=== PATIENT | female | born 1985 | race Caucasian/White ===

== ENCOUNTER 2019-11-11 14:47 | Outpatient (CLI) | payer OTHER, SELFPAY ==
--- NOTE | ~2019-11-11 | XR_ITS ---
XR chest 2V DATE: 11/11/2019 15:07 INDICATION: Abnormal breath sounds TECHNIQUE: PA and lateral views COMPARISON: None FINDINGS: Normal heart size. No hilar or mediastinal enlargement. No pulmonary infiltrate or consolid ation, pleural effusion or pulmonary vascular congestion or pneumothorax. IMPRESSION: No active cardiopulmonary disease Reviewed, dictated and finalized at location A.
== END 2019-11-11 14:48 | disposition home or self-care (01) ==
PROVIDERS: PCP Nurse Practitioner; Visit Provider Nurse Practitioner
DX: R06.89 Other abnormalities of breathing (principal)
CPT/HCPCS: 71046

== ENCOUNTER 2020-03-24 19:05 | Emergency (ER) | payer OTHER, SELFPAY ==
[2020-03-24 19:10] VITALS: BP 160/107; PULSE 107; RESP 16; TEMP 37.5; O2SAT 100
--- NOTE | 2020-03-24 19:11 | ED.SKABFB ---
HPI - Skin/Abscess/Foreign Bdy General Chief complaint: Skin/Abscess/Foreign Body Stated complaint: biters on arms Time Seen by Provider: 03/24/20 19:11 Source: patient Mode of arrival: ambulatory History of Present Illness HPI narrative: insect bites to arms and legs. Patient states she spent the night at a [employer] last night patient states she woke up the next morning with bug bites nonlinear to her arms and legs. Very itchy. Patient denies any shortness of breath no chest pain. Patient is taking Benadryl for the itchiness. MD complaint: insect bite/sting Location: generalized Related Data Home Medications Medication Instructions Recorded Confirmed albuterol sulfate 2 puff INHALATION QID PRN 03/24/20 03/24/20 atorvastatin 03/24/20 metformin 03/24/20 Allergies Allergy/AdvReac Type Severity Reaction Status Date / Time meperidine Allergy Unknown Rash Verified 03/24/20 19:23 sulfamethoxazole Allergy Unknown Unknown Verified 03/24/20 19:23 tramadol Allergy Unknown HIVES Verified 03/24/20 19:23 trimethoprim Allergy Unknown Unknown Verified 03/24/20 19:23 varenicline Allergy Unknown SWELLING Verified 03/24/20 19:23 IN THROAT metronidazole [From Flagyl] AdvReac Intermediate Nausea and Verified 03/24/20 19:24 Vomiting Review of Systems Review of Systems: Narrative: CONSTITUTIONAL: Denies fever, chills, or sweats. EYES: Denies visual changes, redness, or discharge. ENT: Denies rhinorrhea, congestion, sore throat, or otalgia. CARDIOVASCULAR: Denies chest pain, palpitations, or edema. RESPIRATORY: Denies cough or dyspnea. GASTROINTESTINAL: Denies abdominal pain, nausea, vomiting, or diarrhea. GENITOURINARY: Denies dysuria or hematuria. SKIN: Denies rash or itching. MUSCULOSKELETAL: Denies back pain, joint pain, or myalgia. NEUROLOGIC: Denies headache, numbness, or weakness. PSYCHIATRIC: Denies anxiety or depression. PMFSH Comments At time of signature, agree with nursing past medical, surgical, social and family history. There is no relevant family history pertinent to the presenting complaint Exam Narrative: Exam Narrative: GENERAL: Well-appearing, well-nourished, and in no acute distress. HEAD: Normocephalic, atraumatic. EYES: PERRLA and EOMI. ENT: Nares clear, no rhinorrhea or epistaxis. Mucous membranes moist. NECK: Supple. CHEST: Clear to auscultation. No respiratory distress. HEART: Regular rate and rhythm. No murmur heard. Normal peripheral pulses. ABDOMEN: Soft, nontender, nondistended, normal active bowel sounds. EXTREMITIES: Normal range of motion. No edema. SKIN: Warm, dry, no rash. Insect bites in a linear formation consistent with bedbug bites NEURO: No focal deficits. Alert and oriented x3. [place] Coma Scale Eye Opening: Spontaneous 4 [place] Coma Scale Motor: Obeys Commands 6 [place] Coma Scale Verbal: Oriented 5 [place] Coma Scale Total 15 Course Vital Signs Vital signs: Vital Signs Temperature 37.5 C 03/24/20 19:10 Pulse Rate 107 H 03/24/20 19:10 Respiratory Rate 16 03/24/20 19:10 Blood Pressure 160/107 H 03/24/20 19:10 Pulse Oximetry 100 03/24/20 19:10 Temperature 37.5 C 03/24/20 19:10 Pulse Rate 107 H 03/24/20 19:10 Respiratory Rate 16 03/24/20 19:10 Blood Pressure 160/107 H 03/24/20 19:10 Pulse Oximetry 100 03/24/20 19:10 Please MARGARITA schedule a followup visit with your personal physician for further evaluation and treatment. Including recheck and discussion of your blood pressure. If your symptoms persist, change or worsen significantly before you can contact your personal physician then please, without delay, go to the emergency department for further evaluation MDM - Skin/Abscess/Foreign Bdy Differential Diagnosis Differential diagnosis: Likely abscess of skin or subcutaneous tissue, viral exanthem, dermatophytosis, urticaria, herpes zoster, allergic reaction to drug, cellulitis, eczema, insect bites, impetigo and contact dermatitis Crit
== END 2020-03-24 19:32 | disposition home or self-care (01) ==
PROVIDERS: Emergency Provider Nurse Practitioner Family; PCP Nurse Practitioner
DX: S40.862A Insect bite (nonvenomous) of left upper arm, initial encounter (principal); S40.861A Insect bite (nonvenomous) of right upper arm, initial encounter; S80.862A Insect bite (nonvenomous), left lower leg, initial encounter; S80.861A Insect bite (nonvenomous), right lower leg, initial encounter; W57.XXXA Bitten or stung by nonvenomous insect and other nonvenomous arthropods, initial encounter; E78.00 Pure hypercholesterolemia, unspecified; I10 Essential (primary) hypertension; J45.909 Unspecified asthma, uncomplicated
CPT/HCPCS: 99213; G0463

== ENCOUNTER 2020-06-24 12:07 | Emergency (ER) | payer OTHER, SELFPAY ==
--- NOTE | ~2020-06-24 | XR_ITS ---
EXAMINATION: XR chest 1V portable DATE: 06/24/2020 12:35 INDICATION: COVID positive. Shortness of breath. TECHNIQUE: frontal view of the chest was obtained. COMPARISON: Chest radiograph dated 11/11/2019 FINDINGS: Small opacity at the lateral left lower lung zone. Right lung remains clear. No pulmonary edema, pleu ral effusion or pneumothorax. The cardiomediastinal silhouette is normal. Suggestion of coronary ariana ry stenting. IMPRESSION: 1. Small opacity at the left lower lung zone which could represent atelectasis or pneumonia. Reviewed, dictated and finalized at location A. [employer]
[2020-06-24 12:17] VITALS: BP 188/90; PULSE 125; RESP 22; O2SAT 96
--- NOTE | 2020-06-24 12:17 | ECG_ITS ---
Measurements Intervals [place] Rate: 116 P: 18 MT: 137 QRS: 9 QRSD: 93 T: -10 QT: 320 QTc: 445 Interpretive Statements SINUS TACHYCARDIA VOLTAGE CRITERIA FOR LVH BORDERLINE ST-T WAVE ABNORMALITY- ANTEROLAT/INF LEADS BASELINE WANDER- V2-V4 ABNORMAL ECG Electronically Signed On 06-24-2020 16:29:00 HEEL SLUGGER by Arnav Scott D.O.
--- NOTE | 2020-06-24 12:33 | ED.SOB ---
HPI - SOB/Dyspnea General Chief Complaint: Shortness of Breath/Dyspnea Stated Complaint: covid positive, shortness of breath Time Seen by Provider: 06/24/20 12:28 History of Present Illness HPI Narrative: 35 yo female presents to the Ed for COVID-19. She was recently diagnosed with COVID-19 and she is concerned that her symptoms are not improving. She reports cough, SOB, pleuritic chest pain, nausea, diarrhea and body aches. Related Data Home Medications Medication Instructions Recorded Confirmed albuterol sulfate 2 puff INHALATION QID PRN 03/24/20 03/24/20 atorvastatin 03/24/20 metformin 03/24/20 Allergies Allergy/AdvReac Type Severity Reaction Status Date / Time meperidine Allergy Unknown Rash Verified 03/24/20 19:23 sulfamethoxazole Allergy Unknown Unknown Verified 03/24/20 19:23 tramadol Allergy Unknown HIVES Verified 03/24/20 19:23 trimethoprim Allergy Unknown Unknown Verified 03/24/20 19:23 varenicline Allergy Unknown SWELLING Verified 03/24/20 19:23 IN THROAT metronidazole [From Flagyl] AdvReac Intermediate Nausea and Verified 03/24/20 19:24 Vomiting Review of Systems Review of Systems: All systems reviewed & are unremarkable except as noted in HPI and below (HPI and below) Constitutional: Constitutional: Denies fever(s) ENT: Denies dizziness Cardiovascular: Cardiovascular: Reports chest pain Respiratory: Respiratory: Reports chest congestion, Reports cough and Reports dyspnea Gastrointestinal: Gastrointestinal: Denies abdominal pain, Reports diarrhea and Reports nausea Genitourinary: Genitourinary: Denies dysuria Musculoskeletal: Musculoskeletal: Reports myalgias PMFSH Past Medical History Medical History (Updated 06/26/20 @ 15:32 by Dany Gaitan MD) Asthma Diabetes mellitus Social History Social History Gender identity (if verbalized by the patient): Female Exam Const: General: no acute distress, alert and ill appearing Nutritional Appearance: well nourished Orientation/consciousness: patient oriented x3 HENMT: Head: normal to inspection Neck: Neck: normal visual inspection Chest: Chest palpation & inspection: tenderness Resp: Effort & Inspection: normal respiratory effort Auscultation: clear to auscultation bilaterally Cardio: Rate: tachycardic Rhythm: regular rhythm Heart sounds: no murmurs GI: GI Palp: Yes Soft to palpation and No Tenderness to palpation present (GI) Skin: General skin exam: normal color Neuro: General: patient oriented x3, moves all extremities, no meningeal signs, no focal motor deficits and CN's II-XI intact bilaterally Speech: normal speech Gait exam (Neuro): Normal gait present Extrem: General: normal to inspection Psych: Affect: Anxious affect present Course Vital Signs Vital signs: Vital Signs Pulse Rate 125 H 06/24/20 12:17 Respiratory Rate 22 H 06/24/20 12:17 Blood Pressure 188/90 H 06/24/20 12:17 Pulse Oximetry 96 06/24/20 12:17 Pulse Rate 88 06/24/20 14:56 Respiratory Rate 18 06/24/20 14:56 Blood Pressure 123/90 06/24/20 14:56 Pulse Oximetry 99 06/24/20 14:56 MDM - SOB/Dyspnea MDM Narrative Medical decision making narrative: Vitals improved with treatment. She appears ill, but not toxic. She does not need hospitalization at this time. Differential Diagnosis Differential diagnosis: Likely community acquired pneumonia and other (COVID-19, dehydration, PE) Medical Records Attestation: I reviewed the patient's medical records. Lab Data Attestation: I reviewed the patient's lab results. Result diagrams: 06/24/20 12:37 06/24/20 12:37 Labs: Lab Results 06/24/20 06/24/20 Range/Units 12:37 12:37 WBC 4.8 (4.5-10.0) K/mm3 RBC 4.92 (4.2-5.4) M/mm3 Hgb 15.1 H (12.0-15.0) g/dL Hct 44.1 (37.0-47.0) % MCV 89.6 (80-100) fl MCH 30.7 (26-34) pg MCHC 34.2 (32-36) g/dl RDW 13.9 (11.5-14.5) % Plt Count 182 (150-375)
[2020-06-24 12:49] LABS: Basophils Percent Auto 0.2 % (0.2-1.2); Eosinophils Absolute Auto 0.1 K/mm3 (0-0.3); Eosinophils Percent Auto 1.2 % (0-4.4); Hematocrit 44.1 % (37.0-47.0); Hemoglobin 15.1 g/dL (12.0-15.0); Immature Granulocyte Absolute 0.02 K/mm3 (0.00-0.031); Immature Granulocyte Percent A 0.4 % (0-0.5); Immature Platelet Fraction Pct 2.3 % (0.9-11.2); Lymphocytes Percent Auto 35.2 % (18.3-44.2); Mean Corpuscular HGB Conc 34.2 g/dl (32-36); Mean Corpuscular Hemoglobin 30.7 pg (26-34); Mean Corpuscular Volume 89.6 fl (80-100); Mean Platelet Volume 9.9 fl (7.4-10.4); Monocytes Absolute Auto 0.5 K/mm3 (0.1-0.6); Monocytes Percent Auto 10.1 % (2.6-8.5); Neutrophils Absolute Auto 2.6 K/mm3 (1.3-6.7); Neutrophils Percent Auto 52.9 % (45.5-73.1); Platelet Count Result 182 k/mm3 (150-375); Red Blood Count 4.92 M/mm3 (4.2-5.4); Red Cell Distribution Width 13.9 % (11.5-14.5); White Blood Count 4.8 K/mm3 (4.5-10.0)
[2020-06-24 13:05] LABS: Anion Gap 11 mmol/L (8-16); Blood Urea Nitrogen 13 mg/dL (7-17); Carbon Dioxide 22 mmol/L (22-30); Chloride 105 mmol/L (98-107); Estimated CRCL calculation 143 ml/min; Estimated Glomerular Filt Rate > 60; Glucose 127 mg/dL (65-105); Sodium 138 mmol/L (137-145)
[2020-06-24 13:38] VITALS: BP 133/98; PULSE 107; PULSE 97; RESP 18; O2SAT 96
[2020-06-24] MEDS: KETOROLAC 30 MG/ML VIAL (*BKC) IV PUSH (13:38)
[2020-06-24] MEDS: SODIUM CHLORIDE 0.9% IV 1,000 ML 999 ML IV CONT (13:38)
[2020-06-24] MEDS: DEXTROMETHORPHAN POLISTIREX 60 MG/10 ML SYRINGE PO (14:20)
[2020-06-24 14:56] VITALS: BP 123/90; PULSE 88; RESP 18; O2SAT 99
== END 2020-06-24 14:57 | disposition home or self-care (01) ==
PROVIDERS: Emergency Medicine; Emergency Provider Emergency Medicine; PCP Nurse Practitioner
DX: U07.1 COVID-19 (principal); J45.909 Unspecified asthma, uncomplicated; E11.9 Type 2 diabetes mellitus without complications; R91.8 Other nonspecific abnormal finding of lung field; Z79.84 Long term (current) use of oral hypoglycemic drugs
CPT/HCPCS: 36415; 71045; 80048; 85025; 85055; 93005; 96361; 96365; 96375; 99284; A9270; J0131; J1885; J7030

== ENCOUNTER 2020-10-25 16:17 | Emergency (ER) | payer OTHER, SELFPAY ==
[2020-10-25 16:22] VITALS: BP 131/74; PULSE 92; RESP 20; TEMP 36.6; O2SAT 100
--- NOTE | 2020-10-25 16:22 | ED.GENADULT ---
HPI - General Adult General Chief complaint: Upper Respiratory Infection Stated complaint: knot on side of neck Time Seen by Provider: 10/25/20 16:34 Source: patient and RN notes reviewed Mode of arrival: ambulatory Limitations: no limitations History of Present Illness HPI narrative: 35-year-old female presents with concern for swollen lymph node on the right side of her neck. Reports symptoms for 2 to 3 days. Reports painful swallowing, scratchy neck. She denies cough, shortness of breath, fever, body aches, chills, sweats. Denies any known sick contacts. Reports she had Covid in June. Reports she has been taking Tylenol ibuprofen occasionally with mild relief. MD complaint: Swollen lymph node Related Data Home Medications Medication Instructions Recorded Confirmed albuterol sulfate 2 puff INHALATION QID PRN 03/24/20 03/24/20 metformin 03/24/20 pantoprazole PO 10/25/20 Allergies Allergy/AdvReac Type Severity Reaction Status Date / Time meperidine Allergy Unknown Rash Verified 10/25/20 16:23 sulfamethoxazole Allergy Unknown Unknown Verified 10/25/20 16:23 tramadol Allergy Unknown HIVES Verified 10/25/20 16:23 trimethoprim Allergy Unknown Unknown Verified 10/25/20 16:23 varenicline Allergy Unknown SWELLING Verified 10/25/20 16:23 IN THROAT metronidazole [From Flagyl] AdvReac Intermediate Nausea and Verified 10/25/20 16:23 Vomiting Review of Systems Review of Systems: Narrative: CONSTITUTIONAL: Denies malaise, chills, sweats, or fever. EYES: Denies visual changes, redness, or discharge. ENT: Denies rhinorrhea, congestion, sinus pain, otalgia. Reports scratchy throat, swollen lymph node on the right side. CARDIOVASCULAR: Denies chest pain, palpitations, or edema. RESPIRATORY: Denies cough or dyspnea. GASTROINTESTINAL: Denies abdominal pain, nausea, vomiting, diarrhea SKIN: Denies rash or itching. MUSCULOSKELETAL: Denies myalgia. NEUROLOGIC: Denies headache. All systems reviewed & are unremarkable except as noted in HPI and below PMFSH Past Medical History Medical History (Updated 10/25/20 @ 16:43 by Shira Kim NP) Asthma Diabetes mellitus Social History Social History Gender identity (if verbalized by the patient): Female Comments At time of signature, agree with nursing past medical, surgical, social and family history. There is no relevant family history pertinent to the presenting complaint Exam Narrative: Exam Narrative: GENERAL: Well-appearing, well-nourished, and in no acute distress. HEAD: Normocephalic EYES: PERRLA, conjunctivae clear ENT: Nares clear, turbinates erythematous, clear discharge. Mucous membranes moist. TM pearly bhatia with dull light reflex bilaterally; no tragal tenderness. Oropharynx not erythematous without lesions. Tonsils not enlarged and without exudate, no drooling, no hoarseness, no trismus, uvula midline. NECK: Supple. No lymphadenopathy CHEST: Clear to auscultation, breath sounds equal. No wheezing, rhonchi, rales, or stridor. No respiratory distress, speaks in full sentences. HEART: Regular rate and rhythm. No murmur heard. SKIN: Warm, dry, no rash. NEURO: Alert and oriented x3. PSYCH: Normal mood and affect Course Course Emergency Course: Patient is aware of diagnosis, understands and agrees to treatment plan. Anticipatory guidance given. Patient agrees to follow-up as directed and is aware of reasons to seek care at the emergency department. Portions of this record may have been created with voice recognition software Vital Signs Vital signs: Vital Signs Temperature 97.8 F 10/25/20 16:22 Pulse Rate 92 10/25/20 16:22 Respiratory Rate 20 10/25/20 16:22 Blood Pressure 131/74 10/25/20 16:22 Pulse Oximetry 100 10/25/20 16:22 Temperature 97.8 F 10/25/20 16:22 Pulse Rate 92 10/25/20 16:22 Respiratory Rate 20 10/25/20 16:22 Blood Pressure 131/74 10/25/20 16:22 Pulse Oximetry 100 10/25/20 16:22 Reviewed. M
== END 2020-10-25 16:46 | disposition home or self-care (01) ==
PROVIDERS: Emergency Provider Nurse Practitioner; PCP Nurse Practitioner
DX: R59.9 Enlarged lymph nodes, unspecified (principal); J45.909 Unspecified asthma, uncomplicated; E11.9 Type 2 diabetes mellitus without complications; Z86.16 Personal history of COVID-19
CPT/HCPCS: 87081; 87880; 99213; G0463

== ENCOUNTER 2021-01-15 14:47 | Outpatient (CLI) | payer OTHER, SELFPAY ==
--- NOTE | ~2021-01-15 | XR_ITS ---
EXAMINATION: XR wrist RT min 3V INDICATION: Right wrist pain TECHNIQUE: Four views of the right wrist are obtained. COMPARISON: 10/02/2015 FINDINGS: There is no fracture, dislocation, or subluxation. The bones, soft tissues, and joint space s are normal. IMPRESSION: 1. No acute osseous abnormality. Reviewed, dictated and finalized at location A.
== END 2021-01-15 14:48 | disposition home or self-care (01) ==
LOC: ANHIMG 14:55
DX: M25.531 Pain in right wrist (principal)
CPT/HCPCS: 73110

== ENCOUNTER 2021-03-18 12:58 | Emergency (ER) | payer OTHER, SELFPAY ==
--- NOTE | 2021-03-18 13:00 | ED.BACK ---
HPI - Back Pain/Injury General Chief Complaint: Back Pain/Injury Stated Complaint: back pain Time Seen by Provider: 03/18/21 13:00 Source: patient and RN notes reviewed History of Present Illness HPI Narrative: Patient is a 36-year-old female who presents the urgent care with complaints of back pain that started on Thursday. Patient denies of any fall or injury. States it does radiate down the left side. Patient has been taking her prescription NSAID. Denies of any history of sciatica. States that she fell asleep with her car seat reclined and woke up with the extreme pain. No other acute complaints. No acute distress noted. Patient aware of the plan of care. Some parts of this dictation were generated by voice recognition software and may contain typographical and/or grammatical inaccuracies. Related Data Home Medications Medication Instructions Recorded Confirmed albuterol sulfate 2 puff INHALATION QID PRN 03/24/20 10/25/20 metformin 500 mg PO BID 03/24/20 pantoprazole 40 mg PO DAILY 10/25/20 10/25/20 L norgest/e.estradiol-e.estrad 03/18/21 [Ashlyna] alprazolam 03/18/21 bupropion HCl 03/18/21 lisinopril 03/18/21 rosuvastatin 03/18/21 Allergies Allergy/AdvReac Type Severity Reaction Status Date / Time meperidine Allergy Unknown Rash Verified 10/25/20 16:23 sulfamethoxazole Allergy Unknown Unknown Verified 10/25/20 16:23 tramadol Allergy Unknown HIVES Verified 10/25/20 16:23 trimethoprim Allergy Unknown Unknown Verified 10/25/20 16:23 varenicline Allergy Unknown SWELLING Verified 10/25/20 16:23 IN THROAT metronidazole [From Flagyl] AdvReac Intermediate Nausea and Verified 10/25/20 16:23 Vomiting Review of Systems Review of Systems: CONSTITUTIONAL: Denies fever, chills, or sweats. EYES: Denies visual changes, redness, or discharge. ENT: Denies rhinorrhea, congestion, sore throat, or otalgia. CARDIOVASCULAR: Denies chest pain, palpitations, or edema. RESPIRATORY: Denies cough or dyspnea. GASTROINTESTINAL: Denies abdominal pain, nausea, vomiting, or diarrhea. GENITOURINARY: Denies dysuria or hematuria. SKIN: Denies rash or itching. MUSCULOSKELETAL: Reports of left-sided back pain rating down the left leg NEUROLOGIC: Denies headache, numbness, or weakness. All other systems reviewed are negative, except as documented in HPI. [facility] Past Medical History Medical History (Updated 03/18/21 @ 13:15 by ANA Wilson) Asthma Diabetes mellitus Social History Social History Gender identity (if verbalized by the patient): Female Comments At the time of my signature, I reviewed and agree with the nursing past medical, surgical, social, and family history. There is no relevant family history pertinent to the patient complaint. Exam Narrative: GENERAL: This is a well-nourished, well-developed patient, in no apparent distress. HEAD: normocephalic, atraumatic. EYES: PERRL. Sclera clear/white. Vision is grossly intact. EARS: External ears normal NOSE: External nose normal with no obvious nasal discharge, nares without redness, no rhinorrhea. THROAT: Mucous membranes moist NECK: Neck supple CARDIOVASCULAR: Regular rate and rhythm without murmurs, gallops, or rubs. RESPIRATORY: Clear to auscultation. Breath sounds equal bilaterally. No wheezes, rales, or rhonchi. SKIN: warm, intact with no suspicious lesions or rash, good texture and turgor. NEURO: awake, alert, and oriented to person, place and time. There were no obvious focal neurologic abnormalities. EXTREMITIES: No clubbing, cyanosis, or edema. BACK: Mild to moderate left-sided lumbar tenderness, tenderness over the left piriformis region, positive left SLE Course Vital Signs Vital signs: Vital Signs Temperature 97 F L 03/18/21 13:07 Pulse Rate 112 H 03/18/21 13:07 Respiratory Rate 16 03/18/21 13:07 Blood Pressure 157/93 H 03/18/21 13:07 Pulse Oximetry 99 03/18/21 13:07 Temperature 97 F L 03/18/21 13
[2021-03-18 13:07] VITALS: BP 157/93; PULSE 112; RESP 16; TEMP 36.1; O2SAT 99
== END 2021-03-18 13:30 | disposition home or self-care (01) ==
PROVIDERS: Emergency Provider Nurse Practitioner Family; PCP Family Medicine
DX: M54.32 Sciatica, left side (principal); J45.909 Unspecified asthma, uncomplicated; E11.9 Type 2 diabetes mellitus without complications
CPT/HCPCS: 99213; G0463

== ENCOUNTER 2021-05-04 09:32 | Outpatient (CLI) | payer OTHER, SELFPAY ==
--- NOTE | ~2021-05-04 | MR_ITS ---
. EXAMINATION: MR wrist RT wo con DATE: 05/04/2021 10:56 INDICATION: Right wrist pain. TECHNIQUE: Magnetic resonance imaging (MRI) of the wrist was performed without intravenous contrast. Sequences performed include coronal T1-weighted FSE, coronal PD-weighted FS FSE, axial PD-weighted FS FSE, axial PD-weighted FSE, sagittal PD-weighted FSE, and sagittal PD-weighted FS FSE. COMPARISON: Right wrist radiographs 01/15/2021 FINDINGS: Intrinsic ligaments: Scapholunate ligament and lunotriquetral ligament are intact. Triangular fibrocartilage complex (TFCC): There is a partial tear of triangular fibrocartilage involving the proximal surface. Extensor wrist: The extensor tendons are normal. Flexor wrist: The flexor tendons are normal. There is suboptimal fat saturation. There is increased PD-weighted sig nal intensity between the flexor tendons in the carpal tunnel. Median nerve is normal. Guyon's canal: Ulnar nerve is normal. Bones/other: Bone alignment is normal. No fracture. IMPRESSION: 1. Increased signal intensity between the flexor tendons in the carpal tunnel, likely inflammation. 2. Partial tear of triangular fibrocartilage. Reviewed, dictated and finalized at location A. ER DRIVER
== END 2021-05-04 09:33 | disposition home or self-care (01) ==
LOC: ANHIMG 09:37
PROVIDERS: PCP Family Medicine; Visit Provider Family Medicine
DX: M25.531 Pain in right wrist (principal)
CPT/HCPCS: 73221

== ENCOUNTER 2022-01-24 19:51 | Emergency (ER) | payer SELFPAY ==
--- NOTE | ~2022-01-24 | XR_ITS ---
EXAMINATION: XR hand RT min 3V DATE: 01/24/2022 20:12 INDICATION: Right hand pain post fall TECHNIQUE: Posteroanterior, oblique and lateral views of the right hand were obtained. COMPARISON: 10/02/2015 FINDINGS: Bone alignment is normal. No acute fracture. Interval healing of the right fourth proximal phalangeal fracture which is fixed with 2 screws and with no residual deformity. 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 IMPRESSION: 1. No acute osseous abnormality. Reviewed, dictated and finalized at location A.
--- NOTE | ~2022-01-24 | XR_ITS ---
EXAMINATION: XR knee RT min 4V DATE: 01/24/2022 20:12 INDICATION: Right knee pain post injury TECHNIQUE: Anteroposterior, 2 oblique and crosstable lateral views of the right knee were obtained COMPARISON: None. FINDINGS: Alignment is normal. No fracture. Joint spaces appear normal on nonweightbearing imaging. Bone islan d at the lateral femoral condyle. No joint effusion/layering lipohemarthrosis. Soft tissues are unrem arkable. IMPRESSION: 1. No right knee joint effusion or acute osseous abnormality. Reviewed, dictated and finalized at location A.
[2022-01-24 19:57] VITALS: BP 177/83; PULSE 101; RESP 16; TEMP 36.4; O2SAT 100
--- NOTE | 2022-01-24 21:00 | PC.NURSE ---
pt called to go back to a room, no answer. RN checked outside and in restroom.
--- NOTE | 2022-01-24 21:21 | PC.NURSE ---
RN again checked waiting room for pt, unable to locate.
== END 2022-01-24 21:21 | disposition left against medical advice (07) ==
PROVIDERS: Emergency Provider Nurse Practitioner Family; PCP Family Medicine
DX: S69.91XA Unspecified injury of right wrist, hand and finger(s), initial encounter (principal); W18.39XA Other fall on same level, initial encounter; S80.211A Abrasion, right knee, initial encounter; Y93.02 Activity, running
CPT/HCPCS: 73130; 73564; 99199

== ENCOUNTER 2022-03-16 15:56 | Emergency (ER) | payer OTHER, SELFPAY ==
--- NOTE | ~2022-03-16 | XR_ITS ---
XR toe 1st RT min 2V DATE: 03/16/2022 17:30 INDICATION: Dropped 20 pound filter on foot. Foot pain. TECHNIQUE: 3 views of right great toe COMPARISON: None FINDINGS: No recent fracture or dislocation is detected. IMPRESSION: Negative Reviewed, dictated and finalized at location A. IMPRESSION: Negative
--- NOTE | ~2022-03-16 | XR_ITS ---
XR toe 1st LT min 2V DATE: 03/16/2022 17:30 INDICATION: Dropped 20 pound filter on foot. Foot pain. TECHNIQUE: 3 views of great toe COMPARISON: None FINDINGS: No recent fracture or dislocation is detected. IMPRESSION: Negative Reviewed, dictated and finalized at location A. IMPRESSION: Negative
--- NOTE | ~2022-03-16 | XR_ITS ---
XR foot LT min 3V DATE: 03/16/2022 16:39 INDICATION: Dropped 20 pound filter on top of both feet on 03/11/2022. Bilateral foot pain. TECHNIQUE: 4 views COMPARISON: None FINDINGS: Cannot exclude subtle nondisplaced fracture of the distal phalanx of the great toe. If ther e is tenderness at this site, dedicated 4 view left great toe radiographic examination is recommended . Otherwise no fracture, dislocation, periosteal reaction or bone destruction is noted. Plantar and posterior calcaneal enthesopathy. IMPRESSION: Cannot exclude subtle nondisplaced distal phalangeal fracture of great toe; consider 4 vi ew left great toe radiographic evaluation if there is tenderness in this area. Reviewed, dictated and finalized at location A. IMPRESSION: Cannot exclude subtle nondisplaced distal phalangeal fracture of gr eat toe; consider 4 view left great toe radiographic evaluation if there is ten derness in this area.
--- NOTE | ~2022-03-16 | XR_ITS ---
XR foot RT min 3V DATE: 03/16/2022 16:40 INDICATION: Dropped 20 pound filter on top of the feet on 03/11/2022. Bilateral foot pain. TECHNIQUE: 4 views COMPARISON: None FINDINGS: Prominent plantar calcaneal enthesopathy. Mild posterior calcaneal enthesopathy. Questionable subtle nondisplaced fracture of the distal phalanx of the great toe at the metaphyseal a nd shaft area. If there is tenderness on the right great toe, dedicated 4 view right great toe radiog raphs are recommended for more definitive evaluation. Otherwise no recent fracture or dislocation, periosteal reaction or bone destruction is detected. Thelma nt spaces appear relatively well preserved. IMPRESSION: Cannot exclude metaphyseal and shaft fracture of distal phalanx of great toe; recommend c linical correlation for tenderness in this area. If further evaluation is indicated clinically, 4 vie w right great toe radiographic examination is recommended Reviewed, dictated and finalized at location A. IMPRESSION: Cannot exclude metaphyseal and shaft fracture of distal phalanx of great toe; recommend clinical correlation for tenderness in this area. If furth er evaluation is indicated clinically, 4 view right great toe radiographic exam ination is recommended
[2022-03-16 16:08] VITALS: BP 155/86; PULSE 96; RESP 14; TEMP 36.6; O2SAT 98
[2022-03-16 16:24] VITALS: BP 155/86; PULSE 96; RESP 14; TEMP 36.6; O2SAT 98
--- NOTE | 2022-03-16 17:12 | ED.GENADULT ---
HPI - General Adult General Chief complaint: Extremity Injury, Lower Stated complaint: Foot Injury/Right/Left Source: patient Mode of arrival: ambulatory Limitations: no limitations History of Present Illness HPI narrative: Patient presents for evaluation of pain in bilateral feet. She indicates she was working yesterday when a piece of equipment fell down onto her feet. She was wearing steel toed boots at that time. She now has pain in the proximal aspect of the some of both feet. She rates her pain 6 out of 10 in severity. No descriptive quality of the pain. No paresthesias. She has underlying diabetes but does not have peripheral neuropathy. She tried taking ibuprofen with some mild improvement in her symptoms thereafter. No additional complaints or concerns. Related Data Home Medications Medication Instructions Recorded Confirmed albuterol sulfate 90 mcg/actuation 2 puff inhalation QID PRN 03/24/20 03/16/22 aerosol inhaler Shortness Of Breath Or Wheezing metformin 500 mg PO BID 03/24/20 03/16/22 pantoprazole 40 mg tablet,delayed 40 mg PO DAILY 10/25/20 03/16/22 release L norgest/E estradiol-E estrad 1 tablet PO DAILY 03/16/22 03/16/22 0.15 mg-30 mcg (84)/10 mcg(7) tabs,3mos (Ashlyna) lisinopril 10 mg tablet 10 mg PO DAILY 03/16/22 03/16/22 rosuvastatin 20 mg tablet 20 mg PO DAILY 03/16/22 03/16/22 semaglutide 0.25 mg or 0.5 mg (2 0.25 mg subcut WEEKLY 03/16/22 03/16/22 mg/1.5 mL) subcutaneous pen injector (Ozempic) Allergies Allergy/AdvReac Type Severity Reaction Status Date / Time meperidine Allergy Unknown Rash Verified 03/16/22 16:21 sulfamethoxazole Allergy Unknown Unknown Verified 03/16/22 16:21 tramadol Allergy Unknown HIVES Verified 03/16/22 16:21 trimethoprim Allergy Unknown Unknown Verified 03/16/22 16:21 [email or web address] Allergy Unknown SWELLING Verified 03/16/22 16:21 IN THROAT metronidazole [From Flagyl] AdvReac Intermediate Nausea and Verified 03/16/22 16:21 Vomiting Review of Systems Review of Systems: CONSTITUTIONAL: Denies fever, chills, or sweats. EYES: Denies visual changes, redness, or discharge. ENT: Denies rhinorrhea, congestion, sore throat, or otalgia. CARDIOVASCULAR: Denies chest pain, palpitations, or edema. RESPIRATORY: Denies cough or dyspnea. GASTROINTESTINAL: Denies abdominal pain, nausea, vomiting, or diarrhea. GENITOURINARY: Denies dysuria or hematuria. SKIN: Reports bruising to bilateral feet MUSCULOSKELETAL: Reports bilateral foot pain. NEUROLOGIC: Denies headache, numbness, dizziness, or weakness. PSYCHIATRIC: Denies anxiety or depression. PMFSH Past Medical History Medical History (Updated 03/16/22 @ 17:55 by Jason Sanchez, [facility], ) Asthma Diabetes mellitus Surgical History Surgical History Hx of cholecystectomy Family History Family History Mother Hypertension Father Hypertension Hepatitis C Social History Social History (Updated 03/16/22 @ 17:18 by Jason Sanchez, [facility], ) Alcohol intake: never Substance use: never Living arrangements: with family Gender identity (if verbalized by the patient): Female Spiritual care concerns: No Exam Narrative: GENERAL: Well-appearing, well-nourished, and in no acute distress. HEAD: Normocephalic, atraumatic. EYES: PERRLA and EOMI. ENT: Nares clear, no rhinorrhea or epistaxis. Mucous membranes moist. Oropharynx without tonsillar hypertrophy exudate or other lesions. Bilateral TMs pearly bhatia nonbulging NECK: Supple. No adenopathy or masses. No carotid bruits or JVD CHEST: Clear to auscultation. No respiratory distress. No wheezes rales or rhonchi HEART: Regular rate and rhythm. No murmur heard. Normal peripheral pulses. ABDOMEN: Soft, nontender, nondistended, normal active bowel sounds. EXTREMITIES: Tenderness over dorsal aspect of proximal right foot
== END 2022-03-16 18:00 | disposition home or self-care (01) ==
PROVIDERS: Emergency Provider Nurse Practitioner
DX: S90.32XA Contusion of left foot, initial encounter (principal); S90.31XA Contusion of right foot, initial encounter; W20.8XXA Other cause of strike by thrown, projected or falling object, initial encounter; Y99.0 Civilian activity done for income or pay; J45.909 Unspecified asthma, uncomplicated; E11.9 Type 2 diabetes mellitus without complications
CPT/HCPCS: 73630; 73660; 99214; G0463

== ENCOUNTER 2022-09-17 19:55 | Emergency (ER) | payer OTHER, SELFPAY ==
[2022-09-17 20:08] VITALS: BP 151/95; PULSE 99; RESP 16; TEMP 36.4; O2SAT 98
--- NOTE | 2022-09-17 21:48 | ED.URI ---
HPI - URI/Sore Throat General Chief Complaint: Upper Respiratory Infection Stated Complaint: Sore Throat Time Seen by Provider: 09/17/22 21:48 Source: patient, RN notes reviewed and old records reviewed Mode of arrival: ambulatory Limitations: no limitations History of Present Illness HPI Narrative: 37 year old female accompanied by 2 children with complaints of sore throat,headache and head congestion for the past 4 days.Patient reports positive exposure to strep throat from family member. Patient reports that she has been taking Ibuprofen for her discomfort. MD elicited complaint: sore throat, rhinorrhea, nasal congestion and other (headache) Onset (ago): day(s) (4) Pain scale (0-10): 4 Able to tolerate fluids by mouth: Yes Treatments prior to arrival: ibuprofen Related Data Home Medications Medication Instructions Recorded Confirmed metformin 500 mg PO BID 03/24/20 09/17/22 pantoprazole 40 mg tablet,delayed 40 mg PO DAILY 10/25/20 09/17/22 release L norgest/E estradiol-E estrad 1 tablet PO DAILY 03/16/22 09/17/22 0.15 mg-30 mcg (84)/10 mcg(7) tabs,3mos (Ashlyna) lisinopril 10 mg tablet 10 mg PO DAILY 03/16/22 09/17/22 rosuvastatin 20 mg tablet 20 mg PO DAILY 03/16/22 09/17/22 semaglutide 0.25 mg or 0.5 mg (2 0.25 mg subcut WEEKLY 03/16/22 09/17/22 mg/1.5 mL) subcutaneous pen injector (Ozempic) sertraline 100 mg tablet 100 mg PO DAILY 09/17/22 09/17/22 tirzepatide 2.5 mg/0.5 mL See Rx Instructions .Route .COMPLEX 09/17/22 09/17/22 subcutaneous pen injector (Mounjaro) Allergies Allergy/AdvReac Type Severity Reaction Status Date / Time meperidine Allergy Unknown Rash Verified 09/17/22 20:58 sulfamethoxazole Allergy Unknown Unknown Verified 09/17/22 20:58 tramadol Allergy Unknown HIVES Verified 09/17/22 20:58 trimethoprim Allergy Unknown Unknown Verified 09/17/22 20:58 varenicline Allergy Unknown SWELLING Verified 09/17/22 20:58 IN THROAT metronidazole [From Flagyl] AdvReac Intermediate Nausea and Verified 09/17/22 20:58 Vomiting Review of Systems Review of Systems: CONSTITUTIONAL: Denies malaise, chills, sweats, or fever. EYES: Denies visual changes, redness, or discharge. ENT: Reports rhinorrhea, congestion, sinus pain, no otalgia positive for sore throat. CARDIOVASCULAR: Denies chest pain, palpitations, or edema. RESPIRATORY: Reports no cough.? Denies dyspnea. GASTROINTESTINAL: Denies abdominal pain, nausea, vomiting, diarrhea SKIN: Denies rash or itching. MUSCULOSKELETAL: Denies myalgia. NEUROLOGIC:reports headache. All systems reviewed & are unremarkable except as noted in HPI and below PMFSH Past Medical History Medical History (Updated 09/21/22 @ 12:57 by Glendy Sahu NP) Anxiety and depression Asthma Diabetes mellitus Elevated LDL cholesterol level Hypertension Surgical History Surgical History Hx of cholecystectomy Family History Family History Mother Hypertension Father Hypertension Hepatitis C Social History Social History (Updated 09/21/22 @ 12:52 by Glendy Sahu NP) Smoking status: Former smoker Alcohol intake: never Substance use: never Living arrangements: with family Gender identity (if verbalized by the patient): Female Spiritual care concerns: No Comments At time of signature, agree with nursing past medical, surgical, social and family history. There is no relevant family history pertinent to the presenting complaint Exam Narrative: GENERAL: Well-appearing, well-nourished, and in no acute distress. HEAD: Normocephalic EYES: PERRLA, conjunctivae clear ENT: Nares clear, turbinates edematous and erythematous, clear discharge. Mucous membranes moist. TM pearly bhatia with dull light reflex bilaterally; no tragal tenderness. Oropharynx erythematous without lesions. Tonsils red enlarged
== END 2022-09-17 22:08 | disposition home or self-care (01) ==
PROVIDERS: Emergency Provider Registered Nurse
DX: J03.90 Acute tonsillitis, unspecified (principal); Z20.818 Contact with and (suspected) exposure to other bacterial communicable diseases; Z87.891 Personal history of nicotine dependence; J45.909 Unspecified asthma, uncomplicated; E11.9 Type 2 diabetes mellitus without complications; E78.00 Pure hypercholesterolemia, unspecified; I10 Essential (primary) hypertension; F41.9 Anxiety disorder, unspecified; F32.A Depression, unspecified
CPT/HCPCS: 87081; 87880; 99213; G0463

== ENCOUNTER 2023-12-30 14:54 | Outpatient (CLI) | payer OTHER, SELFPAY ==
--- NOTE | ~2023-12-30 | XR_ITS ---
EXAMINATION: XR sacrum coccyx min 2V DATE: 12/30/2023 15:27 INDICATION: Right buttock pain. TECHNIQUE: 3 views of the sacrum and coccyx were obtained. COMPARISON: Pelvis radiograph 07/05/2018 FINDINGS: Bone alignment is normal. No fracture. There is mild osteoarthritis of the sacroiliac joint s. No evidence of inflammatory arthropathy. IMPRESSION: 1. Mild osteoarthritis of the sacroiliac joints. Reviewed, dictated and finalized at location E.
== END 2023-12-30 14:55 | disposition home or self-care (01) ==
DX: M79.18 Myalgia, other site (principal); M53.3 Sacrococcygeal disorders, not elsewhere classified
CPT/HCPCS: 72220

== ENCOUNTER 2024-03-26 18:16 | Emergency (ER) | payer OTHER, SELFPAY ==
[2024-03-26 18:22] VITALS: BP 136/89; PULSE 114; RESP 20; TEMP 36.3; O2SAT 100
--- NOTE | 2024-03-26 18:39 | ED.FEMALEGU ---
HPI - Female Genitourinary General Chief complaint: Urogenital-Female Stated complaint: Urinary Problem Time Seen by Provider: 03/26/24 18:30 Source: patient, RN notes reviewed and old records reviewed Mode of arrival: ambulatory Limitations: no limitations History of Present Illness HPI Narrative: 39-year-old female who presents to [facility] urinary symptoms for the past 2 days with bladder pressure, urgency, burning with urination, patient reports that today she noted blood when she wiped with urination. Patient reports that he has been drinking more water and also cranberry juice with no improvement in her symptoms. Patient reports that she has not had any fevers, chills or sweats but admits to some nausea. Patient reports that she has some right lower back pain,denies pain to CVA area, states some pain radiating to mid right abdomen at times. Patient reports that she does have stone in right kidney that has been there for some while. . MD elicited complaint: UTI Pertinent past history: other (UTI, kidney stone right kidney) Onset (ago): day(s) (2) Location of symptoms: low back and other (mid right abdomen) Severity scale (1-10): 4 Vaginal discharge: none Treatment prior to arrival: none Related Data Home Medications Medication Instructions Recorded Confirmed metformin 500 mg PO BID 03/24/20 09/17/22 pantoprazole 40 mg tablet,delayed 40 mg PO DAILY 10/25/20 09/17/22 release L norgest/E estradiol-E estrad 1 tablet PO DAILY 03/16/22 09/17/22 0.15 mg-30 mcg (84)/10 mcg(7) tabs,3mos (Ashlyna) rosuvastatin 20 mg tablet 20 mg PO DAILY 03/16/22 09/17/22 sertraline 100 mg tablet 100 mg PO DAILY 09/17/22 09/17/22 tirzepatide 2.5 mg/0.5 mL See Rx Instructions .Route .COMPLEX 09/17/22 09/17/22 subcutaneous pen injector (Romelia) Allergies Allergy/AdvReac Type Severity Reaction Status Date / Time meperidine Allergy Unknown Rash Verified 09/17/22 20:58 sulfamethoxazole Allergy Unknown Unknown Verified 09/17/22 20:58 tramadol Allergy Unknown HIVES Verified 09/17/22 20:58 trimethoprim Allergy Unknown Unknown Verified 09/17/22 20:58 varenicline Allergy Unknown SWELLING Verified 09/17/22 20:58 IN THROAT metronidazole [From Flagyl] AdvReac Intermediate Nausea and Verified 09/17/22 20:58 Vomiting Review of Systems Review of Systems: CONSTITUTIONAL: Denies fever, chills, or sweats. CARDIOVASCULAR: Denies chest pain, palpitations, or edema. RESPIRATORY: Denies cough or dyspnea. GASTROINTESTINAL: States some discomfort to right mid abdomen which radiates from back,positive for nausea,no vomiting, or diarrhea. GENITOURINARY: Reports dysuria, frequency, urgency. Denies flank pain positive for hematuria. SKIN: Denies rash or itching. MUSCULOSKELETAL: Right lower back pain or myalgia. Denies CVA tenderness NEUROLOGIC: Denies headache All systems reviewed & are unremarkable except as noted in HPI and below PMFSH Past Medical History Medical History Anxiety and depression Asthma Diabetes mellitus Elevated LDL cholesterol level Hypertension Surgical History Surgical History Hx of cholecystectomy Family History Family History Mother Hypertension Father Hypertension Hepatitis C Social History Social History Smoking status: Former smoker Alcohol intake: never Substance use: never Living arrangements: with family Gender identity (if verbalized by the patient): Female Spiritual care concerns: No Comments At time of signature, agree with nursing past medical, surgical, social and family history. There is no relevant family history pertinent to the presenting complaint Exam Narrative: GENERAL: Well-appearing, well-nourished, and in no acute distress. HEAD: Normoceph
[2024-03-26 18:47] LABS: EDUAAPPEAR Cloudy; EDUABILI 1+ (Negative); EDUABLOOD 3+ (Negative); EDUACOLOR1 Dark; EDUAGLUCOSE Negative (Negative); EDUAKETONE Trace (Negative); EDUALEUKO 1+ (Negative); EDUANITRATE Negative (Negative); EDUAPH 5.5; EDUAPROTEIN 2+ (Negative)
== END 2024-03-26 19:02 | disposition home or self-care (01) ==
PROVIDERS: Emergency Provider Registered Nurse
DX: N39.0 Urinary tract infection, site not specified (principal); R39.15 Urgency of urination; F41.8 Other specified anxiety disorders; E11.9 Type 2 diabetes mellitus without complications; I10 Essential (primary) hypertension; J45.909 Unspecified asthma, uncomplicated
CPT/HCPCS: 81003; 87086; 99213; G0463

== ENCOUNTER 2024-06-04 14:47 | Emergency (ER) | payer OTHER, SELFPAY ==
--- NOTE | ~2024-06-04 | XR_ITS ---
EXAM: XR hand RT min 3V DATE: 06/04/2024 15:16 HISTORY: selling/pain . COMPARISON: 01/24/2022. FINDINGS: Normal mineralization. No fracture or dislocation. No lytic or blastic lesion. Mild scatte red degenerative change. No erosion or periosteal change. Soft tissues within normal limits. Uncompli cated appearing fixation screws in the fourth proximal phalanx. IMPRESSION: No acute osseous finding in the right hand. Reviewed, dictated and finalized at location K. [employer]
[2024-06-04 14:51] VITALS: BP 124/75; PULSE 89; RESP 16; TEMP 36.5; O2SAT 100
--- NOTE | 2024-06-04 15:03 | ED.EXTPRO ---
HPI - Extremity Problem General Chief complaint: Extremity Problem,Nontraumatic Stated complaint: Right hand swollen and painful History of Present Illness HPI Narrative: Patient presents with right hand swelling and tenderness. Patient states she woke up this morning with a hand swollen does not recall any injury. No bruising noted no open areas noted normal range of motion no deformities noted Related Data Home Medications ?Medication ?Instructions ?Recorded ?Confirmed ?Last Taken ?Type metformin 500 mg PO BID 03/24/20 06/04/24 Unknown History tirzepatide 2.5 mg/0.5 mL See Rx Instructions .Route .COMPLEX 09/17/22 06/04/24 Unknown History subcutaneous pen injector (Mounjaro) acetaminophen 500 mg tablet mg 06/04/24 Unknown History atorvastatin .ROUTE 06/04/24 Unknown History lisinopril .ROUTE 06/04/24 Unknown History meloxicam .ROUTE 06/04/24 Unknown History metformin .ROUTE 06/04/24 Unknown History oxycodone 5 mg tablet mg 06/04/24 Unknown History Allergies Allergy/AdvReac Type Severity Reaction Status Date / Time meperidine Allergy Unknown Rash Verified 09/17/22 20:58 sulfamethoxazole Allergy Unknown Unknown Verified 09/17/22 20:58 tramadol Allergy Unknown HIVES Verified 09/17/22 20:58 trimethoprim Allergy Unknown Unknown Verified 09/17/22 20:58 varenicline Allergy Unknown SWELLING Verified 09/17/22 20:58 IN THROAT metronidazole (From Flagyl) AdvReac Intermediate Nausea and Verified 09/17/22 20:58 Vomiting Review of Systems Review of Systems: CONSTITUTIONAL: Denies fever, chills, or sweats. EYES: Denies visual changes, redness, or discharge. ENT: Denies rhinorrhea, congestion, sore throat, or otalgia. CARDIOVASCULAR: Denies chest pain, palpitations, or edema. RESPIRATORY: Denies cough or dyspnea. GASTROINTESTINAL: Denies abdominal pain, nausea, vomiting, or diarrhea. GENITOURINARY: Denies dysuria or hematuria. SKIN: Denies rash or itching. MUSCULOSKELETAL: Denies back pain, joint pain, or myalgia. NEUROLOGIC: Denies headache, numbness, or weakness. PSYCHIATRIC: Denies anxiety or depression. [facility] Past Medical History Medical History Anxiety and depression Asthma Diabetes mellitus Elevated LDL cholesterol level Hypertension Surgical History Surgical History Hx of cholecystectomy Family History Family History Mother Hypertension Father Hypertension Hepatitis C Social History Social History Smoking status: Former smoker Alcohol intake: never Substance use: never Living arrangements: with family Gender identity (if verbalized by the patient): Female Spiritual care concerns: No Comments At time of signature, agree with nursing past medical, surgical, social and family history. There is no relevant family history pertinent to the presenting complaint Exam Narrative: t exam CONSTITUTIONAL: Denies chills, or sweats. Reports fever and generalized body aches EYES: Denies visual changes, redness, or discharge. ENT: Denies otalgia. Reports nasal congestion runny nose and sore throat CARDIOVASCULAR: Denies chest pain, palpitations, or edema. RESPIRATORY: Denies dyspnea. Reports occasional cough GASTROINTESTINAL: Denies abdominal pain, nausea, vomiting, or diarrhea. GENITOURINARY: Denies dysuria or hematuria. SKIN: Denies rash or itching. MUSCULOSKELETAL: Denies back pain, joint pain, or myalgia. Reports generalized body aches HAND EXAM - Skin intact, no laceration, no swelling, no erythema, normal digit cascade with flexion of fingers, median nerve, ulnar nerve, radial nerve is intact. Normal sensation of each side of each finger, can perform `ok? sign, `cross over finger test of index and middle fingers? and `thumbs up? sign, normal thumb opposition, no scissoring. good capillary refill and radial pulse. normal flexion and extension of fingers and wrist. normal supination at wrist. Normal forearm and elbow exam. NEUROLOGIC: Denies headache, numbness, or weakness. PSYCHIATRIC: Denies anxiety or depression. Course Course Level of Care: Express Care Visit Vital Signs Vital signs: Vital Signs Temperature 36.5 C 06/04/24 14:51 Pulse Rate 89 06/04/24 14:51 Respiratory Rate 16 06/04/24 14:51 Pulse Oximetry 100 06/04/24 14:51 Oxygen Delivery Room Air 06/04/24 14:51 Temperature 36.5 C 06/04/24 14:51 Pulse Rate 89 06/04/24 14:51 Respiratory Rate 16 06/04/24 14:51 Pulse Oximetry 100 06/04/24 14:51 Oxygen Delivery Room Air 06/04/24 14:51 MDM - Extremity (Nontraumatic) Imaging Data Radiologist's impression: [facility] [address] [place] [id number] XRay Report Signed Patient: Lis Phelan : 1985 MR#: [id number] Age: 39 Acct:[id number] Loc: [facility] ADM Date: 06/04/24Attending Dr: Ordering Physician: Karine Torres APRN Date of Service: 06/04/24 Procedure(s): XR hand RT min 3V Accession Number(s): [id number] cc: Karine Torres APRN~ EXAM: XR hand RT min 3V DATE: 06/04/2024 15:16 HISTORY: selling/pain . COMPARISON: 01/24/2022. FINDINGS: Normal mineralization. No fracture or dislocation. No lytic or blastic lesion. Mild scattered degenerative change. No erosion or periosteal change. Soft tissues within normal limits. Uncomplicated appearing fixation screws in the fourth proximal phalanx. IMPRESSION: No acute osseous finding in the right hand. Discharge Plan Discharge Clinical Impression: Hand contusion, Hand pain, right Patient Disposition: Home, Self-Care Condition: Stable Additional Instructions: Ice to the area 20-30 minutes 4-6 times a day Elevate above heart Elastic wrap or orthopedic splint as directed for comfort for the next 5-7 days Tylenol for lesser pain Ibuprofen regularly for the next 2-3 days for the inflammation Follow-up with PCP if further problems or concerns -If you have any worsening of symptoms or any other concerns please go to the ED immediately. Patient Language: Swedish Prescriptions: No Action Mounjaro 2.5 mg/0.5 mL pen injector See Rx Instructions .ROUTE .COMPLEX Rx Instructions: as prescribed metformin 500 mg PO BID acetaminophen 500 mg tablet oxycodone 5 mg tablet metformin .ROUTE lisinopril .ROUTE atorvastatin .ROUTE meloxicam .ROUTE Follow-up/Referrals: PHYSICIAN NOT ON STAFF,NONSTAFF [Primary Care Provider] -
--- OUTSIDE RECORDS SUMMARY | 2024-06-08 20:15 | XMS_ITS | Clinical Summary ---
Author Organization [facility] Address [address] [place] [address] Care Team Providers Care Perinatal Coordinator Name Role Phone Sharath Tomas Primary Care Provider Unavail able Source Comments [facility],non-owned Affiliates and Associated Physician Practices is amultiple site organization consisting of ambulatory clinics and hospital sitesin [place] and [place]. This disclosure is being madepursuant to the Care Everywhere program and may not contain all information available regarding this patient. Last updated 18.[facility] Allergies Active Allergy Reactions Criticality Noted Date Comments Meperidine Swelling Low 07/08/2018 Metronidazole Nausea and/or Vomiting,Vomiting Medium 05/20/2017 Other reaction(s): Vomiting Tramadol Urticaria High 04/01/2017 Varenicline Anaphylaxis High 04/01/2017 Medications * Be aware that medications may not be up to date on this document. Alwaysverify current medications with the patient. Medication Sig Dispensed Refills Start Date End Date Status albuterol HFA (PROVENTIL;VENTOLIN;VA OAIR) 108 (90 Base) MCG/ACT inhaler Inhale 2 puffs by mouth every 6 hours 06/19/2020 Active ALPRAZolam (XANAX) 0.25 MG tablet Take 0.25 mg by mouth every 12 hours as needed 08/29/2019 Active buPROPion XL 24hr (WELLBUTRIN-XL) 150 MG tablet Take 150 mg by mouth every morning 07/20/2020 Active cetirizine (ZYRTEC) 10 MG tablet Take 10 mg by mouth once daily Active diclofenac potassium (CATAFLAM) 50 MG tablet Take 50 mg by mouth 2 times daily Active fluticasone propionate (FLONASE) 50 MCG/ACT nasal spray [place] 2 sprays into each nostril 2 times daily 07/20/2020 Active lisinopril (PRINIVIL; ZESTRIL) 10 MG tablet Take 10 mg by mouth once daily 07/20/2020 Active metFORMIN (GLUCOPHAGE) 500 MG tablet Take 500 mg by mouth 2 times daily with morning and evening meal 07/20/2020 Active pantoprazole EC (PROTONIX) 40 MG tablet Take 40 mg by mouth once daily 01/06/2020 Active rosuvastatin (CRESTOR) 40 MG tablet Take 40 mg by mouth once daily 07/20/2020 Active sertraline (ZOLOFT) 100 MG tablet Take 100 mg by mouth once daily 07/20/2020 Active oxyCODONE, immediate release, (ROXICODONE) 5 MG tablet Take 5 mg by mouth every 4 hours as needed For pain. 12/20/2020 Active levonorgestrel-ethinyl estradiol (SEASONIQUE) 0.15-0.03 &0.01 MG tablet Take 1 tablet by mouth once daily 12/11/2020 Active Active Problems Problem Noted Date Diagnosed Date Hyperlipidemia 07/08/2018 Mild intermittent asthma without complication Type 2 diabetes mellitus wit hout complication, without long-term current use of insulin 04/18/2016 Herpes simplex type 2 infection 04/16/2016 Asthma 05/31/2014 Overview (11/21/2020): Asthma Asthma Immunizations Name Administration Dates Next Due FLU VACCINE QUAD IIV4 SPLIT 0.25 ML IM 9,03/25/2018 INFLUENZA VACCINE, QUADR. (F LUZONE; FLULAVAL; FLUARIX; AFLURIA QUADRIVALENT; 6MO+), 0.5 ML (IIV4) 04/01/2017 PNEUMOCOCCAL PPSV23 11/05/2018 Social History Tobacco Use Types Packs/Day Years Used Date Smoking Tobacco: Never Smokeless Tobacco: Never Alcohol Use Standard Drinks/Week Comments Never 0 (1 standard drink = 0.6 oz pur e alcohol) Sex and Gender Information Value Date Recorded Sex Assigned at Not on file Gender Identity Not on file Sexual Orientation Not on file Last Filed Vital Signs Vital Sign Reading Time Taken Comments Blood Pressure 124/75 12/25/2020 8:51 AM CDT Pulse 90 12/25/2020 8:51 AM CDT Temperature 36.8 ??C (98.2 ??F) 12/25/2020 8:51 AM CD T Respiratory Rate - - Oxygen Saturation - - Inhaled Oxygen Concentration - - Weight 105.2 kg (232 lb) 12/25/2020 8:51 AM CDT Height 167.6 cm (5' 6 ) 12/25/2020 8:51 AM CDT Body Mass Index 37.45 12/25/2020 8:51 AM CDT Plan of Treatment Health Maintenance Due Date Last Done Comments PAP SMEAR 1985 HIV SCREENING 2001 HEPATITIS C SCREENING 01/26/2004 DIABETES-SERUM CREATININE 01/31/2004 DTAP/TDAP/TD VACCINES (1 - Tdap) 2005 HEPATITIS B VACCINE (1 of 3 - 19+ 3-dose series) 2005 PNEUMOCOCCAL VACCINE (2 of 2 - PCV) 11/06/2019 11/05/2018 DIABETES RETINOPATHY SCREENING 11/21/2020 DIABETES-FOOT EXAM WITH MONOFILAMENT 11/21/2020 DIABETES-HGB A1C 11/21/2020 DIABETES-NEPHROPATHY 11/21/2020 DEPRESSION SCREENING 06/22/2023 COVID-19 VACCINE (1 - 2023-2 5 season) 2024 INFLUENZA VACCINE (#1) 2024 9, 03/25/2018, 04/01/2017 ZOSTER VACCINE (1 of 2) 01/31/2036 HIB VACCINE Aged Out No longer eligi ble based on patient's age to complete this topic HPV VACCINE Aged Out No longer eligi ble based on patient's age to complete this topic MENINGOCOCCAL VACCINE Aged Out No kristel yimi eligible based on patient's age to complete this topic Care Teams Perinatal Coordinator Relationship Specialty Start Date End Date Sharath Tomas Update Information PCP - General 11/20/20
--- OUTSIDE RECORDS SUMMARY | 2024-06-08 20:15 | XMS_ITS | Encounter Summary ---
Author Organization [facility] Address [address] [place] [address] Care Team Providers Care Service Delivery Management Consultant Name Role Phone Sharath Tomas Primary Care Provider Unavail able Encounter Details Date Type Department Care Team (Late st Contact Info) Description 12/07/2020 Orders Only [facility] OTOLARYNGOLOGY [address], [address] [place] [address] Lili Gupta MD [facility] [place] [address] Essential hypertension, benign ; Pre-op testing Social History Tobacco Use Types Packs/Day Years Used Date Smoking Tobacco: Never Smokeless Tobacco: Never Alcohol Use Standard Drinks/Week Comments Never 0 (1 standard drink = 0.6 oz pur e alcohol) Sex and Gender Information Value Date Recorded Sex Assigned at Not on file Gender Identity Not on file Sexual Orientation Not on file documented as of this encounter Progress Notes * Freya Paulino LPN - 12/07/2020 10:56 AM CDT Verbal order per dr. gupta documented in this encounter Plan of Treatment Scheduled Orders Name Type Priority Associated Diagnoses Orde r Schedule BASIC METABOLIC PANEL (CALCIUM TOTAL) Lab Routine Essential hypertension, benign Pre-op testing Ordered: 12/07/2020 documented as of this encounter Visit Diagnoses Diagnosis Essential hypertension, benign- Primary Pre-op testing Preoperative examination, unspecified documented in this encounter Care Teams Service Delivery Management Consultant Relationship Specialty Start Date End Date Sharath Tomas Update Information PCP - General 11/20/20 documented as of this encounter
--- OUTSIDE RECORDS SUMMARY | 2024-06-08 20:15 | XMS_ITS | Clinical Summary ---
Author Organization [facility] Address [address] [place] [address] Phone Care Team Providers Care Electrical Fitter Name Role Phone Provider, Unknown Primary Care Provider Unavaila ble Allergies Active Allergy Reactions Criticality Noted Date Comments Varenicline Anaphylaxis High 05/20/2017 Metronidazole Nausea,Vomiting Medium 05/20/2017 Tramadol Hives Low 04/01/2017 Medications metFORMIN (GLUCOPHAGE) 500 MG Tablet Take by mouth. A ctive sertraline (ZOLOFT) 100 MG Tablet Take by mouth nightly. 7 Active venlafaxine (EFFEXOR-XR) 37.5 MG CAPSULE SR 24 HR Take by mouth nightly. 7 Active albuterol (PROVENTIL HFA, VENTOLIN HFA) 108 (90 Base) MCG/ACT Aerosol Solution take by inhalation. Active fenofibrate 160 MG Tablet Take by mouth. Activ e Etonogestrel (NEXPLANON SC) by Subcutaneous route. Active Cyanocobalamin (B-12 PO) Take by mouth. Activ e HYDROcodone-isacc taminophen (NORCO) 5-325 MG Tablet Take 1-2 Tabs by mouth every 4 hours as needed for Pain. 40 Tab 8 Active Additional Information Patient not taking.Reported on 06/19/2020 prochlorperazin e (COMPAZINE) 10 MG Tablet Take 1 Tab by mouth every 6 hours as needed for Nausea. 10 Tab 8 Active Additional Information Patient not taking.Reported on 06/19/2020 methylPREDNISol one (MEDROL DOSPACK) 4 MG Tablet Therapy Pack Use as directed. 1 Dose Pack 8 Active Additional Information Patient not taking.Reported on 06/19/2020 pantoprazole (PROTONIX) 40 MG Tablet Delayed Response Take 40 mg by mouth. 0 Active albuterol (ProAir HFA) 108 (90 Base) MCG/ACT Aerosol SolutionIndicat ions:Shortness of breath take 2 Puffs by inhalation every 4 hours as needed for Wheezing or Cough. 1 Inhaler 0 Active methylPREDNISol one (Medrol) 4 MG Tablet Therapy PackIndications :Shortness of breath Use as per instructions on package. 21 Tab 0 Active Active Problems No known active problems Family History Medical History Relation Name Comments Stroke Father Diabetes Mother Prediabetic High Cholesterol Mother Relation Name Status Comments Father Alive Mother Alive Social History Tobacco Use Types Packs/Day Years Used Date Smoking Tobacco: Former Cigarettes 1 14 0 02/07/2002 - 02/08/2016 Smokeless Tobacco: Never Tobacco Cessation:Counseling Given: Yes Alcohol Use Standard Drinks/Week Comments No 0 (1 standard drink = 0.6 oz pur e alcohol) Comments No Sex and Gender Information Value Date Recorded Sex Assigned at Not on file Legal Sex Female 10:03 AM ORTHOPEDIC PHYSICAL THERAPIST Gender Identity Not on file Sexual Orientation Not on file Last Filed Vital Signs Vital Sign Reading Time Taken Comments Blood Pressure 140/100 06/19/2020 2:08 PM ORTHOPEDIC PHYSICAL THERAPIST Pulse 113 06/19/2020 2:08 PM ORTHOPEDIC PHYSICAL THERAPIST Temperature 36.5 ??C (97.7 ??F) 06/19/2020 2:08 PM CS T Respiratory Rate 18 10/05/2017 3:42 PM CDT Oxygen Saturation 98% 06/19/2020 2:08 PM ORTHOPEDIC PHYSICAL THERAPIST Inhaled Oxygen Concentration - - Weight 111.6 kg (246 lb) 10/05/2017 3:42 PM CDT Height 167.6 cm (5' 6 ) 10/05/2017 3:42 PM CDT Body Mass Index 39.71 10/05/2017 3:42 PM CDT Plan of Treatment Health Maintenance Due Date Last Done Comments Hepatitis C Virus (HCV) Screening 1986 TdaP Immunization 1986 Hepatitis B Immunization (1 of 3 - 19+ 3-dose series) 2005 Pap Smear 2007 Cervical Cancer Screening (CCS) 01/31/2016 HPV/Cotest 01/31/2016 Influenza Immunization (#1) 02/21/202407/2018, 03/25/2018 SARS-COV-2 Immunization ( season) 2024 Respiratory Syncytial Virus (RSV) Immunization (Adult) (1 - 1-dose 75+ series) 2061 Meningococcal Immunization (ACWY) Aged Out No longer eligible b ased on patient's age to complete this topic Pneumococcal Immunization Combined Aged Out No longer eligible b ased on patient's age to complete this topic Rotavirus Immunization Aged Out No lo nger eligible based on patient's age to complete this topic Insurance [facility] Care Teams Electrical Fitter Relationship Specialty Start Date End Date Provider, Unknown UNKNOWN PCP - General 05/20/17
--- OUTSIDE RECORDS SUMMARY | 2024-06-08 20:15 | XMS_ITS | Referral Summary ---
Author Organization [facility] Address [address] [place] [address] Care Team Providers Care In Flight Technician Name Role Phone Sharath Tomas Primary Care Provider Unavail able Source Comments [facility],non-owned Affiliates and Associated Physician Practices is amultiple site organization consisting of ambulatory clinics and hospital sitesin [place], [place], [place] and [place]. This disclosure is being madepursuant to the Care Everywhere program and may not contain all information available regarding this patient. Last updated 18.[facility] Allergies Active Allergy Reactions Criticality Noted Date Comments Meperidine Swelling Low 07/08/2018 Metronidazole Nausea and/or Vomiting,Vomiting Medium 05/20/2017 Other reaction(s): Vomiting Tramadol Urticaria High 04/01/2017 Varenicline Anaphylaxis High 04/01/2017 Medications * Be aware that medications may not be up to date on this document. Alwaysverify current medications with the patient. Medication Sig Dispensed Refills Start Date End Date Status albuterol HFA (PROVENTIL;VENTOLIN;LA OAIR) 108 (90 Base) MCG/ACT inhaler Inhale [...] fluticasone propionate (FLONASE) 50 MCG/ACT nasal spray [place] 2 sprays into each nostril 2 times [...] 12/25/2020 8:51 AM CDT Plan of Treatment Not on file Care Teams In Flight Technician Relationship Specialty Start Date End Date Sharath Tomas Update Information PCP - General 11/20/20
--- OUTSIDE RECORDS SUMMARY | 2024-06-08 20:15 | XMS_ITS | Encounter Summary ---
Author Organization [facility] Address [address] [place] [address] Care Team Providers Care Paint Tinter Name Role Phone Tomas, Sharath Guillaume Primary Care Provider Unavail able Reason for Visit * Reason Comments Sinus Problem 1st pos sinus Encounter Details Date Type Department Care Team (Late st Contact Info) Description 12/25/2020 8:30 AM CDT Office Visit [facility] OTOLARYNGOLOGY [address], [address] [place] [address] Lili Martínez MD [address] [place] [address] Deviated nasal septum (Primary Dx); Hypertrophy of both inferior nasal turbinates Social History Tobacco Use Types Packs/Day Years Used Date Smoking Tobacco: Never Smokeless Tobacco: Never Alcohol Use Standard Drinks/Week Comments Never 0 (1 standard drink = 0.6 oz pur e alcohol) Sex and Gender Information Value Date Recorded Sex Assigned at Not on file Gender Identity Not on file Sexual Orientation Not on file documented as of this encounter Last Filed Vital Signs Vital Sign Reading [...] Mass Index 37.45 12/25/2020 8:51 AM CDT documented in this encounter Patient Instructions * Patient Instructions* Viji Rodriguez - 12/25/2020 8:51 AM CDT Thank you for visiting [facility] Otolaryngology - Head & Neck Surgery. We appreciate your confidence in allowing us to participate in your health care. You may receive a survey about your visit with us today. Making our patients happy isn???t just happy talk; it???s ourmission. Please tell us if we made the right impression on you- and how we can serve you better. Please SAVE the information below, it will assist you when it???s time for you to contact us. ??? To MAKE - CHANGE - CANCEL an office appointment If you become ill, need to be seen before your next scheduled appointment, or need to cancel or reschedule an appointment, please call our office at [phone] Thursday through Thursday from 8:30 am to4:30 pm. You can also request a routine appointment through your [employer] account. ??? Prescription Refills Contact your pharmacy to request all refills. The pharmacy will need to fax the request to us at . Please allow a minimum of 48-72 hours for your prescription to be completed. Your pharmacy will notify you when your prescription is ready to be picked up. ??? Medical Emergency / After Hours Contact Information If you have a medical emergency, please call 911 or go to the nearest emergency room. For urgent medical calls, which cannot wait until the office opens, please call the medical exchange at and ask the wire wrapper machine operator to page the ENT physician onion tier. *Caller ID blocking service will need to be turned off for your call to be returned. We also specialize in Hearing Aids, Allergy testing, swallowing disorders, voice problems, cancer diagnosis, and so much more. Visit our website at [email or web address] for information about our practice and an interactive health encyclopedia. documented in this encounter Progress Notes * Lili Martínez MD - 12/25/2020 8:30 AM CDT History of Present Illness 35 year old with a h/o HTN and septal deviation s/p septoplasty 07/15/2017 at [facility] in [place], [place]. She states shortly after surgery, she had recurrence of worsening septal obstruction. Patient reports lifelong history of nasal obstructive symptoms and hyposmia. Has trialed Flonase without alleviation of her symptoms. No exacerbating or alleviating factors for her obstruction. She has also developed intermittent epistaxis and nasal pain. We made the decision to go to the operating room and perform septoplasty with bilateral inferior turbinate reduction. We visualized extensively and were no longer able to see the previously noted floor of nose mass. Review of Systems A 12-system review of systems was obtained and negative except for: Nasal obstruction secondary to splints No past medical history on file. No past surgical history on file. Current Outpatient Medications Medication Sig Dispense Refill ??? albuterol HFA (PROVENTIL;VENTOLIN;PROAIR) 108 (90 Base) MCG/ACT inhaler Inhale 2 puffs by mouthevery 6 hours ??? ALPRAZolam (XANAX) 0.25 MG tablet Take 0.25 mg by mouth every 12 hours as needed ??? buPROPion XL 24hr (WELLBUTRIN-XL) 150 MG tablet Take 150 mg by mouth every morning ??? cetirizine (ZYRTEC) 10 MG tablet Take 10 mg by mouth once daily ??? diclofenac potassium (CATAFLAM) 50 MG tablet Take 50 mg by mouth 2 times daily ??? fluticasone propionate (FLONASE) 50 MCG/ACT nasal spray [place] 2 sprays into each nostril 2 times daily ? ? levonorgestrel-ethinyl estradiol (SEASONIQUE) 0.15-0.03 &0.01 MG tablet Take 1 tablet by mouth once daily ??? lisinopril (PRINIVIL; ZESTRIL) 10 MG tablet Take 10 mg by mouth once daily ??? metFORMIN (GLUCOPHAGE) 500 MG tablet Take 500 mg by mouth 2 times daily with morning and evening meal ??? oxyCODONE, immediate release, (ROXICODONE) 5 MG tablet Take 5 mg by mouth every 4 hours as needed For pain. ??? pantoprazole EC (PROTONIX) 40 MG tablet Take 40 mg by mouth once daily ??? rosuvastatin (CRESTOR) 40 MG tablet Take 40 mg by mouth once daily ??? sertraline (ZOLOFT) 100 MG tablet Take 100 mg by mouth once daily No current facility-administered medications for this visit. Allergies Allergen Reactions ??? Tramadol Urticaria ??? Varenicline Anaphylaxis ??? Metronidazole Nausea and/or Vomiting and Vomiting Other reaction(s): Vomiting ??? Meperidine Swelling Social History Tobacco Use ??? Smoking status: Never Smoker ??? Smokeless tobacco: Never Used Vaping Use ??? Vaping Use: Never used Substance Use Topics ??? Alcohol use: Never ??? Drug use: Never No family history on file. Vitals BP 124/75 Pulse 90 Temp 98.2 ??F (36.8 ??C) Ht 5' 6 (1.676 m) Wt 232 lb (105.2 kg) BMI 37.45 kg/m2 Physical Exam Constitutional: Alert, No acute Distress; Obese White/ female appears stated age. Neuro: cranial nerves III-XII grossly intact CV/Pulm: Normal respirations and peripheral pulses. Eyes: PERRL, EOMI Face/Skin: normal appearance, no lesions/masses Nose: patent bilaterally, much improved septal deviation, no perforation. Well reduced inferior turbinates bilaterally Mouth and oropharynx: symmetric tongue mobility Voice: strong MusculoSkeletal: moves all extremities well Assessment and Plan Nasal obstruction: Nasal airway much improved status post septoplasty and inferior turbinate reduction. Use nasal saline spray and irrigation as needed. Use antibiotic ointment to septum for the nextapproximately 2 weeks. Can return to full activity at 3 weeks postop. Followup in 4 months if needed. Floor of nose masses/sore: This was not visible in the operating room and patient has not had symptoms recently. If begins to have symptoms again she will return and we will address. All questions answered. documented in this encounter Plan of Treatment Not on file documented as of this encounter Visit Diagnoses Diagnosis Deviated nasal septum- Primary Hypertrophy of both inferior nasal turbinates Hypertrophy of nasal turbinates documented in this encounter Care Teams Paint Tinter Relationship Specialty Start Date End Date Sharath Tomas Update Information PCP - General 11/20/20 documented as of this encounter
--- OUTSIDE RECORDS SUMMARY | 2024-06-08 20:15 | XMS_ITS | Encounter Summary ---
Author Organization [facility] Address [address] [place] [address] Care Team Providers Care Pumper Hand Name Role Phone Tomas, Sharath M Primary Care Provider Unavail able Reason for Visit * Reason Comments Nose Problem Encounter Details Date Type Department Care Team (Late st Contact Info) Description 11/21/2020 2:45 PM CDT Office Visit [facility] Otolaryngology [address] [place] [address] [phone] Lili Martínez MD [address] [place] [address] DEPT [place] [address] Nasal obstruction (Primary Dx); Deviated nasal septum; Hypertrophy of both inferior nasal turbinates; Internal nasal lesion Social History Tobacco Use Types Packs/Day Years [...] Sign Reading Time Taken Comments Blood Pressure 155/95 11/21/2020 2:46 PM CDT Pulse 103 11/21/2020 2:46 PM CDT Temperature - - Respiratory Rate - - Oxygen Saturation - - Inhaled Oxygen Concentration - - Weight 105.2 kg (232 lb) 11/21/2020 2:46 PM CDT Height 167.6 cm (5' 6 ) 11/21/2020 2:46 PM CDT Body Mass Index 37.45 11/21/2020 2:46 PM CDT documented in this encounter Patient Instructions * Patient Instructions* Noemí Pace - 11/21/2020 2:55 PM CDT Thank you for visiting [facility] Otolaryngology - Head & Neck Surgery. We [...] an appointment, please call our office at [phone] Thursday through Thursday from 8:30 am to4:30 pm. You can also request a routine appointment through your [employer] account. ??? Prescription Refills Contact your pharmacy [...] the nearest emergency room. For urgent medical calls which cannot wait until the office opens, please call the medical exchangeat and ask the packer operator automatic to page the ENT physician mirror fabrication supervisor. *Caller ID blocking service will need to be turned off for your call to be returned. We also specialize in Hearing Aids, Allergy testing, swallowing disorders, voice problems, cancer diagnosis, and so much more. Visit our website at [email or web address] for information about our practice and an interactive health encyclopedia. documented in this encounter Progress Notes * Noemí Pace - 11/21/2020 2:45 PM CDT Review of Systems Lis reports the following:Nose: irritation * Sly Malcolm MD - 11/21/2020 2:37 PM CDT History of Present Illness: 35 year old with a h/o HTN and septal deviation s/p septoplasty 07/15/2017 at [facility] in [place], [place]. She states shortly after surgery, she had recurrence of worsening septal obstruction. Patient reports lifelong history of nasal obstructive symptoms and hyposmia. Has trialed Flonase without alleviation of her symptoms. No exacerbating or alleviating factors for her obstruction. She has also developed intermittent epistaxis and nasal pain over the last month. The pain is primarily along the anterior right septum. No recent CT scan. She has been on oral antibiotics as well as topical antibiotics without relief of symptoms. Review of Systems: A 12-system review of systems was performed and was negative except for: Lis reports the following:Nose: irritation No past medical history on file. PSH: has no past surgical history on file. Current Outpatient Medications Medication Sig Dispense Refill ??? albuterol HFA (PROVENTIL;VENTOLIN;PROAIR) 108 (90 Base) MCG/ACT inhaler Inhale 2 puffs by mouth ??? ALPRAZolam (XANAX) 0.25 MG tablet Take 0.25 mg by mouth every 12 hours as needed ??? buPROPion XL 24hr (WELLBUTRIN-XL) 150 MG tablet Take 150 mg by mouth ??? cetirizine (ZYRTEC) 10 MG tablet Take 10 mg by mouth once daily ??? diclofenac potassium (CATAFLAM) 50 MG tablet Take 50 mg by mouth 2 times daily ??? etonogestrel (NEXPLANON) 68 MG implant ??? fluticasone propionate (FLONASE) 50 MCG/ACT nasal spray [place] 2 sprays into each nostril 2 times daily ??? lisinopril (PRINIVIL; ZESTRIL) 10 MG tablet Take 10 mg by mouth once daily ??? metFORMIN (GLUCOPHAGE) 500 MG tablet Take 500 mg by mouth 2 times daily with morning and evening meal ??? pantoprazole EC (PROTONIX) 40 MG tablet Take 40 mg by mouth once daily ??? rosuvastatin (CRESTOR) 40 MG tablet Take 40 mg by mouth ??? sertraline (ZOLOFT) 100 MG tablet Take 100 mg by mouth once daily No current facility-administered medications for this visit. Allergies Tramadol, Varenicline, Metronidazole, and Meperidine Social History Tobacco Use ??? Smoking status: Never Smoker ??? Smokeless tobacco: Never Used Vaping Use ??? Vaping Use: Never used Substance Use Topics ??? Alcohol use: Never ??? Drug use: Never No family history on file. Physical Exam: Constitutional: Alert, No acute Distress; obese female who appears stated age Neuro:cranial nerves III-XII grossly intact CV/Pulm: Normal respirations and peripheral pulses. Eyes: PERRL, EOMI Face/Skin: normal appearance, no lesions/masses Ears: Right: Normal external Auditory canal, normal TM Left: Normal external Auditory canal, normal TM Nose: patent bilaterally, right septal deviation, Turbinates intact, Mucosal membranes intact; minimal improvement in nasal airflow with modified [place]; unable to visualize adequately posteriorly may proceed with endoscopy, see procedure note below Mouth and oropharynx: symmetric tongue mobility, no lesions/masses/ulcers Neck: supple, no lymphadenopathy, no masses Voice: strong MusculoSkeletal: moves all extremities well Procedure: Rigid Nasal Endoscopy Anesthesia: Bilateral Nasal Cavities sprayed with lidocaine and Neosynephrine Detail: Rigid nasal endoscopy performed bilaterally. Septum was deviated to the right anteriorly. Bilateral nasal cavity showed no polpys, purulence, or masses. Assessment and Plan: 1. Nasal obstruction: caused by combo of bilateral inferior turbinate hypertrophy and deviated nasal septum. Will proceed with revision septoplasty and inferior turbinate reduction. Risks and benefits were discussed including risk of septal perforation. Patient wishes to proceed. 2. Nasal pain: It appears she has a lesion along her right anterior septum. She will use antibiotics twice a day topically for the next 2 weeks. If there continues to be a lesion at the time of surgery we will excise and sent for pathology. All questions were answered. Sly Malcolm MD Otolaryngology-Head and Neck Surgery 11/21/20 I have seen and examined the patient with the resident and I agree with the findings and plan of care as documented by the resident. Note above attested by me. Additionally, the above note reflects a procedure that I performed. The resident surgeon assisted with the procedure and/or the procedural note. I, Lili Martínez MD, was present for, and participated in, the entirety of the procedure. Lili Martínez MD 11/21/2020 3:28 PM documented in this encounter Procedure Notes * Sly Malcolm MD - 11/21/2020 2:44 PM CDTAssociated Order(s): PROC SINUS ENDOSCOPY Procedure(s): RI NASAL ENDOSCOPY,DX Pre-Procedure Diagnose(s): Nasal obstruction Procedure: Rigid Nasal Endoscopy Anesthesia: Bilateral Nasal Cavities sprayed with lidocaine and Neosynephrine Detail: Rigid nasal endoscopy performed bilaterally. Septum was deviated to the right anteriorly. Bilateral nasal cavity showed no polpys, purulence, or masses. She has significant continued bilateral inferior turbinate hypertrophy with narrowing of the entire nasal cavity. Anteriorly on the right septum there is an exquisitely tender area with slight excoriation in the middle. Does not feel to be fluctuant. No external mass but possibly a small cystic submucosal mass. documented in this encounter Plan of Treatment Not on file documented as of this encounter Procedures Procedure Name Priority Date/Time Associated Diagnosis Comments RI NASAL ENDOSCOPY,DX Routine 11/21/2020 2:44 PM CDT Nasal obstruction documented in this encounter Results * RI NASAL ENDOSCOPY,DX (11/21/2020 2:44 PM CDT) Narrative Lili Martínez MD - 11/21/2020 2:44 PM CDT Lili Martínez MD ? 11/21/2020 ??3:27 PM Procedure: Rigid Nasal Endoscopy Anesthesia: Bilateral Nasal Cavities sprayed with lidocaine and Neosynephrine Detail: ??Rigid nasal endoscopy performed bilaterally. ??Septum was deviated to the right anteriorly. ??Bilateral nasal cavity showed no polpys, purulence, or masses. ??She has significant continued bilateral inferior turbinate hypertrophy with narrowing of the entire nasal cavity. ??Anteriorly on the right septum there is an exquisitely tender area with slight excoriation in the middle. ?? Does not feel to be fluctuant. ??No external mass but possibly a small cystic submucosal mass. Lili Martínez MD PROCEDURE/MINOR LILY GICAL ORDERABLES documented in this encounter Visit Diagnoses Diagnosis Nasal obstruction- Primary Other diseases of nasal cavity and sinuses Deviated nasal septum Hypertrophy of both inferior nasal turbinates Hypertrophy of nasal turbinates Internal nasal lesion Other diseases of nasal cavity and sinuses documented in this encounter Care Teams Pumper Hand Relationship Specialty Start Date End Date Sharath Tomas Update Information PCP - General 11/20/20 documented as of this encounter
--- OUTSIDE RECORDS SUMMARY | 2024-06-08 20:15 | XMS_ITS | Encounter Summary ---
Author Organization [facility] Care Team Providers Care Purchasing Engineer Name Role Phone Provider, Unknown Primary Care Provider Unavaila ble Encounter Details Date Type Department Care Team (Latest Contact Info) Description 06/19/2020 Travel Social History Tobacco Use Types Packs/Day Years Used Date Smoking Tobacco: Former Cigarettes 1 14 0 02/07/2002 - 02/08/2016 Smokeless Tobacco: Never Alcohol Use Standard Drinks/Week Comments No 0 (1 standard drink = 0.6 oz pur e alcohol) Comments No Sex and Gender Information Value Date Recorded Sex Assigned at Not on file Legal Sex Female 10:03 AM MORTGAGE LOAN PROCESSOR Gender Identity Not on file Sexual Orientation Not on file COVID-19 Exposure Response Date Recorded In the last month, have you been in contact with someone who was confirmed or suspected to have Coronavirus / COVID-19? Yes 06/19/2020 1:31 PM MORTGAGE LOAN PROCESSOR documented as of this encounter Plan of Treatment Not on file documented as of this encounter Visit Diagnoses Not on filedocumented in this encounter Additional Health Concerns Infection Onset Date Last Indicated Resolved Time COVID - 19 06/19/2020 06/19/2020 06/22/2020 1:49 PM MORTGAGE LOAN PROC[employer]OR COVID - 19 Confirmed 06/19/2020 06/19/2020 021 12:18 AM MORTGAGE LOAN PROCESSOR documented as of this encounter Care Teams Purchasing Engineer Relationship Specialty Start Date End Date Provider, Unknown UNKNOWN PCP - General 05/20/17 documented as of this encounter
--- OUTSIDE RECORDS SUMMARY | 2024-06-08 20:15 | XMS_ITS | Patient Health Summary ---
Author Organization [facility] Address [address] [place] [address] Care Team Providers Care Credit Balance Specialist Name Role Phone Sharath Tomas Primary Care Provider Unavail able Note from [facility],non-owned Affiliates and Associated Physician Practices is amultiple site organization consisting of ambulatory clinics and hospital sitesin [place], [place], [place] and [place]. This disclosure is being madepursuant to the Care Everywhere program and may not contain all information available regarding this patient. Last updated 18.[facility] Allergies * Meperidine(Swelling) -Low Criticality * Metronidazole(Nausea and/or Vomiting,Vomiting) -Medium Criticality * Tramadol(Urticaria) -High Criticality * Varenicline(Anaphylaxis) -High Criticality Medications * Be aware that medications may not be up to date on this document. Alwaysverify current medications with the patient. * albuterol HFA (PROVENTIL;VENTOLIN;PROAIR) 108 (90 Base) MCG/ACT inhaler (Started 06/19/2020) Inhale 2 puffs by mouth every 6 hours * ALPRAZolam (XANAX) 0.25 MG tablet(Started 08/29/2019) Take 0.25 mg by mouth every 12 hours as needed * buPROPion XL 24hr (WELLBUTRIN-XL) 150 MG tablet(Started 07/20/2020) Take 150 mg by mouth every morning * cetirizine (ZYRTEC) 10 MG tablet Take 10 mg by mouth once daily * diclofenac potassium (CATAFLAM) 50 MG tablet Take 50 mg by mouth 2 times daily * fluticasone propionate (FLONASE) 50 MCG/ACT nasal spray(Started 07/20/2020) [place] 2 sprays into each nostril 2 times daily * lisinopril (PRINIVIL; ZESTRIL) 10 MG tablet(Started 07/20/2020) Take 10 mg by mouth once daily * metFORMIN (GLUCOPHAGE) 500 MG tablet(Started 07/20/2020) Take 500 mg by mouth 2 times daily with morning and evening meal * pantoprazole EC (PROTONIX) 40 MG tablet(Started 01/06/2020) Take 40 mg by mouth once daily * rosuvastatin (CRESTOR) 40 MG tablet(Started 07/20/2020) Take 40 mg by mouth once daily * sertraline (ZOLOFT) 100 MG tablet(Started 07/20/2020) Take 100 mg by mouth once daily * oxyCODONE, immediate release, (ROXICODONE) 5 MG tablet(Started 12/20/2020) Take 5 mg by mouth every 4 hours as needed For pain. * levonorgestrel-ethinyl estradiol (SEASONIQUE) 0.15-0.03 &0.01 MG tablet (Started 12/11/2020) Take 1 tablet by mouth once daily Active Problems Problem Noted Date Diagnosed Date Hyperlipidemia 07/08/2018 Mild intermittent asthma without complication Type 2 diabetes mellitus wit hout complication, without long-term current use of insulin 04/18/2016 Herpes simplex type 2 infection 04/16/2016 Asthma 05/31/2014 Immunizations * FLU VACCINE QUAD IIV4 SPLIT 0.25 ML IM(Given 03/23/2019, 03/25/2018) * INFLUENZA VACCINE, QUADR. (FLUZONE; FLULAVAL; FLUARIX; AFLURIA QUADRIVALENT; 6MO+), 0.5 ML (IIV4)(Given 04/01/2017) * PNEUMOCOCCAL PPSV23(Given 11/05/2018) Social History Tobacco Use Types Packs/Day Years [...] Mass Index 37.45 12/25/2020 8:51 AM CDT Procedures * LAB RESULTS ORDER(Performed 12/18/2020) * [facility]AL ENDOSCOPY,DX(Performed 11/21/2020) Performed for Nasal obstruction Results * LAB RESULTS ORDER (12/18/2020) 12/18/2020 Narrative 12/18/2020 Ordered by an unspecified provider. Scanned Document LAB - THERAPEUTIC DR RECIO MONITORING ORDERABLES * [facility]AL ENDOSCOPY,DX (11/21/2020 2:44 PM CDT) Narrative [...] Lili Martínez MD PROCEDURE/MINOR LILY GICAL ORDERABLES Care Teams Credit Balance Specialist Relationship Specialty Start Date End Date Sharath Tomas Update Information PCP - General 11/20/20
--- OUTSIDE RECORDS SUMMARY | 2024-06-08 20:15 | XMS_ITS | Encounter Summary ---
Author Organization [facility] Address [address] [place] [address] Phone Care Team Providers Care Rn Case Manager Hospice Name Role Phone Provider, Unknown Primary Care Provider Unavaila ble Reason for Visit * Reason Comments Sore Throat Shortness of Breath Fatigue Nasal Congestion Encounter Details Date Type Department Care Team (Latest Contact Info) Description 06/19/2020 1:35 PM INDUSTRIAL MAINTENANCE MILLWRIGHT [facility]gent [facility] [address] [place] [address] Kelly Warren, BUSINESS CONTROLLER, SHAREPOINT ADMINISTRATOR [address] [place] [address] Sore throat (Primary Dx); Shortness of breath; COVID-19 Discharge Disposition: Discharged to home or Selfcare Social History Tobacco Use Types Packs/Day Years Used Date Smoking Tobacco: Former Cigarettes 1 14 0 02/07/2002 - 02/08/2016 Smokeless Tobacco: Never Alcohol Use Standard Drinks/Week Comments No 0 (1 standard drink = 0.6 oz pur e alcohol) Comments No Sex and Gender Information Value Date Recorded Sex Assigned at Not on file Legal Sex Female 10:03 AM INDUSTRIAL MAINTENANCE MILLWRIGHT Gender Identity Not on file Sexual Orientation Not on file COVID-19 Exposure Response Date Recorded In the last month, have you been in contact with someone who was confirmed or suspected to have Coronavirus / COVID-19? Yes 06/19/2020 1:31 PM INDUSTRIAL MAINTENANCE MILLWRIGHT documented as of this encounter Last Filed Vital Signs Vital Sign Reading Time Taken Comments Blood Pressure 140/100 06/19/2020 2:08 PM INDUSTRIAL MAINTENANCE MILLWRIGHT Pulse 113 06/19/2020 2:08 PM INDUSTRIAL MAINTENANCE MILLWRIGHT Temperature 36.5 ??C (97.7 ??F) 06/19/2020 2:08 PM CS T Respiratory Rate - - Oxygen Saturation 98% 06/19/2020 2:08 PM INDUSTRIAL MAINTENANCE MILLWRIGHT Inhaled Oxygen Concentration - - Weight - - Height - - Body Mass Index - - documented in this encounter Patient Instructions * Patient Instructions* Kelly Warren, MELONY, LENNIE - 06/19/2020 1:35 PM INDUSTRIAL MAINTENANCE MILLWRIGHT Images from the original note were not included. Coronavirus Disease 2019 (COVID-19): Caring for Yourself or Others If you or a household member have symptoms of COVID-19, follow these guidelines for preventing spread of the virus, and managing symptoms. If you think you have COVID-19 symptoms ?? Stay home. Call your healthcare provider and tell them you have symptoms of COVID-19. Do this before going to any hospital or clinic. Follow your provider's instructions. You may be advised to isolate yourself at home. This is called self-isolation. You may also be told to stay at least 6 feet from others to prevent the spread of COVID-19. This is called social distancing. ?? Stay away from work, school, and public places. Limit physical contact with family members. Limit visitors. Don't kiss anyone or share eating or drinking utensils. Clean surfaces you touch with disinfectant. This is to help prevent the virus from spreading. ?? If you need to cough or sneeze, do it into a tissue. Then throw the tissue into the trash. If you don't have tissues, cough or sneeze into the bend of your elbow. ?? Wear a cloth face mask around other people. During a public health emergency, medical face masksmay be reserved for healthcare workers. You may need to make a cloth face mask of your own. You michele this using a bandana, T-shirt, or other cloth. The CDC has instructions on how to make a face mask. Wear the mask so that it covers both your nose and mouth. ?? Don???t share food or personal items with people in your household. This includes items like eating and drinking utensils, towels, and bedding. ?? If you need to go to a hospital or clinic, expect that the healthcare staff will wear protectiveequipment such as masks, gowns, gloves, and eye protection. You may be advised to wait in or enter through a separate area. This is to prevent the possible virus from spreading. ?? Tell the healthcare staff about recent travel. This includes local travel on public transport. Staff may need to find other people you have been in contact with. ?? Follow all instructions the healthcare staff give you. If you have been diagnosed with COVID-19 ?? Stay home and start self-isolation. Don???t leave your home unless you need to get medical care.Don't go to work, school, or public areas. Don't use public transportation or taxis. ?? Follow all instructions from your healthcare provider. Call your healthcare provider???s office before going. They can prepare and give you instructions. This will help prevent the virus from spreading. ?? If you need to go to a hospital or clinic, expect that the healthcare staff will wear protectiveequipment such as masks, gowns, gloves, and eye protection. You may be advised to wait in or enter through a separate area. This is to prevent the possible virus from spreading. ?? Wear a face mask. This is to protect other people from your germs. If you are not able to wear amask, your caregivers should. During a public health emergency, medical face masks may be reserved for healthcare workers. You may need to make a cloth face mask of your own. You can do this using a bandana, T- shirt, or other cloth. The CDC has instructions on how to make a face mask. Wear the maskso that it covers both your nose and mouth. ?? Stay away from other people in your home. ?? Have no contact with pets and animals. ?? Don???t share food or personal items with people in your household. This includes items like eating and drinking utensils, towels, and bedding. ?? If you need to cough or sneeze, do it into a tissue. Then throw the tissue into the trash. If you don't have tissues, cough or sneeze into the bend of your elbow. ?? Wash your hands often. Self-care at home?? There is currently no vaccine or medicine approved to prevent the virus. The FDA has approved an antiviral medicine called remdesivir for people in the hospital. It is for people 12 years and older who weigh more than about 88 pounds (40 kgs). Remdesivir is approved only for people who need to be treated in the hospital. In certain cases, it may also be used for people younger than 12 years or who weigh less than about 88 pounds (40 kgs). Current treatment is mainly aimed at helping your body while it fights the virus. This is known as supportive care. For serious COVID-19, you may need to stay in the hospital. Supportive care includes: ?? Getting rest. This helps your body fight the illness. ?? Staying hydrated. Drinking liquids is the best way to prevent dehydration. Try to drink 6 to 8 glasses of liquids every day, or as advised by your provider. Also check with your provider about which fluids are best for you. Don't drink fluids that contain caffeine or alcohol. ?? Taking vtnv-vdj-poysogw (OTC) pain medicine. These are used to help ease pain and reduce fever. Follow your healthcare provider's instructions for which OTC medicine to use. If you've been in the hospital for suspected or confirmed COVID-19 and now are home, follow all of your healthcare team's instructions. This will include when it's OK to stop self-isolation. You may also get instructions on position changes to help your breathing, such as lying on your belly (pronepositioning). If you've had confirmed COVID-19, your healthcare team may ask you to consider donating your plasma. This is called COVID-19 convalescent plasma donation. Plasma from people fully recovered from COVID-19 may contain antibodies to help fight COVID-19 in people who are currently seriously ill with the disease. Experts don't know the safety of COVID-19 convalescent plasma or how well it works. Research continues. The FDA has approved it for emergency use in certain people with serious or life-threatening COVID-19. Home care for a sick person? Follow all instructions from healthcare staff. ?? Wash your hands often. ?? Wear protective clothing as advised. ?? Make sure the sick person wears a mask. If they can't wear a mask, don't stay in the same room with the person. If you must be in the same room, wear a face mask. When wearing a mask, make sure that it covers both the nose and mouth. ?? Keep track of the sick person???s symptoms. ?? Clean home surfaces often with disinfectant. This includes phones, kitchen counters, fridge doorhandle, bathroom surfaces, and others. ?? Don???t let anyone share household items with the sick person. This includes eating and drinkingtools, towels, sheets, or blankets. ?? Clean fabrics and laundry thoroughly. ?? Keep other people and pets away from the sick person. When you can stop self-isolation When you are sick with COVID-19, you should stay away from other people. This is called self-isolation. Your limits are different if you've had COVID-19 in the last 3 months but are fully recovered without symptoms and you have been exposed to someone with COVID-19. If you are symptom-free, you don't need to stay home away from others or be retested. The CDC doesn't recommend retesting unless you have symptoms of COVID-19 and your new symptoms can't be linked to another illness. Contact your healthcare provider if you have any questions. If you develop symptoms, stay home. If you had COVID-19 over 3 months ago and have been exposed again, treat it like you've never had COVID-19 and stay home, limit your contact with others, call your provider, and monitor for symptoms. If you are normally healthy, the CDC does not advise retesting for COVID-19 with nose-throat swabs.You can stop self-isolation when all 3 of these are true: 1. You have had no fever for at least 24 hours. This means no fever without medicine that reduces fever, such as acetaminophen, for at least 24 hours. 2. Your symptoms such as cough or trouble breathing have improved. 3. It has been at least 10 days since your first symptoms started. Talk with your healthcare provider before you leave home. Tell them if the 3 things above are true for you. They may tell you it???s OK to leave home. In some cases, your state or local area may havespecific advice. Your healthcare provider will tell you more.?? If you have a weak immune system and COVID-19, or if you've had severe COVID-19, your instructions on when to stop isolation will be somewhat different. Some conditions and treatments can cause a weak immune system. These include cancer treatment, bone marrow or organ transplants, and conditions such as HIV or other immune system disorders. You may be advised to stay home from 10 days to 20 days after your symptoms first started. Your healthcare provider may want to retest you for COVID-19. Follow your provider's instructions. When you return to public settings When you are well enough to go outside your home, consider the CDC's guidance on cloth face masks: ?? The CDC advises all people over age 2 to wear cloth face masks in public settings when around people outside of their household, especially when it's hard to socially distance. For example, wear aface mask in populated places such as public transit, public protests and marches, and crowded stores, bars, and restaurants. ?? Cloth masks may help prevent people who have COVID-19 form spreading the virus to others. ?? Cloth masks are most likely to reduce COVID-19 spread when masks are widely used by people who are out in the public. Certain people should not wear a face covering. This includes: ?? Children younger than 2 years old ?? Anyone with a health, developmental, or mental health condition that can be made worse by wearing a mask ?? Anyone who is unconscious or unable to remove the face covering without help. See the CDC's guidance on who should not wear a face mask. When to call your healthcare provider Call your healthcare provider right away if a sick person has any of these: ?? Trouble breathing ?? Pain or pressure in chest If a sick person has any of these, call 911: ?? Trouble breathing that gets worse ?? Pain or pressure in chest that gets worse ?? Blue tint to lips or face ?? Fast or irregular heartbeat ?? Confusion or trouble waking ?? Fainting or loss of consciousness ?? Coughing up blood Going home from the hospital If you were diagnosed with COVID-19 and were recently discharged from the hospital: ?? Follow the instructions above for self-care and isolation. ?? Follow the hospital healthcare team???s specific instructions. ?? Ask questions if anything is unclear to you. Write down answers so you remember them. Date last modified: 04/13/2020 Glo last reviewed this educational content on 09/21/2019 ?? 9617-7780 [employer]. All rights reserved. This information is not intended as a substitute for professional medical care. Always follow your healthcare professional's instructions. Care at Home ??Patients with suspected or confirmed Novel Coronavirus (COVID - 19) ?? Stay at home except to get urgent medical care or medical care as advised by your?? healthcare provider ? Do not go to work, school, or public places ? Avoid public transportation, ride sharing services (like Uber or Lyft) or taxis ?? Separate yourself from other people and animals in your home as much as possible ? Stay in a specific room with a separate bathroom, if possible, and away from others in your home ? Restrict contact with pets and other animals just like you would people ?? Call ahead before visiting your doctor ? Tell your healthcare provider you may have or do have Coronavirus (COVID-19) ?? Wear a face mask ? If you do need to visit your healthcare provider, put on facemask before entering healthcare providers office ?? Cover your cough and sneeze ? Throw tissues in the garbage can immediately ? Wash hands with soap and water for 20 seconds or hand section 8 property manager with 60-90% alcohol ?? Clean your hands often ? Use soap and water or hand section 8 property manager with 60% - 90% alcohol, covering all surfaces of your hands and rubbing them together until they feel dry ?? Avoid sharing personal household items ? Do not share dishes, drinking glasses, utensils, towels, or bedding with other people or pets in your home. After using these items, wash thoroughly with soap and water. Whenever possible wash laundry with hot water ?? Clean all high touch surfaces every day ? This includes counters, tabletops, doorknobs, fixtures, toilets, phones, keyboards, tablets, and bedside tables. Use a household cleaning spray or wipe according to label instructions ?? Monitor your symptoms ? Seek medical attention if you feel worse. Call office or hospital before leaving home Discontinuing Home Isolation? At least 3 days have passed since you recovered?Recovered?? is when you no longer have a fever without the use of fever- reducing medications and you have improvement in respiratory symptoms (e.g., cough, shortness of breath)? AND at least 10 days have passed since your symptoms first appeared?? For more information: https://www.cdc.gov/coronavirus/2019-ncov/hcp/hijuksxa-kpiivlb-jyuxnw.html?? Increase the amount of fluids that you are drinking. Water and gatorade or powerade are the best choices. Rest or nap frequently to help your body recover. Care as instructed on AVS If medication was prescribed it was sent to the pharmacy. Take all medication as prescribed. Do not skip a dose and take until completed. Follow up with PCP if the symptoms do not improve Go to the ER if symptoms become severe STRIAL MAINTENANCE MILLWRIGHT documented in this encounter Progress Notes * Any Guadalupe RN - 06/19/2020 1:35 PM CST Lis Phelan complains of Sore Throat This is a new problem. The current episode started in the past 7 days. Shortness of Breath Fatigue Nasal Congestion Today's ROS STRIAL MAINTENANCE MILLWRIGHT * Kelly Warren APN, CNP - 06/19/2020 1:35 PM CST Subjective: Lis Phelan is a 35 y.o. female in the prompt care today for sore throat. Symptoms started 4 days Severity of symptoms is mild Associated symptoms include congestion, fatigue and SOB Patient is currently taking over the counter nothing for the symptoms. Smoker: former Hx asthma No other pertinent Past, family, or social history was noted Review of Systems Constitutional: Positive for fatigue. Negative for chills and fever. HENT: Positive for congestion and sore throat. Respiratory: Positive for cough (infrequent nonproductive) and shortness of breath (on and off withand without exertion). Gastrointestinal: Positive for diarrhea and nausea. Negative for vomiting. Neurological: Positive for headaches. Objective: Physical Exam Vitals signs and nursing note reviewed. Constitutional: General: She is not in acute distress. Appearance: Normal appearance. She is normal weight. She is not ill-appearing. HENT: Head: Normocephalic and atraumatic. Mouth/Throat: Mouth: Mucous membranes are moist. Pharynx: Oropharynx is clear. Neck: Musculoskeletal: Normal range of motion and neck supple. Cardiovascular: Rate and Rhythm: Normal rate and regular rhythm. Heart sounds: Normal heart sounds. Pulmonary: Effort: Pulmonary effort is normal. No respiratory distress. Breath sounds: Normal breath sounds. Lymphadenopathy: Cervical: No cervical adenopathy. Skin: General: Skin is warm and dry. Neurological: Mental Status: She is alert and oriented to person, place, and time. Mental status is at baseline. Psychiatric: Mood and Affect: Mood normal. Behavior: Behavior normal. Thought Content: Thought content normal. Judgment: Judgment normal. Assessment and Plan See Diagnoses, Orders, Follow-up, and Instructions 1. Sore throat - POCT SARS ANTIGEN DONYA Positive 2. Shortness of breath - albuterol (ProAir HFA) 108 (90 Base) MCG/ACT Aerosol Solution; take 2 Puffs by inhalation every 4hours as needed for Wheezing or Cough. Dispense: 1 Inhaler; Refill: 0 - methylPREDNISolone (Medrol) 4 MG Tablet Therapy Pack; Use as per instructions on package. Dispense: 21 Tab; Refill: 0 3. COVID-19 Isolation guidelines discussed and [facility] COVID paper given. Increase PO fluids Increase rest AVS from today was printed, discussed with patient/family and given to patient/family STRIAL MAINTENANCE MILLWRIGHT documented in this encounter Plan of Treatment Not on file documented as of this encounter Procedures Procedure Name Priority Date/Time Associated Diagnosis Comments POCT SARS ANTIGEN DONYA Routine 06/19/2020 2:18 PM INDUSTRIAL MAINTENANCE MILLWRIGHT Sore throat documented in this encounter Results * (ABNORMAL) POCT SARS ANTIGEN DONYA (06/19/2020 2:18 PM INDUSTRIAL MAINTENANCE MILLWRIGHT) POC SARS ANTIGEN DONYA Positive(A) Negative POC SARS ANTIGEN DONYA CONTROL Hand Collator Pass Swab NASAL STRUCTURE / Unknown 06/19/2020 2:18 PM INDUSTRIAL MAINTENANCE MILLWRIGHT us Carla Kaba BUSINESS CONTROLLER, SHAREPOINT ADMINISTRATOR POINT OF CARE NICOLAS BENDER (MANUAL) Final Result documented in this encounter Visit Diagnoses Diagnosis Sore throat- Primary Acute pharyngitis Shortness of breath COVID-19 documented in this encounter Care Teams Rn Case Manager Hospice Relationship Specialty Start Date End Date Provider, Unknown UNKNOWN PCP - General 05/20/17 documented as of this encounter
--- OUTSIDE RECORDS SUMMARY | 2024-06-08 20:15 | XMS_ITS | Encounter Summary ---
Author Organization [facility] Address [address] [place] [address] Care Team Providers Care Supervisor Long Goods Name Role Phone Provider, Unknown Primary Care Provider Unavaila ble Encounter Details Date Type Department Care Team (Late st Contact Info) Description 06/28/2021 10:00 AM SHELL CORE AND MOLDING SUPERVISOR Rapid Evaluation [facility] Community Testing [facility] [address] [place] [address] Social History Tobacco Use Types Packs/Day Years Used Date Smoking Tobacco: Former Cigarettes 1 14 0 02/07/2002 - 02/08/2016 Smokeless Tobacco: Never Alcohol Use Standard Drinks/Week Comments No 0 (1 standard drink = 0.6 oz pur e alcohol) Comments No Sex and Gender Information Value Date Recorded Sex Assigned at Not on file Legal Sex Female 10:03 AM SHELL CORE AND MOLDING SUPERVISOR Gender Identity Not on file Sexual Orientation Not on file documented as of this encounter Plan of Treatment Not on file documented as of this encounter Visit Diagnoses Not on filedocumented in this encounter Care Teams Supervisor Long Goods Relationship Specialty Start Date End Date Provider, Unknown UNKNOWN PCP - General 05/20/17 documented as of this encounter
--- OUTSIDE RECORDS SUMMARY | 2024-06-08 20:15 | XMS_ITS | Data Portability ---
Author Organization [facility] Haresh HENSON Address [address] [place] [address] Assessment Encounter Date Assessment Date Assessment LastModified by Organization Details LastModified Time 08/31/2014 08/31/2014 irregular bleeding [email or web address] Not available 09/01/2014 12:12:48 Plan of Treatment Reminders Order Date Submit Date Provider Last Modified By Organization Details Last Modified Time Details Appointments None recorded. Lab bacterial vaginosis panel, vaginal 2014 015 [facility], [address] [place] [address], [address], [place], [address], 5 09:12:16 prolactin, serum 2014 015 [facility], [address] [place] [address], [address], [place], [address], 5 09:12:18 thyroid panel, serum 2014 015 [facility], [address] [place] [address], [facility] [address], [place], [address], 5 09:12:16 HCG, intact + beta subunit, quant, serum or plasma 2014 015 [facility], [address] [place] [address], [address], [place], [address], 5 09:12:17 test, urine 2015 016 [facility] In-Office Order, Internal Use Only DO Not Attach Compendium DO Not Attach Compendium, Do Not Delete/merge, [id number] 6 15:49:05 urinalysis, dipstick 2015 016 [facility] In-Office Order, Internal Use Only DO Not Attach Compendium DO Not Attach Compendium, Do Not Delete/merge, [id number] 6 15:49:05 HCG, intact + beta subunit, quant, serum or plasma 2015 016 [facility], [address], [address], [place], [address], 6 15:49:05 HbA1c (hemoglobin A1c), blood 2015 016 [facility], [address] [facility], [address], [place], [address], 6 15:49:05 lipid panel, serum 2015 016 [facility], [address] [facility] [address] [facility] [address], [place], [address], 6 15:49:05 pap, IG + reflex HR HPV (16+18) 2015 016 [facility], [address], [place], [address], 6 04:29:20 bacterial vaginosis + vaginitis panel, vaginal 2015 016 [facility], [address], [address], [place], [address], 6 04:29:28 HCG, intact + beta subunit, quant, serum or plasma 2015 016 [facility], [address], [address], [place], [address], 6 04:29:26 obstetric screen, serum or blood 2015 016 [facility], [address], [address], [place], [address], 6 04:29:16 urinalysis complete, reflex culture 2015 016 [facility], [address], [address], [place], [address], 6 04:29:28 HIV 1+2 AB + HIV 1 p24 Ag, qualitative immunoassay , serum 2015 016 [facility], [address], [address], [place], [address], 6 04:29:10 drug screen, urine 2015 016 [facility], [address], [address], [place], [address], 6 04:29:14 hemoglobin S (hbs), presence, blood 2015 016 [facility], [address], [address], [place], [address], 6 04:29:22 varicella-z cari igg Ab screen, serum 2015 016 [facility], [address], [address], [place], [address], 6 04:29:22 cf (cystic fibrosis) profile 2015 016 [facility], [address], [address], [place], [address], 6 04:29:27 hsv (1+2) igg, serum 2015 016 [facility], [address], [address], [place], [address], 6 04:29:28 urinalysis, dipstick 2015 016 In-Office Order, Internal Use Only DO Not Attach Compendium DO Not Attach Compendium, Do Not Delete/merge, [id number] 6 04:29:20 Referral None recorded. Procedures None recorded. Surgeries None recorded. Imaging US, obstetric, 1st trimester 2015 016 [facility], [address], [place], [address], 6 13:05:56 Medication Orders Vitamin tablet 2015 016 [facility], [address] [place] [address], [address], 6 15:49:05 folic acid 1 mg tablet 2015 016 [facility], [address] [place] [address], [address], 6 15:49:05 Patient TargetsNo targets recorded. Patient Instructions Encounter Date Encounter Id Patient Instructions Last Modified By Organization Details Last Modified Time 03/19/2016 [id number] edinburgh postna clara depression scale* [facility] Not available 03/24/2016 15:49:05 Patient was instructed to follow up for initial OB visit in 2 weeks. [facility] Not available 03/24/2016 15:49:06 Patient is here to establish care. 4mg Folic acid was recommended for prevention of NTDs. [facility] Consult was ordered. Will do a baseline 24hr urine, hemoglobin A1c, TSH, EKG next visit. Referral to the Food Adviser was initiated. okolade Not available 03/24/2016 15:49:05 04/02/2016 [id number] labs, vaginitis panel and pap smear was ordered. Will initiate Referral to [facility]. precautions were given. [email or web address] Not available 06/29/2016 14:17:44 Reason for Referral None Reported. Results Created Date Observation Date Name Description Value Unit Range Abnormal Flag Note LastModifiedBy Organization Detail LastModifiedTime 04/02/2016 urina lysis , dipst ick Leukocytes Small Not Available In-Offi ce Order Internal Use Only DO Not Attach Compendium DO Not Attach Compendium, Do Not Delete/merge, [id number] 04/02/2016 09:40:28 04/02/2016 urina lysis , dipst ick Nitrite negati ve Not Available In-Office Order Internal Use Only DO Not Attach Compendium DO Not Attach Compendium, Do Not Delete/merge, [id number] 04/02/2016 09:40:28 04/02/2016 urina lysis , dipst ick Urobilinogen .2 Not Available In-Of fice Order Internal Use Only DO Not Attach Compendium DO Not Attach Compendium, Do Not Delete/merge, [id number] 04/02/2016 09:40:28 04/02/2016 urina lysis , dipst ick Protein Negati ve Not Available In-Office Order Internal Use Only DO Not Attach Compendium DO Not Attach Compendium, Do Not Delete/merge, [id number] 04/02/2016 09:40:28 04/02/2016 urina lysis , dipst ick pH 7.0 Not Available In-Office Order Internal Use Only DO Not Attach Compendium DO Not Attach Compendium, Do Not Delete/merge, [id number] 04/02/2016 09:40:28 04/02/2016 urina lysis , dipst ick Blood Negati ve Not Available In-Office Order Internal Use Only DO Not Attach Compendium DO Not Attach Compendium, Do Not Delete/merge, [id number] 04/02/2016 09:40:28 04/02/2016 urina lysis , dipst ick Specific [place] 1.020 Not Available In-Off ice Order Internal Use Only DO Not Attach Compendium DO Not Attach Compendium, Do Not Delete/merge, 04/02/2016 09:40:28 04/02/2016 urina lysis , dipst ick Ketone Negati ve Not Available In-Office Order Internal Use Only DO Not Attach Compendium DO Not Attach Compendium, Do Not Delete/merge, 04/02/2016 09:40:28 04/02/2016 urina lysis , dipst ick Bilirubin Negati ve Not Available In-Office Order Internal Use Only DO Not Attach Compendium DO Not Attach Compendium, Do Not Delete/merge, 04/02/2016 09:40:28 04/02/2016 urina lysis , dipst ick Glucose Negati ve Not Available In-Office Order Internal Use Only DO Not Attach Compendium DO Not Attach Compendium, Do Not Delete/merge, 04/02/2016 09:40:28 04/02/2016 urina lysis , dipst ick Appearance Cloudy Not Available In-Offi ce Order Internal Use Only DO Not Attach Compendium DO Not Attach Compendium, Do Not Delete/merge, 04/02/2016 09:40:28 04/02/2016 urina lysis , dipst ick Color Dark Yellow Not Available In-Office Order Internal Use Only DO Not Attach Compendium DO Not Attach Compendium, Do Not Delete/merge, 04/02/2016 09:40:28 03/19/2016 urina lysis , dipst ick Leukocytes Trace Not Available In-Offi ce Order Internal Use Only DO Not Attach Compendium DO Not Attach Compendium, Do Not Delete/merge, 03/19/2016 09:07:18 03/19/2016 urina lysis , dipst ick Nitrite negati ve Not Available In-Office Order Internal Use Only DO Not Attach Compendium DO Not Attach Compendium, Do Not Delete/merge, 03/19/2016 09:07:18 03/19/2016 urina lysis , dipst ick Urobilinogen .2 Not Available In-Of fice Order Internal Use Only DO Not Attach Compendium DO Not Attach Compendium, Do Not Delete/merge, 03/19/2016 09:07:18 03/19/2016 urina lysis , dipst ick Protein Negati ve Not Available In-Office Order Internal Use Only DO Not Attach Compendium DO Not Attach Compendium, Do Not Delete/merge, 03/19/2016 09:07:18 03/19/2016 urina lysis , dipst ick pH 6.0 Not Available In-Office Order Internal Use Only DO Not Attach Compendium DO Not Attach Compendium, Do Not Delete/merge, 03/19/2016 09:07:18 03/19/2016 urina lysis , dipst ick Blood Negati ve Not Available In-Office Order Internal Use Only DO Not Attach Compendium DO Not Attach Compendium, Do Not Delete/merge, 03/19/2016 09:07:18 03/19/2016 urina lysis , dipst ick Specific [place] 1.025 Not Available In-Off ice Order Internal Use Only DO Not Attach Compendium DO Not Attach Compendium, Do Not Delete/merge, 03/19/2016 09:07:18 03/19/2016 urina lysis , dipst ick Ketone Negati ve Not Available In-Office Order Internal Use Only DO Not Attach Compendium DO Not Attach Compendium, Do Not Delete/merge, 03/19/2016 09:07:18 03/19/2016 urina lysis , dipst ick Bilirubin Negati ve Not Available In-Office Order Internal Use Only DO Not Attach Compendium DO Not Attach Compendium, Do Not Delete/merge, 03/19/2016 09:07:18 03/19/2016 urina lysis , dipst ick Glucose Negati ve Not Available In-Office Order Internal Use Only DO Not Attach Compendium DO Not Attach Compendium, Do Not Delete/merge, 03/19/2016 09:07:18 03/19/2016 urina lysis , dipst ick Appearance Cloudy Not Available In-Offi ce Order Internal Use Only DO Not Attach Compendium DO Not Attach Compendium, Do Not Delete/merge, 03/19/2016 09:07:18 03/19/2016 urina lysis , dipst ick Color Yellow Not Available In-Office Order Internal Use Only DO Not Attach Compendium DO Not Attach Compendium, Do Not Delete/merge, [id number] 03/19/2016 09:07:18 03/19/2016 pregn skip test, urine HCG positi ve Not Available In-Office Order Internal Use Only DO Not Attach Compendium DO Not Attach Compendium, Do Not Delete/merge, [id number] 03/19/2016 09:07:18 03/19/2016 edinb urgh postn atal depre ssion scale * Score 5 Not Available In-Office Order Internal Use Only DO Not Attach Compendium DO Not Attach Compendium, Do Not Delete/merge, [id number] 03/19/2016 09:07:18 09/01/19 15 09/01/2014 thyro id panel , serum TSH 1.550 uIU/m L 0.450- 4.500 Not Available [facility] ([facility]) [address] [place], [address], 09/04/2014 09:12:15 09/01/1909/01/2014 thyro id panel , serum thyroxine (T4) 9.4 ug/dL 4.5-12 .0 Not Available [facility] ([facility]) [address] [place], [address], 09/04/2014 09:12:15 09/01/1909/01/2014 thyro id panel , serum T3 uptake 26 % 24-39 Not Available [facility] ([facility]) [address] [place], [address], 09/04/2014 09:12:15 09/01/1909/01/2014 thyro id panel , serum free thyroxine index 2.4 1.2-4. 9 Not Available [facility] ([facility]) [address] [place], [address], 09/04/2014 09:12:15 09/01/1909/04/2014 bacte rial vagin osis panel , vagin al atopobium vaginae HIGH - 2 score abnormal Not Available [facility] ([facility]) [address] [place], [address], 09/04/2014 09:12:16 09/01/19 15 09/04/2014 bacte rial vagin osis panel , vagin al bvab 2 LOW - 0 score Not Available [facility] ([facility]) [address] [facility], [place], [address], 09/04/2014 09:12:16 09/01/1909/04/2014 bacte rial vagin osis panel , vagin al megasphaera 1 HIGH - 2 score abnormal CALCU LATE TOTAL SCORE BY DEANA Keen THE 3 INDIV IDUAL BACTE RIAL VAGIN OSIS (BV) MARKE R SCORE S TOGET HER. TOTAL SCORE IS INTER PRETE D FOLLO WS: . TOTAL SCORE 0-1: INDIC ATES THE ABSEN CE OF BV. TOTAL SCORE 2: INDET ERMIN ATE FOR BV. ADDIT IONAL CLINI OZIEL DATA SHOUL D BE EVALU ATED TO ESTAB FALLON A DIAGN OSIS. TOTAL SCORE 3-6: INDIC ATES THE PRESE NCE OF BV. . THIS TEST WAS DEVEL OPED AND ITS PERFO RMANC E LATHA CTERI STICS DETER MINED BY [facility]. IT HAS NOT BEEN CLEAR ED OR APPRO HERB BY THE FOOD AND DRUG ADMIN ISTRA TION. THE FDA HAS DETER MINED THAT SUCH CLEAR ANCE OR APPRO LAZARO IS NOT NECES TI. Not Available [facility] ([facility]) [address] [facility], [place], [address], 09/04/2014 09:12:16 09/01/1909/01/2014 HCG, intac t + beta subun it, quant , serum or plasm a HCG,beta subunit,qnt, serum <1 mIU/m L FEMAL E (NON- PREGN ANT) 0 - 5 (POST MENOP AUSAL ) 0 - 8 . FEMAL E (PREG NANT) WEEKS OF GESTA TION 3 6 - 71 4 10 - 395 5 553 - 3079 6 204 - 17236 7 0460 -0189 63 8 04207 -5320 71 9 70976 -5453 10 10 69617 -3218 77 12 24529 -2410 12 14 95603 - 82430 15 55781 - 60913 16 6097 - 85058 17 3495 - 06214 18 7829 - 67711 GALO ECLIA METHO DOLOG Y Not Available [facility] ([facility]) [address] [facility], [place], [address], 09/04/2014 09:12:17 09/01/19 15 09/01/2014 prola ctin, serum prolactin 6.8 NG/mL 4.8-23 .3 Not Available [facility] ([facility]) [address] [place], [address], 09/04/2014 09:12:18 03/19/20 16 03/20/2016 lipid panel , serum cholesterol, total 221 mg/dL 100-19 9 above high normal Not Available [facility] ([facility]) [address] [place], [address], 03/20/2016 07:19:01 03/19/20 16 03/20/2016 lipid panel , serum triglyceride s 89 mg/dL 0-149 Not Available [facility] ([facility]) [address] [place], [address], 03/20/2016 07:19:01 03/19/2003/20/2016 lipid panel , serum HDL cholesterol 65 mg/dL >39 ACCOR DING TO ATP-I II GUIDE LINES , HDL-C >59 MG/DL IS CONSI DERED A NEGAT STEPHANIE RISK FACTO R FOR CHD. Not Available [facility] ([facility]) [address] [place], [address], 03/20/2016 07:19:01 03/19/2003/20/2016 lipid panel , serum VLDL cholesterol oziel 18 mg/dL 5-40 Not Available [facility] ([facility]) [address] [place], [address], 03/20/2016 07:19:01 03/19/2003/20/2016 lipid panel , serum LDL cholesterol calc 138 mg/dL 0-99 above high normal Not Available [facility] ([facility]) [address] [facility], [place], [address], 03/20/2016 07:19:01 03/19/20 16 03/20/2016 lipid panel , serum comment: PRODUCT SAFETY MANAGER Not Available [facility] ([facility]) [address] [facility], [place], [address], 03/20/2016 07:19:01 03/19/20 16 03/20/2016 HbA1c (hemo globi n A1c), blood hemoglobin A1C 5.9 % 4.8-5. 6 above high normal PRE-D IABET ES: 5.7 - 6.4 DIABE NICOLAS: >6.4 GLYCE ANABEL CONTR OL FOR ADULT S WITH DIABE NICOLAS: <7.0 Not Available [facility] ([facility]) [address] [facility], [place], [address], 03/20/2016 07:19:02 03/19/20 16 03/20/2016 HCG, intac t + beta subun it, quant , serum or plasm a HCG,beta subunit,qnt, serum 30810 mIU/m L FEMAL E (NON- PREGN ANT) 0 - 5 (POST MENOP AUSAL ) 0 - 8 FEMAL E (PREG NANT) WEEKS OF GESTA TION 3 6 - 71 4 10 - 750 5 217 - 7138 6 158 - 39109 7 6677 -1635 63 8 23896 -6048 71 9 93194 -1974 10 10 56652 -1851 77 12 42275 -7906 12 14 93033 - 46269 15 56683 - 57318 16 4512 - 74600 17 8376 - 45057 18 4535 - 03291 GALO ECLIA METHO DOLOG Y Not Available [facility] ([facility]) [address] [facility], [place], [address], 03/20/2016 07:19:02 04/02/20 16 04/04/2016 bacte rial vagin osis + vagin itis panel , vagin al atopobium vaginae HIGH - 2 score abnormal Not Available [facility] ([facility]) [address] [facility], [place], [address], 04/04/2016 16:22:04 04/02/20 16 04/04/2016 bacte rial vagin osis + vagin itis panel , vagin al bvab 2 LOW - 0 score Not Available [facility] ([facility]) [address] [facility], [place], [address], 04/04/2016 16:22:04 04/02/20 16 04/04/2016 bacte rial vagin osis + vagin itis panel , vagin al megasphaera 1 HIGH - 2 score abnormal CALCU LATE TOTAL SCORE BY DEANA Keen THE 3 INDIV IDUAL BACTE RIAL VAGIN OSIS (BV) MARKE R SCORE S TOGET HER. TOTAL SCORE IS INTER PRETE D FOLLO WS: TOTAL SCORE 0-1: INDIC ATES THE ABSEN CE OF BV. TOTAL SCORE 2: INDET ERMIN ATE FOR BV. ADDIT IONAL CLINI OZIEL DATA SHOUL D BE EVALU ATED TO ESTAB FALLON A DIAGN OSIS. TOTAL SCORE 3-6: INDIC ATES THE PRESE NCE OF BV. THIS TEST WAS DEVEL OPED AND ITS PERFO RMANC E LATHA CTERI STICS DETER MINED BY [facility]. IT HAS NOT BEEN CLEAR ED OR APPRO HERB BY THE FOOD AND DRUG ADMIN ISTRA TION. THE FDA HAS DETER MINED THAT SUCH CLEAR ANCE OR APPRO LAZARO IS NOT NECES TI. Not Available [facility] ([facility]) [address] [facility], [place], [address], 04/04/2016 16:22:04 04/02/20 16 04/04/2016 bacte rial vagin osis + vagin itis panel , vagin al brionna albicans, JOSE DANIEL NEGATI VE negati ve Not Available [facility] ([facility]) [address] [facility], [place], [address], 04/04/2016 16:22:04 04/02/20 16 04/04/2016 bacte rial vagin osis + vagin itis panel , vagin al brionna glabrata, JOSE DANIEL NEGATI VE negati ve THIS TEST WAS DEVEL OPED AND ITS PERFO RMANC E LATHA CTERI STICS DETER MINED BY [facility]. IT HAS NOT BEEN CLEAR ED OR APPRO HERB BY THE FOOD AND DRUG ADMIN ISTRA TION. THE FDA HAS DETER MINED THAT SUCH CLEAR ANCE OR APPRO LAZARO IS NOT NECES TI. Not Available [facility] ([facility]) [address] [facility], [place], [address], 04/04/2016 16:22:04 04/02/20 16 04/04/2016 bacte rial vagin osis + vagin itis panel , vagin al trich vag by JOSE DANIEL NEGATI VE negati ve Not Available [facility] ([facility]) [address] [place], [address], 04/04/2016 16:22:04 04/02/20 16 04/04/2016 bacte rial vagin osis + vagin itis panel , vagin al chlamydia trachomatis, JOSE DANIEL NEGATI VE negati ve Not Available [facility] ([facility]) [address] [place], [address], 04/04/2016 16:22:04 04/02/20 16 04/04/2016 bacte rial vagin osis + vagin itis panel , vagin al neisseria gonorrhoeae, JOSE DANIEL NEGATI VE negati ve Not Available [facility] ([facility]) [address] [place], [address], 04/04/2016 16:22:04 04/02/20 16 04/04/2016 pap, IG + refle x HR HPV (16+1 8) diagnosis: COMMEN T NEGAT STEPHANIE FOR INTRA EPITH ELIAL LESIO N AND AIDE DINH . Not Available [facility] ([facility]) [address] [place], [address], 04/05/2016 17:23:08 04/02/20 16 04/04/2016 pap, IG + refle x HR HPV (16+1 8) specimen adequacy: PRASAD Nesbitt SATIS FACTO RY FOR EVALU ATION . ENDOC ERVIC AL AND/O R SQUAM OUS METAP LASTI C CELLS (ENDO CERVI OZIEL COMPO NENT) ARE PRESE NT. Not Available [facility] ([facility]) [address] [place], [address], 04/05/2016 17:23:08 04/02/20 16 04/04/2016 pap, IG + refle x HR HPV (16+1 8) clinician provided ICD10: PRASAD Nesbitt Z01.4 19 Not Available [facility] ([facility]) [address] [place], [address], 04/05/2016 17:23:08 04/02/20 16 04/04/2016 pap, IG + refle x HR HPV (16+1 8) performed by: ALONDRA ALSTON (ASCP ) Not Available [facility] ([facility]) [address] [place], [address], 04/05/2016 17:23:08 04/02/20 16 04/04/2016 pap, IG + refle x HR HPV (16+1 8) . . Not Available [facility] ([facility]) [address] [place], [address], 04/05/2016 17:23:08 04/02/20 16 04/04/2016 pap, IG + refle x HR HPV (16+1 8) note: PRASAD Nesbitt THE PAP SMEAR IS A SCREE SHELLEY TEST DESIG JOAN TO AID IN THE DETEC TION OF TIMO LIGNA NT AND MALIG NANT CONDI TIONS OF THE UTERI NE CERVI X. IT IS NOT A DIAGN OSTIC PROCE DURE AND SHOUL D NOT BE USED THE SOLE MEANS OF DETEC TING CERVI OZIEL CANCE R. BOTH FALSE -POSI TIVE AND FALSE -NEGA TIVE REPOR TS DO OCCUR . Not Available [facility] ([facility]) [address] [place], [address], 04/05/2016 17:23:08 04/02/20 16 04/04/2016 pap, IG + refle x HR HPV (16+1 8) test methodology: CAROLYNEN T THIS LIQUI D BASED THINP REP(R ) PAP TEST WAS RUBI FRANCO WITH THE USE OF AN IMAGE GUIDE Tay El Not Available [facility] ([facility]) [address] [place], [address], 04/05/2016 17:23:08 04/02/20 16 04/04/2016 pap, IG + refle x HR HPV (16+1 8) HPV, high-risk NEGATI VE negati ve THIS HIGH- RISK HPV TEST DETEC TS THIRT EEN HIGH- RISK TYPES (16/1 8/31/ 33/35 /39/4 5/51/ 52/56 /58/5 /) WITHO KATLIN MARAVILLAE MARY JOTI ATION . Not Available [facility] ([facility]) [address] [facility], [place], [address], 04/05/2016 17:23:08 04/02/20 16 04/03/2016 obste tric scree n, serum or blood HBsAg screen NEGATI VE negati ve Not Available [facility] ([facility]) [address] [place], [address], 04/09/2016 16:20:50 04/02/20 16 04/03/2016 obste tric scree n, serum or blood rubella antibodies, IgG 1.15 index immune >0.99 NON-I MMUNE <0.90 EQUIV OCAL 0.90 - 0.99 IMMUN E >0.99 Not Available [facility] ([facility]) [address] [place], [address], 04/09/2016 16:20:50 04/02/20 16 04/03/2016 obste tric scree n, serum or blood ABO grouping A Not Available [facility] ([facility]) [address] [place], [address], 04/09/2016 16:20:50 04/02/20 16 04/03/2016 obste tric scree n, serum or blood Rh factor POSITI VE PLEAS E NOTE: PRIOR RECOR DS FOR THIS PATIE NT'S ABO / RH TYPE ARE NOT AVAIL ABLE FOR ADDIT IONAL VERIF ICATI ON. Not Available [facility] ([facility]) [address] [place], [address], 04/09/2016 16:20:50 04/02/20 16 04/03/2016 obste tric scree n, serum or blood antibody screen NEGATI VE negati ve Not Available [facility] ([facility]) [address] [place], [address], 04/09/2016 16:20:50 04/02/20 16 04/03/2016 obste tric scree n, serum or blood RPR NON REACTI VE non reacti ve Not Available [facility] ([facility]) [address] [place], [address], 04/09/2016 16:20:50 04/02/20 16 04/03/2016 obste tric scree n, serum or blood WBC 8.9 x10e3 /uL 3.4-10 .8 Not Available [facility] ([facility]) [address] [place], [address], 04/09/2016 16:20:50 04/02/20 16 04/03/2016 obste tric scree n, serum or blood RBC 4.05 x10e6 /uL 3.77-5 .28 Not Available [facility] ([facility]) [address] [place], [address], 04/09/2016 16:20:50 04/02/20 16 04/03/2016 obste tric scree n, serum or blood hemoglobin 12.6 g/dL 11.1-1 5.9 Not Available [facility] ([facility]) [address] [place], [address], 04/09/2016 16:20:50 04/02/20 16 04/03/2016 obste tric scree n, serum or blood hematocrit 37.7 % 34.0-4 6.6 Not Available [facility] ([facility]) [address] [facility], [place], [address], 04/09/2016 16:20:50 04/02/20 16 04/03/2016 obste tric scree n, serum or blood MCV 93 fL 79-97 Not Available [facility] ([facility]) [address] [facility], [place], [address], 04/09/2016 16:20:50 04/02/20 16 04/03/2016 obste tric scree n, serum or blood MCH 31.1 pg 26.6-3 3.0 Not Available [facility] ([facility]) [address] [place], [address], 04/09/2016 16:20:50 04/02/20 16 04/03/2016 obste tric scree n, serum or blood MCHC 33.4 g/dL 31.5-3 5.7 Not Available [facility] ([facility]) [address] [facility], [place], [address], 04/09/2016 16:20:50 04/02/20 16 04/03/2016 obste tric scree n, serum or blood RDW 14.9 % 12.3-1 5.4 Not Available [facility] ([facility]) [address] [place], [address], 04/09/2016 16:20:50 04/02/20 16 04/03/2016 obste tric scree n, serum or blood platelets 308 x10e3 /uL 150-37 9 Not Available [facility] [facility]) [address] [place], [address], 04/09/2016 16:20:50 04/02/20 16 04/03/2016 obste tric scree n, serum or blood neutrophils 54 % Not Available [facility] ([facility]) [address] [place], [address], 04/09/2016 16:20:50 04/02/20 16 04/03/2016 obste tric scree n, serum or blood lymphs 27 % Not Available [facility] ([facility]) [address] [place], [address], 04/09/2016 16:20:50 04/02/20 16 04/03/2016 obste tric scree n, serum or blood monocytes 10 % Not Available [facility] ([facility]) [address] [place], [address], 04/09/2016 16:20:50 04/02/20 16 04/03/2016 obste tric scree n, serum or blood eos 9 % Not Available [facility] ([facility]) [address] [place], [address], 04/09/2016 16:20:50 04/02/20 16 04/03/2016 obste tric scree n, serum or blood basos 0 % Not Available [facility] ([facility]) [address] [place], [address], 04/09/2016 16:20:50 04/02/20 16 04/03/2016 obste tric scree n, serum or blood immature cells PRODUCT SAFETY MANAGER Not Available [facility] ([facility]) [address] [place], [address], 04/09/2016 16:20:50 04/02/20 16 04/03/2016 obste tric scree n, serum or blood neutrophils (absolute) 4.8 x10e3 /uL 1.4-7. 0 Not Available [facility] ([facility]) [address] [place], [address], 04/09/2016 16:20:50 04/02/20 16 04/03/2016 obste tric scree n, serum or blood lymphs (absolute) 2.4 x10e3 /uL 0.7-3. 1 Not Available [facility] ([facility]) [address] [place], [address], 04/09/2016 16:20:50 04/02/20 16 04/03/2016 obste tric scree n, serum or blood monocytes(ab solute) 0.9 x10e3 /uL 0.1-0. 9 Not Available [facility] ([facility]) [address] [place], [address], 04/09/2016 16:20:50 04/02/20 16 04/03/2016 obste tric scree n, serum or blood eos (absolute) 0.8 x10e3 /uL 0.0-0. 4 above high normal Not Available [facility] ([facility]) [address] [place], [address], 04/09/2016 16:20:50 04/02/20 16 04/03/2016 obste tric scree n, serum or blood baso (absolute) 0.0 x10e3 /uL 0.0-0. 2 Not Available [facility] ([facility]) [address] [place], [address], 04/09/2016 16:20:50 04/02/20 16 04/03/2016 obste tric scree n, serum or blood immature granulocytes 0 % Not Available [facility] ([facility]) [address] [place], [address], 04/09/2016 16:20:50 04/02/20 16 04/03/2016 obste tric scree n, serum or blood immature grans (abs) 0.0 x10e3 /uL 0.0-0. 1 Not Available [facility] ([facility]) [address] [place], [address], 04/09/2016 16:20:50 04/02/20 16 04/03/2016 obste tric scree n, serum or blood NRBC PRODUCT SAFETY MANAGER Not Available [facility] ([facility]) [address] [place], [address], 04/09/2016 16:20:50 04/02/20 16 04/03/2016 obste tric scree n, serum or blood hematology comments: PRODUCT SAFETY MANAGER Not Available [facility] ([facility]) [address] [place], [address], 04/09/2016 16:20:50 04/02/20 16 04/03/2016 drug scree n, urine amphetamines , urine NEGATI VE NG/mL cutoff =1000 AMPHE TAMIN E TEST INCLU ALLY AMPHE TAMIN E AND METHA MPHET AMINE . Not Available [facility] ([facility]) [address] [place], [address], 04/09/2016 16:20:51 04/02/20 16 04/03/2016 drug scree n, urine barbiturates NEGATI VE NG/mL cutoff =200 Not Available [facility] ([facility]) [address] [place], [address], 04/09/2016 16:20:51 04/02/20 16 04/03/2016 drug scree n, urine benzodiazepi peggy NEGATI VE NG/mL cutoff =200 Not Available [facility] ([facility]) [address] [place], [address], 04/09/2016 16:20:51 04/02/20 16 04/03/2016 drug scree n, urine cannabinoid NEGATI VE NG/mL cutoff =50 Not Available [facility] ([facility]) [address] [place], [address], 04/09/2016 16:20:51 04/02/20 16 04/03/2016 drug scree n, urine cocaine (metab.) NEGATI VE NG/mL cutoff =300 Not Available [facility] ([facility]) [address] [place], [address], 04/09/2016 16:20:51 04/02/20 16 04/03/2016 drug scree n, urine methaqualone NEGATI VE NG/mL cutoff =300 Not Available [facility] ([facility]) [address] [place], [address], 04/09/2016 16:20:51 04/02/20 16 04/03/2016 drug scree n, urine opiates NEGATI VE NG/mL cutoff =2000 OPIAT E TEST INCLU ALLY CODEI NE AND MORPH INE ONLY. Not Available [facility] ([facility]) [address] [place], [address], 04/09/2016 16:20:51 04/02/20 16 04/03/2016 drug scree n, urine phencyclidin e NEGATI VE NG/mL cutoff =25 Not Available [facility] ([facility]) [address] [place], [address], 04/09/2016 16:20:51 04/02/20 16 04/03/2016 drug scree n, urine methadone screen, urine NEGATI VE NG/mL cutoff =300 Not Available [facility] ([facility]) [address] [place], [address], 04/09/2016 16:20:51 04/02/20 16 04/03/2016 drug scree n, urine propoxyphene , urine NEGATI VE NG/mL cutoff =300 Not Available [facility] ([facility]) [address] [place], [address], 04/09/2016 16:20:51 04/02/20 16 04/03/2016 urina lysis compl ete, refle x cultu re specific gravity 1.017 1.005- 1.030 Not Available [facility] ([facility]) [address] [place], [address], 04/09/2016 16:20:52 04/02/20 16 04/03/2016 urina lysis compl ete, refle x cultu re pH 7.0 5.0-7. 5 Not Available [facility] ([facility]) [address] [place], [address], 04/09/2016 16:20:52 04/02/20 16 04/03/2016 urina lysis compl ete, refle x cultu re urine-color YELLOW yellow Not Available [facility] ([facility]) [address] [place], [address], 04/09/2016 16:20:52 04/02/20 16 04/03/2016 urina lysis compl ete, refle x cultu re appearance CLEAR clear Not Available [facility] ([facility]) [address] [place], [address], 04/09/2016 16:20:52 04/02/20 16 04/03/2016 urina lysis compl ete, refle x cultu re WBC esterase NEGATI VE negati ve Not Available [facility] ([facility]) [address] [place], [address], 04/09/2016 16:20:52 04/02/20 16 04/03/2016 urina lysis compl ete, refle x cultu re protein NEGATI VE negati ve/tra ce Not Available [facility] ([facility]) [address] [place], [address], 04/09/2016 16:20:52 04/02/20 16 04/03/2016 urina lysis compl ete, refle x cultu re glucose NEGATI VE negati ve Not Available [facility] ([facility]) [address] [place], [address], 04/09/2016 16:20:52 04/02/20 16 04/03/2016 urina lysis compl ete, refle x cultu re ketones NEGATI VE negati ve Not Available [facility] ([facility]) [address] [facility], [place], [address], 04/09/2016 16:20:52 04/02/20 16 04/03/2016 urina lysis compl ete, refle x cultu re occult blood NEGATI VE negati ve Not Available [facility] ([facility]) [address] [facility], [place], [address], 04/09/2016 16:20:52 04/02/20 16 04/03/2016 urina lysis compl ete, refle x cultu re bilirubin NEGATI VE negati ve Not Available [facility] ([facility]) [address] [facility], [place], [address], 04/09/2016 16:20:52 04/02/20 16 04/03/2016 urina lysis compl ete, refle x cultu re urobilinogen ,semi-qn 0.2 mg/dL 0.2-1. 0 Not Available [facility] ([facility]) [address] [facility], [place], [address], 04/09/2016 16:20:52 04/02/20 16 04/03/2016 urina lysis compl ete, refle x cultu re nitrite, urine NEGATI VE negati ve Not Available [facility] ([facility]) [address] [place], [address], 04/09/2016 16:20:52 04/02/20 16 04/03/2016 urina lysis compl ete, refle x cultu re microscopic examination COMMEN T MICRO SCOPI C FOLLO WS IF INDIC ATED. Not Available [facility] ([facility]) [address] [place], [address], 04/09/2016 16:20:52 04/02/20 16 04/03/2016 urina lysis compl ete, refle x cultu re microscopic examination SEE BELOW: MICRO SCOPI C WAS INDIC ATED AND WAS PERFO RMED. Not Available [facility] ([facility]) [address] [place], [address], 04/09/2016 16:20:52 04/02/20 16 04/03/2016 urina lysis compl ete, refle x cultu re WBC 0-5 /hpf 0 - 5 Not Available [facility] ([facility]) [address] [facility], [place], [address], 04/09/2016 16:20:52 04/02/20 16 04/03/2016 urina lysis compl ete, refle x cultu re RBC 0-2 /hpf 0 - 2 Not Available [facility] ([facility]) [address] [facility], [place], [address], 04/09/2016 16:20:52 04/02/20 16 04/03/2016 urina lysis compl ete, refle x cultu re epithelial cells (non renal) 0-10 /hpf 0 - 10 Not Available [facility] ([facility]) [address] [facility], [place], [address], 04/09/2016 16:20:52 04/02/20 16 04/03/2016 urina lysis compl ete, refle x cultu re epithelial cells (renal) PRODUCT SAFETY MANAGER Not Available [facility] ([facility]) [address] [facility], [place], [address], 04/09/2016 16:20:52 04/02/20 16 04/03/2016 urina lysis compl ete, refle x cultu re casts PRODUCT SAFETY MANAGER Not Available [facility] ([facility]) [address] [facility], [place], [address], 04/09/2016 16:20:52 04/02/20 16 04/03/2016 urina lysis compl ete, refle x cultu re cast type PRODUCT SAFETY MANAGER Not Available [facility] ([facility]) [address] [facility], [place], [address], 04/09/2016 16:20:52 04/02/20 16 04/03/2016 urina lysis compl ete, refle x cultu re crystals PRESEN T n/a abnormal Not Available [facility] ([facility]) [address] [place], [address], 04/09/2016 16:20:52 04/02/20 16 04/03/2016 urina lysis compl ete, refle x cultu re crystal type CALCIU M OXALAT E n/a Not Available [facility] ([facility]) [address] [facility], [place], [address], 04/09/2016 16:20:52 04/02/20 16 04/03/2016 urina lysis compl ete, refle x cultu re mucus threads PRESEN T not estab. Not Available [facility] ([facility]) [address] [facility], [place], [address], 04/09/2016 16:20:52 04/02/20 16 04/03/2016 urina lysis compl ete, refle x cultu re bacteria FEW none seen/f ew Not Available [facility] ([facility]) [address] [place], [address], 04/09/2016 16:20:52 04/02/20 16 04/03/2016 urina lysis compl ete, refle x cultu re yeast PRODUCT SAFETY MANAGER Not Available [facility] ([facility]) [address] [place], [address], 04/09/2016 16:20:52 04/02/20 16 04/03/2016 urina lysis compl ete, refle x cultu re trichomonas PRODUCT SAFETY MANAGER Not Available [facility] ([facility]) [address] [place], [address], 04/09/2016 16:20:52 04/02/20 16 04/03/2016 urina lysis compl ete, refle x cultu re comment PRODUCT SAFETY MANAGER Not Available [facility] ([facility]) [address] [place], [address], 04/09/2016 16:20:52 04/02/20 16 04/03/2016 urina lysis compl ete, refle x cultu re urinalysis reflex COMMEN T THIS SPECI MEN WILL NOT REFLE X TO A URINE CULTU RE. Not Available [facility] ([facility]) [address] [facility], [place], [address], 04/09/2016 16:20:52 04/02/20 16 04/03/2016 hsv (1+2) igg, serum hsv 1 IgG, type spec <0.91 index 0.00-0 .90 NEGAT STEPHANIE <0.91 EQUIV OCAL 0.91 - 1.09 POSIT STEPHANIE >1.09 NOTE: NEGAT STEPHANIE INDIC ATES NO ANTIB ODIES DETEC BRITTNEY TO HSV-1 . EQUIV OCAL MAY SUGGE ST EARLY INFEC TION. IF CLINI AMITA APPRO PRIAT E, RETES T AT LATER DATE. POSIT STEPHANIE INDIC ATES ANTIB ODIES DETEC BRITTNEY TO HSV-1 . Not Available [facility] ([facility]) [address] [facility], [place], [address], 04/09/2016 16:20:53 04/02/20 16 04/03/2016 hsv (1+2) igg, serum hsv 2 IgG, type spec 1.39 index 0.00-0 .90 above high normal NEGAT STEPHANIE <0.91 EQUIV OCAL 0.91 - 1.09 POSIT STEPHANIE >1.09 NOTE: NEGAT STEPHANIE INDIC ATES NO ANTIB ODIES DETEC BRITTNEY TO HSV-2 . EQUIV OCAL MAY SUGGE ST EARLY INFEC TION. IF CLINI AMITA APPRO PRIAT E, RETES T AT LATER DATE. POSIT STEPHANIE INDIC ATES ANTIB ODIES DETEC BRITTNEY TO HSV-2 . Not Available [facility] ([facility]) [address] [facility], [place], [address], 04/09/2016 16:20:53 04/02/20 16 04/02/2016 cf (cyst ic fibro sis) profi le comment: COMMEN T THE ASSAY PROVI ALLY INFOR MATIO N INTEN DED TO BE USED FOR BEAR ER SCREE SHELLEY IN ADULT S OF REPRO DUCTI VE AGE, AN AID IN [facility] RN SCREE SHELLEY, AND A CONFI RMATO RY TEST FOR ANOTH ER MEDIC ALLY ESTAB LISHE D [facility]. THE TEST IS NOT INDIC ATED FOR USE IN DIAGN OSTIC TESTI NG, PRE-I MPLAN TATIO N SCREE SHELLEY, OR FOR ANY STAND -BETH E DIAGN OSTIC PURPO SES WITHO UT CONFI RMATI ON BY ANOTH ER MEDIC ALLY ESTAB LISHE D DIAGN OSTIC PRODU CT OR PROCE DURE. Not Available [facility] ([facility]) [address] [facility], [place], [address], 04/09/2016 16:20:53 04/02/20 16 04/09/2016 cf (cyst ic fibro sis) profi le CF, screen COMMEN T: RESUL TS: NEGAT STEPHANIE FOR 32 MUTAT IONS TAMMY ZED INTER PRETA TION: THIS INDIV IDUAL IS NEGAT STEPHANIE FOR THE MUTAT IONS TAMMY ZED. THIS NEGAT STEPHANIE RESUL T MAY NEED FURTH ER INTER PRETA TION DEPEN DING ON THE CLINI OZIEL INDIC ATION . THIS RESUL T REDUC ES BUT DOES NOT ELIMI ELLEN THE RISK TO BE A CF BEAR ER. COMME NTS: THE DETEC TION RATE VARIE S WITH [place] AND IS LISTE D BELOW . THE PRESE NCE OF AN UNDET ECTED MUTAT ION IN THE CF GENE CANNO T BE RULED OUT. IN THE ABSEN CE OF FAMIL Y HISTO RY, THE REMAI SHELLEY RISK THAT A PERSO N WITH A NEGAT STEPHANIE RESUL T COULD HAVE AT LEAST ONE CF MUTAT ION IS LISTE D IN THE TABLE . IF THERE IS A FAMIL Y HISTO RY OF CF, THESE RISK FIGUR ES DO NOT APPLY . DETAI LED INFOR KAREN Young REGAR DING THIS INDIV IDUAL 'S FAMIL Y HISTO RY WOULD PERMI T A MORE ACCUR ATE ASSES SMENT OF THIS INDIV IDUAL 'S RISK TO BE A BEAR ER OF CYSTI C FIBRO SIS, PLEAS E CONTA CT [facility] RP CHRIS IC SERVI JAYCE AT FOR A SUPA ED ANTONIETTA T. MUTAT ION DETEC TION DETEC TION RATES ARE BASED ON MUTAT ION RATES AMONG ETHNI C FREQU ENCIE S IN PATIE NTS AFFEC BRITTNEY WITH GROUP S CYSTI C FIBRO SIS. AMONG INDIV IDUAL S WITH AN ATYPI OZIEL OR MILD PRESE NTATI ON (E.G. CONGE NITAL ABSEN CE OF THE VAS DEFER ENS, PANCR EATIT IS) DETEC TION RATES MAY VARY FROM THOSE PROVI DED HERE: BEAR ER RISK REDUC TION WHEN NO FAMIL Y HISTO RY DETEC TION [place] RATE ASHKE NAZI 07/17 TO 97% JEWIS H CAUCA AXEL 07/16 TO 90% (NON- HISPA OBEY) AFRIC AN-AM HO N TO 69% HISPA OBEY TO 73% TO 55% THIS INTER PRETA TION IS BASED ON THE CLINI OZIEL AND FAMIL Y RELAT IONSH IP INFOR MATIO N PROVI DED AND THE CURRE NT UNDER STAND ING OF THE MOLEC ULAR CHRIS ICS OF THIS CONDI TION. MUTAT IONS TAMMY ZED: G85E V520F W1282 X 2183A A TO G R117H G542X N1303 K 2184D ROBERT R334W S549N 394DE LTT 2789+ 5G TO A R347H S549R 621+1 G TO T 3120+ 1G TO A R347P G551D 711+1 G TO T 3659D ELC A455E R553X 1078D ELT 3849+ 10KBC TO T DELTA I507 R560T 1717- 1G TO A 3876D ROBERT DELTA F508 R1162 X 1898+ 1G TO A 3905I NST METHO DS/LI MITAT IONS: DNA IS ISOLA BRITTNEY FROM THE SAMPL E AND TESTE D FOR THE 32 CF MUTAT IONS ON THE UNIVE RSAL ARRAY PLATF ORM (LISA NEX). REGIO NS OF THE CFTR GENE ARE AMPLI FIED ENZYM ATICA LLY AND SUBJE CTED TO A SOLUT ION-P HASE MULTI PLEX ALLEL E-SPE CIFIC PRIME R EXTEN CARL WITH SUBSE QUENT HYBRI DIZAT ION TO A BEAD ARRAY AND FLUOR ESCEN CE DETEC TION. POLYM ORPHI SMS F508C , I506V AND I507V ARE INCLU DED IN THIS PANEL TO RULE OUT FALSE POSIT STEPHANIE DELTA F508 HOMOZ YGOTE S. REFLE X TESTI NG OF 5T IS INCLU DED IN THE PANEL FOR R117H INTER PRETA TION. FALSE POSIT STEPHANIE OR NEGAT STEPHANIE RESUL TS MAY OCCUR FOR REASO NS THAT INCLU DE CHRIS IC VARIA NTS, BLOOD TRANS FUSIO NS, BONE MARRO W TRANS PLANT ATION , PRABHU EOUS REPRE SENTA TION OF FAMIL Y RELAT IONSH IPS OR CONTA MINAT ION OF A SAMPL E WITH MATER NAL CELLS . REFER ENCES : 1. UPDAT ES ON BEAR ER SCREE SHELLEY FOR CYSTI C FIBRO SIS. (2011 ) AM J OB GYNEC OL 117(4 ):[phone] 1 2. JONATHAN Young, ET [place]. (2004 ) [facility] [phone] 3. THIERNO CARRANZA, ET [place]. (2002 ) [facility] [phone] 4. PRECO NCEPT ION AND PRENA CLARA BEAR ER SCREE SHELLEY FOR CYSTI C FIBRO SIS: (2000 )ACOG .[facility] PUBLI CATIO N RESUL TS RELEA SED BY: LOBITO LORA, PH.D. , [facility] REPOR T RELEA SED BY: LOBITO LORA, PH.D. , [facility] Not Available [facility] ([facility]) [address] [facility], [place], [address], 04/09/2016 16:20:53 04/02/20 16 04/03/2016 HCG, intac t + beta subun it, quant , serum or plasm a HCG,beta subunit,qnt, serum 65834 mIU/m L FEMAL E (NON- PREGN ANT) 0 - 5 (POST MENOP AUSAL ) 0 - 8 FEMAL E (PREG NANT) WEEKS OF GESTA TION 3 6 - 71 4 10 - 750 5 530 - 0919 6 333 - 65511 7 2352 -9020 63 8 18974 -6957 71 9 25628 -0688 10 10 20397 -3235 77 12 11272 -9063 12 14 09548 - 00016 15 47408 - 18833 16 3498 - 00721 17 6515 - 85933 18 4592 - 89068 GALO ECLIA METHO DOLOG Y Not Available [facility] ([facility]) [address] [facility], [place], [address], 04/09/2016 16:20:54 04/02/20 16 04/03/2016 hemog lobin S (hbs) , prese nce, blood hemoglobin (HGB) solubility NEGATI VE negati ve Not Available [facility] ([facility]) [address] [facility], [place], [address], 04/09/2016 16:20:55 04/02/20 16 04/03/2016 HIV 1+2 AB + HIV 1 p24 Ag, quali tativ e immun oassa y, serum HIV screen 4TH generation wrfx NON REACTI VE non reacti ve Not Available [facility] ([facility]) [address] [facility], [place], [address], 04/09/2016 16:20:55 04/02/20 16 04/03/2016 varic celio- zoste r igg Ab scree n, serum varicella zoster IgG 588 index immune >165 NEGAT STEPHANIE <135 EQUIV OCAL 135 - 165 POSIT STEPHANIE >165 A POSIT STEPHANIE RESUL T GENER ALLY INDIC ATES EXPOS URE TO THE PATHO GEN OR ADMIN ISTRA TION OF SPECI FIC IMMUN OGLOB ULINS , BUT IT IS NOT INDIC ATION OF ACTIV E INFEC TION OR STAGE OF DISEA SE. Not Available [facility] ([facility]) [address] [facility], [place], [address], 04/09/2016 16:20:56 03/25/20 16 03/25/2016 US, obste tric, 1st trime ster No observ ation record ed. [facility] ([facility]) [address] [place], [address], 03/25/2016 19:30:10 04/18/20 16 04/18/2016 US, obste tric, 1st trime ster No observ ation record ed. [email or web address] Not Available 2015 10:35:28 05/02/20 16 05/02/2016 US, obste tric, 1st trime ster No observ ation record ed. [email or web address] Not Available 2015 10:35:29 Result Notes None recorded. Problems Name Problem SNOMED Code Status Onset Date Resolution Date Notes Provider Name and Address Organization Details Recorded Time Irregular periods 24128898 Active Devon [place], [place] - [facility] 5 12:12:48 Vaginal discharge 111601687 Active Devon [place] [facility] 5 12:12:48 Bacterial vaginosis 086143999 Active Marika Game[place] [facility] 5 16:56:26 Diabetes mellitus 88882107 Active Telma De La [place] [facility] 7 14:18:23 Diabetes mellitus 40785943 Active Telma Bendariella [place] [facility] 7 14:18:23 Problem Notes None recorded. Procedures Surgical History Date Name Laterality Status Provider Name and Address Organization Details Recorded Time 01/17/2014 Date of Last Pap Smear completed Farzaneh [place] - [facility] 08/31/2014 14:38:41 Imaging Results Imaging Date Name Status LastModified by Organiz ation Details LastModified Time 03/25/2016 US, obstetric, 1st trimester completed [email or web address] (Imaging) [address] [place], [address], 03/25/2016 19:30:10 04/18/2016 US, obstetric, 1st trimester completed Information not available 05/12/2016 10:35:28 05/02/2016 US, obstetric, 1st trimester completed Information not available 05/12/2016 10:35:29 Procedure Notes None recorded. Medical Equipment None Reported. Allergies Allergen ID Allergen Name Allergen Category Reaction Reaction Severity Criticality Documentation Date Start Date Code Code System Note Provider Name and Address Organization Details Recorded Time 13559 Chantix medicatio n anaphylax is severe Not available 08/31/2014 42547 0 RxNorm Cierra Gongora [place] null, [place] - [facility] 5 12:22:59 85591 tramadol medicatio n hives moderate Not available 08/31/2014 12353 RxNorm Cierra Gongora [place], [place] - [facility] 5 12:22:59 Medications Name Sig Start Date Stop Date Status Note LastModified by Organization Details LastModified Time cyclobenzapr ine 10 mg tablet active Not Available Not Available Not Available metformin 500 mg tablet Take 1 tablet twice a day by oral route. active Not Available Not Available No t Available hydrocodone 5 mg-acetamino phen 325 mg tablet active Not Available Not Available Not Available meloxicam 15 mg tablet active Not Available Not Available No t Available pyridoxine (vitamin B6) 25 mg tablet Take 1 tablet every 6 hours by oral route for 30 days. 2015 active Not Available Not Available Not Avai lable metronidazol e 0.75 % (37.5 mg/5 gram) vaginal gel Insert 1 applicatorf ul every day by vaginal route at bedtime for 5 days. active Not Available Not Available No t Available metronidazol e 500 mg tablet Take 1 tablet twice a day by oral route for 7 days. active Not Available Not Available No t Available sulfamethoxa zole 800 mg-trimethop rim 160 mg tablet active Not Available Not Available Not Available Reglan 10 mg tablet Take 1 tablet every 8 hours by oral route. 2015 active Not Available Not Available Not Avai lable Vitamin tablet Take 1 tablet every day by oral route for 30 days. 2015 active Not Available Not Available Not Avai lable propranolol 10 mg tablet active Not Available Not Available Not Available hydrocodone 7.5 mg-acetamino phen 325 mg tablet active Not Available Not Available Not Available naproxen sodium 550 mg tablet active Not Available Not Available No t Available diclofenac potassium 50 mg tablet active Not Available Not Available No t Available folic acid 1 mg tablet Take 4 tablets every day by oral route for 30 days. 2015 active Not Available Not Available Not Avai lable Monurol 3 gram oral packet active Not Available Not Available Not Available propranolol 20 mg tablet active Not Available Not Available Not Available metformin ER 500 mg tablet,exten ded release 24 hr active Not Available Not Available Not Available Unisom (doxylamine) 25 mg tablet Take 1 tablet every 6 hours by oral route for 30 days. 2015 active Not Available Not Available Not Avai lable ProAir HFA 90 mcg/actuatio n aerosol inhaler Inhale 2 puffs every 4 hours by inhalation route. active Not Available Not Available No t Available OneTouch Delica Lancets 33 gauge active Not Available Not Available Not Available OneTouch Verio test strips active Not Available Not Available Not Available OneTouch Verio Meter active Not Available Not Available Not Available Vitals Date Recorded Body height Body weight Body mass index (BMI) Systolic blood pressure Diastolic blood pressure Provider Name and Address Organization Details Last Updated DateTime 03/19/2016 167.64 cm 944343.8 7562 g 36.5 kg/m2 118 mm[Hg] 62 mm[Hg] Maral Palacio MA [facility] 6 09:13:16 Date Recorded Body height Body mass index (BMI) Systolic blood pressure Diastolic blood pressure Provider Name and Address Organization Details Last Updated DateTime 04/02/2016 167.64 cm 37.1 kg/m2 124 mm[Hg] 88 mm[Hg] Maral Palacio MA [facility] 04/02/2016 10:08:30 Date Recorded Body weight Provider Name an d Address Organization Details Last Updated DateTime 04/02/2016 091124.2584 g Adelita Álvarez MD Attn: Accounting,[address] [place], [address], [facility] 05/12/2016 10:34:18 Date Recorded Body height Body mass index (BMI) Body weight Systolic blood pressure Diastolic blood pressure Provider Name and Address Organization Details Last Updated DateTime 08/31/2014 167.64 cm 32.3 kg/m2 78892.91 0948 g 130 mm[Hg] 100 mm[Hg] Cierra Gongora MA [facility] 5 12:22:59 Social History Question Answer Notes LastModified by Organizat ion Details LastModified Time Tobacco Smoking Status Current Every Day Smoker Cierra Gongora MA null, [facility] 08/31/2014 12:23:00 What Is Your Level Of Alcohol Consumption? None Information not available 08/31/2014 Is Blood Transfusion Acceptable In An Emergency? Yes Information not available 08/31/2014 What Is Your Level Of Caffeine Consumption? None Information not available 08/31/2014 Live Alone Or With Others? With Others [facility] Information not available 08/31/2014 How Many Children Do You Have? 1 ins Information not available 08/31/2014 What Is Your Relationship Status? [facility] Information not available 08/31/2014 How Many Years Have You Smoked Tobacco? 10 ggins Information not available 08/31/2014 Sex: Unknown Functional Status None recorded. Mental Status None recorded. Family History Nothing Reported. Medical History Condition Response Other N High Blood Pressure N Breast Cancer N Thyroid Problems N Kidney or Bladder Problems N Lung Disease N Depression N Blood Clots N GI Problems N Acne N Breast Problem N Eating Disorder N Anemia N Anesthesia Complications N Headaches/Migraines N Ovarian Cancer N Diabetes Y Anxiety Disorder N Muscle, Joint, or Bone Problems N Blood Transfusions N Seizures/Epilepsy N Polyps N Infertility N Acid Reflux (GERD) N Cancer N Abuse/Domestic Violence N Asthma N Endometriosis N High Cholesterol Y Hepatitis N Liver Disease N Heart Disease N Pre-Eclampsia N Osteoporosis N Gynecological History Statement/Question Response Abnormal Pap N Sexually Active? Y STIs/STDs Y HPV Vaccine N Date of Last Pap Smear 01/17/2014 Sexual Problems? N Age at First Child 25 LMP Approximate Obstetrics History GPAL:G 2 P 0 1 0 1 Type Value Premature 1 Living 1 Total 2 Past Encounters Encounter ID Performer Location Encounter Start Date Encounter Closed Date Diagnosis/Indication Diagnosis SNOMED-CT Code Diagnosis ICD10 Code [id number] Waldemar Lubin ([facility]) [address] [place] [address] 08/31/2014 12:02:09 09/01/2014 13:03:04 Irregular periods 85483957 Vaginal discharge 602477 473 [id number] MD Waldemar Lloyd ([facility]) [address] [place] [address] 03/19/2016 09:00:06 03/21/2016 12:23:05 Urine test positive 092090611 Z32.01 Diabetes mellitus 509266 09 E13.9 [id number] MD Waldemar Lloyd ([facility]) [address] [place] [address] 04/02/2016 09:25:38 05/01/2016 09:13:08 Normal 04085728 Z34.81 Gynecologi c examination 05743126 Z01.419 Venereal d isease screening 147393568 Z11.3 Diabetes mellitus 696471 09 E13.9 Health Concerns Section Related Observation LastModified by Organization Detai ls LastModified Time None Recorded Concern Status LastModified by Organization Details LastModified Time None Recorded Advance Directives Directive None Recorded Payers Encounter Date Sequence Insurance Name Policy Number Policy Oliver Covered Member ID Oliver Member ID Guarantor Name 08/31/2014 1 [facility] [id number] Lis Phelan [id number] Lis Phelan 08/31/2014 2 MEDICAID-[place]: [facility] Lis Phelan [id number] Lis Phelan 03/19/2016 1 [facility] [id number] Lis Phelan [id number] Liskirby Phelan 04/02/2016 1 [facility] [id number] Lis Phelan [id number] Lis Phelan Notes Date Note Type Note Provider Name and Address Organization Details Recorded Time 08/31/2014 text/html patient complain s of 3 episodes of irregular bleeding. She notes spotting occurred on 2 occaisions after menses. She also notes about 1 week of light bleeding last month following menses. She also complains of discharge for the past 2-3 weeks. Devon joseph, [facility] 09/01/2014 12:12:57 03/19/2016 text/html Patient is here to establish care for her . Patient reports a history of diabetes mellitus for which she is on Metformin. Patient also has hypercholesterolemi a. Patient refers a history of delivery in the last . 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 Patient was informed that she will benefit from an MFM Consult. Patient verbalizes understanding and agrees to plan. Adelita Álvarez MD Attn: Accounting[address] [facility], [place], [address], [facility] 03/24/2016 15:49:08 OBGyn Episode Ob Episode Information Episode Created Date Number of Fetuses Patient Bloodtype Patient rh Status Prepregnancy Weight lbs Domestic Partner Domestic Partner Phone Father Name Loss Prevention/Safety District Manager Status 03/19/20 16 1 A Positive OPEN Fetus Data First Name Last Name Admitted to NICU Weight (g) Sex Living Outcome Pediatric Complications Fetus ID Race Codes Race Delivery Type Mary Kate Little 3401.94 M true Prematur e [id number] 2106-3 White Vaginal Problems Problem Notes Problem Name Start Date End Date Resolution Snomed Code Not e Diabetes mellitus [id number] Chad Calculation CHAD Calculation Method Initial Chad Date Initial Exam Date Initial Exam Provider Initial Ultrasound Date Last Menstrual Period Date Ultra Sound Weeks Gestation Conception by IVF Embryo Age at Transfer Date of Transfer 11/15/19 18 03/19/20 17 [email or web address] 03/25/2016 02/08/2016 6 Eighteen To Twenty Week Chad Update Ultra Sound Date Fundal Height At Umbil Quickening Date Ultra Sound Latest Weeks Gestation Final Chad Confirmed By Final Chad Confirmed Date Final Chad Date Ultra Sound Latest Days Gestation 0 okolade 05/12/2016 11/15/19 17 0 Pre-timur Flowsheet Flowsheet Date 03/19/2016 Wang Score Blood Edema Fundus Height Fundus Units Glucose Ketones Leukocytes Nitrite Labor Signs Protein Cervic Dilation Cervic Effacement Cervic Station Type Weight in lbs Pre/Post Dialysis Refused 226.695956710500 BP Diastolic BP Location Tested BP Systolic BP Type 62 118 Fetus Heart Rate Present Fetus Movement Comments Flowsheet Date 04/02/2016 Wang Score Blood Edema Fundus Height Fundus Units Glucose Ketones Leukocytes Nitrite Labor Signs Protein Cervic Dilation Cervic Effacement Cervic Station neg none negative neg Type Weight in lbs Pre/Post Dialysis Refused 230.180065019677 BP Diastolic BP Location Tested BP Systolic BP Type 88 124 Fetus Heart Rate Present Fetus Movement Comments Patient is here to establish care. 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 Patient is requesting referral to see the MFM. Will initiate referral to MFM. Menstrual History Last Menstrual Date Menses Monthly On Bcp Conception Prior Menses Frequency Hcg Plus Date Menarche Onset Age 0802/08/2016 Genetic Screening And Infection History Question Response Note Patient's Age Will Be 35 Years Or Older At Estim ated Date of Delivery false Thalassemia (Sri Lankan, Sammarinese, Mediterranean, Or Background): MCV < 80 false Neural Tube Defect (Meningomyelocele, Spina Bifi da, Or Anencephaly) false Congenital Heart Defect false Down Syndrome false Karthikeyan-Sachs (eg, Baptism, Cajun, Kyrgyz-Kyrgyz) f alse Sarita Disease false Sickle Cell Disease Or Trait () false Hemophilia Or Other Blood Disorders false Muscular Dystrophy false Cystic Fibrosis false [place]'s Chorea false Mental Retardation/Autism false If Yes, Was Person Tested For Fragile X? false Other Inherited Genetic Or Chromosomal Disorder false Maternal Metabolic Disorder (eg, Type 1 Diabetes , PKU) true mob Patient Or Baby's Father Had A Child With Defects Not Listed Above false Recurrent Loss, Or A Stillbirth false Medications (including Suppl ements, Vitamins, Herbs, OTC Drugs), Illicit/Recreational Drugs, Alcohol false If Yes, Agent(s) And Strength/Dosage false Any Other Genetic History false Live With Someone With TB Or Exposed To TB false Patient Or Partner Has History Of Genital Herpes false Rash Or Viral Illness Since Last Menstrual Perio d false History Of STD, Gonorrhea, Chlamydia, HPV, Syphi lis false Other Infection History false Delivery Information Delivery Date Delivery Type Labor Anesthesia Weeks Gestation Incision Type Labor Labor Length Hrs Delivered By Post Complications Tubal Sterilization Discharge Date Comments [facility] [address] Merchant false 10/19/2016 Sev ere Pre-E Discharge Information Feeding Method Contraceptive Method Maternal HG B and HCT Levels Bottle Ob Episode Information Episode Created Date Number of Fetuses Patient Bloodtype Patient rh Status Prepregnancy Weight lbs Domestic Partner Domestic Partner Phone Father Name Loss Prevention/Safety District Manager Status 03/19/20 16 1 CLOSED Fetus Data First Name Last Name Admitted to NICU Weight (g) Sex Living Outcome Pediatric Complications Fetus ID Race Codes Race Delivery Type 3430.28 95 [id number] Vaginal Chad Calculation CHAD Calculation Method Initial Chad Date Initial Exam Date Initial Exam Provider Initial Ultrasound Date Last Menstrual Period Date Ultra Sound Weeks Gestation Conception by IVF Embryo Age at Transfer Date of Transfer 0 Eighteen To Twenty Week Chad Update Ultra Sound Date Fundal Height At Umbil Quickening Date Ultra Sound Latest Weeks Gestation Final Chad Confirmed By Final Chad Confirmed Date Final Chad Date Ultra Sound Latest Days Gestation 0 0 Menstrual History Last Menstrual Date Menses Monthly On Bcp Conception Prior Menses Frequency Hcg Plus Date Menarche Onset Age Delivery Information Delivery Date Delivery Type Labor Anesthesia Weeks Gestation Incision Type Labor Labor Length Hrs Delivered By Post Complications Tubal Sterilization Discharge Date [facility] Discharge Information Feeding Method Contraceptive Method Maternal HG B and HCT Levels
--- OUTSIDE RECORDS SUMMARY | 2024-06-08 20:15 | XMS_ITS | Encounter Summary ---
Author Organization [facility] Address [address] [place] [address] Care Team Providers Care Expeller Operator Name Role Phone Provider, Unknown Primary Care Provider Unavaila ble Encounter Details Date Type Department Care Team (Late st Contact Info) Description 06/28/2021 Lab Requisition [facility] Testing [facility] [address] [place] [address] Jose Juan Camarena MD [address] [place] [address] [place] [address] Social History Tobacco Use Types Packs/Day Years Used Date Smoking Tobacco: Former Cigarettes 1 14 0 02/07/2002 - 02/08/2016 Smokeless Tobacco: Never Alcohol Use Standard Drinks/Week Comments No 0 (1 standard drink = 0.6 oz pur e alcohol) Comments No Sex and Gender Information Value Date Recorded Sex Assigned at Not on file Legal Sex Female 10:03 AM CONCESSION SUPERVISOR Gender Identity Not on file Sexual Orientation Not on file documented as of this encounter Plan of Treatment Not on file documented as of this encounter Procedures Procedure Name Priority Date/Time Associated Diagnosis Comments SARS-COV-2 PCR [facility] ONLY Routine 06/28/2021 11:13 AM CONCESSION SUPERVISOR documented in this encounter Visit Diagnoses Not on filedocumented in this encounter Care Teams Expeller Operator Relationship Specialty Start Date End Date Provider, Unknown UNKNOWN PCP - General 05/20/17 documented as of this encounter
--- OUTSIDE RECORDS SUMMARY | 2024-06-08 20:16 | XMS_ITS | Clinical Summary ---
Author Organization [facility] Address [address] [place] [address] Care Team Providers Care Labeling Strategist Name Role Phone Francis Pereyra MD Primary Care Provider Allergies Active Allergy Reactions Criticality Noted Date Comments Metronidazole Tramadol Varenicline Medications metFORMIN (GLUCOPHAGE) 500 mg tablet every 12 hours. Active etonogestrel (NEXPLANON) 68 mg implantIndications : Contraception Active ketorolac (TORADOL) 10 mg tablet Take 1 tablet (10 mg total) by mouth 4 (four) times a day as needed for pain. Take with food. 15 tablet 9 Active Active Problems Problem Noted Date Diagnosed Date Numbness and tingling of left hand 04/07/2024 Abnormal finding on screening of blayne r 10/13/2016 -induced hypertension 09/19/2016 Arthralgia of hip 07/04/2016 History of gastrointestinal disease 05/30/2016 Urinary tract infection in mother during pregnan cy 04/24/2016 Type 2 diabetes mellitus 04/18/2016 Hypercholesterolemia 04/16/2016 Herpes simplex type 2 infection 04/16/2016 History of pre-term labor 04/16/2016 History of delivery 04/16/2016 Impaired glucose tolerance 06/21/2014 Overview (09/26/2016): Prediabetes Asthma 05/31/2014 Overview (09/25/2016): Asthma Pain in right wrist Encounters Date Type Department Care Team Description 04/06/2024 1:00 PM CDT - 04/06/2024 11:59 PM CDT Hospital Encounter [facility] Testing [id number] [id number] Numbness and tingling of left hand [R20.0, R20.2] (Primary Dx); Anesthesia of skin; Paresthesia of skin Discharge Disposition: Discharge to home or self care from Last 3 Months Surgical History Surgery Date Site/Laterality Comments OTHER SURGICAL HISTORY Gastroschises: surgery GASTROSCHISIS CLOSURE Repair Of Gastroschisis - (Added by TW Conv) ND HYSTEROSCOPY LYSIS INTRAUTERINE ADHESIONS Hysteroscopy With Adhesiolysis - (Added by TW Conv) Medical History Medical History Date Comments Congenital gastroschisis 1986 Gastros chises Asthma Asthma; Comments : [facility] 09/26/2014 - Type 2 diabetes mellitus (HCC) D iabetes type 2; Comments: [facility] 09/26/2014 - Gastroschisis Gastroschisis - (Added by TW Conv) Personal history of other in fectious and parasitic diseases History of staphylococcal in fection - (Added by TW Conv) Family History Medical History Relation Name Comments Stroke Maternal Grandfather Family history of cerebrovascular accident (CVA) - Relation: Grandfather (Added by TW Conv) Hyperlipidemia Mother Hyperlipidemi a; Hypertension Mother Hypertension; Alcohol abuse Other 1 Family history of Alcoholism; Arthritis Other 1 Family history of Arthritis; Diabetes Other 1 Family history of diabetes mellitus - Relation: Grandmother (Added by TW Conv) Diabetes type II Other 1 Family hist ory of Diabetes mellitus type 2; Heart disease Other 1 Family history of Heart disease; Hypertension Other 1 Family history of Hypertension; Kidney disease Other 1 Family histor y of Renal disease; Stroke Other 1 Family history of Stroke; Stroke Other 2 Family history of cerebrovascular accident (CVA) - Relation: Grandmother (Added by TW Conv) Relation Name Status Comments Maternal Grandfather Mother Other 1 Other 2 Social History Tobacco Use Types Packs/Day Years Used Date Smoking Tobacco: Former Comments No Sex and Gender Information Value Date Recorded Sex Assigned at Not on file Legal Sex Female 3:29 AM CHILD NUTRITION DIRECTOR Gender Identity Not on file Sexual Orientation Not on file Obstetrics History Last Filed Vital Signs Vital Sign Reading Time Taken Comments Blood Pressure 158/88 08/19/2018 3:18 PM CHILD NUTRITION DIRECTOR Pulse 76 08/19/2018 3:18 PM CHILD NUTRITION DIRECTOR Temperature 36.7 ??C (98 ??F) 08/19/2018 11:43 AM CHILD NUTRITION DIRECTOR Respiratory Rate 14 08/19/2018 3:18 PM CHILD NUTRITION DIRECTOR Oxygen Saturation 98% 08/19/2018 3:18 PM CHILD NUTRITION DIRECTOR Inhaled Oxygen Concentration - - Weight 111.6 kg (246 lb) 08/19/2018 11:43 AM CHILD NUTRITION DIRECTOR Height 167.6 cm (5' 6 ) 11/19/2016 9:14 AM CDT Body Mass Index 39.71 11/19/2016 9:14 AM CDT Plan of Treatment Health Maintenance Due Date Last Done Comments Albumin Creatinine Ratio, Urine 1986 Cervical Cancer Screening 1986 Depression Screening 1986 Hepatitis C Screening 1986 Dilated Eye Exam 1986 Foot Exam 1986 DTaP/Tdap/Td Vaccine (1 - Tdap) 1997 Varicella Vaccines (1 of 2 - 13+ 2-dose series) 1999 Hepatitis B Screening 01/31/2004 Regular Well Visit/Exam 18-64 01/31/2004 Lipid Panel 06/01/2015 06/01/2014 Hemoglobin A1C 04/17/2017 10/16/2016 Pneumococcal vaccine <65 (2 of 2 - PCV) 11/06/2019 11/05/2018 eGFR 12/14/2021 12/14/2020, 08/19/2018 Influenza Vaccine (#1) 2024 9, 03/25/2018, 04/01/2017 HPV Vaccines Aged Out No longer eligi ble based on patient's age to complete this topic Procedures Procedure Name Priority Date/Time Associated Diagnosis Comments EMG/NCV Routine 04/06/2024 2:42 PM CDT Anesthesia of skin Paresthesia of skin EGFR Routine 12/14/2020 3:31 PM CDT HEMOGLOBIN A1C Routine Gen Lab 10/16/2016 5:49 PM CDT SERUM LIPID PANEL Routine 06/01/2014 4:5 0 PM CHILD NUTRITION DIRECTOR from Last 3 Months or Most Recently Relevant to Health Maintenance Results * EMG/NCV - (04/06/2024 2:42 PM CDT) Anatomical Region Laterality Modality EMG Impressions 04/06/2024 2:42 PM CDT History: This is a 39 years old female patient with history of tingling and numbness of left hand. ??Nerve conduction studies: Left radial antidromic sensory nerve conduction study showed normal SNAP peak latency, normal amplitude and normal sensory nerve conduction velocity. ??Left median and left ulnar orthodromic sensory nerve conduction studies showed normal SNAP peak latencies, normal amplitudes and normal sensory nerve conduction velocities. ??Left median and left ulnar motor nerve conduction studies showed normal DMLs, normal CMAP amplitudes, normal motor nerve conduction velocities and normal F wave latencies. EMG studies: The concentric needle electrode examination was performed on left FDI, APB, flexor carpi radialis, biceps and deltoid. ??There was no electrophysiological evidence of acute or chronic denervation or reinnervation. ??The interference pattern is full in all muscle tested. Impression: This is a normal study. ??There was no electrophysiologic evidence suggestive of significant large fiber neuropathy or entrapment neuropathy of left upper extremity. The needle EMG study of left upper extremity did not show any ongoing denervation. ?? The clinical correlation is recommended. us Luba Vuong NP NEUROLOGY ORDERABLES Final Re sult * eGFR (12/14/2020 3:31 PM CDT) eGFR 126 mL/min/1.7 3 m2 [facility] ([facility]) Comment: Interpretive Data Reference Interval Normal ?>/= 90 mL/min/1.73m2 Mildly decreased* ? 60 - 89 mL/min/1.73m2 Mildly to moderately decreased ?45 - 59 mL/min/1.73m2 Moderately to severely decreased ??30 - 44 mL/min/1.73m2 Severely decreased ?15 - 29 mL/min/1.73m2 Kidney Failure ?< 15 ??mL/min/1.73m2 *Relative to young adult level Estimated glomerular filtration rate is determined by the CKD-EPI equation recommended by the National Kidney Foundation (KDIGO 2012 Clinical Practice Guideline for the Evaluation and Management of Chronic Kidney Disease. Kidney Intnl Suppl Jun 2012;3:1). The CKD-EPI equation should not be used for patients with unstable renal function and has not been validated in children and those over 70. Current interpretive data was last reviewed 2020 Blood specimen (specimen) 12/14/2020 3:31 PM CDT 12/14/2020 4:55 PM CDT us Lili Martínez MD LAB BLOOD ORDERABLES Fin al Result [facility] ([place]) [facility] [place] [address] * Serum lipid panel (06/01/2014 4:50 PM CHILD NUTRITION DIRECTOR) Cholesterol 204 mg/dl HISTORIC AL RESULTS Comment: DESIRABLE = LESS THAN 200 MG/DL BORDERLINE HIGH = 200-239 MG/DL HIGH= GREATER THAN 239 MG/DL Triglycerides 119 mg/dl HISTOR ICAL RESULTS Comment: Current guidelines recommend that lipid screen be performed on fasting blood samples for heart risk stratification. NORMAL = LESS THAN 150 MG/DL BORDERLINE HIGH = 150-199 MG/DL HIGH = 200-499 MG/DL VERY HIGH = GREATER THAN OR EQUAL TO 500 MG/DL HDL 49 mg/dl HISTORICAL RESULTS Comment: LOW HDL CHOLESTEROL = Less than 40 mg/dL NORMAL HDL CHOLESTEROL = 40-59 mg/dL HIGH HDL CHOLESTEROL = Greater than 59 mg/dL Non-HDL cholesterol, calculated 155 mg/dl HISTORICAL RESULTS Comment: OPTIMAL LESS THAN 130 LOW RISK 130 -159 MODERATE RISK 160 - 189 HIGH RISK GREATER THAN OR EQUAL TO 190 LDL, calculated 131 HIST ORICAL RESULTS Comment: LESS THAN 100 MG/DL OPTIMAL 100 - 129 MG/DL NEAR OPTIMAL / ABOVE OPTIMAL 130 - 159 MG/DL BORDERLINE HIGH 160 - 189 MG/DL HIGH GREATER THAN OR = 190 MG/DL VERY HIGH LDL VALUES ARE NOT VALID WHEN THE TOTAL TRIGLYCERIDE IS GREATER THAN 300 MG/DL. Serum 06/01/2014 4:50 PM CHILD NUTRITION DIRECTOR Chad Mccollum MD LAB BLOOD ORDERABLES Final Result HISTORICAL RESULTS from Last 3 Months or Most Recently Relevant to Health Maintenance Insurance [facility] Care Teams Labeling Strategist Relationship Specialty Start Date End Date Francis Pereyra MD [address] [place] [address] [place] [address] PCP - General 12/14/20
--- OUTSIDE RECORDS SUMMARY | 2024-06-08 20:16 | XMS_ITS | Encounter Summary ---
Author Organization [facility] Address [address] [place] [address] Care Team Providers Care Director Religious Education Name Role Phone Francis Pereyra MD Primary Care Provider Reason for Referral * Neurology (Routine) - Closed Specialty Diagnoses / Procedures Referred By Rodney call Referred To Contact Diagnoses Pain in right wrist Procedures EMG/NCV - Lis Nails NP Phone: tel: fax: [address] [phone] Referral ID Status Reason Start Date Expiration Date Visits Re quested Visits Authorized [id number] Closed 03/08/2021 04/07/2022 1 1 Reason for Visit * Neurology (Routine) - Closed Specialty Diagnoses / Procedures Referred By Rodney call Referred To Contact Diagnoses Pain in right wrist Procedures EMG/NCV - Lis Nails NP Phone: tel: fax: [address] [phone] Referral ID Status Reason Start Date Expiration Date Visits Re quested Visits Authorized [id number] Closed 03/08/2021 04/07/2022 1 1 Encounter Details Date Type Department Care Team (Latest Contact Info) Description 04/04/2021 7:47 AM CDT - 04/04/2021 11:59 PM CDT Hospital Encounter [facility] Neurology Testing [address] [place] [address] Lis Nails NP [address] [place] [address] Pain in right wrist Discharge Disposition: Discharge to home or self care Social History Tobacco Use Types Packs/Day Years Used Date Smoking Tobacco: Former Comments No Sex and Gender Information Value Date Recorded Sex Assigned at Not on file Legal Sex Female 3:29 AM ATMOSPHERIC TECHNICIAN Gender Identity Not on file Sexual Orientation Not on file documented as of this encounter Medications at Time of Discharge etonogestrel (NEXPLANON) 68 mg implantIndications: Contraception ketorolac (TORADOL) 10 mg tablet Take 1 tablet (10 mg total) by mouth 4 (four) times a day as needed for pain. Take with food. 15 tablet 08/19/2018 metFORMIN (GLUCOPHAGE) 500 mg tablet every 12 hours. documented as of this encounter Discharge Disposition Disposition Code Departure Means Destination Discharge to home or self care documented in this encounter Plan of Treatment Not on file documented as of this encounter Procedures Procedure Name Priority Date/Time Associated Diagnosis Comments EMG/NCV Routine 04/04/2021 9:05 AM CDT Pain in right wrist documented in this encounter Results * EMG/NCV - (04/04/2021 9:05 AM CDT) Anatomical Region Laterality Modality EMG Narrative 04/04/2021 1:13 PM CDT This study was performed for evaluation of pain in the right wrist A nerve conduction velocity study of the right upper extremity was performed in this right upper extremity the right median and ulnar motor and sensory nerves and radial sensory nerves were examined. This was followed by EMG examination of the right upper extremity using a concentric needle in the following muscles were sampled right 1st dorsal interosseous abductor pollicis brevis pronator teres biceps triceps deltoid middle lower cervical paraspinal muscles. The only abnormality on nerve conduction velocity testing was the presence of a mild delay in the right median snap latency at 2.5 milliseconds. ??All the other nerve conduction studies were within normal limits. EMG showed no evidence of any active or chronic denervation. 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 carpal tunnel syndrome primarily affecting sensory fibers. ??Clinical correlation is recommended. Lis Nails SOCIAL PSYCHOLOGIST NEUROLOGY ORDERABLES Fi nal Result documented in this encounter Visit Diagnoses Diagnosis Pain in right wrist Pain in joint, forearm documented in this encounter Care Teams Director Religious Education Relationship Specialty Start Date End Date Francis Pereyra MD [address] [place] [address] PCP - General 12/14/20 documented as of this encounter
--- OUTSIDE RECORDS SUMMARY | 2024-06-08 20:16 | XMS_ITS | Referral Summary ---
Author Organization [facility] Address [address] [place] [address] Care Team Providers Care Drop Wire Stringer Name Role Phone Francis Pereyra MD Primary Care Provider Encounters Date Type Department Care Team Description 04/06/2024 1:00 PM CDT - 04/06/2024 11:59 PM CDT Hospital Encounter [facility] Neurology Testing [address] [place] [address] Numbness and tingling of left hand [R20.0, R20.2] (Primary Dx); Anesthesia of skin; Paresthesia of skin Discharge Disposition: Discharge to home or self care from Last 3 Months Allergies Active Allergy Reactions Criticality Noted Date [...] Overview (09/25/2016): Asthma Pain in right wrist Social History Tobacco Use Types Packs/Day Years Used Date Smoking Tobacco: Former Comments No Sex and Gender Information Value Date Recorded Sex Assigned at Not on file Legal Sex Female 3:29 AM HEEL STIFFENER Gender Identity Not on file Sexual Orientation Not on file Last Filed Vital Signs Vital Sign Reading Time Taken Comments Blood Pressure 158/88 08/19/2018 3:18 PM HEEL STIFFENER Pulse 76 08/19/2018 3:18 PM HEEL STIFFENER Temperature 36.7 ??C (98 ??F) 08/19/2018 11:43 AM HEEL STIFFENER Respiratory Rate 14 08/19/2018 3:18 PM HEEL STIFFENER Oxygen Saturation 98% 08/19/2018 3:18 PM HEEL STIFFENER Inhaled Oxygen Concentration - - Weight 111.6 kg (246 lb) 08/19/2018 11:43 AM HEEL STIFFENER Height 167.6 cm (5' 6 ) 11/19/2016 9:14 AM CDT Body Mass Index 39.71 11/19/2016 9:14 AM CDT Plan of Treatment Not on file Procedures Procedure Name Priority Date/Time Associated Diagnosis Comments EMG/NCV Routine 04/06/2024 2:42 PM CDT Anesthesia of skin Paresthesia of skin EGFR Routine 12/14/2020 3:31 PM CDT HEMOGLOBIN A1C Routine Gen Lab 10/16/2016 5:49 PM CDT SERUM LIPID PANEL Routine 06/01/2014 4:5 0 PM HEEL STIFFENER from Last 3 Months or Most Recently [...] sult * eGFR (12/14/2020 3:31 PM CDT) [facility] Signature eGFR 126 mL/min/1.7 3 m2 TYREL MULLER [...] LAB BLOOD ORDERABLES Fin al Result TYREL MULLER DICKENS) [facility] Department [place] [address] * Serum lipid panel (06/01/2014 4:50 PM HEEL STIFFENER) Cholesterol 204 mg/dl HISTORIC AL RESULTS Comment: [...] THAN 300 MG/DL. Serum 06/01/2014 4:50 PM HEEL STIFFENER us Chad Mccollum MD LAB BLOOD ORDERABLES Final Result HISTORICAL RESULTS from Last 3 Months or Most Recently Relevant to Health Maintenance Insurance [facility] [place] [address] Care Teams Drop Wire Stringer Relationship Specialty Start Date End Date Francis Pereyra MD [address] [place] [address] [place] [address] PCP - General 12/14/20
--- OUTSIDE RECORDS SUMMARY | 2024-06-08 20:16 | XMS_ITS | Encounter Summary ---
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 Francis Pereyra MD Primary Care Provider Reason for Referral * Neurology (Routine) - Pending Review Specialty Diagnoses / Procedures Referred By Rodney call Referred To Contact Diagnoses Anesthesia of skin Paresthesia of skin Procedures EMG/[place] [address] [place] [address] Phone: tel: fax: [address] [phone] Referral ID Status Reason Start Date Expiration Date V isits Requested Visits Authorized [id number] Pending Review 03/07/2024 04/06/2025 1 1 Reason for Visit * Neurology (Routine) - Pending Review Specialty Diagnoses / Procedures Referred By Contmaritza call Referred To Contact Diagnoses Anesthesia of skin Paresthesia of skin Procedures EMG/[place] [address] [place] [address] Phone: tel: fax: [address] [phone] Referral ID Status Reason Start Date Expiration Date V isits Requested Visits Authorized [id number] Pending Review 03/07/2024 04/06/2025 1 1 Encounter Details Date Type Department Care Team (Latest Contact Info) Description 04/06/2024 1:00 PM CDT - 04/06/2024 11:59 PM CDT Hospital Encounter 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 Nerve conduction studies: Left radial antidromic sensory nerve conduction study showed normal SNAP peak latency, normal amplitude and normal sensory nerve conduction velocity. Left median and left ulnar orthodromic sensory nerve conduction studies showed normal SNAP peak latencies, normal amplitudes and normal sensory nerveconduction velocities. Left median and left ulnar motor nerve conduction studies showed normal DMLs, normal CMAP amplitudes, normal motor nerve conduction velocities and normal F wave latencies. EMG studies: The concentric needle electrode examination was performed on left FDI, APB, flexor carpi radialis, biceps and deltoid. There was no electrophysiological evidence of acute or chronic denervation or reinnervation. The interference pattern is full in all muscle tested. Impression: This is a normal study. There was no electrophysiologic evidence suggestive of significant large fiber neuropathy or entrapment neuropathy of left upper extremity. The needle EMG study of left upper extremity did not show any ongoing denervation. The clinical correlation is recommended. 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
--- OUTSIDE RECORDS SUMMARY | 2024-06-08 20:16 | XMS_ITS | Encounter Summary ---
Author Organization [facility] Healthcare Address [address] [place] [address] Care Team Providers Care Planishing Press Operator Name Role Phone Tessa Su MICHAEL Primary Care Provider [phone] Reason for Visit * Reason Comments Abdominal Pain Encounter Details Date Type Department Care Team (Late st Contact Info) Description 08/19/2018 12:16 PM STRATEGIC COMMUNICATIONS MANAGER - 08/19/2018 3:18 PM STRATEGIC COMMUNICATIONS MANAGER Emergency [facility] Emergency Department [address] [place] [address] Gabriele Ruano MD [address] [place] [address] Left lower quadrant pain (Primary Dx) Discharge Disposition: Discharge to home or self care Social History Tobacco Use Types Packs/Day Years Used Date Smoking Tobacco: Former Comments No Sex and Gender Information Value Date Recorded Sex Assigned at Not on file Legal Sex Female 3:29 AM STRATEGIC COMMUNICATIONS MANAGER Gender Identity Not on file Sexual Orientation Not on file documented as of this encounter Last Filed Vital Signs Vital Sign Reading Time Taken Comments Blood Pressure 158/88 08/19/2018 3:18 PM STRATEGIC COMMUNICATIONS MANAGER Pulse 76 08/19/2018 3:18 PM STRATEGIC COMMUNICATIONS MANAGER Temperature 36.7 ??C (98 ??F) 08/19/2018 11:43 AM STRATEGIC COMMUNICATIONS MANAGER Respiratory Rate 14 08/19/2018 3:18 PM STRATEGIC COMMUNICATIONS MANAGER Oxygen Saturation 98% 08/19/2018 3:18 PM STRATEGIC COMMUNICATIONS MANAGER Inhaled Oxygen Concentration - - Weight 111.6 kg (246 lb) 08/19/2018 11:43 AM STRATEGIC COMMUNICATIONS MANAGER Height - - Body Mass Index 39.71 11/19/2016 9:14 AM CDT documented in this encounter Discharge Instructions * Discharge Instructions* Gabriele Ruano MD - 08/19/2018 3:11 PM STRATEGIC COMMUNICATIONS MANAGER Follow up with her primary physician regarding her CT findings TEGIC COMMUNICATIONS MANAGER * Attachments The following attachments cannot be sent through Care Everywhere. * Abdominal Pain, Unknown Cause, (Female) (Hungarian) documented in this encounter Medications at Time of Discharge etonogestrel (NEXPLANON) 68 mg implantIndications: Contraception ketorolac (TORADOL) 10 mg tablet Take 1 tablet (10 mg total) by mouth 4 (four) times a day as needed for pain. Take with food. 15 tablet 08/19/2018 metFORMIN (GLUCOPHAGE) 500 mg tablet every 12 hours. documented as of this encounter Ordered Prescriptions Prescription Sig Dispense Quantity Refills Last Filled Start Date End Date ketorolac (TORADOL) 10 mg tablet Take 1 tablet (10 mg total) by mouth 4 (four) times a day as needed for pain. Take with food. 15 tablet 08/19/2018 documented in this encounter Discharge Disposition Disposition Code Departure Means Destination Discharge to home or self care documented in this encounter ED Notes * Gabriele Ruano MD - 08/19/2018 12:30 PM CST HPI Chief Complaint Patient presents with ??? Abdominal Pain Patient is a 33-year-old female who presents emergency room complaining of left- sided abdominal pain for 4 days. Patient denies any fevers or chills. There is no urinary symptoms or flank pain. Thereis no nausea vomiting or diarrhea. No chest pain or respiratory complaints. Patient has a history of diabete, hypercholesterolemia, repair of gastroschisis as a child. There is no aggravating or alleviating factors. There is no other complaints of further review of symptoms negative Patient History Patient Active Problem List Diagnosis Date Noted ??? Abnormal finding on screening of mother 10/13/2016 Class: Chronic ??? 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 Arthralgia of hip 07/04/2016 Class: Chronic ??? History of gastrointestinal disease 05/30/2016 Class: Chronic ??? Urinary tract infection in mother during 04/24/2016 Class: Chronic ??? Type 2 diabetes mellitus (CMS/HCC) 04/18/2016 Class: Chronic ??? Hypercholesterolemia 04/16/2016 Class: Chronic ??? Herpes simplex type 2 infection 04/16/2016 Class: Chronic ??? History of pre-term labor 04/16/2016 Class: Chronic ??? History of delivery 04/16/2016 Class: Chronic ??? Impaired glucose tolerance 06/21/2014 Class: Temporary ??? Asthma 05/31/2014 Class: Temporary Past Medical History: Diagnosis Date ??? Asthma Asthma; Comments: [facility] 09/26/2014 - ??? 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 Gastroschisis Gastroschisis - (Added by TW Conv) ??? Personal history of other infectious and parasitic diseases History of staphylococcal infection - (Added by TW Conv) ??? Type 2 diabetes mellitus (CMS/HCC) Diabetes type 2; Comments: [facility] 09/26/2014 - Past Surgical History: Procedure Laterality Date ??? GASTROSCHISIS CLOSURE Repair Of Gastroschisis - (Added by TW Conv) ??? OTHER SURGICAL HISTORY Gastroschises: surgery ??? MA HYSTEROSCOPY,LYSIS ADHESIONS Hysteroscopy With Adhesiolysis - (Added by TW Conv) Family History Problem Relation Age of Onset ??? Hypertension Mother Hypertension; ??? Hyperlipidemia Mother Hyperlipidemia; ??? Heart disease Other Family history of Heart disease; ??? Diabetes type II Other Family history of Diabetes mellitus type 2; ??? Arthritis Other Family history of Arthritis; ??? Alcohol abuse Other Family history of Alcoholism; ??? Hypertension Other Family history of Hypertension; ??? Kidney disease Other Family history of Renal disease; ??? Stroke Other Family history of Stroke; ??? Stroke Other Family history of cerebrovascular accident (CVA) - Relation: Grandmother (Added by TW Conv) ??? Stroke Maternal Grandfather Family history of cerebrovascular accident (CVA) - Relation: Grandfather (Added by TW Conv) ??? Diabetes Other Family history of diabetes mellitus - Relation: Grandmother (Added by TW Conv) Social History Substance Use Topics ??? Smoking status: Former Smoker ??? Smokeless tobacco: Not on file ??? Alcohol use Not on file Social History Social History Narrative No alcohol use : (Added by [employer]) No drug use : (Added by [employer]) Always uses seat belt : (Added by [employer]) Exercising regularly (more than 90 min/week) : (Added by [employer]) Feels safe at home : (Added by [employer]) : (Added by [employer]) Review of Systems Review of Systems All other systems reviewed and are negative. Physical Exam ED Triage Vitals [08/19/18 1143] Temp Pulse Resp BP SpO2 36.7 ??C (98 ??F) 102 20 (!) 173/114 98 % Temp src Heart Rate Source Patient Position BP Location FiO2 (%) -- -- -- -- -- Physical Exam Constitutional: She appears well-developed and well-nourished. No distress. HENT: Head: Normocephalic and atraumatic. Right Ear: External ear normal. Left Ear: External ear normal. Mouth/Throat: Oropharynx is clear and moist. Eyes: Pupils are equal, round, and reactive to light. Conjunctivae and EOM are normal. Neck: Normal range of motion. Neck supple. Cardiovascular: Normal rate, regular rhythm, normal heart sounds and intact distal pulses. Pulmonary/Chest: Effort normal and breath sounds normal. No respiratory distress. Abdominal: Soft. Bowel sounds are normal. There is no tenderness. Musculoskeletal: Normal range of motion. Neurological: She is alert. Skin: Skin is warm and dry. Capillary refill takes less than 2 seconds. She is not diaphoretic. Psychiatric: She has a normal mood and affect. Nursing note and vitals reviewed. [facility] ED Course as of Aug 19 1511 Time: 08/19 1402 Comment: Patient aware of CT results and the need for [id number] regarding her liver findings. Patient lying in bed in no acute distress. By: Gabriele Ruano MD Left lower quadrant pain Gabriele Ruano MD 08/19/18 1512 TEGIC COMMUNICATIONS MANAGER * Rebecca Menendez RN - 08/19/2018 11:40 AM CST Pt presents to ED with C/O abdominal pain for four days. Pt said the pain is by the navel and radiates to her left side. Pt rates pain 6/10 and describes it as stabbing. Pt sent by PCP after urine and test were negative. TEGIC COMMUNICATIONS MANAGER documented in this encounter Plan of Treatment Not on file documented as of this encounter Procedures Procedure Name Priority Date/Time Associated Diagnosis Comments CT ABDOMEN PELVIS W CONTRAST ED 08/19/2018 1:20 PM STRATEGIC COMMUNICATIONS MANAGER EGFR STAT 08/19/2018 12:01 PM STRATEGIC COMMUNICATIONS MANAGER DIFFERENTIAL AUTO STAT 08/19/2018 12: 01 PM STRATEGIC COMMUNICATIONS MANAGER URINALYSIS AND REFLEX TO MICROSCOPIC AND CULTURE STAT 08/19/2018 12:01 PM STRATEGIC COMMUNICATIONS MANAGER CBC WITH AUTO DIFFERENTIAL STAT 08/19/2018 12:01 PM STRATEGIC COMMUNICATIONS MANAGER HCG, URINE, QUALITATIVE STAT 08/19/2018 12:01 PM STRATEGIC COMMUNICATIONS MANAGER COMPREHENSIVE METABOLIC PANEL STAT 08/19/2018 12:01 PM STRATEGIC COMMUNICATIONS MANAGER documented in this encounter Results * CT Abdomen Pelvis W Contrast (08/19/2018 1:20 PM STRATEGIC COMMUNICATIONS MANAGER) Anatomical Region Laterality Modality Body N/A Computed Tomogra phy 08/19/2018 1:21 PM STRATEGIC COMMUNICATIONS MANAGER Impressions 08/19/2018 1:24 PM STRATEGIC COMMUNICATIONS MANAGER 1. ??Ill-defined low-attenuation area in the caudate lobe adjacent to dilated common bile duct. ??It is unclear as it this represents dilated ducts or a lesion. ??Further evaluation with MRCP is recommended. 2. ??Fatty change of the liver. 3. ??Punctate right nephrolith. Electronically signed by: Roney Zamora M.D. Narrative 08/19/2018 1:24 PM STRATEGIC COMMUNICATIONS MANAGER EXAM: CT ABDOMEN PELVIS W CONTRAST HISTORY: Left-sided abdominal pain COMPARISON: 01/03/2014 TECHNIQUE: Following administration of 100 mL of Optiray 320 axial images of the abdomen and pelvis were obtained. Sagittal and coronal reconstructions were performed. FINDINGS: Abdomen: Views through the lung bases reveal no acute pulmonary findings. ??The attenuation of the liver significantly lower than the spleen consistent with fatty change of the liver. ??The gallbladder has been removed or is decompressed. ??A subtle ill-defined low-attenuation area is noted in the caudate lobe which may represent mildly dilated biliary duct but further evaluation with MRCP is recommended. ??A punctate right nephrolith is noted. ??The spleen, pancreas, left kidney, and adrenal glands are normal. ??The large and small bowel appear overall normal in caliber and configuration. ??No free intraperitoneal air or obstruction is seen. ??The abdominal aorta appears overall normal in course and caliber. ??No significant mesenteric or retroperitoneal lymphadenopathy is noted. Pelvis: The urinary bladder is decompressed. ??The pelvic viscera are normal. ??No free pelvic fluid is seen. ??No pelvic or lymphadenopathy is noted. Procedure Note Roney Zamora MD - 08/19/2018 EXAM: CT ABDOMEN PELVIS W CONTRAST HISTORY: Left-sided abdominal pain COMPARISON: 01/03/2014 TECHNIQUE: Following administration of 100 mL of Optiray 320 axial images of the abdomen and pelvis were obtained. Sagittal and coronal reconstructions were performed. FINDINGS: Abdomen: Views through the lung bases reveal no acute pulmonary findings. The attenuation of the liver significantly lower than the spleen consistent with fatty change of the liver. The gallbladder has been removed or is decompressed. A subtle ill-defined low-attenuation area is noted in the caudate lobe which may represent mildly dilated biliary duct but further evaluation with MRCP is recommended. A punctate right nephrolith is noted. The spleen, pancreas, left kidney, and adrenal glands are normal. The large and small bowel appear overall normal in caliber and configuration. No free intraperitoneal air or obstruction is seen. The abdominal aorta appears overall normal in course and caliber. No significant mesenteric or retroperitoneal lymphadenopathy is noted. Pelvis: The urinary bladder is decompressed. The pelvic viscera are normal. No free pelvic fluid is seen. No pelvic or lymphadenopathy is noted. IMPRESSION: 1. Ill-defined low-attenuation area in the caudate lobe adjacent to dilated common bile duct. It is unclear as it this represents dilated ducts or a lesion. Further evaluation with MRCP is recommended. 2. Fatty change of the liver. 3. Punctate right nephrolith. Electronically signed by: Roney Zamora M.D. Gabriele Ruano MD IMG CT PROCEDURES Final Resul t * eGFR (08/19/2018 12:01 PM STRATEGIC COMMUNICATIONS MANAGER) eGFR 125 mL/min/1.7 3 m2 [facility] ([place]) Comment: Interpretive Data Reference Interval Normal ?>/= 90 mL/min/1.73m2 Mildly decreased* ? 60 - 89 mL/min/1.73m2 Mildly to moderately decreased ?45 - 59 mL/min/1.73m2 Moderately to severely decreased ??30 - 44 mL/min/1.73m2 Severely decreased ?15 - 29 mL/min/1.73m2 Kidney Failure ?< 15 ??mL/min/1.73m2 *Relative to young adult level If -Romanian multiply value by 1.16. Estimated glomerular filtration rate is determined by [...] 70. Current interpretive data was last reviewed 2016. Blood specimen (specimen) 08/19/2018 12:01 PM STRATEGIC COMMUNICATIONS MANAGER 08/19/2018 12:04 PM STRATEGIC COMMUNICATIONS MANAGER Narrative [facility] ([place]) - 08/19/2018 12:25 PM STRATEGIC COMMUNICATIONS MANAGER us Gabriele Ruano MD LAB BLOOD ORDERABLES Final Re sult [facility] ([place]) [address] [facility] [place] [address] * (ABNORMAL) Differential, auto (08/19/2018 12:01 PM STRATEGIC COMMUNICATIONS MANAGER) Neutrophil abs 4.9 1.7 - 6.5 K/cumm [facility] ([place]) Imm gran abs 0.0 0.0 - 0.1 K/cumm [facility] ([place]) Lymphocyte abs 2.4 0.8 - 3.3 K/cumm [facility] ([place]) Monocyte abs 0.4 0.2 - 0.8 K/cumm [facility] ([place]) Eosinophil abs 0.7(H) 0.0 - 0.5 K/cumm [facility] ([place]) Basophil abs 0.0 0.0 - 0.1 K/cumm [facility] ([place]) Neutrophil pct 58.4 % [facility] ([place]) Comment: Interpretive Data Percent cell count reference ranges are not reported, since discordance with absolute values may lead to misinterpretation of CBC data. Current Interpretive Data was last revised on 2017. Imm gran pct 0.4 % [facility] ([place]) Comment: Interpretive Data Percent cell count reference ranges are not reported, since discordance with absolute values may lead to misinterpretation of CBC data. Current Interpretive Data was last revised on 2017. Lymphocyte pct 28.4 % [facility] ([place]) Comment: Interpretive Data Percent cell count reference ranges are not reported, since discordance with absolute values may lead to misinterpretation of CBC data. Current Interpretive Data was last revised on 2017. Monocyte pct 4.7 % [facility] ([place]) Comment: Interpretive Data Percent cell count reference ranges are not reported, since discordance with absolute values may lead to misinterpretation of CBC data. Current Interpretive Data was last revised on 2017. Eosinophil pct 7.9 % [facility] ([place]) Comment: Interpretive Data Percent cell count reference ranges are not reported, since discordance with absolute values may lead to misinterpretation of CBC data. Current Interpretive Data was last revised on 2017. Basophil pct 0.2 % [facility] ([place]) Comment: Interpretive Data Percent cell count reference ranges are not reported, since discordance with absolute values may lead to misinterpretation of CBC data. Current Interpretive Data was last revised on 2017. Blood specimen (specimen) 08/19/2018 12:01 PM STRATEGIC COMMUNICATIONS MANAGER 08/19/2018 12:04 PM STRATEGIC COMMUNICATIONS MANAGER Narrative [facility] ([place]) - 08/19/2018 12:06 PM STRATEGIC COMMUNICATIONS MANAGER Gabriele Ruano MD LAB BLOOD ORDERABLES Final Re sult Performing Organization Address [facility]/ZIP Co de Phone Number [facility] ([place]) [address] [facility] [place] [address] * hCG, urine, qualitative (08/19/2018 12:01 PM STRATEGIC COMMUNICATIONS MANAGER) HCG, ur Negative Negative [facility] ([place]) Urine 08/19/2018 12:0 1 PM STRATEGIC COMMUNICATIONS MANAGER 08/19/2018 12:03 PM STRATEGIC COMMUNICATIONS MANAGER Narrative [facility] ([place]) - 08/19/2018 12:11 PM STRATEGIC COMMUNICATIONS MANAGER Gabriele Ruano MD LAB URINE ORDERABLES Final Re sult Performing Organization Address [facility]/ZIP Co de Phone Number [facility] ([place]) [address] [facility] [place] [address] * (ABNORMAL) Urinalysis reflex to microscopic and culture Urine (08/19/2018 12:01 PM STRATEGIC COMMUNICATIONS MANAGER) Color, ur Yellow Yellow [facility] ([place]) Clarity, ur Cloudy(A) Clear [facility] ([place]) Specific gravity, ur 1.018 1.010 - 1.025 [facility] ([place]) pH, urine 6.5 [facility] ([place]) Protein, ur ql Negative Negative [facility] ([place]) Glucose, ur ql Negative Negative [facility] ([place]) Ketones, ur Negative Negative [facility] ([place]) Bilirubin, ur Negative Negative [facility] ([place]) Blood, ur Negative Negative [facility] ([place]) Urobilinogen, ur 0.2 mg/dL [facility] ([place]) Nitrite, ur Negative Negative [facility] ([place]) Leukocyte esterase, ur Negative Negative [facility] ([place]) Urine 08/19/2018 12:0 1 PM STRATEGIC COMMUNICATIONS MANAGER 08/19/2018 12:03 PM STRATEGIC COMMUNICATIONS MANAGER Narrative [facility] ([place]) - 08/19/2018 12:08 PM STRATEGIC COMMUNICATIONS MANAGER ?? Urine pH is affected by diet, medications, systemic acid-base disturbances, and renal tubular function. ??pH may affect urinary stone formation. ??For example, urine pH below 6.0 may help reduce the tendency for calcium phosphate stones and pH greater than 6.0 may reduce the tendency for uric acid stone formation. Source: [facility]. Last revised 07-02-2017 Gabriele Ruano MD LAB MICROBIOLOGY - GENERAL OR DERABLES Final Result [facility] ([place]) [address] [facility] Department [place] [address] * (ABNORMAL) Comprehensive metabolic panel (08/19/2018 12:01 PM STRATEGIC COMMUNICATIONS MANAGER) Sodium 138 135 - 145 mmol/L [facility] Potassium, pl 3.8 3.3 - 4.9 mmol/L [facility]) Chloride 103 97 - 110 mmol/L [facility] ([place]) CO2 22 22 - 32 mmol/L [facility] ([place]) Anion gap 13 2 - 15 mmol/L [facility] ([place]) BUN 9 8 - 25 mg/dL [facility] ([place]) Creatinine 0.54(L) 0.60 - 1.10 mg/dL [facility] ([place]) Glucose 157 70 - 199 mg/dL [facility] ([place]) Comment: Interpretive Data Fasting glucose >/= 126 mg/dl is diagnostic for diabetes. ?? Fasting is defined as no caloric intake for at least 8 hours. Fasting glucose between 100 mg/dl to 125 mg/dl is diagnostic of prediabetes. In a patient with classic symptoms of hyperglycemia or hyperglycemic crisis, a random glucose >/= 200 mg/dl is diagnostic for diabetes. In the absence of unequivocal hyperglycemia, results should be confirmed by repeat testing. The classification and Diagnosis of Diabetes Diabetes Care 2017;40 (Suppl. 1):S11. Current interpretive data was last revised 2017. Calcium 9.4 8.5 - 10.3 mg/dL [facility] ([place]) Bilirubin, total 0.5 0.1 - 1.2 mg/dL [facility] ([place]) Protein, pl 7.5 6.5 - 8.5 g/dL [facility] ([place]) Albumin 4.4 3.5 - 5.0 g/dL [facility] ([place]) Alk phos 69 40 - 130 Units/L [facility] ([place]) ALT 31 7 - 45 Units/L [facility] ([place]) AST 19 10 - 45 Units/L [facility] ([place]) Blood specimen (specimen) 08/19/2018 12:01 PM STRATEGIC COMMUNICATIONS MANAGER 08/19/2018 12:04 PM STRATEGIC COMMUNICATIONS MANAGER Narrative [facility] ([place]) - 08/19/2018 12:25 PM STRATEGIC COMMUNICATIONS MANAGER Gabriele Ruano MD LAB BLOOD ORDERABLES Final Re sult [facility] [address] [facility] Department [place] [address] * (ABNORMAL) CBC with auto differential (08/19/2018 12:01 PM STRATEGIC COMMUNICATIONS MANAGER) WBC 8.4 3.8 - 9.9 K/cumm [facility] ([place]) Hgb 13.6 11.9 - 15.5 g/dL [facility] ([place]) Hct 40.7 35.6 - 45.5 % [facility] ([place]) Plt 285 150 - 400 K/cumm [facility] ([place]) MPV 8.8(L) 9.1 - 12.3 fL [facility] ([place]) RBC 4.58 3.90 - 5.20 M/cumm [facility] ([place]) MCV 88.9 81.3 - 96.4 fL [facility] ([place]) MCH 29.7 27.1 - 33.3 pg [facility] ([place]) MCHC 33.4 32.3 - 35.7 g/dL [facility] ([place]) RDW CV 13.5 11.1 - 14.9 % [facility] ([place]) RDW SD 44.0 35.7 - 48.1 fL [facility] ([place]) NRBC abs 0.00 0.00 - 0.01 K/cumm [facility] ([place]) Blood specimen (specimen) 08/19/2018 12:01 PM STRATEGIC COMMUNICATIONS MANAGER 08/19/2018 12:04 PM STRATEGIC COMMUNICATIONS MANAGER Narrative [facility] ([place]) - 08/19/2018 12:06 PM STRATEGIC COMMUNICATIONS MANAGER us Gabriele Ruano MD LAB BLOOD ORDERABLES Final Re sult [facility] ([place]) [address] [facility] Department [place] [address] documented in this encounter Visit Diagnoses Diagnosis Left lower quadrant pain- Primary Abdominal pain, left lower quadrant documented in this encounter Administered Medications Inactive Administered Medications - up to 3 most recent administrations Medication Order MAR Action Action Date Dose Rate Site ioversol intravenous syringe 100 mL 100 mL, intravenous, Once in imaging, contrast, Starting on Crystal 08/19/18 at 1309, For 1 dose Given 08/19/2018 1:14 PM STRATEGIC COMMUNICATIONS MANAGER 100 mL documented in this encounter Historical Medications * This list may reflect changes made after this encounter. etonogestrel (NEXPLANON) 68 mg implantIndications:P regnancy Contraception metFORMIN (GLUCOPHAGE) 500 mg tablet every 12 hours. added in this encounter Active and Recently Administered Medications Times are shown in STRATEGIC COMMUNICATIONS MANAGER. PRN Medication Order 08/17/2018 08/18/2018 08/19/2018 ioversol intravenous syringe 100 mL (COMPLETED) 100 mL, intravenous, Once in imaging, contrast, Starting on Crystal 08/19/18 at 1309, For 1 dose 1314 (Given - Provid er: Henrietta Mitchell, R-RT) documented in this encounter Care Teams Planishing Press Operator Relationship Specialty Start Date End Date Tessa Su NP [address] [place] [id number] PCP - General 08/19/18 12/13/20 documented as of this encounter
--- OUTSIDE RECORDS SUMMARY | 2024-06-08 20:16 | XMS_ITS | Encounter Summary ---
Author Organization [facility] Healthcare Address [address] [place] [address] Care Team Providers Care Door Frame Builder Name Role Phone Francis Pereyra MD Primary Care Provider Encounter Details Date Type Department Care Team (Late st Contact Info) Description 12/14/2020 3:30 PM CDT [address] [id number] Lili Martínez MD [address] [place] [address] Discharge Disposition: Discharge to home or self care Social History Tobacco Use Types Packs/Day Years Used Date Smoking Tobacco: Former Comments No Sex and Gender Information Value Date Recorded Sex Assigned at Not on file Legal Sex Female 3:29 AM WEB APPLICATION DEV SPECIALIST Gender Identity Not on file Sexual Orientation Not on file documented as of this encounter Discharge Disposition Disposition Code Departure Means Destination Discharge to home or self care documented in this encounter Plan of Treatment Not on file documented as of this encounter Procedures Procedure Name Priority Date/Time Associated Diagnosis Comments EGFR Routine 12/14/2020 3:31 PM CDT BASIC METABOLIC PANEL Routine 12/14/2020 3:31 PM CDT documented in this encounter Results * eGFR (12/14/2020 3:31 PM CDT) eGFR 126 mL/min/1.7 3 m2 [facility] Comment: Interpretive Data Reference Interval Normal [...] 3:31 PM CDT 12/14/2020 4:55 PM CDT Lili Martínez MD LAB BLOOD ORDERABLES Fin al Result [facility] ([place]) 1 [facility] [place] [address] * (ABNORMAL) Basic metabolic panel (12/14/2020 3:31 PM CDT) [facility] Sodium 139 135 - 145 mmol/L [facility] Potassium, pl 4.1 3.3 - 4.9 mmol/L [facility]) Chloride 104 97 - 110 mmol/L [facility] CO2 24 22 - 32 mmol/L [facility] Anion gap 11 2 - 15 mmol/L [facility] BUN 7(L) 8 - 25 mg/dL [facility]) Creatinine 0.50(L) 0.60 - 1.10 mg/dL [facility]) Glucose 127 70 - 199 mg/dL [facility] [...] 2017. Calcium 9.4 8.5 - 10.3 mg/dL [facility] ([place]) Blood specimen (specimen) 12/14/2020 3:31 PM CDT 12/14/2020 4:55 PM CDT us Lili Martínez MD LAB BLOOD ORDERABLES Fin al Result [facility] ([place] 1 [facility] [place] [address] documented in this encounter Visit Diagnoses Not on filedocumented in this encounter Care Teams Door Frame Builder Relationship Specialty Start Date End Date Francis Pereyra MD [address] [place] [address] [place] [address] PCP - General 12/14/20 documented as of this encounter
--- OUTSIDE RECORDS SUMMARY | 2024-06-08 20:17 | XMS_ITS | Encounter Summary ---
Author Organization 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; 21 weeks gestation of Social History Tobacco Use Types Packs/Day Years Used Date Smoking Tobacco: Former Comments Unknown Sex and Gender Information Value Date Recorded Sex Assigned at Not on file Legal Sex Female 3:29 AM CONDENSER SETTER Gender Identity Not on file Sexual Orientation Not on file documented as of this encounter Plan of Treatment Not on file documented as of this encounter Visit Diagnoses Diagnosis Supervision of high risk in second trimester Diabetes mellitus in in second trimester 21 weeks gestation of documented in this encounter Care Teams Gericare Aide Teacher Relationship Specialty Start Date End Date Lis Goodson MD PCP - General 09/13/14 08/17/16 documented as of this encounter
--- OUTSIDE RECORDS SUMMARY | 2024-06-08 20:17 | XMS_ITS | Encounter Summary ---
Author Organization [facility] Healthcare Address [address] [place] [address] Care Team Providers Care House Admin Name Role Phone Chad Goodson MD Primary Care Provide r Encounter Details Date Type Department Care Team (Late st Contact Info) Description 05/31/2014 5:00 PM ROUND CUTTER OPERATOR - 05/31/2014 11:59 PM ROUND CUTTER OPERATOR Hospital Encounter [facility] Chad Goodson MD [address] [place] [address] Urinary tract infection Social History Tobacco Use Types Packs/Day Years Used Date Smoking Tobacco: Never Assessed Comments Unknown Sex and Gender Information Value Date Recorded Sex Assigned at Not on file Legal Sex Female 3:29 AM ROUND CUTTER OPERATOR Gender Identity Not on file Sexual Orientation Not on file documented as of this encounter Plan of Treatment Not on file documented as of this encounter Procedures Procedure Name Priority Date/Time Associated Diagnosis Comments URINE MICROBIOLOGY Routine 05/31/2014 12 :00 AM ROUND CUTTER OPERATOR documented in this encounter Results * Urine Microbiology (05/31/2014 12:00 AM ROUND CUTTER OPERATOR) 05/31/2014 Narrative HISTORICAL RESULTS - 06/03/2014 4:58 PM ROUND CUTTER OPERATOR [facility] ?Patient Name: ?CHAD PHELAN ?Med. Rec#: ?? [id number] ?Pt. Acct.#: ??[id number] ?Birthdate: ?? 1985 ?Age / Sex: ?? 29Y / F ?Location: ?[facility] ([facility] ?Admit Date: ??05/31/2014 ?Discharge Date: ? 05/31/2014 ?Doctor: ?Chad Goodson MD ?Patient Type: ?[facility] Ref Lab - Insuran Culture, Urine ? Collected: 05/31/2014 17:00 Specimen: Urine ?? Specimen Source: Clean Voided Specimen Status: Final ??Last Update: 06/03/2014 10:46 Organism ?? Greater than 100,000 cfu/ml of ?? multiple Gram positive organisms Comment ? This culture result is consistent with contamination ?? by normal genital-perineal len. us Historical Provider LAB MICROBIOLOGY - GENERA L ORDERABLES Final Result HISTORICAL RESULTS documented in this encounter Visit Diagnoses Diagnosis Urinary tract infection Urinary tract infection, site not specified documented in this encounter Care Teams House Admin Relationship Specialty Start Date End Date Chad Goodson MD PCP - General 05/31/14 09/12/14 documented as of this encounter
--- OUTSIDE RECORDS SUMMARY | 2024-06-08 20:17 | XMS_ITS | Encounter Summary ---
Author Organization [facility] Facility Care Team Providers Care Jewelry Finisher Name Role Phone Lis Goodson MD Primary Care Provide r Encounter Details Date Type Department Care Team (Late st Contact Info) Description 06/13/2016 8:28 AM RADIATION PROTECTION TECHNICIAN - 06/13/2016 11:59 PM [facility] Hospital [facility]counter [facility] MD [address] [id number] Encounter for screening of mother; Diabetes mellitus in in second trimester; 18 weeks gestation of Social History Tobacco Use Types Packs/Day Years Used Date Smoking Tobacco: Former Comments Unknown Sex and Gender Information Value Date Recorded Sex Assigned at Not on file Legal Sex Female 3:29 AM RADIATION PROTECTION TECHNICIAN Gender Identity Not on file Sexual Orientation Not on file documented as of this encounter Plan of Treatment Not on file documented as of this encounter Visit Diagnoses Diagnosis Encounter for screening of mother Diabetes mellitus in in second trimester 18 weeks gestation of documented in this encounter Care Teams Jewelry Finisher Relationship Specialty Start Date End Date Lis Goodson MD PCP - General 09/13/14 08/17/16 documented as of this encounter
--- OUTSIDE RECORDS SUMMARY | 2024-06-08 20:17 | XMS_ITS | Encounter Summary ---
Author Organization [facility] Healthcare Address [address] [place] [address] Care Team Providers Care Weathercaster Name Role Phone Chad Goodson MD Primary Care Provide r Encounter Details Date Type Department Care Team (Latest Contact Info) Description 05/31/2014 4:04 PM LICENSED PROFESSIONAL COUNSELOR - 05/31/2014 11:59 PM LICENSED PROFESSIONAL COUNSELOR Hospital Encounter [facility] Chad Goodson MD [address] [place] [address] Injury, other and unspecified, knee, leg, ankle, and foot; Struck accidentally by falling object; Unspecified place of occurrence Social History Tobacco Use Types Packs/Day Years Used Date Smoking Tobacco: Never Assessed Comments Unknown Sex and Gender Information Value Date Recorded Sex Assigned at Not on file Legal Sex Female 3:29 AM LICENSED PROFESSIONAL COUNSELOR Gender Identity Not on file Sexual Orientation Not on file documented as of this encounter Plan of Treatment Not on file documented as of this encounter Procedures Procedure Name Priority Date/Time Associated Diagnosis Comments XR FOOT 3+ VW Routine 05/31/2014 4:40 PM LICENSED PROFESSIONAL COUNSELOR documented in this encounter Results * XR Foot 3+ Vw (05/31/2014 4:40 PM LICENSED PROFESSIONAL COUNSELOR) Anatomical Region Laterality Modality N/A Radiographic Aisha ging 05/31/2014 4:40 PM LICENSED PROFESSIONAL COUNSELOR Narrative 06/01/2014 8:12 AM LICENSED PROFESSIONAL COUNSELOR XR Foot Min 3 Views R ??[id number] ??Acc#: ??[id number] DATE OF EXAM: ??May 31 2014 CLINICAL HISTORY: Dropped couch on right foot. ??Persistent pain. RESULT: Three views of the right foot demonstrate no evidence of fracture or dislocation. ??The joint spaces are normally aligned. ??The soft tissues are normal. IMPRESSION: NORMAL RIGHT FOOT. Interpreting Physician: ??DR JONNATHAN SELLERS M.D. ??Read on: ??May 31 2014 5:05P Transcribed by: ??[email or web address] ??On: May 31 2014 ??7:09P Approved Electronically by: ??VERITO Morales, DR DE SANTIAGO ??on: ??Jun 01 2014 8:12A Ordering DR: CHAD JOHANSEN Attending : CHAD JOHANSEN Procedure Note Provider, MD Mar - 10/25/2016 XR Foot Min 3 Views R [id number] Acc#: [id number] DATE OF EXAM: May 31 2014 CLINICAL HISTORY: Dropped couch on right foot. Persistent pain. RESULT: Three views of the right foot demonstrate no evidence of fracture ordislocation. The joint spaces are normally aligned. The soft tissues arenormal. IMPRESSION: NORMAL RIGHT FOOT. Interpreting Physician: DR JONNATHAN SELLERS M.D. Read on: May 31 20145:05P Transcribed by: [email or web address] On: May 31 2014 7:09P Approved Electronically by: VERITO Morales, DR DE SANTIAGO on: Jun 01 20148:12A Ordering DR: CHAD JOHANSEN Attending DR: CHAD JOHANSEN Historical Provider IMLeonila XR PROCEDURES Final R esult documented in this encounter Visit Diagnoses Diagnosis Injury, other and unspecified, knee, leg, ankle, and foot Struck accidentally by falling object Unspecified place of occurrence documented in this encounter Care Teams Weathercaster Relationship Specialty Start Date End Date Chad Goodson MD PCP - General 05/31/14 09/12/14 documented as of this encounter
--- OUTSIDE RECORDS SUMMARY | 2024-06-08 20:17 | XMS_ITS | Encounter Summary ---
Author Organization [facility] Healthcare Address [address] [place] [address] Care Team Providers Care Senior Business Consultant Name Role Phone Mariia Gardner MD Primary Care Provider [phone] Encounter Details Date Type Department Care Team (Latest Contact Info) Description 09/19/2016 3:24 PM CDT - 09/19/2016 11:59 PM CDT Hospital Encounter [facility] [phone] Miscellaneous, Not In File Discharge Disposition: Discharge to home or self care Social History Tobacco Use Types Packs/Day Years Used Date Smoking Tobacco: Former Comments Unknown Sex and Gender Information Value Date Recorded Sex Assigned at Not on file Legal Sex Female 3:29 AM BARMAN Gender Identity Not on file Sexual Orientation Not on file documented as of this encounter Discharge Disposition Disposition Code Departure Means Destination Discharge to home or self care documented in this encounter Plan of Treatment Not on file documented as of this encounter Visit Diagnoses Not on filedocumented in this encounter Care Teams Senior Business Consultant Relationship Specialty Start Date End Date Mariia Gardner MD PCP - General 08/18/16 08/18/18 documented as of this encounter
--- OUTSIDE RECORDS SUMMARY | 2024-06-08 20:17 | XMS_ITS | Encounter Summary ---
Author Organization [facility] Healthcare Address [address] [place] [address] Care Team Providers Care Associate Professor Of History Name Role Phone Mariia Gardner MD Primary Care Provider [phone]- [phone] Encounter Details Date Type Department Care Team (Latest Contact Info) Description 10/16/2016 7:58 PM CDT - 10/19/2016 4:33 PM CDT Hospital Encounter [facility] [address] [place] [address] Bere Burton MD [address] [place] [address] Discharge Disposition: Discharge to home or self care Social History Tobacco Use Types Packs/Day Years Used Date Smoking Tobacco: Former Comments Unknown Sex and Gender Information Value Date Recorded Sex Assigned at Not on file Legal Sex Female 3:29 AM [employer]EL[employer] Gender Identity Not on file Sexual Orientation Not on file documented as of this encounter Last Filed Vital Signs Vital Sign Reading Time Taken Comments Blood Pressure 134/90 10/19/2016 9:42 AM CDT Pulse 77 10/19/2016 9:42 AM CDT Temperature - - Respiratory Rate - - Oxygen Saturation 100% 10/19/2016 9:42 AM CDT Inhaled Oxygen Concentration - - Weight 107.5 kg (236 lb 15.9 oz) 10/17/2016 9:54 PM CDT Height 167.6 cm (5' 6 ) 10/16/2016 9:43 PM CDT Body Mass Index 38.25 10/16/2016 9:43 PM CDT documented in this encounter Discharge Disposition Disposition Code Departure Means Destination Discharge to home or self care documented in this encounter Plan of Treatment Pending Results Name Type Priority Associated Diagnoses Date /Time Hemoglobin A1c Lab Routine Gen Lab 10/16 5:49 PM CDT documented as of this encounter Procedures Procedure Name Priority Date/Time Associated Diagnosis Comments SURGICAL PATHOLOGY Routine 10/17/2016 10 :41 PM CDT BLOOD GASES, UMBILICAL CORD After X-Ray 10/17/2016 9:57 PM CDT BLOOD GASES, UMBILICAL CORD After X-Ray 10/17/2016 9:57 PM CDT GLUCOSE POC Routine Gen Lab 10/17/2016 8:25 PM CDT GLUCOSE POC Routine Gen Lab 10/17/2016 7:33 PM CDT GLUCOSE POC Routine Gen Lab 10/17/2016 6:29 PM CDT GLUCOSE POC Routine Gen Lab 10/17/2016 5:35 PM CDT GLUCOSE POC Routine Gen Lab 10/17/2016 4:35 PM CDT GLUCOSE POC Routine Gen Lab 10/17/2016 3:35 PM CDT GLUCOSE POC Routine Gen Lab 10/17/2016 2:33 PM CDT GLUCOSE POC Routine Gen Lab 10/17/2016 1:25 PM CDT GLUCOSE POC Routine Gen Lab 10/17/2016 12:38 PM CDT GLUCOSE POC Routine Gen Lab 10/17/2016 11:33 AM CDT GLUCOSE POC Routine Gen Lab 10/17/2016 10:35 AM CDT GLUCOSE POC Routine Gen Lab 10/17/2016 9:35 AM CDT GLUCOSE POC Routine Gen Lab 10/17/2016 8:38 AM CDT GLUCOSE POC Routine Gen Lab 10/17/2016 7:32 AM CDT GLUCOSE POC Routine Gen Lab 10/17/2016 6:23 AM CDT GLUCOSE POC Routine Gen Lab 10/17/2016 5:17 AM CDT GLUCOSE POC Routine Gen Lab 10/17/2016 4:21 AM CDT GLUCOSE POC Routine Gen Lab 10/17/2016 3:13 AM CDT GLUCOSE POC Routine Gen Lab 10/17/2016 2:18 AM CDT GLUCOSE POC Routine Gen Lab 10/17/2016 1:22 AM CDT GLUCOSE POC Routine Gen Lab 10/17/2016 12:20 AM CDT GLUCOSE POC Routine Gen Lab 10/16/2016 11:15 PM CDT GLUCOSE POC Routine Gen Lab 10/16/2016 10:19 PM CDT TYPE AND SCREEN STAT 10/16/2016 9:26 PM CDT GLUCOSE POC Routine Gen Lab 10/16/2016 8:59 PM CDT GLUCOSE POC Routine Gen Lab 10/16/2016 6:36 PM CDT DIFFERENTIAL AUTO Routine Gen Lab 10/16/2016 5:4 9 PM CDT URINALYSIS AND REFLEX TO MICROSCOPIC Routine Gen Lab 10/16/2016 5:49 PM CDT CBC WITH AUTO DIFFERENTIAL Routine Gen Lab 10/16/2016 5:49 PM CDT URINALYSIS, MICROSCOPIC ONLY Routine Gen Lab 10/16/2016 5:49 PM CDT URIC ACID Routine Gen Lab 10/16/2016 5:49 PM CDT HEMOGLOBIN A1C Routine Gen Lab 10/16/2016 5:49 PM CDT COMPREHENSIVE METABOLIC PANEL Routine Gen Lab 10/16/2016 5:49 PM CDT documented in this encounter Results * Surgical pathology (10/17/2016 10:41 PM CDT) 10/17/2016 10:4 1 PM CDT 10/20/2016 3:59 AM CDT [facility] - 10/22/2016 3:23 PM CDT [facility] [place] [address] SURGICAL PATHOLOGY REPORT FINAL Patient Name: CHAD PHELAN ? Address: [facility] [address] ??Service: ??Obstetrics ??[place], [place] ??[address] ??Location: ??[facility] 0094 Taken: 10/17/2016 Gender: F ?? Received: 10/20/2016 : 1985 (Age: 31) ??Hospital #: [id number] Accessioned: 10/20/2016 ?Patient Type: ??[facility] Inpatient Reported: 10/22/2016 ? Physician(s): Bere Burton M.D. ? Diagnosis: Umbilical cord, vaginal delivery ? - Three vessel cord with no histopathologic abnormality ? membranes, vaginal delivery ? - No histopathologic abnormality Placenta, vaginal delivery ? - Mature villous morphology ? jdp/10/22/2016 15:23 By this signature, I attest that the above diagnosis is based upon my personal examination of the slides(and/or other material indicated in the diagnosis). ?? Hossein Castro M.D., Ph.D. ??Report Electronically Reviewed and Signed Out By ??Hossein Castro M.D., Ph.D. 10/22/2016 15:23:15 Microscopic Description and Comment: Microscopic examination substantiates the above cited diagnosis. ? History: The patient is a 31-year-old woman who presents as at 36 weeks with type 2 diabetes mellitus. ??Induction of labor for severe pre-eclampsia. ??Operative procedure: ??Normal spontaneous vaginal delivery. Specimen(s) Received: A: Placenta, ??third trimester 36 weeks Gross Description: The specimen is received fresh in a single container labeled Chad Phelan and with a medical record number matching the requisition. ??It consists of a 20.0 x 19.0 x 3.0 cm in average thickness daniels placental specimen with an attached 26.0 cm in length x 1.5 cm in average diameter segment of umbilical cord that inserts 3.0 cm from the nearest edge of the placental disc. ??There are no true knots in the cord, and the cord has three vessels. ??The surface of the placenta is purple- bhatia. ??The membranes are thin and transparent. ??The cotyledons are intact on the maternal surface of the placenta. ??The placenta is serially sectioned, revealing pink- purple cut surfaces containing no discrete lesions or gross abnormalities. ??The trimmed placental weight is 427 grams. ??Labeled A1 - umbilical cord and membrane roll; A2 - peripheral placenta; A3 - full-thickness placenta; A4 - full-thickness placenta. ??Jar 3. ls/10/20/2016 12:08 ?Charlie Hobbs MS, PA([facility]) ? By this signature, I attest that the above diagnosis is based upon my personal examination of the slides(and/or other material). ?? Surgical Pathology report is available electronically in Clinical Desktop. The performance characteristics of some immunohistochemical stains, fluorescence in-situ hybridization tests and immunophenotyping by flow cytometry cited in this report (if any) were determined by the Surgical Pathology Department at [facility] as part of an ongoing senior quality manager program and in compliance with federally mandated regulations drawn from the Clinical Laboratory Improvement Act of 1988 (CLIA '88). ??Some of these tests rely on the use of analyte specific reagents and are subject to specific labeling requirements by the US Food and Drug Administration. ??Such diagnostic tests may only be performed in a facility that is certified by the Department of Health and Human Services as a high complexity laboratory under CLIA '88. ??The FDA has determined that such clearance or approval is not necessary. ??This test is used for clinical purposes. ??It should not be regarded as investigational or for research. ??Nevertheless, federal rules concerning the medical use of analyte specific reagents require that the following disclaimer be attached to the report: This test was developed and its performance characteristics determined by the Surgical Pathology Department of [facility]. ??It has not been cleared or approved by the U. S. Food and Drug Administration. Bere Burton MD LAB PATHOLOGY ORDERABLES F inal Result Performing Organization Address [facility] Co de Phone Number [address] * Blood Gases, Umbilical Cord (10/17/2016 9:57 PM CDT) pH, Umbilical 7.28 [facility] Comment:arterial PCO2, Umbilical 50 mmHg [facility] Comment:arterial PO2, Umbilical 26 mmHg [facility] Comment:arterial CO2, total calculated, umbilical 24 mmol/L [facility] Comment:arterial BE, umbilical -4.4 mmol/L [facility] Comment:arterial Lactate, Whole Blood, Umbilical 3.6 mmol/L [facility] Comment:arterial Blood specimen (specimen) 10/17/2016 9:57 PM CDT 10/17/2016 10:05 PM CDT Sophia Chu MD LAB BLOOD ORDERABLES Fi nal Result Performing Organization Address City/[facility]/ZIP Co de Phone Number [facility] [place] [address] * Blood Gases, Umbilical Cord (10/17/2016 9:57 PM CDT) pH, Umbilical 7.31 [facility] Comment:venous PCO2, Umbilical 46 mmHg [facility] Comment:venous PO2, Umbilical 23 mmHg [facility] Comment:venous CO2, total calculated, umbilical 24 mmol/L [facility] Comment:venous BE, umbilical -3.8 mmol/L [facility] Comment:venous Lactate, Whole Blood, Umbilical 3.9 mmol/L [facility] Comment:venous Blood specimen (specimen) 10/17/2016 9:57 PM CDT 10/17/2016 10:05 PM CDT Sophia Chu MD LAB BLOOD ORDERABLES Fi nal Result Performing Organization Address [facility] de Phone Number [facility] [place] [address] * Glucose POC (10/17/2016 8:25 PM CDT) Glucose, POC 107 70 - 199 mg/dL [facility] Blood specimen (specimen) 10/17/2016 8:25 PM CDT 10/17/2016 8:25 PM CDT Bere Burton MD POINT OF CARE TEST ORDERAB LES Final Result Performing Organization Address [facility] Co de Phone Number [facility] [place] [address] * Glucose POC (10/17/2016 7:33 PM CDT) Glucose, POC 102 70 - 199 mg/dL [facility] Blood specimen (specimen) 10/17/2016 7:33 PM CDT 10/17/2016 7:33 PM CDT us Bere Burton MD POINT OF CARE TEST ORDERAB LES Final Result Performing Organization Address City/[facility]/ZIP Co de Phone Number [facility] [place] [address] * Glucose POC (10/17/2016 6:29 PM CDT) Glucose, POC 108 70 - 199 mg/dL [facility] Blood specimen (specimen) 10/17/2016 6:29 PM CDT 10/17/2016 6:29 PM CDT us Bere Burton MD POINT OF CARE TEST ORDERAB LES Final Result Performing Organization Address [facility] Co de Phone Number [facility] [place] [address] * Glucose POC (10/17/2016 5:35 PM CDT) Glucose, POC 97 70 - 199 mg/dL [facility] Blood specimen (specimen) 10/17/2016 5:35 PM CDT 10/17/2016 5:35 PM CDT us Bere Burton MD POINT OF CARE TEST ORDERAB LES Final Result Performing Organization Address City/[facility] Co de Phone Number [facility] [place] [address] * Glucose POC (10/17/2016 4:35 PM CDT) Glucose, POC 108 70 - 199 mg/dL [facility] Blood specimen (specimen) 10/17/2016 4:35 PM CDT 10/17/2016 4:35 PM CDT Bere Burton MD POINT OF CARE TEST ORDERAB LES Final Result Performing Organization Address City/[facility]/ZIP Co de Phone Number [facility] Department [place] [address] * Glucose POC (10/17/2016 3:35 PM CDT) Glucose, POC 104 70 - 199 mg/dL [facility] Blood specimen (specimen) 10/17/2016 3:35 PM CDT 10/17/2016 3:35 PM CDT Bere Burton MD POINT OF CARE TEST ORDERAB [place] [address] * Glucose POC (10/17/2016 2:33 PM CDT) [facility] Signature Glucose, POC 114 70 - 199 mg/dL [facility] Blood specimen (specimen) 10/17/2016 2:33 PM CDT 10/17/2016 2:33 PM CDT Bere Burton MD POINT OF CARE TEST ORDERAB LES Final Result Performing Organization Address City/[facility]/ZIP Co de Phone Number [facility] [place] [address] * Glucose POC (10/17/2016 1:25 PM CDT) Glucose, POC 104 70 - 199 mg/dL [facility] Blood specimen (specimen) 10/17/2016 1:25 PM CDT 10/17/2016 1:25 PM CDT Bere Burton MD POINT OF CARE TEST ORDERAB [place] [address] * Glucose POC (10/17/2016 12:38 PM CDT) Glucose, POC 109 70 - 199 mg/dL [facility] Blood specimen (specimen) 10/17/2016 12:38 PM CDT 10/17/2016 12:38 PM CDT Bere Burton MD POINT OF CARE TEST ORDERAB LES Final Result Performing Organization Address City/[facility] Co de Phone Number [facility] [place] [address] * Glucose POC (10/17/2016 11:33 AM CDT) Glucose, POC 95 70 - 199 mg/dL [facility] Blood specimen (specimen) 10/17/2016 11:33 AM CDT 10/17/2016 11:33 AM CDT Bere Burton MD POINT OF CARE TEST ORDERAB LES Final Result Performing Organization Address City/[facility] Co de Phone Number [facility] [place] [address] * Glucose POC (10/17/2016 10:35 AM CDT) Glucose, POC 136 70 - 199 mg/dL [facility] Blood specimen (specimen) 10/17/2016 10:35 AM CDT 10/17/2016 10:35 AM CDT Bere Burton MD POINT OF CARE TEST ORDERAB LES Final Result Performing Organization Address City/[facility] [place] [address] * Glucose POC (10/17/2016 9:35 AM CDT) Glucose, POC 130 70 - 199 mg/dL [facility] Blood specimen (specimen) 10/17/2016 9:35 AM CDT 10/17/2016 9:35 AM CDT us Bere Burton MD POINT OF CARE TEST ORDERAB LES Final Result Performing Organization Address [facility] Co de Phone Number [facility] [place] [address] * Glucose POC (10/17/2016 8:38 AM CDT) Glucose, POC 101 70 - 199 mg/dL [facility] Blood specimen (specimen) 10/17/2016 8:38 AM CDT 10/17/2016 8:38 AM CDT us Bere Burton MD POINT OF CARE TEST ORDERAB LES Final Result Performing Organization Address [facility] Co de Phone Number [facility] [place] [address] * Glucose POC (10/17/2016 7:32 AM CDT) Glucose, POC 116 70 - 199 mg/dL [facility] Blood specimen (specimen) 10/17/2016 7:32 AM CDT 10/17/2016 7:32 AM CDT us Bere Burton MD POINT OF CARE TEST ORDERAB LES Final Result Performing Organization Address [facility] Co de Phone Number [facility] [place] [address] * Glucose POC (10/17/2016 6:23 AM CDT) Glucose, POC 101 70 - 199 mg/dL [facility] Blood specimen (specimen) 10/17/2016 6:23 AM CDT 10/17/2016 6:23 AM CDT us Bere Burton MD POINT OF CARE TEST ORDERAB LES Final Result Performing Organization Address [facility] Co de Phone Number [facility] [place] [address] * Glucose POC (10/17/2016 5:17 AM CDT) Glucose, POC 120 70 - 199 mg/dL [facility] Blood specimen (specimen) 10/17/2016 5:17 AM CDT 10/17/2016 5:17 AM CDT us Bere Burton MD POINT OF CARE TEST ORDERAB [place] [address] * Glucose POC (10/17/2016 4:21 AM CDT) Glucose, POC 109 70 - 199 mg/dL [facility] Blood specimen (specimen) 10/17/2016 4:21 AM CDT 10/17/2016 4:21 AM CDT us Bere Burton MD POINT OF CARE TEST ORDERAB [place] [address] * Glucose POC (10/17/2016 3:13 AM CDT) Glucose, POC 105 70 - 199 mg/dL [facility] Blood specimen (specimen) 10/17/2016 3:13 AM CDT 10/17/2016 3:13 AM CDT us Bere Burton MD POINT OF CARE TEST ORDERAB [place] [address] * Glucose POC (10/17/2016 2:18 AM CDT) Glucose, POC 111 70 - 199 mg/dL [facility] Blood specimen (specimen) 10/17/2016 2:18 AM CDT 10/17/2016 2:18 AM CDT us Bere Burton MD POINT OF CARE TEST ORDERAB LES Final Result Performing Organization Address City/[facility]/ZIP Co de Phone Number [facility] [place] [address] * Glucose POC (10/17/2016 1:22 AM CDT) Glucose, POC 107 70 - 199 mg/dL [facility] Blood specimen (specimen) 10/17/2016 1:22 AM CDT 10/17/2016 1:22 AM CDT us Bere Burton MD POINT OF CARE TEST ORDERAB LES Final Result Performing Organization Address City/[facility] Co de Phone Number [facility] [place] [address] * Glucose POC (10/17/2016 12:20 AM CDT) Glucose, POC 118 70 - 199 mg/dL [facility] Blood specimen (specimen) 10/17/2016 12:20 AM CDT 10/17/2016 12:20 AM CDT us Bere Burton MD POINT OF CARE TEST ORDERAB LES Final Result Performing Organization Address City/[facility] [place] [address] * Glucose POC (10/16/2016 11:15 PM CDT) Glucose, POC 125 70 - 199 mg/dL [facility] Blood specimen (specimen) 10/16/2016 11:15 PM CDT 10/16/2016 11:15 PM CDT us Bere Burton MD POINT OF CARE TEST ORDERAB LES Final Result Performing Organization Address City/[facility]/ZIP Co de Phone Number [facility] [place] [address] * Glucose POC (10/16/2016 10:19 PM CDT) Glucose, POC 149 70 - 199 mg/dL [facility] Blood specimen (specimen) 10/16/2016 10:19 PM CDT 10/16/2016 10:19 PM CDT us Bere Burton MD POINT OF CARE TEST ORDERAB LES Final Result Performing Organization Address [facility] Co de Phone Number [facility] [place] [address] * Type and screen (10/16/2016 9:26 PM CDT) Reynaldo, indirect Negative [facility] ABO Rh A Positive [facility] Blood specimen (specimen) 10/16/2016 9:26 PM CDT 10/16/2016 10:22 PM CDT us Vanesa Devries MD LAB BLOOD BANK TEST ORDERABL ES Edited Result - Final Performing Organization Address [facility] [place] [address] * Glucose POC (10/16/2016 8:59 PM CDT) Glucose, POC 92 70 - 199 mg/dL [facility] Blood specimen (specimen) 10/16/2016 8:59 PM CDT 10/16/2016 8:59 PM CDT Bere Burton MD POINT OF CARE TEST ORDERAB LES Final Result Performing Organization Address City/[facility] Co de Phone Number [facility] [place] [address] * Glucose POC (10/16/2016 6:36 PM CDT) Glucose, POC 86 70 - 199 mg/dL [facility] Blood specimen (specimen) 10/16/2016 6:36 PM CDT 10/16/2016 6:36 PM CDT us Bere Burton MD POINT OF CARE TEST ORDERAB LES Final Result Performing Organization Address [facility] de Phone Number [facility] [place] [address] * (ABNORMAL) Differential, auto (10/16/2016 5:49 PM CDT) [facility] Neutrophil pct 68.4 % [facility] Comment:Confirmed by smear r eview Imm gran pct 0.9 % [facility] Lymphocyte pct 16.4 % [facility] Monocyte pct 9.3 % [facility] Eosinophil pct 4.7 % [facility] Basophil pct 0.3 % [facility] Neutrophil abs 8.42(H) 1.70 - 6.50 K/cumm [facility] Imm gran abs 0.11(H) 0.00 - 0.10 K/cumm [facility] Lymphocyte abs 2.02 0.80 - 3.30 K/cumm [facility] Monocyte abs 1.15(H) 0.20 - 0.80 K/cumm [facility] Eosinophil abs 0.58(H) 0.00 - 0.50 K/cumm [facility] Basophil abs 0.04 0.00 - 0.10 K/cumm [facility] Blood specimen (specimen) 10/16/2016 5:49 PM CDT 10/16/2016 7:39 PM CDT us Bere Burton MD LAB BLOOD ORDERABLES Final Result Performing Organization Address City/[facility]/ZIP Co de Phone Number [facility] [place] [address] * (ABNORMAL) CBC with auto differential (10/16/2016 5:49 PM CDT) Pathologist [facility] WBC 12.32(H) 3.80 - 9.90 K/cumm [facility] RBC 4.08 3.90 - 5.20 M/cumm [facility] Hgb 12.1 11.9 - 15.5 g/dL [facility] Hct 36.7 35.6 - 45.5 % [facility] MCV 90.0 81.3 - 96.4 fL [facility] MCH 29.7 27.1 - 33.3 pg [facility] MCHC 33.0 32.3 - 35.7 g/dL [facility] RDW CV 14.0 11.1 - 14.9 % [facility] RDW SD 46.2 35.7 - 48.1 fL [facility] Plt 236 150 - 400 K/cumm [facility] Comment:No clot detected in sample. MPV 10.0 9.1 - 12.3 fL [facility] NRBC 0.0 0.0 - 0.2 % [facility] NRBC abs 0.00 0.00 - 0.01 K/cumm [facility] Blood specimen (specimen) 10/16/2016 5:49 PM CDT 10/16/2016 7:39 PM CDT Bere Burton MD LAB BLOOD ORDERABLES Final Result [facility] [place] [address] * (ABNORMAL) Comprehensive metabolic panel (10/16/2016 5:49 PM CDT) [facility] Sodium 139 135 - 145 mmol/L [facility] Potassium, pl 4.0 3.3 - 4.9 mmol/L [facility] CO2 23 22 - 32 mmol/L [facility] BUN 4(L) 8 - 25 mg/dL [facility] Glucose 65(L) 70 - 199 mg/dL [facility] Creatinine 0.54(L) 0.60 - 1.10 mg/dL [facility] Calcium 9.7 8.5 - 10.3 mg/dL [facility] Chloride 103 97 - 110 mmol/L [facility] Comment:fixed result mapping Albumin 3.5 3.5 - 5.0 g/dL [facility] AST 19 10 - 45 Units/L [facility] ALT 11 7 - 45 Units/L [facility] Alk phos 142(H) 40 - 130 Units/L [facility] Bilirubin, total 0.2 0.1 - 1.2 mg/dL [facility] Protein, pl 7.2 6.5 - 8.5 g/dL [facility] Anion gap 13 2 - 15 mmol/L [facility] Blood specimen (specimen) 10/16/2016 5:49 PM CDT 10/16/2016 7:40 PM CDT Bere Burton MD LAB BLOOD ORDERABLES Final Result [facility] [place] [address] * Uric acid (10/16/2016 5:49 PM CDT) Uric acid 3.6 2.5 - 7.0 mg/dL [facility] Blood specimen (specimen) 10/16/2016 5:49 PM CDT 10/16/2016 7:40 PM CDT Bere Burton MD LAB BLOOD ORDERABLES Final Result [facility] [place] [address] * Urinalysis, microscopic (10/16/2016 5:49 PM CDT) RBC, ur 0 0 - 3 /HPF [facility] WBC, ur 5 0 - 5 /HPF [facility] Bacteria, ur Trace Trace [facility] Epithelial cells, renal, ur 0 0 - 0 /HPF [facility] Epithelial cells, squamous, ur 9 /LPF [facility] Mucus, ur Small /HPF [facility] Urine 10/16/2016 5:49 PM CDT 10/16/2016 7:41 PM CDT Bere Burton MD LAB URINE ORDERABLES Final Result [facility] [place] [address] * (ABNORMAL) Urinalysis reflex to microscopic (10/16/2016 5:49 PM CDT) Color, ur Yellow Yellow [facility] Clarity, ur Cloudy(A) Clear [facility] Specific gravity, ur 1.010 1.003 - 1.030 [facility] pH, ur 7.0 5.0 - 8.0 [facility] Albumin, ur Negative Trace [facility] Glucose, ur ql Negative Negative [facility] Ketones, ur Negative Negative [facility] Bilirubin, ur Negative Negative [facility] Blood, ur Negative Negative [facility] Urobilinogen, ur <2.0 <2.0 mg/dL [facility] Nitrites, ur Negative Negative [facility] Leukocyte esterase, ur 1+(A) Negative [facility] Urine 10/16/2016 5:49 PM CDT 10/16/2016 7:41 PM CDT us Bere Burton MD LAB URINE ORDERABLES Final Result Performing Organization Address City/[facility]/ZIP Co de Phone Number [facility] [place] [address] documented in this encounter Visit Diagnoses Not on filedocumented in this encounter Care Teams Associate Professor Of History Relationship Specialty Start Date End Date Mariia Gardner MD PCP - General 08/18/16 08/18/18 documented as of this encounter
--- OUTSIDE RECORDS SUMMARY | 2024-06-08 20:17 | XMS_ITS | Encounter Summary ---
Author Organization [facility] Healthcare Address [address] [place] [address] Care Team Providers Care Director Of Informatics Name Role Phone Mariia Gardner MD Primary Care Provider +1- [phone] Encounter Details Date Type Department Care Team (Latest Contact Info) Description 08/18/2016 3:59 PM FIELD OPERATIONS SUPERVISOR - 08/18/2016 11:59 PM [facility] Hospital Encounter [facility] OP INTERIM [phone] Mariia Gardner MD [address] [facility] [phone] [place] [address] Discharge Disposition: Discharge to home or self care Social History Tobacco Use Types Packs/Day Years Used Date Smoking Tobacco: Former Comments Unknown Sex and Gender Information Value Date Recorded Sex Assigned at Not on file Legal Sex Female 3:29 AM FIELD OPERATIONS SUPERVISOR Gender Identity Not on file Sexual Orientation Not on file documented as of this encounter Discharge Disposition Disposition Code Departure Means Destination Discharge to home or self care documented in this encounter Plan of Treatment Not on file documented as of this encounter Visit Diagnoses Not on filedocumented in this encounter Care Teams Director Of Informatics Relationship Specialty Start Date End Date Mariia Gardner MD PCP - General 08/18/16 08/18/18 documented as of this encounter
--- OUTSIDE RECORDS SUMMARY | 2024-06-08 20:17 | XMS_ITS | Encounter Summary ---
Author Organization [facility] Facility Care Team Providers Care President Name Role Phone Chad Goodson MD Primary Care Provide r Encounter Details Date Type Department Care Team (Late st Contact Info) Description 05/02/2016 7:54 AM MENTAL HEALTH ASSISTANT - 05/02/2016 11:59 PM [facility] Hospital Encounter [facility] Adelita Varela MD [address] [place] [address] [place] [address] [place] [address] Pre-existing type 2 diabetes mellitus during in first trimester; Type 2 diabetes mellitus without complications (CMS/HCC); 12 weeks gestation of Social History Tobacco Use Types Packs/Day Years Used Date Smoking Tobacco: Former Comments Unknown Sex and Gender Information Value Date Recorded Sex Assigned at Not on file Legal Sex Female 3:29 AM MENTAL HEALTH ASSISTANT Gender Identity Not on file Sexual Orientation Not on file documented as of this encounter Plan of Treatment Not on file documented as of this encounter Visit Diagnoses Diagnosis Pre-existing type 2 diabetes mellitus during in first trimester Type 2 diabetes mellitus without complications (CMS/HCC) (HCC) 12 weeks gestation of documented in this encounter Care Teams President Relationship Specialty Start Date End Date Chad Goodson MD PCP - General 09/13/14 08/17/16 documented as of this encounter
--- OUTSIDE RECORDS SUMMARY | 2024-06-08 20:17 | XMS_ITS | Encounter Summary ---
Author Organization [facility] Healthcare Address [address] [place] [address] Care Team Providers Care Grease Rack Worker Name Role Phone Chad Goodson MD Primary Care Provide r Encounter Details Date Type Department Care Team (Late st Contact Info) Description 06/01/2014 4:42 PM NURSE TRANSITIONAL - 06/01/2014 11:59 PM NURSE TRANSITIONAL Hospital Encounter [facility] Chad Goodson MD [address] [place] [address] Other malaise and fatigue; Obesity Social History Tobacco Use Types Packs/Day Years Used Date Smoking Tobacco: Never Assessed Comments Unknown Sex and Gender Information Value Date Recorded Sex Assigned at Not on file Legal Sex Female 3:29 AM NURSE TRANSITIONAL Gender Identity Not on file Sexual Orientation Not on file documented as of this encounter Plan of Treatment Not on file documented as of this encounter Procedures Procedure Name Priority Date/Time Associated Diagnosis Comments SERUM THYROID-STIMULATING HORMONE (TSH) Routine 06/01/2014 4:50 PM NURSE TRANSITIONAL SERUM LIPID PANEL Routine 06/01/2014 4:5 0 PM NURSE TRANSITIONAL SERUM COMPREHENSIVE METABOLIC PANEL Routine 06/01/2014 4:50 PM NURSE TRANSITIONAL BLOOD WBC CELL MORPHOLOGIC EXAM, AUTO Routine 06/01/2014 4:50 PM NURSE TRANSITIONAL BLOOD CELL COUNT (CBC) Routine 4 4:50 PM NURSE TRANSITIONAL BLOOD GLYCATED HEMOGLOBIN Routine 06/01/2014 10:50 AM NURSE TRANSITIONAL DISCHARGE LABORATORY CUMULATIVE REPORT Routine 06/01/2014 12:00 AM NURSE TRANSITIONAL documented in this encounter Results * Serum thyroid-stimulating hormone (TSH) (06/01/2014 4:50 PM NURSE TRANSITIONAL) TSH 0.93 0.35 - 4.80 mcIUnits/ml HISTORICAL RESULTS Serum 06/01/2014 4:50 PM NURSE TRANSITIONAL us Chad Mccollum MD LAB BLOOD ORDERABLES Final Result HISTORICAL RESULTS * Serum lipid panel (06/01/2014 4:50 PM NURSE TRANSITIONAL) Cholesterol 204 mg/dl HISTORIC AL RESULTS Comment: [...] THAN 300 MG/DL. Serum 06/01/2014 4:50 PM NURSE TRANSITIONAL Chad Mccollum MD LAB BLOOD ORDERABLES Final Result Performing Organization Address City/[facility] Co de Phone Number HISTORICAL RESULTS * Blood cell count (CBC) (06/01/2014 4:50 PM NURSE TRANSITIONAL) WBC 10.0 4.0 - 10.5 K/cumm HISTORICAL RESULTS RBC 4.37 4.20 - 5.40 M/cumm HISTORICAL RESULTS Hgb 13.6 12.0 - 16.0 g/dl HISTORICAL RESULTS Hct 40.9 37.0 - 47.0 % HISTORICAL RESULTS MCV 93.6 77.0 - 97.0 fl HISTORICAL RESULTS MCH 31.1 23.0 - 34.0 pg HISTORICAL RESULTS MCHC 33.3 32.0 - 36.0 g/dl HISTORICAL RESULTS Rdw 13.2 11.5 - 14.5 % HISTORICAL RESULTS Platelets 301 150 - 400 K/cumm HISTORICAL RESULTS MPV 9.7 7.4 - 10.4 fl HISTORICAL RESULTS Blood specimen (specimen) 06/01/2014 4:50 PM NURSE TRANSITIONAL Chad Mccollum MD LAB BLOOD ORDERABLES Final Result Performing Organization Address City/[facility] de Phone Number HISTORICAL RESULTS * (ABNORMAL) Blood WBC cell morphologic exam, auto (06/01/2014 4:50 PM NURSE TRANSITIONAL) Pathologist [facility] Lymphocytes 25.4 25.0 - 33.0 % HISTORICAL RESULTS Monos 9.4 0.0 - 13.0 % HISTORICAL RESULTS Neutrophils 58.7 54.0 - 69.0 % HISTORICAL RESULTS Eosinophils 5.9 0.0 - 10.0 % HISTORICAL RESULTS Basophils 0.4 0.0 - 1.0 % HISTORICAL RESULTS Immature granulocytes 0.2 0.0 - 1.0 % HISTORICAL RESULTS Lymphocytes, abs 2.6 1.2 - 3.4 K/cumm HISTORICAL RESULTS Monocytes, absolute 0.9(L) 1.1 - 1.9 K/cumm HISTORICAL RESULTS Neutrophils, abs 5.9 1.4 - 6.5 K/cumm HISTORICAL RESULTS Eosinophils, abs 0.6 0.0 - 0.7 cells/cumm HISTORICAL RESULTS Basophils, abs 0.0 0.0 - 0.2 K/cumm HISTORICAL RESULTS Immature granulocyte, abs 0.0 0.0 - 0.0 K/cumm HISTORICAL RESULTS Blood specimen (specimen) 06/01/2014 4:50 PM NURSE TRANSITIONAL Chad Mccollum MD LAB BLOOD ORDERABLES Final Result HISTORICAL RESULTS * Serum comprehensive metabolic panel (06/01/2014 4:50 PM NURSE TRANSITIONAL) BUN 12.0 6.0 - 23.0 mg/dl HISTORICAL RESULTS Sodium 137 134 - 143 mmol/L HISTORICAL RESULTS Potassium, sr 3.5 3.4 - 5.0 mmol/L HISTORICAL RESULTS Chloride 103 99 - 108 mmol/L HISTORICAL RESULTS CO2 28 23 - 32 mmol/L HISTORICAL RESULTS Glucose 88 70 - 199 mg/dl HISTORICAL RESULTS Comment: Note:The glucose is assumed non fasting Fastin-99 mg/dl Random: 70-199 mg/dl Either a fasting glucose > 126 mg/dL or a random glucose > 200 mg/dL plus symptoms is diagnostic of diabetes when confirmed on another day. Fasting values > 100 mg/dl but < 125 mg/dL are diagnostic of impaired fasting glucose. New reference ranges implemented 05/02/2013. Creatinine 0.76 0.60 - 1.30 mg/dl HISTORICAL RESULTS Comment: eGFR: >70 ml/min/1.73sq.m if non -[place]. eGFR: >70 ml/min/1.73sq.m if -[place]orese. AVE GFR for 20-29 yr. age group: ??116 ml/min/1.73sq.m Calculated using the MDRD Equation BUN/creat ratio 16 10 - 20 HIST ORICAL RESULTS A. gap 10 7 - 14 mmol/L HISTORICAL RESULTS Protein, sr 7.7 6.4 - 8.0 g/dl HISTORICAL RESULTS Alb 4.2 3.3 - 4.5 g/dl HISTORICAL RESULTS Alb/glob ratio 1.2 1.1 - 1.8 HISTO RICAL RESULTS Calcium 9.3 8.6 - 9.8 mg/dl HISTORICAL RESULTS Bilirubin 0.4 0.0 - 1.1 mg/dl HISTORICAL RESULTS Alk phos 100 44 - 125 Units/L HISTORICAL RESULTS AST 12 5 - 40 Units/L HISTORICAL RESULTS ALT 19 15 - 70 Units/L HISTORICAL RESULTS Serum 06/01/2014 4:50 PM NURSE TRANSITIONAL us Chad Mccollum MD LAB BLOOD ORDERABLES Final Result HISTORICAL RESULTS * (ABNORMAL) Blood glycated hemoglobin (06/01/2014 10:50 AM NURSE TRANSITIONAL) Glycated hemoglobin 6.3(H) 4.2 - 5.9 % HISTORICAL RESULTS Blood specimen (specimen) 06/01/2014 10:50 AM NURSE TRANSITIONAL Narrative HISTORICAL RESULTS - 06/01/2014 11:33 AM NURSE TRANSITIONAL Estimated average Glucore A1C(%) ?? mg/dl ? A1C(%) ?? mg/dl ?? 5.0 ?97 ?9.0 ?212 ?? 5.5 ? 111 ?9.5 ?226 ?? 6.0 ? 126 ? 10.0 ?240 ?? 6.5 ? 140 ? 10.5 ?255 ?? 7.0 ? 154 ? 11.0 ?269 ?? 7.5 ? 169 ? 11.5 ?283 ?? 8.0 ? 183 ? 12.0 ?298 ?? 8.5 ? 197 95% Confidence levels are +/- 20% The ADA recommends reporting an estimated Average Glucose (eAG) with all hemoglobin A1C results using the equation derived from a study of 507 normal adults and diabetic adults (in stable comtrol). Minority populations were underrepresented. Children and women were not included. (Diabetes Care 2008; 31:8663-4107) us Chad Mccollum MD LAB BLOOD ORDERABLES Final Result HISTORICAL RESULTS * Discharge Laboratory Cumulative Report (06/01/2014 12:00 AM NURSE TRANSITIONAL) 06/01/2014 Narrative HISTORICAL RESULTS - 06/03/2014 2:47 AM NURSE TRANSITIONAL Patient No: [id number] ? [facility] Patient Name: EVANGELIST CHAD Markell ?[facility] Healthcare Age: 29 YRS ?: 1985 ?Sex:F ?[address] )[phone] ?? Adm Dt: 06/01/2014 ?[place], [place] ??[address] Created: 06/03/2014 ??0247 ?? Pt. Type: R ? Discharge Dt: 06/01/2014 ? Pathologists: Freya English MD Admit DrAlessia Attend Dr: CHAD GOODSON ? BLOOD CELL COUNTS ?Collection Date: ?06/01/14 ?Collection Time: ?1650 ? Ref Range: ?? Units: [4.00-10.50] /CMM ? WBC X 10^3 ? 10.03 [4.20-5.40] ??/CMM ? RBC X 10^6 ?4.37 [12.0-16.0] ??G/DL ? HGB ? 13.6 [37.0-47.0] ??% ?HCT ? 40.9 [77.0-97.0] ??FL ? MCV ? 93.6 [23.0-34.0] ??PG ? MCH ? 31.1 [32.0-36.0] ??% ?MCHC ?33.3 [11.5-14.5] ??% ?RDW ? 13.2 [150-400] ?? /CMM ? PLT X 10^3 ? 301 ?BLOOD CELL DIFFERENTIAL ?Collection Date: ?06/01/14 ?Collection Time: ?1650 ? Ref Range: ?? Units: [54.0-69.0] ??% ?NEUTROPHILS ? 58.7 [25.0-33.0] ??% ?LYMPHOCYTES ? 25.4 [0.0-13.0] ??% ?MONOCYTES ?9.4 [0.0-10.0] ??% ?EOSINOPHILS ?5.9 [0.0-1.0] ?? % ?BASOPHILS ?0.4 ? /CMM ? A LYMPHOCYTE ? 2.6 [0.0-1.0] ?? % ?IMM GRAN % ? 0.2 [0.00-0.02] ??/CMM ? A IMM GRAN ?0.02 [1.1-1.9] ?? /CMM ? A MONOCYTE ? 0.9 L [1.4-6.5] ?? /CMM ? A NEUTROPHIL ? 5.9 [0.0-0.7] ?? /CMM ? A EOSINOPHIL ? 0.6 [0.0-0.2] ?? /CMM ? A BASOPHIL ? 0.0 Footnotes and Symbols: L = Low ?? CONTINUED ?Page: ?? 1 Patient No: [id number] ? [facility] Patient Name: CHAD PHELAN ?[facility] Healthcare Age: 29 YRS ?: 1985 ?Sex:F ?[address] )[phone] ?? Adm Dt: 06/01/2014 ?[place] ??[address] Created: 06/03/2014 ??0247 ?? Pt. Type: R ? Discharge Dt: 06/01/2014 ? Pathologists: Freya English MD Admit Attend Dr: CHAD GOODSON ?SPECIAL HEMATOLOGY ?Collection Date: ?06/01/14 ?Collection Time: ?1650 ? Ref Range: ?? Units: [4.2-5.9] ?? % ?HEMOGLOBIN A1C ? 6.3 Hf Footnotes and Symbols: H = High, f = Footnote HEMOGLOBIN A1C (02/05/11 -- Current) Estimated average Glucose A1C(%) ?? mg/dl ? A1C(%) ?? mg/dl ?? 5.0 ?97 ?9.0 ?212 ?? 5.5 ? 111 ?9.5 ?226 ?? 6.0 ? 126 ? 10.0 ?240 ?? 6.5 ? 140 ? 10.5 ?255 ?? 7.0 ? 154 ? 11.0 ?269 ?? 7.5 ? 169 ? 11.5 ?283 ?? 8.0 ? 183 ? 12.0 ?298 ?? 8.5 ? 197 95% Confidence levels are +/- 20% The ADA recommends reporting an estimated Average Glucose (eAG) with all hemoglobin A1C results using the equation derived from a study of 507 normal adults and diabetic adults (in stable control). Minority populations were underrepresented. Children and women were not included. (Diabetes Care 2008; 31:0011-4492) ?? CONTINUED ?Page: ?? 2 Patient No: [id number] ? [facility] Patient Name: CHAD PHELAN ?[facility] Age: 29 YRS ?: 1985 ?Sex:F ?[address] )[phone] ?? Adm Dt: 06/01/2014 ?[place] ??[id number] Created: 06/03/2014 ??0247 ?? Pt. Type: R ? Discharge Dt: 06/01/2014 ? Pathologists: Freya English MD Admit Attend Dr: CHAD GOODSON ? GENERAL CHEMISTRY ?Collection Date: ?06/01/14 ?Collection Time: ?1650 ? Ref Range: ?? Units: [134-143] ?? MMOL/L ? SODIUM ? 137 [3.4-5.0] ?? MMOL/L ? POTASSIUM ?3.5 [99.0-108.0] MMOL/L ? CHLORIDE ? 103.0 [23.0-32.0] ??MMOL/L ? TOTAL CO2 ? 27.8 ?? [7-14] ?MMOL/L ? ANION GAP ? 10 ??[70-199] ?? MG/DL ?GLUCOSE ? 88 f [6.4-8.0] ?? G/DL ? TOTAL PROTEIN ?7.7 [3.3-4.5] ?? G/DL ? ALBUMIN ?4.2 [1.1-1.8] ?A/G RATIO ?1.2 [8.6-9.8] ?? MG/DL ?CALCIUM ?9.3 [0.0-1.1] ?? MG/DL ?BILI TOTAL ? 0.4 ??[44-125] ?? U/L ?ALK PHOS ? 100 ?? [5-40] ?U/L ?AST(SGOT) ? 12 f ??[15-70] ?U/L ?ALT(SGPT) ? 19 f [6.0-23.0] ??MG/DL ?BUN ? 12.0 ??[10-20] ? B/C RATIO ? 16 Footnotes and Symbols: f = Footnote GLUCOSE (05/24/13 -- Current) Note:The glucose is assumed non fasting Fastin-99 mg/dl Random: 70-199 mg/dl Either a fasting glucose > 126 mg/dL or a random glucose > 200 mg/dL plus symptoms is diagnostic of diabetes when confirmed on another day. Fasting values > 100 mg/dl but < 125 mg/dL are diagnostic of impaired fasting glucose. New reference ranges implemented 05/02/2013. AST(SGOT) (11/03/13 -- Current) ALT(SGPT) (01/11/13 -- Current) ?? CONTINUED ?Page: ?? 3 Patient No: [id number] ? [facility] Patient Name: CHAD PHELAN ?[facility] Healthcare Age: 29 YRS ?: 1985 ?Sex:F ?[address] )[phone] ?? Adm Dt: 06/01/2014 ?[place], [place] ??[address] Created: 06/03/2014 ??0247 ?? Pt. Type: R ? Discharge Dt: 06/01/2014 ? Pathologists: Freya English MD Admit Attend Dr: CHAD GOODSON ? GENERAL CHEMISTRY ?Collection Date: ?06/01/14 ?Collection Time: ?1650 ? Ref Range: ?? Units: [0.60-1.30] ??MG/DL ?CREATININE ?0.76 f ?06/01/14 1650 eGFR: >70 ml/min/1.73sq.m if non -[place]. eGFR: >70 ml/min/1.73sq.m if -[place]orese. AVE GFR for 20-29 yr. age group: ??116 ml/min/1.73sq.m Calculated using the MDRD Equation FOOTNOTE ADDED ON ?? 06/01/14 ?? AT 1732 BY 999 ?LIPIDS ?Collection Date: ?06/01/14 ?Collection Time: ?1650 ? Ref Range: ?? Units: ? MG/DL ?CHOLESTEROL ?204 f ? MG/DL ?HDL CHOLESTEROL ? 49 f Footnotes and Symbols: f = Footnote CHOLESTEROL (07/04/10 -- Current) DESIRABLE = LESS THAN 200 MG/DL BORDERLINE HIGH = 200-239 MG/DL HIGH= GREATER THAN 239 MG/DL HDL CHOLESTEROL (07/04/10 -- Current) LOW HDL CHOLESTEROL = Less than 40 mg/dL NORMAL HDL CHOLESTEROL = 40-59 mg/dL HIGH HDL CHOLESTEROL = Greater than 59 mg/dL ?? CONTINUED ?Page: ?? 4 Patient No: [id number] ? [facility] Patient Name: CHAD PHELAN ?[facility] Age: 29 YRS ?: 1985 ?Sex:F ?[address] )[phone] ?? Adm Dt: 06/01/2014 ?[place] ??[id number] Created: 06/03/2014 ??0247 ?? Pt. Type: R ? Discharge Dt: 06/01/2014 ? Pathologists: Freya Greggit Dr. Bradley Dr: CHAD GOODSON ?LIPIDS ?Collection Date: ?06/01/14 ?Collection Time: ?1650 ? Ref Range: ?? Units: ? MG/DL ?TRIGLYCERIDES ?119 f ?06/01/14 1650 Current guidelines recommend that lipid screen be ??performed on fasting blood samples for heart risk stratification. FOOTNOTE ADDED ON ?? 06/01/14 ?? AT 1732 BY 999 ? MG/DL ?NON HDL CALC ? 155 f ?LDL CHOL CALC ?131 f Footnotes and Symbols: f = Footnote TRIGLYCERIDES (10/06/12 -- Current) NORMAL = LESS THAN 150 MG/DL BORDERLINE HIGH = 150-199 MG/DL HIGH = 200-499 MG/DL VERY HIGH = GREATER THAN OR EQUAL TO 500 MG/DL NON HDL CALC (09/27/12 -- Current) OPTIMAL LESS THAN 130 LOW RISK 130 -159 MODERATE RISK 160 - 189 HIGH RISK GREATER THAN OR EQUAL TO 190 LDL CHOL CALC (10/07/12 -- Current) LESS THAN 100 MG/DL OPTIMAL 100 - 129 MG/DL NEAR OPTIMAL / ABOVE OPTIMAL 130 - 159 MG/DL BORDERLINE HIGH 160 - 189 MG/DL HIGH GREATER THAN OR = 190 MG/DL VERY HIGH LDL VALUES ARE NOT VALID WHEN THE TOTAL TRIGLYCERIDE IS GREATER THAN 300 MG/DL. ?? CONTINUED ?Page: ?? 5 Patient No: [id number] ? [facility] Patient Name: CHAD PHELAN ?[facility] Age: 29 YRS ?: 1985 ?Sex:F ?[address] )[phone] ?? Adm Dt: 06/01/2014 ?[place] ??[address] Created: 06/03/2014 ??0247 ?? Pt. Type: R ? Discharge Dt: 06/01/2014 ? Pathologists: Freya English MD Admit Attend Dr: CHAD GOODSON ?THYROID FUNCTION TESTS ?Collection Date: ?06/01/14 ?Collection Time: ?1650 ? Ref Range: ?? Units: [0.35-4.80] ??uIU/ML ? TSH ? 0.93 ?? END OF CHART ? Page: ?? 6 us Historical Provider LAB BLOOD ORDERABLES Bouchra l Result HISTORICAL RESULTS documented in this encounter Visit Diagnoses Diagnosis Other malaise and fatigue Obesity Obesity, unspecified documented in this encounter Care Teams Grease Rack Worker Relationship Specialty Start Date End Date Chad Goodson MD PCP - General 05/31/14 09/12/14 documented as of this encounter
--- OUTSIDE RECORDS SUMMARY | 2024-06-08 20:17 | XMS_ITS | Encounter Summary ---
Author Organization [facility] Healthcare Address [address] [place] [address] Care Team Providers Care Certified Activities Director Name Role Phone Mariia Gardner MD Primary Care Provider +1- [phone] Encounter Details Date Type Department Care Team (Latest Contact Info) Description 10/03/2016 5:04 PM CDT - 10/03/2016 11:59 PM CDT Hospital Encounter [facility] OP INTERIM [phone] Shyla Eddy MD [address] [facility] [phone] [place] [address] Discharge Disposition: Discharge to home or self care Social History Tobacco Use Types Packs/Day Years Used Date Smoking Tobacco: Former Comments Unknown Sex and Gender Information Value Date Recorded Sex Assigned at Not on file Legal Sex Female 3:29 AM PRODUCE SORTER Gender Identity Not on file Sexual Orientation Not on file documented as of this encounter Discharge Disposition Disposition Code Departure Means Destination Discharge to home or self care documented in this encounter Plan of Treatment Not on file documented as of this encounter Procedures Procedure Name Priority Date/Time Associated Diagnosis Comments HIV 1/2 ANTIBODY PLUS P24 ANTIGEN Routine Gen Lab 10/03/2016 5:14 PM CDT RPR Routine Gen Lab 10/03/2016 5:14 PM CDT CBC WITHOUT DIFFERENTIAL Routine Gen Lab 10/03/2016 5:14 PM CDT documented in this encounter Results * RPR, serum (10/03/2016 5:14 PM CDT) Pathologist [facility] RPR Nonreactive [facility] Blood specimen (specimen) 10/03/2016 5:14 PM CDT 10/03/2016 5:31 PM CDT Shyla Eddy MD LAB MICROBIOLOGY - GEN ERAL ORDERABLES Final Result Performing Organization Address [facility] Co de Phone Number [facility] [place] [address] * HIV-1 and HIV-2 antibody with P24 antigen immunoassay (10/03/2016 5:14 PM CDT) [facility] HIV 1/2 ab + p24 ag Nonreactive Nonreactive [facility] Comment:Negative for HIV-1 a ntigen and HIV-1/ HIV-2 antibodies. No laboratory evidence of HIV infection. If acute HIV infection is suspected, consider testing for HIV-1 RNA. Blood specimen (specimen) 10/03/2016 5:14 PM CDT 10/03/2016 5:31 PM CDT Shyla Eddy MD LAB MICROBIOLOGY - GEN ERAL ORDERABLES Final Result Performing Organization Address [facility] de Phone Number [facility] Department [place] [address] * (ABNORMAL) CBC without differential (10/03/2016 5:14 PM CDT) [facility] WBC 10.84(H) 3.80 - 9.90 K/cumm [facility] RBC 3.79(L) 3.90 - 5.20 M/cumm [facility] Hgb 11.3(L) 11.9 - 15.5 g/dL [facility] Hct 34.5(L) 35.6 - 45.5 % [facility] MCV 91.0 81.3 - 96.4 fL [facility] MCH 29.8 27.1 - 33.3 pg [facility] MCHC 32.8 32.3 - 35.7 g/dL [facility] RDW CV 13.9 11.1 - 14.9 % [facility] RDW SD 46.0 35.7 - 48.1 fL [facility] NRBC 0.0 0.0 - 0.2 % [facility] NRBC abs 0.00 0.00 - 0.01 K/cumm [facility] Plt 226 150 - 400 K/cumm [facility] MPV 9.6 9.1 - 12.3 fL [facility] Blood specimen (specimen) 10/03/2016 5:14 PM CDT 10/03/2016 5:36 PM CDT us Shyla Eddy MD LAB BLOOD ORDERABLES F inal Result Performing Organization Address City/State/[facility] Co de Phone Number [facility] Department [place] [address] documented in this encounter Visit Diagnoses Not on filedocumented in this encounter Care Teams Certified Activities Director Relationship Specialty Start Date End Date Mariia Gardner MD PCP - General 08/18/16 08/18/18 documented as of this encounter
--- OUTSIDE RECORDS SUMMARY | 2024-06-08 20:17 | XMS_ITS | Encounter Summary ---
Author Organization [facility] Healthcare Address [address] [place] [address] Care Team Providers Care Piano And Organ Refinisher Name Role Phone Lis Goodson MD Primary Care Provide r Encounter Details Date Type Department Care Team (Late st Contact Info) Description 07/10/2014 8:59 AM CLINICAL EDITOR - 08/30/2014 11:59 PM CDT Hospital Encounter [facility] CLINCON[facility] Lis Goodson MD [address] [id number] Encounter for other physical therapy; Pain in joint, shoulder region Social History Tobacco Use Types Packs/Day Years Used Date Smoking Tobacco: Never Assessed Comments Unknown Sex and Gender Information Value Date Recorded Sex Assigned at Not on file Legal Sex Female 3:29 AM CLINICAL EDITOR Gender Identity Not on file Sexual Orientation Not on file documented as of this encounter Plan of Treatment Not on file documented as of this encounter Visit Diagnoses Diagnosis Encounter for other physical therapy Pain in joint, shoulder region documented in this encounter Care Teams Piano And Organ Refinisher Relationship Specialty Start Date End Date Lis Goodson MD PCP - General 05/31/14 09/12/14 documented as of this encounter
--- OUTSIDE RECORDS SUMMARY | 2024-06-08 20:17 | XMS_ITS | Encounter Summary ---
Author Organization [facility] Healthcare Address [address] [place] [address] Care Team Providers Care Front Office Spec Name Role Phone Mariia Gardner MD Primary Care Provider +1- [phone] Encounter Details Date Type Department Care Team (Latest Contact Info) Description 08/18/2016 2:24 PM LABORER BROODER FARM - 08/18/2016 11:59 PM [facility] Hospital Encounter [facility] OP INTERIM [phone] Abebe Kang MD [address] [facility] [address] [place] [address] Discharge Disposition: Discharge to home or self care Social History Tobacco Use Types Packs/Day Years Used Date Smoking Tobacco: Former Comments Unknown Sex and Gender Information Value Date Recorded Sex Assigned at Not on file Legal Sex Female 3:29 AM LABORER BROODER FARM Gender Identity Not on file Sexual Orientation Not on file documented as of this encounter Discharge Disposition Disposition Code Departure Means Destination Discharge to home or self care documented in this encounter Plan of Treatment Not on file documented as of this encounter Visit Diagnoses Not on filedocumented in this encounter Care Teams Front Office Spec Relationship Specialty Start Date End Date Mariia Gardner MD PCP - General 08/18/16 08/18/18 documented as of this encounter
--- OUTSIDE RECORDS SUMMARY | 2024-06-08 20:17 | XMS_ITS | Encounter Summary ---
Author Organization [facility] Facility Care Team Providers Care Purchasing Buyer Name Role Phone Chad Goodson MD Primary Care Provide r Encounter Details Date Type Department Care Team (Late st Contact Info) Description 05/19/2016 9:36 AM WEALTH MANAGEMENT CONSULTANT - 05/19/2016 11:59 PM [facility] Hospital Encounter [facility] CLINCONV Mariia Gardner MD [address] [place] [phone] [place] [address] Pre-existing diabetes mellitus during Social History Tobacco Use Types Packs/Day Years Used Date Smoking Tobacco: Former Comments Unknown Sex and Gender Information Value Date Recorded Sex Assigned at Not on file Legal Sex Female 3:29 AM WEALTH MANAGEMENT CONSULTANT Gender Identity Not on file Sexual Orientation Not on file documented as of this encounter Plan of Treatment Not on file documented as of this encounter Procedures Procedure Name Priority Date/Time Associated Diagnosis Comments ELECTROCARDIOGRAPHY (ECG) 05/19/2016 documented in this encounter Results * ELECTROCARDIOGRAPHY (ECG) (05/19/2016) Narrative 05/19/2016 Ordered by an unspecified provider. Historical Provider ECG ORDERABLES Final Res ult documented in this encounter Visit Diagnoses Diagnosis Pre-existing diabetes mellitus during documented in this encounter Care Teams Purchasing Buyer Relationship Specialty Start Date End Date Chad Goodson MD PCP - General 09/13/14 2 documented as of this encounter
--- OUTSIDE RECORDS SUMMARY | 2024-06-08 20:17 | XMS_ITS | Encounter Summary ---
Author Organization [facility] Facility Care Team Providers Care Sample Maker Hand Name Role Phone Rudolph Goodson MD Primary Care Provide r Encounter Details Date Type Department Care Team (Late st Contact Info) Description 07/25/2016 8:07 AM AGENCY OPERATOR - 07/25/2016 11:59 PM [facility] Hospital Encounter [facility] CLINCONMarleny Moreno MD [address] [phone] Supervision of other high risk pregnancies, second trimester; Maternal care for excessive growth in second trimester; Diabetes mellitus in in second trimester; 24 weeks gestation of Social History Tobacco Use Types Packs/Day Years Used Date Smoking Tobacco: Former Comments Unknown Sex and Gender Information Value Date Recorded Sex Assigned at Not on file Legal Sex Female 3:29 AM AGENCY OPERATOR Gender Identity Not on file Sexual Orientation Not on file documented as of this encounter Plan of Treatment Not on file documented as of this encounter Visit Diagnoses Diagnosis Supervision of other high risk pregnancies, second trimester Maternal care for excessive growth in second trimester Diabetes mellitus in in second trimester 24 weeks gestation of documented in this encounter Care Teams Sample Maker Hand Relationship Specialty Start Date End Date Rudolph Goodson MD PCP - General 09/13/14 08/17/16 documented as of this encounter
--- OUTSIDE RECORDS SUMMARY | 2024-06-08 20:17 | XMS_ITS | Encounter Summary ---
Author Organization [facility] Healthcare Address [address] [place] [address] Care Team Providers Care Public Health Sanitarian Name Role Phone Mariia Gardner MD Primary Care Provider +1- [phone] Encounter Details Date Type Department Care Team (Latest Contact Info) Description 10/13/2016 9:39 AM CDT - 10/13/2016 11:59 PM CDT Hospital Encounter [facility] OP INTERIM [phone] Miscellaneous, Not In File Brittny Chow MD [address] [facility] [address] [place] [id number] Discharge Disposition: Discharge to home or self care Social History Tobacco Use Types Packs/Day Years Used Date Smoking Tobacco: Former Comments Unknown Sex and Gender Information Value Date Recorded Sex Assigned at Not on file Legal Sex Female 3:29 AM SHEET METAL FABRICATOR Gender Identity Not on file Sexual Orientation Not on file documented as of this encounter Discharge Disposition Disposition Code Departure Means Destination Discharge to home or self care documented in this encounter Plan of Treatment Not on file documented as of this encounter Visit Diagnoses Not on filedocumented in this encounter Care Teams Public Health Sanitarian Relationship Specialty Start Date End Date Mariia Gardner MD PCP - General 08/18/16 08/18/18 documented as of this encounter
--- OUTSIDE RECORDS SUMMARY | 2024-06-08 20:17 | XMS_ITS | Encounter Summary ---
Author Organization [facility] Healthcare Address [address] [place] [address] Care Team Providers Care Apple Sorter Name Role Phone Unavailable Primary Care Provider Unavailabl e Encounter Details Date Type Department Care Team (Late st Contact Info) Description 05/09/2013 6:42 PM ASSISTANT SUPERINTENDENT - 05/09/2013 8:28 PM ASSISTANT SUPERINTENDENT Hospital Encounter [facility] Mallika Simental MD [address] [place] [address] Bronchitis Social History Tobacco Use Types Packs/Day Years Used Date Smoking Tobacco: Never Assessed Comments Unknown Sex and Gender Information Value Date Recorded Sex Assigned at Not on file Legal Sex Female 3:29 AM ASSISTANT SUPERINTENDENT Gender Identity Not on file Sexual Orientation Not on file documented as of this encounter Plan of Treatment Not on file documented as of this encounter Procedures Procedure Name Priority Date/Time Associated Diagnosis Comments XR CHEST PA LATERAL 2 VIEWS Routine 05/09/2013 7:45 PM ASSISTANT SUPERINTENDENT URINE CHORIONIC GONADOTROPIN (HCG) Routine 05/09/2013 7:35 PM ASSISTANT SUPERINTENDENT INFLUENZA A, B AG Routine 05/09/2013 7:3 5 PM ASSISTANT SUPERINTENDENT DISCHARGE LABORATORY CUMULATIVE REPORT Routine 05/09/2013 12:00 AM ASSISTANT SUPERINTENDENT documented in this encounter Results * XR Chest Pa Lateral 2 Vw (05/09/2013 7:45 PM ASSISTANT SUPERINTENDENT) Anatomical Region Laterality Modality Body, Chest N/A Radiographic Aisha ging 05/09/2013 7:45 PM ASSISTANT SUPERINTENDENT Narrative 05/10/2013 2:05 PM ASSISTANT SUPERINTENDENT XR Chest 2 Views ?[id number] ??Acc#: ??[id number] DATE OF EXAM: ??May 09 2013 CLINICAL HISTORY: Cough and congestion. ??Some chest pain. RESULT: PA and lateral views of the chest were obtained. The heart, pulmonary vessels and lung meadows appear normal. ??A process such as bronchitis may be present without radiographic findings. IMPRESSION: ESSENTIALLY NEGATIVE CHEST. Interpreting Physician: ??AGNIESZKA AGUILA M.D. ??Read on: ??May 09 2013 9:43P Transcribed by: ??whit ?? On: May 10 2013 10:11A Approved Electronically by: ??AGNIESZKA AGUILA M.D. ??on: ??May 10 2013 2:05P Ordering DR: DR MALLIKA MAYNARD Attending DR: DIANE MOYA Procedure Note Provider, Mar, - 10/25/2016 XR Chest 2 Views [id number] Acc#: [id number] DATE OF EXAM: May 09 2013 CLINICAL HISTORY: Cough and congestion. Some chest pain. RESULT: PA and lateral views of the chest were obtained. The heart, pulmonaryvessels and lung meadows appear normal. A process such as bronchitis maybe present without radiographic findings. IMPRESSION: ESSENTIALLY NEGATIVE CHEST. Interpreting Physician: AGNIESZKA AGUILA M.D. Read on: May 09 20139:[id number] Transcribed by: whit On: May 10 2013 10:11A Approved Electronically by: AGNIESZKA AGUILA M.D. on: May 10 77171:05P Ordering DR: DR MALLIKA MAYNARD Attending DR: DIANE MOYA Historical Provider MD DENISE XR PROCEDURES Final R esult * Influenza A, B ag (05/09/2013 7:35 PM ASSISTANT SUPERINTENDENT) Influ A ag, nasopharyngeal Negative HISTORICAL RESULTS Comment:NEGATIVE RESULTS FOR THIS ASSAY ARE CONSIDERED PRESUMPTIVE Influ B ag, nasopharyngeal Negative HISTORICAL RESULTS Miscellaneous 05/09/2013 7:3 5 PM ASSISTANT SUPERINTENDENT Lucinda Georgia [facility]OPEZ LAB BLOOD ORDERABLES Final Result HISTORICAL RESULTS * Urine chorionic gonadotropin (HCG) (05/09/2013 7:35 PM ASSISTANT SUPERINTENDENT) HCG, ur Negative NEGATIVE HISTORICAL RESULTS Urine 05/09/2013 7:35 PM ASSISTANT SUPERINTENDENT Lucinda Ho Pawan [facility] LAB BLOOD ORDERABLES Final Result HISTORICAL RESULTS * Discharge Laboratory Cumulative Report (05/09/2013 12:00 AM ASSISTANT SUPERINTENDENT) 05/09/2013 Narrative HISTORICAL RESULTS - 05/10/2013 12:28 AM ASSISTANT SUPERINTENDENT Patient No: [id number] ? [facility] Patient Name: CHAD PHELAN ?[facility] Healthcare Age: 28 YRS ?: 1985 ?Sex:F ?[address] )[phone] ?? Adm Dt: 05/09/2013 ?[place], [place] ??[address] Created: 05/10/2013 ??0028 ?? Pt. Type: E ? Discharge Dt: 05/09/2013 ? Pathologists: Freya English MD Admit Attend Dr: MALLIKA MAYNARD MD ? [facility] ?Collection Date: ?18/13 ?Collection Time: ?1935 ? Ref Range: ?? Units: [NEGATIVE] ?U ? NEGATIVE ? SEROLOGY ?Collection Date: ?05/09/13 ?Collection Time: ?1935 ? Ref Range: ?? Units: [PRESENT] ?CONTROL LINE ? PRESENT ?INFLUENZA A AG ?NEGATIVE f ?INFLUENZA B AG ?NEGATIVE Footnotes and Symbols: f = Footnote INFLUENZA A AG (09/03/11 -- Current) NEGATIVE RESULTS FOR THIS ASSAY ARE CONSIDERED PRESUMPTIVE ?? END OF CHART ? Page: ?? 1 us Historical Provider MD LAB BLOOD ORDERABLES Bouchra l Result HISTORICAL RESULTS documented in this encounter Visit Diagnoses Diagnosis Bronchitis Bronchitis, not specified as acute or chronic documented in this encounter
--- OUTSIDE RECORDS SUMMARY | 2024-06-08 20:17 | XMS_ITS | Encounter Summary ---
Author Organization [facility] Facility Care Team Providers Care Rug Designer Name Role Phone Lis Goodson MD Primary Care Provide r Encounter Details Date Type Department Care Team (Late st Contact Info) Description 05/02/2016 9:44 AM RESERVATIONS SALES AGENT - 05/02/2016 11:59 PM RESERVATIONS SALES AGENT [facility] [address] [place] [address] Infection of urinary tract in Social History Tobacco Use Types Packs/Day Years Used Date Smoking Tobacco: Former Comments Unknown Sex and Gender Information Value Date Recorded Sex Assigned at Not on file Legal Sex Female 3:29 AM RESERVATIONS SALES AGENT Gender Identity Not on file Sexual Orientation Not on file documented as of this encounter Plan of Treatment Not on file documented as of this encounter Procedures Procedure Name Priority Date/Time Associated Diagnosis Comments URINE (AEROBIC) CULTURE, CDR Routine 05/02/2016 9:44 AM RESERVATIONS SALES AGENT URINE MICROSCOPY Routine 05/02/2016 9:44 AM RESERVATIONS SALES AGENT URINALYSIS Routine 05/02/2016 9:44 AM RESERVATIONS SALES AGENT DISCHARGE LABORATORY CUMULATIVE REPORT 05/02/2016 documented in this encounter Results * (ABNORMAL) Urinalysis (05/02/2016 9:44 AM RESERVATIONS SALES AGENT) Color, ur Yellow Yellow CDR HISTOR ICAL RESULTS Clarity, ur Cloudy(A) Clear CDR HIST ORICAL RESULTS Specific gravity, ur 1.019 1.003 - 1.030 CDR HISTORICAL RESULTS pH, ur 7.0 5.0 - 8.0 CDR HISTOR ICAL RESULTS Protein, ur Negative Trace CDR HIST ORICAL RESULTS Glucose, ur Negative Negative CDR HIST ORICAL RESULTS Ketones, ur Negative Negative CDR HIST ORICAL RESULTS Bilirubin, ur Negative Negative CDR HI STORICAL RESULTS U Blood Negative Negative CDR HISTOR ICAL RESULTS Urobilinogen, quant, ur <2.0 <2.0 mg/dl CDR HISTORICAL RESULTS Nitrites, ur Negative Negative CDR HIS TORICAL RESULTS Leukocyte esterase, ur 1+(A) Negative CDR HISTORICAL RESULTS Urine 05/02/2016 9:44 AM RESERVATIONS SALES AGENT Marleny Appiah MD LAB BLOOD ORDERABLES Final Result Performing Organization Address City/[facility]/ZIP Co de Phone Number CDR HISTORICAL RESULTS * Urine microscopy (05/02/2016 9:44 AM RESERVATIONS SALES AGENT) RBC, ur 1 0 - 3 /hpf CDR HISTO RICAL RESULTS WBC, ur 2 0 - 5 /hpf CDR HISTO RICAL RESULTS Bacteria, ur Trace Trace CDR HIS TORICAL RESULTS Epithelial cells, renal, ur 0 0 - 0 /hpf CDR HISTORICAL RESULTS Epithelial cells, squamous, ur >20 /lpf CDR HISTORICAL RESULTS Mucus, ur Small /hpf CDR HISTOR ICAL RESULTS Urine 05/02/2016 9:44 AM RESERVATIONS SALES AGENT Marleny Appiah MD LAB BLOOD ORDERABLES Final Result CDR HISTORICAL RESULTS * Urine (aerobic) culture (05/02/2016 9:44 AM RESERVATIONS SALES AGENT) Urine (Unknown) 05/02/2016 9 :44 AM RESERVATIONS SALES AGENT 05/02/2016 3:59 PM RESERVATIONS SALES AGENT Narrative CDR HISTORICAL RESULTS - 05/04/2016 5:00 AM RESERVATIONS SALES AGENT Insignificant growth based on current clinical standards. Historical Provider LAB MICROBIOLOGY - GENERA L ORDERABLES Final Result CDR HISTORICAL RESULTS * DISCHARGE LABORATORY CUMULATIVE REPORT (05/02/2016) Narrative 05/02/2016 Ordered by an unspecified provider. us Historical Provider LAB BLOOD ORDERABLES Bouchra l Result documented in this encounter Visit Diagnoses Diagnosis Infection of urinary tract in documented in this encounter Care Teams Rug Designer Relationship Specialty Start Date End Date Lis Goodson MD PCP - General 09/13/14 08/17/16 documented as of this encounter
--- OUTSIDE RECORDS SUMMARY | 2024-06-08 20:17 | XMS_ITS | Encounter Summary ---
Author Organization [facility] Healthcare Address [address] [place] [address] Care Team Providers Care Heel Emery Buffer Name Role Phone Mariia Gardner MD Primary Care Provider [phone] Encounter Details Date Type Department Care Team (Latest Contact Info) Description 09/19/2016 6:25 PM CDT - 09/20/2016 12:13 AM CDT Hospital Encounter [facility] [address] [place] [address] Abebe Kang MD [facility] [address] [facility] [address] [place] [address] Discharge Disposition: Discharge to home or self care Social History Tobacco Use Types Packs/Day Years Used Date Smoking Tobacco: Former Comments Unknown Sex and Gender Information Value Date Recorded Sex Assigned at Not on file Legal Sex Female 3:29 AM ROPE MAKER Gender Identity Not on file Sexual Orientation Not on file documented as of this encounter Last Filed Vital Signs Vital Sign Reading Time Taken Comments Blood Pressure 141/93 09/19/2016 6:30 PM CDT Pulse 101 09/19/2016 6:30 PM CDT Temperature - - Respiratory Rate - - Oxygen Saturation 98% 09/19/2016 9:23 PM CDT Inhaled Oxygen Concentration - - Weight - - Height - - Body Mass Index - - documented in this encounter Discharge Disposition Disposition Code Departure Means Destination Discharge to home or self care documented in this encounter Plan of Treatment Not on file documented as of this encounter Procedures Procedure Name Priority Date/Time Associated Diagnosis Comments US ABDOMEN LIMITED Routine 09/20/2016 3: 14 AM CDT PROTEIN / CREATININE RATIO, URINE, RANDOM After X-Ray 09/19/2016 6:51 PM CDT DIFFERENTIAL AUTO STAT 09/19/2016 6:4 5 PM CDT CBC WITH AUTO DIFFERENTIAL STAT 09/19/2016 6:45 PM CDT URIC ACID STAT 09/19/2016 6:45 PM CDT COMPREHENSIVE METABOLIC PANEL STAT 09/19/2016 6:45 PM CDT GLUCOSE POC Routine Gen Lab 09/19/2016 5:42 PM CDT documented in this encounter Results * US Abdomen Limited (09/20/2016 3:14 AM CDT) Anatomical Region Laterality Modality Abdomen N/A Ultrasound 09/20/2016 3:14 AM CDT Narrative 09/20/2016 3:14 AM CDT MIKE VALENZUELA M.D. NATY BOYD M.D. FINAL REPORT The radiology attending physician has personally reviewed this study, and has reviewed and/or edited this written report and agrees with it. ACC# ??Date Time ??Exam [id number] Sep 19, 2016 22:14:00 [id number] [facility] ACC# ??Date Time ??Exam [id number] Sep 19, 2016 22:14:00 [id number] [facility] EXAMINATION: ?? LIMITED ABDOMINAL SONOGRAM HISTORY: ??31-year-old gravid female at 32 week gestation presenting with right upper quadrant pain exacerbated postprandially. COMPARISON: No prior ultrasound available for comparison. FINDINGS: There is no stone or sludge within the gallbladder. ??There is no gallbladder wall thickening. ??There is no pericholecystic fluid. The sonographic Leal's sign is negative. There is an echogenic, 6 mm focus which is nonmobile, nonshadowing and located along the wall of the gallbladder body. The liver is normal in size. ??The echotexture is normal. ??The echogenicity is normal. There is no surface nodularity. ??No focal solid lesions are visualized. ??There is no intrahepatic bile duct dilatation. The common duct measures 8 mm and 3 mm in the proximal and mid segments respectively. The distal bile duct is obscured by overlying bowel gas. There is no hydronephrosis in the visualized portion of the right kidney. The visualized portions of the head and body of the pancreas are normal.. The proximal IVC is normal. ?? IMPRESSION: 1. ??No evidence of cholelithiasis or acute cholecystitis. 2. ??6 mm gallbladder polyp. This is most likely a benign incidental finding, however is small fraction of polyps greater than 5 mm may grow with time. Recommend one year follow up to confirm stability. 3. Mildly dilated proximal common bile duct that tapers in the midportion with no associated intrahepatic duct dilatation. Given the normal liver function tests, this is of doubtful significance. ?? Requested By: SANDRA TEJEDA M.D. Dictated By: ?? NATY BOYD M.D. ??on Sep 19 2016 11:01P This document has been electronically signed by: MIKE VALENZUELA M.D. on Sep ?? 2017 ??8:21A [id number] Procedure Note Miscellaneous, Notinfile / Provider, MD Mar - 11/12/2016 MIKE VALENZUELA M.D. NATY BOYD M.D. FINAL REPORT The radiology attending physician has personally reviewed this study, and has reviewed and/or edited this written report and agrees with it. ACC# Date Time Exam [id number] Sep 19, 2016 22:14:00 [id number] [facility] ACC# Date Time Exam [id number] Sep 19, 2016 22:14:00 [id number] [facility] EXAMINATION: LIMITED ABDOMINAL SONOGRAM HISTORY: 31-year-old gravid female at 32 week gestation presenting with right upper quadrant pain exacerbated postprandially. COMPARISON: No prior ultrasound available for comparison. FINDINGS: There is no stone or sludge within the gallbladder. There is no gallbladder wall thickening. There is no pericholecystic fluid. The sonographic Leal's sign is negative. There is an echogenic, 6 mm focus which is nonmobile, nonshadowing and located along the wall of the gallbladder body. The liver is normal in size. The echotexture is normal. The echogenicity is normal. There is no surface nodularity. No focal solid lesions are visualized. There is no intrahepatic bile duct dilatation. The common duct measures 8 mm and 3 mm in the proximal and mid segments respectively. The distal bile duct is obscured by overlying bowel gas. There is no hydronephrosis in the visualized portion of the right kidney. The visualized portions of the head and body of the pancreas are normal.. The proximal IVC is normal. IMPRESSION: 1. No evidence of cholelithiasis or acute cholecystitis. 2. 6 mm gallbladder polyp. This is most likely a benign incidental finding, however is small fraction of polyps greater than 5 mm may grow with time. Recommend one year follow up to confirm stability. 3. Mildly dilated proximal common bile duct that tapers in the midportion with no associated intrahepatic duct dilatation. Given the normal liver function tests, this is of doubtful significance. Requested By: SANDRA TEJEDA M.D. Dictated By: NATY BOYD M.D. on Sep 19 2016 11:01P This document has been electronically signed by: MIKE VALENZUELA M.D. on Sep 20 2016 8:21A [id number] us Not In File Miscellaneous IMG US PROCEDURES Bouchra l Result * Protein / creatinine ratio, urine, random (09/19/2016 6:51 PM CDT) Protein, ur, quant 17.1 mg/dL [facility] Creatinine, ur 106.90 mg/dL [facility] Protein/creatin ine ratio 0.2 Ratio [facility] Urine 09/19/2016 6:51 PM CDT 09/19/2016 7:19 PM CDT us Sandra Tejeda MD LAB URINE ORDERABLES F inal Result [facility] [place] [address] * (ABNORMAL) Comprehensive metabolic panel (09/19/2016 6:45 PM CDT) Sodium 142 135 - 145 mmol/L [facility] Potassium, pl 3.7 3.3 - 4.9 mmol/L [facility] CO2 23 22 - 32 mmol/L [facility] BUN 5(L) 8 - 25 mg/dL [facility] Glucose 94 70 - 199 mg/dL [facility] Creatinine 0.49(L) 0.60 - 1.10 mg/dL [facility] Calcium 9.2 8.5 - 10.3 mg/dL [facility] Chloride 107 97 - 110 mmol/L [facility] Comment:fixed result mapping Albumin 3.5 3.5 - 5.0 g/dL [facility] AST 16 10 - 45 Units/L [facility] ALT 12 7 - 45 Units/L [facility] Alk phos 111 40 - 130 Units/L [facility] Bilirubin, total 0.2 0.1 - 1.2 mg/dL [facility] Protein, pl 6.9 6.5 - 8.5 g/dL [facility] Anion gap 12 2 - 15 mmol/L [facility] Blood specimen (specimen) 09/19/2016 6:45 PM CDT 09/19/2016 7:10 PM CDT Sandra Tejeda MD LAB BLOOD ORDERABLES F inal Result [facility] [place] [address] * Uric acid (09/19/2016 6:45 PM CDT) Uric acid 3.3 2.5 - 7.0 mg/dL [facility] Blood specimen (specimen) 09/19/2016 6:45 PM CDT 09/19/2016 7:10 PM CDT Sandra Tejeda MD LAB BLOOD ORDERABLES F inal Result Performing Organization Address City/[facility]/ZIP Co de Phone Number [facility] [place] [address] * (ABNORMAL) Differential, auto (09/19/2016 6:45 PM CDT) Pathologist [facility] Neutrophil pct 58.6 % [facility] Imm gran pct 0.9 % [facility] Lymphocyte pct 22.3 % [facility] Monocyte pct 10.3 % [facility] Eosinophil pct 7.5 % [facility] Basophil pct 0.4 % [facility] Neutrophil abs 6.26 1.70 - 6.50 K/cumm [facility] Imm gran abs 0.10 0.00 - 0.10 K/cumm [facility] Lymphocyte abs 2.38 0.80 - 3.30 K/cumm [facility] Monocyte abs 1.10(H) 0.20 - 0.80 K/cumm [facility] Eosinophil abs 0.80(H) 0.00 - 0.50 K/cumm [facility] Basophil abs 0.04 0.00 - 0.10 K/cumm [facility] Blood specimen (specimen) 09/19/2016 6:45 PM CDT 09/19/2016 7:10 PM CDT Sandra Tejeda MD LAB BLOOD ORDERABLES F inal Result Performing Organization Address [facility] Co de Phone Number [facility] Department [place] [address] * (ABNORMAL) CBC with auto differential (09/19/2016 6:45 PM CDT) Pathologist [facility] WBC 10.68(H) 3.80 - 9.90 K/cumm [facility] RBC 3.74(L) 3.90 - 5.20 M/cumm [facility] Hgb 11.4(L) 11.9 - 15.5 g/dL [facility] Hct 33.9(L) 35.6 - 45.5 % [facility] MCV 90.6 81.3 - 96.4 fL [facility] MCH 30.5 27.1 - 33.3 pg [facility] MCHC 33.6 32.3 - 35.7 g/dL [facility] RDW CV 13.9 11.1 - 14.9 % [facility] RDW SD 46.1 35.7 - 48.1 fL [facility] Plt 246 150 - 400 K/cumm [facility] MPV 9.2 9.1 - 12.3 fL [facility] NRBC 0.0 0.0 - 0.2 % [facility] NRBC abs 0.00 0.00 - 0.01 K/cumm [facility] Blood specimen (specimen) 09/19/2016 6:45 PM CDT 09/19/2016 7:10 PM CDT us Sandra Tejeda MD LAB BLOOD ORDERABLES F inal Result Performing Organization Address City/[facility] Co de Phone Number [facility] Department [place] [address] * Glucose POC (09/19/2016 5:42 PM CDT) [facility] Signature Glucose, POC 107 70 - 199 mg/dL [facility] Blood specimen (specimen) 09/19/2016 5:42 PM CDT 09/19/2016 5:42 PM CDT us Abebe Kang MD POINT OF CARE TEST ORDERABL ES Final Result Performing Organization Address [facility] de Phone Number [facility] [place] [address] documented in this encounter Visit Diagnoses Not on filedocumented in this encounter Care Teams Heel Emery Buffer Relationship Specialty Start Date End Date Mariia Gardner MD PCP - General 08/18/16 08/18/18 documented as of this encounter
--- OUTSIDE RECORDS SUMMARY | 2024-06-08 20:17 | XMS_ITS | Encounter Summary ---
Author Organization [facility] Facility Care Team Providers Care Managing Director Atlas Name Role Phone Lis Goodson MD Primary Care Provide r Encounter Details Date Type Department Care Team (Late st Contact Info) Description 04/18/2016 12:50 PM CDT - 04/18/2016 11:59 PM CDT Hospital Encounter [facility] Mariia Gardner MD [address] [phone] [place] [address] Type 1 diabetes mellitus without complications ([facility]); Supervision of high-risk ; Weeks of gestation of not specified Social History Tobacco Use Types Packs/Day Years Used Date Smoking Tobacco: Former Comments Unknown Sex and Gender Information Value Date Recorded Sex Assigned at Not on file Legal Sex Female 3:29 AM TRANSMISSION OPERATOR Gender Identity Not on file Sexual Orientation Not on file documented as of this encounter Plan of Treatment Not on file documented as of this encounter Procedures Procedure Name Priority Date/Time Associated Diagnosis Comments URINE (AEROBIC) CULTURE, CDR Routine 04/18/2016 12:50 PM CDT URINE MICROSCOPY Routine 04/18/2016 12:5 0 PM CDT URINALYSIS Routine 04/18/2016 12:50 PM CDT DISCHARGE LABORATORY CUMULATIVE REPORT 04/18/2016 documented in this encounter Results * (ABNORMAL) Urinalysis (04/18/2016 12:50 PM CDT) Glucose, ur Negative Negative CDR HIST ORICAL RESULTS Color, ur Yellow Yellow CDR HISTOR ICAL RESULTS Ketones, ur Negative Negative CDR HIST ORICAL RESULTS Clarity, ur Clear Clear CDR HIST ORICAL RESULTS Bilirubin, ur Negative Negative CDR HI STORICAL RESULTS Specific gravity, ur 1.013 1.003 - 1.030 CDR HISTORICAL RESULTS U Blood Negative Negative CDR HISTOR ICAL RESULTS pH, ur 6.0 5.0 - 8.0 CDR HISTOR ICAL RESULTS Urobilinogen, quant, ur <2.0 <2.0 mg/dl CDR HISTORICAL RESULTS Protein, ur Negative Trace CDR HIST ORICAL RESULTS Nitrites, ur Negative Negative CDR HIS TORICAL RESULTS Leukocyte esterase, ur 1+(A) Negative CDR HISTORICAL RESULTS Urine 04/18/2016 12:5 0 PM CDT Mariia Gardner MD LAB BLOOD ORDERABLES Final Result Performing Organization Address [facility] Co de Phone Number CDR HISTORICAL RESULTS * (ABNORMAL) Urine microscopy (04/18/2016 12:50 PM CDT) Pathologist [facility] RBC, ur 0 0 - 3 /hpf CDR HISTO RICAL RESULTS WBC, ur 2 0 - 5 /hpf CDR HISTO RICAL RESULTS Bacteria, ur 3+(A) Trace CDR HIS TORICAL RESULTS Epithelial cells, renal, ur 0 0 - 0 /hpf CDR HISTORICAL RESULTS Epithelial cells, squamous, ur 6 /lpf CDR HISTORICAL RESULTS Mucus, ur Small /hpf CDR HISTOR ICAL RESULTS Urine 04/18/2016 12:5 0 PM CDT Mariia Gardner MD LAB BLOOD ORDERABLES Final Result CDR HISTORICAL RESULTS * Urine (aerobic) culture (04/18/2016 12:50 PM CDT) Pathologist [facility] Organism [id number] CDR HISTORICAL RESULTS Urine (Unknown) 04/18/2016 1 2:50 PM CDT 04/18/2016 4:45 PM CDT Narrative CDR HISTORICAL RESULTS - 04/21/2016 2:17 PM CDT Greater than or equal to 100,000 colonies/ml of Enterobacter cloacae complex Organism Antibiotic Method Susceptibility Enterobacter cloacae Ampicillin Resistant Enterobacter cloacae Cefazolin Resistant Enterobacter cloacae Nitrofurantoin Intermediate Enterobacter cloacae Gentamicin Susceptible Enterobacter cloacae Trimethoprim with Sulfamethoxazol e Susceptible Enterobacter cloacae Meropenem Susceptible Enterobacter cloacae Cefepime Susceptible Enterobacter cloacae Ciprofloxacin Susceptible Enterobacter cloacae Ceftazidime Resistant Enterobacter cloacae Ceftriaxone Resistant Enterobacter cloacae Piperacillin/Tazobactam Resistant us Historical Provider LAB MICROBIOLOGY - GENERA L ORDERABLES Final Result CDR HISTORICAL RESULTS * DISCHARGE LABORATORY CUMULATIVE REPORT (04/18/2016) Narrative 04/18/2016 Ordered by an unspecified provider. us Historical Provider LAB BLOOD ORDERABLES Bouchra l Result documented in this encounter Visit Diagnoses Diagnosis Type 1 diabetes mellitus without complications (HCC) Supervision of high-risk Weeks of gestation of not specified documented in this encounter Care Teams Managing Director Atlas Relationship Specialty Start Date End Date Lis Goodson MD PCP - General 09/13/14 08/17/16 documented as of this encounter
--- OUTSIDE RECORDS SUMMARY | 2024-06-08 20:17 | XMS_ITS | Encounter Summary ---
Author Organization [facility] Facility Care Team Providers Care Women Designer Name Role Phone Lis Goodson MD Primary Care Provide r Encounter Details Date Type Department Care Team (Late st Contact Info) Description 04/18/2016 11:21 AM CDT - 04/18/2016 11:59 PM CDT Hospital Encounter [facility] Mariia Gardner MD [address] [phone] [place] [address] Type 1 diabetes mellitus without complications (CMS/HCC); Type 2 diabetes mellitus without complications (CMS/HCC); Supervision of with history of infertility; Pre-existing diabetes mellitus during (CMS/HCC); Weeks of gestation of not specified Social History Tobacco Use Types Packs/Day Years Used Date Smoking Tobacco: Former Comments Unknown Sex and Gender Information Value Date Recorded Sex Assigned at Not on file 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 Gender Identity Not on file Sexual Orientation Not on file documented as of this encounter Plan of Treatment Not on file documented as of this encounter Procedures Procedure Name Priority Date/Time Associated Diagnosis Comments PLASMA COMPREHENSIVE METABOLIC PANEL Routine 04/18/2016 11:32 AM CDT BLOOD HEMOGLOBIN A1C Routine 04/18/2016 11:32 AM CDT BLOOD CELL COUNT Routine 04/18/2016 11:3 2 AM CDT DISCHARGE LABORATORY CUMULATIVE REPORT 04/18/2016 documented in this encounter Results * (ABNORMAL) Plasma comprehensive metabolic panel (04/18/2016 11:32 AM CDT) Sodium 137 135 - 145 mmol/L CDR HISTORICAL RESULTS K, pl 4.1 3.3 - 4.9 mmol/L CDR HISTORICAL RESULTS Chloride 103 97 - 110 mmol/L CDR HISTORICAL RESULTS CO2 23 22 - 32 mmol/L CDR HISTORICAL RESULTS A. gap 11 2 - 15 mmol/L CDR HISTORICAL RESULTS Glucose 94 70 - 199 mg/dl CDR HISTORICAL RESULTS BUN 7(L) 8 - 25 mg/dl CDR HISTORICAL RESULTS Creatinine 0.52(L) 0.60 - 1.10 mg/dl CDR HISTORICAL RESULTS Calcium 9.5 8.5 - 10.3 mg/dl CDR HISTORICAL RESULTS Protein, pl 7.1 6.5 - 8.5 g/dl CDR HISTORICAL RESULTS Alb 4.1 3.5 - 5.0 g/dl CDR HISTORICAL RESULTS Bilirubin 0.3 0.1 - 1.2 mg/dl CDR HISTORICAL RESULTS Alk phos 57 40 - 130 Units/L CDR HISTORICAL RESULTS AST 17 10 - 45 Units/L CDR HISTORICAL RESULTS ALT 20 7 - 45 Units/L CDR HISTORICAL RESULTS Plasma 04/18/2016 11:3 2 AM CDT Mariia Gardner MD LAB BLOOD ORDERABLES Final Result CDR HISTORICAL RESULTS * Blood cell count [CBC] express (04/18/2016 11:32 AM CDT) WBC 8.9 3.8 - 9.9 K/cumm CDR HISTORICAL RESULTS RBC 4.02 3.90 - 5.20 M/cumm CDR HISTORICAL RESULTS Hgb 12.6 11.9 - 15.5 g/dl CDR HISTORICAL RESULTS Hct 37.4 35.6 - 45.5 % CDR HISTORICAL RESULTS MCV 93.0 81.3 - 96.4 fl CDR HISTORICAL RESULTS MCH 31.3 27.1 - 33.3 pg CDR HISTORICAL RESULTS MCHC 33.7 32.3 - 35.7 g/dl CDR HISTORICAL RESULTS Rdw 14.1 11.1 - 14.9 % CDR HISTORICAL RESULTS RDW 48.0 35.7 - 48.1 fl CDR HISTORICAL RESULTS NRBC 0.0 0.0 - 0.2 % CDR HIST ORICAL RESULTS NRBC, abs 0.00 0.00 - 0.01 K/cumm CDR HISTORICAL RESULTS Platelets 277 150 - 400 K/cumm CDR HISTORICAL RESULTS MPV 9.3 9.1 - 12.3 fl CDR HISTORICAL RESULTS Blood specimen (specimen) 04/18/2016 11:32 AM CDT Result [facility] Mariia Gardner MD LAB BLOOD ORDERABLES Final Result Performing Organization Address City/[facility] Co de Phone Number CDR HISTORICAL RESULTS * Blood hemoglobin A1C (04/18/2016 11:32 AM CDT) Hgb A1C 5.7 4.0 - 6.0 % CDR HISTORICAL RESULTS Estimated average glucose 117 mg/dl CDR HISTORIC AL RESULTS Comment: The ADA recommends reporting an estimated Average Glucose (eAG) with all Hemoglobin A1c results using the equation derived from a study of 507 normal and diabetic adults. ??Minority populations were underrepresented and children were not included. ??(Diabetes Care 31:0241-7725, 2008). ??The eAG is not equivalent to a fasting glucose. Blood specimen (specimen) 04/18/2016 11:32 AM CDT Result [facility] Mariia Gardner MD LAB BLOOD ORDERABLES Final Result Performing Organization Address City/[facility] Co de Phone Number CDR HISTORICAL RESULTS * DISCHARGE LABORATORY CUMULATIVE REPORT (04/18/2016) Narrative 04/18/2016 Ordered by an unspecified provider. Result [facility] Historical Provider LAB BLOOD ORDERABLES Bouchra l Result documented in this encounter Visit Diagnoses Diagnosis Type 1 diabetes mellitus without complications (HCC) Type 2 diabetes mellitus without complications (CMS/HCC) (HCC) Supervision of with history of infertility with history of infertility Pre-existing diabetes mellitus during Weeks of gestation of not specified documented in this encounter Care Teams Women Designer Relationship Specialty Start Date End Date Lis Goodson MD PCP - General 09/13/14 08/17/16 documented as of this encounter
--- OUTSIDE RECORDS SUMMARY | 2024-06-08 20:17 | XMS_ITS | Encounter Summary ---
Author Organization [facility] Healthcare Address [address] [place] [address] Care Team Providers Care Senior Java Web Application Developer Name Role Phone Mariia Gardner MD Primary Care Provider [phone]- [phone] Encounter Details Date Type Department Care Team (Latest Contact Info) Description 09/03/2016 1:19 PM CDT - 09/03/2016 5:46 PM CDT Hospital Encounter [facility] [address] [place] [address] Shyla Eddy MD [address] [facility] [phone] [place], [place] [id number] Discharge Disposition: Discharge to home or self care Social History Tobacco Use Types Packs/Day Years Used Date Smoking Tobacco: Former Comments Unknown Sex and Gender Information Value Date Recorded Sex Assigned at Not on file 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 Gender Identity Not on file Sexual Orientation Not on file documented as of this encounter Last Filed Vital Signs Vital Sign Reading Time Taken Comments Blood Pressure 123/79 09/03/2016 2:04 PM CDT Pulse 97 09/03/2016 2:45 PM CDT Temperature - - Respiratory Rate - - Oxygen Saturation 100% 09/03/2016 2:45 PM CDT Inhaled Oxygen Concentration - - Weight - - Height - - Body Mass Index - - documented in this encounter Discharge Disposition Disposition Code Departure Means Destination Discharge to home or self care documented in this encounter H&P Notes * Miscellaneous, Not In File - 09/03/2016 5:46 PM CDT Datetime Report Generated by CPN: 09/03/2016 22:10 Patient Name: CHAD PHELAN Number: [id number] : 1985 Admission Information ArrivalDate/Time: 09/03/2016 13:07 (09/03/2016 13:Kat Shields RN)Attending Physician: JOHANNA (09/03 13:Sandra/Zahra Beebe)Method of arrival: Ambulatory (09/03/2016 13:Kat Shields RN)Admitted From: Home (09/03/2016 13:Kat Shields RN)Cheif Complaint: dizziness off and on 2 days (09/03/2016 13:Kat Shields RN)Time Provider Notified: 09/03/2016 13:07 (09/03/2016 13:Kat Shields RN)Provider: Rush Beebe MD (09/03/2016 13:Kat Shields RN) Movement: Present (09/03/2016 13:Kat Shields RN)Contractions: Denies/Absent (09/03/2016 13Kat Perez RN)Rupture of membrane: Denies (09/03/2016 13Kat Perez RN)Recent Sexual [place]: Denies (09/03/2016 13:Sandra/Kat Carias RN)Vaginal discharge: Denies (09/03/2016 13:Sandra/Kat Carias RN)Abdominal Trauma: Not Applicable (09/03/2016 13:Kat Shields RN)Vaginal Bleeding : None (09/03/2016 13:Kat Shields RN)Patient Complaints: None (09/03/2016 13:Kat Shields RN)Triage Inital Plan: evaluate adn treat/vs/em (09/03/2016 13:Kat Shields RN)Patient Dispostion: Discharged Home (09/03/2016 13:Kat Shields RN)Triage Summary: FHR reactive. 1 liter LR for orthostatic changes/ HCT, accuchecl WNL EKG WNL/ Labs CMP,CBC,TSH WNL (09/03/2016 13:Kat Shields RN) Datetime Report Generated by CPN: 09/03/2016 22:10 In threatening relationship: No (09/03/2016 17:Kat Pereira RN)History of Domestic Violence: No (09/03/2016 17:17/Kat Carias RN)Do you feel UNSAFE at Home: No (09/03/2016 17:17/Kat Carias RN)Domestic Violence Observed: No (09/03/2016 17:Kat Pereira RN) documented in this encounter Plan of Treatment Not on file documented as of this encounter Procedures Procedure Name Priority Date/Time Associated Diagnosis Comments SERUM THYROID-STIMULATING HORMONE (TSH) Routine 09/03/2016 3:20 PM CDT PLASMA BASIC METABOLIC PANEL Routine 09/03/2016 3:20 PM CDT BLOOD CELL COUNT (CBC) Routine 09/03/2016 3:20 PM CDT BLOOD CELL MORPHOLOGIC EXAM Routine 09/03/2016 3:20 PM CDT BLOOD GLUCOSE, POC Routine 09/03/2016 1: 44 PM CDT documented in this encounter Results * Serum thyroid-stimulating hormone (TSH) (09/03/2016 3:20 PM CDT) TSH 1.58 0.30 - 4.20 mcIUnits/m l CDR HISTORICAL RESULTS Comment: Interpretive Data Hyperthyroid: ??<0.1 mcIUnit/mL Hypothyroid: ??>12.0 mcIUnit/mL Current interpretive data was last revised on 00. Serum 09/03/2016 3:20 PM CDT us Zahra Martinez MD LAB BLOOD ORDERABLES Fi nal Result CDR HISTORICAL RESULTS * (ABNORMAL) Plasma basic metabolic panel (09/03/2016 3:20 PM CDT) Sodium 138 135 - 145 mmol/L CDR HISTORICAL RESULTS K, pl 4.3 3.3 - 4.9 mmol/L CDR HISTORICAL RESULTS Comment: Hemolyzed; (+++); potassium value may be falsely elevated by as much as 0.6 - 1.0 mmol/L. Suggest redraw and reanalysis. Chloride 106 97 - 110 mmol/L CDR HISTORICAL RESULTS CO2 21(L) 22 - 32 mmol/L CDR HISTORICAL RESULTS BUN 5(L) 8 - 25 mg/dl CDR HISTORICAL RESULTS Glucose 85 70 - 199 mg/dl CDR HISTORICAL RESULTS Creatinine 0.44(L) 0.60 - 1.10 mg/dl CDR HISTORICAL RESULTS Calcium 8.6 8.5 - 10.3 mg/dl CDR HISTORICAL RESULTS A. gap 11 2 - 15 mmol/L CDR HISTORICAL RESULTS Plasma 09/03/2016 3:20 PM CDT Zahra Martinez MD LAB BLOOD ORDERABLES nal Result Performing Organization Address [facility] de Phone Number CDR HISTORICAL RESULTS * (ABNORMAL) Blood cell count (CBC) (09/03/2016 3:20 PM CDT) WBC 11.6(H) 3.8 - 9.9 K/cumm CDR HISTORICAL RESULTS RBC 3.74(L) 3.90 - 5.20 M/cumm CDR HISTORICAL RESULTS Hgb 11.5(L) 11.9 - 15.5 g/dl CDR HISTORICAL RESULTS Hct 34.8(L) 35.6 - 45.5 % CDR HISTORICAL RESULTS MCV 93.0 81.3 - 96.4 fl CDR HISTORICAL RESULTS MCH 30.7 27.1 - 33.3 pg CDR HISTORICAL RESULTS MCHC 33.0 32.3 - 35.7 g/dl CDR HISTORICAL RESULTS Rdw 14.2 11.1 - 14.9 % CDR HISTORICAL RESULTS RDW 48.1 35.7 - 48.1 fl CDR HISTORICAL RESULTS Platelets 234 150 - 400 K/cumm CDR HISTORICAL RESULTS MPV 9.7 9.1 - 12.3 fl CDR HISTORICAL RESULTS NRBC 0.0 0.0 - 0.2 % CDR HIST ORICAL RESULTS NRBC, abs 0.00 0.00 - 0.01 K/cumm CDR HISTORICAL RESULTS Blood specimen (specimen) 09/03/2016 3:20 PM CDT Zahra Martinez MD LAB BLOOD ORDERABLES nal Result Performing Organization Address [facility] de Phone Number CDR HISTORICAL RESULTS * (ABNORMAL) Blood cell morphologic exam (09/03/2016 3:20 PM CDT) Neutrophils 67.4 % CDR HIST ORICAL RESULTS Immature granulocytes 0.9 % CDR HISTORICAL RESULTS Lymphocytes 17.3 % CDR HIST ORICAL RESULTS Monos 8.2 % CDR HISTOR ICAL RESULTS Eosinophils 5.9 % CDR HIST ORICAL RESULTS Basophils 0.3 % CDR HISTOR ICAL RESULTS Neutrophils, abs 7.8(H) 1.7 - 6.5 K/cumm CDR HISTORICAL RESULTS Immature granulocyte, abs 0.1(H) 0.0 - 0.1 K/cumm CDR HISTORICAL RESULTS Lymphocytes, abs 2.0 0.8 - 3.3 K/cumm CDR HISTORICAL RESULTS Monocytes, absolute 1.0(H) 0.2 - 0.8 K/cumm CDR HISTORICAL RESULTS Eosinophils, abs 0.7(H) 0.0 - 0.5 K/cumm CDR HISTORICAL RESULTS Basophils, abs 0.0 0.0 - 0.1 K/cumm CDR HISTORICAL RESULTS Blood specimen (specimen) 09/03/2016 3:20 PM CDT Zahra Martinez MD LAB BLOOD ORDERABLES Fi nal Result Performing Organization Address [facility] de Phone Number CDR HISTORICAL RESULTS * Blood glucose, POC (09/03/2016 1:44 PM CDT) [facility] Glucose, POC, bld 94 70 - 199 mg/dl CDR HISTORICAL RESULTS Blood specimen (specimen) 09/03/2016 1:44 PM CDT Shyla Eddy MD LAB BLOOD ORDERABLES F inal Result Performing Organization Address [facility] de Phone Number CDR HISTORICAL RESULTS documented in this encounter Visit Diagnoses Not on filedocumented in this encounter Care Teams Senior Java Web Application Developer Relationship Specialty Start Date End Date Mariia Gardner MD PCP - General 08/18/16 08/18/18 documented as of this encounter
--- OUTSIDE RECORDS SUMMARY | 2024-06-08 20:17 | XMS_ITS | Encounter Summary ---
Author Organization [facility] Facility Care Team Providers Care Vice President Diversity Name Role Phone hCad Goodson MD Primary Care Provide r Encounter Details Date Type Department Care Team (Late st Contact Info) Description 04/18/2016 9:03 AM CDT - 04/18/2016 11:59 PM CDT Hospital Encounter [facility] Adelita Varela MD [address] [place] [address] [address] Pre-existing diabetes mellitus during in first trimester (CMS/HCC); Type 2 diabetes mellitus without complications (CMS/HCC); 10 weeks gestation of Social History Tobacco Use Types Packs/Day Years Used Date Smoking Tobacco: Former Comments Unknown Sex and Gender Information Value Date Recorded Sex Assigned at Not on file 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
--- OUTSIDE RECORDS SUMMARY | 2024-06-08 20:17 | XMS_ITS | Encounter Summary ---
Author Organization [facility] Healthcare Address [address] [place] [address] Care Team Providers Care Denture Finisher Name Role Phone Unavailable Primary Care Provider Unavailabl e Encounter Details Date Type Department Care Team (Latest Contact Info) Description 01/03/2014 9:54 AM CDT - 01/03/2014 2:02 PM CDT Hospital Encounter [facility] Larandrzej Bois D Arc Urinary tract infection; Other and unspecified ovarian cyst; Tobacco use disorder; Asthma; Gastroschisis; Other postprocedural states Social History Tobacco Use Types Packs/Day Years Used Date Smoking Tobacco: Never Assessed Comments Unknown Sex and Gender Information Value Date Recorded Sex Assigned at Not on file 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 Gender Identity Not on file Sexual Orientation Not on file documented as of this encounter Plan of Treatment Not on file documented as of this encounter Procedures Procedure Name Priority Date/Time Associated Diagnosis Comments DISCHARGE CUMULATIVE SUMMARY ADDENDUM Routine 01/06/2014 12:[address] ABDOMEN PELVIS W CONTRAST Routine 01/03/2014 12:57 PM CDT SERUM LIPASE Routine 01/03/2014 10:20 AM CDT SERUM COMPREHENSIVE METABOLIC PANEL Routine 01/03/2014 10:20 AM CDT SERUM AMYLASE Routine 01/03/2014 10:20 AM CDT BLOOD WBC CELL MORPHOLOGIC EXAM, AUTO Routine 01/03/2014 10:20 AM CDT BLOOD CELL COUNT (CBC) Routine 4 10:20 AM CDT URINE MICROSCOPY Routine 01/03/2014 10:1 0 AM CDT URINE CHORIONIC GONADOTROPIN (HCG) Routine 01/03/2014 10:10 AM CDT URINALYSIS Routine 01/03/2014 10:10 AM CDT MICROBIOLOGY SUMMARY Routine 01/03/2014 12:00 AM CDT DISCHARGE LABORATORY CUMULATIVE REPORT Routine 01/03/2014 12:00 AM CDT documented in this encounter Results * Discharge Cumulative Summary Addendum (01/06/2014 12:38 AM CDT) 01/06/2014 12:3 8 AM CDT Narrative HISTORICAL RESULTS - 01/06/2014 12:38 AM CDT Patient No: [id number] ? [facility] Patient Name: CHAD PHELAN ?[facility] Healthcare Age: 28 YRS ?: 1985 ?Sex:F ?[address] )[phone] ?? Adm Dt: 01/03/2014 ?[place] ??[id number] Created: 01/06/2014 ??0038 ?? Pt. Type: E ? Discharge Dt: 01/03/2014 ? Pathologists: Freya English MD Admit Attend Dr: ALISON MONTERROSO MD ? MICRO - URINE URINE CULTURE ? Collected: 01/03/14 1010 ? Received: 01/03/14 1056 Source: CLEAN CATCH URINE ? Started: 01/03/14 1120 ? PRELIMINARY REPORT ?01/04/14 0605 ? LESS THAN 10,000 CFU/ml MULTIPLE GRAM POSITIVE ORGANISMS ? (SENSITIVITIES NOT PERFORMED) ? FINAL REPORT ?01/05/14 0832 ? LESS THAN 10,000 CFU/ml MULTIPLE GRAM POSITIVE ORGANISMS ? (SENSITIVITIES NOT PERFORMED) ?? END OF CHART ? Page: ?? 1 us Historical Provider MD LAB MICROBIOLOGY - GENERA L ORDERABLES Final Result HISTORICAL RESULTS * CT Abdomen Pelvis W Contrast (01/03/2014 12:57 PM CDT) Anatomical Region Laterality Modality Body N/A Computed Tomogra phy 01/03/2014 12:5 7 PM CDT Narrative 01/04/2014 8:[address] Abd/Pel W ?[id number] ??Acc#: ??[id number] DATE OF EXAM: ??Jan 03 2014 CLINICAL HISTORY: Abdominal pain. RESULT: PROTOCOL: ??Helically acquired axial images were obtained from the dome of the diaphragm to the pubic symphysis following the administration of oral and intravenous contrast. FINDINGS: ??The liver, spleen, pancreas, adrenals and kidneys are normal. The small and large bowel demonstrate normal caliber. ??The small bowel is contained entirely on the right side of the abdomen with colon on the left side of the abdomen consistent with malrotation. ??A lobular right adnexal cyst is present with loculated component extending into the pelvis measuring approximately 6.3 x 4.0 cm. ??There is no evidence of free ascites or adenopathy. IMPRESSION: 1. FINDINGS CONSISTENT WITH INTESTINAL MALROTATION WHICH CORRELATES TO THE PATIENT'S HISTORY OF GASTROSCHISIS. 2. LOBULAR RIGHT ADNEXAL CYST EXTENDING INTO THE PELVIC CUL-DE-SAC. 3. OTHERWISE NORMAL CT OF THE ABDOMEN AND PELVIS. Interpreting Physician: ??DR JONNATHAN SELLERS M.D. ??Read on: ??Jan 03 2014 1:16P Transcribed by: ??светлана ??On: Jan 03 2014 ??6:10P Approved Electronically by: ??VERITO Morales, DR DE SANTIAGO ??on: ??Jan 04 2014 8:21A Ordering DR: ??Bois D Arc Attending DR: DIANE MOYA Procedure Note Provider, MD Mar - 10/25/2016 CT Abd/Pel W [id number] Acc#: [id number] DATE OF EXAM: Jan 03 2014 CLINICAL HISTORY: Abdominal pain. RESULT: PROTOCOL: Helically acquired axial images were obtained from the dome ofthe diaphragm to the pubic symphysis following the administration of oraland intravenous contrast. FINDINGS: The liver, spleen, pancreas, adrenals and kidneys are normal.The small and large bowel demonstrate normal caliber. The small bowel iscontained entirely on the right side of the abdomen with colon on the leftside of the abdomen consistent with malrotation. A lobular right adnexalcyst is present with loculated component extending into the pelvismeasuring approximately 6.3 x 4.0 cm. There is no evidence of freeascites or adenopathy. IMPRESSION: 1. FINDINGS CONSISTENT WITH INTESTINAL MALROTATION WHICH CORRELATES TO THEPATIENT'S HISTORY OF GASTROSCHISIS. 2. LOBULAR RIGHT ADNEXAL CYST EXTENDING INTO THE PELVIC CUL-DE-SAC. 3. OTHERWISE NORMAL CT OF THE ABDOMEN AND PELVIS. Interpreting Physician: DR JONNATHAN SELLERS M.D. Read on: Jan 03 20141:16P Transcribed by: светлана On: Jan 03 2014 6:10P Approved Electronically by: VERITO Morales, DR DE SANTIAGO on: Jan 04 20148:21A Ordering DR: Alison Attending DR: DIANE MOYA Historical Provider MD IMG CT PROCEDURES Final R esult * Serum lipase (01/03/2014 10:20 AM CDT) Lip 118 70 - 400 Units/L HISTORICAL RESULTS Serum 01/03/2014 10:2 0 AM CDT Michelle Mccracken MD LAB BLOOD ORDERABLES Final Result HISTORICAL RESULTS * (ABNORMAL) Blood cell count (CBC) (01/03/2014 10:20 AM CDT) WBC 14.7(H) 4.0 - 10.5 K/cumm HISTORICAL RESULTS RBC 4.43 4.20 - 5.40 M/cumm HISTORICAL RESULTS Hgb 14.2 12.0 - 16.0 g/dl HISTORICAL RESULTS Hct 40.7 37.0 - 47.0 % HISTORICAL RESULTS MCV 91.9 77.0 - 97.0 fl HISTORICAL RESULTS MCH 32.1 23.0 - 34.0 pg HISTORICAL RESULTS MCHC 34.9 32.0 - 36.0 g/dl HISTORICAL RESULTS Rdw 13.0 11.5 - 14.5 % HISTORICAL RESULTS Platelets 283 150 - 400 K/cumm HISTORICAL RESULTS MPV 9.7 7.4 - 10.4 fl HISTORICAL RESULTS Blood specimen (specimen) 01/03/2014 10:20 AM CDT Michelle Mccracken MD LAB BLOOD ORDERABLES Final Result HISTORICAL RESULTS * Serum amylase (01/03/2014 10:20 AM CDT) Debbi, sr 35 25 - 115 IUnits/L HISTORICAL RESULTS Serum 01/03/2014 10:2 0 AM CDT Michelle Mccracken MD LAB BLOOD ORDERABLES Final Result Performing Organization Address City/[facility] Co de Phone Number HISTORICAL RESULTS * (ABNORMAL) Blood WBC cell morphologic exam, auto (01/03/2014 10:20 AM CDT) [facility] Lymphocytes 16.8(L) 25.0 - 33.0 % HISTORICAL RESULTS Monos 10.0 0.0 - 13.0 % HISTORICAL RESULTS Neutrophils 68.7 54.0 - 69.0 % HISTORICAL RESULTS Eosinophils 4.0 0.0 - 10.0 % HISTORICAL RESULTS Basophils 0.2 0.0 - 1.0 % HISTORICAL RESULTS Immature granulocytes 0.3 0.0 - 1.0 % HISTORICAL RESULTS Lymphocytes, abs 2.5 1.2 - 3.4 K/cumm HISTORICAL RESULTS Monocytes, absolute 1.5 1.1 - 1.9 K/cumm HISTORICAL RESULTS Neutrophils, abs 10.1(H) 1.4 - 6.5 K/cumm HISTORICAL RESULTS Eosinophils, abs 0.6 0.0 - 0.7 cells/cum m HISTORICAL RESULTS Basophils, abs 0.0 0.0 - 0.2 K/cumm HISTORICAL RESULTS Immature granulocyte, abs 0.0(H) 0.0 - 0.0 K/cumm HISTORICAL RESULTS Blood specimen (specimen) 01/03/2014 10:20 AM CDT Michelle Mccracken MD LAB BLOOD ORDERABLES Final Result Performing Organization Address [facility] de Phone Number HISTORICAL RESULTS * (ABNORMAL) Serum comprehensive metabolic panel (01/03/2014 10:20 AM CDT) [facility] BUN 9.2 6.0 - 23.0 mg/dl HISTORICAL RESULTS Sodium 137 134 - 143 mmol/L HISTORICAL RESULTS Potassium, sr 3.8 3.4 - 5.0 mmol/L HISTORICAL RESULTS Chloride 105 99 - 108 mmol/L HISTORICAL RESULTS CO2 24 23 - 32 mmol/L HISTORICAL RESULTS Glucose 108 70 - 199 mg/dl HISTORICAL RESULTS Comment: [...] glucose. New reference ranges implemented 05/02/2013. Creatinine 0.89 0.60 - 1.30 mg/dl HISTORICAL RESULTS Comment: eGFR: >70 ml/min/1.73sq.m if non -Ecuadorean. eGFR: >70 ml/min/1.73sq.m if -Ecuadorean. AVE GFR for 20-29 yr. age group: ??116 ml/min/1.73sq.m Calculated using the MDRD Equation BUN/creat ratio 10 10 - 20 HIST ORICAL RESULTS A. gap 12 7 - 14 mmol/L HISTORICAL RESULTS Protein, sr 7.8 6.4 - 8.0 g/dl HISTORICAL RESULTS Alb 3.9 3.3 - 4.5 g/dl HISTORICAL RESULTS Alb/glob ratio 1.0(L) 1.1 - 1.8 HISTO RICAL RESULTS Calcium 9.2 8.6 - 9.8 mg/dl HISTORICAL RESULTS Bilirubin 0.4 0.0 - 1.1 mg/dl HISTORICAL RESULTS Alk phos 103 44 - 125 Units/L HISTORICAL RESULTS AST 15 5 - 40 Units/L HISTORICAL RESULTS ALT 25 15 - 70 Units/L HISTORICAL RESULTS Serum 01/03/2014 10:2 0 AM CDT Michelle Mccracken MD LAB BLOOD ORDERABLES Final Result HISTORICAL RESULTS * Urine chorionic gonadotropin (HCG) (01/03/2014 10:10 AM CDT) HCG, ur Negative NEGATIVE HISTORICAL RESULTS Urine 01/03/2014 10:1 0 AM CDT Historical Provider LAB BLOOD ORDERABLES Bouchra l Result HISTORICAL RESULTS * (ABNORMAL) Urinalysis (01/03/2014 10:10 AM CDT) Color, ur YELLOW YELLOW HISTORICAL RESULTS Clarity, ur CLEAR CLEAR HISTORIC AL RESULTS Specific gravity, ur 1.008 1.003 - 1.030 gu HISTORICAL RESULTS Leukocyte esterase, ur SMALL(A) NEGATIVE HISTORICAL RESULTS Nitrites, ur Negative NEGATIVE HISTORI OZIEL RESULTS pH, ur 6.0 6.0 HISTORICAL RESULTS Protein, ur Negative NEGATIVE HISTORIC AL RESULTS Glucose, ur Negative NEGATIVE HISTORIC AL RESULTS Ketones, ur Negative NEGATIVE HISTORIC AL RESULTS Urobilinogen, quant, ur 0.2 0.2 - 1.0 mg/dl HISTORICAL RESULTS Bilirubin, ur Negative NEGATIVE HISTOR ICAL RESULTS U Blood Negative NEGATIVE HISTORICAL RESULTS Urine 01/03/2014 10:1 0 AM CDT Michelle Mccracken MD LAB BLOOD ORDERABLES Final Result Performing Organization Address [facility] de Phone Number HISTORICAL RESULTS * (ABNORMAL) Urine microscopy (01/03/2014 10:10 AM CDT) WBC, ur 5 - 10(A) 0 - 2 /hpf HISTORICA L RESULTS RBC, ur 2 - 5(A) 0 - 5 /hpf HISTORICA L RESULTS Epithelial cells, ur 2 - 5(A) 0 - 2 /hpf HISTORICAL RESULTS Bacteria, ur Negative NEGATIVE /hpf HISTORICAL RESULTS Hyaline casts NOTSEEN 0 - 4 /lpf HISTO RICAL RESULTS Crystals, ur Negative NEGATIVE HISTORI OZIEL RESULTS Yeast, ur Negative NEGATIVE HISTORICAL RESULTS Pathological casts, ur Negative NEGATIVE HISTORICAL RESULTS Urine 01/03/2014 10:1 0 AM CDT Michelle Mccracken MD LAB BLOOD ORDERABLES Final Result Performing Organization Address [facility] de Phone Number HISTORICAL RESULTS * Microbiology Summary (01/03/2014 12:00 AM CDT) 01/03/2014 Narrative HISTORICAL RESULTS - 01/06/2014 12:38 AM CDT ? [facility] ?CLINICAL LABORATORIES ? MICROBIOLOGY REPORT PATIENT NAME: ??CHAD PHELAN ?MED RECORD#: ??[id number] BIRTHDATE: ??1985 ?? AGE: ??28 YRS SEX: F ?PATIENT#: ? [id number] ADMITTING DR: ??ALISON MONTERROSO MD ? ATTENDING DR: ??ALISON MONTERROSO MD ? ACCESSION#: ?? [id number] CREATED: ??01/06/14 ?? 0037 ? ADMIT DATE: ?? 01/03/14 ? MICRO - URINE URINE CULTURE ? Collected: 01/03/14 1010 ? Received: 01/03/14 1056 Source: CLEAN CATCH URINE ? Started: 01/03/14 1120 ?01/04/14 0605 ? LESS THAN 10,000 CFU/ml MULTIPLE GRAM POSITIVE ORGANISMS ? (SENSITIVITIES NOT PERFORMED) ?01/05/14 0832 ? LESS THAN 10,000 CFU/ml MULTIPLE GRAM POSITIVE ORGANISMS ? (SENSITIVITIES NOT PERFORMED) ?? END OF CHART us Historical Provider MD LAB MICROBIOLOGY - GENERA L ORDERABLES Final Result HISTORICAL RESULTS * Discharge Laboratory Cumulative Report (01/03/2014 12:00 AM CDT) 01/03/2014 Narrative HISTORICAL RESULTS - 01/04/2014 12:38 AM CDT Patient No: [id number] ? [facility] Patient Name: CHAD PHELAN ?[facility] Age: 28 YRS ?: 1985 ?Sex:F ?[address] )[phone] ?? Adm Dt: 01/03/2014 ?[place] ??[id number] Created: 01/04/2014 ??0038 ?? Pt. Type: E ? Discharge Dt: 01/03/2014 ? Pathologists: Freya Greggit Dr. Kirk Tee: UNKNOWN, NOTINFILE ? BLOOD CELL COUNTS ?Collection Date: ?01/03/14 ?Collection Time: ?1020 ? Ref Range: ?? Units: [4.00-10.50] /CMM ? WBC X 10^3 ? 14.67 H [4.20-5.40] ??/CMM ? RBC X 10^6 ?4.43 [12.0-16.0] ??G/DL ? HGB ? 14.2 [37.0-47.0] ??% ?HCT ? 40.7 [77.0-97.0] ??FL ? MCV ? 91.9 [23.0-34.0] ??PG ? MCH ? 32.1 [32.0-36.0] ??% ?MCHC ?34.9 [11.5-14.5] ??% ?RDW ? 13.0 [150-400] ?? /CMM ? PLT X 10^3 ? 283 ?BLOOD CELL DIFFERENTIAL ?Collection Date: ?01/03/14 ?Collection Time: ?1020 ? Ref Range: ?? Units: [54.0-69.0] ??% ?NEUTROPHILS ? 68.7 [25.0-33.0] ??% ?LYMPHOCYTES ? 16.8 L [0.0-13.0] ??% ?MONOCYTES ? 10.0 [0.0-10.0] ??% ?EOSINOPHILS ?4.0 [0.0-1.0] ?? % ?BASOPHILS ?0.2 ? /CMM ? A LYMPHOCYTE ? 2.5 [0.0-1.0] ?? % ?IMM GRAN % ? 0.3 [0.00-0.02] ??/CMM ? A IMM GRAN ?0.04 H [1.1-1.9] ?? /CMM ? A MONOCYTE ? 1.5 [1.4-6.5] ?? /CMM ? A NEUTROPHIL ?10.1 H [0.0-0.7] ?? /CMM ? A EOSINOPHIL ? 0.6 [0.0-0.2] ?? /CMM ? A BASOPHIL ? 0.0 Footnotes and Symbols: L = Low, H = High ?? CONTINUED ?Page: ?? 1 Patient No: [id number] ? [facility] Patient Name: CHAD PHELAN ?[facility] Age: 28 YRS ?: 1985 ?Sex:F ?[address] )[phone] ?? Adm Dt: 01/03/2014 ?[place] ??[id number] Created: 01/04/2014 ??0038 ?? Pt. Type: E ? Discharge Dt: 01/03/2014 ? Pathologists: Freya English MD Admit Dr. Kirk Tee: CAESAR, NOTINFILE ? GENERAL CHEMISTRY ?Collection Date: ?01/03/14 ?Collection Time: ?1020 ? Ref Range: ?? Units: [134-143] ?? MMOL/L ? SODIUM ? 137 [3.4-5.0] ?? MMOL/L ? POTASSIUM ?3.8 [99.0-108.0] MMOL/L ? CHLORIDE ? 105.0 [23.0-32.0] ??MMOL/L ? TOTAL CO2 ? 24.0 ?? [7-14] ?MMOL/L ? ANION GAP ? 12 ??[70-199] ?? MG/DL ?GLUCOSE ?108 f [6.4-8.0] ?? G/DL ? TOTAL PROTEIN ?7.8 [3.3-4.5] ?? G/DL ? ALBUMIN ?3.9 [1.1-1.8] ?A/G RATIO ?1.0 L [8.6-9.8] ?? MG/DL ?CALCIUM ?9.2 [0.0-1.1] ?? MG/DL ?BILI TOTAL ? 0.4 ??[44-125] ?? U/L ?ALK PHOS ? 103 ?? [5-40] ?U/L ?AST(SGOT) ? 15 f ??[15-70] ?U/L ?ALT(SGPT) ? 25 f [6.0-23.0] ??MG/DL ?BUN ?9.2 ??[10-20] ? B/C RATIO ? 10 Footnotes and Symbols: L = Low, f = Footnote GLUCOSE (05/24/13 -- Current) [...] (01/11/13 -- Current) ?? CONTINUED ?Page: ?? 2 Patient No: [id number] ? [facility] Patient Name: CHAD PHELAN ?[facility] Age: 28 YRS ?: 1985 ?Sex:F ?[address] )[phone] ?? Adm Dt: 01/03/2014 ?[place] ??[id number] Created: 01/04/2014 ??0038 ?? Pt. Type: E ? Discharge Dt: 01/03/2014 ? Pathologists: Freya English MD Admit Dr. Bradley Dr: UNKNOWN, NOTINFILE ? GENERAL CHEMISTRY ?Collection Date: ?01/03/14 ?Collection Time: ?1020 ? Ref Range: ?? Units: [0.60-1.30] ??MG/DL ?CREATININE ?0.89 f ?01/03/14 1020 eGFR: >70 ml/min/1.73sq.m if non -Ecuadorean. eGFR: >70 ml/min/1.73sq.m if -Ecuadorean. AVE GFR for 20-29 yr. age group: ??116 ml/min/1.73sq.m Calculated using the MDRD Equation FOOTNOTE ADDED ON ?? 01/03/14 ?? AT 1106 BY 999 ??[25-115] ?? U/L ?AMYLASE ? 35 f ??[70-400] ?? U/L ?LIPASE ? 118 ? HORMONES ?Collection Date: ?01/03/14 ?Collection Time: ?1010 ? Ref Range: ?? Units: [NEGATIVE] ?U ? NEGATIVE Footnotes and Symbols: f = Footnote AMYLASE (11/03/13 -- Current) ?? CONTINUED ?Page: ?? 3 Patient No: [id number] ? [facility] Patient Name: CHAD PHELAN ?[facility] Age: 28 YRS ?: 1985 ?Sex:F ?[address] )[phone] ?? Adm Dt: 01/03/2014 ?[place] ??[id number] Created: 01/04/2014 ??0038 ?? Pt. Type: E ? Discharge Dt: 01/03/2014 ? Pathologists: Freya English MD Admit Attend Dr: UNKNOWN, NOTINFILE ?URINALYSIS ?Collection Date: ?01/03/14 ?Collection Time: ?1010 ? Ref Range: ?? Units: [YELLOW] ? U COLOR ? YELLOW ??[CLEAR] ? U APPEARANCE ? CLEAR [1.003-1.030] ? U SPEC GRAVITY ? 1.008 [NEGATIVE] ?U LEUKO ESTRASE ?SMALL * [NEGATIVE] ?U NITRITE ? NEGATIVE ?? [6.0] ?U PH ? 6.0 [NEGATIVE] ?U PROTEIN ? NEGATIVE [NEGATIVE] ?U GLUCOSE ? NEGATIVE [NEGATIVE] ?U KETONES ? NEGATIVE [0.2- 1.0] ?UROBILINOGEN ? 0.2 [NEGATIVE] ?U BILIRUBIN ? NEGATIVE [NEGATIVE] ?U BLOOD ? NEGATIVE ?? [0-2] ?U WBC ? 5-10 * ?? [0-5] ?U RBC ?2-5 * ?? [0-2] ?U EPI CELLS ?2-5 * [NEGATIVE] ?U BACTERIA ?NEGATIVE ?U YEASTS ?NEGATIVE ?? [0-4] ?U HYALINE CASTS ? NOT SEEN [NEGATIVE] ?U CRYSTALS ?NEGATIVE [NEGATIVE] ?U PATH CASTS ?NEGATIVE Footnotes and Symbols: * = Abnormal ?? END OF CHART ? Page: ?? 4 us Historical Provider LAB BLOOD ORDERABLES Bouchra l Result Performing Organization Address City/State/[facility] Co de Phone Number HISTORICAL RESULTS documented in this encounter Visit Diagnoses Diagnosis Urinary tract infection Urinary tract infection, site not specified Other and unspecified ovarian cyst Tobacco use disorder Asthma Unspecified asthma Gastroschisis Other postprocedural states documented in this encounter
--- OUTSIDE RECORDS SUMMARY | 2024-06-08 20:17 | XMS_ITS | Encounter Summary ---
Author Organization [facility] Healthcare Address [address] [place] [address] Care Team Providers Care Promotions Associate Name Role Phone Mariia Gardner MD Primary Care Provider [phone] Encounter Details Date Type Department Care Team (Latest Contact Info) Description 10/16/2016 1:23 PM CDT - 10/16/2016 11:59 PM T Hospital Encounter [facility] [phone] Bere Burton MD [address] [place] [address] Discharge Disposition: Discharge to home or self care Social History Tobacco Use Types Packs/Day Years Used Date Smoking Tobacco: Former Comments Unknown Sex and Gender Information Value Date Recorded Sex Assigned at Not on file 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
--- OUTSIDE RECORDS SUMMARY | 2024-06-08 20:17 | XMS_ITS | Encounter Summary ---
Author Organization [facility] Healthcare Address [address] [place] [address] Care Team Providers Care Plant Equipment Engineer Name Role Phone Chad Goodson MD Primary Care Provide r Encounter Details Date Type Department Care Team (Late st Contact Info) Description 09/07/2014 3:14 PM CDT - 09/07/2014 11:59 PM CDT Hospital Encounter [facility] Chad Goodson MD [address] [place] [address] Other abnormal glucose Social History Tobacco Use Types Packs/Day Years Used Date Smoking Tobacco: Never Assessed Comments Unknown Sex and Gender Information Value Date Recorded Sex Assigned at Not on file 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 Gender Identity Not on file Sexual Orientation Not on file documented as of this encounter Plan of Treatment Not on file documented as of this encounter Procedures Procedure Name Priority Date/Time Associated Diagnosis Comments BLOOD GLYCATED HEMOGLOBIN Routine 09/07/2014 10:33 AM CDT DISCHARGE LABORATORY CUMULATIVE REPORT Routine 09/07/2014 12:00 AM CDT documented in this encounter Results * Blood glycated hemoglobin (09/07/2014 10:33 AM CDT) Glycated hemoglobin 5.5 4.0 - 6.0 % HISTORICAL RESULTS Blood specimen (specimen) 09/07/2014 10:33 AM CDT Narrative HISTORICAL RESULTS - 09/07/2014 11:26 AM CDT Estimated average Glucose A1C(%) ?? mg/dl ? [...] women were not included. (Diabetes Care 2008; 31:4308-4881) us Chad Mccollum MD LAB BLOOD ORDERABLES Final Result HISTORICAL RESULTS * Discharge Laboratory Cumulative Report (09/07/2014 12:00 AM CDT) 09/07/2014 Narrative HISTORICAL RESULTS - 09/09/2014 2:44 AM CDT Patient No: [id number] ? [facility] Patient Name: CHAD PHELAN ?[facility] Age: 29 YRS ?: 1985 ?Sex:F ?[address] )[phone] ?? Adm Dt: 09/07/2014 ?[place] ??[address] Created: 09/09/2014 ??0244 ?? Pt. Type: R ? Discharge Dt: 09/07/2014 ? Pathologists: Freya English MD Admit Attend Dr: CHAD GOODSON ?[facility] ?Collection Date: ?15 ?Collection Time: ?1533 ? Ref Range: ?? Units: [4.0-6.0] ?? % ?HEMOGLOBIN A1C ? 5.5 f Footnotes and Symbols: f = Footnote HEMOGLOBIN A1C (02/05/11 -- [...] women were not included. (Diabetes Care 2008; 31:8664-5078) ?? END OF CHART ? Page: ?? 1 us Historical Provider LAB BLOOD ORDERABLES Bouchra l Result HISTORICAL RESULTS documented in this encounter Visit Diagnoses Diagnosis Other abnormal glucose documented in this encounter Care Teams Plant Equipment Engineer Relationship Specialty Start Date End Date Chad Goodson MD PCP - General 05/31/14 09/12/14 documented as of this encounter
--- OUTSIDE RECORDS SUMMARY | 2024-06-08 20:17 | XMS_ITS | Encounter Summary ---
Author Organization [facility] Healthcare Address [address] [place] [address] Care Team Providers Care Axle Bearing Polisher Name Role Phone Lis Goodson MD Primary Care Provide r Encounter Details Date Type Department Care Team (Late st Contact Info) Description 10/03/2014 3:54 PM CDT - 10/03/2014 11:59 PM CDT Hospital Encounter [facility] Yordan Copeland MD [address] [address] [place] Valencia PA [address] [place] [address] [place] [address] Pain in joint, shoulder region; Disorder of synovium, tendon, and bursa; Osteoarthrosis, shoulder region Social History Tobacco Use Types Packs/Day Years Used Date Smoking Tobacco: Never Assessed Comments Unknown Sex and Gender Information Value Date Recorded Sex Assigned at Not on file 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 Gender Identity Not on file Sexual Orientation Not on file documented as of this encounter Plan of Treatment Not on file documented as of this encounter Procedures Procedure Name Priority Date/Time Associated Diagnosis Comments MRI UPPER EXTREMITY JOINT W CONTRAST Routine 10/03/2014 4:55 PM CDT documented in this encounter Results * MRI Upper Extremity Joint W Contrast (10/03/2014 4:55 PM CDT) Anatomical Region Laterality Modality Upper Extremities N/A Magnetic Reson ance 10/03/2014 4:55 PM CDT Narrative 10/04/2014 10:16 AM CDT MRI SHOULDER ??- RIGHT Acc#: ??[id number] DATE OF EXAM: ??Oct 03 2014 CLINICAL HISTORY: Chronic right shoulder pain x 12 years which has gotten progressively worse. RESULT: TECHNIQUE: ??Axial proton density and T1; coronal T2 fat sat and proton density; sagittal T2. Mild fraying of the supraspinatus tendon is seen near its insertion. ??No complete tear of the supraspinatus tendon is noted. ??The subscapularis tendon and teres minor tendon are intact. ??The long-head of biceps is maintained in an anatomic location with an intact appearing anchor. ??No muscular atrophy is seen. ??No abnormality of the labral capsular complex is identified. ??Spurring is seen at the acromioclavicular joint. ??No suspicious marrow signal is identified. ??No fluid is noted in the subacromial or subdeltoid bursas. IMPRESSION: 1. FRAYING OF THE DISTAL ASPECT OF THE SUPRASPINATUS TENDON WHICH MAY INDICATE TENDINOSIS OR A PARTIAL TEAR. 2. SPURRING OF THE ACROMIOCLAVICULAR JOINT. Interpreting Physician: ??CHAZ GARCIA M.D. ??Read on: ??Oct 03 2014 7:57P Transcribed by: ??walter ??On: Oct 03 2014 ??8:33P Approved Electronically by: ??CHAZ GARCIA M.D. ??on: ??Oct 04 2014 10:16A Attending: ??VALENCIA VALENCIA Requesting: ??VALENCIA VALENCIA PA-C Requesting Fax: ??-- Attending Fax: ??-- Attending ID: ??[id number] Requesting ID: ??[id number] Report To 1 ID: ??[id number] Report To 1 Name: ??VALENCIA VALENCIA Report To 1 FAX: ??-- NextGen Order #: Procedure Note Provider, MD Mar - 10/25/2016 MRI SHOULDER - RIGHT Acc#: [id number] DATE OF EXAM: Oct 03 2014 CLINICAL HISTORY: Chronic right shoulder pain x 12 years which has gotten progressivelyworse. RESULT: TECHNIQUE: Axial proton density and T1; coronal T2 fat sat and protondensity; sagittal T2. Mild fraying of the supraspinatus tendon is seennear its insertion. No complete tear of the supraspinatus tendon isnoted. The subscapularis tendon and teres minor tendon are intact. Thelong-head of biceps is maintained in an anatomic location with an intactappearing anchor. No muscular atrophy is seen. No abnormality of thelabral capsular complex is identified. Spurring is seen at theacromioclavicular joint. No suspicious marrow signal is identified. Nofluid is noted in the subacromial or subdeltoid bursas. IMPRESSION: 1. FRAYING OF THE DISTAL ASPECT OF THE SUPRASPINATUS TENDON WHICH MAYINDICATE TENDINOSIS OR A PARTIAL TEAR. 2. SPURRING OF THE ACROMIOCLAVICULAR JOINT. Interpreting Physician: CHAZ GARCIA M.D. Read on: Oct 03 20147:[id number] Transcribed by: светлана On: Oct 03 2014 8:33P Approved Electronically by: CHAZ GARCIA M.D. on: Oct 04 201410:16A Attending: VALENCIA VALENCIA Requesting: VALENCIA VALENCIA PA-C Requesting Fax: -- Attending Fax: -- Attending ID: [id number] Requesting ID: [id number] Report To 1 ID: [id number] Report To 1 Name: VALENCIA VALENCIA Report To 1 FAX: -- NextGen Order #: us Historical Provider MD DENISE MRI PROCEDURES Final Result documented in this encounter Visit Diagnoses Diagnosis Pain in joint, shoulder region Disorder of synovium, tendon, and bursa Unspecified disorder of synovium, tendon, and bursa Osteoarthrosis, shoulder region Osteoarthrosis, unspecified whether generalized or localized, shoulder region documented in this encounter Care Teams Axle Bearing Polisher Relationship Specialty Start Date End Date Lis Goodson MD PCP - General 09/13/14 08/17/16 documented as of this encounter
--- OUTSIDE RECORDS SUMMARY | 2024-06-08 20:17 | XMS_ITS | Encounter Summary ---
Author Organization [facility] Healthcare Address [address] [place] [address] Care Team Providers Care Rn Infusion Name Role Phone Mariia Gardner MD Primary Care Provider [phone] Encounter Details Date Type Department Care Team (Latest Contact Info) Description 09/19/2016 4:16 PM CDT - 09/19/2016 11:59 PM CDT Hospital Encounter [facility] OP INTERIM [phone] Shyla Eddy MD [address] [facility] [id number] [place] [address] Discharge Disposition: Discharge to home or self care Social History Tobacco Use Types Packs/Day Years Used Date Smoking Tobacco: Former Comments Unknown Sex and Gender Information Value Date Recorded Sex Assigned at Not on file 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 Gender Identity Not on file Sexual Orientation Not on file documented as of this encounter Discharge Disposition Disposition Code Departure Means Destination Discharge to home or self care documented in this encounter Plan of Treatment Not on file documented as of this encounter Procedures Procedure Name Priority Date/Time Associated Diagnosis Comments URINALYSIS Routine Gen Lab 09/19/2016 4:16 PM CDT URINALYSIS, MICROSCOPIC ONLY Routine Gen Lab 09/19/2016 4:16 PM CDT URINE CULTURE Routine Gen Lab 09/19/2016 4:16 PM CDT documented in this encounter Results * (ABNORMAL) Urinalysis, microscopic (09/19/2016 4:16 PM CDT) RBC, ur 14(H) 0 - 3 /HPF [facility] WBC, ur 6(H) 0 - 5 /HPF [facility] Bacteria, ur 2+(A) Trace [facility] Epithelial cells, renal, ur 0 0 - 0 /HPF [facility] Epithelial cells, squamous, ur >20 /LPF [facility] Mucus, ur Small /HPF [facility] Calcium oxalate crystals, ur >30(H) 0 - 0 /HPF [facility] Urine 09/19/2016 4:16 PM CDT 09/19/2016 8:01 PM CDT Shyla Eddy MD LAB URINE ORDERABLES F inal Result [facility] Department [place] [address] * (ABNORMAL) Urinalysis (09/19/2016 4:16 PM CDT) Color, ur Yellow Yellow [facility] Clarity, ur Cloudy(A) Clear [facility] Specific gravity, ur 1.014 1.003 - 1.030 [facility] pH, ur 7.0 5.0 - 8.0 [facility] Albumin, ur Negative Trace [facility] Glucose, ur ql Negative Negative [facility] Ketones, ur Negative Negative [facility] Bilirubin, ur Negative Negative [facility] Blood, ur 1+(A) Negative [facility] Urobilinogen, ur <2.0 <2.0 mg/dL [facility] Nitrites, ur Negative Negative [facility] Leukocyte esterase, ur 2+(A) Negative [facility] Urine 09/19/2016 4:16 PM CDT 09/19/2016 8:01 PM CDT Shyla Eddy MD LAB URINE ORDERABLES F inal Result Performing Organization Address City/[facility] Co de Phone Number [facility] Department [place] [address] * Urine culture (09/19/2016 4:16 PM CDT) Report Final Report: Insignificant growth based on current clinical standards. [facility] Urine 09/19/2016 4:16 PM CDT 09/19/2016 8:05 PM CDT Narrative [facility] - 09/20/2016 2:36 PM CDT us Shyla Eddy MD LAB MICROBIOLOGY - GEN ERAL ORDERABLES Final Result Performing Organization Address [facility] Co de Phone Number [facility] [place] [address] documented in this encounter Visit Diagnoses Not on filedocumented in this encounter Care Teams Rn Infusion Relationship Specialty Start Date End Date Mariia Gardner MD PCP - General 08/18/16 08/18/18 documented as of this encounter
--- OUTSIDE RECORDS SUMMARY | 2024-06-08 20:17 | XMS_ITS | Encounter Summary ---
Author Organization [facility] Facility Care Team Providers Care Client Success Specialist Name Role Phone Lis Goodson MD Primary Care Provide r Encounter Details Date Type Department Care Team (Late st Contact Info) Description 05/02/2016 10:03 AM CLEARANCE DIVER - 05/02/2016 11:59 PM CLEARANCE DIVER [facility] [address] [phone] [place] [address] Type 1 diabetes mellitus without complications (CMS/HCC); Supervision of high-risk ; Pre-existing type 1 diabetes mellitus during Social History Tobacco Use Types Packs/Day Years Used Date Smoking Tobacco: Former Comments Unknown Sex and Gender Information Value Date Recorded Sex Assigned at Not on file Legal 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 Female 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 Gender Identity Not on file Sexual Orientation Not on file documented as of this encounter Plan of Treatment Not on file documented as of this encounter Procedures Procedure Name Priority Date/Time Associated Diagnosis Comments URINE VOLUME, TIMED Routine 05/02/2016 7 :45 AM CLEARANCE DIVER URINE PROTEIN, 24 HOUR Routine 05/02/2016 7:45 AM CLEARANCE DIVER SERUM CREATININE Routine 05/02/2016 7:45 AM CLEARANCE DIVER SERUM / URINE CREATININE CLEARANCE, 24 HOUR Routine 05/02/2016 7:45 AM CLEARANCE DIVER DISCHARGE LABORATORY CUMULATIVE REPORT 05/02/2016 documented in this encounter Results * Urine protein, 24 hour (05/02/2016 7:45 AM CLEARANCE DIVER) Protein, 24 hr, ur 112.0 1.0 - 150.0 mg/24 hr CDR HISTORICAL RESULTS Urine 05/02/2016 7:45 AM CLEARANCE DIVER us Mariia Gardner MD LAB BLOOD ORDERABLES Final Result Performing Organization Address [facility] Co de Phone Number CDR HISTORICAL RESULTS * (ABNORMAL) Serum / urine creatinine clearance, 24 hour (05/02/2016 7:45 AM CLEARANCE DIVER) Creatinine clearance 198(H) 60 - 130 ml/min CDR HISTORICAL RESULTS Creatinine, 24 hr, ur 1.51(H) 0.60 - 1.50 g/24 hr CDR HISTORICAL RESULTS Multiple specimen 05/02/2016 7:45 AM CLEARANCE DIVER us Mariia Gardner MD LAB BLOOD ORDERABLES Final Result Performing Organization Address [facility] de Phone Number CDR HISTORICAL RESULTS * (ABNORMAL) Serum creatinine (05/02/2016 7:45 AM CLEARANCE DIVER) Creatinine 0.53(L) 0.60 - 1.10 mg/dl CDR HISTORICAL RESULTS Serum 05/02/2016 7:45 AM CLEARANCE DIVER us Mariia Gardner MD LAB BLOOD ORDERABLES Final Result Performing Organization Address City/[facility] Co de Phone Number CDR HISTORICAL RESULTS * Urine volume, time (05/02/2016 7:45 AM CLEARANCE DIVER) Volume, ur 1250 ml CDR HISTO RICAL RESULTS Collection period, ur 1415 minutes CDR HISTORICAL RESULTS Urine 05/02/2016 7:45 AM CLEARANCE DIVER us Mariia Gardner MD LAB BLOOD ORDERABLES Final Result CDR HISTORICAL RESULTS * DISCHARGE LABORATORY CUMULATIVE REPORT (05/02/2016) Narrative 05/02/2016 Ordered by an unspecified provider. us Historical Provider LAB BLOOD ORDERABLES Bouchra l Result documented in this encounter Visit Diagnoses Diagnosis Type 1 diabetes mellitus without complications (HCC) Supervision of high-risk Pre-existing type 1 diabetes mellitus during documented in this encounter Care Teams Client Success Specialist Relationship Specialty Start Date End Date Lis Goodson MD PCP - General 09/13/14 08/17/16 documented as of this encounter
--- OUTSIDE RECORDS SUMMARY | 2024-06-08 20:18 | XMS_ITS | Encounter Summary ---
Author Organization [facility] Address [address] [place] [address] Care Team Providers Care Excavation Laborer Name Role Phone Bijal Wolfe MD Primary Care Provider [phone] Reason for Visit * Reason Onset Date Comments Medication Refill 04/25/2024 Encounter Details Date Type Department Care Team (Late st Contact Info) Description 04/25/2024 Refill [facility] at Work [address] [place] [address] Bijal Wolfe MD [address] [place] [address] Social History Tobacco Use Types Packs/Day Years Used Date Smoking Tobacco: Former Cigarettes 1 10 0 03/02/2006 - 03/02/2016 Smokeless Tobacco: Never Alcohol Use Standard Drinks/Week Comments No 0 (1 standard drink = 0.6 oz pur e alcohol) Feeling Safe Answer Date Recorded Are you in a relationship wi th someone who hurts you emotionally and/or physically? 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 Office Visit [facility] Orthopedic Surgery at the [facility] Medicine [address] [facility] [address] [place] [address] [place] [address] [place] [address] 10/27/2024 2:45 PM CDT Office Visit [facility] Gastroenterology [facility] [address] [facility] [address] [place] [phone] Bebo Benites MD [address] [facility] [address] [place] [address] documented as of this encounter Visit Diagnoses Not on filedocumented in this encounter Additional Health Concerns Assessment Noted Time PHQ-9 Depression Total Score: 4 08/21/19 24 1:00 PM LAUNCH STEWARD documented as of this encounter Care Teams Excavation Laborer Relationship Specialty Start Date End Date Bijal Wolfe MD [address] [place] [id number] PCP - General Internal Medicine 12/14/23 documented as of this encounter
--- OUTSIDE RECORDS SUMMARY | 2024-06-08 20:18 | XMS_ITS | Clinical Summary ---
Author Organization [facility] [place] Address [address] [place] [address] Care Team Providers Care Branch Employment Coordinator Name Role Phone Bijal Wolfe MD Primary Care Provider [phone] Allergies Active Allergy Reactions Criticality Noted Date Comments Meperidine Swelling Low 07/08/2018 Metronidazole Nausea and Vomiting Medium 05/20/2017 Other reaction(s): Vomiting Tramadol Hives High 04/01/2017 Varenicline Anaphylaxis High 04/01/2017 Medications Medication Sig Dispensed Refills Start Date End Date Status cetirizine (ZyrTEC) 10 mg tablet Take 10 mg by mouth daily. Active cholecalciferol, vitamin D3, 1,000 unit Take by mouth. Active fluticasone propionate (FLONASE) 50 mcg/spray [place], Suspension nasal inhalerIndications :Acute intractable headache, unspecified headache type Administer 2 Sprays in each nostril daily. 16 Gram 09/16/2022 Active Nexplanon 68 mg Implant Inject 68 mg by subcutaneous injection one time only. 01/14/2023 Active metFORMIN (GLUCOPHAGE) 500 mg tabletIndications: Type 2 diabetes mellitus without complication, without long-term current use of insulin Take 1 Tablet (500 mg) by mouth 2 times daily with meals. 180 Tablet 12/15/2023 Active rosuvastatin (CRESTOR) 40 mg tablet Take 1 Tablet (40 mg) by mouth daily at bedtime. 90 Tablet 12/15/2023 Active tirzepatide (Mounjaro) 10 mg/0.5 mL Pen InjectorIndication s:Type 2 diabetes mellitus without complication, without long-term current use of insulin,Severe obesity (BMI 35.0-39.9) with comorbidity Inject 10 mg by subcutaneous injection every 7 days. 6 mL 1 02/15/2024 Active pantoprazole (PROTONIX) 40 mg Tablet, Delayed Release (E.C.) Take 1 Tablet (40 mg) by mouth daily. 90 Tablet 4 02/15/2024 Active meloxicam (MOBIC) 7.5 mg tabletIndications: Pain in right buttock Take 1 Tablet (7.5 mg) by mouth daily. 30 Tablet 04/21/2024 Active albuterol sulfate HFA 90 mcg/actuation aerosol inhalerIndications :Mild intermittent asthma without complication Take 1-2 Puffs by inhalation every 6 hours as needed for Shortness of Breath or Wheezing. 8.5 Gram 04/21/2024 Active escitalopram oxalate (LEXAPRO) 10 mg tablet Take 1 Tablet (10 mg) by mouth daily. 90 Tablet 04/26/2024 Active lisinopriL (PRINIVIL) 10 mg tablet Take 1 Tablet (10 mg) by mouth daily. 90 Tablet 04/26/2024 Active buPROPion HCL (Wellbutrin XL) 300 mg Extended Release 24 hour tablet Take 1 Tablet (300 mg) by mouth daily in the morning. 90 Tablet 04/26/2024 Active hyoscyamine ER 0.375 mg tablet,extended release,12 hr Take 1 Tablet (0.375 mg) by mouth daily. Take this once daily in the am 30 Tablet 5 04/27/2024 Active acetaminophen (TYLENOL) 500 mg tablet Take 2 Tablets (1,000 mg) by mouth every 8 hours for 14 days. 84 Tablet 06/03/2024 06/17/2024 Active oxyCODONE (ROXICODONE) 5 mg tabletIndications: Carpal tunnel syndrome of left wrist Take 1 Tablet (5 mg) by mouth every 4 hours as needed for Pain. 5 Tablet 06/03/2024 Active Active Problems Problem Noted Date Diagnosed Date Severe obesity (BMI 35.0-39.9) with comorbidity 08/28/2023 Overview (08/28/2023): DM, HLD, Nightmares associated with c hronic post-traumatic stress disorder 08/28/2023 Overview (03/07/2024): Did not tolerate prazosin 1 mg dose. Unsteady, felt confused. Vitamin D insufficiency 12/09/2021 HTN (hypertension), benign 12/29/2020 GERD (gastroesophageal reflux disease) Major depression 12/29/2020 Irregular periods 12/06/2019 History of gastroschisis 11/01/2019 Microalbuminuria 12/09/2018 Type 2 diabetes mellitus wit hout complication, without long-term current use of insulin 07/08/2018 Hyperlipidemia 07/08/2018 Mild intermittent asthma without complication Herpes simplex type 2 infection 04/16/2016 Resolved Problems Problem Noted Date Diagnosed Date Resolved Date Right flank pain 03/26/2023 08/28/2023 Pyelonephritis 03/26/2023 08/28/2023 Infectious gastroenteritis 12/29/2020 0 12/09/2021 Blood pressure elevated with out history of HTN 01/06/2020 07/23/2020 Vertigo 01/06/2020 12/09/2021 Right upper quadrant abdominal pain 11/01/2019 11/11/2019 Acute calculous cholecystitis 11/01/2019 12/09/2021 Dysphagia 12/09/2018 12/09/2021 Recurrent major depressive d isorder, in partial remission 04/01/2017 12/09/2021 Asthma 05/31/2014 12/09/2021 Overview (12/06/2019): Asthma Ileus 12/09/2021 Encounters Date Type Department Care Team Description 06/03/2024 2:45 PM BURGLARY INVESTIGATOR - 06/03/2024 3:22 PM BURGLARY INVESTIGATOR Surgery [facility] [address] [place] [address] Paddy Mackey MD [facility] CARPAL TUNNEL RELEASE 06/03/2024 1:09 PM BURGLARY INVESTIGATOR - 06/03/2024 2:56 PM BURGLARY INVESTIGATOR Hospital Encounter [facility] [address] [place] [address] Paddy Mackey MD Carpal tunnel syndrome on left Discharge Disposition: Home or Self Care 05/25/2024 Prep for Surgery [facility] Orthopedic Surgery at the [facility] [address] [place] [address] Heriberto Leal, PCT Pre-op testing (Primary Dx) 05/04/2024 Abstract [facility] at [facility] [address] [place] [phone] Aida, Wilda 05/03/2024 Telephone [facility] G[facility]enterology [facility] [address] [place] [address] Cheyenne Kendall PA-C FMLA 04/27/2024 1:00 PM BURGLARY INVESTIGATOR Office Visit [facility] Gastroenter[facility] [address] [place] [address] Cheyenne Kendall PA-C Chronic diarrhea (Primary Dx); Bilateral lower abdominal pain 04/26/2024 2:20 PM BURGLARY INVESTIGATOR Procedure visit [facility] at [facility] [employer] [place] [address] [place] [phone] Encounter for issue of repeat prescription (Primary Dx) 04/25/2024 Refill [facility] at [facility] [address] [place] [phone] Bijal Wolfe MD 04/21/2024 Orders Only [facility] Orthopedic Surgery at the [facility] [address] [place] [address] RD [address] [place] [phone] Paddy Mackey MD 04/21/2024 Refill [facility] at [facility] [address] [place] [phone] Luba Vuong, KD Pain in right buttock; Mild intermittent asthma without complication 04/20/2024 9:00 AM CDT Office Visit [facility] Orthopedic Surgery - [place] [id number] [place] [phone] Paddy Mackey MD Left carpal tunnel syndrome (Primary Dx) 04/20/2024 Chart Note [facility] Orthopedic Surgery at the [facility] Medicine [address] [place] [address] Paddy Mackey MD 03/15/2024 External Device Data ST[facility] ABSTRACTION Provider, Abstract from Last 3 Months Immunizations Name Administration Dates Next Due (PNEUMOVAX 23)(50 YRS UP) PN EUMOCOCCAL POLYSACCHARIDE (PPV23) 0.5 ML, IM 11/05/2018 INFLUENZA VACCINE QUADRIVALENT 3 YR UP PF IM 04/2017 INFLUENZA VACCINE QUADRIVALENT 6 MOS UP IM 03/23,03/25/2018 Family History Medical History Relation Name Comments Unknown Brother No Known Problems Daughter Lung Cancer Father Stroke Father Unknown Maternal Grandfather Unknown Maternal Grandmother High Cholesterol Mother Hypertension Mother Kidney Disease Paternal Grandfather Diabetes Paternal Grandmother No Known Problems Son Celiac Disease Neg Hx Colon Cancer Neg Hx Crohn's Disease Neg Hx Inflammatory Bowel Disease Neg Hx Relation Name Status Comments Brother Alive Daughter Alive Father Alive Maternal Grandfather Maternal Grandmother Mother Alive Paternal Grandfather Paternal Grandmother Alive Son Alive Social History Tobacco Use Types Packs/Day Years Used Date Smoking Tobacco: Former Cigarettes 1 10 0 03/02/2006 - 03/02/2016 Smokeless Tobacco: Never Tobacco Cessation:Counseling Given: Not Answered Alcohol Use Standard Drinks/Week Comments No 0 (1 standard drink = 0.6 oz pur e alcohol) Feeling Safe Answer Date Recorded Are you in a relationship wi th someone who hurts you emotionally and/or physically? No 06/03/2024 Sex and Gender Information Value Date Recorded Sex Assigned at Not on file Gender Identity Not on file Sexual Orientation Not on file Last Filed Vital Signs Vital Sign Reading Time Taken Comments Blood Pressure 173/103 06/03/2024 2:47 PM BURGLARY INVESTIGATOR Pulse 97 06/03/2024 2:47 PM BURGLARY INVESTIGATOR Temperature 36.4 ??C (97.5 ??F) 06/03/2024 2:47 PM CS T Respiratory Rate 16 06/03/2024 1:21 PM BURGLARY INVESTIGATOR Oxygen Saturation 98% 06/03/2024 2:47 PM BURGLARY INVESTIGATOR Inhaled Oxygen Concentration - - Weight 105.7 kg (233 lb) 06/03/2024 1:21 PM BURGLARY INVESTIGATOR Height 167.6 cm (5' 6 ) 06/03/2024 1:21 PM BURGLARY INVESTIGATOR Body Mass Index 37.61 06/03/2024 1:21 PM BURGLARY INVESTIGATOR Plan of Treatment Upcoming Encounters Date Type Department Care Team (Late st Contact Info) Description 06/20/2024 9:30 AM BURGLARY INVESTIGATOR Office Visit [facility] Orthopedic Surgery at the [facility] Medicine [address] [place] [address] [place] [address] [place] [address] 10/27/2024 2:45 PM CDT Office Visit [facility] G[facility] [place] [address] [place] [address] Bebo Benites MD [address] [place] [address] Health Maintenance Due Date Last Done Comments DIABETES ANNUAL RETINAL EXAM 01/31/2004 DTAP/TDAP/TD VACCINES (1 - Tdap) 2005 HEPATITIS B VACCINES (1 of 3 - 19+ 3-dose series) 2005 PNEUMOCOCCAL VACCINE 0-64 YEARS (2 of 2 - PCV) 11/06/2019 11/05/2018 CERVICAL CANCER SCREENING 11/20/20192016 (Previously completed) DIABETES ANNUAL FOOT EXAM 08/03/2021 08/03/2020 INFLUENZA VACCINE (#1) 2024 1, 03/23/2019, 03/25/2018, Additional history exists DIABETES HBA1C Q 6 MONTHS 02/27/20242023, 01/14/2023, 07/04/2022, Additional history exists DIABETES MICROALBUMIN ANNUAL SCREEN 08/26/2024 08/27/2023, 07/04/2022, 12/04/2021, Additional history exists LDL CHOLESTEROL ANNUAL 08/26/2024 4, 01/14/2023, 11/12/2022, Additional history exists COLORECTAL SCREENING 02/10/2027 02/10/2022, 02/11/20 22 HPV VACCINES Aged Out No longer eligi ble based on patient's age to complete this topic Medical Devices Implanted Type Area Directional Survey Drafter Device Identifier Shelf Expiration Date Model / Serial / Lot Airport Screener Endoclip Iii 5mm W/Cliplogic [id number] - [id number] Implanted:Qty : 1 on 11/03/2019 by Gabbie Wheeler MD at [facility] Clip N/A: Abdomen [employer] - COVIDIEN [id number] 05/21/2022 [id number] / / [id number] Sealant Fibrin Vistaseal 10ml Vst10 - [id number] Implanted:Qty : 1 on 11/03/2019 by Gabbie Wheeler MD at [facility] Sealant N/A: Abdomen J[employer]J- [employer] 03/20/2021 [id number] / / [id number] Procedures Procedure Name Priority Date/Time Associated Diagnosis Comments [place] NEUROPLASTY &/TRANSPOS MEDIAN NRV CARPAL TUNNE 06/03/2024 2:45 PM BURGLARY INVESTIGATOR Carpal tunnel syndrome on left MICROALBUMIN/CREATIN INE RATIO, RANDOM UR Routine 08/27/2023 2:38 PM BURGLARY INVESTIGATOR Type 2 diabetes mellitus without complication, without long-term current use of insulin HEMOGLOBIN A1C Routine 08/27/2023 2:38 PM BURGLARY INVESTIGATOR Type 2 diabetes mellitus without complication, without long-term current use of insulin LIPID PANEL Routine 08/27/2023 2:38 PM BURGLARY INVESTIGATOR Type 2 diabetes mellitus without complication, without long-term current use of insulin COLONOSCOPY REPORT 02/10/2022 3: 31 PM CDT from Last 3 Months or Most Recently Relevant to Health Maintenance Results * MICROALBUMIN/CREATININE RATIO, RANDOM UR (08/27/2023 2:38 PM BURGLARY INVESTIGATOR) Creatinine, Urine 162 20 - 275 mg/dL [facility] MICROALBUMIN, URINE 0.9 See Note: mg/dL [facility] Comment: Reference Range: Reference Range Not established MICROALBUMIN/CREAT RATIO, UR 6 <30 mcg/mg creat [facility] Comment: The ADA defines abnormalities in albumin excretion as follows: Albuminuria Category ?Result (mcg/mg creatinine) Normal to Mildly increased ?? <30 Moderately increased ? 30-299 Severely increased ? > OR = 300 The ADA recommends that at least two of three specimens collected within a 3-6 month period be abnormal before considering a patient to be within a diagnostic category. Test Performed at: [facility] [address] [place], [place] ??[address] Molina Pascual MD Urine URINE SPECIMEN OBTAINED BY CLEAN CATCH PROCEDURE / Unknown 08/27/2023 2:38 PM BURGLARY INVESTIGATOR 08/28/2023 3:11 AM BURGLARY INVESTIGATOR Luba YI URINE ORDERABLES [facility] [phone] [facility] [address] [place] [address] * HEMOGLOBIN A1C (08/27/2023 2:38 PM BURGLARY INVESTIGATOR) HEMOGLOBIN A1C 5.4 <5.7 % of total Hgb [facility] Comment: For the purpose of screening for the presence of diabetes: <5.7% ? Consistent with the absence of diabetes 5.7-6.4% ?Consistent with increased risk for diabetes ?(prediabetes) > or =6.5% ??Consistent with diabetes This assay result is consistent with a decreased risk of diabetes. Currently, no consensus exists regarding use of hemoglobin A1c for diagnosis of diabetes in children. According to [place] Diabetes Association (ADA) guidelines, hemoglobin A1c <7.0% represents optimal control in non- diabetic patients. Different metrics may apply to specific patient populations. Standards of Medical Care in Diabetes(ADA). ?? ESTIMATED AVERAGE GLUCOSE (MG/DL) 108 mg/dL [facility] ESTIMATED AVERAGE GLUCOSE (MMOL/L) 6.0 mmol/L [facility] Comment: ?? This test was performed on the [employer] c8000 platform. Please be advised that [facility] will move hemoglobin A1c testing to the [employer] platform soon. In general, direct comparison of the results from different platforms is not recommended. Test Performed at: [facility] [address] [place] ??[address] Rudyu Thi Vo Blood 08/27/2023 2:38 PM BURGLARY INVESTIGATOR 08/28/2023 12:19 AM BURGLARY INVESTIGATOR Luba Martins Yevgeniy ANP CHEMISTRY ORDERABLES Performing Organization Address City/[facility]/ZIP Code Phone Number [facility] [phone] [facility] [place] [address] [place] [address] * LIPID PANEL (08/27/2023 2:38 PM BURGLARY INVESTIGATOR) CHOLESTEROL TNP mg/dL [facility] Comment: TEST NOT PERFORMED No suitable specimen received. Please review the test requirements at [facility] HDL TNP mg/dL [facility] Comment: TEST NOT PERFORMED No suitable specimen received. Please review the test requirements at [facility] TRIGLYCERIDE TNP mg/dL [facility] Comment: TEST NOT PERFORMED No suitable specimen received. Please review the test requirements at [facility] LDL CALCULATED TNP mg/dL (calc) [facility] Comment: TEST NOT PERFORMED No suitable specimen received. Please review the test requirements at [facility] CHOL/HDL RATIO TNP (calc) [facility] Comment: TEST NOT PERFORMED No suitable specimen received. Please review the test requirements at [facility] TOTAL NON-HDL CHOL(LDL+VLDL) TNP mg/dL (calc) [facility] Comment: TEST NOT PERFORMED No suitable specimen received. Please review the test requirements at [facility] Test Performed at: [facility] [address] [place] ??[phone] Carol-Diogenesu Thi Vo Blood 08/27/2023 2:38 PM BURGLARY INVESTIGATOR 08/28/2023 12:19 AM BURGLARY INVESTIGATOR Luba Martins Yevgeniy ANP CHEMISTRY ORDERABLES Performing Organization Address City/[facility] Code Phone Number [facility] [phone] [facility] [address] [place] [address] * COLONOSCOPY REPORT (02/10/2022 3:31 PM CDT) Narrative Procedure Note Bebo Benites MD - 02/10/2022 3:29 PM CDT [facility] Endoscopy Patient Name: Lis Phelan Procedure Date: 02/10/2022 Date of : 1985 Attending MD: Bebo Benites MD Procedure: Colonoscopy Indications: Change in bowel habits Providers: Bebo Benites MD Referring MD: Francis Pereyra MD Complications: No immediate complications. Procedure: Informed consent was obtained for the procedure, including moderate sedation after risks were discussed. Based on the pre-procedure assessment, including review of the patient's medical history, medications, allergies, and review of systems, the patient was deemed to be an appropriate candidate for sedation. A timeout was performed. Continuous ECG monitoring, pulse oximetry, blood pressure monitoring, and direct observation were performed. The Colonoscope was introduced through the anus and advanced to the terminal ileum. The colonoscopy was performed without difficulty. The patient tolerated the procedure well. The quality of the bowel preparation was good. Estimated Blood Loss: Estimated blood loss was minimal. Findings: The digital rectal exam was normal. The terminal ileum appeared normal. A few diverticula were found in the entire colon. A 6 mm polyp was found in the transverse colon. The polyp was sessile. The polyp was removed with a cold snare. Resection and retrieval were complete. The retroflexed view of the distal rectum and anal verge was normal and showed no anal or rectal abnormalities. Biopsies for histology were taken with a cold forceps from the right colon and left colon for evaluation of microscopic colitis. Impression: - The examined portion of the ileum was normal. - Diverticulosis in the entire examined colon. - One 6 mm polyp in the transverse colon, removed with a cold snare. Resected and retrieved. - The distal rectum and anal verge are normal on retroflexion view. - Biopsies were taken with a cold forceps from the right colon and left colon for evaluation of microscopic colitis. Recommendation: - Discharge patient to home. - Continue present medications. - Await pathology results. - If you are active on My [facility], you will receive the biopsy results as a message via that account. If you do not have [employer] [facility] account, you will receive a call from my office regarding your results. If you do not hear from us about your results within a week, please contact our office at [phone] . Bebo Benites MD 02/10/2022 3:29:41 PM This report has been signed electronically. Number of Addenda: [address]; [place] [address] Bebo Benites MD GI PROCEDURE ORD ERABLES from Last 3 Months or Most Recently Relevant to Health Maintenance Advance Directives For more information, please contact: [phone] * Full Code (Latest Code Status on File) Date Activated Date Inactivated Comments 06/03/2024 1:28 PM 06/03/2024 4:56 PM * Default Full Code - Needs Discussion Date Activated Date Inactivated Comments 03/26/2023 6:46 AM 03/26/2023 2:04 PM * Full Code Date Activated Date Inactivated Comments 02/10/2022 1:48 PM 02/10/2022 6:04 PM * Full Code Date Activated Date Inactivated Comments 06/11/2021 6:56 AM 06/11/2021 12:27 PM * Full Code Date Activated Date Inactivated Comments 12/29/2020 2:46 AM 12/30/2020 4:50 PM Care Teams Branch Employment Coordinator Relationship Specialty Start Date End Date Bijal Wolfe MD [address] [place] [phone] PCP - General Internal Medicine 12/14/23
--- OUTSIDE RECORDS SUMMARY | 2024-06-08 20:18 | XMS_ITS | Encounter Summary ---
Author Organization [facility] Address [address] [place] [address] Care Team Providers Care Shale Planer Operator Name Role Phone Bijal Wolfe MD Primary Care Provider [phone] Encounter Details Date Type Department Care Team (Late Contact Info) Description 04/21/2024 Orders Only [facility] Orthopedic Surgery at the [address] [place] [address] [place] [address] [place] [address] Social History Tobacco Use Types Packs/Day Years [...] st Contact Info) Description 06/20/2024 9:30 AM CHIEF ACCOUNTING OFFICER Office Visit [facility] Orthopedic Surgery at the [place] [address] [place] [address] [place] [address] [place] [address] 10/27/2024 2:45 PM CDT Office Visit [facility] Gastroenterology [facility] [address] [place] [address] Bebo Benites MD [address] [place] [address] documented as of this encounter Visit Diagnoses Not on filedocumented in this encounter Additional Health Concerns Assessment Noted Time PHQ-9 Depression Total Score: 4 08/21/19 24 1:00 PM CHIEF ACCOUNTING OFFICER documented as of this encounter Care Teams Shale Planer Operator Relationship Specialty Start Date End Date Bijal Wolfe MD [address] [place] [phone] PCP - General Internal Medicine 12/14/23 documented as of this encounter
--- OUTSIDE RECORDS SUMMARY | 2024-06-08 20:18 | XMS_ITS | Encounter Summary ---
Author Organization [facility] Address [address] [place] [address] Care Team Providers Care Category Specialist Name Role Phone Bijal Wolfe MD Primary Care Provider [phone] Encounter Details Date Type Department Care Team (Late Contact Info) Description 05/04/2024 Abstract [facility] at Work [employer] [place] [address] [place] [address] Aida Wilda Social History Tobacco Use Types Packs/Day Years [...] st Contact Info) Description 06/20/2024 9:30 AM HATCH SUPERVISOR Office Visit [facility] Orthopedic Surgery at the [facility] [address] [facility] [facility] [address] [place] [address] [place] [address] [place] [address] 10/27/2024 2:45 PM CDT Office Visit [facility] Gastroenterology [facility] [address] [place] [address] Bebo Benites MD [address] [place] [address] documented as of this encounter Visit Diagnoses Not on filedocumented in this encounter Additional Health Concerns Assessment Noted Time PHQ-9 Depression Total Score: 4 08/21/19 24 1:00 PM HATCH SUPERVISOR documented as of this encounter Care Teams Category Specialist Relationship Specialty Start Date End Date Bijal Wolfe MD [address] [place] [phone] PCP - General Internal Medicine 12/14/23 documented as of this encounter
--- OUTSIDE RECORDS SUMMARY | 2024-06-08 20:18 | XMS_ITS | Encounter Summary ---
Author Organization [facility] Address [address] [place] [address] Care Team Providers Care Gearcase Assembler Name Role Phone Bijal Wolfe MD Primary Care Provider [phone] Reason for Visit * Reason Onset Date Comments Medication Refill 04/21/2024 Encounter Details Date Type Department Care Team (Late st Contact Info) Description 04/21/2024 Refill [facility] at Work [email or web address] [place] [address] [place] [address] Luba Vuong, ANP [address] [facility] [address] [place] [address] Pain in right buttock; Mild intermittent asthma without complication Social History Tobacco Use Types Packs/Day Years [...] st Contact Info) Description 06/20/2024 9:30 AM PYROTECHNIC ASSEMBLER Office Visit [facility] Orthopedic Surgery at the [facility] Medicine [address] [place] [address] [place] [address] [place] [address] 10/27/2024 2:45 PM CDT Office Visit [facility] Gastroenterology [facility] [address] [place] [address] Bebo Benites MD [address] [place] [address] documented as of this encounter Visit Diagnoses Diagnosis Pain in right buttock Mylagia and myositis, unspecified Mild intermittent asthma without complication Unspecified asthma documented in this encounter Additional Health Concerns Assessment Noted Time PHQ-9 Depression Total Score: 4 08/21/19 24 1:00 PM PYROTECHNIC ASSEMBLER documented as of this encounter Care Teams Gearcase Assembler Relationship Specialty Start Date End Date Bijal Wolfe MD [address] [place] [phone] PCP - General Internal Medicine 12/14/23 documented as of this encounter
--- OUTSIDE RECORDS SUMMARY | 2024-06-08 20:18 | XMS_ITS | Encounter Summary ---
Author Organization [facility] Address [address] [place] [address] Care Team Providers Care Marketing Strategy Lead Name Role Phone Bijal Wolfe MD Primary Care Provider [phone] Reason for Visit * Auth/Cert (Routine) Specialty Diagnoses / Procedures Referred By Rodney t Referred To Contact Perioperative Diagnoses Carpal tunnel syndrome on left LT CARPAL TUNNEL Procedures [place] NEUROPLASTY &/TRANSPOS MEDIAN NRV CARPAL TUNNE LEEFT [place] [id number] [place] [address] [facility] [address] [place] [address] Referral ID Status Reason Start Date Expiration Date Visits Re quested Visits Authorized [id number] 1 1 Encounter Details Date Type Department Care Team (Latest Contact Info) Description 06/03/2024 1:09 PM PRINT PRODUCTION ASSOCIATE - 06/03/2024 2:56 PM [facility] Hospital Encounter [facility] Medicine [facility] [address] [place] [id number] [place] [id number] [place] [address] Carpal tunnel syndrome on left Discharge Disposition: Home or Self Care Social History Tobacco Use Types Packs/Day Years [...] Comments Blood Pressure 173/103 06/03/2024 2:47 PM PRINT PRODUCTION ASSOCIATE Pulse 97 06/03/2024 2:47 PM PRINT PRODUCTION ASSOCIATE Temperature 36.4 ??C (97.5 ??F) 06/03/2024 2:47 PM CS T Respiratory Rate 16 06/03/2024 1:21 PM PRINT PRODUCTION ASSOCIATE Oxygen Saturation 98% 06/03/2024 2:47 PM PRINT PRODUCTION ASSOCIATE Inhaled Oxygen Concentration - - Weight 105.7 kg (233 lb) 06/03/2024 1:21 PM PRINT PRODUCTION ASSOCIATE Height 167.6 cm (5' 6 ) 06/03/2024 1:21 PM PRINT PRODUCTION ASSOCIATE Body Mass Index 37.61 06/03/2024 1:21 PM PRINT PRODUCTION ASSOCIATE documented in this encounter Discharge Instructions * Discharge Instructions* Paddy Mackey MD - 06/03/2024 1:[address]. Mackey Postoperative Guidelines - Follow-up Appointments Your first postoperative visit with Dr. Mackey is listed on the first page of your discharge instructions. It is typically within 10-15 days, but may be sooner if you need to start therapy earlier than that. Dressing and Wound Care A large dressing has been placed on your arm to reduce motion and control swelling. Keep your dressing clean and dry. You may remove the dressing 3 days after surgery. Once the dressing is off, your incision can get wet while showering/bathing only. Do not soak the wound (in bath water, pool, sheikh, etc.). You may leave your wound open to air, but if you like you may cover your incision covered with Band-Aids or light dressing.Keep it dry and do not apply any ointments. Wear a plastic bag over your postoperative dressing/splint whenever you take a shower or bath. Onceyou have a removable splint from hand therapy you may take it off to shower and get the surgical incisions wet. Do not submerge the wounds under water (e.g. in a pool, bath, hot tub, sheikh, etc.) until you have been seen by Dr. Mackey to evaluate the surgical incisions. Swelling is normal after surgery. Elevate your hand/arm so the surgical site is above your heart todecrease the swelling. Swelling is like water, it runs downhill, and you want to position your handso that a drop of water would run downhill from your finger tips to your heart. This is especially important for the first 72 hours after surgery. The best way to elevate your hand/arm is with your fingers pointing towards the ceiling and your hand/arm above the level of the heart You can use pillows to help prop your hand/arm up when sitting or lying down. If you are experiencing pain, be sure you are elevating your hand/arm as often as possible. Apply an ice pack over your dressing/splint for 20 minutes of every hour for the first 3 days when you are awake. This can help to reduce swelling and inflammation. Be sure the ice pack is waterproofso it does not leak on the dressing/splint. A simple ice pack can be made by adding ten cubes and asmall amount of water in a small zip-lock bag. Seal this small bag tightly. Place this small bag migueilto larger zip lock bag. Apply to the area in pain. If the dressing feels too tight in spite of elevation, loosen the outer brown LORENA wrap but do not remove the entire dressing. ACTIVITIES: Bend and straighten the parts of your hand/arm that are not included in your surgical dressing or splint. Do this at least 6 times a day, as this will help decrease swelling and speed up your recovery. This includes your fingers when exposed so that you make a full fist. If you can see a joint, you can move it. Your splint is immobilizing all joints that you cannot move, so if a joint is under your splint, you should not move it. If you watch TV, spend your commercial breaks working on moving your joints. WEIGHT-BEARING RESTRICTIONS: Your weight bearing restrictions with the operative extremity (I.e. the arm you had surgery on) are: no lifting anything heavier than 5 lbs until advised differently at your clinic follow-up. POSTOPERATIVE CARE/CONCERNS: You may experience some temporary numbness or tingling in your fingers from either the surgery, numbing medications used in surgery, or swelling. You should have very little to no bleeding on your dressing. Notify the office (see contact info at bottom of page) for any of the following: Excessive pain not relieved by rest, elevation, and pain medications Feeling that the dressing is too tight in spite of adequately elevating hand/arm Active bleeding through the dressing Drainage from the wound site or pin sites Foul odor from the dressing/wound Temperature greater that 101? F or chills Blue or excessively cold fingertips Numbness of the fingertips that does not improve in spite of adequately elevating hand/arm PAIN MEDICATION: A prescription for pain medication has been included here - please fill it at your local pharmacy if it has not been filled at the hospital Do not take pain medication or anti-inflammatories on an empty stomach. It is illegal to drive while taking narcotic pain medication. Pain is a normal part of the recovery after surgery. The pain medication provided to you will help to decrease the discomfort but will not completely eliminate the pain. Your pain should decrease over the first few days after surgery which will allow you to take less pain medicine, increase the time between doses of medication, or stop taking all pain medicine. Ibuprofen (Brand Name: Advil) 400mg three times daily with Acetaminophen (Brand Name: Tylenol) 1,000mg three times daily with food (breakfast, lunch, and dinner) is an effective pain medication regimen which has been shown to have the same pain-killing strength as other high strength opioid narcotics. If you are clear to take NSAIDS (I.e. no kidney, heart, or stomach ulcer concerns) and you are clear to take Tylenol (I.e. no liver conditions), you should consider taking this pain medication regimen around the clock for the first week post- operatively. You can take your narcotic pain medication in addition to this for break-through pain, over and above that controlled by the Ibuprofen and Tylenol. OFFICE CONTACT NUMBERS During business hours (Mon-Fri 8am-4:30pm) Dr. Mackey's Office: phone: [phone] After hours/weekend (Emergencies Only; no medication refills) [facility]: [phone] Orthopedic Hand Service Perioperative Narcotic Considerations The Orthopedic hand surgeons of [facility] manage perioperative pain as well as the pain after an acute injury. Our surgeons do not manage chronic pain (pain three months after the injury/surgery), and will refer patients seeking longer term care for their painful condition to a pain management service or their primary physician as those physicians typically establish nursing home treatment relationships with patients. There are many things that a patient can do to manage their pain after surgery or after an acute injury: Move the shoulder, elbow and all other joints that are not immobilized by the post-operative dressing as much as possible. Elevate the operated hand and wrist so that swelling can be reduced. Place ice and a few ounces of tap water in a small sealed plastic bag, and place it on the outside of the surgical dressing. Keep it there until the operated part under the ice bag starts to feel cold. This can reduce both pain and swelling. Anti-inflammatory pain medication such as Advil, Aleve, generic Ibuprofen, generic Naproxen or generic Naprosyn can all be used in addition to the narcotics prescribed by your doctor. Prescription anti-inflammatory pain medication such as Celebrex, Indocin or Toradol can be called in to your pharmacy if '[id number]' anti- inflammatory pain medication do not decrease the pain even when taken on a regular basis. These can be called in during the hours 9am to 4pm, during the wo rkweek. 'Alternative' treatments such as acupuncture, meditation and biofeedback can all be used to decrease post-operative pain. The Orthopedic hand surgeons of [facility] want you to be as comfortable as possible following your operation or your injury, and we want you to return to your level of active function as quickly as possible. Although narcotics (opioid medications) can have a role in obtaining pain relief after surgery or injury, the prolonged use of these highly addictive medications can- and do- have severe side effects. Even in patients who are not addicted, narcotics become less effective over time as the body becomes tolerant to the drug and there is evidence that prolonged use may increase the body's interpretation of pain. The 'opioid epidemic' in [place] is very real, and we as physicians are duty-bound to be as appropriate as can be in the administration of narcotics. When prescribed narcotics, you should start with a plan of how to wean off of them and where you will keep the drug to avoid any misuse by those around you. If you have any questions about our philosophy regarding the prescriptions of narcotic medications for the relief of pain following surgery orinjury, please talk to your surgeon or his/her nurse or MA. T PRODUCTION ASSOCIATE documented in this encounter Medications at Time of Discharge Medication Sig Dispensed Refills Start Date End Date acetaminophen (TYLENOL) 500 mg tablet Take 2 Tablets (1,000 mg) by mouth every 8 hours for 14 days. 84 Tablet 06/03/2024 06/17/2024 oxyCODONE (ROXICODONE) 5 mg tabletIndications:Car pal tunnel syndrome of left wrist Take 1 Tablet (5 mg) by mouth every 4 hours as needed for Pain. 5 Tablet 06/03/2024 hyoscyamine ER 0.375 mg tablet,extended release,12 hr Take 1 Tablet (0.375 mg) by mouth daily. Take this once daily in the am 30 Tablet 5 04/27/2024 escitalopram oxalate (LEXAPRO) 10 mg tablet Take 1 Tablet (10 mg) by mouth daily. 90 Tablet 04/26/2024 lisinopriL (PRINIVIL) 10 mg tablet Take 1 Tablet (10 mg) by mouth daily. 90 Tablet 04/26/2024 buPROPion HCL (Wellbutrin XL) 300 mg Extended Release 24 hour tablet Take 1 Tablet (300 mg) by mouth daily in the morning. 90 Tablet 04/26/2024 meloxicam (MOBIC) 7.5 mg tabletIndications:Derek n in right buttock Take 1 Tablet (7.5 mg) by mouth daily. 30 Tablet 04/21/2024 albuterol sulfate HFA 90 mcg/actuation aerosol inhalerIndications:Mi ld intermittent asthma without complication Take 1-2 Puffs by inhalation every 6 hours as needed for Shortness of Breath or Wheezing. 8.5 Gram 04/21/2024 tirzepatide (Mounjaro) 10 mg/0.5 mL Pen InjectorIndications:T ype 2 diabetes mellitus without complication, without long-term current use of insulin,Severe obesity (BMI 35.0-39.9) with comorbidity Inject 10 mg by subcutaneous injection every 7 days. 6 mL 1 02/15/2024 pantoprazole (PROTONIX) 40 mg Tablet, Delayed Release (E.C.) Take 1 Tablet (40 mg) by mouth daily. 90 Tablet 4 02/15/2024 metFORMIN (GLUCOPHAGE) 500 mg tabletIndications:Typ e 2 diabetes mellitus without complication, without long-term current use of insulin Take 1 Tablet (500 mg) by mouth 2 times daily with meals. 180 Tablet 12/15/2023 rosuvastatin (CRESTOR) 40 mg tablet Take 1 Tablet (40 mg) by mouth daily at bedtime. 90 Tablet 12/15/2023 Nexplanon 68 mg Implant Inject 68 mg by subcutaneous injection one time only. 01/14/2023 fluticasone propionate (FLONASE) 50 mcg/spray [place], Suspension nasal inhalerIndications:Ac sioux intractable headache, unspecified headache type Administer 2 Sprays in each nostril daily. 16 Gram 09/16/2022 cholecalciferol, vitamin D3, 1,000 unit Take by mouth. cetirizine (ZyrTEC) 10 mg tablet Take 10 mg by mouth daily. documented as of this encounter H&P Notes * Paddy Mackey MD - 06/03/2024 1:54 PM CST H&P Reviewed. The patient was examined and there are no changes to the H&P. Exam: Unchanged from last clinic note below. Respiratory: NLB CV: RRR PPP, fingers wwp w/ BCR CC: Hand/finger numbness, tingling and discomfort. HPI: Lis Phelan is a 39 y.o. female who presents for the first time with the primary complaint of numbness, tingling, and to a lesser degree, vague radiating pain involving the left thumb, index,and long fingers. She rates this pain 2/10. The numbness is not constant. There is not numbness or tingling in the small finger. She does note nocturnal awakening. She does note worsening symptoms with activity. She does not report any radiating electrical type pain or sensations coming from the proximal arm or neck. She first noted these symptoms several months ago, which had an insidious onset. She has had a reasonable course of nighttime splinting, and has not received a cortisone injection in the past for these symptoms. They feel as if non-operative treatment has failed to alleviate their symptoms. Notably she continues to do very well from the standpoint of right open carpal tunnel release. Symptoms remain completely resolved. Past Medical, Surgical, Social, and Family History, as well as Medications and Allergies can be found within the electronic medical record and were reviewed as part of this encounter. ROS: A complete ROS was reviewed and found to be negative with the exception of the findings noted in this encounter. Physical Exam: Gen: alert and oriented x3. No acute distress. Psych: affect appropriate, answers questions with age appropriate rationality, normal mood. HEENT: EOEMI, sclera anicteric. Neck: normal ROM, supple. CV: normal rate, distal pulses intact in the bilateral upper extremities. Respirations: normal rate, no distress Skin: warm, dry, no rashes or breaks Neuro: Sensation to light touch is Normal in the median nerve distribution compared to the small finger. There is a negative Spurling's. MSK/Upper extremity: Examination of the left hand(s) shows normal posture. There is full range of motion at the wrist in both flexion/extension as well as pronation/supination, and at the MCP, PIP, and DIP joints of all digits. Capillary refill is brisk in all digits. There is no thenar atrophy present, and there is Normal thumb abduction strength. Phalen's test is positive. There is a positive Tinel's over the median nerve at the wrist. Carpal compression test ispositive. Sensation to light touch is normal in the small finger. There is normal sensation in the dorsal sensory branch of the ulnar nerve on the hand. There is no intrisic atrophy present, and there is Normal instrinsic strength. Elbow flexion test is negative. There is a negative Tinel's over the ulnar nerve at the elbow. Tinel's over Guyon's canal is negative. There is not subluxation of the ulnar nerve at the elbow on exam today. Imaging: No new films were obtained in the office today. EMG: Electrodiagnostics have not been obtained.. A/P: Lis Phelan is a 39 y.o. female with and history and physical exam consistent with left carpal tunnel syndrome. 1. We discussed the nature of the suspected diagnosis, further workup, and treatment options, including bracing, cortisone injection, and surgery. At this time she has attempted and failed a reasonable course of nonsurgical management in the form of time, activity modifications, and nocturnal bracing. She wishes to consider open carpal tunnel release which I think is reasonable at this time. 2. Given the patient's presenting history, prior testing, and symptoms, I did not recommend formal evaluation of suspected peripheral nerve compression with an electodiagnostic study at this point. 3. Risks of surgery were discussed with the patient, and any questions that came up were answered to the best of my ability. Specifically, the risks of persistent or worsened symptoms, CRPS, palm pain, surgical site infection, wound healing complications, nerve and/or vessel injury, catastrophic outcomes, and potential further surgery were discussed. After hearing these risks and potential benefits, the patient elected to proceed with surgery as described: Left open carpal tunnel release The first postoperative follow-up will be 10-14 days post-op. T PRODUCTION ASSOCIATE documented in this encounter OR Notes * Abelardo-OP - Debra Blanco RN - 06/03/2024 2:48 PM CST Knowledge deficit related to post-discharge care Interventions: Assess learning needs and willingness to learn; give clear, concise explanations of the care required post-discharge; address patient/family questions and concerns; provide teaching asindicated Expected Outcome: Patient and/or family/significant other demonstrate(s) behaviors required for performance of activities enhancing recovery post-discharge Outcome Met: verbalized understanding of discharge instructions T PRODUCTION ASSOCIATE * Operative Report - Paddy Mackey MD - 06/03/2024 2:45 PM CST Pre-op Diagnosis: left carpal tunnel syndrome Post-op Diagnosis: left carpal tunnel syndrome Procedure: left open carpal tunnel release (CPT 89518) Surgeon: Paddy Mackey MD Laser Engineer: n/a Anesthesia: Local Tourniquet Time: None EBL: None Complications: none Specimens: none Indication for procedure: Lis Phelan is a 39 y.o. female with carpal tunnel syndrome who has continued to have symptoms that did not respond adequately to non-operative management. We discussed the risks of the above mentioned procedure, including but not limited to: pillar pain, infection, wound complications, persistent or recurrent numbness and tingling, weakness of the hand, need for revision surgery, neurovascular injury, persistent or worsened pain, and other complications. Despite these risks the patient elected to proceed with surgical treatment as outlined above. Signed consent is documented in the patient's chart. DESCRIPTION OF OPERATION: The patient was identified in the preoperative holding area by myself, and the operative extremity was marked. We again discussed the planned surgical procedure, and the risks, benefits, and alternatives of surgery were again discussed, and informed consent was confirmed. We then sterilely injected 7 ml of a 1:1 mix of plain 1% lidocaine and 0.25% Marcaine with epinephrine into the skin and subcutaneous tissue underlying the planned incision for the left hands The patient was brought back to the operating room and an arm board was attached to the OR table. Adetailed time-out was performed, and antibiotics were not given due to the nature of the case. A well padded forearm tourniquet was placed. We sterilely prepped and draped the left upper extremity in the usual sterile fashion. A 2 to 3 cm incision was made in the palm starting at the wrist crease, and extending distally in line with the radial border of the fourth ray. Sharp dissection was carried down through skin and subcutaneous tissue down to the level of the palmar fascia using a 15 blade scalpel. Self-retaining retractors were placed, and the palmar fascia was sharply divided using a 15 blade scalpel. At this point the ulnar neurovascular bundle was gently retracted ulnarly, and the transverse carpal ligament was directly visualized. After palpating the hook of the hamate a 15 blade scalpel was used to start our division of the transverse carpal ligament just radial to the hook of the hamate ensuring that the division was carried out on the ulnar aspect of the transverse carpal ligament. We then used tenotomy scissors to complete division of the transverse carpal ligament distally to the level of the sentinel fat pad, and proximally about 2 cm into the volar forearm fascia both under direct visualization. Following this the carpal tunnel was noted to be widely decompressed. At this point attention was turned to wound irrigation and closure. The wound was copiously irrigated using normal saline. The incision was then closed using 4-0 monocryl in a buried interrupted fashion. Following this the wound was dressed with dermabond, steri strips, a single 4 x 4, and 2 inch Coban. The fingers remainedwarm and well-perfused for the duration of the procedure. The patient tolerated the procedure well.At the conclusion of the case all sponge and needle counts were correct and accounted for. I was present and scrubbed for the duration of the procedure. T PRODUCTION ASSOCIATE * Abelardo-OP - Perri Burgos RN - 06/03/2024 2:22 PM CST 0.9% Nacl used for irrigation 500ml used PRN T PRODUCTION ASSOCIATE * Abelardo-OP - Mariely Brooks RN - 06/02/2024 3:10 PM CST Pre-Call Completed- left voicemail with following information: Arrival time of 1:00PM given. T PRODUCTION ASSOCIATE documented in this encounter Miscellaneous Notes * Care Plan - Mayank Pete RN - 06/03/2024 1:30 PM CST Knowledge deficit related to procedure/environment Interventions: Assess learning needs and willingness to learn; give clear, concise explanations of the environment and sequence of events surrounding the periop experience; address patient/family questions and concerns; provide teaching as indicated, provide teaching related to postoperative pain assessment utilizing pain scales Expected Outcome: Patient verbalizes or demonstrates awareness/understanding of surgery and perioperative experience Outcome Met: understands abelardo-op Potential for anxiety related to surgical intervention Interventions: convey caring/supportive attitude; offer emotional support as needed; provide comfort measures (warm blanket, pillow, quiet environment); allow patient opportunity to verbalize concerns/fears/questions; explore coping behaviors; allow age-specific/special needs family support Expected Outcome: Patient will demonstrate decreased anxiety or adaptive coping strategies Outcome Met: patient calm and informed T PRODUCTION ASSOCIATE documented in this encounter Plan of Treatment Upcoming Encounters Date Type Department Care Team (Late st Contact Info) Description 06/20/2024 9:30 AM PRINT PRODUCTION ASSOCIATE Office Visit [facility] Orthopedic Surgery at the [facility] Medicine [address] [facility] [address] [place] [id number] [place] [id number] [place] [address] 10/27/2024 2:45 PM CDT Office Visit [facility] G[facility]enter[facility] [address] [place] [address] Bebo Benites MD [address] [facility] [address] [place] [address] documented as of this encounter Procedures Procedure Name Priority Date/Time Associated Diagnosis Comments [place] NEUROPLASTY &/TRANSPOS MEDIAN NRV CARPAL TUNNE 06/03/2024 2:45 PM PRINT PRODUCTION ASSOCIATE Carpal tunnel syndrome on left documented in this encounter Visit Diagnoses Diagnosis Carpal tunnel syndrome of left wrist- Primary Carpal tunnel syndrome documented in this encounter Administered Medications Inactive Administered Medications - up to 3 most recent administrations Medication Order MAR Action Action Date Dose Rate Site BUPivacaine-EPINEPHrine (PF) (SENSORCAINE MPF WITH EPI) 0.25 %-1:200,000 injection 50 mg 50 mg (20 mL), Infiltration, PRE-PROCEDURE ONCE, 1 dose, Starting on Thu06/03/24 at 1328, Until Thu06/03/24 at 1656, Routine, Pre-op lidocaine PF 1% (XYLOCAINE MPF) injection 20 mL 20 mL, Infiltration, PRE-PROCEDURE ONCE, 1 dose, Starting on Thu06/03/24 at 1328, Until Thu06/03/24 at 1656, Routine, Pre-Procedure documented in this encounter Active and Recently Administered Medications Times are shown in PRINT PRODUCTION ASSOCIATE. Scheduled Medication Order 06/01/2024 06/02/2024 06/03/2024 BUPivacaine-EPINEPHrine (PF) (SENSORCAINE MPF WITH EPI) 0.25 %-1:200,000 injection 50 mg 50 mg (20 mL), Infiltration, PRE-PROCEDURE ONCE, 1 dose, Starting on Thu06/03/24 at 1328, Until Thu06/03/24 at 1656, Routine, Pre-op lidocaine PF 1% (XYLOCAINE MPF) injection 20 mL 20 mL, Infiltration, PRE-PROCEDURE ONCE, 1 dose, Starting on Thu06/03/24 at 1328, Until Thu06/03/24 at 1656, Routine, Pre-Procedure documented in this encounter Additional Health Concerns Assessment Noted Time PHQ-9 Depression Total Score: 4 08/21/19 24 1:00 PM PRINT PRODUCTION ASSOCIATE documented as of this encounter Care Teams Marketing Strategy Lead Relationship Specialty Start Date End Date Bijal Wolfe MD [address] [place] [id number] PCP - General Internal Medicine 12/14/23 documented as of this encounter
--- OUTSIDE RECORDS SUMMARY | 2024-06-08 20:18 | XMS_ITS | Encounter Summary ---
Author Organization [facility] Address [address] [place] [address] Care Team Providers Care Patient Attendant Name Role Phone Bijal Wolfe MD Primary Care Provider [phone] Reason for Visit * Reason Comments Establish Care LT Hand Encounter Details Date Type Department Care Team (Late st Contact Info) Description 04/20/2024 9:00 AM CDT Office Visit [facility] Orthopedic Surgery - [place] [id number] [place] [address] [place] [address] [place] [id number] [place] [address] Drive [address] [place] [address] Left carpal tunnel syndrome (Primary Dx) Social History Tobacco Use Types Packs/Day Years [...] Sign Reading Time Taken Comments Blood Pressure 130/80 04/20/2024 9:41 AM CDT Pulse - - Temperature - - Respiratory Rate - - Oxygen Saturation - - Inhaled Oxygen Concentration - - Weight 97.1 kg (214 lb) 04/20/2024 9:41 AM CDT Height 167.6 cm (5' 6 ) 04/20/2024 9:41 AM CDT Body Mass Index 34.54 04/20/2024 9:41 AM CDT documented in this encounter Progress Notes * Paddy Mackey MD - 04/20/2024 6:05 PM CDT CC: Hand/finger numbness, tingling and discomfort. HPI: [...] postoperative follow-up will be 10-14 days post-op. documented in this encounter Plan of Treatment Upcoming Encounters Date Type Department Care Team (Late st Contact Info) Description 06/20/2024 9:30 AM STAINED GLASS INSTALLER Office Visit [facility] Orthopedic Surgery at the [facility] [address] [facility] [address] [place] [address] [place] [address] [place] [address] 10/27/2024 2:45 PM CDT Office Visit [facility] Gastroenterology [facility] [address] [facility] [address] [place] [address] Bebo Benites MD [address] [facility] [address] [place] [address] documented as of this encounter Visit Diagnoses Diagnosis Left carpal tunnel syndrome- Primary Carpal tunnel syndrome documented in this encounter Additional Health Concerns Assessment Noted Time PHQ-9 Depression Total Score: 4 08/21/19 24 1:00 PM STAINED GLASS INSTALLER documented as of this encounter Care Teams Patient Attendant Relationship Specialty Start Date End Date Bijal Wolfe MD [address] [place] [phone] PCP - General Internal Medicine 12/14/23 documented as of this encounter
--- OUTSIDE RECORDS SUMMARY | 2024-06-08 20:18 | XMS_ITS | Encounter Summary ---
Author Organization [facility] Address [address] [place] [address] Care Team Providers Care Transmitter Engineer In Charge Name Role Phone Bijal Wolfe MD Primary Care Provider [phone] Reason for Visit * Auth/Cert (Routine) Specialty Diagnoses / Procedures Referred By Rodney t Referred To Contact Perioperative Diagnoses Carpal tunnel syndrome on left LT CARPAL TUNNEL Procedures [place] NEUROPLASTY &/TRANSPOS MEDIAN NRV CARPAL TUNNE LEEFT [place] [address] [place] [address] [facility] [address] [place] [address] Referral ID Status Reason Start Date Expiration Date Visits Re quested Visits Authorized [id number] 1 1 Encounter Details Date Type Department Care Team (Late st Contact Info) Description 06/03/2024 2:45 PM HARDWARE INSTALLATION COORDINATOR - 06/03/2024 3:22 PM HARDWARE INSTALLATION COORDINATOR Surgery [facility] [address] [place] [address] [place] [address] [place] [address] LEEFT CARPAL TUNNEL RELEASE Surgery Details Date/Time Status Location OR Service Patient Class Case Class Case Type Trauma Case? 06/03/2024 2:45 PM Posted [facility] 10 Orthopedics Surgical OP/Extended Care Elective No Panel 1 Procedure LRB Anes Op Region Wound Class Comments LEEFT CARPAL TUNNEL RELEASE Left Local Wrist Cl aaron-I Surgeon Surgeon Role Service Panel Paddy Mackey MD Primary Orthopedics 1 documented in this encounter Social History Tobacco Use Types Packs/Day Years [...] Comments Blood Pressure 173/103 06/03/2024 2:47 PM HARDWARE INSTALLATION COORDINATOR Pulse 97 06/03/2024 2:47 PM HARDWARE INSTALLATION COORDINATOR Temperature 36.4 ??C (97.5 ??F) 06/03/2024 2:47 PM CS T Respiratory Rate 16 06/03/2024 1:21 PM HARDWARE INSTALLATION COORDINATOR Oxygen Saturation 98% 06/03/2024 2:47 PM HARDWARE INSTALLATION COORDINATOR Inhaled Oxygen Concentration - - Weight 105.7 kg (233 lb) 06/03/2024 1:21 PM HARDWARE INSTALLATION COORDINATOR Height 167.6 cm (5' 6 ) 06/03/2024 1:21 PM HARDWARE INSTALLATION COORDINATOR Body Mass Index 37.61 06/03/2024 1:21 PM HARDWARE INSTALLATION COORDINATOR documented in this encounter Discharge Instructions * Discharge Instructions* Paddy Mackey MD - 06/03/2024 1:55 PM HARDWARE INSTALLATION COORDINATOR Dr. Mackey Postoperative Guidelines - Follow-up Appointments [...] small bag tightly. Place this small bag miguelito larger zip lock bag. Apply to the [...] hours (Mon-Fri 8am-4:30pm) Dr. Mackey's Office: phone: [phone] After hours/weekend (Emergencies Only; no medication refills) [facility] Medical Exchange: [phone] Orthopedic Hand Service Perioperative Narcotic Considerations The Orthopedic hand surgeons of [facility] manage perioperative pain as well as the pain after an acute injury. Our surgeons do not manage chronic pain (pain three months after the injury/surgery), and will refer patients seeking longer term care for their painful condition to a pain management service or their primary physician as those physicians typically establish intermodal dispatcher treatment relationships with patients. There are many [...] be called in to your pharmacy if 'ihdi-uso-hcrwrsm' anti- inflammatory pain medication do not decrease the pain even when taken on a regular basis. These can be called in during the hours 9am to 4pm, during the wo rkweek. 'Alternative' treatments such as acupuncture, meditation and biofeedback can all be used to decrease post-operative pain. The Orthopedic hand surgeons of [facility] want you to be as comfortable as [...] interpretation of pain. The 'opioid epidemic' in [place] is very real, and we as physicians [...] your surgeon or his/her nurse or MA. WARE INSTALLATION COORDINATOR documented in this encounter Medications at Time [...] only. 01/14/2023 fluticasone propionate (FLONASE) 50 mcg/spray [place], Suspension nasal inhalerIndications:Ac nikkie intractable headache, unspecified headache type Administer 2 [...] postoperative follow-up will be 10-14 days post-op. WARE INSTALLATION COORDINATOR documented in this encounter OR Notes * [...] Outcome Met: verbalized understanding of discharge instructions WARE INSTALLATION COORDINATOR * Operative Report - Paddy Mackey MD - 06/03/2024 2:45 PM CST Pre-op Diagnosis: left carpal tunnel syndrome Post-op Diagnosis: left carpal tunnel syndrome Procedure: left open carpal tunnel release (CPT 52386) Surgeon: Paddy Mackey MD Flare Man: n/a Anesthesia: Local Tourniquet Time: None EBL: [...] a 15 blade scalpel was used to startour division of the transverse carpal ligament just [...] 4, and 2 inch Coban. The fingers remained warm and well- perfused for the duration of the procedure. The patient tolerated the procedure well. At the conclusion of the case all sponge and needle counts were correct and accounted for. I was present and scrubbed for the duration of the procedure. WARE INSTALLATION COORDINATOR * Abelardo-OP - Perri Burgos RN - 06/03/2024 2:22 PM CST 0.9% Nacl used for irrigation 500ml used PRN WARE INSTALLATION COORDINATOR * Abelardo-OP - Mariely Brooks RN - 06/02/2024 3:10 PM CST Pre-Call Completed- left voicemail with following information: Arrival time of 1:00PM given. WARE INSTALLATION COORDINATOR documented in this encounter Miscellaneous Notes * [...] strategies Outcome Met: patient calm and informed WARE INSTALLATION COORDINATOR documented in this encounter Plan of Treatment Upcoming Encounters Date Type Department Care Team (Late st Contact Info) Description 06/20/2024 9:30 AM HARDWARE INSTALLATION COORDINATOR Office Visit [facility] Orthopedic Surgery at the [facility] [address] [facility] [address] [place] [address] [place] [address] [place] [address] 10/27/2024 2:45 PM CDT Office Visit [facility] Gastroenterology [facility] [address] [address] [place] [address] Bebo Benites MD [address] [facility] [address] [place] [address] documented as of this encounter Procedures Procedure Name Priority Date/Time Associated Diagnosis Comments [place] NEUROPLASTY &/TRANSPOS MEDIAN NRV CARPAL TUNNE 06/03/2024 2:45 PM HARDWARE INSTALLATION COORDINATOR Carpal tunnel syndrome on left documented in this encounter Visit Diagnoses Diagnosis Carpal tunnel syndrome of left wrist- Primary Carpal tunnel syndrome Carpal tunnel syndrome on left Carpal tunnel syndrome documented in this encounter [...] Recently Administered Medications Times are shown in HARDWARE INSTALLATION COORDINATOR. Scheduled Medication Order 06/01/2024 06/02/2024 06/03/2024 BUPivacaine-EPINEPHrine [...] Total Score: 4 08/21/19 24 1:00 PM HARDWARE INSTALLATION COORDINATOR documented as of this encounter Care Teams Transmitter Engineer In Charge Relationship Specialty Start Date End Date Bijal Wolfe MD [address] [place] [phone] PCP - General Internal Medicine 12/14/23 documented as of this encounter
--- OUTSIDE RECORDS SUMMARY | 2024-06-08 20:18 | XMS_ITS | Encounter Summary ---
Author Organization [facility] Address [address] [place] [address] Care Team Providers Care Traverse Rod Assembler Name Role Phone Bijal Wolfe MD Primary Care Provider [phone] Encounter Details Date Type Department Care Team (Latest Contact Info) Description 05/25/2024 Prep for Surgery [facility] Orthopedic Surgery at the [address] [place] [address] Heriberto Leal, PCT Pre-op testing (Primary Dx) Social History Tobacco Use Types [...] st Contact Info) Description 06/20/2024 9:30 AM OCEAN EXPORT AGENT Office Visit [facility] Orthopedic Surgery at the [address] [place] [address] [place] [address] [place] [address] 10/27/2024 2:45 PM CDT Office Visit [facility] Gastroenterology [facility] [address] [facility] [address] [place] [address] Bebo Benites MD [address] [facility] [address] [place] [address] documented as of this encounter Visit Diagnoses Diagnosis Pre-op testing- Primary Preoperative examination, unspecified documented in this encounter Additional Health Concerns Assessment Noted Time PHQ-9 Depression Total Score: 4 08/21/19 24 1:00 PM OCEAN EXPORT AGENT documented as of this encounter Care Teams Traverse Rod Assembler Relationship Specialty Start Date End Date Bijal Wolfe MD [address] [place] [phone] PCP - General Internal Medicine 12/14/23 documented as of this encounter
--- OUTSIDE RECORDS SUMMARY | 2024-06-08 20:18 | XMS_ITS | Encounter Summary ---
Author Organization [facility] Address [address] [place] [address] Care Team Providers Care Vamp Creaser Name Role Phone Bijal Wolfe MD Primary Care Provider [phone] Encounter Details Date Type Department Care Team (Late st Contact Info) Description 04/20/2024 Chart Note [facility] Orthopedic Surgery at the [facility] [address] [facility] [address] [place] [address] [place] [address] [place] [address] Social History Tobacco Use Types [...] as of this encounter Progress Notes * Heriberto Leal PCT - 06/02/2024 12:22 PM CST spoke with pt to confirm surgery on 06/03/24 at [facility] PETROLEUM OPERATOR * Carie Hudson - 05/17/2024 11:50 AM CST Called pt and r/s her surgery to 06/03/2024 and updated her post op appt. OR PETROLEUM OPERATOR * aPrul Vyas - 04/21/2024 2:16 PM CDT Surgery Location & Pending Date: [facility] 05.24.2024 Medical Clearance Sent: not requested per surgeon Cardiac Clearance Sent: not requested per surgeon Pre op labs, EKG, xray: n/a PACE appt made: N/A CPT: 15683 Surgery Packet Given: Carson Comments: * Jose Perez ATC - 04/21/2024 1:32 PM CDT Patient called in and was asking for Dr. Mackey's notched blade loader, she was seen yesterday for carpal tunnel and is needing to be scheduled for a carpal tunnel release. * Paddy Mackey MD - 04/20/2024 10:07 AM CDT Pre-Op Scheduling Form Lis Phelan Admitting Physician: Padyd Mackey MD [x] Outpatient [] 23 Hour Observation [] Inpatient Location: [] [facility] OR [x] [facility] or [address] [place] [address] [] [facility] OR Is a welder first class needed: [x] Yes [] No Anesthesia Request: [] General [] Block [] IV Regional [] MAC / Local [x] Local [] Admitting Diagnosis: left Carpal Tunnel Syndrome Surgical Procedure(s) for Consent (I.e. consent should read the following): left Open Carpal TunnelRelease CPT Codes for Surgical Procedures: Neuroplasty and/or transposition; median nerve at carpal tunnel (80700) SPECIAL EQUIPMENT NEEDS or IMPLANTS: No antibiotics, supine, 10 cc of one-to-one mixture 1% lidocaine and 0.25% Marcaine with epinephrine, regular or table, hand table, hand tray, 4-0 Monocryl, Dermabond, 1/2 steristrips, 4 x 4, 2 inch Coban (also needs be entered into the case request comment sections) Requested Pre Operative Tests [] EKG [] Chest X-Ray [] UA [] CBC [] CMP [] Type / Cross Procedure Duration (minute): 15 Minutes Follow Up Appointment: 2 weeks Medical Clearance: [] PCP [] Cardiac [] [facility] documented in this encounter Plan of Treatment Upcoming Encounters Date Type Department Care Team (Late st Contact Info) Description 06/20/2024 9:30 AM GAS OR PETROLEUM OPERATOR Office Visit [facility] Orthopedic Surgery at the [facility] [address] [facility] [address] [place] [address] [place] [address] [place] [address] 10/27/2024 2:45 PM CDT Office Visit [facility] Gastroenterology [facility] [address] [facility] [address] [place] [address] Bebo Benites MD [address] [facility] [address] [place] [address] documented as of this encounter Visit Diagnoses Not on filedocumented in this encounter Additional Health Concerns Assessment Noted Time PHQ-9 Depression Total Score: 4 08/21/19 24 1:00 PM GAS OR PETROLEUM OPERATOR documented as of this encounter Care Teams Vamp Creaser Relationship Specialty Start Date End Date Bijal Wolfe MD [address] [place] [phone] PCP - General Internal Medicine 12/14/23 documented as of this encounter
--- OUTSIDE RECORDS SUMMARY | 2024-06-08 20:18 | XMS_ITS | Encounter Summary ---
Author Organization [facility] Address [address] [place] [address] Care Team Providers Care Mobile Crane Operator Name Role Phone Bijal Wolfe MD Primary Care Provider [phone] Reason for Visit * Reason Comments Diarrhea Encounter Details Date Type Department Care Team (Latest Contact Info) Description 04/27/2024 1:00 PM RACEBOOK WRITER Office Visit [facility] [address] [place] [address] Cheyenne Kendall PA-C [address] [place] [address] Chronic diarrhea (Primary Dx); Bilateral lower abdominal pain Social History Tobacco Use Types Packs/Day Years [...] Sign Reading Time Taken Comments Blood Pressure 146/92 04/27/2024 1:05 PM RACEBOOK WRITER Pulse 96 04/27/2024 1:05 PM RACEBOOK WRITER Temperature - - Respiratory Rate - - Oxygen Saturation - - Inhaled Oxygen Concentration - - Weight 100.8 kg (222 lb 3.2 oz) 04/27/2024 1:05 PM RACEBOOK WRITER Height 167.6 cm (5' 6 ) 04/27/2024 1:05 PM RACEBOOK WRITER Body Mass Index 35.86 04/27/2024 1:05 PM RACEBOOK WRITER documented in this encounter Progress Notes * Cheyenne Kendall PA-C - 04/27/2024 1:00 PM CST [facility] Outpatient Office Visit CSN: [id number] Date of Visit: 04/26/2024 Date of : 1985 PCP: Bijal Wolfe MD GI Doc: [facility] Hospital Admit: N/A Last OV: 2021 CC: Abdominal pain gas and bloating HPI: Lis is a 39 year old female with past medical history of arthritis, depression, DM, hypertension, hyperlipidemia, h/o gastroschisis, s/p CCK and eosinophilic esophagitis. Pertinent history: -GI OV 10/2021: Establishing care for generalized abdominal pain x 2 years. Frequent bowel movements8-10 times per day with urgency liquid to semiliquid. Tried elimination of dairy, carbonation, caffeine artificial sweeteners without change. Tried fiber without change. S/p CCK 2019. Diagnosed with EOE via EGD 2018 taking pantoprazole 40 mg daily dysphagia mostly better. Recommended trial of Bentyl 10 mg 3 times daily. Suspicion for IBS avoid triggers. Schedule EGD and colonoscopy. Continue pantoprazole 40 mg. -EGD 01/2022: Longitudinal furrows middle third of the esophagus nonerosive gastritis. Esophageal biopsies without evidence of active EOE. Gastric biopsies without H. pylori. Duodenal biopsies withoutceliac disease. Recommended to continue current acid suppression -Colonoscopy 01/2022: Normal TI, few diverticuli in the entire colon 1 polyp (tubular adenoma) removed random biopsies taken. Colonic biopsies unremarkable. Recommended repeat for screening purposes in 5 years They have not contacted the office in the interim Recently prescribed meloxicam 04/21 for muscular pain Today, patient reports here for diarrhea and abdominal pain chronic since she was a child History of gastroschisis requiring 3 surgeries under the age of 19 She had a complicated cholecystectomy required open abdomen given her significant adhesions ultimately had small bowel injury requiring resection here at [facility] in 2019 Her diarrhea did worsen post CCK but has been ongoing prior to this She has been on FMLA for 2 years for her GI symptoms. 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 difficile Abdominal pain: - started as a child - upper abdominal pain - described as dull ache - radiates: no - there more days than night - can be associated with eating, without clear trigger - tried elimination of: high fiber - associated with stooling, post prandial diarrhea - reports intermittent associated nausea, vomiting. More nausea than vomiting, vomiting is rare - medications trialed: never tried dicyclomine Bowel pattern: - they stool every day 8-10 times per day - stools described as type 7, sometimes 6, can have mucus - tried metamucil in past without change as - deny any blood in stool, blood with wiping or melena - nocturnal stooling: no - they deny known sick contacts, recent travel, drinking untreated water, exposure to exotic animals - amoxicillin few months ago for UTI Reflux/dyspepsia: - they deny heartburn, regurgitation, increased belching, waterbrash/regurgitation, nausea, vomiting, dysphagia, early satiety, loss of appetite or weight loss - well controlled with with daily PPI - medications trialed: pantoprazole 40mg once daily - NSAIDs: Meloxicam 7.5 once daily for couple months for carpal tunnel- upcoming surgery plans to stop after, no other NSAIDs - Nicotine: NA - ETOH: NA - Beverages: water - Marijuana: NO - Diet/eating before bed: - H/o H. Pylori: Bloating: YES bloating - tried food elimination of: high residue diet in past without change - Probiotic: tried in past Align in past, took for 1 year without change - they deny use of carbonated beverages, artifical sweeteners, drinking through a straw or chewing gum - H/o SIBO: not checked Family history notable for: NA from GI standpoint ROS General: No F/C/NS, sleep disturbances Derm: pruritus, lumps/bumps Neuro: No headaches, paresthesias, syncope, dizziness, lightheadedness, mental status changes Eyes: No pain or visual disturbances ENT: No sore throat, hoarse voice, epistaxis Pulm: No cough, SOB/VIVAS, PND, hemoptysis Cardiac: No CP or palpitations GI: See HPI M/S: No myalgias/arthralgias Heme: No anemia, bleeding disorder, easy bruising, bleeding gums : No hematuria, irritative voiding symptoms Onc: No prior CA Allergies Allergen Reactions Tramadol Hives Varenicline Anaphylaxis Metronidazole Nausea and Vomiting Other reaction(s): Vomiting Meperidine Swelling Current Outpatient Medications Medication Sig Dispense Refill escitalopram oxalate (LEXAPRO) 10 mg tablet Take 1 Tablet (10 mg) by mouth daily. 90 Tablet 0 lisinopriL (PRINIVIL) 10 mg tablet Take 1 Tablet (10 mg) by mouth daily. 90 Tablet 0 buPROPion HCL (Wellbutrin XL) 300 mg Extended Release 24 hour tablet Take 1 Tablet (300 mg) by mouth daily in the morning. 90 Tablet 0 meloxicam (MOBIC) 7.5 mg tablet Take 1 Tablet (7.5 mg) by mouth daily. 30 Tablet 0 albuterol sulfate HFA 90 mcg/actuation aerosol inhaler Take 1-2 Puffs by inhalation every 6 hours as needed for Shortness of Breath or Wheezing. 8.5 Gram 0 tirzepatide (Mounjaro) 10 mg/0.5 mL Pen Injector Inject 10 mg by subcutaneous injection every 7 days. 6 mL 1 pantoprazole (PROTONIX) 40 mg Tablet, Delayed Release (E.C.) Take 1 Tablet (40 mg) by mouth daily. 90 Tablet 4 metFORMIN (GLUCOPHAGE) 500 mg tablet Take 1 Tablet (500 mg) by mouth 2 times daily with meals. 180 Tablet 0 rosuvastatin (CRESTOR) 40 mg tablet Take 1 Tablet (40 mg) by mouth daily at bedtime. 90 Tablet 0 Nexplanon 68 mg Implant Inject 68 mg by subcutaneous injection one time only. fluticasone propionate (FLONASE) 50 mcg/spray [place], Suspension nasal inhaler Administer 2 Sprays in each nostril daily. 16 Gram 0 cholecalciferol, vitamin D3, 1,000 unit Take by mouth. cetirizine (ZyrTEC) 10 mg tablet Take 10 mg by mouth daily. No current facility-administered medications for this visit. Past Medical History: Diagnosis Date Arthritis Asthma well controlled Biliary dyskinesia Change in bowel habit Depression Diabetes mellitus Difficult intravenous access VERY hard IV stick use requests ultrasound Eosinophilic esophagitis Eosinophilic esophagitis GERD (gastroesophageal reflux disease) Headache History of shingles HTN (hypertension), benign 12/29/2020 Hyperlipidemia Pyelonephritis Past Surgical History: Procedure Laterality Date HX CARPAL TUNNEL RELEASE Right 06/11/2021 RIGHT CARPAL TUNNEL RELEASE performed by Paddy Mackey MD at [facility] CC OR HX GASTROSCHISIS CLOSURE HX HAND SURGERY Right 4th digit HX RHINOPLASTY Bilateral 12/20/2020 HX SURGICAL OTHER 04/2004 adhesion removed HX TURBINATE RESECTION Right 12/20/2020 MO CHOLECYSTECTOMY N/A 11/03/2019 OPEN CHOLECYSTECTOMY performed by Gabbie Wheeler MD at [facility] OR [facility] MO COLONOSCOPY FLX DX W/COLLJ SPEC WHEN PFRMD N/A 02/10/2022 checkout COLONOSCOPY performed by Bebo Benites MD at [facility] GI LAB MO ESOPHAGOGASTRODUODENOSCOPY TRANSORAL DIAGNOSTIC N/A 05/17/2019 ESOPHAGOGASTRODUODENOSCOPY performed by Jena Cerda MD at [facility] GI LAB MO ESOPHAGOGASTRODUODENOSCOPY TRANSORAL DIAGNOSTIC N/A 02/10/2022 checkout ESOPHAGOGASTRODUODENOSCOPY performed by Bebo Benites MD at [facility] GI LAB Family History Problem Relation Name Age of Onset Lung Cancer Father Stroke Father Hypertension Mother High Cholesterol Mother Unknown Brother Unknown Maternal Grandmother Unknown Maternal Grandfather Diabetes Paternal Grandmother Kidney Disease Paternal Grandfather No Known Problems Daughter No Known Problems Son Colon Cancer Neg Hx Celiac Disease Neg Hx Inflammatory Bowel Disease Neg Hx Crohn's Disease Neg Hx Social History Tobacco Use Smoking status: Former Current packs/day: 0.00 Average packs/day: 1 pack/day for 10.0 years (10.0 ttl pk-yrs) Types: Cigarettes Start date: 03/02/2006 Quit date: 03/02/2016 Years since quittin.1 Smokeless tobacco: Never Substance Use Topics Alcohol use: No TOBACCO COUNSELING She is not a tobacco/nicotine user. PE: Vitals: 04/27/24 1305 BP: (!) 146/92 Pulse: 96 Weight: 100.8 kg (222 lb 3.2 oz) Height: 5' 6 (1.676 m) General: Well developed. Normal body habitus. No immediate distress. Non toxic appearing. Hearing grossly normal. Skin: No obvious rashes or visible lesions, WTT Affect: Pleasant. Appropriate. Alertness: Alert and oriented. Eyes: No jaundice. No injection. Mouth: Good dentition. No oral lesions. Mucous membranes moist Neck: Supple, no thyromegaly Lungs: Normal respiratory effort. Clear to auscultation. No adventitious sounds. Cardiovascular: S1S2. Regular. No m/r/c/g Abdomen: Protuberant but non distended. Several abdominal scars are noted. +BS, soft, NTTP, No HSM,palpable masses or hernias Extremities: No clubbing, cyanosis or edema RECORD REVIEW: I personally reviewed the following records interpretation per below. 1) OFFICE VISITS: Per HPI 2) LABS: Lab Results Component Value Date WBC 7.5 03/07/2024 HGB 14.4 03/07/2024 HGB 13.3 03/25/2023 HCT 45.3 (H) 03/07/2024 HCT 40.0 03/25/2023 PLT 295 03/07/2024 MCV 98.5 03/07/2024 MCV 92.8 03/25/2023 Lab Results Component Value Date NA 136 03/07/2024 K 4.0 03/07/2024 CL 102 03/07/2024 CO2 24 03/07/2024 CA 9.5 03/07/2024 BUN 12 03/07/2024 CREAT 0.64 03/07/2024 GLUCOSE 82 03/07/2024 TOTALPROTEIN 7.5 03/07/2024 TOTALPROTEIN 7.9 03/25/2023 ALBUMIN 4.7 03/07/2024 ALBUMIN 4.7 03/25/2023 BILITOTAL 0.4 03/07/2024 ALKPHOS 68 03/07/2024 ALKPHOS 81 03/25/2023 AST 13 03/07/2024 ALT 22 03/07/2024 ANIONGAP 13 03/25/2023 BCRATIO SEE NOTE: 03/07/2024 My interpretation of labs: Magnesium 02/2024: WNL CMP 02/2024: Without electrolyte derangement, kidney dysfunction or liver dysfunction CBC with differential 02/2024: Without evidence of anemia platelets WNL TSH reflexive 02/2024: WNL No record of celiac serologies however had negative duodenal biopsies on EGD 2021 per below 3) IMAGING: CT ABDOMEN AND PELVIS WITHOUT CONTRAST WITH RECONSTRUCTED IMAGES DATE: 03/25/2023 11:16 PM HISTORY: Flank pain, stone disease suspected. COMPARISON: 11/27/2021 TECHNIQUE: Multislice helical imaging of the abdomen and pelvis without contrast. Orthogonal reconstructions were created. FINDINGS: LOWER CHEST: No acute consolidation in the visible lung bases. LIVER: No contour deforming mass. GALLBLADDER AND BILIARY: Cholecystectomy. Prominence of the biliary tree is likely due to reservoir effect. PANCREAS: Unremarkable. SPLEEN: Homogenous spleen without enlargement. ADRENAL GLANDS: Symmetric adrenal glands. No discrete mass. KIDNEYS/URETERS: Nonobstructing right nephrolithiasis. URINARY BLADDER: Unremarkable for the degree of distention. REPRODUCTIVE ORGANS: 4.8 cm cystic structure in the right adnexa, either an ovarian cyst or hydrosalpinx. STOMACH AND BOWEL: Bowel loops are nondilated. Similar appearing clustered bowel loops in the right upper quadrant with anastomotic bowel suture. Congenital nonrotation of the bowel again noted. VESSELS: Normal caliber abdominal aorta. LYMPH NODES: No pathologic lymph node enlargement. PERITONEUM/RETROPERITONEUM: No pneumoperitoneum. No substantive free fluid or identifiable organized fluid collections. ABDOMINAL WALL: Scarring of the anterior abdominal wall from prior surgical incision. BONES: No acute fracture. ADDITIONAL: None. IMPRESSION: 1. No acute traumatic findings. 2. Incidental findings as above. CT ABDOMEN AND PELVIS WITHOUT CONTRAST DATE: 11/28/2021 12:07 AM IMPRESSION: 1. Postoperative changes. 2. Small amount of free fluid in the pelvis that appears physiologic. 3. Congenital nonrotation of the bowel. 4. Nonobstructing right intrarenal calculus. CT ABDOMEN AND PELVIS WITH IV CONTRAST DATE: 12/28/2020 4:54 PM IMPRESSION: Nonspecific enteritis involving primarily the proximal small bowel. Ileus may also be present but early or partial small bowel obstruction is not excluded. Free fluid in the abdomen and pelvis. No focal abscess is identified. No free air is identified. Malrotation of the bowel is again identified. The cecum is noted in the mid anterior pelvis and the appendix is seen in the superior anterior pelvis just to the left of midline. The appendix is normal. Status post cholecystectomy. There is no bile duct dilatation. No additional finding and no other acute process. CT A/P with contrast 2019 IMPRESSION: 1. Cholelithiasis with gallbladder wall thickening and pericholecystic fluid, compatible with cholecystitis. 2. Dilated common bile duct. Choledocholithiasis not excluded. 3. Diffuse hepatic steatosis with hepatosplenomegaly. 4. Nonobstructing right lower pole renal stone. 5. Intestinal malrotation. 4) ENDOSCOPIC EVALUATION: EGD: 01/2022: Impression: Esophageal mucosal changes suspicious for eosinophilic esophagitis. Biopsied. - Z-line irregular. Biopsied. - Non-erosive gastritis. Biopsied. - Normal mucosa was found in the entire examined duodenum. Biopsied. Recommendation: Discharge patient to home. - Continue present medications. - Await pathology results. FINAL DIAGNOSIS Small bowel, duodenum, endoscopic biopsy: - No significant histopathologic abnormality. Stomach, endoscopic biopsy: - No significant histopathologic abnormality. - No H. pylori identified on H&E stained slides. Esophagus, mid, endoscopic biopsy: - No significant histopathologic abnormality. Esophagus, GE junction, endoscopic biopsy: - Mild acute and chronic inflammation with reactive changes. - No intestinal metaplasia or dysplasia identified. 04/2019 Prashant Impression: Esophageal mucosal changes suspicious for eosinophilic esophagitis. Biopsied. - Hiatal hernia. - Normal stomach. - Normal examined duodenum. Recommendation: Discharge patient to home (with escort). - Patient has a contact number available for emergencies. The signs and symptoms of potential delayed complications were discussed with the patient. Return to normal activities tomorrow. Written discharge instructions were provided to the patient. - Resume previous diet. - Use Protonix (pantoprazole) 40 mg PO BID. If path consistent with EoE and no response to PPI then would escalate to topical steroid treatment. - Return to my office in 4 weeks. FINAL DIAGNOSIS Esophagus, mid, biopsy: - Esophagitis with marked increase of eosinophils, at least 60 per high-power field. Esophagus, distal, biopsy: - Esophagitis with marked increase of eosinophils, at least 60 per high-power field. Colonoscopy: 01/2022: Impression: The examined portion of the ileum was [...] colon for evaluation of microscopic colitis. Recommendation: Discharge patient to home. - Continue present medications. - Await pathology results. FINAL DIAGNOSIS Large bowel, transverse colon polyp, polypectomy: - Tubular adenoma. Large bowel, colon, random endoscopic biopsy: - No significant histopathologic abnormality. Impression/Plan: 1) chronic diarrhea, lower abdominal pain and history of gastroschisis: Chronic abdominal pain and diarrhea ongoing since childhood S/p CCK 2019 with worsening diarrhea EGD with negative duodenal biopsies 2021 Colonoscopy 2021 random biopsies without evidence of microscopic colitis or IBD Recent TSH WNL Recent CBC and CMP without evidence of anemia or electrolyte derangement per above She is here to discuss her abdominal pain and diarrhea. Previously receiving FMLA intermittent upwards of 2 days 2 times per month for pain and diarrhea completed by [facility] at work they requested patient to follow-up with GI to complete FMLA paperwork Her GI symptoms limit her ability to work given limited access to bathroom However she has never tried to take anything for this outside of fiber and probiotic? Including never tried dicyclomine following last visit Suspect diarrhea is related to IBS-D and bile acid diarrhea given unremarkable workup and duration of symptoms. She has had recent antibiotic never been checked for C. difficile lower concern for this given duration of symptoms without recent change. Low concern for pancreatic insufficiency or rare neuroendocrine tumor contributed diarrhea but cannot exclude -Complete infectious stool studies including: Culture, C. difficile, Giardia and Cryptosporidium -We extensively discussed treatment options moving forward including bile acid sequestrant versus antispasmodic. I feel she would benefit from both but ultimately opted to start with antispasmodic given complaints of pain and diarrhea. Will prescribe Levbid longer acting version did discuss potential anticholinergic side effects allow 2 weeks to see full effect. If no improvement consider escalation to twice daily versus addition of Colestid 1 g once daily. We did discuss starting with low dosing on these medications to start escalating as needed 1 to avoid constipation/risk of bowel obstruction -Continue to avoid artificial sweeteners, sugar, caffeine, high fat including dairy -We discussed the gut the brain connection and how managing underlying stress/worry/mood disorders will aid in managing GI symptoms. -Will defer option for FMLA to Dr. Benites. However did discuss with patient today she is not failed medications several different medications we can discuss including antispasmodic, bile acid sequestrant possibly low-dose TCA as only on low-dose SSRI -If diarrhea still persisting despite this treatment plan may need to consider further evaluation of her diarrhea with fecal elastase possibly neuroendocrine tumor workup? Follow up tentative 3 months with myself then [address] Benites Time spent today: 35 min this includes time spent reviewing outside records, office notes, labs, imaging and procedures. Cheyenne Kendall PA-C [facility] [address] [place] [address] Phone: [phone] CC: Bijal Wolfe MD This note was transcribed using [facility] naturally speaking computerized voice recognition without a human safety companion. This report may or may not have been adjusted for typographical, grammaticaland syntax errors. BOOK WRITER documented in this encounter Miscellaneous Notes * Patient Instructions - Cheyenne Kendall PA-C - 04/27/2024 1:30 PM CST 1) Stool studies ordered. Please obtain kit from any [facility] or [employer] lab. Collect at home and returnto any [facility] or [employer] lab. I will send my [employer] message or call if abnormal. 2) Recommend Levbid in the morning for pain and diarrhea. Give it 2 weeks to see full effect. If nobetter in two weeks can either increase this to twice daily or add Colestid (bile acid sequestrant) 3) Continue to limit, sugar, artifical sweeteners, caffeine and high fat can make diarrhea worse Tentative follow up with Dr. Benites in 3 months BOOK WRITER documented in this encounter Plan of Treatment Upcoming Encounters Date Type Department Care Team (Late st Contact Info) Description 06/20/2024 9:30 AM RACEBOOK WRITER Office Visit [facility] Orthopedic Surgery at the [facility] Medicine [address] [place] [id number] [place] [address] [place] [phone] 10/27/2024 2:45 PM CDT Office Visit [facility] [address] [place] [address] Bebo Benites MD [address] [place] [address] Scheduled Orders Name Type Priority Associated Diagnoses Orde r Schedule C. DIFFICILE DETECTION Microbiology Routine Chronic diarrhea Bilateral lower abdominal pain Expected: 04/27/2024 (Approximate), Expires: 08/25/2024 STOOL CULTURE W/SHIGA TOXIN Microbiology Routine Chronic diarrhea Bilateral lower abdominal pain Expected: 04/27/2024 (Approximate), Expires: 08/25/2024 GIARDIA & CRYPTOSPORIDIUM ANTIGEN Microbiology Routine Chronic diarrhea Bilateral lower abdominal pain Expected: 04/27/2024 (Approximate), Expires: 08/25/2024 documented as of this encounter Visit Diagnoses Diagnosis Chronic diarrhea- Primary Diarrhea Bilateral lower abdominal pain Abdominal pain, other specified site documented in this encounter Additional Health Concerns Assessment Noted Time PHQ-9 Depression Total Score: 4 08/21/19 24 1:00 PM RACEBOOK WRITER documented as of this encounter Care Teams Mobile Crane Operator Relationship Specialty Start Date End Date Bijal Wolfe MD [address] [place] [id number] PCP - General Internal Medicine 12/14/23 documented as of this encounter
--- OUTSIDE RECORDS SUMMARY | 2024-06-08 20:18 | XMS_ITS | Encounter Summary ---
Author Organization [facility] Address [address] [place] [address] Care Team Providers Care Health Screener Name Role Phone Bijal Wolfe MD Primary Care Provider [phone] Reason for Visit * Reason Comments Medication Refill Encounter Details Date Type Department Care Team (Latest Contact Info) Description 04/26/2024 2:20 PM SHORE HAND DREDGE OR BARGE Procedure visit [facility] at [facility] [employer] [place] [address] [place] [address] Encounter for issue of repeat prescription (Primary Dx) Social History Tobacco Use Types [...] as of this encounter Progress Notes * Henrietta Andrade, SATURNINO - 04/26/2024 2:33 PM CST Bupropion 300mg #90, Albuterol inhaler #1, Lisinopril 10mg #100, Escitalopram 10mg #90, Meloxicam 7.5mg #30. E HAND DREDGE OR BARGE documented in this encounter Plan of Treatment Upcoming Encounters Date Type Department Care Team ( Contact Info) Description 06/20/2024 9:30 AM SHORE HAND DREDGE OR BARGE Office Visit [facility] Orthopedic Surgery at the [facility] [address] [facility] [address] [place] [phone] [place] [address] [place] [address] 10/27/2024 2:45 PM CDT Office Visit [facility] Gastroenterology [address] [address] [facility] [address] [place] [phone] Bebo Benites MD [address] [facility] [address] [place] [address] documented as of this encounter Visit Diagnoses Diagnosis Encounter for issue of repeat prescription- Primary Issue of repeat prescriptions documented in this encounter Additional Health Concerns Assessment Noted Time PHQ-9 Depression Total Score: 4 08/21/19 24 1:00 PM SHORE HAND DREDGE OR BARGE documented as of this encounter Care Teams Health Screener Relationship Specialty Start Date End Date Bijal Wolfe MD [address] [place] [phone] PCP - General Internal Medicine 12/14/23 documented as of this encounter
--- OUTSIDE RECORDS SUMMARY | 2024-06-08 20:19 | XMS_ITS | Encounter Summary ---
Author Organization [facility] Address [address] [place] [address] Care Team Providers Care Sales And Leasing Agent Name Role Phone Elma Magaña MD Primary Care Provider [phone] Encounter Details Date Type Department Care Team (Late st Contact Info) Description 08/07/2023 External Device Data [facility] ABSTRACTION Provider, Abstract NO ADDRESS ON FILE Social History Tobacco Use Types Packs/Day Years [...] st Contact Info) Description 06/20/2024 9:30 AM CORN HUSKER MACHINE OPERATOR Office Visit [facility] Orthopedic Surgery at the [facility] Medicine [address] [facility] [address] [place] [phone] [place] [address] [place] [phone] 10/27/2024 2:45 PM CDT Office Visit [facility] Gastroenterology [facility] [address] [facility] [address] [place] [phone] Bebo Benites MD [address] [phone] documented as of this encounter Visit Diagnoses Not on filedocumented in this encounter Additional Health Concerns Assessment Noted Time PHQ-9 Depression Total Score: 5 07/10/19 24 1:00 PM CORN HUSKER MACHINE OPERATOR documented as of this encounter Care Teams Sales And Leasing Agent Relationship Specialty Start Date End Date Elma Magaña MD [address] [place] [phone] PCP - General Family Practice 12/09/21 12/13/23 documented as of this encounter
--- OUTSIDE RECORDS SUMMARY | 2024-06-08 20:19 | XMS_ITS | Encounter Summary ---
Author Organization [facility] Address [address] [place] [address] Care Team Providers Care Salon Professional Name Role Phone Bijal Wolfe MD Primary Care Provider [phone] Reason for Visit * Reason Onset Date Comments Medication Refill 12/15/2023 Encounter Details Date Type Department Care Team (Late st Contact Info) Description 12/15/2023 Refill [facility] [place] [address] [place] [phone] Elma Magaña MD [address] [place] [phone] Type 2 diabetes mellitus without complication, without long-term current use of insulin Social History Tobacco Use Types Packs/Day Years [...] on file documented as of this encounter Miscellaneous Notes * Telephone Encounter - Luba Vuong ANP - 12/15/2023 9:08 AM CDT Ok to refill but she is due for appointment for FU nightmares and BP check on new prazosin medication. DNS for November appointment. documented in this encounter Plan of Treatment Upcoming Encounters Date Type Department Care Team (Late st Contact Info) Description 06/20/2024 9:30 AM FIBERGLASS PIPE COVERING SUPERVISOR Office Visit [facility] Orthopedic Surgery at the [facility] [address] [facility] [address] [place] [phone] [place] [address] [place] [address] 10/27/2024 2:45 PM CDT Office Visit [facility] Gastroenterology [address] [address] [facility] [address] [place] [address] Bebo Benites MD [address] [facility] [address] [place] [address] documented as of this encounter Visit Diagnoses Diagnosis Type 2 diabetes mellitus without complication, without long-term current use of insulin documented in this encounter Additional Health Concerns Assessment Noted Time PHQ-9 Depression Total Score: 4 08/21/19 24 1:00 PM FIBERGLASS PIPE COVERING SUPERVISOR documented as of this encounter Care Teams Salon Professional Relationship Specialty Start Date End Date Bijal Wolfe MD [address] [place] [phone] PCP - General Internal Medicine 12/14/23 documented as of this encounter
--- OUTSIDE RECORDS SUMMARY | 2024-06-08 20:19 | XMS_ITS | Encounter Summary ---
Author Organization [facility] Address [address] [place] [address] Care Team Providers Care Denitrator Operator Name Role Phone Elma Magaña MD Primary Care Provider Reason for Visit * Reason Comments Follow Up Diabetes Encounter Details Date Type Department Care Team (Latest Contact Info) Description 07/04/2022 9:00 AM SHELLFISH MANAGER Office Visit [facility] [place] [address] [place] [address] Lis Nails, ANA NO ADDRESS ON FILE Type 2 diabetes mellitus without complication, without long-term current use of insulin (Primary Dx); Hyperlipidemia, unspecified hyperlipidemia type; HTN (hypertension), benign; Generalized anxiety disorder; Moderate episode of recurrent major depressive disorder; Morbid obesity with body mass index of 40.0-49.9; Vitamin D insufficiency; Screening for condition Social History Tobacco Use Types Packs/Day Years [...] Sign Reading Time Taken Comments Blood Pressure 122/84 07/04/2022 9:00 AM SHELLFISH MANAGER Pulse 83 07/04/2022 9:00 AM SHELLFISH MANAGER Temperature 36 ??C (96.8 ??F) 07/04/2022 9:00 AM SHELLFISH MANAGER Respiratory Rate 18 07/04/2022 9:00 AM SHELLFISH MANAGER Oxygen Saturation 98% 07/04/2022 9:00 AM SHELLFISH MANAGER Inhaled Oxygen Concentration - - Weight 105.7 kg (233 lb) 07/04/2022 9:00 AM SHELLFISH MANAGER Height 167.6 cm (5' 6 ) 07/04/2022 9:00 AM SHELLFISH MANAGER Body Mass Index 37.61 07/04/2022 9:00 AM SHELLFISH MANAGER documented in this encounter Progress Notes * Jesu Liskirby Vásquez, ANA - 07/04/2022 9:01 AM CST HISTORY OF PRESENT ILLNESS Lis Phelan, a 37 y.o. female presents with a chief complaint of Chief Complaint Patient presents with Follow Up Diabetes Subjective HPI Patient presents for routine diabetes follow up. Diet- She reports she does try to watch what she eats. She reports she has cut out red meat, and decreased pasta intake. Does eat lots of veggies. Exercise- Active here at work. But no additional exercise. Last eye exam ~04/2022 Does keep close eye on feet. Patient reports she has been better about taking her medications for the past 1 year or so. She reports she recently (~2 weeks ago) dropped her sertraline dose down from 200 mg daily to 100 mg daily. Does reports she feels better on only 100 mg. Does have some decreased libido. She is hopeful that the decrease in dosage will help and she is trying otc jeison love & libido supplement. Tobacco Intervention She is not a current tobacco user- former. Depression Screen PHQ-2 Total: 3 (07/04/22899) PHQ-9 Total: 8 (07/04/22899) Positive: PHQ-2 score >= 3 or PHQ-9 score >= 9 PHQ-2 Total: 3 (07/04/2022 9:00 AM) PHQ-9 Total: 8 (07/04/2022 9:00 AM) DEPRESSION PLAN OF CARE Her depression screen was positive. Her antidepressant medication was reviewed. Anxiety Screen Generalized Anxiety (GAD7) 1. Feeling nervous, anxious, or on edge:: 0 (07/04/2022 9:00 AM) 2. Not been able to stop or control worrying:: 0 (07/04/2022 9:00 AM) 3. Worrying too much about different things:: 0 (07/04/2022 9:00 AM) 4.Trouble relaxing:: 0 (07/04/2022 9:00 AM) 5. Being so restless that it is hard to sit still:: 0 (07/04/2022 9:00 AM) 6. Becoming easily annoyed or irritatble:: 2 (07/04/2022 9:00 AM) 7. Feeling afraid as if something awful might happen:: 0 (07/04/2022 9:00 AM) If you checked off any problems, how difficult have these made it for you to do your work, take care of things at home, or get along with other people?: Not difficult (07/04/2022 9:00 AM) Anxiety Score: 2 (07/04/2022 9:00 AM) Blood Pressure BP Readings from Last 3 Encounters: 07/04/22 122/84 03/03/22 116/74 02/10/22 116/70 Normal BMI Range: 18 & older: > or = 18.5 and < 25 Body mass index is 37.61 kg/m??. Abnormal high BMI: Patient counseled on lifestyle modifications including weight loss and daily exercise. This medical record reflects the history of present illness as obtained by myself in discussion with the patient. ROS Review of Systems - as above in HPI Objective PHYSICAL EXAM Physical Examination: General appearance - alert, well appearing, and in no distress, oriented to person, place, and time, and overweight Mental status - alert, oriented to person, place, and time, normal mood, behavior, speech, dress, motor activity, and thought processes Chest - clear to auscultation, no wheezes, rales or rhonchi, symmetric air entry Heart - normal rate, regular rhythm, normal S1, S2, no murmurs, rubs, clicks or gallops Abdomen - soft, nontender, nondistended, no masses or organomegaly Neurological - alert, oriented, normal speech, no focal findings or movement disorder noted, motor and sensory grossly normal bilaterally, normal muscle tone, no tremors Extremities - no pedal edema noted Assessment ASSESSMENT AND PLAN ICD-10-CM ICD-9-CM 1. Type 2 diabetes mellitus without complication, without long-term current use of insulin E11.9 250.00 COMPREHENSIVE METABOLIC PANEL HEMOGLOBIN A1C MICROALBUMIN/CREATININE RATIO, RANDOM UR URINALYSIS WITH REFLEX MICROSCOPIC 2. Hyperlipidemia, unspecified hyperlipidemia type E78.5 272.4 LIPID PANEL 3. HTN (hypertension), benign I10 401.1 MICROALBUMIN/CREATININE RATIO, RANDOM UR URINALYSIS WITH REFLEX MICROSCOPIC 4. Generalized anxiety disorder F41.1 300.02 5. Moderate episode of recurrent major depressive disorder F33.1 296.32 sertraline (ZOLOFT) 100 mg tablet 6. Morbid obesity with body mass index of 40.0-49.9 E66.01 278.01 7. Vitamin D insufficiency E55.9 268.9 VITAMIN D 25 HYDROXY 8. Screening for condition Z13.9 V82.9 CBC WITH DIFFERENTIAL T4 FREE TSH VITAMIN B12 LEVEL IRON, TIBC, AND PERCENT SATURATION FERRITIN Will follow up on results of fasting blood work and urine. Adhere to low carbohydrate diet. Increase exercise. It is recommended to get at least 150 minutes per week of moderate-intensity aerobic activity. Needs repeat A1c every 3 months. Patient will let us know when she needs refills of medications. LFISH MANAGER documented in this encounter Miscellaneous Notes * Result Encounter Note - Lis Nails FNP - 07/08/2022 1:19 PM SHELLFISH MANAGER Lis- Your labs have been reviewed. > Your lipid panel is elevated. This is best controlled with diet and exercise. Diet and exercise help to reduce lipids and prevent heart disease. Reduce intake of red meat, dairy, and fried foods. Increase intake of fruits, vegetables, and fish. If you have a family history, you are more prone to having high cholesterol. Get at least 150 minutes per week of moderate-intensity aerobic activity. Make sure you are taking both the rosuvastatin and fenofibrate daily as prescribed. I would recommend repeat labs in 3 months to see how things are going. If the numbers continue to be elevated, we will discuss different medication treatment options. > Your DM is well controlled. We will keep you on current medication regimen. > Your Vit. B12 is elevated. Are you taking a B12 supplement? If so, you need to stop. Will needto recheck level in 1 month. > Your UA is abnormal. Are you having any symptoms? I recommend coming back in for urine culture. Thanks, Lis RODRIGUEZ LFISH MANAGER documented in this encounter Plan of Treatment Upcoming Encounters Date Type Department Care Team (Late st Contact Info) Description 06/20/2024 9:30 AM SHELLFISH MANAGER Office Visit [facility] Orthopedic Surgery at the [facility] Medicine [address] [place] [phone] [place] [address] [place] [address] 10/27/2024 2:45 PM CDT Office Visit [facility] Gastroenterology [address] [place] [address] Bebo Bneites MD [address] [place] [address] documented as of this encounter Procedures Procedure Name Priority Date/Time Associated Diagnosis Comments MICROALBUMIN/CREATINI NE RATIO, RANDOM UR Routine 07/04/2022 9:33 AM SHELLFISH MANAGER Type 2 diabetes mellitus without complication, without long-term current use of insulin HTN (hypertension), benign IRON, TIBC, AND PERCENT SATURATION Routine 07/04/2022 9:33 AM SHELLFISH MANAGER Screening for condition CBC WITH DIFFERENTIAL Routine 07/04/2022 9:33 AM SHELLFISH MANAGER Screening for condition VITAMIN D 25 HYDROXY Routine 07/04/2022 9:33 AM SHELLFISH MANAGER Vitamin D insufficiency URINALYSIS W/REFLEX MICROSCOPIC Routine 07/04/2022 9:33 AM SHELLFISH MANAGER Type 2 diabetes mellitus without complication, without long-term current use of insulin HTN (hypertension), benign TSH Routine 07/04/2022 9:33 AM SHELLFISH MANAGER Screening for condition T4 FREE Routine 07/04/2022 9:33 AM SHELLFISH MANAGER Screening for condition HEMOGLOBIN A1C Routine 07/04/2022 9:33 AM SHELLFISH MANAGER Type 2 diabetes mellitus without complication, without long-term current use of insulin FERRITIN Routine 07/04/2022 9:33 AM SHELLFISH MANAGER Screening for condition VITAMIN B12 LEVEL Routine 07/04/2022 9: 33 AM SHELLFISH MANAGER Screening for condition LIPID PANEL Routine 07/04/2022 9:33 AM SHELLFISH MANAGER Hyperlipidemia, unspecified hyperlipidemia type COMPREHENSIVE METABOLIC PANEL Routine 07/04/2022 9:33 AM SHELLFISH MANAGER Type 2 diabetes mellitus without complication, without long-term current use of insulin documented in this encounter Results * FERRITIN (07/04/2022 9:33 AM SHELLFISH MANAGER) FERRITIN 69 16 - 154 ng/mL [facility] Comment: Test Performed at: [facility] [address] [place], [place] ??[address] Jose Bryant D.O., MPH Blood 07/04/2022 9:33 AM SHELLFISH MANAGER 07/05/2022 7:51 AM SHELLFISH MANAGER Lis Nails [facility] CHEMISTRY DEVIKA MARTINEZ [facility] Organization Address City/State/ZIP Co de Phone Number [facility] [phone] [facility] [address] [place] [address] * IRON, TIBC, AND PERCENT SATURATION (07/04/2022 9:33 AM SHELLFISH MANAGER) IRON 73 40 - 190 mcg/dL [facility] TIBC 414 250 - 450 mcg/dL (calc) [facility] IRON % SATURATION 18 16 - 45 % (calc) [facility] Comment: Test Performed at: [facility] [address] [place], [place] ??[address] Jose Bryant D.O., MPH Blood 07/04/2022 9:33 AM SHELLFISH MANAGER 07/05/2022 7:51 AM SHELLFISH MANAGER Lis Nails [facility] CHEMISTRY ORDE RABLES [facility] [phone] [facility] [address] [place] [address] * (ABNORMAL) URINALYSIS WITH REFLEX MICROSCOPIC (07/04/2022 9:33 AM SHELLFISH MANAGER) COLOR UA YELLOW YELLOW [facility] [place] CLARITY UA CLOUDY(A) CLEAR [facility] [place] SPECIFIC GRAVITY UA 1.021 1.001 - 1.035 [facility] [place] PH UA 5.5 5.0 - 8.0 [facility] [place] GLUCOSE UA NEGATIVE NEGATIVE [facility] [place] BILIRUBIN UA NEGATIVE NEGATIVE [facility] [place] KETONES UA NEGATIVE NEGATIVE [facility] [place] BLOOD UA NEGATIVE NEGATIVE [facility] [place] PROTEIN UA NEGATIVE NEGATIVE [facility] [place] NITRITE UA NEGATIVE NEGATIVE [facility] [place] LEUKOCYTE ESTERASE UA 3+(A) NEGATIVE [facility] [place] WBC UA 40-60(A) < OR = 5 /HPF [facility] [place] RBC UA NONE SEEN < OR = 2 /HPF [facility] [place] EPITHELIAL CELLS, URINE 6-10(A) < OR = 5 /HPF [facility] [place] BACTERIA UA MODERATE(A) NONE SEEN /HPF [facility] [place] HYALINE CAST 0-5(A) NONE SEEN /LPF [facility] [place] Comment: Test Performed at: [facility] [address] [place], [place] ??[address] Jose Bryant D.O., MPH Urine URINE SPECIMEN OBTAINED BY CLEAN CATCH PROCEDURE / Unknown 07/04/2022 9:33 AM SHELLFISH MANAGER 07/05/2022 7:31 AM SHELLFISH MANAGER Lis Nails [facility] URINE ORDERABL ES [facility] [phone] [facility] [address] [place] [address] * VITAMIN D 25 HYDROXY (07/04/2022 9:33 AM SHELLFISH MANAGER) VITAMIN D, 25 OH, TOTAL 55 30 - 100 ng/mL [facility] Comment: Vitamin D Status ? 25-OH Vitamin D: Deficiency: ?<20 ng/mL Insufficiency: ? 20 - 29 ng/mL Optimal: ? > or = 30 ng/mL For 25-OH Vitamin D testing on patients on D2-supplementation and patients for whom quantitation of D2 and D3 fractions is required, the Quest[facility]ure[facility](TM) 25-OH VIT D, (D2,D3), LC/MS/MS is recommended: order code 11173 (patients >2yrs). See Note 1 Note 1 For additional information, please refer to http://education.[employer]faq/ACD422 (This link is being provided for informational/ educational purposes only.) Test Performed at: [facility] ??[address] Jose Bryant D.O., MPH Blood 07/04/2022 9:33 AM SHELLFISH MANAGER 07/05/2022 7:51 AM SHELLFISH MANAGER Lis Nails [facility] CHEMISTRY DEVIKA MARTINEZ [facility] [phone] [facility] [address] [place] [phone] * (ABNORMAL) VITAMIN B12 LEVEL (07/04/2022 9:33 AM SHELLFISH MANAGER) Pathologist [facility] VITAMIN B12 1293(H) 200 - 1100 pg/mL [facility] Comment: Test Performed at: [facility] ??[address] Jose Bryant D.O., MPH Blood 07/04/2022 9:33 AM SHELLFISH MANAGER 07/05/2022 7:51 AM SHELLFISH MANAGER Lis Vásquez Jesu [facility] CHEMISTRY ORDChano MCKEONMAMI Performing Organization Address [facility] Co de Phone Number [facility] [phone] [facility] [address] [place] [phone] * TSH (07/04/2022 9:33 AM SHELLFISH MANAGER) TSH 1.58 mIU/L [facility] Comment: ?Reference Range ?> or = 20 Years ??0.40-4.50 ? Ranges ?First trimester ?0.26-2.66 ?Second trimester ?? 0.55-2.73 ?Third trimester ?0.43-2.91 Test Performed at: [facility] ??[address] Jose Bryant D.O., MPH Blood 07/04/2022 9:33 AM SHELLFISH MANAGER 07/05/2022 7:51 AM SHELLFISH MANAGER Lis Nails [facility] CHEMISTRY ORDChano MARTINEZ Performing Organization Address [facility]/ZIP Co de Phone Number [facility] [phone] [facility] [address] [place] [phone] * T4 FREE (07/04/2022 9:33 AM SHELLFISH MANAGER) T4 FREE 1.2 0.8 - 1.8 ng/dL [facility] Comment: Test Performed at: [facility] ??[address] Jose Bryant D.O., MPH Blood 07/04/2022 9:33 AM SHELLFISH MANAGER 07/05/2022 7:51 AM SHELLFISH MANAGER Lis Nails [facility] CHEMISTRY ORDE RABLES Performing Organization Address [facility] Co de Phone Number [facility] [phone] [facility] [address] [place] [address] * MICROALBUMIN/CREATININE RATIO, RANDOM UR (07/04/2022 9:33 AM SHELLFISH MANAGER) Creatinine, Urine 129 20 - 275 mg/dL [facility] MICROALBUMIN, URINE 1.5 See Note: mg/dL [facility] Comment: Reference Range: Reference Range Not established MICROALBUMIN/CREAT RATIO, UR 12 <30 mcg/mg creat [facility] Comment: [...] within a diagnostic category. Test Performed at: [facility] ??[address] Jose Bryant D.O., MPH Urine URINE SPECIMEN OBTAINED BY CLEAN CATCH PROCEDURE / Unknown 07/04/2022 9:33 AM SHELLFISH MANAGER 07/05/2022 7:31 AM SHELLFISH MANAGER Lis GONSALESP URINE ORDERABL ES Performing Organization Address [facility] Co de Phone Number [facility] [phone] [facility] [address] [place] [address] * (ABNORMAL) LIPID PANEL (07/04/2022 9:33 AM SHELLFISH MANAGER) Pathologist [facility] CHOLESTEROL 224(H) <200 mg/dL [facility] HDL 65 > OR = 50 mg/dL [facility] TRIGLYCERIDE 208(H) <150 mg/dL [facility] Comment: If a non-fasting specimen was collected, consider repeat triglyceride testing on a fasting specimen if clinically indicated. Dann et al. J. of Clin. Lipidol. 2015;9:129-169. LDL CALCULATED 127(H) mg/dL (calc) [facility] Comment: Reference range: <100 Desirable range <100 mg/dL for primary prevention; ?? <70 mg/dL for patients with CHD or diabetic patients with > or = 2 CHD risk factors. LDL-C is now calculated using the Medardo calculation, which is a validated novel method providing better accuracy than the Friedewald equation in the estimation of LDL-C. Tito CORTES et al. JOSUE. 2013;310(19): 6279-3343 (http://education.[employer]faq/QYM047) CHOL/HDL RATIO 3.4 <5.0 (calc) [facility] TOTAL NON-HDL CHOL(LDL+VLDL) 159(H) <130 mg/dL (calc) [facility] Comment: For patients with diabetes plus 1 major ASCVD risk factor, treating to a non-HDL-C goal of <100 mg/dL (LDL-C of <70 mg/dL) is considered a therapeutic option. Test Performed at: [facility] [address] [place], [place] ??[address] Jose Bryant D.O., MPH Blood 07/04/2022 9:33 AM SHELLFISH MANAGER 07/05/2022 7:51 AM SHELLFISH MANAGER Lis PEREZ CHEMISTRY DEVIKA MARTINEZ [facility] [phone] [facility] [address] [place] [address] * HEMOGLOBIN A1C (07/04/2022 9:33 AM SHELLFISH MANAGER) [facility] HEMOGLOBIN A1C 5.6 <5.7 % of total Hgb [facility] Comment: For the purpose of screening for the presence of diabetes: <5.7% ? Consistent with the absence of diabetes 5.7-6.4% ?Consistent with increased risk for diabetes ?(prediabetes) > or =6.5% ??Consistent with diabetes This assay result is consistent with a decreased risk of diabetes. Currently, no consensus exists regarding use of hemoglobin A1c for diagnosis of diabetes in children. According to [place] Diabetes Association (ADA) guidelines, hemoglobin A1c <7.0% represents optimal control in non- diabetic patients. Different metrics may apply to specific patient populations. Standards of Medical Care in Diabetes(ADA). ?? ESTIMATED AVERAGE GLUCOSE (MG/DL) 114 mg/dL [facility] ESTIMATED AVERAGE GLUCOSE (MMOL/L) 6.3 mmol/L [facility] Comment: Test Performed at: [facility] [id number] [place] [address] ??[phone] Jose Bryant D.O., MPH Blood 07/04/2022 9:33 AM SHELLFISH MANAGER 07/05/2022 7:51 AM SHELLFISH MANAGER Lis Nails [facility] CHEMISTRY DEVIKA MARTINEZ [facility] [phone] [facility] [address] [place] [address] * (ABNORMAL) COMPREHENSIVE METABOLIC PANEL (07/04/2022 9:33 AM SHELLFISH MANAGER) [facility] GLUCOSE 81 65 - 99 mg/dL [facility] Comment: ? Fasting reference interval BUN 12 7 - 25 mg/dL [facility] CREATININE 0.67 0.50 - 0.97 mg/dL [facility] GFR 116 > OR = 60 mL/min/1. 73m2 [facility] Comment: The eGFR is based on the CKD-EPI 2020 equation. To calculate the new eGFR from a previous Creatinine or Cystatin C result, go to https://www.kidney.org/professionals/ kdoqi/gfr%5Fcalculator BUN/CREAT RATIO NOT APPLICABLE 6 - 22 (calc) [facility] [place] SODIUM 139 135 - 146 mmol/L [facility] [place] POTASSIUM 4.6 3.5 - 5.3 mmol/L [facility] [place] CHLORIDE 107 98 - 110 mmol/L [facility] [place] CO2 16(L) 20 - 32 mmol/L [facility] [place] CALCIUM 9.8 8.6 - 10.2 mg/dL [facility] [place] TOTAL PROTEIN 7.2 6.1 - 8.1 g/dL [facility] [place] ALBUMIN 4.2 3.6 - 5.1 g/dL [facility] [place] GLOBULIN 3.0 1.9 - 3.7 g/dL (calc) [facility] [place] ALBUMIN/GLOBULI N RATIO 1.4 1.0 - 2.5 (calc) [facility] [place] BILIRUBIN TOTAL 0.4 0.2 - 1.2 mg/dL [facility] [place] ALKALINE PHOSPHATASE 61 31 - 125 U/L [facility] [place] AST 14 10 - 30 U/L [facility] [place] ALT 19 6 - 29 U/L [facility] [place] Comment: Test Performed at: [facility] [address] [place], [place] ??[address] Jose Bryant D.O., MPH Blood 07/04/2022 9:33 AM SHELLFISH MANAGER 07/05/2022 7:51 AM SHELLFISH MANAGER Lis Nails [facility] CHEMISTRY ORDE MICHELLE [facility] [phone] [facility] [address] [place] [address] * CBC WITH DIFFERENTIAL (07/04/2022 9:33 AM SHELLFISH MANAGER) WBC 8.8 3.8 - 10.8 Thousand/u L [facility] RBC 4.40 3.80 - 5.10 Million/uL [facility] HEMOGLOBIN 13.5 11.7 - 15.5 g/dL [facility] HEMATOCRIT 40.4 35.0 - 45.0 % [facility] MCV 91.8 80.0 - 100.0 fL [facility] MCH 30.7 27.0 - 33.0 pg [facility] MCHC 33.4 32.0 - 36.0 g/dL [facility] RDW 13.8 11.0 - 15.0 % [facility] PLATELETS 333 140 - 400 Thousand/u L [facility] MPV 10.3 7.5 - 12.5 fL [facility] NEUTROPHIL ABSOLUTE 5,447 1,500 - 7,800 cells/uL [facility] LYMPHOCYTE ABSOLUTE 2,297 850 - 3,900 cells/uL [facility] MONOCYTE ABSOLUTE 537 200 - 950 cells/uL [facility] EOSINOPHIL ABSOLUTE 493 15 - 500 cells/uL [facility] BASOPHILS ABSOLUTE 26 0 - 200 cells/uL [facility] NEUTROPHIL 61.9 % [facility] LYMPHOCYTES 26.1 % [facility] MONOCYTE 6.1 % [facility] EOSINOPHILS 5.6 % [facility] BASOPHILS 0.3 % [facility] Comment: Test Performed at: [facility] [address] [place], [place] ??[address] Jose Bryant D.O., MPH Blood 07/04/2022 9:33 AM SHELLFISH MANAGER 07/05/2022 7:51 AM SHELLFISH MANAGER Lis Nails [facility] HEMATOLOGY ORD ERABLES [facility] [phone] [facility] [address] [place] [address] documented in this encounter Visit Diagnoses Diagnosis Type 2 diabetes mellitus without complication, without long-term current use of insulin- Primary Hyperlipidemia, unspecified hyperlipidemia type HTN (hypertension), benign Essential hypertension, benign Generalized anxiety disorder Moderate episode of recurrent major depressive disorder Morbid obesity with body mass index of 40.0-49.9 Vitamin D insufficiency Unspecified vitamin D deficiency Screening for condition Screening for unspecified condition documented in this encounter Additional Health Concerns Assessment Noted Time PHQ-9 Depression Total Score: 3 07/04/19 23 9:00 AM SHELLFISH MANAGER documented as of this encounter Care Teams Denitrator Operator Relationship Specialty Start Date End Date Elma Magaña MD [address] [place] [address] PCP - General Family Practice 12/09/21 12/13/23 documented as of this encounter
--- OUTSIDE RECORDS SUMMARY | 2024-06-08 20:19 | XMS_ITS | Encounter Summary ---
Author Organization [facility] Address [address] [place] [address] Care Team Providers Care Import Export Agent Name Role Phone Bijal Wolfe MD Primary Care Provider [phone] Encounter Details Date Type Department Care Team (Late st Contact Info) Description 01/26/2024 External Device Data STL ABSTRACTION Provider, Abstract [...] st Contact Info) Description 06/20/2024 9:30 AM CREDIT CASHIER [facility] at the [facility] [address] [facility] [address] [place] [phone] [place] [address] [place] [address] 10/27/2024 2:45 PM CDT [facility] [address] [facility] [address] [place] [address] Bebo Benites MD [address] [phone] documented as of this encounter Visit Diagnoses Not on filedocumented in this encounter Additional Health Concerns Assessment Noted Time PHQ-9 Depression Total Score: 4 08/21/19 24 1:00 PM CREDIT CASHIER documented as of this encounter Care Teams Import Export Agent Relationship Specialty Start Date End Date Bijal Wolfe MD [address] [place] [phone] PCP - General Internal Medicine 12/14/23 documented as of this encounter
--- OUTSIDE RECORDS SUMMARY | 2024-06-08 20:19 | XMS_ITS | Encounter Summary ---
Author Organization [facility] Address [address] [place] [address] Care Team Providers Care Striping Machine Operator Name Role Phone Elma Magaña MD Primary Care Provider [phone] Reason for Visit * Reason Comments Medication follow up Follow up on meds. Patient states doing fine. Encounter Details Date Type Department Care Team (Late st Contact Info) Description 08/27/2023 2:00 PM HEALTH CARE LIAISON Office Visit [facility] at Work [employer] [place] [address] [place] [address] Luba Vuong, ANP [address] [facility] Isaak [address] [place] [address] Nightmares associated with chronic post-traumatic stress disorder (Primary Dx); Moderate episode of recurrent major depressive disorder; Type 2 diabetes mellitus without complication, without long-term current use of insulin; Mixed hyperlipidemia; Severe obesity (BMI 35.0-39.9) with comorbidity Social History Tobacco Use Types Packs/Day Years [...] Sign Reading Time Taken Comments Blood Pressure 130/76 08/27/2023 2:02 PM HEALTH CARE LIAISON Pulse 91 08/27/2023 2:02 PM HEALTH CARE LIAISON Temperature 36.8 ??C (98.3 ??F) 08/27/2023 2:02 PM CS T Respiratory Rate 16 08/27/2023 2:02 PM HEALTH CARE LIAISON Oxygen Saturation 99% 08/27/2023 2:02 PM HEALTH CARE LIAISON Inhaled Oxygen Concentration - - Weight 103.4 kg (228 lb) 08/27/2023 2:02 PM HEALTH CARE LIAISON Height 167.6 cm (5' 6 ) 08/27/2023 2:02 PM HEALTH CARE LIAISON Body Mass Index 36.8 08/27/2023 2:02 PM HEALTH CARE LIAISON documented in this encounter Progress Notes * Luba Vuong, ANP - 08/27/2023 2:00 PM CST HISTORY OF PRESENT ILLNESS Lis Phelan, a 38 y.o. female presents with a Chief Complaint of Medication follow up (Follow upon meds. Patient states doing fine.) FU depression/anxiety-- Working with MELANIE Boyer therapist on stressors and triggers. Has noted improvement with change to wellbutrin XL 300 mg in Jun. Continues lexaprol. Reports nightmares for many years In consultation withDr. Hinton, psychiatrist, prazosin 1 mg nighty for nightmares is recommended with titration. Sheis open to treatment. She is searching for EMDR therapy source as well. 2) START prazosin 1 mg qhs for nightmares. Can increase by 1 mg every 3-5 days as tolerated to 4 mg. PHQ-9 Total: 12 (08/21/2023 1:00 PM) Anxiety Score: 3 (08/21/2023 1:00 PM Hyperlipidemia-- not currently taking fenofibrate for over one year . Taking crestor daily. DM- Wt is unchanged since January 2023. Wt down 25 lbs with since starting Mounjaro in October 2021. No longer notes satiety. Eating breakfast. Better snack choices. Still drinking soda. REVIEW OF SYSTEMS Review of Systems Constitutional: Negative for appetite change and unexpected weight change. Eyes: Negative for visual disturbance. Respiratory: Negative. Cardiovascular: Negative. Neurological: Negative for headaches. Psychiatric/Behavioral: Positive for dysphoric mood and sleep disturbance (dreams, nightmares). Objective PHYSICAL EXAM BP 130/76 (BP Location: Right arm, Patient Position (BP): Sitting, BP Cuff Size: Adult) Pulse 91 Temp 98.3 ??F (36.8 ??C) (Tympanic) Resp 16 Ht 5' 6 (1.676 m) Wt 103.4 kg (228 lb) SpO2 99% BMI 36.80 kg/m?? Physical Exam Vitals reviewed. Constitutional: General: She is not in acute distress. Cardiovascular: Rate and Rhythm: Normal rate and regular rhythm. Heart sounds: Normal heart sounds. Pulmonary: Breath sounds: Normal breath sounds. Musculoskeletal: Cervical back: Neck supple. Neurological: General: No focal deficit present. Mental Status: She is alert. Psychiatric: Mood and Affect: Mood normal. Behavior: Behavior normal. Thought Content: Thought content normal. Procedures Assessment ASSESSMENT and PLAN: 1. Nightmares associated with chronic post-traumatic stress disorder Start low dose medication. Warned of hypotension. Start 1 mg for one week, then update me on nightmares. Increase dose to 2 mg if tolerating. Titrateup to max dose 4 mg as tolerated. - prazosin (MINIPRESS) 1 mg capsule; Take 1-2 Capsules (1-2 mg) by mouth daily at bedtime. For nightmares. Dispense: 60 Capsule; Refill: 1 2. Moderate episode of recurrent major depressive disorder Continue with therapist and meds. Get EMDR set up. 3. Type 2 diabetes mellitus without complication, without long-term current use of insulin AIC good but wt loss plateaued. - tirzepatide (Mounjaro) 10 mg/0.5 mL Pen Injector; Inject 10 mg by subcutaneous injection every 7 days. Dispense: 6 mL; Refill: 1 - MICROALBUMIN/CREATININE RATIO, RANDOM UR - HEMOGLOBIN A1C - LIPID PANEL - TSH REFLEXIVE 4. Mixed hyperlipidemia Remain off fenofibrate. Recheck lipids with upcoming wellness labs. 5. Severe obesity (BMI 35.0-39.9) with comorbidity - tirzepatide (Mounjaro) 10 mg/0.5 mL Pen Injector; Inject 10 mg by subcutaneous injection every 7 days. Dispense: 6 mL; Refill: 1 FOLLOW UP Return in about 3 months (around 11/27/2023) for Diabetes, HTN. Appropriate medications prescribed and pt instructed in risks , benefits and side effects. Appropriate patient instructions provided . See details in AVS Medications and options explained to include common side effects. Understanding of medications, course, diagnosis, and expectations were expressed by patient/guardian. Pt advised to call my office in one week if not contacted with any ordered test results. KD Hoffman 08/27/2023 [facility] [address] [address] Some of this encounter may have been transcribed using [employer] Speaking computerized voicerecognition without a human custom dressmaker. This report may or may not have been adjusted for typographical or medical and syntax errors. TH CARE LIAISON documented in this encounter Miscellaneous Notes * Result Encounter Note - Luba Vuong ANP - 09/03/2023 9:24 AM CDT Contact patient regarding result. Blood sugar control is excellent. Urine normal and not anemic. Continue current treatment plan Get Fasting labs done at scheduled wellness visit. * Result Encounter Note - Henrietta Andrade RN - 08/28/2023 8:01 AM HEALTH CARE LIAISON LM asking pt to call back to discuss. Let pt know she can also read the mymercy message from Luba El TH CARE LIAISON * Patient Instructions - Luba Vuong ANP - 08/27/2023 2:29 PM HEALTH CARE LIAISON [place], [place] AND [place]. [phone] -- for the EMDR treatment option-- I think they have it. For the nightmares-- Start prazosin at bedtime, 1 mg dose. Slow in getting up in AM -- watch for lightheadeness. Update me in one week on night mustafa and how you feel in AM on medication. Consider increase by 1 mg weekly, up to 4 mg max daily dose. TH CARE LIAISON documented in this encounter Plan of Treatment Upcoming Encounters Date Type Department Care Team (Late st Contact Info) Description 06/20/2024 9:30 AM HEALTH CARE LIAISON Office Visit [facility] at the [facility] [address] [place] [phone] [place] [address] [place] [address] 10/27/2024 2:45 PM CDT Office Visit [facility] G[facility]enter[facility] [place] [address] [facility] [address] [place] [address] Bebo Benites MD [address] [facility] [place] [address] [place] [address] documented as of this encounter Procedures Procedure Name Priority Date/Time Associated Diagnosis Comments MICROALBUMIN/CREATIN INE RATIO, RANDOM UR Routine 08/27/2023 2:38 PM HEALTH CARE LIAISON Type 2 diabetes mellitus without complication, without long-term current use of insulin HEMOGLOBIN A1C Routine 08/27/2023 2:38 PM HEALTH CARE LIAISON Type 2 diabetes mellitus without complication, without long-term current use of insulin TSH REFLEXIVE Routine 08/27/2023 2:38 PM HEALTH CARE LIAISON Type 2 diabetes mellitus without complication, without long-term current use of insulin LIPID PANEL Routine 08/27/2023 2:38 PM HEALTH CARE LIAISON Type 2 diabetes mellitus without complication, without long-term current use of insulin documented in this encounter Results * HEMOGLOBIN A1C (08/27/2023 2:38 PM HEALTH CARE LIAISON) HEMOGLOBIN A1C 5.4 <5.7 % of total Hgb [facility] Comment: For the purpose of screening for the presence of diabetes: <5.7% ? Consistent with the absence of diabetes 5.7-6.4% ?Consistent with increased risk for diabetes ?(prediabetes) > or =6.5% ??Consistent with diabetes This assay result is consistent with a decreased risk of diabetes. Currently, no consensus exists regarding use of hemoglobin A1c for diagnosis of diabetes in children. According to [place] Diabetes Association (ADA) guidelines, hemoglobin A1c <7.0% represents optimal control in non- diabetic patients. Different metrics may apply to specific patient populations. Standards of Medical Care in Diabetes(ADA). ?? ESTIMATED AVERAGE GLUCOSE (MG/DL) 108 mg/dL [facility] ESTIMATED AVERAGE GLUCOSE (MMOL/L) 6.0 mmol/L [facility] Comment: ?? This test was performed on the [employer] Assistant [email or web address] platform. Please be advised that [facility] will move hemoglobin A1c testing to the [employer] platform soon. In general, direct comparison of the results from different platforms is not recommended. Test Performed at: [facility] [place] [address] [place], [place] ??[address] Molina Pascual Blood 08/27/2023 2:38 PM HEALTH CARE LIAISON 08/28/2023 12:19 AM HEALTH CARE LIAISON Luba Vuong [facility] CHEMISTRY ORDERABLES [facility] [phone] [place] [address] [place] [address] * MICROALBUMIN/CREATININE RATIO, RANDOM UR (08/27/2023 2:38 PM HEALTH CARE LIAISON) Creatinine, Urine 162 20 - 275 mg/dL [...] within a diagnostic category. Test Performed at: [facility] ??[phone] Molina Pascual MD Urine URINE SPECIMEN OBTAINED BY CLEAN CATCH PROCEDURE / Unknown 08/27/2023 2:38 PM HEALTH CARE LIAISON 08/28/2023 3:11 AM HEALTH CARE LIAISON Luba Vuong ANP URINE ORDERABLES Performing Organization Address City[facility] Co de Phone Number [facility] [phone] [facility] [address] [address] * TSH REFLEXIVE (08/27/2023 2:38 PM HEALTH CARE LIAISON) TSH TNP mIU/L [facility] Comment: TEST NOT PERFORMED No serum received. Test Performed at: [facility] [address] [place] [address] ??[phone] Molina Pascual MD Blood 08/27/2023 2:38 PM HEALTH CARE LIAISON 08/28/2023 12:19 AM HEALTH CARE LIAISON Lbua Vuong ANP CHEMISTRY ORDERABLES Performing Organization Address City[facility] Co de Phone Number [facility] [phone] [facility] [address] [address] * LIPID PANEL (08/27/2023 2:38 PM HEALTH CARE LIAISON) CHOLESTEROL TNP mg/dL [facility] Comment: TEST NOT PERFORMED No suitable specimen received. Please review the test requirements at [facility] HDL TNP mg/dL [facility] Comment: TEST NOT PERFORMED No suitable specimen received. Please review the test requirements at [email or web address] TRIGLYCERIDE TNP mg/dL [facility] Comment: TEST NOT PERFORMED No suitable specimen received. Please review the test requirements at [email or web address] LDL CALCULATED TNP mg/dL (calc) [facility] Comment: TEST NOT PERFORMED No suitable specimen received. Please review the test requirements at [facility] CHOL/HDL RATIO TNP (calc) [facility] Comment: TEST NOT PERFORMED No suitable specimen received. Please review the test requirements at [facility] TOTAL NON-HDL CHOL(LDL+VLDL) TNP mg/dL (calc) [facility] Comment: TEST NOT PERFORMED No suitable specimen received. Please review the test requirements at [facility] Test Performed at: [facility] [address] [place] ??[phone] CarolGuy Pascual Blood 08/27/2023 2:38 PM HEALTH CARE LIAISON 08/28/2023 12:19 AM HEALTH CARE LIAISON Luba Vuong [facility] CHEMISTRY ORDERABLES [facility] [phone] [facility] [address] [place] [address] documented in this encounter Visit Diagnoses Diagnosis Nightmares associated with chronic post-traumatic stress disorder- Primary Moderate episode of recurrent major depressive disorder Type 2 diabetes mellitus without complication, without long-term current use of insulin Mixed hyperlipidemia Severe obesity (BMI 35.0-39.9) with comorbidity documented in this encounter Additional Health Concerns Assessment Noted Time PHQ-9 Depression Total Score: 4 08/21/19 24 1:00 PM HEALTH CARE LIAISON documented as of this encounter Care Teams Striping Machine Operator Relationship Specialty Start Date End Date Elma Magaña MD [address] [place] [phone] PCP - General Family Practice 12/09/21 12/13/23 documented as of this encounter
--- OUTSIDE RECORDS SUMMARY | 2024-06-08 20:19 | XMS_ITS | Encounter Summary ---
Author Organization [employer] [facility] Address [address] [place] [address] Care Team Providers Care Supervisor Marble Name Role Phone Elma Magaña MD Primary Care Provider [phone] Reason for Visit * Reason Onset Date Comments Letter for School/Work 03/18/2022 Encounter Details Date Type Department Care Team (Late st Contact Info) Description 03/18/2022 Telephone [facility] [employer] [place] [address] [place] [address] Lis Nails FNP NO ADDRESS ON FILE Letter for School/Work Social History Tobacco Use Types Packs/Day Years [...] Exposure Response Date Recorded In the last 10 days, have yo u been in contact with someone who was confirmed or suspected to have Coronavirus/COVID-19? No / Unsure 03/03/2022 2:05 PM CDT documented as of this encounter Miscellaneous Notes * Telephone Encounter - Kim Gibbons - 03/18/2022 9:50 AM CDT Note placed and emailed to pt * Telephone Encounter - Lis Nails FNP - 03/18/2022 9:37 AM CDT Okay to provide patient with note to return to work. Thanks! * Telephone Encounter - Kim Gibbons - 03/18/2022 9:15 AM CDT Pt was seen at on 03/16/2022 after she had a 15lbs part fall on both feet. Per pt they did imaging and stated nothing was broken and that she just had bruising. They told her to RICE both feet. Ptis stating that she is needing a note stating that she is able to return to work. Pt returned yesterday. Can we give her a note? documented in this encounter Plan of Treatment Upcoming Encounters Date Type Department Care Team (Late st Contact Info) Description 06/20/2024 9:30 AM CERTIFIED REGISTERED NURSE PRACTITIONER Office Visit [facility] Orthopedic Surgery at the [facility] Medicine [address] [facility] [address] [place] [phone] [place] [address] [place] [address] 10/27/2024 2:45 PM CDT Office Visit [facility]ology [facility] [address] [facility] [address] [place] [address] Bebo Benites MD [address] [facility] [address] [place] [address] documented as of this encounter Visit Diagnoses Not on filedocumented in this encounter Additional Health Concerns Assessment Noted Time PHQ-9 Depression Total Score: 4 11/30/19 22 2:00 PM CDT documented as of this encounter Care Teams Supervisor Marble Relationship Specialty Start Date End [place] [address] PCP - General Family Practice 12/09/21 12/13/23 documented as of this encounter
--- OUTSIDE RECORDS SUMMARY | 2024-06-08 20:19 | XMS_ITS | Encounter Summary ---
Author Organization [facility] Address [address] [place] [address] Care Team Providers Care Buckle And Button Maker Name Role Phone Elma Magaña MD Primary Care Provider [phone] Reason for Visit * Reason Comments Medication Refill Encounter Details Date Type Department Care Team (Latest Contact Info) Description 12/16/2022 2:45 PM CDT Procedure visit [facility] [employer] [place] [address] [place] [phone] Encounter for issue of repeat prescription (Primary [...] as of this encounter Progress Notes * Kim Gibbons - 12/16/2022 2:46 PM CDT Lisinopril 10mg #100 QD no refills documented in this encounter Plan of Treatment Upcoming Encounters Date Type Department Care Team (Late st Contact Info) Description 06/20/2024 9:30 AM SAXOPHONE TEACHER Office Visit [facility] Orthopedic Surgery at the [facility] [address] [facility] [address] [place] [address] [place] [address] [facility] [address] [place] [address] 10/27/2024 2:45 PM CDT Office Visit [facility] Gastroenterology [facility] [address] [facility] [address] [place] [phone] Bebo Benites MD [address] [facility] [address] [place] [address] documented as of this encounter Visit Diagnoses Diagnosis Encounter for issue of repeat prescription- Primary Issue of repeat prescriptions documented in this encounter Additional Health Concerns Assessment Noted Time PHQ-9 Depression Total Score: 3 07/04/19 23 9:00 AM SAXOPHONE TEACHER documented as of this encounter Care Teams Buckle And Button Maker Relationship Specialty Start Date End Date Elma Magaña MD [address] [place] [address] PCP - General Family Practice 12/09/21 12/13/23 documented as of this encounter
--- OUTSIDE RECORDS SUMMARY | 2024-06-08 20:19 | XMS_ITS | Encounter Summary ---
Author Organization [facility] Address [address] [place] [address] Care Team Providers Care Operational Risk Manager Name Role Phone Elma Magaña MD Primary Care Provider [phone] Reason for Visit * Reason Comments Gland Swelling Swollen lymph nodes around neck Head Pressure Encounter Details Date Type Department Care Team (Late st Contact Info) Description 09/16/2022 11:00 AM CDT Office Visit [facility] at Work [employer] [place] [address] [place] [address] Elma Magaña MD [address] [place] [address] Acute intractable headache, unspecified headache type (Primary Dx); Type 2 diabetes mellitus without complication, without long-term current use of insulin; Lymph node enlargement Social History Tobacco Use Types Packs/Day Years [...] Sign Reading Time Taken Comments Blood Pressure 128/78 09/16/2022 10:58 AM CDT Pulse 99 09/16/2022 10:58 AM CDT Temperature 36.7 ??C (98 ??F) 09/16/2022 10:58 AM CDT Respiratory Rate 18 09/16/2022 10:58 AM CDT Oxygen Saturation 98% 09/16/2022 10:58 AM CDT Inhaled Oxygen Concentration - - Weight 111.1 kg (245 lb) 09/16/2022 10:58 AM CDT Height 167.6 cm (5' 6 ) 09/16/2022 10:58 AM CDT Body Mass Index 39.54 09/16/2022 10:58 AM CDT documented in this encounter Progress Notes * Elma Magaña MD - 09/16/2022 11:10 AM CDT OFFICE VISIT PROGRESS NOTE DATE: 09/16/2022 PATIENT: Lis Phelan : 1985 PCP: Elma Magaña MD Chief Complaint Patient presents with Gland Swelling Swollen lymph nodes around neck Head Pressure HISTORY OF PRESENT ILLNESS 37 yo wf here for lymph node swelling that started 7 days ago. Initially she noticed them on her right side, then she has had them swell up on the right side. She also has had a terrible headache for 1 weeks. She describes this headache as severe pressure. No fever or chills. No body aches or increased fatigue. No facial pain. No rhinorrhea or nasal congestion. No eye symptoms, except that she feels the pressure headache behind her eyes as well. No ear pain, drainage, muffled hearing. She does feel pressure in her ears. No pnd or sore throat. No cough, wheeze, sob. No cp or irregular heart beat. No change in chronic abd pain. No change in appetite. No nausea or diarrhea. No rash or skin change. No loss of smell or taste. Her may have the flu. He developed symptoms 4 days ago. She did not get a flu shot this year. She has been taking ibuprofen for her headache - it only helps a bit. PAST MEDICAL HISTORY: Past Medical History: Diagnosis Date Arthritis Asthma well controlled Biliary dyskinesia Change in bowel habit Depression Diabetes mellitus Difficult intravenous access VERY hard IV stick use requests ultrasound Eosinophilic esophagitis Eosinophilic esophagitis GERD (gastroesophageal reflux disease) Headache History of shingles HTN (hypertension), benign 12/29/2020 Hyperlipidemia PAST SURGICAL HISTORY Past Surgical History: Procedure Laterality Date HX CARPAL TUNNEL RELEASE Right 06/11/2021 RIGHT CARPAL TUNNEL RELEASE performed by Paddy Mackey MD at [facility] OR HX GASTROSCHISIS CLOSURE HX HAND SURGERY Right 4th digit HX RHINOPLASTY Bilateral 12/20/2020 HX SURGICAL OTHER 04/2004 adhesion removed HX TURBINATE RESECTION Right 12/20/2020 WI CHOLECYSTECTOMY N/A 11/03/2019 OPEN CHOLECYSTECTOMY performed by Gabbie Wheeler MD at [facility] OR MAIN WI COLONOSCOPY FLX DX W/COLLJ SPEC WHEN PFRMD N/A 02/10/2022 checkout COLONOSCOPY performed by Bebo Benites MD at [facility] GI LAB WI ESOPHAGOGASTRODUODENOSCOPY TRANSORAL DIAGNOSTIC N/A 05/17/2019 ESOPHAGOGASTRODUODENOSCOPY performed by Jena Cerda MD at [facility] GI LAB WI ESOPHAGOGASTRODUODENOSCOPY TRANSORAL DIAGNOSTIC N/A 02/10/2022 checkout ESOPHAGOGASTRODUODENOSCOPY performed by Bebo Benites MD at [facility] GI LAB CURRENT MEDICATIONS Current Outpatient Medications Medication Sig Dispense Refill tirzepatide (Mounjaro) 2.5 mg/0.5 mL Pen Injector Inject 2.5 mg by subcutaneous injection every 7 days. 2 mL 0 fluticasone propionate (FLONASE) 50 mcg/spray [place], Suspension nasal inhaler Administer 2 Sprays in each nostril daily. 16 Gram 0 sertraline (ZOLOFT) 100 mg tablet Take 1 Tablet (100 mg) by mouth daily. 30 Tablet 0 lisinopriL (PRINIVIL) 10 mg tablet Take 1 Tablet (10 mg) by mouth daily. 90 Tablet 0 Ashlyna 0.15 mg-30 mcg (84)/10 mcg (7) Tablet, Dose Pack, 3 Months Take 1 tablet by mouth once daily 91 Tablet 0 metFORMIN (GLUCOPHAGE) 500 mg tablet Take 1 Tablet (500 mg) by mouth 2 times daily with meals. 180 Tablet 0 buPROPion HCL (WELLBUTRIN SR) 150 mg Sustained Release 12 hour tablet Take 1 Tablet (150 mg) by mouth 2 times daily. 180 Tablet 0 cholecalciferol, vitamin D3, 1,000 unit Take by mouth. dicyclomine (BENTYL) 10 mg capsule Take 1 Capsule (10 mg) by mouth 3 times daily. 90 Capsule 6 pantoprazole (PROTONIX) 40 mg Tablet, Delayed Release (E.C.) Take 1 Tablet (40 mg) by mouth daily. 90 Tablet 4 fenofibrate (LOFIBRA) 160 mg Tablet Take 1 Tablet (160 mg) by mouth daily. 90 Tablet 1 ALPRAZolam (XANAX) 0.25 mg tablet Take 1 Tablet (0.25 mg) by mouth 2 times daily as needed for Anxiety. 15 Tablet 0 albuterol sulfate 90 mcg/Actuation inhaler Take 1-2 Puffs by inhalation every 4 hours as needed forShortness of Breath or Wheezing. 6.7 Gram 6 rosuvastatin (CRESTOR) 40 mg tablet Take 1 Tablet (40 mg) by mouth daily at bedtime. 90 Tablet 2 cetirizine (ZyrTEC) 10 mg tablet Take 10 mg by mouth daily. [DISCONTINUED] Ozempic 0.25 mg or 0.5 mg(2 mg/1.5 mL) Pen Injector INJECT 0.5MG SUBCUTANEOUSLY ONCEA WEEK 6 mL 0 No current facility-administered medications for this visit. ALLERGIES Allergies Allergen Reactions Tramadol Hives Varenicline Anaphylaxis Metronidazole Nausea and Vomiting Other reaction(s): Vomiting Meperidine Swelling TOBACCO COUNSELING She is not a tobacco user. REVIEW OF SYSTEMS As in HPI PHYSICAL EXAMINATION BP 128/78 (BP Location: Left arm, Patient Position (BP): Sitting, BP Cuff Size: Large Adult) Pulse 99 Temp 98 ??F (36.7 ??C) (Tympanic) Resp 18 Ht 5' 6 (1.676 m) Wt 111.1 kg (245 lb) LMP(LMP Unknown) SpO2 98% BMI 39.54 kg/m?? Gen - AAO, NAD Head- normocephalic/atraumatic. Eyes - PERRL, EOMI, noninjected Ears - pinna appear normal, canals clear, TMs with bilateral clear effusion, no bulging, landmarks visible. No erythema. Nose - nasal mucosa pink and moist. Mouth - mucosa pink and moist. Posterior pharynx with cobblestoning. No exudate. Neck - Supple, no thyroid masses. Lymph nodes feel <1cm, but are tender bilateral anterior cervical, posterior auricular. Heart - RRR, no m/r/g Lungs - CTAB, no w/r/r Abd - soft, NT/ND, normal bowel sounds x 4 Ext - no c/c/e. Normal peripheral pulses Neuro - Facial features symmetric. Normal speech and voice. Normal gait. A/P Lis was seen today for gland swelling and head pressure. Diagnoses and all orders for this visit: Acute intractable headache, unspecified headache type - fluticasone propionate (FLONASE) 50 mcg/spray [place], Suspension nasal inhaler; Administer 2 Sprays in each nostril daily. Type 2 diabetes mellitus without complication, without long-term current use of insulin - tirzepatide (Mounjaro) 2.5 mg/0.5 mL Pen Injector; Inject 2.5 mg by subcutaneous injection every 7 days. Lymph node enlargement Start flonase, use aleve, afrin, and nasal saline. Call with update if not improving. Switching from ozempic to mounjaro b/c patient hasn't been able to obtain ozempic due to shortages. PATIENT INSTRUCTIONS Buy afrin nasal spray over the counter and use 2-3 sprays in each nostril 2X/day for 3 days, then STOP. Use nasal saline (ocean spray or simply saline) 4-5X/day. Put a cool mist humidifier in your room at night. Make sure to clean it daily. Start OTC aleve - 2 tabs every 12 hours with a meal for the next 3 days as well. Contact us with an update if symptoms aren't improving. Make sure to use back up contraception if you become sexually active - use a condom - b/c the mounjaro may make the control less effective. Call with severe side effects to med. FOLLOW UP Return for follow-up if condition is not improving. Elma Magaña MD 09/16/2022 [facility] AT [address] [address] documented in this encounter Miscellaneous Notes * Patient Instructions - Elma Magaña MD - 09/16/2022 11:30 AM CDT Buy afrin nasal spray over the counter and use 2-3 sprays in each nostril 2X/day for 3 days, then STOP. Use nasal saline (ocean spray or simply saline) 4-5X/day. Put a cool mist humidifier in your room at night. Make sure to clean it daily. Start OTC aleve - 2 tabs every 12 hours with a meal for the next 3 days as well. Contact us with an update if symptoms aren't improving. Make sure to use back up contraception if you become sexually active - use a condom - b/c the mounjaro may make the control less effective. Call with severe side effects to med. MONOGRAPH TITLE: Oral Contraceptives/Tirzepatide SEVERITY LEVEL: 2-Severe Interaction: Action is required to reduce the risk of severe adverse interaction. CLINICAL EFFECTS: Tirzepatide may result in decreased levels and effectiveness of oral contraceptives.(1) Interacting Medications/Orders: ORAL CONTRACEPTIVES TIRZEPATIDE Ashlyna Order ([id number]): Ashlyna 0.15 mg-30 mcg (84)/10 mcg (7) Tablet, Dose Pack, 3 Months Route: none Start: 06/30/2022 End: none Frequency: Mounjaro Order: Mounjaro 2.5 mg/0.5 mL subcutaneous pen injector (tirzepatide) Route: subCUT Start: 09/16/2022 End: none Frequency: EVERY 7 DAYS MECHANISM OF ACTION: Tirzepatide delays gastric emptying, which may result in decreased oral contraceptive absorption.(1) PREDISPOSING FACTORS: None determined. PATIENT MANAGEMENT: The glass beveler of tirzepatide states patients should be advised to switch from oral hormonal contraceptives to a non-oral contraceptive method or to add a barrier method of contraception. Patients should use a non- oral contraceptive or barrier method of contraception for 4 weeks after starting tirzepatide and for 4 weeks after each dose escalation of tirzepatide.(1) Hormonalcontraceptives that are not administered orally are not expected to be affected by tirzepatide.(1) DISCUSSION: In a pharmacokinetic study, a single dose of tirzepatide 5 mg with combined oral contraceptive (0.035 mg ethinyl estradiol and 0.25 mg norgestimate) decreased the mean concentration maximum (Cmax) of ethinyl estradiol, norgestimate, and norelgestromin by 59%, 66%, and 55%, respectively, while mean lxmo-bfano-iimuw (AUC) was reduced by 20%, 21%, and 23%, respectively.(1) A study in rats, tirzepatide caused growth restrictions and abnormalities at clinical exposure. A study in rabbits, tirzepatide caused growth restrictions at clinically relevant e xposures.(1) REFERENCE: 1.Rakanlorrijericamalika (tirzepatide) [place] prescribing information. [employer] Oct, 2021. documented in this encounter Plan of Treatment Upcoming Encounters Date Type Department Care Team (Late st Contact Info) Description 06/20/2024 9:30 AM SALESPERSON PARTS Office Visit [facility] Orth[facility] Surgery at the [facility] [address] [place] [address] [place] [address] [place] [address] 10/27/2024 2:45 PM CDT Office Visit [facility] G[facility]ology [facility] [address] [place] [phone] Bebo Benites MD [address] [place] [address] documented as of this encounter Visit Diagnoses Diagnosis Acute intractable headache, unspecified headache type- Primary Type 2 diabetes mellitus without complication, without long-term current use of insulin Lymph node enlargement Enlargement of lymph nodes documented in this encounter Additional Health Concerns Assessment Noted Time PHQ-9 Depression Total Score: 3 07/04/19 23 9:00 AM SALESPERSON PARTS documented as of this encounter Care Teams Operational Risk Manager Relationship Specialty Start Date End Date Elma Maagña MD [address] [place] [address] PCP - General Family Practice 12/09/21 12/13/23 documented as of this encounter
--- OUTSIDE RECORDS SUMMARY | 2024-06-08 20:19 | XMS_ITS | Encounter Summary ---
Author Organization [facility] Address [address] [place] [address] Care Team Providers Care Paper Reeler Name Role Phone Elma Magaña MD Primary Care Provider [phone] Reason for Visit * Reason Onset Date Comments Medication Refill 10/07/2022 Encounter Details Date Type Department Care Team (Late st Contact Info) Description 10/07/2022 Refill [facility] [employer] [place] [address] [place] [address] Elma Magaña MD [address] [place] [address] Moderate episode of recurrent major depressive disorder Social History Tobacco Use Types Packs/Day Years [...] * Telephone Encounter - Kim Gibbons - 10/07/2022 7:27 AM CDT Sertraline Last refilled: 09/05/2022 Quantity given: 30 Number of refills: 0 Bupropion Last refilled: 03/03/2022 Quantity given: 180 Number of refills: 0 Last appointment: 09/16/2022 Next appointment: 10/08/2022 documented in this encounter Plan of Treatment Upcoming Encounters Date Type Department Care Team (Late st Contact Info) Description 06/20/2024 9:30 AM TEACHER PRIVATE Office Visit [facility] Orthopedic Surgery at the [facility] [address] [place] [address] [place] [address] [place] [address] 10/27/2024 2:45 PM CDT Office Visit [facility] Gastroenterology [facility] [address] [place] [address] Bebo Benites MD [address] [place] [address] documented as of this encounter Visit Diagnoses Diagnosis Moderate episode of recurrent major depressive disorder documented in this encounter Additional Health Concerns Assessment Noted Time PHQ-9 Depression Total Score: 3 07/04/19 23 9:00 AM TEACHER PRIVATE documented as of this encounter Care Teams Paper Reeler Relationship Specialty Start Date End Date Elma Magaña MD [address] [place] [address] PCP - General Family Practice 12/09/21 12/13/23 documented as of this encounter
--- OUTSIDE RECORDS SUMMARY | 2024-06-08 20:19 | XMS_ITS | Encounter Summary ---
Author Organization [facility] Address [address] [place] [address] Care Team Providers Care Hearing Therapist Name Role Phone Elma Magaña MD Primary Care Provider [phone] Reason for Visit * Reason Comments Med Refill Encounter Details Date Type Department Care Team (Late st Contact Info) Description 08/10/2023 Refill [facility] [employer] [place] [address] [place] [address] Elma Magaña MD [address] [place] [address] Type 2 diabetes mellitus without complication, [...] encounter Miscellaneous Notes * Telephone Encounter - Ness Kidd - 08/10/2023 3:53 PM CST Called pt aware of message. Script will be ready for nut picker tomorrow afternoon. CTOR OF EMAIL MARKETING * Telephone Encounter - Ness Kidd - 08/10/2023 3:15 PM CST Last refilled: 07/02/23 Quantity given: 30 Number of refills: 0 Pt is scheduled for a f/u appt on 08/26 with casey CTOR OF EMAIL MARKETING * Telephone Encounter - Elma Magaña MD - 08/10/2023 3:08 PM CST Please schedule her a f/u dm visit. It was due in [place] CTOR OF EMAIL MARKETING * Telephone Encounter - Ness Kidd - 08/10/2023 2:21 PM CST Last refilled: 05/06/23 Quantity given: 6mL Number of refills: 0 Last appointment: 07/28/23 Next appointment: 08/27/23 Last Labs: 01/14/23 CTOR OF EMAIL MARKETING documented in this encounter Plan of Treatment Upcoming Encounters Date Type Department Care Team (Late st Contact Info) Description 06/20/2024 9:30 AM DIRECTOR OF EMAIL MARKETING Office Visit [facility] Orthopedic Surgery at the [facility] [address] [facility] [address] [place] [address] [place] [address] [place] [address] 10/27/2024 2:45 PM CDT Office Visit [facility] Gastroenterology [facility] [address] [place] [address] Bebo Benites MD [address] [facility] [address] [place] [address] documented as of this encounter Visit Diagnoses Diagnosis Type 2 diabetes mellitus without complication, without long-term current use of insulin documented in this encounter Additional Health Concerns Assessment Noted Time PHQ-9 Depression Total Score: 5 07/10/19 24 1:00 PM DIRECTOR OF EMAIL MARKETING documented as of this encounter Care Teams Hearing Therapist Relationship Specialty Start Date End Date Elma Magaña MD [address] [place] [phone] PCP - General Family Practice 12/09/21 12/13/23 documented as of this encounter
--- OUTSIDE RECORDS SUMMARY | 2024-06-08 20:19 | XMS_ITS | Encounter Summary ---
Author Organization [facility] Address [address] [place] [address] Care Team Providers Care Position Clerk Name Role Phone Bijal Wolfe MD Primary Care Provider [phone] Encounter Details Date Type Department Care Team (Late st Contact Info) Description 03/15/2024 External Device Data ST[facility] ABSTRACTION Provider, [...] 06/20/2024 9:30 AM TEACHER PRIVATE Office Visit [facility] Orthopedic Surgery at the [facility] Medicine [address] [facility] [address] [place] [address] [place] [address] [place] [address] 10/27/2024 2:45 PM CDT Office Visit [facility] G[facility]enterology [facility] [address] [place] [address] Bebo Benites MD [address] [phone] documented as of this encounter Visit Diagnoses Not on filedocumented in this encounter Additional Health Concerns Assessment Noted Time PHQ-9 Depression Total Score: 4 08/21/19 24 1:00 PM TEACHER PRIVATE documented as of this encounter Care Teams Position Clerk Relationship Specialty Start Date End Date Bijal Wolfe MD [address] [place] [phone] PCP - General Internal Medicine 12/14/23 documented as of this encounter
--- OUTSIDE RECORDS SUMMARY | 2024-06-08 20:19 | XMS_ITS | Encounter Summary ---
Author Organization [facility] Address [address] Attn: [place] [address] Care Team Providers Care School Counsellor Name Role Phone Elma Magaña MD Primary Care Provider Encounter Details Date Type Department Care Team (Latest Contact Info) Description 03/25/2023 Travel Social History Tobacco Use Types Packs/Day [...] st Contact Info) Description 06/20/2024 9:30 AM TRUCK CRANE OPERATOR Office Visit [facility] Orthopedic Surgery at the [facility] [place] Medicine [address] [place] [address] [place] [address] [place] [address] 10/27/2024 2:45 PM CDT Office Visit [facility] Gastroenterology [facility] [address] [place] [address] Bebo Benites MD [address] [address] documented as of this encounter Visit Diagnoses Not on filedocumented in this encounter Additional Health Concerns Assessment Noted Time PHQ-9 Depression Total Score: 3 07/04/19 23 9:00 AM TRUCK CRANE OPERATOR documented as of this encounter Care Teams School Counsellor Relationship Specialty Start Date End Date Elma Magaña MD [address] [facility] [place] [address] PCP - General Family Practice 12/09/21 12/13/23 documented as of this encounter
--- OUTSIDE RECORDS SUMMARY | 2024-06-08 20:19 | XMS_ITS | Encounter Summary ---
Author Organization [facility] Address [address] [place] [address] Care Team Providers Care Customer Operations Intern Name Role Phone Elma Magaña MD Primary Care Provider [phone] Reason for Visit * Reason Comments Labs Only Encounter Details Date Type Department Care Team (Latest Contact Info) Description 10/20/2022 2:55 PM CDT Procedure [facility] [employer] [place] [address] [place] [phone] Screening for condition Social History Tobacco Use [...] encounter Progress Notes * Kim Gibbons - 10/20/2022 3:02 PM CDT Pt came in to do a repeat urine culture. documented in this encounter Miscellaneous Notes * Result Encounter Note - Lis Nails FNP - 10/23/2022 7:08 AM CDT Lis- Your urine culture shows no growth. Lis Burnham NP documented in this encounter Plan of Treatment Upcoming Encounters Date Type Department Care Team (Late st Contact Info) Description 06/20/2024 9:30 AM REIMBURSEMENT SPEC Office Visit [facility] Orthopedic Surgery at the [facility] Medicine [address] [facility] [facility] [place] [address] [place] [address] [place] [address] 10/27/2024 2:45 PM CDT Office Visit [facility] Gastroenterology [facility] [address] [place] [address] Bebo Benites MD [address] [facility] [facility] [address] [place] [address] documented as of this encounter Procedures Procedure Name Priority Date/Time Associated Diagnosis Comments URINE CULTURE Routine 10/20/2022 3:01 PM CDT Screening for condition documented in this encounter Results * URINE CULTURE (10/20/2022 3:01 PM CDT) URINE CULTURE SEE NOTE [facility] Will Comment: ??CULTURE, URINE, ROUTINE ?Micro Number: ?[id number] ??Test Status: ? Final ??Specimen Source: ?? Urine, clean catch ??Specimen Quality: ??Adequate ??Result: ?No Growth Test Performed at: [place] [address] [place], [place] ??[address] Molina Briseno Urine URINE SPECIMEN OBTAINED BY CLEAN CATCH PROCEDURE / Unknown 10/20/2022 3:01 PM CDT 10/21/2022 2:59 AM CDT Lis GONSALESP MICROBIOLOGY - GENERAL ORDERABLES [facility] [phone] [place] [address] [place] [address] documented in this encounter Visit Diagnoses Diagnosis Screening for condition Screening for unspecified condition documented in this encounter Additional Health Concerns Assessment Noted Time PHQ-9 Depression Total Score: 3 07/04/19 23 9:00 AM REIMBURSEMENT SPEC documented as of this encounter Care Teams Customer Operations Intern Relationship Specialty Start Date End Date Elma Magaña MD [address] [place] [phone] PCP - General Family Practice 12/09/21 12/13/23 documented as of this encounter
--- OUTSIDE RECORDS SUMMARY | 2024-06-08 20:19 | XMS_ITS | Encounter Summary ---
Author Organization [facility] Address [address] [facility] [address] [place] [address] Care Team Providers Care Sql Etl Developer Name Role Phone Elma Magaña MD Primary Care Provider [phone] Reason for Visit * Reason Comments Facial Pain Pain on Rt side of f isacc around the Rt eye socket. Encounter Details Date Type Department Care Team (Latest Contact Info) Description 06/25/2023 1:15 PM NURSE CLINICIAN Office Visit [facility] [place] [address] [address] Tiffanie Wolf, STAMP MOUNTER [address] [address] Acute rhinosinusitis (Primary Dx) Social History Tobacco Use Types [...] Sign Reading Time Taken Comments Blood Pressure 131/92 06/25/2023 2:06 PM NURSE CLINICIAN Pulse 106 06/25/2023 2:06 PM NURSE CLINICIAN Temperature 37 ??C (98.6 ??F) 06/25/2023 2:06 PM NURSE CLINICIAN Respiratory Rate 20 06/25/2023 2:06 PM NURSE CLINICIAN Oxygen Saturation 97% 06/25/2023 2:06 PM NURSE CLINICIAN Inhaled Oxygen Concentration - - Weight 99.8 kg (220 lb) 06/25/2023 2:06 PM NURSE CLINICIAN Height 167.6 cm (5' 6 ) 06/25/2023 2:06 PM NURSE CLINICIAN Body Mass Index 35.51 06/25/2023 2:06 PM NURSE CLINICIAN documented in this encounter Patient Instructions * Attachments The following attachments cannot be sent through Care Everywhere. * Sinusitis: Acute (French) documented in this encounter Progress Notes * Tiffanie Wolf, STAMP MOUNTER - 06/25/2023 1:15 PM CST HISTORY OF PRESENT ILLNESS Lis Phelan, a 38 y.o. female presents with a Chief Complaint of Facial Pain (Pain on Rt side offace around the Rt eye socket.) Subjective Facial Pain Lis Phelan, a 38 y.o. female presents with a Chief Complaint of right facial and eye pain goingonto right ear. Pt states had covid about 2-3 weeks ago and all symptoms have resolved except rightfacial pain. Pt has tried OTC medications without relief. REVIEW OF SYSTEMS Review of Systems Constitutional: Negative. HENT: Positive for congestion, ear pain, sinus pressure and sinus pain. Eyes: Negative for photophobia, pain, discharge, redness, itching and visual disturbance. Respiratory: Negative. Cardiovascular: Negative. Skin: Negative. Neurological: Negative. Objective PHYSICAL EXAM BP (!) 131/92 Pulse (!) 106 Temp 98.6 ??F (37 ??C) (Oral) Resp 20 Ht 5' 6 (1.676 m) Wt 99.8 kg (220 lb) SpO2 97% BMI 35.51 kg/m?? Physical Exam Constitutional: General: She is not in acute distress. Appearance: Normal appearance. She is not ill-appearing or toxic-appearing. HENT: Right Ear: Hearing normal. Tympanic membrane is bulging. Left Ear: Hearing, tympanic membrane and ear canal normal. Nose: Congestion present. Right Turbinates: Swollen. Right Sinus: Maxillary sinus tenderness present. Eyes: Pupils: Pupils are equal, round, and reactive to light. Cardiovascular: Rate and Rhythm: Normal rate and regular rhythm. Heart sounds: Normal heart sounds. Pulmonary: Effort: Pulmonary effort is normal. Breath sounds: Normal breath sounds. Neurological: Mental Status: She is alert. Procedures Assessment ASSESSMENT and PLAN: ICD-10-CM ICD-9-CM 1. Acute rhinosinusitis J01.90 461.9 MDM: Patient is hemodynamically stable and non-septic appearing.Pt. Is appropriate for discharge home at this time in the setting of strict return/follow-up precautions to include s/s warranting immediate emergency department evaluation. Differential Diagnosis: Rhino sinusitis, periorbital cellulitis, otitis media. Antibiotics as directed till completed. Flonase daily Take tylenol or ibuprofen for pain or fever. Take OTC medications to treat your symptoms, such as mucinex for congestion and delsym for cough. Get plenty of rest Increase you fluids. Follow up with your PCP as needed. Go to the emergency room for SOB, difficulty breathing, chest pain or any other concerning symptoms. Reviewed plan of care and follow up with the patient. Answered patient's questions related to diagnosis, plan. Patient verbalizes understanding and agreement. E CLINICIAN documented in this encounter Miscellaneous Notes * Patient Instructions - Tiffanie Wolf NP - 06/25/2023 1:15 PM CST Antibiotics as directed till completed. Flonase daily Take tylenol or ibuprofen for pain or fever. Take OTC medications to treat your symptoms, such as mucinex for congestion and delsym for cough. Get plenty of rest Increase you fluids. Follow up with your PCP as needed. Go to the emergency room for SOB, difficulty breathing, chest pain or any other concerning symptoms. E CLINICIAN documented in this encounter Plan of Treatment Upcoming Encounters Date Type Department Care Team (Late st Contact Info) Description 06/20/2024 9:30 AM NURSE CLINICIAN Office Visit [facility] Orthopedic Surgery at the [facility] Medicine [address] [facility] [address] [place] [address] [place] [address] [place] [address] 10/27/2024 2:45 PM CDT Office Visit [facility] Gastroenterology [facility] [address] [place] [phone] Bebo Benites MD [address] [facility] [address] [place] [phone] documented as of this encounter Visit Diagnoses Diagnosis Acute rhinosinusitis- Primary Acute sinusitis, unspecified documented in this encounter Additional Health Concerns Assessment Noted Time PHQ-9 Depression Total Score: 3 07/04/19 23 9:00 AM NURSE CLINICIAN documented as of this encounter Care Teams Sql Etl Developer Relationship Specialty Start Date End Date Elma Magaña MD [address] [place] [phone] PCP - General Family Practice 12/09/21 12/13/23 documented as of this encounter
--- OUTSIDE RECORDS SUMMARY | 2024-06-08 20:19 | XMS_ITS | Encounter Summary ---
Author Organization [facility] Address [address] [place] [address] Care Team Providers Care Clinical Business Manager Name Role Phone Elma Magaña MD Primary Care Provider [phone] Reason for Visit * Reason Comments Med Refill Encounter Details Date Type Department Care Team (Late st Contact Info) Description 03/12/2022 Refill [facility] [place] [address] [place] [phone] Lis Nails, ANA NO ADDRESS ON FILE Encounter for BCP initial prescription; Type 2 diabetes mellitus without complication, without [...] PM CDT documented as of this encounter Plan of Treatment Upcoming Encounters Date Type Department Care Team (Late st Contact Info) Description 06/20/2024 9:30 AM BATCH BLENDER Office Visit [facility] Orthopedic Surgery at the [facility] [address] [facility] [address] [place] [address] [place] [address] [address] [place] [address] 10/27/2024 2:45 PM CDT Office Visit [facility] Gastroenterology [facility] [address] [facility] [address] [place] [phone] Bebo Benites MD [address] [facility] [address] [place] [address] documented as of this encounter Visit Diagnoses Diagnosis Encounter for BCP initial prescription General counseling for prescription of oral contraceptives Type 2 diabetes mellitus without complication, without long-term current use of insulin documented in this encounter Additional Health Concerns Assessment Noted Time PHQ-9 Depression Total Score: 4 11/30/19 22 2:00 PM CDT documented as of this encounter Care Teams Clinical Business Manager Relationship Specialty Start Date End Date Elma Magaña MD [address] [place] [phone] PCP - General Family Practice 12/09/21 12/13/23 documented as of this encounter
--- OUTSIDE RECORDS SUMMARY | 2024-06-08 20:19 | XMS_ITS | Encounter Summary ---
Author Organization [facility] Address [address] [place] [address] Care Team Providers Care Cattle Dipper Name Role Phone Elma Magaña MD Primary Care Provider [phone] Reason for Visit * Reason Comments Follow Up Encounter Details Date Type Department Care Team (Late st Contact Info) Description 11/12/2022 9:00 AM CDT Office Visit [facility] at [facility] [employer] [place] [address] [place] [address] Elma Magaña MD [address] [place] [phone] Type 2 diabetes mellitus without complication, without long-term current use of insulin (Primary Dx) Social History Tobacco Use Types [...] Sign Reading Time Taken Comments Blood Pressure 122/80 11/12/2022 9:04 AM CDT Pulse 77 11/12/2022 9:04 AM CDT Temperature 36.9 ??C (98.5 ??F) 11/12/2022 9:04 AM CD T Respiratory Rate 18 11/12/2022 9:04 AM CDT Oxygen Saturation 98% 11/12/2022 9:04 AM CDT Inhaled Oxygen Concentration - - Weight 109.8 kg (242 lb) 11/12/2022 9:04 AM CDT Height 167.6 cm (5' 6 ) 11/12/2022 9:04 AM CDT Body Mass Index 39.06 11/12/2022 9:04 AM CDT documented in this encounter Progress Notes * Elma Magaña MD - 11/12/2022 9:13 AM CDT OFFICE VISIT PROGRESS NOTE DATE: 11/12/2022 PATIENT: Lis Phelan : 1985 PCP: Elma Magaña MD Chief Complaint Patient presents with Follow Up HISTORY OF PRESENT ILLNESS 37 yo wf here for f/u. She has done well with increased dose of mounjaro. She is snacking less, hasdecreased soda, drinking more water. She is using smaller plates, eating less seconds. She is eating vegetables with her meals. She is eating a lot of fruit as well. She isn't sure how much protein she is getting. PAST MEDICAL HISTORY: Past Medical History: Diagnosis [...] RELEASE performed by Paddy Mackey MD at [facility] CC OR HX GASTROSCHISIS CLOSURE HX HAND SURGERY Right 4th digit HX RHINOPLASTY Bilateral 12/20/2020 HX SURGICAL OTHER 04/2004 adhesion removed HX TURBINATE RESECTION Right 12/20/2020 ME CHOLECYSTECTOMY N/A 11/03/2019 OPEN CHOLECYSTECTOMY performed by Gabbie Wheeler MD at [facility] OR MAIN ME COLONOSCOPY FLX DX W/COLLJ SPEC WHEN PFRMD N/A 02/10/2022 checkout COLONOSCOPY performed by Bebo Benites MD at [facility] GI LAB ME ESOPHAGOGASTRODUODENOSCOPY TRANSORAL DIAGNOSTIC N/A 05/17/2019 ESOPHAGOGASTRODUODENOSCOPY performed by Jena Cerda MD at [facility] GI LAB ME ESOPHAGOGASTRODUODENOSCOPY TRANSORAL DIAGNOSTIC N/A 02/10/2022 checkout ESOPHAGOGASTRODUODENOSCOPY performed by Bebo Benites MD at [facility] GI LAB CURRENT MEDICATIONS Current Outpatient Medications Medication Sig Dispense Refill tirzepatide (Mounjaro) 7.5 mg/0.5 mL Pen Injector Inject 0.5 mL (7.5 mg) by subcutaneous injection every 7 days. 2 mL 0 sertraline (ZOLOFT) 100 mg tablet Take 1 Tablet (100 mg) by mouth daily. 90 Tablet 0 buPROPion HCL (WELLBUTRIN SR) 150 mg Sustained Release 12 hour tablet Take 1 Tablet (150 mg) by mouth 2 times daily. 180 Tablet 0 Ashlyna 0.15 mg-30 mcg (84)/10 mcg (7) Tablet, Dose Pack, 3 Months Take 1 tablet by mouth once daily 91 Tablet 0 fluticasone propionate (FLONASE) 50 mcg/spray [place], Suspension nasal inhaler Administer 2 Sprays in each nostril daily. 16 Gram 0 lisinopriL (PRINIVIL) 10 mg tablet Take 1 Tablet (10 mg) by mouth daily. 90 Tablet 0 metFORMIN (GLUCOPHAGE) 500 mg tablet Take 1 Tablet (500 mg) by mouth 2 times daily with meals. 180 Tablet 0 cholecalciferol, vitamin D3, 1,000 [...] Take 10 mg by mouth daily. [DISCONTINUED] tirzepatide (Mounjaro) 5 mg/0.5 mL Pen Injector Inject 5 mg by subcutaneous injection every 7 days. 2 mL 0 No current facility-administered medications for this visit. ALLERGIES Allergies Allergen Reactions Tramadol Hives Varenicline Anaphylaxis Metronidazole Nausea and Vomiting Other reaction(s): Vomiting Meperidine Swelling TOBACCO COUNSELING She is not a tobacco/nicotine user. REVIEW OF SYSTEMS As in HPI PHYSICAL EXAMINATION BP 122/80 (BP Location: Right arm, Patient Position (BP): Sitting, BP Cuff Size: Large Adult) Pulse 77 Temp 98.5 ??F (36.9 ??C) (Tympanic) Resp 18 Ht 5' 6 (1.676 m) Wt 109.8 kg (242 lb) SpO2 98% BMI 39.06 kg/m?? Gen - AAO, NAD Head- normocephalic/atraumatic. Eyes - PERRL, EOMI, noninjected Ears - pinna appear normal, canals clear, TMs appear normal Nose - nasal mucosa pink and moist. Mouth - mucosa pink and moist. Posterior pharynx without erythema, swelling, or exudate. Neck - Supple, no thyroid masses. No LAD. Heart - RRR, no m/r/g Lungs - CTAB, no w/r/r Abd - soft, NT/ND, normal bowel sounds x 4 Ext - no c/c/e. Normal peripheral pulses Neuro - Facial features symmetric. Normal speech and voice. Normal gait. A/P Lis was seen today for follow up. Diagnoses and all orders for this visit: Type 2 diabetes mellitus without complication, without long-term current use of insulin - tirzepatide (Mounjaro) 7.5 mg/0.5 mL Pen Injector; Inject 0.5 mL (7.5 mg) by subcutaneous injection every 7 days. - BASIC METABOLIC PANEL; Future - VITAMIN B12 LEVEL; Future - LIPID PANEL; Future - LIPID PANEL - VITAMIN B12 LEVEL - BASIC METABOLIC PANEL Increasing mounjaro to 7.5mg every 7 days. Labs ordered. Patient encouraged to keep working on diet, exercise, sleep, and stress management. FOLLOW UP Return in about 4 weeks (around 12/10/2022). Elma Magaña MD 11/12/2022 [facility] [employer] [facility] [employer] [address] [address] documented in this encounter Miscellaneous Notes * Result Encounter Note - Henrietta Andrade RN - 11/14/2022 1:01 PM CDT Spoke to pt giving this information. Pt verbalized understanding. * Result Encounter Note - Elma Magaña MD - 11/14/2022 12:22 PM CDT Please schedule her an appt to recheck vitamin b12 again in 4 weeks. * Result Encounter Note - Henrietta Andrade RN - 11/14/2022 10:10 AM CDT Spoke to pt giving this information. Pt states she was taking Natrol fast dissolving B-12 5000mcg daily for about 3 months and a week ago she cut back to Natrol fast dissolving B-12 1000mcg. * Result Encounter Note - Elma Magaña MD - 11/14/2022 9:32 AM CDT Please inform patient of her lab results. WHat Vitamin B supplement is she taking? * Patient Instructions - Elma Magaña MD - 11/12/2022 9:32 AM CDT Paying attention to sleep hygiene is one of the most straightforward ways that you can set yourselfup for better sleep. Strong sleep hygiene means having both a bedroom environment and daily routines that promote consistent, uninterrupted sleep. Keeping a stable sleep schedule, making your bedroom comfortable and freeof disruptions, following a relaxing pre-bed routine, and building healthy habits during the day can all contribute to ideal sleep hygiene. Every sleeper can tailor their sleep hygiene practices to suit their needs. In the process, you canharness positive habits to make it easier to sleep soundly throughout the night and wake up well-rested. Why Is Sleep Hygiene Important? Obtaining healthy sleep is important for both physical and mental health, improving productivity and overall quality of life. Everyone, from children to older adults, can benefit from better sleep, and sleep hygiene can play a barreto part in achieving that goal. Research has demonstrated that forming good habits is a central part of health1. Crafting sustainable and beneficial routines makes healthy behaviors feel almost automatic, creating an ongoing process of positive reinforcement. On the flip side, bad habits can become engrained even as they cause negative consequences. Thankfully, humans have an impressive ability 2 to make our habits serve our long-term interests. Building an environment and set of routines that promote our goals can really pay off. Sleep hygiene encompasses both environment and habits, and it can pave the way for higher-quality sleep and better overall health. Improving sleep hygiene has little cost and virtually no risk, making it an important part of a public health strategy3 to counteract the serious problems of insufficient sleep and insomnia in [place]. What Are Signs of Poor Sleep Hygiene? Having a hard time falling asleep, experiencing frequent sleep disturbances, and suffering daytime sleepiness are the most telling signs of poor sleep hygiene. An overall lack of consistency in sleepquantity or quality can also be a symptom of poor sleep hygiene. How Do You Practice Good Sleep Hygiene? Good sleep hygiene is all about putting yourself in the best position to sleep well each and every night. Optimizing your sleep schedule, pre-bed routine, and daily routines is part of harnessing habits tomake quality sleep feel more automatic. At the same time, creating a pleasant bedroom environment can be an invitation to relax and doze off. A handful of tips can help in each of these areas, they aren???t rigid requirements. You can adapt them to fit your circumstances and create your own sleep hygiene checklist to help get the best sleep possible. Set Your Sleep Schedule Having a set schedule normalizes sleep as an essential part of your day and gets your brain and body accustomed to getting the full amount of sleep that you need. Have a Fixed Wake-Up Time: Regardless of whether it???s a weekday or weekend, try to wake up at thesame time since a fluctuating schedule keeps you from getting into a rhythm of consistent sleep. Prioritize Sleep: It might be tempting to skip sleep in order to work, study, socialize, or exercise, but it???s vital to treat sleep as a priority. Calculate a target bedtime based on your fixed wake-up time and do your best to be ready for bed around that time each night. Make Gradual Adjustments: If you want to shift your sleep times, don???t try to do it all in one fell swoop because that can throw your schedule out of whack. Instead, make small, [id number] adjustments of up to an hour or two4 so that you can get adjusted and settle into a new schedule. Don???t Overdo It With Naps: Naps can be a handy way to regain energy during the day, but they can throw off sleep at night. To avoid this, try to keep naps relatively short and limited to the early afternoon. Follow a Nightly Routine How you prepare for bed can determine how easily you???ll be able to fall asleep. A pre-sleep playbook including some of these tips can put you at ease and make it easier to get to fall asleep when you want to. Keep Your Routine Consistent: Following the same steps each night, including things like putting onyour pajamas and brushing your teeth, can reinforce in your mind that it???s bedtime. Budget 30 Minutes For Winding Down: Take advantage of whatever puts you in a state of calm such as soft music, light stretching, reading, and/or relaxation exercises. Dim Your Lights: Try to keep away from bright lights because they can hinder the production of melatonin, a hormone that the body creates to facilitate sleep. Unplug From Electronics: Build in a 30-60 minute pre-bed buffer time that is device-free. Cell phones, tablets, and laptops cause mental stimulation that is hard to shut off and also generate blue light that may decrease melatonin production. Test Methods of Relaxation: Instead of making falling asleep your goal, it???s often easier to focus on relaxation. Meditation, mindfulness, paced breathing, and other relaxation techniques can put you in the right mindset for bed. Don???t Toss and Turn: It helps to have a healthy mental connection between being in bed and actually being asleep. For that reason, if after 20 minutes you haven???t gotten to sleep, get up and stretch, read, or do something else calming in low light before trying to fall asleep again. Cultivate Healthy Daily Habits It???s not just bedtime habits that play a part in getting good sleep. Incorporating positive routines during the day can support your circadian rhythm and limit sleep disruptions. Get Daylight Exposure: Light, especially sunlight, is one of the barreto drivers of circadian rhythms that can encourage quality sleep. Be Physically Active: Regular exercise can make it easier to sleep at night and also delivers a host of other health benefits. Don???t Smoke: Nicotine stimulates the body in ways that disrupt sleep, which helps explain why smoking is correlated with numerous sleeping problems5. Reduce Alcohol Consumption: Alcohol may make it easier to fall asleep, but the effect wears off, disrupting sleep later in the night. As a result, it???s best to moderate alcohol consumption and avoid it later in the evening. Cut Down on Caffeine in the Afternoon and Evening: Because it???s a stimulant, caffeine can keep you wired even when you want to rest, so try to avoid it later in the day. Also be aware if you???re consuming lots of caffeine to try to make up for lack of sleep. Don???t Dine Late: Eating dinner late, especially if it???s a big, heavy, or spicy meal, can mean you???re still digesting when it???s time for bed. In general, any food or snacks before bed should be on the supervisor in circuit testing side. Restrict In-Bed Activity: To build a link in your mind between sleep and being in bed, it???s best to only use your bed for sleep with sex being the one exception. Optimize Your Bedroom A central component of sleep hygiene beyond just habits is your sleep environment. To fall asleep more easily, you want your bedroom to emanate tranquility. While what makes a bedroom inviting can vary from one person to the next, these tips may help make it calm and free of disruptions: Have a Comfortable Mattress and Pillow: Your sleeping surface is critical to comfort and pain-free sleep, so choose the best mattress and best pillow for your needs wisely. Use Excellent Bedding: The sheets and blankets are the first thing you touch when you get into bed,so it???s beneficial to make sure they match your needs and preferences. Set a Cool Yet Comfortable Temperature: Fine-tune your bedroom temperature to suit your preferences, but err on the cooler side (around 65 degrees fahrenheit). Block Out Light: Use heavy curtains or an eye mask to prevent light from interrupting your sleep. Drown Out Noise: Ear plugs can stop noise from keeping you awake, and if you don???t find them comfortable, you can try a white noise machine or even a fan to drown out bothersome sounds. Try Calming Scents: Light smells, such as lavender6, may induce a calmer state of mind and help cultivate a positive space for sleep. documented in this encounter Plan of Treatment Upcoming Encounters Date Type Department Care Team (Late st Contact Info) Description 06/20/2024 9:30 AM OFFICE CLERK ASSISTANT Office Visit [facility] Orthopedic Surgery at the [facility] [address] [place] [phone] [place] [address] [place] [address] 10/27/2024 2:45 PM CDT Office Visit [facility] Gastroenterology [facility] [address] [facility] [address] [place] [address] Bebo Benites MD [address] [facility] [address] [place] [address] documented as of this encounter Procedures Procedure Name Priority Date/Time Associated Diagnosis Comments VITAMIN B12 LEVEL Routine 11/12/2022 9:4 3 AM CDT Type 2 diabetes mellitus without complication, without long-term current use of insulin LIPID PANEL Routine 11/12/2022 9:43 AM CDT Type 2 diabetes mellitus without complication, without long-term current use of insulin BASIC METABOLIC PANEL Routine 11/12/2022 9:43 AM CDT Type 2 diabetes mellitus without complication, without long-term current use of insulin documented in this encounter Results * (ABNORMAL) LIPID PANEL (11/12/2022 9:43 AM CDT) [facility] CHOLESTEROL 182 <200 mg/dL [facility] HDL 58 > OR = 50 mg/dL [facility] TRIGLYCERIDE 140 <150 mg/dL [facility] LDL CALCULATED 100(H) mg/dL (calc) [facility] Comment: Reference range: <100 Desirable range <100 mg/dL for primary prevention; ?? <70 mg/dL for patients with CHD or diabetic patients with > or = 2 CHD risk factors. LDL-C is now calculated using the Tito-Falcon calculation, which is a validated novel method providing better accuracy than the Friedewald equation in the estimation of LDL-C. Tito SS et al. JOSUE. 2013;310(19): 0084-6859 (http://education.Brandwatch.Legal River/faq/CIJ338) CHOL/HDL RATIO 3.1 <5.0 (calc) [facility] TOTAL NON-HDL CHOL(LDL+VLDL) 124 <130 mg/dL (calc) [facility] Comment: For patients with diabetes plus 1 major ASCVD risk factor, treating to a non-HDL-C goal of <100 mg/dL (LDL-C of <70 mg/dL) is considered a therapeutic option. Test Performed at: [facility] [address] ??[phone] Molina Pascual MD Blood 11/12/2022 9:43 AM CDT 11/13/2022 5:43 AM CDT Elma Magaña MD CHEMISTRY ORDERABLES Performing Organization Address City/State/[facility] Co de Phone Number [facility] [phone] [facility] [address] [place] [phone] * (ABNORMAL) VITAMIN B12 LEVEL (11/12/2022 9:43 AM CDT) VITAMIN B12 1317(H) 200 - 1100 pg/mL [facility] Comment: Test Performed at: [facility] [address] [place] [address] ??[phone] Molina Pascual MD Blood 11/12/2022 9:43 AM CDT 11/13/2022 5:43 AM CDT Elma Magaña MD CHEMISTRY ORDERABLES Performing Organization Address [facility] Co de Phone Number [facility] [phone] [facility] [address] [place] [phone] * BASIC METABOLIC PANEL (11/12/2022 9:43 AM CDT) Pathologist [facility] GLUCOSE 97 65 - 99 mg/dL [facility] Comment: ? Fasting reference interval BUN 14 7 - 25 mg/dL [facility] CREATININE 0.56 0.50 - 0.97 mg/dL [facility] GFR 121 > OR = 60 mL/min/1. 73m2 [facility] [place] [facility] Comment: The eGFR is based on the CKD-EPI 2020 equation. To calculate the new eGFR from a previous Creatinine or Cystatin C result, go to https://www.kidney.org/professionals/ kdoqi/gfr%5Fcalculator BUN/CREAT RATIO NOT APPLICABLE 6 - 22 (calc) [facility] SODIUM 140 135 - 146 mmol/L [facility] POTASSIUM 4.1 3.5 - 5.3 mmol/L [facility] CHLORIDE 107 98 - 110 mmol/L [facility] CO2 20 20 - 32 mmol/L [facility] CALCIUM 9.3 8.6 - 10.2 mg/dL [facility] Comment: Test Performed at: [facility] [address] [place], [place] ??[phone] Molina Pascual MD Blood 11/12/2022 9:43 AM CDT 11/13/2022 5:43 AM CDT Elma Magaña MD CHEMISTRY ORDERABLES Performing Organization Address City/State/[facility] Co de Phone Number [facility] [phone] [facility] [address] [place] [address] documented in this encounter Visit Diagnoses Diagnosis Type 2 diabetes mellitus without complication, without long-term current use of insulin- Primary documented in this encounter Additional Health Concerns Assessment Noted Time PHQ-9 Depression Total Score: 3 07/04/19 23 9:00 AM OFFICE CLERK ASSISTANT documented as of this encounter Care Teams Cattle Dipper Relationship Specialty Start Date End Date Elma Magaña MD [address] [place] [phone] PCP - General Family Practice 12/09/21 12/13/23 documented as of this encounter
--- OUTSIDE RECORDS SUMMARY | 2024-06-08 20:19 | XMS_ITS | Encounter Summary ---
Author Organization [facility] Address [address] [place] [address] Care Team Providers Care Dredge Hand Name Role Phone Elma Magaña MD Primary Care Provider [phone] Reason for Visit * Reason Onset Date Comments CoCM Initial Contact 07/10/2023 Pt arrived after therapist callied. Completed appointment. Encounter Details Date Type Department Care Team ([facility] Contact Info) Description 07/10/2023 Telephone [facility] at [employer] [place] [address] [place] [address] Beni Kaur [address] [place] [phone] CoCM Initial Contact (Pt arrived after therapist callied. Completed appointment.) Social History Tobacco Use Types Packs/Day Years [...] Upcoming Encounters Date Type Department Care Team ([facility] Contact Info) Description 06/20/2024 9:30 AM VP PLATFORMS Office Visit [facility] Orthopedic Surgery at the [facility] Medicine [address] [facility] [address] [place] [address] [place] [address] [place] [address] 10/27/2024 2:45 PM CDT Office Visit [facility] G[facility]enterology [facility] [address] [place] [phone] Bebo Benites MD [address] [place] [address] documented as of this encounter Visit Diagnoses Not on filedocumented in this encounter Additional Health Concerns Assessment Noted Time PHQ-9 Depression Total Score: 5 07/10/19 24 1:00 PM [employer] documented as of this encounter Care Teams Dredge Hand Relationship Specialty Start Date End Date Elma Magaña MD [address] [place] [address] PCP - General Family Practice 12/09/21 12/13/23 documented as of this encounter
--- OUTSIDE RECORDS SUMMARY | 2024-06-08 20:19 | XMS_ITS | Encounter Summary ---
Author Organization [facility] Address [address] [place] [address] Care Team Providers Care Machine Inker Name Role Phone Elma Magaña MD Primary Care Provider [phone] Reason for Visit * Reason Comments Medication Refill Encounter Details Date Type Department Care Team (Latest Contact Info) Description 01/15/2023 2:40 PM CDT Procedure visit [facility] at Work First Aid Shot Therapy [place] [address] [place] [address] Encounter for issue of repeat prescription (Primary [...] of this encounter Progress Notes * Henrietta Andrade RN - 01/15/2023 2:48 PM CDT Rosuvastatin 40mg QD #90, Metformin 500mg BID #200, Lisinopril 10mg QD #100, Escitalopram 10mg QD #90 documented in this encounter Plan of Treatment Upcoming Encounters Date Type Department Care Team (Late st Contact Info) Description 06/20/2024 9:30 AM LOCAL COMPANY HAZMAT DRIVER Office Visit [facility] Orthopedic Surgery at the [facility] Medicine [address] [place] [address] [place] [address] [place] [address] 10/27/2024 2:45 PM CDT Office Visit [facility] Gastroenterology [facility] [address] [facility] [address] [place] [address] Bebo Benites MD [address] [facility] [address] [place] [address] documented as of this encounter Visit Diagnoses Diagnosis Encounter for issue of repeat prescription- Primary Issue of repeat prescriptions documented in this encounter Additional Health Concerns Assessment Noted Time PHQ-9 Depression Total Score: 3 07/04/19 23 9:00 AM LOCAL COMPANY HAZMAT DRIVER documented as of this encounter Care Teams Machine Inker Relationship Specialty Start Date End Date Elma Magaña MD [address] [place], [place] [address] [address] PCP - General Family Practice 12/09/21 12/13/23 documented as of this encounter
--- OUTSIDE RECORDS SUMMARY | 2024-06-08 20:19 | XMS_ITS | Encounter Summary ---
Author Organization [facility] Address [address] [place] [address] Care Team Providers Care Mortgage Counselor Name Role Phone Bijal Wolfe MD Primary Care Provider [phone] Reason for Visit * Reason Comments Medication Refill Encounter Details Date Type Department Care Team (Latest Contact Info) Description 12/17/2023 1:50 PM CDT Procedure visit [facility] at [facility] [employer] [place] [address] [place] [address] Issue of repeat prescription (Primary Dx) Social History [...] as of this encounter Progress Notes * Gustavo Dunham - 12/17/2023 2:42 PM CDT Escitalopram Oxalate 10mg tab #90, Metformin 500mg tab #100 (2 bottles given, #200 tabs), BupropionXL 300mg tab #30 (3 bottles given, total #90 tabs), Lisinopril 10mg tab #100, Rosuvastatin Calcium 40mg tab #30 (3 bottles given, total #90 tabs) documented in this encounter Plan of Treatment Upcoming Encounters Date Type Department Care Team (Late st Contact Info) Description 06/20/2024 9:30 AM LAW FIRM PARTNER Office Visit [facility] Orthopedic Surgery at the [facility] [address] [facility] [address] [place] [address] [place] [address] [place] [address] 10/27/2024 2:45 PM CDT Office Visit [facility] Gastroenterology [address] [facility] [address] [place] [address] Bebo Benites MD [address] [facility] [address] [place] [address] documented as of this encounter Visit Diagnoses Diagnosis Issue of repeat prescription- Primary Issue of repeat prescriptions documented in this encounter Additional Health Concerns Assessment Noted Time PHQ-9 Depression Total Score: 4 08/21/19 24 1:00 PM LAW FIRM PARTNER documented as of this encounter Care Teams Mortgage Counselor Relationship Specialty Start Date End Date Bijal Wolfe MD [address] [place] [phone] PCP - General Internal Medicine 12/14/23 documented as of this encounter
--- OUTSIDE RECORDS SUMMARY | 2024-06-08 20:19 | XMS_ITS | Encounter Summary ---
Author Organization [facility] Address [address] [place] [address] Care Team Providers Care Filling Hauler Weaving Name Role Phone Elma Magaña MD Primary Care Provider [phone] Reason for Visit * Reason Comments Med Refill Encounter Details Date Type Department Care Team (Late Contact Info) Description 09/30/2022 Refill [facility] at Work [employer] [place] [address] [place] [address] Elma Magaña MD [address] [place] [address] Encounter for BCP initial prescription Social History Tobacco Use Types Packs/Day Years [...] encounter Miscellaneous Notes * Telephone Encounter - Elma Magaña MD - 09/30/2022 11:53 AM CDT Please remind patient that she needs to use back up control while on mounjaro documented in this encounter Plan of Treatment Upcoming Encounters Date Type Department Care Team (Late Contact Info) Description 06/20/2024 9:30 AM NIB INSPECTOR Office Visit [facility] Orthopedic Surgery at the [facility] [address] [facility] [address] [place] [address] [place] [address] [place] [address] 10/27/2024 2:45 PM CDT Office Visit [facility] Gastroenterology [address] [facility] [address] [place] [address] Bebo Benites MD [address] [facility] [address] [place] [address] documented as of this encounter Visit Diagnoses Diagnosis Encounter for BCP initial prescription General counseling for prescription of oral contraceptives documented in this encounter Additional Health Concerns Assessment Noted Time PHQ-9 Depression Total Score: 3 07/04/19 23 9:00 AM NIB INSPECTOR documented as of this encounter Care Teams Filling Hauler Weaving Relationship Specialty Start Date End Date Elma Magaña MD [address] [place] [phone] PCP - General Family Practice 12/09/21 12/13/23 documented as of this encounter
--- OUTSIDE RECORDS SUMMARY | 2024-06-08 20:19 | XMS_ITS | Encounter Summary ---
Author Organization [facility] Address [address] [place] [address] Care Team Providers Care Hospice Clinical Manager Name Role Phone Elma Magaña MD Primary Care Provider [phone] Reason for Visit * Reason Comments Medication Refill Encounter Details Date Type Department Care Team (Latest Contact Info) Description 08/20/2022 10:00 AM MILL TENDER WASHING Clinical Support [facility] at Work Perfect Memory [place] [address] [place] [address] Encounter for issue of repeat prescription (Primary [...] Progress Notes * Henrietta Andrade RN - 08/20/2022 10:04 AM CST Lisinopril 10mg QD #100. No refills. TENDER WASHING documented in this encounter Plan of Treatment Upcoming Encounters Date Type Department Care Team (Late st Contact Info) Description 06/20/2024 9:30 AM MILL TENDER WASHING Office Visit [facility] Orthopedic Surgery at the [facility] [address] [facility] [address] [place] [address] [place] [address] [place] [address] 10/27/2024 2:45 PM CDT Office Visit [facility] Gastroenterology [facility] [address] [facility] [address] [place] [address] Bebo Benites MD [address] [facility] [address] [place] [address] documented as of this encounter Visit Diagnoses Diagnosis Encounter for issue of repeat prescription- Primary Issue of repeat prescriptions documented in this encounter Additional Health Concerns Assessment Noted Time PHQ-9 Depression Total Score: 3 07/04/19 23 9:00 AM MILL TENDER WASHING documented as of this encounter Care Teams Hospice Clinical Manager Relationship Specialty Start Date End Date Elma Magaña MD [address] [place] [phone] PCP - General Family Practice 12/09/21 12/13/23 documented as of this encounter
--- OUTSIDE RECORDS SUMMARY | 2024-06-08 20:19 | XMS_ITS | Encounter Summary ---
Author Organization [facility] Address [address] [place] [address] Care Team Providers Care Knife Machine Operator Name Role Phone Elma Magaña MD Primary Care Provider [phone] Reason for Visit * Reason Comments Medication Refill Encounter Details Date Type Department Care Team (Latest Contact Info) Description 09/18/2023 2:20 PM CDT Procedure visit [facility] at [facility] Active Scaler [place] [address] [place] [address] Issue of repeat prescription for medication (Primary Dx) Social History Tobacco Use Types [...] as of this encounter Progress Notes * Ness Kidd - 09/18/2023 2:56 PM CDT Bupropion HCL 300 mg TAB #30 (3 bottles) documented in this encounter Plan of Treatment Upcoming Encounters Date Type Department Care Team (Late st Contact Info) Description 06/20/2024 9:30 AM VERTICAL CONTOUR BAND SAW OPERATOR Office Visit [facility] Orthopedic Surgery at the [facility] Medicine [address] [facility] [address] [place] [address] [place] [address] [place] [address] 10/27/2024 2:45 PM CDT Office Visit [facility] Gastroenterology [address] [facility] [facility] [address] [place] [address] Bebo Benites MD [address] [facility] [address] [place] [address] documented as of this encounter Visit Diagnoses Diagnosis Issue of repeat prescription for medication- Primary Issue of repeat prescriptions documented in this encounter Additional Health Concerns Assessment Noted Time PHQ-9 Depression Total Score: 4 08/21/19 24 1:00 PM VERTICAL CONTOUR BAND SAW OPERATOR documented as of this encounter Care Teams Knife Machine Operator Relationship Specialty Start Date End Date Elma Magaña MD [address] [place] [address] PCP - General Family Practice 12/09/21 12/13/23 documented as of this encounter
--- OUTSIDE RECORDS SUMMARY | 2024-06-08 20:19 | XMS_ITS | Encounter Summary ---
Author Organization [facility] Address [address] [place] [address] Care Team Providers Care Granite Polisher Name Role Phone Elma Magaña MD Primary Care Provider [phone] Encounter Details Date Type Department Care Team (Late st Contact Info) Description 06/23/2023 External Device Data STL ABSTRACTION Provider, Abstract [...] st Contact Info) Description 06/20/2024 9:30 AM CONE CHOCOLATE DIPPER Office Visit [facility] Orthopedic Surgery at the [facility] Medicine [address] [facility] [address] [place] [address] [place] [address] [place] [address] 10/27/2024 2:45 PM CDT Office Visit [facility] Gastroenterology [facility] [address] [facility] [address] [place] [address] Bebo Benites MD [address] [phone] documented as of this encounter Visit Diagnoses Not on filedocumented in this encounter Additional Health Concerns Assessment Noted Time PHQ-9 Depression Total Score: 3 07/04/19 23 9:00 AM CONE CHOCOLATE DIPPER documented as of this encounter Care Teams Granite Polisher Relationship Specialty Start Date End Date Elma Magaña MD [address] [place] [address] PCP - General Family Practice 12/09/21 12/13/23 documented as of this encounter
--- OUTSIDE RECORDS SUMMARY | 2024-06-08 20:19 | XMS_ITS | Encounter Summary ---
Author Organization [facility] Address [address] [place] [address] Care Team Providers Care End Polisher Name Role Phone Bijal Wolfe MD Primary Care Provider [phone] Reason for Visit * Reason Onset Date Comments Medication Refill 12/15/2023 Encounter Details Date Type Department Care Team (Late st Contact Info) Description 12/15/2023 Refill [facility] at Work [employer] [place] [address] [place] [address] Luba Vuong, ANP [address] [facility] [address] [place] [address] Social History Tobacco Use Types Packs/Day Years [...] * Telephone Encounter - Ness Kidd - 12/15/2023 9:26 AM CDT Called pt, aware that medications were approved and will be ready for picker / packer. * Telephone Encounter - Ness Kidd - 12/15/2023 7:46 AM CDT Bupropion HCL Last refilled:09/15/23 Quantity given: 90 Number of refills: 0 Last appointment: 08/27/23 Next appointment: none Last Labs: 08/27/23 Escitalopram Last refilled: 07/28/23 Quantity given: 90 Number of refills: 0 Lisinopril Last refilled: 07/28/23 Quantity given: 90 Number of refills: 0 documented in this encounter Plan of Treatment Upcoming Encounters Date Type Department Care Team (Late st Contact Info) Description 06/20/2024 9:30 AM SPECIAL PROJECTS COORDINATOR Office Visit [facility] Orthopedic Surgery at the [facility] [address] [facility] [address] [place] [address] [place] [address] [place] [address] 10/27/2024 2:45 PM CDT Office Visit [facility] Gastroenterology [facility] [address] [facility] [address] [place] [address] Bebo Benites MD [address] [facility] [address] [place] [address] documented as of this encounter Visit Diagnoses Not on filedocumented in this encounter Additional Health Concerns Assessment Noted Time PHQ-9 Depression Total Score: 4 08/21/19 24 1:00 PM SPECIAL PROJECTS COORDINATOR documented as of this encounter Care Teams End Polisher Relationship Specialty Start Date End Date Bijla Wolfe MD [address] [place] [address] [place] [address] PCP - General Internal Medicine 12/14/23 documented as of this encounter
--- OUTSIDE RECORDS SUMMARY | 2024-06-08 20:19 | XMS_ITS | Encounter Summary ---
Author Organization [facility] Address [address] [place] [address] Care Team Providers Care Yarn Skeins Examiner Name Role Phone Elma Magaña MD Primary Care Provider [phone] Encounter Details Date Type Department Care Team (Late st Contact Info) Description 07/31/2023 Chart Note [facility] [employer] [place] [address] [place] [address] Beni Kaur [address] [place] [address] Social History Tobacco Use Types Packs/Day Years [...] as of this encounter Progress Notes * Beni Kaur - 07/31/2023 10:14 AM CST [facility] Psychiatric Staffing Consult and Review The consulting psychiatrist and behavioral health care managers met on 07/31/2023 for Lis. The [facility] team discussed Lis diagnosis, goals, progress being made, additional treatment options and any current issues. Per consult with Dr. Hinton NSIC PHOTOGRAPHER documented in this encounter Plan of Treatment Upcoming Encounters Date Type Department Care Team (Late st Contact Info) Description 06/20/2024 9:30 AM FORENSIC PHOTOGRAPHER Office Visit [facility] Orthopedic Surgery at the [facility] [address] [facility] [address] [place] [address] [place] [address] [place] [address] 10/27/2024 2:45 PM CDT Office Visit [facility] Gastroenterology [address] [facility] [address] [place] [address] Bebo Benites MD [address] [facility] [address] [place] [address] documented as of this encounter Visit Diagnoses Not on filedocumented in this encounter Additional Health Concerns Assessment Noted Time PHQ-9 Depression Total Score: 5 07/10/19 24 1:00 PM FORENSIC PHOTOGRAPHER documented as of this encounter Care Teams Yarn Skeins Examiner Relationship Specialty Start Date End Date Elma Magaña MD [address] [place] [address] PCP - General Family Practice 12/09/21 12/13/23 documented as of this encounter
--- OUTSIDE RECORDS SUMMARY | 2024-06-08 20:19 | XMS_ITS | Encounter Summary ---
Author Organization [facility] Address [address] [place] [address] Care Team Providers Care Sheet Rocker Name Role Phone Elma Magaña MD Primary Care Provider [phone] Encounter Details Date Type Department Care Team (Late st Contact Info) Description 10/27/2023 External Device Data STL ABSTRACTION Provider, Abstract [...] (Late Contact Info) Description 06/20/2024 9:30 AM CROP AND SOIL TECHNICIAN Office Visit [facility] Orthopedic Surgery at the [facility] Medicine [address] [facility] [address] [place] [address] [place] [address] [place] [address] 10/27/2024 2:45 PM CDT Office Visit [facility] Gastroenterology [facility] [address] [facility] [address] [place] [address] Bebo Benites MD [address] [address] documented as of this encounter Visit Diagnoses Not on filedocumented in this encounter Additional Health Concerns Assessment Noted Time PHQ-9 Depression Total Score: 4 08/21/19 24 1:00 PM CROP AND SOIL TECHNICIAN documented as of this encounter Care Teams Sheet Rocker Relationship Specialty Start Date End Date Elma Magaña MD [address] [place] [address] PCP - General Family Practice 12/09/21 12/13/23 documented as of this encounter
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
--- OUTSIDE RECORDS SUMMARY | 2024-06-08 20:19 | XMS_ITS | Encounter Summary ---
Author Organization [facility] Address [address] [place] [address] Care Team Providers Care Manager Field Investigations Name Role Phone Elma Magaña MD Primary Care Provider [phone] Reason for Visit * Reason Onset Date Comments Medication Refill 09/05/2022 Encounter Details Date Type Department Care Team (Late st Contact Info) Description 09/05/2022 Refill [facility] [employer] [place] [address] [place] [address] Marcia Davis FNP [address] [place] [address] Moderate episode of recurrent major depressive disorder [...] * Telephone Encounter - Kim Gibbons - 09/05/2022 12:12 PM CDT NEEL 07/04/2022. Pt requesting a one month supply be sent to her pharmacy. documented in this encounter Plan of Treatment Upcoming Encounters Date Type Department Care Team (Late st Contact Info) Description 06/20/2024 9:30 AM WARP TYING MACHINE KNOTTER Office Visit [facility] Orthopedic Surgery at the [facility] [address] [facility] [address] [place] [address] [place] [address] [place] [address] 10/27/2024 2:45 PM CDT Office Visit [facility] Gastroenterology [address] [facility] [address] [place] [address] Bebo Benites MD [address] [facility] [address] [place] [address] documented as of this encounter Visit Diagnoses Diagnosis Moderate episode of recurrent major depressive disorder documented in this encounter Additional Health Concerns Assessment Noted Time PHQ-9 Depression Total Score: 3 07/04/19 23 9:00 AM WARP TYING MACHINE KNOTTER documented as of this encounter Care Teams Manager Field Investigations Relationship Specialty Start Date End Date Elma Magaña MD [address] [place] [phone] PCP - General Family Practice 12/09/21 12/13/23 documented as of this encounter
--- OUTSIDE RECORDS SUMMARY | 2024-06-08 20:19 | XMS_ITS | Encounter Summary ---
Author Organization [facility] Address [address] [place] [address] Care Team Providers Care Box Spring Upholsterer Name Role Phone Elma Magaña MD Primary Care Provider [phone] Reason for Visit * Reason Onset Date Comments Medication Refill 07/02/2023 Encounter Details Date Type Department Care Team (Late st Contact Info) Description 07/02/2023 Refill [facility] at [facility] [place] [address] [place] [address] Fatemeh Vuong ANP [address] [facility] [place] [facility] [address] [place] [address] Social History Tobacco Use Types [...] as of this encounter Miscellaneous Notes * Addendum Note - Fatemeh Vuong ANP - 07/02/2023 11:22 AM CSTAddended by: FATEMEH VUONG on: 07/02/2023 11:22 AM Modules accepted: Orders AL PARTS ASSEMBLER * Telephone Encounter - Fatemeh Vuong ANP - 07/02/2023 11:22 AM SANDAL PARTS ASSEMBLER Agree with stop buproprion SR 150 mg twice daily and change to Wellbutrin XL 300 mg daily-- on pillin AM. FU appointment 4 weeks after this adjustment for BP and mood recheck. Please schedule AL PARTS ASSEMBLER * Telephone Encounter - Henrietta Andrade RN - 07/02/2023 10:36 AM CST Pt called back stating she has been taking the bupropion 150mg twice daily instead of both tablets at one time because she feels like it helps her better in the evenings. Explained to pt that [facility] and those are not meant to be taken twice daily. Pt states she was not aware of that and she is willing to change to bupropion 300mg XL once daily and still be able to pick it up from the [facility]. AL PARTS ASSEMBLER * Telephone Encounter - Henrietta Andrade RN - 07/02/2023 10:30 AM CST At office visit on 04/22/2012 pt was instructed to increase bupropion to 300mg daily. Pt has been picking up bupropion 150mg #180 sense that visit. I LM asking pt to call back to clarify how she is taking the medication and if she would like to picker packer bupropion 300mg QD instead. AL PARTS ASSEMBLER * Telephone Encounter - Fatemeh Vuong ANP - 07/02/2023 9:25 AM CST Due for OV here in Mid Jul. Refill sent to pharmacy. We do not have this medication that I am aware of. AL PARTS ASSEMBLER * Telephone Encounter - Ness Kidd - 07/02/2023 8:36 AM CST Bupropion Last refilled: 10/07/22 Quantity given: 180 Number of refills: 0 Last appointment: 02/02/23 Next appointment: 07/10/23 w/ Merlin Last Labs: 01/14/23 AL PARTS ASSEMBLER documented in this encounter Plan of Treatment Upcoming Encounters Date Type Department Care Team (Late st Contact Info) Description 06/20/2024 9:30 AM SANDAL PARTS ASSEMBLER Office Visit [facility] Orthopedic Surgery at the [facility] Medicine [address] [place] [address] [place] [address] [place] [address] 10/27/2024 2:45 PM CDT Office Visit [facility] Gastroenterology [facility] [address] [facility] [address] [place] [address] Bebo Benites MD [address] [facility] [address] [place] [address] documented as of this encounter Visit Diagnoses Not on filedocumented in this encounter Additional Health Concerns Assessment Noted Time PHQ-9 Depression Total Score: 3 07/04/19 9:00 AM SANDAL PARTS ASSEMBLER documented as of this encounter Care Teams Box Spring Upholsterer Relationship Specialty Start Date End Date Elma Magaña MD [address] [place] [address] PCP - General Family Practice 12/09/21 12/13/23 documented as of this encounter
--- OUTSIDE RECORDS SUMMARY | 2024-06-08 20:19 | XMS_ITS | Encounter Summary ---
Author Organization [facility] Address [address] [place] [address] Care Team Providers Care Aviation Boatswain'S Mate Name Role Phone Bijal Wolfe MD Primary Care Provider [phone] Reason for Visit * Reason Comments Medication Refill Encounter Details Date Type Department Care Team (Latest Contact Info) Description 01/13/2024 2:00 PM CDT Procedure visit [facility] at Work [employer] [address] [address] Issue of repeat prescription for medication (Primary [...] encounter Progress Notes * Ness Kidd - 01/13/2024 2:42 PM CDT Meloxicam 7.5 mg TAB #30 (1 bottle) documented in this encounter Plan of Treatment Upcoming Encounters Date Type Department Care Team (Late st Contact Info) Description 06/20/2024 9:30 AM CANVAS REPAIRER Office Visit [facility] Orthopedic Surgery at the [facility] [address] [place] [address] [place] [address] [place] [address] 10/27/2024 2:45 PM CDT Office Visit [facility] Gastroenterology [place] [place] [address] Bebo Benites MD [address] [place] [address] documented as of this encounter Visit Diagnoses Diagnosis Issue of repeat prescription for medication- Primary Issue of repeat prescriptions documented in this encounter Additional Health Concerns Assessment Noted Time PHQ-9 Depression Total Score: 4 08/21/19 24 1:00 PM CANVAS REPAIRER documented as of this encounter Care Teams Aviation Boatswain'S Mate Relationship Specialty Start Date End Date Bijal Wolfe MD [address] [place] [address] PCP - General Internal Medicine 12/14/23 documented as of this encounter
--- OUTSIDE RECORDS SUMMARY | 2024-06-08 20:19 | XMS_ITS | Encounter Summary ---
Author Organization [facility] Address [address] [place] [address] Care Team Providers Care Planimeter Operator Name Role Phone Ty Magaña MD Primary Care Provider Reason for Referral * Eval and Treat (Routine) - Closed Specialty Diagnoses / Procedures Referred By Contac t Referred To Contact Diagnoses Recurrent major depressive disorder, in remission Generalized anxiety disorder Procedures IA OFFICE/OUTPATIENT ESTABLISHED MOD MDM 30-39 MIN IA OFFICE/OUTPATIENT NEW MODERATE MDM 45-59 MINUTES Ty Magaña MD [address] [place] [address] Referral ID Status Reason Start Date Expiration Date Visits Re quested Visits Authorized [id number] Closed 05/25/2023 05/24/2024 1 1 HER OPERATOR Reason for Visit * Reason Onset Date Comments Referral 05/25/2023 Encounter Details Date Type Department Care Team (Late st Contact Info) Description 05/25/2023 Telephone [facility] at [facility] [employer] [place] [address] [place] [address] Ty Magaña MD [address] [place] [address] Referral Social History Tobacco Use Types Packs/Day Years [...] encounter Miscellaneous Notes * Telephone Encounter - Henrietta Andrade RN - 05/25/2023 11:51 AM CST Spoke to pt giving this information. Pt verbalized understanding. Advised pt that the therapist will call her to schedule an appointment. HER OPERATOR * Addendum Note - Ty Magaña MD - 05/25/2023 11:38 AM CSTAddended by: TY MAGAÑA on: 05/25/2023 11:38 AM Modules accepted: Orders HER OPERATOR * Telephone Encounter - Ty Magaña MD - 05/25/2023 11:38 AM CST Referral placed HER OPERATOR * Telephone Encounter - Henrietta Andrade RN - 05/25/2023 10:30 AM CST Pt called requesting an appointment to see Merlin Kaur, therapist. Pt states she was referred to him in the past but never made an appointment. Pt states she is now at a place where she is ready to talk to someone and would like to get started with Merlin. The referral entered on 01/31/2022 has been closed so pt is needing a new referral. Please advise if okay to put in new referral order. HER OPERATOR documented in this encounter Plan of Treatment Upcoming Encounters Date Type Department Care Team (Late st Contact Info) Description 06/20/2024 9:30 AM BUNCHER OPERATOR Office Visit [facility] Orthopedic Surgery at the [facility] [address] [place] [address] [place] [address] [place] [address] 10/27/2024 2:45 PM CDT Office Visit [facility] Gastroenterology [address] [place] [address] Bebo Benites MD [address] [facility] [address] [place] [address] Scheduled Referrals Name Type Priority Associated Diagnoses Order Schedule AMB REFERRAL TO CASE MANAGEMENT Outpatient Referral Routine Recurrent major depressive disorder, in remission Generalized anxiety disorder Ordered: 05/25/2023 documented as of this encounter Visit Diagnoses Diagnosis Recurrent major depressive disorder, in remission- Primary Generalized anxiety disorder documented in this encounter Additional Health Concerns Assessment Noted Time PHQ-9 Depression Total Score: 3 07/04/19 23 9:00 AM BUNCHER OPERATOR documented as of this encounter Care Teams Planimeter Operator Relationship Specialty Start Date End Date Ty Magaña MD [address] [place] [address] PCP - General Family Practice 12/09/21 12/13/23 documented as of this encounter
--- OUTSIDE RECORDS SUMMARY | 2024-06-08 20:19 | XMS_ITS | Encounter Summary ---
Author Organization [facility] Address [address] [place] [address] Care Team Providers Care Special Procedures Tech Name Role Phone Elma Magaña MD Primary Care Provider [phone] Reason for Visit * Reason Comments Med Refill Encounter Details Date Type Department Care Team (Late st Contact Info) Description 12/15/2022 Refill [facility] at Work [employer] [place] [address] [place] [address] Elma Magaña MD [address] [place] [address] Type 2 diabetes mellitus without [...] * Telephone Encounter - Kim Gibbons - 12/15/2022 3:53 PM CDT Pt scheduled follow up 01/05/2023 Lisinopril Last refilled: 08/18/2022 Quantity given: 90 Number of refills: 0 Last appointment: 11/12/2022 Next appointment: 01/05/2023 * Telephone Encounter - Elma Magaña MD - 12/15/2022 3:48 PM CDT F/u can be telephone * Telephone Encounter - Elma Magaña MD - 12/15/2022 3:47 PM CDT Due for f/u appt, please schedule documented in this encounter Plan of Treatment Upcoming Encounters Date Type Department Care Team (Late st Contact Info) Description 06/20/2024 9:30 AM TIME CLERK Office Visit [facility] Orthopedic Surgery at the [facility] [address] [facility] [place] [address] [place] [address] [place] [address] 10/27/2024 2:45 PM CDT Office Visit [facility] Gastroenterology [facility] [address] [facility] [place] [address] Bebo Benites MD [address] [place] [address] documented as of this encounter Visit Diagnoses Diagnosis Type 2 diabetes mellitus without complication, without long-term current use of insulin documented in this encounter Additional Health Concerns Assessment Noted Time PHQ-9 Depression Total Score: 3 07/04/19 23 9:00 AM TIME CLERK documented as of this encounter Care Teams Special Procedures Tech Relationship Specialty Start Date End Date Elma Magaña MD [address] [place] [address] PCP - General Family Practice 12/09/21 12/13/23 documented as of this encounter
--- OUTSIDE RECORDS SUMMARY | 2024-06-08 20:19 | XMS_ITS | Encounter Summary ---
Author Organization [facility] Address [address] [place] [address] Care Team Providers Care Digital Forensics Examiner Name Role Phone Elma Magaña MD Primary Care Provider [phone] Reason for Visit * Reason Comments Depression Anxiety Encounter Details Date Type Department Care Team (Late st Contact Info) Description 08/21/2023 1:00 PM GEAR STRAIGHTENER Office Visit [facility] at Work [employer] [place] [address] [place] [address] Beni Kaur [address] [place] [address] Recurrent major depressive disorder in remission (Primary Dx); Generalized anxiety disorder Social History Tobacco Use Types Packs/Day [...] encounter Progress Notes * Beni Kaur - 08/21/2023 1:04 PM CST Collaborative Care - Follow Up Assessment Patient Name: Lis Phelan Date: 08/21/23 Length of Visit: 40 minutes Visit Type: Office PCP: Gómez Physician Resident: Yevgeniy Reason for Referral: Depression Symptom Check Check-in: How have things been since our last session? Not much has changed Current Mood: Tired Sleep: Not sleeping well, waking often Appetite: Eating good, but less due to Mounjaro Medication compliance: Yes Current Stressors: 12 yo daughter keeps getting into trouble at school Substance usage: na Progress towards Goals Goals: Want happiness/iris back Coping skills What is going well? Interested in trying EMDR treatment for trauma Any barriers to achieving your goal? Still having nightmares Mental Status Examination Lis Phelan presents as alert, vigilant. Her appearance is noted to be well groomed and appropriately dressed to season. Lis's behavior presents as calm and cooperative. Lis's eye contact is noted to be good. Speech is noted to be clear , organized, and normal rate and rhythm. Nathalias thoughts are noted to be goal-directed, linear, and circumstantial. She reports mood to be depressed and irritable. Her affect is noted to be congruent with presentation. Insight and judgement are noted to be fair. Behavioral Health Measures Depression Screen Positive: PHQ-2 score >= 3 or PHQ-9 score >= 9 PHQ-2 Total: 4 (08/21/2023 1:00 PM) PHQ-9 Total: 12 (08/21/2023 1:00 PM) DEPRESSION PLAN OF CARE Her depression screen was positive. She is currently managed by Behavioral Health/Collaborative Care Anxiety Score: 3 (08/21/2023 1:00 PM) Provisional Diagnosis: Recurrent major depressive disorder, in remission F33.40 Generalized anxiety disorder F41.1 Patient Summary: Savanna updated the depression/anxiety scales: PHQ9 (12), GAD7 (3). Reported that sheis still not sleeping well due to nightmares, body pain, and noises easily and often waking her. Therapist discussed Dr. Hinton's recommendation for EMDR and/or Trauma Based Therapy. She was interested and will look for a therapist with those qualifications on [place]. Savanna is also interested in talking to the nurse practitioner or About trying Prazosin to address the nightmares. Plan: Lis will focus on improving their personal basics such as hydration, nutrition, medication compliance, sleep hygiene and movement/exercise. Will look for a trauma therapist. Schedule Follow Up: Next Appointment: 09/18/23 @ 1 PM in office Discuss with Psychiatric Cutter Operator Asbestos Shingle? No Beni Kaur STRAIGHTENER documented in this encounter Plan of Treatment Upcoming Encounters Date Type Department Care Team (Late st Contact Info) Description 06/20/2024 9:30 AM GEAR STRAIGHTENER Office Visit [facility] Orthopedic Surgery at the [facility] [address] [address] [place] [address] [place] [address] [place] [address] 10/27/2024 2:45 PM CDT Office Visit [facility] Gastroenterology [facility] [address] [facility] [address] [place] [address] Bebo Benites MD [address] [facility] [address] [place] [address] documented as of this encounter Visit Diagnoses Diagnosis Recurrent major depressive disorder in remission- Primary Major depressive disorder, recurrent episode, in partial or unspecified remission Generalized anxiety disorder documented in this encounter Additional Health Concerns Assessment Noted Time PHQ-9 Depression Total Score: 4 08/21/19 24 1:00 PM GEAR STRAIGHTENER documented as of this encounter Care Teams Digital Forensics Examiner Relationship Specialty Start Date End Date Elma Magaña MD [address] [place] [address] PCP - General Family Practice 12/09/21 12/13/23 documented as of this encounter
--- OUTSIDE RECORDS SUMMARY | 2024-06-08 20:19 | XMS_ITS | Encounter Summary ---
Author Organization [facility] Address [address] [place] [address] Care Team Providers Care Editorial Cartoonist Name Role Phone Elma Magaña MD Primary Care Provider [phone] Reason for Visit * Reason Comments Medication Refill Encounter Details Date Type Department Care Team (Latest Contact Info) Description 10/07/2022 3:40 PM CDT Clinical Support [facility] at [facility] [employer] [place] [address] [place] [address] Encounter for issue of repeat prescription (Primary [...] Progress Notes * Henrietta Andrade, SATURNINO - 10/07/2022 3:45 PM CDT Bupropion 150mg BID #180, Sertraline 100mg QD #30. No refills. Picked up by pt's mother, Luba. documented in this encounter Plan of Treatment Upcoming Encounters Date Type Department Care Team (Late st Contact Info) Description 06/20/2024 9:30 AM FORM TAMPING MACHINE OPERATOR Office Visit [facility] Orthopedic Surgery at the [facility] Medicine [address] [place] [address] [place] [address] [place] [address] 10/27/2024 2:45 PM CDT Office Visit [facility] Gastroenterology [facility] [address] [facility] [facility] [address] [place] [address] Bebo Benites MD [address] [facility] [address] [place] [address] documented as of this encounter Visit Diagnoses Diagnosis Encounter for issue of repeat prescription- Primary Issue of repeat prescriptions documented in this encounter Additional Health Concerns Assessment Noted Time PHQ-9 Depression Total Score: 3 07/04/19 23 9:00 AM FORM TAMPING MACHINE OPERATOR documented as of this encounter Care Teams Editorial Cartoonist Relationship Specialty Start Date End Date Elma Magaña MD [address] [place], [place] [address] [place] [address] PCP - General Family Practice 12/09/21 12/13/23 documented as of this encounter
--- OUTSIDE RECORDS SUMMARY | 2024-06-08 20:19 | XMS_ITS | Encounter Summary ---
Author Organization [facility] Address [address] [place] [address] Care Team Providers Care Hospice Chaplain Name Role Phone Elma Magaña MD Primary Care Provider [phone] Encounter Details Date Type Department Care Team (Late st Contact Info) Description 11/26/2023 External Device Data STL ABSTRACTION Provider, Abstract [...] (Late Contact Info) Description 06/20/2024 9:30 AM TOOLROOM HELPER Office Visit [facility] Orthopedic Surgery at the [facility] Medicine [address] [facility] [address] [place] [address] [place] [address] [place] [address] 10/27/2024 2:45 PM CDT Office Visit [facility] Gastroenterology [facility] [address] [address] [facility] [address] [place] [address] Bebo Benites MD [address] [address] documented as of this encounter Visit Diagnoses Not on filedocumented in this encounter Additional Health Concerns Assessment Noted Time PHQ-9 Depression Total Score: 4 08/21/19 24 1:00 PM TOOLROOM HELPER documented as of this encounter Care Teams Hospice Chaplain Relationship Specialty Start Date End Date Elma Magaña MD [address] [place] [address] PCP - General Family Practice 12/09/21 12/13/23 documented as of this encounter
--- OUTSIDE RECORDS SUMMARY | 2024-06-08 20:19 | XMS_ITS | Encounter Summary ---
Author Organization [facility] Address [address] [place] [address] Care Team Providers Care Industrial Workers Name Role Phone Elma Magaña MD Primary Care Provider [phone] Reason for Visit * Reason Comments Medication Refill Encounter Details Date Type Department Care Team (Latest Contact Info) Description 07/30/2023 7:20 AM RESERVATIONIST Procedure visit [facility] at Work [employer] [place] [address] [place] [address] Encounter for issue of repeat prescription (Primary [...] this encounter Progress Notes * Henrietta Andrade, RN - 07/30/2023 7:54 AM CST Lisinopril 10mg QD #100, Escitalopram 10mg QD #90 RVATIONIST documented in this encounter Plan of Treatment Upcoming Encounters Date Type Department Care Team (Late st Contact Info) Description 06/20/2024 9:30 AM RESERVATIONIST Office Visit [facility] Surgery at the [facility] [address] [place] [address] [place] [address] [place] [address] 10/27/2024 2:45 PM CDT Office Visit [facility] Gastroenterology [address] [facility] [address] [place] [address] Bebo Benites MD [address] [facility] [address] [place] [address] documented as of this encounter Visit Diagnoses Diagnosis Encounter for issue of repeat prescription- Primary Issue of repeat prescriptions documented in this encounter Additional Health Concerns Assessment Noted Time PHQ-9 Depression Total Score: 5 07/10/19 24 1:00 PM RESERVATIONIST documented as of this encounter Care Teams Industrial Workers Relationship Specialty Start Date End Date Elma Magaña MD [address] [place] [phone] PCP - General Family Practice 12/09/21 12/13/23 documented as of this encounter
--- OUTSIDE RECORDS SUMMARY | 2024-06-08 20:19 | XMS_ITS | Encounter Summary ---
Author Organization [facility] Address [address] [place] [address] Care Team Providers Care Engraving Plate Maker Name Role Phone Bijal Wolfe MD Primary Care Provider [phone] Reason for Visit * Reason Onset Date Comments Medication Refill 02/15/2024 Encounter Details Date Type Department Care Team (Late st Contact Info) Description 02/15/2024 Refill [facility] [employer] [place] [address] [place] [address] [place] [address] [facility] [address] [place] [address] Type 2 diabetes mellitus without complication, without long-term current use of insulin; Severe obesity (BMI 35.0-39.9) with comorbidity Social [...] Telephone Encounter - Luba Vuong ANP - 02/15/2024 10:50 AM CDT Due for DM visit in Feb. Labs ordered to be done day of or prior to appointment. * Telephone Encounter - Henrietta Andrade RN - 02/15/2024 10:10 AM CDT Last refilled: 08/27/23 Quantity given: 6ml Number of refills: 1 Last appointment: 12/28/2023 Last Labs: 08/27/2023 Pantoprazole last filled 05/07/23 #90 with 4 refills but pt requesting both prescriptions be sent to [facility] documented in this encounter Plan of Treatment Upcoming Encounters Date Type Department Care Team (Late st Contact Info) Description 06/20/2024 9:30 AM DIGITAL RESEARCH ANALYST Office Visit [facility] Orth[facility] Surgery at the [facility] [address] [facility] [address] [place] [address] [place] [address] [place] [address] 10/27/2024 2:45 PM CDT Office Visit [facility] G[facility] [address] [facility] [address] [place] [address] Bebo Benites MD [address] [address] Scheduled Orders Name Type Priority Associated Diagnoses Orde r Schedule HEMOGLOBIN A1C Lab Routine Type 2 diabetes mellitus without complication, without long-term current use of insulin Expected: 02/15/2024, Expires: 02/14/2025 LIPID PANEL Lab Routine Type 2 diabetes mellitus without complication, without long-term current use of insulin Expected: 02/15/2024, Expires: 02/14/2025 TSH REFLEXIVE Lab Routine Type 2 diabetes mellitus without complication, without long-term current use of insulin Expected: 02/15/2024, Expires: 02/14/2025 COMPREHENSIVE METABOLIC PANEL Lab Routine Type 2 diabetes mellitus without complication, without long-term current use of insulin Expected: 02/15/2024, Expires: 02/14/2025 documented as of this encounter Visit Diagnoses Diagnosis Type 2 diabetes mellitus without complication, without long-term current use of insulin Severe obesity (BMI 35.0-39.9) with comorbidity documented in this encounter Additional Health Concerns Assessment Noted Time PHQ-9 Depression Total Score: 4 08/21/19 24 1:00 PM DIGITAL RESEARCH ANALYST documented as of this encounter Care Teams Engraving Plate Maker Relationship Specialty Start Date End Date Bijal Wolfe MD [address] [place] [phone] PCP - General Internal Medicine 12/14/23 documented as of this encounter
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
--- OUTSIDE RECORDS SUMMARY | 2024-06-08 20:19 | XMS_ITS | Encounter Summary ---
Author Organization [facility] Address [address] [place] [address] Care Team Providers Care Criminalist Technician Name Role Phone Elma Magaña MD Primary Care Provider [phone] Reason for Visit * Reason Onset Date Comments Appointment Verification 07/03/2022 Encounter Details Date Type Department Care Team (Late st Contact Info) Description 07/03/[address] [facility] [employer] [place] [address] [place] [address] Elma Magaña MD [address] [place] [address] Appointment Verification Social History Tobacco Use Types Packs/Day Years [...] encounter Miscellaneous Notes * Telephone Encounter - Yazmin Sullivan - 07/03/2022 1:24 PM CST LVM with a reminder for patients upcoming appointment on 07/04/22 at 9:00 am at the [facility] center. ESS REPAIRER documented in this encounter Plan of Treatment Upcoming Encounters Date Type Department Care Team (Late st Contact Info) Description 06/20/2024 9:30 AM HARNESS REPAIRER Office Visit [facility] Orthopedic Surgery at the [facility] [address] [facility] [address] [place] [phone] [place] [address] [place] [address] 10/27/2024 2:45 PM CDT Office Visit [facility] Gastroenterology [facility] [address] [facility] [address] [place] [address] Bebo Benites MD [address] [facility] [address] [place] [address] documented as of this encounter Visit Diagnoses Not on filedocumented in this encounter Additional Health Concerns Assessment Noted Time PHQ-9 Depression Total Score: 4 11/30/19 22 2:00 PM CDT documented as of this encounter Care Teams Criminalist Technician Relationship Specialty Start Date End Date Elma Magaña MD [address] [place] [phone] PCP - General Family Practice 12/09/21 12/13/23 documented as of this encounter
--- OUTSIDE RECORDS SUMMARY | 2024-06-08 20:19 | XMS_ITS | Encounter Summary ---
Author Organization [facility] Address [address] [place] [address] Care Team Providers Care Cryptologic Support Specialist Name Role Phone Elma Magaña MD Primary Care Provider [phone] Reason for Visit * Reason Comments Labs Only Encounter Details Date Type Department Care Team (Latest Contact Info) Description 01/14/2023 7:20 AM CDT Procedure visit [facility] [employer] [place] [address] [place] [address] Type 2 diabetes mellitus without complication, without long-term current use of insulin; Mixed hyperlipidemia Social History Tobacco Use Types Packs/Day Years [...] of this encounter Progress Notes * Henrietta Anrdade RN - 01/14/2023 7:49 AM CDT Pt presents for repeat labs. Left AC unsuccessful, left hand successful, 2 sticks. Pt tolerated well. documented in this encounter Miscellaneous Notes * Result Encounter Note - Elma Magaña MD - 01/16/2023 1:37 PM CDT [facility] documented in this encounter Plan of Treatment Upcoming Encounters Date Type Department Care Team (Late st Contact Info) Description 06/20/2024 9:30 AM ENVIRONMENTAL COMPLIANCE OFFICER Office Visit [facility] Orth[facility] Surgery at the [facility] [address] [facility] [address] [place] [address] [place] [address] [place] [address] 10/27/2024 2:45 PM CDT Office Visit [facility] Gastro[facility] [place] [address] [facility] [address] [place] [address] Bebo Benites MD [address] [facility] [address] [place] [address] documented as of this encounter Procedures Procedure Name Priority Date/Time Associated Diagnosis Comments HEMOGLOBIN A1C Routine 01/14/2023 7:28 AM CDT Type 2 diabetes mellitus without complication, without long-term current use of insulin Mixed hyperlipidemia VITAMIN B12 LEVEL Routine 01/14/2023 7:2 8 AM CDT Type 2 diabetes mellitus without complication, without long-term current use of insulin Mixed hyperlipidemia LIPID PANEL Routine 01/14/2023 7:28 AM CDT Type 2 diabetes mellitus without complication, without long-term current use of insulin Mixed hyperlipidemia BASIC METABOLIC PANEL Routine 01/14/2023 7:28 AM CDT Type 2 diabetes mellitus without complication, without long-term current use of insulin Mixed hyperlipidemia documented in this encounter Results * VITAMIN B12 LEVEL (01/14/2023 7:28 AM CDT) VITAMIN B12 792 200 - 1100 pg/mL [facility]ado Comment: Test Performed at: [facility] [address] ??[phone] Molina Pascual MD Blood 01/14/2023 7:28 AM CDT 01/15/2023 2:33 AM CDT Elma Magaña MD CHEMISTRY ORDERABLES Performing Organization Address City/State/[facility] Phone Number [facility] [phone] [facility] [address] [place] [address] * HEMOGLOBIN A1C (01/14/2023 7:28 AM CDT) HEMOGLOBIN A1C 5.4 <5.7 % of total Hgb [facility] oneyda Will Comment: For the purpose of screening for the presence of diabetes: <5.7% ? Consistent with the absence of diabetes 5.7-6.4% ?Consistent with increased risk for diabetes ?(prediabetes) > or =6.5% ??Consistent with diabetes This assay result is consistent with a decreased risk of diabetes. Currently, no consensus exists regarding use of hemoglobin A1c for diagnosis of diabetes in children. According to [place] Diabetes Association (ADA) guidelines, hemoglobin A1c <7.0% represents optimal control in non- diabetic patients. Different metrics may apply to specific patient populations. Standards of Medical Care in Diabetes(ADA). ?? ESTIMATED AVERAGE GLUCOSE (MG/DL) 108 mg/dL [facility] Will ESTIMATED AVERAGE GLUCOSE (MMOL/L) 6.0 mmol/L [employer] [facility] oneyda Will Comment: Test Performed at: [facility] [address] [place], [place] ??[address] Molina Pascual Blood 01/14/2023 7:28 AM CDT 01/15/2023 2:33 AM CDT Elma Magaña MD CHEMISTRY ORDERABLES Performing Organization Address City/State/ZIP [facility] Phone Number [facility] [phone] [facility] [address] [place] [address] * (ABNORMAL) LIPID PANEL (01/14/2023 7:28 AM CDT) CHOLESTEROL 184 <200 mg/dL [facility] HDL 48(L) > OR = 50 mg/dL [facility] oneyda Suman TRIGLYCERIDE 167(H) <150 mg/dL [facility] oneyda Suman LDL CALCULATED 108(H) mg/dL (calc) [facility] Comment: Reference range: <100 Desirable range <100 mg/dL for primary prevention; ?? <70 mg/dL for patients with CHD or diabetic patients with > or = 2 CHD risk factors. LDL-C is now calculated using the Medardo calculation, which is a validated novel method providing better accuracy than the Friedewald equation in the estimation of LDL-C. Tito CORTES et al. JOSUE. 2013;310(19): 1600-3207 (http://education.Swing by Swing/faq/UVH810) CHOL/HDL RATIO 3.8 <5.0 (calc) [facility] oneyda Suman TOTAL NON-HDL CHOL(LDL+VLDL) 136(H) <130 mg/dL (calc) [facility] oneyda Suman Comment: For patients with diabetes plus 1 major ASCVD risk factor, treating to a non-HDL-C goal of <100 mg/dL (LDL-C of <70 mg/dL) is considered a therapeutic option. Test Performed at: [facility] [address] [place] ??[phone] Molina Pascual Blood 01/14/2023 7:28 AM CDT 01/15/2023 2:33 AM CDT Elma Magaña MD CHEMISTRY ORDERABLES [facility] [phone] [place] [address] [place] [address] * (ABNORMAL) BASIC METABOLIC PANEL (01/14/2023 7:28 AM CDT) GLUCOSE 124(H) 65 - 99 mg/dL [facility] Comment: ? Fasting reference interval For someone without known diabetes, a glucose value between 100 and 125 mg/dL is consistent with prediabetes and should be confirmed with a follow-up test. BUN 12 7 - 25 mg/dL [facility] CREATININE 0.78 0.50 - 0.97 mg/dL [facility] GFR 101 > OR = 60 mL/min/1 .73m2 [facility] Comment: The eGFR is based on the CKD-EPI 2020 equation. To calculate the new eGFR from a previous Creatinine or Cystatin C result, go to https://www.kidney.org/professionals/ kdoqi/gfr%5Fcalculator BUN/CREAT RATIO NOT APPLICABLE (calc) [facility] SODIUM 136 135 - 146 mmol/L [facility] POTASSIUM 4.3 3.5 - 5.3 mmol/L [facility] CHLORIDE 105 98 - 110 mmol/L [facility] CO2 18(L) 20 - 32 mmol/L [facility] CALCIUM 9.2 8.6 - 10.2 mg/dL [facility] Comment: Test Performed at: [place] [address] [place] ??[phone] [facility] Blood 01/14/2023 7:28 AM CDT 01/15/2023 2:33 AM CDT Elma Magaña MD CHEMISTRY ORDERABLES [facility] [phone] [place] [address] [place] [address] documented in this encounter Visit Diagnoses Diagnosis Type 2 diabetes mellitus without complication, without long-term current use of insulin Mixed hyperlipidemia documented in this encounter Additional Health Concerns Assessment Noted Time PHQ-9 Depression Total Score: 3 07/04/19 23 9:00 AM ENVIRONMENTAL COMPLIANCE OFFICER documented as of this encounter Care Teams Cryptologic Support Specialist Relationship Specialty Start Date End Date Elma Magaña MD [address] [place] [address] PCP - General Family Practice 12/09/21 12/13/23 documented as of this encounter
--- OUTSIDE RECORDS SUMMARY | 2024-06-08 20:19 | XMS_ITS | Encounter Summary ---
Author Organization [facility] Address [address] [place] [address] Care Team Providers Care Supervisor Communications And Signals Name Role Phone Elma Magaña MD Primary Care Provider [phone] Reason for Visit * Reason Comments Follow Up Encounter Details Date Type Department Care Team (Late st Contact Info) Description 10/08/2022 10:00 AM CDT Video Visit [facility] Work [employer] [place] [address] [place] [address] Elma Magaña MD [address] [place] [address] Morbid obesity with body mass index of 40.0-49.9 (Primary Dx) Social History Tobacco Use Types [...] as of this encounter Progress Notes * Elma Magaña MD - 10/08/2022 10:12 AM CDT TELEPHONE PROGRESS NOTE DATE: 10/08/2022 PATIENT: Lis Phelan : 1985 PCP: Elma Magaña MD Chief Complaint Patient presents with Follow Up HISTORY OF PRESENT ILLNESS 37 yo wf on telephone visit. She is tolerating this dose well. She is on 2.5mg now. She has not noticed much appetite suppression. She would like to increase to the 5mg dose. Her lymph nodes and headaches have improved. Patient is aware of the interaction bw mounjaro and her ocp. She wants to continue both for now until she sees her furnace repair mechanic. She states that she is not currently sexually active while on these two meds. PAST MEDICAL HISTORY: Past Medical History: Diagnosis [...] RELEASE performed by Paddy Mackey MD at [facility] CC OR HX GASTROSCHISIS CLOSURE HX HAND SURGERY Right 4th digit HX RHINOPLASTY Bilateral 12/20/2020 HX SURGICAL OTHER 04/2004 adhesion removed HX TURBINATE RESECTION Right 12/20/2020 LA CHOLECYSTECTOMY N/A 11/03/2019 OPEN CHOLECYSTECTOMY performed by Gabbie Wheeler MD at [facility] OR MAIN LA COLONOSCOPY FLX DX W/COLLJ SPEC WHEN PFRMD N/A 02/10/2022 checkout COLONOSCOPY performed by Bebo Benites MD at [facility] GI LAB LA ESOPHAGOGASTRODUODENOSCOPY TRANSORAL DIAGNOSTIC N/A 05/17/2019 ESOPHAGOGASTRODUODENOSCOPY performed by Jena Cerda MD at [facility] GI LAB LA ESOPHAGOGASTRODUODENOSCOPY TRANSORAL DIAGNOSTIC N/A 02/10/2022 checkout ESOPHAGOGASTRODUODENOSCOPY performed by Bebo Benites MD at [facility] GI LAB CURRENT MEDICATIONS Current Outpatient Medications Medication Sig Dispense Refill tirzepatide (Mounjaro) 5 mg/0.5 mL Pen Injector Inject 5 mg by subcutaneous injection every 7 days.2 mL 0 sertraline (ZOLOFT) 100 mg tablet [...] Tablet 0 fluticasone propionate (FLONASE) 50 mcg/spray [place], Suspension nasal inhaler Administer 2 Sprays in [...] mg by mouth daily. [DISCONTINUED] tirzepatide (Mounjaro) 2.5 mg/0.5 mL Pen Injector Inject 2.5 mg by subcutaneous injection every 7 days. 2 mL 0 No current facility-administered medications for this visit. ALLERGIES Allergies Allergen Reactions Tramadol Hives Varenicline Anaphylaxis Metronidazole Nausea and Vomiting Other reaction(s): Vomiting Meperidine Swelling TOBACCO COUNSELING She is not a tobacco user. REVIEW OF SYSTEMS As in HPI PHYSICAL EXAMINATION Telephone Visit - Patient does not sound to be in any distress. Normal speech and normal voice. No audible cough or wheeze. A/P Lis was seen today for follow up. Diagnoses and all orders for this visit: Morbid obesity with body mass index of 40.0-49.9 - tirzepatide (Mounjaro) 5 mg/0.5 mL Pen Injector; Inject 5 mg by subcutaneous injection every 7 days. FOLLOW UP Data Unavailable Elma Magaña MD 10/08/2022 [facility] AT WORK [address] [address] This encounter was completed via audio-only two way synchronous communication. Patient's identity confirmed yes Patient gave verbal consent to have these services billed to their insurance and expressed understanding that co-insurance and deductible may apply: yes Time spent by the provider delivering the care documented in this encounter 24 minutes. documented in this encounter Plan of Treatment Upcoming Encounters Date Type Department Care Team (Late st Contact Info) Description 06/20/2024 9:30 AM DIRECTOR TRANSPORTATION Office Visit [facility] Orth[facility] Surgery at the [facility] [address] [facility] [address] [place] [address] [place] [address] [place] [address] 10/27/2024 2:45 PM CDT Office Visit [facility] [address] [facility] [address] [place] [address] Bebo Benites MD [address] [facility] [address] [place] [address] documented as of this encounter Visit Diagnoses Diagnosis Morbid obesity with body mass index of 40.0-49.9- Primary documented in this encounter Additional Health Concerns Assessment Noted Time PHQ-9 Depression Total Score: 3 07/04/19 23 9:00 AM DIRECTOR TRANSPORTATION documented as of this encounter Care Teams Supervisor Communications And Signals Relationship Specialty Start Date End Date Elma Magaña MD [address] [place] [phone] PCP - General Family Practice 12/09/21 12/13/23 documented as of this encounter
--- OUTSIDE RECORDS SUMMARY | 2024-06-08 20:19 | XMS_ITS | Encounter Summary ---
Author Organization [facility] Address [address] [place] [address] Care Team Providers Care Slot Machine Floor Person Name Role Phone Elma Magaña MD Primary Care Provider [phone] Reason for Visit * Reason Onset Date Comments Medication Refill 01/14/2023 Encounter Details Date Type Department Care Team (Late st Contact Info) Description 01/14/2023 Refill [facility] [place] [address] [place] [phone] Elma Magaña MD [address] [place] [phone] Type 2 diabetes mellitus without complication, [...] encounter Miscellaneous Notes * Telephone Encounter - Saida Valdez - 01/15/2023 1:22 PM CDT Patient called to check status of medication. * Telephone Encounter - Johnna Lin RN - 01/14/2023 7:47 AM CDT Requesting Refills. Last Visit on 11/12/22. Fasting labs drawn this morning. Metformin; Last refill 06/11/22 Lisinopril;Last refill 12/15/22 Rosuvastatin; Last Refill 04/16/21 Lexapro; Last Refill 11/24/22 Discussed taking medication daily as prescribed, suggested ways to remember evening medication, take at dinner time, set medication next to toothbrush. Patient verbalized understanding and plans to set an alarm. documented in this encounter Plan of Treatment Upcoming Encounters Date Type Department Care Team (Late st Contact Info) Description 06/20/2024 9:30 AM PRACTICE CONSULTANT Office Visit [facility] Orthopedic Surgery at the [facility] [address] [place] [phone] [place] [address] [place] [address] 10/27/2024 2:45 PM CDT Office Visit [facility] G[facility]enterology [facility] [address] [place] [phone] Bebo Benites MD [address] [place] [phone] documented as of this encounter Visit Diagnoses Diagnosis Type 2 diabetes mellitus without complication, without long-term current use of insulin documented in this encounter Additional Health Concerns Assessment Noted Time PHQ-9 Depression Total Score: 3 07/04/19 23 9:00 AM PRACTICE CONSULTANT documented as of this encounter Care Teams Slot Machine Floor Person Relationship Specialty Start Date End Date Elma Magaña MD [address] [place] [address] PCP - General Family Practice 12/09/21 12/13/23 documented as of this encounter
--- OUTSIDE RECORDS SUMMARY | 2024-06-08 20:19 | XMS_ITS | Encounter Summary ---
Author Organization [facility] Address 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 Phone Bijal Wolfe MD Primary Care Provider Reason for Visit * Reason Comments Buttocks pain Encounter Details Date Type Department Care Team (Late st Contact Info) Description 12/28/2023 3:00 PM CDT Office Visit [facility] [place] [address] [place] [address] NP [address] [place] [address] Pain in right buttock (Primary Dx); Right sided sciatica Social History Tobacco Use Types Packs/Day Years [...] Sign Reading Time Taken Comments Blood Pressure 128/82 12/28/2023 2:56 PM CDT Pulse 81 12/28/2023 2:56 PM CDT Temperature 37.2 ??C (98.9 ??F) 12/28/2023 2:56 PM CD T Respiratory Rate 18 12/28/2023 2:56 PM CDT Oxygen Saturation 98% 12/28/2023 2:56 PM CDT Inhaled Oxygen Concentration - - Weight 101.2 kg (223 lb) 12/28/2023 2:56 PM CDT Height 167.6 cm (5' 6 ) 12/28/2023 2:56 PM CDT Body Mass Index 35.99 12/28/2023 2:56 PM CDT documented in this encounter Progress Notes * Luba Lane, MICHAEL - 12/28/2023 3:00 PM CDT Images from the original note were not included. [facility] Office Visit Progress Note DATE: 12/28/2023 PATIENT: Lis Phelan : 1985 PCP: Bijal Wolfe MD Chief Complaint Patient presents with Buttocks pain Subjective: HPI Patient is a 38 y.o. female with past medical history of arthritis, depression, DM, hypertension, hyperlipidemia, eosinophilic esophagitis, who presents today with complaint of: Pain of her right buttock X 3 weeks She does not recall any injuries Pain is a constant pressure , worse with sitting or lying No pain relief with Advil 400 mg every 6 hours Right sciatic pain Intermittent pain since 2018 after she fell on the ice. Sharp, achy pain that starts in her right buttock and radiates down her right leg to the posterior knee. She has never been evaluated for this. Pain occurs every 2-3 weeks, not severe enough to take OTC pain medications. Denies numbness, weakness, bowel/bladder changes. Review of Systems Constitutional: Negative for chills and fever. HENT: Negative. Respiratory: Negative for shortness of breath. Cardiovascular: Negative for chest pain and palpitations. Gastrointestinal: Negative for abdominal pain, diarrhea, nausea and vomiting. Genitourinary: Negative. Musculoskeletal: Negative for back pain, joint pain and neck pain. Skin: Negative for itching and rash. Neurological: Negative for dizziness and headaches. Endo/Heme/Allergies: Negative. Psychiatric/Behavioral: Negative. Patient Active Problem List Diagnosis Code Mild intermittent asthma without complication J45.20 Type 2 diabetes mellitus without complication, without long-term current use of insulin E11.9 Hyperlipidemia E78.5 Microalbuminuria R80.9 History of gastroschisis Z87.761 Herpes simplex type 2 infection B00.9 Irregular periods N92.6 HTN (hypertension), benign I10 GERD (gastroesophageal reflux disease) K21.9 Major depression F32.9 Vitamin D insufficiency E55.9 Severe obesity (BMI 35.0-39.9) with comorbidity E66.01 Nightmares associated with chronic post-traumatic stress disorder F51.5, F43.12 Past Medical History: Diagnosis Date Arthritis Asthma [...] RELEASE performed by Paddy Mackey MD at [facility] CC OR HX GASTROSCHISIS CLOSURE HX HAND SURGERY Right 4th digit HX RHINOPLASTY Bilateral 12/20/2020 HX SURGICAL OTHER 04/2004 adhesion removed HX TURBINATE RESECTION Right 12/20/2020 IA CHOLECYSTECTOMY N/A 11/03/2019 OPEN CHOLECYSTECTOMY performed by Gabbie Wheeler MD at [facility] OR MAIN IA COLONOSCOPY FLX DX W/COLLJ SPEC WHEN PFRMD N/A 02/10/2022 checkout COLONOSCOPY performed by Bebo Benites MD at [facility] GI [facility] IA ESOPHAGOGASTRODUODENOSCOPY TRANSORAL DIAGNOSTIC N/A 05/17/2019 ESOPHAGOGASTRODUODENOSCOPY performed by Jena Cerda MD at [facility] IA ESOPHAGOGASTRODUODENOSCOPY TRANSORAL DIAGNOSTIC N/A 02/10/2022 checkout ESOPHAGOGASTRODUODENOSCOPY performed by Bebo Benites MD at [facility] Immunization History Administered Date(s) Administered (PNEUMOVAX 23)(50 YRS UP) PNEUMOCOCCAL POLYSACCHARIDE (PPV23) 0.5 ML, IM 11/05/2018 INFLUENZA VACCINE QUADRIVALENT 3 YR UP PF IM 04/01/2017 INFLUENZA VACCINE QUADRIVALENT 6 MOS UP IM 03/25/2018, 03/23/2019 Social History Tobacco Use Smoking status: Former Current packs/day: 0.00 Average packs/day: 1 pack/day for 10.0 years (10.0 ttl pk-yrs) Types: Cigarettes Start date: 03/02/2006 Quit date: 03/02/2016 Years since quittin.8 Smokeless tobacco: Never Substance Use Topics Alcohol use: No Family History Problem Relation Name Age of Onset Lung Cancer Father Stroke Father Hypertension Mother High Cholesterol Mother Unknown Brother Unknown Maternal Grandmother Unknown Maternal Grandfather Diabetes Paternal Grandmother Kidney Disease Paternal Grandfather No Known Problems Daughter No Known Problems Son Colon Cancer Neg Hx Celiac Disease Neg Hx Inflammatory Bowel Disease Neg Hx Crohn's Disease Neg Hx Current Outpatient Medications on File Prior to Visit Medication Sig Dispense Refill escitalopram oxalate (LEXAPRO) 10 mg tablet Take 1 Tablet (10 mg) by mouth daily. 90 Tablet 0 lisinopriL (PRINIVIL) 10 mg tablet Take 1 Tablet (10 mg) by mouth daily. 90 Tablet 0 buPROPion HCL (Wellbutrin XL) 300 mg Extended Release 24 hour tablet Take 1 Tablet (300 mg) by mouth daily in the morning. 90 Tablet 0 metFORMIN (GLUCOPHAGE) 500 mg tablet Take 1 Tablet (500 mg) by mouth 2 times daily with meals. 180 Tablet 0 rosuvastatin (CRESTOR) 40 mg tablet Take 1 Tablet (40 mg) by mouth daily at bedtime. 90 Tablet 0 prazosin (MINIPRESS) 1 mg capsule Take 1-2 Capsules (1-2 mg) by mouth daily at bedtime. For nightmares. 60 Capsule 1 tirzepatide (Mounjaro) 10 mg/0.5 mL Pen Injector Inject 10 mg by subcutaneous injection every 7 days. 6 mL 1 pantoprazole (PROTONIX) 40 mg Tablet, Delayed Release (E.C.) Take 1 Tablet (40 mg) by mouth daily. 90 Tablet 4 cholecalciferol, vitamin D3, 1,000 unit Take by mouth. albuterol sulfate 90 mcg/Actuation inhaler Take 1-2 Puffs by inhalation every 4 hours as needed forShortness of Breath or Wheezing. 6.7 Gram 6 cetirizine (ZyrTEC) 10 mg tablet Take 10 mg by mouth daily. naproxen (NAPROSYN) 500 mg tablet Take 1 Tablet (500 mg) by mouth 2 times daily as needed for mild or moderate pain. 20 Tablet 0 Nexplanon 68 mg Implant Inject 68 mg by subcutaneous injection one time only. fluticasone propionate (FLONASE) 50 mcg/spray [place], Suspension nasal inhaler Administer 2 Sprays in each nostril daily. 16 Gram 0 ALPRAZolam (XANAX) 0.25 mg tablet Take 1 Tablet (0.25 mg) by mouth 2 times daily as needed for Anxiety. 15 Tablet 0 No current facility-administered medications on file prior to visit. Objective: Vital signs: BP 128/82 Pulse 81 Temp 98.9 ??F (37.2 ??C) (Tympanic) Resp 18 Ht 5' 6 (1.676 m) Wt 101.2 kg (223 lb) SpO2 98% BMI 35.99 kg/m?? Physical Exam Constitutional: Appearance: Normal appearance. She is well-developed. HENT: Head: Normocephalic. Right Ear: External ear normal. Left Ear: External ear normal. Nose: Nose normal. Mouth/Throat: Mouth: Mucous membranes are moist. Pharynx: Oropharynx is clear. Eyes: Extraocular Movements: Extraocular movements intact. Conjunctiva/sclera: Conjunctivae normal. Cardiovascular: Rate and Rhythm: Normal rate and regular rhythm. Pulses: Normal pulses. Heart sounds: Normal heart sounds, S1 normal and S2 normal. No murmur heard. Pulmonary: Effort: Pulmonary effort is normal. Breath sounds: Normal breath sounds. Abdominal: General: Bowel sounds are normal. Palpations: Abdomen is soft. Tenderness: There is no abdominal tenderness. Musculoskeletal: General: Normal range of motion. Cervical back: Normal and normal range of motion. Thoracic back: Normal. Lumbar back: Normal. Right lower leg: Tenderness present. No deformity. No edema. Left lower leg: No deformity or tenderness. No edema. Legs: Skin: General: Skin is warm and dry. Neurological: General: No focal deficit present. Mental Status: She is alert. Psychiatric: Attention and Perception: Attention normal. Mood and Affect: Mood normal. Behavior: Behavior normal. Thought Content: Thought content normal. Lab Results Component Value Date/Time WBC 8.6 08/27/2023 02:38 PM HGB 13.1 08/27/2023 02:38 PM HCT 39.4 08/27/2023 02:38 PM PLT 178 08/27/2023 02:38 PM MCV 93.6 08/27/2023 02:38 PM Lab Results Component Value Date/Time NA 138 03/25/2023 09:58 PM K 4.0 03/25/2023 09:58 PM CL 102 03/25/2023 09:58 PM CO2 23 03/25/2023 09:58 PM CA 9.7 03/25/2023 09:58 PM BUN 10 03/25/2023 09:58 PM CREAT 0.73 03/25/2023 09:58 PM GLUCOSE TNP 08/27/2023 02:38 PM TOTALPROTEIN 7.9 03/25/2023 09:58 PM ALBUMIN 4.7 03/25/2023 09:58 PM BILITOTAL 0.3 03/25/2023 09:58 PM ALKPHOS 81 03/25/2023 09:58 PM AST 30 03/25/2023 09:58 PM ALT 33 03/25/2023 09:58 PM ANIONGAP 13 03/25/2023 09:58 PM BCRATIO NOT APPLICABLE 01/14/2023 07:28 AM Lab Results Component Value Date/Time CHOLTOT TNP 08/27/2023 02:38 PM HDL TNP 08/27/2023 02:38 PM LDLCALC TNP 08/27/2023 02:38 PM TRIGLYCERIDE TNP 08/27/2023 02:38 PM Lab Results Component Value Date/Time TSH TNP 08/27/2023 02:38 PM Lab Results Component Value Date/Time HGBA1C 5.4 08/27/2023 02:38 PM Blood Pressure BP Readings from Last 3 Encounters: 12/28/23 128/82 08/27/23 130/76 06/25/23 (!) 131/92 ASSESSMENT AND PLAN: 1. Pain in right buttock X3 weeks 2. Right sided sciatica Chronic, intermittent Alternate heat and ice therapy Recommend avoiding aggravating activities and prolonged sitting or standing Return to normal activities as soon as possible, although experiencing some discomfort during activities may be expected Recommend regular light exercises such as walking, swimming, or aqua therapy Follow through with physical therapy and x-ray. Patient would like to go to [facility] in [place]. Recommend Advil for pain Consider [facility] ANA Garcia-BC [facility] [employer] [facility] [address] [place] [address] [place] [address] [facility] [address] [place] [address] documented in this encounter Miscellaneous Notes * Patient Instructions - Luba Lane NP - 12/28/2023 3:09 PM CDT Alternate heat and ice therapy Recommend avoiding aggravating activities and prolonged sitting or standing Return to normal activities as soon as possible, although experiencing some discomfort during activities may be expected Recommend regular light exercises such as walking, swimming, or aqua therapy Follow through with physical therapy Recommend Advil for pain Consider [facility] documented in this encounter Plan of Treatment Upcoming Encounters Date Type Department Care Team (Late st Contact Info) Description 06/20/2024 9:30 AM CUSTODIAN Office Visit [facility] Orthopedic Surgery at the [facility] [address] [facility] [address] [place] [phone] [place] [address] [place] [address] 10/27/2024 2:45 PM CDT Office Visit [facility] Gastroenterology [facility] [address] [facility] [address] [place] [address] Bebo Benites MD [address] [facility] [address] [place] [address] Scheduled Orders Name Type Priority Associated Diagnoses Orde r Schedule XR SACRUM AND COCCYX Imaging Routine Pain in right buttock 1 Occurrences starting 12/28/2023 until 12/27/2024 documented as of this encounter Visit Diagnoses Diagnosis Pain in right buttock- Primary Mylagia and myositis, unspecified Right sided sciatica Sciatica documented in this encounter Additional Health Concerns Assessment Noted Time PHQ-9 Depression Total Score: 4 08/21/19 24 1:00 PM CUSTODIAN documented as of this encounter Care Teams Rotary Shear Worker Helper Relationship Specialty Start Date End Date Bijal Wolfe MD [address] [place] [phone] PCP - General Internal Medicine 12/14/23 documented as of this encounter
--- OUTSIDE RECORDS SUMMARY | 2024-06-08 20:19 | XMS_ITS | Encounter Summary ---
Author Organization [facility] Address [address] [place] [address] Care Team Providers Care Mix Chemist Name Role Phone Elma Magaña MD Primary Care Provider [phone] Reason for Visit * Reason Comments Back Pain Pt arrives to ED for back pain since last night. Pain located in the middle of her back. Pt reports pain when she pushes on her right flank. +nausea. Pt taking tylenol and ibuprofen without relief. Denies injury, urinary symptoms, fever/chills, or vomiting. * Auth/Cert (Routine) Specialty Diagnoses / Procedures Referred By Contac t Referred To Contact Emergency Medicine [facility] Emergency Dept [address] [place] [address] Referral ID Status Reason Start Date Expiration Date Visits Re quested Visits Authorized [id number] 1 1 Encounter Details Date Type Department Care Team (Late st Contact Info) Description 03/25/2023 9:01 PM CDT - 03/26/2023 12:04 PM CDT Emergency [facility] Emergency Clinical Decision Unit [address] [place] [address] Demario Koo DO [address] [place] [address] Right flank pain (Primary Dx); Pyelonephritis; Type 2 diabetes mellitus without complication, without long-term current use of insulin; HTN (hypertension), benign Discharge Disposition: Home or Self Care Social [...] Sign Reading Time Taken Comments Blood Pressure 119/77 03/26/2023 11:35 AM CDT Pulse 93 03/26/2023 11:35 AM CDT Temperature 36.8 ??C (98.2 ??F) 03/26/2023 11:35 AM C DT Respiratory Rate 20 03/26/2023 11:35 AM CDT Oxygen Saturation 96% 03/26/2023 11:35 AM CDT Inhaled Oxygen Concentration - - Weight 104.3 kg (230 lb) 03/25/2023 6:16 PM CDT Height 165.1 cm (5' 5 ) 03/25/2023 6:16 PM CDT Body Mass Index 38.27 03/25/2023 6:16 PM CDT documented in this encounter Discharge Summaries * Ann-Marie Curry PA-C - 03/26/2023 11:18 AM CDT HISTORY OF PRESENT ILLNESS Lis Phelan, a 38 y.o. female with flank pain PMHx: eosinophilic esophagitis, GERD, asthma, hyperlipidemia, headaches The patient presented to the ED with a chief complaint of back pain. Pain started yesterday. Described as sharp. Wraps around to her side. Coughing or passing gas makes the pain worse. Attempted resting, heating pad, Tylenol, ibuprofen at home which took the edge off , however did not fully make the pain go away. Some right CVA tenderness. No known injury. Denies constipation, nausea, vomiting, diarrhea, dysuria, urgency, frequency, fevers. Has been tolerating p.o. without issue. Low-grade fever in the ED of 99.1. Other vital signs stable. UA with 1+ leuk esterase, 2+ protein, 4+ urobilinogen, 3-5 white cells, and 1+ bacteria. Urine culture in process. CBC without acute abnormalities. CMP without significant acute abnormalities. Lipase within defined limits at 23. CT of theabdomen and pelvis without contrast noted history of cholecystectomy with prominence of the biliarytree likely secondary to reservoir effect. Nonobstructing right nephrolithiasis. Ovarian cyst on the right. Nondilated loops of bowel. Normal caliber abdominal aorta. No pathologic lymph nodes. No pneumoperitoneum or substantial free fluid or identifiable organized fluid collection. Scarring of theanterior abdominal wall from prior surgical incision. Normal saline and Rocephin given in the ED. She continues to have some flank pain today. No abdominal pain. No nausea, vomiting, fever. Does still have an appendix, but it is in the Q d/t h/o gastroschisis as an . CASE DISCUSSED Dr. Pride, ED MD Medications Administered During the ED Stay from 03/26/2023 0022 to 03/26/2023 1118 Date/Time Order Dose Route Action 03/26/2023 0129 CDT sodium chloride 0.9% infusion -- IV New Bag 03/26/2023 1020 CDT ketorolac (TORADOL) injection 10 mg 10 mg IV Given 03/26/2023 0129 CDT ketorolac (TORADOL) injection 10 mg 10 mg IV Given 03/26/2023 0207 CDT cyclobenzaprine (FLEXERIL) tablet 10 mg 10 mg Oral Given 03/26/2023 1020 CDT Lidocaine 4 % topical patch 1 Patch 1 Patch Topical Applied 03/26/2023 0859 CDT Lidocaine 4 % topical patch 1 Patch 0 Patch Topical Removed 03/26/2023 0207 CDT Lidocaine 4 % topical patch 1 Patch 1 Patch Topical Applied . New Prescriptions for this Encounter CEFDINIR (OMNICEF) 300 MG CAPSULE Take 1 Capsule (300 mg) by mouth every 12 hours for 7 days. NAPROXEN (NAPROSYN) 500 MG TABLET Take 1 Tablet (500 mg) by mouth 2 times daily as needed for Pain,Moderate or Pain, Mild. LAST VS BP: 119/84 (03/26/23 0400), Heart Rate: 92 bpm (03/25/23 1816), Resp: 17 (03/26/23 0400), Temp: 99.1 ??F (37.3 ??C) (03/25/231815), Temp src: Oral (03/25/231815), SpO2: 96 % (03/26/23 0400) Physical Exam: General appearance: alert, in no distress Head: atraumatic, Normocephalic, without obvious abnormality Lungs: clear to auscultation bilaterally, normal respiratory effort Heart: normal rate, regular rhythm, normal S1, S2, no murmurs, rubs, clicks or gallops Abdomen: soft, bowel sounds present, R CVAT, no lower quadrant tenderness URINALYSIS WITH REFLEX MICROSCOPIC - Abnormal Result Value COLOR UA Yellow CLARITY UA Slightly Cloudy (*) SPECIFIC GRAVITY UA 1.028 PH UA 6.0 LEUKOCYTE ESTERASE UA 1+ (*) NITRITE UA Negative PROTEIN UA 2+ (*) GLUCOSE UA Negative KETONES UA Negative UROBILINOGEN UA 4.0 (*) BILIRUBIN UA Negative BLOOD UA Negative WBC UA 3-5 (*) RBC UA 0-2 BACTERIA UA 1+ (*) EPITHELIAL CELLS, URINE 0-5 CALCIUM OXALATE, URINE Present (*) HCG QUALITATIVE, URINE - Abnormal HCG QUAL URINE Negative COLOR UA Yellow CLARITY UA Slightly Cloudy (*) COMPREHENSIVE METABOLIC PANEL - Normal SODIUM 138 POTASSIUM 4.0 CHLORIDE 102 CO2 23 CALCIUM 9.7 BUN 10 CREATININE 0.73 GLUCOSE 98 TOTAL PROTEIN 7.9 ALBUMIN 4.7 BILIRUBIN TOTAL 0.3 ALKALINE PHOSPHATASE 81 AST 30 ALT 33 GFR >60 ANION GAP 13 LIPASE - Normal LIPASE 23 URINE CULTURE CBC WITH DIFFERENTIAL WBC 9.3 RBC 4.31 HEMOGLOBIN 13.3 HEMATOCRIT 40.0 MCV 92.8 MCH 30.9 MCHC 33.3 RDW 13.4 RDW-STDEV 45.8 PLATELETS 342 MPV 9.5 NEUTROPHILS 54 LYMPHOCYTES 33 MONOCYTES 7 EOSINOPHILS 6 BASOPHILS 1 IMMATURE GRANULOCYTES 0 NEUTROPHIL ABSOLUTE 4.98 LYMPHOCYTE ABSOLUTE 3.03 MONOCYTE ABSOLUTE 0.68 EOSINOPHIL ABSOLUTE 0.53 BASOPHILS ABSOLUTE 0.05 IMMATURE GRANULOCYTES ABSOLUTE 0.02 CT ABDOMEN PELVIS WO CONTRAST Radiologist Impression IMPRESSION: 1. No acute traumatic findings. 2. Incidental findings as above. The examination was performed with the adjustment of mA according to the patient size and/or the use of Iterative Reconstruction Technique. DICTATION LOCATION: Location 4 CLINICAL IMPRESSION Final diagnoses: [R10.9] Right flank pain (Primary) [N12] Pyelonephritis [E11.9] Type 2 diabetes mellitus without complication, without long-term current use of insulin [I10] HTN (hypertension), benign Pyelonephritis -38-year-old female with history of hypertension, GERD, asthma, EOE, congenital nonrotation of the bowel, who presented the emergency department with right flank pain that started 1 day ago which is sharp in nature and radiates around to her right lower quadrant. Attempted ibuprofen, Tylenol at home without significant improvement. No known injury. No nausea, vomiting, dysuria, urgency, frequency. Did present to the hospital with a low-grade fever of 99.1. CBC and CMP unremarkable. UA with leukesterase, white blood cells, 1+ bacteria. Urine culture is pending. She was given Rocephin. CT of the abdomen pelvis notes history of cholecystectomy, right ovarian cyst, previous abdominal surgeries. She is feeling well this morning and has tolerated p.o. intake. Does still have some mild CVA tenderness. Will discharge home with naproxen and Omnicef. She understands we will call her in a few days if antibiotics need to be changed. Return to the ER precautions given. She is stable for dischargehome. This note was generated with [employer] voice recognition software and may contain repair clerk errors. DISPOSITION, EDUCATION AND MEDICATION RECONCILIATION Medications reconciled. See after visit summary for patient education on discharged patients. Associated attestation - Josiah Pride MD - 03/26/2023 12:15 PM CDT Lis Phelan was seen and examined independent of advanced practice provider. Agree with history,physical, assessment, and plan of care. Patient presented with right-sided flank pain with right CVA tenderness. She denies other issues or complaints. Her temperature was mildly elevated with UA concerning for possible infective process. CT was unrevealing. She was placed in the CDU for pain control and response to treatment. She improved today after IV Rocephin given comfortable going home withpain control. Likely combination of pyelonephritis and musculoskeletal pain. Will discharge with antibiotics follow- up with PCP warning signs return discussed PE: Vitals: 03/26/23 1135 BP: 119/77 Pulse: 93 Resp: 20 Temp: 98.2 ??F (36.8 ??C) SpO2: 96% Alert in NAD Heart: RRR Lungs: CTA B/L Ext: MAEW, No peripheral edema Abd: minimal right sided flank tenderess, no RLQ tendernss. Josiah Pride MD documented in this encounter Discharge Instructions * Discharge Instructions* Ann-Marie Curry PA-C - 03/26/2023 11:17 AM CDT You were seen and evaluated in the Emergency Room by a Physician. You spent the remainder of your stay in the Clinical Decision Unit observed by a Nurse Practitionerand Physician Wire Technician. Your workup including lab work and imaging concerning for kidney infection Take antibiotics as prescribed Take Naproxen as needed. You can also use Tylenol at home We will call you if we need to change your antibiotics Emergent reasons to return to the ED- If you have pain that is new, severe, prolonged, or if pain causes concern, call 911 immediately. You are being discharged to home. Continue any previously prescribed home medications. Follow up with your Primary Care Physician (PCP) as discussed. Call your PCP for any non urgent concerns. * Attachments The following attachments cannot be sent through Care Everywhere. * Pyelonephritis (Lithuanian) documented in this encounter Medications at Time of Discharge Medication Sig Dispensed Refills Start Date End Date Nexplanon 68 mg Implant Inject 68 mg by subcutaneous injection one time only. 01/14/2023 fluticasone propionate (FLONASE) 50 mcg/spray [place], Suspension nasal inhalerIndications:Ac nikkie intractable headache, unspecified headache type Administer 2 Sprays in each nostril daily. 16 Gram 09/16/2022 cholecalciferol, vitamin D3, 1,000 unit Take by mouth. cetirizine (ZyrTEC) 10 mg tablet Take 10 mg by mouth daily. cefdinir (OMNICEF) 300 mg capsule Take 1 Capsule (300 mg) by mouth every 12 hours for 7 days. 14 Capsule 03/26/2023 04/02/2023 naproxen (NAPROSYN) 500 mg tablet Take 1 Tablet (500 mg) by mouth 2 times daily as needed for mild or moderate pain. 20 Tablet 03/26/2023 01/04/2024 tirzepatide (Mounjaro) 7.5 mg/0.5 mL Pen InjectorIndications:T ype 2 diabetes mellitus without complication, without long-term current use of insulin Inject 0.5 mL (7.5 mg) by subcutaneous injection every 7 days. 6 mL 02/02/2023 05/06/2023 escitalopram oxalate (LEXAPRO) 10 mg tablet Take 1 Tablet (10 mg) by mouth daily. 90 Tablet 01/15/2023 05/07/2023 lisinopriL (PRINIVIL) 10 mg tablet Take 1 Tablet (10 mg) by mouth daily. 90 Tablet 01/15/2023 07/28/2023 metFORMIN (GLUCOPHAGE) 500 mg tabletIndications:Typ e 2 diabetes mellitus without complication, without long-term current use of insulin Take 1 Tablet (500 mg) by mouth 2 times daily with meals. 180 Tablet 01/15/2023 12/15/2023 rosuvastatin (CRESTOR) 40 mg tablet Take 1 Tablet (40 mg) by mouth daily at bedtime. 90 Tablet 01/15/2023 12/15/2023 buPROPion HCL (WELLBUTRIN SR) 150 mg Sustained Release 12 hour tablet Take 1 Tablet (150 mg) by mouth 2 times daily. 180 Tablet 10/07/2022 07/02/2023 pantoprazole (PROTONIX) 40 mg Tablet, Delayed Release (E.C.) Take 1 Tablet (40 mg) by mouth daily. 90 Tablet 4 10/23/2021 05/07/2023 albuterol sulfate 90 mcg/Actuation inhalerIndications:Mi ld intermittent asthma without complication Take 1-2 Puffs by inhalation every 4 hours as needed for Shortness of Breath or Wheezing. 6.7 Gram 6 04/16/2021 03/07/2024 documented as of this encounter ED Notes * Nuha Abraham RN - 03/26/2023 11:42 AM CDT PIV removed, pressure and dressing applied. VS updated. Discharge paperwork discussed. All questions and concerns addressed. Patient ambulatory at discharge without difficulty. * Nuha Abraham RN - 03/26/2023 10:09 AM CDT Patient up to the restroom at this time. * Nuha Abraham RN - 03/26/2023 9:40 AM CDT Meal tray ordered by patient at this time. * Claudia Lorenz RN - 03/26/2023 12:36 AM CDT This RN assumed care of pt; upon arrival to unit, pt placed on monitors and vital signs update; pt settled in to bed and reported pain 3/10 when I'm not moving and 5/10 when I move around ; RN oriented pt to unit and updated on plan of care; lights dimmed for pt comfort; pt resting in bed showing no outward signs of distress at this time. * Luz Michael RN - 03/25/2023 11:29 PM CDT Pt c/o increased pain Patient/family has been informed about benefits and any potential clinically significant side effects or other concerns regarding the administration of the drug they have just been given. * Debbi Tucker RN - 03/25/2023 11:04 PM CDT Pt to CT at this time * Luz Michael RN - 03/25/2023 9:47 PM CDT Chief Complaint Patient presents with Back Pain Pt arrives to ED for back pain since last night. Pain located in the middle of her back. Pt reportspain when she pushes on her right flank. +nausea. Pt taking tylenol and ibuprofen without relief. Denies injury, urinary symptoms, fever/chills, or vomiting. Pt reports significant history of abdominal surgeries and complications. Pt c/o R flank pain that radiates across back. * Demario Koo, DO - 03/25/2023 6:10 PM CDT HISTORY OF PRESENT ILLNESS Lis Phelan, a 38 y.o. female presents to the ED with a Chief Complaint of Back Pain Subjective Documented Triage Chief Complaint: Back Pain 9:20 PM: Lis Phelan is a 38 y.o. female with a history of HLD, DM, GERD, HTN, HOLLINS, and asthma who presents to the Emergency Department with complaints of back pain that began last night. The patient states they have lower right sided back pain. The patient reports pain upon palpation of their flank. The patient states they have nausea and took Tylenol and Ibuprofen without relief. The patient states the pain feels deeper than the muscle around the kidney region. The patient reports having a kidney stone. The patient denies injury, urinary symptoms, fever, chills, falls, and vomiting. Physician(s): Elma Magaña MD History provided by: The patient Arrived by: Private vehicle Arrived from: Home REVIEW OF SYSTEMS Review of Systems Constitutional: Negative for chills and fever. HENT: Negative for congestion, ear pain, hearing loss, nosebleeds, sore throat and tinnitus. Eyes: Negative for photophobia, pain and visual disturbance. Respiratory: Negative for cough, chest tightness, shortness of breath and wheezing. Cardiovascular: Negative for chest pain, palpitations and leg swelling. Gastrointestinal: Positive for nausea. Negative for abdominal pain, blood in stool, diarrhea and vomiting. Genitourinary: Positive for flank pain. Negative for decreased urine volume, difficulty urinating, dysuria and hematuria. Renal calculus Musculoskeletal: Positive for back pain. Negative for arthralgias, gait problem and myalgias. Skin: Negative for rash and wound. Neurological: Negative for dizziness, seizures, syncope, facial asymmetry, weakness and headaches. Psychiatric/Behavioral: Negative for agitation, behavioral problems, confusion, self-injury, sleep disturbance and suicidal ideas. All other systems reviewed and are negative. PAST MEDICAL HISTORY REVIEWED MEDICAL: Patient has a past medical history of Arthritis, Asthma, Biliary dyskinesia, Change in bowel habit,Depression, Diabetes mellitus, Difficult intravenous access, Eosinophilic esophagitis, Eosinophilicesophagitis, GERD (gastroesophageal reflux disease), Headache, History of shingles, HTN (hypertension), benign (12/29/2020), and Hyperlipidemia. She has no past medical history of Dyspnea, Dyspnea on exertion, History of complications due to general anesthesia, Latex sensitivity, or Obstructive sleep apnea. SURGICAL: Patient has a past surgical history that includes gastroschisis closure (); surgical other (04/2004); pr esophagogastroduodenoscopy transoral diagnostic (N/A, 05/17/2019); pr cholecystectomy (N/A, 11/03/2019); rhinoplasty (Bilateral, 12/20/2020); turbinate resection (Right, 12/20/2020); carpal tunnel release (Right, 06/11/2021); hand surgery (Right); pr esophagogastroduodenoscopy transoral diagnostic (N/A, 02/10/2022); and pr colonoscopy flx dx w/collj spec when pfrmd (N/A, 02/10/2022). FAMILY: Patient's family history includes Diabetes in her paternal grandmother; High Cholesterol in her mother; Hypertension in her mother; Kidney Disease in her paternal grandfather; Lung Cancer in her father; No Known Problems in her daughter and son; Stroke in her father; Unknown in her brother, maternal grandfather, and maternal grandmother. SOCIAL: reports that she quit smoking about 7 years ago. Her smoking use included cigarettes. She has a 10.00 pack-year smoking history. She has never used smokeless tobacco. She reports being sexually active and has had partner(s) who are female. She reports using the following method of control/protection: Pill. She reports that she does not drink alcohol and does not use drugs. No history on file. Social History Other Topics Concern Other Children in Home Not Asked Attends School (Grade in Comment) Not Asked Pets in Home Not Asked Firearms in Home Not Asked Seat Belt/Child Restraint Not Asked Foster Child Not Asked Second Hand Smoke Exposure Not Asked Lives with Biologic Parent Not Asked Wears Bike Helmet Not Asked Multiple Not Asked ALLERGIES Tramadol, Varenicline, Metronidazole, and Meperidine HOME MEDICATIONS Patient's Home Medications Current Home Medications ALBUTEROL SULFATE 90 MCG/ACTUATION INHALER ALPRAZOLAM (XANAX) 0.25 MG TABLET BUPROPION HCL (WELLBUTRIN SR) 150 MG SUSTAINED RELEASE 12 HOUR TABLET CETIRIZINE (ZYRTEC) 10 MG TABLET CHOLECALCIFEROL, VITAMIN D3, 1,000 UNIT ESCITALOPRAM OXALATE (LEXAPRO) 10 MG TABLET FENOFIBRATE (LOFIBRA) 160 MG TABLET FLUTICASONE PROPIONATE (FLONASE) 50 MCG/SPRAY SPRAY, SUSPENSION NASAL INHALER LISINOPRIL (PRINIVIL) 10 MG TABLET METFORMIN (GLUCOPHAGE) 500 MG TABLET NEXPLANON 68 MG IMPLANT PANTOPRAZOLE (PROTONIX) 40 MG TABLET, DELAYED RELEASE (E.C.) ROSUVASTATIN (CRESTOR) 40 MG TABLET TIRZEPATIDE (MOUNJARO) 7.5 MG/0.5 ML PEN INJECTOR Medications Modified during this Encounter No medications on file Medications Discontinued during this Encounter No medications on file Objective PHYSICAL EXAM INITIAL VS BP: (!) 158/98 (03/25/231815), Heart Rate: 92 bpm (03/25/231815), Resp: 18 (03/25/231815), Pulse: 92 (03/25/231815), Temp: 99.1 ??F (37.3 ??C) (03/25/231815), Temp src: Oral (03/25/231815), SpO2: 100 % (03/25/231815), Height: 5' 5 (165.1 cm) (03/25/231815), Weight: 104.3 kg (230 lb) (03/25/231815), BMI (Calculated): (!) 38.27 (03/25/231815) No LMP recorded. (Menstrual status: Continuous Control). Physical Exam Vitals and nursing note reviewed. Constitutional: General: She is not in acute distress. Appearance: She is not diaphoretic. HENT: Head: Normocephalic and atraumatic. Nose: Nose normal. Eyes: General: Right eye: No discharge. Left eye: No discharge. Conjunctiva/sclera: Conjunctivae normal. Pupils: Pupils are equal, round, and reactive to light. Neck: Thyroid: No thyromegaly. Vascular: No JVD. Cardiovascular: Rate and Rhythm: Normal rate and regular rhythm. Heart sounds: Normal heart sounds. No murmur heard. No friction rub. No gallop. Pulmonary: Breath sounds: Normal breath sounds. No stridor. No wheezing or rales. Abdominal: General: Bowel sounds are normal. There is no distension. Palpations: Abdomen is soft. Tenderness: There is no abdominal tenderness. There is right CVA tenderness. There is no rebound. Musculoskeletal: General: No tenderness. Normal range of motion. Cervical back: Normal range of motion and neck supple. Skin: General: Skin is warm and dry. Coloration: Skin is not pale. Findings: No erythema or rash. Comments: No rash Neurological: Mental Status: She is alert and oriented to person, place, and time. Cranial Nerves: No cranial nerve deficit. Coordination: Coordination normal. Psychiatric: Judgment: Judgment normal. DIAGNOSTICS LAB: URINALYSIS WITH REFLEX MICROSCOPIC - Abnormal Result Value COLOR UA Yellow CLARITY UA Slightly Cloudy (*) SPECIFIC GRAVITY UA 1.028 PH UA 6.0 LEUKOCYTE ESTERASE UA 1+ (*) NITRITE UA Negative PROTEIN UA 2+ (*) GLUCOSE UA Negative KETONES UA Negative UROBILINOGEN UA 4.0 (*) BILIRUBIN UA Negative BLOOD UA Negative WBC UA 3-5 (*) RBC UA 0-2 BACTERIA UA 1+ (*) EPITHELIAL CELLS, URINE 0-5 CALCIUM OXALATE, URINE Present (*) HCG QUALITATIVE, URINE - Abnormal HCG QUAL URINE Negative COLOR UA Yellow CLARITY UA Slightly Cloudy (*) COMPREHENSIVE METABOLIC PANEL - Normal SODIUM 138 POTASSIUM 4.0 CHLORIDE 102 CO2 23 CALCIUM 9.7 BUN 10 CREATININE 0.73 GLUCOSE 98 TOTAL PROTEIN 7.9 ALBUMIN 4.7 BILIRUBIN TOTAL 0.3 ALKALINE PHOSPHATASE 81 AST 30 ALT 33 GFR >60 ANION GAP 13 LIPASE - Normal LIPASE 23 URINE CULTURE CBC WITH DIFFERENTIAL WBC 9.3 RBC 4.31 HEMOGLOBIN 13.3 HEMATOCRIT 40.0 MCV 92.8 MCH 30.9 MCHC 33.3 RDW 13.4 RDW-STDEV 45.8 PLATELETS 342 MPV 9.5 NEUTROPHILS 54 LYMPHOCYTES 33 MONOCYTES 7 EOSINOPHILS 6 BASOPHILS 1 IMMATURE GRANULOCYTES 0 NEUTROPHIL ABSOLUTE 4.98 LYMPHOCYTE ABSOLUTE 3.03 MONOCYTE ABSOLUTE 0.68 EOSINOPHIL ABSOLUTE 0.53 BASOPHILS ABSOLUTE 0.05 IMMATURE GRANULOCYTES ABSOLUTE 0.02 RADIOLOGY: CT ABDOMEN PELVIS WO CONTRAST Radiologist Impression IMPRESSION: 1. No acute traumatic findings. 2. Incidental findings as above. The examination was performed with the adjustment of mA according to the patient size and/or the use of Iterative Reconstruction Technique. DICTATION LOCATION: Location 4 EKG: PROCEDURES Procedures MEDICAL DECISION MAKING AND PLAN OF CARE --On initial evaluation, saw and examined the patient. Discussed plan for fluids, labs, and imaging. Patient understands and agrees with the plan. 11:57 PM: D/W Letty CDU KILN STACKER, who will oversee patient care. ED provider and ED nurse verbally discussed patient plan of care at this time. Medical Decision Making 38 years old lady with a history of diabetes comes in secondary to right flank pain. Pain is worse when she moves but it feels deep. Denies any back injury denies any falls. Patient urine appears to be infected on exam she does have right-sided CVA tenderness. Patient was started on IV antibiotics and pain medication will admit for close observation and treatment of UTI pyelonephritis. If the patient improved we will discharge home with pain medication and antibiotics. Amount and/or Complexity of Data Reviewed External Data Reviewed: notes. Details: Nursing Labs: ordered. Decision-making details documented in ED Course. Radiology: ordered and independent interpretation performed. Decision-making details documented in ED Course. Risk Prescription drug management. MDM Consults: other Medications Administered During the ED Stay from 03/25/2023 1810 to 03/26/2023 0012 Date/Time Order Dose Route Action 03/25/2023 2158 CDT sodium chloride 0.9% bolus solution 1,000 mL 1,000 mL IV New Bag 03/25/2023 215 CDT ondansetron (ZOFRAN) 4 mg/2 mL injection 4 mg 4 mg IV Given 03/25/2023 215 CDT morphine 4 mg/mL injection 4 mg 4 mg IV Given 03/25/2023 2322 CDT cefTRIAXone (ROCEPHIN) 1,000 mg in dextrose (iso-osmotic) 50 mL IVPB 1,000 mg IV New Bag 03/25/2023 2330 CDT morphine 4 mg/mL injection 4 mg 4 mg IV Given . New Prescriptions for this Encounter LAST VS BP: (!) 158/98 (03/25/231815), Heart Rate: 92 bpm (03/25/231815), Resp: 18 (03/25/231815), Pulse: 92 (03/25/231815), Temp: 99.1 ??F (37.3 ??C) (03/25/231815), Temp src: Oral (03/25/231815), SpO2: 100 % (03/25/231815) CLINICAL IMPRESSION Final diagnoses: [R10.9] Right flank pain (Primary) [N12] Pyelonephritis [E11.9] Type 2 diabetes mellitus without complication, without long-term current use of insulin [I10] HTN (hypertension), benign DISPOSITION, EDUCATION AND MEDICATION RECONCILIATION Medications reconciled. See after visit summary for patient education on discharged patients. ED Disposition ED Disposition ED CDU Condition Stable User Demario Koo DO Date/Time ThuMar 25, 2023 11:59 PM Comment -- ATTESTATION STATEMENTS This note has been prepared by Davie Soto acting as a scribe for Dr. Ezequiel Koo on 03/25/2023 at 12:00 AM. The scribe's documentation has been prepared under my direction and personally reviewed by me, Demario Koo DO, in its entirety on 03/26/23 at 12:12 AM. I confirm that the note above accurately reflects all work, treatment, procedures, and medical decision making performed by me. Diagnoses Diagnosis Comment Added By Time Added Right flank pain [R10.9] Demario Koo DO 03/26/2023 12:00 AM Pyelonephritis [N12] Demario Koo DO 03/26/2023 12:00 AM Type 2 diabetes mellitus without complication, without long-term current use of insulin [E11.9] Demario Koo DO 03/26/2023 12:00 AM HTN (hypertension), benign [I10] Demario Koo DO 03/26/2023 12:00 AM * Nuha Abraham RN - 03/25/2023 6:10 PM CDT Patient/family has been informed about benefits and any potential clinically significant side effects or other concerns regarding the administration of the drug they have just been given. Meal tray delivered. documented in this encounter Miscellaneous Notes * CDU Provider Note - Letty Delacruz NP - 03/26/2023 12:34 AM CDT HISTORY OF PRESENT ILLNESS iLs Phelan is a 38 y.o. female with past medical history of eosinophilic esophagitis, GERD, asthma, hyperlipidemia, headaches who presented to the ED with a chief complaint of back pain. Pain started yesterday. Described as sharp. Wraps around to her side. Coughing or passing gas makes the painworse. Attempted resting, heating pad, Tylenol, ibuprofen at home which took the edge off , however did not fully make the pain go away. Some right CVA tenderness. No known injury. Denies constipation, nausea, vomiting, diarrhea, dysuria, urgency, frequency, fevers. Has been tolerating p.o. without issue. Low-grade fever in the ED of 99.1. Other vital signs stable. UA with 1+ leuk esterase, 2+ protein, 4+ urobilinogen, 3-5 white cells, and 1+ bacteria. Urine culture in process. CBC without acute abnormalities. CMP without significant acute abnormalities. Lipase within defined limits at 23. CT of theabdomen and pelvis without contrast noted history of cholecystectomy with prominence of the biliarytree likely secondary to reservoir effect. Nonobstructing right nephrolithiasis. Ovarian cyst on the right. Nondilated loops of bowel. Normal caliber abdominal aorta. No pathologic lymph nodes. No pneumoperitoneum or substantial free fluid or identifiable organized fluid collection. Scarring of theanterior abdominal wall from prior surgical incision. Normal saline and Rocephin given in the ED. Transferred to Clinical Decision Unit with urinary tract infection, concern for pyelonephritis clinically on 03/25/2023. REVIEW OF SYSTEMS GENERAL: No fever, no significant weight changes CARDIAC: No chest pain, no palpitations, no edema. PULMONARY: No cough, no dyspnea GI: No abdominal pain, no nausea or vomiting, no diarrhea, no rectal bleeding, no melena : No dysuria, no frequency, no hematuria NEUROLOGIC: No vision changes, no motor weakness, no sensory loss, no dizziness, no headaches SKIN: No rashes HEME: No bruising MUSCULOSKELETAL: No joint or muscle pain or swelling PSYCHIATRIC: No depression, no anxiety,no hallucinations, no delusions PAST MEDICAL HISTORY REVIEWED MEDICAL: Patient has a past medical history of Arthritis, Asthma, Biliary dyskinesia, Change in bowel habit,Depression, Diabetes mellitus, Difficult intravenous access, Eosinophilic esophagitis, Eosinophilicesophagitis, GERD (gastroesophageal reflux disease), Headache, History of shingles, HTN (hypertension), benign (12/29/2020), and Hyperlipidemia. She has no past medical history of Dyspnea, Dyspnea on exertion, History of complications due to general anesthesia, Latex sensitivity, or Obstructive sleep apnea. SURGICAL: Patient has a past surgical history that includes gastroschisis closure (); surgical other (04/2004); pr esophagogastroduodenoscopy transoral diagnostic (N/A, 05/17/2019); pr cholecystectomy (N/A, 11/03/2019); rhinoplasty (Bilateral, 12/20/2020); turbinate resection (Right, 12/20/2020); carpal tunnel release (Right, 06/11/2021); hand surgery (Right); pr esophagogastroduodenoscopy transoral diagnostic (N/A, 02/10/2022); and pr colonoscopy flx dx w/collj spec when pfrmd (N/A, 02/10/2022). FAMILY: Patient's family history includes Diabetes in her paternal grandmother; High Cholesterol in her mother; Hypertension in her mother; Kidney Disease in her paternal grandfather; Lung Cancer in her father; No Known Problems in her daughter and son; Stroke in her father; Unknown in her brother, maternal grandfather, and maternal grandmother. SOCIAL: reports that she quit smoking about 7 years ago. Her smoking use included cigarettes. She has a 10.00 pack-year smoking history. She has never used smokeless tobacco. She reports being sexually active and has had partner(s) who are female. She reports using the following method of control/protection: Pill. She reports that she does not drink alcohol and does not use drugs. No history on file. Social History Other Topics Concern Other Children in Home Not Asked Attends School (Grade in Comment) Not Asked Pets in Home Not Asked Firearms in Home Not Asked Seat Belt/Child Restraint Not Asked Foster Child Not Asked Second Hand Smoke Exposure Not Asked Lives with Biologic Parent Not Asked Wears Bike Helmet Not Asked Multiple Not Asked PROBLEM LIST: Patient has Mild intermittent asthma without complication; Type 2 diabetes mellitus without complication, without long-term current use of insulin; Hyperlipidemia; Morbid obesity with body mass indexof 40.0-49.9; Microalbuminuria; History of gastroschisis; Herpes simplex type 2 infection; Irregular periods; HTN (hypertension), benign; GERD (gastroesophageal reflux disease); Major depression; andVitamin D insufficiency on their problem list. Objective PHYSICAL EXAM Last Vitals: BP (!) 158/98 (BP Location: Right arm, Patient Position (BP): Sitting) Pulse 92 Temp 99.1 ??F (37.3 ??C) (Oral) Resp 18 Ht 5' 5 (1.651 m) Wt 104.3 kg (230 lb) SpO2 100% BMI 38.27 kg/m?? Physical Exam General- Alert. In no distress Neurologic- Oriented. Follows commands. No hemiparesis or facial asymmetry. Cardiac- S1S2 RRR Pulmonary- CTAB Abdomen- Round, soft, non-tender. Bowel sounds present. Extremities- Pulses present. No edema. Skin- warm, dry, pink. Oral Mucosa- pink, moist. URINALYSIS WITH REFLEX MICROSCOPIC - Abnormal Result Value COLOR UA Yellow CLARITY UA Slightly Cloudy (*) SPECIFIC GRAVITY UA 1.028 PH UA 6.0 LEUKOCYTE ESTERASE UA 1+ (*) NITRITE UA Negative PROTEIN UA 2+ (*) GLUCOSE UA Negative KETONES UA Negative UROBILINOGEN UA 4.0 (*) BILIRUBIN UA Negative BLOOD UA Negative WBC UA 3-5 (*) RBC UA 0-2 BACTERIA UA 1+ (*) EPITHELIAL CELLS, URINE 0-5 CALCIUM OXALATE, URINE Present (*) HCG QUALITATIVE, URINE - Abnormal HCG QUAL URINE Negative COLOR UA Yellow CLARITY UA Slightly Cloudy (*) COMPREHENSIVE METABOLIC PANEL - Normal SODIUM 138 POTASSIUM 4.0 CHLORIDE 102 CO2 23 CALCIUM 9.7 BUN 10 CREATININE 0.73 GLUCOSE 98 TOTAL PROTEIN 7.9 ALBUMIN 4.7 BILIRUBIN TOTAL 0.3 ALKALINE PHOSPHATASE 81 AST 30 ALT 33 GFR >60 ANION GAP 13 LIPASE - Normal LIPASE 23 URINE CULTURE CBC WITH DIFFERENTIAL WBC 9.3 RBC 4.31 HEMOGLOBIN 13.3 HEMATOCRIT 40.0 MCV 92.8 MCH 30.9 MCHC 33.3 RDW 13.4 RDW-STDEV 45.8 PLATELETS 342 MPV 9.5 NEUTROPHILS 54 LYMPHOCYTES 33 MONOCYTES 7 EOSINOPHILS 6 BASOPHILS 1 IMMATURE GRANULOCYTES 0 NEUTROPHIL ABSOLUTE 4.98 LYMPHOCYTE ABSOLUTE 3.03 MONOCYTE ABSOLUTE 0.68 EOSINOPHIL ABSOLUTE 0.53 BASOPHILS ABSOLUTE 0.05 IMMATURE GRANULOCYTES ABSOLUTE 0.02 CT ABDOMEN PELVIS WO CONTRAST Radiologist Impression IMPRESSION: 1. No acute traumatic findings. 2. Incidental findings as above. The examination was performed with the adjustment of mA according to the patient size and/or the use of Iterative Reconstruction Technique. DICTATION LOCATION: Location 4 ASSESSMENT AND PLAN R sided back pain/CVA tenderness -UTI -Rocephin -Treat for pyelo given CVA tenderness. -IVF -General diet -monitor temps, HR for signs sepsis. 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 Office Visit [facility] Orthopedic Surgery at the [facility] Medicine [address] [facility] [facility] [place] [address] [place] [address] [place] [address] 10/27/2024 2:45 PM CDT Office Visit [facility] Gastroenterology [facility] [address] [place] [address] Bebo Benites MD [address] [place] [address] documented as of this encounter Procedures Procedure Name Priority Date/Time Associated Diagnosis Comments OXYGEN VIA DEVICE TO KEEP O2 SAT ABOVE Stat 03/26/2023 1:08 AM CDT PULSE OXIMETRY, CONTINUOUS Stat 03/26/2023 1:[address] ABDOMEN PELVIS WO CONTRAST Stat 03/25/2023 11:16 PM CDT CBC WITH DIFFERENTIAL Stat 03/25/2023 9:58 PM CDT LIPASE Stat 03/25/2023 9:58 PM CDT COMPREHENSIVE METABOLIC PANEL Stat 03/25/2023 9:58 PM CDT URINALYSIS W/REFLEX MICROSCOPIC Stat 03/25/2023 8:38 PM CDT URINE CULTURE Stat 03/25/2023 8:38 PM CDT HCG QUALITATIVE, URINE Stat 8:38 PM CDT documented in this encounter Results * CT ABDOMEN PELVIS WO CONTRAST (03/25/2023 11:16 PM CDT) Anatomical Region Laterality Modality Abdomen Computed Tomogra phy 03/25/2023 11:1 6 PM CDT Impressions 03/25/2023 11:36 PM CDT IMPRESSION: ?? 1. No acute traumatic findings. 2. Incidental findings as above. ?? The examination was performed with the adjustment of mA according to the patient size and/or the use of Iterative Reconstruction Technique. ?? DICTATION LOCATION: Location 4 Narrative 03/25/2023 11:[address] ABDOMEN AND PELVIS WITHOUT CONTRAST WITH RECONSTRUCTED IMAGES DATE: 03/25/2023 11:16 PM HISTORY: Flank pain, stone disease suspected. ? COMPARISON: 11/27/2021 ?? TECHNIQUE: Multislice helical imaging of the abdomen and pelvis without contrast. ??Orthogonal reconstructions were created. ?? FINDINGS: ?? LOWER CHEST: No acute consolidation in the visible lung bases. ?? LIVER: No contour deforming mass. ?? GALLBLADDER AND BILIARY: Cholecystectomy. Prominence of the biliary tree is likely due to reservoir effect. ?? PANCREAS: Unremarkable. ?? SPLEEN: Homogenous spleen without enlargement. ?? ADRENAL GLANDS: Symmetric adrenal glands. No discrete mass. ?? KIDNEYS/URETERS: Nonobstructing right nephrolithiasis. ?? URINARY BLADDER: Unremarkable for the degree of distention. ?? REPRODUCTIVE ORGANS: 4.8 cm cystic structure in the right adnexa, either an ovarian cyst or hydrosalpinx. ?? STOMACH AND BOWEL: Bowel loops are nondilated. Similar appearing clustered bowel loops in the right upper quadrant with anastomotic bowel suture. Congenital nonrotation of the bowel again noted. VESSELS: Normal caliber abdominal aorta. ?? LYMPH NODES: No pathologic lymph node enlargement. ?? PERITONEUM/RETROPERITONEUM: No pneumoperitoneum. No substantive free fluid or identifiable organized fluid collections. ABDOMINAL WALL: Scarring of the anterior abdominal wall from prior surgical incision. BONES: No acute fracture. ADDITIONAL: None. Procedure Note Alex Martinez III, MD - 03/25/2023 CT ABDOMEN AND PELVIS WITHOUT CONTRAST WITH [...] traumatic findings. 2. Incidental findings as above. The examination was performed with the adjustment of mA according to the patient size and/or the use of Iterative Reconstruction Technique. DICTATION LOCATION: Location [address] [facility] [address] ORDERABLES * LIPASE (03/25/2023 9:58 PM CDT) LIPASE 23 13 - 60 U/L 03/25/2023 10:33 PM CDT [facility] Blood Venipuncture / Unknown 03/25/2023 9:58 PM CDT 03/25/2023 10:04 PM CDT [facility] CHEMISTRY ORDERABLES [facility]# [id number] [address] [place] [address] * COMPREHENSIVE METABOLIC PANEL (03/25/2023 9:58 PM CDT) Pathologist [facility] SODIUM 138 136 - 145 mmol/L 03/25/2023 10:38 PM CDT [facility] POTASSIUM 4.0 3.5 - 5.0 mmol/L 03/25/2023 10:38 PM CDT [facility] - [facility] Comment:Slightly hemolyzed. Result may be falsely elevated. CHLORIDE 102 98 - 107 mmol/L 03/25/2023 10:38 PM CDT [facility] CO2 23 22 - 29 mmol/L 03/25/2023 10:38 PM CDT [facility] - [facility] CALCIUM 9.7 8.6 - 10.2 mg/dL 03/25/2023 10:38 PM CDT [facility] - [facility] BUN 10 6 - 20 mg/dL 03/25/2023 10:38 PM CDT [facility] - [facility] CREATININE 0.73 0.51 - 0.95 mg/dL 03/25/2023 10:38 PM CDT [facility] - [facility] GLUCOSE 98 74 - 99 mg/dL 03/25/2023 10:38 PM T [facility] - . [facility] TOTAL PROTEIN 7.9 6.7 - 8.6 g/dL 03/25/2023 10:38 PM T [facility] - . [facility] ALBUMIN 4.7 3.5 - 5.2 g/dL 03/25/2023 10:38 PM T [facility] - [facility] BILIRUBIN TOTAL 0.3 0.3 - 1.2 mg/dL 03/25/2023 10:38 PM T [facility] - . [facility] ALKALINE PHOSPHATASE 81 35 - 104 U/L 03/25/2023 10:38 PM T [facility] - [facility] AST 30 <33 U/L 03/25/2023 10:38 PM [facility] LABORATORY SERVICES - [facility] Comment:Hemolysis present. R esult may be falsely elevated. ALT 33 <34 U/L 03/25/2023 10:38 PM [facility] LABORATORY [facility] GFR >60 >=60 mL/min/1.7 3 sq meter 03/25/2023 10:38 PM T [facility] - [facility] Comment:eGFR calculated with 2020 CKD-EPI equation. Vegetarian diet, extremely high or low muscle mass, and may affect results. Cystatin C with Glomerular Filtration Rate is a suitable alternative for these patients. ANION GAP 13 8 - 16 mmol/L 03/25/2023 10:38 PM T [facility] Blood Venipuncture / Unknown 03/25/2023 9:58 PM CDT 03/25/2023 10:05 PM CDT [facility] LABORATORY SERVICES - [facility] - 03/25/2023 10:38 PM CDT Samples containing indocyanine green cause interferences on Total and/or Direct Bilirubin and must not be measured. Demario Koo DO CHEMISTRY ORDERABLES [facility] CLIA# [id number] [address] [facility] [place] [place] [address] * CBC WITH DIFFERENTIAL (03/25/2023 9:58 PM CDT) [facility] WBC 9.3 4.0 - 9.8 K/uL 03/25/2023 10:15 PM CDT [facility]ORATORY SERVICES - [facility] RBC 4.31 3.90 - 4.90 M/uL 03/25/2023 10:15 PM CDT [facility] - [facility] HEMOGLOBIN 13.3 11.8 - 14.8 g/dL 03/25/2023 10:15 PM CDT [facility] HEMATOCRIT 40.0 35.5 - 44.0 % 03/25/2023 10:15 PM CDT [facility] - [facility] MCV 92.8 82.0 - 99.0 fL 03/25/2023 10:15 PM CDT [facility] - . [facility] MCH 30.9 27.2 - 32.6 pg 03/25/2023 10:15 PM CDT [facility] - . [facility] MCHC 33.3 31.5 - 35.5 g/dL 03/25/2023 10:15 PM CDT [facility] - . [facility] RDW 13.4 11.5 - 14.5 % 03/25/2023 10:15 PM CDT [facility] - . [facility] RDW-STDEV 45.8 37.1 - 48.7 fL 03/25/2023 10:15 PM CDT [facility] - [facility] PLATELETS 342 140 - 350 K/uL 03/25/2023 10:15 PM CDT [facility] - . [place] MPV 9.5 9.3 - 12.4 fL 03/25/2023 10:15 PM CDT [facility] - [facility] NEUTROPHILS 54 % 03/25/2023 10:15 PM CDT [facility] LYMPHOCYTES 33 % 03/25/2023 10:15 PM CDT [facility] MONOCYTES 7 % 03/25/2023 10:15 PM CDT [facility] EOSINOPHILS 6 % 03/25/2023 10:15 PM CDT [facility] BASOPHILS 1 % 03/25/2023 10:15 PM CDT [facility] - . [facility] IMMATURE GRANULOCYTES 0 % 03/25/2023 10:15 PM CDT [facility] - [facility] NEUTROPHIL ABSOLUTE 4.98 1.90 - 7.00 K/uL 03/25/2023 10:15 PM CDT [facility] - [facility] LYMPHOCYTE ABSOLUTE 3.03 0.70 - 4.50 K/uL 03/25/2023 10:15 PM CDT [facility] MONOCYTE ABSOLUTE 0.68 0.10 - 1.30 K/uL 03/25/2023 10:15 PM CDT [facility] - [facility] EOSINOPHIL ABSOLUTE 0.53 0.00 - 0.70 K/uL 03/25/2023 10:15 PM CDT [facility] - [facility] BASOPHILS ABSOLUTE 0.05 0.00 - 0.20 K/uL 03/25/2023 10:15 PM CDT [facility] - [facility] IMMATURE GRANULOCYTES ABSOLUTE 0.02 0.00 - 0.03 K/uL 03/25/2023 10:15 PM CDT [facility] - [facility] Blood Venipuncture / Unknown 03/25/2023 9:58 PM CDT 03/25/2023 10:04 PM CDT Demario Koo DO HEMATOLOGY ORDERABLE [facility]# [id number] [address] [place] [address] * URINE CULTURE (03/25/2023 8:38 PM CDT) CULTURE Polymicrobial growth consistent with normal urethral len and/or colonizing bacteria 03/27/2023 7:35 AM CDT [facility] Urine URINE SPECIMEN OBTAINED BY CLEAN CATCH PROCEDURE / Unknown Collection / Unknown 03/25/2023 8:38 PM CDT 03/25/2023 8:42 PM CDT Demario Koo DO MICROBIOLOGY - GENER AL ORDERABLES [facility] CLIA# [id number] [address] [place] [address] * (ABNORMAL) HCG QUALITATIVE, URINE (03/25/2023 8:38 PM CDT) HCG QUAL URINE Negative Negative 03/25/2023 9:07 PM CDT [facility] - . [facility] COLOR UA Yellow Pale to Dark Yellow 03/25/2023 9:07 PM CDT [facility] - [facility] CLARITY UA Slightly Cloudy(A) Clear 03/25/2023 9:07 PM CDT [facility] - [facility] Urine URINE SPECIMEN OBTAINED BY CLEAN CATCH PROCEDURE / Unknown Collection / Unknown 03/25/2023 8:38 PM CDT 03/25/2023 8:42 PM CDT Demario Remye DO URINE ORDERABLES Performing Organization Address [facility]/ZIP Co de Phone Number [facility] CLIA# [id number] [address] [place] [address] * (ABNORMAL) URINALYSIS WITH REFLEX MICROSCOPIC (03/25/2023 8:38 PM CDT) COLOR UA Yellow Pale to Dark Yellow 03/25/2023 9:04 PM CDT [facility] - [facility] CLARITY UA Slightly Cloudy(A) Clear 03/25/2023 9:04 PM CDT [facility] - . [facility] SPECIFIC GRAVITY UA 1.028 1.003 - 1.035 03/25/2023 9:04 PM CDT [facility] - . [facility] PH UA 6.0 5.0 - 8.0 03/25/2023 9:04 PM CDT [facility] - . [facility] LEUKOCYTE ESTERASE UA 1+(A) Negative 03/25/2023 9:04 PM CDT [facility] - . [facility] NITRITE UA Negative Negative 03/25/2023 9:04 PM CDT [facility] - . [facility] PROTEIN UA 2+(A) Negative 03/25/2023 9:04 PM CDT [facility] - [facility] GLUCOSE UA Negative Negative 03/25/2023 9:04 PM CDT [facility] - [facility] KETONES UA Negative Negative 03/25/2023 9:04 PM CDT [facility] - [facility] UROBILINOGEN UA 4.0(A) <2.0 mg/dL 9:04 PM CDT [facility] BILIRUBIN UA Negative Negative 03/25/2023 9:04 PM CDT [facility] - [facility] BLOOD UA Negative Negative 03/25/2023 9:04 PM CDT [facility] WBC UA 3-5(A) 0 - 2 /hpf 03/25/2023 9:04 PM CDT [facility] RBC UA 0-2 0 - 2 /hpf 03/25/2023 9:04 PM CDT [facility] BACTERIA UA 1+(A) Negative /hpf 03/25/2023 9:04 PM CDT [facility] EPITHELIAL CELLS, URINE 0-5 0 - 5 /hpf 03/25/2023 9:04 PM CDT [facility] CALCIUM OXALATE, URINE Present(A) Absent 03/25/2023 9:04 PM CDT [facility] Urine URINE SPECIMEN OBTAINED BY CLEAN CATCH PROCEDURE / Unknown Collection / Unknown 03/25/2023 8:38 PM CDT 03/25/2023 8:42 PM CDT Demario Koo DO URINE ORDERABLES [id number] [address] [place] [place] [address] documented in this encounter Visit Diagnoses Diagnosis Right flank pain- Primary Abdominal pain, unspecified site Right flank pain Abdominal pain, unspecified site Pyelonephritis Pyelonephritis, unspecified Type 2 diabetes mellitus without complication, without long-term current use of insulin HTN (hypertension), benign Essential hypertension, benign Pyelonephritis Pyelonephritis, unspecified documented in this encounter Administered Medications Inactive Administered Medications - up to 3 most recent administrations Medication Order MAR Action Action Date Dose Rate Site cefTRIAXone (ROCEPHIN) 1,000 mg in dextrose (iso-osmotic) 50 mL IVPB 1,000 mg, IV, ONE TIME ONLY, 1 dose, On Thu03/25/23 at 2130, Routine, Antibiotic Indication: Urinary Tract Infection(UTI) / Infection New Bag 03/25/2023 11:22 PM CDT 1,000 mg 100 mL/hr cefTRIAXone (ROCEPHIN) 1,000 mg in dextrose (iso-osmotic) 50 mL IVPB 1,000 mg, IV, EVERY 24 HOURS (DAILY), First dose on Crystal 03/26/23 at 2100, Until Discontinued, Routine, Antibiotic Indication: Urinary Tract Infection(UTI) / Infection cyclobenzaprine (FLEXERIL) tablet 10 mg 10 mg, Oral, ONE TIME ONLY, 1 dose, On Thu03/26/23 at 0130, Routine Given 03/26/2023 2:07 AM CDT 10 mg ketorolac (TORADOL) injection 10 mg 10 mg, IV, EVERY 6 HOURS PRN, Starting on Thu03/26/23 at 0103, Until Crystal 03/26/23 at 1404, Pain, Routine Given 03/26/2023 10:20 AM CDT 10 mg Given 03/26/2023 1:29 AM CDT 10 mg Lidocaine 4 % topical patch 1 Patch 1 Patch, Topical, DAILY, 3 doses, First dose (after last modification) on Thu03/26/23 at 0200, Last dose on Thu03/27/23 at 0900, Routine Applied 03/26/2023 10:20 AM CDT 1 Patch Back, Right Applied 03/26/2023 2:07 AM CDT 1 Patch Ba ck, Left morphine 4 mg/mL injection 4 mg 4 mg, IV, ONE TIME ONLY, 1 dose, On Thu03/25/23 at 2130, Routine Given 03/25/2023 9:59 PM CDT 4 mg morphine 4 mg/mL injection 4 mg 4 mg, IV, ONE TIME ONLY, 1 dose, On Thu03/25/23 at 2330, Routine Given 03/25/2023 11:30 PM CDT 4 mg ondansetron (ZOFRAN) 4 mg/2 mL injection 4 mg 4 mg, IV, ONE TIME ONLY, 1 dose, On Thu03/25/23 at 2130, Routine Given 03/25/2023 9:59 PM CDT 4 mg sodium chloride 0.9% bolus solution 1,000 mL 1,000 mL, IV, ONE TIME ONLY, 1 dose, On Thu03/25/23 at 2130, at 2,000 mL/hr, Administer over 30 Minutes, Routine New Bag 03/25/2023 9:58 PM CDT 1,000 mL 2000 mL/hr sodium chloride 0.9% infusion IV, at 125 mL/hr, CONTINUOUS, Starting on Thu03/25/23 at 2130, Until Thu03/26/23 at 1404, Routine New Bag 03/26/2023 1:29 AM CDT 125 mL/hr documented in this encounter Active and Recently Administered Medications Times are shown in CDT. Scheduled Medication Order 03/24/2023 03/25/2023 03/26/2023 cefTRIAXone (ROCEPHIN) 1,000 mg in dextrose (iso-osmotic) 50 mL IVPB (COMPLETED) 1,000 mg, IV, ONE TIME ONLY, 1 dose, On Thu03/25/23 at 2130, Routine, Antibiotic Indication: Urinary Tract Infection(UTI) / Infection 2322 (New Bag - Provider: Luz Michael RN)2352 (Stopped - Provider: Claudia Lorenz RN) cefTRIAXone (ROCEPHIN) 1,000 mg in dextrose (iso-osmotic) 50 mL IVPB 1,000 mg, IV, EVERY 24 HOURS (DAILY), First dose on Thu03/26/23 at 2100, Until Discontinued, Routine, Antibiotic Indication: Urinary Tract Infection(UTI) / Infection cyclobenzaprine (FLEXERIL) tablet 10 mg (COMPLETED) 10 mg, Oral, ONE TIME ONLY, 1 dose, On Thu03/26/23 at 0130, Routine 0207 (Given - Provid er: Sly Lafleur RN) Lidocaine 4 % topical patch 1 Patch 1 Patch, Topical, DAILY, 3 doses, First dose (after last modification) on Thu03/26/23 at 0200, Last dose on Thu03/27/23 at 0900, Routine 0207 (Applied - Prov ider: Sly Lafleur RN - Comment: mid back)0859 (Removed - Provider: Nuha Abraham, RN)1020 (Applied - Provider: Nuha Abraham, RN)1204 (Due: Removed - Provider: PROVIDER, DISCHARGE PATIENT - Comment: Time automatically adjusted from order being discontinued) morphine 4 mg/mL injection 4 mg (COMPLETED) 4 mg, IV, ONE TIME ONLY, 1 dose, On Thu03/25/23 at 2130, Routine 2159 (Given - Provider: Luz Mcihael RN) morphine 4 mg/mL injection 4 mg (COMPLETED) 4 mg, IV, ONE TIME ONLY, 1 dose, On Thu03/25/23 at 2330, Routine 2330 (Given - Provider: Luz iMchael, SATURNINO) ondansetron (ZOFRAN) 4 mg/2 mL injection 4 mg (COMPLETED) 4 mg, IV, ONE TIME ONLY, 1 dose, On Thu03/25/23 at 2130, Routine 2159 (Given - Provider: Luz Michael RN) ondansetron (ZOFRAN) 4 mg/2 mL injection 4 mg 4 mg, IV, ONE TIME ONLY, 1 dose, On Thu03/25/23 at 2330, Routine 2330 (Due) sodium chloride 0.9% bolus solution 1,000 mL (COMPLETED) 1,000 mL, IV, ONE TIME ONLY, 1 dose, On Thu03/25/23 at 2130, at 2,000 mL/hr, Administer over 30 Minutes, Routine 2158 (New Bag - Provider: Luz Michael RN)2228 (Stopped - Provider: Clauida Lorenz RN) Continuous Medication Order 03/24/2023 03/25/2023 03/26/2023 sodium chloride 0.9% infusion IV, at 125 mL/hr, CONTINUOUS, Starting on Thu03/25/23 at 2130, Until Crystal 03/26/23 at 1404, Routine 0129 (New Bag - Prov ider: Claudia Lorenz RN)1141 (Stopped - Provider: Nuha Abraham, RN) PRN Medication Order 03/24/2023 03/25/2023 03/26/2023 ketorolac (TORADOL) injection 10 mg 10 mg, IV, EVERY 6 HOURS PRN, Starting on Crystal 03/26/23 at 0103, Until Crystal 03/26/23 at 1404, Pain, Routine 0129 (Given - Provid er: Claudia Lorenz RN)1020 (Given - Provider: Nuha Abraham RN) documented in this encounter Additional Health Concerns Assessment Noted Time PHQ-9 Depression Total Score: 3 07/04/19 23 9:00 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
--- OUTSIDE RECORDS SUMMARY | 2024-06-08 20:19 | XMS_ITS | Encounter Summary ---
Author Organization [facility] Address [address] [place] [address] Care Team Providers Care Regulatory Technician Name Role Phone Elma Magaña MD Primary Care Provider [phone] Reason for Visit * Reason Comments Med Refill Encounter Details Date Type Department Care Team (Late st Contact Info) Description 05/06/2023 Refill [facility] [employer] [place] [address] [place] [phone] Elma Magaña MD [address] [place] [address] Type 2 diabetes mellitus without [...] Telephone Encounter - Henrietta Andrade RN - 05/07/2023 10:53 AM CST Spoke to pt giving this information. Pt verbalized understanding. Pt did not schedule a follow up at this time but is aware she will be due in June. SERVICE KITCHEN SUPERVISOR * Telephone Encounter - Elma Magaña MD - 05/06/2023 12:34 PM CST Please schedule her a f/u appt for [employer] SERVICE KITCHEN SUPERVISOR documented in this encounter Plan of Treatment Upcoming Encounters Date Type Department Care Team (Late st Contact Info) Description 06/20/2024 9:30 AM FOOD SERVICE KITCHEN SUPERVISOR Office Visit [facility] Orthopedic Surgery at the [facility] [address] [address] [place] [phone] [place] [address] [place] [address] 10/27/2024 2:45 PM CDT Office Visit [facility] Gastroenterology [facility] [address] [place] [phone] Bebo Benites MD [address] [place] [address] documented as of this encounter Visit Diagnoses Diagnosis Type 2 diabetes mellitus without complication, without long-term current use of insulin documented in this encounter Additional Health Concerns Assessment Noted Time PHQ-9 Depression Total Score: 3 07/04/19 23 9:00 AM FOOD SERVICE KITCHEN SUPERVISOR documented as of this encounter Care Teams Regulatory Technician Relationship Specialty Start Date End Date Elma Magaña MD [address] [place] [phone] PCP - General Family Practice 12/09/21 12/13/23 documented as of this encounter
--- OUTSIDE RECORDS SUMMARY | 2024-06-08 20:19 | XMS_ITS | Encounter Summary ---
Author Organization [facility] Address [address] [place] [address] Care Team Providers Care Pensionholder Information Clerk Name Role Phone Elma Magaña MD Primary Care Provider [phone] Reason for Visit * Reason Onset Date Comments Medication Refill 05/07/2023 Encounter Details Date Type Department Care Team (Late st Contact Info) Description 05/07/2023 Refill [facility] [employer] [address] [address] Luba Vuong, ANP [address] [facility] [address] [place] [address] Social History Tobacco Use Types [...] Andrade RN - 05/07/2023 10:53 AM CST Last refilled: 01/15/2023 Quantity given: 90 Number of refills: 0 Last appointment: 02/02/2023 Last Labs: 01/14/2023 Pantoprazole last filled 10/23/2021 90 with 4 refills. Pt states she called her pharmacy for refill and was told the prescription has . NICAL PROGRAM MANAGER documented in this encounter Plan of Treatment Upcoming Encounters Date Type Department Care Team (Late st Contact Info) Description 06/20/2024 9:30 AM TECHNICAL PROGRAM MANAGER Office Visit [facility] Orthopedic Surgery at the [facility] [address] [place] [address] [place] [address] [place] [address] 10/27/2024 2:45 PM CDT Office Visit [facility] Gastroenterology [facility] [address] [place] [phone] Bebo Benites MD [address] [place] [phone] documented as of this encounter Visit Diagnoses Not on filedocumented in this encounter Additional Health Concerns Assessment Noted Time PHQ-9 Depression Total Score: 3 07/04/19 23 9:00 AM TECHNICAL PROGRAM MANAGER documented as of this encounter Care Teams Pensionholder Information Clerk Relationship Specialty Start Date End Date Elma Magaña MD [address] [place] [phone] PCP - General Family Practice 12/09/21 12/13/23 documented as of this encounter
--- OUTSIDE RECORDS SUMMARY | 2024-06-08 20:19 | XMS_ITS | Encounter Summary ---
Author Organization [facility] Address [address] [place] [address] Care Team Providers Care Bug Trimmer Name Role Phone Bijal Wolfe MD Primary Care Provider [phone] Encounter Details Date Type Department Care Team (Late st Contact Info) Description 01/19/2024 External Device Data STL ABSTRACTION Provider, Abstract [...] st Contact Info) Description 06/20/2024 9:30 AM MANAGER STRATEGIC SOURCING Office Visit [facility] Orthopedic Surgery at the [facility] [address] [facility] [address] [place] [address] [place] [address] [place] [address] 10/27/2024 2:45 PM CDT Office Visit [facility] Gastroenterology [facility] [address] [place] [address] Bebo Benites MD [address] [phone] documented as of this encounter Visit Diagnoses Not on filedocumented in this encounter Additional Health Concerns Assessment Noted Time PHQ-9 Depression Total Score: 4 08/21/19 24 1:00 PM MANAGER STRATEGIC SOURCING documented as of this encounter Care Teams Bug Trimmer Relationship Specialty Start Date End Date Bijal Wolfe MD [address] [place] [phone] PCP - General Internal Medicine 12/14/23 documented as of this encounter
--- OUTSIDE RECORDS SUMMARY | 2024-06-08 20:19 | XMS_ITS | Encounter Summary ---
Author Organization [facility] Address [address] [place] [address] Care Team Providers Care Ciaio Counter Molder Name Role Phone Elma Magaña MD Primary Care Provider [phone] Reason for Visit * Reason Comments Med Refill Encounter Details Date Type Department Care Team (Late st Contact Info) Description 06/28/2022 Refill [facility] [employer] [place] [address] [place] [address] Elma Magaña MD [address] [place] [address] Type 2 diabetes mellitus without complication, without long-term current use of insulin; Encounter for BCP initial prescription Social History [...] * Telephone Encounter - Kim Gibbons - 06/30/2022 9:22 AM CST Pt scheduled a follow up 07/04/2022 at 9:00AM E DIRECTOR * Telephone Encounter - Elma Magaña MD - 06/30/2022 9:03 AM CST Please call to schedule patient a f/u appt. It was due Mid May E DIRECTOR documented in this encounter Plan of Treatment Upcoming Encounters Date Type Department Care Team (Late st Contact Info) Description 06/20/2024 9:30 AM STAGE DIRECTOR Office Visit [facility] Orthopedic Surgery at the [facility] [address] [facility] [address] [place] [address] [place] [address] [place] [address] 10/27/2024 2:45 PM CDT Office Visit [facility] Gastroenterology [place] [address] [place] [phone] Bebo Benites MD [address] [facility] [address] [place] [phone] documented as of this encounter Visit Diagnoses Diagnosis Type 2 diabetes mellitus without complication, without long-term current use of insulin Encounter for BCP initial prescription General counseling for prescription of oral contraceptives documented in this encounter Additional Health Concerns Assessment Noted Time PHQ-9 Depression Total Score: 4 11/30/19 22 2:00 PM CDT documented as of this encounter Care Teams Ciaio Counter Molder Relationship Specialty Start Date End Date Elma Magaña MD [address] [place] [phone] PCP - General Family Practice 12/09/21 12/13/23 documented as of this encounter
--- OUTSIDE RECORDS SUMMARY | 2024-06-08 20:19 | XMS_ITS | Encounter Summary ---
Author Organization [facility] Address [address] [place] [address] Care Team Providers Care Cloth Examiner Hand Name Role Phone Elma Magaña MD Primary Care Provider [phone] Encounter Details Date Type Department Care Team (Late st Contact Info) Description 08/10/2023 External Device Data STL ABSTRACTION Provider, Abstract [...] st Contact Info) Description 06/20/2024 9:30 AM RADAR SYSTEMS ENGINEER Office Visit [facility] Orthopedic Surgery at the [facility] [address] [facility] [address] [place] [address] [place] [address] [place] [address] 10/27/2024 2:45 PM CDT Office Visit [facility] Gastroenterology [facility] [address] [address] [place] [phone] Bebo Benites MD [address] [phone] documented as of this encounter Visit Diagnoses Not on filedocumented in this encounter Additional Health Concerns Assessment Noted Time PHQ-9 Depression Total Score: 5 07/10/19 24 1:00 PM RADAR SYSTEMS ENGINEER documented as of this encounter Care Teams Cloth Examiner Hand Relationship Specialty Start Date End Date Elma Magaña MD [address] [place] [phone] PCP - General Family Practice 12/09/21 12/13/23 documented as of this encounter
--- OUTSIDE RECORDS SUMMARY | 2024-06-08 20:19 | XMS_ITS | Encounter Summary ---
Author Organization [facility] Address [address] [place] [address] Care Team Providers Care Insole Presser Name Role Phone Elma Magaña MD Primary Care Provider [phone] Reason for Visit * Reason Comments FMLA Paperwork Follow Up Encounter Details Date Type Department Care Team (Latest Contact Info) Description 01/05/2023 8:00 AM CDT Telephone Check Up [facility] at Work [employer] [place] [address] [place] [address] Elma Magaña MD [address] [place] [phone] Type 2 diabetes mellitus without complication, without long-term current use of insulin (Primary Dx); Mixed hyperlipidemia; Nausea; Current mild episode of major depressive disorder, unspecified whether recurrent Social History Tobacco Use Types Packs/Day Years [...] Progress Notes * Elma Magaña MD - 01/05/2023 8:16 AM CDT TELEPHONE PROGRESS NOTE DATE: 01/05/2023 PATIENT: Lis Phelan : 1985 PCP: Elma Magaña MD Chief Complaint Patient presents with FMLA Paperwork Follow Up HISTORY OF PRESENT ILLNESS 37 yo wf on telehealth visit to discuss depression. Her motor winder recently changed her from sertraline to lexapro approx 1 month ago. She states that it is going really well. She states that her mood is doing much better with some residual. She states that she gets periodic gi flare up of severe pain that then triggers her depression symptoms to be worse. During these flares she has severe withdrawal and she doesn't want to do anything. Initially shestates that she misses work for 2 days every few months, later she says it is every 1-1.5months. Her PHQ9 score is 7. Exercise - Active at work. She has been walking dogs in the evenings. Diet - She states that she is not eating much. She has very little appetite and she feels full. Shegets quite a bit of nausea. She hasn't seen the GI recently. She states these symptoms are due to mounjaro. She states that she discussed changing ocp with her motor winder for one that doesn't interact with mounjaro. She is aware that she needs to use back up contraception. PAST MEDICAL HISTORY: Past Medical History: Diagnosis [...] RELEASE performed by Paddy Mackey MD at [facility] CC OR HX GASTROSCHISIS CLOSURE HX HAND SURGERY Right 4th digit HX RHINOPLASTY Bilateral 12/20/2020 HX SURGICAL OTHER 04/2004 adhesion removed HX TURBINATE RESECTION Right 12/20/2020 LA CHOLECYSTECTOMY N/A 11/03/2019 OPEN CHOLECYSTECTOMY performed by Gabbie Wheeler MD at [facility] OR MAIN LA COLONOSCOPY FLX DX W/COLLJ SPEC WHEN PFRMD N/A 02/10/2022 checkout COLONOSCOPY performed by Bebo Benites MD at [facility] GI LAB LA ESOPHAGOGASTRODUODENOSCOPY TRANSORAL DIAGNOSTIC N/A 05/17/2019 ESOPHAGOGASTRODUODENOSCOPY performed by Jena Cerda MD at [facility] GI LAB LA ESOPHAGOGASTRODUODENOSCOPY TRANSORAL DIAGNOSTIC N/A 02/10/2022 checkout ESOPHAGOGASTRODUODENOSCOPY performed by Bebo Benites MD at [facility] GI LAB CURRENT MEDICATIONS Current Outpatient Medications Medication Sig Dispense Refill tirzepatide (Mounjaro) 5 mg/0.5 mL Pen Injector Inject 5 mg by subcutaneous injection every 7 days.2 mL 0 lisinopriL (PRINIVIL) 10 mg tablet Take 1 Tablet (10 mg) by mouth daily. 90 Tablet 0 escitalopram oxalate (LEXAPRO) 10 mg tablet Take 10 mg by mouth daily. buPROPion HCL (WELLBUTRIN SR) 150 mg Sustained [...] vitamin D3, 1,000 unit Take by mouth. pantoprazole (PROTONIX) 40 mg Tablet, Delayed Release (E.C.) Take 1 Tablet (40 mg) by mouth daily. 90 Tablet 4 fenofibrate (LOFIBRA) 160 mg Tablet Take 1 Tablet (160 mg) by mouth daily. 90 Tablet 1 rosuvastatin (CRESTOR) 40 mg tablet Take 1 Tablet (40 mg) by mouth daily at bedtime. 90 Tablet 2 cetirizine (ZyrTEC) 10 mg tablet Take 10 mg by mouth daily. [DISCONTINUED] tirzepatide (Mounjaro) 7.5 mg/0.5 mL Pen Injector Inject 0.5 mL (7.5 mg) by subcutaneous injection every 7 days. 2 mL 0 fluticasone propionate (FLONASE) 50 mcg/spray [place], Suspension nasal inhaler Administer 2 Sprays in each nostril daily. 16 Gram 0 ALPRAZolam (XANAX) 0.25 mg tablet Take 1 Tablet (0.25 mg) by mouth 2 times daily as needed for Anxiety. 15 Tablet 0 albuterol sulfate 90 mcg/Actuation inhaler Take 1-2 Puffs by inhalation every 4 hours as needed forShortness of Breath or Wheezing. 6.7 Gram 6 No current facility-administered medications for this visit. [...] wheeze. A/P Lis was seen today for fmla paperwork and follow up. Diagnoses and all orders for this visit: Type 2 diabetes mellitus without complication, without long-term current use of insulin - VITAMIN B12 LEVEL; Future - HEMOGLOBIN A1C; Future - LIPID PANEL; Future - BASIC METABOLIC PANEL; Future Mixed hyperlipidemia - VITAMIN B12 LEVEL; Future - HEMOGLOBIN A1C; Future - LIPID PANEL; Future - BASIC METABOLIC PANEL; Future Nausea Current mild episode of major depressive disorder, unspecified whether recurrent Other orders - tirzepatide (Mounjaro) 5 mg/0.5 mL Pen Injector; Inject 5 mg by subcutaneous injection every 7 days. Continue lexapro 10mg daily. Work on adding strength training and increasing vegetables and protein. We are decreasing mounjaro down to 5mg daily due to decreased appetite and nausea. Hopefully, thiswill help her to push the proper nutrients which will help her mood as well. I agreed to write FMLA for 1 episode a month up to 2 days per episode. We discussed that she needs to f/u with Dr. Platt to discuss how to decrease her flare ups and to have GI take over FMLA forms going forward if missing work is primarily due to GI symptoms. PATIENT INSTRUCTIONS FOLLOW UP Data Unavailable Elma Magaña MD 01/05/2023 [facility] AT WORK [address] [address] This encounter was completed via audio-only two way synchronous communication. Patient's identity confirmed yes Patient gave verbal consent to have these services billed to their insurance and expressed understanding that co-insurance and deductible may apply: no Time spent by the provider delivering the care documented in this encounter 34 minutes. documented in this encounter Plan of Treatment Upcoming Encounters Date Type Department Care Team (Late st Contact Info) Description 06/20/2024 9:30 AM GLOVE SEWER Office Visit [facility] Orthopedic Surgery at the [facility] [address] [place] [phone] [place] [address] [place] [address] 10/27/2024 2:45 PM CDT Office Visit [facility] Gastroenterology [place] [address] [place] [address] Bebo Benites MD [address] [place] [address] documented as of this encounter Results * (ABNORMAL) BASIC METABOLIC PANEL (01/14/2023 7:28 AM CDT) [facility] GLUCOSE 124(H) 65 - 99 mg/dL [facility] Comment: ? Fasting reference interval For someone without known diabetes, a glucose value between 100 and 125 mg/dL is consistent with prediabetes and should be confirmed with a follow-up test. BUN 12 7 - 25 mg/dL [facility] CREATININE 0.78 0.50 - 0.97 mg/dL [facility] GFR 101 > OR = 60 mL/min/1 .73m2 [facility] Comment: The eGFR is based on the CKD-EPI 2020 equation. To calculate the new eGFR from a previous Creatinine or Cystatin C result, go to https://www.kidney.org/professionals/ kdoqi/gfr%5Fcalculator BUN/CREAT RATIO NOT APPLICABLE 6 - 22 (calc) [facility] SODIUM 136 135 - 146 mmol/L [facility] POTASSIUM 4.3 3.5 - 5.3 mmol/L [facility] CHLORIDE 105 98 - 110 mmol/L [facility] CO2 18(L) 20 - 32 mmol/L [facility] CALCIUM 9.2 8.6 - 10.2 mg/dL [facility] Comment: Test Performed at: [facility] [address] [address] [place] ??[phone] [facility] Blood 01/14/2023 7:28 AM CDT 01/15/2023 2:33 AM CDT Elma Magaña MD CHEMISTRY ORDERABLES [facility] [phone] [place] [address] [address] [place] [phone] * (ABNORMAL) LIPID PANEL (01/14/2023 7:28 AM CDT) CHOLESTEROL 184 <200 mg/dL [facility] HDL 48(L) > OR = 50 mg/dL [facility] TRIGLYCERIDE 167(H) <150 mg/dL [facility] S[facility] LDL CALCULATED 108(H) mg/dL (calc) [facility] oneyda Will Comment: Reference range: <100 Desirable range <100 mg/dL for primary prevention; ?? <70 mg/dL for patients with CHD or diabetic patients with > or = 2 CHD risk factors. LDL-C is now calculated using the Tito-Terrie calculation, which is a validated novel method providing better accuracy than the Friedewald equation in the estimation of LDL-C. Tito CORTES et al. JOSUE. 2013;310(19): 1450-3864 (http://education.Luqit.Linux Voice/faq/VOJ346) CHOL/HDL RATIO 3.8 <5.0 (calc) [facility] oneyda Will TOTAL NON-HDL CHOL(LDL+VLDL) 136(H) <130 mg/dL (calc) [facility] oneyda Will Comment: For patients with diabetes plus 1 major ASCVD risk factor, treating to a non-HDL-C goal of <100 mg/dL (LDL-C of <70 mg/dL) is considered a therapeutic option. Test Performed at: [facility] [place] [address] [address] [place] ??[phone] [facility]el [facility] Ankur Blood 01/14/2023 7:28 AM CDT 01/15/2023 2:33 AM CDT Elma Magaña MD CHEMISTRY ORDERABLES Performing Organization Address [facility] Code Phone Number [facility] [phone] [place] [address] [place] [address] * HEMOGLOBIN A1C (01/14/2023 7:28 AM CDT) HEMOGLOBIN A1C 5.4 <5.7 % of total Hgb [facility] Comment: For the purpose of screening for the presence of diabetes: <5.7% ? Consistent with the absence of diabetes 5.7-6.4% ?Consistent with increased risk for diabetes ?(prediabetes) > or =6.5% ??Consistent with diabetes This assay result is consistent with a decreased risk of diabetes. Currently, no consensus exists regarding use of hemoglobin A1c for diagnosis of diabetes in children. According to [place] Diabetes Association (ADA) guidelines, hemoglobin A1c <7.0% represents optimal control in non- diabetic patients. Different metrics may apply to specific patient populations. Standards of Medical Care in Diabetes(ADA). ?? ESTIMATED AVERAGE GLUCOSE (MG/DL) 108 mg/dL [facility] Will ESTIMATED AVERAGE GLUCOSE (MMOL/L) 6.0 mmol/L [facility] Comment: Test Performed at: [facility] [place] [address] [place] ??[phone] [facility] Blood 01/14/2023 7:28 AM CDT 01/15/2023 2:33 AM CDT Elma Magaña MD CHEMISTRY ORDERABLES Performing Organization Address [facility] Code Phone Number [facility] [phone] [place] [address] [place] [address] * VITAMIN B12 LEVEL (01/14/2023 7:28 AM CDT) VITAMIN B12 792 200 - 1100 pg/mL [facility] Comment: Test Performed at: [facility] [address] [place], [place] ??[phone] Molina Pascual MD Blood 01/14/2023 7:28 AM CDT 01/15/2023 2:33 AM CDT Elma Magaña MD CHEMISTRY ORDERABLES [facility] [phone] [facility] [address] [place] [address] documented in this encounter Visit Diagnoses Diagnosis Type 2 diabetes mellitus without complication, without long-term current use of insulin- Primary Mixed hyperlipidemia Nausea Nausea alone Current mild episode of major depressive disorder, unspecified whether recurrent documented in this encounter Additional Health Concerns Assessment Noted Time PHQ-9 Depression Total Score: 3 07/04/19 23 9:00 AM GLOVE SEWER documented as of this encounter Care Teams Insole Presser Relationship Specialty Start Date End Date Elma Magaña MD [address] [place] [phone] PCP - General Family Practice 12/09/21 12/13/23 documented as of this encounter
--- OUTSIDE RECORDS SUMMARY | 2024-06-08 20:19 | XMS_ITS | Encounter Summary ---
Author Organization [facility] Address [address] [place] [address] Care Team Providers Care Nut Roaster Name Role Phone Elma Magaña MD Primary Care Provider [phone] Reason for Visit * Reason Onset Date Comments Medication Refill 09/15/2023 Encounter Details Date Type Department Care Team (Late st Contact Info) Description 09/15/2023 Refill [facility] at Work [employer] [place] [address] [phone] Luba Vuong, ANP [address] [facility] Scott [address] [place] [address] Social History Tobacco Use Types [...] Telephone Encounter - Henrietta Andrade RN - 09/16/2023 11:01 AM CDT Pt states she has not yet started taking the prazosin. Pt states she has been having sinus issues and taking OTC cold medications so she did not want to start a new medication at the same time. Advised pt to call back with follow up after starting the new medication. Pt verbalized understanding andagreed with this plan. * Telephone Encounter - Luba Vuong ANP - 09/15/2023 4:19 PM CDT Please check with pt on her response to the prazosin medication for nightmares. She did not provide follow up as I asked her to do. See email. Thank you. * Telephone Encounter - Henrietta Andrade RN - 09/15/2023 1:34 PM CDT Last refilled: 08/10/2023 Quantity given: 30 Number of refills: 0 Last appointment: 08/27/2023 Next appointment: 11/27/2023 Last Labs: 08/27/2023 documented in this encounter Plan of Treatment Upcoming Encounters Date Type Department Care Team (Late st Contact Info) Description 06/20/2024 9:30 AM SEALS ENGRAVER Office Visit [facility] Surgery at the [facility] [address] [facility] [facility] [place] [address] [place] [address] [place] [address] 10/27/2024 2:45 PM CDT Office Visit [facility] [address] [place] [address] Bebo Benites MD [address] [facility] [address] [place] [address] documented as of this encounter Visit Diagnoses Not on filedocumented in this encounter Additional Health Concerns Assessment Noted Time PHQ-9 Depression Total Score: 4 08/21/19 24 1:00 PM SEALS ENGRAVER documented as of this encounter Care Teams Nut Roaster Relationship Specialty Start Date End Date Elma Magaña MD [address] [place] [phone] PCP - General Family Practice 12/09/21 12/13/23 documented as of this encounter
--- OUTSIDE RECORDS SUMMARY | 2024-06-08 20:19 | XMS_ITS | Encounter Summary ---
Author Organization [facility] Address [address] [place] [address] Care Team Providers Care Continuous Process Tanner Rotary Drum Name Role Phone Elma Magaña MD Primary Care Provider [phone] Reason for Visit * Reason Comments Medication Refill Encounter Details Date Type Department Care Team (Latest Contact Info) Description 07/04/2022 10:00 AM STOCKHOLDER Clinical Support [facility] at [email or web address] [place] [address] [place] [phone] Encounter for issue of repeat prescription (Primary [...] Progress Notes * Henrietta Andrade, SATURNINO - 07/04/2022 9:55 AM CST Metformin 500mg BID #200. No refills KHOLDER documented in this encounter Plan of Treatment Upcoming Encounters Date Type Department Care Team (Late st Contact Info) Description 06/20/2024 9:30 AM STOCKHOLDER Office Visit [facility] Orthopedic Surgery at the [facility] [address] [facility] [address] [place] [address] [place] [address] [place] [address] 10/27/2024 2:45 PM CDT Office Visit [facility] Gastroenterology [facility] [address] [facility] [facility] [address] [place] [phone] Bebo Benites MD [address] [facility] [address] [place] [address] documented as of this encounter Visit Diagnoses Diagnosis Encounter for issue of repeat prescription- Primary Issue of repeat prescriptions documented in this encounter Additional Health Concerns Assessment Noted Time PHQ-9 Depression Total Score: 3 07/04/19 23 9:00 AM STOCKHOLDER documented as of this encounter Care Teams Continuous Process Tanner Rotary Drum Relationship Specialty Start Date End Date Elma Magaña MD [address] [facility] [address] PCP - General Family Practice 12/09/21 12/13/23 documented as of this encounter
--- OUTSIDE RECORDS SUMMARY | 2024-06-08 20:19 | XMS_ITS | Encounter Summary ---
Author Organization [facility] Address [address] [place] [address] Care Team Providers Care Police Shift Commander Name Role Phone Elma Magaña MD Primary Care Provider [phone] Reason for Visit * Reason Onset Date Comments er f/u 04/13/2023 Encounter Details Date Type Department Care Team (Late st Contact Info) Description 04/13/[address] [facility] at Work [employer] [place] [address] [place] [address] Elma Magaña MD [address] [place] [phone] er f/u Social History Tobacco Use Types Packs/Day Years [...] Telephone Encounter - Henrietta Andrade RN - 04/14/2023 10:52 AM CDT Pt states she was treated for UTI and stayed overnight for IV antibiotics and fluids. Pt states sheis feeling better and no complaints at this time. Pt declined follow up visit. Advised pt to call with any back pain/tenderness or urinary symptoms. Pt verbalized understanding and agreed with this plan. * Telephone Encounter - Elma Magaña MD - 04/13/2023 7:18 AM CDT Please call patient and see how they are doing after recent er visit. Please schedule f/u appt if needed. documented in this encounter Plan of Treatment Upcoming Encounters Date Type Department Care Team (Late st Contact Info) Description 06/20/2024 9:30 AM HOT TAMALE WORKER Office Visit [facility] Orthopedic Surgery at the [facility] [address] [facility] [address] [place] [address] [place] [address] [place] [address] 10/27/2024 2:45 PM CDT Office Visit [facility] [address] [place] [phone] Bebo Benites MD [address] [facility] [address] [place] [address] documented as of this encounter Visit Diagnoses Not on filedocumented in this encounter Additional Health Concerns Assessment Noted Time PHQ-9 Depression Total Score: 3 07/04/19 9:00 AM HOT TAMALE WORKER documented as of this encounter Care Teams Police Shift Commander Relationship Specialty Start Date End Date Elma Magaña MD [address] [place] [phone] PCP - General Family Practice 12/09/21 12/13/23 documented as of this encounter
--- OUTSIDE RECORDS SUMMARY | 2024-06-08 20:19 | XMS_ITS | Encounter Summary ---
Author Organization [facility] Address [address] [place] [address] Care Team Providers Care Hoop Bender Tank Name Role Phone Elma Magaña MD Primary Care Provider [phone] Reason for Visit * Reason Comments Follow Up Encounter Details Date Type Department Care Team (Late st Contact Info) Description 02/02/2023 1:30 PM CDT Office Visit [facility] at [facility] [place] [address] [place] [address] Elma Magaña MD [address] [place] [address] Type 2 diabetes mellitus without complication, without long-term current use of insulin (Primary Dx); Recurrent major depressive disorder, in remission Social History Tobacco Use Types Packs/Day Years [...] Sign Reading Time Taken Comments Blood Pressure 112/78 02/02/2023 1:36 PM CDT Pulse 83 02/02/2023 1:36 PM CDT Temperature 37.1 ??C (98.7 ??F) 02/02/2023 1:36 PM CD T Respiratory Rate 16 02/02/2023 1:36 PM CDT Oxygen Saturation 97% 02/02/2023 1:36 PM CDT Inhaled Oxygen Concentration - - Weight 102.5 kg (226 lb) 02/02/2023 1:36 PM CDT Height 167.6 cm (5' 6 ) 02/02/2023 1:36 PM CDT Body Mass Index 36.48 02/02/2023 1:36 PM CDT documented in this encounter Progress Notes * Elma Magaña MD - 02/02/2023 1:54 PM CDT OFFICE VISIT PROGRESS NOTE DATE: 02/02/2023 PATIENT: Lis Phelan : 1985 PCP: Elma Magaña MD Chief Complaint Patient presents with Follow Up HISTORY OF PRESENT ILLNESS 38 yo female here for f/u. She has cut out bad foods from her diet. She is eating vegetables, lean protein (usually chicken or tuna) and some fruit. Weight was 242 and is now 226. At our last visit, she said that GI symptoms were due to Mounjaro, after going down to the 5mg dose, she states that her symptoms are NOT due to Mounjaro and she would like to go back up to the 7.5mg dose. She reached out via [facility] to GI, but hasn't heard back. Exercise - walking a lot at work and some dog walking in the evening. She hasn't added strength training yet. She is willing to add strength training. Her mood continues to do very well on the Lexapro 10mg. She is tolerating it well. She states that she has much less times that she isn't motivated to do anything. She still has days when it feels hard to get out of bed in the AM. Once she is up, everything goes well and she finds her motivation and energy. Procedure visit on 01/14/2023 Component Date Value Ref Range Status GLUCOSE 01/14/2023 124 (H) 65 - 99 mg/dL Final Comment: Fasting reference interval For someone without known diabetes, a glucose value between 100 and 125 mg/dL is consistent with prediabetes and should be confirmed with a follow-up test. BUN 01/14/2023 12 7 - 25 mg/dL Final CREATININE 01/14/2023 0.78 0.50 - 0.97 mg/dL Final GFR 01/14/2023 101 > OR = 60 mL/min/1.73m2 Final Comment: The eGFR is based on the CKD-EPI 2020 equation. To calculate the new eGFR from a previous Creatinine or Cystatin C result, go to https://www.kidney.org/professionals/ kdoqi/gfr%5Fcalculator BUN/CREAT RATIO 01/14/2023 NOT APPLICABLE 6 (calc) Final SODIUM 01/14/2023 136 135 - 146 mmol/L Final POTASSIUM 01/14/2023 4.3 3.5 - 5.3 mmol/L Final CHLORIDE 01/14/2023 105 98 - 110 mmol/L Final CO2 01/14/2023 18 (L) 20 - 32 mmol/L Final CALCIUM 01/14/2023 9.2 8.6 - 10.2 mg/dL Final Comment: Test Performed at: [facility] [address] [place] [address] [facility] CHOLESTEROL 01/14/2023 184 <200 mg/dL Final HDL 01/14/2023 48 (L) > OR = 50 mg/dL Final TRIGLYCERIDE 01/14/2023 167 (H) <150 mg/dL Final LDL CALCULATED 01/14/2023 108 (H) mg/dL (calc) Final Comment: Reference range: <100 Desirable range <100 mg/dL for primary prevention; <70 mg/dL for patients with CHD or diabetic patients with > or = 2 CHD risk factors. LDL-C is now calculated using the Medardo calculation, which is a validated novel method providing better accuracy than the Friedewald equation in the estimation of LDL-C. Tito CORTES et al. JOSUE. 2013;310(19): 1609-8981 (http://education.Biosystem Development.Spowit/faq/VOJ376) CHOL/HDL RATIO 01/14/2023 3.8 <5.0 (calc) Final TOTAL NON-HDL CHOL(LDL+VLDL) 01/14/2023 136 (H) <130 mg/dL (calc) Final Comment: For patients with diabetes plus 1 major ASCVD risk factor, treating to a non-HDL-C goal of <100 mg/dL (LDL-C of <70 mg/dL) is considered a therapeutic option. Test Performed at: [facility] [address] [place] [address] [facility] HEMOGLOBIN A1C 01/14/2023 5.4 <5.7 % of total Hgb Final Comment: For the purpose of screening for the presence of diabetes: <5.7% Consistent with the absence of diabetes 5.7-6.4% Consistent with increased risk for diabetes (prediabetes) > or =6.5% Consistent with diabetes This assay result is consistent with a decreased risk of diabetes. Currently, no consensus exists regarding use of hemoglobin A1c for diagnosis of diabetes in children. According to [place] Diabetes Association (ADA) guidelines, hemoglobin A1c <7.0% represents optimal control in non- diabetic patients. Different metrics may apply to specific patient populations. Standards of Medical Care in Diabetes(ADA). ESTIMATED AVERAGE GLUCOSE (MG/DL) 01/14/2023 108 mg/dL Final ESTIMATED AVERAGE GLUCOSE (MMOL/L) 01/14/2023 6.0 mmol/L Final Comment: Test Performed at: [facility] [place] [address] [address] [place] [place] [address] [facility] VITAMIN B12 01/14/2023 792 200 - 1100 pg/mL Final Comment: Test Performed at: [facility] [address] [place] [address] Molina Pascual MD PAST MEDICAL HISTORY: Past Medical History: Diagnosis [...] RELEASE performed by Paddy Mackey MD at [facility] CC OR HX GASTROSCHISIS CLOSURE HX HAND SURGERY Right 4th digit HX RHINOPLASTY Bilateral 12/20/2020 HX SURGICAL OTHER 04/2004 adhesion removed HX TURBINATE RESECTION Right 12/20/2020 CA CHOLECYSTECTOMY N/A 11/03/2019 OPEN CHOLECYSTECTOMY performed by Gabbie Wheeler MD at [facility] OR MAIN CA COLONOSCOPY FLX DX W/COLLJ SPEC WHEN PFRMD N/A 02/10/2022 checkout COLONOSCOPY performed by Bebo Benites MD at [facility] GI LAB CA ESOPHAGOGASTRODUODENOSCOPY TRANSORAL DIAGNOSTIC N/A 05/17/2019 ESOPHAGOGASTRODUODENOSCOPY performed by Jena Cerda MD at [facility] GI LAB CA ESOPHAGOGASTRODUODENOSCOPY TRANSORAL DIAGNOSTIC N/A 02/10/2022 checkout ESOPHAGOGASTRODUODENOSCOPY performed by Bebo Benites MD at [facility] GI LAB CURRENT MEDICATIONS Current Outpatient Medications Medication Sig Dispense Refill Nexplanon 68 mg Implant Inject 68 mg by subcutaneous injection one time only. tirzepatide (Mounjaro) 7.5 mg/0.5 mL Pen Injector Inject 0.5 mL (7.5 mg) by subcutaneous injection every 7 days. 6 mL 0 escitalopram oxalate (LEXAPRO) 10 mg tablet [...] mouth daily at bedtime. 90 Tablet 0 buPROPion HCL (WELLBUTRIN SR) [...] mg) by mouth daily. 90 Tablet 1 cetirizine (ZyrTEC) 10 mg tablet Take 10 mg by mouth daily. [DISCONTINUED] tirzepatide (Mounjaro) 5 mg/0.5 mL Pen Injector Inject 5 mg by subcutaneous injection every 7 days. 2 mL 0 fluticasone propionate (FLONASE) 50 mcg/spray [place], Suspension nasal inhaler Administer 2 Sprays in [...] SYSTEMS As in HPI PHYSICAL EXAMINATION BP 112/78 (BP Location: Left arm, Patient Position (BP): Sitting, BP Cuff Size: Large Adult) Pulse 83 Temp 98.7 ??F (37.1 ??C) (Tympanic) Resp 16 Ht 5' 6 (1.676 m) Wt 102.5 kg (226 lb) SpO2 97% BMI 36.48 kg/m?? Gen - AAO, NAD Head- normocephalic/atraumatic. [...] mg) by subcutaneous injection every 7 days. Recurrent major depressive disorder, in remission Increase Mounjaro back to 7.5mg. Again, discussed that this medication interferes with OCP effectiveness. Again, encouraged patient to reach out to GI, Dr. Benites to discuss symptoms and Mounjaroand future FMLA. Other meds all the same. Patient to continue to work on improving lifestyle. If patient is tolerating increased dose of Mounjaro, then f/u visit with labs in 5 months. Elma Magaña MD 02/02/2023 [facility] [email or web address] [address] [address] documented in this encounter Plan of Treatment Upcoming Encounters Date Type Department Care Team (Late st Contact Info) Description 06/20/2024 9:30 AM PROFESSOR OF FINE ART Office Visit [facility] Orthopedic Surgery at the [facility] [address] [facility] [address] [place] [address] [place] [address] [place] [address] 10/27/2024 2:45 PM CDT Office Visit [facility] Gastroenterology [facility] [address] [facility] [address] [place] [phone] Bebo Benites MD [address] [facility] [address] [place] [address] documented as of this encounter Visit Diagnoses Diagnosis Type 2 diabetes mellitus without complication, without long-term current use of insulin- Primary Recurrent major depressive disorder, in remission documented in this encounter Additional Health Concerns Assessment Noted Time PHQ-9 Depression Total Score: 3 07/04/19 23 9:00 AM PROFESSOR OF FINE ART documented as of this encounter Care Teams Hoop Bender Tank Relationship Specialty Start Date End Date Elma Magaña MD [address] [place] [phone] PCP - General Family Practice 12/09/21 12/13/23 documented as of this encounter
--- OUTSIDE RECORDS SUMMARY | 2024-06-08 20:19 | XMS_ITS | Encounter Summary ---
Author Organization [facility] Address [address] [place] [address] Care Team Providers Care Ekg/Ecg Technician Name Role Phone Elma Magaña MD Primary Care Provider [phone] Reason for Visit * Reason Comments Medication Refill Encounter Details Date Type Department Care Team (Latest Contact Info) Description 08/12/2023 2:20 PM ROLLWAY MAN Procedure visit [facility] at Work [employer] [place] [address] [place] [phone] Issue of repeat prescription for medication (Primary [...] encounter Progress Notes * Ness Kidd - 08/12/2023 2:59 PM CST Bupropion hcl 300 mg tab # 30 (1 bottle) WAY MAN documented in this encounter Plan of Treatment Upcoming Encounters Date Type Department Care Team (Late st Contact Info) Description 06/20/2024 9:30 AM ROLLWAY MAN Office Visit [facility] Orthopedic Surgery at the [facility] [address] [facility] [address] [place] [address] [place] [address] [place] [address] 10/27/2024 2:45 PM CDT Office Visit [facility] Gastroenterology [address] [facility] [address] [place] [address] Bebo Benites MD [address] [facility] [address] [place] [address] documented as of this encounter Visit Diagnoses Diagnosis Issue of repeat prescription for medication- Primary Issue of repeat prescriptions documented in this encounter Additional Health Concerns Assessment Noted Time PHQ-9 Depression Total Score: 5 07/10/19 24 1:00 PM ROLLWAY MAN documented as of this encounter Care Teams Ekg/Ecg Technician Relationship Specialty Start Date End Date Elma Magaña MD [address] [place] [phone] PCP - General Family Practice 12/09/21 12/13/23 documented as of this encounter
--- OUTSIDE RECORDS SUMMARY | 2024-06-08 20:19 | XMS_ITS | Encounter Summary ---
Author Organization [facility] Address [address] [place] [address] Care Team Providers Care Mental Tester Name Role Phone Elma Magaña MD Primary Care Provider [phone] Reason for Visit * Reason Onset Date Comments CoCM Rekha Appt 11/02/2023 Pt said she is f ine for now and declined further sessions. Encounter Details Date Type Department Care Team (Late st Contact Info) Description 11/02/2023 Telephone [facility] at Work [employer] [place] [address] [place] [address] Beni Kaur [address] [place] [address] CoCM Rekha Appt (Pt said she is fine for now and declined further sessions.) Social History Tobacco Use Types Packs/Day Years [...] encounter Miscellaneous Notes * Telephone Encounter - Beni Kaur - 11/02/2023 3:49 PM CDT Collaborative Care - Declined Currently, Lis does not want to proceed with Collaborative Care services due to I'm doing fineright now. . Lis is aware that they can discuss Collaborative Care options with Elma Magaña MD in the future, if needed. The referring provider, Elma Magaña MD, was also made aware oftheir decision to decline Collaborative Care services at this time and will continue to monitor Lis in case he/she needs to be referred again in the future. Lis verbalized an accurate understanding that should he/she experience a psychiatric emergency in the future, they are to contact [facility] or the National Suicide Prevention Lifeline at 248 (call or text) or . documented in this encounter Plan of Treatment Upcoming Encounters Date Type Department Care Team (Late st Contact Info) Description 06/20/2024 9:30 AM WRAPPER SORTER Office Visit [facility] Orthopedic Surgery at the [facility] [address] [facility] [place] [address] [place] [address] [place] [address] 10/27/2024 2:45 PM CDT Office Visit [facility] Gastroenterology [facility] [address] [facility] [address] [place] [phone] Bebo Benites MD [address] [facility] [address] [place] [address] documented as of this encounter Visit Diagnoses Not on filedocumented in this encounter Additional Health Concerns Assessment Noted Time PHQ-9 Depression Total Score: 4 08/21/19 24 1:00 PM WRAPPER SORTER documented as of this encounter Care Teams Mental Tester Relationship Specialty Start Date End Date Elma Magaña MD [address] [place] [phone] PCP - General Family Practice 12/09/21 12/13/23 documented as of this encounter
--- OUTSIDE RECORDS SUMMARY | 2024-06-08 20:19 | XMS_ITS | Encounter Summary ---
Author Organization [facility] Address [address] [place] [address] Care Team Providers Care Salesperson Toy Trains And Accessories Name Role Phone Elma Magaña MD Primary Care Provider [phone] Reason for Visit * Reason Onset Date Comments Appointment Verification 2023 Encounter Details Date Type Department Care Team ([facility] Contact Info) Description 2023 Telephone [facility] [employer] [place] [address] [place] [phone] Elma Magaña MD [address] [place] [address] Appointment Verification Social History Tobacco Use [...] * Telephone Encounter - Yazmin Sullivan - 2023 1:57 PM CDT LVM with a reminder for patients upcoming appointment on 02/02/23 at 1:[address] [facility]. documented in this encounter Plan of Treatment Upcoming Encounters Date Type Department Care Team ([facility] Contact Info) Description 06/20/2024 9:30 AM COMMUNICATIONS DESIGNER Office Visit [facility] Orthopedic Surgery at the [facility] [address] [facility] [address] [place] [address] [place] [address] [place] [address] 10/27/2024 2:45 PM CDT Office Visit [facility] Gastroenterology [facility] [address] [facility] [address] [place] [address] Bebo Benites MD [address] [facility] [address] [place] [address] documented as of this encounter Visit Diagnoses Not on filedocumented in this encounter Additional Health Concerns Assessment Noted Time PHQ-9 Depression Total Score: 3 07/04/19 23 9:00 AM COMMUNICATIONS DESIGNER documented as of this encounter Care Teams Salesperson [employer] Relationship Specialty Start Date End Date Elma Magaña MD [address] [place] [phone] PCP - General Family Practice 12/09/21 12/13/23 documented as of this encounter
--- OUTSIDE RECORDS SUMMARY | 2024-06-08 20:19 | XMS_ITS | Encounter Summary ---
Author Organization [facility] Address [address] [place] [address] Care Team Providers Care Perfect Binder Feeder Offbearer Name Role Phone Elma Magaña MD Primary Care Provider [phone] Reason for Visit * Reason Onset Date Comments Medication Refill 06/11/2022 Encounter Details Date Type Department Care Team (Late st Contact Info) Description 06/11/2022 Refill [facility] at [facility] [employer] [place] [address] [place] [address] Elma Magaña MD [address] [place] [address] Type 2 diabetes mellitus without [...] Telephone Encounter - Henrietta Andrade RN - 06/11/2022 11:36 AM CST Spoke to pt giving this information. Pt verbalized understanding. Pt did not schedule a follow up at this time. I will schedule a follow up when she comes in to sampler pickup her medications. TENDER * Telephone Encounter - Elma Magaña MD - 06/11/2022 11:22 AM CST Sending refill, but please call patient to schedule her f/u appt - it was due mid May TENDER * Telephone Encounter - Henrietta Andrade RN - 06/11/2022 8:10 AM CST Last appointment: 03/03/2022 Last Labs: 03/03/2022 Last Filled: 08/26/2021 Quantity give: 180 After labs on 09/12/21, it was recommended that pt increase metformin to 1,000mg BID. Spoke to pt and she states she did not increase the dose and continued taking metformin 500mg BID. Repeat labs on 03/03/22 showed A1C of 5.7. TENDER documented in this encounter Plan of Treatment Upcoming Encounters Date Type Department Care Team (Late st Contact Info) Description 06/20/2024 9:30 AM DRAW TENDER Office Visit [facility] Orthopedic Surgery at the [facility] [address] [facility] [address] [place] [phone] [place] [address] [place] [address] 10/27/2024 2:45 PM CDT Office Visit [facility] Gastroenterology [facility] [address] [facility] [address] [place] [phone] Bebo Benites MD [address] [facility] [address] [place] [address] documented as of this encounter Visit Diagnoses Diagnosis Type 2 diabetes mellitus without complication, without long-term current use of insulin documented in this encounter Additional Health Concerns Assessment Noted Time PHQ-9 Depression Total Score: 4 11/30/19 22 2:00 PM CDT documented as of this encounter Care Teams Perfect Binder Feeder Offbearer Relationship Specialty Start Date End Date Elma Magaña MD [address] [place] [phone] PCP - General Family Practice 12/09/21 12/13/23 documented as of this encounter
--- OUTSIDE RECORDS SUMMARY | 2024-06-08 20:19 | XMS_ITS | Encounter Summary ---
Author Organization [facility] Address [address] [place] [address] Care Team Providers Care Pulp Grinder Feeder Name Role Phone Elma Magaña MD Primary Care Provider [phone] Reason for Visit * Reason Comments Medication Refill Encounter Details Date Type Department Care Team (Latest Contact Info) Description 05/28/2023 7:20 AM INSPECTOR TYPE Procedure visit [facility] at Work [employer] [place] [address] [place] [phone] Encounter for issue of repeat prescription (Primary [...] Progress Notes * Henrietta Andrade, RN - 05/28/2023 7:13 AM CST Escitalopram 10mg QD #90. No refills. ECTOR TYPE documented in this encounter Plan of Treatment Upcoming Encounters Date Type Department Care Team (Late st Contact Info) Description 06/20/2024 9:30 AM INSPECTOR TYPE Office Visit [facility] Orthopedic Surgery at the [facility] [address] [place] [address] [place] [address] [place] [address] 10/27/2024 2:45 PM CDT Office Visit [facility] Gastroenterology [facility] [address] [facility] [address] [place] [address] Bebo Benites MD [address] [facility] [address] [place] [address] documented as of this encounter Visit Diagnoses Diagnosis Encounter for issue of repeat prescription- Primary Issue of repeat prescriptions documented in this encounter Additional Health Concerns Assessment Noted Time PHQ-9 Depression Total Score: 3 07/04/19 23 9:00 AM INSPECTOR TYPE documented as of this encounter Care Teams Pulp Grinder Feeder Relationship Specialty Start Date End Date Elma Magaña MD [address] [place] [phone] PCP - General Family Practice 12/09/21 12/13/23 documented as of this encounter
--- OUTSIDE RECORDS SUMMARY | 2024-06-08 20:19 | XMS_ITS | Encounter Summary ---
Author Organization [facility] Address [address] [place] [address] Care Team Providers Care Assessment Consultant Name Role Phone Elma Magaña MD Primary Care Provider [phone] Reason for Visit * Reason Onset Date Comments CoCM Initial Contact 06/18/2023 2nd contact . Scheduled initial assessment for 07/10/23 at 1 PM in office. Encounter Details Date Type Department Care Team (Late st Contact Info) Description 06/18/2023 Telephone [facility] at Work [employer] [place] [address] [place] [phone] Beni Kaur [address] [place] [address] CoCM Initial Contact (2nd contact. Scheduled initial assessment for 07/10/23 at 1 PM in office.) Social History Tobacco Use Types Packs/Day Years [...] * Telephone Encounter - Beni Kaur - 06/18/2023 2:55 PM CST Collaborative Care - Initial Contact Behavioral Health Insole Buffer (BHCM) spoke with Lis to introduce the Collaborative Care program in greater detail, answer any questions and schedule an appointment for their initial assessment. Lis verbalized an accurate understanding that should he/she experience a psychiatric emergency, they are to contact 91 or the National Suicide Prevention Lifeline at 988 (call or text) or . Scheduled an appointment for the initial assessment on 07/10/23 at 1 PM in office. AIN CUTTER documented in this encounter Plan of Treatment Upcoming Encounters Date Type Department Care Team (Late st Contact Info) Description 06/20/2024 9:30 AM CURTAIN CUTTER Office Visit [facility] Orthopedic Surgery at the [facility] [address] [facility] [address] [place] [address] [place] [address] [place] [address] 10/27/2024 2:45 PM CDT Office Visit [facility] Gastroenterology [facility] [address] [facility] [facility] [address] [place] [address] Bebo Benites MD [address] [facility] [address] [place] [phone] documented as of this encounter Visit Diagnoses Diagnosis Recurrent major depression in remission- Primary Major depressive disorder, recurrent episode, in full remission Generalized anxiety disorder documented in this encounter Additional Health Concerns Assessment Noted Time PHQ-9 Depression Total Score: 3 07/04/19 23 9:00 AM CURTAIN CUTTER documented as of this encounter Care Teams Assessment Consultant Relationship Specialty Start Date End Date Elma Magaña MD [address] [place] [address] PCP - General Family Practice 12/09/21 12/13/23 documented as of this encounter
--- OUTSIDE RECORDS SUMMARY | 2024-06-08 20:19 | XMS_ITS | Encounter Summary ---
Author Organization [facility] Address [address] [place] [address] Care Team Providers Care Store Receiving Clerk Name Role Phone Elma Magaña MD Primary Care Provider [phone] Encounter Details Date Type Department Care Team (Late Contact Info) Description 07/08/2022 Orders Only [facility] at Work [employer] [place] [address] [place] [address] Lis Nails FNP NO ADDRESS ON FILE Screening for condition (Primary Dx) Social History Tobacco Use Types [...] (Late Contact Info) Description 06/20/2024 9:30 AM SUPERINTENDENT TRACK Office Visit [facility] Orthopedic Surgery at the [facility] Medicine [address] [facility] [address] [place] [address] [place] [address] [place] [address] 10/27/2024 2:45 PM CDT Office Visit [facility] Gastroenterology [facility] [address] [facility] [address] [place] [address] Bebo Benites MD [address] [facility] [address] [place] [address] documented as of this encounter Results * URINE CULTURE (10/20/2022 3:01 PM CDT) URINE CULTURE SEE NOTE [facility] oneyda Will Comment: ??CULTURE, URINE, ROUTINE ?Micro Number: ?[id number] ??Test Status: ? Final ??Specimen Source: ?? Urine, clean catch ??Specimen Quality: ??Adequate ??Result: ?No Growth Test Performed at: [place] [address] [place] ??[address] Molina Briseno Urine URINE SPECIMEN OBTAINED BY CLEAN CATCH PROCEDURE / Unknown 10/20/2022 3:01 PM CDT 10/21/2022 2:59 AM CDT Lis GONSALESP MICROBIOLOGY - GENERAL ORDERABLES [facility] [phone] [place] [address] [place] [address] documented in this encounter Visit Diagnoses Diagnosis Screening for condition- Primary Screening for unspecified condition documented in this encounter Additional Health Concerns Assessment Noted Time PHQ-9 Depression Total Score: 3 07/04/19 23 9:00 AM SUPERINTENDENT TRACK documented as of this encounter Care Teams Store Receiving Clerk Relationship Specialty Start Date End Date Elma Magaña MD [address] [place] [address] PCP - General Family Practice 12/09/21 12/13/23 documented as of this encounter
--- OUTSIDE RECORDS SUMMARY | 2024-06-08 20:19 | XMS_ITS | Encounter Summary ---
Author Organization [facility] Address [address] [place] [address] Care Team Providers Care Sr. Manager Marketing Name Role Phone Elma Magaña MD Primary Care Provider [phone] Reason for Visit * Reason Onset Date Comments CoCM Initial Contact 06/01/2023 1st contact to schedule initial assessment. Left message. Encounter Details Date Type Department Care Team ([facility] Contact Info) Description 06/01/2023 Telephone [facility] at [employer] [place] [address] [place] [phone] Beni Kaur [address] [place] [address] CoCM Initial Contact (1st contact to schedule initial assessment. Left message.) Social History Tobacco Use Types Packs/Day Years [...] Upcoming Encounters Date Type Department Care Team ([facility] Contact Info) Description 06/20/2024 9:30 AM TESTER OPERATOR HELPER Office Visit [facility] Orthopedic Surgery at the [facility] Medicine [address] [facility] [address] [place] [address] [place] [address] [place] [address] 10/27/2024 2:45 PM CDT Office Visit [facility]ology [facility] [address] [facility] [address] [place] [address] Bebo Benites MD [address] [facility] [address] [place] [address] documented as of this encounter Visit Diagnoses Not on filedocumented in this encounter Additional Health Concerns Assessment Noted Time PHQ-9 Depression Total Score: 3 07/04/19 23 9:00 AM TESTER OPERATOR HELPER documented as of this encounter Care Teams Sr. Manager Marketing Relationship Specialty Start Date End Date Elma Magaña MD [address] [place] [address] PCP - General Family Practice 12/09/21 12/13/23 documented as of this encounter
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
--- OUTSIDE RECORDS SUMMARY | 2024-06-08 20:19 | XMS_ITS | Encounter Summary ---
Author Organization [facility] Address [address] [place] [address] Care Team Providers Care Livestock Yard Supervisor Name Role Phone Bijal Wolfe MD Primary Care Provider [phone] Encounter Details Date Type Department Care Team (Late Contact Info) Description 03/08/2024 Abstract [facility] Private Practice [address] [place] [address] Provider, Abstract NO ADDRESS ON FILE Social [...] (Late Contact Info) Description 06/20/2024 9:30 AM DESIGN ENGINEER Office Visit [facility] Orthopedic Surgery at the [facility] [address] [facility] [address] [place] [address] [place] [address] [place] [address] 10/27/2024 2:45 PM CDT Office Visit [facility] Gastroenterology [facility] [address] [facility] [address] [place] [address] Bebo Benites MD [address] [facility] [address] [place] [address] documented as of this encounter Visit Diagnoses Not on filedocumented in this encounter Additional Health Concerns Assessment Noted Time PHQ-9 Depression Total Score: 4 08/21/19 24 1:00 PM DESIGN ENGINEER documented as of this encounter Care Teams Livestock Yard Supervisor Relationship Specialty Start Date End Date Bijal Wolfe MD [address] [place] [address] PCP - General Internal Medicine 12/14/23 documented as of this encounter
--- OUTSIDE RECORDS SUMMARY | 2024-06-08 20:19 | XMS_ITS | Encounter Summary ---
Author Organization [facility] Address [address] [place] [address] Care Team Providers Care Bsa/Aml Compliance Officer Name Role Phone Elma Magaña MD Primary Care Provider [phone] Encounter Details Date Type Department Care Team (Late st Contact Info) Description 10/20/2023 External Device Data [facility] ABSTRACTION Provider, Abstract [...] Contact Info) Description 06/20/2024 9:30 AM MANAGER OFFICE SERVICES [facility] at the [facility] Medicine [address] [facility] [address] [place] [address] [place] [address] [place] [address] 10/27/2024 2:45 PM CDT Office Visit [facility] Gastroenterology [facility] [address] [facility] [address] [place] [address] Bebo Benites MD [address] [phone] documented as of this encounter Visit Diagnoses Not on filedocumented in this encounter Additional Health Concerns Assessment Noted Time PHQ-9 Depression Total Score: 4 08/21/19 24 1:00 PM MANAGER OFFICE SERVICES documented as of this encounter Care Teams Bsa/Aml Compliance Officer Relationship Specialty Start Date End Date Elma Magaña MD [address] [place] [phone] PCP - General Family Practice 12/09/21 12/13/23 documented as of this encounter
--- OUTSIDE RECORDS SUMMARY | 2024-06-08 20:19 | XMS_ITS | Encounter Summary ---
Author Organization [facility] Address [address] [place] [address] Care Team Providers Care Project Manager Industrial Name Role Phone Elma Magaña MD Primary Care Provider [phone] Reason for Visit * Reason Onset Date Comments Medication Refill 08/18/2022 Encounter Details Date Type Department Care Team (Late st Contact Info) Description 08/18/2022 Refill [facility] at [facility] [employer] [place] [address] [place] [phone] Elma Magaña MD [address] [place] [phone] Social History Tobacco Use Types Packs/Day [...] * Telephone Encounter - Kim Gibbons - 08/18/2022 10:03 AM CST Per Tobycy lab review- Seen by patient Lis Phelan on 07/22/2022 10:35 AM OLOGIC TECHNOLOGIST MAMMOGRAM * Telephone Encounter - Elma Magaña MD - 08/18/2022 9:41 AM CST Please inform patient of Lis's recommendations from last labs... > Your lipid panel is elevated. This [...] recommend coming back in for urine culture. OLOGIC TECHNOLOGIST MAMMOGRAM * Telephone Encounter - Kim Gibbons - 08/18/2022 9:34 AM CST Last refilled: 03/03/2022 Quantity given: 90 Number of refills: 0 Last appointment: 07/04/2022 Next appointment: - OLOGIC TECHNOLOGIST MAMMOGRAM documented in this encounter Plan of Treatment Upcoming Encounters Date Type Department Care Team (Late st Contact Info) Description 06/20/2024 9:30 AM RADIOLOGIC TECHNOLOGIST MAMMOGRAM Office Visit [facility] Orthopedic Surgery at the [facility] Medicine [address] [facility] [address] [place] [address] [place] [address] [place] [address] 10/27/2024 2:45 PM CDT Office Visit [facility] Gastroenterology [facility] [address] [facility] [address] [place] [address] Bebo Benites MD [address] [address] documented as of this encounter Visit Diagnoses Not on filedocumented in this encounter Additional Health Concerns Assessment Noted Time PHQ-9 Depression Total Score: 3 07/04/19 23 9:00 AM RADIOLOGIC TECHNOLOGIST MAMMOGRAM documented as of this encounter Care Teams Project Manager Industrial Relationship Specialty Start Date End Date Elma Magaañ MD [address] [place] [phone] PCP - General Family Practice 12/09/21 12/13/23 documented as of this encounter
--- OUTSIDE RECORDS SUMMARY | 2024-06-08 20:19 | XMS_ITS | Encounter Summary ---
Author Organization [facility] Address [address] [place] [address] Care Team Providers Care Sprayer Machine Name Role Phone Elma Magaña MD Primary Care Provider [phone] Encounter Details Date Type Department Care Team (Late st Contact Info) Description 09/18/2023 Chart Note [facility] at [facility] [employer] [place] [address] [place] [address] Beni Kaur [address] [place] [address] Social History Tobacco Use Types [...] encounter Progress Notes * Beni Kaur - 09/18/2023 10:27 AM CDT [facility] Psychiatric Staffing Consult and Review The consulting psychiatrist and behavioral health care managers met on 09/18/2023 for Lis. The [facility] team discussed Lis diagnosis, goals, progress being made, additional treatment options and any current issues. documented in this encounter Plan of Treatment Upcoming Encounters Date Type Department Care Team (Late st Contact Info) Description 06/20/2024 9:30 AM COUNTY AGENT Office Visit [facility] Orthopedic Surgery at the [facility] [address] [facility] [address] [place] [phone] [place] [address] [place] [address] 10/27/2024 2:45 PM CDT Office Visit [facility] Gastroenterology [facility] [address] [facility] [address] [place] [address] Bebo Benites MD [address] [facility] [address] [place] [address] documented as of this encounter Visit Diagnoses Not on filedocumented in this encounter Additional Health Concerns Assessment Noted Time PHQ-9 Depression Total Score: 4 08/21/19 24 1:00 PM COUNTY AGENT documented as of this encounter Care Teams Sprayer Machine Relationship Specialty Start Date End Date Elma Magaña MD [address] [place] [phone] PCP - General Family Practice 12/09/21 12/13/23 documented as of this encounter
--- OUTSIDE RECORDS SUMMARY | 2024-06-08 20:19 | XMS_ITS | Encounter Summary ---
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 [facility] at the [facility] [address] [facility] [address] [place] [address] [place] [address] [place] [phone] 10/27/2024 2:45 PM CDT Office Visit [facility] [address] [place] [address] Bebo Benites MD [address] [place] [address] documented as of this encounter Visit Diagnoses Not on filedocumented in this encounter Additional Health Concerns Assessment Noted Time PHQ-9 Depression Total Score: 4 11/30/19 22 2:00 PM CDT documented as of this encounter Care Teams Wedger And Gluer Relationship Specialty Start Date End Date Elma Magaña MD [address] [place] [phone] PCP - General Family Practice 12/09/21 12/13/23 documented as of this encounter
--- OUTSIDE RECORDS SUMMARY | 2024-06-08 20:20 | XMS_ITS | Encounter Summary ---
Author Organization [facility] Address [address] [place] [address] Care Team Providers Care Tobacco Educator Name Role Phone Elma Magaña MD Primary Care Provider [phone] Reason for Visit * Auth/Cert Specialty Diagnoses / Procedures Referred By Contact Referred To Contact Perioperative Diagnoses Change in bowel habit Eosinophilic esophagitis Gastroschisis Procedures IN ESOPHAGOGASTRODUODENOSCOPY TRANSORAL DIAGNOSTIC IN COLONOSCOPY FLX DX W/COLLJ SPEC WHEN PFRMD checkout ESOPHAGOGASTRODUODENOSCOPY checkout COLONOSCOPY [facility] Lab [address] [facility] [place] [address] Referral ID Status Reason Start Date Expiration Date Visits Re quested Visits Authorized [id number] 1 1 Encounter Details Date Type Department Care Team (Late st Contact Info) Description 02/10/2022 2:51 PM CDT Anesthesia Event [facility] GI [facility] [place] [address] [place] [address] Marylin Kemp MD [address] [place] [address] Adolfo Boyer AA-C [address] [place] [address] Anesthesia Record Procedure Summary Procedure Name Responsible Anesthesiologist Anesthesia Start Time Anesthesia Stop Time checkout ESOPHAGOGASTRODUODENOSCOPY (Mouth) Marylin Kemp MD 02/10/22 1451 02/10/22 1529 Events Date Time Event Comment 02/10/2022 1430 1450 In Room This event disp lays the In Room time documented in the Surgical Log. Deleting this event will not remove it from the log but will remove it from the Grid and Graph timeline. 1451 An Start 1451 An Start Data 1454 Pre-Induction Immediate pre- induction anesthetic assessment performed. Vital signs as noted on graphic. 1454 An Induction 1456 Procedure Start This event d isplays the Procedure Start time documented in the Surgical Log. Deleting this event will not remove it from the log but will remove it from the Grid and Graph timeline. 1456 Anesthesia Ready 1523 Procedure Stop This event di splays the Procedure Stop time documented in the Surgical Log. Deleting this event will not remove it from the log but will remove it from the Grid and Graph timeline. 1524 an stop data 1525 Out of Room This event disp lays the Out of Room time documented in the Surgical Log. Deleting this event will not remove it from the log but will remove it from the Grid and Graph timeline. 1529 An Stop Meds Name Total propofol (DIPRIVAN) 10??mg/mL injection 630 mg ketamine (KETALAR) 10??mg/mL injection 1 0 mg ondansetron (ZOFRAN) 4??mg/2 mL injectio n 4 mg lactated ringers infusion 300 mL * Agents Name O2 Inspired O2 N2O Inspired N2O * Blood No blood administrations on file. Lines, Drains, and Airways Type Details Placement Removal Wound 06/11/21; 0914; No; 1; Right; hand; surgical 06/11/21 09 by Kary Jc RN Peripheral IV Pre-Hospital Start: No; Orientation: Anterior, Left; Location: AC; Device: Angiocath; Gauge: 20 gauge; Needle Length: 1.16 in length; Insertion Attempts: 3 (Dr. Kemp used ultrasound to access it); Patient Tolerance: tolerated well 02/10/22 1446 by Gurmeet Strauss RN 02/10/22 1540 by Uziel Michel RN documented in this encounter Social History Tobacco [...] suspected to have Coronavirus/COVID-19? No / Unsure 02/10/2022 1:31 PM CDT documented as of this encounter OR Notes * Anesthesia Postprocedure Evaluation - Marylin Kemp MD - 02/10/2022 3:32 PM CDT Post Anesthesia Evaluation Vitals: Vitals Value Taken Time BP 115/73 02/10/228 Temp 36.2 ??C 02/10/221537 Resp 16 02/10/221537 SpO2 98 % 02/10/221537 Pulse 82 02/10/221537 Heart Rate Pain Rating: Anesthesia Post Evaluation Patient location during evaluation: PACU Patient participation: patient was able to participate in the post op evaluation Level of consciousness: 0 = alert, responsive, answers simple questions appropriately, able to perform simple tasks Pain management: adequate Airway patency: patent Nausea or Vomiting: none Cardiovascular status: regular rate and rhythm Respiratory status: no respiratory symptoms Hydration status: well hydrated No notable events documented. SERJIO Chavez Phase II Postanesthesia Evaluation Including [facility] Modified Randi Score Patient seen and evaluated: yes [facility] Modified Randi Score: Score: 20 (02/10/221538) COMMENTS: No apparent Anesthesia related complications RESPIRATORY FUNCTION: Respiration: able to breath and cough freely (02/10/221538) [2=able to breathe and cough freely, 1=dyspnea, limited breathing or tachypnea, 0=apnea or mechanicventilator] O2 Saturation: able to maintain O2 saturation greater than 92% on room air (02/10/221538) [2=able to maintain O2 saturation greater than 92% on room air, 1=needs O2 inhalation to maintain O2 saturation greater than 90%, 0=O2 saturation less than 90% even with O2 supplement] Resp: 16 (02/10/221537)SpO2: 98 % (02/10/221537) CARDIOVASCULAR FUNCTION: BP: 115/73 (02/10/221537) Circulation: BP within 20% of preanesthetic level (02/10/221538) [2=BP within 20% of preanesthetic level, 1=BP within 20-49% of preanesthetic level, 0=BP within 50%of preanesthetic level] MENTAL STATUS, NEURO, ACTIVITY: PATIENT PARTICIPATION IN EVALUATIONyes Consciousness: fully awake (02/10/221538) [2=fully awake, 1=arousable on calling, 0=not responding] Activity: able to move 4 extremities voluntarily or on command (02/10/221538) [2=able to move 4 extremities voluntarily or on command, 1=able to move 2 extremities voluntarily or on command, 0=unable to move extremities voluntarily or on command] Ambulation: able to stand up and walk straight, on ordered bedrest, or performing at patient's prior level of function (02/10/221538) [2=able to stand up and walk straight, on ordered bedrest, or performing at patient's prior level of function, 1=vertigo when erect, 0=dizziness when supine] TEMPERATURE: Temp: 36.2 ??C (02/10/221537) PAIN: Pain: pain free (02/10/221538) [2=pain free, 1=pain handled by oral medication, 0=pain requiring parenteral medication] NAUSEA AND VOMITING: no nausea and no vomiting Fasting/Feeding: able to drink fluids, ice chips or NPO (02/10/221538) [2=able to drink fluids, ice chips or NPO, 1=nauseated, 0=nausea and vomiting] POSTOPERATIVE HYDRATION: well hydrated Intake/Output Summary (Last 24 hours) at 02/10/2022 1544 Last data filed at 02/10/2022 1540 Gross per 24 hour Intake 640 ml Output -- Net 640 ml Urine Output: has voided, adequate urine output per device, or not applicable (02/10/221538) [2=has voided, adequate urine output per device, or not applicable, 1=unable to void but comfortable, 0=unable to void and uncomfortable] WOUND: Dressing: dry and clean or not applicable (02/10/221538) [2=dry and clean or not applicable, 1=wet, marked and not increasing, 0=growing area of wetness] Marylin Kemp MD 02/10/2022 3:44 PM * Anesthesia Handoff - Adolfo Boyer AA-C - 02/10/2022 3:29 PM CDT Post-Anesthetic transfer of care report elements to appropriate post-anesthesia recovery environment completed in accordance with procedure. I completed my handoff to the receiving nurse during which we: 1. Identified the patient 2. Identified the responsible provider 3. Reviewed the pertinent medical history 4. Discussed the surgical course 5. Reviewed intra-op anesthesia management and issues during anesthesia 6. Set expectations for post-procedure period 7. Orders as necessary and appropriate for continuation of care are present in Epic. 8. Allowed opportunity for questions and acknowledgement of understanding. Vital Signs: BP: 130/81 (02/10/2022 1:58 PM) Pulse: 84 (02/10/2022 1:58 PM) Temp: 36.4 ??C (02/10/2022 1:58 PM) Resp: 16 (02/10/2022 1:58 PM) SpO2: 96 % (02/10/2022 1:58 PM) 3:31 PM SERJIO Chavez * Anesthesia Preprocedure Evaluation - Marylin Kemp MD - 02/10/2022 2:30 PM CDT Relevant Problems CARDIOVASCULAR (+) HTN (hypertension), benign ENDOCRINE (+) Type 2 diabetes mellitus without complication, without long-term current use of insulin GI (+) GERD (gastroesophageal reflux disease) Neuro/Psych (+) History of gastroschisis PULMONARY (+) Mild intermittent asthma without complication Anesthesia Evaluation Patient summary reviewed and Nursing notes reviewed Airway Mallampati: III TM distance: >3 FB Neck ROM: full Dental (+) caps Pulmonary - normal exam breath sounds clear to auscultation (+) asthma, ROS comment: Former smoker, quit 02/2016, 10 pk yrs. Cardiovascular - normal exam Exercise tolerance: good (+) hypertension well controlled, Rhythm: regular Rate: normal Neuro/Psych (+) headaches, psychiatric history GI/Hepatic/Renal (+) GERD well controlled, bowel prep Endo/Other (+) diabetes mellitus type 2 well controlled, arthritis Abdominal (+) obese, Anesthesia History No history of anesthetic complications. Anesthesia Plan ASA Final: 3 MAC Intravenous induction NPO status: >2 hours clears, >8 hours solids. Anesthetic plan and risks discussed with Patient. Plan discussed with Anesthesiologist Bow Maker Production. Post-op Pain Control Plan to use IV or IM medication for post-op pain control. 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 Medicine [address] [address] [address] [place] [phone] [place] [address] [place] [address] 10/27/2024 2:45 PM CDT Office Visit [facility] Gastroenterology [facility] [address] [facility] [address] [place] [address] Bebo Benites MD [address] [facility] [facility] [address] [place] [address] documented as of this encounter Visit Diagnoses Not on filedocumented in this encounter Administered Medications Inactive Administered Medications - up to 3 most recent administrations Medication Order MAR Action Action Date Dose Rate Site ketamine 10 mg/mL injection IV, INTRA-PROCEDURE PRN, Starting on Thu02/10/22 at 1501, Until Thu02/10/22 at 1531, Routine, Anesthesia Intra-op Given 02/10/2022 3:01 PM CDT 10 mg lactated ringers infusion IV, at 125 mL/hr, PRE-PROCEDURE CONTINUOUS, Starting on Thu02/10/22 at 1400, Until Thu02/10/22 at 1804, Routine, Pre-Procedure Continue from Pre-Op 02/10/2022 2:51 PM CDT 125 mL/hr New Bag 02/10/2022 2:47 PM CDT 125 mL/hr ondansetron (ZOFRAN) 4 mg/2 mL injection IV, INTRA-PROCEDURE PRN, Starting on Thu02/10/22 at 1529, Until Thu02/10/22 at 1538, Routine, Anesthesia Intra-op Given 02/10/2022 3:29 PM CDT 4 mg propofoL (DIPRIVAN) injection IV, INTRA-PROCEDURE PRN, Starting on Thu02/10/22 at 1502, Until Thu02/10/22 at 1531, Anesthesia Intra-op Given 02/10/2022 3:20 PM CDT 50 mg Given 02/10/2022 3:17 PM CDT 30 mg Given 02/10/2022 3:14 PM CDT 30 mg documented in this encounter Additional Health Concerns Assessment Noted Time PHQ-9 Depression Total Score: 4 11/30/19 2:00 PM CDT documented as of this encounter Care Teams Tobacco Educator Relationship Specialty Start Date End Date Elma Magaña MD [address] [place] [address] PCP - General Family Practice 12/09/21 12/13/23 documented as of this encounter
--- OUTSIDE RECORDS SUMMARY | 2024-06-08 20:20 | XMS_ITS | Encounter Summary ---
Author Organization [facility] Address [address] [place] [address] Care Team Providers Care Strapping Machine Tender Name Role Phone Elma Magaña MD Primary Care Provider Reason for Visit * Auth/Cert Specialty Diagnoses / Procedures Referred By Contact Referred To Contact Perioperative Diagnoses Change in bowel habit Eosinophilic esophagitis Gastroschisis Procedures ND ESOPHAGOGASTRODUODENOSCOPY TRANSORAL DIAGNOSTIC ND COLONOSCOPY FLX DX W/COLLJ SPEC WHEN PFRMD checkout ESOPHAGOGASTRODUODENOSCOPY checkout COLONOSCOPY [facility] [address] [place] [address] Referral ID Status Reason Start Date Expiration Date Visits Re quested Visits Authorized [id number] 1 1 Encounter Details Date Type Department Care Team (Latest Contact Info) Description 02/10/2022 1:31 PM CDT - 02/10/2022 4:04 PM T Hospital Encounter [facility] [address] [place] [facility] [address] [place] [address] Bebo Benites MD [address] [facility] [address] [place] [address] Change in bowel habit Discharge Disposition: Home or Self Care Social [...] PM CDT documented as of this encounter Last Filed Vital Signs Vital Sign Reading Time Taken Comments Blood Pressure 116/70 02/10/2022 3:51 PM CDT Pulse 80 02/10/2022 3:51 PM CDT Temperature 36.2 ??C (97.2 ??F) 02/10/2022 3:38 PM CD T Respiratory Rate 18 02/10/2022 3:51 PM CDT Oxygen Saturation 97% 02/10/2022 3:51 PM CDT Inhaled Oxygen Concentration - - Weight 105.7 kg (233 lb) 02/10/2022 1:44 PM CDT Height 167.6 cm (5' 6 ) 02/10/2022 1:44 PM CDT Body Mass Index 37.61 02/10/2022 1:44 PM CDT documented in this encounter Discharge Instructions * Discharge Instructions* Uziel Michel RN - 02/10/2022 3:25 PM CDT If you are active on [employer], you will receive the biopsy results as a message via that account. If you do not have [employer] account, you will receive a call from my office regarding your results. If you do not hear from us about your results within a week, please contact our office at [phone] . Avoid aspirin, aleeve, ibuprofen, naproxen, motrin and advil for one week. If you should experience: Severe abdominal pain, chest pain, fever, chills, shortness of breath, inability to swallow, abnormal bleeding or any other concerns following your procedure. Call your physician or come to the Emergency Department. Please follow these instructions: 1. During your procedure you may have received sedation. You should rest at home for the remainder of the day. You should NOT drive or perform any activities that require a completely alert mind during this recovery period. Alcohol should NOT be used for at least 24 hours. 2. Following your colonoscopy you may expect your bowel habits to return to normal in 2-3 days. 3. Following your upper endoscopy, you may have a sore throat. Try gargling with warm water or use Chloraseptic lozenges as needed. Once you are fully alert and feel you can swallow without difficulty, you may have a light meal. You may then progress on to your usual diet, unless otherwise instructed by your physician. 4. This includes your current and historical medications prescribed by your physician (s). Continue your current medications and any newly prescribed during this visit. If you have questions, please call the physician who prescribed the medication. documented in this encounter Medications at Time of Discharge Medication Sig Dispensed Refills Start Date End Date cholecalciferol, vitamin D3, 1,000 unit Take by mouth. cetirizine (ZyrTEC) 10 mg tablet Take 10 mg by mouth daily. semaglutide (Ozempic) 0.25 mg or 0.5 mg(2 mg/1.5 mL) Pen InjectorIndications:T ype 2 diabetes mellitus without complication, without long-term current use of insulin Inject 0.5 mg by subcutaneous injection every 7 days. 1.5 mL 01/31/2022 03/12/2022 sertraline (ZOLOFT) 100 mg tabletIndications:Mod erate episode of recurrent major depressive disorder Take 2 Tablets (200 mg) by mouth daily. 90 Tablet 12/27/2021 03/03/2022 Ashlyna 0.15 mg-30 mcg (84)/10 mcg (7) Tablet, Dose Pack, 3 MonthsIndications:Enc ounter for BCP initial prescription Take 1 tablet by mouth once daily 91 Tablet 12/05/2021 03/12/2022 pantoprazole (PROTONIX) 40 mg Tablet, Delayed Release (E.C.) Take 1 Tablet (40 mg) by mouth daily. 90 Tablet 4 10/23/2021 05/07/2023 metFORMIN (GLUCOPHAGE) 1,000 mg tabletIndications:Typ e 2 diabetes mellitus without complication, without long-term current use of insulin Take 1 Tablet (1,000 mg) by mouth 2 times daily with meals. 180 Tablet 09/13/2021 06/11/2022 buPROPion HCL (WELLBUTRIN SR) 150 mg Sustained Release 12 hour tablet Take 1 Tablet (150 mg) by mouth 2 times daily. 180 Tablet 1 06/07/2021 03/03/2022 albuterol sulfate 90 mcg/Actuation inhalerIndications:Mi ld intermittent asthma without complication Take 1-2 Puffs by inhalation every 4 hours as needed for Shortness of Breath or Wheezing. 6.7 Gram 6 04/16/2021 03/07/2024 rosuvastatin (CRESTOR) 40 mg tablet Take 1 Tablet (40 mg) by mouth daily at bedtime. 90 Tablet 2 04/16/2021 01/14/2023 lisinopriL (PRINIVIL) 10 mg tablet Take 1 Tablet (10 mg) by mouth daily. 90 Tablet 3 12/11/2020 03/03/2022 documented as of this encounter H&P Notes * Bebo Benites MD - 02/10/2022 2:20 PM CDT Endoscopy Outpatient History and Physical This is a 37 y.o. female patient scheduled for Colonoscopy and EGD for the indication as listed under assessment below. Past Medical History: Diagnosis Date Arthritis Asthma well controlled Biliary dyskinesia Change in bowel habit Depression Diabetes mellitus Difficult intravenous access VERY hard IV stick use requests ultrasound Eosinophilic esophagitis Eosinophilic esophagitis GERD (gastroesophageal reflux disease) Headache History of shingles HTN (hypertension), benign 12/29/2020 Hyperlipidemia Past Surgical History: Procedure Laterality Date HX CARPAL TUNNEL RELEASE Right 06/11/2021 RIGHT CARPAL TUNNEL RELEASE performed by Paddy Mackey MD at [facility] CC OR HX GASTROSCHISIS CLOSURE HX HAND SURGERY Right 4th digit HX RHINOPLASTY Bilateral 12/20/2020 HX SURGICAL OTHER 04/2004 adhesion removed HX TURBINATE RESECTION Right 12/20/2020 ND ESOPHAGOGASTRODUODENOSCOPY TRANSORAL DIAGNOSTIC N/A 05/17/2019 ESOPHAGOGASTRODUODENOSCOPY performed by Jena Cerda MD at [facility] GI LAB ND REMOVAL GALLBLADDER N/A 11/03/2019 OPEN CHOLECYSTECTOMY performed by Gabbie Wheeler MD at [facility] OR MAIN Allergies Allergen Reactions Tramadol Hives Varenicline Anaphylaxis Metronidazole Nausea and Vomiting Other reaction(s): Vomiting Meperidine Swelling Medications Prior to Admission Medication Sig Dispense Refill Last Dose cholecalciferol, vitamin D3, 1,000 unit Take by mouth. Past Week semaglutide (Ozempic) 0.25 mg or 0.5 mg(2 mg/1.5 mL) Pen Injector Inject 0.5 mg by subcutaneous injection every 7 days. 1.5 mL 0 Past Week sertraline (ZOLOFT) 100 mg tablet Take 2 Tablets (200 mg) by mouth daily. 90 Tablet 0 Past Week Ashlyna 0.15 mg-30 mcg (84)/10 mcg (7) Tablet, Dose Pack, 3 Months Take 1 tablet by mouth once daily 91 Tablet 0 dicyclomine (BENTYL) 10 mg capsule Take 1 Capsule (10 mg) by mouth 3 times daily. 90 Capsule 6 PastWeek pantoprazole (PROTONIX) 40 mg Tablet, Delayed Release (E.C.) Take 1 Tablet (40 mg) by mouth daily. 90 Tablet 4 Past Week metFORMIN (GLUCOPHAGE) 1,000 mg tablet Take 1 Tablet (1,000 mg) by mouth 2 times daily with meals. 180 Tablet 0 Past Week fenofibrate (LOFIBRA) 160 mg Tablet Take 1 Tablet (160 mg) by mouth daily. 90 Tablet 1 ALPRAZolam (XANAX) 0.25 mg tablet Take 1 Tablet (0.25 mg) by mouth 2 times daily as needed for Anxiety. 15 Tablet 0 Past Week buPROPion HCL (WELLBUTRIN SR) 150 mg Sustained Release 12 hour tablet Take 1 Tablet (150 mg) by mouth 2 times daily. 180 Tablet 1 Past Week rosuvastatin (CRESTOR) 40 mg tablet Take 1 Tablet (40 mg) by mouth daily at bedtime. 90 Tablet 2 Past Week lisinopriL (PRINIVIL) 10 mg tablet Take 1 Tablet (10 mg) by mouth daily. 90 Tablet 3 Past Week cetirizine (ZyrTEC) 10 mg tablet Take 10 mg by mouth daily. Past Week fluticasone propionate (FLONASE) 50 mcg/spray [place], Suspension nasal inhaler Use 2 sprays each nostril twice a day for 7-10 days 16 Gram 0 albuterol sulfate 90 mcg/Actuation inhaler Take 1-2 Puffs by inhalation every 4 hours as needed forShortness of Breath or Wheezing. 6.7 Gram 6 Unknown Physical Exam: General appearance: alert, in no distress Eyes: negative for scleral icterus Lungs: normal respiratory effort Heart: no tachycardia Abdomen: Soft, No tenderness. No masses, liver spleen not palpable. Assessment: 1) Eosinophilic esophagitis 2) Change in bowel habits Plan: Will proceed with the above mentioned procedure as scheduled. I discussed risks, benefits, alternatives and complications of Esophagogastroduodenoscopy includinga possibility of biopsy and dilatation of any stricture if needed in detail with the patient. Risksinformed and discussed included but not limited to risks of conscious sedation, risks of infection, perforation, intraprocedural and post procedural bleeding, adverse drug reaction and aspiration. The patient understood the risks, benefits, alternatives and complications and consented for the procedure. I discussed risks, benefits, alternatives and complications of Colonoscopy including a possibility of biopsy and polypectomy in detail with the patient. Risks informed and discussed included but not limited to risks of conscious sedation, risks of infection, perforation, intraprocedural and post procedural bleeding, adverse drug reaction, missed polyps and aspiration. The patient understood the risks, benefits, alternatives and complications and consented for the procedure. documented in this encounter Procedure Notes * Bebo Benites MD - 02/10/2022 3:29 PM CDTAssociated Order(s): COLONOSCOPY REPORT [facility] Endoscopy Patient Name: Lis Phelan Procedure Date: [...] results. - If you are active on [employer], you will receive the biopsy results as a message via that account. If you do not have [employer] account, you will receive a call from my office regarding your results. If you do not hear from us about your results within a week, please contact our office at [phone] . Bebo Benites MD 02/10/2022 3:29:41 PM This report has been signed electronically. Number of Addenda: [address] [facility]; [place] [address] * Bebo Benites MD - 02/10/2022 3:28 PM CDTAssociated Order(s): UPPER ENDOSCOPY REPORT [facility] Endoscopy Patient Name: Lis Phelan Procedure Date: 02/10/2022 Date of : 1985 Attending MD: Bebo Benites MD Procedure: Upper GI endoscopy Indications: Eosinophilic esophagitis, change in bowel habits Providers: Bebo Benites MD [...] monitoring, and direct observation were performed. The Endoscope was introduced through the mouth, and advanced to the second part of duodenum. The upper GI endoscopy was accomplished without difficulty. The patient tolerated the procedure well. Estimated Blood Loss: Estimated blood loss was minimal. Findings: Mucosal changes including longitudinal furrows were found in the middle third of the esophagus. Biopsies were taken with a cold forceps for histology. The Z-line was irregular. Biopsies were taken with a cold forceps for histology. Diffuse minimal inflammation characterized by erythema was found in the gastric body and in the gastric antrum. Biopsies were taken with a cold forceps for histology. Biopsies were taken with a cold forceps for Helicobacter pylori testing. Normal mucosa was found in the entire duodenum. Biopsies for histology were taken with a cold forceps for evaluation of celiac disease. Impression: - Esophageal mucosal changes suspicious for eosinophilic esophagitis. Biopsied. - Z-line irregular. Biopsied. - Non-erosive gastritis. Biopsied. - Normal mucosa was found in the entire examined duodenum. Biopsied. Recommendation: - Discharge patient to home. - Continue present medications. - Await pathology results. - If you are active on [employer], you will receive the biopsy results as a message via that account. If you do not have [employer] account, you will receive a call from my office regarding your results. If you do not hear from us about your results within a week, please contact our office at [phone] . Bebo Benites MD 02/10/2022 3:28:04 PM This report has been signed electronically. Number of Addenda: [address]; [place] [address] documented in this encounter OR Notes * Mi-OP - Lara Ugarte RN - 02/10/2022 1:48 PM CDT Patient/Family discussion included an explanation that: Standard practice for endoscopists at [facility] includes use of an oral bite block to facilitate upper endoscopy and to prevent you from biting onto the scope or yourself during the procedure.This bite block is placed by a [facility] procedure room nurse/planetarium technician prior to the procedure. Pressure that you place on this bite block during the procedure may cause damage to teeth, fillings, and/or dental appliances that may be due to pre-existing dental disease or the age/wear of your dental appliance or structural weakness of teeth or a dental appliance; that may be a known or unknown condition. Should you experience new dental symptoms or a dental complication, if you choose, an effort will be made to facilitate a same day or prompt dental evaluation by [facility] Dental Medicine. * Mi-OP - Fabiola Gibbons RN - 01/20/2022 2:32 PM CDT Routine Pre-Anesthesia Protocol for GI Lab Procedures [facility] Approved by: [facility] - Medical Executive Committee Approval Date: 09/05/2021 ORDERS ARE ENTERED ???PER PROTOCOL?? Enter the protocol in the patient???s electronic health record using [employer]: .anestprotocolgilab Nursing Orders: Monitoring ??? Obtain and record vital signs on admission to [facility] ??? Continuous vital signs (Non-invasive blood pressure, pulse oximetry and cardiac monitoring) for: o All inpatients o All patients currently taking beta-blockers o Patients diagnosed with/or at risk for sleep apnea (e.g., STOP-BANG greater than or equal to 3) Glycemic Control ??? POC glucose for diabetics ??? Notify provider for any POC glucose or serum glucose less than 70 mg/dL. If POC Glucose resultsare critical, do not delay treatment. If appropriate, may confirm POC with: Nursing Only [id number] (this lab can be obtained at no cost to the patient when confirming a critical high or Critical low POC glucose. See hypoglycemia protocol for additional orders if needed: STL ANES Adult Perianesthesia HYPOglycemia Protocol ??? Notify any provider for any POC glucose or serum glucose greater than 180 mg/dL. ??? When receiving report on an inpatient, confirm if patient is receiving dextrose containing fluids to prevent hypoglycemia. Communicate with the anesthesiologist and request glucose containing fluids be continued or added to intraoperative/intraprocedure fluids. ??? POC glucose within 30 minutes of discharge or transfer to another unit (the time-based intra-procedure POC check may be deferred during short procedures at the discretion of the provider. Laboratory Orders: ??? POC Urine Test (POC7) (if unable to obtain urine, may obtain serum [id number]) All patients with potential for childbearing (menarche to menopause) Medication Orders: Intravenous Line ??? Place #20 gauge IV in non-dominant, non-operative or not otherwise excluded upper extremity unless otherwise ordered by anesthesiologist. ??? Contact responsible anesthesiologist if recommending use of a #22 gauge IV ??? For patients with difficult IV access notify anesthesiologist. ??? For patients with difficult IV access and an implanted infusion port, access the port in accordance with nursing policies. ??? Local Anesthetic to use to initiate IV line: Lidocaine 2% 0.3mL intradermal ONE TIME to numb area of IV catheter insertion PRN. ??? IV Fluid- Adult patients (age 18 years or greater): o Lactated ringer's solution to infuse at 125mL/hr, may discontinue upon discharge from procedure area o If patient is found to have a serum creatinine >2 or history of renal failure, RN may change to NS at 10ml/hr documented in this encounter Miscellaneous Notes * Result Encounter Note - Bebo Benites MD - 02/15/2022 2:12 PM CDT Message sent to patient via [employer]: Your recent upper endoscopy biopsy results are consistent with acid reflux disease. Recommend continuing current medications. Colonoscopy biopsy results showed tubular adenomatous polyp. Most of these polyps do not develop into cancer, although they have the potential to become cancerous. Your polyps have been removed completely to prevent cancer. Recommend surveillance Colonoscopy in 5 years. documented in this encounter Plan of Treatment Upcoming Encounters Date Type Department Care Team (Late st Contact Info) Description 06/20/2024 9:30 AM MANAGER FLEET Office Visit [facility] Orthopedic Surgery at the [facility] [address] [place] [id number] [place] [address] [place] [address] 10/27/2024 2:45 PM CDT Office Visit [facility] Gastroenterology [address] [facility] [address] [place] [address] Bebo Benites MD [address] [facility] [address] [place] [address] documented as of this encounter Procedures Procedure Name Priority Date/Time Associated Diagnosis Comments POC GLUCOSE Routine 02/10/2022 3:37 PM CDT COLONOSCOPY REPORT 02/10/2022 3:31 PM CDT UPPER ENDOSCOPY REPORT 3:28 PM CDT PATHOLOGY Pathology 02/10/2022 3:07 PM CDT Change in bowel habit Eosinophilic esophagitis Gastroschisis ND COLONOSCOPY FLX DX W/MYRON J SPEC WHEN PFRMD 02/10/2022 2:20 PM CDT Change in bowel habit Eosinophilic esophagitis Gastroschisis ND ESOPHAGOGASTRODUODENOSCOP Y TRANSORAL DIAGNOSTIC 02/10/2022 2:20 PM CDT Change in bowel habit Eosinophilic esophagitis Gastroschisis POC GLUCOSE Routine 02/10/2022 2:01 PM CDT POC , URINE Routine 02/10/2022 1:32 PM CDT documented in this encounter Results * POC GLUCOSE (02/10/2022 3:37 PM CDT) GLUCOSE POC 89 74 - 99 mg/dL 02/10/2022 3:37 PM CDT [facility] SPECIMEN SOURCE, GLUCOSE POC Whole Blood 02/10/2022 3:[address] [facility] Blood, whole 02/10/2022 3:37 PM CDT 02/10/2022 3:56 PM CDT Bebo Benites MD POINT OF CARE TE STING [facility] CLIA# [id number] [address] [address] * COLONOSCOPY REPORT (02/10/2022 3:31 PM CDT) Narrative Procedure Note Bebo Benites MD - 02/10/2022 3:29 PM CDT [facility] Endoscopy Patient Name: Lis Phelan Procedure Date: [...] results. - If you are active on [employer], you will receive the biopsy results as a message via that account. If you do not have [employer] account, you will receive a call from my office regarding your results. If you do not hear from us about your results within a week, please contact our office at [phone] . Bebo Benites MD 02/10/2022 3:29:41 PM This report has been signed electronically. Number of Addenda: [address]; [place] [address] Bebo Benites MD GI PROCEDURE ORD ERABLES * UPPER ENDOSCOPY REPORT (02/10/2022 3:28 PM CDT) Narrative Procedure Note Bebo Benites MD - 02/10/2022 3:28 PM CDT [facility] Endoscopy Patient Name: Lis Phelan Procedure Date: 02/10/2022 Date of : 1985 Attending MD: Bebo Benites MD Procedure: Upper GI endoscopy Indications: Eosinophilic esophagitis, change in bowel habits Providers: Bebo Benites MD [...] monitoring, and direct observation were performed. The Endoscope was introduced through the mouth, and advanced to the second part of duodenum. The upper GI endoscopy was accomplished without difficulty. The patient tolerated the procedure well. Estimated Blood Loss: Estimated blood loss was minimal. Findings: Mucosal changes including longitudinal furrows were found in the middle third of the esophagus. Biopsies were taken with a cold forceps for histology. The Z-line was irregular. Biopsies were taken with a cold forceps for histology. Diffuse minimal inflammation characterized by erythema was found in the gastric body and in the gastric antrum. Biopsies were taken with a cold forceps for histology. Biopsies were taken with a cold forceps for Helicobacter pylori testing. Normal mucosa was found in the entire duodenum. Biopsies for histology were taken with a cold forceps for evaluation of celiac disease. Impression: - Esophageal mucosal changes suspicious for eosinophilic esophagitis. Biopsied. - Z-line irregular. Biopsied. - Non-erosive gastritis. Biopsied. - Normal mucosa was found in the entire examined duodenum. Biopsied. Recommendation: - Discharge patient to home. - Continue present medications. - Await pathology results. - If you are active on [email or web address], you will receive the biopsy results as a message via that account. If you do not have [email or web address] account, you will receive a call from my office regarding your results. If you do not hear from us about your results within a week, please contact our office at [phone] . Bebo Benites MD 02/10/2022 3:28:04 PM This report has been signed electronically. Number of Addenda: [address]; [place] [address] Bebo Benites MD GI PROCEDURE ORD ERABLES * PATHOLOGY (02/10/2022 3:07 PM CDT) CASE REPORT Surgical Pathology R eport ? Case: [id number] ? Authorizing Provider: ??Bebo Benites, ??Collected: ? 02/10/2022 03:07 PM ? Ordering Location: ? [facility] [place] ??Received: ?02/11/2022 09:01 AM ? Pathologist: ? Nader, Josiah R, DO ? Specimens: ?? A) - Small Intestine, ??bx ? B) - Stomach, bx ? C) - Esophagus, mid, bx ? D) - GE junction, bx ? E) - Colon, transverse, polyp ? F) - Colon, bx random ? 2 5:11 PM [facility] FINAL DIAGNOSIS Small bowel, duodenum, endoscopic biopsy: - No significant histopathologic abnormality. Stomach, endoscopic biopsy: - No significant histopathologic abnormality. - No H. pylori identified on H&E stained slides. Esophagus, mid, endoscopic biopsy: - No significant histopathologic abnormality. Esophagus, GE junction, endoscopic biopsy: - Mild acute and chronic inflammation with reactive changes. - No intestinal metaplasia or dysplasia identified. Large bowel, transverse colon polyp, polypectomy: - Tubular adenoma. Large bowel, colon, random endoscopic biopsy: - No significant histopathologic abnormality. 2 5:11 PM [facility] [employer] [facility] S DESCRIPTION The specimens are received in six containers each labeled Lis Phelan . Received in the first container additionally labeled small intestine biopsy are 4 pieces of arrieta tissue each measuring 0.2 cm in greatest dimension. All are submitted in cassette A1. Received in the second container additionally labeled stomach biopsy are 3 pieces of arrieta tissue each measuring 0.3 cm in greatest dimension. All are submitted in cassette B1. Received in the third container additionally labeled mid esophagus biopsy are 3 pieces of white-arrieta semitranslucent tissue ranging from 0.2 to 0.3 cm in greatest dimension. All are submitted in cassette C1. Received in the fourth container additionally labeled GE junction biopsy are 2 pieces of arrieta tissue each measuring 0.2 cm in greatest dimension. All are submitted in cassette D1. Received in the fifth container additionally labeled transverse colon polyp is 1 piece of arritea tissue measuring 0.4 x 0.3 x 0.2 cm. It is entirely submitted in cassette E1. Received in the sixth container additionally labeled colon biopsy random are multiple (greater than 10) fragments of arrieta tissue ranging from 0.1 to 0.3 cm in greatest dimension. All are submitted in cassette F1. [facility] 2 5:11 PM [facility] MICROSCOPIC DESCRIPTION The slides are labeled [id number] and Lis Phelan. Sections of the small intestine biopsy show fragments of relatively unremarkable small bowel mucosa with mostly villi. There is no significant increase in the number of intraepithelial lymphocytes. No significant acute or chronic inflammation is identified. No ulcers, erosions, or granulomas are seen. Sections of the stomach biopsy show superficial fragments of relatively unremarkable gastric mucosa. There is no significant acute or chronic inflammation. No ulcers, erosions, or granulomas are seen. No H. pylori is identified on routine H&E stained slides. Sections of the midesophagus biopsy show fragments of relatively unremarkable squamous mucosa. There is no significant acute or chronic inflammation. There is no significant increase in the number of intraepithelial eosinophils. Sections of the GE junction biopsy show fragments of squamocolumnar junction mucosa with acute and chronic inflammation and reactive epithelial changes. No intestinal metaplasia or dysplasia is identified. Sections of the transverse colon polyp show a tubular adenoma. No high-grade dysplasia or invasive carcinoma is identified. Sections of the random colon biopsy show fragments of relatively unremarkable colonic mucosa with scattered small lymphoid aggregates. There is no significant acute or chronic inflammation. No ulcers, erosions, or granulomas are seen. No basal lymphoplasmacytic infiltrate is identified. There is no evidence of chronic mucosal injury such as crypt dropout or significant crypt distortion. Neither increased intraepithelial lymphocytes nor thickening of the subepithelial collagen layer is identified. 2 5:11 PM [facility] OPERATIVE PROCEDURE 1: ESOPHAGOGASTRODUODENOSCOP Y 2: COLONOSCOPY 2 5:11 PM [facility] CLINICAL INFORMATION A Small bowel Bx's. Rule out sprue (chronic diarrhea and/or Iron deficiency anemia. Small bowel Bx's. Rule out sprue (chronic diarrhea and/or Iron deficiency anemia. Change in bowel habit [R19.4] Eosinophilic esophagitis [K20.0] Gastroschisis [Q79.3] R19.4-Change in bowel habit K20.0-Eosinophilic esophagitis Q79.3-Gastroschisis 2 5:[address] [facility] COMMENT Special stain, immunohistochemical, and/or in situ hybridization results are interpreted with controls that demonstrate appropriate staining reactions. Note on use of immunohistochemistry reagents and in situ hybridization probes: These tests were developed and their performance characteristics determined by [facility], Department of Laboratory Medicine. It has not been cleared or approved by the U.S. Food and Drug Administration. The FDA has determined that such clearance or approval is not necessary. The test is used for clinical purposes. It should not be regarded as investigational or for research. This laboratory is certified to perform high complexity testing. Frozen section/operating room consultation, gross examination and dissection, and case sign out may have been performed in part or completely in the following laboratories: [facility], [place] #[id number] [address] [place] [address] [facility], [place] #[id number] [address] [place] [address] [facility], [place] #[id number] [address] [place] [address] This report was created with the [employer] voice-activated dictation system. Inherent to this system is the possibility of syntax, grammar, punctuation and other errors that could impact the interpretation of the report. If there are interpretative questions about aspects of this report, please contact the performing pathologist. 2 5:[address] [facility] Tissue (Small Intestine) Collection / Unknown 02/10/2022 3:07 PM CDT 02/11/2022 9:01 AM CDT Comment:Small bowel Bx's. Ru le out sprue (chronic diarrhea and/or Iron deficiency anemia. Tissue specimen (specimen) ENTIRE STOMACH / Unknown 02/10/2022 3:07 PM CDT 02/11/2022 9:01 AM CDT Comment:Gastritis, r/o h.pyl hu Tissue specimen (specimen) (Esophagus, mid) 02/10/2022 3:07 PM CDT 02/11/2022 9:01 AM CDT Comment:Hx of eosinophilic e sophagitis. Tissue specimen (specimen) (GE junction) 02/10/2022 3:07 PM CDT 02/11/2022 9:01 AM CDT Comment:Endoscopic findings c/w Tapia's Esophagus. Bx from this area above GE junction. Is there dysplasia? Tissue specimen (specimen) TRANSVERSE COLON STRUCTURE / Unknown 02/10/2022 3:17 PM CDT 02/11/2022 9:01 AM CDT Comment:Colon Polyp(s). Mikey omatous vs hyperplastic vs other. Tissue specimen (specimen) SPECIMEN FROM COLON / Unknown 02/10/2022 3:17 PM CDT 02/11/2022 9:01 AM CDT Comment:R/o microscopic coli tis Bebo Benites MD PATHOLOGY/CYTOLO GY ORDERABLES [facility]# [id number] [address] [place] [address] * POC GLUCOSE (02/10/2022 2:01 PM CDT) GLUCOSE POC 84 74 - 99 mg/dL 02/10/2022 2:01 PM CDT [facility] SPECIMEN SOURCE, GLUCOSE POC Whole Blood 02/10/2022 2:01 PM CDT [facility] Blood, whole 02/10/2022 2:01 PM CDT 02/10/2022 2:12 PM CDT Bebo Benites MD POINT OF CARE TE STING [facility]# [id number] [address] [place] [address] * POC , URINE (02/10/2022 1:32 PM CDT) HCG QUAL URINE Negative Negative 02/10/2022 1:[address] [facility] Urine 02/10/2022 1:32 PM CDT 02/10/2022 1:35 PM CDT Bebo Benites MD POINT OF CARE TE [facility] Intelligent Mobile Support [facility] CLIA# [id number] [address] [place] [address] documented in this encounter Visit Diagnoses Diagnosis Change in bowel habit Eosinophilic esophagitis Gastroschisis documented in this encounter Administered Medications Inactive Administered Medications - up to 3 most recent administrations Medication Order MAR Action Action Date Dose Rate Site lactated ringers infusion IV, at 125 mL/hr, PRE-PROCEDURE CONTINUOUS, Starting on Thu02/10/22 at 1400, Until Thu02/10/22 at 1804, Routine, Pre-Procedure Continue from Pre-Op 02/10/2022 2:51 PM CDT 125 mL/hr New Bag 02/10/2022 2:47 PM CDT 125 mL/hr documented in this encounter Active and Recently Administered Medications Times are shown in CDT. Continuous Medication Order 02/08/2022 02/09/2022 02/10/2022 lactated ringers infusion IV, at 125 mL/hr, PRE-PROCEDURE CONTINUOUS, Starting on Thu02/10/22 at 1400, Until Thu02/10/22 at 1804, Routine, Pre-Procedure 1447 (New Bag - Prov ider: Gurmeet Strauss RN)1451 (Continue from Pre-Op - Provider: SERJIO Chavez)1529 (Stopped - Provider: SERJIO Chavez) documented in this encounter Additional Health Concerns Assessment Noted Time PHQ-9 Depression Total Score: 4 11/30/19 22 2:00 PM CDT documented as of this encounter Care Teams Strapping Machine Tender Relationship Specialty Start Date End Date Elma Magaña MD [address] [place] [phone] PCP - General Family Practice 12/09/21 12/13/23 documented as of this encounter
--- OUTSIDE RECORDS SUMMARY | 2024-06-08 20:20 | XMS_ITS | Encounter Summary ---
Author Organization [facility] [place] Address [address] [place] [address] Care Team Providers Care Research Manufacturing Operator Name Role Phone Francis Pereyra MD Primary Care Provider Unava ilable Reason for Visit * Reason Comments Medication Refill Encounter Details Date Type Department Care Team (Late st Contact Info) Description 12/05/2021 Refill [facility] at Work [employer] [place] [address] [place] [address] Cheyenne Horton, ALLERGY SPECIALIST [address] [address] Encounter for BCP initial prescription Social History [...] suspected to have Coronavirus/COVID-19? 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 [place] [address] 10/27/2024 2:45 PM CDT Office Visit [facility] Gastroenterology [facility] [address] [facility] [address] [place] [phone] Bebo Benites MD [address] [facility] [address] [place] [address] documented as of this encounter Visit Diagnoses Diagnosis Encounter for BCP initial prescription General counseling for prescription of oral contraceptives documented in this encounter Additional Health Concerns Assessment Noted Time PHQ-9 Depression Total Score: 4 11/30/19 22 2:00 PM CDT documented as of this encounter Care Teams Research Manufacturing Operator Relationship Specialty Start Date End Date Francis Pereyra MD PCP - General Family Practice 02/08/18 12/08/21 documented as of this encounter
--- OUTSIDE RECORDS SUMMARY | 2024-06-08 20:20 | XMS_ITS | Encounter Summary ---
Author Organization [facility] Address [address] [place] [address] Care Team Providers Care Doctor Of Podiatric Medicine Name Role Phone Francis Pereyra MD Primary Care Provider Unava ilable Reason for Visit * Reason Comments Labs Only Encounter Details Date Type Department Care Team (Latest Contact Info) Description 12/04/2021 7:20 AM CDT Clinical Support [facility] [employer] [place] [address] [place] [address] Screening for condition; Type 2 diabetes mellitus without complication, without long-term current use of insulin; HTN (hypertension), benign; Hyperlipidemia, unspecified hyperlipidemia type Social History Tobacco Use Types Packs/Day Years [...] PM CDT documented as of this encounter Progress Notes * Kim Gibbons - 12/04/2021 7:29 AM CDT Pt came in for blood draw, left AC successful, 1 stick pt tolerated well. Drawn by Leona HERNÁNDEZ. documented in this encounter Miscellaneous Notes * Result Encounter Note - Lis Nails FNP - 12/05/2021 2:27 PM CDT Lis- I know you have an upcoming appointment on 12/09/21 to discuss lab results. 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 [place] [phone] [place] [address] [place] [address] 10/27/2024 2:45 PM CDT Office Visit [facility] Gastroenterology [place] [address] [address] [place] [address] Bebo Benites MD [address] [facility] [place] [address] [place] [address] documented as of this encounter Procedures Procedure Name Priority Date/Time Associated Diagnosis Comments MICROALBUMIN/CREATINI NE RATIO, RANDOM UR Routine 12/04/2021 7:16 AM CDT Type 2 diabetes mellitus without complication, without long-term current use of insulin HTN (hypertension), benign CBC WITH DIFFERENTIAL Routine 12/04/2021 7:16 AM CDT Screening for condition VITAMIN D 25 HYDROXY Routine 12/04/2021 7:16 AM CDT Screening for condition TSH Routine 12/04/2021 7:16 AM CDT Screening for condition HEMOGLOBIN A1C Routine 12/04/2021 7:16 AM CDT Type 2 diabetes mellitus without complication, without long-term current use of insulin LIPID PANEL Routine 12/04/2021 7:16 AM CDT Hyperlipidemia, unspecified hyperlipidemia type COMPREHENSIVE METABOLIC PANEL Routine 12/04/2021 7:16 AM CDT Screening for condition documented in this encounter Results * CBC WITH DIFFERENTIAL (12/04/2021 7:16 AM CDT) WBC 7.8 3.8 - 10.8 Thousand/u L [facility] RBC 4.15 3.80 - 5.10 Million/uL [facility] HEMOGLOBIN 12.7 11.7 - 15.5 g/dL [facility] HEMATOCRIT 39.4 35.0 - 45.0 % [facility] MCV 94.9 80.0 - 100.0 fL [facility] MCH 30.6 27.0 - 33.0 pg [facility] MCHC 32.2 32.0 - 36.0 g/dL [facility] RDW 13.5 11.0 - 15.0 % [facility] PLATELETS 302 140 - 400 Thousand/u L [facility] MPV 10.1 7.5 - 12.5 fL [facility] NEUTROPHIL ABSOLUTE 5,125 1,500 - 7,800 cells/uL [facility] LYMPHOCYTE ABSOLUTE 1,771 850 - 3,900 cells/uL [facility] MONOCYTE ABSOLUTE 554 200 - 950 cells/uL [facility] EOSINOPHIL ABSOLUTE 312 15 - 500 cells/uL [facility] BASOPHILS ABSOLUTE 39 0 - 200 cells/uL [facility] NEUTROPHIL 65.7 % [facility] LYMPHOCYTES 22.7 % [facility] MONOCYTE 7.1 % [facility] EOSINOPHILS 4.0 % [facility] BASOPHILS 0.5 % [facility] Comment: Test Performed at: [facility] [address] [place], [place] ??[phone] Jose Bryant D.O., MPH Blood 12/04/2021 7:16 AM CDT 12/05/2021 5:00 AM CDT Lis Nails [facility] HEMATOLOGY ORD ERABLES [facility] [phone] * (ABNORMAL) COMPREHENSIVE METABOLIC PANEL (12/04/2021 7:16 AM CDT) GLUCOSE 115(H) 65 - 99 mg/dL [facility] Comment: ? Fasting reference interval For someone without known diabetes, a glucose value between 100 and 125 mg/dL is consistent with prediabetes and should be confirmed with a follow-up test. BUN 12 7 - 25 mg/dL [facility] CREATININE 0.69 0.50 - 1.10 mg/dL [facility] GFR 113 > OR = 60 mL/min/1. 73m2 [facility] GFR, 131 > OR = 60 mL/min/1. 73m2 [facility] BUN/CREAT RATIO NOT APPLICABLE 6 - 22 (calc) [facility] SODIUM 139 135 - 146 mmol/L [facility] POTASSIUM 4.6 3.5 - 5.3 mmol/L [facility] CHLORIDE 105 98 - 110 mmol/L [facility] CO2 20 20 - 32 mmol/L [facility] CALCIUM 9.3 8.6 - 10.2 mg/dL [facility] TOTAL PROTEIN 6.8 6.1 - 8.1 g/dL [facility] ALBUMIN 4.2 3.6 - 5.1 g/dL [facility] GLOBULIN 2.6 1.9 - 3.7 g/dL (calc) [facility] ALBUMIN/GLOBULI N RATIO 1.6 1.0 - 2.5 (calc) [facility] BILIRUBIN TOTAL 0.4 0.2 - 1.2 mg/dL [facility] ALKALINE PHOSPHATASE 59 31 - 125 U/L [facility] AST 17 10 - 30 U/L [facility] ALT 23 6 - 29 U/L [facility] Comment: Test Performed at: [facility] [id number] [place] [address] ??[phone] Jose Bryant D.O., MPH Blood 12/04/2021 7:16 AM CDT 12/05/2021 5:00 AM CDT Lis Nails [facility] CHEMISTRY DEVIKA MARTINEZ [facility] [phone] * (ABNORMAL) HEMOGLOBIN A1C (12/04/2021 7:16 AM CDT) Pathologist [facility] HEMOGLOBIN A1C 6.1(H) <5.7 % of total Hgb [facility] Comment: For someone without known diabetes, a hemoglobin A1c value between 5.7% and 6.4% is consistent with prediabetes and should be confirmed with a follow-up test. For someone with known diabetes, a value <7% indicates that their diabetes is well controlled. A1c targets should be individualized based on duration of diabetes, age, comorbid conditions, and other considerations. This assay result is consistent with an increased risk of diabetes. Currently, no consensus exists regarding use of hemoglobin A1c for diagnosis of diabetes for children. ESTIMATED AVERAGE GLUCOSE (MG/DL) 128 mg/dL [facility] ESTIMATED AVERAGE GLUCOSE (MMOL/L) 7.1 mmol/L [facility] Comment: Test Performed at: [facility] [address] [place] ??[phone] Jose Bryant D.O., CAL Blood 12/04/2021 7:16 AM CDT 12/05/2021 5:00 AM CDT Lis Nails [facility] CHEMISTRY ORDE MICHELLE [facility] [phone] * (ABNORMAL) LIPID PANEL (12/04/2021 7:16 AM CDT) Pathologist [facility] CHOLESTEROL 127 <200 mg/dL [facility] HDL 49(L) > OR = 50 mg/dL [facility] TRIGLYCERIDE 134 <150 mg/dL [facility] LDL CALCULATED 56 mg/dL (calc) [facility] Comment: Reference range: <100 Desirable range <100 mg/dL for primary prevention; ?? <70 mg/dL for patients with CHD or diabetic patients with > or = 2 CHD risk factors. LDL-C is now calculated using the Medardo calculation, which is a validated novel method providing better accuracy than the Friedewald equation in the estimation of LDL-C. Tito CORTES et al. JOSUE. 2013;310(19): 1024-9556 (http://education.[employer].worldhistoryproject/faq/ASP569) CHOL/HDL RATIO 2.6 <5.0 (calc) [facility] TOTAL NON-HDL CHOL(LDL+VLDL) 78 <130 mg/dL (calc) [facility] Comment: For patients with diabetes plus 1 major ASCVD risk factor, treating to a non-HDL-C goal of <100 mg/dL (LDL-C of <70 mg/dL) is considered a therapeutic option. Test Performed at: [facility] [address] [place], [place] ??[phone] Jose Bryant D.O., MPH Blood 12/04/2021 7:16 AM CDT 12/05/2021 5:00 AM CDT Lis Nails [facility] CHEMISTRY ORDE RABLES Performing Organization Address City/[facility]/ZIP Co de Phone Number [facility] [phone] * MICROALBUMIN/CREATININE RATIO, RANDOM UR (12/04/2021 7:16 AM CDT) Creatinine, Urine 208 20 - 275 mg/dL [facility] MICROALBUMIN, URINE 2.6 See Note: mg/dL [facility] Comment: Reference Range: Reference Range Not established MICROALBUMIN/CREAT RATIO, UR 13 <30 mcg/mg creat [facility] Comment: The ADA defines abnormalities in albumin excretion as follows: Albuminuria Category ?Result (mcg/mg creatinine) Normal to Mildly increased ?? <30 Moderately increased ? 30-299 Severely increased ? > OR = 300 The ADA recommends that at least two of three specimens collected within a 3-6 month period be abnormal before considering a patient to be within a diagnostic category. Test Performed at: [facility] [address] [place] ??[address] Jose Bryant D.O., MPH Urine URINE SPECIMEN OBTAINED BY CLEAN CATCH PROCEDURE / Unknown 12/04/2021 7:16 AM CDT 12/05/2021 4:56 AM CDT Lis GONSALESP URINE ORDERABL ES Performing Organization Address City/[facility]/ZIP Co de Phone Number [facility] [phone] * TSH (12/04/2021 7:16 AM CDT) TSH 2.26 mIU/L [facility] Comment: ?Reference Range ?> or = 20 Years ??0.40-4.50 ? Ranges ?First trimester ?0.26-2.66 ?Second trimester ?? 0.55-2.73 ?Third trimester ?0.43-2.91 Test Performed at: [facility] ??[phone] Jose Bryant D.O., MPH Blood 12/04/2021 7:16 AM CDT 12/05/2021 5:00 AM CDT Lis Nails [employer]ER CHEMISTRY DEVIKA MARTINEZ [facility] [phone] * (ABNORMAL) VITAMIN D 25 HYDROXY (12/04/2021 7:16 AM CDT) Pathologist [facility] VITAMIN D, 25 OH, TOTAL 29(L) 30 - 100 ng/mL [facility] Comment: Vitamin D Status ? 25-OH Vitamin D: Deficiency: ?<20 ng/mL Insufficiency: ? 20 - 29 ng/mL Optimal: ? > or = 30 ng/mL For 25-OH Vitamin D testing on patients on D2-supplementation and patients for whom quantitation of D2 and D3 fractions is required, the QuestAssureD() 25-OH VIT D, (D2,D3), LC/MS/MS is recommended: order code 72389 (patients >2yrs). See Note 1 Note 1 For additional information, please refer to http://education.[employer].worldhistoryproject/faq/MTR492 (This link is being provided for informational/ educational purposes only.) Test Performed at: [facility] [address] [place], [place] ??[phone] Jose Bryant D.O., MPH Blood 12/04/2021 7:16 AM CDT 12/05/2021 5:00 AM CDT Lis PEREZ CHEMISTRY ORDE MICHELLE [facility] [phone] documented in this encounter Visit Diagnoses Diagnosis Screening for condition Screening for unspecified condition Type 2 diabetes mellitus without complication, without long-term current use of insulin HTN (hypertension), benign Essential hypertension, benign Hyperlipidemia, unspecified hyperlipidemia type documented in this encounter Additional Health Concerns Assessment Noted Time PHQ-9 Depression Total Score: 4 11/30/19 2:00 PM CDT documented as of this encounter Care Teams Doctor Of Podiatric Medicine Relationship Specialty Start Date End Date Francis Pereyra MD PCP - General Family Practice 02/08/18 12/08/21 documented as of this encounter
--- OUTSIDE RECORDS SUMMARY | 2024-06-08 20:20 | XMS_ITS | Encounter Summary ---
Author Organization [facility] Address [address] [place] [address] Care Team Providers Care Stamping Die Maker Name Role Phone Elma Magaña MD Primary Care Provider [phone] Reason for Visit * Reason Comments Depression Follow up on sertral ine after increasing the dose. Pt doing well, no complaints at this time Encounter Details Date Type Department Care Team (Late st Contact Info) Description 12/27/2021 2:00 PM CDT Office Visit [facility] at Work [employer] [place] [address] [phone] Lis Nails FNP NO ADDRESS ON FILE Moderate episode of recurrent major depressive disorder (Primary Dx) Social History Tobacco Use Types [...] Sign Reading Time Taken Comments Blood Pressure 128/88 12/27/2021 2:08 PM CDT Pulse 107 12/27/2021 2:08 PM CDT Temperature 36.3 ??C (97.3 ??F) 12/27/2021 2:08 PM CD T Respiratory Rate 18 12/27/2021 2:08 PM CDT Oxygen Saturation 97% 12/27/2021 2:08 PM CDT Inhaled Oxygen Concentration - - Weight 112 kg (247 lb) 12/27/2021 2:08 PM CDT Height 167.6 cm (5' 6 ) 12/27/2021 2:08 PM CDT Body Mass Index 39.87 12/27/2021 2:08 PM CDT documented in this encounter Progress Notes * Lis Nails, ANA - 12/27/2021 2:13 PM CDT HISTORY OF PRESENT ILLNESS Lis Phelan, a 36 y.o. female presents with a chief complaint of Chief Complaint Patient presents with ??? Depression Follow up on sertraline after increasing the dose. Pt doing well, no complaints at this time Subjective HPI Patient presents for follow up on sertraline after increasing the dose. On 11/29/21 dose was increased from 100 mg to 150 mg daily. Overall feeling better and no side effects. However, patient states she feels there is room to increase her medication dosage. She still has bad days where she does notwant to get out of bed. Those are becoming less frequent though. She does report suicidal thoughts are always in the back of her head, but no intention to act upon those thoughts and she has learned how to cope with feelings. The last time where these thoughts were prominent and needed to seek helpwas ~11 years ago. She does know to present to the ER or call the hotline if thoughts worsen. Discussed counseling/therapy. Patient refusing as she has done this in the past and makes her feel worse. Of note, going to start Ozempic tomorrow. Tobacco Intervention She is not a current tobacco user- former. Blood Pressure BP Readings from Last 3 Encounters: 12/27/21 128/88 12/09/21 130/86 11/29/21 124/76 Normal BMI Range: 18 & older: > or = 18.5 and < 25 Body mass index is 39.87 kg/m??. Abnormal high BMI: Patient counseled on lifestyle modifications including weight loss and daily exercise. This medical record reflects the history of present illness as obtained by myself in discussion with the patient. ROS Review of Systems - History obtained from chart review and the patient General ROS: negative for weight changes, fever Psychological ROS: positive for - anxiety, decreased interest in usual activities, decreased motivation, depression and suicidal ideation Respiratory ROS: negative for cough, shortness of breath, or wheezing Cardiovascular ROS: negative for chest pain or dyspnea on exertion Objective PHYSICAL EXAM Physical Examination: General appearance - alert, well appearing, and in no distress, oriented to person, place, and time and overweight Mental status - alert, oriented to person, place, and time, normal behavior, speech, dress, motor activity, and thought processes, depressed mood Chest - clear to auscultation, no wheezes, rales or rhonchi, symmetric air entry Heart - normal rate, regular rhythm, normal S1, S2, no murmurs, rubs, clicks or gallops Abdomen - soft, nondistended, no masses or organomegaly Assessment ASSESSMENT AND PLAN ICD-10-CM ICD-9-CM 1. Moderate episode of recurrent major depressive disorder F33.1 296.32 sertraline (ZOLOFT) 100 mg tablet Depression- Increase dose of sertraline from 150 mg to 200 mg daily. Follow up in 4-6 weeks. Present to the ER or call the hotline if suicidal thoughts persist or worsen. documented in this encounter Miscellaneous Notes * Patient Instructions - Lis Nails FNP - 12/27/2021 2:31 PM CDT Images from the original note were not included. An After Visit Summary was printed and given to the patient. Recovering From Depression: Care Instructions Your Care Instructions Taking good care of yourself is important as you recover from depression. In time, your symptoms will fade as your treatment takes hold. Do not give up.Instead, focus your energy on getting better. Your mood will improve. It just takes some time. Focus on things that can help you feel better, such as being with friends and family, eating well, and getting enough rest. But take things slowly. Donot do too much too soon. Youwill begin to feel better gradually. Follow-up care is a barreto part of your treatment and safety. Be sure to make and go to all appointments, and call your doctor if you are having problems. It's also a good idea to know your test resultsand keep alist of the medicines you take. How can you care for yourself at home? Be realistic ??? If you have a large task to do, break it up into smaller steps you can handle, and just do whatyou can. ??? You may want to put off important decisions until your depression has lifted. If you have plansthat will have a major impact on your life, such as marriage, divorce, or a job change, try to waita bit. Talk it over with friends and loved ones who can help you look at the overall picture first. ??? Reaching out to people for help is important. Do not isolate yourself. Let your family and friends help you. Find someone you can trust and confide in, and talk to that person. ??? Be patient, and be kind to yourself. Remember that depression is not your fault and is not something you can overcome with willpower alone. Treatment is important for depression, just like for any other illness. Feeling better takes time, and your mood will improve little by little. Stay active ??? Stay busy and get outside. Take a walk, or try some other light exercise. ??? Talk with your doctor about an exercise program. Exercise can help with mild depression. ??? Go to a movie or concert. Take part in a presybeterian activity or other social gathering. Go to a ball game. ??? Ask a friend to have dinner with you. Take care of yourself ??? Eat a balanced diet with plenty of fresh fruits and vegetables, whole grains, and lean protein.If you have lost your appetite, eat small snacks rather than large meals. ??? Avoid using illegal drugs or marijuana and drinking alcohol. Do not take medicines that have not been prescribed for you. They may interfere with medicines you may be taking for depression, or they may make your depression worse. ??? Take your medicines exactly as they are prescribed. You may start to feel better within 1 to 3 weeks of taking antidepressant medicine. But it can take as many as 6 to 8 weeks to see more improvement. If you have questions or concerns about your medicines, or if you do not notice any improvement by 3 weeks, talk to your doctor. ??? Continue to take your medicine after your symptoms improve. Taking your medicine for at least 6months after you feel better can help keep you from getting depressed again. If this isn't the first time you have been depressed, your doctor may recommend you to take medicine even longer. ??? If you have any side effects from your medicine, tell your doctor. Many side effects are mild and will go away on their own after you have been taking the medicine for a few weeks. Some may last longer. Talk to your doctor if side effects are bothering you too much. You might be able to try a different medicine. ??? Continue counseling. It may help prevent depression from returning, especially if you've had multiple episodes of depression. Talk with your counselor if you are having a hard time attending yoursessions or you think the sessions aren't working. Don't just stop going. ??? Get enough sleep. Talk to your doctor if you are having problems sleeping. ??? Avoid sleeping pills unless they are prescribed by the doctor treating your depression. Sleeping pills may make you groggy during the day, and they may interact with other medicine you are taking. ??? If you have any other illnesses, such as diabetes, heart disease, or high blood pressure, make sure to continue with your treatment. Tell your doctor about all of the medicines you take, including those with or without a prescription. ??? If you or someone you know talks about suicide, self-harm, or feeling hopeless, get help right away. Call the National Suicide Prevention Lifeline at 7-201-585-AEEM ( ) or text HOME to 052473 to access the Crisis Text Line. Consider saving these numbers in your phone. When should you call for help? Call 941 anytime you think you may need emergency care. For example, call if: ? You feel like hurting yourself or someone else. ? Someone you know has depression and is about to attempt or is attempting suicide. If you or someone you know talks about suicide, self-harm, or feeling hopeless, get help right away. Call the National Suicide Prevention Lifeline at 8-299-980-TALK ( ) or text HOME to 530000 to access the CrisisText Line. Consider saving these numbers in your phone. Call your doctor now or seek immediate medical care if: ? You hear voices. ? Someone you know has depression and: ? Starts to give away possessions. ? Uses illegal drugs or drinks alcohol heavily. ? Talks or writes about , including writing suicide notes or talking about guns, knives, or pills. ? Starts to spend a lot of time alone. ? Acts very aggressively or suddenly appears calm. Watch closely for changes in your health, and be sure to contact your doctor if: ? You do not get better as expected. Where can you learn more? Go to https://www.[employer].net/patiented Enter N529 in the search box to learn more about Recovering From Depression: Care Instructions. Current as of: July 31, 2021?Content Version: 13.3 ?? [employer]. Care instructions adapted under license by your healthcare professional. If you have questions about a medical condition or this instruction, always ask your healthcare professional. These instructions may not represent the values of this healthcare organization. [employer] disclaims any warranty or liability for your use of this information. documented in this encounter Plan of Treatment Upcoming Encounters Date Type Department Care Team (Late st Contact Info) Description 06/20/2024 9:30 AM FARMWORKER FRYER FARM Office Visit [facility] Orthopedic Surgery at the [facility] [address] [facility] [address] [place] [address] [place] [address] [place] [address] 10/27/2024 2:45 PM CDT Office Visit [facility] Gastroenterology [facility] [address] [place] [phone] Bebo Benites MD [address] [place] [address] documented as of this encounter Visit Diagnoses Diagnosis Moderate episode of recurrent major depressive disorder- Primary documented in this encounter Additional Health Concerns Assessment Noted Time PHQ-9 Depression Total Score: 4 11/30/19 22 2:00 PM CDT documented as of this encounter Care Teams Stamping Die Maker Relationship Specialty Start Date End Date Elma Magaña MD [address] [place] [phone] PCP - General Family Practice 12/09/21 12/13/23 documented as of this encounter
--- OUTSIDE RECORDS SUMMARY | 2024-06-08 20:20 | XMS_ITS | Encounter Summary ---
Author Organization [facility] Address [address] Attn: [place] [address] Care Team Providers Care Merchandising Consultant Name Role Phone Francis Peryera MD Primary Care Provider Rishi georges Encounter Details Date Type Department Care Team (Latest Contact Info) Description 10/23/2021 Travel Social History Tobacco Use Types Packs/Day [...] suspected to have Coronavirus/COVID-19? No / Unsure 10/23/2021 9:55 AM CDT documented as of this encounter Plan of Treatment Upcoming Encounters Date Type Department Care Team (Late st Contact Info) Description 06/20/2024 9:30 AM BULLET MAKER Office Visit [facility] Orthopedic Surgery at the [facility] Medicine [address] [facility] [address] [place] [address] [place] [address] [place] [address] 10/27/2024 2:45 PM CDT Office Visit [facility] Gastroenterology [facility] [address] [place] [phone] Bebo Benites MD [address] [address] documented as of this encounter Visit Diagnoses Not on filedocumented in this encounter Care Teams Merchandising Consultant Relationship Specialty Start Date End Date Francis Pereyra MD PCP - General Family Practice 02/08/18 12/08/21 documented as of this encounter
--- OUTSIDE RECORDS SUMMARY | 2024-06-08 20:20 | XMS_ITS | Encounter Summary ---
Author Organization [facility] Address [address] [place] [address] Care Team Providers Care Freelance Art Director Name Role Phone Francis Pereyra MD Primary Care Provider Unava ilable Reason for Visit * Reason Comments Medication Refill Encounter Details Date Type Department Care Team (Latest Contact Info) Description 08/26/2021 2:30 PM WAX PATTERN COATER Procedure visit [facility] at Work [employer] [place] [address] [place] [address] Encounter for issue of repeat [...] or suspected to have Coronavirus / COVID-19? No / Unsure 08/19/2021 11:01 AM WAX PATTERN COATER documented as of this encounter Progress Notes * Henrietta Andrade, SATURNINO - 08/26/2021 2:32 PM CST Flonase #1 No refills. Metformin 500mg BID #180 Refill 0 of 4. Bupropion 150mg BID #180 Refill 0 of1. Sertraline 100mg QD #90, Rosuvastatin 40mg QD #90, Lisinopril 10mg QD #100 Refill 1 of 2. Albuterol #1 Refill 1 of 6. PATTERN COATER documented in this encounter Plan of Treatment Upcoming Encounters Date Type Department Care Team (Late st Contact Info) Description 06/20/2024 9:30 AM WAX PATTERN COATER Office Visit [facility] Orthopedic Surgery at the [facility] [address] [place] [address] [place] [address] [place] [address] 10/27/2024 2:45 PM CDT Office Visit [facility] Gastroenterology [facility] [address] [place] [address] Bebo Benites MD [address] [facility] [address] [place] [address] documented as of this encounter Visit Diagnoses Diagnosis Encounter for issue of repeat prescription- Primary Issue of repeat prescriptions documented in this encounter Care Teams Freelance Art Director Relationship Specialty Start Date End Date Francis Pereyra MD PCP - General Family Practice 02/08/18 12/08/21 documented as of this encounter
--- OUTSIDE RECORDS SUMMARY | 2024-06-08 20:20 | XMS_ITS | Encounter Summary ---
Author Organization [facility] Address [address] [place] [address] Care Team Providers Care Collar Folder Operator Name Role Phone Elma Magaña MD Primary Care Provider [phone] Reason for Visit * Reason Onset Date Comments CoCM Initial Contact 02/04/2022 Encounter Details Date Type Department Care Team (Late Contact Info) Description 02/04/2022 Telephone [facility] [employer] [place] [address] [facility] [place] [phone] Radha Olvera, INFORMATION TECHNOLOGY PROJECT MANAGER [address] [facility] [address] [place] [address] CoCM Initial Contact Social History Tobacco Use Types Packs/Day Years [...] (Late Contact Info) Description 06/20/2024 9:30 AM MANAGER TALENT Office Visit [facility] Orthopedic Surgery at the [facility] [address] [facility] [address] [place] [address] [place] [address] [place] [address] 10/27/2024 2:45 PM CDT Office Visit [facility] Gastroenterology [facility] [address] [facility] [address] [place] [address] Bebo Benites MD [address] [facility] [address] [place] [address] documented as of this encounter Visit Diagnoses Not on filedocumented in this encounter Additional Health Concerns Assessment Noted Time PHQ-9 Depression Total Score: 4 11/30/19 22 2:00 PM CDT documented as of this encounter Care Teams Collar Folder Operator Relationship Specialty Start Date End Date Elma Magaña MD [address] [place] [phone] PCP - General Family Practice 12/09/21 12/13/23 documented as of this encounter
--- OUTSIDE RECORDS SUMMARY | 2024-06-08 20:20 | XMS_ITS | Encounter Summary ---
Author Organization [facility] Address [address] [place] [address] Care Team Providers Care Director Of Product Development Name Role Phone Elma Magaña MD Primary Care Provider Reason for Referral * Eval and Treat (Routine) - Closed Specialty Diagnoses / Procedures Referred By Contmaritza t Referred To Contact Diagnoses Moderate episode of recurrent major depressive disorder Generalized anxiety disorder Lis Nails FNP NO ADDRESS ON FILE Referral ID Status Reason Start Date Expiration Date Visits Re quested Visits Authorized [id number] Closed 01/31/2022 01/31/2023 1 1 Reason for Visit * Reason Comments Depression Follow up on sertral ine Encounter Details Date Type Department Care Team (Late st Contact Info) Description 01/31/2022 2:00 PM CDT Office Visit [facility] at [facility] [email or web address] [address] [place] [phone] Lis Nails FNP NO ADDRESS ON FILE Moderate episode of recurrent major depressive disorder (Primary Dx); Generalized anxiety disorder; Type 2 diabetes mellitus without complication, [...] Sign Reading Time Taken Comments Blood Pressure 126/72 01/31/2022 2:01 PM CDT Pulse 97 01/31/2022 2:01 PM CDT Temperature 36.6 ??C (97.8 ??F) 01/31/2022 2:01 PM CD T Respiratory Rate 16 01/31/2022 2:01 PM CDT Oxygen Saturation 98% 01/31/2022 2:01 PM CDT Inhaled Oxygen Concentration - - Weight 108.4 kg (239 lb) 01/31/2022 2:01 PM CDT Height 167.6 cm (5' 6 ) 01/31/2022 2:01 PM CDT Body Mass Index 38.58 01/31/2022 2:01 PM CDT documented in this encounter Progress Notes * Lis Nails, WHISKEY PROOF READER - 01/31/2022 2:05 PM CDT HISTORY OF PRESENT ILLNESS Lis Phelan, a 37 y.o. female presents with a chief complaint of Chief Complaint Patient presents with ??? Depression Follow up on sertraline Subjective HPI Patient presents to follow up on sertraline. On 12/27/21 dose Increase dose of sertraline from 150 mgto 200 mg daily. Overall feeling better and no side effects. She still has bad days where she does not want to get out of bed. Those are becoming less frequent though. Patient reports she continues to feel better on the increased dose. However, feels there is always room for improvement. Patient would like to remain on this dosage for another month before making any other medication changes. Discussed getting established with RONEY Garcia and behavioral health team. Patient is agreeable to this. She reports she is still having abdominal pain. EGD is scheduled for 02/10/22. Abdominal pain and not feeling well is definitely contributing to mental health issues. She reports she is due to Ozempic dose increase. Patient reports she is tolerating medication. She knows next time she is due for blood work. Tobacco Intervention She is not a current tobacco user- former. Blood Pressure BP Readings from Last 3 Encounters: 01/31/22 126/72 12/27/21 128/88 12/09/21 130/86 Normal BMI Range: 18 & older: > or = 18.5 and < 25 Body mass index is 38.58 kg/m??. Abnormal high BMI: Patient counseled on lifestyle modifications including weight loss and daily exercise. This medical record reflects the history of present illness as obtained by myself in discussion with the patient. ROS Review of Systems - History obtained from chart review and the patient General ROS: negative for weight changes, fever Psychological ROS: positive for - anxiety and depression Respiratory ROS: negative for cough, shortness of breath, or wheezing Cardiovascular ROS: negative for chest pain or dyspnea on exertion Gastrointestinal ROS: positive for - abdominal pain, diarrhea and nausea/vomiting Neurological ROS: negative for TIA or stroke symptoms Objective PHYSICAL EXAM Physical Examination: General appearance [...] of recurrent major depressive disorder F33.1 296.32 AMB REFERRAL TO CASE MANAGEMENT 2. Generalized anxiety disorder F41.1 300.02 AMB REFERRAL TO CASE MANAGEMENT 3. Type 2 diabetes mellitus without complication, without long-term current use of insulin E11.9 250.00 semaglutide (Ozempic) 0.25 mg or 0.5 mg(2 mg/1.5 mL) Pen Injector Depression- Continue sertraline 200 mg daily. Follow up in 4 weeks. Present to the ER or call the hotline if suicidal thoughts persist or worsen. Get established with case management- RONEY Garcia and behavioral health team. Will follow up on their recommendations. DM2- Increase dose of ozempic to 0.5 mg weekly x4 doses. Follow up in 4 weeks for weight check, dosage increase, and blood work. documented in this encounter Plan of Treatment Upcoming Encounters Date Type Department Care Team (Late st Contact Info) Description 06/20/2024 9:30 AM CABLE TELEVISION LINE TECHNICIAN Office Visit [facility] Orthopedic Surgery at the [facility] [address] [facility] [address] [place] [address] [place] [address] [place] [address] 10/27/2024 2:45 PM CDT Office Visit [facility] Gastroenterology [address] [facility] [facility] [address] [place] [phone] Bebo Benites MD [address] [facility] [address] [place] [address] Scheduled Referrals Name Type Priority Associated Diagnoses Order Schedule AMB REFERRAL TO CASE MANAGEMENT Outpatient Referral Routine Moderate episode of recurrent major depressive disorder Generalized anxiety disorder Ordered: 01/31/2022 documented as of this encounter Visit Diagnoses Diagnosis Moderate episode of recurrent major depressive disorder- Primary Generalized anxiety disorder Type 2 diabetes mellitus without complication, without long-term current use of insulin documented in this encounter Additional Health Concerns Assessment Noted Time PHQ-9 Depression Total Score: 4 11/30/19 22 2:00 PM CDT documented as of this encounter Care Teams Director Of Product Development Relationship Specialty Start Date End Date Elma Magaña MD [address] [place] [address] PCP - General Family Practice 12/09/21 12/13/23 documented as of this encounter
--- OUTSIDE RECORDS SUMMARY | 2024-06-08 20:20 | XMS_ITS | Encounter Summary ---
Author Organization [facility] Address [address] [place] [address] Care Team Providers Care Vendor Manager Name Role Phone Francis Pereyra MD Primary Care Provider Rishi georges Encounter Details Date Type Department Care Team (Late st Contact Info) Description 09/13/2021 Orders Only [facility] at Work [employer] [place] [address] [place] [id number] Lis Nails, ANA NO ADDRESS ON FILE Type 2 diabetes mellitus without complication, without long-term current use of insulin (Primary Dx); Hyperlipidemia, unspecified hyperlipidemia type Social History Tobacco [...] COVID-19? No / Unsure 08/19/2021 11:01 AM OIL WELL LOGGER documented as of this encounter Plan of Treatment Upcoming Encounters Date Type Department Care Team (Late st Contact Info) Description 06/20/2024 9:30 AM OIL WELL LOGGER Office Visit [facility] Orthopedic Surgery at the [facility] Medicine [address] [place] [address] [place] [address] [place] [address] 10/27/2024 2:45 PM CDT Office Visit [facility] Gastroenterology [facility] [address] [place] [address] Bebo Benites MD [address] [facility] [address] [place] [address] documented as of this encounter Visit Diagnoses Diagnosis Type 2 diabetes mellitus without complication, without long-term current use of insulin- Primary Hyperlipidemia, unspecified hyperlipidemia type documented in this encounter Care Teams Vendor Manager Relationship Specialty Start Date End Date Francis Pereyra MD PCP - General Family Practice 02/08/18 12/08/21 documented as of this encounter
--- OUTSIDE RECORDS SUMMARY | 2024-06-08 20:20 | XMS_ITS | Encounter Summary ---
Author Organization [facility] Address [address] Attn: [place] [address] Care Team Providers Care Sleeping Car Porter Name Role Phone Francis Pereyra MD Primary Care Provider Rishi georges Encounter Details Date Type Department Care Team (Latest Contact Info) Description 08/19/2021 Travel Social History Tobacco Use Types Packs/Day [...] COVID-19? No / Unsure 08/19/2021 11:01 AM GLASS BLOCK INSTALLER documented as of this encounter Plan of Treatment Upcoming Encounters Date Type Department Care Team (Late st Contact Info) Description 06/20/2024 9:30 AM GLASS BLOCK INSTALLER Office Visit [facility] Orthopedic Surgery at the [facility] [address] [place] [address] [place] [address] [place] [address] 10/27/2024 2:45 PM CDT Office Visit [facility] Gastroenterology [facility] [address] [place] [address] Bebo Benites MD [address] [address] documented as of this encounter Visit Diagnoses Not on filedocumented in this encounter Care Teams Sleeping Car Porter Relationship Specialty Start Date End Date Francis Pereyra MD PCP - General Family Practice 02/08/18 12/08/21 documented as of this encounter
--- OUTSIDE RECORDS SUMMARY | 2024-06-08 20:20 | XMS_ITS | Encounter Summary ---
Author Organization [facility] Address [address] [place] [address] Care Team Providers Care Director Cardiovascular Name Role Phone Francis Pereyra MD Primary Care Provider Unava ilable Reason for Visit * Reason Onset Date Comments Medication Review 10/03/2021 Encounter Details Date Type Department Care Team (Late st Contact Info) Description 10/03/2021 Telephone [facility] at [employer] [place] [address] [place] [place] [address] Lis Nails FNP NO ADDRESS ON FILE Medication Review Social History Tobacco Use Types Packs/Day Years [...] Telephone Encounter - Henrietta Andrade RN - 10/03/2021 11:24 AM CDT RETURNED TO STOCK: Metforming 1000mg #180, Fenofibrate 160mg #90. Filled on 09/13/2021 and not picked up. documented in this encounter Plan of Treatment Upcoming Encounters Date Type Department Care Team (Late st Contact Info) Description 06/20/2024 9:30 AM INFORMATION SPECIALIST Office Visit [facility] Orthopedic Surgery at the [facility] [address] [place] [address] [place] [address] [place] [address] 10/27/2024 2:45 PM CDT Office Visit [facility] Gastroenterology [facility] [address] [place] [address] Bebo Benites MD [address] [place] [phone] documented as of this encounter Visit Diagnoses Not on filedocumented in this encounter Care Teams Director Cardiovascular Relationship Specialty Start Date End Date Francis Pereyra MD PCP - General Family Practice 02/08/18 12/08/21 documented as of this encounter
--- OUTSIDE RECORDS SUMMARY | 2024-06-08 20:20 | XMS_ITS | Encounter Summary ---
Author Organization [employer] Address [address] [place] [address] Care Team Providers Care Gyroscopic Engineering Technician Name Role Phone Francis Pereyra MD Primary Care Provider Unava ilable Reason for Visit * Reason Onset Date Comments Medication Refill 10/23/2021 Encounter Details Date Type Department Care Team (Late st Contact Info) Description 10/23/2021 Refill [facility] at Work [employer] [place] [address] [place] [phone] Lacey Saleh, COAL HANDLER [address] [place] [address] Social History Tobacco Use Types [...] AM CDT documented as of this encounter Miscellaneous Notes * Telephone Encounter - Kim Gibbons - 10/23/2021 11:24 AM CDT Last OV-04/22/2021 documented in this encounter Plan of Treatment Upcoming Encounters Date Type Department Care Team (Late st Contact Info) Description 06/20/2024 9:30 AM CELL MAKER Office Visit [facility] Orthopedic Surgery at the [facility] [address] [place] [address] [place] [address] [place] [address] 10/27/2024 2:45 PM CDT Office Visit [facility] Gastroenterology [facility] [address] [place] [address] Bebo Benites MD [address] [place] [address] documented as of this encounter Visit Diagnoses Not on filedocumented in this encounter Care Teams Gyroscopic Engineering Technician Relationship Specialty Start Date End Date Francis Pereyra MD PCP - General Family Practice 02/08/18 12/08/21 documented as of this encounter
--- OUTSIDE RECORDS SUMMARY | 2024-06-08 20:20 | XMS_ITS | Encounter Summary ---
Author Organization [facility] Address [address] [place] [address] Care Team Providers Care Taxonomy Teacher Name Role Phone Francis Pereyra MD Primary Care Provider Rishi georges Encounter Details Date Type Department Care Team (Late Contact Info) Description 10/23/2021 Orders Only [facility] Gastroenterology [facility] [address] [place] [address] Bebo Benites MD [address] [facility] [address] [place] [address] Social History Tobacco Use Types Packs/Day Years [...] st Contact Info) Description 06/20/2024 9:30 AM PROGRAM FACILITATOR Office Visit [facility] Orthopedic Surgery at the [facility] [address] [place] [address] [place] [address] [place] [address] 10/27/2024 2:45 PM CDT Office Visit [facility] Gastroenterology [facility] [address] [place] [address] Bebo Benites MD [address] [facility] [address] [place] [address] documented as of this encounter Visit Diagnoses Not on filedocumented in this encounter Care Teams Taxonomy Teacher Relationship Specialty Start Date End Date Francis Pereyra MD PCP - General Family Practice 02/08/18 12/08/21 documented as of this encounter
--- OUTSIDE RECORDS SUMMARY | 2024-06-08 20:20 | XMS_ITS | Encounter Summary ---
Author Organization [facility] Address [address] [facility] Attn: [place] [address] Care Team Providers Care Certified Medical Records Coder Name Role Phone Elma Magaña MD Primary Care Provider [phone] Encounter Details Date Type Department Care Team (Latest Contact Info) Description 02/10/2022 Travel Social History Tobacco Use Types Packs/Day [...] st Contact Info) Description 06/20/2024 9:30 AM DUCT LAYER Office Visit [facility] Orthopedic Surgery at the [facility] [address] [facility] [address] [place] [address] [place] [address] [place] [address] 10/27/2024 2:45 PM CDT Office Visit [facility] Gastroenterology [facility] [address] [place] [address] Bebo Benites MD [address] [place] [address] documented as of this encounter Visit Diagnoses Not on filedocumented in this encounter Additional Health Concerns Assessment Noted Time PHQ-9 Depression Total Score: 4 11/30/19 22 2:00 PM CDT documented as of this encounter Care Teams Certified Medical Records Coder Relationship Specialty Start Date End Date Elma Magaña MD [address] [place] [phone] PCP - General Family Practice 12/09/21 12/13/23 documented as of this encounter
--- OUTSIDE RECORDS SUMMARY | 2024-06-08 20:20 | XMS_ITS | Encounter Summary ---
Author Organization [facility] Address [address] [place] [address] Care Team Providers Care Sand Polisher Name Role Phone Francis Pereyra MD Primary Care Provider Unava ilable Reason for Visit * Reason Comments ER Follow Up Was seen in the ED 0 11/27/2021 for abdominal pain, pt would like FMLA filled out as well Medication Refill Sertraline and Lisin opril Encounter Details Date Type Department Care Team (Latest Contact Info) Description 11/29/2021 1:30 PM CDT Office Visit [facility] at [place] [address] [place] [address] Lis Nails FNP NO ADDRESS ON FILE Moderate episode of recurrent major depressive disorder (Primary Dx); Morbid obesity with BMI of 40.0-44.9, adult; Generalized anxiety disorder; Type 2 diabetes mellitus without complication, without long-term current use of insulin; Hyperlipidemia, unspecified hyperlipidemia type; HTN (hypertension), benign; Screening for condition Social History Tobacco Use [...] Sign Reading Time Taken Comments Blood Pressure 124/76 11/29/2021 1:33 PM CDT Pulse 95 11/29/2021 1:33 PM CDT Temperature 37.2 ??C (99 ??F) 11/29/2021 1:33 PM CDT Respiratory Rate 18 11/29/2021 1:33 PM CDT Oxygen Saturation 98% 11/29/2021 1:33 PM CDT Inhaled Oxygen Concentration - - Weight 112.9 kg (249 lb) 11/29/2021 1:33 PM CDT Height 167.6 cm (5' 6 ) 11/29/2021 1:33 PM CDT Body Mass Index 40.19 11/29/2021 1:33 PM CDT documented in this encounter Progress Notes * Lis Nails, ELEMENTARY SCHOOL PRINCIPAL - 11/29/2021 1:34 PM CDT HISTORY OF PRESENT ILLNESS Lis Phelan, a 36 y.o. female presents with a chief complaint of Chief Complaint Patient presents with ??? ER Follow Up Was seen in the ED 11/27/2021 for abdominal pain, pt would like FMLA filled out as well ??? Medication Refill Sertraline and Lisinopril Subjective HPI Patient presents for ER follow up. She was in the ED on 11/27/21 with abdominal pain and back pain associated with nausea. Per ED note- Lab and imaging results are reassuring without acute specific pathology. Symptoms improved with treatment while in the ED. She was discharged home with a brief prescription for [place] and Zofran. Patient reports this abdominal pain is chronic. Pain mid upper gastric and RUQ. Has nausea, vomiting, and diarrhea. 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 She follows with GI. She has EGD and colonoscopy scheduled for 01/2022. Patient would also like to discuss mental health. She reports she is tried of hurting and has increased depression with lack of motivation, tearful, decreased interest in usual activities. Also anxiety with eating, because eating makes her abdominal pain worse, so she doesn't want to eat, but she is still overweight. She is just tired of being in pain. She reports she does have suicidal thoughts when abdominal pain is so bad, but that is the only time and with no intention to act upon those thoughts. She is open to increasing sertraline dose. She is requesting FMLA for her GI issues and mental health. She is also needed medications refilled- sertraline and lisinopril. Depression Screen PHQ-2 Total: 4 (11/29/21 1400) PHQ-9 Total: 16 (11/29/21 1400) Positive: PHQ-2 score >= 3 or PHQ-9 score >= 9 PHQ-2 Total: 4 (11/29/2021 2:00 PM) PHQ-9 Total: 16 (11/29/2021 2:00 PM) DEPRESSION PLAN OF CARE Her depression screen was positive. She was given a prescription for an antidepressant. Her antidepressant medication was reviewed. Anxiety Screen Generalized Anxiety (GAD7) 1. Feeling nervous, anxious, or on edge:: Several days (11/29/2021 2:00 PM) 2. Not been able to stop or control worrying:: Several days (11/29/2021 2:00 PM) 3. Worrying too much about different things:: Several days (11/29/2021 2:00 PM) 4.Trouble relaxing:: Several days (11/29/2021 2:00 PM) 5. Being so restless that it is hard to sit still:: Several days (11/29/2021 2:00 PM) 6. Becoming easily annoyed or irritatble:: Over half the days (11/29/2021 2:00 PM) 7. Feeling afraid as if something awful might happen:: Several days (11/29/2021 2:00 PM) If you checked off any problems, how difficult have these made it for you to do your work, take care of things at home, or get along with other people?: Somewhat difficult (11/29/2021 2:00 PM) Anxiety Score: 8 (11/29/2021 2:00 PM) Blood Pressure BP Readings from Last 3 Encounters: 11/29/21 124/76 11/28/21 (!) 142/86 10/23/21 (!) 141/95 Normal BMI Range: 18 & older: > or = 18.5 and < 25 Body mass index is 40.19 kg/m??. Abnormal high BMI: BMI 40 or above: We talked about her diagnosis of morbid obesity: it's role in her current health conditions; risk of future morbidity/mortality and the importance of weight loss in improving these conditions as well as her overall health. Counseled regarding the benefits of a low calorie, well-balanced diet and daily exercise. Weight management options discussed. This medical record reflects the history of present illness as obtained by myself in discussion with the patient. ROS Review of Systems - History obtained from chart review and the patient General ROS: negative for weight changes, fever Psychological ROS: positive for - anxiety, crying episodes, decreased interest in usual activities,decreased motivation and depression Respiratory ROS: negative for cough, shortness of breath, or wheezing Cardiovascular ROS: negative for chest pain or dyspnea on exertion Gastrointestinal ROS: positive for - abdominal pain, diarrhea and nausea/vomiting Neurological ROS: positive for - headaches Dermatological ROS: negative for skin rashes or unusual skin lesions Objective PHYSICAL EXAM Physical Examination: General appearance - alert, well appearing, and in no distress, oriented to person, place, and time and overweight Mental status - alert, oriented to person, place, and time, normal behavior, speech, dress, motor activity, and thought processes, depressed mood, anxious Chest - clear to auscultation, no wheezes, rales or rhonchi, symmetric air entry Heart - normal rate, regular rhythm, normal S1, S2, no murmurs, rubs, clicks or gallops Abdomen - soft, nondistended, no masses or organomegaly, scars from previous incisions- cholecystectomy and bowel resection, tenderness to the touch- mid upper gastric Neurological - alert, oriented, normal speech, no focal findings or movement disorder noted, motor and sensory grossly normal bilaterally, normal muscle tone, no tremors Extremities - no pedal edema noted Skin - normal coloration and turgor, no rashes, no suspicious skin lesions noted Assessment ASSESSMENT AND PLAN ICD-10-CM ICD-9-CM 1. Moderate episode of recurrent major depressive disorder F33.1 296.32 Increase dose of sertralinefrom 100 mg to 150 mg daily. 2. Morbid obesity with BMI of 40.0-44.9, adult E66.01 278.01 Z68.41 V85.41 3. Generalized anxiety disorder F41.1 300.02 4. Type 2 diabetes mellitus without complication, without long-term current use of insulin E11.9 250.00 HEMOGLOBIN A1C MICROALBUMIN/CREATININE RATIO, RANDOM UR 5. Hyperlipidemia, unspecified hyperlipidemia type E78.5 272.4 LIPID PANEL 6. HTN (hypertension), benign I10 401.1 MICROALBUMIN/CREATININE RATIO, RANDOM UR 7. Screening for condition Z13.9 V82.9 CBC WITH DIFFERENTIAL COMPREHENSIVE METABOLIC PANEL TSH VITAMIN D 25 HYDROXY Depression- Increase dose of sertraline from 100 mg to 150 mg daily. - We currently are out of 50 mg tab and patient would prefer to break the 100 mg tabs in half and take 1.5 tabs. Follow up in 1 month. GI- Continue to follow up with GI. Routine fasting blood work. With follow up appointment to discuss results. FMLA paperwork filled out for GI issues and mental health, faxed to , and scanned into media tab. documented in this encounter Plan of Treatment Upcoming Encounters Date Type Department Care Team (Late st Contact Info) Description 06/20/2024 9:30 AM INCIDENT ENGINEER Office Visit [facility] Orthopedic Surgery at the [facility] [address] [place] [phone] [place] [address] [place] [address] 10/27/2024 2:45 PM CDT Office Visit [facility] Gastroenterology [facility] [address] [place] [address] Bebo Benites MD [address] [place] [address] documented as of this encounter Results * (ABNORMAL) VITAMIN D 25 HYDROXY (12/04/2021 7:16 AM CDT) [facility] VITAMIN D, 25 OH, TOTAL 29(L) 30 - 100 ng/mL [facility] Comment: Vitamin D Status ? 25-OH Vitamin D: Deficiency: ?<20 ng/mL Insufficiency: ? 20 - 29 ng/mL Optimal: ? > or = 30 ng/mL For 25-OH Vitamin D testing on patients on D2-supplementation and patients for whom quantitation of D2 and D3 fractions is required, the QuestAssureD() 25-OH VIT D, (D2,D3), LC/MS/MS is recommended: order code 63540 (patients >2yrs). See Note 1 Note 1 For additional information, please refer to http://education.Pyrolia/faq/GPP887 (This link is being provided for informational/ educational purposes only.) Test Performed at: [facility] [address] [place] [address] ??[phone] Jose Bryant D.O., MPH Blood 12/04/2021 7:16 AM CDT 12/05/2021 5:00 AM CDT Lis Nails [employer] PRINCIPAL CHEMISTRY DEVIKA MARTINEZ [facility] [phone] * TSH (12/04/2021 7:16 AM CDT) TSH 2.26 mIU/L [facility] Comment: ?Reference Range ?> or = 20 Years ??0.40-4.50 ? Ranges ?First trimester ?0.26-2.66 ?Second trimester ?? 0.55-2.73 ?Third trimester ?0.43-2.91 Test Performed at: [facility] [id number] [place] [address] ??[phone] Jose Bryant D.O., MPH Blood 12/04/2021 7:16 AM CDT 12/05/2021 5:00 AM CDT Lis Nails [facility] CHEMISTRY ORDE RABLES Performing Organization Address [facility] de Phone Number [facility] [phone] * MICROALBUMIN/CREATININE RATIO, RANDOM UR (12/04/2021 7:16 AM CDT) Creatinine, Urine 208 20 - 275 mg/dL [email or web address] MICROALBUMIN, URINE 2.6 See Note: mg/dL [facility] Comment: Reference Range: Reference Range Not established MICROALBUMIN/CREAT RATIO, UR 13 <30 mcg/mg creat [email or web address] Comment: The ADA defines abnormalities in albumin excretion as follows: Albuminuria Category ?Result (mcg/mg creatinine) Normal to Mildly increased ?? <30 Moderately increased ? 30-299 Severely increased ? > OR = 300 The ADA recommends that at least two of three specimens collected within a 3-6 month period be abnormal before considering a patient to be within a diagnostic category. Test Performed at: [facility] ??[phone] Jose Bryant D.O., MPH Urine URINE SPECIMEN OBTAINED BY CLEAN CATCH PROCEDURE / Unknown 12/04/2021 7:16 AM CDT 12/05/2021 4:56 AM CDT Lis Nails [facility] URINE ORDERABL ES Performing Organization Address [facility] Co de Phone Number [facility] [phone] * (ABNORMAL) LIPID PANEL (12/04/2021 7:16 AM CDT) CHOLESTEROL 127 <200 mg/dL [email or web address] HDL 49(L) > OR = 50 mg/dL [email or web address] TRIGLYCERIDE 134 <150 mg/dL [email or web address] LDL CALCULATED 56 mg/dL (calc) [email or web address] Comment: Reference range: <100 Desirable range <100 mg/dL for primary prevention; ?? <70 mg/dL for patients with CHD or diabetic patients with > or = 2 CHD risk factors. LDL-C is now calculated using the Medardo calculation, which is a validated novel method providing better accuracy than the Friedewald equation in the estimation of LDL-C. Tito CORTES et al. JOSUE. 2013;310(19): 0130-1873 (http://education.Pyrolia/faq/CGM002) CHOL/HDL RATIO 2.6 <5.0 (calc) [facility] TOTAL NON-HDL CHOL(LDL+VLDL) 78 <130 mg/dL (calc) [facility] Comment: For patients with diabetes plus 1 major ASCVD risk factor, treating to a non-HDL-C goal of <100 mg/dL (LDL-C of <70 mg/dL) is considered a therapeutic option. Test Performed at: [facility] [place] ??[phone] Jose Bryant D.O., MPH Blood 12/04/2021 7:16 AM CDT 12/05/2021 5:00 AM CDT Lis Nails [facility] CHEMISTRY DEVIKA MARTINEZ [facility] [phone] * (ABNORMAL) HEMOGLOBIN A1C (12/04/2021 7:16 AM CDT) HEMOGLOBIN A1C 6.1(H) <5.7 % of total Hgb [facility] Comment: For someone without known diabetes, a [...] children. ESTIMATED AVERAGE GLUCOSE (MG/DL) 128 mg/dL [facility] ESTIMATED AVERAGE GLUCOSE (MMOL/L) 7.1 mmol/L [facility] Comment: Test Performed at: [facility] [place] ??[phone] Jose Bryant D.O., MPH Blood 12/04/2021 7:16 AM CDT 12/05/2021 5:00 AM CDT Lis Nails [facility] CHEMISTRY SILVAE MICHELLE [facility] [phone] * (ABNORMAL) COMPREHENSIVE METABOLIC PANEL (12/04/2021 7:16 AM CDT) GLUCOSE 115(H) 65 - 99 mg/dL [email or web address] Comment: ? Fasting reference interval For someone without known diabetes, a glucose value between 100 and 125 mg/dL is consistent with prediabetes and should be confirmed with a follow-up test. BUN 12 7 - 25 mg/dL [email or web address] CREATININE 0.69 0.50 - 1.10 mg/dL [facility] GFR 113 > OR = 60 mL/min/1. 73m2 [email or web address] GFR, 131 > OR = 60 mL/min/1. 73m2 [email or web address] BUN/CREAT RATIO NOT APPLICABLE 6 - 22 (calc) [email or web address] SODIUM 139 135 - 146 mmol/L [email or web address] POTASSIUM 4.6 3.5 - 5.3 mmol/L [email or web address] CHLORIDE 105 98 - 110 mmol/L [email or web address] CO2 20 20 - 32 mmol/L [email or web address] CALCIUM 9.3 8.6 - 10.2 mg/dL [facility] TOTAL PROTEIN 6.8 6.1 - 8.1 g/dL [facility] ALBUMIN 4.2 3.6 - 5.1 g/dL [email or web address] GLOBULIN 2.6 1.9 - 3.7 g/dL (calc) [email or web address] ALBUMIN/GLOBULI N RATIO 1.6 1.0 - 2.5 (calc) [email or web address] BILIRUBIN TOTAL 0.4 0.2 - 1.2 mg/dL [email or web address] ALKALINE PHOSPHATASE 59 31 - 125 U/L [email or web address] AST 17 10 - 30 U/L [email or web address] ALT 23 6 - 29 U/L [facility] Comment: Test Performed at: [facility] [address] [place] ??[phone] Jose Bryant D.O., MPH Blood 12/04/2021 7:16 AM CDT 12/05/2021 5:00 AM CDT Lis Nails [facility] CHEMISTRY ORDE RABLES [facility] [phone] * CBC WITH DIFFERENTIAL (12/04/2021 7:16 AM CDT) WBC 7.8 3.8 - 10.8 Thousand/u L [facility] RBC 4.15 3.80 - 5.10 Million/uL [facility] HEMOGLOBIN 12.7 11.7 - 15.5 g/dL [facility] HEMATOCRIT 39.4 35.0 - 45.0 % [facility] MCV 94.9 80.0 - 100.0 fL [facility] MCH 30.6 27.0 - 33.0 pg [facility] MCHC 32.2 32.0 - 36.0 g/dL [facility] RDW 13.5 11.0 - 15.0 % [facility] PLATELETS 302 140 - 400 Thousand/u L [facility] MPV 10.1 7.5 - 12.5 fL [facility] NEUTROPHIL ABSOLUTE 5,125 1,500 - 7,800 cells/uL [facility] LYMPHOCYTE ABSOLUTE 1,771 850 - 3,900 cells/uL [facility] MONOCYTE ABSOLUTE 554 200 - 950 cells/uL [facility] EOSINOPHIL ABSOLUTE 312 15 - 500 cells/uL [facility] BASOPHILS ABSOLUTE 39 0 - 200 cells/uL [facility] NEUTROPHIL 65.7 % [facility] LYMPHOCYTES 22.7 % [facility] MONOCYTE 7.1 % [facility] EOSINOPHILS 4.0 % [facility] BASOPHILS 0.5 % [facility] Comment: Test Performed at: [facility] [id number] [place] [address] ??[phone] Jose Bryant D.O., MPH Blood 12/04/2021 7:16 AM CDT 12/05/2021 5:00 AM CDT Lis Nails [facility] HEMATOLOGY ORD ERABLES [facility] [phone] documented in this encounter Visit Diagnoses Diagnosis Moderate episode of recurrent major depressive disorder- Primary Morbid obesity with BMI of 40.0-44.9, adult Generalized anxiety disorder Type 2 diabetes mellitus without complication, without long-term current use of insulin Hyperlipidemia, unspecified hyperlipidemia type HTN (hypertension), benign Essential hypertension, benign Screening for condition Screening for unspecified condition documented in this encounter Additional Health Concerns Assessment Noted Time PHQ-9 Depression Total Score: 4 11/30/19 22 2:00 PM CDT documented as of this encounter Care Teams Sand Polisher Relationship Specialty Start Date End Date Francis Pereyra MD PCP - General Family Practice 02/08/18 12/08/21 documented as of this encounter
--- OUTSIDE RECORDS SUMMARY | 2024-06-08 20:20 | XMS_ITS | Encounter Summary ---
Author Organization [facility] Address [address] [place] [address] Care Team Providers Care Import Dispatcher Name Role Phone Elma Magaña MD Primary Care Provider [phone] Reason for Visit * Reason Onset Date Comments CoCM Initial Contact 02/18/2022 Encounter Details Date Type Department Care Team (Late st Contact Info) Description 02/18/2022 Telephone [facility] at Work [employer] [place] [address] [place] [phone] Radha Olvera LCSW [address] [address] CoCM Initial Contact Social History Tobacco [...] encounter Miscellaneous Notes * Telephone Encounter - Radha Olvera LCSW - 02/18/2022 2:45 PM CDT Collaborative Care - [facility] Behavioral Health Reheater Helper (BHCM) spoke with Lis to introduce the Collaborative Care program in greater detail, answer any questions and schedule an appointment for their initial assessment. Currently, Lis does not want to proceed with Collaborative Care services due to being too busy at work and unable to take time off. She plans to call and schedule an appt when things slow down. Lis is aware that they can discuss Collaborative Care options with Elma Mgaaña MD in the future, if needed. The referring provider, Elma Magaña MD, was also made aware of their decisionto decline Collaborative Care services at this time and will continue to monitor Lis in case he/she needs to be referred again in the future. Lis verbalized an accurate understanding that should he/she experience a psychiatric emergency in the future, they are to contact [facility] or the National Suicide Prevention Lifeline at 988 (call or text) or . documented in this encounter Plan of Treatment Upcoming Encounters Date Type Department Care Team (Late st Contact Info) Description 06/20/2024 9:30 AM DRAPERY ESTIMATOR Office Visit [facility] Orthopedic Surgery at the [facility] [address] [place] [address] [place] [address] [place] [address] 10/27/2024 2:45 PM CDT Office Visit [facility] G[facility]enterology [facility] [address] [place] [address] Bebo Benites MD [address] [place] [address] documented as of this encounter Visit Diagnoses Not on filedocumented in this encounter Additional Health Concerns Assessment Noted Time PHQ-9 Depression Total Score: 4 11/30/19 22 2:00 PM CDT documented as of this encounter Care Teams Import Dispatcher Relationship Specialty Start Date End Date Elma Magaña MD [address] [place] [phone] PCP - General Family Practice 12/09/21 12/13/23 documented as of this encounter
--- OUTSIDE RECORDS SUMMARY | 2024-06-08 20:20 | XMS_ITS | Encounter Summary ---
Author Organization [facility] Address [address] [place] [address] Care Team Providers Care Evs Tech Name Role Phone Elma Magaña MD Primary Care Provider [phone] Reason for Visit * Reason Comments Results Pt presents to [facility] up on recent lab results Encounter Details Date Type Department Care Team (Latest Contact Info) Description 12/09/2021 2:30 PM CDT Office Visit [facility] [place] [address] [place] [address] Elma Magaña MD [address] [place] [phone] Vitamin D insufficiency (Primary Dx); Type 2 diabetes mellitus without [...] Sign Reading Time Taken Comments Blood Pressure 130/86 12/09/2021 2:26 PM CDT Pulse 86 12/09/2021 2:26 PM CDT Temperature 37.3 ??C (99.2 ??F) 12/09/2021 2:26 PM CD T Respiratory Rate 18 12/09/2021 2:26 PM CDT Oxygen Saturation 98% 12/09/2021 2:26 PM CDT Inhaled Oxygen Concentration - - Weight 112 kg (247 lb) 12/09/2021 2:26 PM CDT Height 167.6 cm (5' 6 ) 12/09/2021 2:26 PM CDT Body Mass Index 39.87 12/09/2021 2:26 PM CDT documented in this encounter Progress Notes * Elma Magaña MD - 12/09/2021 2:45 PM CDT OFFICE VISIT PROGRESS NOTE DATE: 12/09/2021 PATIENT: Lis Phelan : 1985 PCP: Elma Magaña MD Chief Complaint Patient presents with ??? Results Pt presents to follow up on recent lab results HISTORY OF PRESENT ILLNESS 36 yo wf here for f/u on recent labs and med change. She has appointment and f/u with Dr. Avila. Lis increased her dose of zoloft recently - minimal improvement (it has only been 10 days) and no side effects of the higher dose. She got out of bed this am and did some chores. She feels less tearful. She does not want to see a counselor. She wants to try a mounjaro for her dm and to help her lose weight. A1c is controlled. Clinical Support on 12/04/2021 Component Date Value Ref Range Status ??? VITAMIN D, 25 OH, TOTAL 12/04/2021 29 (A) 30 - 100 ng/mL Final Comment: Vitamin D Status 25-OH Vitamin D: Deficiency: <20 ng/mL Insufficiency: 20 - 29 ng/mL Optimal: > or = 30 ng/mL For 25-OH Vitamin D testing on patients on D2-supplementation and patients for whom quantitation of D2 and D3 fractions is required, the QuestAssureD(TM) 25-OH VIT D, (D2,D3), LC/MS/MS is recommended: order code 71737 (patients >2yrs). See Note 1 Note 1 For additional information, please refer to http://education.[employer]/faq/TCL190 (This link is being provided for informational/ educational purposes only.) Test Performed at: [facility] [address] [place] [address] Jose Bryant D.O., MPH ??? TSH 12/04/2021 2.26 mIU/L Final Comment: Reference Range > or = 20 Years 0.40-4.50 Ranges First trimester 0.26-2.66 Second trimester 0.55-2.73 Third trimester 0.43-2.91 Test Performed at: [place] [address] Jose Bryant D.O., MPH ??? Creatinine, Urine 12/04/2021 208 20 - 275 mg/dL Final ??? MICROALBUMIN, URINE 12/04/2021 2.6 See Note: mg/dL Final Comment: Reference Range: Reference Range Not established ? ? MICROALBUMIN/CREAT RATIO, UR 12/04/2021 13 <30 mcg/mg creat Final Comment: The ADA defines abnormalities in albumin excretion as follows: Albuminuria Category Result (mcg/mg creatinine) Normal to Mildly increased <30 Moderately increased 30-299 Severely increased > OR = 300 The ADA recommends that at least two of three specimens collected within a 3-6 month period be abnormal before considering a patient to be within a diagnostic category. Test Performed at: [facility] [address] [facility] [address] Jose Bryant D.O., MPH ? ? CHOLESTEROL 12/04/2021 127 <200 mg/dL Final ? ? HDL 12/04/2021 49 (A) > OR = 50 mg/dL Final ? ? TRIGLYCERIDE 12/04/2021 134 <150 mg/dL Final ??? LDL CALCULATED 12/04/2021 56 mg/dL (calc) Final Comment: Reference range: <100 Desirable range <100 mg/dL for primary prevention; <70 mg/dL for patients with CHD or diabetic patients with > or = 2 CHD risk factors. LDL-C is now calculated using the Tito-Falcon calculation, which is a validated novel method providing better accuracy than the Friedewald equation in the estimation of LDL-C. Tito CORTES et al. JOSUE. 2013;310(19): 1930-2334 (http://education.[employer]/faq/XQF455) ? ? CHOL/HDL RATIO 12/04/2021 2.6 <5.0 (calc) Final ? ? TOTAL NON-HDL CHOL(LDL+VLDL) 12/04/2021 78 <130 mg/dL (calc) Final Comment: For patients with diabetes plus 1 major ASCVD risk factor, treating to a non-HDL-C goal of <100 mg/dL (LDL-C of <70 mg/dL) is considered a therapeutic option. Test Performed at: [facility] [address] [place] [address] Jose Bryant D.O., MPH ? ? HEMOGLOBIN A1C 12/04/2021 6.1 (A) <5.7 % of total Hgb Final Comment: For someone without known diabetes, a [...] A1c for diagnosis of diabetes for children. ??? ESTIMATED AVERAGE GLUCOSE (MG/DL) 12/04/2021 128 mg/dL Final ??? ESTIMATED AVERAGE GLUCOSE (MMOL/L) 12/04/2021 7.1 mmol/L Final Comment: Test Performed at: [facility] [address] [address] Jose Bryant D.O., MPH ??? GLUCOSE 12/04/2021 115 (A) 65 - 99 mg/dL Final Comment: Fasting reference interval For someone without known diabetes, a glucose value between 100 and 125 mg/dL is consistent with prediabetes and should be confirmed with a follow-up test. ??? BUN 12/04/2021 12 7 - 25 mg/dL Final ??? CREATININE 12/04/2021 0.69 0.50 - 1.10 mg/dL Final ? ? GFR 12/04/2021 113 > OR = 60 mL/min/1.73m2 Final ? ? GFR, 12/04/2021 131 > OR = 60 mL/min/1.73m2 Final ??? BUN/CREAT RATIO 12/04/2021 NOT APPLICABLE 6 - 22 (calc) Final ??? SODIUM 12/04/2021 139 135 - 146 mmol/L Final ??? POTASSIUM 12/04/2021 4.6 3.5 - 5.3 mmol/L Final ??? CHLORIDE 12/04/2021 105 98 - 110 mmol/L Final ??? CO2 12/04/2021 20 20 - 32 mmol/L Final ??? CALCIUM 12/04/2021 9.3 8.6 - 10.2 mg/dL Final ??? TOTAL PROTEIN 12/04/2021 6.8 6.1 - 8.1 g/dL Final ??? ALBUMIN 12/04/2021 4.2 3.6 - 5.1 g/dL Final ??? GLOBULIN 12/04/2021 2.6 1.9 - 3.7 g/dL (calc) Final ??? ALBUMIN/GLOBULIN RATIO 12/04/2021 1.6 1.0 - 2.5 (calc) Final ??? BILIRUBIN TOTAL 12/04/2021 0.4 0.2 - 1.2 mg/dL Final ??? ALKALINE PHOSPHATASE 12/04/2021 59 31 - 125 U/L Final ??? AST 12/04/2021 17 10 - 30 U/L Final ??? ALT 12/04/2021 23 6 - 29 U/L Final Comment: Test Performed at: [facility] [address] [place] [address] Jose Bryant D.O., MPH ??? WBC 12/04/2021 7.8 3.8 - 10.8 Thousand/uL Final ??? RBC 12/04/2021 4.15 3.80 - 5.10 Million/uL Final ??? HEMOGLOBIN 12/04/2021 12.7 11.7 - 15.5 g/dL Final ??? HEMATOCRIT 12/04/2021 39.4 35.0 - 45.0 % Final ??? MCV 12/04/2021 94.9 80.0 - 100.0 fL Final ??? MCH 12/04/2021 30.6 27.0 - 33.0 pg Final ??? MCHC 12/04/2021 32.2 32.0 - 36.0 g/dL Final ??? RDW 12/04/2021 13.5 11.0 - 15.0 % Final ??? PLATELETS 12/04/2021 302 140 - 400 Thousand/uL Final ??? MPV 12/04/2021 10.1 7.5 - 12.5 fL Final ??? NEUTROPHIL ABSOLUTE 12/04/2021 5,125 1,500 - 7,800 cells/uL Final ??? LYMPHOCYTE ABSOLUTE 12/04/2021 1,771 850 - 3,900 cells/uL Final ??? MONOCYTE ABSOLUTE 12/04/2021 554 200 - 950 cells/uL Final ??? EOSINOPHIL ABSOLUTE 12/04/2021 312 15 - 500 cells/uL Final ??? BASOPHILS ABSOLUTE 12/04/2021 39 0 - 200 cells/uL Final ??? NEUTROPHIL 12/04/2021 65.7 % Final ??? LYMPHOCYTES 12/04/2021 22.7 % Final ??? MONOCYTE 12/04/2021 7.1 % Final ??? EOSINOPHILS 12/04/2021 4.0 % Final ??? BASOPHILS 12/04/2021 0.5 % Final Comment: Test Performed at: [facility] [address] [place] [address] Jose Bryant D.O., MPH PAST MEDICAL HISTORY: Past Medical History: Diagnosis Date ??? Arthritis ??? Asthma ??? Biliary dyskinesia ??? Depression ??? Diabetes mellitus ??? Difficult intravenous access VERY hard IV stick use requests ultrasound ??? Eosinophilic esophagitis ??? GERD (gastroesophageal reflux disease) ??? Headache ??? History of shingles ??? HTN (hypertension), benign 12/29/2020 ??? Hyperlipidemia PAST SURGICAL HISTORY Past Surgical History: Procedure Laterality Date ??? HX CARPAL TUNNEL RELEASE Right 06/11/2021 RIGHT CARPAL TUNNEL RELEASE performed by Paddy Mackey MD at [facility] OR ??? HX GASTROSCHISIS CLOSURE ??? HX HAND SURGERY Right 4th digit ??? HX RHINOPLASTY Bilateral 12/20/2020 ??? HX SURGICAL OTHER 04/2004 adhesion removed ??? HX TURBINATE RESECTION Right 12/20/2020 ??? [place] ESOPHAGOGASTRODUODENOSCOPY TRANSORAL DIAGNOSTIC N/A 05/17/2019 ESOPHAGOGASTRODUODENOSCOPY performed by Jena Cerda MD at [facility] ??? WA REMOVAL GALLBLADDER N/A 11/03/2019 OPEN CHOLECYSTECTOMY performed by Gabbie Wheeler MD at [facility] OR MAIN CURRENT MEDICATIONS Current Outpatient Medications Medication Sig Dispense Refill ??? cholecalciferol, vitamin D3, (Vitamin D3) 1,000 unit Take 1 Tablet (1,000 Units) by mouth daily. ??? semaglutide (Ozempic) 0.25 mg or 0.5 mg(2 mg/1.5 mL) Pen Injector Inject 0.25 mg by subcutaneous injection every 7 days for 28 days. 4.5 mL 0 ??? Ashlyna 0.15 mg-30 mcg (84)/10 mcg (7) Tablet, Dose Pack, 3 Months Take 1 tablet by mouth once daily 91 Tablet 0 ??? dicyclomine (BENTYL) 10 mg capsule Take 1 Capsule (10 mg) by mouth 3 times daily. 90 Capsule 6 ??? pantoprazole (PROTONIX) 40 mg Tablet, Delayed Release (E.C.) Take 1 Tablet (40 mg) by mouth daily. 90 Tablet 4 ??? metFORMIN (GLUCOPHAGE) 1,000 mg tablet Take 1 Tablet (1,000 mg) by mouth 2 times daily with meals. 180 Tablet 0 ??? fenofibrate (LOFIBRA) 160 mg Tablet Take 1 Tablet (160 mg) by mouth daily. 90 Tablet 1 ??? fluticasone propionate (FLONASE) 50 mcg/spray [place], Suspension nasal inhaler Use 2 sprays eachnostril twice a day for 7-10 days 16 Gram 0 ??? ALPRAZolam (XANAX) 0.25 mg tablet Take 1 Tablet (0.25 mg) by mouth 2 times daily as needed for Anxiety. 15 Tablet 0 ??? buPROPion HCL (WELLBUTRIN SR) 150 mg Sustained Release 12 hour tablet Take 1 Tablet (150 mg) bymouth 2 times daily. 180 Tablet 1 ??? albuterol sulfate 90 mcg/Actuation inhaler Take 1-2 Puffs by inhalation every 4 hours as neededfor Shortness of Breath or Wheezing. 6.7 Gram 6 ??? sertraline (ZOLOFT) 100 mg tablet Take 1 Tablet (100 mg) by mouth daily. (Patient taking differently: Take 150 mg by mouth daily. Pt to take 1.5 tabs daily of 100mg) 90 Tablet 2 ??? rosuvastatin (CRESTOR) 40 mg tablet Take 1 Tablet (40 mg) by mouth daily at bedtime. 90 Tablet 2 ??? lisinopriL (PRINIVIL) 10 mg tablet Take 1 Tablet (10 mg) by mouth daily. 90 Tablet 3 ??? cetirizine (ZyrTEC) 10 mg tablet Take 10 mg by mouth daily. No current facility-administered medications for this visit. ALLERGIES Allergies Allergen Reactions ??? Tramadol Hives ??? Varenicline Anaphylaxis ??? Metronidazole Nausea and Vomiting Other reaction(s): Vomiting ??? Meperidine Swelling TOBACCO COUNSELING She is not a tobacco user. REVIEW OF SYSTEMS As in HPI PHYSICAL EXAMINATION BP 130/86 (BP Location: Left arm, Patient Position (BP): Sitting, BP Cuff Size: Large Adult) Pulse 86 Temp 99.2 ??F (37.3 ??C) (Tympanic) Resp 18 Ht 5' 6 (1.676 m) Wt 112 kg (247 lb) SpO2 98% BMI 39.87 kg/m?? Gen - AAO, NAD Head- normocephalic/atraumatic. Eyes - PERRL, EOMI, noninjected Ears - pinna appear normal, hearing is grossly normal. Neck - Supple, no thyroid masses. No LAD. Heart - RRR, no m/r/g Lungs - CTAB, no w/r/r Abd - soft, NT/ND, normal bowel sounds x 4 Ext - no c/c/e. Normal peripheral pulses Neuro - Facial features symmetric. Normal speech and voice. Normal gait. A/P Lis was seen today for results. Diagnoses and all orders for this visit: Vitamin D insufficiency - cholecalciferol, vitamin D3, (Vitamin D3) 1,000 unit; Take 1 Tablet (1,000 Units) by mouth daily. Type 2 diabetes mellitus without complication, without long-term current use of insulin - semaglutide (Ozempic) 0.25 mg or 0.5 mg(2 mg/1.5 mL) Pen Injector; Inject 0.25 mg by subcutaneousinjection every 7 days for 28 days. Continue same dose of zoloft. She is taking 150mg daily. We will start Ozempic and may consider stopping metformin if it is working well and well-tolerated. PATIENT INSTRUCTIONS UP to date handout on Ozempic provided for patient. Call if you have any problems getting the ozempic or taking or tolerating ozempic. Keep your previously scheduled f/u appt. FOLLOW UP Return in about 3 weeks (around 12/30/2021). Elma Magaña MD 12/09/2021 [facility] AT [address] [address] documented in this encounter Miscellaneous Notes * Patient Instructions - Elma Magaña MD - 12/09/2021 3:03 PM CDT Call if you have any problems getting the ozempic or taking or tolerating ozempic. Keep your previously scheduled f/u appt. documented in this encounter Plan of Treatment Upcoming Encounters Date Type Department Care Team (Late st Contact Info) Description 06/20/2024 9:30 AM CHIEF OF VITAL STATISTICS Office Visit [facility] Orthopedic Surgery at the [facility] [address] [address] [place] [phone] [place] [address] [place] [address] 10/27/2024 2:45 PM CDT Office Visit [facility] Gastroenterology [facility] [address] [place] [address] Bebo Benites MD [address] [place] [address] documented as of this encounter Visit Diagnoses Diagnosis Vitamin D insufficiency- Primary Unspecified vitamin D deficiency Type 2 diabetes mellitus without complication, without long-term current use of insulin documented in this encounter Additional Health Concerns Assessment Noted Time PHQ-9 Depression Total Score: 4 11/30/19 22 2:00 PM CDT documented as of this encounter Care Teams Evs Tech Relationship Specialty Start Date End Date Elma Magaña MD [address] [place] [address] PCP - General Family Practice 12/09/21 12/13/23 documented as of this encounter
--- OUTSIDE RECORDS SUMMARY | 2024-06-08 20:20 | XMS_ITS | Encounter Summary ---
Author Organization [facility] Address [address] [place] [address] Care Team Providers Care Network Strategist Name Role Phone Francis Pereyra MD Primary Care Provider Unava ilable Reason for Visit * Reason Comments Establish Care Ab pain, diarrhea Encounter Details Date Type Department Care Team (Latest Contact Info) Description 10/23/2021 10:15 AM CDT Office Visit [facility] Gastroenterology [place] [id number] [address] Bebo Benites MD [address] [address] Change in bowel habits (Primary Dx); Intermittent generalized abdominal pain; Eosinophilic esophagitis; History of gastroschisis; History of cholecystectomy Social History Tobacco Use Types Packs/Day Years [...] AM CDT documented as of this encounter Last Filed Vital Signs Vital Sign Reading Time Taken Comments Blood Pressure 141/95 10/23/2021 10:09 AM CDT Pulse 107 10/23/2021 10:09 AM CDT Temperature - - Respiratory Rate - - Oxygen Saturation - - Inhaled Oxygen Concentration - - Weight 113.2 kg (249 lb 9.6 oz) 022 10:09 AM CDT Height - - Body Mass Index 40.29 09/12/2021 9:28 AM CDT documented in this encounter Progress Notes * Bebo Benites MD - 10/23/2021 10:49 AM CDT HISTORY OF PRESENT ILLNESS Lis Phelan, a 36 y.o. female presents with a Chief Complaint of Establish Care (Ab pain, diarrhea) Subjective HPI Lis reports history of current symptoms for about 2 years. Reports history of generalized abdominal pain, achy to sharp, intermittent, happens almost on a daily basis, denies specific aggravatingor relieving factors and the symptoms are moderate in intensity. She also reports history of 8-10 bowel movements per day associated with urgency, stools are mostly liquid to semiliquid. He has eliminated caffeine, carbonated beverages, dairy intake and artificial sweeteners without any significantimprovement. Tried fiber supplement without any change in her symptoms. Symptoms worsened after hercholecystectomy in 2019. Denies prior colonoscopy. Last EGD was performed by Dr. Mo in April 2019, was diagnosed with eosinophilic esophagitis atthat time. She has been taking pantoprazole 40 mg p.o. daily. Dysphagia has been better for the most part. Past Medical History: Diagnosis Date ??? Arthritis ??? Asthma ??? Biliary dyskinesia ??? Depression ??? Diabetes mellitus ??? Difficult intravenous access VERY hard IV stick use requests ultrasound ??? Eosinophilic esophagitis ??? GERD (gastroesophageal reflux disease) ??? Headache ??? History of shingles ??? HTN (hypertension), benign 12/29/2020 ??? Hyperlipidemia Past Surgical History: Procedure Laterality Date ??? HX CARPAL TUNNEL RELEASE Right 06/11/2021 RIGHT CARPAL TUNNEL RELEASE performed by Paddy Mackey MD at [facility] OR ??? HX GASTROSCHISIS CLOSURE ??? HX RHINOPLASTY Bilateral 12/20/2020 ??? HX SURGICAL OTHER 04/2004 adhesion removed ??? HX TURBINATE RESECTION Right 12/20/2020 ??? MT ESOPHAGOGASTRODUODENOSCOPY TRANSORAL DIAGNOSTIC N/A 05/17/2019 ESOPHAGOGASTRODUODENOSCOPY performed by Jena Cerda MD at [facility] ??? MT REMOVAL GALLBLADDER N/A 11/03/2019 OPEN CHOLECYSTECTOMY performed by Gabbie Wheeler MD at [facility] Allergies Allergen Reactions ??? Tramadol Hives ??? Varenicline Anaphylaxis ??? Metronidazole Nausea and Vomiting Other reaction(s): Vomiting ??? Meperidine Swelling Current Outpatient Medications: ??? dicyclomine (BENTYL) 10 mg capsule, Take 1 Capsule (10 mg) by mouth 3 times daily., Disp: 90 Capsule, Rfl: 6 ??? pantoprazole (PROTONIX) 40 mg Tablet, Delayed Release (E.C.), Take 1 Tablet (40 mg) by mouth daily., Disp: 90 Tablet, Rfl: 4 ??? metFORMIN (GLUCOPHAGE) 1,000 mg tablet, Take 1 Tablet (1,000 mg) by mouth 2 times daily with meals., Disp: 180 Tablet, Rfl: 0 ??? fenofibrate (LOFIBRA) 160 mg Tablet, Take 1 Tablet (160 mg) by mouth daily., Disp: 90 Tablet, Rfl: 1 ??? fluticasone propionate (FLONASE) 50 mcg/spray Quentin, Suspension nasal inhaler, Use 2 sprays each nostril twice a day for 7-10 days, Disp: 16 Gram, Rfl: 0 ??? ALPRAZolam (XANAX) 0.25 mg tablet, Take 1 Tablet (0.25 mg) by mouth 2 times daily as needed forAnxiety., Disp: 15 Tablet, Rfl: 0 ??? HYDROcodone-acetaminophen (NORCO) 5-325 mg tablet, Take 1 Tablet by mouth every 4 hours as needed for Pain, Moderate. Max Daily Amount: 6 Tablets, Disp: 5 Tablet, Rfl: 0 ??? buPROPion HCL (WELLBUTRIN SR) 150 mg Sustained Release 12 hour tablet, Take 1 Tablet (150 mg) by mouth 2 times daily., Disp: 180 Tablet, Rfl: 1 ??? albuterol sulfate 90 mcg/Actuation inhaler, Take 1-2 Puffs by inhalation every 4 hours as needed for Shortness of Breath or Wheezing., Disp: 6.7 Gram, Rfl: 6 ??? sertraline (ZOLOFT) 100 mg tablet, Take 1 Tablet (100 mg) by mouth daily., Disp: 90 Tablet, Rfl: 2 ??? rosuvastatin (CRESTOR) 40 mg tablet, Take 1 Tablet (40 mg) by mouth daily at bedtime., Disp: 90Tablet, Rfl: 2 ? ? L-Norgest&E estradiol-E Estrad (Seasonique) 0.15 mg-30 mcg (84)/10 mcg (7) Tablet, Dose Pack, 3 Months, Take 1 Tablet by mouth daily., Disp: 90 Tablet, Rfl: 3 ??? lisinopriL (PRINIVIL) 10 mg tablet, Take 1 Tablet (10 mg) by mouth daily., Disp: 90 Tablet, Rfl: 3 ??? cetirizine (ZyrTEC) 10 mg tablet, Take 10 mg by mouth daily., Disp: , Rfl: Family History Problem Relation Name Age of Onset ??? Lung Cancer Father ??? Stroke Father ??? Hypertension Mother ??? High Cholesterol Mother ??? Unknown Brother ??? Unknown Maternal Grandmother ??? Unknown Maternal Grandfather ??? Diabetes Paternal Grandmother ??? Kidney Disease Paternal Grandfather ??? No Known Problems Daughter ??? No Known Problems Son ??? Colon Cancer Neg Hx ??? Celiac Disease Neg Hx ??? Inflammatory Bowel Disease Neg Hx ??? Crohn's Disease Neg Hx Social History Socioeconomic History ??? Marital status: Spouse name: Not on file ??? Number of children: 2 ??? Years of education: Not on file ??? Highest education level: Not on file Occupational History Employer: [employer] Tobacco Use ??? Smoking status: Former Smoker Packs/day: 1.00 Years: 10.00 Pack years: 10.00 Quit date: 03/02/2016 Years since quittin.6 ??? Smokeless tobacco: Never Used Vaping Use ??? Vaping Use: Never used Substance and Sexual Activity ??? Alcohol use: No ??? Drug use: No ??? Sexual activity: Yes Partners: Female control/protection: Pill Other Topics Concern ??? Other Children in Home Not Asked ??? Attends School (Grade in Comment) Not Asked ??? Pets in Home Not Asked ??? Firearms in Home Not Asked ??? Seat Belt/Child Restraint Not Asked ??? Foster Child Not Asked ??? Second Hand Smoke Exposure Not Asked ??? Lives with Biologic Parent Not Asked ??? Wears Bike Helmet Not Asked ??? Multiple Not Asked Social History Narrative ??? Not on file Social Determinants of Health Financial Resource Strain: Not on file Food Insecurity: Not on file Transportation Needs: Not on file Physical Activity: Not on file Stress: Not on file Social Connections: Not on file Intimate Partner Violence: Not on file Housing Stability: Not on file REVIEW OF SYSTEMS Review of Systems Constitutional: Negative for appetite change, chills, diaphoresis, fatigue, fever and unexpected weight change. HENT: Negative for hearing loss and trouble swallowing. Eyes: Negative for visual disturbance. Respiratory: Negative for cough and shortness of breath. Cardiovascular: Negative for chest pain, palpitations and leg swelling. Gastrointestinal: Negative for blood in stool, constipation, nausea, rectal pain and vomiting. Genitourinary: Negative for dysuria and hematuria. Musculoskeletal: Negative for arthralgias and myalgias. Skin: Negative for rash. Neurological: Negative for dizziness and weakness. Hematological: Does not bruise/bleed easily. Psychiatric/Behavioral: Negative for dysphoric mood. The patient is not nervous/anxious. Objective PHYSICAL EXAM BP (!) 141/95 (BP Location: Left arm, Patient Position (BP): Sitting, BP Cuff Size: Adult) Pulse (!) 107 Wt 113.2 kg (249 lb 9.6 oz) BMI 40.29 kg/m?? Physical Exam Vitals and nursing note reviewed. Constitutional: Appearance: Normal appearance. She is well-developed. HENT: Head: Normocephalic. Eyes: General: No scleral icterus. Neck: Thyroid: No thyromegaly. Cardiovascular: Rate and Rhythm: Normal rate. Heart sounds: Normal heart sounds. Pulmonary: Effort: Pulmonary effort is normal. No respiratory distress. Breath sounds: Normal breath sounds. Abdominal: General: Bowel sounds are normal. There is no distension. Palpations: Abdomen is soft. Abdomen is not rigid. There is no mass. Tenderness: There is no abdominal tenderness. There is no guarding or rebound. Hernia: No hernia is present. Lymphadenopathy: Cervical: No cervical adenopathy. Skin: Findings: No erythema or rash. Neurological: Mental Status: She is alert and oriented to person, place, and time. Reviewed available lab data and imaging studies. ASSESSMENT and PLAN: ICD-10-CM ICD-9-CM 1. Change in bowel habits R19.4 787.99 2. Intermittent generalized abdominal pain R10.84 789.07 dicyclomine (BENTYL) 10 mg capsule 3. Eosinophilic esophagitis K20.0 530.13 4. History of gastroschisis Z87.738 V13.67 s/p 2 surgeries at followed by last one at age 19 5. History of cholecystectomy Z90.49 V45.79 in 2019 Discussed with Lis about various possible etiologies of her symptoms including the need to ruleout celiac disease, inflammatory bowel disease, eosinophilic gastroenteritis. Continue pantoprazole 40 mg p.o. daily. Recommended trial of dicyclomine 10 mg p.o. 3 times daily for symptomatic management. Discussed about the possibility of irritable bowel syndrome, triggers. Discussed about Irritable Bowel Syndrome, triggers, trial of avoidance of triggers. Avoid IBS triggers such as dairy, caffeine, carbonated beverages, salads and raw vegetables, artificial sweeteners, fatty foods, large portions,chewing gum and chocolate. Schedule EGD and colonoscopy. TOBACCO COUNSELING She is not a tobacco user. documented in this encounter Plan of Treatment Upcoming Encounters Date Type Department Care Team (Late st Contact Info) Description 06/20/2024 9:30 AM SCHEDULING ADMINISTRATOR Office Visit [facility] Orthopedic Surgery at the [facility] [address] [place] [phone] [place] [address] [place] [phone] 10/27/2024 2:45 PM CDT Office Visit [facility] Gastroenterology [facility] [address] [place] [address] Bebo Benites MD [address] [place] [address] documented as of this encounter Visit Diagnoses Diagnosis Change in bowel habits- Primary Other symptoms involving digestive system Intermittent generalized abdominal pain Eosinophilic esophagitis History of gastroschisis History of cholecystectomy Other acquired absence of organ documented in this encounter Care Teams Network Strategist Relationship Specialty Start Date End Date Francis Pereyra MD PCP - General Family Practice 02/08/18 12/08/21 documented as of this encounter
--- OUTSIDE RECORDS SUMMARY | 2024-06-08 20:20 | XMS_ITS | Encounter Summary ---
Author Organization [facility] Address [address] [place] [address] Care Team Providers Care Die Filer Name Role Phone Francis Pereyra MD Primary Care Provider Unava ilable Reason for Visit * Reason Comments Labs Only Encounter Details Date Type Department Care Team (Latest Contact Info) Description 09/12/2021 9:00 AM CDT Clinical Support [facility] [address] [place] [address] [place] [address] Screening for condition (Primary Dx) Social History [...] COVID-19? No / Unsure 08/19/2021 11:01 AM REGIONAL MARKETING MANAGER documented as of this encounter Last Filed Vital Signs Vital Sign Reading Time Taken Comments Blood Pressure 134/86 09/12/2021 9:28 AM CDT Pulse - - Temperature - - Respiratory Rate - - Oxygen Saturation - - Inhaled Oxygen Concentration - - Weight 113.9 kg (251 lb) 09/12/2021 9:28 AM CDT Height 167.6 cm (5' 6 ) 09/12/2021 9:28 AM CDT Body Mass Index 40.51 09/12/2021 9:28 AM CDT documented in this encounter Progress Notes * Kim Gibbons - 09/12/2021 9:10 AM CDT Pt came in for blood draw, right AC successful, 1 stick, pt tolerated well. Drawn by Leona. documented in this encounter Miscellaneous Notes * Result Encounter Note - Lis Nalis FNP - 09/13/2021 11:22 AM CDT Lis- Your labs have been reviewed. > Your A1c is slightly elevated at 6.3. I would recommend increasing your metformin to 1000 mg 2x/day. Adhere to low carbohydrate diet and increase exercise. > Your lipid panel is elevated. This [...] minutes per week of moderate-intensity aerobic activity. I am going to add in another medication to help control. This will be available for you to pick [facility]. Repeat A1c in 3 months. Repeat lipid panel in 6 months. Lis Burnham NP documented in this encounter Plan of Treatment Upcoming Encounters Date Type Department Care Team (Late st Contact Info) Description 06/20/2024 9:30 AM REGIONAL MARKETING MANAGER Office Visit [facility] Surgery at the [facility] [address] [place] [address] [place] [address] [place] [address] 10/27/2024 2:45 PM CDT Office Visit [facility] G[facility] [address] [place] [address] Bebo Benites MD [address] [phone] documented as of this encounter Procedures Procedure Name Priority Date/Time Associated Diagnosis Comments CBC WITH DIFFERENTIAL Routine 09/12/2021 9:11 AM CDT Screening for condition TSH Routine 09/12/2021 9:11 AM CDT Screening for condition HEMOGLOBIN A1C Routine 09/12/2021 9:11 AM CDT Screening for condition LIPID PANEL Routine 09/12/2021 9:11 AM CDT Screening for condition COMPREHENSIVE METABOLIC PANEL Routine 09/12/2021 9:11 AM CDT Screening for condition documented in this encounter Results * (ABNORMAL) HEMOGLOBIN A1C (09/12/2021 9:11 AM CDT) HEMOGLOBIN A1C 6.3(H) <5.7 % of total Hgb [facility] Comment: For someone without known diabetes, a [...] diabetes for children. ESTIMATED AVERAGE GLUCOSE (MG/DL) 134 mg/dL [facility] ESTIMATED AVERAGE GLUCOSE (MMOL/L) 7.4 mmol/L [facility] Comment: Test Performed at: [employer] [address] ??[phone] Jose Bryant D.O., MPH Blood 09/12/2021 9:11 AM CDT 09/13/2021 3:11 AM CDT Lis Nails INFORMATION SECURITY DIRECTOR CHEMISTRY ORDE MICHELLE [facility] [address] [place] [address] * TSH (09/12/2021 9:11 AM CDT) [facility] TSH 1.60 mIU/L [facility] Comment: ?Reference Range ?> or = 20 Years ??0.40-4.50 ? Ranges ?First trimester ?0.26-2.66 ?Second trimester ?? 0.55-2.73 ?Third trimester ?0.43-2.91 Test Performed at: [employer] ??[phone] Jose Bryant D.O., MPH Blood 09/12/2021 9:11 AM CDT 09/13/2021 3:11 AM CDT Lis Nails INFORMATION SECURITY DIRECTOR CHEMISTRY DEVIKA MARTINEZ Performing Organization Address [facility]/ZIP Co de Phone Number [facility] [address] [place] [address] * (ABNORMAL) CBC WITH DIFFERENTIAL (09/12/2021 9:11 AM CDT) [facility] WBC 9.1 3.8 - 10.8 Thousand/u L [facility] RBC 4.33 3.80 - 5.10 Million/uL [facility] HEMOGLOBIN 13.1 11.7 - 15.5 g/dL [facility] HEMATOCRIT 39.2 35.0 - 45.0 % [facility] MCV 90.5 80.0 - 100.0 fL [facility] MCH 30.3 27.0 - 33.0 pg [facility] MCHC 33.4 32.0 - 36.0 g/dL [facility] RDW 13.3 11.0 - 15.0 % [facility] PLATELETS 376 140 - 400 Thousand/u L [facility] MPV 9.9 7.5 - 12.5 fL [facility] NEUTROPHIL ABSOLUTE 5,788 1,500 - 7,800 cells/uL [facility] LYMPHOCYTE ABSOLUTE 2,211 850 - 3,900 cells/uL [facility] MONOCYTE ABSOLUTE 573 200 - 950 cells/uL [facility] EOSINOPHIL ABSOLUTE 501(H) 15 - 500 cells/uL [facility] BASOPHILS ABSOLUTE 27 0 - 200 cells/uL [facility] NEUTROPHIL 63.6 % [facility] LYMPHOCYTES 24.3 % [facility] MONOCYTE 6.3 % [facility] EOSINOPHILS 5.5 % [facility] BASOPHILS 0.3 % [facility] Comment: Test Performed at: [employer] [address] [place], [place] ??[phone] Jose Bryant D.O., MPH Blood 09/12/2021 9:11 AM CDT 09/13/2021 3:11 AM CDT Lis Nails INFORMATION SECURITY DIRECTOR HEMATOLOGY ORD ERABLES [facility] [address] [place] [address] * (ABNORMAL) COMPREHENSIVE METABOLIC PANEL (09/12/2021 9:11 AM CDT) GLUCOSE 135(H) 65 - 99 mg/dL [facility] Comment: ? Fasting reference interval For someone without known diabetes, a glucose value >125 mg/dL indicates that they may have diabetes and this should be confirmed with a follow-up test. BUN 10 7 - 25 mg/dL [facility] CREATININE 0.64 0.50 - 1.10 mg/dL [facility] GFR 116 > OR = 60 mL/min/1. 73m2 [facility] GFR, 134 > OR = 60 mL/min/1. 73m2 [facility] BUN/CREAT RATIO NOT APPLICABLE 6 - 22 (calc) [facility] SODIUM 142 135 - 146 mmol/L [facility] POTASSIUM 4.2 3.5 - 5.3 mmol/L [facility] CHLORIDE 104 98 - 110 mmol/L [facility] CO2 20 20 - 32 mmol/L [facility] CALCIUM 9.5 8.6 - 10.2 mg/dL [facility] TOTAL PROTEIN 7.1 6.1 - 8.1 g/dL [facility] ALBUMIN 4.3 3.6 - 5.1 g/dL [facility] GLOBULIN 2.8 1.9 - 3.7 g/dL (calc) [facility] ALBUMIN/GLOBULI N RATIO 1.5 1.0 - 2.5 (calc) [facility] BILIRUBIN TOTAL 0.3 0.2 - 1.2 mg/dL [facility] ALKALINE PHOSPHATASE 70 31 - 125 U/L [facility] AST 36(H) 10 - 30 U/L [facility] ALT 38(H) 6 - 29 U/L [facility] Comment: Test Performed at: [employer] [facility] [id number] [place] [address], [place] ??[phone] Jose Bryant D.O., MPH Blood 09/12/2021 9:11 AM CDT 09/13/2021 3:11 AM CDT Lis Nails [facility] CHEMISTRY ORDE MICHELLE [facility] [address] [place] [address] * (ABNORMAL) LIPID PANEL (09/12/2021 9:11 AM CDT) CHOLESTEROL 202(H) <200 mg/dL [facility] HDL 56 > OR = 50 mg/dL [facility] TRIGLYCERIDE 257(H) <150 mg/dL [facility] Comment: If a non-fasting specimen was collected, consider repeat triglyceride testing on a fasting specimen if clinically indicated. Dann et al. J. of Clin. Lipidol. 2015;9:129-169. LDL CALCULATED 109(H) mg/dL (calc) [facility] Comment: Reference range: <100 Desirable range <100 mg/dL for primary prevention; ?? <70 mg/dL for patients with CHD or diabetic patients with > or = 2 CHD risk factors. LDL-C is now calculated using the Medardo calculation, which is a validated novel method providing better accuracy than the Friedewald equation in the estimation of LDL-C. Tito CORTES et al. JOSUE. 2013;310(19): 6763-2266 (http://education.BiggiFi.LiveAction/faq/JSK687) CHOL/HDL RATIO 3.6 <5.0 (calc) [facility] TOTAL NON-HDL CHOL(LDL+VLDL) 146(H) <130 mg/dL (calc) [facility] Comment: For patients with diabetes plus 1 major ASCVD risk factor, treating to a non-HDL-C goal of <100 mg/dL (LDL-C of <70 mg/dL) is considered a therapeutic option. Test Performed at: [employer] [address] [place] ??[phone] Jose Bryant D.O., MPH Blood 09/12/2021 9:11 AM CDT 09/13/2021 3:11 AM CDT Lis PEREZ CHEMISTRY DEVIKA MARTINEZ [facility] [address] [place] [address] documented in this encounter Visit Diagnoses Diagnosis Screening for condition- Primary Screening for unspecified condition documented in this encounter Care Teams Die Filer Relationship Specialty Start Date End Date Francis Pereyra MD PCP - General Family Practice 02/08/18 12/08/21 documented as of this encounter
--- OUTSIDE RECORDS SUMMARY | 2024-06-08 20:20 | XMS_ITS | Encounter Summary ---
Author Organization [facility] Address [address] [place] [address] Care Team Providers Care Electronics Manufacturer Name Role Phone Elma Magaña MD Primary Care Provider [phone] Reason for Visit * Reason Comments Follow Up 1 month follow up Encounter Details Date Type Department Care Team (Late st Contact Info) Description 03/03/2022 2:00 PM CDT Office Visit [facility] at [facility] [place] [address] [place] [address] Elma Magaña MD [address] [place] [phone] Type 2 diabetes mellitus without complication, without long-term current use of insulin (Primary Dx); Moderate episode of recurrent major depressive disorder [...] Sign Reading Time Taken Comments Blood Pressure 116/74 03/03/2022 2:08 PM CDT Pulse 89 03/03/2022 2:08 PM CDT Temperature 36.4 ??C (97.6 ??F) 03/03/2022 2:08 PM CD T Respiratory Rate 16 03/03/2022 2:08 PM CDT Oxygen Saturation 97% 03/03/2022 2:08 PM CDT Inhaled Oxygen Concentration - - Weight 107 kg (236 lb) 03/03/2022 2:08 PM CDT Height 167.6 cm (5' 6 ) 03/03/2022 2:08 PM CDT Body Mass Index 38.09 03/03/2022 2:08 PM CDT documented in this encounter Patient Instructions * Attachments The following attachments cannot be sent through Care Everywhere. * Diet: Low-FODMAP: General Info (Czech) documented in this encounter Progress Notes * Elma Magaña MD - 03/03/2022 2:25 PM CDT OFFICE VISIT PROGRESS NOTE DATE: 03/03/2022 PATIENT: Lis Phelan : 1985 PCP: Elma aMgaña MD Chief Complaint Patient presents with Follow Up 1 month follow up HISTORY OF PRESENT ILLNESS 37 yo wf here for f/u anxiety/depression. Work has been so stressful that she hasn't been able to see Radha. Her abd has been causing severe symptoms. She had colonoscopy and endoscopy. Her symptoms are upperor lower belly depending on episode. Pain is achy with sharp pains. Hurts more when she moves. Somebloating. No increase in gas or burping. She gets some decreased appetite. No foods trigger. She tried to stay away from certain foods (red meat, asparagus, sweet potatoes, or things that are stringy.) She has tried a probiotic. PAST MEDICAL HISTORY: Past Medical History: Diagnosis [...] RELEASE performed by Paddy Mackey MD at [facility] OR HX GASTROSCHISIS CLOSURE HX HAND SURGERY Right 4th digit HX RHINOPLASTY Bilateral 12/20/2020 HX SURGICAL OTHER 04/2004 adhesion removed HX TURBINATE RESECTION Right 12/20/2020 UT COLONOSCOPY FLX DX W/COLLJ SPEC WHEN PFRMD N/A 02/10/2022 checkout COLONOSCOPY performed by Bebo Benites MD at [facility] GI [facility] UT ESOPHAGOGASTRODUODENOSCOPY TRANSORAL DIAGNOSTIC N/A 05/17/2019 ESOPHAGOGASTRODUODENOSCOPY performed by Jena Cerda MD at [facility] GI [facility] UT ESOPHAGOGASTRODUODENOSCOPY TRANSORAL DIAGNOSTIC N/A 02/10/2022 checkout ESOPHAGOGASTRODUODENOSCOPY performed by Bebo Benites MD at [facility] GI [facility] UT REMOVAL GALLBLADDER N/A 11/03/2019 OPEN CHOLECYSTECTOMY performed by Gabbie Wheeler MD at [facility] OR MAIN CURRENT MEDICATIONS Current Outpatient Medications Medication Sig Dispense Refill sertraline (ZOLOFT) 100 mg tablet Take 2 Tablets (200 mg) by mouth daily. 180 Tablet 0 lisinopriL (PRINIVIL) 10 mg tablet Take 1 Tablet (10 mg) by mouth daily. 90 Tablet 0 buPROPion HCL (WELLBUTRIN SR) 150 mg Sustained Release 12 hour tablet Take 1 Tablet (150 mg) by mouth 2 times daily. 180 Tablet 0 cholecalciferol, vitamin D3, 1,000 unit Take by mouth. semaglutide (Ozempic) 0.25 mg or 0.5 mg(2 mg/1.5 mL) Pen Injector Inject 0.5 mg by subcutaneous injection every 7 days. 1.5 mL 0 Ashlyna 0.15 mg-30 mcg (84)/10 mcg (7) Tablet, Dose Pack, 3 Months Take 1 tablet by mouth once daily 91 Tablet 0 dicyclomine (BENTYL) 10 mg capsule Take 1 Capsule (10 mg) by mouth 3 times daily. 90 Capsule 6 pantoprazole (PROTONIX) 40 mg Tablet, Delayed Release (E.C.) Take 1 Tablet (40 mg) by mouth daily. 90 Tablet 4 metFORMIN (GLUCOPHAGE) 1,000 mg tablet Take 1 Tablet (1,000 mg) by mouth 2 times daily with meals. 180 Tablet 0 fenofibrate (LOFIBRA) 160 mg Tablet Take 1 Tablet (160 mg) by mouth daily. 90 Tablet 1 fluticasone propionate (FLONASE) 50 mcg/spray [place], Suspension nasal inhaler Use 2 sprays each nostril twice a day for 7-10 days 16 Gram 0 ALPRAZolam (XANAX) 0.25 mg [...] Take 10 mg by mouth daily. [DISCONTINUED] sertraline (ZOLOFT) 100 mg tablet Take 2 Tablets (200 mg) by mouth daily. 90 Tablet 0 [DISCONTINUED] buPROPion HCL (WELLBUTRIN SR) 150 mg Sustained Release 12 hour tablet Take 1 Tablet (150 mg) by mouth 2 times daily. 180 Tablet 1 [DISCONTINUED] lisinopriL (PRINIVIL) 10 mg tablet Take 1 Tablet (10 mg) by mouth daily. 90 Tablet 3 No current facility-administered medications for this visit. ALLERGIES Allergies Allergen Reactions Tramadol Hives Varenicline Anaphylaxis Metronidazole Nausea and Vomiting Other reaction(s): Vomiting Meperidine Swelling TOBACCO COUNSELING She is not a tobacco user. REVIEW OF SYSTEMS As in HPI PHYSICAL EXAMINATION BP 116/74 (BP Location: Left arm, Patient Position (BP): Sitting, BP Cuff Size: Large Adult) Pulse 89 Temp 97.6 ??F (36.4 ??C) (Tympanic) Resp 16 Ht 5' 6 (1.676 m) Wt 107 kg (236 lb) SpO2 97% BMI 38.09 kg/m?? Gen - AAO, NAD Head- normocephalic/atraumatic. Eyes - PERRL, EOMI, noninjected Ears - pinna appear normal, hearing is grossly intact. Neck - Supple, no thyroid masses. No [...] without long-term current use of insulin - HEMOGLOBIN A1C; Future - HEMOGLOBIN A1C Moderate episode of recurrent major depressive disorder - sertraline (ZOLOFT) 100 mg tablet; Take 2 Tablets (200 mg) by mouth daily. Other orders - lisinopriL (PRINIVIL) 10 mg tablet; Take 1 Tablet (10 mg) by mouth daily. - buPROPion HCL (WELLBUTRIN SR) 150 mg Sustained Release 12 hour tablet; Take 1 Tablet (150 mg) by mouth 2 times daily. PATIENT INSTRUCTIONS Trial low fodmap diet or diary or gluten elimination diet. Call GI Doctor and see what her next step would be. COntinue to work on cutting sugar and drink lots of water. Rx [employer] [facility] Mobile Sj Download from your sj store today and get started with chaz NAVARRO. Try to schedule appt with Radha. We will contact you with lab results and discuss next steps. FOLLOW UP Return in about 3 months (around 06/02/2022). Elma Magaña MD 03/03/2022 [facility] [address] [address] documented in this encounter Miscellaneous Notes * Result Encounter Note - Elma Magaña MD - 03/04/2022 12:09 PM CDT A1c is 5.7 * Patient Instructions - Elma Magaña MD - 03/03/2022 2:35 PM CDT Trial low fodmap diet or diary or gluten elimination diet. Call GI Doctor and see what her next step would be. COntinue to work on cutting sugar and drink lots of water. Rx [employer] [facility] Mobile Sj [employer] (P[employer]) offers an innovative mobile application, Rx Third Age, which includes support for wellness goals in multiple areas such as stress, anxiety, weight management, healthy eating, physical activity, and tobacco cessation. Based on cognitive behavioral therapy and mindf ulness constructs, the sj can be accessed anytime via smartphone or tablet. Interactive exercises and [id number]-[id number] relief techniques are designed for people at many different stages in their emotional and physical wellness journeys. Users wanting additional personal support and direction have the advantage of being able to connect with a PAS dance coach or counselor via voice, text or chat. What's more, PAS counselors and coaches can incorporate practice sessions on RxWell between scheduled PAS sessions and recommend using the sj for 5 - 15 minutes, two to three times each week as homework. [employer] is available to all employees and members of their household. Download from your sj store today and get started with chaz NAVARRO. Try to schedule appt with Radha. We will contact you with lab results and discuss next steps. documented in this encounter Plan of Treatment Upcoming Encounters Date Type Department Care Team (Late st Contact Info) Description 06/20/2024 9:[address] CAR INSPECTOR Office Visit [facility] Orthopedic Surgery at the [facility] [address] [place] [phone] [place] [address] [place] [address] 10/27/2024 2:45 PM CDT Office Visit [facility] Gastroenterology [facility] [address] [place] [address] Bebo Benites MD [address] [facility] [address] [place] [address] documented as of this encounter Procedures Procedure Name Priority Date/Time Associated Diagnosis Comments HEMOGLOBIN A1C Routine 03/03/2022 2:50 PM CDT Type 2 diabetes mellitus without complication, without long-term current use of insulin documented in this encounter Results * (ABNORMAL) HEMOGLOBIN A1C (03/03/2022 2:50 PM CDT) HEMOGLOBIN A1C 5.7(H) <5.7 % of total Hgb [facility] Comment: For someone without known diabetes, a [...] diabetes for children. ESTIMATED AVERAGE GLUCOSE (MG/DL) 117 mg/dL [facility] ESTIMATED AVERAGE GLUCOSE (MMOL/L) 6.5 mmol/L [facility] Comment: Test Performed at: [facility] [address] [place], [place] ??[phone] Jose Bryant D.O., MPH Blood 03/03/2022 2:50 PM CDT 03/04/2022 4:32 AM CDT Elma Magaña MD CHEMISTRY ORDERABLES [facility] [phone] [facility] [address] [place] [address] documented in this encounter Visit Diagnoses Diagnosis Type 2 diabetes mellitus without complication, without long-term current use of insulin- Primary Moderate episode of recurrent major depressive disorder documented in this encounter Additional Health Concerns Assessment Noted Time PHQ-9 Depression Total Score: 4 11/30/19 22 2:00 PM CDT documented as of this encounter Care Teams Electronics Manufacturer Relationship Specialty Start Date End Date Elma Magaña MD [address] [place] [address] PCP - General Family Practice 12/09/21 12/13/23 documented as of this encounter
--- OUTSIDE RECORDS SUMMARY | 2024-06-08 20:20 | XMS_ITS | Encounter Summary ---
Author Organization [facility] Address 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 Office Visit [facility] Orthopedic Surgery at the [facility] [address] [facility] [address] [address] [place] [address] [place] [address] [place] [address] 10/27/2024 2:45 PM CDT Office Visit [facility] Gastroenterology [facility] [address] [place] [phone] Bebo Benites MD [address] [facility] [address] [place] [address] documented as of this encounter Visit Diagnoses Not on filedocumented in this encounter Care Teams Strip Catcher Relationship Specialty Start Date End Date Francis Pereyra MD PCP - General Family Practice 02/08/18 12/08/21 documented as of this encounter
--- OUTSIDE RECORDS SUMMARY | 2024-06-08 20:20 | XMS_ITS | Encounter Summary ---
Author Organization [facility] Address [address] [place] [address] Care Team Providers Care Office Inspector Name Role Phone Elma Magaña MD Primary Care Provider Reason for Visit * Auth/Cert Specialty Diagnoses / Procedures Referred By Contact Referred To Contact Perioperative Diagnoses Change in bowel habit Eosinophilic esophagitis Gastroschisis Procedures MI ESOPHAGOGASTRODUODENOSCOPY TRANSORAL DIAGNOSTIC MI COLONOSCOPY FLX DX W/COLLJ SPEC WHEN PFRMD checkout ESOPHAGOGASTRODUODENOSCOPY checkout COLONOSCOPY [facility] [address] [place] [address] Referral ID Status Reason Start Date Expiration Date Visits Re quested Visits Authorized [id number] 1 1 Encounter Details Date Type Department Care Team (Latest Contact Info) Description 02/10/2022 2:20 PM CDT - 02/10/2022 3:00 PM CDT Surgery [facility] GI Lab S [facility] [address] [place] [address] Bebo Benites MD [address] [facility] [address] [place] [address] checkout ESOPHAGOGASTRODUODENOSCOPY Surgery Details Date/Time Status Location OR Service Patient Class Case Class Case Type Trauma Case? 02/10/2022 2:20 PM Posted [facility] GI 06 Gastroenterology Outpatient Elective No Panel 1 Procedure LRB Anes Op Region Wound Class Comments checkout ESOPHAGOGASTRODUODENOSCOPY N/A General Mout h checkout COLONOSCOPY N/A General Anus Surgeon Surgeon Role Service Panel Bebo Benites MD Primary Gastroenterolog y 1 documented in this encounter Social History [...] Sign Reading Time Taken Comments Blood Pressure 130/81 02/10/2022 1:58 PM CDT Pulse 84 02/10/2022 1:58 PM CDT Temperature 36.4 ??C (97.6 ??F) 02/10/2022 1:58 PM CD T Respiratory Rate 16 02/10/2022 1:58 PM CDT Oxygen Saturation 96% 02/10/2022 1:58 PM CDT Inhaled Oxygen Concentration - - Weight 105.7 kg (233 lb) 02/10/2022 1:44 PM CDT Height 167.6 cm (5' 6 ) 02/10/2022 1:44 PM CDT Body Mass Index 37.61 02/10/2022 1:44 PM CDT documented in this encounter Discharge Instructions * Discharge Instructions* Uziel Michel RN - 02/10/2022 3:25 PM CDT If you are active on Zollo, you will receive the biopsy results as a message via that account. If you do not have My Fnbox account, you will receive a call from my office regarding your results. If you do not hear from us about your results within a week, please contact our office at [phone] . Avoid aspirin, aleeve, ibuprofen, naproxen, motrin [...] RELEASE performed by Paddy Mackey MD at [facility] CC OR HX GASTROSCHISIS CLOSURE HX HAND SURGERY Right 4th digit HX RHINOPLASTY Bilateral 12/20/2020 HX SURGICAL OTHER 04/2004 adhesion removed HX TURBINATE RESECTION Right 12/20/2020 MI ESOPHAGOGASTRODUODENOSCOPY TRANSORAL DIAGNOSTIC N/A 05/17/2019 ESOPHAGOGASTRODUODENOSCOPY performed by Jena Cerda MD at [facility] GI LAB MI REMOVAL GALLBLADDER N/A 11/03/2019 OPEN CHOLECYSTECTOMY performed by Gabbie Wheeler MD at [facility] OR MAIN Allergies Allergen Reactions Tramadol Hives [...] Past Week fluticasone propionate (FLONASE) 50 mcg/spray Spencer, Suspension nasal inhaler Use 2 sprays each [...] 02/10/2022 3:29 PM CDTAssociated Order(s): COLONOSCOPY REPORT [facility] Endoscopy Patient [...] results. - If you are active on Zollo, you will receive the biopsy results as a message via that account. If you do not have Zollo account, you will receive a call from my office regarding your results. If you do not hear from us about your results within a week, please contact our office at [phone] . Bebo Benites MD 02/10/2022 3:29:41 PM This report has been signed electronically. Number of Addenda: [address]; [place] [address] * Bebo Benites MD - 02/10/2022 3:28 PM CDTAssociated Order(s): UPPER ENDOSCOPY REPORT [facility] Endoscopy Patient [...] results. - If you are active on Zollo, you will receive the biopsy results as a message via that account. If you do not have My Fnbox account, you will receive a call from my office regarding your results. If you do not hear from us about your results within a week, please contact our office at [phone] . Bebo Benites MD 02/10/2022 3:28:04 PM This report has been signed electronically. Number of Addenda: [address]; [place] [address] documented in this encounter OR Notes * Mi-OP - Lara Ugarte RN - 02/10/2022 1:48 PM CDT Patient/Family discussion included an explanation that: Standard practice for endoscopists at [facility] includes use of an oral bite block to facilitate upper endoscopy and to prevent you from biting onto the scope or yourself during the procedure.This bite block is placed by a [facility] procedure room nurse/bomb technician prior to the procedure. Pressure that [...] same day or prompt dental evaluation by [facility] Dental Medicine. * Mi-OP - Fabiola Gibbons RN - 01/20/2022 2:32 PM CDT Routine Pre-Anesthesia Protocol for GI Lab Procedures [facility] Approved by: [facility] - Medical Executive Committee Approval Date: 09/05/2021 ORDERS ARE ENTERED ???PER PROTOCOL?? Enter the protocol in the patient???s electronic health record using Certified Security Solutionse: .anestprotocolgilab Nursing Orders: Monitoring ??? Obtain and record vital signs on admission to [facility] ??? 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 Office Visit [facility] Orth[facility] Surgery at the [facility] [address] [facility] [place] [address] [place] [address] [place] [address] 10/27/2024 2:45 PM CDT Office Visit [facility] [address] [address] [place] [address] Bebo Benites MD [address] [facility] [place] [address] documented as of this encounter Procedures Procedure Name Priority Date/Time Associated Diagnosis Comments POC GLUCOSE Routine 02/10/2022 3:37 PM CDT COLONOSCOPY REPORT 02/10/2022 3:31 PM CDT UPPER ENDOSCOPY REPORT 3:28 PM CDT PATHOLOGY Pathology 02/10/2022 3:07 PM CDT Change in bowel habit Eosinophilic esophagitis Gastroschisis MI COLONOSCOPY FLX DX W/MYRON J SPEC WHEN PFRMD 02/10/2022 2:20 PM CDT Change in bowel habit Eosinophilic esophagitis Gastroschisis MI ESOPHAGOGASTRODUODENOSCOP Y TRANSORAL DIAGNOSTIC 02/10/2022 2:20 PM CDT Change in bowel habit Eosinophilic esophagitis Gastroschisis POC GLUCOSE Routine 02/10/2022 2:01 PM CDT POC , URINE Routine 02/10/2022 1:32 PM CDT documented in this encounter Results * POC GLUCOSE (02/10/2022 3:37 PM CDT) GLUCOSE POC 89 74 - 99 mg/dL 02/10/2022 3:37 PM CDT [facility] SPECIMEN SOURCE, GLUCOSE POC Whole Blood 02/10/2022 3:37 PM CDT [facility] Blood, whole 02/10/2022 3:37 PM CDT 02/10/2022 3:56 PM CDT Bebo Benites MD POINT OF CARE TE STING Performing Organization Address City/State/[facility] Co de Phone Number [facility]# [id number] [address] [facility] [place] [address] * COLONOSCOPY REPORT (02/10/2022 3:31 PM CDT) [...] - If you are active on My Fnbox, you will receive the biopsy results as a message via that account. If you do not have My Fnbox account, you will receive a call from my office regarding your results. If you do not hear from us about your results within a week, please contact our office at [phone] . Bebo Benites MD 02/10/2022 3:29:41 PM This report has been signed electronically. Number of Addenda: [address]; [place] [address] Bebo Benites MD GI PROCEDURE ORD ERABLES * UPPER ENDOSCOPY REPORT (02/10/2022 3:28 PM CDT) Narrative Procedure Note Bebo Benites MD - 02/10/2022 3:28 PM CDT [facility] [...] results. - If you are active on Zollo, you will receive the biopsy results as a message via that account. If you do not have My Fnbox account, you will receive a call from my office regarding your results. If you do not hear from us about your results within a week, please contact our office at [phone] . Bebo Benites MD 02/10/2022 3:28:04 PM This report has been signed electronically. Number of Addenda: [address]; [place] [address] Bebo Benites MD GI PROCEDURE ORD ERABLES * PATHOLOGY (02/10/2022 3:07 PM CDT) CASE REPORT Surgical Pathology R eport ? Case: [id number] ? Authorizing Provider: ??Bebo Benites MD ??Collected: ? 02/10/2022 03:07 PM ? Ordering Location: ? [facility] [address] ??Received: ?02/11/2022 09:01 AM ? Pathologist: ? Josiah Doe, DO ? Specimens: ?? A) - Small Intestine, ??bx ? B) - Stomach, bx ? C) - Esophagus, mid, bx ? D) - GE junction, bx ? E) - Colon, transverse, polyp ? F) - Colon, bx random ? 2 5:11 PM [facility] LookSharp (powering InternMatch) [facility] FINAL DIAGNOSIS Small bowel, duodenum, endoscopic biopsy: [...] No significant histopathologic abnormality. 2 5:11 PM [facility] Live[employer] [facility] S DESCRIPTION The specimens are received in [...] transverse colon polyp is 1 piece of arrieta tissue measuring 0.4 x 0.3 x 0.2 cm. It is entirely submitted in cassette E1. Received in the sixth container additionally labeled colon biopsy random are multiple (greater than 10) fragments of arrieta tissue ranging from 0.1 to 0.3 cm in greatest dimension. All are submitted in cassette F1. [facility] 2 5:11 PM [facility] LABORATORY SERVICES [facility] MICROSCOPIC DESCRIPTION The slides are labeled [id number] and Lis Phelan. Sections of the small [...] collagen layer is identified. 2 5:11 PM CDT [facility] OPERATIVE PROCEDURE 1: ESOPHAGOGASTRODUODENOSCOP Y 2: COLONOSCOPY 2 5:11 PM T [facility] CLINICAL INFORMATION A Small bowel Bx's. Rule out sprue (chronic diarrhea and/or Iron deficiency anemia. Small bowel Bx's. Rule out sprue (chronic diarrhea and/or Iron deficiency anemia. Change in bowel habit [R19.4] Eosinophilic esophagitis [K20.0] Gastroschisis [Q79.3] R19.4-Change in bowel habit K20.0-Eosinophilic esophagitis Q79.3-Gastroschisis 2 5:11 PM CDT [facility] COMMENT Special stain, immunohistochemical, and/or in situ hybridization results are interpreted with controls that demonstrate appropriate staining reactions. Note on use of immunohistochemistry reagents and in situ hybridization probes: These tests were developed and their performance characteristics determined by [facility], Department of Laboratory Medicine. It has not [...] part or completely in the following laboratories: [facility], [place] #[id number] [address] [place] [address] [facility], [place] #[id number] [address] [place] [address] [facility]/[place], [place] #[id number] [address] [place] [address] This report was created with the haku voice-activated dictation system. Inherent to this system is the possibility of syntax, grammar, punctuation and other errors that could impact the interpretation of the report. If there are interpretative questions about aspects of this report, please contact the performing pathologist. 5:11 PM CDT [facility] LABORATORY SERVICES - [facility] Tissue (Small Intestine) Collection [...] tis Bebo Benites MD PATHOLOGY/CYTOLO GY ORDERABLES [facility]# [id number] [address] [facility] [address] * POC GLUCOSE (02/10/2022 2:01 PM CDT) GLUCOSE POC 84 74 - 99 mg/dL 02/10/2022 2:01 PM CDT [facility] LABORATORY [facility] SPECIMEN SOURCE, GLUCOSE POC Whole Blood 02/10/2022 2:01 PM CDT [facility] LABORATORY [facility] Blood, whole 02/10/2022 2:01 PM CDT 02/10/2022 2:12 PM CDT Bebo Benites MD POINT OF CARE TE STING Performing Organization Address [facility]/ZIP Co de Phone Number [facility] LABORATORY [facility]# [id number] [address] [place] [address] * POC , URINE (02/10/2022 1:32 PM CDT) HCG QUAL URINE Negative Negative 02/10/2022 1:32 PM CDT [facility] Urine 02/10/2022 1:32 PM CDT 02/10/2022 1:35 PM CDT Bebo Benites MD POINT OF CARE TE STING Performing Organization Address [facility]/ZIP Co de Phone Number [facility] LABORATORY [facility]# [id number] [address] [place] [address] documented in this encounter Visit Diagnoses Diagnosis Change in bowel habit Eosinophilic esophagitis Gastroschisis Change in bowel habit Eosinophilic esophagitis Gastroschisis [...] documented as of this encounter Care Teams Office Inspector Relationship Specialty Start Date End Date Elma Magaña MD [address] [place] [address] PCP - General Family Practice 12/09/21 12/13/23 documented as of this encounter
--- OUTSIDE RECORDS SUMMARY | 2024-06-08 20:20 | XMS_ITS | Encounter Summary ---
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 Office Visit [facility] Orthopedic Surgery at the [facility] Medicine [address] [facility] [address] [place] [address] [place] [address] [place] [address] 10/27/2024 2:45 PM CDT Office Visit [facility] Gastroenterology [facility] [address] [facility] [address] [place] [address] Bebo Benites MD [address] [address] documented as of this encounter Visit Diagnoses Not on filedocumented in this encounter Additional Health Concerns Infection Onset Date Last Indicated Resolved Time R/O GI Pathogen 11/27/2021 11/27/2021 11/28/2021 5 :27 AM CDT documented as of this encounter Care Teams Physiology Teacher Relationship Specialty Start Date End Date Francis Pereyra MD PCP - General Family Practice 02/08/18 12/08/21 documented as of this encounter
--- OUTSIDE RECORDS SUMMARY | 2024-06-08 20:20 | XMS_ITS | Encounter Summary ---
Author Organization [facility] Address [address] [place] [address] Care Team Providers Care Run Boat Operator Name Role Phone Francis Pereyra MD Primary Care Provider Unava ilable Reason for Visit * Reason Onset Date Comments Medication Refill 08/23/2021 Encounter Details Date Type Department Care Team (Late Contact Info) Description 08/23/2021 Refill [facility] at Work [employer] [place] [address] [address] Francis Pereyra MD NO ADDRESS ON FILE ETD (Eustachian tube dysfunction), right; Moderate episode of recurrent major depressive disorder; Generalized anxiety disorder Social History Tobacco Use [...] COVID-19? 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 [address] [place] [address] Bebo Benites MD [address] [facility] [address] [place] [address] documented as of this encounter Visit Diagnoses Diagnosis ETD (Eustachian tube dysfunction), right Moderate episode of recurrent major depressive disorder Generalized anxiety disorder documented in this encounter Care Teams Run Boat Operator Relationship Specialty Start Date End Date Francis Pereyra MD PCP - General Family Practice 02/08/18 12/08/21 documented as of this encounter
--- OUTSIDE RECORDS SUMMARY | 2024-06-08 20:20 | XMS_ITS | Encounter Summary ---
Author Organization [facility] Address [address] [place] [address] Care Team Providers Care Medical Billing Assistant Name Role Phone Francis Pereyra MD Primary Care Provider Unava ilable Reason for Visit * Reason Comments Back Pain 36 y/o F arrived wit h c/o midline back pain and abd pain x 2 days. PT report some nausea but denies any vomiting. PT reports diarrhea is a all the time thing. Pt is unsure of any fever. PT denies any urinary symptoms. PT denies any loss of bowel or bladder. * Auth/Cert Specialty Diagnoses / Procedures Referred By Rodney call Referred To Contact Emergency Medicine [facility] Emergency Dept [address] [place] [address] Referral ID Status Reason Start Date Expiration Date Visits Re quested Visits Authorized [id number] 1 1 Encounter Details Date Type Department Care Team (Late st Contact Info) Description 11/27/2021 8:00 PM CDT - 11/28/2021 2:36 AM CDT Emergency [facility] Emergency Department [address] [place] [address] Chico Campos MD [address] [place] [address] Acute bilateral low back pain without sciatica (Primary Dx); Abdominal pain, unspecified abdominal location; History of gastroschisis Discharge Disposition: Home or Self Care Social [...] Sign Reading Time Taken Comments Blood Pressure 142/86 11/28/2021 1:20 AM CDT Pulse 82 11/28/2021 1:20 AM CDT Temperature 36.9 ??C (98.5 ??F) 11/27/2021 7:39 PM CD T Respiratory Rate 18 11/28/2021 1:20 AM CDT Oxygen Saturation 95% 11/28/2021 1:20 AM CDT Inhaled Oxygen Concentration - - Weight 113.4 kg (250 lb) 11/27/2021 3:05 PM CDT Height 167.6 cm (5' 6 ) 11/27/2021 3:05 PM CDT Body Mass Index 40.35 11/27/2021 3:05 PM CDT documented in this encounter Discharge Instructions * Attachments The following attachments cannot be sent through Care Everywhere. * Abdominal Pain (Armenian) * Back Pain (Armenian) * Back Pain: Urgent Symptoms (Armenian) documented in this encounter Medications at Time of Discharge Medication Sig Dispensed Refills Start Date End Date cetirizine (ZyrTEC) 10 mg tablet Take 10 mg by mouth daily. HYDROcodone-acetaminop hen (NORCO) 5-325 mg tabletIndications:Acut e bilateral low back pain without sciatica Take 1-2 Tablets by mouth every 6 hours as needed for Pain. Medication may cause sedation. Do not drive or operate dangerous machinery or perform hazardous activities. Max Daily Amount: 8 Tablets 12 Tablet 11/28/2021 12/05/2021 ondansetron (ZOFRAN) 4 mg Tablet Take 1 Tablet (4 mg) by mouth every 6 hours as needed for Nausea. 10 Tablet 11/28/2021 12/05/2021 pantoprazole (PROTONIX) 40 mg Tablet, Delayed Release (E.C.) Take 1 Tablet (40 mg) by mouth daily. 90 Tablet 4 10/23/2021 05/07/2023 metFORMIN (GLUCOPHAGE) 1,000 mg tabletIndications:Type 2 diabetes mellitus without complication, without long-term current use of insulin Take 1 Tablet (1,000 mg) by mouth 2 times daily with meals. 180 Tablet 09/13/2021 06/11/2022 buPROPion HCL (WELLBUTRIN SR) 150 mg Sustained Release 12 hour tablet Take 1 Tablet (150 mg) by mouth 2 times daily. 180 Tablet 1 06/07/2021 03/03/2022 albuterol sulfate 90 mcg/Actuation inhalerIndications:Mil d intermittent asthma without complication Take 1-2 Puffs by inhalation every 4 hours as needed for Shortness of Breath or Wheezing. 6.7 Gram 6 04/16/2021 03/07/2024 sertraline (ZOLOFT) 100 mg tablet Take 1 Tablet (100 mg) by mouth daily. 90 Tablet 2 04/16/2021 12/27/2021 rosuvastatin (CRESTOR) 40 mg tablet Take 1 Tablet (40 mg) by mouth daily at bedtime. 90 Tablet 2 04/16/2021 01/14/2023 L-Norgest&E estradiol-E Estrad (Seasonique) 0.15 mg-30 mcg (84)/10 mcg (7) Tablet, Dose Pack, 3 MonthsIndications:Enco unter for BCP initial prescription Take 1 Tablet by mouth daily. 90 Tablet 3 12/11/2020 12/05/2021 lisinopriL (PRINIVIL) 10 mg tablet Take 1 Tablet (10 mg) by mouth daily. 90 Tablet 3 12/11/2020 03/03/2022 documented as of this encounter ED Notes * Gissell Rainey RN - 11/28/2021 1:21 AM CDT Medications administered as ordered and documented on AUG. Pt resting in stretcher. Appears to be in NAD at this time. Respirations even and unlabored. Able to move freely in bed and self adjust for comfort. * Thalia Edmonds RN - 11/28/2021 1:05 AM CDT MD Omid at bedside * Gissell Rainey RN - 11/27/2021 10:03 PM CDT Chief Complaint Patient presents with ??? Back Pain 36 y/o F arrived with c/o midline back pain and abd pain x 2 days. PT report some nausea but deniesany vomiting. PT reports diarrhea is a all the time thing. Pt is unsure of any fever. PT deniesany urinary symptoms. PT denies any loss of bowel or bladder. Agree with triage note. Pt appears to be in NAD at this time. Respirations even and unlabored. Ableto move freely in bed and self adjust for comfort. * Chico Campos MD - 11/27/2021 2:25 PM CDT HISTORY OF PRESENT ILLNESS Lis Phelan, a 36 y.o. female presents to the ED with a Chief Complaint of Back Pain Subjective Documented Triage Chief Complaint: Back pain 8:10 PM: Lis Phelan is a 36 y.o. female with a history of HTN, diabetes, depression, and asthma, who presents to the Emergency Department with complaints of abdominal pain and back pain associated with nausea. The patient beginning yesterday has felt stabbing pain in the mid back and upper abdominal pain. The pain worsens with breathing, moving, and eating. She feels occasional nausea when her pain becomessevere. She has a history of chronic diarrhea with watery stool which her GI doctor (Dr. Benites) believes is related to her gallbladder having been removed (around 10/2019). Last year, she had similar episodes of pain for about 4 days. She was admitted and imaging showed a possible blockage which cleared spontaneously. She denies urinary complaints. Physician(s): Francis Pereyra MD History provided by: The patient Arrived by: Private vehicle Arrived from: Home REVIEW OF SYSTEMS Review of Systems Constitutional: Negative for chills, fatigue and fever. HENT: Negative for congestion and sore throat. Eyes: Negative for pain. Respiratory: Negative for cough, shortness of breath and stridor. Cardiovascular: Negative for chest pain. Gastrointestinal: Positive for abdominal pain, diarrhea and nausea. Negative for vomiting. Genitourinary: Negative for dysuria. Musculoskeletal: Positive for back pain. Negative for joint swelling and neck pain. Skin: Negative for rash and wound. Neurological: Negative for dizziness, syncope, weakness and headaches. Psychiatric/Behavioral: Negative for behavioral problems, confusion and suicidal ideas. PAST MEDICAL HISTORY REVIEWED MEDICAL: Patient has a past medical history of Arthritis, Asthma, Biliary dyskinesia, Depression, Diabetes mellitus, Difficult intravenous access, Eosinophilic esophagitis, GERD (gastroesophageal reflux disease), Headache, History of shingles, HTN (hypertension), benign (12/29/2020), and Hyperlipidemia. She has no past medical history of Dyspnea, History of complications due to general anesthesia, Latex sensitivity, or Obstructive sleep apnea. SURGICAL: Patient has a past surgical history that includes gastroschisis closure (); surgical other (04/2004); pr esophagogastroduodenoscopy transoral diagnostic (N/A, 05/17/2019); pr removal gallbladder(N/A, 11/03/2019); rhinoplasty (Bilateral, 12/20/2020); turbinate resection (Right, 12/20/2020); andcarpal tunnel release (Right, 06/11/2021). FAMILY: Patient's family history includes Diabetes in her paternal grandmother; High Cholesterol in her mother; Hypertension in her mother; Kidney Disease in her paternal grandfather; Lung Cancer in her father; No Known Problems in her daughter and son; Stroke in her father; Unknown in her brother, maternal grandfather, and maternal grandmother. SOCIAL: reports that she quit smoking about 5 years ago. She has a 10.00 pack-year smoking history. She hasnever used smokeless tobacco. She reports being sexually active and has had partner(s) who are female. She reports using the following method of control/protection: Pill. She reports that she does not drink alcohol and does not use drugs. No history on file. Social History Other Topics Concern ??? Other Children in [...] Helmet Not Asked ??? Multiple Not Asked ALLERGIES Tramadol, Varenicline, Metronidazole, and Meperidine HOME MEDICATIONS Discharge Medication List as of 11/28/2021 2:15 AM START taking these medications Details ondansetron (ZOFRAN) 4 mg Tablet Take 1 Tablet (4 mg) by mouth every 6 hours as needed for Nausea.,Disp-10 Tablet, R-0 CONTINUE these medications which have CHANGED Details HYDROcodone-acetaminophen (NORCO) 5-325 mg tablet Take 1-2 Tablets by mouth every 6 hours as neededfor Pain. Medication may cause sedation. Do not drive or operate dangerous machinery or perform hazardous activities. Max Daily Amount: 8 Tablets, Disp-12 Tablet, R-0 CONTINUE these medications which have NOT CHANGED Details dicyclomine (BENTYL) 10 mg capsule Take 1 Capsule (10 mg) by mouth 3 times daily., Disp-90 Capsule,R-6 pantoprazole (PROTONIX) 40 mg Tablet, Delayed Release (E.C.) Take 1 Tablet (40 mg) by mouth daily.,Disp-90 Tablet, R-4 metFORMIN (GLUCOPHAGE) 1,000 mg tablet Take 1 Tablet (1,000 mg) by mouth 2 times daily with meals.,Disp-180 Tablet, R-0 fenofibrate (LOFIBRA) 160 mg Tablet Take 1 Tablet (160 mg) by mouth daily., Disp-90 Tablet, R-1 fluticasone propionate (FLONASE) 50 mcg/spray [place], Suspension nasal inhaler Use 2 sprays each nostril twice a day for 7-10 days, Disp-16 Gram, R-0 ALPRAZolam (XANAX) 0.25 mg tablet Take 1 Tablet (0.25 mg) by mouth 2 times daily as needed for Anxiety., Disp-15 Tablet, R-0 buPROPion HCL (WELLBUTRIN SR) 150 mg Sustained Release 12 hour tablet Take 1 Tablet (150 mg) by mouth 2 times daily., Disp-180 Tablet, R-1 albuterol sulfate 90 mcg/Actuation inhaler Take 1-2 Puffs by inhalation every 4 hours as needed forShortness of Breath or Wheezing., Disp-6.7 Gram, R-6 sertraline (ZOLOFT) 100 mg tablet Take 1 Tablet (100 mg) by mouth daily., Disp- 90 Tablet, R-2 rosuvastatin (CRESTOR) 40 mg tablet Take 1 Tablet (40 mg) by mouth daily at bedtime., Disp-90 Tablet, R-2 L-Norgest&E estradiol-E Estrad (Seasonique) 0.15 mg-30 mcg (84)/10 mcg (7) Tablet, Dose Pack, 3Months Take 1 Tablet by mouth daily., Disp-90 Tablet, R-3 lisinopriL (PRINIVIL) 10 mg tablet Take 1 Tablet (10 mg) by mouth daily., Disp- 90 Tablet, R-3 cetirizine (ZyrTEC) 10 mg tablet Take 10 mg by mouth daily. Objective PHYSICAL EXAM INITIAL VS BP: (!) 163/83 (11/27/21 1505), Heart Rate: 96 bpm (11/27/21 1505), Resp: 18 (11/27/21 1505), Pulse: 96 (11/27/21 1505), Temp: 98.6 ??F (37 ??C) (11/27/21 1505), Temp src: Oral (11/27/21 1505), SpO2:99 % (11/27/21 1505), Height: 5' 6 (167.6 cm) (11/27/21 1505), Weight: 113.4 kg (250 lb) (505), BMI (Calculated): 40.37 (11/27/21 1505) No LMP recorded. (Menstrual status: Continuous BirthControl). Physical Exam Vitals and nursing note reviewed. HENT: Head: Normocephalic and atraumatic. Eyes: Conjunctiva/sclera: Conjunctivae normal. Pupils: Pupils are equal, round, and reactive to light. Cardiovascular: Rate and Rhythm: Normal rate and regular rhythm. Heart sounds: Normal heart sounds. Pulmonary: Effort: Pulmonary effort is normal. Breath sounds: Normal breath sounds. Abdominal: General: Bowel sounds are normal. There is no distension. Palpations: Abdomen is soft. Tenderness: There is abdominal tenderness in the epigastric area. There is no guarding or rebound. Comments: Mild epigastric tenderness. Musculoskeletal: General: Normal range of motion. Cervical back: Normal range of motion and neck supple. Skin: General: Skin is warm and dry. Findings: No erythema. Neurological: Mental Status: She is alert and oriented to person, place, and time. GCS: GCS eye subscore is 4. GCS verbal subscore is 5. GCS motor subscore is 6. Cranial Nerves: Cranial nerves are intact. Sensory: Sensation is intact. Motor: Motor function is intact. Coordination: Coordination is intact. Gait: Gait is intact. Deep Tendon Reflexes: Reflexes are normal and symmetric. Psychiatric: Behavior: Behavior normal. DIAGNOSTICS LAB: CBC WITH DIFFERENTIAL - Abnormal Result Value WBC 12.1 (*) RBC 3.97 HEMOGLOBIN 12.0 HEMATOCRIT 37.9 MCV 95.5 MCH 30.2 MCHC 31.7 RDW 14.0 RDW-STDEV 49.1 (*) PLATELETS 328 MPV 9.2 (*) NEUTROPHILS 60 LYMPHOCYTES 29 MONOCYTES 7 EOSINOPHILS 4 BASOPHILS 0 IMMATURE GRANULOCYTES 0 NEUTROPHIL ABSOLUTE 7.23 (*) LYMPHOCYTE ABSOLUTE 3.49 MONOCYTE ABSOLUTE 0.78 EOSINOPHIL ABSOLUTE 0.50 BASOPHILS ABSOLUTE 0.04 IMMATURE GRANULOCYTES ABSOLUTE 0.04 (*) URINALYSIS WITH REFLEX MICROSCOPIC - Abnormal COLOR UA Yellow CLARITY UA Clear SPECIFIC GRAVITY UA 1.014 PH UA 6.0 LEUKOCYTE ESTERASE UA 1+ (*) NITRITE UA Negative PROTEIN UA Negative GLUCOSE UA Negative KETONES UA Negative UROBILINOGEN UA Normal BILIRUBIN UA Negative BLOOD UA Negative WBC UA 3-5 (*) RBC UA 0-2 BACTERIA UA 1+ (*) EPITHELIAL CELLS, URINE 0-5 C-REACTIVE PROTEIN - Abnormal CRP 30.6 (*) COMPREHENSIVE METABOLIC PANEL - Normal SODIUM 138 POTASSIUM 3.6 CHLORIDE 103 CO2 22 CALCIUM 8.7 BUN 7 CREATININE 0.73 GLUCOSE 97 TOTAL PROTEIN 6.9 ALBUMIN 4.1 BILIRUBIN TOTAL 0.4 ALKALINE PHOSPHATASE 65 AST 19 ALT 23 GFR >60 ANION GAP 13 LIPASE - Normal LIPASE 17 POC , URINE - Normal HCG QUAL URINE Negative SPECIFIC GRAVITY UA POC 1.005 RADIOLOGY: CT ABDOMEN PELVIS WO CONTRAST Radiologist Impression IMPRESSION: 1. Postoperative changes. 2. Small amount of free fluid in the pelvis that appears physiologic. 3. Congenital nonrotation of the bowel. 4. Nonobstructing right intrarenal calculus. DICTATION LOCATION: Location 4 EKG: PROCEDURES Procedures MEDICAL DECISION MAKING AND PLAN OF CARE On initial evaluation, saw and examined the patient. Discussed plan to obtain imaging. Will provideupdates and fluids. Patient understands and agrees with the plan. ED provider and ED nurse verbally discussed patient plan of care at this time. 11:18 PM Patient reevaluated and remain in stable condition. Check out to Dr. Anne pending CT MDM Summary Statement: 36 yo female who presents to the emergency room complaining of abdominal pain and back pain. Lab work is unremarkable. CT unremarkable. Discharge with instructions to return if symptoms worsen or newsymptoms occur and to f/u with PCP Diagnostic Considerations: After my initial exam, I considered the following differential dx: Acute/Surgical Abdomen, IschemicBowel, Inflammatory Bowel Disease, Gastritis, PUD, Gastroenteritis, ACS, Appendicitis, Bowel Obstruction, Kidney Stone, Pyelonephritis, Diverticulitis, Ovarian Cyst, Abdominal Aortic Aneurysm, Pancrea titis, Cholecystitis, but some are unlikely due to patients description and exam. I have reviewed previous: notes I have reviewed current: labs and imaging I have reviewed nursing notes related to past medical history, social history, and review of systems and agree, unless otherwise noted. Medications Administered During the ED Stay from 11/27/2021 1425 to 11/29/2021 1219 Date/Time Order Dose Route Action 11/28/2021 0115 morphine 4 mg/mL injection 4 mg 4 mg IV Given 11/28/2021 0115 ondansetron (ZOFRAN) 4 mg/2 mL injection 4 mg 4 mg IV Given 11/28/2021 0115 ketorolac (TORADOL) injection 7.5 mg 7.5 mg IV Given Discharge Medication List as of 11/28/2021 2:15 AM START taking these medications Details ondansetron (ZOFRAN) 4 mg Tablet Take 1 Tablet (4 mg) by mouth every 6 hours as needed for Nausea.,Disp-10 Tablet, R-0 CONTINUE these medications which have CHANGED Details HYDROcodone-acetaminophen (NORCO) 5-325 mg tablet Take 1-2 Tablets by mouth every 6 hours as neededfor Pain. Medication may cause sedation. Do not drive or operate dangerous machinery or perform hazardous activities. Max Daily Amount: 8 Tablets, Disp-12 Tablet, R-0 CONTINUE these medications which have NOT CHANGED Details dicyclomine (BENTYL) 10 mg capsule Take 1 Capsule (10 mg) by mouth 3 times daily., Disp-90 Capsule,R-6 pantoprazole (PROTONIX) 40 mg Tablet, Delayed Release (E.C.) Take 1 Tablet (40 mg) by mouth daily.,Disp-90 Tablet, R-4 metFORMIN (GLUCOPHAGE) 1,000 mg tablet Take 1 Tablet (1,000 mg) by mouth 2 times daily with meals.,Disp-180 Tablet, R-0 fenofibrate (LOFIBRA) 160 mg Tablet Take 1 Tablet (160 mg) by mouth daily., Disp-90 Tablet, R-1 fluticasone propionate (FLONASE) 50 mcg/spray [place], Suspension nasal inhaler Use 2 sprays each nostril twice a day for 7-10 days, Disp-16 Gram, R-0 ALPRAZolam (XANAX) 0.25 mg tablet Take 1 Tablet (0.25 mg) by mouth 2 times daily as needed for Anxiety., Disp-15 Tablet, R-0 buPROPion HCL (WELLBUTRIN SR) 150 mg Sustained Release 12 hour tablet Take 1 Tablet (150 mg) by mouth 2 times daily., Disp-180 Tablet, R-1 albuterol sulfate 90 mcg/Actuation inhaler Take 1-2 Puffs by inhalation every 4 hours as needed forShortness of Breath or Wheezing., Disp-6.7 Gram, R-6 sertraline (ZOLOFT) 100 mg tablet Take 1 Tablet (100 mg) by mouth daily., Disp- 90 Tablet, R-2 rosuvastatin (CRESTOR) 40 mg tablet Take 1 Tablet (40 mg) by mouth daily at bedtime., Disp-90 Tablet, R-2 L-Norgest&E estradiol-E Estrad (Seasonique) 0.15 mg-30 mcg (84)/10 mcg (7) Tablet, Dose Pack, 3Months Take 1 Tablet by mouth daily., Disp-90 Tablet, R-3 lisinopriL (PRINIVIL) 10 mg tablet Take 1 Tablet (10 mg) by mouth daily., Disp- 90 Tablet, R-3 cetirizine (ZyrTEC) 10 mg tablet Take 10 mg by mouth daily. LAST VS BP: (!) 142/86 (11/28/21 0120), Heart Rate: 82 bpm (11/28/21119), Resp: 18 (11/28/21119), Pulse: 82 (11/28/21119), Temp: 98.5 ??F (36.9 ??C) (11/27/211938), Temp src: Oral (11/27/211938), SpO2: 95 % (11/28/21119) CLINICAL IMPRESSION Final diagnoses: [M54.50] Acute bilateral low back pain without sciatica (Primary) [R10.9] Abdominal pain, unspecified abdominal location [Z87.738] History of gastroschisis DISPOSITION, EDUCATION AND MEDICATION RECONCILIATION Medications reconciled. See after visit summary for patient education on discharged patients. ED Disposition ED Disposition Condition User Date/Time Comment Discharge Stable Zaid Anne MD [facility] Nov 28, 2021 2:12 AM ATTESTATION STATEMENTS This note has been prepared by Paddy Marks acting as a scribe for Dr. Chico Campos on 11/27/2021. The scribe's documentation has been prepared under my direction and personally reviewed by me, Dr. Chico Campos, in its entirety on 11/29/21 at 12:19 PM. I confirm that the note above accurately reflects all work, treatment, procedures, and medical decision making performed by me. * Zaid Anne MD - 11/27/2021 2:25 PM CDT Care of this patient was signed out to me by the off going physician, Dr. Campos. Plan was to follow-up on results of labs and imaging. Lab and imaging results are reassuring without acute specific pathology. Lab and imaging results were reviewed with the patient and symptoms improved with treatment while in the ED. She will be discharged home with a brief prescription for Valmy and Zofran. She is advised to return sooner for worsening of symptoms or any other concerns. 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 [place] [id number] [place] [id number] [place] [address] 10/27/2024 2:45 PM CDT Office Visit [facility] Gastroenterology [address] [place] [address] Bebo Benites MD [address] [place] [address] documented as of this encounter Procedures Procedure Name Priority Date/Time Associated Diagnosis Comments CT ABDOMEN PELVIS WO CONTRAST Stat 11/28/2021 12:07 AM CDT POC , URINE Stat 11/27/2021 10:18 PM CDT URINALYSIS W/REFLEX MICROSCOPIC Stat 11/27/2021 10:15 PM CDT CBC WITH DIFFERENTIAL Stat 11/27/2021 8:28 PM CDT C-REACTIVE PROTEIN Stat 11/27/2021 8: 28 PM CDT LIPASE Stat 11/27/2021 8:28 PM CDT COMPREHENSIVE METABOLIC PANEL Stat 11/27/2021 8:28 PM CDT documented in this encounter Results * CT ABDOMEN PELVIS WO CONTRAST (11/28/2021 12:07 AM CDT) Anatomical Region Laterality Modality Abdomen Computed Tomogra phy 11/28/2021 12:0 0 AM CDT Impressions 11/28/2021 12:14 AM CDT IMPRESSION: 1. Postoperative changes. 2. Small amount of free fluid in the pelvis that appears physiologic. 3. Congenital nonrotation of the bowel. 4. Nonobstructing right intrarenal calculus. DICTATION LOCATION: Location 4 Narrative 11/28/2021 12:[address] ABDOMEN AND PELVIS WITHOUT CONTRAST ?? DATE: ??11/28/2021 12:07 AM HISTORY: Abdominal pain/back pain TECHNIQUE: ?? Transaxial computed tomographic images of the abdomen and pelvis were obtained without the use of contrast. Sagittal and coronal reconstructions are performed by the technologist. ?? COMPARISON: ??Prior study dated 12/28/2020. The examination was performed with the adjustment of mA according to the patient size and/or the use of Iterative Reconstruction Technique. ?? FINDINGS: Visualized lung bases are clear. Liver and spleen demonstrate normal attenuation without focal defect. Gallbladder is surgically absent. Pancreas and adrenal glands are unremarkable. The kidneys are of normal size, shape and position. There is a nonobstructing right intrarenal calculus. Vascular calcification is present without evidence of aneurysm. Extensive postoperative changes in the upper abdomen consistent with previous bowel surgery. Uterus and adnexal structures are within normal limits with ovarian follicles on the right. Small amount of free fluid is seen in the pelvis. Bladder is unremarkable. There is evidence of congenital nonrotation of the bowel again demonstrated. The appendix is not identified. There is no evidence of appendicitis. Procedure Note Francis Galaviz MD - 11/28/2021 CT ABDOMEN AND PELVIS WITHOUT CONTRAST DATE: 11/28/2021 12:07 AM HISTORY: Abdominal pain/back pain TECHNIQUE: Transaxial computed tomographic images of the abdomen and pelvis were obtained without the use of contrast. Sagittal and coronal reconstructions are performed by the technologist. COMPARISON: Prior study dated 12/28/2020. The examination was performed with the adjustment of mA according to the patient size and/or the use of Iterative Reconstruction Technique. FINDINGS: Visualized lung bases are clear. Liver and spleen demonstrate normal attenuation without focal defect. Gallbladder is surgically absent. Pancreas and adrenal glands are unremarkable. The kidneys are of normal size, shape and position. There is a nonobstructing right intrarenal calculus. Vascular calcification is present without evidence of aneurysm. Extensive postoperative changes in the upper abdomen consistent with previous bowel surgery. Uterus and adnexal structures are within normal limits with ovarian follicles on the right. Small amount of free fluid is seen in the pelvis. Bladder is unremarkable. There is evidence of congenital nonrotation of the bowel again demonstrated. The appendix is not identified. There is no evidence of appendicitis. IMPRESSION: 1. Postoperative changes. 2. Small amount of free fluid in the pelvis that appears physiologic. 3. Congenital nonrotation of the bowel. 4. Nonobstructing right intrarenal calculus. DICTATION LOCATION: Location [address] ORDERABLES * POC , URINE (11/27/2021 10:18 PM CDT) HCG QUAL URINE Negative Negative 11/27/2021 10:18 PM CDT [facility] Reachable [facility] SPECIFIC GRAVITY UA POC 1.005 1.000 - 1.030 11/27/2021 10:18 PM CDT [facility] Reachable [facility] Urine 11/27/2021 10:1 8 PM CDT 11/27/2021 10:21 PM CDT Narrative [facility] Reachable [facility] - 11/27/2021 10:18 PM CDT Urine results may be falsely negative due to low specific gravity. Chico Campos MD POINT OF CARE TESTIN G Performing Organization Address City/State/[facility] Co de Phone Number [facility] [facility] Reachable [facility]# [id number] [address] [place], [place] [id number] * (ABNORMAL) URINALYSIS WITH REFLEX MICROSCOPIC (11/27/2021 10:15 PM CDT) COLOR UA Yellow Pale to Dark Yellow 11/27/2021 11:22 PM CDT [facility] Reachable [facility] CLARITY UA Clear Clear 11/27/2021 11:22 PM CDT [facility] Re[facility]able [facility] SPECIFIC GRAVITY UA 1.014 1.003 - 1.035 11/27/2021 11:22 PM CDT [facility] Re[facility]able [facility] PH UA 6.0 5.0 - 8.0 11/27/2021 11:22 PM CDT [facility] Re[facility]able [facility] LEUKOCYTE ESTERASE UA 1+(A) Negative 11/27/2021 11:22 PM CDT [facility] - [facility] NITRITE UA Negative Negative 11/27/2021 11:22 PM CDT [facility] - . [facility] PROTEIN UA Negative Negative 11/27/2021 11:22 PM CDT [facility] - [facility] GLUCOSE UA Negative Negative 11/27/2021 11:22 PM CDT [facility] - . [facility] KETONES UA Negative Negative 11/27/2021 11:22 PM CDT [facility] - [facility] UROBILINOGEN UA Normal <2.0 mg/dL 11:22 PM CDT [facility] BILIRUBIN UA Negative Negative 11/27/2021 11:22 PM CDT [facility] - [facility] BLOOD UA Negative Negative 11/27/2021 11:22 PM CDT [facility] - [facility] WBC UA 3-5(A) 0 - 2 /hpf 11/27/2021 11:22 PM CDT [facility] - [facility] RBC UA 0-2 0 - 2 /hpf 11/27/2021 11:22 PM CDT [facility] - [facility] BACTERIA UA 1+(A) Negative /hpf 11/27/2021 11:22 PM CDT [facility] - [facility] EPITHELIAL CELLS, URINE 0-5 0 - 5 /hpf 11/27/2021 11:22 PM CDT [facility]ORY SERVICES - [facility] Urine URINE SPECIMEN OBTAINED BY CLEAN CATCH PROCEDURE / Unknown Collection / Unknown 11/27/2021 10:15 PM CDT 11/27/2021 11:06 PM CDT Chico Campos MD URINE ORDERABLES [facility] SERVICES [facility]# [id number] [address] [facility] [place] [place] [address] * (ABNORMAL) C-REACTIVE PROTEIN (11/27/2021 8:28 PM CDT) CRP 30.6(H) <5.0 mg/L 11/27/2021 9:15 PM CDT [facility] - [facility] Blood Venipuncture / Unknown 11/27/2021 8:28 PM CDT 11/27/2021 8:36 PM CDT Chico Campos MD CHEMISTRY ORDERABLES Performing Organization Address City/[facility]/ZIP Co de Phone Number [facility] - [facility] CLIA# [id number] [address] [place] [address] * LIPASE (11/27/2021 8:28 PM CDT) LIPASE 17 13 - 60 U/L 11/27/2021 9:15 PM CDT [facility] - [facility] Blood Venipuncture / Unknown 11/27/2021 8:28 PM CDT 11/27/2021 8:36 PM CDT Chico Campos MD CHEMISTRY ORDERABLES Performing Organization Address City/[facility]/ZIP Co de Phone Number [facility] SERVICES - [facility] CLIA# [id number] [address] [place] [address] * COMPREHENSIVE METABOLIC PANEL (11/27/2021 8:28 PM CDT) SODIUM 138 136 - 145 mmol/L 11/27/2021 9:15 PM CDT [facility] - . [facility] POTASSIUM 3.6 3.5 - 5.0 mmol/L 11/27/2021 9:15 PM CDT [facility] - [facility] CHLORIDE 103 98 - 107 mmol/L 11/27/2021 9:15 PM CDT [facility] CO2 22 22 - 29 mmol/L 11/27/2021 9:15 PM CDT [facility] - [facility] CALCIUM 8.7 8.6 - 10.2 mg/dL 11/27/2021 9:15 PM CDT [facility] - [facility] BUN 7 6 - 20 mg/dL 11/27/2021 9:15 PM CDT [facility] - [facility] CREATININE 0.73 0.51 - 0.95 mg/dL 11/27/2021 9:15 PM [facility] - [facility] GLUCOSE 97 74 - 99 mg/dL 11/27/2021 9:15 PM [facility] TOTAL PROTEIN 6.9 6.7 - 8.6 g/dL 11/27/2021 9:15 PM [facility] ALBUMIN 4.1 3.5 - 5.2 g/dL 11/27/2021 9:15 PM [facility] BILIRUBIN TOTAL 0.4 0.3 - 1.2 mg/dL 11/27/2021 9:15 PM [facility] ALKALINE PHOSPHATASE 65 35 - 104 U/L 11/27/2021 9:15 PM [facility] AST 19 <33 U/L 11/27/2021 9:15 PM [facility] ALT 23 <34 U/L 11/27/2021 9:15 PM [facility] GFR >60 >=60 mL/min/1.7 3 sq meter 11/27/2021 9:15 PM [facility] Comment:eGFR calculated with 2020 CKD-EPI equation. Vegetarian diet, extremely high or low muscle mass, and may affect results. Cystatin C with Glomerular Filtration Rate is a suitable alternative for these patients. ANION GAP 13 8 - 16 mmol/L 11/27/2021 9:15 PM [facility] Blood Venipuncture / Unknown 11/27/2021 8:28 PM CDT 11/27/2021 8:36 PM T [facility] LABORATORY SERVICES [facility] - 11/27/2021 9:15 PM CDT Samples containing indocyanine green cause interferences on Total and/or Direct Bilirubin and must not be measured. Chico Campos MD CHEMISTRY ORDERABLES [facility] CLIA# [id number] [address] [facility] [place] [address] * (ABNORMAL) CBC WITH DIFFERENTIAL (11/27/2021 8:28 PM CDT) WBC 12.1(H) 4.0 - 9.8 K/uL 11/27/2021 8:46 PM CDT [facility] RBC 3.97 3.90 - 4.90 M/uL 11/27/2021 8:46 PM CDT [facility] HEMOGLOBIN 12.0 11.8 - 14.8 g/dL 11/27/2021 8:46 PM CDT [facility] HEMATOCRIT 37.9 35.5 - 44.0 % 11/27/2021 8:46 PM CDT [facility] MCV 95.5 82.0 - 99.0 fL 11/27/2021 8:46 PM CDT [facility] MCH 30.2 27.2 - 32.6 pg 11/27/2021 8:46 PM CDT [facility] MCHC 31.7 31.5 - 35.5 g/dL 11/27/2021 8:46 PM CDT [facility] RDW 14.0 11.5 - 14.5 % 11/27/2021 8:46 PM CDT [facility] RDW-STDEV 49.1(H) 37.1 - 48.7 fL 11/27/2021 8:46 PM CDT [facility] PLATELETS 328 140 - 350 K/uL 11/27/2021 8:46 PM CDT [facility] MPV 9.2(L) 9.3 - 12.4 fL 11/27/2021 8:46 PM CDT [facility] NEUTROPHILS 60 % 11/27/2021 8:46 PM CDT [facility] LYMPHOCYTES 29 % 11/27/2021 8:46 PM CDT [facility] MONOCYTES 7 % 11/27/2021 8:46 PM CDT [facility] EOSINOPHILS 4 % 11/27/2021 8:46 PM CDT [facility] BASOPHILS 0 % 11/27/2021 8:46 PM CDT [facility] - [facility] IMMATURE GRANULOCYTES 0 % 11/27/2021 8:46 PM CDT [facility] - [facility] NEUTROPHIL ABSOLUTE 7.23(H) 1.90 - 7.00 K/uL 11/27/2021 8:46 PM CDT [facility] - [facility] LYMPHOCYTE ABSOLUTE 3.49 0.70 - 4.50 K/uL 11/27/2021 8:46 PM CDT [facility] - [facility] MONOCYTE ABSOLUTE 0.78 0.10 - 1.30 K/uL 11/27/2021 8:46 PM CDT [facility] - [facility] EOSINOPHIL ABSOLUTE 0.50 0.00 - 0.70 K/uL 11/27/2021 8:46 PM CDT [facility]ORY SERVICES - [facility] BASOPHILS ABSOLUTE 0.04 0.00 - 0.20 K/uL 11/27/2021 8:46 PM CDT [facility]ATORY SERVICES - . [facility] IMMATURE GRANULOCYTES ABSOLUTE 0.04(H) 0.00 - 0.03 K/uL 11/27/2021 8:46 PM CDT [facility]ATORY SERVICES - . [facility] Blood Venipuncture / Unknown 11/27/2021 8:28 PM CDT 11/27/2021 8:36 PM CDT Chico Campos MD HEMATOLOGY ORDERABLE S [facility]ATORY SERVICES [facility]# [id number] [address] [place], [place] [address] [place] [address] documented in this encounter Visit Diagnoses Diagnosis Acute bilateral low back pain without sciatica- Primary Abdominal pain, unspecified abdominal location History of gastroschisis documented in this encounter Administered Medications Inactive Administered Medications - up to 3 most recent administrations Medication Order MAR Action Action Date Dose Rate Site dextrose 5 % in water 250 mL flush bag 25 mL 25 mL, IV, SEE ADMIN INSTRUCTIONS, Starting on Thu11/27/21 at 1825, Until Thu11/28/21 at 0436, Routine ketorolac (TORADOL) injection 7.5 mg 7.5 mg, IV, ONE TIME ONLY, 1 dose, On Crystal 11/28/21 at 0115, Routine Given 11/28/2021 1:15 AM CDT 7.5 mg morphine 4 mg/mL injection 4 mg 4 mg, IV, EVERY 2 HOURS PRN, 2 doses, Starting on Crystal 11/28/21 at 0106, Until Crystal 11/28/21 at 0436, Pain, Routine Given 11/28/2021 1:15 AM CDT 4 mg ondansetron (ZOFRAN) 4 mg/2 mL injection 4 mg 4 mg, IV, ONE TIME ONLY, 1 dose, On [place] 11/28/21 at 0115, Routine Given 11/28/2021 1:15 AM CDT 4 mg sodium chloride 0.9 % 250 mL flush bag 25 mL 25 mL, IV, SEE ADMIN INSTRUCTIONS, Starting on Thu11/27/21 at 1825, Until Thu11/28/21 at 0436, Routine sodium chloride flush injection 5 mL 5 mL, IV, EVERY 12 HOURS, First dose on Thu11/27/21 at 1830, Until Discontinued, Routine sodium chloride flush injection 5 mL 5 mL, IV, SEE ADMIN INSTRUCTIONS, Starting on Thu11/27/21 at 1825, Until Crystal 11/28/21 at 0436, Routine documented in this encounter Active and Recently Administered Medications Times are shown in CDT. Scheduled Medication Order 11/26/2021 11/27/2021 11/28/2021 dextrose 5 % in water 250 mL flush bag 25 mL 25 mL, IV, SEE ADMIN INSTRUCTIONS, Starting on Thu11/27/21 at 1825, Until Thu11/28/21 at 0436, Routine ketorolac (TORADOL) injection 7.5 mg (COMPLETED) 7.5 mg, IV, ONE TIME ONLY, 1 dose, On [place] 11/28/21 at 0115, Routine 011 (Given - Provid er: Thalia Edmonds RN) ondansetron (ZOFRAN) 4 mg/2 mL injection 4 mg (COMPLETED) 4 mg, IV, ONE TIME ONLY, 1 dose, On [place] 11/28/21 at 0115, Routine 0115 (Given - Provid er: Thalia Edmonds RN) sodium chloride 0.9 % 250 mL flush bag 25 mL 25 mL, IV, SEE ADMIN INSTRUCTIONS, Starting on Thu11/27/21 at 1825, Until Crystal 11/28/21 at 0436, Routine sodium chloride flush injection 5 mL 5 mL, IV, EVERY 12 HOURS, First dose on Thu11/27/21 at 1830, Until Discontinued, Routine 1830 (Due) sodium chloride flush injection 5 mL 5 mL, IV, SEE ADMIN INSTRUCTIONS, Starting on Thu11/27/21 at 1825, Until Crystal 11/28/21 at 0436, Routine PRN Medication Order 11/26/2021 11/27/2021 11/28/2021 morphine 4 mg/mL injection 4 mg 4 mg, IV, EVERY 2 HOURS PRN, 2 doses, Starting on Thu11/28/21 at 0106, Until Crystal 11/28/21 at 0436, Pain, Routine 0115 (Given - Provid er: Thalia Edmonds RN) documented in this encounter Additional Health Concerns Infection Onset Date Last Indicated Resolved Time R/O GI Pathogen 11/27/2021 11/27/2021 11/28/2021 5 :27 AM CDT documented as of this encounter Care Teams Medical Billing Assistant Relationship Specialty Start Date End Date Francis Pereyra MD PCP - General Family Practice 02/08/18 12/08/21 documented as of this encounter
--- OUTSIDE RECORDS SUMMARY | 2024-06-08 20:20 | XMS_ITS | Encounter Summary ---
Author Organization [facility] Address [address] Attn: [place] [address] Care Team Providers Care Tea Room Manager Name Role Phone Francis Pereyra MD Primary Care Provider Rishi georges Encounter Details Date Type Department Care Team (Latest Contact Info) Description 06/24/2021 Travel Social History Tobacco Use Types Packs/Day [...] have Coronavirus / COVID-19? No / Unsure 06/24/2021 3:55 PM FIRE EXTINGUISHER CHARGER documented as of this encounter Plan of Treatment Upcoming Encounters Date Type Department Care Team (Late st Contact Info) Description 06/20/2024 9:30 AM FIRE EXTINGUISHER CHARGER Office Visit [facility] Orthopedic Surgery at the [facility] Medicine [address] [place] [phone] [place] [address] [place] [phone] 10/27/2024 2:45 PM CDT Office Visit [facility] Gastroenterology [facility] [address] [place] [address] Bebo Benites MD [address] [address] documented as of this encounter Visit Diagnoses Not on filedocumented in this encounter Care Teams Tea Room Manager Relationship Specialty Start Date End Date Francis Pereyra MD PCP - General Family Practice 02/08/18 12/08/21 documented as of this encounter
--- OUTSIDE RECORDS SUMMARY | 2024-06-08 20:20 | XMS_ITS | Encounter Summary ---
Author Organization [facility] Address [address] Attn: [place] [address] Care Team Providers Care Control Clerk Food [employer] Beverage Name Role Phone Elma Magaña MD Primary Care Provider [phone] Encounter Details Date Type Department Care Team (Latest Contact Info) Description 02/06/2022 Travel Social History Tobacco Use Types Packs/Day [...] suspected to have Coronavirus/COVID-19? No / Unsure 02/06/2022 3:22 PM CDT documented as of this encounter Plan of Treatment Upcoming Encounters Date Type Department Care Team (Late st Contact Info) Description 06/20/2024 9:30 AM NEWS ANALYST Office Visit [facility] Orthopedic Surgery at the [facility] [address] [facility] [address] [place] [address] [place] [address] [place] [phone] 10/27/2024 2:45 PM CDT Office Visit [facility] Gastroenterology [facility] [address] [place] [address] Bebo Benites MD [address] [place] [address] documented as of this encounter Visit Diagnoses Not on filedocumented in this encounter Additional Health Concerns Assessment Noted Time PHQ-9 Depression Total Score: 4 11/30/19 22 2:00 PM CDT documented as of this encounter Care Teams Control Clerk Food And Beverage Relationship Specialty Start Date End Date Elma Magaña MD [address] [place] [id number] PCP - General Family Practice 12/09/21 12/13/23 documented as of this encounter
--- OUTSIDE RECORDS SUMMARY | 2024-06-08 20:21 | XMS_ITS | Encounter Summary ---
Author Organization [facility] Address [address] [place] [address] Care Team Providers Care Dialysis Social Worker Name Role Phone Francis Pereyra MD Primary Care Provider Unava ilable Reason for Visit * Reason Comments Abdominal Pain Periumbilical abd pa in onset 3 days ago, constant. No N/V. Loose stools. No fevers. No urinary s/s * Auth/Cert Specialty Diagnoses / Procedures Referred By Rodney call Referred To Contact [facility] [address] [place] [address] Referral ID Status Reason Start Date Expiration Date Visits Re quested Visits Authorized [id number] 1 1 Encounter Details Date Type Department Care Team (Latest Contact Info) Description 12/28/2020 2:38 PM CDT - 12/30/2020 2:50 PM CDT Hospital Encounter [facility] Neurology [address] [place] [address] Timothy Marquez MD [address] [place] [address] Nilo Snyder MD [address] [facility] [id number] [place] [address] Shobha Choi MD [address] [place] [address] Glendy Lam MD [address] [facility] [address] [address] Ileus Discharge Disposition: Home or Self Care Social [...] have Coronavirus / COVID-19? No / Unsure 12/28/2020 2:16 PM CDT documented as of this encounter Last Filed Vital Signs Vital Sign Reading Time Taken Comments Blood Pressure 128/64 12/30/2020 12:17 PM CDT Pulse 96 12/30/2020 12:17 PM CDT Temperature 37 ??C (98.6 ??F) 12/30/2020 12: 17 PM CDT Respiratory Rate 18 12/30/2020 12:1 7 PM CDT Oxygen Saturation 100% 12/30/2020 12: 17 PM CDT Inhaled Oxygen Concentration - - Weight 109.5 kg (241 lb 6.4 oz) 12/30/2020 5:00 AM CDT Height 167.6 cm (5' 6 ) 12/28/2020 8:01 PM CDT Body Mass Index 38.96 12/28/2020 8:01 PM CDT documented in this encounter Discharge Summaries * Telma Palomo NP - 12/30/2020 10:57 AM CDT [facility] Adult Hospitalist Discharge Summary Chad Phelan 35 y.o. female 1985 CSN: [id number] Date of Admission: 12/28/2020 Date of Discharge: 12/30/2020 Discharging Physician: Telma Palomo NP LOS: 2 days PCP: Francis Pereyra MD Activity: activity as tolerated. Dispo: home Diet: DIET FIBER CONTROL Code Status at Discharge: Full Code Wound Care: None needed Admitting Dx: Ileus Discharge Diagnoses: Enteritis SBO resolved Pyuria DM type II HLD Asthma GERD Major depression Discharge medications and new prescriptions: Medication List CONTINUE taking these medications albuterol sulfate 90 mcg/Actuation inhaler Take 1-2 Puffs by inhalation every 4 hours as needed for Shortness of Breath or Wheezing. Signed by: Tessa Su NP Quantity: 6.7 Gram Refills: 3 ALPRAZolam 0.25 mg tablet Commonly known as: XANAX Take 1 Tablet (0.25 mg) by mouth 2 times daily as needed for Anxiety. Signed by: Francis Pereyra MD Quantity: 15 Tablet Refills: 0 buPROPion HCL 150 mg Extended Release 24 hour tablet Commonly known as: Wellbutrin XL Take 1 Tablet (150 mg) by mouth daily in the morning. Signed by: Tessa Su NP Quantity: 90 Tablet Refills: 4 cetirizine 10 mg tablet Commonly known as: ZyrTEC Take 10 mg by mouth daily. Refills: 0 fluticasone propionate 50 mcg/spray [place], Suspension nasal inhaler Commonly known as: FLONASE Use 2 sprays each nostril twice a day for 7-10 days Signed by: Tessa Su NP Quantity: 16 Gram Refills: 0 L-Norgest&E estradiol-E Estrad 0.15 mg-30 mcg (84)/10 mcg (7) Tablet, Dose Pack, 3 Months Commonly known as: Seasonique Take 1 Tablet by mouth daily. Signed by: Cheyenne Horton NP Quantity: 90 Tablet Refills: 3 lisinopriL 10 mg tablet Commonly known as: PRINIVIL Take 1 Tablet (10 mg) by mouth daily. Signed by: Cheyenne Horton NP Quantity: 90 Tablet Refills: 3 metFORMIN 500 mg tablet Commonly known as: GLUCOPHAGE Take 1 Tablet (500 mg) by mouth 2 times daily. Signed by: Tessa Su NP Quantity: 180 Tablet Refills: 4 pantoprazole 40 mg Tablet, Delayed Release (E.C.) Commonly known as: PROTONIX Take 1 Tablet (40 mg) by mouth daily. Signed by: Tessa Su NP Quantity: 90 Tablet Refills: 4 rosuvastatin 40 mg tablet Commonly known as: CRESTOR Take 1 Tablet (40 mg) by mouth daily at bedtime. Signed by: Tessa Su NP Quantity: 90 Tablet Refills: 4 sertraline 100 mg tablet Commonly known as: ZOLOFT Take 1 Tablet (100 mg) by mouth daily. Signed by: Tessa Su NP Quantity: 90 Tablet Refills: 4 Consultants: IP CONSULT TO GENERAL SURGERY Significant Diagnostic Studies This Admission: CT abd/pelvis - Nonspecific enteritis involving primarily the proximal small [...] additional finding and no other acute process. SBFT - Packer Denture images were obtained. No dilated small or large bowel loops are identified. Oral contrast was then given and serial radiographs of the abdomen were obtained. There is rapid passage of contrast through nondilated small bowel loops with appearance in the colon by 90 minutes. It should be noted that there is no colon within the right abdomen likely related to previous surgery. The visible osseous structures are unremarkable. Labs from this Hospitalization Needing Follow Up: none Discharge Lab Data: Lab Results Component Value Date/Time WBC 6.6 12/30/2020 07:18 AM HEMOGLOBIN 11.0 (L) 12/30/2020 07:18 AM HEMATOCRIT 33.5 (L) 12/30/2020 07:18 AM PLATELETS 228 12/30/2020 07:18 AM SODIUM 137 12/30/2020 07:19 AM CHLORIDE 102 12/30/2020 07:19 AM POTASSIUM 3.7 12/30/2020 07:19 AM CO2 23 12/30/2020 07:19 AM BUN 8 12/30/2020 07:19 AM CREATININE 0.61 12/30/2020 07:19 AM GLUCOSE 117 (H) 12/30/2020 07:19 AM AST 18 12/29/2020 07:15 AM ALT 21 12/29/2020 07:15 AM Discharge Exam: BP 116/67 (BP Location: Right arm, Patient Position (BP): Supine) Pulse 81 Temp 98.2 ??F (36.8 ??C) (Oral) Resp 18 Ht 5' 6 (1.676 m) Wt 109.5 kg (241 lb 6.4 oz) SpO2 100% BMI 38.96 kg/m?? Physical Exam: General appearance alert, cooperative, no distress, appears stated age Lungs clear to auscultation bilaterally Heart regular rate and rhythm, S1, S2 normal, no murmur, click, rub or gallop Abdomen soft, non-tender. Bowel sounds normal. No masses, No organomegaly Extremities extremities normal, atraumatic, no cyanosis or edema Skin Skin color, texture, turgor normal. No rashes or lesions Hospital Course: Pt was admitted with abd pain, nausea, vomiting and diarrhea, on CT she was seen to have enteritis and possible SBO She was made NPO, evaluated by surgery and following morning underwent SBFT that showed no obstruction. She was started on CLD and slowly advanced, her abd pain mainly resolved,she was able to tolerate PO, she did have some diarrhea following SBFT but is otherwise doing well this am and will dc home. GI PCR negative felt to likely be a viral gastroenteritis. Discharge Condition: improving. Follow-up: Francis Pereyra MD in 5 day(s). More than 30 minutes minutes were spent in this discharge activity. This patient was discussed with Dr Gregory Lam and she agrees with the above plan for discharge. Signed: [facility] 12/30/2020, 10:57 AM Associated attestation - Glendy Lam MD - 12/30/2020 8:29 PM CDT [facility] Hospitalist Attending Note Patient seen and examined on 12/30/2020. Discussed plan with JANINE Robb. I have reviewed the note as transcribed and agree with the assessment and plan, with the exceptions, if any, noted below. I also performed the critical or barreto portion(s) of the service as documented below, and was directly involved in the management of the patient. Doing ok today. Tolerating PO. Having a lot of loose stools Exam: GEN Jorge SUTTON, comfortable CV - RRR no murmurs Lungs - CTAB Abd - soft/nontender Ext - no edema Data Reviewed Assessment/Plan: Possible SBO - likely due to enteritis. GI PCR panel negative. SBFT negative, lots of loose stools following. Eager to dc home. Advance diet slowly. Other issues per [employer] note Glendy Lam MD [facility] Hospitalist documented in this encounter Discharge Instructions * Discharge Instructions* Telma Palomo NP - 12/30/2020 10:57 AM CDT Your discharging physician is Telma aPlomo NP and may be reached at [phone] for any questions or concerns until you see your doctor. FOLLOW-UP Follow up with Francis Pereyra MD in 5 day(s). Prescriptions given? No SIGNS AND SYMPTOMS TO REPORT Contact your health care provider if you experience any of the following symptoms: increased dizziness or lightheadedness, shortness of breath or difficulty breathing or unable to keep food or fluidsdown or any other concerning symptoms. Heart Patients: Weigh yourself everyday at the same time, with the same amount of clothing and after you have emptied your bladder. Keep a log of your daily weights and bring them with you to your physician appointments. Call your physician (*) if you have a weight gain of 3 pounds in one day (or 5pounds in 2+ days) or (*) if you have increased shortness of breath or (*) if you have swelling in your feet, belly or legs. <<<Call 911 or go to the nearest emergency room if you have increased shortness of breath or chest pain or discomfort that is not relieved by nitroglycerin. Smoking Exposure: [facility] encourages all patients to decrease risks associated with smoking and second hand smoke exposure. If you smoke you are advised to quit. Ask your health care provider for advice if you need assistance to stop smoking. Avoid second-hand smoke exposure and do not let people smoke in your home. Please call [phone], our pulmonary rehabilitation department, to learn more about options to reduce your risks. ACTIVITY Your activity level is: increase activity as tolerated and no smoking. DIET Your diet is: DIET FIBER CONTROL WOUND CARE For your wound/incision: none needed. documented in this encounter Medications at Time of Discharge Medication Sig Dispensed Refills Start Date End Date cetirizine (ZyrTEC) 10 mg tablet Take 10 mg by mouth daily. L-Norgest&E estradiol-E Estrad (Seasonique) 0.15 mg-30 mcg (84)/10 mcg (7) Tablet, Dose Pack, 3 MonthsIndications:Enco unter for BCP initial prescription Take 1 Tablet by mouth daily. 90 Tablet 3 12/11/2020 12/05/2021 lisinopriL (PRINIVIL) 10 mg tablet Take 1 Tablet (10 mg) by mouth daily. 90 Tablet 3 12/11/2020 03/03/2022 metFORMIN (GLUCOPHAGE) 500 mg tablet Take 1 Tablet (500 mg) by mouth 2 times daily. 180 Tablet 4 07/20/2020 08/23/2021 sertraline (ZOLOFT) 100 mg tablet Take 1 Tablet (100 mg) by mouth daily. 90 Tablet 4 07/20/2020 04/16/2021 buPROPion HCL (Wellbutrin XL) 150 mg Extended Release 24 hour tabletIndications:Mode rate episode of recurrent major depressive disorder,Generalized anxiety disorder Take 1 Tablet (150 mg) by mouth daily in the morning. 90 Tablet 4 07/20/2020 04/16/2021 fluticasone propionate (FLONASE) 50 mcg/spray [place], Suspension nasal inhalerIndications:ETD (Eustachian tube dysfunction), right Use 2 sprays each nostril twice a day for 7-10 days 16 Gram 07/20/2020 08/23/2021 rosuvastatin (CRESTOR) 40 mg tablet Take 1 Tablet (40 mg) by mouth daily at bedtime. 90 Tablet 4 07/20/2020 04/16/2021 albuterol HFA 90 mcg inhalerIndications:Mil d intermittent asthma without complication Take 1-2 Puffs by inhalation every 4 hours as needed for Shortness of Breath or Wheezing. 6.7 Gram 3 07/20/2020 04/16/2021 pantoprazole (PROTONIX) 40 mg Tablet, Delayed Release (E.C.) Take 1 Tablet (40 mg) by mouth daily. 90 Tablet 4 07/20/2020 10/23/2021 ALPRAZolam (XANAX) 0.25 mg tabletIndications:Mode rate episode of recurrent major depressive disorder,Generalized anxiety disorder Take 1 Tablet (0.25 mg) by mouth 2 times daily as needed for Anxiety. 15 Tablet 08/29/2019 03/07/2021 documented as of this encounter Progress Notes * Deanne Jerry LPN - 12/30/2020 2:50 PM CDT Patient discharging home. Paperwork went over at bedside with patient. All questions answered at this time. IV d/c'd per protocol. Patient leaving in good disposition. * Sanjuana Wong PA - 12/29/2020 9:45 PM CDT [facility] CROSS COVER NOTE 12/29/20 9:45 PM Contacted for: Patient is wondering if she can take PO pain medication instead of IV. Pain is now 3- 5/10 .No N/V/D . Tolerated clear liquids . Abdomen soft no tenderness to the touch active x4. Vitals: 12/29/202044 BP: 122/71 Pulse: 74 Resp: 16 Temp: 98.6 ??F (37 ??C) SpO2: 100% Intervention/Follow up/Discussion: Chart reviewed. Pt admitted with enteritis and possible SBO. Will dc IV morphine and start [place] 5-325 for pain. JOHN Herrmann * Telma Palomo NP - 12/29/2020 11:38 AM CDT [facility] Adult Hospitalist Progress Note Admit Date: 12/28/2020 Date of Note: 12/29/2020, 11:38 AM LOS: 1 day Previous history of present illness and review of systems have been reviewed today as documented inthe H&P on 12/28/2020; medications, labs, studies, notes, orders and consults have been reviewed.I have reviewed the notes from yesterday. Subjective: Pt denies any further diarrhea since admission, still with abdominal pain no nausea or vomiting Objective: BP 103/56 (BP Location: Right arm, Patient Position (BP): Supine) Pulse 84 Temp 98.6 ??F (37 ??C) (Oral) Resp 18 Ht 5' 6 (1.676 m) Wt 109.3 kg (240 lb 14.4 oz) SpO2 98% BMI 38.88 kg/m?? Temp (24hrs), Av.5 ??F (36.9 ??C), Min:97.7 ??F (36.5 ??C), Max:99.4 ??F (37.4 ??C) Exam: Gen Head alert, cooperative, no distress, appears stated age Normocephalic, atraumatic Lungs clear to auscultation bilaterally, respirations even nonlabored Heart regular rate and rhythm, S1, S2 normal, no murmur, click, rub or gallop Abdomen soft, tender throughout, bowel sounds present but hypoactive Extremities extremities normal, atraumatic, no cyanosis or edema Pulses Radial and DP 2+ and symmetric Neuro Skin Alert and oriented x 3, CN II-XII grossly intact nonfocal No rash or lesions noted, pink warm and dry Data Base: I have reviewed all new labs and studies resulted and pertinent ones are noted below WBC 9.5, Hgb 11.6, BUN 10 Cr 0.70 Assessment/Plan of Actively Managed Problems 1. Enteritis - noted on CT, possible viral in etiology, start PO diet and monitor, GI PCR still pending, may benefit from GI follow up with chronic diarrhea 2. Possible SBO - small bowel follow through with no obstruction, will start clears and slowly advance 3. Pyuria - contaminated sample, urine culture pending 4. DM type II - hold oral metformin 5. HLD - cont statin 6. Asthma - flonase, zyrtec, prn albuterol 7. HTN - BP controlled, hold lisinopril 8. GERD - cont PPI 9. Major depression - cont zoloft and wellbutrin DVT Prophylaxis - Enoxaparin Rolle catheter:absent Lines: Peripheral IV PT/OT:yes Current Code Status -Full Code Plan discussed with patient, questions answered. Current Planned Disposition - home once tolerating PO in am Stable/Resolved Issues/Follow Up Needs This patient was discussed with Dr Gregory Lam and she agrees with the above plan. Telma Palomo [facility] Adult Hospitalist * Elo Stokes RN - 12/29/2020 5:53 AM CDT ?UNDRESS AND ASSESS FOR ALL ADMISSIONS AND TRANSFERS: Remove all existing dressings and assess all wounds upon admission (unless instructed by physician). Undress and Assess performed by: bedside coworker SATURNINO Gasca and bedside coworker Carla Wei on admission to [place] [address] Juan Score: Juan Score: 21 (12/28/201934) 1. Patient does not have skin breakdown. ??? If yes o Description of wound location and appearance: o LDA added for any open areas and for non-blanching pink/red or purple areas? No (please note, heels, ankles, knees, hips, sacrum, coccyx, ischium, gluteal, occiput, spine and all skin folds are high risk for skin breakdown) and consult wound care services 2. Was wound photographed: No 3. Is a specialty support surface utilized? No If yes, which one?: No i.e. impaired mobility, bariatric, malnourished, existing pressure injury. 4. Is the patient a paraplegic/quadriplegic? No If so, if stable spine immediately place on specialty surface. If unstable spine or new spinal injury, consult physician (per facility process) and consult wound care services. 5. Is a center medical director in place?no If yes, remove device/brace/splint to check skin underneath, obtain provider order if necessary. 6. Does the patient have a wound VAC (negative pressure wound therapy)? No If yes, please consult wound care services and follow facility process. 7. Does the patient have an ostomy? No If yes, please consult wound care services. 8. Was the Skin Care Prevention: Pressure Injury Pathway initiated and appropriate interventions selected? (i.e. protective foams, turn patient q 2 h, elevate heels etc.) No 9. Was the Skin Care Treatment: Pressure Injury/Lower Extremity Ulcer Pathway initiated, and appropriate interventions selected? No(i.e. cleanse and apply silicone border dressing to skin tears, cleanse and apply antifungal to affected skin folds and apply soft linen or Interdry between folds etc.). Wound care consult was not initiated. [facility] Skin Care Injury Prevention and Treatment Protocol [facility] Approved by: [facility] - Medical Executive Committee Approval Date: 07/07/2019 ORDERS ARE ENTERED ???PER PROTOCOL?? Nursing Orders: o When a patient age 18 years or older has: ; a documented Juan score of 18 or less or a Juan sub score of 2 or 1, ; or a documented condition on the problem list of: diabetes, malnutrition or cachectic, paralysis,spinal cord disorder/injuries or muscle/neurological disease, THEN, the RN will order the Skin Care/Pressure Injury Prevention Pathway and initiate all appropriate interventions as per the Juan Risk Assessment Algorithm. o When a patient age 18 years or older has a wound requiring treatment, the RN and Wound Care Nurses may order the Skin Care/Pressure Ulcer/Lower Extremity Ulcer Treatment Pathway and use appropriatetreatments found in the Nursing Algorithm. o The Wound Care Nurse may also order treatments found in the Wound Care Algorithm. * Cathy Troncoso MD - 12/29/2020 5:12 AM CDT Images from the original note were not included. DATE: 12/29/2020 NAME: Chad Phelan : 1985 CSN: [id number] [facility] General Surgery Progress Note Last 24 hours: No acute events overnight. Refused NG overnight, denies nausea and had no emesis. Passing large amounts of gas. Pain is significantly decreased this AM. ASSESSMENT/PLAN: 27yF with hx of gastrochisis, extensive SANDRO at 19y of age, recent open cholecystectomy that was complicated by SB injury requiring SBR (11/02/20). She presented with 3d hx of constant mid abd pain associated with N/V. Imaging showed concerns for enteritis and possible ileus vs SBO. Now with clinical resolution of her ileus vs SBO picture. SBFT reviewed. No Evidence of obstruction. Will give clears ADAT No further surgical intervention Discussed with attending physician, Dr. Harris. See orders. I have reviewed this patient's history and physical, family history, acute and chronic diagnoses, all pertinent notes, vitals, labs, medications and images during my development of the above assessment and plan. I discussed case with Dr. Hinojosa. Sarah Manzo MD, 12/29/2020 5:12 AM TACS Resident On-Call Pager [phone].TACS TACS Attending On-Call - please refer to Trauma and Acute Care Surgery (TACS) page on [employer] website Cathy Troncoso MD PGY 4 [facility] Department of Surgery 12/29/20 TACS Resident On-Call Pager [phone].[facility] TACS Attending On-Call - please refer to Trauma and Acute Care Surgery (TACS) page on [employer] website Admit Date: 12/28/2020 LOS: 1 day Operations/Procedures Course: ?? none SUBJECTIVE: Chief Complaint Patient presents with ??? Abdominal Pain Periumbilical abd pain onset 3 days ago, constant. No N/V. Loose stools. No fevers. No urinary s/s Active Hospital Problems Diagnosis ??? Infectious gastroenteritis ??? HTN (hypertension), benign ??? GERD (gastroesophageal reflux disease) ??? Major depression ??? Ileus ??? History of gastroschisis ??? Type 2 diabetes mellitus without complication, without long-term current use of insulin ??? Hyperlipidemia ??? Asthma Resolved Hospital Problems No resolved problems to display. HPI: Chad Phelan is a 35 y.o. female with extensive abdominal surgical hx that presents with constant mid abdominal pain (x3d) now associated with N/V. She reports last BM was several days ago butdenies diarrhea. Denies any fever/chills. hx of gastrochisis, extensive SANDRO at 19y of age, recent open cholecystectomy that was complicated by SB injury requiring SBR (11/02/20). Allergies Allergen Reactions ??? Tramadol Hives ??? Varenicline Anaphylaxis ??? Metronidazole Nausea and Vomiting Other reaction(s): Vomiting ??? Meperidine Swelling Scheduled Medications: naloxone, 0.1 mg, see admin instructions [Held by Provider] buPROPion HCL, 150 mg, daily EARLY [Held by Provider] cetirizine, 10 mg, daily fluticasone propionate, 2 [place], daily [Held by Provider] lisinopriL, 10 mg, daily [Held by Provider] pantoprazole, 40 mg, daily [Held by Provider] rosuvastatin, 40 mg, daily BEDTIME [Held by Provider] sertraline, 100 mg, daily [Held by Provider] docusate sodium, 100 mg, BID IV Medications: sodium chloride 0.9%, Last Rate: 100 mL/hr at 12/29/20 0119 PRN Medications: morphine, 4 mg, every 4 hours PRN [Held by Provider] ALPRAZolam, 0.25 mg, BID PRN ondansetron, 4 mg, every 6 hours PRN bisacodyL, 10 mg, daily PRN aluminum - magnesium - simethicone, 30 mL, every 2 hours PRN metoclopramide, 10 mg, every 6 hours PRN albuterol, 2.5 mg, resp, every 6 hours PRN Past Medical History: Diagnosis Date ??? Arthritis ??? Asthma ??? Biliary dyskinesia ??? Depression ??? Diabetes mellitus ??? Difficult intravenous access VERY hard IV stick use requests ultrasound ??? Eosinophilic esophagitis ??? GERD (gastroesophageal reflux disease) ??? Headache ??? History of shingles ??? HTN (hypertension), benign 12/29/2020 ??? Hyperlipidemia Past Surgical History: Procedure Laterality Date ??? HX GASTROSCHISIS CLOSURE ??? HX RHINOPLASTY Bilateral 12/20/2020 ??? HX SURGICAL OTHER 04/2004 adhesion removed ??? HX TURBINATE RESECTION Right 12/20/2020 ??? [place] ESOPHAGOGASTRODUODENOSCOPY TRANSORAL DIAGNOSTIC N/A 05/17/2019 ESOPHAGOGASTRODUODENOSCOPY performed by Jena Cerda MD at [facility] ??? IL REMOVAL GALLBLADDER N/A 11/03/2019 OPEN CHOLECYSTECTOMY performed by Gabbie Wheeler MD at [facility] OR MAIN Family History Problem Relation Name Age of Onset ??? Lung Cancer Father ??? Stroke Father ??? Hypertension Mother ??? High Cholesterol Mother ??? Unknown Brother ??? Unknown Maternal Grandmother ??? Unknown Maternal Grandfather ??? Diabetes Paternal Grandmother ??? Kidney Disease Paternal Grandfather ??? No Known Problems Daughter ??? No Known Problems Son ??? Colon Cancer Neg Hx Social History Socioeconomic History ??? Marital status: Spouse name: Not on file ??? Number of children: 2 ??? Years of education: Not on file ??? Highest education level: Not on file Occupational History Employer: [employer] Tobacco Use ??? Smoking status: Former Smoker Packs/day: 1.00 Years: 10.00 Pack years: 10.00 Quit date: 03/02/2016 Years since quittin.8 ??? Smokeless tobacco: Never Used Vaping Use ??? Vaping Use: Never used Substance and Sexual Activity ??? Alcohol use: No ??? Drug use: No ??? Sexual activity: Yes Partners: Female control/protection: Pill Other Topics Concern ??? Not on file Social History Narrative ??? Not on file Social Determinants of Health Financial Resource Strain: ??? Difficulty of Paying Living Expenses: Food Insecurity: ??? Worried About Running Out of Food in the Last Year: ??? Ran Out of Food in the Last Year: Transportation Needs: ??? Lack of Transportation (Medical): ??? Lack of Transportation (Non-Medical): Physical Activity: ??? Days of Exercise per Week: ??? Minutes of Exercise per Session: Stress: ??? Feeling of Stress : Social Connections: ??? Frequency of Communication with Friends and Family: ??? Frequency of Social Gatherings with Friends and Family: ??? Attends [employer] Services: ??? Active Member of Clubs or Organizations: ??? Attends Club or Organization Meetings: ??? Marital Status: Intimate Partner Violence: ??? Fear of Current or Ex-Partner: ??? Emotionally Abused: ??? Physically Abused: ??? Sexually Abused: Review of Systems: Review of Systems Constitutional: Negative. HENT: Negative. Eyes: Negative. Respiratory: Negative. Cardiovascular: Negative. Gastrointestinal: Negative for abdominal pain, blood in stool, constipation, diarrhea, melena, nausea and vomiting. Genitourinary: Negative. Musculoskeletal: Negative. Skin: Negative. Endo/Heme/Allergies: Negative. Psychiatric/Behavioral: Negative. OBJECTIVE: BP 105/59 (BP Location: Right arm, Patient Position (BP): Supine) Pulse 84 Temp 98.5 ??F (36.9 ??C) (Oral) Resp 18 Ht 5' 6 (1.676 m) Wt 109.3 kg (240 lb 14.4 oz) SpO2 97% BMI 38.88 kg/m?? BP Min: 105/59 Max: 138/95 Temp Av.5 ??F (36.9 ??C) Min: 97.7 ??F (36.5 ??C) Max: 99.4 ??F (37.4 ??C) Pulse Av.7 Min: 84 Max: 123 Resp Av.7 Min: 17 Max: 18 SpO2 Av.2 % Min: 95 % Max: 99 % Height Av' 6 (167.6 cm) Min: 5' 6 (167.6 cm) Max: 5' 6 (167.6 cm) Weight Av.3 kg (240 lb 15.2 oz) Min: 109.3 kg (240 lb 14.4 oz) Max: 109.3 kg (241 lb) No intake or output data in the 24 hours ending 12/29/20 0512 Output by Drain (mL) 12/27/20699 - 12/27/20 18512/27/201899 - 12/28/20 0659 12/28/20 07 - 12/28/20 1859 12/28/20 190 - 12/29/20 0512 Patient has no LDAs of requested type attached. Physical Exam: Gen alert, in no distress Neuro Grossly normal HEENT Normal Heart regular rate and rhythm, S1, S2 normal, no murmur, click, rub or gallop Lungs clear to auscultation bilaterally, normal respiratory effort Abdomen Soft, obese, non-tender. Bowel sounds normal. No masses, no organomegaly. Extremities intact distal pulses, moves all extremities equally, no edema, redness or tenderness inthe calves or thighs Skin Skin color, texture, turgor normal. No rashes or lesions Other Labs/Imaging: Most recent CBC results: Recent Labs 12/28/20 1542 WBC 15.3* HGB 14.7 HCT 44.0 PLT 387* Most recent BMP results: Recent Labs 12/28/20 1540 12/28/20 1542 NA -- 137 CL -- 104 CO2 -- 19* BUN -- 12 CREAT 0.60 0.57 GLUCOSE -- 129* CA -- 9.8 Most recent LFT results: Recent Labs 12/28/20 1542 TOTALPROTEIN 8.5 ALBUMIN 4.4 BILITOTAL 0.5 AST 39* ALT 26 LIPASE 23 Most recent Coagulation results: No results for input(s): PT, INR in the last 72 hours. Invalid input(s): PTT Most recent ABG results: No results for input(s): PH, PHARTERIAL, PCO2, GNH3JVH, PO2, PO2ART, HCO3, YRE9TYR, BASEEXCESS, SO2, PUNCSITE in the last 72 hours. Most recent Accucheck results: Lab Results Component Value Date/Time POC GLUCOSE 123 (H) 11/08/2019 07:51 AM POC GLUCOSE 117 (H) 11/07/2019 10:45 PM POC GLUCOSE 94 11/07/2019 06:15 PM POC GLUCOSE 102 (H) 11/07/2019 01:54 PM POC GLUCOSE 94 11/07/2019 07:28 AM POC GLUCOSE 82 11/07/2019 05:[address]: IMPRESSION: Nonspecific enteritis involving primarily the proximal [...] additional finding and no other acute process. I personally reviewed all images. Sarah Manzo MD Associated attestation - Masood Hinojosa MD - 12/30/2020 9:55 AM CDT LATE ENTRY: PATIENT SEEN 12/29/20 I personally saw and examined the patient. My findings coincide with those of the nursing surgical services director I reviewed the pertinent labs, imaging, and data. I agree with the below findings, assessment, and plan. I certify that I have independently seen and examined this patient, reviewed the labs, xrays, and evaluated the [employer] sales consultant's notes and agree with the below assessment. I have spent no less than 30 minutes involved in the care and evaluation of the patient. I agree with the medical decision making of the nursing surgical services director which I personally reviewed and supervised. Specifically, I personally counseled the patient on the plan for the day and and: 27yF with hx of gastrochisis, extensive SANDRO at 19y of age, recent open cholecystectomy that was complicated by SB injury requiring SBR (11/02/20). She presented with 3d hx of constant mid abd pain associated with N/V. Imaging showed concerns for enteritis and possible ileus vs SBO. Now with clinical resolution of her ileus vs SBO picture. SBFT reviewed. No Evidence of obstruction. Will give clears ADAT No further surgical intervention * Elo Stoeks RN - 12/28/2020 10:35 PM CDT Patient admitted to Neuro floor Room 3346 . Alert oriented x 4. While NG placement discussed at 1940 , she reported she does not want any of that being put in due to she just had a Bilateral rhinoplasty and turbinectomy on December 20, 2020. She also indicated she still having occasional bleed and some tenderness to the nasal passages. Messaged job service consultant hospital and recommendation to reach out with theon call General surgery . Call placed to attending job service consultant . Wait for the call back at this Time. Charge nurse made aware. documented in this encounter H&P Notes * Zaid Dunn NP - 12/29/2020 1:04 AM CDT [facility] Adult Hospitalist Admission H & P Patient Name: Chad Phelan Primary Care Doctor: Francis Pereyra MD Chief Complaint: Abdominal Pain HPI: Patient is a 35 y.o. female HLD, T2DM, history of gastroschisis, HTN who presented to the emergencydepartment today complaining of mid umbilical abdominal pain. She reports her abdominal pain started approximately 3 days ago and described as sharp/stabbing, is constant but worsens intermittently with no known aggravating factors. She reports that over the last 24 hours she has lost her appetite and is now having nausea/vomiting. Of note patient has extensive GI history including several surgeries most recently an open cholecystectomy in October of last year which was complicated by a small bowelinjury and subsequent repair. While in the emergency department, her lab work revealed a leukocytosis of 15.3. A CT abdomen pelvis was obtained which was remarkable for nonspecific enteritis involving primarily the proximal smallbowel level and ileus may also be present earlier partial small bowel obstruction is not excluded. General surgery was consulted with recommendations for an NG tube placement as well as plans for admission and a small bowel follow-through. She will be admitted to the hospitalist team for further work-up and evaluation. Patient seen today lying in bed in no apparent distress. She reports mild nausea but no vomiting. She notes that prior to arrival she has been taking Tylenol/ibuprofen and an old prescription for Percocet for treatment of her pain but notes that these do not help her. She reports that she is still passing gas she is able to eat food and drink liquids. She does report loose stools but notes this is chronic. She reports one episode of emesis approximately 1 hour prior to arrival, but has not had any since. An NG tube was recommended for this patient but she is refusing related to her bilateral rhinoplasty which she had earlier this year. She has no chest pain or shortness of breath. She has no other complaints at this time. She denies any sick contacts or recent travel. Plan of care reviewed with patient she is agreeable. All questions concerns were addressed at this time. Past Medical History: Diagnosis Date ??? Arthritis ??? Asthma ??? Biliary dyskinesia ??? Depression ??? Diabetes mellitus ??? Difficult intravenous access VERY hard IV stick use requests ultrasound ??? Eosinophilic esophagitis ??? GERD (gastroesophageal reflux disease) ??? Headache ??? History of shingles ??? Hyperlipidemia Past Surgical History: Procedure Laterality Date ??? HX GASTROSCHISIS CLOSURE ??? HX RHINOPLASTY Bilateral 12/20/2020 ??? HX SURGICAL OTHER 04/2004 adhesion removed ??? HX TURBINATE RESECTION Right 12/20/2020 ??? IL ESOPHAGOGASTRODUODENOSCOPY TRANSORAL DIAGNOSTIC N/A 05/17/2019 ESOPHAGOGASTRODUODENOSCOPY performed by Jena Cerda MD at [facility] ??? IL REMOVAL GALLBLADDER N/A 11/03/2019 OPEN CHOLECYSTECTOMY performed by Gabbie Wheeler MD at [facility] OR MAIN Current Medications: Outpatient Medications Marked as Taking for the 12/28/20 encounter (Hospital Encounter) Medication Sig Dispense Refill ? ? L-Norgest&E estradiol-E Estrad (Seasonique) 0.15 mg-30 mcg (84)/10 mcg (7) Tablet, Dose Pack, 3 Months Take 1 Tablet by mouth daily. 90 Tablet 3 ??? lisinopriL (PRINIVIL) 10 mg tablet Take 1 Tablet (10 mg) by mouth daily. 90 Tablet 3 ??? metFORMIN (GLUCOPHAGE) 500 mg tablet Take 1 Tablet (500 mg) by mouth 2 times daily. 180 Tablet 4 ??? sertraline (ZOLOFT) 100 mg tablet Take 1 Tablet (100 mg) by mouth daily. 90 Tablet 4 ??? buPROPion HCL (Wellbutrin XL) 150 mg Extended Release 24 hour tablet Take 1 Tablet (150 mg) by mouth daily in the morning. 90 Tablet 4 ??? rosuvastatin (CRESTOR) 40 mg tablet Take 1 Tablet (40 mg) by mouth daily at bedtime. 90 Tablet 4 ??? pantoprazole (PROTONIX) 40 mg Tablet, Delayed Release (E.C.) Take 1 Tablet (40 mg) by mouth daily. 90 Tablet 4 ??? cetirizine (ZyrTEC) 10 mg tablet Take 10 mg by mouth daily. Allergies Allergen Reactions ??? Tramadol Hives ??? Varenicline Anaphylaxis ??? Metronidazole Nausea and Vomiting Other reaction(s): Vomiting ??? Meperidine Swelling Family History Problem Relation Name Age of Onset ??? Lung Cancer Father ??? Stroke Father ??? Hypertension Mother ??? High Cholesterol Mother ??? Unknown Brother ??? Unknown Maternal Grandmother ??? Unknown Maternal Grandfather ??? Diabetes Paternal Grandmother ??? Kidney Disease Paternal Grandfather ??? No Known Problems Daughter ??? No Known Problems Son ??? Colon Cancer Neg Hx Social History: Social History Tobacco Use ??? Smoking status: Former Smoker Packs/day: 1.00 Years: 10.00 Pack years: 10.00 Quit date: 03/02/2016 Years since quittin.8 ??? Smokeless tobacco: Never Used Substance Use Topics ??? Alcohol use: No Review of Systems General: patient denies any weakness, fatigue, fever, chills or night sweats Hematopoetic: patient denies any anemia, bleeding or easy brusibility COLLETER: patient denies any headache syncope or seizures Eye: patient denies any visual changes, diploplia, no glasses Ears: patient denies any hearing loss, pain, vertigo, tinnitus Nose and throat: patient denies any congestion, postnasal drip, sore throat, epistaxis. Cardiovascular: Patient denies chest pain, edema or palpitations Respiratory: patient denies any shortness of breath, cough sputum production GI: patient reports nausea, vomiting, and chronic diarrhea,as well as abelardo- umbilical pain. Denies constipation. : Pt denies any dysuria, frequency, urgency or hematuria Muskuloskeletal: patient denies any joint pain, swelling, weakness Integumentary: patient denies any rash, lesions, or itching Endocrine: patient denies ploydipsia, polyphasia or nervousness. Psychiatric: patient denies depression, anxiety, suicidal or homicidal ideations. Physical Exam: Vitals: BP 130/68 (BP Location: Right arm, Patient Position (BP): Supine) Pulse 88 Temp 98.5 ??F (36.9 ??C) (Oral) Resp 18 Ht 5' 6 (1.676 m) Wt 109.3 kg (240 lb 14.4 oz) SpO2 98% BMI 38.88 kg/m?? General: well appearing adult female Head: normocephalic, atraumatic Eyes: pupils PERRL, EOMs intact, sclera non icteric Nares: clear, no exudate Oropharynx: clear, mucous membranes pink and moist Neck: supple, trachea midline, no JVD, no lymphadenopathy Heart: S1 S2 RRR, no murmur, rub or gallop Lungs: clear to auscultation bilaterally, respirations even non labored, no accessory muscle use Abdomen: +well healed/approximated surgical scar noted in RLQ. +TTP in abelardo- umbilical region. No rebound tenderness noted. Abdomen is soft, no hepatomegaly, no splenomegaly, no bruit, bowel sounds present Extremities: no clubbing, cyanosis or edema, 2+ bilateral radial pulses, 2+ bilateral DP pulses Skin: pink, warm and dry, no rash or lesions noted Neuro: pt alert and oriented x 3, CN II-XII grossly intact non focal, mood appropriate. Data Base: Results for orders placed or performed during the hospital encounter of 12/28/20 (from the past 24 hour(s)) POC CREATININE Result Value Ref Range POC CREATININE 0.60 0.50 - 1.00 mg/dL GFR >60 mL/min/1.73 sq meter GFR, >60 mL/min/1.73 sq meter CLINICAL REIMBURSEMENT SPECIALIST NAME GURDEEP MORENO CBC WITH DIFFERENTIAL Result Value Ref Range WBC 15.3 (H) 4.0 - 9.8 K/uL RBC 4.85 3.90 - 4.90 M/uL HEMOGLOBIN 14.7 11.8 - 14.8 g/dL HEMATOCRIT 44.0 35.5 - 44.0 % MCV 90.7 82.0 - 99.0 fL MCH 30.3 27.2 - 32.6 pg MCHC 33.4 31.5 - 35.5 g/dL RDW 13.3 11.5 - 14.5 % RDW-STDEV 44.8 37.1 - 48.7 fL PLATELETS 387 (H) 140 - 350 K/uL MPV 9.1 (L) 9.3 - 12.4 fL NEUTROPHILS 79 % LYMPHOCYTES 13 % MONOCYTES 6 % EOSINOPHILS 1 % BASOPHILS 0 % IMMATURE GRANULOCYTES 1 % NEUTROPHIL ABSOLUTE 12.10 (H) 1.90 - 7.00 K/uL LYMPHOCYTE ABSOLUTE 1.97 0.70 - 4.50 K/uL MONOCYTE ABSOLUTE 0.95 0.10 - 1.30 K/uL EOSINOPHIL ABSOLUTE 0.20 0.00 - 0.70 K/uL BASOPHILS ABSOLUTE 0.04 0.00 - 0.20 K/uL IMMATURE GRANULOCYTES ABSOLUTE 0.07 (H) 0.00 - 0.03 K/uL COMPREHENSIVE METABOLIC PANEL Result Value Ref Range SODIUM 137 136 - 145 mmol/L POTASSIUM CHLORIDE 104 98 - 107 mmol/L CO2 19 (L) 22 - 29 mmol/L CALCIUM 9.8 8.6 - 10.2 mg/dL BUN 12 6 - 20 mg/dL CREATININE 0.57 0.51 - 0.95 mg/dL GLUCOSE 129 (H) 74 - 99 mg/dL TOTAL PROTEIN 8.5 6.7 - 8.6 g/dL ALBUMIN 4.4 3.5 - 5.2 g/dL BILIRUBIN TOTAL 0.5 0.3 - 1.2 mg/dL ALKALINE PHOSPHATASE AST 39 (H) <33 U/L ALT 26 <34 U/L GFR >60 mL/min/1.73 sq meter GFR, >60 mL/min/1.73 sq meter ANION GAP 14 8 - 16 mmol/L LIPASE Result Value Ref Range LIPASE 23 13 - 60 U/L POC , URINE Result Value Ref Range HCG QUAL URINE Negative Negative CLINICAL REIMBURSEMENT SPECIALIST NAME TESSA MENARD POC SPECIFIC GRAVITY UA 1.025 1.000 - 1.030 URINALYSIS WITH REFLEX MICROSCOPIC Result Value Ref Range COLOR UA Yellow Pale to Dark Yellow CLARITY UA Cloudy (A) Clear SPECIFIC GRAVITY UA 1.031 1.003 - 1.035 PH UA 5.0 5.0 - 8.0 LEUKOCYTE ESTERASE UA 2+ (A) Negative NITRITE UA Negative Negative PROTEIN UA 1+ (A) Negative GLUCOSE UA Negative Negative KETONES UA Negative Negative UROBILINOGEN UA 4.0 (A) <2.0 mg/dL BILIRUBIN UA Negative Negative BLOOD UA Negative Negative WBC UA 26-50 (A) 0 - 2 /hpf RBC UA 3-5 (A) 0 - 2 /hpf BACTERIA UA Negative Negative /hpf EPITHELIAL CELLS, URINE 11-25 (A) 0 - 5 /hpf CT abd/pelvis: IMPRESSION: Nonspecific enteritis involving primarily the proximal [...] No additional finding and no other acute process EKG-personally reviewed: ST 102, No ST-T wave changes suggestive of ischemia or infarct. Assessment and Plan: Infectious gastroenteritis-POA. Mid-umbilical pain/N/V. CT as above, concerning for gastroenteritisvs SBO vs ileus.Leukocytosis. Extensive GI surgical hx, including gastroschisis and extensive SANDRO. Open pipe 11/12/20 w/SB injury w/repair (Dr. Wheeler). Gen surgery following, w/plan for small bowel follow through in AM. NPO. IVF. Pt is refusing NGT. CBC/BMP in AM. T2DM- Hb A1c of 6.2 on 08/03/20, hold TRAVEL ASSISTANT metformin. POC glucose q4h with lispro for correction while NPO then POC Glucose AC&HS with lispro for meals and correction, diabetic diet when appropriate. Hyperlipidemia-Hold TRAVEL ASSISTANT crestor, NPO Asthma- CTAB. No distress/SOB. PRN alb inh. HTN-normotensive at this time. Hold TRAVEL ASSISTANT lisnopril GERD-hold TRAVEL ASSISTANT PPI, can consider IV PPI if clinically indicated. Major depression-mood stable. Hold TRAVEL ASSISTANT zoloft. Nutrition: Current Diet and/or Nutritional Supplementation ordered: DIET NPO Sips w/Meds, Code status: Full Rolle-none Lines-peripheral DVT PPX: Lovenox PT/OT: none Spoke to: patient, questions answered. Disposition: The pt normally lives at home. I anticipate the pt will be hospitalized for 2 days pending workup. At discharge the patient will likely return home. I have discussed this with the patient and family in attendance. This patient was discussed with Dr. Choi and he agrees with the above plan. Eric Dunn [facility] Hospitalist Contact me via secure chat Associated attestation - Shobha Choi MD - 12/29/2020 2:43 AM CDT [facility] Adult Hospitalist Attending Note I reviewed the medical record including the ROUSTABOUT CREW PUSHER's note (available as hyperlink below) on 12/29/2020. I reviewed and confirmed the history, physical findings, laboratory findings, assessment and plan with the ROUSTABOUT CREW PUSHER on rounds. I also performed the critical or barreto portion(s) of the service as documented below, and was directly involved in the management of the patient and supervised the care provided. I have reviewed the physical exam findings in the ROUSTABOUT CREW PUSHER???s note; my notable physical exam findings include: Gen NAD HEENT CV Resp PERRL, EOMI, NC/AT S1S2+, RRR CTAB Abd Soft, ND. RUQ and central healed surgical scars. TTP epigastric and periumbilical. No guarding MSK Normal tone Neuro Ext CN grossly intact No edema I have reviewed the labs that were obtained over the last 24 hours. Brief HPI: 35-year-old female with a history of multiple abdominal surgeries including gastroschisis repair as a and open cholecystectomy last year who presented with complaints of mid abdominal pain and vomiting over the last 4 days. She reports with history of chronic diarrhea denies any fevers, chills. She is had no recent sick contacts, travel, new foods, antibiotics. She does report changing her control about a week ago. In the emergency department CTAP notable for nonspecificenteritis with ileus or early partial SBO. Surgery was consulted who recommended NG tube n.p.o., and small bowel follow-through in the morning. Patient had a bilateral rhinoplasty and turbinectomy on12/20 teens have some nasal tenderness. For this reason she declined NG tube. She is currently not vomiting. Notable amendments/additions to the assessment and plan include: Principal Problem: Ileus- enteritis with partial SBO vs ileus on CTAP. WBC 15 -Intestinal obstruction pathway initiated. -Past abdominal surgical history includes: Gastroschisis repair as an infant, and adhesional lysis in 2003, open cholecystectomy 2020 -NPO. -NG to LIWS. Patient refusing at this time due to recent BL rhinoplasty and turbinectomy. Not vomiting, monitor for now. -Pain control as needed. Careful monitoring of vitals including HR, RR, BP and O2sat while on IV narcotics. Naloxone available if needed. -IV antiemetic as needed. - SBFT in AM, ordered -General surgery service consulted Infectious gastroenteritis - supportive care. Chronically has diarrhea. Check GI PCR - pain control, antiemetics Type 2 diabetes mellitus without complication, without long-term current use of insulin - Hold home metformin - Start hyperglycemia pathway with SSI and Q4H accuchecks Hyperlipidemia-resume statin when taking p.o. Asthma-as needed inhalers HTN (hypertension), benign-resume lisinopril when taking p.o. GERD (gastroesophageal reflux disease)-resume PPI when taking p.o. Major depression-resume Zoloft, Wellbutrin when taking p.o. Abnormal UA- +LE, and epithelial. No symptoms of UTI, follow culture. Monitor off Abx. - Rest of treatment plan per ROUSTABOUT CREW PUSHER note I have personally reviewed the ER documentation, admission labs, and admission imaging studies today. Additionally, I have personally reviewed previous hospital documentation, office notes, laboratory data, and imaging studies relevant to this encounter. Shobha Choi MD [facility] Hospitalist This note was written using dictation software, as such there may be word substitutions or errors. For patients admitted by myself between 9pm-7am, please contact me via [employer] secure message with anyquestions or concerns. Outside above hours, the attending has changed, contact attending listed in [facility] or locate patient on the hospitalist e-list and contact the current attending. documented in this encounter Consult Notes * Marnie Phelps MD - 12/28/2020 5:36 PM CDTAssociated Order(s): IP CONSULT TO GENERAL SURGERY Images from the original note were not included. DATE: 12/28/2020 NAME: Chad Phelan : 1985 CSN: [id number] [facility] General Surgery H&P/Consult ASSESSMENT/PLAN: 27yF with hx of gastrochisis, extensive SANDRO at 19y of age, recent open cholecystectomy that was complicated by SB injury requiring SBR (11/02/20). She presents with 3d hx of constant mid abd pain thatis now associated with N/V. Imaging showed concerns for enteritis and possible ileus vs SBO. - admit to medicine - NPO, IVF, NGT - test for GI pathogens - small bowel follow through in AM - CBC/CMP in am - please have patient obtain surgical records I have reviewed this patient's history and physical, family history, acute and chronic diagnoses, all pertinent notes, vitals, labs, medications and images during my development of the above assessment and plan. I discussed case with Dr. Hinojosa. Marnie Phelps MD, 12/28/2020 5:36 PM TACS Resident On-Call Pager [phone].TACS TACS Attending On-Call - please refer to Trauma and Acute Care Surgery (TACS) page on [employer] website Subjective: Chief Complaint Patient presents with ??? Abdominal Pain Periumbilical abd pain onset 3 days ago, constant. No N/V. Loose stools. No fevers. No urinary s/s There are no hospital problems to display for this patient. HPI: Chad Phelan is a 35 y.o. female with extensive abdominal surgical hx that presents with constant mid abdominal pain (x3d) now associated with N/V. She reports last BM was several days ago butdenies diarrhea. Denies any fever/chills. hx of gastrochisis, extensive SANDRO at 19y of age, recent open cholecystectomy that was complicated by SB injury requiring SBR (11/02/20). Allergies Allergen Reactions ??? Tramadol Hives ??? Varenicline Anaphylaxis ??? Metronidazole Nausea and Vomiting Other reaction(s): Vomiting ??? Meperidine Swelling (Not in a hospital admission) Past Medical History: Diagnosis Date ??? Arthritis ??? Asthma ??? Biliary dyskinesia ??? Depression ??? Diabetes mellitus ??? Difficult intravenous access VERY hard IV stick use requests ultrasound ??? Eosinophilic esophagitis ??? GERD (gastroesophageal reflux disease) ??? Headache ??? History of shingles ??? Hyperlipidemia Past Surgical History: Procedure Laterality Date ??? HX GASTROSCHISIS CLOSURE ??? HX SURGICAL OTHER 04/2004 adhesion removed ??? IL ESOPHAGOGASTRODUODENOSCOPY TRANSORAL DIAGNOSTIC N/A 05/17/2019 ESOPHAGOGASTRODUODENOSCOPY performed by Jena Cerda MD at [facility] ??? IL REMOVAL GALLBLADDER N/A 11/03/2019 OPEN CHOLECYSTECTOMY performed by Gabbie Wheeler MD at [facility] OR MAIN Family History Problem Relation Name Age of Onset ??? Lung Cancer Father ??? Stroke Father ??? Hypertension Mother ??? High Cholesterol Mother ??? Unknown Brother ??? Unknown Maternal Grandmother ??? Unknown Maternal Grandfather ??? Diabetes Paternal Grandmother ??? Kidney Disease Paternal Grandfather ??? No Known Problems Daughter ??? No Known Problems Son ??? Colon Cancer Neg Hx Social History Socioeconomic History ??? Marital status: Spouse name: Not on file ??? Number of children: 2 ??? Years of education: Not on file ??? Highest education level: Not on file Occupational History Employer: [employer] Tobacco Use ??? Smoking status: Former Smoker Packs/day: 1.00 Years: 10.00 Pack years: 10.00 Quit date: 03/02/2016 Years since quittin.8 ??? Smokeless tobacco: Never Used Vaping Use ??? Vaping Use: Never used Substance and Sexual Activity ??? Alcohol use: No ??? Drug use: No ??? Sexual activity: Not on file Other Topics Concern ??? Not on file Social History Narrative ??? Not on file Social Determinants of Health Financial Resource Strain: ??? Difficulty of Paying Living Expenses: Food Insecurity: ??? Worried About Running Out of Food in the Last Year: ??? Ran Out of Food in the Last Year: Transportation Needs: ??? Lack of Transportation (Medical): ??? Lack of Transportation (Non-Medical): Physical Activity: ??? Days of Exercise per Week: ??? Minutes of Exercise per Session: Stress: ??? Feeling of Stress : Social Connections: ??? Frequency of Communication with Friends and Family: ??? Frequency of Social Gatherings with Friends and Family: ??? Attends [employer] Services: ??? Active Member of Clubs or Organizations: ??? Attends Club or Organization Meetings: ??? Marital Status: Intimate Partner Violence: ??? Fear of Current or Ex-Partner: ??? Emotionally Abused: ??? Physically Abused: ??? Sexually Abused: TOBACCO COUNSELING She is not a tobacco user. Review of Systems: Review of Systems Constitutional: Negative. HENT: Negative. Eyes: Negative. Respiratory: Negative. Cardiovascular: Negative. Gastrointestinal: See HPI Genitourinary: Negative. Musculoskeletal: Negative. Skin: Negative. Neurological: Negative. Endo/Heme/Allergies: Negative. Psychiatric/Behavioral: Negative. Objective: Patient Vitals for the past 8 hrs: BP Temp Temp src Pulse Resp SpO2 Height Weight 12/28/20 1600 (!) 138/95 -- -- (!) 110 17 95 % -- -- 12/28/20 1416 (!) 137/95 99.4 ??F (37.4 ??C) Oral (!) 123 18 99 % 5' 6 (1.676 m) 109.3 kg (241 lb) BP (!) 138/95 (BP Location: Right arm, Patient Position (BP): Sitting) Pulse (!) 110 Temp 99.4 ??F (37.4 ??C) (Oral) Resp 17 Ht 5' 6 (1.676 m) Wt 109.3 kg (241 lb) SpO2 95% BMI 38.90 kg/m?? Physical Exam: Gen alert, in no distress Neuro Grossly normal moves all ext well, no focal neuro deficits HEENT PERRLA, EOMI Heart regular rate and rhythm Lungs normal respiratory effort Abdomen Soft,obese but non distended, generalized mild tenderness with severe tenderness to mid abdadjacent to RUQ scar Extremities intact distal pulses, no edema, redness or tenderness in the calves or thighs Skin Skin color, texture, turgor normal. No rashes or lesions Other - Labs/Imaging: Results for orders placed or performed during the hospital encounter of 12/28/20 (from the past 24 hour(s)) POC CREATININE Result Value Ref Range POC CREATININE 0.60 0.50 - 1.00 mg/dL GFR >60 mL/min/1.73 sq meter GFR, >60 mL/min/1.73 sq meter CLINICAL REIMBURSEMENT SPECIALIST NAME GURDEEP MORENO CBC WITH DIFFERENTIAL Result Value Ref Range WBC 15.3 (H) 4.0 - 9.8 K/uL RBC 4.85 3.90 - 4.90 M/uL HEMOGLOBIN 14.7 11.8 - 14.8 g/dL HEMATOCRIT 44.0 35.5 - 44.0 % MCV 90.7 82.0 - 99.0 fL MCH 30.3 27.2 - 32.6 pg MCHC 33.4 31.5 - 35.5 g/dL RDW 13.3 11.5 - 14.5 % RDW-STDEV 44.8 37.1 - 48.7 fL PLATELETS 387 (H) 140 - 350 K/uL MPV 9.1 (L) 9.3 - 12.4 fL NEUTROPHILS 79 % LYMPHOCYTES 13 % MONOCYTES 6 % EOSINOPHILS 1 % BASOPHILS 0 % IMMATURE GRANULOCYTES 1 % NEUTROPHIL ABSOLUTE 12.10 (H) 1.90 - 7.00 K/uL LYMPHOCYTE ABSOLUTE 1.97 0.70 - 4.50 K/uL MONOCYTE ABSOLUTE 0.95 0.10 - 1.30 K/uL EOSINOPHIL ABSOLUTE 0.20 0.00 - 0.70 K/uL BASOPHILS ABSOLUTE 0.04 0.00 - 0.20 K/uL IMMATURE GRANULOCYTES ABSOLUTE 0.07 (H) 0.00 - 0.03 K/uL COMPREHENSIVE METABOLIC PANEL Result Value Ref Range SODIUM 137 136 - 145 mmol/L POTASSIUM CHLORIDE 104 98 - 107 mmol/L CO2 19 (L) 22 - 29 mmol/L CALCIUM 9.8 8.6 - 10.2 mg/dL BUN 12 6 - 20 mg/dL CREATININE 0.57 0.51 - 0.95 mg/dL GLUCOSE 129 (H) 74 - 99 mg/dL TOTAL PROTEIN 8.5 6.7 - 8.6 g/dL ALBUMIN 4.4 3.5 - 5.2 g/dL BILIRUBIN TOTAL 0.5 0.3 - 1.2 mg/dL ALKALINE PHOSPHATASE AST 39 (H) <33 U/L ALT 26 <34 U/L GFR >60 mL/min/1.73 sq meter GFR, >60 mL/min/1.73 sq meter ANION GAP 14 8 - 16 mmol/L LIPASE Result Value Ref Range LIPASE 23 13 - 60 U/L POC , URINE Result Value Ref Range HCG QUAL URINE Negative Negative CLINICAL REIMBURSEMENT SPECIALIST NAME DERIAN, TESSA POC SPECIFIC GRAVITY UA 1.025 1.000 - 1.030 URINALYSIS WITH REFLEX MICROSCOPIC Result Value Ref Range COLOR UA Yellow Pale to Dark Yellow CLARITY UA Cloudy (A) Clear SPECIFIC GRAVITY UA 1.031 1.003 - 1.035 PH UA 5.0 5.0 - 8.0 LEUKOCYTE ESTERASE UA 2+ (A) Negative NITRITE UA Negative Negative PROTEIN UA 1+ (A) Negative GLUCOSE UA Negative Negative KETONES UA Negative Negative UROBILINOGEN UA 4.0 (A) <2.0 mg/dL BILIRUBIN UA Negative Negative BLOOD UA Negative Negative WBC UA 26-50 (A) 0 - 2 /hpf RBC UA 3-5 (A) 0 - 2 /hpf BACTERIA UA Negative Negative /hpf EPITHELIAL CELLS, URINE 11-25 (A) 0 - 5 /hpf CT Abd with cont 12/28/20 IMPRESSION: Nonspecific enteritis involving primarily the proximal [...] additional finding and no other acute process. Marnie Phelps MD Associated attestation - Masood Hinojosa MD - 12/28/2020 6:56 PM CDT I personally saw and examined the patient. My findings coincide with those of the nursing surgical services director I reviewed the pertinent labs, imaging, and data. I agree with the below findings, assessment, and plan. I certify that I have independently seen and examined this patient, reviewed the labs, xrays, and evaluated the nissan sales consultant's notes and agree with the below assessment. I have spent no less than 30 minutes involved in the care and evaluation of the patient. I agree with the medical decision making of the nursing surgical services director which I personally reviewed and supervised. Specifically, I personally counseled the patient on the plan for the day and and: 27yF with hx of gastrochisis, extensive SANDRO at 19y of age, open cholecystectomy that was complicated by SB injury requiring SBR (11/03/19) by Dr Wheeler here at [facility]. She presents with 3d hx of constant mid abd pain that is now associated with N/V. Imaging showed concerns for enteritis and possible ileus vs SBO. - admit to medicine - NPO, IVF, NGT - IV hydration - test for GI pathogens - small bowel follow through in AM - CBC/CMP in am documented in this encounter ED Notes * Eula Marcum RN - 12/28/2020 6:04 PM CDT Pt/family informed of current hospital visitor policy at this time. Both verbalized understanding. * Eula Marcum RN - 12/28/2020 4:40 PM CDT Pt to CT * Eula Marcum RN - 12/28/2020 3:47 PM CDT Pt ambulatory to restroom at this time. * Gurdeep Moreno RN - 12/28/2020 3:13 PM CDT Pt to the ED for upper epigastric pain x 3 days. +N/V/D. Pt denies urinary symptoms. Pt has hx of cholecystectomy as well. Pt is aox4, respirations are spontaneous and non-labored. * Timothy Marquez MD - 12/28/2020 2:14 PM CDT HISTORY OF PRESENT ILLNESS Chad Phelan, a 35 y.o. female presents to the ED with a Chief Complaint of Abdominal Pain Subjective Documented Triage Chief Complaint: Abdominal pain 3:00 PM: Chad Phelan is a 35 y.o. female with a history of HLD, DM2, gastroschisis, and cholecystitis, who presents to the Emergency Department with complaints of abdominal pain. Patient states that since 3 days she has been experiencing abdominal pain in her periumbilical region, RLQ, and RLQ. Patient reports loose stools but states that this is normal for her. She also states that has loss of appetite and feels hot. Patient denies pain radiation to her back or flank regions. Denies fever, nausea, vomiting, or urinary symptoms. Patient reports having a cholecystectomy last year. She is on control and states that she doesn't really have menstrual periods. Physician(s): Francis Pereyra MD History provided by: The patient Arrived by: Private vehicle REVIEW OF SYSTEMS Review of Systems Constitutional: Positive for appetite change. Negative for activity change, fatigue and fever. Reports feeling hot. HENT: Negative for congestion, sneezing and sore throat. Eyes: Negative for redness. Respiratory: Negative for cough, shortness of breath and wheezing. Cardiovascular: Negative for chest pain, palpitations and leg swelling. Gastrointestinal: Positive for abdominal pain and diarrhea. Negative for nausea and vomiting. Genitourinary: Negative for decreased urine volume, difficulty urinating, dysuria, frequency and hematuria. Musculoskeletal: Negative for back pain, gait problem and neck pain. Skin: Negative for rash. Neurological: Negative for weakness, numbness and headaches. PAST MEDICAL HISTORY REVIEWED MEDICAL: Patient has a past medical history of Arthritis, Asthma, Biliary dyskinesia, Depression, Diabetes mellitus, Difficult intravenous access, Eosinophilic esophagitis, GERD (gastroesophageal reflux disease), Headache, History of shingles, and Hyperlipidemia. She also has no past medical history of Dyspnea, History of complications due to general anesthesia, HTN (hypertension), Latex sensitivity, or Obstructive sleep apnea. SURGICAL: Patient has a past surgical history that includes gastroschisis closure (); surgical other (04/2004); pr esophagogastroduodenoscopy transoral diagnostic (N/A, 05/17/2019); and pr removal gallbladder (N/A, 11/03/2019). FAMILY: Patient's family history includes Diabetes in her paternal grandmother; High Cholesterol in her mother; Hypertension in her mother; Kidney Disease in her paternal grandfather; Lung Cancer in her father; No Known Problems in her daughter and son; Stroke in her father; Unknown in her brother, maternal grandfather, and maternal grandmother. SOCIAL: reports that she quit smoking about 4 years ago. She has a 10.00 pack-year smoking history. She hasnever used smokeless tobacco. She reports that she does not drink alcohol and does not use drugs. No history on file. Social History Other Topics Concern ??? Not on file ALLERGIES Tramadol, Varenicline, Metronidazole, and Meperidine HOME MEDICATIONS Patient's Home Medications Current Home Medications ALBUTEROL HFA 90 MCG INHALER ALPRAZOLAM (XANAX) 0.25 MG TABLET BUPROPION HCL (WELLBUTRIN XL) 150 MG EXTENDED RELEASE 24 HOUR TABLET CETIRIZINE (ZYRTEC) 10 MG TABLET FLUTICASONE PROPIONATE (FLONASE) 50 MCG/SPRAY SPRAY, SUSPENSION NASAL INHALER L-NORGEST&E ESTRADIOL-E ESTRAD (SEASONIQUE) 0.15 MG-30 MCG (84)/10 MCG (7) TABLET, DOSE PACK, 3MONTHS LISINOPRIL (PRINIVIL) 10 MG TABLET METFORMIN (GLUCOPHAGE) 500 MG TABLET PANTOPRAZOLE (PROTONIX) 40 MG TABLET, DELAYED RELEASE (E.C.) ROSUVASTATIN (CRESTOR) 40 MG TABLET SERTRALINE (ZOLOFT) 100 MG TABLET Medications Modified during this Encounter Medications Discontinued during this Encounter Objective PHYSICAL EXAM INITIAL VS BP: (!) 137/95 (12/28/201415), Heart Rate: 123 bpm (12/28/201415), Resp: 18 (12/28/201415), Pulse: (!) 123 (12/28/201415), Temp: 99.4 ??F (37.4 ??C) (12/28/201415), Temp src: Oral (12/28/201415), SpO2: 99 % (12/28/201415), Height: 5' 6 (167.6 cm) (12/28/201415), Weight: 109.3 kg (241 lb) (12/28/201415), BMI (Calculated): 38.92 (12/28/201415) No LMP recorded. Physical Exam Vitals and nursing note reviewed. Constitutional: General: She is not in acute distress. Appearance: She is obese. She is not toxic-appearing. HENT: Head: Normocephalic and atraumatic. Right Ear: External ear normal. Left Ear: External ear normal. Nose: No congestion or rhinorrhea. Mouth/Throat: Mouth: Mucous membranes are moist. Eyes: General: Right eye: No discharge. Left eye: No discharge. Pupils: Pupils are equal, round, and reactive to light. Cardiovascular: Rate and Rhythm: Regular rhythm. Tachycardia present. Heart sounds: No murmur heard. Pulmonary: Effort: Pulmonary effort is normal. Respiratory distress: with speech Breath sounds: Normal breath sounds. Abdominal: General: There is no distension. Palpations: Abdomen is soft. Tenderness: There is abdominal tenderness ( diffuse). There is guarding. There is no rebound. Musculoskeletal: General: Normal range of motion. Cervical back: Normal range of motion. Skin: General: Skin is warm and dry. Capillary Refill: Capillary refill takes less than 2 seconds. Findings: No rash. Neurological: General: No focal deficit present. Mental Status: She is alert. DIAGNOSTICS LAB: CBC WITH DIFFERENTIAL - Abnormal Result Value WBC 15.3 (*) RBC 4.85 HEMOGLOBIN 14.7 HEMATOCRIT 44.0 MCV 90.7 MCH 30.3 MCHC 33.4 RDW 13.3 RDW-STDEV 44.8 PLATELETS 387 (*) MPV 9.1 (*) NEUTROPHILS 79 LYMPHOCYTES 13 MONOCYTES 6 EOSINOPHILS 1 BASOPHILS 0 IMMATURE GRANULOCYTES 1 NEUTROPHIL ABSOLUTE 12.10 (*) LYMPHOCYTE ABSOLUTE 1.97 MONOCYTE ABSOLUTE 0.95 EOSINOPHIL ABSOLUTE 0.20 BASOPHILS ABSOLUTE 0.04 IMMATURE GRANULOCYTES ABSOLUTE 0.07 (*) COMPREHENSIVE METABOLIC PANEL - Abnormal SODIUM 137 POTASSIUM CHLORIDE 104 CO2 19 (*) CALCIUM 9.8 BUN 12 CREATININE 0.57 GLUCOSE 129 (*) TOTAL PROTEIN 8.5 ALBUMIN 4.4 BILIRUBIN TOTAL 0.5 ALKALINE PHOSPHATASE AST 39 (*) ALT 26 GFR >60 GFR, >60 ANION GAP 14 URINALYSIS WITH REFLEX MICROSCOPIC - Abnormal COLOR UA Yellow CLARITY UA Cloudy (*) SPECIFIC GRAVITY UA 1.031 PH UA 5.0 LEUKOCYTE ESTERASE UA 2+ (*) NITRITE UA Negative PROTEIN UA 1+ (*) GLUCOSE UA Negative KETONES UA Negative UROBILINOGEN UA 4.0 (*) BILIRUBIN UA Negative BLOOD UA Negative WBC UA 26-50 (*) RBC UA 3-5 (*) BACTERIA UA Negative EPITHELIAL CELLS, URINE 11-25 (*) LIPASE - Normal LIPASE 23 POC , URINE POC CREATININE POC CREATININE POC CREATININE 0.60 GFR >60 GFR, >60 CLINICAL REIMBURSEMENT SPECIALIST NAME ISIAH GURDEEP POC , URINE HCG QUAL URINE Negative CLINICAL REIMBURSEMENT SPECIALIST NAME DERIAN TESSA POC SPECIFIC GRAVITY UA 1.025 RADIOLOGY: No orders to display EKG: Sinus tachycardia, rate of 102, no ST elevation or depression, no T wave inversion, normal IL intervals PROCEDURES Procedures MEDICAL DECISION MAKING AND PLAN OF CARE --On initial examination, discussed plan of treatment including lab workup and imaging. Will give Zofran and morphine. Patient agrees with plan. ED provider and ED nurse verbally discussed patient plan of care at this time. 5:26 PM: Hospitalist ticket placed. 5:33 PM: Discussed with Eric ([facility] Hospitalist) who will admit to medical floor under Dr. Snyder. 5:34 PM: Consult with general surgery to rule out small bowel obstruction. 6:00PM: Updated patient on results, diagnosis, and plan for admission. Patient agrees with the plan. The opportunity for questions was given and questions were answered to the patient's satisfaction. All questions and concerns have been addressed. ED provider and ED nurse verbally discussed patient plan of care at this time. 6:22 PM: Consult with general surgery. They want an NG tube and GI pathogen panel. MDM Summary Statement: 35-year-old female presenting emergency department abdominal pain, nausea/vomiting diarrhea. Pain is periumbilical. She denies any fevers. CT scan shows ileus versus possible early bowel obstruction.Discussed with surgery recommended NG tube and stool PCR. Will admit to hospitalist service for pain control, hydration. Patient is to be n.p.o. I have reviewed previous: notes I have reviewed current: ECG, labs and imaging I have reviewed nursing notes related to past medical history, social history, and review of systems and agree, unless otherwise noted. Consults: hospitalist and general/trauma surgery Medications Administered During the ED Stay from 12/28/2020 1414 to 12/28/2020 181 Date/Time Order Dose Route Action 12/28/2020 1548 sodium chloride 0.9% bolus solution 1,000 mL 1,000 mL IV Bolus 12/28/2020 1539 ondansetron (ZOFRAN) 4 mg/2 mL injection 4 mg 4 mg IV Given 12/28/2020 1542 morphine 4 mg/mL injection 4 mg 4 mg IV Given 12/28/2020 1654 iopamidoL (ISOVUE-300) 61 % injection (drawn from multi-use bulk pack) 120 mL 120 mL IV Contrast Given 12/28/2020 1655 sodium chloride flush injection 10 mL 10 mL IV Given . New Prescriptions for this Encounter LAST VS BP: (!) 138/95 (12/28/20 1600), Heart Rate: 123 bpm (12/28/201415), Resp: 17 (12/28/20 1600), Pulse: (!) 110 (12/28/20 1600), Temp: 99.4 ??F (37.4 ??C) (12/28/201415), Temp src: Oral (12/28/201415), SpO2: 95 % (12/28/20 1600) CLINICAL IMPRESSION Final diagnoses: [K56.7] Ileus (Primary) DISPOSITION, EDUCATION AND MEDICATION RECONCILIATION Medications reconciled. See after visit summary for patient education on discharged patients. ED Disposition ED Disposition Condition User Date/Time Comment Admit Stable Timothy Marquez MD ThuDec 28, 2020 5:41 PM ATTESTATION STATEMENTS This note has been prepared by Sienna Kaplan acting as a scribe for Dr. Timothy Marquez on 12/28/2020 at 6:01 PM. The scribe's documentation has been prepared under my direction and personally reviewed by me, Timothy Marquez, in its entirety on 12/28/20 at 6:11 PM. I confirm that the note above accurately reflects all work, treatment, procedures, and medical decision making performed by me. Diagnosis Diagnosis Comment Added By Time Added Ileus [K56.7] Timothy Marquez MD 12/28/2020 5:41 PM documented in this encounter Miscellaneous Notes * Care Plan - Elo Stokes RN - 12/30/2020 6:49 AM CDT Patient alert oriented x4. C/o pain to left lower abdominal area but releived with PO pain medications . Resting comfortably through out the night. Abdomen soft no tenderness to the touch active x. Pleasant and cooperative . No s/s of distress. Problem: Pain, Potential/Actual Goal: Verbalizes/displays acceptable comfort level or baseline comfort level Description: Outcome: Variance * Treatment Plan - Estrella Townsend RT - 12/29/2020 7:35 AM CDT [facility] Medication Protocol [facility] Approved by: [facility] - Medical Executive Committee Approval Date: 07/16/2020 I ORDERS ARE ENTERED ???PER PROTOCOL?? Enter the protocol in the patient's electronic health record using smartphrase: .radiologymedicationprotocol Communication Orders: o If required to complete procedure, isotope technologist or nurse may place indwelling rolle catheter. Medication Orders: o Sodium chloride 0.9% (normal saline) flush 10 mLs PRN for saline lock or medication administration. o For respiratory distress, initiate oxygen and/or increase O2 to maintain saturation greater than 90%. o For all invasive procedures: Obtain Lidocaine 1% for intra-procedure administration. If Lidocaine1% unavailable, may substitute Lidocaine 2%. DIAGNOSTIC RADIOLOGY CONTRAST PROTOCOLS ADULTS: PROCEDURE DOSAGE ARTHROGRAMS (shoulder, wrist, hip, knee, TMJ) Iopamidol (ISOVUE-300) 61% Radiologist to administer up to 30mL, intraarticularly, one time. If MRI ordered, add 0.15mLGadobenate Dimeglumine (Multihance) to the iopamidol and mix well. (If more than 30mL is desired, radiologist may request that 50mL of iopadmidol (ISOVUE-300) 61% be mixed with 0.25mL of gadobenate dimeglumine (Multihance) BARIUM ENEMA (with or without AIR CONTRAST) Barium Sulfate (Liquid Polibar Plus) 96% (w/w) 792r=949kL mixed with 1500mL of water, radiologist to administer up to 2000mL rectally, one time only BARIUM ENEMA HYPAQUE Iopamidol (ISOVUE-250) 51%, 800mL + CYSTOGRAFIN 30%, 900mL, radiologist to administer up to 1700 mL of combined fluids, rectally, one time. Radiologist may repeat if needed to complete procedure. CYSTOGRAM CYSTOGRAFIN 30%, Radiologist to administer up to 300mL, instill into the bladder, one time. ESOPHAGUS BARIUM SWALLOW Radiologist to request one or more of the following products: Barium Sulfate (E-Z-HD) 98% oral suspension 340g = 135mL, orally, one time. Barium Sulfate (E-Z-PAQUE) 96% (w/w) oral suspension 176g = 240mL, orally, one time. ESOPHAGUS BARIUM SWALLOW HYPAQUE Iohexol (OMNIPAQUE) 350mg/mL oral solution, radiologist to administer up to 50mL, orally, one time MODIFIED BARIUM SWALLOW May use one or more of the following products, administered by Speech Language Pathologist: Barium tablet (E-Z Disk) 13mm = 700mg, up to one tablet, orally, one time. Barium Sulfate (E-Z-PAQUE) 96% oral (w/w) oral suspension up to 176g, orally, one time. May mix with food or liquid to achieve desired viscosity Barium Sulfate (E-Z-PASTE) 60% oral cream, up to 45g, orally, one time. May mix with food or liquidto achieve desired viscosity. HYSTEROSALPINGOGRAM Iopamidol (ISOVUE-300) 61%, provider to administer up to 30ml, vaginally, one time only INTRAVENOUS PYELOGRAM Iopamidol (ISOVUE-370) 76%, administer up to 85mL, intravenous, one time only. Volume of contrast injected determined by radiologist. MYELOGRAMS: CERVICAL Iopamidol (ISOVUE-M 300), 61% radiologist to administer up to 15mL, intrathecal, one time only THORACIC Iopamidol (ISOVUE-M 200) 41%, radiologist to administer up to 20mL, intrathecal, one time only LUMBAR Iopamidol (ISOVUE-M 200) 41%, radiologist to administer up to 20mL, intrathecal, one time only SMALL BOWEL SERIES Barium Sulfate (E-Z-Paque) 96% (w/w) oral suspension (Thin Barium), up to 352g =480mL orally, one time only. SMALL BOWEL SERIES HYPAQUE Iohexol (OMNIPAQUE) 350 mg/mL oral solution, 200ml, orally, one time only URETHROCYSTOGRAM VOIDING and RETROGRADE URETHROGRAM Diatraizoate meglumine (Cystografin) 30%, up to 300ml, instill into the bladder, one time only UPPER GI Radiologist to request one or more of the following products: Barium Sulfate (E-Z-HD) 98% oral suspension 340g = 135mL, orally, one time only. Barium Sulfate (E-Z-PAQUE) 96% (w/w) oral suspension 176g= 240mL, orally, one time only. UPPER GI HYPAQUE Iohexol (OMNIPAQUE) 350 mg/mL oral solution, 200mL, orally, one time only UPPER GI AIR CONTRAST Radiologist to request one or more of the following products: Barium Sulfate (E-Z-HD) 98% oral suspension 340g, orally, one time only. Barium Sulfate (E-Z-PAQUE) 96% (w/w) oral suspension 176g, orally, one time. EZ Gas crystals, one packet, orally, one time only. PORT CONTRAST INJECTION WITH FLUORO Iopamidol (Isovue-300) 61%, radiologist to administer up to 50ml, intravenous, one time only PEDIATRICS: For all procedures with an oral route, preferred route is oral; nasoenteric route may also be used.If needed, radiologist may place a nasoenteric tube to facilitate contrast administration. PROCEDURE DOSAGE UPPER GI- Under Age 5 Barium Sulfate (E-Z-Paque) 96% (w/w) oral suspension (Thin Barium), up to 176g = 240mL orally, one time only. UPPER GI HYPAQUE- Under Age 5 Radiologist to request one or more of the following products and select dose required: Iohexol (Omnipaque) 350 mg/mL oral solution, orally, one time only Iohexol (Omnipaque) 180 mg/mL oral solution, orally, one time only UPPER GI- Above Age 5 Radiologist to request one or more of the following products: Barium Sulfate (E-Z-HD) 98% oral suspension(Thick Barium), up to 340g = 135mL orally, one time only Barium Sulfate(E-Z-Paque) 96% (w/w) oral suspension (Thin Barium), up to 176g = 240mL orally, one time only EZ Gas Packet, 4g (one packet) orally, one time only. UPPER GI HYPAQUE- Above Age 5 Iohexol (Omnipaque) 350 mg/mL oral solution, up to 200mL orally, one time only. SMALL BOWEL SERIES- Under Age 5 Barium Sulfate (E-Z-Paque) 96% (w/w) oral suspension (Thin Barium),up to 176g = 240mL orally, one time only SMALL BOWEL SERIES HYPAQUE- Under Age 5 Radiologist to request one or more of the following products and select dose required: Iohexol (Omnipaque) 350 mg/mL oral solution, orally, one time only Iohexol (Omnipaque) 180 mg/mL oral solution, orally, one time only Radiologist to choose dose for each product. SMALL BOWEL SERIES- Above Age 5 Radiologist to request one or more of the following products: Barium Sulfate (E-Z-Paque) 96% (w/w) oral suspension (Thin Barium), up to 352g = 480mL orally, one time only. Iohexol (Omnipaque) 350mg/mL, up to 200mL orally, one time only ESOPHAGUS BARIUM SWALLOW- Under Age 5 Barium Sulfate (E-Z-Paque) 96% (w/w) oral suspension (Thin Barium), up to 176g = 240mL orally, one time only ESOPHAGUS BARIUM SWALLOW HYPAQUE-Under Age 5 Radiologist to request one or more of the following products and select dose required: Iohexol (Omnipaque) 350 mg/mL oral solution, orally, one time only Iohexol (Omnipaque) 180 mg/mL oral solution, orally, one time only ESOPHAGUS BARIUM SWALLOW- Above Age 5 Radiologist to request one or more of the following products: Barium Sulfate (E-Z-HD) 98% oral suspension (Thick Barium), up to 340g = 135mL orally, one time only. Barium Sulfate (E-Z-Paque) 96% (w/w) oral suspension (Thin Barium), up to 176g = 240mL orally, one time only. EZ Gas Packet, 4g = 1 packet orally, one time only MODIFIED BARIUM SWALLOW- Above Age 5 May use one or more of the following products, administered bySpeech Language Pathologist: Barium tablet (E-Z Disk) 700mg = 13mm, up to one tablet, orally, one time. Barium Sulfate 96% oral suspension (E-Z-PAQUE), up to 176g, orally, one time. May mix with food or liquid to achieve desired viscosity. Barium Sulfate (E-Z-PASTE) 60%oral cream, up to 45g, orally, one time. May mix with food or liquid to achieve desired viscosity. MODIFIED BARIUM SWALLOW-Under age 5 May use one or more of the following products, administered by Speech Language Pathologist: Barium Sulfate 96% oral suspension (E-Z-PAQUE), up to 176g, orally, one time. May mix with food or liquid to achieve desired viscosity. Barium Sulfate (E-Z-PASTE) 60% oral cream, up to 45g, orally, one time. May mix with food or liquidto achieve desired viscosity. SPEECH VIDEO FLOUROSCOPY Administered by Speech Language Pathologist: Barium Sulfate (E-Z-HD) 98% , 1 mL in each nostril, intranasally, one time only. INTRAVENOUS PYELOGRAM Iopamidol (ISOVUE-370) 76%, administer up to 85mL, intravenous, one time only. Volume of contrast injected determined by radiologist. URETHROCYSTOGRAM VOIDING Iothalamate Meglumine (Cystografin Dilute) 18%, up to 300mL, instill into the bladder, one time only OR Iothalamate Meglumine (Cysto Conray II Urethral) 17.2%, up to 250mL, instill into the bladder, one time only BARIUM ENEMA HYPAQUE Iothalamate Meglumine (Cystographin Dilute) 18%, 300 mL, radiologist to administer up to 750mL rectally, one time. Radiologist may repeat if needed to complete procedure. OR Iothalamate Meglumine (Cysto Conray II Urethral) 17.2%, 250 mL, radiologist to administer up to 750mL rectally, one time. Radiologist may repeat if needed to complete procedure. BARIUM ENEMA (with or without AIR CONTRAST) Barium Sulfate (Liquid Polibar Plus) 96% (w/w) 454g =500mL mixed with 1500mL of water, radiologist to administer up to 2000mL of mixture rectally, one timeonly * Care Plan - Elo Stokes RN - 12/29/2020 5:55 AM CDT Alert oriented x4. She c/o right lower abdominal area with some tenderness to the touch. Morphine PRN administered per AUG. Hyperactive abdominal sounds x4. No N/V , no bowel movement observed at this time. Patient continues to refused NG tube. Patient is resting comfortably at this time. Requires standby assist when ambulating to the commode. Afebrile . Safety precautions in place and maintain. Problem: Pain, Potential/Actual Goal: Verbalizes/displays acceptable comfort level or baseline comfort level Description: Outcome: Variance Problem: Infection Risk/Actual Goal: Infection Risk/Actual: Infection prevention, control, or resolution by discharge Description: Outcome: Variance Problem: Discharge Planning Goal: Identify discharge needs upon admission and through discharge Description: Outcome: Variance Problem: Gastrointestinal Goal: Achieve optimal gastrointestinal function by discharge or maintain baseline function Outcome: Variance documented in this encounter Plan of Treatment Upcoming Encounters Date Type Department Care Team (Late st Contact Info) Description 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 Office Visit [facility] Orth[facility] Surgery at [facility] [address] [place] [id number] [place] [address] [place] [address] 10/27/2024 2:45 PM CDT Office Visit [facility] Gastroenterology [address] [place] [address] Bebo Benites MD [address] [place] [address] documented as of this encounter Procedures Procedure Name Priority Date/Time Associated Diagnosis Comments BASIC METABOLIC PANEL Routine 12/30/2020 7:19 AM CDT CBC WITH DIFFERENTIAL Routine 12/30/2020 7:18 AM CDT GI PATHOGEN PCR PANEL Stat 12/29/2020 12:34 PM CDT XR SMALL BOWEL WATER EMETERIO CONTRAST Routine 12/29/2020 11:14 AM CDT CBC WITH DIFFERENTIAL Routine 12/29/2020 7:15 AM CDT COMPREHENSIVE METABOLIC PANEL Routine 12/29/2020 7:[address] ABDOMEN PELVIS W CONTRAST Stat 12/28/2020 4:54 PM CDT URINALYSIS W/REFLEX MICROSCOPIC Stat 12/28/2020 4:00 PM CDT URINE CULTURE Routine 12/28/2020 4:00 PM CDT POC , URINE Stat 12/28/2020 3:51 PM CDT CBC WITH DIFFERENTIAL Stat 12/28/2020 3:42 PM CDT LIPASE Stat 12/28/2020 3:42 PM CDT COMPREHENSIVE METABOLIC PANEL Stat 12/28/2020 3:42 PM CDT POC CREATININE Stat 12/28/2020 3:40 PM CDT EKG 12-LEAD Stat 12/28/2020 3:04 PM CDT documented in this encounter Results * (ABNORMAL) BASIC METABOLIC PANEL (12/30/2020 7:19 AM CDT) Pathologist [facility] SODIUM 137 136 - 145 mmol/L 12/30/2020 7:48 AM CDT [employer] LABORATORY SERVICES - [facility] POTASSIUM 3.7 3.5 - 5.0 mmol/L 12/30/2020 7:48 AM CDT [employer] LABORATORY SERVICES - [facility] CHLORIDE 102 98 - 107 mmol/L 12/30/2020 7:48 AM CDT [employer] LABORATORY SERVICES - . [facility] CO2 23 22 - 29 mmol/L 12/30/2020 7:48 AM CDT [employer] LABORATORY SERVICES - . [facility] CALCIUM 8.5(L) 8.6 - 10.2 mg/dL 12/30/2020 7:48 AM CDT [employer] LABORATORY SERVICES - . [facility] BUN 8 6 - 20 mg/dL 12/30/2020 7:48 AM CDT [employer] LABORATORY SERVICES - . [facility] CREATININE 0.61 0.51 - 0.95 mg/dL 12/30/2020 7:48 AM CDT [employer] LABORATORY SERVICES - . [facility] GLUCOSE 117(H) 74 - 99 mg/dL 12/30/2020 7:48 AM CDT [employer] LABORATORY SERVICES - . [facility] GFR >60 mL/min/1.7 3 sq meter 12/30/2020 7:48 AM CDT [employer] LABORATORY SERVICES - [facility] Comment: eGFR has not been validated for use in the elderly (> 70 years of age), women, patients with serious co-morbid conditions, or persons with extremes of body size or muscle mass and should also be interpreted with caution in patients with acute kidney failure, dialysis dependent patients, patients reporting exceptional dietary intake (e.g. vegetarian diet, high protein diets, creatine supplementation), and patients with severe liver disease. Based on National Kidney Disease Education Program If patient is , please refer to the GFR result. GFR, >60 mL/min/1.7 3 sq meter 12/30/2020 7:48 AM CDT [facility] LABORATORY SERVICES - [facility] ANION GAP 12 8 - 16 mmol/L 12/30/2020 7:48 AM CDT [facility] LABORATORY SERVICES - [facility] Blood Venipuncture / Unknown 12/30/2020 7:19 AM CDT 12/30/2020 7:20 AM CDT Telma Palomo NP CHEMISTRY ORDERABL ES [facility] LABORATORY SERVICES [facility]# [id number] [address] [facility] [place] [address] * (ABNORMAL) CBC WITH DIFFERENTIAL (12/30/2020 7:18 AM CDT) WBC 6.6 4.0 - 9.8 K/uL 12/30/2020 7:27 AM CDT [facility] LABORATORY SERVICES - [facility] RBC 3.57(L) 3.90 - 4.90 M/uL 12/30/2020 7:27 AM CDT [facility] LABORATORY SERVICES [facility] HEMOGLOBIN 11.0(L) 11.8 - 14.8 g/dL 12/30/2020 7:27 AM CDT [facility] LABORATORY SERVICES - [facility] HEMATOCRIT 33.5(L) 35.5 - 44.0 % 12/30/2020 7:27 AM CDT [facility] LABORATORY SERVICES - [facility] MCV 93.8 82.0 - 99.0 fL 12/30/2020 7:27 AM CDT [facility] LABORATORY SERVICES - [facility] MCH 30.8 27.2 - 32.6 pg 12/30/2020 7:27 AM CDT [facility] LABORATORY SERVICES - [facility] MCHC 32.8 31.5 - 35.5 g/dL 12/30/2020 7:27 AM CDT [employer] LABORATORY SERVICES - . [facility] RDW 13.4 11.5 - 14.5 % 12/30/2020 7:27 AM CDT [employer] LABORATORY SERVICES - [facility] RDW-STDEV 46.0 37.1 - 48.7 fL 12/30/2020 7:27 AM CDT [employer] LABORATORY SERVICES - . [facility] PLATELETS 228 140 - 350 K/uL 12/30/2020 7:27 AM CDT [employer] LAB[facility]ATORY SERVICES - . [facility] MPV 8.9(L) 9.3 - 12.4 fL 12/30/2020 7:27 AM CDT [employer] LABORATORY SERVICES - . [facility] NEUTROPHILS 53 % 12/30/2020 7:27 AM CDT [employer] LAB[facility]ATORY SERVICES - . [facility] LYMPHOCYTES 33 % 12/30/2020 7:27 AM CDT [employer] LAB[facility]ATORY SERVICES - . [facility] MONOCYTES 8 % 12/30/2020 7:27 AM CDT [employer] LAB[facility]ATORY SERVICES - . [facility] EOSINOPHILS 5 % 12/30/2020 7:27 AM CDT [employer] [facility] BASOPHILS 0 % 12/30/2020 7:27 AM CDT [employer] LABORATORY SERVICES - . [facility] IMMATURE GRANULOCYTES 0 % 12/30/2020 7:27 AM CDT [employer] LABORATORY SERVICES - . [facility] NEUTROPHIL ABSOLUTE 3.51 1.90 - 7.00 K/uL 12/30/2020 7:27 AM CDT [employer] LABORATORY SERVICES - . [facility] LYMPHOCYTE ABSOLUTE 2.21 0.70 - 4.50 K/uL 12/30/2020 7:27 AM CDT [employer] LABORATORY SERVICES - . [facility] MONOCYTE ABSOLUTE 0.55 0.10 - 1.30 K/uL 12/30/2020 7:27 AM CDT [employer] LABORATORY SERVICES - . [facility] EOSINOPHIL ABSOLUTE 0.33 0.00 - 0.70 K/uL 12/30/2020 7:27 AM CDT [employer] LABORATORY SERVICES - . [facility] BASOPHILS ABSOLUTE 0.02 0.00 - 0.20 K/uL 12/30/2020 7:27 AM CDT [employer] LABORATORY SERVICES - . [facility] IMMATURE GRANULOCYTES ABSOLUTE 0.02 0.00 - 0.03 K/uL 12/30/2020 7:27 AM CDT [employer] LAB[facility]ATORY SERVICES - . [facility] Blood Venipuncture / Unknown 12/30/2020 7:18 AM CDT 12/30/2020 7:21 AM CDT Telma Palomo NP HEMATOLOGY ORDERAB LES [facility]# [id number] [address] [place] [id number] * GI PATHOGEN PCR PANEL (12/29/2020 12:34 PM CDT) Pathologist [facility] GI Pathogen PCR panel NOT DETECTED No nucleic acids detected. 12/29/2020 2:24 PM CDT [facility] Stool STOOL SPECIMEN / Unknown Collection / Unknown 12/29/2020 12:34 PM CDT 12/29/2020 12:47 PM CDT Narrative [facility] - 12/29/2020 2:24 PM CDT The Film Array GI Panel is a multiplexed nucleic acid detection test for 22 targets of bacteria, viruses, and parasites in stool that cause infectious diarrhea. Bacteria: Campylobacter C. difficile Plesiomonas shigelloides Salmonella Vibrio Vibrio cholerae Yersinia enterocolitica Enteroaggregative E. Coli (EAEC) Enteropathogenic E. Coli (EPEC) Enterotoxigenic E. Coli (ETEC) Shiga-like toxin-producing E. Coli (STEC) E. Coli O157 Shigella/Enteroinvasive E. Coli (EIEC) Viruses: Adenovirus F 40/41 Astrovirus Norovirus GI/GII Rotavirus A Sapovirus Parasites: Cryptosporidium Cyclospora cayetanensis Entamoeba histolytica Giardia duodenalis Timothy Marquez MD MICROBIOLOGY - [facility] AL ORDERABLES Performing Organization Address City/[facility]/ZIP Co de Phone Number [facility]# [id number] [address] [place] [address] * XR SMALL BOWEL WATER EMETERIO CONTRAST (12/29/2020 11:14 AM CDT) Anatomical Region Laterality Modality Abdomen Computed Radiogr aphy 12/29/2020 11:1 5 AM CDT Impressions 12/29/2020 12:12 PM CDT IMPRESSION: 1. No evidence of small bowel obstruction. Narrative 12/29/2020 12:12 PM CDT XR SMALL BOWEL WATER EMETERIO CONTRAST DATE: 12/29/2020 11:14 AM DICTATION LOCATION: Location [address] [place] [address] HISTORY: Evaluate for obstruction. FLUOROSCOPY TIME: None. NUMBER OF IMAGES: Seven. FINDINGS/TECHNIQUE: Packer Denture images were obtained. No dilated small or large bowel loops are identified. Oral contrast was then given and serial radiographs of the abdomen were obtained. There is rapid passage of contrast through nondilated small bowel loops with appearance in the colon by 90 minutes. ??It should be noted that there is no colon within the right abdomen likely related to previous surgery. The visible osseous structures are unremarkable. Procedure Note Fredo Campbell MD - 12/29/2020 XR SMALL BOWEL WATER EMETERIO CONTRAST DATE: 12/29/2020 11:14 AM DICTATION LOCATION: Location [address] [place] [address] HISTORY: Evaluate for obstruction. FLUOROSCOPY TIME: None. NUMBER OF IMAGES: Seven. FINDINGS/TECHNIQUE: Packer Denture images were obtained. No dilated small or large bowel loops are identified. Oral contrast was then given and serial radiographs of the abdomen were obtained. There is rapid passage of contrast through nondilated small bowel loops with appearance in the colon by 90 minutes. It should be noted that there is no colon within the right abdomen likely related to previous surgery. The visible osseous structures are unremarkable. IMPRESSION: 1. No evidence of small bowel obstruction. Shobha Choi MD DIAGNOSTIC IMAGING O RDERABLES * (ABNORMAL) COMPREHENSIVE METABOLIC PANEL (12/29/2020 7:15 AM CDT) SODIUM 137 136 - 145 mmol/L 12/29/2020 8:08 AM CDT [facility] LABORATORY SERVICES - [facility] POTASSIUM 3.8 3.5 - 5.0 mmol/L 12/29/2020 8:08 AM CDT [facility] LABORATORY SERVICES - [facility] CHLORIDE 105 98 - 107 mmol/L 12/29/2020 8:08 AM CDT [facility] LABORATORY SERVICES - [facility] CO2 22 22 - 29 mmol/L 12/29/2020 8:08 AM [facility] [employer] LABORATORY [facility] CALCIUM 8.7 8.6 - 10.2 mg/dL 12/29/2020 8:08 AM [facility] BUN 10 6 - 20 mg/dL 12/29/2020 8:08 AM [facility] CREATININE 0.70 0.51 - 0.95 mg/dL 12/29/2020 8:08 AM [facility] [employer] LABORATORY SERVICES - [facility] GLUCOSE 125(H) 74 - 99 mg/dL 12/29/2020 8:08 AM [facility] [employer] LABORATORY [facility] TOTAL PROTEIN 6.3(L) 6.7 - 8.6 g/dL 12/29/2020 8:08 AM [facility] [employer] LABORATORY [facility] . [facility] ALBUMIN 3.6 3.5 - 5.2 g/dL 12/29/2020 8:08 AM [facility] [employer] LABORATORY [facility] - . [facility] BILIRUBIN TOTAL 0.4 0.3 - 1.2 mg/dL 12/29/2020 8:08 AM [facility] [employer] LABORATORY [facility] ALKALINE PHOSPHATASE 74 35 - 104 U/L 12/29/2020 8:08 AM [facility] [employer] [facility] AST 18 <33 U/L 12/29/2020 8:08 AM [facility] [employer] LABORATORY [facility] ALT 21 <34 U/L 12/29/2020 8:08 AM [facility] [employer] LABORATORY [facility] - . [facility] GFR >60 mL/min/1.7 3 sq meter 12/29/2020 8:08 AM [facility] [employer] LAB[facility]ATORY SERVICES - [facility] Comment: eGFR has not been validated for use in the elderly (> 70 years of age), women, patients with serious co-morbid conditions, or persons with extremes of body size or muscle mass and should also be interpreted with caution in patients with acute kidney failure, dialysis dependent patients, patients reporting exceptional dietary intake (e.g. vegetarian diet, high protein diets, creatine supplementation), and patients with severe liver disease. Based on National Kidney Disease Education Program If patient is , please refer to the GFR result. GFR, >60 mL/min/1.7 3 sq meter 12/29/2020 8:08 AM T [facility] LABORATORY SERVICES [facility] ANION GAP 10 8 - 16 mmol/L 12/29/2020 8:08 AM T [facility] LABORATORY [facility] Blood Venipuncture / Unknown 12/29/2020 7:15 AM CDT 12/29/2020 7:29 AM CDT [facility] LABORATORY SERVICES [facility] - 12/29/2020 8:08 AM CDT Samples containing indocyanine green cause interferences on Total and/or Direct Bilirubin and must not be measured. Shobha Choi MD CHEMISTRY ORDERABLES [facility] [id number] [address] [place] [address] * (ABNORMAL) CBC WITH DIFFERENTIAL (12/29/2020 7:15 AM CDT) Pathologist [facility] WBC 9.5 4.0 - 9.8 K/uL 12/29/2020 8:23 AM T [facility] LABORATORY SERVICES [facility] RBC 3.85(L) 3.90 - 4.90 M/uL 12/29/2020 8:23 AM CDT [facility] LABORATORY [facility] HEMOGLOBIN 11.6(L) 11.8 - 14.8 g/dL 12/29/2020 8:23 AM T [facility] LABORATORY [facility] HEMATOCRIT 36.6 35.5 - 44.0 % 12/29/2020 8:23 AM CDT [facility] LABORATORY SERVICES [facility] MCV 95.1 82.0 - 99.0 fL 12/29/2020 8:23 AM CDT [facility] LABORATORY SERVICES [facility] MCH 30.1 27.2 - 32.6 pg 12/29/2020 8:23 AM CDT [facility] LABORATORY SERVICES [facility] MCHC 31.7 31.5 - 35.5 g/dL 12/29/2020 8:23 AM T [facility] LABORATORY [facility] RDW 13.7 11.5 - 14.5 % 12/29/2020 8:23 AM CDT [facility] LABORATORY SERVICES - [facility] RDW-STDEV 48.0 37.1 - 48.7 fL 12/29/2020 8:23 AM [employer] LABORATORY SERVICES - [facility] PLATELETS 261 140 - 350 K/uL 12/29/2020 8:23 AM [employer] LABORATORY SERVICES - [facility] MPV 9.2(L) 9.3 - 12.4 fL 12/29/2020 8:23 AM [employer] LABORATORY SERVICES - . [facility] NEUTROPHILS 57 % 12/29/2020 8:23 AM [employer] LABORATORY SERVICES - . [facility] LYMPHOCYTES 29 % 12/29/2020 8:23 AM [employer] LAB[facility]ATORY SERVICES [facility] MONOCYTES 10 % 12/29/2020 8:23 AM [employer] LABORATORY SERVICES - . [facility] EOSINOPHILS 3 % 12/29/2020 8:23 AM [employer] LABORATORY SERVICES - . [facility] BASOPHILS 0 % 12/29/2020 8:23 AM [employer] SERVICES - . [facility] IMMATURE GRANULOCYTES 1 % 12/29/2020 8:23 AM [employer] LABORATORY SERVICES - . [facility] Comment:IG (Immature Granulo cyte) count includes Metamyelocytes, Myelocytes, and Promyelocytes NEUTROPHIL ABSOLUTE 5.38 1.90 - 7.00 K/uL 12/29/2020 8:23 AM [employer] LABORATORY SERVICES - . [facility] LYMPHOCYTE ABSOLUTE 2.77 0.70 - 4.50 K/uL 12/29/2020 8:23 AM [employer] LABORATORY SERVICES - . [facility] MONOCYTE ABSOLUTE 0.93 0.10 - 1.30 K/uL 12/29/2020 8:23 AM [employer] LABORATORY SERVICES - . [facility] EOSINOPHIL ABSOLUTE 0.30 0.00 - 0.70 K/uL 12/29/2020 8:23 AM [employer] LABORATORY SERVICES - . [facility] BASOPHILS ABSOLUTE 0.04 0.00 - 0.20 K/uL 12/29/2020 8:23 AM [employer] SERVICES - . [facility] IMMATURE GRANULOCYTES ABSOLUTE 0.06(H) 0.00 - 0.03 K/uL 12/29/2020 8:23 AM [employer] LABORATORY SERVICES - . [facility] Blood Venipuncture / Unknown 12/29/2020 7:15 AM CDT 12/29/2020 7:29 AM CDT Zaid Dunn NP HEMATOLOGY ORDERABL ES [facility]# [id number] [address] [place] [address] * CT ABDOMEN PELVIS W CONTRAST (12/28/2020 4:54 PM CDT) Anatomical Region Laterality Modality Abdomen Computed Tomogra phy 12/28/2020 4:55 PM CDT Impressions 12/31/2020 8:49 AM CDT IMPRESSION: ?? Nonspecific enteritis involving primarily the proximal small [...] additional finding and no other acute process. The examination was performed with the adjustment of mA according to the patient size and/or the use of Iterative Reconstruction Technique. ?? DICTATION LOCATION: Location [facility] Narrative 12/31/2020 8:49 AM CDT EXAM: CT ABDOMEN AND PELVIS WITH IV CONTRAST DATE: 12/28/2020 4:54 PM HISTORY: Abdominal pain, acute, nonlocalized. ?? COMPARISON: November 01, 2019. TECHNIQUE: 5 mm axial images through the abdomen and pelvis following administration of IV contrast. CONTRAST: Iopamidol 61% intravenous solution Given:120 mL. FINDINGS: Lung bases are clear. Fatty infiltration of the liver is again identified. Liver is normal in size. The spleen is normal in size. The pancreas and adrenal glands are unremarkable. There is a nonobstructing stone in the lower pole of the right kidney. The kidneys are otherwise unremarkable. There is no hydronephrosis. Abdominal aorta is unremarkable with no aneurysm or dissection. The gallbladder is surgically absent. There is no bile duct dilatation. The uterus and adnexal regions are unremarkable. There is a small amount of free fluid in the pelvis. Bowel malrotation is again identified. Most of the small bowel is seen in the right abdomen and right pelvis. The cecum is identified in the mid pelvis. The appendix is identified in the superior anterior aspect of the left pelvis. The appendix is normal in appearance. There has however been development of nonspecific bowel wall thickening involving the proximal small bowel predominantly with large amounts of fluid and air-fluid levels noted within the bowel again predominantly within the proximal small bowel. Findings are consistent with a nonspecific enteritis primarily involving the jejunum. The colon is relatively spared. Some of the proximal small bowel loops are distended up to 4.1 cm in diameter. Findings may be due to ileus but partial or early small bowel obstruction is not excluded. The distal small bowel is relatively decompressed. There is a free fluid noted in the upper abdomen in the area of thickened bowel wall loops consistent with nonspecific inflammation. The hepatic veins are patent. The portal veins are patent. The SMV is patent. There is no free air, focal drainable abscess, or mesenteric venous gas identified. The included bones are unremarkable. Procedure Note Beto Green MD - 12/31/2020 EXAM: CT ABDOMEN AND PELVIS WITH IV CONTRAST DATE: 12/28/2020 4:54 PM HISTORY: Abdominal pain, acute, nonlocalized. COMPARISON: November 01, 2019. TECHNIQUE: 5 mm axial images through the abdomen and pelvis following administration of IV contrast. CONTRAST: Iopamidol 61% intravenous solution Given:120 mL. FINDINGS: Lung bases are clear. Fatty infiltration of the liver is again identified. Liver is normal in size. The spleen is normal in size. The pancreas and adrenal glands are unremarkable. There is a nonobstructing stone in the lower pole of the right kidney. The kidneys are otherwise unremarkable. There is no hydronephrosis. Abdominal aorta is unremarkable with no aneurysm or dissection. The gallbladder is surgically absent. There is no bile duct dilatation. The uterus and adnexal regions are unremarkable. There is a small amount of free fluid in the pelvis. Bowel malrotation is again identified. Most of the small bowel is seen in the right abdomen and right pelvis. The cecum is identified in the mid pelvis. The appendix is identified in the superior anterior aspect of the left pelvis. The appendix is normal in appearance. There has however been development of nonspecific bowel wall thickening involving the proximal small bowel predominantly with large amounts of fluid and air-fluid levels noted within the bowel again predominantly within the proximal small bowel. Findings are consistent with a nonspecific enteritis primarily involving the jejunum. The colon is relatively spared. Some of the proximal small bowel loops are distended up to 4.1 cm in diameter. Findings may be due to ileus but partial or early small bowel obstruction is not excluded. The distal small bowel is relatively decompressed. There is a free fluid noted in the upper abdomen in the area of thickened bowel wall loops consistent with nonspecific inflammation. The hepatic veins are patent. The portal veins are patent. The SMV is patent. There is no free air, focal drainable abscess, or mesenteric venous gas identified. The included bones are unremarkable. IMPRESSION: Nonspecific enteritis involving primarily the proximal [...] additional finding and no other acute process. The examination was performed with the adjustment of mA according to the patient size and/or the use of Iterative Reconstruction Technique. DICTATION LOCATION: Location [address] [place] [address] ORDERABLES * URINE CULTURE (12/28/2020 4:00 PM CDT) CULTURE Polymicrobial growth consistent with normal urethral len and/or colonizing bacteria 12/30/2020 7:10 AM CDT [facility] Urine URINE SPECIMEN OBTAINED BY CLEAN CATCH PROCEDURE / Unknown Collection / Unknown 12/28/2020 4:00 PM CDT 12/28/2020 4:00 PM CDT Zaid Dunn NP MICROBIOLOGY - [facility] ORDERABLES [facility]# [id number] [address] [place] [address] * (ABNORMAL) URINALYSIS WITH REFLEX MICROSCOPIC (12/28/2020 4:00 PM CDT) COLOR UA Yellow Pale to Dark Yellow 12/28/2020 4:20 PM CDT [employer] [facility] - [facility] CLARITY UA Cloudy(A) Clear 12/28/2020 4:20 PM CDT [employer] [facility] SPECIFIC GRAVITY UA 1.031 1.003 - 1.035 12/28/2020 4:20 PM CDT [employer] [facility] PH UA 5.0 5.0 - 8.0 12/28/2020 4:20 PM CDT [employer] [facility] LEUKOCYTE ESTERASE UA 2+(A) Negative 12/28/2020 4:20 PM CDT [employer] [facility] NITRITE UA Negative Negative 12/28/2020 4:20 PM CDT [employer] [facility] PROTEIN UA 1+(A) Negative 12/28/2020 4:20 PM CDT [employer] [facility] GLUCOSE UA Negative Negative 12/28/2020 4:20 PM CDT [employer] [facility] KETONES UA Negative Negative 12/28/2020 4:20 PM CDT [employer] [facility] UROBILINOGEN UA 4.0(A) <2.0 mg/dL 4:20 PM CDT [employer] [facility] BILIRUBIN UA Negative Negative 12/28/2020 4:20 PM CDT [employer] [facility] BLOOD UA Negative Negative 12/28/2020 4:20 PM CDT [employer] [facility] WBC UA 26-50(A) 0 - 2 /hpf 12/28/2020 4:20 PM CDT [employer] [facility] RBC UA 3-5(A) 0 - 2 /hpf 12/28/2020 4:20 PM CDT [employer] [facility] BACTERIA UA Negative Negative /hpf 12/28/2020 4:20 PM CDT [employer] [facility] EPITHELIAL CELLS, URINE 11-25(A) 0 - 5 /hpf 12/28/2020 4:20 PM CDT [facility] LABORATORY [facility] Urine URINE SPECIMEN OBTAINED BY CLEAN CATCH PROCEDURE / Unknown Collection / Unknown 12/28/2020 4:00 PM CDT 12/28/2020 4:00 PM CDT Timothy Marquez MD URINE ORDERABLES Performing Organization Address [facility]/ZIP Co de Phone Number [facility]# [id number] [address] [place] [address] * POC , URINE (12/28/2020 3:51 PM CDT) HCG QUAL URINE Negative Negative 12/28/2020 3:51 PM CDT [facility] LABORATORY [facility] CLINICAL REIMBURSEMENT SPECIALIST NAME POC DERIAN, TESSA 12/28/2020 3:51 PM CDT [facility] LABORATORY [facility] SPECIFIC GRAVITY UA POC 1.025 1.000 - 1.030 12/28/2020 3:51 PM CDT [facility] [employer] [facility] Urine 12/28/2020 3:51 PM CDT 12/28/2020 3:58 PM CDT Timothy Marquez MD POINT OF CARE TESTIN G Performing Organization Address [facility] Co de Phone Number [facility] [employer] [facility] [employer] [facility]# [id number] [address] [place] [address] * LIPASE (12/28/2020 3:42 PM CDT) LIPASE 23 13 - 60 U/L 12/28/2020 4:12 PM CDT [facility] LABORATORY [facility] Blood Venipuncture / Unknown 12/28/2020 3:42 PM CDT 12/28/2020 3:42 PM CDT Timothy Marquez MD CHEMISTRY ORDERABLES [facility] LABORATORY SERVICES [facility] JANES# [id number] [address] [place] [address] * (ABNORMAL) COMPREHENSIVE METABOLIC PANEL (12/28/2020 3:42 PM CDT) SODIUM 137 136 - 145 mmol/L 12/28/2020 4:14 PM CDT [facility] LABORATORY SERVICES [facility] POTASSIUM 12/28/2020 4:14 PM CDT [facility] LABORATORY SERVICES [facility] Comment:Test cannot be perfo rmed due to gross hemolysis present. Redraw if indicated. CHLORIDE 104 98 - 107 mmol/L 12/28/2020 4:14 PM CDT [facility] LABORATORY [facility] CO2 19(L) 22 - 29 mmol/L 12/28/2020 4:14 PM T [facility] LABORATORY SERVICES [facility] CALCIUM 9.8 8.6 - 10.2 mg/dL 12/28/2020 4:14 PM CDT [facility] LABORATORY SERVICES [facility] BUN 12 6 - 20 mg/dL 12/28/2020 4:14 PM T [facility] LABORATORY [facility] CREATININE 0.57 0.51 - 0.95 mg/dL 12/28/2020 4:14 PM T [facility] LABORATORY [facility] GLUCOSE 129(H) 74 - 99 mg/dL 12/28/2020 4:14 PM T [facility] LABORATORY [facility] TOTAL PROTEIN 8.5 6.7 - 8.6 g/dL 12/28/2020 4:14 PM T [facility] LABORATORY [facility] ALBUMIN 4.4 3.5 - 5.2 g/dL 12/28/2020 4:14 PM T [facility] LABORATORY [facility] BILIRUBIN TOTAL 0.5 0.3 - 1.2 mg/dL 12/28/2020 4:14 PM T [employer] LABORATORY [facility] ALKALINE PHOSPHATASE 12/28/2020 4:14 PM T [facility] LABORATORY [facility] Comment:Test cannot be perfo rmed due to gross hemolysis present. Redraw if indicated. AST 39(H) <33 U/L 12/28/2020 4:14 PM CDT [facility] Comment:Hemolysis present. R esult may be falsely elevated. ALT 26 <34 U/L 12/28/2020 4:14 PM CDT [facility] Comment:Hemolysis present. R esult may be falsely elevated. GFR >60 mL/min/1.7 3 sq meter 12/28/2020 4:14 PM CDT [facility] Comment: eGFR has not been validated for use in the elderly (> 70 years of age), women, patients with serious co-morbid conditions, or persons with extremes of body size or muscle mass and should also be interpreted with caution in patients with acute kidney failure, dialysis dependent patients, patients reporting exceptional dietary intake (e.g. vegetarian diet, high protein diets, creatine supplementation), and patients with severe liver disease. Based on National Kidney Disease Education Program If patient is , please refer to the GFR result. GFR, >60 mL/min/1.7 3 sq meter 12/28/2020 4:14 PM CDT [facility] ANION GAP 14 8 - 16 mmol/L 12/28/2020 4:14 PM CDT [facility] [employer] [facility] Blood Venipuncture / Unknown 12/28/2020 3:42 PM CDT 12/28/2020 3:42 PM CDT Narrative [facility] - 12/28/2020 4:14 PM CDT Samples containing indocyanine green cause interferences on Total and/or Direct Bilirubin and must not be measured. Timothy Marquez MD CHEMISTRY ORDERABLES [facility] [employer] [id number] [address] [facility] [address] [place] [address] * (ABNORMAL) CBC WITH DIFFERENTIAL (12/28/2020 3:42 PM CDT) Pathologist [facility] WBC 15.3(H) 4.0 - 9.8 K/uL 12/28/2020 3:48 PM CDT [facility] [employer] [facility] [employer] [facility] RBC 4.85 3.90 - 4.90 M/uL 12/28/2020 3:48 PM CDT [employer] [facility] - [facility] HEMOGLOBIN 14.7 11.8 - 14.8 g/dL 12/28/2020 3:48 PM CDT [employer] [facility] HEMATOCRIT 44.0 35.5 - 44.0 % 12/28/2020 3:48 PM CDT [employer] [facility] MCV 90.7 82.0 - 99.0 fL 12/28/2020 3:48 PM CDT [employer] [facility] MCH 30.3 27.2 - 32.6 pg 12/28/2020 3:48 PM CDT [employer] [facility] MCHC 33.4 31.5 - 35.5 g/dL 12/28/2020 3:48 PM CDT [employer] [facility] RDW 13.3 11.5 - 14.5 % 12/28/2020 3:48 PM CDT [employer] [facility] - [facility] RDW-STDEV 44.8 37.1 - 48.7 fL 12/28/2020 3:48 PM CDT [employer] [facility] PLATELETS 387(H) 140 - 350 K/uL 12/28/2020 3:48 PM CDT [employer] [facility] MPV 9.1(L) 9.3 - 12.4 fL 12/28/2020 3:48 PM CDT [employer] [facility] SERVICES - . [facility] NEUTROPHILS 79 % 12/28/2020 3:48 PM CDT [employer] LABORATORY SERVICES - . [facility] LYMPHOCYTES 13 % 12/28/2020 3:48 PM CDT [employer] [facility] SERVICES - . [facility] MONOCYTES 6 % 12/28/2020 3:48 PM CDT [employer] [facility] - . [facility] EOSINOPHILS 1 % 12/28/2020 3:48 PM CDT [employer] [facility] - . [facility] BASOPHILS 0 % 12/28/2020 3:48 PM CDT [employer] [facility] SERVICES - . [facility] IMMATURE GRANULOCYTES 1 % 12/28/2020 3:48 PM CDT [employer] [facility] SERVICES - . [facility] Comment:IG (Immature Granulo cyte) count includes Metamyelocytes, Myelocytes, and Promyelocytes NEUTROPHIL ABSOLUTE 12.10(H) 1.90 - 7.00 K/uL 12/28/2020 3:48 PM CDT [facility]ATORY SERVICES - [facility] LYMPHOCYTE ABSOLUTE 1.97 0.70 - 4.50 K/uL 12/28/2020 3:48 PM CDT [facility] LABORATORY SERVICES - . [facility] MONOCYTE ABSOLUTE 0.95 0.10 - 1.30 K/uL 12/28/2020 3:48 PM [facility]T [facility] EOSINOPHIL ABSOLUTE 0.20 0.00 - 0.70 K/uL 12/28/2020 3:48 PM CDT [facility] BASOPHILS ABSOLUTE 0.04 0.00 - 0.20 K/uL 12/28/2020 3:48 PM CDT [employer] [facility]ORY SERVICES - [facility] IMMATURE GRANULOCYTES ABSOLUTE 0.07(H) 0.00 - 0.03 K/uL 12/28/2020 3:48 PM CDT [employer] LABORATORY SERVICES [facility] Blood Venipuncture / Unknown 12/28/2020 3:42 PM CDT 12/28/2020 3:42 PM CDT Timothy Marquez MD HEMATOLOGY ORDERABLE S [facility] [employer] [facility]# [id number] [address] [place] [address] * POC CREATININE (12/28/2020 3:40 PM CDT) CREATININE POC 0.60 0.50 - 1.00 mg/dL 12/28/2020 3:40 PM CDT [facility] LABORATORY SERVICES [facility] GFR >60 mL/min/1. 73 sq meter 12/28/2020 3:40 PM CDT [employer] LABORATORY SERVICES [facility] Comment: eGFR has not been validated for use in the elderly (> 70 years of age), women, patients with serious co-morbid conditions, or persons with extremes of body size or muscle mass and should also be interpreted with caution in patients with acute kidney failure, dialysis dependent patients, patients reporting exceptional dietary intake (e.g. vegetarian diet, high protein diets, creatine supplementation), and patients with severe liver disease. Based on National Kidney Disease Education Program If patient is , please refer to the GFR result. GFR, >60 mL/min/1. 73 sq meter 12/28/2020 3:40 PM CDT [facility] CLINICAL REIMBURSEMENT SPECIALIST NAME GURDEEP TAVAREZ 12/28/2020 3:40 PM CDT [facility] Blood, whole 12/28/2020 3:40 PM CDT 12/28/2020 3:58 PM CDT Timothy Marquez MD POINT OF CARE TESTIN G [facility] CLIA# [id number] [address] [place] [address] * EKG 12-LEAD (12/28/2020 3:04 PM CDT) 12/28/2020 3:04 PM CDT Narrative INTERFACE SYSTEM - 12/28/2020 4:45 PM CDT ? Stationary ECG Study ? [facility] ? Test Date: ?12/28/2020 3:04 PM Pat Name: ? CHAD PHELAN ? Department: ?? 40 ?Room: ? 26 26 Gender: ? F ?Bead Stringer: ?? [id number] : ?1985 ? Requested By: TIMOTHY MARQUEZ ?? Order Number: [id number] ?Reading MD: ?? Merlin Barnard ? Measurements Intervals ?[place] ? Rate: ? 102 ?P: ?13 IL: ? 127 ?QRS: ?17 QRSD: ? 92 ? T: ?-8 QT: ? 329 ? QTc: ?429 ? Interpretive Statements ? Sinus tachycardia LVH by voltage Borderline T abnormalities Electronically Signed On 12-28-2020 16:45:41 CDT by Merlin Barnard Procedure Note Merlin Barnard MD - 12/28/2020 Stationary ECG Study [facility] Test Date: 12/28/2020 3:04 PM Pat Name: CHAD PHELAN Department: 40 Room: 26 26 Gender: F Bead Stringer: [id number] : 1985 Requested By: TIMOTHY MARQUEZ Order Number: [id number] Reading MD: Merlin Barnard Measurements Intervals [place] Rate: 102 P: 13 IL: 127 QRS: 17 QRSD: 92 T: -8 QT: 329 QTc: 429 Interpretive Statements Sinus tachycardia LVH by voltage Borderline T abnormalities Electronically Signed On 12-28-2020 16:45:41 CDT by Merlin Barnard Timothy Marquez MD ECG ORDERABLES INTERFACE SYSTEM Refer to clinic/hospital department documented in this encounter Visit Diagnoses Diagnosis Ileus- Primary Paralytic ileus Ileus Paralytic ileus Infectious gastroenteritis Infectious colitis, enteritis, and gastroenteritis Type 2 diabetes mellitus without complication, without long-term current use of insulin HTN (hypertension), benign Essential hypertension, benign Hyperlipidemia Other and unspecified hyperlipidemia Asthma Unspecified asthma History of gastroschisis GERD (gastroesophageal reflux disease) Esophageal reflux Major depression Major depressive disorder, single episode, unspecified documented in this encounter Administered Medications Inactive Administered Medications - up to 3 most recent administrations Medication Order MAR Action Action Date Dose Rate Site albuterol (PROVENTIL,VENTOLIN) 2.5 mg /3 mL (0.083 %) inhalation solution 2.5 mg 2.5 mg, Inhalation, EVERY 6 HOURS PRN RESPIRATORY, Starting on 12/29/20 at 0120, Until 12/30/20 at 1650, Shortness of Breath, Routine atorvastatin (LIPITOR) tablet 80 mg 80 mg, Oral, DAILY AT BEDTIME, First dose on 12/29/20 at 2200, Until Discontinued, Routine Given 12/29/2020 9:57 PM CDT 80 mg buPROPion HCL (WELLBUTRIN XL) 24 hour tablet 150 mg 150 mg, Oral, DAILY EARLY, First dose on 12/29/20 at 0600, Until Discontinued, Routine, Previous Med: buPROPion HCL (Wellbutrin XL) 150 mg Extended Release 24 hour tablet - Orig Sig - Take 1 Tablet (150 mg) by mouth daily in the morning. Given 12/30/2020 5:36 AM CDT 150 mg cetirizine (ZyrTEC) tablet 10 mg 10 mg, Oral, DAILY, First dose on 12/29/20 at 0900, Until Discontinued, Routine, Previous Med: cetirizine (ZyrTEC) 10 mg tablet - Orig Sig - Take 10 mg by mouth daily. Given 12/30/2020 8:46 AM CDT 10 mg enoxaparin (LOVENOX) injection 40 mg 40 mg, subCUT, EVERY 24 HOURS, First dose on 12/29/20 at 1500, Until Discontinued, Routine, Indication: Prophylaxis of VTE Given 12/29/2020 3:36 PM CDT 40 mg Abdomen, Left Lower Quadrant fluticasone propionate (FLONASE) 50 mcg/spray nasal inhaler 2 [place] 2 [place], Both Nostrils, DAILY, First dose on 12/29/20 at 0900, Until Discontinued, Routine, Previous Med: fluticasone propionate (FLONASE) 50 mcg/spray [place], Suspension nasal inhaler - Orig Sig - Use 2 sprays each nostril twice a day for 7-10 days Given 12/30/2020 8:46 AM CDT 2 Sprays HYDROcodone-acetaminoph en (NORCO) 5-325 mg per tablet 1 Tablet 1 Tablet, Oral, EVERY 4 HOURS PRN, Starting on 12/29/20 at 2150, Until 12/30/20 at 1650, Pain (See admin instructions), Routine Given 12/30/2020 5:36 AM CDT 1 Tablet Given 12/30/2020 1:36 AM CDT 1 Tablet Given 12/29/2020 9:58 PM CDT 1 Tablet iohexol (OMNIPAQUE) 350 mg/mL oral solution 200 mL 200 mL, Oral, INTRA-PROCEDURE ONCE, 1 dose, Starting on 12/29/20 at 0736, Until 12/29/20 at 0920, Routine Given 12/29/2020 9:20 AM CDT 200 mL iopamidoL (ISOVUE-300) 61 % injection (drawn from multi-use bulk pack) 120 mL 120 mL, IV, INTRA-PROCEDURE ONCE, 1 dose, Starting on Thu12/28/20 at 1646, Until Thu12/28/20 at 1654, Routine Contrast Given 12/28/2020 4:54 PM CDT 120 mL morphine 4 mg/mL injection 4 mg 4 mg, IV, ONE TIME ONLY, 1 dose, On Thu12/28/20 at 1515, Routine Given 12/28/2020 3:42 PM CDT 4 mg morphine 4 mg/mL injection 4 mg 4 mg, IV, ONE TIME ONLY, 1 dose, On Thu12/28/20 at 1815, Stat Given 12/28/2020 6:11 PM CDT 4 mg morphine 4 mg/mL injection 4 mg 4 mg, IV, EVERY 4 HOURS PRN, Starting on 12/29/20 at 0045, Until 12/29/20 at 2151, Pain (See admin instructions), Routine Given 12/29/2020 12:26 PM CDT 4 mg Given 12/29/2020 1:32 AM CDT 4 mg naloxone (NARCAN) 0.4 mg/mL injection 0.1 mg 0.1 mg, IV, SEE ADMIN INSTRUCTIONS, Starting on 12/29/20 at 0046, Until Thu12/30/20 at 1650, Routine ondansetron (ZOFRAN) 4 mg/2 mL injection 4 mg 4 mg, IV, ONE TIME ONLY, 1 dose, On Thu12/28/20 at 1515, Routine Given 12/28/2020 3:39 PM CDT 4 mg ondansetron (ZOFRAN) 4 mg/2 mL injection 4 mg 4 mg, IV, EVERY 6 HOURS PRN, Starting on 12/29/20 at 0058, Until Thu12/30/20 at 1650, Nausea/Emesis, Routine Given 12/29/2020 12:22 PM CDT 4 mg pantoprazole (PROTONIX) tablet 40 mg 40 mg, Oral, DAILY, First dose on 12/29/20 at 0900, Until Discontinued, Routine, Previous Med: pantoprazole (PROTONIX) 40 mg Tablet, Delayed Release (E.C.) - Orig Sig - Take 1 Tablet (40 mg) by mouth daily. , Indication: Gastroesophageal reflux disease (GERD) Given 12/30/2020 8:46 AM CDT 40 mg sertraline (ZOLOFT) tablet 100 mg 100 mg, Oral, DAILY, First dose on 12/29/20 at 0900, Until Discontinued, Routine, Previous Med: sertraline (ZOLOFT) 100 mg tablet - Orig Sig - Take 1 Tablet (100 mg) by mouth daily. Given 12/30/2020 8:46 AM CDT 100 mg sodium chloride 0.9% bolus solution 1,000 mL 1,000 mL, IV, ONE TIME ONLY, 1 dose, On Thu12/28/20 at 1515, at 2,000 mL/hr, Administer over 30 Minutes, Routine Bolus 12/28/2020 3:48 PM CDT 1,000 mL 2000 mL/hr sodium chloride 0.9% infusion IV, at 100 mL/hr, CONTINUOUS, Starting on 12/29/20 at 0100, Until 12/29/20 at 1517, Routine Restarted 12/29/2020 2:42 PM CDT 100 mL/hr New Bag 12/29/2020 1:19 AM CDT 100 mL/hr sodium chloride flush injection 10 mL 10 mL, IV, ONE TIME ONLY, 1 dose, On Thu12/28/20 at 1700, Routine Given 12/28/2020 4:55 PM CDT 10 mL documented in this encounter Active and Recently Administered Medications Times are shown in CDT. Scheduled Medication Order 12/28/2020 12/29/2020 12/30/2020 atorvastatin (LIPITOR) tablet 80 mg 80 mg, Oral, DAILY AT BEDTIME, First dose on 12/29/20 at 2200, Until Discontinued, Routine 2156 (Given - Provider: Elo Stokes, RN) buPROPion HCL (WELLBUTRIN XL) 24 hour tablet 150 mg 150 mg, Oral, DAILY EARLY, First dose on 12/29/20 at 0600, Until Discontinued, Routine, Previous Med: buPROPion HCL (Wellbutrin XL) 150 mg Extended Release 24 hour tablet - Orig Sig - Take 1 Tablet (150 mg) by mouth daily in the morning. 0102 (Held by Provider - Provider: Zaid Dunn NP - Reason: Procedure)0600 (Automatically Held)1441 (Order Unhold - Provider: Telma Palomo NP) 0536 (Given - Provider: Elo Stokes RN) cetirizine (ZyrTEC) tablet 10 mg 10 mg, Oral, DAILY, First dose on 12/29/20 at 0900, Until Discontinued, Routine, Previous Med: cetirizine (ZyrTEC) 10 mg tablet - Orig Sig - Take 10 mg by mouth daily. 0102 (Held by Provider - Provider: Zaid Dunn NP - Reason: Procedure)0900 (Automatically Held)1441 (Order Unhold - Provider: Telma Palomo NP) 0846 (Given - Provider: Deanne Jerry LPN) docusate sodium (COLACE) capsule 100 mg 100 mg, Oral, TWO TIMES DAILY, First dose on 12/29/20 at 0115, Until Discontinued, Routine, On hold since 12/29/2020 at 0103 until manually unheld 0103 (Held by Provider - Provider: Zaid Dunn NP - Reason: Procedure)0115 (Automatically Held - Provider: Zaid Dunn NP)0900 (Automatically Held - Provider: Zaid Dunn NP)2100 (Automatically Held - Provider: Zaid Dunn NP) 0900 (Automatically Held - Provider: Zaid Dunn NP)1650 (Order Unhold - Provider: PROVIDER, DISCHARGE PATIENT) enoxaparin (LOVENOX) injection 40 mg 40 mg, subCUT, EVERY 24 HOURS, First dose on 12/29/20 at 1500, Until Discontinued, Routine, Indication: Prophylaxis of VTE 1536 (Given - Provider: Nuha Jung LPN) fluticasone propionate (FLONASE) 50 mcg/spray nasal inhaler 2 [place] 2 [place], Both Nostrils, DAILY, First dose on 12/29/20 at 0900, Until Discontinued, Routine, Previous Med: fluticasone propionate (FLONASE) 50 mcg/spray [place], Suspension nasal inhaler - Orig Sig - Use 2 sprays each nostril twice a day for 7-10 days 1400 (Refused - Provider: Nuha Jung LPN) 0846 (Given - Provider: Deanne Jerry LPN) iohexol (OMNIPAQUE) 350 mg/mL oral solution 200 mL (COMPLETED) 200 mL, Oral, INTRA-PROCEDURE ONCE, 1 dose, Starting on 12/29/20 at 0736, Until 12/29/20 at 0920, Routine 0920 (Given - Provider: Estrella Townsend, RT - Comment: 0 wasted) iopamidoL (ISOVUE-300) 61 % injection (drawn from multi-use bulk pack) 120 mL (COMPLETED) 120 mL, IV, INTRA-PROCEDURE ONCE, 1 dose, Starting on Thu12/28/20 at 1646, Until Thu12/28/20 at 1654, Routine 1654 (Contrast Given - Provider: Ness Ballard, RT) lisinopriL (PRINIVIL) tablet 10 mg 10 mg, Oral, DAILY, First dose on 12/29/20 at 0900, Until Discontinued, Routine, Previous Med: lisinopriL (PRINIVIL) 10 mg tablet - Orig Sig - Take 1 Tablet (10 mg) by mouth daily. , On hold since 12/29/2020 at 0102 until manually unheld 010 (Held by Provider - Provider: Zaid Dunn NP - Reason: Procedure)0900 (Automatically Held) 0900 (Automatically Held)1650 (Order Unhold - Provider: PROVIDER, DISCHARGE PATIENT) morphine 4 mg/mL injection 4 mg (COMPLETED) 4 mg, IV, ONE TIME ONLY, 1 dose, On Thu12/28/20 at 1515, Routine 1542 (Given - Provider: Eula Marcum, SATURNINO) morphine 4 mg/mL injection 4 mg (COMPLETED) 4 mg, IV, ONE TIME ONLY, 1 dose, On Thu12/28/20 at 1815, Stat 1811 (Given - Provider: Eula Marcum RN) naloxone (NARCAN) 0.4 mg/mL injection 0.1 mg 0.1 mg, IV, SEE ADMIN INSTRUCTIONS, Starting on 12/29/20 at 0046, Until 12/30/20 at 1650, Routine ondansetron (ZOFRAN) 4 mg/2 mL injection 4 mg (COMPLETED) 4 mg, IV, ONE TIME ONLY, 1 dose, On Thu12/28/20 at 1515, Routine 1539 (Given - Provider: Eula Marcum RN) pantoprazole (PROTONIX) tablet 40 mg 40 mg, Oral, DAILY, First dose on 12/29/20 at 0900, Until Discontinued, Routine, Previous Med: pantoprazole (PROTONIX) 40 mg Tablet, Delayed Release (E.C.) - Orig Sig - Take 1 Tablet (40 mg) by mouth daily. , Indication: Gastroesophageal reflux disease (GERD) 010 (Held by Provider - Provider: Zaid Dunn NP - Reason: Procedure)0900 (Automatically Held)1441 (Order Unhold - Provider: Telma Palomo NP) 0846 (Given - Provider: Deanne Jerry LPN) sertraline (ZOLOFT) tablet 100 mg 100 mg, Oral, DAILY, First dose on 12/29/20 at 0900, Until Discontinued, Routine, Previous Med: sertraline (ZOLOFT) 100 mg tablet - Orig Sig - Take 1 Tablet (100 mg) by mouth daily. 0102 (Held by Provider - Provider: Zaid Dunn NP - Reason: Procedure)0900 (Automatically Held)1441 (Order Unhold - Provider: Telma Palomo NP) 0846 (Given - Provider: Deanne Jerry LPN) sodium chloride 0.9% bolus solution 1,000 mL (COMPLETED) 1,000 mL, IV, ONE TIME ONLY, 1 dose, On Thu12/28/20 at 1515, at 2,000 mL/hr, Administer over 30 Minutes, Routine 1548 (Bolus - Provider: Eula Marcum RN) sodium chloride flush injection 10 mL (COMPLETED) 10 mL, IV, ONE TIME ONLY, 1 dose, On Thu12/28/20 at 1700, Routine 1655 (Given - Provider: Ness Ballard RT) Continuous Medication Order 12/28/2020 12/29/2020 12/30/2020 sodium chloride 0.9% infusion (CANCELED) IV, at 100 mL/hr, CONTINUOUS, Starting on 12/29/20 at 0100, Until 12/29/20 at 1517, Routine 0119 (New Bag - Provider: Karo Stokes RN)1442 (Restarted - Provider: Nuha Jung LPN)1900 (Stopped - Provider: Elo Stokes RN) PRN Medication Order 12/28/2020 12/29/2020 12/30/2020 albuterol (PROVENTIL,VENTOLIN) 2.5 mg /3 mL (0.083 %) inhalation solution 2.5 mg 2.5 mg, Inhalation, EVERY 6 HOURS PRN RESPIRATORY, Starting on 12/29/20 at 0120, Until 12/30/20 at 1650, Shortness of Breath, Routine ALPRAZolam (XANAX) tablet 0.25 mg 0.25 mg, Oral, TWO TIMES DAILY PRN, Starting on 12/29/20 at 0055, Until 12/30/20 at 1650, Anxiety, Routine, Previous Med: ALPRAZolam (XANAX) 0.25 mg tablet - Orig Sig - Take 1 Tablet (0.25 mg) by mouth 2 times daily as needed for Anxiety. 0102 (Held by Provider - Provider: Zaid Dunn NP - Reason: Procedure)1441 (Order Unhold - Provider: Telma Palomo NP) aluminum - magnesium - simethicone (MYLANTA) 200-200-20 mg/5 mL oral suspension 30 mL 30 mL, Oral, EVERY 2 HOURS PRN, Starting on 12/29/20 at 0058, Until 12/30/20 at 1650, Indigestion, Routine bisacodyL (DULCOLAX) rectal suppository 10 mg 10 mg, Rectal, DAILY PRN, Starting on 12/29/20 at 0058, Until 12/30/20 at 1650, Constipation, Routine HYDROcodone-acetaminophen (NORCO) 5-325 mg per tablet 1 Tablet 1 Tablet, Oral, EVERY 4 HOURS PRN, Starting on 12/29/20 at 2150, Until 12/30/20 at 1650, Pain (See admin instructions), Routine 2158 (Given - Provider: Elo Stokes RN) 0136 (Given - Provider: Elo Stokes RN)0536 (Given - Provider: Elo Stokes RN) metoclopramide (REGLAN) 5 mg/mL injection 10 mg 10 mg, IV, EVERY 6 HOURS PRN, Starting on 12/29/20 at 0101, Until 12/30/20 at 1650, Nausea/Emesis, Routine morphine 4 mg/mL injection 4 mg (CANCELED) 4 mg, IV, EVERY 4 HOURS PRN, Starting on 12/29/20 at 0045, Until 12/29/20 at 2151, Pain (See admin instructions), Routine 0132 (Given - Provider: Elo Stokes RN)1226 (Given - Provider: GUILLERMO Salazar) ondansetron (ZOFRAN) 4 mg/2 mL injection 4 mg 4 mg, IV, EVERY 6 HOURS PRN, Starting on 12/29/20 at 0058, Until 12/30/20 at 1650, Nausea/Emesis, Routine 1222 (Given - Provider: GUILLERMO Salazar) documented in this encounter Additional Health Concerns Infection Onset Date Last Indicated Resolved Time R/O GI Pathogen 12/28/2020 12/29/2020 12/29/2020 2 :24 PM CDT documented as of this encounter Care Teams Dialysis Social Worker Relationship Specialty Start Date End Date Francis Pereyra MD PCP - General Family Practice 02/08/18 12/08/21 documented as of this encounter
--- OUTSIDE RECORDS SUMMARY | 2024-06-08 20:21 | XMS_ITS | Encounter Summary ---
Author Organization [facility] Address [address] Attn: [place] [address] Care Team Providers Care Weighbridge Operator Name Role Phone Francis Pereyra MD Primary Care Provider Rishi georges Encounter Details Date Type Department Care Team (Latest Contact Info) Description 11/23/2019 Travel Social History Tobacco Use Types Packs/Day [...] have Coronavirus / COVID-19? 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 Medicine [address] [facility] [place] [address] [place] [address] [place] [address] 10/27/2024 2:45 PM CDT Office Visit [facility] Gastroenterology [facility] [address] [place] [address] Bebo Benites MD [address] [address] documented as of this encounter Visit Diagnoses Not on filedocumented in this encounter Additional Health Concerns Assessment Noted Time PHQ-9 Depression Total Score: 6 08/29/19 20 10:00 AM CDT documented as of this encounter Care Teams Weighbridge Operator Relationship Specialty Start Date End Date Francis Pereyra MD PCP - General Family Practice 02/08/18 12/08/21 documented as of this encounter
--- OUTSIDE RECORDS SUMMARY | 2024-06-08 20:21 | XMS_ITS | Encounter Summary ---
Author Organization [facility] Address [address] [place] [address] Care Team Providers Care Rib Matcher And Fitter Name Role Phone Francis Pereyra MD Primary Care Provider Unava ilable Reason for Visit * Reason Comments Labs Only Encounter Details Date Type Department Care Team (Latest Contact Info) Description 12/27/2019 9:00 AM CDT Procedure visit [facility] [employer] [place] [address] [place] [address] Elevated glucose (Primary Dx); Elevated liver enzymes Social History Tobacco Use Types Packs/Day Years [...] have Coronavirus / COVID-19? No / Unsure 01/03/2020 7:28 AM CDT documented as of this encounter Progress Notes * Kim Chavez - 12/27/2019 10:08 AM CDT Pt came in for blood draw, Left AC, and right hand unsuccessful, right AC successful, 4 sticks total, pt tolerated well. documented in this encounter Plan of Treatment Upcoming Encounters Date Type Department Care Team (Late st Contact Info) Description 06/20/2024 9:30 AM RADIO COMMENTATOR Office Visit [facility] Orthopedic Surgery at the [facility] [address] [place] [address] [place] [address] [place] [address] 10/27/2024 2:45 PM CDT Office Visit [facility] Gastroenterology [facility] [address] [place] [address] Bebo Benites MD [address] [place] [address] documented as of this encounter Procedures Procedure Name Priority Date/Time Associated Diagnosis Comments HEMOGLOBIN A1C Routine 12/27/2019 10:09 AM CDT Elevated glucose COMPREHENSIVE METABOLIC PANEL Routine 12/27/2019 10:09 AM CDT Elevated glucose Elevated liver enzymes documented in this encounter Results * (ABNORMAL) COMPREHENSIVE METABOLIC PANEL (12/27/2019 10:09 AM CDT) GLUCOSE 100(H) 65 - 99 mg/dL [facility] BUN 12 6 - 20 mg/dL [facility] CREATININE 0.61 0.57 - 1.00 mg/dL [facility] GFR 119 >59 mL/min/1.7 3 [facility] GFR, 138 >59 mL/min/1.7 3 [facility] BUN/CREAT RATIO 20 9 - 23 [facility] SODIUM 141 134 - 144 mmol/L [facility] POTASSIUM 4.7 3.5 - 5.2 mmol/L [facility] CHLORIDE 103 96 - 106 mmol/L [facility] CO2 21 20 - 29 mmol/L [facility] CALCIUM 9.6 8.7 - 10.2 mg/dL [facility] TOTAL PROTEIN 7.2 6.0 - 8.5 g/dL [facility] ALBUMIN 4.4 3.8 - 4.8 g/dL [facility] GLOBULIN 2.8 1.5 - 4.5 g/dL [facility] ALBUMIN/GLOBULIN RATIO 1.6 1.2 - 2.2 [facility] BILIRUBIN TOTAL 0.4 0.0 - 1.2 mg/dL [facility] ALKALINE PHOSPHATASE 76 39 - 117 IU/L [facility] AST 23 0 - 40 IU/L [facility] ALT 31 0 - 32 IU/L [facility] Blood 12/27/2019 10:0 9 AM CDT 12/27/2019 Narrative [facility] - 12/28/2019 6:36 AM CDT Performed at: ??01 - [address] ??[id number] Die Set Up Worker: Elan Crawford PhD, Phone: ??[phone] Tessa Su NP CHEMISTRY ORDER MIGUELITO Performing Organization Address [facility] de Phone Number [facility] [phone] * (ABNORMAL) HEMOGLOBIN A1C (12/27/2019 10:09 AM CDT) HEMOGLOBIN A1C 6.2(H) 4.8 - 5.6 % [facility] Comment: ? Prediabetes: 5.7 - 6.4 ? Diabetes: >6.4 ? Glycemic control for adults with diabetes: <7.0 Blood 12/27/2019 10:0 9 AM CDT 12/27/2019 Narrative [facility] - 12/28/2019 6:36 AM CDT Performed at: ?? - [address] ??[id number] Die Set Up Worker: Elan Crawford PhD, Phone: ??[phone] Tessa uS NP CHEMISTRY ORDER MIGUELITO Performing Organization Address [facility]/ZIP Co de Phone Number [facility] [phone] documented in this encounter Visit Diagnoses Diagnosis Elevated glucose- Primary Other abnormal glucose Elevated liver enzymes Nonspecific elevation of levels of transaminase or lactic acid dehydrogenase (LDH) documented in this encounter Additional Health Concerns Assessment Noted Time PHQ-9 Depression Total Score: 6 08/29/19 20 10:00 AM CDT documented as of this encounter Care Teams Rib Matcher And Fitter Relationship Specialty Start Date End Date Francis Pereyra MD PCP - General Family Practice 02/08/18 12/08/21 documented as of this encounter
--- OUTSIDE RECORDS SUMMARY | 2024-06-08 20:21 | XMS_ITS | Encounter Summary ---
Author Organization [facility] Address [address] [place] [address] Care Team Providers Care Weaving Loom Operator Name Role Phone Francis Pereyra MD Primary Care Provider Unava ilable Reason for Visit * Reason Comments Establish Care Rt. wrist * Eval and Treat (Routine) - Closed Specialty Diagnoses / Procedures Referred By Contac t Referred To Contact Orthopedic Surgery Diagnoses Right wrist pain Francis Pereyra MD NO ADDRESS ON FILE [facility] Orthopedic Surgery [address] [address] Referral ID Status Reason Start Date Expiration Date V isits Requested Visits Authorized [id number] Closed STL CTS 05/06/2021 05/07/2022 1 1 Encounter Details Date Type Department Care Team (Late st Contact Info) Description 05/10/2021 8:30 AM SUPERVISOR POLICY CHANGE CLERKS Office Visit [facility] Orthopedics and Walk-In Care - [address] [address] [place] [address] [place] [address] Right carpal tunnel syndrome (Primary Dx) Social History [...] have Coronavirus / COVID-19? No / Unsure 05/10/2021 8:12 AM SUPERVISOR POLICY CHANGE CLERKS documented as of this encounter Last Filed Vital Signs Vital Sign Reading Time Taken Comments Blood Pressure - - Pulse - - Temperature - - Respiratory Rate - - Oxygen Saturation - - Inhaled Oxygen Concentration - - Weight - - Height 167.6 cm (5' 6 ) 05/10/2021 8:24 AM SUPERVISOR POLICY CHANGE CLERKS Body Mass Index - - documented in this encounter Progress Notes * Paddy Mackey MD - 05/10/2021 9:22 AM CST CC: Hand/finger numbness, tingling and discomfort. HPI: Lis Phelan is a 36 y.o. female who presents for the first time with the primary complaint of numbness, tingling, and to a lesser degree, vague radiating pain involving the right thumb, index, and long fingers. She rates this pain 7/10. She does note nocturnal awakening. She does note worsening symptoms with activity. She does not report any radiating electrical type pain or sensations coming from the proximal arm or neck. She first noted these symptoms 5 months ago, which had an insidious onset. She has had a reasonablecourse of nighttime splinting, and has not received a cortisone injection in the past for these symptoms. They feel as if non-operative treatment has failed to alleviate their symptoms. Past Medical, Surgical, Social, and Family History, [...] breaks Neuro: Sensation to light touch is Decreased in the median nerve distribution compared to the smallfinger. There is a negative Spurling's. MSK/Upper extremity: Examination of the right hand(s) shows normal posture. There is full [...] at the wrist. Carpal compression test ispositive. Imaging: No new films were obtained in the office today. EMG: Electrodiagnostics have been obtained. Which demonstrated mild delay right median SNAP velocity. A/P: Lis Phelan is a 36 y.o. female with and history and physical exam consistent with right carpal tunnel syndrome. 1. We discussed the nature of the suspected diagnosis, further workup, and treatment options, including bracing, cortisone injection, and surgery. 2. Given the patient's presenting history, prior testing, and symptoms, I did not recommend formal evaluation of suspected peripheral nerve compression with an electodiagnostic study at this point asshe has already undergone nerve conduction study. 3. Risks of surgery were discussed with [...] patient elected to proceed with surgery as described. The first postoperative follow-up will be 10-14 days post-op. On the day of the visit, I spent 30 minutes providing care to this patient including Preparing to see the patient, Performing a medically appropriate examination and/or evaluation, Counseling and educating the patient/family/caregiver, Ordering medications, tests or procedures, Documenting clinicalinformation in the medical record and Independently interpreting results and communicating results to the patient/family/caregiver (not separately reported). RVISOR POLICY CHANGE CLERKS documented in this encounter Plan of Treatment Upcoming Encounters Date Type Department Care Team (Late st Contact Info) Description 06/20/2024 9:30 AM SUPERVISOR POLICY CHANGE CLERKS Office Visit [facility] Orthopedic Surgery at the [facility] [address] [place] [address] [place] [address] [place] [address] 10/27/2024 2:45 PM CDT Office Visit [facility] Gastroenterology [facility] [address] [place] [address] Bebo Benites MD [address] [facility] [address] [place] [address] Scheduled Referrals Name Type Priority Associated Diagnoses Order Schedule AMB REFERRAL TO ORTHOPEDIC SURGERY Outpatient Referral Routine Right wrist pain Ordered: 05/06/2021 documented as of this encounter Visit Diagnoses Diagnosis Right carpal tunnel syndrome- Primary Carpal tunnel syndrome documented in this encounter Care Teams Weaving Loom Operator Relationship Specialty Start Date End Date Francis Pereyra MD PCP - General Family Practice 02/08/18 12/08/21 documented as of this encounter
--- OUTSIDE RECORDS SUMMARY | 2024-06-08 20:21 | XMS_ITS | Encounter Summary ---
Author Organization [facility] Address [address] [place] [address] Care Team Providers Care It Support Analyst Name Role Phone Francis Pereyra MD Primary Care Provider Unava ilable Reason for Visit * Reason Onset Date Comments Medication Refill 12/11/2020 Encounter Details Date Type Department Care Team (Late st Contact Info) Description 12/11/2020 Refill [facility] at [employer] [place] [address] [address] Cheyenne Horton, DESIGN CONSULTANT [address] [address] Social History Tobacco Use Types Packs/Day Years [...] have Coronavirus / COVID-19? No / Unsure 12/11/2020 7:24 AM CDT documented as of this encounter Miscellaneous Notes * Telephone Encounter - Henrietta Andrade RN - 12/11/2020 7:43 AM CDT Pt was given #90 with 4 refills in June 2020 and the refills were not put into [facility]. Refilling #90 with 3 refills to dispense. documented in this encounter Plan of Treatment Upcoming Encounters Date Type Department Care Team (Late st Contact Info) Description 06/20/2024 9:30 AM ACCOUNTS RECEIVABLE SPECIALIST Office Visit [facility] Orthopedic Surgery at the [facility] [address] [place] [address] [place] [address] [place] [address] 10/27/2024 2:45 PM CDT Office Visit [facility] Gastroenterology [facility] [address] [facility] [place] [address] Bebo Benites MD [address] [facility] [address] [place] [address] documented as of this encounter Visit Diagnoses Not on filedocumented in this encounter Additional Health Concerns Assessment Noted Time PHQ-9 Depression Total Score: 3 07/20/19 21 1:00 PM ACCOUNTS RECEIVABLE SPECIALIST documented as of this encounter Care Teams It Support Analyst Relationship Specialty Start Date End Date Francis Pereyra MD PCP - General Family Practice 02/08/18 12/08/21 documented as of this encounter
--- OUTSIDE RECORDS SUMMARY | 2024-06-08 20:21 | XMS_ITS | Encounter Summary ---
Author Organization [facility] Address [address] [place] [address] Care Team Providers Care Grain Inspector Name Role Phone Francis Pereyra MD Primary Care Provider Unava ilable Reason for Visit * Reason Comments Gland Swelling Encounter Details Date Type Department Care Team (Latest Contact Info) Description 10/29/2020 2:00 PM CDT Office Visit [facility] at [facility] [employer] [place] [address] [place] [address] Francis Pereyra MD NO ADDRESS ON FILE Lymphadenitis (Primary Dx); Body mass index (BMI)40.0-44.9, adult Social History Tobacco Use Types Packs/Day Years [...] have Coronavirus / COVID-19? No / Unsure 10/29/2020 1:53 PM CDT documented as of this encounter Last Filed Vital Signs Vital Sign Reading Time Taken Comments Blood Pressure 114/68 10/29/2020 1:54 PM CDT Pulse 83 10/29/2020 1:54 PM CDT Temperature 36.7 ??C (98.1 ??F) 10/29/2020 1:54 PM CD T Respiratory Rate 18 10/29/2020 1:54 PM CDT Oxygen Saturation 98% 10/29/2020 1:54 PM CDT Inhaled Oxygen Concentration - - Weight 110.7 kg (244 lb) 10/29/2020 1:54 PM CDT Height 165.1 cm (5' 5 ) 10/29/2020 1:54 PM CDT Body Mass Index 40.6 10/29/2020 1:54 PM CDT documented in this encounter Progress Notes * Francis Pereyra MD - 10/29/2020 1:56 PM CDT Lis Phelan is a 35 y.o. female Chief Complaint/HPI: Chief Complaint Patient presents with ??? Gland Swelling Tobacco Intervention She is not a tobacco user. Depression Screen Positive: PHQ-2 score >= 3 or PHQ-9 score >= 9 PHQ-2 Total: 3 (07/20/2020 1:00 PM) PHQ-9 Total: 9 (07/20/2020 1:00 PM) DEPRESSION PLAN OF CARE Her antidepressant medication was reviewed medMiName working well Blood Pressure BP Readings from Last 3 Encounters: 10/29/20 114/68 08/03/20 122/80 07/20/20 (!) 154/90 Normal BMI Range: 18 & older: > or = 18.5 and < 25 Body mass index is 40.6 kg/m??. Patient continues to work at weight loss via nutrition and exercise This medical record reflects the history of present illness as obtained by myself in discussion with the patient. SUBJECTIVE: Here for above problems. Right sided gland swelling. opne week ago started. No other symptoms. Denies st, fever, ear ache. Was seen urgent care last week - strep negative and told to use warm comrpess and massage. Still sowllen but better. Is able to move head with much less pain than last week. ROS Review of Systems - History obtained from chart review and the patient General ROS: some weight loss ENT ROS: negative for nasal congestion, drainage or bleeding, sore throat, dysphagia or ear pain Hematological and Lymphatic ROS: positive for - swollen lymph nodes Respiratory ROS: negative for cough, shortness of breath, or wheezing Cardiovascular ROS: negative for chest pain or dyspnea on exertion Allergy and medication list reviewed and updated. OBJECTIVE: She appears well, in no apparent distress. Vital signs documented in vital signs section and are reviewed. Physical Examination: General appearance - alert, well appearing, and in no distress and oriented to person, place, and time Mental status - alert, oriented to person, place, and time, normal mood, behavior, speech, dress, motor activity, and thought processes Mouth - mucous membranes moist, pharynx normal without lesions Neck - right sided fullness anterior cercvical area. Sl pain to palpate. Left neck without ln swelling. No auricualr swelling. No supraclavicular swelling. ASSESSMENT AND PLAN: ICD-10-CM ICD-9-CM 1. Lymphadenitis I88.9 289.3 amoxicillin (AMOXIL) 875 mg tablet 2. Body mass index (BMI)40.0-44.9, adult Z68.41 V85.41 TSH T4 FREE T3 Followup visit if persists. Will check thyroid fully to help evaluate weight loss efforts. Labs from July noted. bp noted today. documented in this encounter Miscellaneous Notes * Result Encounter Note - Francis Pereyra MD - 10/31/2020 12:58 PM CDT Result received in InBasket documented in this encounter Plan of Treatment Upcoming Encounters Date Type Department Care Team (Late st Contact Info) Description 06/20/2024 9:30 AM CHECK EMBOSSER Office Visit [facility] Orthopedic Surgery at the [facility] [address] [facility] [facility] [facility] [address] [place] [address] [place] [address] [place] [address] 10/27/2024 2:45 PM CDT Office Visit [facility] Gastroenterology [facility] [address] [place] [address] Bebo Benites MD [address] [facility] [address] [facility] [address] [place] [address] documented as of this encounter Procedures Procedure Name Priority Date/Time Associated Diagnosis Comments T3 Routine 10/29/2020 2:19 PM CDT Body mass index (BMI)40.0-44.9, adult TSH Routine 10/29/2020 2:19 PM CDT Body mass index (BMI)40.0-44.9, adult T4 FREE Routine 10/29/2020 2:19 PM CDT Body mass index (BMI)40.0-44.9, adult documented in this encounter Results * T3 (10/29/2020 2:19 PM CDT) T3 142 71 - 180 ng/dL [facility] Blood 10/29/2020 2:19 PM CDT 10/30/2020 Narrative [facility] - 10/31/2020 8:36 AM CDT Performed at: ??01 - [address] ??[id number] Flight Operations Coordinator: Elan Crawford PhD, Phone: ??[phone] Francis Pereyra MD CHEMISTRY ORDERABLES Performing Organization Address [facility] Phone Number [facility] [phone] * T4 FREE (10/29/2020 2:19 PM CDT) T4 FREE 1.15 0.82 - 1.77 ng/dL [facility] Blood 10/29/2020 2:19 PM CDT 10/30/2020 Narrative [facility] - 10/31/2020 8:36 AM CDT Performed at: ?? [address] ??[id number] Flight Operations Coordinator: Elan Crawford PhD, Phone: ??[phone] Francis Pereyra MD CHEMISTRY ORDERABLES [facility] [phone] * TSH (10/29/2020 2:19 PM CDT) TSH 2.250 0.450 - 4.500 uIU/mL [facility] Blood 10/29/2020 2:19 PM CDT 10/30/2020 Narrative [facility] - 10/31/2020 8:36 AM CDT Performed at: ??01 - [facility] [address] ??[id number] Flight Operations Coordinator: Elan Crawford PhD, Phone: ??[phone] Francis Pereyra MD CHEMISTRY ORDERABLES Performing Organization Address City/[facility]/ZIP Co de Phone Number [facility]ORWaynautFORMERLY [facility] [phone] documented in this encounter Visit Diagnoses Diagnosis Lymphadenitis- Primary Lymphadenitis, unspecified, except mesenteric Body mass index (BMI)40.0-44.9, adult documented in this encounter Additional Health Concerns Assessment Noted Time PHQ-9 Depression Total Score: 3 07/20/19 21 1:00 PM CHECK EMBOSSER documented as of this encounter Care Teams Grain Inspector Relationship Specialty Start Date End Date Francis Pereyra MD PCP - General Family Practice 02/08/18 12/08/21 documented as of this encounter
--- OUTSIDE RECORDS SUMMARY | 2024-06-08 20:21 | XMS_ITS | Encounter Summary ---
Author Organization [facility] Address [address] [facility] Attn: [place] [address] Care Team Providers Care Applications Intern Name Role Phone Francis Pereyra MD Primary Care Provider Rishi georges Encounter Details Date Type Department Care Team (Latest Contact Info) Description 11/24/2019 Travel Social History Tobacco Use Types Packs/Day [...] have Coronavirus / COVID-19? No / Unsure 11/24/2019 8:40 AM CDT documented as of this encounter Plan of Treatment Upcoming Encounters Date Type Department Care Team (Late st Contact Info) Description 06/20/2024 9:30 AM LINUX KERNEL DEVELOPER Office Visit [facility] Orthopedic Surgery at the [facility] Medicine [address] [facility] [address] [place] [address] [place] [address] [place] [address] 10/27/2024 2:45 PM CDT Office Visit [facility] Gastroenterology [facility] [address] [facility] [address] [place] [address] Bebo Benites MD [address] [address] documented as of this encounter Visit Diagnoses Not on filedocumented in this encounter Additional Health Concerns Assessment Noted Time PHQ-9 Depression Total Score: 6 08/29/19 20 10:00 AM CDT documented as of this encounter Care Teams Applications Intern Relationship Specialty Start Date End Date Francis Pereyra MD PCP - General Family Practice 02/08/18 12/08/21 documented as of this encounter
--- OUTSIDE RECORDS SUMMARY | 2024-06-08 20:21 | XMS_ITS | Encounter Summary ---
Author Organization [facility] Address [address] [place] [address] Care Team Providers Care Data Analysis Assistant Name Role Phone Francis Pereyra MD Primary Care Provider Unava ilable Reason for Visit * Reason Comments Post-op Visit RT CTR Encounter Details Date Type Department Care Team (Late st Contact Info) Description 06/24/2021 4:00 PM SUPERVISORY CLERK Office Visit [facility] Orthopedics [facility] [address] [place] [address] [place] [id number] [place] [address] Right carpal tunnel syndrome (Primary [...] COVID-19? No / Unsure 06/24/2021 3:55 PM SUPERVISORY CLERK documented as of this encounter Last Filed Vital Signs Vital Sign Reading Time Taken Comments Blood Pressure - - Pulse - - Temperature - - Respiratory Rate - - Oxygen Saturation - - Inhaled Oxygen Concentration - - Weight 112.5 kg (248 lb) 06/24/2021 3:58 PM SUPERVISORY CLERK Height 167.6 cm (5' 6 ) 06/24/2021 3:58 PM SUPERVISORY CLERK Body Mass Index 40.03 06/24/2021 3:58 PM SUPERVISORY CLERK documented in this encounter Progress Notes * Paddy Mackey MD - 06/24/2021 4:04 PM CST S: Lis Phelan is a 36 y.o. female who presents for the first post-op visit status post left open carpal tunnel release. She reports no significant issues since we last visited, and has minimal discomfort. She notes that the preoperative symptoms of numbness and tingling are absent. O: Surgical sites and surrounding skin are benign with no evidence of infection. Sensation to lighttouch is preserved in the M/R/U nerve distributions. Wrist and digital motion are in line with expected postoperative course. Thenar musculature is 5/5. Imaging: none obtained A/P: Lis Phelan is a 36 y.o. female who is 2 weeks status post left open CTR. 1. Doing well. All questions were answered, and I encouraged gradual return to normal activity. 2. Follow-up scheduled in my clinic PRN. On the day of the visit, I spent 10 minutes providing care to this patient including Preparing to see the patient, Performing a medically appropriate examination and/or evaluation, Counseling and educating the patient/family/caregiver and Documenting clinical information in the medical record. RVISORY CLERK documented in this encounter Plan of Treatment Upcoming Encounters Date Type Department Care Team (Late st Contact Info) Description 06/20/2024 9:30 AM SUPERVISORY CLERK Office Visit [facility] Orthopedic Surgery at the [facility] [address] [place] [phone] [place] [address] [place] [address] 10/27/2024 2:45 PM CDT Office Visit [facility] G[facility]enterology [facility] [address] [place] [phone] Bebo Benites MD [address] [phone] documented as of this encounter Visit Diagnoses Diagnosis Right carpal tunnel syndrome- Primary Carpal tunnel syndrome documented in this encounter Care Teams Data Analysis Assistant Relationship Specialty Start Date End Date Francis Pereyra MD PCP - General Family Practice 02/08/18 12/08/21 documented as of this encounter
--- OUTSIDE RECORDS SUMMARY | 2024-06-08 20:21 | XMS_ITS | Encounter Summary ---
Author Organization [facility] Address [address] [place] [address] Care Team Providers Care Product Test Specialist Name Role Phone Francis Pereyra MD Primary Care Provider Unava ilable Reason for Visit * Reason Comments Rash Medication Refill Pt states she has no t been taking any medications, needs to have all refilled Encounter Details Date Type Department Care Team (Late st Contact Info) Description 07/20/2020 1:00 PM CHORAL TEACHER Office Visit [facility] [place] [address] [place] [address] Tessa Su, MAINTENANCE OF WAY SUPERVISOR [address] [facility] [place], [facility] [address] [place] [address] Impetigo (Primary Dx); Moderate episode of recurrent major depressive disorder; Generalized anxiety disorder; ETD (Eustachian tube dysfunction), right; Mild intermittent asthma without complication; Type 2 diabetes mellitus without complication, without long-term current use of insulin; Hyperlipidemia, unspecified hyperlipidemia type; HTN (hypertension), benign; Microalbuminuria; Body mass index (BMI)40.0-44.9, adult Social History [...] have Coronavirus / COVID-19? No / Unsure 07/20/2020 1:03 PM CHORAL TEACHER documented as of this encounter Last Filed Vital Signs Vital Sign Reading Time Taken Comments Blood Pressure 154/90 07/20/2020 1:04 PM CHORAL TEACHER Pulse 113 07/20/2020 1:04 PM CHORAL TEACHER Temperature 37.2 ??C (98.9 ??F) 07/20/2020 1:04 PM CS T Respiratory Rate 20 07/20/2020 1:04 PM CHORAL TEACHER Oxygen Saturation 99% 07/20/2020 1:04 PM CHORAL TEACHER Inhaled Oxygen Concentration - - Weight 114.8 kg (253 lb) 07/20/2020 1:04 PM CHORAL TEACHER Height 165.1 cm (5' 5 ) 07/20/2020 1:04 PM CHORAL TEACHER Body Mass Index 42.1 07/20/2020 1:04 PM CHORAL TEACHER documented in this encounter Progress Notes * Tessa Su, MICHAEL - 07/23/2020 12:18 PM CST HISTORY OF PRESENT ILLNESS Lis Phelan is a 35 y.o. female who presents for Chief Complaint Patient presents with ??? Rash ??? Medication Refill Pt states she has not been taking any medications, needs to have all refilled Pt stopped her meds. Willing to restart and willing to start ACEI given her BP is elevated. Had irritation inside the outside of her ears with itching, swelling, redness. Now has additional itchy lesions to her scalp with crusting. Past Medical History: Diagnosis Date ??? Arthritis ??? Asthma ??? Biliary dyskinesia ??? Depression ??? Diabetes mellitus ??? Difficult intravenous access VERY hard IV stick use requests ultrasound ??? Eosinophilic esophagitis ??? GERD (gastroesophageal reflux disease) ??? Headache ??? History of shingles ??? Hyperlipidemia Current Outpatient Medications Medication Sig Dispense Refill ??? metFORMIN (GLUCOPHAGE) 500 mg tablet Take 1 Tablet (500 mg) by mouth 2 times daily. 180 Tablet 4 ??? sertraline (ZOLOFT) 100 mg tablet Take 1 Tablet (100 mg) by mouth daily. 90 Tablet 4 ??? buPROPion HCL (Wellbutrin XL) 150 mg Extended Release 24 hour tablet Take 1 Tablet (150 mg) by mouth daily in the morning. 90 Tablet 4 ??? fluticasone propionate (FLONASE) 50 mcg/spray [place], Suspension nasal inhaler Use 2 sprays eachnostril twice a day for 7-10 days 16 Gram 0 ??? rosuvastatin (CRESTOR) 40 mg tablet Take 1 Tablet (40 mg) by mouth daily at bedtime. 90 Tablet 4 ??? albuterol HFA 90 mcg inhaler Take 1-2 Puffs by inhalation every 4 hours as needed for Shortnessof Breath or Wheezing. 6.7 Gram 3 ??? cephALEXin (KEFLEX) 500 mg capsule Take 1 Capsule (500 mg) by mouth 3 times daily for 10 days. 30 Capsule 0 ??? mupirocin (BACTROBAN) 2 % Ointment Apply to affected area 2 times daily for 7 days. 22 Gram 0 ??? pantoprazole (PROTONIX) 40 mg Tablet, Delayed Release (E.C.) Take 1 Tablet (40 mg) by mouth daily. 90 Tablet 4 ??? lisinopriL (PRINIVIL) 10 mg tablet Take 1 Tablet (10 mg) by mouth daily. 90 Tablet 4 ??? meclizine (ANTIVERT) 25 mg tablet Take 1 Tablet (25 mg) by mouth 3 times daily as needed for Dizziness. 30 Tablet 0 ??? cetirizine (ZyrTEC) 10 mg tablet Take 10 mg by mouth daily. ??? ALPRAZolam (XANAX) 0.25 mg tablet Take 1 Tablet (0.25 mg) by mouth 2 times daily as needed for Anxiety. 15 Tablet 0 ??? etonogestrel (IMPLANON SDRM) by Subdermal route. No current facility-administered medications for this visit. Allergies Allergen Reactions ??? Chantix [Varenicline] Anaphylaxis ??? Metronidazole Nausea and Vomiting Other reaction(s): Vomiting ??? Demerol [Meperidine] Swelling ??? Tramadol Hives BP (!) 154/90 (BP Location: Left arm, Patient Position (BP): Sitting, BP Cuff Size: Large Adult) Pulse (!) 113 Temp 98.9 ??F (37.2 ??C) (Tympanic) Resp 20 Ht 5' 5 (1.651 m) Wt 114.8 kg (253 lb) SpO2 99% BMI 42.10 kg/m?? MEDICAL RECORD UPDATE Past Medical History: Diagnosis Date ??? Arthritis ??? Asthma ??? Biliary dyskinesia ??? Depression ??? Diabetes mellitus ??? Difficult intravenous access VERY hard IV stick use requests ultrasound ??? Eosinophilic esophagitis ??? GERD (gastroesophageal reflux disease) ??? Headache ??? History of shingles ??? Hyperlipidemia Past Surgical History: Procedure Laterality Date ??? HX GASTROSCHISIS CLOSURE ??? HX SURGICAL OTHER 04/2004 adhesion removed ??? [place] ESOPHAGOGASTRODUODENOSCOPY TRANSORAL DIAGNOSTIC N/A 05/17/2019 ESOPHAGOGASTRODUODENOSCOPY performed by Jena Cerda MD at [facility] ??? [place] REMOVAL GALLBLADDER N/A 11/03/2019 OPEN CHOLECYSTECTOMY performed by Gabbie Wheeler MD at [facility] OR MAIN Family History Problem Relation Name Age of Onset ??? Lung Cancer Father ??? Stroke Father ??? Hypertension Mother ??? High Cholesterol Mother ??? Unknown Brother ??? Unknown Maternal Grandmother ??? Unknown Maternal Grandfather ??? Diabetes Paternal Grandmother ??? Kidney Disease Paternal Grandfather ??? No Known Problems Daughter ??? No Known Problems Son ??? Colon Cancer Neg Hx Current medications and allergies were reviewed and updated in computerized patient record. [address] Care Providers: Patient Care Team: Francis Pereyra MD as PCP - General (Family Practice) No Patient Care Coordination Note on file. Vital signs/Tobacco use BP (!) 154/90 (BP Location: Left arm, Patient Position (BP): Sitting, BP Cuff Size: Large Adult) Pulse (!) 113 Temp 98.9 ??F (37.2 ??C) (Tympanic) Resp 20 Ht 5' 5 (1.651 m) Wt 114.8 kg (253 lb) SpO2 99% BMI 42.10 kg/m?? Blood Pressure BP Readings from Last 3 Encounters: 07/20/20 (!) 154/90 01/06/20 (!) 138/100 01/03/20 (!) 140/88 BMI POC (QM) Body mass index is 42.1 kg/m??. Normal BMI range: 18 & older: > or = 18.5 and < 25 Abnormal high BMI: Patient counseled on lifestyle modifications including weight loss and daily exercise. The 10-year CVD risk score (Amishino, et al., 2008) is: 10.3% Values used to calculate the score: Age: 35 years Sex: Female Diabetic: Yes Tobacco smoker: No Systolic Blood Pressure: 154 mmHg Is BP treated: Yes HDL Cholesterol: 36 mg/dL Total Cholesterol: 193 mg/dL Consider Statins if 10 year risk >7.5-10% Tobacco Use (QM) reports that she quit smoking about 4 years ago. She has a 10.00 pack-year smoking history. She hasnever used smokeless tobacco. She is not a tobacco user. DEPRESSION SCREENING (QM) PHQ2: Positive: PHQ-2 score > 2 or PHQ-9 score > 9 PHQ-2 Total: 3 (07/20/20 1300) PHQ-9 Total: 9 (07/20/20 1300) Her depression screen was moderate depression. Has been off Wellbutrin. EXAMINATION REVIEW OF SYSTEMS Review of Systems Constitutional: Negative for chills and fever. Respiratory: Negative for cough. Cardiovascular: Negative for chest pain. Musculoskeletal: Negative for myalgias. Skin: Positive for itching and rash. Neurological: Negative for dizziness and headaches. Psychiatric/Behavioral: Negative for depression. The patient is not nervous/anxious. Objective PHYSICAL EXAM Physical Exam Constitutional: Appearance: She is well-developed. HENT: Head: Normocephalic and atraumatic. Right Ear: Tympanic membrane normal. Swelling and tenderness present. Left Ear: Tympanic membrane normal. Swelling and tenderness present. Ears: Comments: Antrum of both ears have swelling 1+ with erythema, light crusting. Nose: Nose normal. Eyes: Conjunctiva/sclera: Conjunctivae normal. Cardiovascular: Rate and Rhythm: Normal rate and regular rhythm. Heart sounds: Normal heart sounds, S1 normal and S2 normal. No murmur. No friction rub. No gallop. Pulmonary: Effort: Pulmonary effort is normal. No respiratory distress. Breath sounds: Normal breath sounds. No wheezing or rales. Skin: General: Skin is warm and dry. Findings: Rash present. Comments: Scattered inflamed round, crusted small plaques to scalp. Neurological: Mental Status: She is alert and oriented to person, place, and time. No results found for any visits on 07/20/20 (from the past 24 hour(s)). ASSESSMENT and PLAN: Lis was seen today for rash and medication refill. Diagnoses and all orders for this visit: Impetigo Moderate episode of recurrent major depressive disorder - buPROPion HCL (Wellbutrin XL) 150 mg Extended Release 24 hour tablet; Take 1 Tablet (150 mg) by mouth daily in the morning. Generalized anxiety disorder - buPROPion HCL (Wellbutrin XL) 150 mg Extended Release 24 hour tablet; Take 1 Tablet (150 mg) by mouth daily in the morning. ETD (Eustachian tube dysfunction), right - fluticasone propionate (FLONASE) 50 mcg/spray [place], Suspension nasal inhaler; Use 2 sprays each nostril twice a day for 7-10 days Mild intermittent asthma without complication - albuterol HFA 90 mcg inhaler; Take 1-2 Puffs by inhalation every 4 hours as needed for Shortness of Breath or Wheezing. Other orders - metFORMIN (GLUCOPHAGE) 500 mg tablet; Take 1 Tablet (500 mg) by mouth 2 times daily. - sertraline (ZOLOFT) 100 mg tablet; Take 1 Tablet (100 mg) by mouth daily. - Discontinue: pantoprazole (PROTONIX) 40 mg Tablet, Delayed Release (E.C.); Take 1 Tablet (40 mg) by mouth daily. - rosuvastatin (CRESTOR) 40 mg tablet; Take 1 Tablet (40 mg) by mouth daily at bedtime. - cephALEXin (KEFLEX) 500 mg capsule; Take 1 Capsule (500 mg) by mouth 3 times daily for 10 days. - mupirocin (BACTROBAN) 2 % Ointment; Apply to affected area 2 times daily for 7 days. - pantoprazole (PROTONIX) 40 mg Tablet, Delayed Release (E.C.); Take 1 Tablet (40 mg) by mouth daily. - lisinopriL (PRINIVIL) 10 mg tablet; Take 1 Tablet (10 mg) by mouth daily. HTN-added lisinopril, renal protection. Labs and BP check in 2 weeks. Refilled meds, restart. Impetigo-Bactroban, Keflex. Foot exam next OV. AL TEACHER documented in this encounter Miscellaneous Notes * Patient Instructions - Sharlene Tessabeto Goodman, MICHAEL - 07/20/2020 1:52 PM CHORAL TEACHER Images from the original note were not included. Impetigo: Care Instructions Your Care Instructions Impetigo (say [id number]-nwe-OM-go ) is a skin infection caused by bacteria. It causes blisters that breakand become oozing, yellow, crusty sores. Impetigo can be anywhere on the body. Scratching the sores may spread the infection to other parts of the body. You can also spread it to others through close contact or when you share towels, clothing, and other items. Prescription antibiotic ointment or pills can usually cure impetigo. (After a day of antibiotics, the infection should not spread.) Follow-up care is a barreto part of your treatment and safety. Be sure to make and go to all appointments, and call your doctor if you are having problems. It's also a good idea to know your test resultsand keep a list of the medicines you take. How can you care for yourself at home? ?? Apply antibiotic ointment exactly as instructed. ?? If your doctor prescribed antibiotic pills, take them as directed. Do not stop using them just because you feel better. You need to take the full course of antibiotics. ?? Gently wash the sores with soap and water each day. If crusts form, your doctor may advise you to soften or remove the crusts. You can do this by soaking them in warm water and patting them dry. This can help the cream or ointment treat impetigo. ?? After you touch the area, wash your hands with soap and water. Or you can use an alcohol-based hand mammalogy teacher. ?? Don't share items such as towels, sheets, and clothing until the infection is gone. ?? Wash anything that may have touched the infected area. ?? Try to avoid scratching the area. When should you call for help? Call your doctor now or seek immediate medical care if: ?? You have symptoms of a worse infection, such as: ? Increased pain, swelling, warmth, or redness. ? Red streaks leading from the area. ? Pus draining from the area. ? A fever. ?? Impetigo gets worse or spreads to other areas. Watch closely for changes in your health, and be sure to contact your doctor if: ?? You do not get better as expected. Where can you learn more? Go to https://www.[employer].net/patiented Enter S909 in the search box to learn more about Impetigo: Care Instructions. Current as of: February 10, 2019?Content Version: 12.5 ?? [employer]. Care instructions adapted under license by your healthcare professional. If you have questions about a medical condition or this instruction, always ask your healthcare professional. These instructions may not represent the values of this healthcare organization. [employer] disclaims any warranty or liability for your use of this information. High Blood Pressure: Care Instructions Overview It's normal for blood pressure to go up and down throughout the day. But if it stays up, you have high blood pressure. Another name for high blood pressure is hypertension. Despite what a lot of people think, high blood pressure usually doesn't cause headaches or make youfeel dizzy or lightheaded. It usually has no symptoms. But it does increase your risk of stroke, heart attack, and other problems. You and your doctor will talk about your risks of these problems based on your blood pressure. Your doctor will give you a goal for your blood pressure. Your goal will be based on your health and your age. Lifestyle changes, such as eating healthy and being active, are always important to help lower blood pressure. You might also take medicine to reach your blood pressure goal. Follow-up care is a barreto part of your treatment and safety. Be sure to make and go to all appointments, and call your doctor if you are having problems. It's also a good idea to know your test resultsand keep a list of the medicines you take. How can you care for yourself at home? Medical treatment ?? If you stop taking your medicine, your blood pressure will go back up. You may take one or more types of medicine to lower your blood pressure. Be safe with medicines. Take your medicine exactly as prescribed. Call your doctor if you think you are having a problem with your medicine. ?? Talk to your doctor before you start taking aspirin every day. Aspirin can help certain people lower their risk of a heart attack or stroke. But taking aspirin isn't right for everyone, because itcan cause serious bleeding. ?? See your doctor regularly. You may need to see the doctor more often at first or until your blood pressure comes down. ?? If you are taking blood pressure medicine, talk to your doctor before you take decongestants or anti-inflammatory medicine, such as ibuprofen. Some of these medicines can raise blood pressure. ?? Learn how to check your blood pressure at home. Lifestyle changes ?? Stay at a healthy weight. This is especially important if you put on weight around the waist. Losing even 10 pounds can help you lower your blood pressure. ?? If your doctor recommends it, get more exercise. Walking is a good choice. Bit by bit, increase the amount you walk every day. Try for at least 30 minutes on most days of the week. You also may want to swim, bike, or do other activities. ?? Avoid or limit alcohol. Talk to your doctor about whether you can drink any alcohol. ?? Try to limit how much sodium you eat to less than 2,300 milligrams (mg) a day. Your doctor may ask you to try to eat less than 1,500 mg a day. ?? Eat plenty of fruits (such as bananas and oranges), vegetables, legumes, whole grains, and low-fat dairy products. ?? Lower the amount of saturated fat in your diet. Saturated fat is found in animal products such as milk, cheese, and meat. Limiting these foods may help you lose weight and also lower your risk forheart disease. ?? Do not smoke. Smoking increases your risk for heart attack and stroke. If you need help quitting, talk to your doctor about stop-smoking programs and medicines. These can increase your chances of quitting for good. When should you call for help? Call 911 anytime you think you may need emergency care. This may mean having symptoms that suggest that your blood pressure is causing a serious heart or blood vessel problem. Your blood pressure maybe over 180/120. For example, call 911 if: ?? You have symptoms of a heart attack. These may include: ? Chest pain or pressure, or a strange feeling in the chest. ? Sweating. ? Shortness of breath. ? Nausea or vomiting. ? Pain, pressure, or a strange feeling in the back, neck, jaw, or upper belly or in one or both shoulders or arms. ? Lightheadedness or sudden weakness. ? A fast or irregular heartbeat. ?? You have symptoms of a stroke. These may include: ? Sudden numbness, tingling, weakness, or loss of movement in your face, arm, or leg, especially ononly one side of your body. ? Sudden vision changes. ? Sudden trouble speaking. ? Sudden confusion or trouble understanding simple statements. ? Sudden problems with walking or balance. ? A sudden, severe headache that is different from past headaches. ?? You have severe back or belly pain. Do not wait until your blood pressure comes down on its own. Get help right away. Call your doctor now or seek immediate care if: ?? Your blood pressure is much higher than normal (such as 180/120 or higher), but you don't have symptoms. ?? You think high blood pressure is causing symptoms, such as: ? Severe headache. ? Blurry vision. Watch closely for changes in your health, and be sure to contact your doctor if: ?? Your blood pressure measures higher than your doctor recommends at least 2 times. That means thetop number is higher or the bottom number is higher, or both. ?? You think you may be having side effects from your blood pressure medicine. Where can you learn more? Go to https://www.[employer].net/patiented Enter X567 in the search box to learn more about High Blood Pressure: Care Instructions. Current as of: June 06, 2019?Content Version: 12.5 ?? [employer]. Care instructions adapted under license by your healthcare professional. If you have questions about a medical condition or this instruction, always ask your healthcare professional. These instructions may not represent the values of this healthcare organization. [employer] disclaims any warranty or liability for your use of this information. AL TEACHER documented in this encounter Plan of Treatment Upcoming Encounters Date Type Department Care Team (Late st Contact Info) Description 06/20/2024 9:30 AM CHORAL TEACHER Office Visit [facility] Orthopedic Surgery at the [facility] [address] [facility] [place] [address] [place] [address] [place] [address] 10/27/2024 2:45 PM CDT Office Visit [facility] Gastroenterology [address] [place] [address] Bebo Benites MD [address] [place] [address] documented as of this encounter Results * MICROALBUMIN/CREATININE RATIO, RANDOM UR (08/03/2020 8:24 AM CHORAL TEACHER) Creatinine, Urine 177.0 Not Estab. mg/dL [facility] MICROALBUMIN URINE 41.8 Not Estab. ug/mL [facility] MICROALBUMIN/CREA T RATIO, UR 24 0 - 29 mg/g creat [facility] Comment: ? Normal: ?0 - ??29 ? Moderately increased: 30 - 300 ? Severely increased: ? >300 Urine URINE SPECIMEN OBTAINED BY CLEAN CATCH PROCEDURE / Unknown 08/03/2020 8:24 AM CHORAL TEACHER 08/03/2020 Narrative [facility] - 08/04/2020 9:36 AM CHORAL TEACHER Performed at: ??01 - [facility] [address], [place], [place] ??[id number] Dipper And Baker: Elan Crawford PhD, Phone: ??[phone] Tessa Su MAINTENANCE OF WAY SUPERVISOR URINE ORDERABLE S [facility] [phone] * (ABNORMAL) HEMOGLOBIN A1C (08/03/2020 8:24 AM CHORAL TEACHER) Pathologist [facility] HEMOGLOBIN A1C 6.2(H) 4.8 - 5.6 % [facility] Comment: ? Prediabetes: 5.7 - 6.4 ? Diabetes: >6.4 ? Glycemic control for adults with diabetes: <7.0 Blood 08/03/2020 8:24 AM CHORAL TEACHER 08/03/2020 Narrative [facility] - 08/04/2020 4:35 AM CHORAL TEACHER Performed at: ??01 - [facility] ??[id number] Dipper [employer] Baker: Elan Crawford PhD, Phone: ??[phone] Tessa uS MAINTENANCE OF WAY SUPERVISOR CHEMISTRY ORDER MIGUELITO Performing Organization Address City/[facility]/ZIP Co de Phone Number [facility] [phone] * TSH (08/03/2020 8:24 AM CHORAL TEACHER) [facility] TSH 1.300 0.450 - 4.500 uIU/[facility] Blood 08/03/2020 8:24 AM CHORAL TEACHER 08/03/2020 Narrative [facility] - 08/04/2020 6:36 AM CHORAL TEACHER Performed at: ??01 - [facility] ??[id number] Dipper [employer] Baker: Elan Crawford PhD, Phone: ??[phone] Tessa Su MAINTENANCE OF WAY SUPERVISOR CHEMISTRY ORDER MIGUELITO [facility] [phone] * LIPID PANEL (08/03/2020 8:24 AM CHORAL TEACHER) CHOLESTEROL 155 100 - 199 mg/dL [facility] TRIGLYCERIDE 100 0 - 149 mg/dL [facility] HDL 48 >39 mg/dL [facility] VLDL CHOLESTEROL CALCULATED 18 5 - 40 mg/dL [facility] LDL CALCULATED 89 0 - 99 mg/dL [facility] Blood 08/03/2020 8:24 AM CHORAL TEACHER 08/03/2020 Narrative [facility] - 08/04/2020 5:35 AM CHORAL TEACHER Performed at: ??01 - [facility] [address] ??[id number] Dipper And Baker: Elan Crawford PhD, Phone: ??[phone] Tessa Su NP CHEMISTRY ORDER MIGUELITO [facility] [phone] * (ABNORMAL) COMPREHENSIVE METABOLIC PANEL (08/03/2020 8:24 AM CHORAL TEACHER) Pathologist [facility] GLUCOSE 94 65 - 99 mg/dL [facility] BUN 12 6 - 20 mg/dL [facility] CREATININE 0.66 0.57 - 1.00 mg/dL [facility] GFR 116 >59 mL/min/1.7 3 [facility] GFR, 133 >59 mL/min/1.7 3 [facility] BUN/CREAT RATIO 18 9 - 23 [facility] SODIUM 139 134 - 144 mmol/L [facility] POTASSIUM 4.4 3.5 - 5.2 mmol/L [facility] CHLORIDE 102 96 - 106 mmol/L [facility] CO2 19(L) 20 - 29 mmol/L [facility] CALCIUM 9.3 8.7 - 10.2 mg/dL [facility] TOTAL PROTEIN 7.4 6.0 - 8.5 g/dL [facility] ALBUMIN 4.4 3.8 - 4.8 g/dL [facility] GLOBULIN 3.0 1.5 - 4.5 g/dL [facility] ALBUMIN/GLOBULIN RATIO 1.5 1.2 - 2.2 [facility] BILIRUBIN TOTAL 0.3 0.0 - 1.2 mg/dL [facility] ALKALINE PHOSPHATASE 75 39 - 117 IU/L [facility] AST 29 0 - 40 IU/L [facility] ALT 50(H) 0 - 32 IU/L [facility] Blood 08/03/2020 8:24 AM CHORAL TEACHER 08/03/2020 Narrative [facility] - 08/04/2020 5:35 AM CHORAL TEACHER Performed at: ??01 - [facility] [address] ??[id number] Dipper [employer] Baker: Elan Crawford PhD, Phone: ??[phone] Tessa Su NP CHEMISTRY ORDER MIGUELITO [facility] [phone] * CBC WITH DIFFERENTIAL (08/03/2020 8:24 AM CHORAL TEACHER) WBC 7.2 3.4 - 10.8 x10E3/uL [facility] RBC 4.34 3.77 - 5.28 x10E6/uL [facility] HEMOGLOBIN 13.5 11.1 - 15.9 g/dL [facility] HEMATOCRIT 39.2 34.0 - 46.6 % [facility] MCV 90 79 - 97 fL [facility] MCH 31.1 26.6 - 33.0 pg [facility] MCHC 34.4 31.5 - 35.7 g/dL [facility] RDW 13.5 11.7 - 15.4 % [facility] PLATELETS 288 150 - 450 x10E3/uL [facility] NEUTROPHIL 57 Not Estab. % [facility] LYMPHOCYTES 28 Not Estab. % [facility] MONOCYTE 8 Not Estab. % [facility] EOSINOPHILS 6 Not Estab. % [facility] BASOPHILS 1 Not Estab. % [facility] NEUTROPHIL ABSOLUTE 4.1 1.4 - 7.0 x10E3/uL [facility] LYMPHOCYTE ABSOLUTE 2.0 0.7 - 3.1 x10E3/uL [facility] MONOCYTE ABSOLUTE 0.6 0.1 - 0.9 x10E3/uL [facility] EOSINOPHIL ABSOLUTE 0.4 0.0 - 0.4 x10E3/uL [facility] BASOPHILS ABSOLUTE 0.0 0.0 - 0.2 x10E3/uL [facility] IMMATURE GRANULOCYTES 0 Not Estab. % [facility] IMMATURE GRANULOCYTES ABSOLUTE 0.0 0.0 - 0.1 x10E3/uL [facility] Blood 08/03/2020 8:24 AM CHORAL TEACHER 08/03/2020 Narrative [facility] - 08/04/2020 4:35 AM CHORAL TEACHER Performed at: ?? - [facility] [address] ??[id number] Dipper And Baker: Elan Crawford PhD, Phone: ??[phone] Tessa Su NP HEMATOLOGY DEVIKA MARTINEZ [facility] [phone] documented in this encounter Visit Diagnoses Diagnosis Impetigo- Primary Moderate episode of recurrent major depressive disorder Generalized anxiety disorder ETD (Eustachian tube dysfunction), right Mild intermittent asthma without complication Unspecified asthma Type 2 diabetes mellitus without complication, without long-term current use of insulin Hyperlipidemia, unspecified hyperlipidemia type HTN (hypertension), benign Essential hypertension, benign Microalbuminuria Proteinuria Body mass index (BMI)40.0-44.9, adult Microalbuminuria Proteinuria Type 2 diabetes mellitus without complication, without long-term current use of insulin Moderate episode of recurrent major depressive disorder Hyperlipidemia, unspecified hyperlipidemia type documented in this encounter Additional Health Concerns Assessment Noted Time PHQ-9 Depression Total Score: 3 07/20/19 21 1: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
--- OUTSIDE RECORDS SUMMARY | 2024-06-08 20:21 | XMS_ITS | Encounter Summary ---
Author Organization [facility] Address [address] [place] [address] Care Team Providers Care Poultry Inspector Name Role Phone Francis Pereyra MD Primary Care Provider Unava ilable Reason for Visit * Reason Comments Follow Up Encounter Details Date Type Department Care Team (Late st Contact Info) Description 08/03/2020 8:00 AM ALTERATIONS SEWER Office Visit [facility] [place] [address] [place] [address] Tessa Su, MICHAEL [address] [facility] [address] [place] [address] Microalbuminuria; Type 2 diabetes mellitus without complication, without long-term current use of insulin; Moderate episode of recurrent major depressive disorder; Hyperlipidemia, unspecified hyperlipidemia type Social History Tobacco [...] have Coronavirus / COVID-19? No / Unsure 08/03/2020 7:56 AM ALTERATIONS SEWER documented as of this encounter Last Filed Vital Signs Vital Sign Reading Time Taken Comments Blood Pressure 122/80 08/03/2020 7:56 AM ALTERATIONS SEWER Pulse 97 08/03/2020 7:56 AM ALTERATIONS SEWER Temperature 36.8 ??C (98.2 ??F) 08/03/2020 7:56 AM CS T Respiratory Rate 18 08/03/2020 7:56 AM ALTERATIONS SEWER Oxygen Saturation 98% 08/03/2020 7:56 AM ALTERATIONS SEWER Inhaled Oxygen Concentration - - Weight 111.6 kg (246 lb) 08/03/2020 7:56 AM ALTERATIONS SEWER Height 165.1 cm (5' 5 ) 08/03/2020 7:56 AM ALTERATIONS SEWER Body Mass Index 40.94 08/03/2020 7:56 AM ALTERATIONS SEWER documented in this encounter Progress Notes * Tessa Su, MICHAEL - 08/03/2020 8:24 AM CST Images from the original note were not included. HISTORY OF PRESENT ILLNESS Lis Phelan is a 35 y.o. female who presents for Chief Complaint Patient presents with ??? Follow Up lost 6 lbs since last OV, watching diet, cut out concentrated sweets. Rash to head resolved. Takingmedications as directed and tolerating Lisinopril. Feeling better overall. Here for fasting labs. Has a cold with nasal congestion, mild symptoms. Denies fevers. Got it from her son. Past Medical History: Diagnosis Date ??? Arthritis [...] 4 ??? fluticasone propionate (FLONASE) 50 mcg/spray [place], Suspension nasal inhaler Use 2 sprays eachnostril twice a day for 7-10 days 16 Gram 0 ??? rosuvastatin (CRESTOR) 40 mg tablet Take 1 Tablet (40 mg) by mouth daily at bedtime. 90 Tablet 4 ??? albuterol HFA 90 mcg inhaler Take 1-2 Puffs by inhalation every 4 hours as needed for Shortnessof Breath or Wheezing. 6.7 Gram 3 ??? pantoprazole (PROTONIX) 40 mg Tablet, Delayed [...] Demerol [Meperidine] Swelling ??? Tramadol Hives BP 122/80 (BP Location: Left arm, Patient Position (BP): Sitting, BP Cuff Size: Large Adult) Pulse 97 Temp 98.2 ??F (36.8 ??C) (Tympanic) Resp 18 Ht 5' 5 (1.651 m) Wt 111.6 kg (246 lb) SpO2 98% BMI 40.94 kg/m?? MEDICAL RECORD UPDATE Past Medical History: [...] HX SURGICAL OTHER 04/2004 adhesion removed ??? [place] ESOPHAGOGASTRODUODENOSCOPY TRANSORAL DIAGNOSTIC N/A 05/17/2019 ESOPHAGOGASTRODUODENOSCOPY performed by Jena Cerda MD at [facility] GI [facility] ??? [place] REMOVAL GALLBLADDER N/A 11/03/2019 OPEN CHOLECYSTECTOMY performed by Gabbie Wheeler MD at [facility] OR MAIN Family History Problem Relation [...] reviewed and updated in computerized patient record. [address] Care Providers: Patient Care Team: Francis Pereyra MD as PCP - General (Family Practice) No Patient Care Coordination Note on file. Vital signs/Tobacco use BP 122/80 (BP Location: Left arm, Patient Position (BP): Sitting, BP Cuff Size: Large Adult) Pulse 97 Temp 98.2 ??F (36.8 ??C) (Tympanic) Resp 18 Ht 5' 5 (1.651 m) Wt 111.6 kg (246 lb) SpO2 98% BMI 40.94 kg/m?? Blood Pressure BP Readings from Last 3 Encounters: 08/03/20 122/80 07/20/20 (!) 154/90 01/06/20 (!) 138/100 BMI POC (QM) Body mass index is 40.94 kg/m??. Normal BMI range: 18 & older: > or = 18.5 and < 25 Abnormal high BMI: Patient counseled on lifestyle modifications including weight loss and daily exercise. The 10-year CVD risk score (D'Agostino, et al., 2008) is: 5.5% Values used to calculate the score: Age: 35 years Sex: Female Diabetic: Yes Tobacco smoker: No Systolic Blood Pressure: 122 mmHg Is BP treated: Yes HDL Cholesterol: 36 mg/dL Total Cholesterol: 193 mg/dL Consider Statins if 10 year risk >7.5-10% Tobacco Use (QM) reports that she quit smoking about 4 years ago. She has a 10.00 pack-year smoking history. She hasnever used smokeless tobacco. She is not a tobacco user. EXAMINATION REVIEW OF SYSTEMS Review of Systems Constitutional: Negative for chills, fever and malaise/fatigue. Respiratory: Negative for cough and shortness of breath. Cardiovascular: Negative for chest pain and palpitations. Gastrointestinal: Positive for constipation and diarrhea. Negative for abdominal pain, blood in stool, melena, nausea and vomiting. Since pipe intermittent sporadic diarrhea, constipation Genitourinary: Negative for dysuria, frequency and urgency. Neurological: Negative for dizziness and headaches. Psychiatric/Behavioral: Negative for depression. The patient is not nervous/anxious. Objective PHYSICAL EXAM Physical Exam Constitutional: Appearance: She is well-developed. HENT: Head: Normocephalic and atraumatic. Right Ear: Tympanic membrane and ear canal normal. Left Ear: Tympanic membrane and ear canal normal. Nose: Nose normal. Mouth/Throat: Lips: [place]. Mouth: Mucous membranes are moist. Pharynx: Oropharynx is clear. Tonsils: No tonsillar exudate. 0 on the right. 0 on the left. Eyes: Conjunctiva/sclera: Conjunctivae normal. Cardiovascular: Rate and Rhythm: Normal rate and regular rhythm. Heart sounds: Normal heart sounds, S1 normal and S2 normal. No murmur. No friction rub. No gallop. Pulmonary: Effort: Pulmonary effort is normal. No respiratory distress. Breath sounds: Normal breath sounds. No wheezing or rales. Abdominal: General: Abdomen is protuberant. Bowel sounds are normal. Palpations: Abdomen is soft. Tenderness: There is no abdominal tenderness. There is no guarding or rebound. Negative signs include Elal's sign and McBurney's sign. Hernia: No hernia is present. Comments: Abd scar Lymphadenopathy: Cervical: No cervical adenopathy. Skin: General: Skin is warm and dry. Findings: No rash. Neurological: Mental Status: She is alert and oriented to person, place, and time. No results found for any visits on 08/03/20 (from the past 24 hour(s)). Diabetic foot exam: Visual: no ulceration, no callous formation and nails normal Sensory:normal monofilament testing and normal vibratory testing Pulses: normal bilaterally ASSESSMENT and PLAN: Lis was seen today for follow up. Diagnoses and all orders for this visit: Microalbuminuria - MICROALBUMIN/CREATININE RATIO, RANDOM UR Type 2 diabetes mellitus without complication, without long-term current use of insulin - HEMOGLOBIN A1C Moderate episode of recurrent major depressive disorder - TSH - COMPREHENSIVE METABOLIC PANEL - CBC WITH DIFFERENTIAL Hyperlipidemia, unspecified hyperlipidemia type - LIPID PANEL Type 2 DM-continue current POC-ACEI, statin, Metformin. Check hgA1c today. Foot exam done. Enc eye exam-schedule. Urine Microalbumin today. Cont wt loss and diet efforts. Is doing well, making lifestyle changes with . Follow up after labs. Impetigo resolved. RATIONS SEWER documented in this encounter Plan of Treatment Upcoming Encounters Date Type Department Care Team (Late st Contact Info) Description 06/20/2024 9:30 AM ALTERATIONS SEWER Office Visit [facility] Orthopedic Surgery at the [facility] [address] [address] [place] [address] [place] [address] [place] [address] 10/27/2024 2:45 PM CDT Office Visit [facility] Gastroenterology [address] [facility] [address] [place] [phone] Bebo Benites MD [address] [facility] [address] [place] [address] documented as of this encounter Procedures Procedure Name Priority Date/Time Associated Diagnosis Comments MICROALBUMIN/CREATINI NE RATIO, RANDOM UR Routine 08/03/2020 8:24 AM ALTERATIONS SEWER Microalbuminuria CBC WITH DIFFERENTIAL Routine 08/03/2020 8:24 AM ALTERATIONS SEWER Moderate episode of recurrent major depressive disorder TSH Routine 08/03/2020 8:24 AM ALTERATIONS SEWER Moderate episode of recurrent major depressive disorder HEMOGLOBIN A1C Routine 08/03/2020 8:24 AM ALTERATIONS SEWER Type 2 diabetes mellitus without complication, without long-term current use of insulin LIPID PANEL Routine 08/03/2020 8:24 AM ALTERATIONS SEWER Hyperlipidemia, unspecified hyperlipidemia type COMPREHENSIVE METABOLIC PANEL Routine 08/03/2020 8:24 AM ALTERATIONS SEWER Moderate episode of recurrent major depressive disorder documented in this encounter Results * CBC WITH DIFFERENTIAL (08/03/2020 8:24 AM ALTERATIONS SEWER) Pathologist [facility] WBC 7.2 3.4 - 10.8 x10E3/uL [facility] [...] x10E3/uL [facility] Blood 08/03/2020 8:24 AM ALTERATIONS SEWER 08/03/2020 Narrative [facility] - 08/04/2020 4:35 AM ALTERATIONS SEWER Performed at: ??[address] ??[id number] Supervisor Electronic Testing: Elan Crawford PhD, Phone: ??[phone] Tessa Su MANAGER [employer] HEMATOLOGY SILVA[place]ano LINDAMAMI [facility] [phone] * (ABNORMAL) COMPREHENSIVE METABOLIC PANEL (08/03/2020 8:24 AM ALTERATIONS SEWER) GLUCOSE 94 65 - 99 mg/dL [facility] [...] IU/L [facility] Blood 08/03/2020 8:24 AM ALTERATIONS SEWER 08/03/2020 Narrative [facility] - 08/04/2020 5:35 AM ALTERATIONS SEWER Performed at: ??01 - [facility] [address] ??[id number] Supervisor Electronic Testing: Elan Crawford PhD, Phone: ??[phone] Tessa Su MANAGER [employer] CHEMISTRY ORDER MIGUELITO [facility] [address] [phone] * LIPID PANEL (08/03/2020 8:24 AM ALTERATIONS SEWER) Pathologist [facility] CHOLESTEROL 155 100 - 199 mg/dL [facility] TRIGLYCERIDE 100 0 - 149 mg/dL [facility] HDL 48 >39 mg/dL [facility] VLDL CHOLESTEROL CALCULATED 18 5 - 40 mg/dL [facility] LDL CALCULATED 89 0 - 99 mg/dL [facility] Blood 08/03/2020 8:24 AM ALTERATIONS SEWER 08/03/2020 Narrative [facility] - 08/04/2020 5:35 AM ALTERATIONS SEWER Performed at: ??[address] - [address] ??[id number] Supervisor Electronic Testing: Elan Crawford PhD, Phone: ??[phone] Tessa Su MANAGER [employer] CHEMISTRY ORDER MIGUELITO Performing Organization Address City/[facility]/ZIP Co de Phone Number [facility] [phone] * TSH (08/03/2020 8:24 AM ALTERATIONS SEWER) [facility] TSH 1.300 0.450 - 4.500 uIU/mL [facility] Blood 08/03/2020 8:24 AM ALTERATIONS SEWER 08/03/2020 Narrative [facility] - 08/04/2020 6:36 AM ALTERATIONS SEWER Performed at: ??01 - [facility] ??[id number] Supervisor Electronic Testing: Elan Crawford PhD, Phone: ??[phone] Tessa Su MANAGER [employer] CHEMISTRY ORDER MIGUELITO [facility] [address] [phone] * (ABNORMAL) HEMOGLOBIN A1C (08/03/2020 8:24 AM ALTERATIONS SEWER) [facility] HEMOGLOBIN A1C 6.2(H) 4.8 - 5.6 % [facility] Comment: ? Prediabetes: 5.7 - 6.4 ? Diabetes: >6.4 ? Glycemic control for adults with diabetes: <7.0 Blood 08/03/2020 8:24 AM ALTERATIONS SEWER 08/03/2020 Narrative [facility] - 08/04/2020 4:35 AM ALTERATIONS SEWER Performed at: ??01 - [facility] ??[id number] Supervisor Electronic Testing: Elan Crawford PhD, Phone: ??[phone] Tessa Su NP CHEMISTRY ORDER MIGUELITO [facility] [phone] * MICROALBUMIN/CREATININE RATIO, RANDOM UR (08/03/2020 8:24 AM ALTERATIONS SEWER) Pathologist [facility] Creatinine, Urine 177.0 Not Estab. mg/dL [facility] MICROALBUMIN URINE 41.8 Not Estab. ug/mL [facility] MICROALBUMIN/CREA T RATIO, UR 24 0 - 29 mg/g creat [facility] Comment: ? Normal: ?0 - ??29 ? Moderately increased: 30 - 300 ? Severely increased: ? >300 Urine URINE SPECIMEN OBTAINED BY CLEAN CATCH PROCEDURE / Unknown 08/03/2020 8:24 AM ALTERATIONS SEWER 08/03/2020 Narrative [facility] - 08/04/2020 9:36 AM ALTERATIONS SEWER Performed at: ??01 - [facility] ??[id number] Supervisor Electronic Testing: Elan Crawford PhD, Phone: ??[phone] Tessa Su MANAGER [employer] URINE ORDERABLE S [facility] [phone] documented in this encounter Visit Diagnoses Diagnosis Microalbuminuria Proteinuria Type 2 diabetes mellitus without complication, without long-term current use of insulin Moderate episode of recurrent major depressive disorder Hyperlipidemia, unspecified hyperlipidemia type documented in this encounter Additional Health Concerns Assessment Noted Time PHQ-9 Depression Total Score: 3 07/20/19 21 1:00 PM ALTERATIONS SEWER documented as of this encounter Care Teams Poultry Inspector Relationship Specialty Start Date End Date Francis Pereyra MD PCP - General Family Practice 02/08/18 12/08/21 documented as of this encounter
--- OUTSIDE RECORDS SUMMARY | 2024-06-08 20:21 | XMS_ITS | Encounter Summary ---
Author Organization [facility] Address [address] [place] [address] Care Team Providers Care Audit Control Clerk Name Role Phone Francis Pereyra MD Primary Care Provider Rishi georges Encounter Details Date Type Department Care Team (Latest Contact Info) Description 06/06/2021 3:14 PM TOBACCO CURER - 06/06/2021 11:59 PM TOBACCO CURER Hospital Encounter [facility] Pre Procedure Viral Testing [address] [address] Discharge Disposition: Home or Self Care Social [...] have Coronavirus / COVID-19? No / Unsure 06/06/2021 3:14 PM TOBACCO CURER documented as of this encounter Medications at Time of Discharge Medication Sig Dispensed Refills Start Date End Date cetirizine (ZyrTEC) 10 mg tablet Take 10 mg by mouth daily. HYDROcodone-acetaminop hen (NORCO) 5-325 mg tabletIndications:Righ t wrist pain Take 1 Tablet by mouth nightly as needed for Pain, Moderate. Max Daily Amount: 1 Tablet 20 Tablet 04/29/2021 06/11/2021 albuterol sulfate 90 mcg/Actuation inhalerIndications:Mil d intermittent asthma without complication Take 1-2 Puffs by inhalation every 4 hours as needed for Shortness of Breath or Wheezing. 6.7 Gram 6 04/16/2021 03/07/2024 sertraline (ZOLOFT) 100 mg tablet Take 1 Tablet (100 mg) by mouth daily. 90 Tablet 2 04/16/2021 12/27/2021 buPROPion HCL (Wellbutrin XL) 150 mg Extended Release 24 hour tabletIndications:Mode rate episode of recurrent major depressive disorder,Generalized anxiety disorder Take 1 Tablet (150 mg) by mouth daily in the morning. 90 Tablet 2 04/16/2021 06/07/2021 rosuvastatin (CRESTOR) 40 mg tablet Take 1 Tablet (40 mg) by mouth daily at bedtime. 90 Tablet 2 04/16/2021 01/14/2023 ALPRAZolam (XANAX) 0.25 mg tabletIndications:Mode rate episode of recurrent major depressive disorder,Generalized anxiety disorder Take 1 Tablet (0.25 mg) by mouth 2 times daily as needed for Anxiety. 15 Tablet 03/07/2021 08/23/2021 L-Norgest&E estradiol-E Estrad (Seasonique) 0.15 mg-30 mcg [...] times daily. 180 Tablet 4 07/20/2020 08/23/2021 fluticasone propionate (FLONASE) 50 mcg/spray [place], Suspension nasal inhalerIndications:ETD (Eustachian tube dysfunction), right Use 2 sprays each nostril twice a day for 7-10 days 16 Gram 07/20/2020 08/23/2021 pantoprazole (PROTONIX) 40 mg Tablet, Delayed Release (E.C.) Take 1 Tablet (40 mg) by mouth daily. 90 Tablet 4 07/20/2020 10/23/2021 documented as of this encounter Plan of Treatment Upcoming Encounters Date Type Department Care Team (Late st Contact Info) Description 06/20/2024 9:30 AM TOBACCO CURER Office Visit [facility] Orthopedic Surgery at the [facility] [address] [facility] [address] [place] [address] [place] [address] [place] [address] 10/27/2024 2:45 PM CDT Office Visit [facility] Gastroenterology [address] [facility] [address] [place] [address] Bebo Benites MD [address] [facility] [address] [place] [address] documented as of this encounter Procedures Procedure Name Priority Date/Time Associated Diagnosis Comments 2019 NOVEL CORONAVIRUS (COVID-19) PCR DETECTION Routine 06/06/2021 3:14 PM TOBACCO CURER Preop testing documented in this encounter Results * 2019 NOVEL CORONAVIRUS (COVID-19) PCR DETECTION (06/06/2021 3:14 PM TOBACCO CURER) COVID-19 PCR NOT DETECTED Not Detected 06/07/20 1:19 AM TOBACCO CURER [facility] PERFORMING LAB [facility] 06/07/2021 1:19 AM TOBACCO CURER [facility] Upper Respiratory ANTERIOR NARES SWAB / Unknown Collection / Unknown 06/06/2021 3:14 PM TOBACCO CURER 06/06/2021 7:18 PM TOBACCO CURER Narrative [facility] - 06/07/2021 1:19 AM TOBACCO CURER This test has been authorized by the FDA under an Emergency Use Authorization for use by authorized laboratories.?? This test has been validated in accordance with the FDA's guidance regarding Coronavirus Disease-2019 testing.?? Optimum specimen types and timing for peak viral levels during infection have not been determined.?? A negative RT-PCR result does not rule out infection with the 2019-Novel Coronavirus. Paddy Mackey MD MICROBIOLOGY - GENER AL ORDERABLES Performing Organization Address City/State/[facility] Co de Phone Number [facility]# [id number] [address] [place] [address] documented in this encounter Visit Diagnoses Diagnosis Preop testing Preoperative examination, unspecified documented in this encounter Care Teams Audit Control Clerk Relationship Specialty Start Date End Date Francis Pereyra MD PCP - General Family Practice 02/08/18 12/08/21 documented as of this encounter
--- OUTSIDE RECORDS SUMMARY | 2024-06-08 20:21 | XMS_ITS | Encounter Summary ---
Author Organization [place] [facility] Address [address] [place] [address] Care Team Providers Care Public Relations Player Name Role Phone Francis Pereyra MD Primary Care Provider Unava ilable Reason for Referral * MRI (Routine) - Closed Specialty Diagnoses / Procedures Referred By Rodney call Referred To Contact Diagnoses Right wrist pain Procedures MRI WRIST WO CONTRAST RIGHT Francis Pereyra MD NO ADDRESS ON FILE Referral ID Status Reason Start Date Expiration Date Visits Re quested Visits Authorized [id number] Closed 04/22/2021 05/23/2022 1 1 Reason for Visit * Reason Comments Results Encounter Details Date Type Department Care Team (Late st Contact Info) Description 04/22/2021 8:00 AM CDT Office Visit [facility] at [employer] [address] [place] [address] Francis Pereyra MD NO ADDRESS ON FILE Right wrist pain (Primary Dx); Moderate episode of recurrent major depressive disorder; Refused influenza vaccine Social History Tobacco Use Types Packs/Day Years [...] have Coronavirus / COVID-19? No / Unsure 04/22/2021 7:55 AM CDT documented as of this encounter Last Filed Vital Signs Vital Sign Reading Time Taken Comments Blood Pressure 124/82 04/22/2021 7:56 AM CDT Pulse 112 04/22/2021 7:56 AM CDT Temperature 37.2 ??C (98.9 ??F) 04/22/2021 7:56 AM CD T Respiratory Rate 18 04/22/2021 7:56 AM CDT Oxygen Saturation 99% 04/22/2021 7:56 AM CDT Inhaled Oxygen Concentration - - Weight 113.9 kg (251 lb) 04/22/2021 7:56 AM CDT Height 165.1 cm (5' 5 ) 04/22/2021 7:56 AM CDT Body Mass Index 41.77 04/22/2021 7:56 AM CDT documented in this encounter Progress Notes * Francis Pereyra MD - 04/22/2021 8:00 AM CDT HISTORY OF PRESENT ILLNESS Lis Phelan, a 36 y.o. female presents with a chief complaint of Chief Complaint Patient presents with ??? Results Subjective HPI Continues with right wrist pain. Chart reviewed. First time I am seeing ehr for this. Has been seen be FAMILY COUNSELOR prior. Nerve conduction reveals mild carpal tunnel. But patient has constant pain right wirst and tinglingand numbenss in hand. Thumb and first two fingers mostly. Wrist feel swollen and is painful. Chart reveried. Started with fall. Xray neg. Wearing splint. relafen no help. otc no help. Unable to sleep well due to apin. Also not doing well from depression standpoint. Getting more depressed. Not sure if it is due to pain as well as many other thing sgoing on. Would like to adjust meds if possible. Tobacco Intervention She is not a tobacco user. Depression Screen Positive: PHQ-2 score >= 3 or PHQ-9 score >= 9 PHQ-2 Total: 0 (12/28/2020 8:03 PM) PHQ-9 Total: 9 (07/20/2020 1:00 PM) DEPRESSION PLAN OF CARE She was given a prescription for an antidepressant, Her antidepressant medication was reviewed and She was scheduled for a future appointment to do an additional evaluation Blood Pressure BP Readings from Last 3 Encounters: 04/22/21 124/82 03/07/21 130/88 12/30/20 128/64 This medical record reflects the history of present illness as obtained by myself in discussion with the patient. ROS Review of Systems - History obtained from chart review and the patient General ROS: negative for weight changes, fever Psychological ROS: positive for - depression ENT ROS: negative for nasal congestion, drainage or bleeding, sore throat, dysphagia or ear pain Respiratory ROS: negative for cough, shortness of breath, or wheezing Cardiovascular ROS: negative for chest pain or dyspnea on exertion Musculoskeletal ROS: right wrist as above Objective PHYSICAL EXAM Physical Examination: General appearance - alert, well appearing, and in no distress and oriented to person, place, and time Mental status - alert, oriented to person, place, and time, depressed mood Eyes - pupils equal and reactive, extraocular eye movements intact Musculoskeletal - right wrist appears sl swollen in comparison. Pain to palpate wrist area. Neuralgias with palpation. Has good motion but not full due to pain and swelling. Flexion causes some tingling Patient good affect. Somewhat depressed overall. No tears. Good insiught. Assessment ASSESSMENT AND PLAN ICD-10-CM ICD-9-CM 1. Right wrist pain M25.531 719.43 MRI WRIST WO CONTRAST RIGHT 2. Moderate episode of recurrent major depressive disorder F33.1 296.32 3. Refused influenza vaccine Z28.21 V64.06 Pain is out of balance with results. Needs mri for further assessment of posisble damage. wwear splint. Will sned pain med to help sleep. Will increae wellbutrin to 300 xl daily,. Will follow with update. documented in this encounter Miscellaneous Notes * Patient Instructions - Francis Pereyra MD - 04/22/2021 8:18 AM CDT An After Visit Summary was printed and given to the patient. Please call the number below for help with scheduling your test/imaging referral or physician/therapy referral. [facility] Central test [phone] [facility] Main number and ask for MRI department: [phone] [facility] Main number and ask for department: [phone] [facility] Main number and ask for department: [phone] [facility] Main number and ask for department: [phone] [facility] Main number and ask for department: [phone] documented in this encounter Plan of Treatment Upcoming Encounters Date Type Department Care Team (Late st Contact Info) Description 06/20/2024 9:30 AM HOUSEKEEPING/LAUNDRY SUPERVISOR Office Visit [facility] Orthopedic Surgery at the [facility] Medicine [address] [facility] [address] [place] [address] [place] [address] [place] [address] 10/27/2024 2:45 PM CDT Office Visit [facility] Gastroenterology [facility] [address] [facility] [address] [place] [address] Bebo Benites MD [address] [facility] [address] [place] [address] documented as of this encounter Results * MRI WRIST WO CONTRAST RIGHT (05/04/2021) Anatomical Region Laterality Modality Wrist / Hand Other Francis Pereyra MD MR ORDERABLES documented in this encounter Visit Diagnoses Diagnosis Right wrist pain- Primary Pain in joint, forearm Moderate episode of recurrent major depressive disorder Refused influenza vaccine Vaccination not carried out because of patient refusal documented in this encounter Care Teams Public Relations Player Relationship Specialty Start Date End Date Francis Pereyra MD PCP - General Family Practice 02/08/18 12/08/21 documented as of this encounter
--- OUTSIDE RECORDS SUMMARY | 2024-06-08 20:21 | XMS_ITS | Encounter Summary ---
Author Organization [facility] Address [address] [facility] Attn: [place] [address] Care Team Providers Care Brick Burner Name Role Phone Francis Pereyra MD Primary Care Provider Unawalter georges Encounter Details Date Type Department Care Team (Latest Contact Info) Description 06/06/2021 Travel Social History Tobacco Use Types Packs/Day [...] COVID-19? No / Unsure 06/06/2021 3:14 PM ROD FILLER documented as of this encounter Plan of Treatment Upcoming Encounters Date Type Department Care Team (Late st Contact Info) Description 06/20/2024 9:30 AM ROD FILLER Office Visit [facility] Orthopedic Surgery at the [facility] Medicine [address] [facility] [address] [place] [address] [place] [address] [place] [address] 10/27/2024 2:45 PM CDT Office Visit [facility]3] Gastroenterology [facility] [address] [facility] [facility] [address] [place] [address] Bebo Benites MD [address] [address] documented as of this encounter Visit Diagnoses Not on filedocumented in this encounter Care Teams Brick Burner Relationship Specialty Start Date End Date Francis Pereyra MD PCP - General Family Practice 02/08/18 12/08/21 documented as of this encounter
--- OUTSIDE RECORDS SUMMARY | 2024-06-08 20:21 | XMS_ITS | Encounter Summary ---
Author Organization [facility] Address [address] [facility] Attn: [place] [address] Care Team Providers Care Fudge Candy Maker Name Role Phone Francis Pereyra MD Primary Care Provider Rishi georges Encounter Details Date Type Department Care Team (Latest Contact Info) Description 12/28/2020 Travel Social History Tobacco Use Types Packs/Day [...] st Contact Info) Description 06/20/2024 9:30 AM ORTHOPEDIC CAST SPECIALIST Office Visit [facility] Orthopedic Surgery at the [facility] Medicine [address] [facility] [address] [place] [address] [place] [address] [place] [address] 10/27/2024 2:45 PM CDT Office Visit [facility] Gastroenterology [facility] [address] [facility] [address] [place] [address] Bebo Benites MD [address] [address] documented as of this encounter Visit Diagnoses Not on filedocumented in this encounter Additional Health Concerns Infection Onset Date Last Indicated Resolved Time R/O GI Pathogen 12/28/2020 12/29/2020 12/29/2020 2 :24 PM CDT documented as of this encounter Care Teams Fudge Candy Maker Relationship Specialty Start Date End Date Francis Pereyra MD PCP - General Family Practice 02/08/18 12/08/21 documented as of this encounter
--- OUTSIDE RECORDS SUMMARY | 2024-06-08 20:21 | XMS_ITS | Encounter Summary ---
Author Organization [facility] Address [address] [place] [address] Care Team Providers Care Spiral Spring Winder Name Role Phone Francis Pereyra MD Primary Care Provider Rishi georges Encounter Details Date Type Department Care Team (Late Contact Info) Description 01/16/2021 Orders Only [facility] at [facility] [employer] [place] [address] [place] [phone] Henrietta Andrade, drop wire builder pain of right wrist Social History Tobacco Use Types [...] (Late Contact Info) Description 06/20/2024 9:30 AM LINE PRODUCTION COOK Office Visit [facility] Orthopedic Surgery at the [facility] [address] [facility] [address] [place] [address] [place] [address] [place] [address] 10/27/2024 2:45 PM CDT Office Visit [facility] Gastroenterology [facility] [address] [facility] [address] [place] [address] Bebo Benites MD [address] [facility] [address] [place] [address] documented as of this encounter Visit Diagnoses Diagnosis Acute pain of right wrist documented in this encounter Care Teams Spiral Spring Winder Relationship Specialty Start Date End Date Francis Pereyra MD PCP - General Family Practice 02/08/18 12/08/21 documented as of this encounter
--- OUTSIDE RECORDS SUMMARY | 2024-06-08 20:21 | XMS_ITS | Encounter Summary ---
Author Organization [facility] Address [address] [place] [address] Care Team Providers Care Patient Svcs Mgr Name Role Phone Francis Pereyra MD Primary Care Provider Unava ilable Reason for Visit * Reason Onset Date Comments Medication Refill 04/16/2021 Encounter Details Date Type Department Care Team (Late st Contact Info) Description 04/16/2021 Refill [facility] at [facility] [employer] [place] [address] [place] [address] Francis Pereyra MD NO ADDRESS ON FILE Mild intermittent asthma without complication; Moderate episode of recurrent major depressive disorder; [...] Telephone Encounter - Henrietta Andrade RN - 04/16/2021 1:30 PM CDT NEEL 03/07/2021 documented in this encounter Plan of Treatment Upcoming Encounters Date Type Department Care Team (Late st Contact Info) Description 06/20/2024 9:30 AM SPORTS STATISTICIAN Office Visit [facility] Orthopedic Surgery at the [facility] [address] [facility] [address] [place] [address] [place] [address] [place] [address] 10/27/2024 2:45 PM CDT Office Visit [facility] Gastroenterology [facility] [address] [facility] [address] [place] [address] Bebo Benites MD [address] [facility] [address] [place] [address] documented as of this encounter Visit Diagnoses Diagnosis Mild intermittent asthma without complication Unspecified asthma Moderate episode of recurrent major depressive disorder Generalized anxiety disorder documented in this encounter Care Teams Patient Svcs Mgr Relationship Specialty Start Date End Date Francis Pereyra MD PCP - General Family Practice 02/08/18 12/08/21 documented as of this encounter
--- OUTSIDE RECORDS SUMMARY | 2024-06-08 20:21 | XMS_ITS | Encounter Summary ---
Author Organization [facility] Address [address] [facility] Attn: [place] [address] Care Team Providers Care Obiee Lead Developer Name Role Phone Francis Pereyra MD Primary Care Provider Rishi georges Encounter Details Date Type Department Care Team (Latest Contact Info) Description 01/03/2020 Travel Social History Tobacco Use Types Packs/Day [...] st Contact Info) Description 06/20/2024 9:30 AM AGRICULTURAL COMMODITIES GRADER Office Visit [facility] Orthopedic Surgery at the [facility] Medicine [address] [facility] [address] [place] [address] [place] [address] [place] [address] 10/27/2024 2:45 PM CDT Office Visit [facility] Gastroenterology [facility] [address] [facility] [address] [place] [address] Bebo Benites MD [address] [address] documented as of this encounter Visit Diagnoses Not on filedocumented in this encounter Additional Health Concerns Assessment Noted Time PHQ-9 Depression Total Score: 6 08/29/19 20 10:00 AM CDT documented as of this encounter Care Teams Obiee Lead Developer Relationship Specialty Start Date End Date Francis Pereyra MD PCP - General Family Practice 02/08/18 12/08/21 documented as of this encounter
--- OUTSIDE RECORDS SUMMARY | 2024-06-08 20:21 | XMS_ITS | Encounter Summary ---
Author Organization [facility] Address [address] [facility] Attn: [place] [address] Care Team Providers Care Men'S Custom Hair Piece Consultant Name Role Phone Francis Pereyra MD Primary Care Provider Rishi georges Encounter Details Date Type Department Care Team (Latest Contact Info) Description 04/22/2021 Travel Social History Tobacco Use Types Packs/Day [...] st Contact Info) Description 06/20/2024 9:30 AM BI CONSULTANT Office Visit [facility] Orthopedic Surgery at the [facility] Medicine [address] [facility] [address] [place] [address] [place] [address] [place] [address] 10/27/2024 2:45 PM CDT Office Visit [facility] Gastroenterology [facility] [address] [facility] [address] [place] [address] Bebo Benites MD [address] [address] documented as of this encounter Visit Diagnoses Not on filedocumented in this encounter Care Teams Men'S Custom Hair Piece Consultant Relationship Specialty Start Date End Date Francis Pereyra MD PCP - General Family Practice 02/08/18 12/08/21 documented as of this encounter
--- OUTSIDE RECORDS SUMMARY | 2024-06-08 20:21 | XMS_ITS | Encounter Summary ---
Author Organization [facility] Address [address] [facility] Attn: [place] [address] Care Team Providers Care Can Reforming Machine Operator Name Role Phone Francis Pereyra MD Primary Care Provider Rishi georges Encounter Details Date Type Department Care Team (Latest Contact Info) Description 06/07/2021 Travel Social History Tobacco Use Types Packs/Day [...] have Coronavirus / COVID-19? No / Unsure 06/07/2021 3:21 PM INSERTER documented as of this encounter Plan of Treatment Upcoming Encounters Date Type Department Care Team (Late st Contact Info) Description 06/20/2024 9:30 AM INSERTER Office Visit [facility] Orthopedic Surgery at the [facility] Medicine [address] [facility] [address] [place] [address] [place] [address] [place] [address] 10/27/2024 2:45 PM CDT Office Visit [facility] Gastroenterology [facility] [address] [facility] [address] [place] [address] Bebo Benites MD [address] [address] documented as of this encounter Visit Diagnoses Not on filedocumented in this encounter Care Teams Can Reforming Machine Operator Relationship Specialty Start Date End Date Francis Pereyra MD PCP - General Family Practice 02/08/18 12/08/21 documented as of this encounter
--- OUTSIDE RECORDS SUMMARY | 2024-06-08 20:21 | XMS_ITS | Encounter Summary ---
Author Organization [facility] Address [address] [place] [address] Care Team Providers Care Scientific Research Associate Name Role Phone Francis Pereyra MD Primary Care Provider Unava ilable Reason for Visit * Reason Onset Date Comments FMLA/ Disability paperwork 06/10/2021 Encounter Details Date Type Department Care Team (Late st Contact Info) Description 06/10/2021 Telephone [facility] Orthopedics [facility] [address] [facility] [address] [place] [address] [place] [address] [address] [place] [address] FMLA/ Disability paperwork Social History Tobacco Use Types Packs/Day Years [...] COVID-19? No / Unsure 06/07/2021 3:21 PM TRIMMER OPERATOR THREE KNIFE documented as of this encounter Miscellaneous Notes * Telephone Encounter - Kera Simpson - 06/10/2021 1:13 PM CST - Patient was calling to follow up on FMLA/ Disability paperwork that was sent on May 28. Please call patient with an update. MER OPERATOR THREE KNIFE documented in this encounter Plan of Treatment Upcoming Encounters Date Type Department Care Team (Late st Contact Info) Description 06/20/2024 9:30 AM TRIMMER OPERATOR THREE KNIFE Office Visit [facility] Orthopedic Surgery at the [facility] [address] [facility] [address] [place] [address] [place] [address] [place] [address] 10/27/2024 2:45 PM CDT Office Visit [facility] Gastroenterology [facility] [address] [facility] [address] [place] [address] Bbeo Benites MD [address] [facility] [address] [place] [address] documented as of this encounter Visit Diagnoses Not on filedocumented in this encounter Care Teams Scientific Research Associate Relationship Specialty Start Date End Date Francis Pereyra MD PCP - General Family Practice 02/08/18 12/08/21 documented as of this encounter
--- OUTSIDE RECORDS SUMMARY | 2024-06-08 20:21 | XMS_ITS | Encounter Summary ---
Author Organization [facility] Address 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 Name Role Phone Francis Pereyra MD Primary Care Provider Unava ilable Reason for Visit * Auth/Cert Specialty Diagnoses / Procedures Referred By Rodney call Referred To Contact Diagnoses Right Carpal Tunnel Syndrome Procedures MA REVISE MEDIAN N/[place] [id number] [place] [address] Referral ID Status Reason Start Date Expiration Date Visits Re quested Visits Authorized [id number] 05/28/2021 1 1 Encounter Details Date Type Department Care Team (Late st Contact Info) Description 06/11/2021 8:28 AM BRANCH LEAD - 06/11/2021 9:16 AM BRANCH LEAD Surgery [facility] [address] [place] [address] [place] [id number] [place] [address] RIGHT CARPAL TUNNEL RELEASE Surgery Details Date/Time Status Location OR Service Patient Class Case Class Case Type Trauma Case? 06/11/2021 8:28 AM Posted STLO CC OR CC OR 03 Orthopedics Surgical OP/Extended Care Elective No Panel 1 Procedure LRB Anes Op Region Wound Class Comments RIGHT CARPAL TUNNEL RELEASE Right Monitored Anesthetic Care Wrist Clean-I Surgeon Surgeon Role Service Panel Paddy Mackey [...] have Coronavirus / COVID-19? No / Unsure 06/11/2021 6:50 AM BRANCH LEAD documented as of this encounter Last Filed Vital Signs Vital Sign Reading Time Taken Comments Blood Pressure 145/86 06/11/2021 7:31 AM BRANCH LEAD Pulse 91 06/11/2021 7:31 AM BRANCH LEAD Temperature 36.8 ??C (98.3 ??F) 06/11/2021 7:31 AM CS T Respiratory Rate 16 06/11/2021 7:31 AM BRANCH LEAD Oxygen Saturation 96% 06/11/2021 7:31 AM BRANCH LEAD Inhaled Oxygen Concentration - - Weight 112.5 kg (248 lb) 06/11/2021 7:31 AM BRANCH LEAD Height 167.6 cm (5' 6 ) 06/11/2021 7:31 AM BRANCH LEAD Body Mass Index 40.03 06/11/2021 7:31 AM BRANCH LEAD documented in this encounter Discharge Instructions * Discharge Instructions* Paddy Mackey MD - 06/11/2021 9:06 AM BRANCH LEAD 1. Begin active motion of your fingers immediately. Light activities (carrying less than the weightof a coffee cup) are appropriate. 2. You may remove your dressing 3 days after surgery and shower. Do not scrub or soak the wound. 3. Sutures will be removed at your postoperative visit which is scheduled 10-14 days after your surgery and will be on your discharge paperwork. 4. Hand therapy for gentle active massage and finger range of motion will only be ordered if neededand is not anticipated. 5. After your first postoperative visit is complete, follow up is usually not necessary unless you or your surgeon has concerns. Please remember these outlines are guidelines only. Your care may differ from the typical outlines provided. Please talk to your surgeon or your surgeon's nurse or medical leader if you have any questions about your postoperative care. Dr. Mackey Postoperative Guidelines - Follow-up Appointments Your first postoperative visit with Dr. Mackey is listed on the first page of your discharge instructions. It is typically within 10-14 days, but may be sooner if you need to start therapy earlier than that. Dressing and Wound Care ??? A small dressing has been placed on your hand to reduce motion and control swelling. Keep your dressing clean and dry for 3 days. You should be able to cover the dressing with a standard exam glove and tape the cuff to seal it for bathing and personal hygiene for the first 3 days. After 3 days you may remove the dressing and leave the incision open to air. Keep the wound clean by letting soapy water run over the wound and gently pat it dry, but do not scrub or submerge the wound underwater (e.g. bath, hot tub, pool, etc.). ??? Wear a plastic bag or exam glove over your dressing/splint whenever you take a shower or bath ??? Swelling is normal after surgery. Elevate your hand/arm so the surgical site is above your heart to decrease the swelling. Swelling is like water, it runs downhill, and you want to position your hand so that a drop of water would run downhill from your finger tips to your heart. This is especially important for the first 72 hours after surgery. o The best way to elevate your hand/arm is with your fingers pointing towards the ceiling and your hand/arm above the level of the heart o You can use pillows to help prop your hand/arm up when sitting or lying down. ??? If you are experiencing pain, be sure you are elevating your hand/arm as often as possible. ??? Apply an ice pack over your dressing/splint for 20 minutes of every hour for the first 3 days when you are awake. This can help to reduce swelling and inflammation. Be sure the ice pack is waterproof so it does not leak on the dressing/splint. A simple ice pack can be made by adding ten cubes and a small amount of water in a small zip-lock bag. Seal this small bag tightly. Place this small bag in a larger zip lock bag. Apply to the area in pain. ??? If the dressing feels too tight in spite of elevation, loosen the outer brown LORENA wrap but do not remove the entire dressing. ACTIVITIES: ??? Bend and straighten the parts of your hand/arm that are not included in your surgical dressing or splint. Do this at least 6 times a day, as this will help decrease swelling and speed up your recovery. This includes your fingers when exposed so that you make a full fist. ??? If you can see a joint, you can move it. Your splint is immobilizing all joints that you cannotmove, so if a joint is under your splint, you should not move it. ??? If you watch TV, spend your commercial breaks working on moving your joints. POSTOPERATIVE CARE/CONCERNS: ??? You may experience some temporary numbness or tingling in your fingers from either the surgery,numbing medications used in surgery, or swelling. ??? You should have very little to no bleeding on your dressing. ??? Notify the office (see contact info at bottom of page) for any of the following: o Excessive pain not relieved by rest, elevation, and pain medications o Feeling that the dressing is too tight in spite of adequately elevating hand/arm o Active bleeding through the dressing o Drainage from the wound site or pin sites o Foul odor from the dressing/wound o Temperature greater that 101? F or chills o Blue or excessively cold fingertips o Numbness of the fingertips that does not improve in spite of adequately elevating hand/arm PAIN MEDICATION: A prescription for pain medication has been included here - please fill it at your local pharmacy if it has not been filled at the hospital ??? Do not take pain medication or anti-inflammatories on an empty stomach. ??? It is illegal to drive while taking narcotic pain medication. ??? Pain is a normal part of the recovery after surgery. The pain medication provided to you will help to decrease the discomfort but will not completely eliminate the pain. ??? Your pain should decrease over the first few days after surgery which will allow you to take less pain medicine, increase the time between doses of medication, or stop taking all pain medicine. ??? Ibuprofen (Brand Name: Advil) 600mg with Acetaminophen (Brand Name: Tylenol) 1,000mg three times daily with food (breakfast, lunch, and dinner) is an effective pain medication regimen which has been shown to have the same pain- killing strength as other high strength opioid narcotics. If you areclear to take NSAIDS (I.e. no kidney, heart, or stomach ulcer concerns) and you are clear to take Tylenol (I.e. no liver conditions), you should consider taking this pain medication regimen around the clock for the first week post-operatively. You can take your narcotic pain medication in addition to this for break-through pain, over and above that controlled by the Ibuprofen and Tylenol. OFFICE CONTACT NUMBERS ??? During business hours (Mon-Fri 8am-4:30pm) o Dr. Mackey's Office: phone: [phone] ??? After hours/weekend (Emergencies Only; no medication refills) o [facility]: [phone] Orthopedic Hand Service Perioperative Narcotic Considerations The Orthopedic hand surgeons of [facility] manage perioperative pain as well as the pain after an acute injury. Our surgeons do not manage chronic pain (pain three months after the injury/surgery), and will refer patients seeking longer term care for their painful condition to a pain management service or their primary physician as those physicians typically establish penitentiary treatment relationships with patients. Following elective hand and upper extremity surgery, a prescription for an opioid-based medication will likely be given to the patient. Your surgeon will decide which is the most appropriate. Procedures that will need aggressive and continuous post-operative hand therapy (and adequate acute pain control during this period) may need a greater number of pain tablets to last the during the therapy period. Your surgeon may discuss with you reasoning behind the number of tablets that will be prescribed. There are many things that a patient can do to manage their pain after surgery or after an acute injury: ??? Move the shoulder, elbow and all other joints that are not immobilized by the post-operative dressing as much as possible. ??? Elevate the operated hand and wrist so that swelling can be reduced. ??? Place ice and a few ounces of tap water in a small sealed plastic bag, and place it on the outside of the surgical dressing. Keep it there until the operated part under the ice bag starts to feelcold. This can reduce both pain and swelling. ??? Anti-inflammatory pain medication such as Advil, Aleve, generic Ibuprofen, generic Naproxen or generic Naprosyn can all be used in addition to the narcotics prescribed by your doctor. ??? Prescription anti-inflammatory pain medication such as Celebrex, Indocin or Toradol can be called in to your pharmacy if '[id number]' anti- inflammatory pain medication do not decrease the pain even when taken on a regular basis. These can be called in during the hours 9am to 4pm, during the workweek. ??? 'Alternative' treatments such as acupuncture, meditation and biofeedback can all be used to decrease post-operative pain. The Orthopedic hand surgeons of [facility] want you to be as comfortable [...] interpretation of pain. The 'opioid epidemic' in [place] is very real, and we as physicians [...] your surgeon or his/her nurse or MA. CH LEAD documented in this encounter Medications at Time [...] 07/20/2020 08/23/2021 fluticasone propionate (FLONASE) 50 mcg/spray [place], Suspension nasal inhalerIndications:ETD (Eustachian tube dysfunction), right Use 2 sprays each nostril twice a day for 7-10 days 16 Gram 07/20/2020 08/23/2021 pantoprazole (PROTONIX) 40 mg Tablet, Delayed Release (E.C.) Take 1 Tablet (40 mg) by mouth daily. 90 Tablet 4 07/20/2020 10/23/2021 documented as of this encounter H&P Notes * Paddy Mackey MD - 06/11/2021 9:35 AM CST I have reviewed the last H&P and examined the patient today and there are no changes. CC: Hand/finger numbness, tingling and discomfort. ?? HPI: Lis Phelan is a 36 y.o. female who presents for the first time with the primary complaint of numbness, tingling, and to a lesser degree, vague radiating pain involving the right thumb, index, and long fingers. She rates this pain 7/10. ?? She does note nocturnal awakening. She does note worsening symptoms with activity. She does not report any radiating electrical type pain or sensations coming from the proximal arm or neck. ?? She first noted these symptoms 5 months ago, which had an insidious onset. She has had a reasonablecourse of nighttime splinting, and has not received a cortisone injection in the past for these symptoms. ?? They feel as if non-operative treatment has failed to alleviate their symptoms. ? Past Medical, Surgical, Social, and Family History, as well as Medications and Allergies can be found within the electronic medical record and were reviewed as part of this encounter. ? ROS: A complete ROS was reviewed and found to be negative with the exception of the findings noted in this encounter. ? Physical Exam: ?? Gen: alert and oriented x3. No acute distress. ?? Psych: affect appropriate, answers questions with age appropriate rationality, normal mood. ?? HEENT: EOEMI, sclera anicteric. ?? Neck: normal ROM, supple. ?? CV: normal rate, distal pulses intact in the bilateral upper extremities. ?? Respirations: normal rate, no distress ?? Skin: warm, dry, no rashes or breaks ?? Neuro: Sensation to light touch is Decreased in the median nerve distribution compared to the smallfinger. There is a negative Spurling's. ? MSK/Upper extremity: Examination of the right hand(s) shows normal posture. There is full range of motion at the wrist in both flexion/extension as well as pronation/supination, and at the MCP, PIP, and DIP joints of all digits. Capillary refill is brisk in all digits. ?? There is no thenar atrophy present, and there is Normal thumb abduction strength. Phalen's test is positive. There is a positive Tinel's over the median nerve at the wrist. Carpal compression test ispositive. ? Imaging: No new films were obtained in the office today. ? EMG: Electrodiagnostics have been obtained. Which demonstrated mild delay right median SNAP velocity. ? A/P: Lis Phelan is a 36 y.o. female with and history and physical exam consistent with right carpal tunnel syndrome. ?? 1. We discussed the nature of the suspected diagnosis, further workup, and treatment options, including bracing, cortisone injection, and surgery. ?? 2. Given the patient's presenting history, prior testing, and symptoms, I did not recommend formal evaluation of suspected peripheral nerve compression with an electodiagnostic study at this point asshe has already undergone nerve conduction study. ?? 3. Risks of surgery were discussed with [...] elected to proceed with surgery as described. ?? The first postoperative follow-up will be 10-14 days post-op. ?? On the day of the visit, I spent 30 minutes providing care to this patient including Preparing to see the patient, Performing a medically appropriate examination and/or evaluation, Counseling and educating the patient/family/caregiver, Ordering medications, tests or procedures, Documenting clinicalinformation in the medical record and Independently interpreting results and communicating results to the patient/family/caregiver (not separately reported). CH LEAD documented in this encounter OR Notes * Operative Report - Paddy Mackey MD - 06/11/2021 9:30 AM CST Pre-op Diagnosis: right carpal tunnel syndrome Post-op Diagnosis: right carpal tunnel syndrome Procedure: right open carpal tunnel release (CPT: 56722) Surgeon: Paddy Mackey MD Anesthesia: MAC + Local Forearm Tourniquet time: Per Anaesthesia Record EBL, specimens, cultures, drains, complications: none Indication for procedure:@ is a 36 y.o.-year-old female with longstanding carpal tunnel syndrome who has continued to have symptoms that did not respond adequately to non-operative management. We discussed the risks of the above mentioned procedure, including but not limited to: pillar pain, infection, wound complications, persistent or recurrent numbness and tingling, weakness of the hand, need for revision surgery, neurovascular injury, persistent or worsened pain, and other complications. Informed consent was documented. DESCRIPTION OF OPERATION: The patient was identified in the preoperative holding area by me, and the surgical site was signed. We again discussed the planned operation and the risks therein, and informed consent was confirmed. The patient was brought back to the operating room an arm board was attached to the OR table. A detailed time-out was performed, and antibiotics were not not given due to the nature of the case. Monitored anesthesia care was administered, and we sterilely injected 5 ml of a 1:1 mix of plain 1%lidocaine and 0.25% Marcaine into the skin overlying the planned incision, and into the subcutaneous tissue overlying the transverse carpal ligament. We sterilely prepped and draped the right in a normal fashion after placing a well-padded tourniquet on the forearm. The arm was exsanguinated and a forearm tourniquet was utilized. A 3 cm longitudinal incision was made in the palm from the wrist crease distally in line with the radial border of the 4th ray. Sharp dissection was continued down through the wilson fascia and self retaining retractors were used to increase visualization. The transverse carpal ligament was identified and incised carefully from as far proximal to distal under direct vision using the knife. Then the tenotomy scissors and a right angle retractor were utilized to fully visualize the distal releaseto well past the fat pad where the ligament ended and the space was wide open. Similarly, direct vision of the scissors from the retractor allowed release proximally all the way into the forearm fascia to insure complete release. Irrigation of the wound with saline followed by closure with interrupted nylon skin sutures were carried out followed by xeroform and soft dressing application and tourniquet removal. The fingers pinked up nicely and the patient tolerated the procedure well. CH LEAD documented in this encounter Plan of Treatment Upcoming Encounters Date Type Department Care Team (Late st Contact Info) Description 06/20/2024 9:30 AM BRANCH LEAD Office Visit [facility] Orthopedic Surgery at the [facility] [address] [place] [address] [place] [id number] [place] [address] 10/27/2024 2:45 PM CDT Office Visit [facility] Gastroenterology [address] [place] [address] Bebo Benites MD [address] [place] [address] documented as of this encounter Procedures Procedure Name Priority Date/Time Associated Diagnosis Comments CARPAL TUNNEL RELEASE 06/11/2021 8:28 AM BRANCH LEAD Right Carpal Tunnel Syndrome POC , URINE Routine 06/11/2021 7:30 AM BRANCH LEAD POC GLUCOSE Routine 06/11/2021 7:25 AM BRANCH LEAD documented in this encounter Results * POC , URINE (06/11/2021 7:30 AM BRANCH LEAD) HCG QUAL URINE Negative Negative 06/11/2021 7:30 AM BRANCH LEAD [facility] RADIOLOGY MULTI SITE/OPS [place] Urine 06/11/2021 7:30 AM BRANCH LEAD 06/11/2021 12:51 PM BRANCH LEAD Paddy Mackey MD POINT OF CARE TESTIN G [facility] MULTI SITE/OPS [place] CLIA # [id number] [place] [address] * (ABNORMAL) POC GLUCOSE (06/11/2021 7:25 AM BRANCH LEAD) GLUCOSE POC 129(H) 74 - 99 mg/dL 06/11/2021 7:25 AM BRANCH LEAD [facility] RADIOLOGY MULTI SITE/OPS [place] SPECIMEN SOURCE, GLUCOSE POC Whole Blood 06/11/2021 7:25 AM BRANCH LEAD [facility] MULTI SITE/OPS [place] Blood, whole 06/11/2021 7:25 AM BRANCH LEAD 06/11/2021 7:54 AM BRANCH LEAD Paddy Mackey MD POINT OF CARE TESTIN G [facility] RADIOLOGY MULTI SITE/OPS [place] CLIA # [id number] [place] [address] * 2019 NOVEL CORONAVIRUS (COVID-19) PCR DETECTION (06/06/2021 3:14 PM BRANCH LEAD) COVID-19 PCR NOT DETECTED Not Detected 06/07/20 1:19 AM BRANCH LEAD [facility] PERFORMING LAB [facility] 06/07/2021 1:19 AM BRANCH LEAD [facility] Upper Respiratory ANTERIOR NARES SWAB / Unknown Collection / Unknown 06/06/2021 3:14 PM BRANCH LEAD 06/06/2021 7:18 PM BRANCH LEAD Narrative [facility] - 06/07/2021 1:19 AM BRANCH LEAD This test has been authorized by the [...] Mackey MD MICROBIOLOGY - GENER AL ORDERABLES [facility] [employer] [facility] CLIA# [id number] [address] [facility] [place] [address] documented in this encounter Visit Diagnoses Not on filedocumented in this encounter Administered Medications Inactive Administered Medications - up to 3 most recent administrations Medication Order MAR Action Action Date Dose Rate Site acetaminophen (TYLENOL) tablet 650 mg 650 mg, Oral, ONE TIME ONLY, 1 dose, On Thu06/11/21 at 0730, Stat, Pre-op Given 06/11/2021 7:54 AM BRANCH LEAD 650 mg bupivacaine PF (SENSORCAINE MPF) 2.5 mg/mL (0.25%) 12.5 mg, lidocaine PF 1% (XYLOCAINE MPF) 5 mL INJECTION See Admin Instructions, INTRA-PROCEDURE PRN, Starting on Thu06/11/21 at 0828, Until Thu06/11/21 at 1221, Other (See Comment), local, Routine, Pre-op Given 06/11/2021 9:03 AM BRANCH LEAD 8 mL Operative Site diphenhydrAMINE (BENADRYL) injection 12.5 mg 12.5 mg, IV, POST-PROCEDURE ONCE PRN, 1 dose, Starting on Thu06/11/21 at 0656, Until Thu06/11/21 at 1221, Nausea/Emesis, Routine, PACU fentaNYL PF (SUBLIMAZE) 50 mcg/mL injection 50 mcg 50 mcg, IV, POST-PROCEDURE Q 3 MINUTES PRN, 5 doses, Starting on Thu06/11/21 at 0656, Until Thu06/11/21 at 1221, Pain, Routine, PACU HYDROmorphone (DILAUDID) 2 mg/mL injection 0.6 mg 0.6 mg, IV, POST-PROCEDURE Q 5 MINUTES PRN, 5 doses, Starting on Thu06/11/21 at 0656, Until Thu06/11/21 at 1221, Pain, Routine, PACU lactated ringers infusion IV, at 150 mL/hr, PRE-PROCEDURE CONTINUOUS, Starting on Thu06/11/21 at 0730, Until Thu06/11/21 at 1221, Routine, Pre-op Restarted 06/11/2021 9:29 AM BRANCH LEAD Continue from Pre-Op 06/11/2021 8:52 AM BRANCH LEAD 150 mL/hr New Bag 06/11/2021 7:52 AM BRANCH LEAD 150 mL/hr lactated ringers infusion IV, at 30 mL/hr, POST-PROCEDURE CONTINUOUS, Starting on Thu06/11/21 at 0700, Until Thu06/11/21 at 1221, Routine, PACU lidocaine PF 2% (XYLOCAINE MPF) injection 0.3 mL 0.3 mL, Infiltration, PRE-PROCEDURE ONCE, Starting on Thu06/11/21 at 0717, Until Thu06/11/21 at 1221, Routine, Pre-op naloxone (NARCAN) 0.4 mg/mL injection 0.1 mg 0.1 mg, IV, SEE ADMIN INSTRUCTIONS, Starting on Thu06/11/21 at 0656, Until Thu06/11/21 at 1221, Routine, PACU ondansetron (ZOFRAN) 4 mg/2 mL injection 4 mg 4 mg, IV, POST-PROCEDURE ONCE PRN, 1 dose, Starting on Thu06/11/21 at 0656, Until Thu06/11/21 at 1221, Nausea/Emesis, Routine, PACU prochlorperazine (COMPAZINE) injection 5 mg 5 mg, IV, POST-PROCEDURE ONCE PRN, 1 dose, Starting on Thu06/11/21 at 0656, Until Thu06/11/21 at 1221, Nausea/Emesis, Routine, PACU documented in this encounter Active and Recently Administered Medications Times are shown in BRANCH LEAD. Scheduled Medication Order 06/09/2021 06/10/2021 06/11/2021 acetaminophen (TYLENOL) tablet 650 mg (COMPLETED) 650 mg, Oral, ONE TIME ONLY, 1 dose, On Thu06/11/21 at 0730, Stat, Pre-op 0754 (Given - Provid er: Jennifer Gustafson RN) ceFAZolin in sterile water (ANCEF) 2 gram/20 mL IV Syringe (PREMIX) 2,000 mg (COMPLETED) 2,000 mg, IV, PRE-PROCEDURE ONCE, 1 dose, Starting on Thu06/11/21 at 0717, Until Thu06/11/21 at 0852, Routine, Pre-op, Antibiotic Indication: Surgical prophylaxis 0852 (Given - Provid er: Celsa Fonseca CRNA) lidocaine PF 2% (XYLOCAINE MPF) injection 0.3 mL 0.3 mL, Infiltration, PRE-PROCEDURE ONCE, Starting on Thu06/11/21 at 0717, Until Thu06/11/21 at 1221, Routine, Pre-op naloxone (NARCAN) 0.4 mg/mL injection 0.1 mg 0.1 mg, IV, SEE ADMIN INSTRUCTIONS, Starting on Thu06/11/21 at 0656, Until Thu06/11/21 at 1221, Routine, PACU Continuous Medication Order 06/09/2021 06/10/2021 06/11/2021 lactated ringers infusion IV, at 150 mL/hr, PRE-PROCEDURE CONTINUOUS, Starting on Thu06/11/21 at 0730, Until Thu06/11/21 at 1221, Routine, Pre-op 0752 (New Bag - Prov ider: Ashley Valadez RN)0852 (Continue from Pre-Op - Provider: Celsa Fonseca CRNA)0928 (Paused - Provider: Celsa Fonseca CRNA - Comment: Switch to gravity)0929 (Restarted - Provider: Celsa Fonesca CRNA) lactated ringers infusion IV, at 30 mL/hr, POST-PROCEDURE CONTINUOUS, Starting on Thu06/11/21 at 0700, Until Thu06/11/21 at 1221, Routine, PACU 0700 (Due)1021 (Stop ped - Provider: Rebecca Tamayo RN) PRN Medication Order 06/09/2021 06/10/2021 06/11/2021 bupivacaine PF (SENSORCAINE MPF) 2.5 mg/mL (0.25%) 12.5 mg, lidocaine PF 1% (XYLOCAINE MPF) 5 mL INJECTION See Admin Instructions, INTRA-PROCEDURE PRN, Starting on Thu06/11/21 at 0828, Until Thu06/11/21 at 1221, Other (See Comment), local, Routine, Pre-op 0903 (Given - Provid er: Paddy Mackey MD) diphenhydrAMINE (BENADRYL) injection 12.5 mg 12.5 mg, IV, POST-PROCEDURE ONCE PRN, 1 dose, Starting on Thu06/11/21 at 0656, Until Thu06/11/21 at 1221, Nausea/Emesis, Routine, PACU fentaNYL PF (SUBLIMAZE) 50 mcg/mL injection 50 mcg 50 mcg, IV, POST-PROCEDURE Q 3 MINUTES PRN, 5 doses, Starting on Thu06/11/21 at 0656, Until Thu06/11/21 at 1221, Pain, Routine, PACU HYDROmorphone (DILAUDID) 2 mg/mL injection 0.6 mg 0.6 mg, IV, POST-PROCEDURE Q 5 MINUTES PRN, 5 doses, Starting on Thu06/11/21 at 0656, Until Thu06/11/21 at 1221, Pain, Routine, PACU ondansetron (ZOFRAN) 4 mg/2 mL injection 4 mg 4 mg, IV, POST-PROCEDURE ONCE PRN, 1 dose, Starting on Thu06/11/21 at 0656, Until Thu06/11/21 at 1221, Nausea/Emesis, Routine, PACU prochlorperazine (COMPAZINE) injection 5 mg 5 mg, IV, POST-PROCEDURE ONCE PRN, 1 dose, Starting on Thu06/11/21 at 0656, Until Thu06/11/21 at 1221, Nausea/Emesis, Routine, PACU documented in this encounter Care Teams Truck Shop Supervisor Relationship Specialty Start Date End Date Francis Pereyra MD PCP - General Family Practice 02/08/18 12/08/21 documented as of this encounter
--- OUTSIDE RECORDS SUMMARY | 2024-06-08 20:21 | XMS_ITS | Encounter Summary ---
Author Organization [facility] Address [address] [place] [address] Care Team Providers Care Singer Songwriter Name Role Phone Francis Pereyra MD Primary Care Provider Unava ilable Reason for Visit * Reason Comments Hand Pain Right hand, Fallen 3 times in December Encounter Details Date Type Department Care Team (Late st Contact Info) Description 03/07/2021 9:00 AM CDT Office Visit [facility] at [facility] [email or web address] [place] [address] [address] Lis Nails FNP NO ADDRESS ON FILE Right wrist pain (Primary Dx) Social History Tobacco Use Types [...] have Coronavirus / COVID-19? No / Unsure 03/07/2021 8:54 AM CDT documented as of this encounter Last Filed Vital Signs Vital Sign Reading Time Taken Comments Blood Pressure 130/88 03/07/2021 8:55 AM CDT Pulse 104 03/07/2021 8:55 AM CDT Temperature 36.7 ??C (98 ??F) 03/07/2021 8:55 AM CDT Respiratory Rate 18 03/07/2021 8:55 AM CDT Oxygen Saturation 98% 03/07/2021 8:55 AM CDT Inhaled Oxygen Concentration - - Weight 111.6 kg (246 lb) 03/07/2021 8:55 AM CDT Height 165.1 cm (5' 5 ) 03/07/2021 8:55 AM CDT Body Mass Index 40.94 03/07/2021 8:55 AM CDT documented in this encounter Progress Notes * Lis Nails, ANA - 03/07/2021 9:18 AM CDT HISTORY OF PRESENT ILLNESS Lis Phelan, a 36 y.o. female presents with a chief complaint of Chief Complaint Patient presents with ??? Hand Pain Right hand, Fallen 3 times in December Subjective HPI Patient states she fell up the stairs 3x in December. Xray's were done and showed no fracture. Still complaining of right wrist pain and with numbness/tingling in right hand and arm. Is taking OTC tylenol and ibuprofen with minimal temporary relief. Also, continuing to rest, elevate, ice, and wear brace. Pain, numbness, tingling, and stiffness worse in the mornings. Tobacco Intervention She is not a current tobacco user- former. Blood Pressure BP Readings from Last 3 Encounters: 03/07/21 130/88 12/30/20 128/64 12/11/20 116/74 Normal BMI Range: 18 & older: > or = 18.5 and < 25 Body mass index is 40.94 kg/m??. This medical record reflects the history of present illness as obtained by myself in discussion with the patient. ROS Review of Systems - History obtained from chart review and the patient General ROS: negative for weight changes, fever Psychological ROS: negative for anxiety or depressive symptoms Respiratory ROS: negative for cough, shortness of breath, or wheezing Cardiovascular ROS: negative for chest pain or dyspnea on exertion Musculoskeletal ROS: positive for - pain in right hand/arm Neurological ROS: positive for - numbness/tingling right hand/arm Dermatological ROS: negative for skin rashes or unusual skin lesions Objective PHYSICAL EXAM Physical Examination: General appearance - alert, well appearing, and in no distress and oriented to person, place, and time Mental status - alert, oriented to person, place, and time, normal mood, behavior, speech, dress, motor activity, and thought processes Extremities - right hand- tender to the touch, mildly decreased ROM opening and closing Assessment ASSESSMENT AND PLAN ICD-10-CM ICD-9-CM 1. Right wrist pain M25.531 719.43 NERVE CONDUCTION TEST nabumetone (RELAFEN) 500 mg tablet Rest Elevate Ice Wear brace Okay to take tylenol as needed for pain. documented in this encounter Plan of Treatment Upcoming Encounters Date Type Department Care Team (Late st Contact Info) Description 06/20/2024 9:30 AM TOUR DRIVER Office Visit [facility] Orthopedic Surgery at the [facility] [address] [place] [address] [place] [address] [place] [address] 10/27/2024 2:45 PM CDT Office Visit [facility] Gastroenterology [facility] [address] [place] [address] Bebo Benties MD [address] [place] [address] documented as of this encounter Visit Diagnoses Diagnosis Right wrist pain- Primary Pain in joint, forearm documented in this encounter Care Teams Singer Songwriter Relationship Specialty Start Date End Date Francis Pereyra MD PCP - General Family Practice 02/08/18 12/08/21 documented as of this encounter
--- OUTSIDE RECORDS SUMMARY | 2024-06-08 20:21 | XMS_ITS | Encounter Summary ---
Author Organization [facility] Address [address] [place] [address] Care Team Providers Care Collar Baster Name Role Phone Francis Pereyra MD Primary Care Provider Unava ilable Reason for Visit * Reason Comments Cyst left ear Encounter Details Date Type Department Care Team (Late st Contact Info) Description 01/03/2020 7:30 AM CDT Office Visit [facility] at Work [employer] [place] [address] [place] [address] Tessa Su, MICHAEL [address] [place] [address] Sebaceous cyst (Primary Dx); Dizziness Social History Tobacco Use Types Packs/Day Years [...] Sign Reading Time Taken Comments Blood Pressure 140/88 01/03/2020 7:31 AM CDT Pulse 98 01/03/2020 7:31 AM CDT Temperature 36.9 ??C (98.5 ??F) 01/03/2020 7:31 AM CD T Respiratory Rate 16 01/03/2020 7:31 AM CDT Oxygen Saturation 98% 01/03/2020 7:31 AM CDT Inhaled Oxygen Concentration - - Weight 107 kg (236 lb) 01/03/2020 7:31 AM CDT Height 165.1 cm (5' 5 ) 01/03/2020 7:31 AM CDT Body Mass Index 39.27 01/03/2020 7:31 AM CDT documented in this encounter Progress Notes * Tessa Su, MICHAEL - 01/03/2020 7:28 AM CDT HISTORY OF PRESENT ILLNESS Lis Phelan is a 34 y.o. female who presents for Chief Complaint Patient presents with ??? Cyst left ear Here for evaluation of sebaceous cyst left preauricular- today the cyst is flattened, mildly tender. Pt has had only a few hours of sleep last night and is feeling dizzy, nauseated. Got up quickly andbecome lightheaded lasting a few minutes. [place], denies alcohol use, has been eating and drinking oral fluids. Denies n/v/d. No cough or fevers. Denies dizziness since initialepisode. Past Medical History: Diagnosis Date ??? Arthritis ??? Asthma ??? Biliary dyskinesia ??? Depression ??? Diabetes mellitus ??? Difficult intravenous access VERY hard IV stick use requests ultrasound ??? Eosinophilic esophagitis ??? GERD (gastroesophageal reflux disease) ??? Headache ??? History of shingles ??? Hyperlipidemia Current Outpatient Medications Medication Sig Dispense Refill ??? cetirizine (ZyrTEC) 10 mg tablet Take 10 mg by mouth daily. ??? buPROPion HCL (Wellbutrin XL) 150 mg Extended Release 24 hour tablet Take 1 Tablet (150 mg) by mouth daily payroll auditor. 30 Tablet 0 ??? ALPRAZolam (XANAX) 0.25 mg tablet Take 1 Tablet (0.25 mg) by mouth 2 times daily as needed for Anxiety. 15 Tablet 0 ??? rosuvastatin (CRESTOR) 40 mg tablet Take 40 mg by mouth daily at bedtime. ??? sertraline (ZOLOFT) 100 mg tablet Take 100 mg by mouth daily. ??? albuterol HFA 90 mcg inhaler Take 1-2 Puffs by inhalation every 4 hours as needed for Shortnessof Breath or Wheezing. 6.7 Gram 3 ??? metFORMIN (GLUCOPHAGE) 500 mg tablet 2 times daily. ??? pantoprazole (PROTONIX) 40 mg Tablet, Delayed Release (E.C.) Take 1 Tablet (40 mg) by mouth daily. 60 Tablet 2 ??? etonogestrel (IMPLANON SDRM) by Subdermal route. No current facility-administered medications for this visit. Allergies Allergen Reactions ??? Chantix [Varenicline] Anaphylaxis ??? Metronidazole Nausea and Vomiting Other reaction(s): Vomiting ??? Demerol [Meperidine] Swelling ??? Tramadol Hives BP (!) 140/88 (BP Location: Right arm, Patient Position (BP): Sitting) Pulse 98 Temp 98.5 ??F (36.9 ??C) Resp 16 Ht 5' 5 (1.651 m) Wt 107 kg (236 lb) SpO2 98% BMI 39.27 kg/m?? MEDICAL RECORD UPDATE Past Medical History: [...] HX SURGICAL OTHER 04/2004 adhesion removed ??? SC ESOPHAGOGASTRODUODENOSCOPY TRANSORAL DIAGNOSTIC N/A 05/17/2019 ESOPHAGOGASTRODUODENOSCOPY performed by Jena Cerda MD at [facility] ??? SC REMOVAL GALLBLADDER N/A 11/03/2019 OPEN CHOLECYSTECTOMY performed by Gabbie Wheeler MD at [facility] OR MAIN Family History Problem Relation [...] reviewed and updated in computerized patient record. [facility] [address] [place] [address] Care Providers: Patient Care Team: Francis Pereyra MD as PCP - General (Family Practice) No Patient Care Coordination Note on file. Vital signs/Tobacco use BP (!) 140/88 (BP Location: Right arm, Patient Position (BP): Sitting) Pulse 98 Temp 98.5 ??F (36.9 ??C) Resp 16 Ht 5' 5 (1.651 m) Wt 107 kg (236 lb) SpO2 98% BMI 39.27 kg/m?? Blood Pressure BP Readings from Last 3 Encounters: 01/03/20 (!) 140/88 12/22/19 (!) 142/86 12/06/19 116/84 BMI POC (QM) Body mass index is 39.27 kg/m??. Normal BMI range: 18 & older: > or = 18.5 and < 25 Abnormal high BMI: Patient counseled on lifestyle modifications including weight loss and daily exercise. The 10-year CVD risk score (D'Agostino, et al., 2008) is: 5.6% Values used to calculate the score: Age: 34 years Sex: Female Diabetic: Yes Tobacco smoker: No Systolic Blood Pressure: 140 mmHg Is BP treated: No HDL Cholesterol: 36 mg/dL Total Cholesterol: 193 mg/dL Consider Statins if 10 year risk >7.5-10% Tobacco Use (QM) reports that she quit smoking about 3 years ago. She has a 10.00 pack-year smoking history. She hasnever used smokeless tobacco. She is not a tobacco user. EXAMINATION REVIEW OF SYSTEMS Review of Systems Constitutional: Negative for fever and malaise/fatigue. HENT: Negative for congestion. Respiratory: Negative for cough. Cardiovascular: Negative for chest pain. Gastrointestinal: Negative for constipation, diarrhea, nausea and vomiting. Skin: Lump above and in front of left ear. Neurological: Negative for dizziness. Objective PHYSICAL EXAM Physical Exam Constitutional: Appearance: She is well-developed. HENT: Head: Normocephalic and atraumatic. Nose: Nose normal. Eyes: Conjunctiva/sclera: Conjunctivae normal. Cardiovascular: Rate and Rhythm: Normal rate and regular rhythm. Heart sounds: Normal heart sounds, S1 normal and S2 normal. No murmur. No friction rub. No gallop. Pulmonary: Effort: Pulmonary effort is normal. No respiratory distress. Breath sounds: Normal breath sounds. No wheezing or rales. Skin: General: Skin is warm and dry. Comments: Left pre auricular, superior palpable nodule that is barely raised. Tender to touch. No erythema Neurological: Mental Status: She is alert and oriented to person, place, and time. No results found for any visits on 01/03/20 (from the past 24 hour(s)). ASSESSMENT and PLAN: Lis was seen today for cyst. Diagnoses and all orders for this visit: Sebaceous cyst - Cancel: EXCISE SOFT TISSUE LESION Dizziness Reschedule excision later this week. Warm compresses. Dizziness-enc to rest, increase oral fluids. Transient lasting a few seconds-if recurrent, persistent documented in this encounter Plan of Treatment Upcoming Encounters Date Type Department Care Team (Late st Contact Info) Description 06/20/2024 9:30 AM MESS COOK Office Visit [facility] Orthopedic Surgery at the [facility] Medicine [address] [place] [address] [place] [address] [place] [address] 10/27/2024 2:45 PM CDT Office Visit [facility] Gastroenterology [facility] [address] [place] [address] Bebo Benites MD [address] [place] [address] documented as of this encounter Visit Diagnoses Diagnosis Sebaceous cyst- Primary Dizziness Dizziness and giddiness documented in this encounter Additional Health Concerns Assessment Noted Time PHQ-9 Depression Total Score: 6 08/29/19 20 10:00 AM CDT documented as of this encounter Care Teams Collar Baster Relationship Specialty Start Date End Date Francis Pereyra MD PCP - General Family Practice 02/08/18 12/08/21 documented as of this encounter
--- OUTSIDE RECORDS SUMMARY | 2024-06-08 20:21 | XMS_ITS | Encounter Summary ---
Author Organization [facility] Address [address] [place] [address] Care Team Providers Care Investigator Internal Affairs Name Role Phone Francis Pereyra MD Primary Care Provider Unava ilable Reason for Visit * Reason Onset Date Comments Results 01/16/2021 Encounter Details Date Type Department Care Team (Late st Contact Info) Description 01/16/2021 Telephone [facility] at Work [employer] [place] [address] [place] [address] Francis Pereyra MD NO ADDRESS ON FILE Results Social History Tobacco Use Types Packs/Day Years [...] Telephone Encounter - Henrietta Andrade RN - 01/16/2021 11:30 AM CDT Images from the original note were not included. LM with no pt name giving pt this information. Cheyenne Horton, SHIP CARPENTER Henrietta Andrade, RN CXR is normal. No fracture. Likely a wrist sprain. Rest, ice, elevate Ibuprofen 600 mg TID PRN May wear a brace at work if needed. Should heal up on its own over the next couple of weeks. documented in this encounter Plan of Treatment Upcoming Encounters Date Type Department Care Team (Late st Contact Info) Description 06/20/2024 9:30 AM RADIO DIRECTOR Office Visit [facility] Orthopedic Surgery at the [facility] Medicine [address] [place] [address] [place] [address] [place] [address] 10/27/2024 2:45 PM CDT Office Visit [facility] Gastroenterology [facility] [address] [place] [address] Bebo Benites MD [address] [place] [address] documented as of this encounter Visit Diagnoses Not on filedocumented in this encounter Care Teams Investigator Internal Affairs Relationship Specialty Start Date End Date Francis Pereyra MD PCP - General Family Practice 02/08/18 12/08/21 documented as of this encounter
--- OUTSIDE RECORDS SUMMARY | 2024-06-08 20:21 | XMS_ITS | Encounter Summary ---
Author Organization [facility] Address [address] Attn: [place] [address] Care Team Providers Care Bisque Cleaner Name Role Phone Francis Pereyra MD Primary Care Provider Rishi georges Encounter Details Date Type Department Care Team (Latest Contact Info) Description 07/20/2020 Travel Social History Tobacco Use Types Packs/Day [...] COVID-19? No / Unsure 07/20/2020 1:03 PM APARTMENT LEASING CONSULTANT documented as of this encounter Plan of Treatment Upcoming Encounters Date Type Department Care Team (Late st Contact Info) Description 06/20/2024 9:30 AM APARTMENT LEASING CONSULTANT Office Visit [facility] Orthopedic Surgery at the [facility] Medicine [address] [address] [place] [address] [place] [address] [place] [address] 10/27/2024 2:45 PM CDT Office Visit [facility] Gastroenterology [facility] [address] [place] [address] Bebo Benites MD [address] [address] documented as of this encounter Visit Diagnoses Not on filedocumented in this encounter Additional Health Concerns Assessment Noted Time PHQ-9 Depression Total Score: 3 07/20/19 21 1:00 PM APARTMENT LEASING CONSULTANT documented as of this encounter Care Teams Bisque Cleaner Relationship Specialty Start Date End Date Francis Pereyra MD PCP - General Family Practice 02/08/18 12/08/21 documented as of this encounter
--- OUTSIDE RECORDS SUMMARY | 2024-06-08 20:21 | XMS_ITS | Encounter Summary ---
Author Organization [facility] Address [address] [place] [address] Care Team Providers Care Community Health Nursing Director Name Role Phone Francis Pereyra MD Primary Care Provider Unava ilable Reason for Visit * Reason Onset Date Comments Medication Refill 03/07/2021 Encounter Details Date Type Department Care Team (Late Contact Info) Description 03/07/2021 Refill [facility] at Work [employer] [place] [address] [place] [address] Francis Pereyra MD NO ADDRESS ON FILE Moderate episode of recurrent major depressive disorder; [...] (Late Contact Info) Description 06/20/2024 9:30 AM REGIONAL ENVIRONMENTAL MANAGER Office Visit [facility] Orthopedic Surgery at the [facility] Medicine [address] [facility] [facility] [address] [place] [address] [place] [address] [place] [address] 10/27/2024 2:45 PM CDT Office Visit [facility] Gastroenterology [facility] [address] [facility] [address] [place] [address] Bebo Benites MD [address] [facility] [address] [place] [address] documented as of this encounter Visit Diagnoses Diagnosis Moderate episode of recurrent major depressive disorder Generalized anxiety disorder documented in this encounter Care Teams Community Health Nursing Director Relationship Specialty Start Date End Date Francis Pereyra MD PCP - General Family Practice 02/08/18 12/08/21 documented as of this encounter
--- OUTSIDE RECORDS SUMMARY | 2024-06-08 20:21 | XMS_ITS | Encounter Summary ---
Author Organization [facility] Address [address] [place] [address] Care Team Providers Care Emergency Medical Services Coordinator Name Role Phone Francis Pereyra MD Primary Care Provider Unava ilable Reason for Referral * Outpatient Services (Routine) - Closed Specialty Diagnoses / Procedures Referred By Rodney call Referred To Contact Diagnoses Right wrist pain Procedures NERVE CONDUCTION TEST Lis Nails FNP NO ADDRESS ON FILE Referral ID Status Reason Start Date Expiration Date Visits Re quested Visits Authorized [id number] Closed 03/08/2021 04/08/2022 1 1 Reason for Visit * Reason Onset Date Comments Needs Orders Written 03/08/2021 Encounter Details Date Type Department Care Team (Late st Contact Info) Description 03/08/2021 Telephone [facility] at [facility] [employer] [address] [place] [address] Lis Nails FNP NO ADDRESS ON FILE Needs Orders Written Social History Tobacco Use Types Packs/Day Years [...] Telephone Encounter - Henrietta Andrade RN - 03/08/2021 1:24 PM CDT Pt called stating she scheduled her nerve conduction test at [facility] because they can get her in soonerthan anywhere else. Pt states [facility] told her the order needs to specify location for the testing, right upper extremity. New order placed with this information in the comments section documented in this encounter Plan of Treatment Upcoming Encounters Date Type Department Care Team (Late st Contact Info) Description 06/20/2024 9:30 AM SAND MIXER MACHINE Office Visit [facility] Orthopedic Surgery at the [facility] [address] [facility] [address] [place] [address] [place] [address] [place] [address] 10/27/2024 2:45 PM CDT Office Visit [facility] Gastroenterology [facility] [address] [place] [address] Bebo Benites MD [address] [place] [address] documented as of this encounter Results * NERVE CONDUCTION TEST (04/04/2021) Lis [facility] DE[facility]ARTINEZ [facility] CLIA# [id number] [address] [place] [id number] documented in this encounter Visit Diagnoses Diagnosis Right wrist pain- Primary Pain in joint, forearm Acute pain of right wrist documented in this encounter Care Teams Emergency Medical Services Coordinator Relationship Specialty Start Date End Date Francis Pereyra MD PCP - General Family Practice 02/08/18 12/08/21 documented as of this encounter
--- OUTSIDE RECORDS SUMMARY | 2024-06-08 20:21 | XMS_ITS | Encounter Summary ---
Author Organization [facility] Address [address] [place] [address] Care Team Providers Care Conductor/Brakeman Name Role Phone Francis Pereyra MD Primary Care Provider Unava ilable Reason for Visit * Reason Onset Date Comments Medication Refill 04/29/2021 Encounter Details Date Type Department Care Team (Late Contact Info) Description 04/29/2021 Refill [facility] at [facility] [employer] [place] [address] [place] [address] Francis Pereyra MD NO ADDRESS ON FILE Right wrist pain Social History Tobacco Use Types Packs/Day [...] (Late Contact Info) Description 06/20/2024 9:30 AM WETLAND SCIENTIST Office Visit [facility] Orthopedic Surgery at the [facility] Medicine [address] [facility] [address] [place] [address] [place] [address] [place] [address] 10/27/2024 2:45 PM CDT Office Visit [facility] Gastroenterology [facility] [address] [place] [address] Bebo Benites MD [address] [place] [address] documented as of this encounter Visit Diagnoses Diagnosis Right wrist pain Pain in joint, forearm documented in this encounter Care Teams Conductor/Brakeman Relationship Specialty Start Date End Date Francis Pereyra MD PCP - General Family Practice 02/08/18 12/08/21 documented as of this encounter
--- OUTSIDE RECORDS SUMMARY | 2024-06-08 20:21 | XMS_ITS | Encounter Summary ---
Author Organization [facility] Address [address] [facility] Attn: [place] [address] Care Team Providers Care Senior Materials Scientist Name Role Phone Francis Pereyra MD Primary Care Provider Rishi georges Encounter Details Date Type Department Care Team (Latest Contact Info) Description 03/07/2021 Travel Social History Tobacco Use Types Packs/Day [...] st Contact Info) Description 06/20/2024 9:30 AM AUTOMOTIVE ACCESSORY INSTALLER Office Visit [facility] Orthopedic Surgery at the [facility] Medicine [address] [facility] [facility] [address] [place] [address] [place] [address] [place] [address] 10/27/2024 2:45 PM CDT Office Visit [facility] Gastroenterology [facility] [address] [place] [address] Bebo Benites MD [address] [address] documented as of this encounter Visit Diagnoses Not on filedocumented in this encounter Care Teams Senior Materials Scientist Relationship Specialty Start Date End Date Francis Pereyra MD PCP - General Family Practice 02/08/18 12/08/21 documented as of this encounter
--- OUTSIDE RECORDS SUMMARY | 2024-06-08 20:21 | XMS_ITS | Encounter Summary ---
Author Organization [facility] Address [address] [place] [address] Care Team Providers Care Senior Licensing Manager Name Role Phone Francis Pereyra MD Primary Care Provider Unava ilable Reason for Visit * Reason Comments Medication Refill Encounter Details Date Type Department Care Team (Latest Contact Info) Description 06/07/2021 11:00 AM SANDWICH BOARD CARRIER Procedure visit [facility] at Work [employer] [place] [address] [place] [address] Encounter for issue of repeat [...] COVID-19? No / Unsure 06/06/2021 3:14 PM SANDWICH BOARD CARRIER documented as of this encounter Progress Notes * Henrietta Andrade, SATURNINO - 06/07/2021 11:06 AM CST Bupropion 150mg QD #90 Refill 1 of 2. Metformin 500mg BID #180 No refills. Pt states she was instructed to increase bupropion to 150mg BID. Pt's medication list did not reflect this change so bupropion was filled as 150mg QD. WICH BOARD CARRIER documented in this encounter Plan of Treatment Upcoming Encounters Date Type Department Care Team (Late st Contact Info) Description 06/20/2024 9:30 AM SANDWICH BOARD CARRIER Office Visit [facility] Orthopedic Surgery at the [facility] [address] [facility] [place] [address] [place] [address] [place] [address] 10/27/2024 2:45 PM CDT Office Visit [facility] Gastroenterology [facility] [address] [facility] [address] [facility] [address] [place] [address] Bebo Benites MD [address] [facility] [address] [place] [address] documented as of this encounter Visit Diagnoses Diagnosis Encounter for issue of repeat prescription- Primary Issue of repeat prescriptions documented in this encounter Care Teams Senior Licensing Manager Relationship Specialty Start Date End Date Francis Pereyra MD PCP - General Family Practice 02/08/18 12/08/21 documented as of this encounter
--- OUTSIDE RECORDS SUMMARY | 2024-06-08 20:21 | XMS_ITS | Encounter Summary ---
Author Organization [facility] Address [address] [place] [address] Care Team Providers Care Podiatric Aide Name Role Phone Francis Pereyra MD Primary Care Provider Rishi georges Encounter Details Date Type Department Care Team (Late st Contact Info) Description 05/10/2021 Chart Note [facility] Orthopedic Surgery - [place] [address] [place] [address] [address] [place] [address] [place] [id number] [place] [address] [place] [address] Social History Tobacco Use Types [...] COVID-19? No / Unsure 06/07/2021 3:21 PM ELECTRONIC CALIBRATION TECHNICIAN documented as of this encounter Progress Notes * Huseyin Navas ATC - 06/10/2021 3:53 PM CST Spoke to pt to confirm surgery on 06/11/2021 at [facility] and to arrive at 7 am. Huseyin TRONIC CALIBRATION TECHNICIAN * Maggie Hudson - 05/28/2021 10:43 AM CST Surgery Location & Date: [facility] 06/11/2021 Medical Clearance Sent: not requested per surgeon Cardiac Clearance Sent: not requested per surgeon Pre op labs, EKG, xray: pt aware needs COVID TEST PACE appt made: pt to call CPT: 83649 Surgery Packet Given: emailed Comments: [email or web address] TRONIC CALIBRATION TECHNICIAN * Conner Bustamante ATC - 05/27/2021 12:53 PM CST Incoming call from patient inquiring on getting her surgery scheduled. Requesting a call back. TRONIC CALIBRATION TECHNICIAN * Paddy Mackey MD - 05/10/2021 9:54 AM CST Pre-Op Scheduling Form Lis Phelan Admitting Physician: Paddy Mackey MD [x] Outpatient [] 23 Hour Observation [] Inpatient Location: [] [facility] OR [x] [place] [] [facility] OR Is a child and youth program assistant needed: [x] Yes [] No Anesthesia Request: [] General [] Block [] IV Regional [x] MAC / Local [] Local [] Admitting Diagnosis: Right Carpal Tunnel Syndrome Surgical Procedure(s) for Consent (I.e. consent should read the following): Right Open Carpal Tunnel Release CPT Codes for Surgical Procedures: Neuroplasty and/or transposition; median nerve at carpal tunnel (17575) SPECIAL EQUIPMENT NEEDS or IMPLANTS: No antibiotics, supine, 10 cc of one-to-one mixture 1% lidocaine and 0.25% Marcaine with epinephrine, regular or table, hand table, hand tray, 4-0 nylon, Xeroform, 4 x 4, 2 inch Coban (also needs be entered into the case request comment sections) Requested Pre Operative Tests [] EKG [] Chest X-Ray [] UA [] CBC [] CMP [] Type / Cross Procedure Duration (minute): 45 Minutes Follow Up Appointment: 10 days Medical Clearance: [] PCP [] Cardiac [] [facility] TRONIC CALIBRATION TECHNICIAN documented in this encounter Plan of Treatment Upcoming Encounters Date Type Department Care Team (Late st Contact Info) Description 06/20/2024 9:30 AM ELECTRONIC CALIBRATION TECHNICIAN Office Visit [facility] Orthopedic Surgery at the [facility] [address] [facility] [address] [place] [phone] [place] [address] [place] [address] 10/27/2024 2:45 PM CDT Office Visit [facility] Gastroenterology [facility] [address] [facility] [address] [place] [address] Bebo Benites MD [address] [facility] [address] [place] [address] documented as of this encounter Visit Diagnoses Not on filedocumented in this encounter Care Teams Podiatric Aide Relationship Specialty Start Date End Date Francis Pereyra MD PCP - General Family Practice 02/08/18 12/08/21 documented as of this encounter
--- OUTSIDE RECORDS SUMMARY | 2024-06-08 20:21 | XMS_ITS | Encounter Summary ---
Author Organization [facility] Address [address] [place] [address] Care Team Providers Care Emergency Department Clinician Name Role Phone Francis Pereyra MD Primary Care Provider Unava ilable Reason for Visit * Auth/Cert Specialty Diagnoses / Procedures Referred By Rodney call Referred To Contact Diagnoses Right Carpal Tunnel Syndrome Procedures MD [facility] N/[place] [address] [place] [address] Referral ID Status Reason Start Date Expiration Date Visits Re quested Visits Authorized [id number] 05/28/2021 1 1 Encounter Details Date Type Department Care Team (Latest Contact Info) Description 06/11/2021 6:49 AM CONSTRUCTION ESTIMATOR - 06/11/2021 10:21 AM [facility] Hospital Encounter [facility] SURGERY [place] [address] [place] [address] [place] [address] [place] [address] Discharge Disposition: Home or Self Care Social [...] COVID-19? No / Unsure 06/11/2021 6:50 AM CONSTRUCTION ESTIMATOR documented as of this encounter Last Filed Vital Signs Vital Sign Reading Time Taken Comments Blood Pressure 160/81 06/11/2021 10:05 AM CONSTRUCTION ESTIMATOR Pulse 86 06/11/2021 10:05 AM CONSTRUCTION ESTIMATOR Temperature 36.2 ??C (97.2 ??F) 06/11/2021 9:33 AM CS T Respiratory Rate 17 06/11/2021 10:05 AM CONSTRUCTION ESTIMATOR Oxygen Saturation 97% 06/11/2021 10:05 AM CONSTRUCTION ESTIMATOR Inhaled Oxygen Concentration - - Weight 112.5 kg (248 lb) 06/11/2021 7:31 AM CONSTRUCTION ESTIMATOR Height 167.6 cm (5' 6 ) 06/11/2021 7:31 AM CONSTRUCTION ESTIMATOR Body Mass Index 40.03 06/11/2021 7:31 AM CONSTRUCTION ESTIMATOR documented in this encounter Discharge Instructions * Discharge Instructions* Paddy Mackey MD - 06/11/2021 9:06 AM CONSTRUCTION ESTIMATOR 1. Begin active motion of your fingers [...] surgeon or your surgeon's nurse or medical office administrator if you have any questions about your [...] (Mon-Fri 8am-4:30pm) o Dr. Mackey's Office: phone: [phone] ??? After hours/weekend (Emergencies Only; no medication refills) o [facility] Medical Exchange: [phone] Orthopedic Hand Service Perioperative Narcotic Considerations The Orthopedic hand surgeons of [facility] manage perioperative pain as well as the pain after an acute injury. Our surgeons do not manage chronic pain (pain three months after the injury/surgery), and will refer patients seeking longer term care for their painful condition to a pain management service or their primary physician as those physicians typically establish manager intermediate treatment relationships with patients. Following elective hand [...] be called in to your pharmacy if 'weex-vwj-dawmpvr' anti- inflammatory pain medication do not decrease the pain even when taken on a regular basis. These can be called in during the hours 9am to 4pm, during the workweek. ??? 'Alternative' treatments such as acupuncture, meditation and biofeedback can all be used to decrease post-operative pain. The Orthopedic hand surgeons of [facility] want you to be as comfortable [...] interpretation of pain. The 'opioid epidemic' in [place] is very real, and we as physicians [...] your surgeon or his/her nurse or MA. TRUCTION ESTIMATOR documented in this encounter Medications at Time [...] 07/20/2020 08/23/2021 fluticasone propionate (FLONASE) 50 mcg/spray [place], Suspension nasal inhalerIndications:ETD (Eustachian tube dysfunction), right [...] and long fingers. She rates this pain 12/29. ?? She does note nocturnal awakening. She [...] results to the patient/family/caregiver (not separately reported). TRUCTION ESTIMATOR documented in this encounter OR Notes * Operative Report - Paddy Mackey MD - 06/11/2021 9:30 AM CST Pre-op Diagnosis: right carpal tunnel syndrome Post-op Diagnosis: right carpal tunnel syndrome Procedure: right open carpal tunnel release (CPT: 13891) Surgeon: Paddy Mackey MD Anesthesia: MAC + [...] and the patient tolerated the procedure well. TRUCTION ESTIMATOR documented in this encounter Plan of Treatment Upcoming Encounters Date Type Department Care Team (Late st Contact Info) Description 06/20/2024 9:30 AM CONSTRUCTION ESTIMATOR Office Visit [facility] Orthopedic Surgery at the [facility] [address] [facility] [address] [place] [address] [place] [address] [place] [address] 10/27/2024 2:45 PM CDT Office Visit [facility] Gastroenterology [facility] [address] [facility] [address] [place] [address] Bebo Benites MD [address] [address] documented as of this encounter Procedures Procedure Name Priority Date/Time Associated Diagnosis Comments CARPAL TUNNEL RELEASE 06/11/2021 8:28 AM CONSTRUCTION ESTIMATOR Right Carpal Tunnel Syndrome POC , URINE Routine 06/11/2021 7:30 AM CONSTRUCTION ESTIMATOR POC GLUCOSE Routine 06/11/2021 7:25 AM CONSTRUCTION ESTIMATOR documented in this encounter Results * POC , URINE (06/11/2021 7:30 AM CONSTRUCTION ESTIMATOR) HCG QUAL URINE Negative Negative 06/11/2021 7:30 AM CONSTRUCTION ESTIMATOR [facility] MULTI SITE/OPS [place] Urine 06/11/2021 7:30 AM CONSTRUCTION ESTIMATOR 06/11/2021 12:51 PM CONSTRUCTION ESTIMATOR Paddy Mackey MD POINT OF CARE TESTKIM Keen Performing Organization Address City/[facility]/ZIP Co de Phone Number [facility] MULTI S[facility] [place] CLIA # [id number] [place] [address] * (ABNORMAL) POC GLUCOSE (06/11/2021 7:25 AM CONSTRUCTION ESTIMATOR) GLUCOSE POC 129(H) 74 - 99 mg/dL 06/11/2021 7:25 AM CONSTRUCTION ESTIMATOR [facility] MULTI S[facility]/OPS [place] SPECIMEN SOURCE, GLUCOSE POC Whole Blood 06/11/2021 7:25 AM CONSTRUCTION ESTIMATOR [facility] MULTI S[facility]/OPS [place] Blood, whole 06/11/2021 7:25 AM CONSTRUCTION ESTIMATOR 06/11/2021 7:54 AM CONSTRUCTION ESTIMATOR Paddy Mackey MD POINT OF CARE TESTKIM Keen [facility]I S[facility] [place] CLIA # [id number] [place] [address] * 2019 NOVEL CORONAVIRUS (COVID-19) PCR DETECTION (06/06/2021 3:14 PM CONSTRUCTION ESTIMATOR) COVID-19 PCR NOT DETECTED Not Detected 06/07/20 1:19 AM CONSTRUCTION ESTIMATOR [facility] PERFORMING LAB [facility] 06/07/2021 1:19 AM CONSTRUCTION ESTIMATOR [facility] Upper Respiratory ANTERIOR NARES SWAB / Unknown Collection / Unknown 06/06/2021 3:14 PM CONSTRUCTION ESTIMATOR 06/06/2021 7:18 PM CONSTRUCTION ESTIMATOR [facility] - 06/07/2021 1:19 AM CONSTRUCTION ESTIMATOR This test has been authorized by the [...] 2019-Novel Coronavirus. Paddy Mackey MD MICROBIOLOGY - [facility] ORDERABLES [facility]# [id number] [facility] [place] [id number] documented in this encounter Visit Diagnoses Diagnosis Right carpal tunnel syndrome- Primary Carpal tunnel syndrome Preop testing Preoperative examination, unspecified Pre-op testing Preoperative examination, unspecified documented in this encounter Administered Medications Inactive Administered Medications - up to 3 most recent administrations Medication Order MAR Action Action Date Dose Rate Site acetaminophen (TYLENOL) tablet 650 mg 650 mg, Oral, ONE TIME ONLY, 1 dose, On Thu06/11/21 at 0730, Stat, Pre-op Given 06/11/2021 7:54 AM CONSTRUCTION ESTIMATOR 650 mg bupivacaine PF (SENSORCAINE MPF) 2.5 mg/mL (0.25%) 12.5 mg, lidocaine PF 1% (XYLOCAINE MPF) 5 mL INJECTION See Admin Instructions, INTRA-PROCEDURE PRN, Starting on Thu06/11/21 at 0828, Until Thu06/11/21 at 1221, Other (See Comment), local, Routine, Pre-op Given 06/11/2021 9:03 AM CONSTRUCTION ESTIMATOR 8 mL Operative Site diphenhydrAMINE (BENADRYL) injection [...] on Thu06/11/21 at 0656, Until Thu06/11/21 at 122, Pain, Routine, PACU lactated ringers infusion IV, at 150 mL/hr, PRE-PROCEDURE CONTINUOUS, Starting on Thu06/11/21 at 0730, Until Thu06/11/21 at 1221, Routine, Pre-op Restarted 06/11/2021 9:29 AM CONSTRUCTION ESTIMATOR Continue from Pre-Op 06/11/2021 8:52 AM CONSTRUCTION ESTIMATOR 150 mL/hr New Bag 06/11/2021 7:52 AM CONSTRUCTION ESTIMATOR 150 mL/hr lactated ringers infusion IV, at [...] Recently Administered Medications Times are shown in CONSTRUCTION ESTIMATOR. Scheduled Medication Order 06/09/2021 06/10/2021 06/11/2021 acetaminophen [...] Switch to gravity)0929 (Restarted - Provider: Celsa Fonseca CRNA) lactated ringers infusion IV, at 30 [...] PACU documented in this encounter Care Teams Emergency Department Clinician Relationship Specialty Start Date End Date Francis Pereyra MD PCP - General Family Practice 02/08/18 12/08/21 documented as of this encounter
--- OUTSIDE RECORDS SUMMARY | 2024-06-08 20:21 | XMS_ITS | Encounter Summary ---
Author Organization [facility] Address [address] [place] [address] Care Team Providers Care Videogame Tester Name Role Phone Francis Pereyra MD Primary Care Provider Unava ilable Reason for Visit * Reason Comments Hand Pain Encounter Details Date Type Department Care Team (Late st Contact Info) Description 01/15/2021 8:00 AM CDT Video Visit [facility] at Work [employer] [place] [address] [place] [address] Cheyenne Horton, PHARMACY SALES REPRESENTATIVE [address] [address] Acute pain of right wrist (Primary Dx) Social History Tobacco Use Types [...] as of this encounter Progress Notes * Cheyenne Horton PHARMACY SALES REPRESENTATIVE - 01/15/2021 8:09 AM CDT This encounter was completed via audio-only two way synchronous communication. Patient's identity confirmed yes Patient gave verbal consent to have these services billed to their insurance and expressed understanding that co-insurance and deductible may apply: yes Time spent by the provider delivering the care documented in this encounter 20 minutes. HISTORY OF PRESENT ILLNESS Lis Phelan, a 35 y.o. female presents with a Chief Complaint of Hand Pain Subjective Pt requests virtual visit today to discuss new symptom of wrist pain. Pain started over this past month after falling 3 times. Most recent fall was Thursday.Pt catches herself with the wrist. Pain is in the base of her right hand. Pt has full ROM, but it is painful with movement. Pt is right-handed. She able to do her job but it hurts. She does take OTC with minimal temporary improvement in symptoms. The history is provided by the patient. Hand Pain REVIEW OF SYSTEMS Review of Systems Constitutional: Negative. HENT: Negative. Respiratory: Negative. Cardiovascular: Negative. Gastrointestinal: Negative. Genitourinary: Negative. Musculoskeletal: Wrist pain Skin: Negative. Neurological: Negative. Objective PHYSICAL EXAM There were no vitals taken for this visit. Physical Exam Physical exam deferred- telephone visit NAD Procedures N/A Assessment ASSESSMENT and PLAN: ICD-10-CM ICD-9-CM 1. Acute pain of right wrist Avoid heavy lifting, pushing, and pulling. Ice, rest. Ibuprofen 600 mg TID. X- ray to r/o fracture. Will call with results. Call clinic for persistent or worsening symptoms. M25.531 719.43 XR WRIST 3+VW RIGHT documented in this encounter Plan of Treatment Upcoming Encounters Date Type Department Care Team (Late st Contact Info) Description 06/20/2024 9:30 AM TALENT BUYER Office Visit [facility] Orthopedic Surgery at the [facility] Medicine [address] [place] [address] [place] [address] [place] [address] 10/27/2024 2:45 PM CDT Office Visit [facility] Gastroenterology [facility] [address] [facility] [facility] [address] [place] [address] Bebo Benites MD [address] [address] Scheduled Orders Name Type Priority Associated Diagnoses Orde r Schedule XR WRIST 3+ VW RIGHT Imaging Routine Acute pain of right wrist 1 Occurrences starting 01/15/2021 until 01/15/2022 documented as of this encounter Visit Diagnoses Diagnosis Acute pain of right wrist- Primary documented in this encounter Care Teams Videogame Tester Relationship Specialty Start Date End Date Francis Pereyra MD PCP - General Family Practice 02/08/18 12/08/21 documented as of this encounter
--- OUTSIDE RECORDS SUMMARY | 2024-06-08 20:21 | XMS_ITS | Encounter Summary ---
Author Organization [facility] Address [address] [place] [address] Care Team Providers Care Reclamation Supervisor Name Role Phone Francis Pereyra MD Primary Care Provider Unava ilable Reason for Visit * Reason Comments Post-op Visit Encounter Details Date Type Department Care Team (Latest Contact Info) Description 12/22/2019 10:15 AM CDT Office Visit [facility] Trauma and General Surgery [address] [place] [address] Lorna Fontenot MD [address] [place] [address] Postoperative visit (Primary Dx); Acute calculous cholecystitis Social History Tobacco Use Types Packs/Day Years [...] have Coronavirus / COVID-19? No / Unsure 12/22/2019 10:27 AM CDT documented as of this encounter Last Filed Vital Signs Vital Sign Reading Time Taken Comments Blood Pressure 142/86 12/22/2019 10:29 AM CDT Pulse - - Temperature - - Respiratory Rate - - Oxygen Saturation - - Inhaled Oxygen Concentration - - Weight 98.4 kg (217 lb) 12/22/2019 10:29 AM CDT Height 165.1 cm (5' 5 ) 12/22/2019 10:29 AM CDT Body Mass Index 36.11 12/22/2019 10:29 AM CDT documented in this encounter Progress Notes * Lorna Fontenot MD - 12/22/2019 10:32 AM CDT Pt is here for a post op visit. S/p Open cholecystectomy on 11/03/[address] Wheeler. She also underwent a small bowel resection during this operation. She states that she has some pain in her abdomen at the end of the day. She feels like it is from using her abdominal muscles. She takes Tylenol PRN.No nausea, vomiting or fevers. Bowels normal. She states that she does get this weird feeling when she is eating and after she eats. She states that sometimes she will just stop eating. ?? Trauma and General Surgery Clinic: 12/26/2019 Lis Phelan 1985 [id number] HPI: 34 y.o. female presents for follow-up s/p open cholecystectomy with Dr. Wheeler. She is recovering well following surgery but continues to have some difficulty with eating large meals. She tolerates a regular diet without nausea or vomiting. When she eats more, she feels a sense of fullness and pain in her right upper quadrant/epigastric region. Wound appears to be healing well with scar retraction at the site. Patient History: Social, family and past medical history reviewed as well as pertinent labs and imaging in the development of my assessment and plan. Patient Active Problem List Diagnosis Code ??? Mild intermittent asthma without complication J45.20 ??? Recurrent major depressive disorder, in partial remission F33.41 ??? Type 2 diabetes mellitus without complication, without long-term current use of insulin E11.9 ??? Hyperlipidemia E78.5 ??? Morbid obesity with body mass index of 40.0-49.9 E66.01 ??? Dysphagia R13.10 ??? Microalbuminuria R80.9 ??? Acute calculous cholecystitis K80.00 ??? History of gastroschisis Z87.738 ??? Ileus K56.7 ??? Herpes simplex type 2 infection B00.9 ??? Asthma J45.909 ??? Irregular periods N92.6 TOBACCO COUNSELING She is not a tobacco user. ROS: Remainder of 10 point review negative, other than indicated above and in HPI. Exam: Blood pressure (!) 142/86, height 5' 5 (1.651 m), weight 98.4 kg (217 lb), not currently . Gen: Adult female, A&Ox3, NAD HEENT: normocephalic, non-icteric sclerae CV: RRR, no MRG Lungs: grossly clear, symmetric, CTAB Abdomen: Soft, NT, ND, +Bss Incisions: Right upper quadrant subcostal incision is healing well, retraction of the scar at that site without induration, erythema, tenderness. Ext: Warm, no edema, good pulses All pertinent labs and imaging reviewed. A/P: Lis Phelan is a 34 y.o. female status post open cholecystectomy. Patient is recovering well but having some limitations in the volume of her eating a daily basis. She denies any weight loss,nausea, vomiting. She is otherwise doing well. ??? F/U with Trauma/Gen Surg clinic PRN I certify that I have independently seen and examined this patient reviewed the patient's clinical information including all relevant labs, imaging, and history. I have spent no less than 35 minutes involved in the care and evaluation of the patient; >50% ofthis time was spent in counseling and/or coordination of care for this patient. Lorna Fontenot MD - Trauma and General Surgery - Pager: [phone] *If unable to reach me, please call the office machine punch operator and ask for the On-Call Trauma Surgeon* documented in this encounter Plan of Treatment Upcoming Encounters Date Type Department Care Team (Late st Contact Info) Description 06/20/2024 9:30 AM PATIENT TRANSPORTATION DRIVER Office Visit [facility] Orthopedic Surgery at the [facility] [address] [place] [phone] [place] [address] [place] [address] 10/27/2024 2:45 PM CDT Office Visit [facility] Gastroenterology [facility] [address] [place] [address] Bebo Benites MD [address] [place] [address] documented as of this encounter Visit Diagnoses Diagnosis Postoperative visit- Primary Acute calculous cholecystitis Calculus of gallbladder with acute cholecystitis, without mention of obstruction documented in this encounter Additional Health Concerns Assessment Noted Time PHQ-9 Depression Total Score: 6 08/29/19 20 10:00 AM CDT documented as of this encounter Care Teams Reclamation Supervisor Relationship Specialty Start Date End Date Francis Pereyra MD PCP - General Family Practice 02/08/18 12/08/21 documented as of this encounter
--- OUTSIDE RECORDS SUMMARY | 2024-06-08 20:21 | XMS_ITS | Encounter Summary ---
Author Organization [facility] Address [address] [place] [address] Care Team Providers Care Intern Name Role Phone Francis Pereyra MD Primary Care Provider Unava ilable Reason for Visit * Reason Onset Date Comments Medication Refill 06/07/2021 Encounter Details Date Type Department Care Team (Late st Contact Info) Description 06/07/2021 Refill [facility] [employer] [place] [address] [place] [address] Francis Pereyra MD NO ADDRESS ON FILE Social History Tobacco [...] COVID-19? No / Unsure 06/06/2021 3:14 PM PHYSICIAN CHIEF OF PATHOLOGY documented as of this encounter Miscellaneous Notes * Telephone Encounter - Kim Chavez - 06/07/2021 10:47 AM CST Pt called for a refill of bupropion, per Dr Pereyra on 04/22/2021 pt is to increase to 300mg daily. Fixing script ICIAN CHIEF OF PATHOLOGY documented in this encounter Plan of Treatment Upcoming Encounters Date Type Department Care Team (Late st Contact Info) Description 06/20/2024 9:30 AM PHYSICIAN CHIEF OF PATHOLOGY Office Visit [facility] [place] [facility] Orthopedic Surgery at the [facility] [address] [place] [address] [place] [address] [place] [address] 10/27/2024 2:45 PM CDT Office Visit [facility] [place] G[facility] [address] [place] [address] Bebo Benites MD [address] [place] [address] documented as of this encounter Visit Diagnoses Not on filedocumented in this encounter Care Teams Intern Relationship Specialty Start Date End Date Francis Pereyra MD PCP - General Family Practice 02/08/18 12/08/21 documented as of this encounter
--- OUTSIDE RECORDS SUMMARY | 2024-06-08 20:21 | XMS_ITS | Encounter Summary ---
Author Organization [facility] Address [address] [place] [address] Care Team Providers Care Rack Carrier Name Role Phone Francis Pereyra MD Primary Care Provider Rishi georges Encounter Details Date Type Department Care Team (Late Contact Info) Description 11/11/2019 Orders Only [facility] at [facility] [place] [address] [place] [address] Tessa Su, STEM TEACHER [address] [place] [address] Social History Tobacco Use Types Packs/Day Years [...] have Coronavirus / COVID-19? No / Unsure 11/11/2019 8:20 AM CDT documented as of this encounter Plan of Treatment Upcoming Encounters Date Type Department Care Team (Late st Contact Info) Description 06/20/2024 9:30 AM RESOURCE DEVELOPMENT DIRECTOR Office Visit [facility] Orthopedic Surgery at the [facility] Medicine [address] [place] [address] [place] [address] [place] [address] 10/27/2024 2:45 PM CDT Office Visit [facility] Gastroenterology [facility] [address] [place] [address] Bebo Benites MD [address] [facility] [address] [place] [address] documented as of this encounter Visit Diagnoses Not on filedocumented in this encounter Additional Health Concerns Assessment Noted Time PHQ-9 Depression Total Score: 6 08/29/19 20 10:00 AM CDT documented as of this encounter Care Teams Rack Carrier Relationship Specialty Start Date End Date Francis Pereyra MD PCP - General Family Practice 02/08/18 12/08/21 documented as of this encounter
--- OUTSIDE RECORDS SUMMARY | 2024-06-08 20:21 | XMS_ITS | Encounter Summary ---
Author Organization [facility] Address [address] [place] [address] Care Team Providers Care Dobby Looms Pegger Name Role Phone Francis Pereyra MD Primary Care Provider Unava ilable Reason for Visit * Reason Comments Cyst Encounter Details Date Type Department Care Team (Late st Contact Info) Description 01/06/2020 7:30 AM CDT Office Visit [facility] at [facility] [employer] [place] [address] [place] [address] Tessa Su, MICHAEL [address] [place] [address] Vertigo (Primary Dx); Moderate episode of recurrent major depressive disorder; Generalized anxiety disorder; Blood pressure elevated without history of HTN; ETD (Eustachian tube dysfunction), right; Type 2 diabetes mellitus without complication, without [...] Sign Reading Time Taken Comments Blood Pressure 138/100 01/06/2020 8:02 AM CDT Pulse 94 01/06/2020 7:35 AM CDT Temperature 36.8 ??C (98.3 ??F) 01/06/2020 7:35 AM CD T Respiratory Rate 16 01/06/2020 7:35 AM CDT Oxygen Saturation 98% 01/06/2020 7:35 AM CDT Inhaled Oxygen Concentration - - Weight 107 kg (236 lb) 01/06/2020 7:35 AM CDT Height 165.1 cm (5' 5 ) 01/06/2020 7:35 AM CDT Body Mass Index 39.27 01/06/2020 7:35 AM CDT documented in this encounter Progress Notes * Tessa Su, DISTRICT PLANT ENGINEER - 01/06/2020 8:21 AM CDT HISTORY OF PRESENT ILLNESS Lis Phelan is a 34 y.o. female who presents for Chief Complaint Patient presents with ??? Cyst Cyst is not inflamed today to left auricular area. Would like to discuss dizziness. Had sudden onset 4 days ago, worse with head turning but is it is persisting. Room spinning sensation with head turning side to side, up and down. Lasts 15-20 sec then resolves. Feels funny pressure feeling to frontal area of her head. Takes Zyrtec daily for AR. Allergies have been as usual with mild runny nose, congestion. BP has been elevated last few visits. States her BP elevates when she gets to work due to stress. Past Medical History: Diagnosis Date ??? 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 90 Tablet 4 ??? fluticasone propionate (FLONASE) 50 mcg/spray [place], Suspension nasal inhaler Use 2 sprays eachnostril twice a day for 7-10 days 16 Gram 0 ??? meclizine (ANTIVERT) 25 mg tablet Take 1 Tablet (25 mg) by mouth 3 times daily as needed for Dizziness. 30 Tablet 0 ??? pantoprazole (PROTONIX) 40 mg Tablet, [...] mg by mouth daily at bedtime. ??? albuterol HFA 90 mcg inhaler Take 1-2 Puffs by inhalation every 4 hours as needed for Shortnessof Breath or Wheezing. 6.7 Gram 3 ??? etonogestrel (IMPLANON SDRM) by Subdermal route. ??? [DISCONTINUED] buPROPion HCL (Wellbutrin XL) 150 mg Extended Release 24 hour tablet Take 1 Tablet (150 mg) by mouth daily marine meteorologist. 30 Tablet 0 ??? [DISCONTINUED] sertraline (ZOLOFT) 100 mg tablet Take 100 mg by mouth daily. ??? [DISCONTINUED] metFORMIN (GLUCOPHAGE) 500 mg tablet 2 times daily. ??? [DISCONTINUED] pantoprazole (PROTONIX) 40 mg Tablet, Delayed Release (E.C.) Take 1 Tablet (40 mg) by mouth daily. 60 Tablet 2 No current facility-administered medications for this visit. Allergies Allergen Reactions ??? Chantix [Varenicline] Anaphylaxis ??? Metronidazole Nausea and Vomiting Other reaction(s): Vomiting ??? Demerol [Meperidine] Swelling ??? Tramadol Hives BP (!) 138/100 (BP Location: Left arm, Patient Position (BP): Sitting, BP Cuff Size: Large Adult) Pulse 94 Temp 98.3 ??F (36.8 ??C) (Tympanic) Resp 16 Ht 5' 5 (1.651 m) [...] HX SURGICAL OTHER 04/2004 adhesion removed ??? MD ESOPHAGOGASTRODUODENOSCOPY TRANSORAL DIAGNOSTIC N/A 05/17/2019 ESOPHAGOGASTRODUODENOSCOPY performed by Jena Cerda MD at [facility] GI LAB ??? MD REMOVAL GALLBLADDER N/A 11/03/2019 OPEN CHOLECYSTECTOMY performed by Gabbie Wheeler MD at [facility] OR MAIN Family History Problem [...] reviewed and updated in computerized patient record. [address] Care Providers: Patient Care Team: Francis Pereyra MD as PCP - General (Family Practice) No Patient Care Coordination Note on file. Vital signs/Tobacco use BP (!) 138/100 (BP Location: Left arm, Patient Position (BP): Sitting, BP Cuff Size: Large Adult) Pulse 94 Temp 98.3 ??F (36.8 ??C) (Tympanic) Resp 16 Ht 5' 5 (1.651 m) Wt 107 kg (236 lb) SpO2 98% BMI 39.27 kg/m?? Blood Pressure BP Readings from Last 3 Encounters: 01/06/20 (!) 138/100 01/03/20 (!) 140/88 12/22/19 (!) 142/86 BMI POC (QM) Body mass index is 39.27 kg/m??. Normal BMI range: 18 & older: > or = 18.5 and < 25 Abnormal high BMI: Patient counseled on lifestyle modifications including weight loss and daily exercise. The 10-year CVD risk score (Tay'Agoino, et al., 2008) is: 5.4% Values used to calculate the score: Age: 34 years Sex: Female Diabetic: Yes Tobacco smoker: No Systolic Blood Pressure: 138 mmHg Is BP treated: No HDL Cholesterol: [...] Constitutional: Negative for chills, fever and malaise/fatigue. HENT: Positive for congestion. Negative for ear pain, hearing loss, sore throat and tinnitus. Eyes: Negative for blurred vision and double vision. Respiratory: Negative for cough, shortness of breath and wheezing. Cardiovascular: Negative for chest pain and palpitations. Gastrointestinal: Negative for abdominal pain, constipation, diarrhea, nausea and vomiting. Musculoskeletal: Negative for myalgias. Neurological: Positive for dizziness. Negative for tingling, tremors, seizures, loss of consciousness, weakness and headaches. Objective PHYSICAL EXAM Physical Exam Constitutional: Appearance: She is well-developed. HENT: Head: Normocephalic and atraumatic. Right Ear: Ear canal normal. A middle ear effusion is present. Left Ear: Tympanic membrane and ear canal normal. Nose: Nose normal. Mouth/Throat: Lips: [place]. Mouth: Mucous membranes are moist. Tongue: No lesions. Palate: No mass. Pharynx: Oropharynx is clear. Tonsils: No tonsillar [...] Normal breath sounds. No wheezing or rales. Lymphadenopathy: Cervical: No cervical adenopathy. Skin: General: Skin is warm and dry. Comments: [place] to left ear barely palpable nodule. Neurological: General: No focal deficit present. Mental Status: She is alert and oriented to person, place, and time. GCS: GCS eye subscore is 4. GCS verbal subscore is 5. GCS motor subscore is 6. Cranial Nerves: Cranial nerves are intact. Sensory: Sensation is intact. Motor: Motor function is intact. No pronator drift. Coordination: Coordination is intact. Romberg sign negative. Coordination normal. Heel to Chance Testnormal. Gait: Gait is intact. Deep Tendon Reflexes: Reflex Scores: Patellar reflexes are 2+ on the right side and 2+ on the left side. Comments: CN II-XII intact. PERRL, EOMS intact. Neg Aide-Hallpike No results found for any visits on 01/06/20 (from the past 24 hour(s)). ASSESSMENT and PLAN: Lis was seen today for cyst. Diagnoses and all orders for this visit: Vertigo - meclizine (ANTIVERT) 25 mg tablet; Take 1 Tablet (25 mg) by mouth 3 times daily as needed for Dizziness. Moderate episode of recurrent major depressive disorder - buPROPion HCL (Wellbutrin XL) 150 mg Extended Release 24 hour tablet; Take 1 Tablet (150 mg) by mouth daily marine meteorologist. Generalized anxiety disorder - buPROPion HCL (Wellbutrin XL) 150 mg Extended Release 24 hour tablet; Take 1 Tablet (150 mg) by mouth daily marine meteorologist. Blood pressure elevated without history of HTN ETD (Eustachian tube dysfunction), right - fluticasone propionate (FLONASE) 50 mcg/spray [place], Suspension nasal inhaler; Use 2 sprays each nostril twice a day for 7-10 days Other orders - metFORMIN (GLUCOPHAGE) 500 mg tablet; Take 1 Tablet (500 mg) by mouth 2 times daily. - sertraline (ZOLOFT) 100 mg tablet; Take 1 Tablet (100 mg) by mouth daily. - Discontinue: pantoprazole (PROTONIX) 40 mg Tablet, Delayed Release (E.C.); Take 1 Tablet (40 mg) by mouth daily. - pantoprazole (PROTONIX) 40 mg Tablet, Delayed Release (E.C.); Take 1 Tablet (40 mg) by mouth daily. Cyst-wants to wait on excision. Not inflamed today. Vertigo-neg Barnum-Hallpike maneuver, neg neuro exam. Hx of AR. Antivert-discussed risk for sedation. ETD may be contributing-Flonase. Follow up next week. Elevated BP- will start Lisinopril 5-10 mg (hx of diabetes) if BP is elevated. Anxiety-controlled with Wellbutrin/Zoloft Diabetes type 2-Metformin. Check lipids next OV-sent message to pt. documented in this encounter Miscellaneous Notes * Patient Instructions - Tessa Su NP - 01/06/2020 7:55 AM CDT Images from the original note were not included. Vertigo: Care Instructions Your Care Instructions Vertigo is the feeling that you or your surroundings are moving when there is no actual movement. It is often described as a feeling of spinning, whirling, falling, or tilting. Vertigo may make you vomit or feel nauseated. You may have trouble standing or walking and may lose your balance. Vertigo is often related to an inner ear problem, but it can have other more serious causes. If vertigo continues, you may need more tests to find its cause. Follow-up care is a barreto part of your treatment and safety. Be sure to make and go to all appointments, and call your doctor if you are having problems. It's also a good idea to know your test resultsand keep a list of the medicines you take. How can you care for yourself at home? ?? Do not lie flat on your back. Prop yourself up slightly. This may reduce the spinning feeling. Keep your eyes open. ?? Move slowly so that you do not fall. ?? If your doctor recommends medicine, take it exactly as directed. ?? Do not drive while you are having vertigo. Certain exercises, called Queen-Daroff exercises, can help decrease vertigo. To do Queen-Daroff exercises: ?? Sit on the edge of a bed or sofa and quickly lie down on the side that causes the worst vertigo.Lie on your side with your ear down. ?? Stay in this position for at least 30 seconds or until the vertigo goes away. ?? Sit up. If this causes vertigo, wait for it to stop. ?? Repeat the procedure on the other side. ?? Repeat this 10 times. Do these exercises 2 times a day until the vertigo is gone. When should you call for help? [id number] anytime you think you may need emergency care. For example, call if: ?? You passed out (lost consciousness). ?? You have symptoms of a stroke. [...] headache that is different from past headaches. Call your doctor now or seek immediate medical care if: ?? Vertigo occurs with a fever, a headache, or ringing in your ears. ?? You have new or increased nausea and vomiting. Watch closely for changes in your health, and be sure to contact your doctor if: ?? Vertigo gets worse or happens more often. ?? Vertigo has not gotten better after 2 weeks. Where can you learn more? Go to https://www.[employer].net/patiented Enter W717 in the search box to learn more about Vertigo: Care Instructions. Current as of: January 17, 2019?Content Version: 12.5 ?? [employer]. Care instructions adapted under license by your healthcare professional. If you have questions about a medical condition or this instruction, always ask your healthcare professional. These instructions may not represent the values of this healthcare organization. [employer] disclaims any warranty or liability for your use of this information. documented in this encounter Plan of Treatment Upcoming Encounters Date Type Department Care Team (Late st Contact Info) Description 06/20/2024 9:30 AM RESTORATION OFFICER Office Visit [facility] Orthopedic Surgery at the [facility] [address] [facility] [address] [address] [place] [address] [place] [address] [place] [address] 10/27/2024 2:45 PM CDT Office Visit [facility] Gastroenterology [facility] [address] [place] [address] Bebo Benites MD [address] [facility] [address] [place] [address] documented as of this encounter Visit Diagnoses Diagnosis Vertigo- Primary Dizziness and giddiness Moderate episode of recurrent major depressive disorder Generalized anxiety disorder Blood pressure elevated without history of HTN Elevated blood pressure reading without diagnosis of hypertension ETD (Eustachian tube dysfunction), right Type 2 diabetes mellitus without complication, without long-term current use of insulin documented in this encounter Additional Health Concerns Assessment Noted Time PHQ-9 Depression Total Score: 6 08/29/19 20 10:00 AM CDT documented as of this encounter Care Teams Dobby Looms Pegger Relationship Specialty Start Date End Date Francis Pereyra MD PCP - General Family Practice 02/08/18 12/08/21 documented as of this encounter
--- OUTSIDE RECORDS SUMMARY | 2024-06-08 20:21 | XMS_ITS | Encounter Summary ---
Author Organization [facility] Address [address] [facility] Attn: [place] [address] Care Team Providers Care Ear Nose And Throat Specialist Name Role Phone Francis Pereyra MD Primary Care Provider Rishi georges Encounter Details Date Type Department Care Team (Latest Contact Info) Description 12/11/2020 Travel Social History Tobacco Use Types Packs/Day [...] st Contact Info) Description 06/20/2024 9:30 AM ASSISTANT DIRECTOR OF ADMISSIONS Office Visit [facility] Orthopedic Surgery at the [facility] [address] [facility] [address] [place] [address] [place] [address] [place] [address] 10/27/2024 2:45 PM CDT Office Visit [facility] Gastroenterology [facility] [address] [facility] [address] [place] [address] Bebo Benites MD [address] [address] documented as of this encounter Visit Diagnoses Not on filedocumented in this encounter Additional Health Concerns Assessment Noted Time PHQ-9 Depression Total Score: 3 07/20/19 21 1:00 PM ASSISTANT DIRECTOR OF ADMISSIONS documented as of this encounter Care Teams Ear Nose And Throat Specialist Relationship Specialty Start Date End Date Francis Pereyra MD PCP - General Family Practice 02/08/18 12/08/21 documented as of this encounter
--- OUTSIDE RECORDS SUMMARY | 2024-06-08 20:21 | XMS_ITS | Encounter Summary ---
Author Organization [facility] Address [address] [facility] Attn: [place] [address] Care Team Providers Care Telephoner Name Role Phone Francis Pereyra MD Primary Care Provider Rishi georges Encounter Details Date Type Department Care Team (Latest Contact Info) Description 06/11/2021 Travel Social History Tobacco Use Types Packs/Day [...] COVID-19? No / Unsure 06/11/2021 6:50 AM ROLL OVER PRESS OPERATOR documented as of this encounter Plan of Treatment Upcoming Encounters Date Type Department Care Team (Late st Contact Info) Description 06/20/2024 9:30 AM ROLL OVER PRESS OPERATOR Office Visit [facility] Orthopedic Surgery at the [facility] Medicine [address] [facility] [address] [place] [address] [place] [address] [place] [address] 10/27/2024 2:45 PM CDT Office Visit [facility] Gastroenterology [facility] [address] [facility] [address] [place] [address] Bebo Benites MD [address] [address] documented as of this encounter Visit Diagnoses Not on filedocumented in this encounter Care Teams Telephoner Relationship Specialty Start Date End Date Francis Pereyra MD PCP - General Family Practice 02/08/18 12/08/21 documented as of this encounter
--- OUTSIDE RECORDS SUMMARY | 2024-06-08 20:21 | XMS_ITS | Encounter Summary ---
Author Organization [facility] Address [address] [facility] Attn: [place] [address] Care Team Providers Care Industrial Boilermaker Name Role Phone Francis Pereyra MD Primary Care Provider Unawalter georges Encounter Details Date Type Department Care Team (Latest Contact Info) Description 05/29/2021 Travel Social History Tobacco Use Types Packs/Day [...] have Coronavirus / COVID-19? No / Unsure 05/29/2021 1:19 PM HAND CANDY CUTTER documented as of this encounter Plan of Treatment Upcoming Encounters Date Type Department Care Team (Late st Contact Info) Description 06/20/2024 9:30 AM HAND CANDY CUTTER Office Visit [facility] Orthopedic Surgery at the [facility] Medicine [address] [facility] [address] [place] [address] [place] [address] [place] [address] 10/27/2024 2:45 PM CDT Office Visit [facility] Gastroenterology [facility] [address] [facility] [address] [place] [address] Bebo Benites MD [address] [address] documented as of this encounter Visit Diagnoses Not on filedocumented in this encounter Care Teams Industrial Boilermaker Relationship Specialty Start Date End Date Francis Pereyra MD PCP - General Family Practice 02/08/18 12/08/21 documented as of this encounter
--- OUTSIDE RECORDS SUMMARY | 2024-06-08 20:21 | XMS_ITS | Encounter Summary ---
Author Organization [facility] Address [address] [place] [address] Care Team Providers Care Water And Sewer Systems Supervisor Name Role Phone Francis Pereyra MD Primary Care Provider Rishi georges Encounter Details Date Type Department Care Team (Late st Contact Info) Description 04/17/2021 Orders Only [facility] at Work [facility] [place] [address] [place] [phone] Henrietta Andrade RN Right wrist pain Social History Tobacco Use [...] as of this encounter Miscellaneous Notes * Result Encounter Note - Francis Pereyra MD - 04/18/2021 10:48 AM CDT Result received in InBasket documented in this encounter Plan of Treatment Upcoming Encounters Date Type Department Care Team (Late Contact Info) Description 06/20/2024 9:30 AM UTILITY MANAGER Office Visit [facility] Orthopedic Surgery at the [facility] [address] [place] [address] [place] [address] [place] [address] 10/27/2024 2:45 PM CDT Office Visit [facility] Gastroenterology [place] [address] [place] [address] Bebo Benites MD [address] [place] [address] documented as of this encounter Procedures Procedure Name Priority Date/Time Associated Diagnosis Comments NERVE CONDUCTION TEST Routine 04/04/2021 Right wrist pain documented in this encounter Results * NERVE CONDUCTION TEST (04/04/2021) Lis PEREZ [facility] DEVIKA MARTINEZ [facility] CLIA# [id number] [address] [place] [address] documented in this encounter Visit Diagnoses Diagnosis Right wrist pain Pain in joint, forearm documented in this encounter Care Teams Water And Sewer Systems Supervisor Relationship Specialty Start Date End Date Francis Pereyra MD PCP - General Family Practice 02/08/18 12/08/21 documented as of this encounter
--- OUTSIDE RECORDS SUMMARY | 2024-06-08 20:21 | XMS_ITS | Encounter Summary ---
Author Organization [facility] Address [address] [facility] Attn: [place] [address] Care Team Providers Care Project Technician Name Role Phone Francis Pereyra MD Primary Care Provider Rishi georges Encounter Details Date Type Department Care Team (Latest Contact Info) Description 12/27/2019 Travel Social History Tobacco Use Types Packs/Day [...] have Coronavirus / COVID-19? No / Unsure 12/27/2019 9:31 AM CDT documented as of this encounter Plan of Treatment Upcoming Encounters Date Type Department Care Team (Late st Contact Info) Description 06/20/2024 9:30 AM LEATHER GOODS I ASSEMBLER Office Visit [facility] Orthopedic Surgery at the [facility] Medicine [address] [address] [place] [address] [place] [address] [place] [address] 10/27/2024 2:45 PM CDT Office Visit [facility] Gastroenterology [facility] [address] [facility] [address] [place] [address] Bebo Benites MD [address] [address] documented as of this encounter Visit Diagnoses Not on filedocumented in this encounter Additional Health Concerns Assessment Noted Time PHQ-9 Depression Total Score: 6 08/29/19 20 10:00 AM CDT documented as of this encounter Care Teams Project Technician Relationship Specialty Start Date End Date Francis Pereyra MD PCP - General Family Practice 02/08/18 12/08/21 documented as of this encounter
--- OUTSIDE RECORDS SUMMARY | 2024-06-08 20:21 | XMS_ITS | Encounter Summary ---
Author Organization [facility] Address [address] [facility] Attn: [place] [address] Care Team Providers Care Food Beverage Server Name Role Phone Francis Pereyra MD Primary Care Provider Rishi georges Encounter Details Date Type Department Care Team (Latest Contact Info) Description 12/20/2019 Travel Social History Tobacco Use Types Packs/Day [...] have Coronavirus / COVID-19? No / Unsure 12/20/2019 3:47 PM CDT documented as of this encounter Plan of Treatment Upcoming Encounters Date Type Department Care Team (Late st Contact Info) Description 06/20/2024 9:30 AM BEADING SAWYER Office Visit [facility] Orthopedic Surgery at the [facility] Medicine [address] [facility] [address] [place] [address] [place] [address] [place] [address] 10/27/2024 2:45 PM CDT Office Visit [facility] Gastroenterology [facility] [address] [facility] [address] [place] [address] Bebo Benites MD [address] [address] documented as of this encounter Visit Diagnoses Not on filedocumented in this encounter Additional Health Concerns Assessment Noted Time PHQ-9 Depression Total Score: 6 08/29/19 20 10:00 AM CDT documented as of this encounter Care Teams Food Beverage Server Relationship Specialty Start Date End Date Francis Pereyra MD PCP - General Family Practice 02/08/18 12/08/21 documented as of this encounter
--- OUTSIDE RECORDS SUMMARY | 2024-06-08 20:21 | XMS_ITS | Encounter Summary ---
Author Organization [facility] Address [address] [place] [address] Care Team Providers Care Cotton Tipper Name Role Phone Francis Pereyra MD Primary Care Provider Unava ilable Reason for Visit * Reason Comments Post-op Visit Encounter Details Date Type Department Care Team (Latest Contact Info) Description 11/24/2019 8:30 AM CDT Office Visit [facility] Trauma and General Surgery [address] [address] [facility] [address] [address] Houston Diaz MD NO ADDRESS ON FILE Postoperative visit (Primary Dx); Acute calculous cholecystitis; History of gastroschisis Social History Tobacco Use Types Packs/Day Years [...] Sign Reading Time Taken Comments Blood Pressure 130/90 11/24/2019 8:43 AM CDT Pulse - - Temperature 36.3 ??C (97.3 ??F) 11/24/2019 8:43 AM CD T Respiratory Rate - - Oxygen Saturation - - Inhaled Oxygen Concentration - - Weight 111.1 kg (245 lb) 11/24/2019 8:43 AM CDT Height 165.1 cm (5' 5 ) 11/24/2019 8:43 AM CDT Body Mass Index 40.77 11/24/2019 8:43 AM CDT documented in this encounter Progress Notes * Houston Diaz MD - 11/24/2019 8:55 AM CDT 1985 34 y.o. Lis Phelan presents for follow-up s/p Open cholecystectomy on 11/02. She also underwent a small bowel resection during this operation. She has no complaints. She states she has some tenderness of the incision though it is minimal. No problem with bowel movements. A/P: Pathology reviewed and benign Activity restrictions and progression reviewed, letter given for return to work on 12/11 with a lifting restriction of 25 pounds per arm. F/U in approximately [address] Wheeler Review of Systems Constitutional: Weight stable, - fatigue Eyes: - loss of peripheral vision Ear, Nose, Mouth, Throat: No complaints Cardiovascular: - palpitations; denies chest pain; denies calf pain Respiratory: - shortness of breath on exertion Gastrointestinal: Appetite good, denies heartburn and indigestion. - episodes of nausea Urinary: Denies incontinence, frequency, urgency Skin: - clammy, moist skin Neurological: - fainting; denies numbness, tingling, and tremors Psychiatric: Denies memory loss or depression Blood pressure (!) 130/90, temperature 97.3 ??F (36.3 ??C), temperature source Temporal, height 5' 5 (1.651 m), weight 111.1 kg (245 lb), last menstrual period 11/08/2019, not currently . Exam: General: A&O x3 Head: normocephalic Eyes: anicteric sclerae Chest: CTAB Heart: RRR, no m/g/r Abdomen: soft, NT, ND, no masses Incision: Healing well, salome removed, the upper skin edge adhesed below the level of the lower skin edge leaving a small shelf of exposed subcutaneous fat, silver nitrate was applied today. Ext: no pitting edema, warm TOBACCO COUNSELING She is not a tobacco user. Social, family and past medical history reviewed as well as pertinent labs and imaging in the development of my assessment and plan Patient Active Problem List Diagnosis Code ??? [...] History of gastroschisis Z87.738 ??? Ileus K56.7 15 min > 50% counseling or coordinating care Houston Diaz MD, 11/24/2019 8:56 AM Pager # [phone] documented in this encounter Plan of Treatment Upcoming Encounters Date Type Department Care Team (Late st Contact Info) Description 06/20/2024 9:30 AM SUPERVISOR SLASHING DEPARTMENT Office Visit [facility] Orthopedic Surgery at the [facility] [address] [facility] [place] [address] [place] [address] [place] [address] 10/27/2024 2:45 PM CDT Office Visit [facility] Gastroenterology [facility] [address] [facility] [address] [place] [address] Bebo Benites MD [address] [facility] [address] [place] [address] documented as of this encounter Visit Diagnoses Diagnosis Postoperative visit- Primary Acute calculous cholecystitis Calculus of gallbladder with acute cholecystitis, without mention of obstruction History of gastroschisis documented in this encounter Additional Health Concerns Assessment Noted Time PHQ-9 Depression Total Score: 6 08/29/19 20 10:00 AM CDT documented as of this encounter Care Teams Cotton Tipper Relationship Specialty Start Date End Date Francis Pereyra MD PCP - General Family Practice 02/08/18 12/08/21 documented as of this encounter
--- OUTSIDE RECORDS SUMMARY | 2024-06-08 20:21 | XMS_ITS | Encounter Summary ---
Author Organization [facility] Address [address] [place] [address] Care Team Providers Care Nuclear Test Technician Name Role Phone Francis Pereyra MD Primary Care Provider Unava ilable Reason for Referral * Eval and Treat (Routine) - Closed Specialty Diagnoses / Procedures Referred By Rodney t Referred To Contact Orthopedic Surgery Diagnoses Right wrist pain Francis Pereyra MD NO ADDRESS ON FILE [facility] Orthopedic Surgery [address] [address] Referral ID Status Reason Start Date Expiration Date V isits Requested Visits Authorized [id number] Closed [facility] CTS 05/06/2021 05/07/2022 1 1 [employer] Encounter Details Date Type Department Care Team (Late st Contact Info) Description 05/06/2021 Orders Only [facility] at Work [employer] [place] [address] [place] [address] Francis Pereyra MD NO ADDRESS ON FILE [...] Progress Notes * Henrietta Andrade RN - 05/06/2021 10:11 AM CST Referral for ortho entered for scheduling per Dr. Pereyra. [employer] documented in this encounter Plan of Treatment Upcoming Encounters Date Type Department Care Team (Late st Contact Info) Description 06/20/2024 9:30 AM PREPARER SAMPLES AND REPAIRS Office Visit [facility] Orthopedic Surgery at the [facility] [address] [facility] [address] [place] [address] [place] [address] [place] [address] 10/27/2024 2:45 PM CDT Office Visit [facility] Gastroenterology [facility] [address] [facility] [address] [place] [address] Bebo Benites MD [address] [facility] [address] [place] [address] Scheduled Referrals Name Type Priority Associated Diagnoses Order Schedule AMB REFERRAL TO ORTHOPEDIC SURGERY Outpatient Referral Routine Right wrist pain Ordered: 05/06/2021 documented as of this encounter Visit Diagnoses Diagnosis Right wrist pain- Primary Pain in joint, forearm documented in this encounter Care Teams Nuclear Test Technician Relationship Specialty Start Date End Date Francis Pereyra MD PCP - General Family Practice 02/08/18 12/08/21 documented as of this encounter
--- OUTSIDE RECORDS SUMMARY | 2024-06-08 20:21 | XMS_ITS | Encounter Summary ---
Author Organization [facility] Address [address] [place] [address] Care Team Providers Care Marine Diesel Mechanic Name Role Phone Francis Pereyra MD Primary Care Provider Unava ilable Reason for Visit * Auth/Cert Specialty Diagnoses / Procedures Referred By Rodney call Referred To Contact Diagnoses Right Carpal Tunnel Syndrome Procedures PA REVISE MEDIAN N/[place] [id number] [employer] [facility] [address] [place] [address] Referral ID Status Reason Start Date Expiration Date Visits Re quested Visits Authorized [id number] 05/28/2021 1 1 Encounter Details Date Type Department Care Team (Late st Contact Info) Description 06/11/2021 8:52 AM SALON SHAMPOO ASSISTANT Anesthesia Event [facility]ERY PERRIS PONCHO LILIYA [address] [facility] [address] [place] [phone] Yahir Guzman, [address] [place] [phone] Anesthesia Record Procedure Summary Procedure Name Responsible Anesthesiologist Anesthesia Start Time Anesthesia Stop Time RIGHT CARPAL TUNNEL RELEASE (Right: Wrist) Yahir Guzman DO 06/11/21 0852 06/11/21 0935 Events Date Time Event Comment 06/11/2021 0728 0852 An Start Patient identif ied. Reviewed EPIC, VS, allergies, CHINESE MEDICINE PRACTITIONER Meds, Labs and History. Consent/procedure verified. Anesthesia plan explained to patient/family. Anesthesia options given. Questions solicited, answered. Patient and/or family verbalized understanding of plan and wish to proceed. Pre-op med given as documented. JEFFREY Mitigation Strategy Note For the patient at risk or that has documented JEFFREY, the following are mitigation strategies that may have been employed where applicable. + Multimodal Analgesia when appropriate + HOB Elevation, and/or with oxygen delivery as documented during procedure and/or post-op. + PNB if applicable for procedure and patient consented + Encouraged ICE application if applicable, for pain relief post-op + If extremity procedure performed, encouraged elevation of extremity + For GI patient's, HOB elevated. Oxygen delivery as documented. + If patient not allergic or sensitive, Tylenol or NSAID's if applicable for additional pain control as directed by post-op orders of surgeon.. 0856 AN Equip Check Anesthesia eq uipment and materials checked in accordance with local policy. 0856 An Start Data 0856 In Room This event disp lays the In Room time documented in the Surgical Log. Deleting this event will not remove it from the log but will remove it from the Grid and Graph timeline. 0901 Pre-Induction Immediate pre- induction anesthetic assessment performed. Vital signs as noted on graphic. HOB elevated End-Tidal Carbon Dioxide Monitoring Disclosure End-Tidal Carbon Dioxide Monitoring used during procedure. Since neither an endotracheal tube nor supraglottic device used, recorded numbers are not indicative of a true end tidal CO2 concentration. The values indicate presence of carbon dioxide and have no bearing on the quality of respiration. Monitoring is also subject to the measuring device and its location, implying that a low or absent reading does not necessarily indicate apnea or obstruction. Clinical correlation will be used. 0901 An Induction MAC anesthesia with Propofol titrated to effect for adequate depth of sedation for procedure. Initial dose given and charted, then total dose administered and charted at procedure end. 0906 Anesthesia Ready 0914 An Tourn Inflated 250mmHg 0914 Procedure Start This event d isplays the Procedure Start time documented in the Surgical Log. Deleting this event will not remove it from the log but will remove it from the Grid and Graph timeline. 0926 An Tourn Deflated 12min 09 Procedure Stop This event di splays the Procedure Stop time documented in the Surgical Log. Deleting this event will not remove it from the log but will remove it from the Grid and Graph timeline. 0929 an stop data Patient stable. Data Collection ends from intraop monitors. Patient moved self to bed/stretcher. Taken to PACU with HOB elevated. 0932 Out of Room This event disp lays the Out of Room time documented in the Surgical Log. Deleting this event will not remove it from the log but will remove it from the Grid and Graph timeline. 0935 An Stop 0935 Hand-off to Receiving Clinic pavan Post-Anesthetic transfer of care report elements to appropriate post-anesthesia recovery environment completed in accordance with procedure. Report to CUSTOMER RELATIONS ASSISTANT, including but not limited to Patient ID, Surgeon/proceduralist of record, pertinent medical history, allergies, OR-Procedure room procedure, Intra-op anesthetic management, I+O's. Provided opportunity for Q+A with verbal understanding by receiving RN, Patient stable. Care transferred. Vital Signs charted on flowsheet. Meds Name Total midazolam PF (VERSED) 1 mg/mL injection 2 mg fentaNYL (SUBLIMAZE) PF 50??mcg/mL injec tion 50 mcg lidocaine PF (XYLOCAINE MPF) 2% injectio n 5 mL dexamethasone (DECADRON) 4 mg/mL injecti on 4 mg ketorolac (TORADOL) 30??mg/mL injection 30 mg propofol (DIPRIVAN) 10??mg/mL injection 70 mg propofol (DIPRIVAN) 10??mg/mL injection 309.38 mg ceFAZolin in sterile water ( ANCEF) 2 gram/20 mL IV Syringe (PREMIX) 2,000 mg 2,000 mg lactated ringers infusion 500 mL * Agents Name O2 N2O Inspired N2O O2 * Blood No blood administrations on file. Lines, Drains, and Airways Type Details Placement Removal Wound 06/11/21; 09; No; 1; Right; hand; surgical 06/11/21 09 by Kary Jc RN Peripheral IV Pre-Hospital Start: No; Orientation: Left, Outer, Upper; Location: Arm; Device: Angiocath; Gauge: 20 gauge; Removal Indication: observed not present 12/28/20 153 by Eula Marcum RN 11/27/212032 by Gissell Rainey RN Peripheral IV Pre-Hospital Start: No; Orientation: Left, Posterior; Location: Hand; Device: Angiocath; Gauge: 20 gauge; Needle Length: 1 in length; Insertion Attempts: 1; Patient Tolerance: tolerated well; Power Injectable Compatible: No; Removal Indication: no longer indicated; Removal Interventions: pressure dressing, catheter intact 06/11/21 0751 by Ashley Valadez RN 06/11/21 1020 by Rebecca Tamayo RN documented in this encounter Social History [...] COVID-19? No / Unsure 06/11/2021 6:50 AM SALON SHAMPOO ASSISTANT documented as of this encounter OR Notes * Anesthesia Postprocedure Evaluation - Yahir Guzman DO - 06/11/2021 10:10 AM CST Phase II Postanesthesia Evaluation Including [facility] Modified Randi Score Patient seen and evaluated: [facility] Modified Randi Score: Score: 19 (06/11/21932) COMMENTS: No apparent Anesthesia related complications RESPIRATORY FUNCTION: Respiration: able to breath and cough freely (06/11/21932) [2=able to breathe and cough freely, 1=dyspnea, limited breathing or tachypnea, 0=apnea or mechanicventilator] O2 Saturation: able to maintain O2 saturation greater than 92% on room air (06/11/21932) [2=able to maintain O2 saturation greater than 92% on room air, 1=needs O2 inhalation to maintain O2 saturation greater than 90%, 0=O2 saturation less than 90% even with O2 supplement] Resp: 22 (06/11/21954)SpO2: 98 % (06/11/21954) CARDIOVASCULAR FUNCTION: Heart Rate: 88 bpm (06/11/21954) BP: (!) 164/90 (06/11/21954) Circulation: BP within 20% of preanesthetic level (06/11/21932) [2=BP within 20% of preanesthetic level, 1=BP within 20-49% of preanesthetic level, 0=BP within 50%of preanesthetic level] MENTAL STATUS, NEURO, ACTIVITY: PATIENT PARTICIPATION IN EVALUATIONyes Consciousness: fully awake (06/11/21932) [2=fully awake, 1=arousable on calling, 0=not responding] Activity: able to move 4 extremities voluntarily or on command (06/11/21932) [2=able to move 4 extremities voluntarily or on command, 1=able to move 2 extremities voluntarily or on command, 0=unable to move extremities voluntarily or on command] Ambulation: able to stand up and walk straight, on ordered bedrest, or performing at patient's prior level of function (06/11/21932) [2=able to stand up and walk straight, on ordered bedrest, or performing at patient's prior level of function, 1=vertigo when erect, 0=dizziness when supine] TEMPERATURE: Temp: 36.2 ??C (06/11/21932) PAIN: Pain: pain free (06/11/21932) [2=pain free, 1=pain handled by oral medication, 0=pain requiring parenteral medication] NAUSEA AND VOMITING: no nausea and no vomiting Fasting/Feeding: able to drink fluids, ice chips or NPO (06/11/21932) [2=able to drink fluids, ice chips or NPO, 1=nauseated, 0=nausea and vomiting] POSTOPERATIVE HYDRATION: well hydrated Intake/Output Summary (Last 24 hours) at 06/11/2021 1014 Last data filed at 06/11/2021 0942 Gross per 24 hour Intake 720 ml Output 2 ml Net 718 ml Urine Output: unable to void but comfortable (06/11/21932) [2=has voided, adequate urine output per device, or not applicable, 1=unable to void but comfortable, 0=unable to void and uncomfortable] WOUND: Dressing: dry and clean or not applicable (06/11/21932) [2=dry and clean or not applicable, 1=wet, marked and not increasing, 0=growing area of wetness] Yahir Guzman DO 06/11/2021 10:14 AM N SHAMPOO ASSISTANT * Anesthesia Handoff - Celsa Fonseca CRNA - 06/11/2021 9:35 AM CST Post-Anesthetic transfer of care report elements to [...] and acknowledgement of understanding. Vital Signs: BP: (!) 150/84 (06/11/2021 9:33 AM) Pulse: 89 (06/11/2021 9:33 AM) Temp: 36.2 ??C (06/11/2021 9:33 AM) Resp: 15 (06/11/2021 9:33 AM) SpO2: 90 % (06/11/2021 9:33 AM) 9:36 AM Celsa Fonseca CRNA N SHAMPOO ASSISTANT * Anesthesia Preprocedure Evaluation - Yahir Guzman DO - 06/11/2021 7:26 AM CST Images from the original note were not included. Relevant Problems CARDIOVASCULAR (+) HTN (hypertension), benign ENDOCRINE (+) Type 2 diabetes mellitus without complication, without long-term current use of insulin GI (+) GERD (gastroesophageal reflux disease) Neuro/Psych (+) History of gastroschisis PULMONARY (+) Asthma (+) Mild intermittent asthma without complication Anesthesia [...] psychiatric history GI/Hepatic/Renal (+) GERD well controlled, Endo/Other (+) diabetes mellitus (POC BS 129) type 2 well controlled, arthritis Comments: COVID 19 05/30/2020, still with cough if throat dry. Abdominal (+) obese, Anesthesia History No history of anesthetic complications. Anesthesia Plan ASA Final: 3 MAC and Local Intravenous induction Supraglottic airway maintenance NPO status > 8 hours (Sip of H2O at 0430) Anesthetic plan and risks discussed with Patient. Plan discussed with Nurse Anode Machine Operator and Surgeon. Post-op Pain Control Plan to use IV or IM medication, Oral medication and Per surgeon for post-op pain control. Plan for postoperative opioid use Smoking Compliance Patient did not smoke on day of surgery N SHAMPOO ASSISTANT documented in this encounter Plan of Treatment Upcoming Encounters Date Type Department Care Team (Late st Contact Info) Description 06/20/2024 9:30 AM SALON SHAMPOO ASSISTANT Office Visit [facility] Orthopedic Surgery at the [facility] [address] [facility] [facility] [address] [place] [address] [place] [address] [place] [address] 10/27/2024 2:45 PM CDT Office Visit [facility] Gastroenterology [facility] [address] [place] [address] Bebo Benites MD [address] [place] [address] documented as of this encounter Visit Diagnoses Not on filedocumented in this encounter Administered Medications Inactive Administered Medications - up to 3 most recent administrations Medication Order MAR Action Action Date Dose Rate Site ceFAZolin in sterile water (ANCEF) 2 gram/20 mL IV Syringe (PREMIX) 2,000 mg 2,000 mg, IV, PRE-PROCEDURE ONCE, 1 dose, Starting on Thu06/11/21 at 0717, Until Thu06/11/21 at 0852, Routine, Pre-op, Antibiotic Indication: Surgical prophylaxis Given 06/11/2021 8:52 AM SALON SHAMPOO ASSISTANT 2,000 mg dexamethasone (DECADRON) injection IV, INTRA-PROCEDURE PRN, Starting on Thu06/11/21 at 0901, Until Thu06/11/21 at 0935, Routine, Anesthesia Intra-op Given 06/11/2021 9:01 AM SALON SHAMPOO ASSISTANT 4 mg fentaNYL PF (SUBLIMAZE) 50 mcg/mL injection IV, INTRA-PROCEDURE PRN, Starting on Thu06/11/21 at 0852, Until Thu06/11/21 at 0935, Routine, Anesthesia Intra-op Given 06/11/2021 8:52 AM SALON SHAMPOO ASSISTANT 50 mcg ketorolac (TORADOL) injection IV, INTRA-PROCEDURE PRN, Starting on Thu06/11/21 at 0852, Until Thu06/11/21 at 0935, Routine, Anesthesia Intra-op Given 06/11/2021 8:52 AM SALON SHAMPOO ASSISTANT 30 mg lactated ringers infusion IV, at 150 mL/hr, PRE-PROCEDURE CONTINUOUS, Starting on Thu06/11/21 at 0730, Until Thu06/11/21 at 1221, Routine, Pre-op Restarted 06/11/2021 9:29 AM SALON SHAMPOO ASSISTANT Continue from Pre-Op 06/11/2021 8:52 AM SALON SHAMPOO ASSISTANT 150 mL/hr New Bag 06/11/2021 7:52 AM SALON SHAMPOO ASSISTANT 150 mL/hr lidocaine PF 2% (XYLOCAINE MPF) injection IV, INTRA-PROCEDURE PRN, Starting on Thu06/11/21 at 0901, Until Thu06/11/21 at 0935, Routine, Anesthesia Intra-op Given 06/11/2021 9:01 AM SALON SHAMPOO ASSISTANT 5 mL midazolam (PF) (VERSED) injection IV, INTRA-PROCEDURE PRN, Starting on Thu06/11/21 at 0852, Until Thu06/11/21 at 0935, Routine, Anesthesia Intra-op Given 06/11/2021 8:52 AM SALON SHAMPOO ASSISTANT 2 mg propofoL (DIPRIVAN) injection IV, INTRA-PROCEDURE PRN, Starting on Thu06/11/21 at 0901, Until Thu06/11/21 at 0935, Anesthesia Intra-op Given 06/11/2021 9:02 AM SALON SHAMPOO ASSISTANT 10 mg Given 06/11/2021 9:01 AM SALON SHAMPOO ASSISTANT 60 mg propofoL (DIPRIVAN) injection IV, INTRA-PROCEDURE CONTINUOUS PRN, Starting on Thu06/11/21 at 0902, Until Thu06/11/21 at 0935, Anesthesia Intra-op New Bag 06/11/2021 9:02 AM SALON SHAMPOO ASSISTANT 125 mcg/kg/min 84.375 mL/hr documented in this encounter Care Teams Marine Diesel Mechanic Relationship Specialty Start Date End Date Francis Pereyra MD PCP - General Family Practice 02/08/18 12/08/21 documented as of this encounter
--- OUTSIDE RECORDS SUMMARY | 2024-06-08 20:21 | XMS_ITS | Encounter Summary ---
Author Organization [facility] Address [address] [facility] Attn: [place] [address] Care Team Providers Care Clerk Manager Name Role Phone Francis Pereyra MD Primary Care Provider Rishi georges Encounter Details Date Type Department Care Team (Latest Contact Info) Description 12/22/2019 Travel Social History Tobacco Use Types Packs/Day [...] st Contact Info) Description 06/20/2024 9:30 AM TYRE FINISHER AND EXAMINER Office Visit [facility] Orthopedic Surgery at the [facility] [address] [facility] [place] [address] [place] [address] [place] [address] 10/27/2024 2:45 PM CDT Office Visit [facility] Gastroenterology [facility] [address] [facility] [address] [place] [address] Bebo Benites MD [address] [address] documented as of this encounter Visit Diagnoses Not on filedocumented in this encounter Additional Health Concerns Assessment Noted Time PHQ-9 Depression Total Score: 6 08/29/19 20 10:00 AM CDT documented as of this encounter Care Teams Clerk Manager Relationship Specialty Start Date End Date Francis Pereyra MD PCP - General Family Practice 02/08/18 12/08/21 documented as of this encounter
--- OUTSIDE RECORDS SUMMARY | 2024-06-08 20:21 | XMS_ITS | Encounter Summary ---
Author Organization [facility] Address [address] [facility] Attn: [place] [address] Care Team Providers Care Technologist Infectious Disease Name Role Phone Francis Pereyra MD Primary Care Provider Rishi georges Encounter Details Date Type Department Care Team (Latest Contact Info) Description 12/06/2019 Travel Social History Tobacco Use Types Packs/Day [...] have Coronavirus / COVID-19? No / Unsure 12/06/2019 11:33 AM CDT documented as of this encounter Plan of Treatment Upcoming Encounters Date Type Department Care Team (Late st Contact Info) Description 06/20/2024 9:30 AM ACUTE CARE SURGEON Office Visit [facility] Orthopedic Surgery at the [facility] Medicine [address] [facility] [address] [place] [address] [place] [address] [place] [address] 10/27/2024 2:45 PM CDT Office Visit [facility] Gastroenterology [facility] [address] [facility] [address] [place] [address] Bebo Benites MD [address] [address] documented as of this encounter Visit Diagnoses Not on filedocumented in this encounter Additional Health Concerns Assessment Noted Time PHQ-9 Depression Total Score: 6 08/29/19 20 10:00 AM CDT documented as of this encounter Care Teams Technologist Infectious Disease Relationship Specialty Start Date End Date Francis Pereyra MD PCP - General Family Practice 02/08/18 12/08/21 documented as of this encounter
--- OUTSIDE RECORDS SUMMARY | 2024-06-08 20:21 | XMS_ITS | Encounter Summary ---
Author Organization [facility] Address [address] [place] [address] Care Team Providers Care What Job Titles Mean Name Role Phone Francis Pereyra MD Primary Care Provider Rishi georges Encounter Details Date Type Department Care Team (Late st Contact Info) Description 05/06/[address] [facility] at Work [employer] [place] [address] [place] [address] Henrietta Andrade RN Right wrist pain Social [...] Encounter Note - Francis Pereyra MD - 05/06/2021 10:05 AM SCIENCE TEACHER Please let patient know there is carpal tunnel as previously known. However there is also a tear of the fibrocartilage area. This certainly could contribute to the pain and symptoms. Recommend see ortho for their opinion and treatment options. NCE TEACHER documented in this encounter Plan of Treatment Upcoming Encounters Date Type Department Care Team (Late st Contact Info) Description 06/20/2024 9:30 AM SCIENCE TEACHER Office Visit [facility] Orthopedic Surgery at the [facility] [address] [facility] [place] [address] [place] [address] [place] [address] 10/27/2024 2:45 PM CDT Office Visit [facility] Gastroenterology [address] [place] [address] Bebo Benites MD [address] [facility] [address] [place] [address] documented as of this encounter Procedures Procedure Name Priority Date/Time Associated Diagnosis Comments MRI WRIST WO CONTRAST RIGHT Routine 05/04/2021 Right wrist pain documented in this encounter Results * MRI WRIST WO CONTRAST RIGHT (05/04/2021) Anatomical Region Laterality Modality Wrist / Hand Other Francis Pereyra MD MR ORDERABLES documented in this encounter Visit Diagnoses Diagnosis Right wrist pain Pain in joint, forearm documented in this encounter Care Teams What Job Titles Mean Relationship Specialty Start Date End Date Francis Pereyra MD PCP - General Family Practice 02/08/18 12/08/21 documented as of this encounter
--- OUTSIDE RECORDS SUMMARY | 2024-06-08 20:21 | XMS_ITS | Encounter Summary ---
Author Organization [facility] Address [address] [facility] Attn: [place] [address] Care Team Providers Care Central Supply Tech Name Role Phone Francis Pereyra MD Primary Care Provider Rishi georges Encounter Details Date Type Department Care Team (Latest Contact Info) Description 05/10/2021 Travel Social History Tobacco Use Types Packs/Day [...] COVID-19? No / Unsure 05/10/2021 8:12 AM DRY ROOM OPERATOR documented as of this encounter Plan of Treatment Upcoming Encounters Date Type Department Care Team (Late st Contact Info) Description 06/20/2024 9:30 AM DRY ROOM OPERATOR Office Visit [facility] Orthopedic Surgery at the [facility] Medicine [address] [facility] [address] [place] [address] [place] [address] [address] [place] [address] 10/27/2024 2:45 PM CDT Office Visit [facility] Gastroenterology [facility] [address] [facility] [address] [place] [address] Bebo Benites MD [address] [address] documented as of this encounter Visit Diagnoses Not on filedocumented in this encounter Care Teams Central Supply Tech Relationship Specialty Start Date End Date Francis Pereyra MD PCP - General Family Practice 02/08/18 12/08/21 documented as of this encounter
--- OUTSIDE RECORDS SUMMARY | 2024-06-08 20:21 | XMS_ITS | Encounter Summary ---
Author Organization [facility] Address [address] [facility] Attn: [place] [address] Care Team Providers Care Wide Area Network Engineer Name Role Phone Francis Pereyra MD Primary Care Provider Rishi georges Encounter Details Date Type Department Care Team (Latest Contact Info) Description 11/21/2019 Travel Social History Tobacco Use Types Packs/Day [...] have Coronavirus / COVID-19? No / Unsure 11/21/2019 8:41 AM CDT documented as of this encounter Plan of Treatment Upcoming Encounters Date Type Department Care Team (Late st Contact Info) Description 06/20/2024 9:30 AM CONCRETE BLOCK MOLDER Office Visit [facility] Orthopedic Surgery at the [facility] Medicine [address] [facility] [address] [place] [address] [place] [address] [place] [address] 10/27/2024 2:45 PM CDT Office Visit [facility] Gastroenterology [facility] [address] [facility] [address] [place] [address] Bebo Benites MD [address] [address] documented as of this encounter Visit Diagnoses Not on filedocumented in this encounter Additional Health Concerns Assessment Noted Time PHQ-9 Depression Total Score: 6 08/29/19 20 10:00 AM CDT documented as of this encounter Care Teams Wide Area Network Engineer Relationship Specialty Start Date End Date Francis Pereyra MD PCP - General Family Practice 02/08/18 12/08/21 documented as of this encounter
--- OUTSIDE RECORDS SUMMARY | 2024-06-08 20:21 | XMS_ITS | Encounter Summary ---
Author Organization [facility] Address [address] [facility] Attn: [place] [address] Care Team Providers Care Service Worker Helper Name Role Phone Francis Pereyra MD Primary Care Provider Rishi georges Encounter Details Date Type Department Care Team (Latest Contact Info) Description 10/29/2020 Travel Social History Tobacco Use Types Packs/Day [...] st Contact Info) Description 06/20/2024 9:30 AM HEAVY EQUIPMENT OPERATOR/PAVER Office Visit [facility] Orthopedic Surgery at the [facility] Medicine [address] [place] [address] [place] [address] [place] [address] 10/27/2024 2:45 PM CDT Office Visit [facility] Gastroenterology [facility] [address] [facility] [address] [place] [address] Bebo Benites MD [address] [address] documented as of this encounter Visit Diagnoses Not on filedocumented in this encounter Additional Health Concerns Assessment Noted Time PHQ-9 Depression Total Score: 3 07/20/19 21 1:00 PM HEAVY EQUIPMENT OPERATOR/PAVER documented as of this encounter Care Teams Service Worker Helper Relationship Specialty Start Date End Date Francis Pereyra MD PCP - General Family Practice 02/08/18 12/08/21 documented as of this encounter
--- OUTSIDE RECORDS SUMMARY | 2024-06-08 20:21 | XMS_ITS | Encounter Summary ---
Author Organization [facility] Address [address] [place] [address] Care Team Providers Care Nuclear Officer Name Role Phone Francis Pereyra MD Primary Care Provider Rishi georges Encounter Details Date Type Department Care Team (Late Contact Info) Description 11/16/2019 Abstract [facility] Trauma and General Surgery [address] [facility] [address] [address] Gabbie Wheeler MD NO ADDRESS ON FILE Social History [...] (Late Contact Info) Description 06/20/2024 9:30 AM PIANO REGULATOR INSPECTOR Office Visit [facility] Orthopedic Surgery at the [facility] [address] [place] [address] [place] [address] [place] [address] 10/27/2024 2:45 PM CDT Office Visit [facility] Gastroenterology [facility] [address] [facility] [address] [place] [address] Bebo Benites MD [address] [facility] [address] [place] [address] documented as of this encounter Visit Diagnoses Not on filedocumented in this encounter Additional Health Concerns Assessment Noted Time PHQ-9 Depression Total Score: 6 08/29/19 20 10:00 AM CDT documented as of this encounter Care Teams Nuclear Officer Relationship Specialty Start Date End Date Francis Pereyra MD PCP - General Family Practice 02/08/18 12/08/21 documented as of this encounter
--- OUTSIDE RECORDS SUMMARY | 2024-06-08 20:21 | XMS_ITS | Encounter Summary ---
Author Organization [facility] Address [address] [place] [address] Care Team Providers Care Adolescent Psychiatrist Name Role Phone Francis Pereyra MD Primary Care Provider Unava ilable Reason for Visit * Reason Comments Medication Refill Encounter Details Date Type Department Care Team (Latest Contact Info) Description 04/16/2021 2:30 PM CDT Procedure visit [facility] at Work [employer] [place] [address] [place] [address] Encounter for issue of repeat [...] Progress Notes * Henrietta Andrade RN - 04/16/2021 2:41 PM CDT Lisinopril 10mg QD #100, Rosuvastatin 40mg QD #90, Bupropion 150mg QAM #90, Sertraline 100mg QD #90. Refill 0 of 2. Albuterol inhaler #1 Refill 0 of 6. documented in this encounter Plan of Treatment Upcoming Encounters Date Type Department Care Team (Late st Contact Info) Description 06/20/2024 9:30 AM TEAM GUIDE Office Visit [facility] Orthopedic Surgery at the [facility] Medicine [address] [facility] [place] [address] [place] [address] [place] [address] 10/27/2024 2:45 PM CDT Office Visit [facility] Gastroenterology [facility] [address] [facility] [address] [place] [address] Bebo Benites MD [address] [facility] [address] [place] [address] documented as of this encounter Visit Diagnoses Diagnosis Encounter for issue of repeat prescription- Primary Issue of repeat prescriptions documented in this encounter Care Teams Adolescent Psychiatrist Relationship Specialty Start Date End Date Francis Pereyra MD PCP - General Family Practice 02/08/18 12/08/21 documented as of this encounter
--- OUTSIDE RECORDS SUMMARY | 2024-06-08 20:21 | XMS_ITS | Encounter Summary ---
Author Organization [facility] Address [address] [place] [address] Care Team Providers Care Amplifier Mechanic Name Role Phone Francis Pereyra MD Primary Care Provider Rishi georges Encounter Details Date Type Department Care Team (Late Contact Info) Description 06/06/2021 Prep for Surgery [facility] Orthopedic Surgery - [address] [place] [phone] Paddy Mackey MD [address] [place] [address] [address] [place] [phone] Pre-op testing (Primary Dx) Social History Tobacco [...] COVID-19? No / Unsure 05/29/2021 1:19 PM ORDER ENTRY ADMINISTRATOR documented as of this encounter Plan of Treatment Upcoming Encounters Date Type Department Care Team (Late Contact Info) Description 06/20/2024 9:30 AM ORDER ENTRY ADMINISTRATOR Office Visit [facility] Orthopedic Surgery at the [facility] [address] [facility] [address] [place] [address] Paddy Mackey MD [address] [place] [address] [address] [place] [address] 10/27/2024 2:45 PM CDT Office Visit [facility] Gastroenterology [facility] [address] [facility] [address] [place] [address] Bebo Benites MD [address] [facility] [address] [place] [address] documented as of this encounter Visit Diagnoses Diagnosis Pre-op testing- Primary Preoperative examination, unspecified documented in this encounter Care Teams Amplifier Mechanic Relationship Specialty Start Date End Date Francis Pereyra MD PCP - General Family Practice 02/08/18 12/08/21 documented as of this encounter
--- OUTSIDE RECORDS SUMMARY | 2024-06-08 20:21 | XMS_ITS | Encounter Summary ---
Author Organization [facility] Address [address] [place] [address] Care Team Providers Care Manager Perioperative Name Role Phone Francis Pereyra MD Primary Care Provider Rishi georges Encounter Details Date Type Department Care Team (Late st Contact Info) Description 11/15/2019 Orders Only [facility] at Work [employer] [place] [address] [place] [address] Tessa Su, BALL ASSEMBLER [address] [facility] [address] [place] [address] Breath sounds, abnormal Social History Tobacco Use Types Packs/Day Years [...] st Contact Info) Description 06/20/2024 9:30 AM FINISHED METAL REPAIRER Office Visit [facility] Orthopedic Surgery at the [facility] Medicine [address] [place] [address] [place] [address] [place] [address] 10/27/2024 2:45 PM CDT Office Visit [facility] Gastroenterology [facility] [address] [facility] [address] [place] [address] Bebo Benites MD [address] [facility] [address] [place] [address] documented as of this encounter Visit Diagnoses Diagnosis Breath sounds, abnormal Abnormal chest sounds documented in this encounter Additional Health Concerns Assessment Noted Time PHQ-9 Depression Total Score: 6 08/29/19 20 10:00 AM CDT documented as of this encounter Care Teams Manager Perioperative Relationship Specialty Start Date End Date Francis Pereyra MD PCP - General Family Practice 02/08/18 12/08/21 documented as of this encounter
--- OUTSIDE RECORDS SUMMARY | 2024-06-08 20:21 | XMS_ITS | Encounter Summary ---
Author Organization [facility] Address [address] [place] [address] Care Team Providers Care Sample Case Porter Name Role Phone Francis Pereyra MD Primary Care Provider Rishi georges Encounter Details Date Type Department Care Team (Late Contact Info) Description 05/28/2021 Orders Only [facility] Orthopedic Surgery - [address] [place] [address] [place] [address] [place] [address] Social History Tobacco Use Types [...] COVID-19? No / Unsure 05/10/2021 8:12 AM INFORMATION RESOURCE CONSULTANT documented as of this encounter Plan of Treatment Upcoming Encounters Date Type Department Care Team (Late Contact Info) Description 06/20/2024 9:30 AM INFORMATION RESOURCE CONSULTANT Office Visit [facility] Orthopedic Surgery at the [facility] [address] [facility] [address] [place] [address] [place] [address] [address] [place] [address] 10/27/2024 2:45 PM CDT Office Visit [facility] Gastroenterology [place] [address] [facility] [address] [place] [address] Bebo Benites MD [address] [address] documented as of this encounter Visit Diagnoses Not on filedocumented in this encounter Care Teams Sample Case Porter Relationship Specialty Start Date End Date Francis Peryera MD PCP - General Family Practice 02/08/18 12/08/21 documented as of this encounter
--- OUTSIDE RECORDS SUMMARY | 2024-06-08 20:21 | XMS_ITS | Encounter Summary ---
Author Organization [facility] Address [address] [facility] Attn: [place] [address] Care Team Providers Care Road Grader Name Role Phone Francis Pereyra MD Primary Care Provider Rishi georges Encounter Details Date Type Department Care Team (Latest Contact Info) Description 08/03/2020 Travel Social History Tobacco Use Types Packs/Day [...] COVID-19? No / Unsure 08/03/2020 7:56 AM CROWN BUFFER documented as of this encounter Plan of Treatment Upcoming Encounters Date Type Department Care Team (Late st Contact Info) Description 06/20/2024 9:30 AM CROWN BUFFER Office Visit [facility] Orthopedic Surgery at the [facility] Medicine [address] [facility] [address] [place] [address] [place] [address] [place] [address] 10/27/2024 2:45 PM CDT Office Visit [facility] Gastroenterology [facility] [address] [facility] [address] [place] [address] Bebo Benites MD [address] [address] documented as of this encounter Visit Diagnoses Not on filedocumented in this encounter Additional Health Concerns Assessment Noted Time PHQ-9 Depression Total Score: 3 07/20/19 21 1:00 PM CROWN BUFFER documented as of this encounter Care Teams Road Grader Relationship Specialty Start Date End Date Francis Pereyra MD PCP - General Family Practice 02/08/18 12/08/21 documented as of this encounter
--- OUTSIDE RECORDS SUMMARY | 2024-06-08 20:21 | XMS_ITS | Encounter Summary ---
Author Organization [facility] Address [address] [place] [address] Care Team Providers Care Solar Installation Manager Name Role Phone Francis Pereyra MD Primary Care Provider Unava ilable Reason for Visit * Reason Comments Contraception Encounter Details Date Type Department Care Team (Late st Contact Info) Description 12/11/2020 7:30 AM CDT Office Visit [facility] at Work [employer] [place] [address] [place] [address] Cheyenne Horton, MICHAEL [address] [address] Encounter for BCP initial prescription (Primary Dx) Social History Tobacco Use [...] Reading Time Taken Comments Blood Pressure 116/74 12/11/2020 7:25 AM CDT Pulse 80 12/11/2020 7:25 AM CDT Temperature 36.4 ??C (97.5 ??F) 12/11/2020 7:25 AM CD T Respiratory Rate 18 12/11/2020 7:25 AM CDT Oxygen Saturation 98% 12/11/2020 7:25 AM CDT Inhaled Oxygen Concentration - - Weight 111.6 kg (246 lb) 12/11/2020 7:25 AM CDT Height 165.1 cm (5' 5 ) 12/11/2020 7:25 AM CDT Body Mass Index 40.94 12/11/2020 7:25 AM CDT documented in this encounter Progress Notes * Cheyenne Horton, SALVAGE MECHANIC - 12/11/2020 7:42 AM CDT HISTORY OF PRESENT ILLNESS Lis Phelan, a 35 y.o. female presents with a Chief Complaint of Contraception Subjective Pt presents to clinic today to discuss BCP. Pt has had the implanon for the past 4 years. She is due to have it removed and has an appt this . Pt feels that she has been unable to lose weightwith this type of contraception. She has been dieting and exercising since June and has only lost 10lbs. She would like to go back to OCP because she did not have weight issues with that, and tolerated it well. She does have Clinical Partner who is removing the device on . The history is provided by the patient. REVIEW OF SYSTEMS Review of Systems Constitutional: Negative. HENT: Negative. Respiratory: Negative. Cardiovascular: Negative. Gastrointestinal: Negative. Genitourinary: Negative. Musculoskeletal: Negative. Skin: Negative. Neurological: Negative. Objective PHYSICAL EXAM BP 116/74 (BP Location: Left arm, Patient Position (BP): Sitting, BP Cuff Size: Large Adult) Pulse 80 Temp 97.5 ??F (36.4 ??C) (Tympanic) Resp 18 Ht 5' 5 (1.651 m) Wt 111.6 kg (246 lb) SpO2 98% BMI 40.94 kg/m?? Physical Exam Vitals and nursing note reviewed. Constitutional: Appearance: Normal appearance. HENT: Head: Normocephalic. Eyes: Extraocular Movements: Extraocular movements intact. Conjunctiva/sclera: Conjunctivae normal. Cardiovascular: Rate and Rhythm: Normal rate. Pulmonary: Effort: Pulmonary effort is normal. Musculoskeletal: General: Normal range of motion. Cervical back: Normal range of motion. Skin: General: Skin is warm and dry. Neurological: General: No focal deficit present. Mental Status: She is alert and oriented to person, place, and time. Psychiatric: Mood and Affect: Mood normal. Behavior: Behavior normal. Procedures N/A Assessment ASSESSMENT and PLAN: ICD-10-CM ICD-9-CM 1. Encounter for BCP initial prescription 1 tab by mouth daily. Follow directions on packaging. Annual WWE. F/U as needed. Z30.011 V25.01 L-Norgest&E estradiol-E Estrad (Seasonique) 0.15 mg-30 mcg (84)/10 mcg (7) Tablet, Dose Pack, 3 Months documented in this encounter Plan of Treatment Upcoming Encounters Date Type Department Care Team (Late st Contact Info) Description 06/20/2024 9:30 AM COTTON FACTOR Office Visit [facility] Orthopedic Surgery at the [facility] Medicine [address] [facility] [address] [place] [address] [place] [address] [place] [address] 10/27/2024 2:45 PM CDT Office Visit [facility] Gastroenterology [facility] [address] [facility] [address] [place] [address] Bebo Benites MD [address] [facility] [address] [place] [address] documented as of this encounter Visit Diagnoses Diagnosis Encounter for BCP initial prescription- Primary General counseling for prescription of oral contraceptives documented in this encounter Additional Health Concerns Assessment Noted Time PHQ-9 Depression Total Score: 3 07/20/19 21 1:00 PM COTTON FACTOR documented as of this encounter Care Teams Solar Installation Manager Relationship Specialty Start Date End Date Francis Pereyra MD PCP - General Family Practice 02/08/18 12/08/21 documented as of this encounter
--- OUTSIDE RECORDS SUMMARY | 2024-06-08 20:21 | XMS_ITS | Encounter Summary ---
Author Organization [facility] Address [address] [place] [address] Care Team Providers Care Antisqueak Applier Name Role Phone Francis Pereyra MD Primary Care Provider Unava ilable Reason for Visit * Reason Comments Gland Swelling Encounter Details Date Type Department Care Team (Late st Contact Info) Description 12/06/2019 11:30 AM CDT Office Visit [facility] at Work [employer] [place] [address] [place] [address] Tessa Su, MICHAEL [address] [place] [address] Sebaceous cyst (Primary Dx) Social History Tobacco Use Types [...] Sign Reading Time Taken Comments Blood Pressure 116/84 12/06/2019 11:35 AM CDT Pulse 96 12/06/2019 11:35 AM CDT Temperature 36.8 ??C (98.2 ??F) 12/06/2019 11:35 AM C DT Respiratory Rate 18 12/06/2019 11:35 AM CDT Oxygen Saturation 98% 12/06/2019 11:35 AM CDT Inhaled Oxygen Concentration - - Weight 98.4 kg (217 lb) 12/06/2019 11:35 AM CDT Height 165.1 cm (5' 5 ) 12/06/2019 11:35 AM CDT Body Mass Index 36.11 12/06/2019 11:35 AM CDT documented in this encounter Progress Notes * Tessa Su, MICHAEL - 12/06/2019 12:27 PM CDT Images from the original note were not included. HISTORY OF PRESENT ILLNESS Lis Phelan is a 34 y.o. female who presents for Chief Complaint Patient presents with ??? Gland Swelling Has recurrent left sided mass that comes and goes above left ear. For the past week, tender and bigger again in her hair. No dge or fevers. Since pipe has right upper quad pain with pain to mid right back. Has surgery follow up in 2 weeks. Unrelated to meals, diminished appetite, is loosing wt. ABD wound is healing well. She was told she has a renal stone on the right side. Denies pain that is colicky or doubles her over. Past Medical History: Diagnosis Date ??? 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 ALPRAZolam (XANAX) 0.25 [...] Demerol [Meperidine] Swelling ??? Tramadol Hives BP 116/84 (BP Location: Right arm, Patient Position (BP): Sitting, BP Cuff Size: Large Adult) Pulse 96 Temp 98.2 ??F (36.8 ??C) (Tympanic) Resp 18 Ht 5' 5 (1.651 m) Wt 98.4 kg (217 lb) LMP 11/08/2019 (Exact Date) SpO2 98% BMI 36.11 kg/m?? MEDICAL RECORD UPDATE Past Medical History: [...] HX SURGICAL OTHER 04/2004 adhesion removed ??? MT ESOPHAGOGASTRODUODENOSCOPY TRANSORAL DIAGNOSTIC N/A 05/17/2019 ESOPHAGOGASTRODUODENOSCOPY performed by Jena Cerda MD at [facility] GI LAB ??? MT REMOVAL GALLBLADDER N/A 11/03/2019 OPEN CHOLECYSTECTOMY performed by Gabbie Wheeler MD at [facility] OR MAIN Family History Problem [...] reviewed and updated in computerized patient record. [facility] [address] [place] [address] Providers: Patient Care Team: Francis Pereyra MD as PCP - General (Family Practice) No Patient Care Coordination Note on file. Vital signs/Tobacco use BP 116/84 (BP Location: Right arm, Patient Position (BP): Sitting, BP Cuff Size: Large Adult) Pulse 96 Temp 98.2 ??F (36.8 ??C) (Tympanic) Resp 18 Ht 5' 5 (1.651 m) Wt 98.4 kg (217 lb) LMP 11/08/2019 (Exact Date) SpO2 98% BMI 36.11 kg/m?? Blood Pressure BP Readings from Last 3 Encounters: 12/06/19 116/84 11/24/19 (!) 130/90 11/11/19 138/88 BMI POC (QM) Body mass index is 36.11 kg/m??. Normal BMI range: 18 & older: > or = 18.5 and < 25 Abnormal high BMI: Patient counseled on lifestyle modifications including weight loss and daily exercise. The 10-year CVD risk score (D'Agostino, et al., 2008) is: 3.3% Values used to calculate the score: Age: 34 years Sex: Female Diabetic: Yes Tobacco smoker: No Systolic Blood Pressure: 116 mmHg Is BP treated: No HDL Cholesterol: [...] chills, fever and malaise/fatigue. Respiratory: Negative for cough, shortness of breath and wheezing. Cardiovascular: Negative for chest pain. Gastrointestinal: Positive for abdominal pain. Negative for blood in stool, constipation, diarrhea,heartburn, melena, nausea and vomiting. Genitourinary: Negative for flank pain and hematuria. Skin: Raised area above left ear Objective PHYSICAL EXAM Physical Exam Constitutional: Appearance: [...] Abdomen is protuberant. Bowel sounds are normal. Tenderness: There is abdominal tenderness in the right upper quadrant. There is no right CVA tenderness or left CVA tenderness. Comments: Transverse healed abd incision. Scabbing along incision line, no dge. Skin: General: Skin is warm and dry. Neurological: Mental Status: She is alert and oriented to person, place, and time. No results found for any visits on 12/06/19 (from the past 24 hour(s)). ASSESSMENT and PLAN: Lis was seen today for gland swelling. Diagnoses and all orders for this visit: Sebaceous cyst Suspect sebaceous cyst that becomes inflamed and then resolves again intermittently. Warm compresses and return prn for dge. Enc to report intermittent abd pain at next surgery follow up. Declined to submit UA. Denies urinary symptoms. Follow up for labs, hgA1C. Declined to schedule at this time. 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 Office Visit [facility] Orthopedic Surgery at the [facility] [address] [place] [address] [place] [address] [place] [address] 10/27/2024 2:45 PM CDT Office Visit [facility] Gastroenterology [facility] [address] [facility] [address] [place] [address] Bebo Benites MD [address] [address] documented as of this encounter Visit Diagnoses Diagnosis Sebaceous cyst- Primary documented in this encounter Additional Health Concerns Assessment Noted Time PHQ-9 Depression Total Score: 6 08/29/19 20 10:00 AM CDT documented as of this encounter Care Teams Antisqueak Applier Relationship Specialty Start Date End Date Francis Pereyra MD PCP - General Family Practice 02/08/18 12/08/21 documented as of this encounter
--- OUTSIDE RECORDS SUMMARY | 2024-06-08 20:22 | XMS_ITS | Encounter Summary ---
Author Organization [facility] Address [address] [place] [address] Care Team Providers Care Personal Injury Legal Assistant Name Role Phone Francis Pereyra MD Primary Care Provider Unava ilable Reason for Visit * Reason Comments Abdominal Pain pt arrived to ed wit h co RUQ abdominal pain. +N/V. Pain in the back has been occuring all day and the abdomen started around 8pm. * Auth/Cert Specialty Diagnoses / Procedures Referred By Rodney call Referred To Contact [facility] Medical Surgical [address] [place] [address] Referral ID Status Reason Start Date Expiration Date Visits Re quested Visits Authorized [id number] 1 1 Encounter Details Date Type Department Care Team (Late st Contact Info) Description 11/03/2019 7:15 AM CDT - 11/03/2019 10:45 AM T Surgery [facility] Operating Room [address] [place] [address] Allan Wheeler MD NO ADDRESS ON FILE OPEN CHOLECYSTECTOMY Surgery Details Date/Time Status Location OR Service Patient Class Case Class Case Type Trauma Case? 11/03/2019 7:15 AM Posted [facility] OR [facility] OR General Surgery Inpatient Elective No Panel 1 Procedure LRB Anes Op Region Wound Class Comments OPEN CHOLECYSTECTOMY N/A General Abdomen Clean-I Surgeon Surgeon Role Service Panel Allan Wheeler MD Primary General Surgery 1 Case Notes INPATIENT documented in this encounter Social History Tobacco [...] have Coronavirus / COVID-19? No / Unsure 11/01/2019 12:02 AM CDT documented as of this encounter Last Filed Vital Signs Vital Sign Reading Time Taken Comments Blood Pressure 139/94 11/03/2019 6:39 AM CDT Pulse 81 11/03/2019 6:39 AM CDT Temperature 36.2 ??C (97.1 ??F) 11/03/2019 6:39 AM CD T Respiratory Rate 20 11/03/2019 6:39 AM CDT Oxygen Saturation 97% 11/03/2019 6:39 AM CDT Inhaled Oxygen Concentration - - Weight 111.1 kg (245 lb) 11/01/2019 5:35 AM CDT Height 167.6 cm (5' 6 ) 11/01/2019 5:35 AM CDT Body Mass Index 39.54 11/01/2019 5:35 AM CDT documented in this encounter Discharge Summaries * Jackson Crenhsaw MD - 11/08/2019 8:18 AM CDT [facility] Adult Discharge Summary Lis Phelan 34 y.o. female 1985 CSN: [id number] Date of Admission: 11/01/2019 Date of Discharge: 11/08/2019 Discharging Physician: Jackson Crenshaw MD LOS: 6 days PCP: Francis Pereyra MD Code Status at Discharge: Full Code Dispo: Home Labs and studies from this hospitalization needing follow up: ?? None Follow-up: You must follow up with Francis Pereyra MD in 1 week Admitting Dx and Chief Complaint Chief Complaint Patient presents with ??? Abdominal Pain pt arrived to ed with co RUQ abdominal pain. +N/V. Pain in the back has been occuring all day and the abdomen started around 8pm. Acute calculous cholecystitis Discharge Diagnoses and Relevant Hospital Course: Active Hospital Problems Diagnosis ??? Ileus ??? Right upper quadrant abdominal pain ??? Acute calculous cholecystitis ??? History of gastroschisis Resolved Hospital Problems No resolved problems to display. 34F with a history of gastroschisis with multiple exploratory laps who was admitted for acute acalculous cholecystitis and illeus requiring open cholecystectomy with small bowel resection/repair by general surgery. Patient completed a course of antibiotics. No post surgical complications. Patient wa lking, moving bowels, urinating and diet was advanced as tolerated with no issues. Right abdominal drain had adequate output and incision was clean, dry, and intact. Surgery removed drain on day of discharge and instructed to keep drain site covered and dry for 48 hours. Instructed patient to follow up with PCP for elevated blood pressure during hospital stay likely stress/pain related. Prescribed 10 pills of Marta and Discussed with the patient the risks of dependence that may occur with the use of opioids. This discussion included education that using opioids increases the risk of addiction and overdose. It is dangerous to take opioid drugs with alcohol, benzodiazepines, and other central nervous system depressants. This prescription has been deemed necessary to help with pain symptoms, and alternative treatments were discussed. Also discussed specifically the highly addictive nature of the controlled dangerous substance, the risk of developing a dependence on the controlled dangerous substance, and the risks of taking more opioids than prescribed or mixing sedatives, benzodiazepines, or alcohol can result in fatal respiratory depression. Will discharge home at this time. Nutritional status and in-house recommendations: Current Diet and/or Nutritional Supplementation ordered: DIET DIABETIC Discharge medications and new prescriptions: Medication List START taking these medications oxyCODONE 5 mg tablet Commonly known as: ROXICODONE Take 1 Tablet (5 mg) by mouth every 8 hours as needed for severe pain. Max Daily Amount: 3 tablets Signed by: Jackson Crenshaw MD Quantity: 10 Tablet Refills: 0 CONTINUE taking these medications albuterol sulfate 90 [...] 1 Tablet (150 mg) by mouth daily instructional technologist. Signed by: Francis Pereyra MD Quantity: 30 Tablet Refills: 0 cetirizine 10 mg tablet Commonly known as: ZyrTEC Take 10 mg by mouth daily. Refills: 0 IMPLANON SDRM by Subdermal route. Refills: 0 metFORMIN 500 mg tablet Commonly known as: GLUCOPHAGE 2 times daily. Refills: 0 pantoprazole 40 mg Tablet, Delayed Release (E.C.) Commonly known as: PROTONIX Take 1 Tablet (40 mg) by mouth daily. Signed by: Jena Cerda MD Quantity: 60 Tablet Refills: 2 rosuvastatin 40 mg tablet Commonly known as: CRESTOR Take 40 mg by mouth daily at bedtime. Refills: 0 sertraline 100 mg tablet Commonly known as: ZOLOFT Take 100 mg by mouth daily. Refills: 0 Where to Get Your Medications These medications were sent to [address] [place] [id number] Hours: Thursday-Thursday: 8 a.m. - 8 p.m., Thursday: 9 a.m. - 5 p.m., Thursday: 10 a.m. - 4 p.m. ?? oxyCODONE 5 mg tablet Consultants: IP CONSULT TO HOSPITALIST IP CONSULT TO GENERAL SURGERY Brief Synopsis of Diagnostic Studies This Admission (Please see full report for details): CT Abd/pelvis w contrast US abdomen MRI MRCP Discharge Lab Data (Please note date of lab as some may have preceeded admission) Lab Results Component Value Date/Time WBC 7.4 11/07/2019 08:17 AM HEMOGLOBIN 12.8 11/07/2019 08:17 AM HEMATOCRIT 38.9 11/07/2019 08:17 AM PLATELETS 269 11/07/2019 08:17 AM SODIUM 138 11/07/2019 08:17 AM CHLORIDE 101 11/07/2019 08:17 AM POTASSIUM 3.5 11/07/2019 08:17 AM CO2 22 11/07/2019 08:17 AM BUN 8 11/07/2019 08:17 AM CREATININE 0.41 (L) 11/07/2019 08:17 AM GLUCOSE 134 (H) 11/07/2019 08:17 AM AST 44 (H) 11/07/2019 08:17 AM ALT 71 (H) 11/07/2019 08:17 AM Discharge Exam: BP (!) 145/95 (BP Location: Right arm, Patient Position (BP): Supine) Pulse 83 Temp 98.1 ??F (36.7 ??C) (Oral) Resp 18 Ht 5' 6 (1.676 m) Wt 111.1 kg (245 lb) SpO2 97% No BMI 39.54 kg/m?? Last documented weight: Weight: 111.1 kg (245 lb) (11/01/19 0535) Physical Exam: General alert, cooperative, no distress, appears stated age Lungs clear to auscultation bilaterally Heart regular rate and rhythm, S1, S2 normal, no murmur, click, rub or gallop Abdomen Tenderness mild - in the RUQ which has improved Extremities Normal, no edema Skin Skin color, texture, turgor normal. No rashes or lesions Discharge Condition: improving. Activity: no driving while on analgesics. Diet: Diabetic diet (specify calories / restrictions) Wound Care: Wound care per specialist Primary Emergency Contact: Extended Emergency Contact Information Primary Emergency Contact: phelan onur Address: [address] [place] [address] Mobile Relation: Spouse Signed: Jackson Crenshaw MD 11/08/2019, 8:18 AM Associated attestation - Minal Arnold MD - 11/09/2019 4:53 PM CDT [facility] Adult Hospitalist Attending Note I reviewed the medical record including the resident???s note (Dr Crenshaw) (available as hyperlink below). I was present with the resident and participated during the history and physical examination ofthe patient on 11/08/2019. The laboratory findings and assessment and plan was reviewed with the resident. I also performed the critical or barreto portion(s) of the service as documented below, and was directly involved in the management of the patient and supervised the care provided. Feeling a little sore after drain pulled this morning, but tolerating diet and feeling well otherwise. I have reviewed the physical exam findings in the resident???s note; my notable physical exam findings include: Abd Incision with salome overlying, no surrounding erythema or drainage. Abdominal binder in place. I have reviewed the labs that were obtained over the last 24 hours. Notable amendments to the assessment and plan include: Active Hospital Problems Diagnosis Ileus Right upper quadrant abdominal pain Acute calculous cholecystitis History of gastroschisis Resolved Hospital Problems No resolved problems to display. Acute calculous cholecystitis - s/p cholecystectomy, continue post-op care per surgery, follow-up with general surgery in 2 weeks in clinic. PCP follow-up. Education provided regarding opiates - do not take more than directed, try to use the lowest dose/frequency possible, and made patient aware of additive potential. Patient is also aware to not drive while taking this medication and to store in a safe place. This dose was used while admitted withoutdifficulty or apparent adverse effect. See resident note for additional details. Nutrition: Current Diet and/or Nutritional Supplementation ordered: DIET DIABETIC Minal Arnold MD 11/08/2019 1:24 PM [facility] Approximately 25 minutes was spent in the care of this patient today; more than 50% was spent in counseling and coordination of care (patient/family conference, nursing conference and/or discussion with consultants). This patient is covered by internal medicine residents; per ACGME guidelines residents must write orders for patients under their care, with appropriate supervision by the attending physician . Please contact the attending physician on covered patients only if you are unable to reach the resident,or if you have an emergency. To reach Internal Medicine covered patients: Thursday-Thursday 7 AM- 7 PM: Please contact the resident via secure chat. The resident responsible for the patient will be on the Treatment Team listed as Resident If no response you may call the immigration inspector environmental intern at zone phone [phone]. If no response you may call the immigration inspector senior resident at zone phone [phone] If no response please contact the attending of record via secure chat. 7 PM to 7 AM: The long call/night float resident should be listed as Resident on the treatment team and can be reached via secure chat. If no response you may call the immigration inspector environmental intern at zone phone [phone]. If no response you may call the immigration inspector senior resident at zone phone [phone] Thursday and Thursday: 7 AM-12 PM: Please contact the resident via secure chat. The resident responsible for the patient will be on the Treatment Team listed as Resident 12 PM-7 AM: The long call/night float resident should be listed as Resident on the treatment teamand can be reached via secure chat. If no response call the immigration inspector environmental intern at zone phone [phone]. If no response you may call the immigration inspector senior resident at zone phone [phone] If no response please contact the Rapid Access Hospitalist via secure chat. documented in this encounter Discharge Instructions * Discharge Instructions* Jackson Crenshaw MD - 11/08/2019 7:55 AM CDT This is to certify that Lis Phelan was hospitalized from 11/01/2019 to 11/08/2019and cannot drivea car or return to work operate hazardous machinery or get on a ladder until further notice. It is expected for the patient to return in follow up with the department within the next 1-2 weeks. Please call the office the day of discharge or next working day [phone] If you need to reach a surgeon when the office is closed then, call the hospital local telephone operator at [phone] to contact the trauma surgeon immigration inspector. We will try to get back to you as soon as possible that day or evening. If the question is significant or bothersome enough, you simply need to return tothe Emergency Room You can not drive a car or work around hazardous machinery while you are taking narcotics You may shower 48 hours after surgery You may take your dressings off 48 hours after surgery You may place ice on the wound (ice bag not direct contact) for 20 minutes and take the ice off for20 minutes and repeat as often as needed for pain control Keep you wound(s) clean and dry If there are sutures or salome on your incision then clean you wounds twice a day with hydrogen peroxide and apply a thin layer of neosporin ointment. When you shower put a glob of neosporin on yourwound -if you have sutures in place- to act as a water barrier, then after your shower wipe off theneosporin, and clean your wound and repeat the thin layer of neosporin. Take your temperature twice daily Avoid your clothes from rubbing on your incisions Pat your incisions dry after you shower or get them wet Take your temperature twice daily Resume all your previous home medications Do not duplicate pain medications/narcotics with narcotics you may have been taking previously Do not go into swimming pools, oceans,carlson or streams the first month post op You should take senna and aida lax twice a day until you get back into your normal diet and activity. You may need to add MOM, Magnesium Citrate, Dulcolax suppository, or an enema You may not lift pull push or shove greater than 20-30 lbs the first month after your surgery, you will then be able to increase what you lift pull push or shove by 3-5 lbs per week not to exceed 12-15 lbs per month, so that by the end of your second month after surgery you should be able to lift up to 45 lbs, continue this process until your third month after surgery when all restrictions are removed. Your wound will be at its maximal strength which is only 80% of the original strength. Wound infections generally do not show up for 7-10 days post operatively If you have a wound infection the wound is generally red and warm there may be white or green drainage, it may be more tender to touch. Sometimes the wound is just more tender and has no redness (this is particularly true for appendectomy incisions) You need to call for your follow up appointment [phone] on the day of discharge or the following working day. The office is closed on Saturdays, Sundays and hol. You need to go to the ED should you develop any sign of wound infection especially if it is after hours or the office is closed, OR if you have a temperature of 101 by mouth, develop protracted nausea and vomiting, have worsening of pain not related to increase in your activities, progressive abdomi nal distention, chest pain or swelling and tenderness in your calf(calves) Your pain medications are expected to last you @ two weeks. Pain medications are not called into any pharmacy, so if you are having increased pain and feel that you need to take more pain medication than you have been prescribed you will need to be seen earlier. Pain medications lost or stolen willnot be replaced. My Kryst[employer] Sign Up Instructions Step 1 How Do I sign Up? - In your Internet browser, go to [email or web address] and click CREATE ACCOUNT - Enter information about yourself (name, e-mail address, date of , etc...) In the future we will use your e-mail address to notify you when information is added to your [employer] record, such asmedical test results. - Create a user ID and PASSWORD . Each must include at least 8 characters - letters and numbers. - Complete the CHALLENGE questions. - Enter the answer to the VERIFICATION QUESTION. - Read and check the TERMS AND CONDITIONS. - Click CONTINUE Step 2 - Welcome - If all information you entered in STEP does not match what is in your patient record, you will need to enter a health insurance number or a billing account number or an access code to complete the registration process - Health Insurance Number - This Is the member identification number displayed on your insurance IDcard - Billing Account Number - This is the account number that appears at the top of your Works[employer] statement - If the number you enter matches what is in your patient record, your registration will be complete and you can begin using [employer] - Finally, Verify your E-mail Address. Once the information you entered is matched to your Works[employer] electronic health record, an e-mail validation message will be sent to the e-mail address you provided. Please click on the link in the e-mail in order to verify your e-mail address. NOTE: Until you click the link in the e-mail validation message, you will see an alert each time you sign into [employer] Solution[employer]inding you to verify your e-mail address Returning to [employer] in the future - Go to [email or web address] and simply enter your user ID and password If you have any questions or need additional assistance call us at during normal business hours WE STRONGLY ENCOURAGE YOU TO SEND MESSAGES TO Dr. Allan Wheeler who was your surgeon Always in case of an emergency call 911 Your discharging physicians are Minal Arnold MD /Jackson Crenshaw MD and may be reached at [phone] for any questions or concerns until you see your primary care physician. FOLLOW-UP Follow up with Francis Pereyra MD within 7 days of discharge. This post hospital follow up visitpresents a critical opportunity to address the conditions that precipitated your hospitalization and to review the new medications prescribed to your during your stay. PRESCRIPTIONS GIVEN? Escribed SELF CARE: getting rest, eating well and increasing your activity appropriately are all excellent ways to return to your usual state of health prior to this hospital stay. ACTIVITY: Your activity level is: As above. You may return to work/school: When follow up with surgery DIET Your diet is: as tolerated. WOUND CARE: as per surgery documented in this encounter Medications at Time of Discharge Medication Sig Dispensed Refills Start Date End Date cetirizine (ZyrTEC) 10 mg tablet Take 10 mg by mouth daily. buPROPion HCL (Wellbutrin XL) 150 mg Extended Release 24 hour tabletIndications:Moder ate episode of recurrent major depressive disorder,Generalized anxiety disorder Take 1 Tablet (150 mg) by mouth daily instructional technologist. 30 Tablet 08/29/2019 01/06/2020 ALPRAZolam (XANAX) 0.25 mg tabletIndications:Moder ate episode of recurrent major depressive disorder,Generalized anxiety disorder Take 1 Tablet (0.25 mg) by mouth 2 times daily as needed for Anxiety. 15 Tablet 08/29/2019 03/07/2021 rosuvastatin (CRESTOR) 40 mg tablet Take 40 mg by mouth daily at bedtime. 07/20/2020 sertraline (ZOLOFT) 100 mg tablet Take 100 mg by mouth daily. 01/06/2020 albuterol HFA 90 mcg inhalerIndications:Mild intermittent asthma without complication Take 1-2 Puffs by inhalation every 4 hours as needed for Shortness of Breath or Wheezing. 6.7 Gram 3 07/19/2019 07/20/2020 metFORMIN (GLUCOPHAGE) 500 mg tablet 2 times daily. 01/06/2020 pantoprazole (PROTONIX) 40 mg Tablet, Delayed Release (E.C.) Take 1 Tablet (40 mg) by mouth daily. 60 Tablet 2 05/20/2019 01/06/2020 documented as of this encounter Progress Notes * Sherrell Cole MD - 11/08/2019 7:59 AM CDT [facility] GENERAL SURGERY 11/08/2019 Sherrell Cole MD HPI: 34 y.o. s/p open cholecystectomy on November 02 and with the following diagnoses: Active Hospital Problems Diagnosis ??? Ileus ??? Right upper quadrant abdominal pain ??? Acute calculous cholecystitis ??? History of gastroschisis Resolved Hospital Problems No resolved problems to display. Complaints/24H Events: Continued to ambulate in hallway EMILIA overnight, AVSS Review of Systems: As per HPI otherwise negative VITALS: Blood pressure (!) 145/95, pulse 83, temperature 98.1 ??F (36.7 ??C), temperature source Oral, resp. rate 18, height 5' 6 (1.676 m), weight 111.1 kg (245 lb), SpO2 97 %, not currently . EXAM: Gen: NAD, sitting upright in bed Neuro: A&Ox3 HEENT: WNL Heart: Regular rate Lungs: Non-labored respirations on room air Abdomen: Soft, right upper quadrant incision c/d and intact with salome RLQ LENA drain with serosanguinous contents Ext: Warm, no edema, good pulses LABS/IMAGING: Reviewed; last labs 11/06 A/P: This is a 34 y.o. s/p open cholecystectomy and has recovered appropriately and is stable for discharge. OK for d/c home today Drain removed at bedside; patient counseled to keep drain site covered and dry for 48 hours - Nutrition: Current Diet and/or Nutritional Supplementation ordered: DIET DIABETIC I have reviewed this patient's history and physical, family history, acute and chronic diagnoses, all pertinent notes, vitals, labs, medications and images during my development of the above assessment and plan. Disposition: OK for d/c home Sherrell Cole MD, 11/08/2019 8:00 AM *If unable to reach me, please call the local telephone operator and ask for the On-Call Trauma Surgeon* Associated attestation - Lorna Fontenot MD - 11/08/2019 1:53 PM CDT Agree with below as noted by the resident. In addition I note: Adult woman, recovering well from surgery. Exam: New [place] in place, will need to be removed at follow-up incision within the next 2 weeks. A/P: 34-year-old woman status post open cholecystectomy for acute cholecystitis. Patient recoveringwell following surgery okay to discharge home today. she will follow-up in trauma/general surgery clinic as scheduled for removal of salome. I certify that I have independently seen and examined this patient reviewed the patient's HPI, labs, xrays, and evaluated the nutrition consultant's notes and agree with the assessment as documented below. I have spent no less than 30 minutes involved in the care and evaluation of the patient; >50% ofthis time was spent in counseling and/or coordination of care for this patient. Lorna Fontenot MD - Trauma and Acute Care Surgery - Pager: [phone] *If unable to reach me, please call the local telephone operator and ask for the On-Call Trauma Surgeon* * Kiana Gill, Occupational Therapist - 11/07/2019 10:08 AM CDT Patient/Regional Intermodal Truck Driver Visit Coordinated with health care team to facilitate communication between patient and family/support person. Patient declined video/phone conference. Patient declined further assistance with family support person communication. Kiana Gill, KELLEN, OTR/L Pediatric Occupational Therapist [facility] [place] [address] [facility] [place] [address] * Jackson Crenshaw MD - 11/07/2019 9:17 AM CDT [facility] Resident Progress Note Patient Name: Lis Phelan Supervising Resident: Josafat Attending Physician: Ashley Helms MD Primary Care Provider: Francis Pereyra MD Date of Admission: 11/01/2019 Date of Service: 11/07/2019 Length of Stay: LOS: 5 days Previous history of present illness and review of systems have been reviewed today as documented inthe H&P on 11/01/2019; medications, labs, studies, notes, orders and consults have been reviewed. I have reviewed the notes from admission. 34 F born with Gastroschisis with multiple ex laps admitted for cholecystitis requiring open pipe w small bowel resection on 11/03. Assessment and Plan: Active Problems: Acute Calculous Cholecystitis s/p open cholecystectomy w/ small bowel resection/repair 11/03 -POD 4; having bowel movements; urinating; walking and using incentive spirometer; R abd drain in place - Zosyn - Marta/tylenol for pain control - Surgery plans to advance diet as tolerated and anticipate removal of abd drain in AM and possibledc New Onset HTN -likely pain related; Cont to monitor Diabetes mellitus without residential use of Insulin ?? CERTIFIED NEURODIAGNOSTIC TECHNOLOGIST meformin held during hospital stay; Correctional slide and accu checks Chronic/Stable/Resolved Problems: GERD- Eosinophilic Esophagitis - Continue CERTIFIED NEURODIAGNOSTIC TECHNOLOGIST PPI ?? Hx Biliary Dyskinesia - HIDA scan reported EF 25% 04/2019 from [facility] in [place], [place] - Surgery consulted, appreciate recommendations ?? 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 Obesity BMI 40.35 Nutrition: Current Diet and/or Nutritional Supplementation ordered: DIET CLEAR LIQUID Quality/Safety/Core Measures/Disposition Planning: DVT PRX:Enoxaparin Indwelling Lines/Devices: Peripheral IV Ordonez: absent; reason: N/A Patient's activity prior to admission: independent Patient lives with their family in a single family home PT and OT: Yes Code Status: Full Code Current Planned Disposition - Home which I anticipate will be completed 2-3 days Subjective/Overnight Pain significantly improved and controlled without SCOURING PADS SUPERVISOR. Tolerating clear liquids in AM and drain out put acceptable. No subjective complaints at this time. Objective BP (!) 148/88 (BP Location: Right arm, Patient Position (BP): Sitting) Pulse 99 Temp 98.9 ??F (37.2 ??C) (Oral) Resp 18 Ht 5' 6 (1.676 m) Wt 111.1 kg (245 lb) SpO2 97% No BMI 39.54 kg/m?? Temp (24hrs), Av.1 ??F (36.7 ??C), Min:97.3 ??F (36.3 ??C), Max:98.9 ??F (37.2 ??C) Moderate amount stool (11/07/19 0228) Exam: Gen alert, cooperative, no distress, appears stated age Lungs clear to auscultation bilaterally Heart regular rate and rhythm, JVP absent, S1, S2 normal, no murmur, click, rub or gallop Abdomen soft, tender RUQ. Bowel sounds normal. No masses, No organomegaly Extremities extremities normal, atraumatic, no cyanosis or edema Mental Status A& O x 3 Data: I have reviewed all new labs and studies resulted and pertinent ones are noted below CBC: Recent Labs 11/05/19 0705 11/06/19 0637 11/07/19 0817 WBC 10.9* 9.4 7.4 HGB 12.7 11.8 12.8 HCT 39.7 36.3 38.9 PLT 239 254 269 MCV 96.1 92.8 93.1 BMP: Recent Labs 11/07/19 0817 NA 138 K 3.5 CL 101 CO2 22 ANIONGAP 15 CA 9.1 GLUCOSE 134* BUN 8 CREAT 0.41* Jackson Crenshaw MD 11/07/2019 9:17 AM I discussed the assessment of plan for the above patient with Ashley Pinto MD This note was transcribed using TVTY computerized voice recognition without a human ham clerk. This report may or may not have been adjusted for typographical, grammaticaland syntax errors. This patient is covered by internal medicine residents To reach Internal Medicine covered patients: Thursday-Thursday 7 AM- 7 PM: Please contact the resident via secure chat. The resident responsible for the patient will be on the Treatment Team listed as Resident If no response you may call the immigration inspector environmental intern at zone phone [phone]. If no response you may call the immigration inspector senior resident at zone phone [phone] If no response please contact the attending of record via secure chat. 7 PM to 7 AM: The long call/night float resident should be listed as Resident on the treatment team and can be reached via secure chat. If no response you may call the immigration inspector environmental intern at zone phone [phone]. If no response you may call the immigration inspector senior resident at zone phone [phone] If no response please contact the Rapid Access Hospitalist via secure chat Thursday and Thursday: 7 AM-12 PM: Please contact the resident via secure chat. The resident responsible for the patient will be on the Treatment Team listed as Resident 12 PM-7 AM: The long call/night float resident should be listed as Resident on the treatment teamand can be reached via secure chat. If no response call the immigration inspector environmental intern at zone phone [phone]. If no response you may call the immigration inspector senior resident at zone phone [phone] If no response please contact the Rapid Access Hospitalist via secure chat Associated attestation - Ashley Helms MD - 11/07/2019 2:59 PM CDT [facility] Note I reviewed the medical record including the resident???s note (Dr Crenshaw) (available as hyperlink below). I discussed with the resident and participated during the history and physical examination of the patient on 11/07/2019. The laboratory findings and assessment and plan was reviewed with the resident. I also performed the critical or barreto portion(s) of the service as documented below, and was directly involved in the management of the patient and supervised the care provided. Feeling much better since NGT removed. Having BMs. Just started clears - denies any nausea or vomiting I have reviewed the physical exam findings in the resident???s note; my notable physical exam findings include: gen Alert and cooperative abd Soft, post operative with RUQ drain present; bowel sounds present I have reviewed the labs that were obtained over the last 24 hours. Notable amendments to the assessment and plan include: Active Hospital Problems Diagnosis Ileus Right upper quadrant abdominal pain Acute calculous cholecystitis History of gastroschisis Resolved Hospital Problems No resolved problems to display. Acute calculous cholecystitis - s/p open pipe with extensive adhesiolysis and small bowel resection 11/03/19. Advance diet as tolerated and likely home in the am after drain is removed. See resident note for additional details. Nutrition: Current Diet and/or Nutritional Supplementation ordered: DIET DIABETIC Ashley Helms MD 11/07/2019 2:52 PM [facility] Approximately 30 minutes were spent in the care of this patient today; more than 50% was spent in counseling and coordination of care (patient/family conference, nursing conference and/or discussion with consultants). This patient is covered by internal medicine residents; per ACGME guidelines residents must write orders for patients under their care, with appropriate supervision by the attending physician . Please contact the attending physician on covered patients only if you are unable to reach the resident,or if you have an emergency. To reach Internal Medicine covered patients: Thursday-Thursday 7 AM- 7 PM: Please contact the resident via secure chat. The resident responsible for the patient will be on the Treatment Team listed as Resident If no response you may call the immigration inspector environmental intern at zone phone [phone]. If no response you may call the immigration inspector senior resident at zone phone [phone] If no response please contact the attending of record via secure chat. 7 PM to 7 AM: The long call/night float resident should be listed as Resident on the treatment team and can be reached via secure chat. If no response you may call the immigration inspector environmental intern at zone phone [phone]. If no response you may call the immigration inspector senior resident at zone phone [phone] Thursday and Thursday: 7 AM-12 PM: Please contact the resident via secure chat. The resident responsible for the patient will be on the Treatment Team listed as Resident 12 PM-7 AM: The long call/night float resident should be listed as Resident on the treatment teamand can be reached via secure chat. If no response call the immigration inspector environmental intern at zone phone [phone]. If no response you may call the immigration inspector senior resident at zone phone [phone] If no response please contact the Rapid Access Hospitalist via secure chat. * Sherrell Cole MD - 11/07/2019 6:29 AM CDT [facility] 11/07/2019 Sherrell Cole MD HPI: 34 y.o. s/p open cholecystectomy with small bowel resection and stapled [id number] anastomosis on November 02. November 05: NGT d/c Active Hospital Problems Diagnosis ??? Ileus ??? Right upper quadrant abdominal pain ??? Acute calculous cholecystitis ??? History of gastroschisis Resolved Hospital Problems No resolved problems to display. Complaints/24H Events: Normal WBC Did well with NGT, d/c on 11/05 around 1730 BMx1 overnight States pain is improving, walking more Review of Systems: As per HPI otherwise negative VITALS: Blood pressure (!) 149/84, pulse 96, temperature 98.4 ??F (36.9 ??C), temperature source Oral, resp. rate 20, height 5' 6 (1.676 m), weight 111.1 kg (245 lb), SpO2 95 %, not currently . EXAM: Gen: Obese female resting in bed Neuro: A&Ox3 HEENT: WNL Heart: Regular rate Lungs: Non-labored respirations on room air Abdomen: Soft, not tympanitic No rebound, no guarding RUQ incision site c/d and intact with salome; RLQ bulb suction drain with scant serosanguinous fluid Ext: Warm, no cyanosis LABS/IMAGING: Reviewed A/P: This is a 34 y.o. female with surgical history significant for gastroschisis who is now s/p open cholecystectomy with small bowel resection on November 02 who is stable to start advancing her diet. OK to advance to a clear liquid diet If patient does well with clears for breakfast, may have a regular diet for lunch and dinner IV morphine now d/c, pain regimen: marta prn/Tylenol Continue to encourage ambulation, PT/OT, and pulmonary toilet with IS The patient should d/c home with her IS - Nutrition: Current Diet and/or Nutritional Supplementation ordered: DIET NPO I have reviewed this patient's history and physical, family history, acute and chronic diagnoses, all pertinent notes, vitals, labs, medications and images during my development of the above assessment and plan. Disposition: Likely d/c home on 11/07 after advancing diet today Will d/c drain on AM of 11/07 after evaluating contents when patient is taking in PO Sherrell Cole MD, 11/07/2019 6:30 AM *If unable to reach me, please call the local telephone operator and ask for the On-Call Trauma Surgeon* Associated attestation - Lorna Fontenot MD - 11/07/2019 2:16 PM CDT Agree with below as noted by the resident. In addition I note: No acute events overnight. Patient is tolerating clear liquid diet with no nausea or vomiting. Pain is well controlled. Having adequate return of bowel and bladder function. Exam: Abdomen soft, nontender, nondistended. Incision is clean, dry, intact with salome in place. Drain is putting out modest amount of serosanguineous fluid, no obvious bile. A/P: 34-year-old woman status post open cholecystectomy with small bowel resection. NG tube removedand patient is tolerating liquid diet, okay to advance as tolerated later today. Pain is well controlled, anticipate discharge in the next 1 to 2 days provided patient continues to tolerate a regulardiet. I certify that I have independently seen and examined this patient reviewed the patient's HPI, labs, xrays, and evaluated the nutrition consultant's notes and agree with the assessment as documented below. I have spent no less than 35 minutes involved in the care and evaluation of the patient; >50% ofthis time was spent in counseling and/or coordination of care for this patient. Lorna Fontenot MD - Trauma and Acute Care Surgery - Pager: [phone] *If unable to reach me, please call the local telephone operator and ask for the On-Call Trauma Surgeon* * Ashley Helms MD - 11/06/2019 2:13 PM CDT [facility] Admit Date: 11/01/2019 Date of Note: 11/06/2019, 2:13 PM LOS: 4 days Previous history of present illness and review of systems have been reviewed today as documented inthe H&P on 11/01/2019; medications, labs, studies, notes, orders and consults have been reviewed. I have reviewed the notes from yesterday. Subjective: Feeling a bit better today - small amount of flatus this morning; tolerating clamped NGT; has been up and walking this morning Objective: BP (!) 174/99 (BP Location: Right arm, Patient Position (BP): Sitting) Pulse (!) 108 Temp 98 ??F (36.7 ??C) (Oral) Resp 20 Ht 5' 6 (1.676 m) Wt 111.1 kg (245 lb) SpO2 94% BreastfeedingNo BMI 39.54 kg/m?? Temp (24hrs), Av.7 ??F (36.5 ??C), Min:97.3 ??F (36.3 ??C), Max:98.2 ??F (36.8 ??C) (passing gas) (11/06/19 1200) Exam: Gen Alert and cooperative Lungs BCTA Heart RRR Abdomen Soft, post operative, audible bowel sounds Extremities BLE without edema Data Base: I have reviewed all new labs and studies resulted and pertinent ones are noted below Assessment/Plan of Actively Managed Problems Patient is a 34 year old female with with hx of gastroschisis, previous ex laps who presents with cholelithiasis -s/p open pipe with extensive adhesiolysis and small bowel resection 11/03/19 -await return of bowel function (post operative ileus), drain and NGT management per surgery -d/c SCOURING 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 Current Planned Disposition - anticipate home at discharge; possible discharge in the next 48-72 hours More than 30 minutes were spent in the care of this patient today; more than 50% was spent in discussion of expected course of disease, discussion of prognosis, discharge planning, coordination of care and discussion of lab and test results. Ashley Helms MD * Sherrell Cole MD - 11/06/2019 10:37 AM CDT [facility] 11/06/2019 Sherrell Cole MD HPI: 34 y.o. s/p open cholecystectomy with small bowel resection and stapled [id number] anastomosis on November 02. Active Hospital Problems Diagnosis ??? Ileus ??? Right upper quadrant abdominal pain ??? Acute calculous cholecystitis ??? History of gastroschisis Resolved Hospital Problems No resolved problems to display. Complaints/24H Events: Reported 600cc from NGT overnight, total 1000; however, patient states she is passing gas this AM Adequate UOP Ambulated in hallway on 11/04 Review of Systems: As per HPI otherwise negative VITALS: Blood pressure (!) 156/92, pulse (!) 102, temperature 97.3 ??F (36.3 ??C), resp. rate 20, height 5'6 (1.676 m), weight 111.1 kg (245 lb), SpO2 98 %, not currently . EXAM: Gen: Obese female in NAD, resting in bed Neuro: A&Ox3 No focal deficits HEENT: WNL Heart: Rapid rate Lungs: Non-labored respirations on room air Abdomen: RUQ incision c/d and intact with salome LENA drain on right side at skin with clot at skin level, stripped; serosanguinous output Ext: Warm LABS/IMAGING: Reviewed A/P: This is a 34 y.o. s/p open cholecystectomy with small bowel resection on November 02 who is now passing small amounts of gas and increasing her activity. Trial NGT clamped/taken off suction this AM; leave in place Continue NPO with IVF LENA drain to remain in place until able to assess output when patient is taking PO Encourage ambulation/patient needs to be OOB to chair I have reviewed this patient's history and physical, family history, acute and chronic diagnoses, all pertinent notes, vitals, labs, medications and images during my development of the above assessment and plan. Disposition: Continue floor care Sherrell Cole MD, 11/06/2019 10:37 AM *If unable to reach me, please call the local telephone operator and ask for the On-Call Trauma Surgeon* Associated attestation - Allan Wheeler MD - 11/06/2019 12:07 PM CDT I attest that I was present and supervised resident, Dr. Cole and agree with their evaluation, assessment, and plan of care with my comments as below. I also conducted my own independent examination and then directed the evaluation,and management of this patient based on a thorough exam,with review of pertinent labs, xrays, including recommendations of consultants for the clinical direction of the care and treatment of the patient. This management was discussed with resident, Dr Cole and I was present during the critical portion of the examination. I have spent no less than 30 minutes involved in the care and evaluation, including review of labs, xrays and history of this patient. This is excluding any procedures NG is not clamped but not on suction she feels ok she thinks she may have had some flatus, she doeshave some hypoactive bowel sound LENA is scant and serous. Imagine NG out tomorrow and clears she has certainly increased activity and is showing more improvement. I again offer to call her or family but she said that's ok. I d/w her post op activityand limitations and planned f/u already. D/W Dr Cole as well. F/u 2 weeks instructions in chart. Nutrition: Current Diet and/or Nutritional Supplementation ordered: DIET NPO ALLAN WHEELER MD * Ashley Helms MD - 11/05/2019 12:57 PM CDT [facility] Admit Date: 11/01/2019 Date of Note: 11/05/2019, 12:58 PM LOS: 3 days Previous history of present illness and review of systems have been reviewed today as documented inthe H&P on 11/01/2019; medications, labs, studies, notes, orders and consults have been reviewed. I have reviewed the notes from yesterday. Subjective: Post operative pain is better controlled; NGT clamped and currently without nausea or vomiting. No flatus or BM yet Objective: BP (!) 149/93 (BP Location: Right arm, Patient Position (BP): Supine) Pulse 86 Temp 97.9 ??F (36.6 ??C) (Oral) Resp 16 Ht 5' 6 (1.676 m) Wt 111.1 kg (245 lb) SpO2 98% No BMI 39.54 kg/m?? Temp (24hrs), Av.1 ??F (36.7 ??C), Min:97.5 ??F (36.4 ??C), Max:98.9 ??F (37.2 ??C) Exam: Gen Alert and cooperative Lungs BCTA Heart RRR Abdomen Post operative, drain present, no audible bowel sounds Extremities BLE without edema Data Base: I have reviewed all new labs and studies resulted and pertinent ones are noted below Assessment/Plan of Actively Managed Problems Patient is a 34 year old female with with hx of gastroschisis, previous ex laps who presents with cholelithiasis -s/p open pipe with extensive adhesiolysis and small bowel resection 11/03/19 -await return of bowel function (post operative ileus), drain and NGT management per surgery -wean SCOURING PADS SUPERVISOR as tolerated -GERD - continue iv ppi -depression - continue PO meds as tolerated Nutrition: Current Diet and/or Nutritional Supplementation ordered: DIET NPO DVT Prophylaxis - Enoxaparin Ordonez catheter:present Lines: Peripheral IV PT/OT:no Current Code Status -Full Code Plan discussed with the patient, questions answered. Current Planned Disposition - anticipate home at discharge; discharge date unknown More than 30 minutes were spent in the care of this patient today; more than 50% was spent in discussion of expected course of disease, discussion of prognosis, discharge planning, coordination of care and discussion of lab and test results. Ashley Helms MD * Allan Wheeler MD - 11/05/2019 8:52 AM CDT [facility] 11/05/2019 ALLAN WHEELER MD HPI: 34 y.o. s/p open cholecystectomy on November 02. Active Hospital Problems Diagnosis ??? Right upper quadrant abdominal pain ??? Acute calculous cholecystitis ??? History of gastroschisis Resolved Hospital Problems No resolved problems to display. Complaints: Pain overnight requiring morphine SCOURING PADS SUPERVISOR LFTs WNL 11/04/2019 AM Review of Systems: As per HPI otherwise negative VITALS: Blood pressure (!) 149/87, pulse 96, temperature 98 ??F (36.7 ??C), temperature source Oral, resp. rate 14, height 5' 6 (1.676 m), weight 111.1 kg (245 lb), SpO2 100 %, not currently . EXAM: Gen: Uncomfortable in bed Neuro: A&Ox3 HEENT: WNL Heart: Regular rate Lungs: Non-labored respirations on room air Abdomen: Soft, non-distended Wound is CDI RLQ drain in place with serosanguinous, slightly yellow, tinge down to 45 cc form over 235 pod 1 (11/03/2019) Ext: Warm, no edema, good pulses 1000 out in urine. LABS/IMAGING: Reviewed A/P: This is a 34 y.o. s/p laparoscopic cholecystectomy for symptomatic cholelithiasis on November 02. Maintain NPO with IV Encourage pulmonary toilet with IS Ambulate with PT/OT, OOB to chair today got up to commode 11/03 Ordonez to stay in until AM of POD 2 ord d/c today 5/16 - Nutrition: Current Diet and/or Nutritional Supplementation ordered: DIET NPO I have reviewed this patient's history and physical, family history, acute and chronic diagnoses, all pertinent notes, vitals, labs, medications and images during my development of the above assessment and plan. Disposition: Continue inpatient care ALLAN WHEELER MD, 11/05/2019 8:52 AM *If unable to reach me, please call the local telephone operator and ask for the On-Call Trauma Surgeon* * Flores Ruelas, Physical Therapist - 11/04/2019 11:50 AM CDT Patient/Regional Intermodal Truck Driver Visit Coordinated with health care team to facilitate communication between patient and family/support person. Patient declined video/phone conference. Will continue to provide support via Patient/Regional Inter[employer] Truck Driver rounding. * Sherrell Cole MD - 11/04/2019 8:59 AM CDT [facility] 11/04/2019 Sherrell Cole MD HPI: 34 y.o. s/p open cholecystectomy on November 02. Active Hospital Problems Diagnosis ??? Right upper quadrant abdominal pain ??? Acute calculous cholecystitis ??? History of gastroschisis Resolved Hospital Problems No resolved problems to display. Complaints: Pain overnight requiring morphine SCOURING PADS SUPERVISOR LFTs WNL this AM Review of Systems: As per HPI otherwise negative VITALS: Blood pressure (!) 144/86, pulse 78, temperature 97.6 ??F (36.4 ??C), temperature source Oral, resp. rate 15, height 5' 6 (1.676 m), weight 111.1 kg (245 lb), SpO2 98 %, not currently . EXAM: Gen: Uncomfortable in bed Neuro: A&Ox3 HEENT: WNL Heart: Regular rate Lungs: Non-labored respirations on room air Abdomen: Soft, non-distended RUQ dressing in place RLQ drain in place with serosanguinous, slightly yellow, tinge Ext: Warm, no edema, good pulses LABS/IMAGING: Reviewed A/P: This is a 34 y.o. s/p laparoscopic cholecystectomy for symptomatic cholelithiasis on November 02. Maintain NPO with IV Encourage pulmonary toilet with IS Ambulate with PT/OT, OOB to chair today Ordonez to stay in until AM of POD 2 - Nutrition: Current Diet and/or Nutritional Supplementation ordered: DIET NPO I have reviewed this patient's history and physical, family history, acute and chronic diagnoses, all pertinent notes, vitals, labs, medications and images during my development of the above assessment and plan. Disposition: Continue inpatient care Sherrell Cole MD, 11/04/2019 9:00 AM *If unable to reach me, please call the local telephone operator and ask for the On-Call Trauma Surgeon* Associated attestation - Allan Wheeler MD - 11/04/2019 5:31 PM CDT I attest that I was present and supervised resident, Dr Cole and agree with their evaluation, assessment, and plan of care with my comments as below. I also conducted my own independent examinationand then directed the evaluation,and management of this patient based on a thorough exam,with review of pertinent labs, xrays, including recommendations of consultants for the clinical direction of the care and treatment of the patient. This management was discussed with resident, and I was presentduring the critical portion of the examination. I have spent no less than 20 minutes involved in the care and evaluation, including review of labs, xrays and history of this patient. This is excluding any procedures. I informed her I called her yesterday and left a brief message as he did not / was not able to answer his phone. I d/w her the operative findings and the sbowel injury that Irepaired as well. I d/w her to get up to chair and get as mobile as possible. I will d/c sariah tomorrow AM as she is not moving much at all Nutrition: Current Diet and/or Nutritional Supplementation ordered: DIET NPO ALLAN WHEELER MD * Valdez Solis MD - 11/04/2019 8:14 AM CDT [facility] Resident Progress Note Patient Name: [place]e Phelan Supervising Resident: Josafat Attending Physician: Ashley Helms MD Primary Care Provider: Francis Pereyra MD Date of Admission: 11/01/2019 Date of Service: 11/04/2019 Length of Stay: LOS: 2 days Previous history of present illness and review of systems have been reviewed today as documented inthe H&P on 11/01/2019; medications, labs, studies, notes, orders and consults have been reviewed. I have reviewed the notes from admission. Assessment and Plan: Active Problems: Acute Calculous Cholecystitis s/p open cholecystectomy w/ small bowel resection/repair 11/03 - Patient has a history of biliary dyskinesia, initially had seen GI and planned to have a cholecystectomy if symptoms had not resolved with eosinophilic esophagitis treatment -Difficult sx requiring open cholecystecomy due to presence of mesh/hx of gastrochisis - CT shows evidence of calculous cholecystitis, Leal's positive on exam - RUQ US-- common bile duct dilatation, cholelithiasis, severe hepatic steatosis, no gallbladder wall thickening - Antibiotics: Zosyn 3.375g q6h -Analgesic: Morphine SCOURING PADS SUPERVISOR - IVF: LR at 75 mL/h continuous -MRCP without evidence of ductal filling defect, stricture, periampullary mass -Protonix 40 mg IV daily New Onset HTN -likely pain related Chronic/Stable/Resolved Problems: Eosinophilic Esophagitis - Continue CERTIFIED NEURODIAGNOSTIC TECHNOLOGIST PPI ?? Hx Biliary Dyskinesia - HIDA scan reported EF 25% 04/2019 from [facility] in [place], [place] - NPO for now - Surgery consulted, appreciate recommendations ?? 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 Obesity BMI 40.35 Nutrition: Current Diet and/or Nutritional Supplementation ordered: DIET NPO Quality/Safety/Core Measures/Disposition Planning: DVT PRX:Enoxaparin Indwelling Lines/Devices: Peripheral IV Ordonez: absent; reason: N/A Patient's activity prior to admission: independent Patient lives with their family in a single family home PT and OT: Yes Code Status: Full Code Current Planned Disposition - Home which I anticipate will be completed 2-3 days Subjective/Overnight on-going RUQ tenderness, on SCOURING PADS SUPERVISOR Objective BP (!) 144/86 (BP Location: Right arm, Patient Position (BP): Supine) Pulse 78 Temp 97.6 ??F (36.4 ??C) (Oral) Resp 15 Ht 5' 6 (1.676 m) Wt 111.1 kg (245 lb) SpO2 98% No BMI 39.54 kg/m?? Temp (24hrs), Av.8 ??F (36.6 ??C), Min:96.4 ??F (35.8 ??C), Max:98.5 ??F (36.9 ??C) Exam: Gen alert, cooperative, no distress, appears stated age Lungs clear to auscultation bilaterally Heart regular rate and rhythm, JVP absent, S1, S2 normal, no murmur, click, rub or gallop Abdomen soft, tender RUQ. Bowel sounds normal. No masses, No organomegaly Extremities extremities normal, atraumatic, no cyanosis or edema Mental Status A& O x 3 Data: I have reviewed all new labs and studies resulted and pertinent ones are noted below CBC: Recent Labs 11/04/19 0714 WBC 11.6* HGB 11.8 HCT 36.5 PLT 234 MCV 94.1 BMP: Recent Labs 11/02/19 0435 NA 140 K 3.5 CL 103 CO2 26 ANIONGAP 11 CA 8.5* GLUCOSE 104* BUN 6 CREAT 0.65 Valdez Perez MD 11/04/2019 8:14 AM I discussed the assessment of plan for the above patient with Ashley Pinto MD This note was transcribed using TVTY computerized voice recognition without a human ham clerk. This report may or may not have been adjusted for typographical, grammaticaland syntax errors. This patient is covered by internal medicine residents To reach Internal Medicine covered patients: Thursday-Thursday 7 AM- 7 PM: Please contact the resident via secure chat. The resident responsible for the patient will be on the Treatment Team listed as Resident If no response you may call the immigration inspector environmental intern at zone phone [phone]. If no response you may call the immigration inspector senior resident at zone phone [phone] If no response please contact the attending of record via secure chat. 7 PM to 7 AM: The long call/night float resident should be listed as Resident on the treatment team and can be reached via secure chat. If no response you may call the immigration inspector environmental intern at zone phone [phone] If no response you may call the immigration inspector senior resident at zone phone [phone] If no response please contact the Rapid Access Hospitalist via secure chat Thursday and Thursday: 7 AM-12 PM: Please contact the resident via secure chat. The resident responsible for the patient will be on the Treatment Team listed as Resident 12 PM-7 AM: The long call/night float resident should be listed as Resident on the treatment teamand can be reached via secure chat. If no response call the immigration inspector environmental intern at zone phone [phone]. If no response you may call the immigration inspector senior resident at zone phone [phone] If no response please contact the Rapid Access Hospitalist via secure chat Associated attestation - Ashley Helms MD - 11/05/2019 8:16 AM CDT [facility] Adult Hospitalist Attending Note I reviewed the medical record including the resident???s note (Dr Solis) (available as hyperlinkbelow). I discussed with the resident and participated during the history and physical examination of the patient on Monday November 04, 2019. The laboratory findings and assessment and plan was reviewed with the resident. I also performed the critical or barreto portion(s) of the service as documented below, and was directly involved in the management of the patient and supervised the care provided. Sore throat with NGT, post operative pain is now better controlled with the SCOURING PADS SUPERVISOR I have reviewed the physical exam findings in the resident???s note; my notable physical exam findings include: gen Alert and cooperative; NGT present abd Soft, post operative, quiet I have reviewed the labs that were obtained over the last 24 hours. Notable amendments to the assessment and plan include: Active Hospital Problems Diagnosis Right upper quadrant abdominal pain Acute calculous cholecystitis History of gastroschisis Resolved Hospital Problems No resolved problems to display. Acute calculous cholecystitis - s/p open pipe earlier 11/03/19; NGT in place - await return of bowel function, continue iv protonix, provide symptomatic relief. NPO for now See resident note for additional details. Nutrition: Current Diet and/or Nutritional Supplementation ordered: DIET NPO Ashley Helms MD 11/05/2019 8:13 AM [facility] Approximately 30 minutes were spent in the care of this patient today; more than 50% was spent in counseling and coordination of care (patient/family conference, nursing conference and/or discussion with consultants). This patient is covered by internal medicine residents; per ACGME guidelines residents must write orders for patients under their care, with appropriate supervision by the attending physician . Please contact the attending physician on covered patients only if you are unable to reach the resident,or if you have an emergency. To reach Internal Medicine covered patients: Thursday-Thursday 7 AM- 7 PM: Please contact the resident via secure chat. The resident responsible for the patient will be on the Treatment Team listed as Resident If no response you may call the immigration inspector environmental intern at zone phone [phone]. If no response you may call the immigration inspector senior resident at zone phone [phone] If no response please contact the attending of record via secure chat. 7 PM to 7 AM: The long call/night float resident should be listed as Resident on the treatment team and can be reached via secure chat. If no response you may call the immigration inspector environmental intern at zone phone [phone]. If no response you may call the immigration inspector senior resident at zone phone [phone] Thursday and Thursday: 7 AM-12 PM: Please contact the resident via secure chat. The resident responsible for the patient will be on the Treatment Team listed as Resident 12 PM-7 AM: The long call/night float resident should be listed as Resident on the treatment teamand can be reached via secure chat. If no response call the immigration inspector environmental intern at zone phone [phone]. If no response you may call the immigration inspector senior resident at zone phone [phone] If no response please contact the Rapid Access Hospitalist via secure chat. * Jennifer Doe DO - 11/03/2019 11:17 PM CDT Brief Cross-Cover Note Received call from nurse regarding: Patient in excruciating pain after being administered morphine.Pain woke her from sleep. Morphine given at 2211. Per RN, LENA drain with 50cc output in last 2 hours Reviewed chart- patient underwent open cholecystectomy with small bowel resection today. Examined at bedside Vitals: 11/03/19 2252 BP: (!) 165/96 Pulse: Resp: 20 Temp: SpO2: 97% GEN: appears acutely uncomfortable, crying out in pain ABD: Binder in place. Dressings c/d/i. Drain contains minimal amount sanguinous fluid. Tender to mild palpation in RUQ. Plan: RN paged general surgery resident. Orders placed for morphine SCOURING PADS SUPERVISOR pump by general surgery. Please do not hesitate to call back if there are any other concerns. Jennifer Doe DO Internal Medicine, PGY1 This patient is covered by internal medicine residents To reach Internal Medicine covered patients: Thursday-Thursday 7 AM- 5 PM: Via secure text, if resident does not answer please page via the [employer] E-List 5 PM-7 AM: Via secure text (immigration inspector environmental intern will place themselves on the treatment team). If the resident does not answer call the zone phone [phone]. If no response please page the senior resident at [phone] Thursday and Thursday: 7 AM-12 PM: Via secure text, if resident does not answer please page via the [employer] E-List 12 PM-7 AM: Via secure text (immigration inspector environmental intern will place themselves on the treatment team). If the resident does not answer call the zone phone [phone]. If no response please page the senior resident [phone] If no response to the above steps in 10 minutes, please page the attending physician via secure text or via the [employer]-list. * Allan Wheeler MD - 11/03/2019 6:55 AM CDT Images from the original note were not included. DATE: 11/03/2019 NAME: Lis Phelan : 1985 CSN: [id number] [facility] General Surgery Progress Note Last 24 hours: EMILIA overnight Has been NPO with IVF since midnight AVSS, systolic to 150s ASSESSMENT/PLAN: To OR open, cholecystectomy MRCP is done no evidence of acute cholecystitis on MRI No plans for OR today, as MRCP is not yet performed Continue NPO with IVF Continue scheduled zosyn ?? Nutrition: Current Diet and/or Nutritional Supplementation ordered: DIET NPO I have reviewed this patient's history and physical, family history, acute and chronic diagnoses, all pertinent notes, vitals, labs, medications and images during my development of the above assessment and plan. I clearly explained The symptoms of biliary colic, and that cholecystectomy will take care of those symptoms however she could have IBS, gastritis or adhesions related symptoms and cholecystectomy will not take car of those symptoms. We discussed risks of bleeding infection and injury to bowel or CBD no guarantee or assurances to the outcome can be given. I told her if she wanted to wait as she is improved since admission clinically and chemically we could delay or cancel the case. She wishes to proceed. Disposition: Anticipate return to floor bed Post-op ALLAN WHEELER MD, 11/03/2019 6:55 AM TACS Resident On-Call Pager [phone].TACS TACS Attending On-Call - please refer to Trauma and Acute Care Surgery (TACS) page on [employer] website Admit Date: 11/01/2019 LOS: 1 day Operations/Procedures Course: Pending SUBJECTIVE: Chief Complaint Patient presents with ??? Abdominal Pain pt arrived to ed with co RUQ abdominal pain. +N/V. Pain in the back has been occuring all day and the abdomen started around 8pm. Active Hospital Problems Diagnosis ??? Right upper quadrant abdominal pain ??? Acute calculous cholecystitis ??? History of gastroschisis Resolved Hospital Problems No resolved problems to display. HPI: Lis Phelan is a 34 y.o. female 34 year-old female with PMHx of biliary dyskinesia (Gallbladder ER 25%), eosinophilic esophagitis, pre-diabetes, obesity, and asthma admitted to the medicine team with 1d abdominal pain. Patient reports prior episodes in last 9 years after a . Reports symptoms associated with eating and typically self-resolve. Reports that since yesterday she has had severe abdominal pain associated with nausea and vomiting. She was admitted to the floor and started on IV antibiotics. Labs on admission notable for WBC 11.0, no elevated LFTs. General Surgery Consulted for evaluation for cholecystectomy. ?? Patient reports past surgical history of gastroschisis, as well as ex-lap for lysis of adhesions c/b infection and ultimately ventral hernia repair with mesh. Patient unsure what type of mesh was used for closure. Believes her last surgery was done at [facility]. Allergies Allergen Reactions ??? Chantix [Varenicline] Anaphylaxis ??? Metronidazole Nausea and Vomiting Other reaction(s): Vomiting ??? Demerol [Meperidine] Swelling ??? Tramadol Hives Current Facility-Administered Medications: ??? polyethylene glycol (MIRALAX) packet 17 Gram, 17 Gram, Oral, Daily PRN, Jennifer Doe DO, 17 Gram at 11/03/19 0124 ??? lactated ringers infusion, , IV, Pre-Proc Continuous, Harish Cintron MD, Last Rate: 150 mL/hr at 11/03/19 0645 ??? magnesium citrate oral solution 296 mL, 296 mL, Oral, Daily PRN, Allan Wheeler MD, 296 mL at 11/02/19 1614 ??? [COMPLETED] gadoteridoL (PROHANCE) 279.3 mg/mL injection 20 mL, 20 mL, IV, Intra-Proc Once, Nida Kearns MD, 20 mL at 11/02/19 1151 ??? [COMPLETED] sodium chloride flush injection 10 mL, 10 mL, IV, ONCE, Nida Kearns MD, 10 mL at 11/02/19 1145 ??? [COMPLETED] sodium chloride 0.9% infusion, , IV, Intra-Proc Once, Nida Kearns MD, Last Rate: 50 mL/hr at 11/02/19 1152, 20 mL at 11/02/19 1152 ??? insulin lispro (HumaLOG) injection 0-4 Units, 0-4 Units, subCUT, ACHS QID, Therese Maurice, DO ??? insulin lispro (HumaLOG) injection 0-4 Units, 0-4 Units, subCUT, q 4 hour, Therese Maurice, DO ??? piperacillin-tazobactam (ZOSYN) 3.375 gram in dextrose (iso-osmotic) 50 mL IVPB, 3.375 Gram, IV, q 6 hour, Demario Koo, , Stopped at 11/03/19 0045 ??? morphine 4 mg/mL injection 2 mg, 2 mg, IV, q 4 hour PRN, Jennifer Doe DO, 2 mg at 11/02/19 1718 ??? buPROPion HCL (WELLBUTRIN XL) SR 24 hour tablet 150 mg, 150 mg, Oral, Daily EARLY, Nuspl, Jennifer E, DO, 150 mg at 11/01/19 0649 ??? pantoprazole (PROTONIX) tablet 40 mg, 40 mg, Oral, Daily, Jennifer Doe, DO, 40 mg at 11/02/19 1222 ??? sertraline (ZOLOFT) tablet 100 mg, 100 mg, Oral, Daily, Jennifer Doe, DO, 100 mg at 11/02/19 1221 ??? naloxone (NARCAN) 0.4 mg/mL injection 0.1 mg, 0.1 mg, IV, See Admin Notes, Jennifer Doe DO ??? acetaminophen (TYLENOL) tablet 650 mg, 650 mg, Oral, q 6 hour PRN, Jennifer Doe, DO, 650 mg at11/02/19 1222 ??? ondansetron (ZOFRAN ODT) tablet 4 mg, 4 mg, Oral, q 6 hour PRN, Jennifer Doe, DO, 4 mg at 11/02/19 1718 ??? ondansetron (ZOFRAN) 4 mg/2 mL injection 4 mg, 4 mg, IV, q 6 hour PRN, Shobha Choi MD, 4 mg at 11/02/19 0823 ??? dextrose 5% - sodium chloride 0.9% infusion, , IV, See Admin Notes, Shobha Choi MD ??? dextrose 50% (D50) syringe 12.5 Gram, 12.5 Gram, IV, See Admin Notes, Shobha Choi MD ??? dextrose 50% (D50) syringe 25 Gram, 25 Gram, IV, See Admin Notes, Shobha Choi MD ??? glucagon HCL 1 mg/mL injection 1 mg, 1 mg, IM, See Admin Notes, Shobha Choi MD ??? enoxaparin (LOVENOX) injection 60 mg, 0.5 mg/kg, subCUT, q 24 hour, Therese Maurice DO, 60 mg at 11/02/19 1222 ??? [DISCONTINUED] insulin lispro (HumaLOG) injection 0-4 Units, 0-4 Units, subCUT, q 4 hour, Shobha Choi MD Past Medical History: Diagnosis Date ??? Arthritis ??? Asthma ??? Biliary dyskinesia ??? Depression ??? Diabetes mellitus ??? Difficult intravenous access VERY hard IV stick use requests ultrasound ??? Eosinophilic esophagitis ??? GERD (gastroesophageal reflux disease) ??? Headache ??? History of shingles ??? Hyperlipidemia Past Surgical History: Procedure Laterality Date ??? HX GASTROSCHISIS CLOSURE ??? HX SURGICAL OTHER 04/2004 adhesion removed ??? CA ESOPHAGOGASTRODUODENOSCOPY TRANSORAL DIAGNOSTIC N/A 05/17/2019 ESOPHAGOGASTRODUODENOSCOPY performed by Jena Cerda MD at [facility] Family History Problem Relation Name [...] level: Not on file Occupational History Employer: [employer] Social Needs ??? Financial resource strain: Not on file ??? Food insecurity: Worry: Not on file Inability: Not on file ??? Transportation needs: Medical: Not on file Non-medical: Not on file Tobacco Use ??? Smoking status: Former Smoker Packs/day: 1.00 Years: 10.00 Pack years: 10.00 Last attempt to quit: 03/02/2016 Years since quittin.6 ??? Smokeless tobacco: Never Used Substance and Sexual Activity ??? Alcohol use: No ??? Drug use: No ??? Sexual activity: Not on file Lifestyle ??? Physical activity: Days per week: Not on file Minutes per session: Not on file ??? Stress: Not on file Relationships ??? Social connections: Talks on phone: Not on file Gets together: Not on file Attends [employer] service: Not on file Active member of club or organization: Not on file Attends meetings of clubs or organizations: Not on file Relationship status: Not on file ??? Intimate partner violence: Fear of current or ex partner: Not on file Emotionally abused: Not on file Physically abused: Not on file Forced sexual activity: Not on file Other Topics Concern ??? Not on file Social History Narrative ??? Not on file Review of Systems: Review of Systems Constitutional: Negative. Negative for fever. HENT: Negative. Negative for hearing loss. Eyes: Negative. Negative for blurred vision. Respiratory: Negative. Negative for cough. Cardiovascular: Negative. Negative for chest pain. Gastrointestinal: Positive for abdominal pain and nausea. Negative for vomiting. Genitourinary: Negative. Negative for dysuria. Musculoskeletal: Negative. Negative for myalgias. Skin: Negative. Negative for rash. Neurological: Negative. Negative for dizziness. Endo/Heme/Allergies: Does not bruise/bleed easily. Obesity Psychiatric/Behavioral: Negative. Negative for depression. OBJECTIVE: Blood pressure (!) 139/94, pulse 81, temperature 97.1 ??F (36.2 ??C), temperature source Temporal, resp. rate 20, height 5' 6 (1.676 m), weight 111.1 kg (245 lb), SpO2 97 %, not currently . Intake/Output Summary (Last 24 hours) at 11/03/2019 0655 Last data filed at 11/03/2019 0111 Gross per 24 hour Intake 978.18 ml Output 300 ml Net 678.18 ml Temp (24hrs), Av.9 ??F (36.6 ??C), Min:97.1 ??F (36.2 ??C), Max:98.3 ??F (36.8 ??C) Physical Exam: Gen alert, in no distress Neuro Grossly normal HEENT Normal Heart regular rate Lungs normal respiratory effort Abdomen Non-distended, no rebound, no guarding RUQ/epigastric TTP Well healed transverse incision scar Extremities moves all extremities equally Skin Skin color, texture, turgor normal. No rashes or lesions Other Normal mood and affect Labs/Imaging: Results for orders placed or performed during the hospital encounter of 11/01/19 (from the past 24 hour(s)) POC GLUCOSE Result Value Ref Range POC GLUCOSE 107 (H) 74 - 99 mg/dL COMMENT, GLU POC Notified RN/MD FACILITIES SPECIALIST NAME DANIEL SANDRA MRSA PCR RAPID SCREEN Result Value Ref Range MRSA PCR RESULT MRSA not detected MRSA not detected POC GLUCOSE Result Value Ref Range POC GLUCOSE 88 74 - 99 mg/dL COMMENT, GLU POC Notified RN/MD FACILITIES SPECIALIST NAME SANDRA SANCHEZ POC GLUCOSE Result Value Ref Range POC GLUCOSE 98 74 - 99 mg/dL COMMENT, GLU POC Notified RN/MD FACILITIES SPECIALIST NAME SRIRAM ISIDRO POC GLUCOSE Result Value Ref Range POC GLUCOSE 90 74 - 99 mg/dL FACILITIES SPECIALIST NAME SRIRAM ISIDRO POC GLUCOSE Result Value Ref Range POC GLUCOSE 103 (H) 74 - 99 mg/dL FACILITIES SPECIALIST NAME SRIRAM ISIDRO I attest that I have spent no less than 35 minutes involved in this patients examination, review oflabs, xrays, notes, updating problem lists and discussion with consultants and formulation of the care plan for today. This is in exclusion of any procedure performed. I have also updated the patientand family members on progress. Direct contact with the patient was no less than 25 minutes ALLAN WHEELER MD * Valdez Solis MD - 11/03/2019 4:48 AM CDT Krystin Resident Progress Note Patient Name: Lis Phelan Supervising Resident: Josafat Attending Physician: Ashley Helms MD Primary Care Provider: Francis Pereyra MD Date of Admission: 11/01/2019 Date of Service: 11/03/2019 Length of Stay: LOS: 1 day Previous history of present illness and review of systems have been reviewed today as documented inthe H&P on 11/01/2019; medications, labs, studies, notes, orders and consults have been reviewed. I have reviewed the notes from admission. Assessment and Plan: Active Problems: Acute Calculous Cholecystitis - Patient has a history of biliary dyskinesia, initially had seen GI and planned to have a cholecystectomy if symptoms had not resolved with eosinophilic esophagitis treatment - CT shows evidence of calculous cholecystitis, Leal's positive on exam - RUQ US-- common bile duct dilatation, cholelithiasis, severe hepatic steatosis, no gallbladder wall thickening - Antibiotics: Zosyn 3.375g q6h - Antiemetics: Zofran ODT - IVF: LR at 75 mL/h continuous - General surgery consulted-- requested that we obtain records from [facility], however [facility] states pt did not have her mesh placed there. They do have records of operative management for intra-abdominal abscess. Requested these records -Had MRCP yesterday without evidence of ductal filling defect, stricture, periampullary mass -Status post open cholecystectomy with small bowel resection and repair 11/03/2019 -Protonix 40 mg IV daily New Onset HTN -likely pain related Chronic/Stable/Resolved Problems: Eosinophilic Esophagitis - Continue CERTIFIED NEURODIAGNOSTIC TECHNOLOGIST PPI ?? Hx Biliary Dyskinesia - HIDA scan reported EF 25% 04/2019 from [facility] in [place], [place] - NPO for now - Surgery consulted, appreciate recommendations ?? 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 Obesity BMI 40.35 Nutrition: Current Diet and/or Nutritional Supplementation ordered: DIET NPO Quality/Safety/Core Measures/Disposition Planning: DVT PRX:Enoxaparin Indwelling Lines/Devices: Peripheral IV Ordonez: absent; reason: N/A Patient's activity prior to admission: independent Patient lives with their family in a single family home PT and OT: Yes Code Status: Full Code Current Planned Disposition - Home which I anticipate will be completed 3-5 days Subjective/Overnight on-going RUQ tenderness, tolerating clear liquid diet Objective BP 134/84 (BP Location: Right arm, Patient Position (BP): Supine) Pulse 81 Temp 98.3 ??F (36.8 ??C) (Oral) Resp 18 Ht 5' 6 (1.676 m) Wt 111.1 kg (245 lb) SpO2 99% No BMI 39.54 kg/m?? Temp (24hrs), Av ??F (36.7 ??C), Min:97.5 ??F (36.4 ??C), Max:98.3 ??F (36.8 ??C) Exam: Gen alert, cooperative, no distress, appears stated age Lungs clear to auscultation bilaterally Heart regular rate and rhythm, JVP absent, S1, S2 normal, no murmur, click, rub or gallop Abdomen soft, tender RUQ. Bowel sounds normal. No masses, No organomegaly Extremities extremities normal, atraumatic, no cyanosis or edema Mental Status A& O x 3 Data: I have reviewed all new labs and studies resulted and pertinent ones are noted below CBC: Recent Labs 11/01/19 0053 11/01/19 0658 WBC 11.0* 8.9 HGB 12.9 12.6 HCT 38.1 38.5 PLT 284 251 MCV 91.8 93.2 BMP: Recent Labs 11/01/19 0030 11/02/19 0435 NA 138 140 K 5.5* 3.5 CL 103 103 CO2 20* 26 ANIONGAP 15 11 CA 9.8 8.5* GLUCOSE 143* 104* BUN 11 6 CREAT 0.55 0.65 Valdez Perez MD 11/03/2019 4:48 AM I discussed the assessment of plan for the above patient with Ashley Pinto MD This note was transcribed using TVTY computerized voice recognition without a human ham clerk. This report may or may not have been adjusted for typographical, grammaticaland syntax errors. This patient is covered by internal medicine residents To reach Internal Medicine covered patients: Thursday-Thursday 7 AM- 7 PM: Please contact the resident via secure chat. The resident responsible for the patient will be on the Treatment Team listed as Resident If no response you may call the immigration inspector environmental intern at zone phone [phone]. If no response you may call the immigration inspector senior resident at zone phone [phone] If no response please contact the attending of record via secure chat. 7 PM to 7 AM: The long call/night float resident should be listed as Resident on the treatment team and can be reached via secure chat. If no response you may call the immigration inspector environmental intern at zone phone [phone]. If no response you may call the immigration inspector senior resident at zone phone [phone] If no response please contact the Rapid [facility] Hospitalist via secure chat Thursday and Thursday: 7 AM-12 PM: Please contact the resident via secure chat. The resident responsible for the patient will be on the Treatment Team listed as Resident 12 PM-7 AM: The long call/night float resident should be listed as Resident on the treatment teamand can be reached via secure chat. If no response call the immigration inspector environmental intern at zone phone [phone]. If no response you may call the immigration inspector senior resident at zone phone [phone] If no response please contact the Rapid [facility] Hospitalist via secure chat Associated attestation - Ashley Helms MD - 11/04/2019 4:35 PM CDT [facility] Adult Hospitalist Attending Note I reviewed the medical record including the resident???s note (Dr Solis) (available as hyperlinkbelow). I was present with the resident and participated during the history and physical examination of the patient on October. The laboratory findings and assessment and plan was reviewed with the resident. I also performed the critical or barreto portion(s) of the service as documented below, and was directly involved in the management of the patient and supervised the care provided. Seen postoperatively - sleepy with current medications. Denies nausea or vomiting I have reviewed the physical exam findings in the resident???s note; my notable physical exam findings include: gen Drowsy due to medications, easily awakens to voice; NGT present abd Post operative with drain in place; no audible BS I have reviewed the labs that were obtained over the last 24 hours. Notable amendments to the assessment and plan include: Active Hospital Problems Diagnosis Right upper quadrant abdominal pain Acute calculous cholecystitis History of gastroschisis Resolved Hospital Problems No resolved problems to display. Acute calculous cholecystitis - s/p open pipe earlier today; NGT in place - await return of bowel function, change PPI to iv, provide symptomatic relief See resident note for additional details. Nutrition: Current Diet and/or Nutritional Supplementation ordered: DIET NPO Ashley Helms MD 11/04/2019 4:29 PM [facility] Approximately 30 minutes were spent in the care of this patient today; more than 50% was spent in counseling and coordination of care (patient/family conference, nursing conference and/or discussion with consultants). This patient is covered by internal medicine residents; per ACGME guidelines residents must write orders for patients under their care, with appropriate supervision by the attending physician . Please contact the attending physician on covered patients only if you are unable to reach the resident,or if you have an emergency. To reach Internal Medicine covered patients: Thursday-Thursday 7 AM- 7 PM: Please contact the resident via secure chat. The resident responsible for the patient will be on the Treatment Team listed as Resident If no response you may call the immigration inspector environmental intern at zone phone [phone]. If no response you may call the immigration inspector senior resident at zone phone [phone] If no response please contact the attending of record via secure chat. 7 PM to 7 AM: The long call/night float resident should be listed as Resident on the treatment team and can be reached via secure chat. If no response you may call the immigration inspector environmental intern at zone phone [phone]. If no response you may call the immigration inspector senior resident at zone phone [phone] Thursday and Thursday: 7 AM-12 PM: Please contact the resident via secure chat. The resident responsible for the patient will be on the Treatment Team listed as Resident 12 PM-7 AM: The long call/night float resident should be listed as Resident on the treatment teamand can be reached via secure chat. If no response call the immigration inspector environmental intern at zone phone [phone]. If no response you may call the immigration inspector senior resident at zone phone [phone] If no response please contact the [facility] Hospitalist via secure chat. * Jennifer Doe DO - 11/03/2019 1:15 AM CDT Brief Cross-Cover Note Received call from nurse regarding: patient has not had bowel movement since dose of mag citrate [id number]. Reviewed chart. Offered Miralax or enema- patient wanted to try miralax first. Plan: Miralax qd prn Please do not hesitate to call back if there are any other concerns. Jennifer Doe DO Internal Medicine, PGY1 This patient is covered by internal medicine residents To reach Internal Medicine covered patients: Thursday-Thursday 7 AM- 5 PM: Via secure text, if resident does not answer please page via the [employer] E-List 5 PM-7 AM: Via secure text (immigration inspector environmental intern will place themselves on the treatment team). If the resident does not answer call the zone phone [phone]. If no response please page the senior resident at [phone] Thursday and Thursday: 7 AM-12 PM: Via secure text, if resident does not answer please page via the [employer] E-List 12 PM-7 AM: Via secure text (immigration inspector environmental intern will place themselves on the treatment team). If the resident does not answer call the zone phone [phone]. If no response please page the senior resident [phone] If no response to the above steps in 10 minutes, please page the attending physician via secure text or via the [facility] Hospitalist E-list. * Valdez Solis MD - 11/02/2019 1:54 PM CDT [facility] Resident Progress Note Patient Name: Lis Phelan Supervising Resident: Josafat Attending Physician: Ashley Helms MD Primary Care Provider: Francis Pereyra MD Date of Admission: 11/01/2019 Date of Service: 11/02/2019 Length of Stay: LOS: 0 days Previous history of present illness and review of systems have been reviewed today as documented inthe H&P on 11/01/2019; medications, labs, studies, notes, orders and consults have been reviewed. I have reviewed the notes from admission. Assessment and Plan: Active Problems: Acute Calculous Cholecystitis - Patient has a history of biliary dyskinesia, initially had seen GI and planned to have a cholecystectomy if symptoms had not resolved with eosinophilic esophagitis treatment - CT shows evidence of calculous cholecystitis, Leal's positive on exam - RUQ US-- common bile duct dilatation, cholelithiasis, severe hepatic steatosis, no gallbladder wall thickening - Antibiotics: Zosyn 3.375g q6h - Antiemetics: Zofran ODT - IVF: NS 125cc/hr - General surgery consulted-- requested that we obtain records from [facility], however [facility] states pt did not have her mesh placed there. They do have records of operative management for intra-abdominal abscess. Requested these records -MRCP today, NPO@midnight likely OR tomorrow New Onset HTN -likely pain related Chronic/Stable/Resolved Problems: Eosinophilic Esophagitis - Continue CERTIFIED NEURODIAGNOSTIC TECHNOLOGIST PPI ?? Hx Biliary Dyskinesia - HIDA scan reported EF 25% 04/2019 from [facility] in [place], [place] - NPO for now - Surgery consulted, appreciate recommendations ?? 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 Obesity BMI 40.35 Nutrition: Current Diet and/or Nutritional Supplementation ordered: DIET FAT CONTROL DIET NPO Quality/Safety/Core Measures/Disposition Planning: DVT PRX:Enoxaparin Indwelling Lines/Devices: Peripheral IV Ordonez: absent; reason: N/A Patient's activity prior to admission: independent Patient lives with their family in a single family home PT and OT: Yes Code Status: Full Code Current Planned Disposition - Home which I anticipate will be completed 3-5 days Subjective/Overnight on-going RUQ tenderness, tolerating clear liquid diet Objective BP (!) 146/95 (BP Location: Right arm, Patient Position (BP): Supine) Pulse 75 Temp 98.3 ??F (36.8 ??C) (Oral) Resp 18 Ht 5' 6 (1.676 m) Wt 111.1 kg (245 lb) SpO2 98% No BMI 39.54 kg/m?? Temp (24hrs), Av.1 ??F (36.7 ??C), Min:97.5 ??F (36.4 ??C), Max:98.6 ??F (37 ??C) Exam: Gen alert, cooperative, no distress, appears stated age Lungs clear to auscultation bilaterally Heart regular rate and rhythm, JVP absent, S1, S2 normal, no murmur, click, rub or gallop Abdomen soft, tender RUQ. Bowel sounds normal. No masses, No organomegaly Extremities extremities normal, atraumatic, no cyanosis or edema Mental Status A& O x 3 Data: I have reviewed all new labs and studies resulted and pertinent ones are noted below CBC: Recent Labs 11/01/19 0053 11/01/19 0658 WBC 11.0* 8.9 HGB 12.9 12.6 HCT 38.1 38.5 PLT 284 251 MCV 91.8 93.2 BMP: Recent Labs 11/01/19 0030 11/02/19 0435 NA 138 140 K 5.5* 3.5 CL 103 103 CO2 20* 26 ANIONGAP 15 11 CA 9.8 8.5* GLUCOSE 143* 104* BUN 11 6 CREAT 0.55 0.65 Valdez Perez MD 11/02/2019 1:54 PM I discussed the assessment of plan for the above patient with Ashley Pinto MD This note was transcribed using [employer] speaking computerized voice recognition without a human ham clerk. This report may or may not have been adjusted for typographical, grammaticaland syntax errors. This patient is covered by internal medicine residents To reach Internal Medicine covered patients: Thursday-Thursday 7 AM- 7 PM: Please contact the resident via secure chat. The resident responsible for the patient will be on the Treatment Team listed as Resident If no response you may call the immigration inspector environmental intern at zone phone [phone]. If no response you may call the immigration inspector senior resident at zone phone [phone] If no response please contact the attending of record via secure chat. 7 PM to 7 AM: The long call/night float resident should be listed as Resident on the treatment team and can be reached via secure chat. If no response you may call the immigration inspector environmental intern at zone phone [phone]. If no response you may call the immigration inspector senior resident at zone phone [phone] If no response please contact the [facility] Hospitalist via secure chat Thursday and Thursday: 7 AM-12 PM: Please contact the resident via secure chat. The resident responsible for the patient will be on the Treatment Team listed as Resident 12 PM-7 AM: The long call/night float resident should be listed as Resident on the treatment teamand can be reached via secure chat. If no response call the immigration inspector environmental intern at zone phone [phone]. If no response you may call the immigration inspector senior resident at zone phone [phone] If no response please contact the Rapid [facility] Hospitalist via secure chat Associated attestation - Ashley Helms MD - 11/03/2019 8:00 AM CDT [facility] Adult Hospitalist Attending Note I reviewed the medical record including the resident???s note (Dr Solis) (available as hyperlinkbelow). I discussed with the resident and participated during the history and physical examination of the patient on Saturday November 02, 2019. The laboratory findings and assessment and plan was reviewed with the resident. I also performed the critical or barreto portion(s) of the service as documented below, and was directly involved in the management of the patient and supervised the care provided. Nausea has improved, continues to have intermittent RUQ discomfort I have reviewed the physical exam findings in the resident???s note; my notable physical exam findings include: gen Alert and cooperative abd Soft, mild RUQ tenderness to palpation without rebound or guarding; NABS I have reviewed the labs that were obtained over the last 24 hours. Notable amendments to the assessment and plan include: Active Hospital Problems Diagnosis Right upper quadrant abdominal pain Acute calculous cholecystitis History of gastroschisis Resolved Hospital Problems No resolved problems to display. Acute calculous cholecystitis - S/P MRCP today and going for cholecystectomy in the am. Continue toprovide symptomatic relief and continue iv antibiotics for now. See resident note for additional details. Nutrition: Current Diet and/or Nutritional Supplementation ordered: DIET NPO Ashley Helms MD 11/03/2019 7:57 AM [facility] Hospitalist Approximately 30 minutes were spent in the care of this patient today; more than 50% was spent in counseling and coordination of care (patient/family conference, nursing conference and/or discussion with consultants). This patient is covered by internal medicine residents; per ACGME guidelines residents must write orders for patients under their care, with appropriate supervision by the attending physician . Please contact the attending physician on covered patients only if you are unable to reach the resident,or if you have an emergency. To reach Internal Medicine covered patients: Thursday-Thursday 7 AM- 7 PM: Please contact the resident via secure chat. The resident responsible for the patient will be on the Treatment Team listed as Resident If no response you may call the immigration inspector environmental intern at zone phone [phone]. If no response you may call the immigration inspector senior resident at zone phone [phone] If no response please contact the attending of record via secure chat. 7 PM to 7 AM: The long call/night float resident should be listed as Resident on the treatment team and can be reached via secure chat. If no response you may call the immigration inspector environmental intern at zone phone [phone]. If no response you may call the immigration inspector senior resident at zone phone [phone] Thursday and Thursday: 7 AM-12 PM: Please contact the resident via secure chat. The resident responsible for the patient will be on the Treatment Team listed as Resident 12 PM-7 AM: The long call/night float resident should be listed as Resident on the treatment teamand can be reached via secure chat. If no response call the immigration inspector environmental intern at zone phone [phone]. If no response you may call the immigration inspector senior resident at zone phone [phone] If no response please contact the [facility] Hospitalist via secure chat. * Sherrell Cole MD - 11/02/2019 6:16 AM CDT Images from the original note were not included. DATE: 11/02/2019 NAME: Lis Phelan : 1985 CSN: [id number] [facility] General Surgery Progress Note Last 24 hours: EMILIA overnight Has been NPO with IVF since midnight AVSS, systolic to 150s ASSESSMENT/PLAN: To OR for laparoscopic, possible open, cholecystectomy (likely open, patient aware) when MRCP is done No plans for OR today, as MRCP is not yet performed Continue NPO with IVF Continue scheduled zosyn ?? Nutrition: Current Diet and/or Nutritional Supplementation ordered: DIET NPO I have reviewed this patient's history and physical, family history, acute and chronic diagnoses, all pertinent notes, vitals, labs, medications and images during my development of the above assessment and plan. Disposition: Anticipate return to floor bed Post-op Sherrell Cole MD, 11/02/2019 6:17 AM TACS Resident On-Call Pager [phone].[facility] TACS Attending On-Call - please refer to Trauma and Acute Care Surgery (TACS) page on [facility] website Admit Date: 11/01/2019 LOS: 0 days Operations/Procedures Course: Pending SUBJECTIVE: Chief Complaint Patient presents with ??? Abdominal Pain pt arrived to ed with co RUQ abdominal pain. +N/V. Pain in the back has been occuring all day and the abdomen started around 8pm. Active Hospital Problems Diagnosis ??? Right upper quadrant abdominal pain ??? Acute calculous cholecystitis ??? History of gastroschisis Resolved Hospital Problems No resolved problems to display. HPI: Lis Phelan is a 34 y.o. female 34 year-old female with PMHx of biliary dyskinesia (Gallbladder ER 25%), eosinophilic esophagitis, pre-diabetes, obesity, and asthma admitted to the medicine team with 1d abdominal pain. Patient reports prior episodes in last 9 years after a . Reports symptoms associated with eating and typically self-resolve. Reports that since yesterday she has had severe abdominal pain associated with nausea and vomiting. She was admitted to the floor and started on IV antibiotics. Labs on admission notable for WBC 11.0, no elevated LFTs. General Surgery Consulted for evaluation for cholecystectomy. ?? Patient reports past surgical history of gastroschisis, as well as ex-lap for lysis of adhesions c/b infection and ultimately ventral hernia repair with mesh. Patient unsure what type of mesh was used for closure. Believes her last surgery was done at [facility]. Allergies Allergen Reactions ??? Chantix [Varenicline] Anaphylaxis ??? Metronidazole Nausea and Vomiting Other reaction(s): Vomiting ??? Demerol [Meperidine] Swelling ??? Tramadol Hives Current Facility-Administered Medications: ??? [] sodium chloride 0.9% infusion, , IV, Continuous, Demario Koo DO, Last Rate: 125 mL/hr at 11/01/19 2341 ??? piperacillin-tazobactam (ZOSYN) 3.375 gram in dextrose (iso-osmotic) 50 mL IVPB, 3.375 Gram, IV, q 6 hour, Demario Koo DO, Last Rate: 100 mL/hr at 11/02/19 0525, 3.375 Gram at 11/02/19 0525 ??? morphine 4 mg/mL injection 2 mg, 2 mg, IV, q 4 hour PRN, Nuspl, Jennifer E, DO, 2 mg at 11/01/19 1742 ??? buPROPion HCL (WELLBUTRIN XL) SR 24 hour tablet 150 mg, 150 mg, Oral, Daily EARLY, Nuspl, Jennifer E, DO, 150 mg at 11/01/19 0649 ??? pantoprazole (PROTONIX) tablet 40 mg, 40 mg, Oral, Daily, Nuspl, Jennifer E, DO, 40 mg at 11/01/19 0930 ??? sertraline (ZOLOFT) tablet 100 mg, 100 mg, Oral, Daily, Nuspl, Jennifer E, DO, 100 mg at 11/01/19 0930 ??? naloxone (NARCAN) 0.4 mg/mL injection 0.1 mg, 0.1 mg, IV, See Admin Notes, Yanetspl Jennifer E, DO ??? acetaminophen (TYLENOL) tablet 650 mg, 650 mg, Oral, q 6 hour PRN, Nuspl, Jennifer E, DO ??? ondansetron (ZOFRAN ODT) tablet 4 mg, 4 mg, Oral, q 6 hour PRN, Jennifer Doe DO, 4 mg at 11/01/19 1742 ??? ondansetron (ZOFRAN) 4 mg/2 mL injection 4 mg, 4 mg, IV, q 6 hour PRN, Shobha Choi MD, 4 mg at 11/01/19 2336 ??? dextrose 5% - sodium chloride 0.9% infusion, , IV, See Admin Notes, Shobha Choi MD ??? dextrose 50% (D50) syringe 12.5 Gram, 12.5 Gram, IV, See Admin Notes, Shobha Choi MD ??? dextrose 50% (D50) syringe 25 Gram, 25 Gram, IV, See Admin Notes, Shobha Choi MD ??? glucagon HCL 1 mg/mL injection 1 mg, 1 mg, IM, See Admin Notes, Shobha Choi MD ??? insulin lispro (HumaLOG) injection 0-4 Units, 0-4 Units, subCUT, q 4 hour, Shobha Choi MD ??? enoxaparin (LOVENOX) injection 60 mg, 0.5 mg/kg, subCUT, q 24 hour, Therese Maurice DO, 60 mg at 11/01/19 1212 ??? [DISCONTINUED] enoxaparin (LOVENOX) injection 40 mg, 40 mg, subCUT, q 24 hour, Therese Maurice DO Past Medical History: Diagnosis Date ??? Arthritis ??? Asthma ??? Biliary dyskinesia ??? Depression ??? Diabetes mellitus ??? Difficult intravenous access VERY hard IV stick use requests ultrasound ??? Eosinophilic esophagitis ??? GERD (gastroesophageal reflux disease) ??? Headache ??? History of shingles ??? Hyperlipidemia Past Surgical History: Procedure Laterality Date ??? HX GASTROSCHISIS CLOSURE ??? HX SURGICAL OTHER 04/2004 adhesion removed ??? CA ESOPHAGOGASTRODUODENOSCOPY TRANSORAL DIAGNOSTIC N/A 05/17/2019 ESOPHAGOGASTRODUODENOSCOPY performed by Jena Cerda MD at [facility] Family History Problem Relation Name [...] level: Not on file Occupational History Employer: [employer] Social Needs ??? Financial resource strain: Not on file ??? Food insecurity: Worry: Not on file Inability: Not on file ??? Transportation needs: Medical: Not on file Non-medical: Not on file Tobacco Use ??? Smoking status: Former Smoker Packs/day: 1.00 Years: 10.00 Pack years: 10.00 Last attempt to quit: 03/02/2016 Years since quittin.6 ??? Smokeless tobacco: Never Used Substance and Sexual Activity ??? Alcohol use: No ??? Drug use: No ??? Sexual activity: Not on file Lifestyle ??? Physical activity: Days per week: Not on file Minutes per session: Not on file ??? Stress: Not on file Relationships ??? Social connections: Talks on phone: Not on file Gets together: Not on file Attends [employer] service: Not on file Active member of club or organization: Not on file Attends meetings of clubs or organizations: Not on file Relationship status: Not on file ??? Intimate partner violence: Fear of current or ex partner: Not on file Emotionally abused: Not on file Physically abused: Not on file Forced sexual activity: Not on file Other Topics Concern ??? Not on file Social History Narrative ??? Not on file Review of Systems: Review of Systems Constitutional: Negative for fever. HENT: Negative for hearing loss. Eyes: Negative for blurred vision. Respiratory: Negative for cough. Cardiovascular: Negative for chest pain. Gastrointestinal: Positive for abdominal pain. Negative for vomiting. Genitourinary: Negative for dysuria. Musculoskeletal: Negative for myalgias. Skin: Negative for rash. Neurological: Negative for dizziness. Endo/Heme/Allergies: Does not bruise/bleed easily. Psychiatric/Behavioral: Negative for depression. OBJECTIVE: Blood pressure (!) 151/85, pulse 72, temperature 98.2 ??F (36.8 ??C), temperature source Oral, resp. rate 18, height 5' 6 (1.676 m), weight 111.1 kg (245 lb), SpO2 100 %, not currently . Intake/Output Summary (Last 24 hours) at 11/02/2019 0617 Last data filed at 11/01/2019 2333 Gross per 24 hour Intake 360 ml Output 0 ml Net 360 ml Temp (24hrs), Av.1 ??F (36.7 ??C), Min:97.5 ??F (36.4 ??C), Max:98.6 ??F (37 ??C) Physical Exam: Gen alert, in no distress Neuro Grossly normal HEENT Normal Heart regular rate Lungs normal respiratory effort Abdomen Non-distended, no rebound, no guarding RUQ/epigastric TTP Well healed transverse incision scar Extremities moves all extremities equally Skin Skin color, texture, turgor normal. No rashes or lesions Other Normal mood and affect Labs/Imaging: Results for orders placed or performed during the hospital encounter of 11/01/19 (from the past 24 hour(s)) CBC WITH DIFFERENTIAL Result Value Ref Range WBC 8.9 4.0 - 9.8 K/uL RBC 4.13 3.90 - 4.90 M/uL HEMOGLOBIN 12.6 11.8 - 14.8 g/dL HEMATOCRIT 38.5 35.5 - 44.0 % MCV 93.2 82.0 - 99.0 fL MCH 30.5 27.2 - 32.6 pg MCHC 32.7 31.5 - 35.5 g/dL RDW 13.3 11.5 - 14.5 % RDW-STDEV 45.2 37.1 - 48.7 fL PLATELETS 251 140 - 350 K/uL MPV 9.2 (L) 9.3 - 12.4 fL NEUTROPHILS 58 % LYMPHOCYTES 26 % MONOCYTES 8 % EOSINOPHILS 7 % BASOPHILS 0 % IMMATURE GRANULOCYTES 0 % NEUTROPHIL ABSOLUTE 5.14 1.90 - 7.00 K/uL LYMPHOCYTE ABSOLUTE 2.35 0.70 - 4.50 K/uL MONOCYTE ABSOLUTE 0.75 0.10 - 1.30 K/uL EOSINOPHIL ABSOLUTE 0.61 0.00 - 0.70 K/uL BASOPHILS ABSOLUTE 0.04 0.00 - 0.20 K/uL IMMATURE GRANULOCYTES ABSOLUTE 0.02 0.00 - 0.03 K/uL POC GLUCOSE Result Value Ref Range POC GLUCOSE 101 (H) 74 - 99 mg/dL FACILITIES SPECIALIST NAME SHAHID BHAKTA POC GLUCOSE Result Value Ref Range POC GLUCOSE 103 (H) 74 - 99 mg/dL FACILITIES SPECIALIST NAME SHAHID BHAKTA POC GLUCOSE Result Value Ref Range POC GLUCOSE 92 74 - 99 mg/dL FACILITIES SPECIALIST NAME ZAHRA GREGORY POC GLUCOSE Result Value Ref Range POC GLUCOSE 114 (H) 74 - 99 mg/dL COMMENT, GLU POC Notified RN/MD FACILITIES SPECIALIST NAME EDER ARVIZU POC GLUCOSE Result Value Ref Range POC GLUCOSE 138 (H) 74 - 99 mg/dL COMMENT, GLU POC Notified RN/MD FACILITIES SPECIALIST NAME EDER ARVIZU POC GLUCOSE Result Value Ref Range POC GLUCOSE 100 (H) 74 - 99 mg/dL COMMENT, GLU POC Notified RN/MD FACILITIES SPECIALIST NAME EDER ARVIZU Sherrell Cole MD Associated attestation - Allan Wheeler MD - 11/02/2019 5:02 PM CDT I attest that I was present and supervised resident, Dr Cole and agree with their evaluation, assessment, and plan of care with my comments as below. I also conducted my own independent examinationand then directed the evaluation,and management of this patient based on a thorough exam,with review of pertinent labs, xrays, including recommendations of consultants for the clinical direction of the care and treatment of the patient. This management was discussed with resident, and I was presentduring the critical portion of the examination. I have spent no less than 30 minutes involved in the care and evaluation, including review of labs, xrays and history of this patient. This is excluding any procedures. MRI done mild CBD dilitation nothing acutely remarkable about the gallbladder other than gallstones. I explained very clearly today that she has had biliary colic not acute cholecystitis, she has been diagnosed with biliary dyskinesia in the past and is fed up with recurrent symptoms. I will not attempt this laparoscopically. Risks and alternatives also discussed. Nutrition: Current Diet and/or Nutritional Supplementation ordered: DIET FAT CONTROL DIET NPO ALLAN WHEELER MD * Valdez Solis MD - 11/01/2019 9:55 AM CDT Krystin Resident Progress Note Patient Name: Lis Phelan Supervising Resident: Josafat Attending Physician: Ashley Helms MD Primary Care Provider: Francis Pereyra MD Date of Admission: 11/01/2019 Date of Service: 11/01/2019 Length of Stay: LOS: 0 days Previous history of present illness and review of systems have been reviewed today as documented inthe H&P on 11/01/2019; medications, labs, studies, notes, orders and consults have been reviewed. I have reviewed the notes from admission. Assessment and Plan: Active Problems: Acute Calculous Cholecystitis - Patient has a history of biliary dyskinesia, initially had seen GI and planned to have a cholecystectomy if symptoms had not resolved with eosinophilic esophagitis treatment - CT shows evidence of calculous cholecystitis, Leal's positive on exam - RUQ US-- common bile duct dilatation, cholelithiasis, severe hepatic steatosis, no gallbladder wall thickening - Antibiotics: Zosyn 3.375g q6h - Antiemetics: Zofran ODT - IVF: NS 125cc/hr - NPO at midnight, clear liquid diet now - General surgery consulted-- requested that we obtain records from [facility], surgery today -[facility] states pt did not have her mesh placed there. They do have records of operative management for intra-abdominal abscess. Requested these records -Pt states she may have had procedure at [facility]-- called and left message but office currently closed ?? Eosinophilic Esophagitis - Continue CERTIFIED NEURODIAGNOSTIC TECHNOLOGIST PPI ?? Hx Biliary Dyskinesia - HIDA scan reported EF 25% 04/2019 from [facility] in [place], [place] - NPO for now - Surgery consulted, appreciate recommendations ?? 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 Obesity BMI 40.35 New Onset HTN -likely pain related Chronic/Stable/Resolved Problems: Eosinophilic Esophagitis - Continue CERTIFIED NEURODIAGNOSTIC TECHNOLOGIST PPI ?? Hx Biliary Dyskinesia - HIDA scan reported EF 25% 04/2019 from [facility] in [place], [place] - NPO for now - Surgery consulted, appreciate recommendations ?? 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 Obesity BMI 40.35 Nutrition: Current Diet and/or Nutritional Supplementation ordered: DIET CLEAR LIQUID Quality/Safety/Core Measures/Disposition Planning: DVT PRX:Enoxaparin Indwelling Lines/Devices: Peripheral IV Ordonez: absent; reason: N/A Patient's activity prior to admission: independent Patient lives with their family in a single family home PT and OT: Yes Code Status: Full Code Current Planned Disposition - Home which I anticipate will be completed 3-5 days Subjective/Overnight on-going RUQ tenderness, tolerating clear liquid diet Objective BP (!) 158/101 (BP Location: Right arm, Patient Position (BP): Sitting) Pulse 87 Temp 97.9 ??F (36.6 ??C) (Oral) Resp 16 Ht 5' 6 (1.676 m) Wt 111.1 kg (245 lb) SpO2 97% No BMI 39.54 kg/m?? Temp (24hrs), Av.9 ??F (36.6 ??C), Min:97.8 ??F (36.6 ??C), Max:97.9 ??F (36.6 ??C) Exam: Gen alert, cooperative, no distress, appears stated age Lungs clear to auscultation bilaterally Heart regular rate and rhythm, JVP absent, S1, S2 normal, no murmur, click, rub or gallop Abdomen soft, non-tender. Bowel sounds normal. No masses, No organomegaly Extremities extremities normal, atraumatic, no cyanosis or edema Mental Status A& O x 3 Data: I have reviewed all new labs and studies resulted and pertinent ones are noted below CBC: Recent Labs 11/01/19 0053 11/01/19 0658 WBC 11.0* 8.9 HGB 12.9 12.6 HCT 38.1 38.5 PLT 284 251 MCV 91.8 93.2 BMP: Recent Labs 11/01/19 0030 NA 138 K 5.5* CL 103 CO2 20* ANIONGAP 15 CA 9.8 GLUCOSE 143* BUN 11 CREAT 0.55 Valdez Perez MD 11/01/2019 9:55 AM I discussed the assessment of plan for the above patient with Ashley Pinto MD This note was transcribed using [place] naturally speaking computerized voice recognition without a human ham clerk. This report may or may not have been adjusted for typographical, grammaticaland syntax errors. This patient is covered by internal medicine residents To reach Internal Medicine covered patients: Thursday-Thursday 7 AM- 7 PM: Please contact the resident via secure chat. The resident responsible for the patient will be on the Treatment Team listed as Resident If no response you may call the immigration inspector environmental intern at zone phone [phone]. If no response you may call the immigration inspector senior resident at zone phone [phone] If no response please contact the attending of record via secure chat. 7 PM to 7 AM: The long call/night float resident should be listed as Resident on the treatment team and can be reached via secure chat. If no response you may call the immigration inspector environmental intern at zone phone [phone]. If no response you may call the immigration inspector senior resident at zone phone [phone] If no response please contact the Rapid Access Hospitalist via secure chat Thursday and Thursday: 7 AM-12 PM: Please contact the resident via secure chat. The resident responsible for the patient will be on the Treatment Team listed as Resident 12 PM-7 AM: The long call/night float resident should be listed as Resident on the treatment teamand can be reached via secure chat. If no response call the immigration inspector environmental intern at zone phone [phone]. If no response you may call the immigration inspector senior resident at zone phone [phone] If no response please contact the Rapid Access Hospitalist via secure chat documented in this encounter H&P Notes * BrookKrisbeto Madden DO - 11/01/2019 4:26 AM CDT [facility] Internal Medicine Teaching Service History & Physical Patient Name: Lis Phelan Supervising Resident: Dipak Ambrosio MD Attending Physician: Shobha Choi MD Primary Care Provider: Francis Pereyra MD Date of Admission: 11/01/2019 Date of Service: 11/01/2019 Chief Complaint: Abdominal Pain HPI: Lis Phelan is a 34 y.o. female who was in their usual state of health until yesterday morning when she started to have back pain. Last night at about 8pm she began to vomit and dryheave. Non-bilious and non bloody as far as she knows. She had chicken breasts, mashed potatoes, and ranch cauliflower for dinner- similar to what she would normally eat. Denies diarrhea. She states she is slightl constipated most of the time. She was born with gastroschisis. Pain got progressivelyworse. She did not try taking anything for this nausea and vomiting. She was unable to keep even fluids down. She denies fevers/chills. She has a history of eosinophilic esophagitis and biliary dyskinesia- she has seen both GI and general surgery. States she has had similar symptoms daily without this severity- this level was to the point where she could not breathe. ED Course: At presentation, vital signs stable, afebrile. CBC notable for mild leukocytosis of 11. CMP notablefor hyperkalemia 5.5. Lipase within normal limits at 21. UA not significant. CT abdomen pelvis showed findings consistent with acute calculus cholecystitis with suspected tethering of bowel loops to the gallbladder. She was given 4 mg of morphine x2, 1 dose of Zofran 4 mg, 1 L IV normal saline bolus, started on Zosyn 3.375 g and IV normal saline at 125 cc/h. Past Medical History: Past Medical History: Diagnosis Date ??? Arthritis ??? Asthma ??? Depression ??? Diabetes mellitus ??? Difficult intravenous access VERY hard IV stick use requests ultrasound ??? GERD (gastroesophageal reflux disease) ??? Headache ??? History of shingles ??? HTN (hypertension) ??? Hyperlipidemia Past Surgical History: Past Surgical History: Procedure Laterality Date ??? HX GASTROSCHISIS CLOSURE ??? HX SURGICAL OTHER 04/2004 adhesion removed ??? CA ESOPHAGOGASTRODUODENOSCOPY TRANSORAL DIAGNOSTIC N/A 05/17/2019 ESOPHAGOGASTRODUODENOSCOPY performed by Jena Cerda MD at [facility] Prior to Admission Medications: Prior to Admission Medications Prescriptions Last Dose Informant Patient Reported? Taking? ALPRAZolam (XANAX) 0.25 mg tablet No No Sig: Take 1 Tablet (0.25 mg) by mouth 2 times daily as needed for Anxiety. albuterol HFA 90 mcg inhaler No No Sig: Take 1-2 Puffs by inhalation every 4 hours as needed for Shortness of Breath or Wheezing. buPROPion HCL (Wellbutrin XL) 150 mg Extended Release 24 hour tablet No No Sig: Take 1 Tablet (150 mg) by mouth daily instructional technologist. etonogestrel (IMPLANON SDRM) Yes No Sig: by Subdermal route. metFORMIN (GLUCOPHAGE) 500 mg tablet Yes No Si times daily. pantoprazole (PROTONIX) 40 mg Tablet, Delayed Release (E.C.) No No Sig: Take 1 Tablet (40 mg) by mouth daily. rosuvastatin (CRESTOR) 40 mg tablet Yes No Sig: Take 40 mg by mouth daily at bedtime. sertraline (ZOLOFT) 100 mg tablet Yes No Sig: Take 100 mg by mouth daily. Facility-Administered Medications: None Allergies: Allergies Allergen Reactions ??? Chantix [Varenicline] Anaphylaxis ??? Metronidazole Nausea and Vomiting Other reaction(s): Vomiting ??? Demerol [Meperidine] Swelling ??? Tramadol Hives Family History: family history includes Diabetes in her paternal grandmother; High Cholesterol in her mother; Hypertension in her mother; Kidney Disease in her paternal grandfather; Lung Cancer in her father; No Known Problems in her daughter and son; Stroke in her father; Unknown in her brother, maternal grandfather, and maternal grandmother. Social History: reports that she quit smoking about 3 years ago. She has never used smokeless tobacco. She reports that she does not drink alcohol or use drugs. Review of Systems: GEN: No weight loss or weight gain, energy level stable Skin: No rashes or eruptions HEENT: no sinus complaints Lungs: No cough, shortness of breath, or wheezing Cardiac: No CP, SOB,HX of TN, or angina GI: No n/v, no abdominal pain or change in bowel habits : No dysuria Musculoskeletal: No back pain, neck pain or joint pain or swelling NEURO: no prior cva or seizure All other ROS reviewed and are negative Objective: Body mass index is 40.35 kg/m??. BP (!) 133/95 Pulse 84 Temp 97.8 ??F (36.6 ??C) (Oral) Resp 18 Ht 5' 6 (1.676 m) Wt 113.4 kg (250 lb) SpO2 92% BMI 40.35 kg/m?? , Temp (24hrs), Av.8 ??F (36.6 ??C), Min:97.8 ??F (36.6 ??C), Max:97.8 ??F (36.6 ??C) General appearance alert, cooperative, no distress, appears stated age Head Normocephalic, without obvious abnormality, atraumatic Eyes Conjunctivae/corneas clear. PERRL, EOM's intact Ears Normal external exam. Hearing grossly intact. Throat Lips, mucosa, and tongue normal. Teeth and gums normal Neck Supple, symmetrical, trachea midline, no adenopathy, thyroid: not enlarged, symmetric, no tenderness/mass/nodules Back ROM normal. No tenderness Lungs CTAB, no w/r/r Chest wall No tenderness Heart Regular rate and rhythm, no JVD, S1, S2 normal, no murmur. No rub or gallop Abdomen TTP in RUQ, Leal's positive. No rebound or guarding. BSx4. Extremities Normal, no edema Pulses 2+ equal in all extremities Skin No overt rashes, lesions, bruises on skin exam Neurologic A&Ox3, no focal neurologic deficits appreciated Rectal deferred Date Base: CBC: Recent Labs 11/01/19 0053 WBC 11.0* HGB 12.9 HCT 38.1 PLT 284 MCV 91.8 Lab Results Component Value Date/Time NA 138 11/01/2019 12:30 AM K 5.5 (H) 11/01/2019 12:30 AM CL 103 11/01/2019 12:30 AM CO2 20 (L) 11/01/2019 12:30 AM CA 9.8 11/01/2019 12:30 AM BUN 11 11/01/2019 12:30 AM CREAT 0.55 11/01/2019 12:30 AM GLUCOSE 143 (H) 11/01/2019 12:30 AM TOTALPROTEIN 7.5 11/01/2019 12:30 AM ALBUMIN 4.2 11/01/2019 12:30 AM BILITOTAL 0.3 11/01/2019 12:30 AM ALKPHOS 82 11/01/2019 12:30 AM AST 27 11/01/2019 12:30 AM ALT 26 11/01/2019 12:30 AM ANIONGAP 15 11/01/2019 12:30 AM BCRATIO 16 07/19/2019 08:40 AM Lab Results Component Value Date/Time LIPASE 21 11/01/2019 12:30 AM Results for orders placed during the hospital encounter of 11/01/19 CT ABDOMEN PELVIS W CONTRAST Narrative THIS IS A PRELIMINARY REPORT FROM [facility] PROCEDURE INFORMATION: Exam: CT Abdomen And Pelvis With Contrast Exam date and time: 11/01/2019 1:30 AM Age: 34 years old Clinical indication: Pain TECHNIQUE: Imaging protocol: Computed tomography of the abdomen and pelvis with intravenous contrast. COMPARISON: No relevant prior studies available. FINDINGS: Lungs: The lung bases are unremarkable. Liver: Normal. No mass. Gallbladder and bile ducts: There is an enlarged, thickened gallbladder with pericholecystic fluid and fat stranding, compatible with cholecystitis. There is a density in the body of the gallbladder compatible with a gallstone or tumefactive sludge, measuring 13 mm in diameter. The common bile duct is within normal limits. There are some decompressed loops of small bowel which appear to be tethered or adhesed to the subhepatic region, possibly related to the inflamed gallbladder. Pancreas: Normal. No ductal dilation. Spleen: Normal. No splenomegaly. Adrenals: Normal. No mass. Kidneys and ureters: A tiny nonobstructive calculus is seen in the inferior pole of the right kidney. The left kidney appears normal. Stomach and bowel: There is no bowel obstruction or bowel wall thickening. Note is made of a ectopic cecum in the right mid abdominal region. The remainder of the colon is unremarkable. Appendix: The ileocolic junction and appendix appear normal. Intraperitoneal space: There is trace free fluid in the pelvis. Vasculature: Unremarkable. No abdominal aortic aneurysm. Lymph nodes: Unremarkable. No enlarged lymph nodes. Bladder: Unremarkable as visualized. Reproductive: There are some cystic spaces present in the right adnexa. Bones/joints: Unremarkable. No acute fracture. Soft tissues: Unremarkable. IMPRESSION: Findings compatible with acute calculous cholecystitis. Suspected tethering of small bowel loops to the inflamed gallbladder. No bowel obstruction. DICTATED BY: Brent Marcial on Thursday11/01/2019 02:53AM CDT Assessment and Plan: Acute Calculous Cholecystitis - Patient has a history of biliary dyskinesia, initially had seen GI and planned to have a cholecystectomy if symptoms had not resolved with eosinophilic esophagitis treatment - CT shows evidence of calculous cholecystitis, Leal's positive on exam - RUQ US pending - Antibiotics: Zosyn 3.375g q6h - Antiemetics: Zofran ODT - IVF: NS 125cc/hr - NPO for possible endoscopic interventions - General surgery consulted, appreciate recommendations Eosinophilic Esophagitis - Continue CERTIFIED NEURODIAGNOSTIC TECHNOLOGIST PPI Hx Biliary Dyskinesia - HIDA scan reported EF 25% 04/2019 from [facility] in [place], [place] - NPO for now - Surgery consulted, appreciate recommendations MDD/MARISABEL - Continue CERTIFIED NEURODIAGNOSTIC TECHNOLOGIST Wellbutrin and Zoloft Obesity BMI 40.35 DVT PRX:sequential compression devices Indwelling Lines/Devices: Peripheral IV Ordonez: absent; reason: N/A Patient's activity prior to admission: independent PT and OT: No Diet: NPO Nutritional Supplementation: N/A Code Status: Full Code Current Planned Disposition - {Home which I anticipate will be completed 2-3 days I discussed the assessment of plan for the above patient with MD Jennifer Yung, DO 11/01/2019 4:26 AM. Plan discussed with the patient, questions answered; patient agrees with current plan. More than 50 minutes were spent in the care of this patient today Abdominal Pain pathway initiated This note was transcribed using TVTY computerized voice recognition without a human ham clerk. This report may or may not have been adjusted for typographical, grammaticaland syntax errors. This patient is covered by internal medicine residents To reach Internal Medicine covered patients: Thursday-Thursday 7 AM- 7 PM: Please contact the resident via secure chat. The resident responsible for the patient will be on the Treatment Team listed as Resident If no response you may call the immigration inspector environmental intern at zone phone [phone]. If no response you may call the immigration inspector senior resident at zone phone [phone] If no response please contact the attending of record via secure chat. 7 PM to 7 AM: The long call/night float resident should be listed as Resident on the treatment team and can be reached via secure chat. If no response you may call the immigration inspector environmental intern at zone phone [phone]. If no response you may call the immigration inspector senior resident at zone phone [phone] If no response please contact the Rapid Access Hospitalist via secure chat Thursday and Thursday: 7 AM-12 PM: Please contact the resident via secure chat. The resident responsible for the patient will be on the Treatment Team listed as Resident 12 PM-7 AM: The long call/night float resident should be listed as Resident on the treatment teamand can be reached via secure chat. If no response call the immigration inspector environmental intern at zone phone [phone]. If no response you may call the immigration inspector senior resident at zone phone [phone] If no response please contact the Rapid Access Hospitalist via secure chat Associated attestation - Shobha Choi MD - 11/01/2019 6:16 AM CDT [facility] Adult Hospitalist Attending Note I reviewed the medical record including the resident???s note (available as hyperlink below) on 11/01/2019. I reviewed and confirmed the history, physical findings, laboratory findings, assessment andplan with the resident on rounds. I also performed the critical or barreto portion(s) of the service asdocumented below, and was directly involved in the management of the patient and supervised the care provided. I have reviewed the physical exam findings in the resident???s note; my notable physical exam findings include: Gen NAD HEENT CV Resp PERRL, EOMI, NC/AT S1S2+, RRR CTAB Abd Soft, RUQ TTP, no rebound/guarding MSK Normal tone Neuro CN grossly intact Ext No edema Skin Warm/dry Brief HPI: 34-year-old female with history of gastroschisis s/p 3 intraabdominal surgeries (last [id number] for adhesion lysis), diabetes, asthma, depression, eosinophilic esophagitis, and history of hypoactive/dyskinetic gallbladder (HIDA 2019 25% EF) who presented with complaint of right upper quadrant abdominal pain. In the emergency department she was found to have acute calculous cholecystitiswith suspected tethering of bowel loops to the inflamed gallbladder on CT of her abdomen. She reports that her sharp abdominal pain began around 8 PM tonight with radiation to her mid back. She had associated nausea and bilious/partially digested food, nonbloody vomiting. Last year she was diagnosed with EE, as well as, biliary dyskinesia. She was seen by Dr. Todd with surgery, who recommended treatment of EE before considering CCK. She reports compliance with her PPI but has continued to have RUQ pain. She denies F/C, CP, SOB, diarrhea. Surgery was consulted in the ED. Notable amendments/additions to the assessment and plan include: Principal Problem: Acute calculous cholecystitis -CT abdomen and pelvis shows acute calculous cholecystitis with suspected tethering of bowel loops to the inflamed gallbladder. - Zosyn -Lipase is normal. LFT normal, trend CMP. -Pain control as needed. Careful monitoring of vitals including heart rate, respiratory rate, bloodpressure, and O2 sat while on IV narcotics. Naloxone is available if needed. -IV antiemetic as needed. -IV fluid: NS 125cc/hr. -Serial abdominal exams. -Monitor strict ins and outs, watch renal indices. -Continue supportive care. - NPO/ice chips. - RUQ US - Surgery consulted. EE - gasfitter protonix MDD - gasfitter wellbutrin, zoloft DM - Hold home Metformin - Start hyperglycemia pathway with SSI and Q4H accuchecks Hx gallbladder dyskinesia- EF 25% in 05/2019. Supportive care, f/u surgery recommendations. I reviewed the resident note and agree with the documented findings and plan of care. I have personally reviewed the ER documentation, admission labs, and admission imaging studies today. Additionally, I have personally reviewed previous hospital documentation, office notes, laboratory data, and imaging studies relevant to this encounter. More than 70 minutes were spent in the care of this patient today; more than 50% was spent in discussion of expected course of disease, discussion of prognosis, discharge planning, coordination of care and discussion of lab and test results. This note was created using dictation software, as such there may be word substitutions or errors. Every effort was taken to correct grammatical errors. Shobha Choi MD [facility] Hospitalist For patients admitted by myself between 9pm-7am, please contact me via [employer] secure message with anyquestions or concerns. Outside above hours, the attending has changed, contact attending listed in [place] or locate patient on the hospitalist e-list and contact the current attending. documented in this encounter Consult Notes * Allan Wheeler MD - 11/01/2019 8:44 AM CDTAssociated Order(s): IP CONSULT TO GENERAL SURGERY Images from the original note were not included. DATE: 11/01/2019 NAME: Lis Phelan : 1985 CSN: [id number] I attest that I was present and supervised resident, Dr Weathers on 11/01/2019 and agree with their evaluation, assessment, and plan of care with my comments as below. I also conducted my own independent examination and then directed the evaluation,and management of this patient based on a thorough exam,with review of pertinent labs, xrays, including recommendations of consultants for the clinical direction of the care and treatment of the patient. This management was discussed with resident, Dr Weathers and I was present during the critical portion of the examination. I have spent no less than 60 minutes involved in the care and evaluation, including review of labs, xrays and history of this patient. This is excluding any procedures She has been seen in years past for biliary dyskinesia, US with stones will f/u on may require opencholecystectomy Nutrition: Current Diet and/or Nutritional Supplementation ordered: DIET NPO ALLAN WHEELER MD [facility] Surgery H&P/Consult ASSESSMENT/PLAN: Lis Phelan is a 34 y.o. female with complex past surgical history and history of biliary dyskinesia with signs and symptoms of acute cholecystitis. - Will need prior operative reports for appropriate surgical planning - No plan for OR today - Will discuss timing of cholecystectomy pending availability of records and OR scheduling - High risk of open cholecystectomy given multiple prior abdominal procedures - Continue IV zosyn - General Surgery Team will continue to follow See orders. I have reviewed this patient's history and physical, family history, acute and chronic diagnoses, all pertinent notes, vitals, labs, medications and images during my development of the above assessment and plan. I discussed case with Dr. Hinojosa and Dr. Wheeler. Niyah Weathers MD, 11/01/2019 8:45 AM TACS Resident On-Call Pager [phone].TACS TACS Attending On-Call - please refer to Trauma and Acute Care Surgery (TACS) page on [facility] website Subjective: Chief Complaint Patient presents with ??? Abdominal Pain pt arrived to ed with co RUQ abdominal pain. +N/V. Pain in the back has been occuring all day and the abdomen started around 8pm. Active Hospital Problems Diagnosis ??? Right upper quadrant abdominal pain ??? Acute calculous cholecystitis ??? History of gastroschisis Resolved Hospital Problems No resolved problems to display. HPI: Lis Phelan is a 34 y.o. female with PMHx of biliary dyskinesia (Gallbladder ER 25%), eosinophilic esophagitis, pre-diabetes, obesity, and asthma admitted to the medicine team with 1d abdominal pain. Patient reports prior episodes in last 9 years after a . Reports symptoms associated with eating and typically self-resolve. Reports that since yesterday she has had severe abdominalpain associated with nausea and vomiting. She was admitted to the floor and started on IV antibiotics. Labs on admission notable for WBC 11.0, no elevated LFTs. General Surgery Consulted for evaluation for cholecystectomy. Patient reports past surgical history of gastroschisis, as well as ex-lap for lysis of adhesions c/b infection and ultimately ventral hernia repair with mesh. Patient unsure what type of mesh was used for closure. Believes her last surgery was done at [facility]. Allergies Allergen Reactions ??? Chantix [Varenicline] Anaphylaxis ??? Metronidazole Nausea and Vomiting Other reaction(s): Vomiting ??? Demerol [Meperidine] Swelling ??? Tramadol Hives Medications Prior to Admission Medication Sig Dispense Refill Last Dose ??? cetirizine (ZyrTEC) 10 mg tablet Take 10 mg by mouth daily. 10/31/2019 at 0800 ??? buPROPion HCL (Wellbutrin XL) 150 mg Extended Release 24 hour tablet Take 1 Tablet (150 mg) by mouth daily instructional technologist. 30 Tablet 0 10/31/2019 at 0800 ??? ALPRAZolam (XANAX) 0.25 mg tablet Take 1 Tablet (0.25 mg) by mouth 2 times daily as needed for Anxiety. 15 Tablet 0 Past Week at Unknown time ??? rosuvastatin (CRESTOR) 40 mg tablet Take 40 mg by mouth daily at bedtime. Past Month at Unknowntime ??? sertraline (ZOLOFT) 100 mg tablet Take 100 mg by mouth daily. 10/31/2019 at 0800 ??? albuterol HFA 90 mcg inhaler Take 1-2 Puffs by inhalation every 4 hours as needed for Shortnessof Breath or Wheezing. 6.7 Gram 3 10/31/2019 at Unknown time ??? metFORMIN (GLUCOPHAGE) 500 mg tablet 2 times daily. 10/30/2019 at 2200 ??? pantoprazole (PROTONIX) 40 mg Tablet, Delayed Release (E.C.) Take 1 Tablet (40 mg) by mouth daily. 60 Tablet 2 10/31/2019 at 0800 ??? etonogestrel (IMPLANON SDRM) by Subdermal route. 12/09/2018 Past Medical History: Diagnosis Date ??? Arthritis ??? Asthma ??? Biliary dyskinesia ??? Depression ??? Diabetes mellitus ??? Difficult intravenous access VERY hard IV stick use requests ultrasound ??? Eosinophilic esophagitis ??? GERD (gastroesophageal reflux disease) ??? Headache ??? History of shingles ??? Hyperlipidemia Past Surgical History: Procedure Laterality Date ??? HX GASTROSCHISIS CLOSURE ??? HX SURGICAL OTHER 04/2004 adhesion removed ??? CA ESOPHAGOGASTRODUODENOSCOPY TRANSORAL DIAGNOSTIC N/A 05/17/2019 ESOPHAGOGASTRODUODENOSCOPY performed by Jena Cerda MD at [facility] Family History Problem Relation Name [...] level: Not on file Occupational History Employer: [address] [employer] Social Needs ??? Financial resource strain: Not on file ??? Food insecurity: Worry: Not on file Inability: Not on file ??? Transportation needs: Medical: Not on file Non-medical: Not on file Tobacco Use ??? Smoking status: Former Smoker Packs/day: 1.00 Years: 10.00 Pack years: 10.00 Last attempt to quit: 03/02/2016 Years since quittin.6 ??? Smokeless tobacco: Never Used Substance and Sexual Activity ??? Alcohol use: No ??? Drug use: No ??? Sexual activity: Not on file Lifestyle ??? Physical activity: Days per week: Not on file Minutes per session: Not on file ??? Stress: Not on file Relationships ??? Social connections: Talks on phone: Not on file Gets together: Not on file Attends pres[employer]beterian service: Not on file Active member of club or organization: Not on file Attends meetings of clubs or organizations: Not on file Relationship status: Not on file ??? Intimate partner violence: Fear of current or ex partner: Not on file Emotionally abused: Not on file Physically abused: Not on file Forced sexual activity: Not on file Other Topics Concern ??? Not on file Social History Narrative ??? Not on file Review of Systems: Review of Systems Constitutional: Negative for chills and fever. HENT: Negative. Eyes: Negative. Respiratory: Negative for cough and shortness of breath. Cardiovascular: Negative for chest pain and palpitations. Gastrointestinal: Positive for abdominal pain, nausea and vomiting. Negative for blood in stool. Genitourinary: Negative. Musculoskeletal: Negative. Skin: Negative. Neurological: Negative. Objective: Patient Vitals for the past 8 hrs: BP Temp Temp src Pulse Resp SpO2 Height Weight 11/01/19 0535 -- -- -- -- -- -- 5' 6 (1.676 m) 111.1 kg (245 lb) 11/01/19 0533 (!) 158/101 97.9 ??F (36.6 ??C) Oral 87 16 97 % -- -- 11/01/19 0500 (!) 141/86 -- -- 77 -- 97 % -- -- 11/01/19 0400 (!) 133/95 -- -- 84 -- 92 % -- -- 11/01/19 0300 (!) 155/97 -- -- 92 -- 98 % -- -- 11/01/19 0225 (!) 144/95 -- -- 78 18 100 % -- -- BP (!) 158/101 (BP Location: Right arm, Patient Position (BP): Sitting) Pulse 87 Temp 97.9 ??F (36.6 ??C) (Oral) Resp 16 Ht 5' 6 (1.676 m) Wt 111.1 kg (245 lb) SpO2 97% No BMI 39.54 kg/m?? Physical Exam: Gen alert, in no distress Neuro Grossly normal HEENT Normal Heart regular rate and rhythm Lungs clear to auscultation bilaterally, normal respiratory effort on RA Abdomen Soft, tender to palpation in RUQ. +Leal's sign with deep palpation of RUQ. Transverse abdominal incision well healed Extremities intact distal pulses, moves all extremities equally, no edema, redness or tenderness inthe calves or thighs Skin Skin color, texture, turgor normal. No rashes or lesions Other Psych: appropriate mood and affect Labs/Imaging: Results for orders placed or performed during the hospital encounter of 11/01/19 (from the past 24 hour(s)) COMPREHENSIVE METABOLIC PANEL Result Value Ref Range SODIUM 138 136 - 145 mmol/L POTASSIUM 5.5 (H) 3.5 - 5.0 mmol/L CHLORIDE 103 98 - 107 mmol/L CO2 20 (L) 22 - 29 mmol/L CALCIUM 9.8 8.6 - 10.2 mg/dL BUN 11 6 - 20 mg/dL CREATININE 0.55 0.51 - 0.95 mg/dL GLUCOSE 143 (H) 74 - 99 mg/dL TOTAL PROTEIN 7.5 6.7 - 8.6 g/dL ALBUMIN 4.2 3.5 - 5.2 g/dL BILIRUBIN TOTAL 0.3 0.3 - 1.2 mg/dL ALKALINE PHOSPHATASE 82 35 - 104 U/L AST 27 <33 U/L ALT 26 <34 U/L GFR >60 >=60 mL/min/1.73 sq meter GFR, >60 >=60 mL/min/1.73 sq meter ANION GAP 15 8 - 16 mmol/L LIPASE Result Value Ref Range LIPASE 21 13 - 60 U/L CBC WITH DIFFERENTIAL Result Value Ref Range WBC 11.0 (H) 4.0 - 9.8 K/uL RBC 4.15 3.90 - 4.90 M/uL HEMOGLOBIN 12.9 11.8 - 14.8 g/dL HEMATOCRIT 38.1 35.5 - 44.0 % MCV 91.8 82.0 - 99.0 fL MCH 31.1 27.2 - 32.6 pg MCHC 33.9 31.5 - 35.5 g/dL RDW 13.3 11.5 - 14.5 % RDW-STDEV 45.1 37.1 - 48.7 fL PLATELETS 284 140 - 350 K/uL MPV 9.3 9.3 - 12.4 fL NEUTROPHILS 59 % LYMPHOCYTES 26 % MONOCYTES 9 % EOSINOPHILS 6 % BASOPHILS 0 % IMMATURE GRANULOCYTES 1 % NEUTROPHIL ABSOLUTE 6.45 1.90 - 7.00 K/uL LYMPHOCYTE ABSOLUTE 2.85 0.70 - 4.50 K/uL MONOCYTE ABSOLUTE 0.94 0.10 - 1.30 K/uL EOSINOPHIL ABSOLUTE 0.70 0.00 - 0.70 K/uL BASOPHILS ABSOLUTE 0.04 0.00 - 0.20 K/uL IMMATURE GRANULOCYTES ABSOLUTE 0.05 (H) 0.00 - 0.03 K/uL URINALYSIS WITH REFLEX MICROSCOPIC Result Value Ref Range COLOR UA Yellow Pale to Dark Yellow CLARITY UA Clear Clear SPECIFIC GRAVITY UA 1.016 1.003 - 1.035 PH UA 6.0 5.0 - 8.0 LEUKOCYTE ESTERASE UA Negative Negative NITRITE UA Negative Negative PROTEIN UA Negative Negative GLUCOSE UA Negative Negative KETONES UA Negative Negative UROBILINOGEN UA Normal <2.0 mg/dL BILIRUBIN UA Negative Negative BLOOD UA Negative Negative POC , URINE Result Value Ref Range HCG QUAL URINE Negative Negative FACILITIES SPECIALIST NAME TONIO MALCOLM POC SPECIFIC GRAVITY UA 1.020 1.000 - 1.030 CBC WITH DIFFERENTIAL Result Value Ref Range WBC 8.9 4.0 - 9.8 K/uL RBC 4.13 3.90 - 4.90 M/uL HEMOGLOBIN 12.6 11.8 - 14.8 g/dL HEMATOCRIT 38.5 35.5 - 44.0 % MCV 93.2 82.0 - 99.0 fL MCH 30.5 27.2 - 32.6 pg MCHC 32.7 31.5 - 35.5 g/dL RDW 13.3 11.5 - 14.5 % RDW-STDEV 45.2 37.1 - 48.7 fL PLATELETS 251 140 - 350 K/uL MPV 9.2 (L) 9.3 - 12.4 fL NEUTROPHILS 58 % LYMPHOCYTES 26 % MONOCYTES 8 % EOSINOPHILS 7 % BASOPHILS 0 % IMMATURE GRANULOCYTES 0 % NEUTROPHIL ABSOLUTE 5.14 1.90 - 7.00 K/uL LYMPHOCYTE ABSOLUTE 2.35 0.70 - 4.50 K/uL MONOCYTE ABSOLUTE 0.75 0.10 - 1.30 K/uL EOSINOPHIL ABSOLUTE 0.61 0.00 - 0.70 K/uL BASOPHILS ABSOLUTE 0.04 0.00 - 0.20 K/uL IMMATURE GRANULOCYTES ABSOLUTE 0.02 0.00 - 0.03 K/uL CT: distended gallbladder with pericholecystic fluid and wall thickening, stone vs sludge at neck of gallbladder I personally reviewed all images. Niyah Weathers MD documented in this encounter OR Notes * Operative Report - Allan Wheeler MD - 11/03/2019 10:01 PM CDT [place], [place] [address] Operative Report CSN: [id number] DATE OF SERVICE: 11/03/2019 SURGEON Allan Wheeler MD PREOPERATIVE DIAGNOSES Cholelithiasis, biliary colic, gallstones, status post gastroschisis, and two other exploratory laparotomies. POSTOPERATIVE DIAGNOSES Cholelithiasis, biliary colic, gallstones, status post gastroschisis, and two other exploratory laparotomies with mild inflammatory changes seen in the gallbladder with a stone lodged in the neck of the gallbladder. OPERATION NAME Open cholecystectomy with extensive adhesiolysis over 45 minutes with small bowel resection secondary to small bowel anticipatory enterotomy and subsequent repair. ANESTHESIA General endotracheal. LIFE SCIENCES INSTRUCTOR Sherrell Cole. OPERATIVE NOTE The patient was taken to the operating room, placed in supine position. After adequate level of general endotracheal anesthesia was obtained, the abdomen was scrubbed with Betadine. Betadine paint applied, drapes applied in standard sterile fashion. A time-out was performed. All were in agreement with the patient, procedure, timing, antibiotics, and allergies. There were being no contraindicationor voiced complaints. The operation proceeded with a standard right upper quadrant incision approximately 2 fingerbreadths below the right costal margin and extended through the subcutaneous tissue which was quite dense through the anterior rectus and external oblique fascia. The rectus muscle was bluntly dissected off and then transected with electrocautery. The posterior rectus sheath was lifted cephalad and incised and hemostat placed on this, and as I attempted to dissect the dense adhesions off this, an iatrogenic injury was made, enterotomy into the bowel. This was limited and contained, but over 50%. This was controlled by compression and additional 45 minutes plus extensive enterolysis was performed to finally identify an edematous gallbladder. Dissection proceeded over the gallbladder and cystic duct. The cystic duct was identified and it was ligated with a 2-0 silk suture ligature and then two 5 mm clips were placed across this as well. The duct was then removed retrograde from the top down to the cystic artery which was ligated with a hemoclip. The right upper quadrant was thoroughly irrigated. There was a small bile leak noted from the anterior surface of the liver that was controlled with a viable Tisseel-like substitute, VersaSeal, and seemed to control this. The small bowel was then dissected out proximally and distally. The injury was resected with ISA stapling device and then a functional end-to-end anastomosis was made with a ISA blue load. The anastomosis was inspected and several additional 3-0 Vicryls were used to control for hemostasis. The lumen was widely patent. Hemostasis was obtained and then a TA 30 blue load was placed over the enterotomy andclosed. At this point, the abdomen was vigorously lavaged with normal saline. The right upper quadrant drain was placed to lie in Morison's pouch and slightly anterior to where the anterior liver injury was made that had ceased draining bile. The cystic duct and artery were reinspected. There was no ongoing hemorrhage and hence then under direct visualization, after additional adhesiolysis to take down remaining bowel contents from the abdominal wall, the wall was closed with a running #1 looped PDS under direct visualization without iatrogenic injury. The wound was irrigated. The second layer was closed with a running #1 Vicryl suture ligature. 2-0 Vicryl was used for Vladimir's fascia. Salome were used for skin. BLOOD LOSS Approximately 100 mL. FLUIDS 2 L. COUNTS Correct. SPECIMEN Included small piece of small bowel and the gallbladder with stone in the neck of the gallbladder. COMPLICATIONS Included anticipatory enterotomy with repair and minor liver laceration with control of hemorrhage with cautery and Tisseel. ALP:MEDQ DID: [id number] Dictated by: Allan Wheeler MD * Operative Report - Allan Wheeler MD - 11/03/2019 11:44 AM CDT 11/03/2019DOS Lis Phelan [id number] Pre Op Diagnosis: Cholelithiasis biliary colic gallstones s/p gastroschesis operation and multiple abdominal surgeries Post Op Diagnosis same with some inlammatory changes Procedure Open cholecystectomy with small bowel resection and repair Surgeon: Allan Wheeler Anesthesia Gen EBL @100 Fluids 2 L Counts correct Specimen small bowel and gallbladder with stone in neck Complications anticipatory enterotomy with repair Cultures none Allan Wheeler MD, F.A.C.S. Trauma and General Surgery [id number] documented in this encounter ED Notes * Tonio Malcolm RN - 11/01/2019 5:05 AM CDT Charge nurse called and notified of ready bed at this time, transport requested. * Mayank Spear RN - 11/01/2019 4:15 AM CDT Patient resting quietly on stretcher. Equal rise and fall of chest noted. No acute distress noted at this time. Call light within reach. Will continue to monitor. * Mayank Spear RN - 11/01/2019 3:27 AM CDT Zosyn started per AUG. Patient/family has been informed about benefits and any potential clinicallysignificant side effects or other concerns regarding the administration of the drug they have just been given. * Mayank Spear RN - 11/01/2019 3:11 AM CDT Morphine given per AUG. Patient/family has been informed about benefits and any potential clinically significant side effects or other concerns regarding the administration of the drug they have justbeen given. * Kyra Daley RN - 11/01/2019 2:30 AM CDT Pt returned from CT and placed on monitor. VSS. Reports pain has improved but not completely subsided. Does report improvement in nausea. * Tonio Malcolm RN - 11/01/2019 1:37 AM CDT Pt up to use restroom at this time * Kyra Daley RN - 11/01/2019 12:54 AM CDT IV established, tolerated well. Blood obtained from IV and sent to lab. Medication given per MD order. Patient/family has been informed about benefits and any potential clinically significant side effects or other concerns regarding the administration of the drug they have just been given. * Kyra Daley RN - 11/01/2019 12:30 AM CDT 34 y/o F to ED19 for c/o RUQ pain onset tonight. +N/V. Reports hx of gall bladder issues. Denies blood in emesis. Denies changes in BM. Denies fever or chills. Pt is A&Ox4. Resp even and unlabored. Skin PWD. NAD noted at this time. * Demario Koo DO - 11/01/2019 12:01 AM CDT HISTORY OF PRESENT ILLNESS Lis Phelan, a 34 y.o. female presents to the ED with a Chief Complaint of Abdominal Pain Subjective Documented Triage Chief Complaint: Abdominal Pain 12:09 AM: Lis Phelan is a 34 y.o. female with a history of asthma, arthritis, headache, GERD, DM, depression, HTN and HLD who presents to the Emergency Department with complaints of RUQ abdominalpain radiating to her mid back. Pt reports her back started hurting earlier this morning and the RUQ pain started at 8 PM tonight. Shortly after that, she started vomiting. No medications taken for sx prior to coming here. She states she has a history of gallbladder problems. No fever. Denies chance of . Physician(s): Francis Pereyra MD History provided by: The patient Arrived by: Private vehicle General Location: RUQ of abdomen Severity: Moderate Onset quality: Sudden Duration: 4 hours Timing: Constant Progression: Unchanged Ineffective treatments: None tried Associated symptoms: abdominal pain, nausea and vomiting Associated symptoms: no chest pain, no congestion, no cough, no diarrhea, no ear pain, no fever, noheadaches, no myalgias, no rash, no shortness of breath, no sore throat and no wheezing REVIEW OF SYSTEMS Review of Systems Constitutional: Negative for chills and fever. HENT: Negative for congestion, ear pain, hearing loss, nosebleeds, sore throat and tinnitus. Eyes: Negative for photophobia, pain and visual disturbance. Respiratory: Negative for cough, chest tightness, shortness of breath and wheezing. Cardiovascular: Negative for chest pain, palpitations and leg swelling. Gastrointestinal: Positive for abdominal pain, nausea and vomiting. Negative for blood in stool anddiarrhea. Genitourinary: Negative for decreased urine volume, difficulty urinating, dysuria, flank pain and hematuria. Musculoskeletal: Positive for back pain. Negative for arthralgias, gait problem and myalgias. Skin: Negative for rash and wound. Neurological: Negative for dizziness, seizures, syncope, facial asymmetry, weakness and headaches. Psychiatric/Behavioral: Negative for agitation, behavioral problems, confusion, self-injury, sleep disturbance and suicidal ideas. All other systems reviewed and are negative. PAST MEDICAL HISTORY REVIEWED MEDICAL: Patient has a past medical history of Arthritis, Asthma, Depression, Diabetes mellitus, Difficult intravenous access, GERD (gastroesophageal reflux disease), Headache, History of shingles, HTN (hypertension), and Hyperlipidemia. She also has no past medical history of Dyspnea, History of complications due to general anesthesia, Latex sensitivity, or Obstructive sleep apnea. SURGICAL: Patient has a past surgical history that includes hx gastroschisis closure (); hx surgical other (04/2004); and pr esophagogastroduodenoscopy transoral diagnostic (N/A, 05/17/2019). FAMILY: Patient's family history includes Diabetes in her paternal grandmother; High Cholesterol in her mother; Hypertension in her mother; Kidney Disease in her paternal grandfather; Lung Cancer in her father; No Known Problems in her daughter and son; Stroke in her father; Unknown in her brother, maternal grandfather, and maternal grandmother. SOCIAL: reports that she quit smoking about 3 years ago. She has never used smokeless tobacco. She reports that she does not drink alcohol or use drugs. No history on file. Social History Other Topics Concern ??? Not on file PROBLEM LIST: Patient has Mild intermittent asthma without complication; Recurrent major depressive disorder, in partial remission; Type 2 diabetes mellitus without complication, without long-term current use of insulin; Hyperlipidemia; Morbid obesity with body mass index of 40.0-49.9; Dysphagia; Microalbuminuria; Acalculous cholecystitis; and Right upper quadrant abdominal pain on their problem list. ALLERGIES Chantix [varenicline]; Metronidazole; Demerol [meperidine]; and Tramadol HOME MEDICATIONS Patient's Home Medications Current Home Medications ALBUTEROL HFA 90 MCG INHALER ALPRAZOLAM (XANAX) 0.25 MG TABLET BUPROPION HCL (WELLBUTRIN XL) 150 MG EXTENDED RELEASE 24 HOUR TABLET ETONOGESTREL (IMPLANON SDRM) METFORMIN (GLUCOPHAGE) 500 MG TABLET PANTOPRAZOLE (PROTONIX) 40 MG TABLET, DELAYED RELEASE (E.C.) ROSUVASTATIN (CRESTOR) 40 MG TABLET SERTRALINE (ZOLOFT) 100 MG TABLET Medications Modified during this Encounter Medications Discontinued during this Encounter Objective PHYSICAL EXAM INITIAL VS BP: (!) 175/147 (11/01/192), Heart Rate: 91 bpm (11/01/192), Resp: 20 (11/01/192), Pulse: 91 (11/01/192), Temp: 97.8 ??F (36.6 ??C) (11/01/192), Temp src: Oral (11/01/192), SpO2: 99 % (11/01/192), Height: 5' 6 (167.6 cm) (11/01/192), Weight: 113.4 kg (250 lb) (11/01/192), BMI (Calculated): 40.37 (11/01/192) No LMP recorded. Patient has had an implant. Physical Exam Vitals signs and nursing note reviewed. Constitutional: General: She is not in acute distress. Appearance: She is not diaphoretic. HENT: Head: Normocephalic and atraumatic. Nose: Nose normal. Eyes: General: Right eye: No discharge. Left eye: No discharge. Conjunctiva/sclera: Conjunctivae normal. Pupils: Pupils are equal, round, and reactive to light. Neck: Musculoskeletal: Normal range of motion and neck supple. Thyroid: No thyromegaly. Vascular: No JVD. Cardiovascular: Rate and Rhythm: Normal rate and regular rhythm. Heart sounds: Normal heart sounds. No murmur. No friction rub. No gallop. Pulmonary: Breath sounds: Normal breath sounds. No stridor. No wheezing or rales. Abdominal: General: Bowel sounds are decreased. There is no distension. Palpations: Abdomen is soft. Tenderness: There is abdominal tenderness in the right upper quadrant. There is no rebound. Musculoskeletal: Normal range of motion. General: No tenderness. Skin: General: Skin is warm and dry. Coloration: Skin is not pale. Findings: No erythema or rash. Neurological: Mental Status: She is alert and oriented to person, place, and time. Cranial Nerves: No cranial nerve deficit. Coordination: Coordination normal. Psychiatric: Judgment: Judgment normal. DIAGNOSTICS LAB: CBC WITH DIFFERENTIAL - Abnormal Result Value WBC 11.0 (*) RBC 4.15 HEMOGLOBIN 12.9 HEMATOCRIT 38.1 MCV 91.8 MCH 31.1 MCHC 33.9 RDW 13.3 RDW-STDEV 45.1 PLATELETS 284 MPV 9.3 NEUTROPHILS 59 LYMPHOCYTES 26 MONOCYTES 9 EOSINOPHILS 6 BASOPHILS 0 IMMATURE GRANULOCYTES 1 NEUTROPHIL ABSOLUTE 6.45 LYMPHOCYTE ABSOLUTE 2.85 MONOCYTE ABSOLUTE 0.94 EOSINOPHIL ABSOLUTE 0.70 BASOPHILS ABSOLUTE 0.04 IMMATURE GRANULOCYTES ABSOLUTE 0.05 (*) COMPREHENSIVE METABOLIC PANEL - Abnormal SODIUM 138 POTASSIUM 5.5 (*) CHLORIDE 103 CO2 20 (*) CALCIUM 9.8 BUN 11 CREATININE 0.55 GLUCOSE 143 (*) TOTAL PROTEIN 7.5 ALBUMIN 4.2 BILIRUBIN TOTAL 0.3 ALKALINE PHOSPHATASE 82 AST 27 ALT 26 GFR >60 GFR, >60 ANION GAP 15 LIPASE - Normal LIPASE 21 URINALYSIS WITH REFLEX MICROSCOPIC - Normal COLOR UA Yellow CLARITY UA Clear SPECIFIC GRAVITY UA 1.016 PH UA 6.0 LEUKOCYTE ESTERASE UA Negative NITRITE UA Negative PROTEIN UA Negative GLUCOSE UA Negative KETONES UA Negative UROBILINOGEN UA Normal BILIRUBIN UA Negative BLOOD UA Negative EXTRA TUBE EXTRA TUBE (GREEN) POC , URINE HCG QUAL URINE Negative FACILITIES SPECIALIST NAME TONIO MALCOLM POC SPECIFIC GRAVITY UA 1.020 POC , URINE RADIOLOGY: No orders to display CT ABDOMEN PELVIS W CONTRAST (Results Pending) CT ABDOMEN PELVIS W CONTRAST (In process) Result time 11/01/19 02:53:31 In process by Interface, Dar Stl Incoming Radiology Results (11/01/19 02:53:31) Narrative: THIS IS A PRELIMINARY REPORT FROM [facility] PROCEDURE INFORMATION: Exam: CT Abdomen And Pelvis With Contrast Exam date and time: 11/01/2019 1:30 AM Age: 34 years old Clinical indication: Pain TECHNIQUE: Imaging protocol: Computed tomography of the abdomen and pelvis with intravenous contrast. COMPARISON: No relevant prior studies available. FINDINGS: Lungs: The lung bases are unremarkable. Liver: Normal. No mass. Gallbladder and bile ducts: There is an enlarged, thickened gallbladder with pericholecystic fluid and fat stranding, compatible with cholecystitis. There is a density in the body of the gallbladder compatible with a gallstone or tumefactive sludge, measuring 13 mm in diameter. The common bile duct is within normal limits. There are some decompressed loops of small bowel which appear to be tethered or adhesed to the subhepatic region, possibly related to the inflamed gallbladder. Pancreas: Normal. No ductal dilation. Spleen: Normal. No splenomegaly. Adrenals: Normal. No mass. Kidneys and ureters: A tiny nonobstructive calculus is seen in the inferior pole of the right kidney. The left kidney appears normal. Stomach and bowel: There is no bowel obstruction or bowel wall thickening. Note is made of a ectopic cecum in the right mid abdominal region. The remainder of the colon is unremarkable. Appendix: The ileocolic junction and appendix appear normal. Intraperitoneal space: There is trace free fluid in the pelvis. Vasculature: Unremarkable. No abdominal aortic aneurysm. Lymph nodes: Unremarkable. No enlarged lymph nodes. Bladder: Unremarkable as visualized. Reproductive: There are some cystic spaces present in the right adnexa. Bones/joints: Unremarkable. No acute fracture. Soft tissues: Unremarkable. IMPRESSION: Findings compatible with acute calculous cholecystitis. Suspected tethering of small bowel loops to the inflamed gallbladder. No bowel obstruction. DICTATED BY: Brent Marcial on Thursday11/01/2019 02:53AM CDT PROCEDURES Procedures MEDICAL DECISION MAKING AND PLAN OF CARE ---On initial encounter, discussed with pt plan to obtain labs including UA and administer IV fluids, morphine and Zofran. 1:25 AM: Rechecked pt, she is feeling better. Will obtain CT abdomen/pelvis. 2:57 AM: Updated patient on results, diagnosis, and plan for admission. Patient agrees with the plan. She also wants more pain medication. The opportunity for questions was given and questions were answered to the patient's satisfaction. All questions and concerns have been addressed. ED provider and ED nurse verbally discussed patient plan of care at this time. 3:08 AM: Discussed with Dr. Choi ([facility] Hospitalist) who will admit to Medical floor. Will consultgeneral surgery. 3:28 AM: Discussed the patient's medical history, history of present illness, and current findings with general surgery resident. MDM I have reviewed previous: notes I have reviewed current: labs and imaging I have reviewed nursing notes related to past medical history, social history, and review of systems and agree, unless otherwise noted. Consults: hospitalist and general/trauma surgery Medications Administered During the ED Stay from 11/01/2019 0001 to 11/01/2019 0340 Date/Time Order Dose Route Action 11/01/2019 0041 sodium chloride 0.9% bolus solution 1,000 mL 1,000 mL IV Bolus 11/01/2019 0307 sodium chloride 0.9% infusion IV New Bag 11/01/2019 0037 morphine 4 mg/mL injection 4 mg 4 mg IV Given 11/01/2019 0036 ondansetron (ZOFRAN) 4 mg/2 mL injection 4 mg 4 mg IV Given 11/01/2019 0204 iopamidoL (ISOVUE-300) 61 % injection 100 mL 100 mL IV Contrast Given 11/01/2019 0204 sodium chloride flush injection 10 mL 10 mL IV Given 11/01/2019 0327 piperacillin-tazobactam (ZOSYN) 3.375 gram in dextrose (iso- osmotic) 50 mL IVPB 3.375 Gram IV New Bag 11/01/2019 0307 morphine 4 mg/mL injection 4 mg 4 mg IV Given . New Prescriptions for this Encounter LAST VS BP: (!) 144/95 (11/01/19224), Heart Rate: 78 bpm (11/01/19224), Resp: 18 (11/01/19224), Pulse: 78 (11/01/19224), Temp: 97.8 ??F (36.6 ??C) (11/01/192), Temp src: Oral (11/01/192), SpO2: 100 % (11/01/19224) CLINICAL IMPRESSION Final diagnoses: [K81.9] Acalculous cholecystitis (Primary) [R10.11] Right upper quadrant abdominal pain DISPOSITION, EDUCATION AND MEDICATION RECONCILIATION Medications reconciled. See after visit summary for patient education on discharged patients. ED Disposition ED Disposition Condition User Date/Time Comment Admit Stable Demario Koo DO ThuNovember 01, 2019 3:11 AM ATTESTATION STATEMENTS This note has been prepared by Diaz Martínez acting as a scribe for Dr. Ezequiel Koo on 11/01/2019 at 3:37 AM. The scribe's documentation has been prepared under my direction and personally reviewed by me, Demario Koo DO, in its entirety on 11/01/19 at 3:40 AM. I confirm that the note above accurately reflects all work, treatment, procedures, and medical decision making performed by me. Diagnoses Diagnosis Comment Added By Time Added Acalculous cholecystitis [K81.9] Demario Koo DO 11/01/2019 3:11 AM Right upper quadrant abdominal pain [R10.11] Demario Koo DO 11/01/2019 3:11 AM documented in this encounter Miscellaneous Notes * Query - Allan Wheeler MD - 11/11/2019 11:44 AM CDT Please respond within 48 hours. Thank you! The authenticated query note is part of the Legal Health Record Patient Name: Lis Phelan Admission Date: 11/01/2019 [facility] #: [id number] Dear Doctor, Please continue to document the appropriate diagnosis for the clinical information above, in your Progress Notes, including through the Discharge Summary. Please keep the Problem List updated for continuity of care. (.hprobl or .probhospall) The diagnosis of liver laceration is documented in 11/03/2019 Operative Report. Clinical indicators and/or treatment for this patient include: COMPLICATIONS Included anticipatory enterotomy with repair and minor liver laceration with control of hemorrhage with cautery and Tisseel. The enterotomy is ???anticipatory?? , but need clarification about the liver laceration. ?There was a small bile leak noted from the anterior surface of the liver that was controlled with a viable Tisseel-like substitute, VersaSeal, and seemed to control this.?? Note: To answer the following question(s), please click EDIT button on the activity bar then click F2 in front of the highlighted area(s). Question: Clarify if there is a relationship between Minor Liver Laceration and the procedure: ??? Complication of the procedure (not routinely expected or is not due to the difficulty or natureof the procedure) ??? Inherent to the procedure (the event was essentially unavoidable or routinely expected due to the nature or difficulty of the procedure or patient's anatomy or condition) ??? Other (Specify) ??? Unable to determine Answer:Inherent to the procedure (the event was essentially unavoidable or routinely expected due to the nature or difficulty of the procedure or patient's anatomy or condition) In responding to this query, please exercise your independent professional judgment. Please be advised that coding regulations for inpatient admissions allow the physician to document presumptive/probable diagnoses. The fact that a question is asked does not imply that any particular answer is desired or expected. Thank you, This query was initiated by Marnie Hennessy. For questions on this coding query please contact me at [email or web address] * Query - Minal Arnold MD - 11/09/2019 2:32 PM CDT Please respond within 48 hours. Thank you! The authenticated query note is part of the Legal Health Record Patient Name: Lis Phelan Admission Date: 11/01/2019 [facility] #: [id number] Dear Doctor, Clinical indicators and/or treatment for this patient include: Pathology Report 11/03/2019: FINAL DIAGNOSIS Gallbladder, cholecystectomy: Cholelithiasis. Mild chronic cholecystitis with cholesterolosis. Small bowel, resection: Transmural defect, consistent with enterotomy. Serosal adhesions. Mucosal margins viable. Gross Description Received are two containers labeled Lis Phelan . Received in the first container additionallylabeled gallbladder is a 9.0 x 2.3 x 1.6 cm partially collapsed gallbladder. The serosa is red with diffuse thin adhesions. The cystic duct is marked as a suture and measures 0.2 cm in diameter. Lumen is filled with thickened, semitranslucent green-brown bile and a 1.3 cm round, granular yellow-green stone. The stone is present in the neck of the gallbladder and may obstruct the cystic duct. Mucosa is red and velvety with yellow speckling. Average wall thickness is 0.2 cm. No distinct lesionsare identified. The cystic duct (blue) and sections of gallbladder are submitted in cassette A1. Received in the second container additionally labeled small intestine is a 3.7 cm long by 6.0 cm in circumference segment of small bowel with minimal attached adipose tissue. The segment is received closed with both margins stapled. The serosa is red-arrieta with purple-red adhesions and a 2.5 x 0.7 cm full-thickness defect near the center of the bowel segment. The mucosa surrounding the defect is partially erythematous and. The defect comes to within 1.3 cm from the closest bowel margin. The remainder the mucosa is red-arrieta and demonstrates a normal folding pattern. No mass lesions are identified. The average wall thickness is 0.2 cm. [place] Hand sections are submitted as follows: B1-bowel margin closest to defect, en face; B2-opposite bowel margin, en face; G2-hear-cpxnbmkox defect (edge of defect inked blue). Microscopic Description: Sections from the gallbladder show benign mucosa with mild chronic inflammation and scattered collections of foamy macrophages expanding the superficial lamina propria, compatible with cholesterolosis. The inflammatory infiltrate consist predominantly of lymphocytes with scattered intermingled eosinophils. The inflammation extends from mucosal surface into the underlying gallbladder wall. There are scattered small diverticular structures (Rokitansky-Aschoff sinuses). Reactive epithelial changesare noted. No dysplasia or carcinoma is identified. ?? Sections from the small intestine show predominantly unremarkable small bowel mucosa with well preserved villous architecture. Scattered mucosal lymphoid aggregates are present. In the area of the noted transmural defect there is minimal acute inflammation. Fresh hemorrhage is noted within the submucosa, and the submucosal vessels appear congested. Somewhat prominent serosal adhesions are noted. The mucosa at the surgical margins appears viable. Note: To answer the following question(s), please click EDIT button on the activity bar then click F2 in front of the highlighted area(s). This query does not imply that you have personally reviewed the pathology slides, or that you are apathologist. Question: Do you concur with the pathologist???s diagnosis? I accept the report given by the pathologist and will use the information to guide further treatment as needed ??? No, I do NOT accept the pathology report ??? Other (Specify) ??? Unable to determine Answer:I accept the report given by the pathologist and will use the information to guide further treatment as needed This query does not imply that you have personally reviewed the pathology slides, or that you are apathologist. Please continue to document the appropriate diagnosis for the clinical information above, in your Progress Notes, including through the Discharge Summary. Please keep the Problem List updated for continuity of care. (.hprobl or .probhospall) In responding to this query, please exercise your independent professional judgment. Please be advised that coding regulations for inpatient admissions allow the physician to document presumptive/probable diagnoses. The fact that a question is asked does not imply that any particular answer is desired or expected. Thank you, For questions on this coding query please contact: Faye Davidson RN,BSN, Medical Document Imaging Manager [facility] Medical Document Imaging Manager Internal Pool [phone] [email or web address] * Care Plan - Mary Shah GN - 11/08/2019 10:43 AM CDT Lis Phelan will be discharged via wheelchair to home. Lis Phelan is accompanied by spouse and will be transported via private vehicle. Discharge instructions reviewed with pt- no further questions at this time * Care Plan - Nuvia Bone RN - 11/08/2019 6:16 AM CDT Assumed care @ 2300. Slept well. Right upper(to mid) abdomen incision well approximated, salome intact, LENA drain in place/compressed, binder in use. Requested pain medicine as anticipatory for LENA removal. Ambulating the hallways this morning with steady gait. * Care Plan - Ashley Willard RN - 11/07/2019 7:46 PM CDT Patient is AxOx4 this date. Patients incision is CDI and well approximated without redness or drainage. LENA drain was stripped x 2 this shift with small amount of serosanguinous drainage. Patient was changed from NPO to clears to ADA diet and did well without nausea or increased pain. Patient walkedonce with RN ANGY this date around unit and multiple times in room independent. Patient void and hadmultiple BM's this date. Patients VSS. Day 1 - Current ([place] Pathway: Adult and Obstetrics) Patient, family, or healthcare designee is participating in individual care plan process Outcome: Met Day 1 - Current ([place] [facility]: Adult and Obstetrics) Patient, family, or healthcare designee understands side effects of medications Outcome: Met * Care Plan - Sanjuana Evans RN - 11/07/2019 6:14 AM CDT -Pt voiced only 2/10 pain level throughout shift. She did note that after laying in bed sleeping for awhile her abdomen was more sore with movement, but improved as she moved around. -Pt walked to [facility] this shift x1 -Pt reported decent BM after walk this shift, stated that discomfort in lower abdomen improved. -IVF infusing throughout shift -LENA drain emptied with 20ml in 24 hours -Pt appeared to rest/sleep between care -Pt is looking forward to advancement of diet. * Care Plan - Sachin Kaur GN - 11/06/2019 6:30 PM CDT Pt A&Ox4. Up in the room with SBA to the bathroom. Pt complained of very mild pain- SCOURING PADS SUPERVISOR pump discontinued. NGT clamped off this AM per trauma surgery- pt reported no nausea all day. OK to remove NGT per Dr Marie. CHG shower complete. Incision open to air- salome intact with no drainage. Pt resting between care. \GUILLERMO Guo, 11/06/2019 6:33 PM * Care Plan - Kellen Rayo RN - 11/06/2019 11:06 AM CDT Problem: Discharge Planning Goal: Identify discharge needs upon admission and through discharge Description Clinical documentation reviewed. Possible D/C Mon/Tu pending O2 wean and pain control management per nursing. Outcome: Progressing Kellen Rayo RN, MSN, CRRN [place] [phone] * Care Plan - Sanjuana Evans RN - 11/06/2019 6:46 AM CDT -Pt pain improving, most bothersome when going from sitting to standing and standing to sitting. -Pt up to BSC and bathroom this shift -NG output @ 600ml this shift -LENA drain 10ml this shift -Pt walked twice this shift, 8 min and then 30 min. -No BM this shift -Pt appeared to rest/sleep between care * Care Plan - Clemencia Dodson GN - 11/05/2019 5:33 PM CDT Pt remains NPO, accuchecks q 4 hours. Ordonez was d/c'd in AM. Pt had moderate amount of urine x2 since removal. Pt up in room SBA. Ambulated multiple times, when up, NG tube is clamped. NG tube flushed w 5 mL q 4 hours. Pt uses incentive spirometer independently. LENA drain checked q 4, some increased output w ambulation noted. Pt remains on Morphine SCOURING PADS SUPERVISOR pump. Additionally, ice packs were applied to abd for c/o of pain. Pt continues to rate pain at a 3-4 out of 10. Telemetry monitoring continued. IVF LR @75mL/hr maintained. * Therapy Evaluation - Debbi Uriostegui, Occupational Therapist - 11/05/2019 8:19 AM CDT Occupational Therapy order received, chart reviewed, and evaluation completed. Please see full evaluation below for details. Daily OT notes will be located in Care Plan notes. Thank You. OT INITIAL EVALUATION Diagnosis: Right upper quadrant abdominal pain, acute calculous cholecystitis s/p open cholecystectomy with small bowel resection and repair on 11/03/2019. History of gastrocschisis Ordered by: Dr. Ashley Helms Activity Order: Ambulate with assist Weight Bearing Status: No restrictions Precautions: Fall; Abdominal for comfort PMH: Past Medical History: Diagnosis Date ??? Arthritis ??? Asthma ??? Biliary dyskinesia ??? Depression ??? Diabetes mellitus ??? Difficult intravenous access VERY hard IV stick use requests ultrasound ??? Eosinophilic esophagitis ??? GERD (gastroesophageal reflux disease) ??? Headache ??? History of shingles ??? Hyperlipidemia S: Patient agreeable to therapy. Patient reports 3/10 pain at rest and 5/10 with activity. Right upper quadrant of abdomen Pain intervention: Unneccessary movement avoided, Repositioned for comfort, Premedicated for activity Response to pain intervention: Appeared content Living Situation/Functional Level CERTIFIED NEURODIAGNOSTIC TECHNOLOGIST: Pt lives with spouse and four children in home with three steps to enter home without available handrail. Pt has bedroom on basement level of home. Pt's bathroom is on main floor of house. Pt is considering sleeping on couch on main level of home once initially d/c. Pt has a tub/shower combination where she stands to bathe. Pt was independent with all self-care prior to admission. Home Equipment: None O: Appearance: 34 y.o. female supine in bed with HOB elevated, NG tube connected to wall Vision: Glasses for occasional use Cognition/Perception: Ox4 UE ROM: WFL as observed via functional activities Muscle Tone: WFL UE Strength: WFL as observed via functional activities Coordination: WFL Hand Dominant: RUE Sensation: No tingling or numbness noted by pt Skin Integrity: LENA drain right abdomen, NG tube, IV, abdominal binder covering what RN reports to be a right side abdominal incision. FUNCTIONAL ACTIVITIES ASSESSMENT: LE Dressing: Pt able to doff BLE and don BLE socks with supervision for verbal cues and increased time. Functional Mobility: Pt transferred from supine to sitting EOB using the HOB elevation feature and bed rail with supervision and increased time. Pt transferred from sitting to standing with SBA for safety with increased time. Pt turned to sit in bedside chair with close SBA with increased time. Positioning after tx: Seated in chair with chair alarm donned, items in reach Other: Pt's RN managed NG tube during evaluation. Patient/Family Education: OT, POC, compensatory techniques for LE dressing and transferring Equipment needed at DC: To be determined A: Disabilities: Decreased independence in ADL including but not limited to functional mobility, LE dressing Assessment: Pt would benefit from skilled occupational therapy to increased independence in ADL. EVALUATION COMPLEXITY: Low Complexity -These findings are based on patient's self reporting, therapist's objective findings and professional determinations. 2 unit evaluation with 1 unit of treatment for education. Recommend: Home with home health, Home with supervision from spouse as needed pending pt continues to progress as expected from OTR/L's clinical reasoning. Recommendations were made on today's assessment. Additional recommendations will be based on patient's progress in therapy. P: OT to see patient: once daily at bedside 2-5x/wk Treatment: OT to see patient for: ADL Training, Functional Mobility Training, Patient Education Will continue therapy unless patient has a change in status or patient is discharged from the facility. --Patient involved in goal setting: yes Patient goals will be found in the Care Plan section of the medical chart. Debbi Uriostegui MS, OTR/L Zone #: [id number] On weekends--please call [phone] * Care Plan - Sanjuana Evans RN - 11/05/2019 5:40 AM CDT -Pt having right sided abdominal pain this shift. SCOURING PADS SUPERVISOR pump with no issues. -LENA drain checked q4, only drained x1 this shift -NG tube in place with no issues, set to intermittent suction. Flushed q4 -IVF infusing throughout shift -Ordonez with no complaints, ordonez care done and charted. -Pt up to [facility], thought she needed to have a BM, unsuccessful. -Pt NPO this shift -Tele NSR -Pt did preform IS during shift, without prompting. -Pt appeared to rest/sleep between care -Pt advised she needs to get up and sit in chair today. * Care Plan - Clemencia Dodson GN - 11/04/2019 3:38 PM CDT Pathway Day 3 - Current (INTERDIS PW: ABDOMINAL PAIN-ADMIT TO MED SURG) Activity/Rehab: patient will be able to perform ADLs with minimal assistance with increased mobility AEB ambulating in halls at least 2 times per shift. 11/04/2019 1540 by Clemencia Dodson GN Outcome: Not Met Variance PATIENT'S PAIN AT UNDESIRABLE LEVEL Comment: Pt states she is too in pain to get up from bed today. 11/04/2019 1537 by Clemencia Dodson GN Outcome: Not Met Pathway Day 3 - Current (INTERDIS PW: HYPERGLYCEMIA, ADULT) Nutrition Management: Patient maintaining appropriate carbohydrate selections with each meal. Outcome: Not Met Variance PATIENT NPO Comment: Blood sugars checked q4 hours. Pt currently NPO. Pt c/o of sore throat. End of shift note: A&Ox4. Pt c/o of pain was treated w SCOURING PADS SUPERVISOR morphine and ice packs. Sore throat treated w Cepacol lozenge per AUG. POC Blood glucose q 4 hours. Ordonez patent and draining to dependent bag. NG tube flushed w 5mL sterile water q 4 hours. LENA drain emptied q 4 hours, output is lessening. Attempted to wean 3L O2 NC. Unsuccessful, pt c/o of discomfort and difficulty breathing at 2L although O2 saturation = 94%. IVF LR @75 cont. Incentive spirometry encouraged. Pt able to do so independently. Pt c/o of pain w inspiration and was able to reach 500 on meter. * Care Plan - Venice Jerome RN - 11/04/2019 7:28 AM CDT Pt lethargic and drowsy up until 2300. At that time she woke up with severe pain, screaming and crying. Resident notified, at bedside. Notified surgery resident who ordered morphine SCOURING PADS SUPERVISOR pump. Pain appears to be better controlled and pt verbalized relief. NG with about 75ml thin brown output, flushed q4. LENA drain with 130ml output. Resting quietly between care. Ref. Range 11/03/2019 20:06 11/04/2019 00:02 11/04/2019 00:03 11/04/2019 04:19 POC GLUCOSE Latest Ref Range: 74 - 99 mg/dL 118 (H) 123 (H) 109 (H) * Care Plan - More Santana RN - 11/03/2019 5:17 PM CDT Pt returned from OR around 1600; NG tube to low intermittent suction. Complained of some pain when awake but very sleepy/ in and out at first so pain meds held. * Care Plan - Treva Strickland RN - 11/03/2019 6:51 AM CDT Pt states she has not had a bowel movement since finishing mag citrate. notified, miralax ordered. A&Ox4, VSS on room air. No complaints of pain or nausea this shift. IV antibiotics continued without issues. Up independently throughout the room. Pt showered this AM for procedure this morning. No new issues overnight, pt sleeping between care. * Care Plan - Minal Bradshaw RN - 11/03/2019 6:29 AM CDT Knowledge deficit related to procedure/environment Interventions: Assess learning needs and willingness to learn; give clear, concise explanations of the environment and sequence of events surrounding the periop experience; address patient/family questions and concerns; provide teaching as indicated, provide teaching related to postoperative pain assessment utilizing pain scales Expected Outcome: Patient verbalizes or demonstrates awareness/understanding of surgery and perioperative experience Outcome Met: verbalized understanding of pre procedure process * Care Plan - More Santana RN - 11/02/2019 6:00 PM CDT Pt stable during shift. NPO this morning for MRCP. Tolerated fate control diet this afternoon. Complained of some pain; medicated per AUG. Per surgeon's request; pt given Mag Citrate to clear bowels.Pt had some nausea with vomiting; medicated per AUG. * Care Plan - Graciela Sánchez RN - 11/02/2019 6:34 AM CDT Pt not c/o any pain or discomfort. VS and BS stable, and pt ambulated without difficulty. Pt NPO atmidnight in preparation for ERCP. Pt rested quietly and slept between care. * Care Plan - Zahra Gregory RN - 11/01/2019 6:34 PM CDT Patient updated on plan of care today. Vital signs stable. Blood sugars stable. Tolerated IV antibiotics well. Patient had frequent complaints of nausea, relief with zofran per AUG. Also complaints of abdominal pain, relief with IV medication per AUG. Does not tolerate clear liquid diet well, due to nausea and pain. Adequate urine output. Patient is up ad ryan without complications. Plan for MRCP tomorrow. Pathway Day 1 - Current (INTERDIS PW: ABDOMINAL PAIN-ADMIT TO MED SURG) Nutrition: Patient verbalizes understanding of dietary restriction and modification. Patient verbalizes decreased nausea, vomiting, and diarrhea. Outcome: Not Met Problem: Pain, Potential/Actual Goal: Verbalizes/displays acceptable comfort level or baseline comfort level Description Outcome: Variance Problem: Gastrointestinal Goal: Achieve optimal gastrointestinal function by discharge or maintain baseline function Outcome: Variance * Care Plan - Alina Rubio LCSW - 11/01/2019 10:52 AM CDT Clinical documentation reviewed. Comprehensive Discharge Planning Risk Assessment was completed. Readmission Risk (patient becomes high risk with a score of 8 or greater) 0 Total Score Total Score of 9 or below does not identify immediate needs for discharge. Age Score: 0 Disability Score: 0 Prior Living Status Score: {0 Mobility Limitation Score: 0 TOTAL SCORE: [address] consult if needs for discharge are identified. Care Management will continue to follow for discharge planning. YAZ Salcedo, LEDGER POSTER X [phone] Day 1 - Current ([place] [facility]way: Adult and Obstetrics) Patient, family, or healthcare designee is participating in individual care plan process Outcome: Met Problem: Discharge Planning Goal: Identify discharge needs upon admission and through discharge Description Outcome: Progressing * Care Plan - Graciela Sánchez RN - 11/01/2019 7:39 AM CDT Pt arrived to floor and oriented to room 63. Pt c/o RUQ pain and nausea relieved with prn meds per the MAR. VSS and pt ambulated without difficulty. Pt NPO in preparation for procedure. Undress and Assess performed by the following two coworkers: Graciela MATAMOROS & Sylive SCOURING PADS SUPERVISOR Admission or upon transfer to:[facility] ~~~~~~~~~~~~~~~~~~~~~~~~~~~~ Is the patient a paraplegic/quadriplegic? N Does the patient have new purple/alona/dark red over bony prominences? N Does the patient have an ostomy? N Is the length of stay >2 weeks? N ~If ANY answer 'yes'- please consult Wound Care~ Patient does not have skin breakdown. Per pt report. Location/ Description of breakdown: Wound care consult was not initiated. Is there skin breakdown under any Field Pipe Lines Supervisor (splint, ETT hearn, c-collar)? If yes, please describe: Are there currently any skin protective dressings in place? If yes, please describe skin under dressing: Protective Dressings Applied to Sacrum and Heels (Mepilex) as per Pathway? none Patient arrived to this room with the following belongings/valuables:(ie:dentures, hearing aids, glasses): None Patient arrived to this room with the following medical equipment/devices (ie: insulin pump, home CPAP, walker): None All Jewelry removed from patient N/A Disposition of belongings/valuables: Clothes, shoes, cell phone at bedside with patient. * Treatment Plan - Francis Matos, RT - 11/01/2019 1:52 AM CDT ?ST IMS CT MRI Medication and Flush Protocol [facility] Approved by: [facility] - Medical Executive Committee Approval Date: 01/06/2019 I ORDERS ARE ENTERED ???PER PROTOCOL?? Enter the protocol in the patient's electronic health record using smartphrase: .imagingmedflushprotocol Communication Orders: o For ordered imaging procedures requiring intravenous access: ??? Initiate a peripheral IV, if not already in place, and discontinue IV prior to discharge (if outpatient). ??? Enter order if needed: Insert Peripheral IV Medication Orders: o Local Anesthetic for use to initiate IV ADULT ??? Lidocaine 4% (L.M.X.4) applied topically ONE TIME prior to IV catheter insertion PRN (L.M.X.4 %should be applied 15 minutes prior to procedure) PEDIATRIC ??? Lidocaine 4% (L.M.X.4) applied topically ONE TIME prior to IV catheter insertion PRN (apply 15 minutes prior to procedure) ??? Sucrose 24% (Tootsweet; Sweet-Ease) oral solution 0.2 mL oral (apply to tongue on pacifier or clean, gloved finger), ONE TIME 2 minutes prior to painful procedure. May repeat dose x1 PRN to complete procedure. o Sodium chloride 0.9% (normal saline) flush 10 mLs PRN for saline lock or medication administration. o For respiratory distress, initiate oxygen and/or increase O2 to maintain saturation greater than 90% o For all invasive procedures: obtain Lidocaine 1% for intra-procedure administration. If Lidocaine1% unavailable, may substitute Lidocaine 2%. PROCEDURE SPECIFIC MEDICATIONS ??? Cystogram (CT Pelvis): Iopamidol (Isovue 300) 61%, 50mL, diluted with 250mL of sterile NS. Inject Isovue into 250mL bag ofNS. Clamp ordonez catheter prior to instilling solution via catheter. o Instill up to 300mL of Isovue and NS solution into bladder via catheter, one time. CT ORAL CONTRAST PROTOCOLS FOR ADULTS ??? Use Iohexol (Omnipaque) 240 mg/mL for CT scan unless patient has a documented allergy to contrast dye. ??? If allergy present, use Barium Sulfate (EZ Paque) for procedure. ??? If at any time the Wet Milling Wheel Operator has a question about which option to administer, seek clarification from a Radiologist. o Iohexol (Omnipaque) 240 mg/mL: 50ml added to 960mL of clear liquid of patient's choice. Preferredroute is oral. May use nasoenteric tube if needed. ??? Administer 900mL of the diluted Omnipaque 240, orally, one time only. o Barium Sulfate (EZ Paque /Vanilla Silq) 96% oral suspension: Preferred route is oral. May use nasoenteric tube if needed. ??? Administer 900mL of barium sulfate, orally, one time only. CT ORAL CONTRAST PROTOCOLS FOR PEDIATRICS Pediatrics = up to age 18 o Pediatric Radiologist will approve of one of the following products selected for procedure. ??? Barium Sulfate (EZ Paque) 96% oral suspension: preferred route is oral. May use nasoenteric tube if needed. to 3 months Administer up to 90mL of Barium Sulfate, orally, one time only 4 months to 1 year old Administer up to 240mL of Barium sulfate, Orally, One Time Only 1 year old to 5 years old Administer up to 360mL of Barium sulfate, Orally, One Time Only 5 years old to 10 years old Administer up to 480mL of Barium sulfate, Orally, One Time Only Over 10 years old Administer up to 600mL of Barium sulfate, Orally, One Time Only ??? Iohexol (Omnipaque) 240 mg/mL oral solution ; Dilute 25mL of iohexol with 480mL of clear liquid of patient's choice. Administer the diluted solution per age as follows: Preferred route is orally. May use nasoenteric tube if needed. ; Send any remaining diluted Iohexol solution with the pateint's nurse to CT Administer 45mL of diluted Iohexol oral solution, orally every 30 minutes x 2 doses. 1 month to 1 year old Administer 120mL of diluted Iohexol oral solution, orally every 30 min x 2 doses. 1 year old to 5 years old Administer 180mL of Iohexol orally every 30 min x 2 doses. 5 years old to 10 years old Administer 240mL of Iohexol orally every 30 min x 2 doses. Over 10 years old Administer 300mL of Iohexol orally every 30 min x [address] RECTAL CONTRAST PROTOCOLS ADULTS: o Iohexol (Omnipaque) 240 mg/mL: Dilute 50mL of Omnipaque with 900mL of warm water in an enema bag.Administer the diluted solution rectally via gravity per patient's tolerance, up to 950mLs, one time only. CT IV CONTRAST PROTOCOLS for ADULT ADULTS: (If patient is less than 55kg and confirm dose with radiologist) o Iopadmidol (Isovue-300): Administer 2.2mL/kg of Iopamidol 61%, intravenously, one time only. o See table below for maximum dose, unless otherwise authorized by radiologist.If exam has been completed before the entire dose has been administered, stop the injection. o If exam not included in table below, contact radiologist for orders. Procedure Maximum Dose CT Head with Contrast Up to [address] Chest with Contrast Up to [address] Maxilofacial with Contrast Up to [address] Soft Tissue Neck with Contrast CT Chest Abdomen Pelvis with Contrast CT Chest Abdomen with Contrast CT Abdomen Pelvis with Contrast CT Pelvis with Contrast CT Angiogram Examinations (all) CT Soft Tissue Neck and Chest Abomen Pelvis with Contrast Up to [address] Soft Tissue Neck and Chest with Contrast CT Urogram with Contrast CT IV CONTRAST PROTOCOLS for PEDIATRICS PEDIATRICS: Use weight-based dosing if patient is less than 55kg and confirm dose with radiologist. to 15 years old Administer 2.2mL/kg (to MAX of 80 mL) of Iopamidol (Isovue-300) 61%, intravenously, one time only 15 years old and older Administer 2.2mL/kg (to MAX of 150mL) of Iopamidol (Isovue-300) 61%, intravenously, one time only MRI IV CONTRAST PROTOCOLS ADULTS: o Multihance and Prohance can be used for most MRI scans o For Liver studies, contact Radiologist to determine use of one of the following: o Gadobenate Dimeglumine (Multihance) (0.1mmol/0.2mL), Administer 0.1mmol/kg = 0.2mL/kg up to MAX of 30mL, intravenously, one time only o Gadoteridol (Prohance) (0.1mmol/0.2mL), Administer 0.1mmol/kg = 0.2mL/kg up to MAX of 30mL, intravenously, one time only o Gadoxetate (Eovist) 2.5 mmol/10mL, Administer 0.025mmol/kg = 0.1mL/kg MAX of 15mL, intravenously,one time only PEDIATRICS: o Radiologist to determine need and type of contrast Term neonates up to 2 years: Gadobutrol (Gadavist) 1mmol/mL injection, Administer 0.1mmol/kg = 0.1mL/kg up to MAX of 14mmol = 14mL, intravenously, one time only 2 years and older Gadobenate Dimeglumine (Multihance) (0.1mmol/0.2mL), Administer 0.1mmol/kg = 0.2mL/kg up to MAX of 20mL intravenously, one time only OR Gadoteridol (Prohance) (0.1mmol/0.2mL), Administer 0.1mmol/kg = 0.2mL/kg up to MAX of 20mL, intravenously, one time only documented in this encounter Plan of Treatment Upcoming Encounters Date Type Department Care Team (Late st Contact Info) Description 06/20/2024 9:30 AM LENS GRINDER Office Visit [facility] Orthopedic Surgery at the [facility] [address] [facility] [address] [facility] [address] [place] [id number] [place] [id number] [place] [address] 10/27/2024 2:45 PM CDT Office Visit [facility] Gastroenterology [address] [place] [address] Bebo Benites MD [address] [facility] [address] [place] [address] documented as of this encounter Procedures Procedure Name Priority Date/Time Associated Diagnosis Comments POC GLUCOSE Routine 11/08/2019 7:51 AM CDT POC GLUCOSE Routine 11/07/2019 10:45 PM CDT POC GLUCOSE Routine 11/07/2019 6:15 PM CDT POC GLUCOSE Routine 11/07/2019 1:54 PM CDT CBC WITH DIFFERENTIAL Routine 11/07/2019 8:17 AM CDT HEPATIC FUNCTION PANEL Routine 0 8:17 AM CDT BASIC METABOLIC PANEL Routine 11/07/2019 8:17 AM CDT POC GLUCOSE Routine 11/07/2019 7:28 AM CDT POC GLUCOSE Routine 11/07/2019 5:37 AM CDT POC GLUCOSE Routine 11/06/2019 11:51 PM CDT POC GLUCOSE Routine 11/06/2019 6:28 PM CDT POC GLUCOSE Routine 11/06/2019 12:05 PM CDT POC GLUCOSE Routine 11/06/2019 8:11 AM CDT CBC WITH DIFFERENTIAL Stat 11/06/2019 6:37 AM CDT POC GLUCOSE Routine 11/06/2019 4:01 AM CDT POC GLUCOSE Routine 11/05/2019 11:54 PM CDT POC GLUCOSE Routine 11/05/2019 9:14 PM CDT POC GLUCOSE Routine 11/05/2019 5:09 PM CDT POC GLUCOSE Routine 11/05/2019 12:51 PM CDT POC GLUCOSE Routine 11/05/2019 7:45 AM CDT CBC WITH DIFFERENTIAL Routine 11/05/2019 7:05 AM CDT POC GLUCOSE Routine 11/05/2019 4:03 AM CDT POC GLUCOSE Routine 11/05/2019 12:03 AM CDT POC GLUCOSE Routine 11/04/2019 8:00 PM CDT POC GLUCOSE Routine 11/04/2019 4:10 PM CDT POC GLUCOSE Routine 11/04/2019 12:18 PM CDT POC GLUCOSE Routine 11/04/2019 8:57 AM CDT CBC WITH DIFFERENTIAL Routine 11/04/2019 7:14 AM CDT BASIC METABOLIC PANEL Routine 11/04/2019 7:14 AM CDT POC GLUCOSE Routine 11/04/2019 4:19 AM CDT HEPATIC FUNCTION PANEL Routine 0 12:03 AM CDT POC GLUCOSE Routine 11/04/2019 12:02 AM CDT POC GLUCOSE Routine 11/03/2019 8:06 PM CDT POC GLUCOSE Routine 11/03/2019 4:08 PM CDT POC GLUCOSE Routine 11/03/2019 11:45 AM CDT PATHOLOGY Pathology 11/03/2019 9:28 AM CDT CHOLECYSTECTOMY 11/03/2019 7:00 AM CDT Case Notes INPATIENT POC GLUCOSE Routine 11/03/2019 4:47 AM CDT POC GLUCOSE Routine 11/03/2019 12:21 AM CDT POC GLUCOSE Routine 11/02/2019 7:23 PM CDT POC GLUCOSE Routine 11/02/2019 1:46 PM CDT 2019 NOVEL CORONAVIRUS (COVID-19) PCR DETECTION Routine 11/02/2019 12:39 PM CDT MRSA PCR RAPID SCREEN Routine 11/02/2019 12:39 PM CDT MRI MRCP W AND WO CONTRAST Routine 11/02/2019 11:57 AM CDT POC GLUCOSE Routine 11/02/2019 8:21 AM CDT COMPREHENSIVE METABOLIC PANEL Timed Study 11/02/2019 4:35 AM CDT POC GLUCOSE Routine 11/02/2019 4:21 AM CDT POC GLUCOSE Routine 11/02/2019 12:11 AM CDT POC GLUCOSE Routine 11/01/2019 8:22 PM CDT POC GLUCOSE Routine 11/01/2019 5:56 PM CDT POC GLUCOSE Routine 11/01/2019 2:22 PM CDT POC GLUCOSE Routine 11/01/2019 10:11 AM CDT US ABDOMEN LIMITED Stat 11/01/2019 8: 16 AM CDT CBC WITH DIFFERENTIAL Timed Study 11/01/2019 6:[address] ABDOMEN PELVIS W CONTRAST Stat 11/01/2019 2:04 AM CDT POC , URINE Stat 11/01/2019 1:45 AM CDT URINALYSIS W/REFLEX MICROSCOPIC Stat 11/01/2019 1:44 AM CDT EXTRA TUBE (GREEN) Stat 11/01/2019 12:53 AM CDT EXTRA TUBE Stat 11/01/2019 12:53 AM CDT CBC WITH DIFFERENTIAL Stat 11/01/2019 12:53 AM CDT LIPASE Stat 11/01/2019 12:30 AM CDT COMPREHENSIVE METABOLIC PANEL Stat 11/01/2019 12:30 AM CDT documented in this encounter Results * (ABNORMAL) POC GLUCOSE (11/08/2019 7:51 AM CDT) [facility] Signature GLUCOSE POC 123(H) 74 - 99 mg/dL 11/08/2019 7:51 AM CDT [facility] [employer] [facility] COMMENT, GLU POC Notified RN/MD 11/08/2019 7:51 AM CDT [facility] [employer] [facility] FACILITIES SPECIALIST NAME POC DEMETRIUS WHITEL 11/08/2019 7:51 AM CDT [facility] LABORATORY SERVICES [facility] Blood, whole 11/08/2019 7:51 AM CDT 11/08/2019 8:10 AM CDT Minal Arnold MD POINT OF CARE TESTIN G Performing Organization Address [facility]/ZIP Co de Phone Number [facility] LABORATORY [facility] CLIA# [id number] [address] [place] [address] * (ABNORMAL) POC GLUCOSE (11/07/2019 10:45 PM CDT) GLUCOSE POC 117(H) 74 - 99 mg/dL 11/07/2019 10:45 PM CDT [facility] LABORATORY [facility] COMMENT, GLU POC Notified RN/MD 11/07/2019 10:45 PM CDT [facility] LABORATORY [facility] FACILITIES SPECIALIST NAME POC ELO BANERJEE 11/07/2019 10:45 PM CDT [facility] Blood, whole 11/07/2019 10:4 5 PM CDT 11/07/2019 11:04 PM CDT Ashley Helms MD POINT OF CARE TESTKIM Keen Performing Organization Address [facility] Co de Phone Number [facility] [employer] [facility] CLIA# [id number] [address] [place] [address] * POC GLUCOSE (11/07/2019 6:15 PM CDT) GLUCOSE POC 94 74 - 99 mg/dL 11/07/2019 6:15 PM CDT [facility] LABORATORY [facility] FACILITIES SPECIALIST NAME POC ASHLEY WILLARD 11/07/2019 6:15 PM CDT [facility] LABORATORY [facility] Blood, whole 11/07/2019 6:15 PM CDT 11/07/2019 6:22 PM CDT Ashley Helms MD POINT OF CARE TESTKIM Keen [facility] [employer] [facility] [id number] [address] [place] [address] * (ABNORMAL) POC GLUCOSE (11/07/2019 1:54 PM CDT) [facility] GLUCOSE POC 102(H) 74 - 99 mg/dL 11/07/2019 1:54 PM CDT [employer] LABORATORY SERVICES [facility] FACILITIES SPECIALIST NAME POC ASHLEY WILLARD 11/07/2019 1:54 PM CDT [employer] LABORATORY SERVICES [facility] Blood, whole 11/07/2019 1:54 PM CDT 11/07/2019 2:02 PM CDT Ashley Helms MD POINT OF CARE TESTIN G [facility] [employer] [facility] CLIA# [id number] [address] [place] [address] * (ABNORMAL) CBC WITH DIFFERENTIAL (11/07/2019 8:17 AM CDT) [facility] WBC 7.4 4.0 - 9.8 K/uL 11/07/2019 8:48 AM CDT [employer] LABORATORY SERVICES [facility] RBC 4.18 3.90 - 4.90 M/uL 11/07/2019 8:48 AM CDT [employer] LABORATORY SERVICES [facility] HEMOGLOBIN 12.8 11.8 - 14.8 g/dL 11/07/2019 8:48 AM CDT [employer] LABORATORY SERVICES - [facility] HEMATOCRIT 38.9 35.5 - 44.0 % 11/07/2019 8:48 AM CDT [employer] LABORATORY SERVICES - [facility] MCV 93.1 82.0 - 99.0 fL 11/07/2019 8:48 AM CDT [employer] LABORATORY SERVICES - [facility] MCH 30.6 27.2 - 32.6 pg 11/07/2019 8:48 AM CDT [employer] LABORATORY SERVICES - [facility] MCHC 32.9 31.5 - 35.5 g/dL 11/07/2019 8:48 AM CDT [employer] LABORATORY SERVICES - [facility] RDW 13.3 11.5 - 14.5 % 11/07/2019 8:48 AM [employer] LABORATORY SERVICES - [facility] RDW-STDEV 45.1 37.1 - 48.7 fL 11/07/2019 8:48 AM [employer] LABORATORY SERVICES - [facility] PLATELETS 269 140 - 350 K/uL 11/07/2019 8:48 AM [employer] LABORATORY SERVICES - [facility] MPV 9.5 9.3 - 12.4 fL 11/07/2019 8:48 AM [employer] SERVICES - [facility] NEUTROPHILS 70 % 11/07/2019 8:48 AM [employer] LABORATORY SERVICES - [facility] LYMPHOCYTES 19 % 11/07/2019 8:48 AM [employer] LABORATORY SERVICES - . [facility] MONOCYTES 5 % 11/07/2019 8:48 AM [employer] LABORATORY SERVICES - [facility] EOSINOPHILS 4 % 11/07/2019 8:48 AM [employer] LABORATORY SERVICES - [facility] BASOPHILS 1 % 11/07/2019 8:48 AM [employer] SERVICES - [facility] IMMATURE GRANULOCYTES 1 % 11/07/2019 8:48 AM [employer] LABORATORY SERVICES - [facility] Comment:IG (Immature Granulo cyte) count includes Metamyelocytes, Myelocytes, and Promyelocytes NEUTROPHIL ABSOLUTE 5.14 1.90 - 7.00 K/uL 11/07/2019 8:48 AM [employer] LABORATORY SERVICES - [facility] LYMPHOCYTE ABSOLUTE 1.41 0.70 - 4.50 K/uL 11/07/2019 8:48 AM [employer] LABORATORY SERVICES - [facility] MONOCYTE ABSOLUTE 0.40 0.10 - 1.30 K/uL 11/07/2019 8:48 AM [employer] LABORATORY SERVICES - . [facility] EOSINOPHIL ABSOLUTE 0.28 0.00 - 0.70 K/uL 11/07/2019 8:48 AM [employer] LABORATORY SERVICES - . [facility] BASOPHILS ABSOLUTE 0.04 0.00 - 0.20 K/uL 11/07/2019 8:48 AM [employer] LABORATORY SERVICES - [facility] IMMATURE GRANULOCYTES ABSOLUTE 0.08(H) 0.00 - 0.03 K/uL 11/07/2019 8:48 AM [employer] LABORATORY SERVICES - [facility] Blood Venipuncture / Unknown 11/07/2019 8:17 AM CDT 11/07/2019 8:36 AM CDT Ashley Helms MD HEMATOLOGY ORDERABLE S [facility] LABORATORY SERVICES [facility]# [id number] [address] [place] [address] * (ABNORMAL) BASIC METABOLIC PANEL (11/07/2019 8:17 AM CDT) SODIUM 138 136 - 145 mmol/L 11/07/2019 9:15 AM [employer] LABORATORY SERVICES - [facility] POTASSIUM 3.5 3.5 - 5.0 mmol/L 11/07/2019 9:15 AM [employer] [facility] - [facility] CHLORIDE 101 98 - 107 mmol/L 11/07/2019 9:15 AM [employer] [facility] CO2 22 22 - 29 mmol/L 11/07/2019 9:15 AM [facility] [employer] [facility] CALCIUM 9.1 8.6 - 10.2 mg/dL 11/07/2019 9:15 AM [facility] [employer] [facility] BUN 8 6 - 20 mg/dL 11/07/2019 9:15 AM [facility] [employer] [facility] CREATININE 0.41(L) 0.51 - 0.95 mg/dL 11/07/2019 9:15 AM [facility] [employer] [facility] GLUCOSE 134(H) 74 - 99 mg/dL 11/07/2019 9:15 AM [facility] [employer] [facility] GFR >60 >=60 mL/min/1.7 3 sq meter 11/07/2019 9:15 AM [employer] SERVICES [facility] Comment: eGFR has not been validated for [...] refer to the GFR result. GFR, >60 >=60 mL/min/1.7 3 sq meter 11/07/2019 9:15 AM CDT [facility] LABORATORY SERVICES - [facility] ANION GAP 15 8 - 16 mmol/L 11/07/2019 9:15 AM CDT [facility] LABORATORY SERVICES - [facility] Blood Venipuncture / Unknown 11/07/2019 8:17 AM CDT 11/07/2019 8:36 AM CDT Allan Wheeler MD CHEMISTRY ORDERABL ES [facility] LABORATORY SERVICES [facility] CLIA# [id number] [address] [address] * (ABNORMAL) HEPATIC FUNCTION PANEL (11/07/2019 8:17 AM CDT) TOTAL PROTEIN 7.2 6.7 - 8.6 g/dL 11/07/2019 9:15 AM CDT [facility] LABORATORY [facility] ALBUMIN 3.9 3.5 - 5.2 g/dL 11/07/2019 9:15 AM T [facility] LABORATORY [facility] BILIRUBIN TOTAL 0.8 0.3 - 1.2 mg/dL 11/07/2019 9:15 AM T [facility] LABORATORY [facility] BILIRUBIN DIRECT <0.2 <0.4 mg/dL 11/07/19 20 9:15 AM T [facility] LABORATORY SERVICES [facility] ALKALINE PHOSPHATASE 96 35 - 104 U/L 11/07/2019 9:15 AM CDT [facility] LABORATORY [facility] AST 44(H) <33 U/L 11/07/2019 9:15 AM CDT [facility] LABORATORY [facility] ALT 71(H) <34 U/L 11/07/2019 9:15 AM CDT [facility] LABORATORY SERVICES - [facility] Blood Venipuncture / Unknown 11/07/2019 8:17 AM CDT 11/07/2019 8:36 AM CDT Narrative [facility] LABORATORY SERVICES - [facility] - 11/07/2019 9:15 AM CDT Samples containing indocyanine green cause interferences on Total and/or Direct Bilirubin and must not be measured. Allan Wheeler MD CHEMISTRY ORDERABL ES Performing Organization Address [facility] Co de Phone Number [facility]# [id number] [address] [place] [address] * POC GLUCOSE (11/07/2019 7:28 AM CDT) GLUCOSE POC 94 74 - 99 mg/dL 11/07/2019 7:28 AM CDT [facility] LABORATORY [facility] FACILITIES SPECIALIST NAME POC ASHLEY WILLARD 11/07/2019 7:28 AM CDT [facility] LABORATORY [facility] Blood, whole 11/07/2019 7:28 AM CDT 11/07/2019 7:36 AM CDT Ashley Helms MD POINT OF CARE TESTKIM Ke[employer] Performing Organization Address [facility] de Phone Number [facility]# [id number] [address] [place] [address] * POC GLUCOSE (11/07/2019 5:37 AM CDT) GLUCOSE POC 82 74 - 99 mg/dL 11/07/2019 5:37 AM CDT [facility] LABORATORY [facility] FACILITIES SPECIALIST NAME POC ASHLEY RICE 11/07/2019 5:37 AM CDT [facility] LABORATORY [facility] Blood, whole 11/07/2019 5:37 AM CDT 11/07/2019 5:44 AM CDT Ashley Helms MD POINT OF CARE TESTKIM Keen Performing Organization Address [facility] Co de Phone Number [facility] [facility] [employer] [facility]# [id number] [address] [place] [address] * POC GLUCOSE (11/06/2019 11:51 PM CDT) GLUCOSE POC 88 74 - 99 mg/dL 11/06/2019 11:51 PM CDT [facility] LABORATORY SERVICES [facility] FACILITIES SPECIALIST NAME POC ASHLEY RICE 11/06/2019 11:51 PM CDT [facility] LABORATORY SERVICES [facility] Blood, whole 11/06/2019 11:5 1 PM CDT 11/07/2019 12:27 AM CDT Ashley Helms MD POINT OF CARE TESTIN G Performing Organization Address City/[facility]/ZIP Co de Phone Number [facility] LABORATORY [facility] CLIA# [id number] [address] [place] [address] * POC GLUCOSE (11/06/2019 6:28 PM CDT) GLUCOSE POC 89 74 - 99 mg/dL 11/06/2019 6:28 PM CDT [facility] LABORATORY SERVICES [facility] COMMENT, GLU POC Notified RN/ 11/06/2019 6:28 PM CDT [facility] FACILITIES SPECIALIST NAME POC COSTA TEJEDA 11/06/2019 6:28 PM CDT [facility] Blood, whole 11/06/2019 6:28 PM CDT 11/06/2019 6:38 PM CDT Ashley Helms MD POINT OF CARE TESTIN G Performing Organization Address [facility]/ZIP Co de Phone Number [facility] LABORATORY [facility] CLIA# [id number] [address] [place] [address] * POC GLUCOSE (11/06/2019 12:05 PM CDT) GLUCOSE POC 92 74 - 99 mg/dL 11/06/2019 12:05 PM CDT [facility] COMMENT, GLU POC Notified RN/ 11/06/2019 12:05 PM CDT [facility] FACILITIES SPECIALIST NAME POC COSTA TEJEDA 11/06/2019 12:05 PM CDT [facility] Blood, whole 11/06/2019 12:0 5 PM CDT 11/06/2019 12:13 PM CDT Ashley Helms MD POINT OF CARE TESTIN Leonila Performing Organization Address [facility]/ZIP Co de Phone Number [facility] [employer] [facility]# [id number] [address] [place] [address] * POC GLUCOSE (11/06/2019 8:11 AM CDT) GLUCOSE POC 90 74 - 99 mg/dL 11/06/2019 8:11 AM CDT [employer] LABORATORY SERVICES [facility] COMMENT, GLU POC Notified RN/MD 11/06/2019 8:11 AM CDT [employer] LABORATORY SERVICES [facility] FACILITIES SPECIALIST NAME POC COSTA TEJEDA 11/06/2019 8:11 AM CDT [employer] LABORATORY SERVICES - [facility] Blood, whole 11/06/2019 8:11 AM CDT 11/06/2019 8:22 AM CDT Ashley Helms MD POINT OF CARE TESTKIM [employer] [facility]# [id number] [address] [place] [address] * (ABNORMAL) CBC WITH DIFFERENTIAL (11/06/2019 6:37 AM CDT) WBC 9.4 4.0 - 9.8 K/uL 11/06/2019 7:09 AM CDT [employer] LABORATORY SERVICES [facility] RBC 3.91 3.90 - 4.90 M/uL 11/06/2019 7:09 AM CDT [employer] LABORATORY SERVICES [facility] HEMOGLOBIN 11.8 11.8 - 14.8 g/dL 11/06/2019 7:09 AM CDT [employer] LABORATORY SERVICES - [facility] HEMATOCRIT 36.3 35.5 - 44.0 % 11/06/2019 7:09 AM CDT [employer] LABORATORY SERVICES [facility] MCV 92.8 82.0 - 99.0 fL 11/06/2019 7:09 AM CDT [employer] LABORATORY SERVICES - [facility] MCH 30.2 27.2 - 32.6 pg 11/06/2019 7:09 AM [employer] LABORATORY SERVICES - [facility] MCHC 32.5 31.5 - 35.5 g/dL 11/06/2019 7:09 AM [employer] LABORATORY SERVICES - [facility] RDW 13.2 11.5 - 14.5 % 11/06/2019 7:09 AM [employer] LABORATORY SERVICES - [facility] RDW-STDEV 44.6 37.1 - 48.7 fL 11/06/2019 7:09 AM [employer] LABORATORY SERVICES - [facility] PLATELETS 254 140 - 350 K/uL 11/06/2019 7:09 AM [employer] LABORATORY SERVICES - [facility] MPV 9.2(L) 9.3 - 12.4 fL 11/06/2019 7:09 AM [employer] LABORATORY SERVICES - [facility] NEUTROPHILS 74 % 11/06/2019 7:09 AM [employer] LABORATORY SERVICES - [facility] LYMPHOCYTES 16 % 11/06/2019 7:09 AM [employer] LABORATORY SERVICES - [facility] MONOCYTES 8 % 11/06/2019 7:09 AM [employer] LABORATORY SERVICES - . [facility] EOSINOPHILS 2 % 11/06/2019 7:09 AM [employer] LABORATORY SERVICES - [facility] BASOPHILS 0 % 11/06/2019 7:09 AM [employer] LABORATORY SERVICES - [facility] IMMATURE GRANULOCYTES 1 % 11/06/2019 7:09 AM [employer] LABORATORY SERVICES - . [facility] Comment:IG (Immature Granulo cyte) count includes Metamyelocytes, Myelocytes, and Promyelocytes NEUTROPHIL ABSOLUTE 6.91 1.90 - 7.00 K/uL 11/06/2019 7:09 AM [employer] LABORATORY SERVICES - . [facility] LYMPHOCYTE ABSOLUTE 1.51 0.70 - 4.50 K/uL 11/06/2019 7:09 AM [employer] LABORATORY SERVICES - . [facility] MONOCYTE ABSOLUTE 0.70 0.10 - 1.30 K/uL 11/06/2019 7:09 AM [employer] LABORATORY SERVICES - . [facility] EOSINOPHIL ABSOLUTE 0.20 0.00 - 0.70 K/uL 11/06/2019 7:09 AM [employer] LABORATORY SERVICES - . [facility] BASOPHILS ABSOLUTE 0.01 0.00 - 0.20 K/uL 11/06/2019 7:09 AM CDT [facility] LABORATORY [facility] - [facility] IMMATURE GRANULOCYTES ABSOLUTE 0.06(H) 0.00 - 0.03 K/uL 11/06/2019 7:09 AM CDT [facility] LABORATORY [facility] Blood Venipuncture / Unknown 11/06/2019 6:37 AM CDT 11/06/2019 7:01 AM CDT Allan Wheeler MD HEMATOLOGY ORDERAB LES Performing Organization Address [facility]/ZIP Co de Phone Number [facility] CLIA# [id number] [address] [place] [address] * (ABNORMAL) POC GLUCOSE (11/06/2019 4:01 AM CDT) GLUCOSE POC 105(H) 74 - 99 mg/dL 11/06/2019 4:01 AM CDT [facility] FACILITIES SPECIALIST NAME POC ASHLEY RICE 11/06/2019 4:01 AM CDT [facility] Blood, whole 11/06/2019 4:01 AM CDT 11/06/2019 4:08 AM CDT Ashley Helms MD POINT OF CARE TESTIN G Performing Organization Address [facility] Co de Phone Number [facility] CLIA# [id number] [address] [place] [address] * POC GLUCOSE (11/05/2019 11:54 PM CDT) GLUCOSE POC 95 74 - 99 mg/dL 11/05/2019 11:54 PM CDT [facility] LABORATORY [facility] FACILITIES SPECIALIST NAME POC CATRINA RICESA 11/05/2019 11:54 PM CDT [facility] LABORATORY [facility] Blood, whole 11/05/2019 11:5 4 PM CDT 11/06/2019 12:39 AM CDT Ashley Helms MD POINT OF CARE VIVIANA Keen [id number] [address] [place] [address] * POC GLUCOSE (11/05/2019 9:14 PM CDT) GLUCOSE POC 80 74 - 99 mg/dL 11/05/2019 9:14 PM CDT [facility] LABORATORY SERVICES [facility] FACILITIES SPECIALIST NAME POC CAROLE LEVY 11/05/2019 9:14 PM CDT [facility] LABORATORY SERVICES [facility] Blood, whole 11/05/2019 9:14 PM CDT 11/05/2019 9:42 PM CDT Ashley Helms MD POINT OF CARE TESTKIM Leonila Performing Organization Address City/[facility]/ZIP Co de Phone Number [facility] LABORATORY [facility]# [id number] [address] [place] [address] * POC GLUCOSE (11/05/2019 5:09 PM CDT) GLUCOSE POC 89 74 - 99 mg/dL 11/05/2019 5:09 PM CDT [facility] LABORATORY SERVICES [facility] COMMENT, GLU POC Notified RN/MD 11/05/2019 5:09 PM CDT [facility] LABORATORY SERVICES [facility] FACILITIES SPECIALIST NAME POC GLENDA VILLANUEVA 11/05/2019 5:09 PM CDT [facility] LABORATORY SERVICES [facility] Blood, whole 11/05/2019 5:09 PM CDT 11/05/2019 5:33 PM CDT Ashley Helms MD POINT OF CARE TESTKIM Leonila [facility] LABORATORY [facility]# [id number] [address] [place] [address] * POC GLUCOSE (11/05/2019 12:51 PM CDT) GLUCOSE POC 91 74 - 99 mg/dL 11/05/2019 12:51 PM CDT [facility] LABORATORY SERVICES [facility] COMMENT, GLU POC Notified RN/ 11/05/2019 12:51 PM CDT [facility] LABORATORY SERVICES - [facility] FACILITIES SPECIALIST NAME COSTA AMANDA 11/05/2019 12:51 PM CDT [facility] LABORATORY SERVICES - [facility] Blood, whole 11/05/2019 12:5 1 PM CDT 11/05/2019 1:00 PM CDT Ashley Helms MD POINT OF CARE TESTIN G [facility] [employer] [facility] CLIA# [id number] [address] [place] [id number] * POC GLUCOSE (11/05/2019 7:45 AM CDT) GLUCOSE POC 95 74 - 99 mg/dL 11/05/2019 7:45 AM CDT [facility] LABORATORY SERVICES [facility] COMMENT, GLU POC Notified SATURN[place]/ 11/05/2019 7:45 AM CDT [facility] - [facility] FACILITIES SPECIALIST NAME COSTA AMANDA 11/05/2019 7:45 AM CDT [facility] SERVICES [facility] Blood, whole 11/05/2019 7:45 AM CDT 11/05/2019 8:21 AM CDT Ashley Helms MD POINT OF CARE TESTIN G [facility] [employer] [facility] CLIA# [id number] [address] [place] [address] * (ABNORMAL) CBC WITH DIFFERENTIAL (11/05/2019 7:05 AM CDT) WBC 10.9(H) 4.0 - 9.8 K/uL 11/05/2019 7:25 AM CDT [facility] LABORATORY SERVICES [facility] RBC 4.13 3.90 - 4.90 M/uL 11/05/2019 7:25 AM CDT [facility] - [facility] HEMOGLOBIN 12.7 11.8 - 14.8 g/dL 11/05/2019 7:25 AM CDT [employer] LABORATORY SERVICES - [facility] HEMATOCRIT 39.7 35.5 - 44.0 % 11/05/2019 7:25 AM [employer] LABORATORY SERVICES - . [facility] MCV 96.1 82.0 - 99.0 fL 11/05/2019 7:25 AM [employer] LABORATORY SERVICES - [facility] MCH 30.8 27.2 - 32.6 pg 11/05/2019 7:25 AM CDT [employer] LABORATORY SERVICES - [facility] MCHC 32.0 31.5 - 35.5 g/dL 11/05/2019 7:25 AM [employer] LABORATORY SERVICES - [facility] RDW 13.5 11.5 - 14.5 % 11/05/2019 7:25 AM [employer] LABORATORY SERVICES - [facility] RDW-STDEV 47.8 37.1 - 48.7 fL 11/05/2019 7:25 AM [employer] LABORATORY SERVICES - [facility] PLATELETS 239 140 - 350 K/uL 11/05/2019 7:25 AM [employer] LABORATORY SERVICES - [facility] MPV 9.3 9.3 - 12.4 fL 11/05/2019 7:25 AM [employer] LABORATORY SERVICES - [facility] NEUTROPHILS 70 % 11/05/2019 7:25 AM [employer] LABORATORY SERVICES - . [facility] LYMPHOCYTES 17 % 11/05/2019 7:25 AM [employer] LABORATORY SERVICES - . [facility] MONOCYTES 10 % 11/05/2019 7:25 AM [employer] LABORATORY SERVICES - . [facility] EOSINOPHILS 2 % 11/05/2019 7:25 AM [employer] LABORATORY SERVICES - . [facility] BASOPHILS 0 % 11/05/2019 7:25 AM [employer] LABORATORY SERVICES - . [facility] IMMATURE GRANULOCYTES 1 % 11/05/2019 7:25 AM [employer] LABORATORY SERVICES - . [facility] Comment:IG (Immature Granulo cyte) count includes Metamyelocytes, Myelocytes, and Promyelocytes NEUTROPHIL ABSOLUTE 7.65(H) 1.90 - 7.00 K/uL 11/05/2019 7:25 AM CDT [employer] LABORATORY SERVICES - . [facility] LYMPHOCYTE ABSOLUTE 1.80 0.70 - 4.50 K/uL 11/05/2019 7:25 AM CDT [facility] LABORATORY SERVICES - [facility] MONOCYTE ABSOLUTE 1.10 0.10 - 1.30 K/uL 11/05/2019 7:25 AM CDT [facility] LABORATORY SERVICES - [facility] EOSINOPHIL ABSOLUTE 0.22 0.00 - 0.70 K/uL 11/05/2019 7:25 AM CDT [facility] LABORATORY SERVICES - [facility] BASOPHILS ABSOLUTE 0.03 0.00 - 0.20 K/uL 11/05/2019 7:25 AM CDT [facility] LABORATORY SERVICES - [facility] IMMATURE GRANULOCYTES ABSOLUTE 0.09(H) 0.00 - 0.03 K/uL 11/05/2019 7:25 AM CDT [facility] LABORATORY SERVICES - [facility] Blood Venipuncture / Unknown 11/05/2019 7:05 AM CDT 11/05/2019 7:14 AM CDT Ashley Helms MD HEMATOLOGY ORDERABLE S [facility] [employer] [facility] CLIA# [id number] [address] [place] [address] * POC GLUCOSE (11/05/2019 4:03 AM CDT) GLUCOSE POC 98 74 - 99 mg/dL 11/05/2019 4:03 AM CDT [facility] LABORATORY [facility] FACILITIES SPECIALIST NAME POC CAROLE LEVY 11/05/2019 4:03 AM CDT [facility] LABORATORY SERVICES [facility] Blood, whole 11/05/2019 4:03 AM CDT 11/05/2019 6:10 AM CDT Ashley Helms MD POINT OF CARE TESTIN G [facility] CLIA# [id number] [address] [place], [address] [address] * (ABNORMAL) POC GLUCOSE (11/05/2019 12:03 AM CDT) GLUCOSE POC 104(H) 74 - 99 mg/dL 11/05/2019 12:03 AM CDT [facility] LABORATORY [facility] FACILITIES SPECIALIST NAME POC CAROLE LEVY 11/05/2019 12:03 AM CDT [facility] LABORATORY [facility] Blood, whole 11/05/2019 12:0 3 AM CDT 11/05/2019 12:53 AM CDT Ashley Helms MD POINT OF CARE TESTIN G Performing Organization Address [facility] Co de Phone Number [facility]# [id number] [address] [place] [address] * (ABNORMAL) POC GLUCOSE (11/04/2019 8:00 PM CDT) GLUCOSE POC 106(H) 74 - 99 mg/dL 11/04/2019 8:00 PM CDT [facility] LABORATORY [facility] FACILITIES SPECIALIST NAME POC CAROLE LEVY 11/04/2019 8:00 PM CDT [facility] LABORATORY [facility] Blood, whole 11/04/2019 8:00 PM CDT 11/04/2019 9:57 PM CDT Ashley Helms MD POINT OF CARE TESTKIM Keen Performing Organization Address [facility] Co de Phone Number [facility]# [id number] [address] [place] [place] [address] * (ABNORMAL) POC GLUCOSE (11/04/2019 4:10 PM CDT) GLUCOSE POC 105(H) 74 - 99 mg/dL 11/04/2019 4:10 PM CDT [facility] LABORATORY [facility] COMMENT, GLU POC Notified RN/MD 11/04/2019 4:10 PM CDT [facility] LABORATORY [facility] FACILITIES SPECIALIST NAME POC RAMÍREZ RAMIREZLY 11/04/2019 4:10 PM CDT [facility] LABORATORY [facility] Blood, whole 11/04/2019 4:10 PM CDT 11/04/2019 6:07 PM CDT Ashley Helms MD POINT OF CARE TESTKIM Keen Performing Organization Address [facility]/ZIP Co de Phone Number [facility] [employer] [facility] CLIA# [id number] [address] [place] [address] * (ABNORMAL) POC GLUCOSE (11/04/2019 12:18 PM CDT) GLUCOSE POC 113(H) 74 - 99 mg/dL 11/04/2019 12:18 PM CDT [facility] FACILITIES SPECIALIST NAME POC CLEMENCIA DODSON 11/04/2019 12:18 PM CDT [facility] SERVICES [facility] Blood, whole 11/04/2019 12:1 8 PM CDT 11/04/2019 12:40 PM CDT Ashley Helms MD POINT OF CARE TESTKIM Leonila Performing Organization Address [facility] Co de Phone Number [facility] [employer] [facility] CLIA# [id number] [address] [place] [address] * (ABNORMAL) POC GLUCOSE (11/04/2019 8:57 AM CDT) GLUCOSE POC 112(H) 74 - 99 mg/dL 11/04/2019 8:57 AM CDT [employer] LABORATORY SERVICES [facility] COMMENT, GLU POC Notified RN/MD 11/04/2019 8:57 AM CDT [employer] LABORATORY SERVICES [facility] FACILITIES SPECIALIST NAME POC JANAE RAMIREZ 11/04/2019 8:57 AM CDT [facility] Blood, whole 11/04/2019 8:57 AM CDT 11/04/2019 9:04 AM CDT Ashley Helms MD POINT OF CARE TESTKIM Keen Performing Organization Address [facility]/ZIP Co de Phone Number [facility] LABORATORY SERVICES [facility] CLIA# [id number] [address] [place] [address] * (ABNORMAL) CBC WITH DIFFERENTIAL (11/04/2019 7:14 AM CDT) [facility] WBC 11.6(H) 4.0 - 9.8 K/uL 11/04/2019 8:10 AM CDT [employer] LABORATORY SERVICES - [facility] RBC 3.88(L) 3.90 - 4.90 M/uL 11/04/2019 8:10 AM CDT [employer] LABORATORY SERVICES - [facility] HEMOGLOBIN 11.8 11.8 - 14.8 g/dL 11/04/2019 8:10 AM CDT [employer] LABORATORY SERVICES - [facility] HEMATOCRIT 36.5 35.5 - 44.0 % 11/04/2019 8:10 AM CDT [employer] LABORATORY SERVICES - [facility] MCV 94.1 82.0 - 99.0 fL 11/04/2019 8:10 AM CDT [employer] LABORATORY SERVICES - [facility] MCH 30.4 27.2 - 32.6 pg 11/04/2019 8:10 AM CDT [employer] LABORATORY SERVICES - [facility] MCHC 32.3 31.5 - 35.5 g/dL 11/04/2019 8:10 AM CDT [employer] LABORATORY SERVICES - [facility] RDW 13.3 11.5 - 14.5 % 11/04/2019 8:10 AM CDT [employer] LABORATORY SERVICES - [facility] RDW-STDEV 45.9 37.1 - 48.7 fL 11/04/2019 8:10 AM CDT [employer] LABORATORY SERVICES - [facility] PLATELETS 234 140 - 350 K/uL 11/04/2019 8:10 AM CDT [employer] LABORATORY SERVICES - [facility] MPV 9.7 9.3 - 12.4 fL 11/04/2019 8:10 AM CDT [employer] LABORATORY SERVICES - [facility] NEUTROPHILS 78 % 11/04/2019 8:10 AM CDT [employer] LABORATORY SERVICES - [facility] LYMPHOCYTES 12 % 11/04/2019 8:10 AM CDT [employer] LABORATORY SERVICES - [facility] MONOCYTES 9 % 11/04/2019 8:10 AM CDT [employer] LABORATORY SERVICES - [facility] EOSINOPHILS 0 % 11/04/2019 8:10 AM CDT [employer] LABORATORY SERVICES - [facility] BASOPHILS 0 % 11/04/2019 8:10 AM CDT [facility] SERVICES - [facility] IMMATURE GRANULOCYTES 0 % 11/04/2019 8:10 AM CDT [facility] LABORATORY SERVICES - . [facility] NEUTROPHIL ABSOLUTE 9.00(H) 1.90 - 7.00 K/uL 11/04/2019 8:10 AM CDT [facility] LABORATORY SERVICES - . [facility] LYMPHOCYTE ABSOLUTE 1.40 0.70 - 4.50 K/uL 11/04/2019 8:10 AM CDT [facility] LABORATORY SERVICES - . [facility] MONOCYTE ABSOLUTE 1.09 0.10 - 1.30 K/uL 11/04/2019 8:10 AM CDT [facility] LABORATORY SERVICES - . [facility] EOSINOPHIL ABSOLUTE 0.01 0.00 - 0.70 K/uL 11/04/2019 8:10 AM CDT [facility] LABORATORY SERVICES - [facility] BASOPHILS ABSOLUTE 0.01 0.00 - 0.20 K/uL 11/04/2019 8:10 AM CDT [facility] LABORATORY SERVICES - . [facility] IMMATURE GRANULOCYTES ABSOLUTE 0.05(H) 0.00 - 0.03 K/uL 11/04/2019 8:10 AM T [facility] LABORATORY [facility] Blood Venipuncture / Unknown 11/04/2019 7:14 AM CDT 11/04/2019 7:55 AM CDT Ashley Helms MD HEMATOLOGY ORDERABLE S [facility]# [id number] [address] [place] [id number] * (ABNORMAL) BASIC METABOLIC PANEL (11/04/2019 7:14 AM CDT) [facility] SODIUM 136 136 - 145 mmol/L 11/04/2019 8:52 AM CDT [facility] LABORATORY SERVICES [facility] POTASSIUM 3.7 3.5 - 5.0 mmol/L 11/04/2019 8:52 AM CDT [facility] LABORATORY SERVICES - . [facility] CHLORIDE 100 98 - 107 mmol/L 11/04/2019 8:52 AM CDT [facility] LABORAT[facility] SERVICES [facility] CO2 25 22 - 29 mmol/L 11/04/2019 8:52 AM CDT [facility] LABORATORY SERVICES [facility] CALCIUM 8.4(L) 8.6 - 10.2 mg/dL 11/04/2019 8:52 AM [facility] BUN 7 6 - 20 mg/dL 11/04/2019 8:52 AM T [facility] CREATININE 0.55 0.51 - 0.95 mg/dL 11/04/2019 8:52 AM T [facility] GLUCOSE 115(H) 74 - 99 mg/dL 11/04/2019 8:52 AM T [facility] GFR >60 >=60 mL/min/1.7 3 sq meter 11/04/2019 8:52 AM T [facility] Comment: eGFR has not been validated for [...] refer to the GFR result. GFR, >60 >=60 mL/min/1.7 3 sq meter 11/04/2019 8:52 AM T [facility] ANION GAP 11 8 - 16 mmol/L 11/04/2019 8:52 AM T [facility] Blood Venipuncture / Unknown 11/04/2019 7:14 AM CDT 11/04/2019 7:55 AM CDT Allan Wheeler MD CHEMISTRY ORDERABL ES [facility]# [id number] [facility] [place]E [place] [id number] * (ABNORMAL) POC GLUCOSE (11/04/2019 4:19 AM CDT) GLUCOSE POC 109(H) 74 - 99 mg/dL 11/04/2019 4:19 AM CDT [facility]. [facility]NA[facility] COMMENT, GLU POC Notified RN/MD 11/04/2019 4:19 AM CDT [facility] [employer] SERVICES - [facility] FACILITIES SPECIALIST NAME POC [place] 11/04/2019 4:19 AM T [facility] [employer] [facility] - [facility] Blood, whole 11/04/2019 4:19 AM CDT 11/04/2019 4:37 AM CDT Ashley Helms MD POINT OF CARE TESTIN G [facility] [employer] [facility] CLIA# [id number] [facility] [place] [id number] * (ABNORMAL) HEPATIC FUNCTION PANEL (11/04/2019 12:03 AM CDT) TOTAL PROTEIN 7.0 6.7 - 8.6 g/dL 11/04/2019 12:49 AM [facility] [employer] [facility] ALBUMIN 4.0 3.5 - 5.2 g/dL 11/04/2019 12:49 AM [facility] [employer] [facility] BILIRUBIN TOTAL 0.7 0.3 - 1.2 mg/dL 11/04/2019 12:49 AM [facility] [employer] [facility] BILIRUBIN DIRECT 0.3 <0.4 mg/dL 11/04/19 20 12:49 AM [facility] LABORATORY [facility] ALKALINE PHOSPHATASE 72 35 - 104 U/L 11/04/2019 12:49 AM T [facility] [employer] [facility] AST 51(H) <33 U/L 11/04/2019 12:49 AM [facility] [employer] [facility] ALT 55(H) <34 U/L 11/04/2019 12:49 AM T [facility] [employer] [facility] Blood Venipuncture / Unknown 11/04/2019 12:03 AM CDT 11/04/2019 12:18 AM CDT Narrative [facility] LABORATORY SERVICES - [facility] - 11/04/2019 12:49 AM CDT Samples containing indocyanine green cause interferences on Total and/or Direct Bilirubin and must not be measured. Allan Wheeler MD CHEMISTRY ORDERABL ES Performing Organization Address [facility]/ZIP Co de Phone Number [facility]# [id number] [address] [place] [address] * (ABNORMAL) POC GLUCOSE (11/04/2019 12:02 AM CDT) GLUCOSE POC 123(H) 74 - 99 mg/dL 11/04/2019 12:02 AM CDT [facility] LABORATORY SERVICES [facility] COMMENT, GLU POC Notified RN/ 11/04/2019 12:02 AM CDT [facility] LABORATORY SERVICES [facility] FACILITIES SPECIALIST NAME CLINT RUIZ 11/04/2019 12:02 AM CDT [facility] LABORATORY SERVICES [facility] Blood, whole 11/04/2019 12:0 2 AM CDT 11/04/2019 12:08 AM CDT Ashley Helms MD POINT OF CARE TESTKIM G Performing Organization Address [facility] Co de Phone Number [facility] [employer] [facility]# [id number] [address] [place] [address] * (ABNORMAL) POC GLUCOSE (11/03/2019 8:06 PM CDT) GLUCOSE POC 118(H) 74 - 99 mg/dL 11/03/2019 8:06 PM CDT [facility] LABORATORY [facility] COMMENT, GLU POC Notified RN/ 11/03/2019 8:06 PM CDT [facility] LABORATORY SERVICES [facility] FACILITIES SPECIALIST NAME CLINT RUIZ 11/03/2019 8:06 PM CDT [facility] LABORATORY SERVICES [facility] Blood, whole 11/03/2019 8:06 PM CDT 11/03/2019 8:17 PM CDT Ashley Helms MD POINT OF CARE TESTIN G Performing Organization Address City/[facility]/ZIP Co de Phone Number [facility] LABORATORY [facility]# [id number] [address] [place] [address] * (ABNORMAL) POC GLUCOSE (11/03/2019 4:08 PM CDT) GLUCOSE POC 137(H) 74 - 99 mg/dL 11/03/2019 4:08 PM CDT [facility] LABORATORY [facility] FACILITIES SPECIALIST NAME POC OLY ARNOLD 11/03/2019 4:08 PM CDT [facility] LABORATORY SERVICES [facility] Blood, whole 11/03/2019 4:08 PM CDT 11/03/2019 4:14 PM CDT Ashley Helms MD POINT OF CARE VIVIANA Keen Performing Organization Address [facility]/ZIP Co de Phone Number [facility] [employer] [facility] CLIA# [id number] [address] [place] [address] * (ABNORMAL) POC GLUCOSE (11/03/2019 11:45 AM CDT) GLUCOSE POC 152(H) 74 - 99 mg/dL 11/03/2019 11:45 AM CDT [facility] LABORATORY [facility] FACILITIES SPECIALIST NAME POC NIKKI FIGUEREDO 11/03/2019 11:45 AM CDT [facility] LABORATORY [facility] Blood, whole 11/03/2019 11:4 5 AM CDT 11/03/2019 11:52 AM CDT Ashley Helms MD POINT OF CARE VIVIANA Keen Performing Organization Address [facility]/ZIP Co de Phone Number [facility] [employer] [facility] CLIA# [id number] [address] [place] [address] * PATHOLOGY (11/03/2019 9:28 AM CDT) CASE REPORT Surgical Pathology Report ? Case: [id number] ? Authorizing Provider: ??Allan Wheeler MD ? Collected: ? 11/03/2019 09:28 AM ? Ordering Location: ? [facility] ?Received: ?11/03/2019 11:57 AM ? Operating Room ? Pathologist: ? Josiah Doe, DO ? Specimens: ?? A) - Gallbladder ? B) - Small Intestine, SMALL INTESTINE ? 11/04/2019 2:49 PM CDT [facility] FINAL DIAGNOSIS Gallbladder, cholecystectomy: -Cholelithiasis. -Mild chronic cholecystitis with cholesterolosis. Small bowel, resection: -Transmural defect, consistent with enterotomy. -Serosal adhesions. -Mucosal margins viable. 11/04/2019 2:49 PM CDT [facility] [employer] [facility] IMEN DESCRIPTION (A) gallbladder; (B) small intestine. 11/04/2019 2:49 PM [facility] [employer] [facility] OPERATIVE PROCEDURE 1: CHOLECYSTECTOMY 11/04/2019 2:49 PM [facility] CLINICAL INFORMATION No Dx found. 11/04/2019 2:49 PM [facility] [employer] [facility] GROSS DESCRIPTION Received are two containers labeled Lis Phelan . Received in the first container additionally labeled gallbladder is a 9.0 x 2.3 x 1.6 cm partially collapsed gallbladder. The serosa is red with diffuse thin adhesions. The cystic duct is marked as a suture and measures 0.2 cm in diameter. Lumen is filled with thickened, semitranslucent green-brown bile and a 1.3 cm round, granular yellow-green stone. The stone is present in the neck of the gallbladder and may obstruct the cystic duct. Mucosa is red and velvety with yellow speckling. Average wall thickness is 0.2 cm. No distinct lesions are identified. The cystic duct (blue) and sections of gallbladder are submitted in cassette A1. Received in the second container additionally labeled small intestine is a 3.7 cm long by 6.0 cm in circumference segment of small bowel with minimal attached adipose tissue. The segment is received closed with both margins stapled. The serosa is red-arrieta with purple-red adhesions and a 2.5 x 0.7 cm full-thickness defect near the center of the bowel segment. The mucosa surrounding the defect is partially erythematous and. The defect comes to within 1.3 cm from the closest bowel margin. The remainder the mucosa is red-arrieta and demonstrates a normal folding pattern. No mass lesions are identified. The average wall thickness is 0.2 cm. [place] [employer] sections are submitted as follows: B1-bowel margin closest to defect, en face; B2-opposite bowel margin, en face; S1-dsom-siypcdpbc defect (edge of defect inked blue). 11/04/2019 2:49 PM [facility] [employer] [facility] MICROSCOPIC DESCRIPTION The slides are labeled [id number] and Lis Phelan. Sections from the gallbladder show benign mucosa with mild chronic inflammation and scattered collections of foamy macrophages expanding the superficial lamina propria, compatible with cholesterolosis. The inflammatory infiltrate consist predominantly of lymphocytes with scattered intermingled eosinophils. The inflammation extends from mucosal surface into the underlying gallbladder wall. There are scattered small diverticular structures (Rokitansky-Aschoff sinuses). Reactive epithelial changes are noted. No dysplasia or carcinoma is identified. Sections from the small intestine show predominantly unremarkable small bowel mucosa with well preserved villous architecture. Scattered mucosal lymphoid aggregates are present. In the area of the noted transmural defect there is minimal acute inflammation. Fresh hemorrhage is noted within the submucosa, and the submucosal vessels appear congested. Somewhat prominent serosal adhesions are noted. The mucosa at the surgical margins appears viable. 11/04/2019 2:49 PM CDT [facility] COMMENT Special stain and/or immunohistochemical results are interpreted with controls that demonstrate appropriate staining reactions. Note on use of immunocytochemistry reagents: This test was developed and its performance characteristics determined by [facility], Department of Laboratory Medicine. It has not been cleared or approved by the U.S. Food and Drug Administration. The FDA has determined that such clearance or approval is not necessary. The test is used for clinical purposes. It should not be regarded as investigational or for research. This laboratory is certified to perform high complexity testing. Cases may have been signed out in part or completely in the following laboratories: [facility], [place] #[id number] [address] [place] [address] [facility] CLIA #[id number] [address] [place] [address] [facility]/[place], CLIA #[id number] [place] [address]. 11/04/2019 2:49 PM CDT [facility] Tissue ENTIRE GALLBLADDER / Unknown Collection / Unknown 11/03/2019 9:28 AM CDT 11/03/2019 11:57 AM CDT Tissue specimen (specimen) (Small Intestine) Collection / Unknown 11/03/2019 10:27 AM CDT 11/03/2019 11:57 AM CDT Allan Wheeler MD PATHOLOGY/CYTOLOGY ORDERABLES [facility] CLIA# [id number] [address] [place] [address] * (ABNORMAL) POC GLUCOSE (11/03/2019 4:47 AM CDT) GLUCOSE POC 103(H) 74 - 99 mg/dL 11/03/2019 4:47 AM CDT [facility] LABORATORY [facility] FACILITIES SPECIALIST NAME SRIRAM VARGAS 11/03/2019 4:47 AM CDT [facility] LABORATORY SERVICES [facility] Blood, whole 11/03/2019 4:47 AM CDT 11/03/2019 4:54 AM CDT Ashley Helms MD POINT OF CARE TESTKIM G [facility] [employer] [facility] CLIA# [id number] [address] [place] [address] * POC GLUCOSE (11/03/2019 12:21 AM CDT) GLUCOSE POC 90 74 - 99 mg/dL 11/03/2019 12:21 AM CDT [facility] LABORATORY [facility] FACILITIES SPECIALIST NAME SRIRAM VARGAS 11/03/2019 12:21 AM CDT [facility] LABORATORY [facility] Blood, whole 11/03/2019 12:2 1 AM CDT 11/03/2019 12:27 AM CDT Ashley Helms MD POINT OF CARE TESTKIM Keen [facility] [employer] [facility] [id number] [address] [place] [address] * POC GLUCOSE (11/02/2019 7:23 PM CDT) GLUCOSE POC 98 74 - 99 mg/dL 11/02/2019 7:23 PM CDT [facility] LABORATORY [facility] COMMENT, GLU POC Notified RN/MD 11/02/2019 7:23 PM CDT [facility] LABORATORY SERVICES [facility] FACILITIES SPECIALIST NAME POC SRIRAM ISIDRO 11/02/2019 7:23 PM CDT [facility] LABORATORY SERVICES [facility] Blood, whole 11/02/2019 7:23 PM CDT 11/02/2019 7:30 PM CDT Ashley Helms MD POINT OF CARE TESTIN G Performing Organization Address [facility]/ZIP Co de Phone Number [facility] CLIA# [id number] [address] [place] [address] * POC GLUCOSE (11/02/2019 1:46 PM CDT) GLUCOSE POC 88 74 - 99 mg/dL 11/02/2019 1:46 PM CDT [facility] LABORATORY [facility] COMMENT, GLU POC Notified RN/MD 11/02/2019 1:46 PM CDT [facility] LABORATORY [facility] FACILITIES SPECIALIST NAME POC SANDRA SANCHEZ 11/02/2019 1:46 PM CDT [facility] LABORATORY [facility] Blood, whole 11/02/2019 1:46 PM CDT 11/02/2019 2:21 PM CDT Ashley Helms MD POINT OF CARE TESTKIM G Performing Organization Address [facility] Co de Phone Number [facility] [id number] [address] [place] [address] * MRSA PCR RAPID SCREEN (11/02/2019 12:39 PM CDT) MRSA PCR RESULT MRSA not detected MRSA not detected 11/02/2019 3:01 PM CDT [facility] LABORATORY [facility] Surveillance ANTERIOR NARES SWAB / Unknown Collection / Unknown 11/02/2019 12:39 PM CDT 11/02/2019 12:50 PM CDT Narrative [facility] LABORATORY [facility] - 11/02/2019 3:01 PM CDT This assay is used to detect Methicillin-Resistant S. aureus (MRSA) colonization of the nares. PLEASE NOTE: ??This test has not been approved to monitor effectiveness of MRSA decolonization. Residual DNA may temporarily be present after successful decolonization. This test was performed using an FDA approved screening methodology. Allan Wheeler MD MICROBIOLOGY - GEN ERAL ORDERABLES Performing Organization Address [facility] Co de Phone Number [facility] LABORATORY [facility]# [id number] [address] [place] [address] * 2019 NOVEL CORONAVIRUS (COVID-19) PCR DETECTION (11/02/2019 12:39 PM CDT) [facility] COVID-19 PCR Not Detected Not Detected 11/03/19 20 10:16 AM CDT [facility] LABORATORY SERVICES --- [facility] PERFORMING LAB [facility] 11/03/2019 10:16 AM CDT [facility] LABORATORY [facility] Upper Respiratory ENTIRE NASOPHARYNX / Unknown Collection / Unknown 11/02/2019 12:39 PM CDT 11/02/2019 12:51 PM CDT [facility] LABORATORY SERVICES --- [facility] - 11/03/2019 10:16 AM CDT Results called to Sepideh MATAMOROS by Lora Reveles at 10:14 AM on 11/03/2019. Allan Wheeler MD MICROBIOLOGY - GEN ERAL ORDERABLES Performing Organization Address [facility] Co de Phone Number [facility] LABORATORY SERVICES --- [facility]# [id number] [address] [place] [address] [facility] LABORATORY [facility] CLIA# [id number] [address] [place] [address] * MRI MRCP W AND WO CONTRAST (11/02/2019 11:57 AM CDT) Anatomical Region Laterality Modality Abdomen Magnetic Resonan ce 11/02/2019 12:0 0 PM CDT Impressions 11/02/2019 1:08 PM CDT IMPRESSION: Hepatic steatosis. Cholelithiasis. Intrahepatic and extrahepatic biliary ductal dilatation, common bile duct measuring up to 11 mm in diameter. No ductal filling defect, stricture, or periampullary mass. DICTATION LOCATION: Location [address] [place] [address] 11/02/2019 1:08 PM CDT MRI MRCP W AND WO CONTRAST DATE: 11/02/2019 11:57 AM CLINICAL INFORMATION: Dilated common bile duct COMPARISON: CT abdomen and pelvis 11/01/2019 PROCEDURE: MRI of the abdomen performed before and after the administration of intravenous contrast. 20 cc of ProHance was administered. MRCP also performed. FINDINGS: LOWER CHEST: Within normal limits. LIVER: Diffuse steatosis. Normal morphology. VESSELS: Within normal limits. GALLBLADDER: ??Cholelithiasis. BILE DUCTS: Mild intrahepatic and extrahepatic biliary ductal dilatation, common bile duct measuring up to 11 mm in diameter. No common bile duct filling defect, stricture or periampullary mass. PANCREAS: Within normal limits. SPLEEN: Within normal limits. ADRENALS: Within normal limits. KIDNEYS/URETERS: Within normal limits. VISUALIZED PORTIONS: BOWEL: Within normal limits. PERITONEUM/RETROPERITONEUM: No ascites or significant lymphadenopathy. ABDOMINAL WALL: Within normal limits. BONES: Within normal limits. Procedure Note Carlos Abebe MD - 11/02/2019 MRI MRCP W AND WO CONTRAST DATE: 11/02/2019 11:57 AM CLINICAL INFORMATION: Dilated common bile duct COMPARISON: CT abdomen and pelvis 11/01/2019 PROCEDURE: MRI of the abdomen performed before and after the administration of intravenous contrast. 20 cc of ProHance was administered. MRCP also performed. FINDINGS: LOWER CHEST: Within normal limits. LIVER: Diffuse steatosis. Normal morphology. VESSELS: Within normal limits. GALLBLADDER: Cholelithiasis. BILE DUCTS: Mild intrahepatic and extrahepatic biliary ductal dilatation, common bile duct measuring up to 11 mm in diameter. No common bile duct filling defect, stricture or periampullary mass. PANCREAS: Within normal limits. SPLEEN: Within normal limits. ADRENALS: Within normal limits. KIDNEYS/URETERS: Within normal limits. VISUALIZED PORTIONS: BOWEL: Within normal limits. PERITONEUM/RETROPERITONEUM: No ascites or significant lymphadenopathy. ABDOMINAL WALL: Within normal limits. BONES: Within normal limits. IMPRESSION: Hepatic steatosis. Cholelithiasis. Intrahepatic and extrahepatic biliary ductal dilatation, common bile duct measuring up to 11 mm in diameter. No ductal filling defect, stricture, or periampullary mass. DICTATION LOCATION: Location 1 - [facility] Allan Wheeler MD MR ORDERABLES * (ABNORMAL) POC GLUCOSE (11/02/2019 8:21 AM CDT) GLUCOSE POC 107(H) 74 - 99 mg/dL 11/02/2019 8:21 AM CDT [facility] LABORATORY [facility] COMMENT, GLU POC Notified RN/MD 11/02/2019 8:21 AM CDT [facility] LABORATORY [facility] FACILITIES SPECIALIST NAME POC SANDRA SANCHEZ 11/02/2019 8:21 AM CDT [facility] [employer] [facility] Blood, whole 11/02/2019 8:21 AM CDT 11/02/2019 8:29 AM CDT Ashley Helms MD POINT OF CARE TESTIN G [facility] [employer] [facility]# [id number] [address] [facility] [place] [address] * (ABNORMAL) COMPREHENSIVE METABOLIC PANEL (11/02/2019 4:35 AM CDT) Pathologist [facility] SODIUM 140 136 - 145 mmol/L 11/02/2019 6:41 AM T [facility] LABORATORY [facility] POTASSIUM 3.5 3.5 - 5.0 mmol/L 11/02/2019 6:41 AM T [facility] LABORATORY [facility] Comment:Significant change f rom prior result, correlate clinically and redraw if necessary. CHLORIDE 103 98 - 107 mmol/L 11/02/2019 6:41 AM CDT [facility] LABORATORY [facility] CO2 26 22 - 29 mmol/L 11/02/2019 6:41 AM T [facility] LABORATORY [facility] CALCIUM 8.5(L) 8.6 - 10.2 mg/dL 11/02/2019 6:41 AM T [facility] LABORATORY [facility] BUN 6 6 - 20 mg/dL 11/02/2019 6:41 AM T [facility] LABORATORY [facility] CREATININE 0.65 0.51 - 0.95 mg/dL 11/02/2019 6:41 AM [facility] [employer] LABORATORY SERVICES - [facility] GLUCOSE 104(H) 74 - 99 mg/dL 11/02/2019 6:41 AM [facility] [employer] LABORATORY SERVICES - . [facility] TOTAL PROTEIN 6.6(L) 6.7 - 8.6 g/dL 11/02/2019 6:41 AM [facility] [employer] LABORATORY SERVICES - . [facility] ALBUMIN 3.8 3.5 - 5.2 g/dL 11/02/2019 6:41 AM [facility] [employer] LABORATORY SERVICES - [facility] BILIRUBIN TOTAL 0.5 0.3 - 1.2 mg/dL 11/02/2019 6:41 AM [facility] [employer] LABORATORY SERVICES - [facility] ALKALINE PHOSPHATASE 72 35 - 104 U/L 11/02/2019 6:41 AM [facility] [employer] LABORATORY SERVICES - . [facility] AST 14 <33 U/L 11/02/2019 6:41 AM [facility] [employer] LABORATORY SERVICES - . [facility] ALT 21 <34 U/L 11/02/2019 6:41 AM [facility] [employer] LABORATORY SERVICES - [facility] GFR >60 >=60 mL/min/1.7 3 sq meter 11/02/2019 6:41 AM [facility] [employer] SERVICES - [facility] Comment: eGFR has not been validated for [...] refer to the GFR result. GFR, >60 >=60 mL/min/1.7 3 sq meter 11/02/2019 6:41 AM [facility] [employer] LABORATORY SERVICES - [facility] ANION GAP 11 8 - 16 mmol/L 11/02/2019 6:41 AM [facility] [employer] SERVICES [facility] Blood Collection / Unknown 11/02/2019 4:35 AM T 11/02/2019 5:03 AM CDT Narrative [facility] LABORATORY SERVICES [facility] - 11/02/2019 6:41 AM CDT Samples containing indocyanine green cause interferences on Total and/or Direct Bilirubin and must not be measured. Shobha Choi MD CHEMISTRY ORDERABLES Performing Organization Address [facility] Co de Phone Number [facility]# [id number] [address] [place] [address] * (ABNORMAL) POC GLUCOSE (11/02/2019 4:21 AM CDT) GLUCOSE POC 100(H) 74 - 99 mg/dL 11/02/2019 4:21 AM CDT [facility] LABORATORY [facility] COMMENT, GLU POC Notified RN/ 11/02/2019 4:21 AM CDT [facility] LABORATORY [facility] FACILITIES SPECIALIST NAME POC EDER ARVIZU 11/02/2019 4:21 AM CDT [facility] LABORATORY [facility] Blood, whole 11/02/2019 4:21 AM CDT 11/02/2019 5:17 AM CDT Ashley Helms MD POINT OF CARE TESTIN G Performing Organization Address [facility] Co de Phone Number [facility]# [id number] [address] [place] [address] * (ABNORMAL) POC GLUCOSE (11/02/2019 12:11 AM CDT) GLUCOSE POC 138(H) 74 - 99 mg/dL 11/02/2019 12:11 AM CDT [facility] LABORATORY [facility] COMMENT, GLU POC Notified RN/ 11/02/2019 12:11 AM CDT [facility] LABORATORY [facility] FACILITIES SPECIALIST NAME POC EDER ARVIZU 11/02/2019 12:11 AM CDT [facility] LABORATORY [facility] Blood, whole 11/02/2019 12:1 1 AM CDT 11/02/2019 12:59 AM CDT Ashley Helms MD POINT OF CARE TESTIN Leonila Performing Organization Address [facility]/ZIP Co de Phone Number [facility] [employer] [facility] CLIA# [id number] [address] [place] [address] * (ABNORMAL) POC GLUCOSE (11/01/2019 8:22 PM CDT) GLUCOSE POC 114(H) 74 - 99 mg/dL 11/01/2019 8:22 PM CDT [facility] LABORATORY [facility] COMMENT, GLU POC Notified RN/MD 11/01/2019 8:22 PM CDT [facility] LABORATORY [facility] FACILITIES SPECIALIST NAME POC EDER ARVIZU 11/01/2019 8:22 PM CDT [facility] LABORATORY [facility] Blood, whole 11/01/2019 8:22 PM CDT 11/01/2019 9:55 PM CDT Ashley Helms MD POINT OF CARE TESTIN Leonila Performing Organization Address [facility]/ZIP Co de Phone Number [facility] [employer] [facility] CLIA# [id number] [address] [place] [address] * POC GLUCOSE (11/01/2019 5:56 PM CDT) GLUCOSE POC 92 74 - 99 mg/dL 11/01/2019 5:56 PM CDT [facility] LABORATORY [facility] FACILITIES SPECIALIST NAME POC ZAHRA GREGORY 11/01/2019 5:56 PM CDT [facility] LABORATORY [facility] Blood, whole 11/01/2019 5:56 PM CDT 11/01/2019 6:04 PM CDT Ashley Helms MD POINT OF CARE TESTIN G [facility] [employer] [facility] CLIA# [id number] [address] [place] [address] * (ABNORMAL) POC GLUCOSE (11/01/2019 2:22 PM CDT) GLUCOSE POC 103(H) 74 - 99 mg/dL 11/01/2019 2:22 PM CDT [facility] LABORATORY [facility] FACILITIES SPECIALIST NAME POC SHAHID BHAKTA 11/01/2019 2:22 PM CDT [facility] LABORATORY [facility] Blood, whole 11/01/2019 2:22 PM CDT 11/01/2019 2:33 PM CDT Ashley Helms MD POINT OF CARE TESTIN G Performing Organization Address [facility]/ZIP Co de Phone Number [facility] CLIA# [id number] [address] [place] [address] * (ABNORMAL) POC GLUCOSE (11/01/2019 10:11 AM CDT) GLUCOSE POC 101(H) 74 - 99 mg/dL 11/01/2019 10:11 AM CDT [facility] LABORATORY [facility] FACILITIES SPECIALIST NAME POC SHAHID BHAKTA 11/01/2019 10:11 AM CDT [facility] LABORATORY [facility] Blood, whole 11/01/2019 10:1 1 AM CDT 11/01/2019 10:25 AM CDT Ashley Helms MD POINT OF CARE TESTKIM G Performing Organization Address [facility] Co de Phone Number [facility] CLMI# [id number] [address] [place] [address] * US ABDOMEN LIMITED (11/01/2019 8:16 AM CDT) Anatomical Region Laterality Modality Abdomen Ultrasound 11/01/2019 8:17 AM CDT Impressions 11/01/2019 8:26 AM CDT IMPRESSION: Severe hepatic steatosis limiting thorough evaluation of the liver Cholelithiasis , Bile duct dilatation DICTATION LOCATION: Location 4 Narrative 11/01/2019 8:26 AM CDT ULTRASOUND OF THE ABDOMEN LIMITED DATE: 11/01/2019 8:16 AM HISTORY: Abdominal Pain RUQ; Gallstones. ?? Acalculous cholecystitis; Right upper quadrant abdominal pain COMPARISON: None available. FINDINGS: Multiple transverse, longitudinal and oblique images of the right upper quadrant were obtained. The hepatic texture is homogeneously echogenic and difficult to penetrate thoroughly evaluate. ??There is no intrahepatic ductal dilatation. Portal venous blood flow is normal without reversal or thromboses. The pancreas is partially visible and portions of the body and head appear normal. At least one shadowing gallstone is identified, measuring 1.7 cm in diameter. There is no gallbladder wall thickening. The common bile duct is dilated measuring 11 mm and then tapers distally and the pancreas. No obstructing masses or stones are visualized. There is no evidence of ascites or fluid in Bird's pouch. INCIDENTAL FINDINGS: ??None. Procedure Note Diana Dubose MD - 11/01/2019 ULTRASOUND OF THE ABDOMEN LIMITED DATE: 11/01/2019 8:16 AM HISTORY: Abdominal Pain RUQ; Gallstones. Acalculous cholecystitis; Right upper quadrant abdominal pain COMPARISON: None available. FINDINGS: Multiple transverse, longitudinal and oblique images of the right upper quadrant were obtained. The hepatic texture is homogeneously echogenic and difficult to penetrate thoroughly evaluate. There is no intrahepatic ductal dilatation. Portal venous blood flow is normal without reversal or thromboses. The pancreas is partially visible and portions of the body and head appear normal. At least one shadowing gallstone is identified, measuring 1.7 cm in diameter. There is no gallbladder wall thickening. The common bile duct is dilated measuring 11 mm and then tapers distally and the pancreas. No obstructing masses or stones are visualized. There is no evidence of ascites or fluid in Bird's pouch. INCIDENTAL FINDINGS: None. IMPRESSION: Severe hepatic steatosis limiting thorough evaluation of the liver Cholelithiasis , Bile duct dilatation DICTATION LOCATION: Location 4 Demario Koo DO SMITH ORDERABLES * (ABNORMAL) CBC WITH DIFFERENTIAL (11/01/2019 6:58 AM CDT) WBC 8.9 4.0 - 9.8 K/uL 11/01/2019 7:18 AM CDT [facility] LABORATORY SERVICES [facility] RBC 4.13 3.90 - 4.90 M/uL 11/01/2019 7:18 AM CDT [employer] LABORATORY SERVICES - [facility] HEMOGLOBIN 12.6 11.8 - 14.8 g/dL 11/01/2019 7:18 AM CDT [employer] LABORATORY SERVICES - [facility] HEMATOCRIT 38.5 35.5 - 44.0 % 11/01/2019 7:18 AM CDT [employer] LABORATORY SERVICES - [facility] MCV 93.2 82.0 - 99.0 fL 11/01/2019 7:18 AM CDT [employer] LABORATORY SERVICES - [facility] MCH 30.5 27.2 - 32.6 pg 11/01/2019 7:18 AM CDT [employer] LABORATORY SERVICES - [facility] MCHC 32.7 31.5 - 35.5 g/dL 11/01/2019 7:18 AM CDT [employer] LABORATORY SERVICES - [facility] RDW 13.3 11.5 - 14.5 % 11/01/2019 7:18 AM CDT [employer] LABORATORY SERVICES - [facility] RDW-STDEV 45.2 37.1 - 48.7 fL 11/01/2019 7:18 AM CDT [employer] LABORATORY SERVICES - [facility] PLATELETS 251 140 - 350 K/uL 11/01/2019 7:18 AM [employer] LABORATORY SERVICES - [facility] MPV 9.2(L) 9.3 - 12.4 fL 11/01/2019 7:18 AM CDT [employer] LABORATORY SERVICES - [facility] NEUTROPHILS 58 % 11/01/2019 7:18 AM CDT [employer] LABORATORY SERVICES - [facility] LYMPHOCYTES 26 % 11/01/2019 7:18 AM CDT [employer] LABORATORY SERVICES - [facility] MONOCYTES 8 % 11/01/2019 7:18 AM CDT [employer] LABORATORY SERVICES - [facility] EOSINOPHILS 7 % 11/01/2019 7:18 AM CDT [employer] LABORATORY SERVICES - [facility] BASOPHILS 0 % 11/01/2019 7:18 AM CDT [employer] LABORATORY SERVICES - [facility] IMMATURE GRANULOCYTES 0 % 11/01/2019 7:18 AM CDT [employer] LABORATORY SERVICES - [facility] NEUTROPHIL ABSOLUTE 5.14 1.90 - 7.00 K/uL 11/01/2019 7:18 AM CDT [employer] LABORATORY SERVICES - . [facility] LYMPHOCYTE ABSOLUTE 2.35 0.70 - 4.50 K/uL 11/01/2019 7:18 AM CDT [employer] LABORATORY SERVICES - . [facility] MONOCYTE ABSOLUTE 0.75 0.10 - 1.30 K/uL 11/01/2019 7:18 AM CDT [facility] LABORATORY SERVICES - [facility] EOSINOPHIL ABSOLUTE 0.61 0.00 - 0.70 K/uL 11/01/2019 7:18 AM CDT [facility] LABORATORY [facility] - . [facility] BASOPHILS ABSOLUTE 0.04 0.00 - 0.20 K/uL 11/01/2019 7:18 AM CDT [facility] LABORATORY [facility] - [facility] IMMATURE GRANULOCYTES ABSOLUTE 0.02 0.00 - 0.03 K/uL 11/01/2019 7:18 AM CDT [facility] LABORATORY [facility] - [facility] Blood Venipuncture / Unknown 11/01/2019 6:58 AM CDT 11/01/2019 7:10 AM CDT Shobha Choi MD HEMATOLOGY ORDERABLE [facility]# [id number] [address] [facility] [place] [place] [address] * CT ABDOMEN PELVIS W CONTRAST (11/01/2019 2:04 AM CDT) Anatomical Region Laterality Modality Abdomen Computed Tomogra phy 11/01/2019 1:30 AM CDT Impressions 11/01/2019 9:17 AM CDT IMPRESSION: 1. Cholelithiasis with gallbladder wall thickening and pericholecystic fluid, compatible with cholecystitis. 2. Dilated common bile duct. Choledocholithiasis not excluded. 3. Diffuse hepatic steatosis with hepatosplenomegaly. 4. Nonobstructing right lower pole renal stone. 5. Intestinal malrotation. DICTATION LOCATION: Location 1 - [facility] Narrative 11/01/2019 9:[address] ABDOMEN PELVIS W CONTRAST WITH MULTIPLANAR REFORMATTED IMAGES DATE: 11/01/2019 2:04 AM CLINICAL INFORMATION: Abdominal pain COMPARISON: None available PROCEDURE: Axial images were obtained from the lung bases through the ischial tuberosities following the administration of 100 mL intravenous contrast. Oral contrast was not administered. Multiplanar reformatted images were reviewed. The examination was performed with the adjustment of mA according to the patient size and/or the use of Iterative Reconstruction Technique. ?? DLP: 2978 mGy-cm FINDINGS: LOWER CHEST: Within normal limits. LIVER: Hepatomegaly. Diffuse hepatic steatosis. Relative sparing along the gallbladder fossa. GALLBLADDER: Diffusely thick-walled. Pericholecystic fluid. Intraluminal gallstone. There are small bowel loops directly adjacent to the gallbladder. BILE DUCTS: The common bile duct is dilated. It measures up to 9 mm in diameter. The pancreatic duct is normal. PANCREAS: Within normal limits. SPLEEN: Enlarged, measures 14.1 cm. ADRENALS: Within normal limits. KIDNEYS/URETERS: 2 mm nonobstructing stone in the right lower pole. No hydronephrosis. No ureteral stones. BLADDER: Within normal limits. REPRODUCTIVE ORGANS: Within normal limits. BOWEL: Intestinal malrotation. The cecum is in the mid abdomen. The appendix is normal. There is no inflammation or obstruction. PERITONEUM/RETROPERITONEUM: Small volume ascites. No free air. No lymphadenopathy. VESSELS: Within normal limits. ABDOMINAL WALL: Findings of prior surgeries. BONES: Within normal limits. Procedure Note Nida Kearns MD - 11/01/2019 CT ABDOMEN PELVIS W CONTRAST WITH MULTIPLANAR REFORMATTED IMAGES DATE: 11/01/2019 2:04 AM CLINICAL INFORMATION: Abdominal pain COMPARISON: None available PROCEDURE: Axial images were obtained from the lung bases through the ischial tuberosities following the administration of 100 mL intravenous contrast. Oral contrast was not administered. Multiplanar reformatted images were reviewed. The examination was performed with the adjustment of mA according to the patient size and/or the use of Iterative Reconstruction Technique. DLP: 2978 mGy-cm FINDINGS: LOWER CHEST: Within normal limits. LIVER: Hepatomegaly. Diffuse hepatic steatosis. Relative sparing along the gallbladder fossa. GALLBLADDER: Diffusely thick-walled. Pericholecystic fluid. Intraluminal gallstone. There are small bowel loops directly adjacent to the gallbladder. BILE DUCTS: The common bile duct is dilated. It measures up to 9 mm in diameter. The pancreatic duct is normal. PANCREAS: Within normal limits. SPLEEN: Enlarged, measures 14.1 cm. ADRENALS: Within normal limits. KIDNEYS/URETERS: 2 mm nonobstructing stone in the right lower pole. No hydronephrosis. No ureteral stones. BLADDER: Within normal limits. REPRODUCTIVE ORGANS: Within normal limits. BOWEL: Intestinal malrotation. The cecum is in the mid abdomen. The appendix is normal. There is no inflammation or obstruction. PERITONEUM/RETROPERITONEUM: Small volume ascites. No free air. No lymphadenopathy. VESSELS: Within normal limits. ABDOMINAL WALL: Findings of prior surgeries. BONES: Within normal limits. IMPRESSION: 1. Cholelithiasis with gallbladder wall thickening and pericholecystic fluid, compatible with cholecystitis. 2. Dilated common bile duct. Choledocholithiasis not excluded. 3. Diffuse hepatic steatosis with hepatosplenomegaly. 4. Nonobstructing right lower pole renal stone. 5. Intestinal malrotation. DICTATION LOCATION: Location 1 - [facility] Demario Koo DO CT ORDERABLES * POC , URINE (11/01/2019 1:45 AM CDT) HCG QUAL URINE Negative Negative 11/01/2019 1:45 AM CDT [facility] [employer] [facility] FACILITIES SPECIALIST NAME POC TONIO MALCOLM 11/01/2019 1:45 AM CDT [facility] [employer] [facility] SPECIFIC GRAVITY UA POC 1.020 1.000 - 1.030 11/01/2019 1:45 AM CDT [facility] [employer] [facility] Urine 11/01/2019 1:45 AM CDT 11/01/2019 1:49 AM CDT Demario Koo DO POINT OF CARE TESTIN G [facility] [employer] [facility]# [id number] [address] [facility] [address] * URINALYSIS WITH REFLEX MICROSCOPIC (11/01/2019 1:44 AM CDT) COLOR UA Yellow Pale to Dark Yellow 11/01/2019 1:52 AM CDT [facility] [employer] [facility] CLARITY UA Clear Clear 11/01/2019 1:52 AM CDT [facility] [employer] [facility] SPECIFIC GRAVITY UA 1.016 1.003 - 1.035 11/01/2019 1:52 AM CDT [facility] [employer] [facility] PH UA 6.0 5.0 - 8.0 11/01/2019 1:52 AM CDT [employer] LABORATORY SERVICES - [facility] LEUKOCYTE ESTERASE UA Negative Negative 11/01/2019 1:52 AM CDT [employer] LABORATORY SERVICES - [facility] NITRITE UA Negative Negative 11/01/2019 1:52 AM CDT [employer] LABORATORY SERVICES - [facility] PROTEIN UA Negative Negative 11/01/2019 1:52 AM CDT [employer] LABORATORY SERVICES - [facility] GLUCOSE UA Negative Negative 11/01/2019 1:52 AM CDT [employer] LABORATORY SERVICES - [facility] KETONES UA Negative Negative 11/01/2019 1:52 AM CDT [employer] LAB[facility]ATORY SERVICES - [facility] UROBILINOGEN UA Normal <2.0 mg/dL 0 1:52 AM CDT [employer] LABORATORY SERVICES - [facility] BILIRUBIN UA Negative Negative 11/01/2019 1:52 AM CDT [employer] LABORATORY SERVICES - [facility] BLOOD UA Negative Negative 11/01/2019 1:52 AM CDT [employer] LABORATORY SERVICES - [facility] Urine URINE SPECIMEN OBTAINED BY CLEAN CATCH PROCEDURE / Unknown Collection / Unknown 11/01/2019 1:44 AM CDT 11/01/2019 1:46 AM CDT [facility] DO URINE ORDERABLES [facility] LABORATORY [facility] CLIA# [id number] [address] [place] [address] * EXTRA TUBE (GREEN) (11/01/2019 12:53 AM CDT) Blood Venipuncture / Unknown 11/01/2019 12:53 AM CDT 11/01/2019 12:56 AM CD[facility] CHEMISTRY ORDERABLES [id number] [address] [place] [address] * (ABNORMAL) CBC WITH DIFFERENTIAL (11/01/2019 12:53 AM CDT) WBC 11.0(H) 4.0 - 9.8 K/uL 11/01/2019 1:01 AM [employer] LABORATORY SERVICES - [facility] RBC 4.15 3.90 - 4.90 M/uL 11/01/2019 1:01 AM [employer], LABORATORY SERVICES - [facility] HEMOGLOBIN 12.9 11.8 - 14.8 g/dL 11/01/2019 1:01 AM [employer], LABORATORY SERVICES - [facility] HEMATOCRIT 38.1 35.5 - 44.0 % 11/01/2019 1:01 AM [employer] LABORATORY SERVICES - [facility] MCV 91.8 82.0 - 99.0 fL 11/01/2019 1:01 AM [employer] LABORATORY SERVICES - [facility] MCH 31.1 27.2 - 32.6 pg 11/01/2019 1:01 AM [employer] LABORATORY SERVICES [facility] MCHC 33.9 31.5 - 35.5 g/dL 11/01/2019 1:01 AM [employer] LABORATORY SERVICES - [facility] RDW 13.3 11.5 - 14.5 % 11/01/2019 1:01 AM [employer] LABORATORY SERVICES [facility] RDW-STDEV 45.1 37.1 - 48.7 fL 11/01/2019 1:01 AM [employer] LABORATORY SERVICES [facility] PLATELETS 284 140 - 350 K/uL 11/01/2019 1:01 AM [employer] LABORATORY SERVICES [facility] MPV 9.3 9.3 - 12.4 fL 11/01/2019 1:01 AM [employer] LABORATORY SERVICES [facility] NEUTROPHILS 59 % 11/01/2019 1:01 AM [employer] LABORATORY SERVICES [facility] LYMPHOCYTES 26 % 11/01/2019 1:01 AM [employer] LABORATORY SERVICES [facility] MONOCYTES 9 % 11/01/2019 1:01 AM [employer] LABORATORY SERVICES [facility] EOSINOPHILS 6 % 11/01/2019 1:01 AM [employer] LABORATORY SERVICES [facility] BASOPHILS 0 % 11/01/2019 1:01 AM [employer] LABORATORY SERVICES [facility] IMMATURE GRANULOCYTES 1 % 11/01/2019 1:01 AM [employer] LABORATORY SERVICES - [facility] Comment:IG (Immature Granulo cyte) count includes Metamyelocytes, Myelocytes, and Promyelocytes NEUTROPHIL ABSOLUTE 6.45 1.90 - 7.00 K/uL 11/01/2019 1:01 AM CDT [facility] LABORATORY SERVICES - . [facility] LYMPHOCYTE ABSOLUTE 2.85 0.70 - 4.50 K/uL 11/01/2019 1:01 AM CDT [facility] LABORATORY SERVICES - . [facility] MONOCYTE ABSOLUTE 0.94 0.10 - 1.30 K/uL 11/01/2019 1:01 AM CDT [facility] LABORATORY SERVICES - . [facility] EOSINOPHIL ABSOLUTE 0.70 0.00 - 0.70 K/uL 11/01/2019 1:01 AM CDT [facility] LABORATORY SERVICES - . [facility] BASOPHILS ABSOLUTE 0.04 0.00 - 0.20 K/uL 11/01/2019 1:01 AM T [facility] LABORATORY SERVICES - . [facility] IMMATURE GRANULOCYTES ABSOLUTE 0.05(H) 0.00 - 0.03 K/uL 11/01/2019 1:01 AM T [facility] LABORATORY SERVICES - [facility] Blood Venipuncture / Unknown 11/01/2019 12:53 AM CDT 11/01/2019 12:56 AM CDT Demario Koo DO HEMATOLOGY ORDERABLE S [facility] LABORATORY [facility] CLIA# [id number] [address] [place] [address] * LIPASE (11/01/2019 12:30 AM CDT) LIPASE 21 13 - 60 U/L 11/01/2019 1:25 AM CDT [facility] LABORATORY SERVICES [facility] Blood Venipuncture / Unknown 11/01/2019 12:30 AM CDT 11/01/2019 12:33 AM CDT Demario Koo DO CHEMISTRY ORDERABLES [facility] CLIA# [id number] [address] [place] [address] * (ABNORMAL) COMPREHENSIVE METABOLIC PANEL (11/01/2019 12:30 AM CDT) [facility] SODIUM 138 136 - 145 mmol/L 11/01/2019 1:19 AM [facility] [employer] SERVICES [facility] POTASSIUM 5.5(H) 3.5 - 5.0 mmol/L 11/01/2019 1:19 AM [facility] [employer] LABORATORY [facility] Comment:Moderate hemolysis p resent. Can cause significant falsely elevated result. Redraw if indicated. CHLORIDE 103 98 - 107 mmol/L 11/01/2019 1:19 AM [facility] [employer] [facility] CO2 20(L) 22 - 29 mmol/L 11/01/2019 1:19 AM [facility] [employer] [facility] CALCIUM 9.8 8.6 - 10.2 mg/dL 11/01/2019 1:19 AM [facility] BUN 11 6 - 20 mg/dL 11/01/2019 1:19 AM [facility] [employer] [facility] CREATININE 0.55 0.51 - 0.95 mg/dL 11/01/2019 1:19 AM [facility] GLUCOSE 143(H) 74 - 99 mg/dL 11/01/2019 1:19 AM [facility] LABORATORY [facility] TOTAL PROTEIN 7.5 6.7 - 8.6 g/dL 11/01/2019 1:19 AM [facility] [employer] [facility] ALBUMIN 4.2 3.5 - 5.2 g/dL 11/01/2019 1:19 AM [facility] BILIRUBIN TOTAL 0.3 0.3 - 1.2 mg/dL 11/01/2019 1:19 AM [facility] [employer] [facility] ALKALINE PHOSPHATASE 82 35 - 104 U/L 11/01/2019 1:19 AM [facility] [employer] LABORATORY SERVICES [facility] AST 27 <33 U/L 11/01/2019 1:19 AM [facility] LAB[facility] Comment:Hemolysis present. R esult may be falsely elevated. ALT 26 <34 U/L 11/01/2019 1:19 AM [facility] [employer] LABORATORY SERVICES [facility] Comment:Hemolysis present. R esult may be falsely elevated. GFR >60 >=60 mL/min/1.7 3 sq meter 11/01/2019 1:19 AM T [employer] LABORATORY [facility] Comment: eGFR has not been validated for [...] refer to the GFR result. GFR, >60 >=60 mL/min/1.7 3 sq meter 11/01/2019 1:19 AM T [facility] LABORATORY [facility] ANION GAP 15 8 - 16 mmol/L 11/01/2019 1:19 AM [facility] LABORATORY [facility] Blood Venipuncture / Unknown 11/01/2019 12:30 AM CDT 11/01/2019 12:33 AM CDT Narrative [facility] LABORATORY [facility] - 11/01/2019 1:19 AM CDT Samples containing indocyanine green cause interferences on Total and/or Direct Bilirubin and must not be measured. Demario Koo DO CHEMISTRY ORDERABLES [facility] [employer] [facility]# [id number] [address] [facility] [address] documented in this encounter Visit Diagnoses Not on filedocumented in this encounter Administered Medications Inactive Administered Medications - up to 3 most recent administrations Medication Order MAR Action Action Date Dose Rate Site acetaminophen (TYLENOL) tablet 650 mg 650 mg, Oral, EVERY 6 HOURS PRN, Starting on Thu11/01/19 at 0500, Until Thu11/08/19 at 1328, Other (See Comment), See admin instructions, Routine Given 11/02/2019 12:22 PM CDT 650 mg [id number]-[id number] (CEPACOL) lozenge 1 Each 1 Each, Mouth/Throat, EVERY 2 HOURS PRN, Starting on Crystal 11/03/19 at 1903, Until Thu11/08/19 at 1328, Cough, Sore Throat, Routine Given 11/05/2019 9:36 AM CDT 1 Each Given 11/04/2019 6:54 PM CDT 1 Each Given 11/03/2019 8:44 PM CDT 1 Each buPROPion HCL (WELLBUTRIN XL) SR 24 hour tablet 150 mg 150 mg, Oral, DAILY EARLY, First dose on Thu11/01/19 at 0600, Until Discontinued, Routine Given 11/08/2019 5:47 AM CDT 150 mg Given 11/07/2019 8:18 AM CDT 150 mg Given 11/01/2019 6:49 AM CDT 150 mg dextrose 50% (D50) syringe 12.5 Gram 12.5 Gram, IV, SEE ADMIN INSTRUCTIONS, Starting on 11/07/19 at 0935, Until Thu11/08/19 at 1328, Routine dextrose 50% (D50) syringe 25 Gram 25 Gram, IV, SEE ADMIN INSTRUCTIONS, Starting on Thu11/07/19 at 0935, Until Thu11/08/19 at 1328, Routine enoxaparin (LOVENOX) injection 60 mg 60 mg (rounded from 55.55 mg = 0.5 mg/kg ? 111.1 kg), subCUT, EVERY 24 HOURS, First dose (after last reorder) on Thu11/01/19 at 1230, Until Discontinued, Routine, Indication: Prophylaxis of VTE Given 11/07/2019 12:27 PM CDT 60 mg Abdominal Tissue Given 11/06/2019 12:09 PM CDT 60 mg A bdominal Tissue Given 11/05/2019 2:54 PM CDT 60 mg Ab domen, Left Lower Quadrant glucagon HCL 1 mg/mL injection 1 mg 1 mg, IM, SEE ADMIN INSTRUCTIONS, Starting on Thu11/01/19 at 0606, Until Thu11/08/19 at 1328, Routine lactated ringers infusion IV, at 75 mL/hr, CONTINUOUS, Starting on Crystal 11/03/19 at 1145, Until Thu11/08/19 at 1328, Routine Rate Verify 11/07/2019 5:52 AM CDT 75 mL/ hr New Bag 11/07/2019 2:28 AM CDT 75 mL/hr Rate Change 11/07/2019 1:14 AM CDT 20 mL/hr naloxone (NARCAN) 0.4 mg/mL injection 0.1 mg 0.1 mg, IV, SEE ADMIN INSTRUCTIONS, Starting on Thu11/03/19 at 2307, Until Thu11/08/19 at 1328, Routine ondansetron (ZOFRAN ODT) tablet 4 mg 4 mg, Oral, EVERY 6 HOURS PRN, Starting on Thu11/01/19 at 0500, Until Thu11/08/19 at 1328, Nausea/Emesis, Routine Given 11/02/2019 5:18 PM CDT 4 mg Given 11/01/2019 5:42 PM CDT 4 mg Given 11/01/2019 10:52 AM CDT 4 mg ondansetron (ZOFRAN) 4 mg/2 mL injection 4 mg 4 mg, IV, EVERY 6 HOURS PRN, Starting on Thu11/01/19 at 0541, Until Thu11/08/19 at 1328, Nausea/Emesis, Routine Given 11/03/2019 10:11 PM CDT 4 mg Given 11/03/2019 8:00 AM CDT 4 mg Given 11/02/2019 8:23 AM CDT 4 mg oxyCODONE (ROXICODONE) tablet 5 mg 5 mg, Oral, EVERY 2 HOURS PRN, Starting on Thu11/07/19 at 0641, Until Thu11/08/19 at 1328, Pain (See admin instructions), Routine Given 11/08/2019 5:47 AM CDT 5 mg pantoprazole (PROTONIX) tablet 40 mg 40 mg, Oral, DAILY BEFORE BREAKFAST, First dose on Thu11/08/19 at 0745, Until Discontinued, Routine, Indication: Gastroesophageal reflux disease (GERD) Given 11/08/2019 9:22 AM CDT 40 mg polyethylene glycol (MIRALAX) packet 17 Gram 17 Gram, Oral, DAILY PRN, Starting on Thu11/03/19 at 0114, Until Thu11/08/19 at 1328, Constipation, Routine Given 11/03/2019 1:24 AM CDT 17 Grams sertraline (ZOLOFT) tablet 100 mg 100 mg, Oral, DAILY, First dose on Thu11/01/19 at 0900, Until Discontinued, Routine Given 11/07/2019 8:18 AM CDT 100 mg Given 11/02/2019 12:21 PM CDT 100 mg Given 11/01/2019 9:30 AM CDT 100 mg sodium chloride 0.9 % irrigation solution INTRA-PROCEDURE PRN, Starting on Thu11/03/19 at 0838, Until Thu11/03/19 at 1140, Routine, Intra-op Given 11/03/2019 8:38 AM CDT 2,000 mL Opera tive Site documented in this encounter Active and Recently Administered Medications Times are shown in CDT. Scheduled Medication Order 11/06/2019 11/07/2019 11/08/2019 buPROPion HCL (WELLBUTRIN XL) SR 24 hour tablet 150 mg 150 mg, Oral, DAILY EARLY, First dose on Thu11/01/19 at 0600, Until Discontinued, Routine 0600 (Refused - Provider: Sanjuana Evans, SATURNINO) 0818 (Given - Provider: Ashley Willard, SATURNINO - Comment: Pt wants to take with meal if given a diet) 0547 (Given - Provider: Nuvia Bone RN) dextrose 50% (D50) syringe 12.5 Gram 12.5 Gram, IV, SEE ADMIN INSTRUCTIONS, Starting on Thu11/07/19 at 0935, Until Thu11/08/19 at 1328, Routine dextrose 50% (D50) syringe 25 Gram 25 Gram, IV, SEE ADMIN INSTRUCTIONS, Starting on Thu11/07/19 at 0935, Until Thu11/08/19 at 1328, Routine enoxaparin (LOVENOX) injection 60 mg 60 mg (rounded from 55.55 mg = 0.5 mg/kg ? 111.1 kg), subCUT, EVERY 24 HOURS, First dose (after last reorder) on Thu11/01/19 at 1230, Until Discontinued, Routine, Indication: Prophylaxis of VTE 1209 (Given - Provider: GUILLERMO Guo) 1227 (Given - Provider: Ashley Willard, RN) glucagon HCL 1 mg/mL injection 1 mg 1 mg, IM, SEE ADMIN INSTRUCTIONS, Starting on Thu11/01/19 at 0606, Until Thu11/08/19 at 1328, Routine naloxone (NARCAN) 0.4 mg/mL injection 0.1 mg 0.1 mg, IV, SEE ADMIN INSTRUCTIONS, Starting on Crystal 5/14/20 at 2307, Until Thu11/08/19 at 1328, Routine pantoprazole (PROTONIX) injection 40 mg (CANCELED) 40 mg, IV, DAILY, First dose on Thu11/04/19 at 0900, Until Discontinued, Routine, Indication: Gastroesophageal reflux disease (GERD) 0834 (Given - Provider: GUILLERMO Guo) 0818 (Given - Provider: Ashley Willard RN) pantoprazole (PROTONIX) tablet 40 mg 40 mg, Oral, DAILY BEFORE BREAKFAST, First dose on Thu11/08/19 at 0745, Until Discontinued, Routine, Indication: Gastroesophageal reflux disease (GERD) 0922 (Given - Provider: GUILLERMO Pierre) sertraline (ZOLOFT) tablet 100 mg 100 mg, Oral, DAILY, First dose on Thu11/01/19 at 0900, Until Discontinued, Routine 0900 (Refused - Provider: GUILLERMO Guo) 0818 (Given - Provider: Ashley Willard RN) 0900 (Due) sugammadex (BRIDION) 100 mg/mL injection 444 mg 444 mg (rounded from 444.4 mg = 4 mg/kg ? 111.1 kg), IV, ONE TIME ONLY, 1 dose, On Thu11/03/19 at 0900, Stat, Intra-Procedure Continuous Medication Order 11/06/2019 11/07/2019 11/08/2019 lactated ringers infusion IV, at 75 mL/hr, CONTINUOUS, Starting on Thu11/03/19 at 1145, Until Thu11/08/19 at 1328, Routine 0556 (Paused - Provider: Sanjuana Evans RN)0631 (Restarted - Provider: Sanjuana Evans RN) 0114 (Rate Change - Provider: Sanjuana Evans RN)0134 (Paused - Provider: Sanjuana Evans RN)0228 (New Bag - Provider: Sanjuana Evans RN)0552 (Rate Verify - Provider: Sanjuana Evans RN) PRN Medication Order 11/06/2019 11/07/2019 11/08/2019 acetaminophen (TYLENOL) tablet 650 mg 650 mg, Oral, EVERY 6 HOURS PRN, Starting on Thu11/01/19 at 0500, Until Thu11/08/19 at 1328, Other (See Comment), See admin instructions, Routine mbasshbeuj-cmqiawb-pcmcgeahauffp (CEPACOL) lozenge 1 Each 1 Each, Mouth/Throat, EVERY 2 HOURS PRN, Starting on Crystal 11/03/19 at 1903, Until Thu11/08/19 at 1328, Cough, Sore Throat, Routine ondansetron (ZOFRAN ODT) tablet 4 mg 4 mg, Oral, EVERY 6 HOURS PRN, Starting on Thu11/01/19 at 0500, Until Thu11/08/19 at 1328, Nausea/Emesis, Routine ondansetron (ZOFRAN) 4 mg/2 mL injection 4 mg 4 mg, IV, EVERY 6 HOURS PRN, Starting on Thu11/01/19 at 0541, Until Thu11/08/19 at 1328, Nausea/Emesis, Routine oxyCODONE (ROXICODONE) tablet 5 mg 5 mg, Oral, EVERY 2 HOURS PRN, Starting on 11/07/19 at 0641, Until Thu11/08/19 at 1328, Pain (See admin instructions), Routine 0547 (Given - Provid er: Nuvia Bone RN) polyethylene glycol (MIRALAX) packet 17 Gram 17 Gram, Oral, DAILY PRN, Starting on Thu11/03/19 at 0114, Until Thu11/08/19 at 1328, Constipation, Routine documented in this encounter Additional Health Concerns Assessment Noted Time PHQ-9 Depression Total Score: 6 08/29/19 20 10:00 AM CDT documented as of this encounter Care Teams Personal Injury Legal Assistant Relationship Specialty Start Date End Date Francis Pereyra MD PCP - General Family Practice 02/08/18 12/08/21 documented as of this encounter
--- OUTSIDE RECORDS SUMMARY | 2024-06-08 20:22 | XMS_ITS | Encounter Summary ---
Author Organization [facility] Address [address] [place] [address] Care Team Providers Care Sprayer Leather Name Role Phone Francis Pereyra MD Primary Care Provider Unava ilable Reason for Visit * Reason Comments Cough Encounter Details Date Type Department Care Team (Late st Contact Info) Description 08/09/2019 9:00 AM CHIEF OPERATING OFFICER Office Visit [facility] at Work Game Closure [place] [address] [place] [address] Cheyenne Horton, PSYCHOLOGY DEPARTMENT CHAIR [address] [address] Upper respiratory tract infection, unspecified type (Primary Dx); Sore throat Social History Tobacco Use Types Packs/Day Years Used Date Smoking Tobacco: Former Cigarettes Q uit: 03/02/2016 Smokeless Tobacco: Never Alcohol Use Standard Drinks/Week Comments No 0 (1 standard drink = 0.6 oz pur e alcohol) Sex and Gender Information Value Date Recorded Sex Assigned at Not on file Gender Identity Not on file Sexual Orientation Not on file documented as of this encounter Last Filed Vital Signs Vital Sign Reading Time Taken Comments Blood Pressure 134/86 08/09/2019 9:08 AM CHIEF OPERATING OFFICER Pulse 114 08/09/2019 9:08 AM CHIEF OPERATING OFFICER Temperature 36.6 ??C (97.9 ??F) 08/09/2019 9:08 AM CS T Respiratory Rate 20 08/09/2019 9:08 AM CHIEF OPERATING OFFICER Oxygen Saturation 98% 08/09/2019 9:08 AM CHIEF OPERATING OFFICER Inhaled Oxygen Concentration - - Weight 113.4 kg (250 lb) 08/09/2019 9:08 AM CHIEF OPERATING OFFICER Height 165.1 cm (5' 5 ) 08/09/2019 9:08 AM CHIEF OPERATING OFFICER Body Mass Index 41.6 08/09/2019 9:08 AM CHIEF OPERATING OFFICER documented in this encounter Progress Notes * HortonCheyenne mancuso, PSYCHOLOGY DEPARTMENT CHAIR - 08/09/2019 9:26 AM CST HISTORY OF PRESENT ILLNESS Lis Phelan, a 34 y.o. female presents with a Chief Complaint of Cough Subjective Pt presents to clinic today with c/o sore throat. Pt states that symptoms started on Thursday. Associated symptoms include: fever, cough, and congestion. Symptoms started in her head/sinus, and have moved in to her chest and throat. Pt states that it feels like she swallowed a hand full of glass .Pt states that she has not been taking anything OTC. She has no sick contacts currently. She reports fever on her thermometer last night. Afebrile this morning in clinic. Pt did get a flu shot this year. Denies chills and body aches. The history is provided by the patient. Cough This is a new problem. The current episode started in the past 7 days. The problem has been gradually worsening. The cough is productive of sputum. Associated symptoms include a fever and a sore throat. She has tried nothing for the symptoms. REVIEW OF SYSTEMS Review of Systems Constitutional: Positive for fever. HENT: Positive for congestion and sore throat. Respiratory: Positive for cough and chest tightness. Cardiovascular: Negative. Objective PHYSICAL EXAM BP 134/86 (BP Location: Left arm, Patient Position (BP): Sitting, BP Cuff Size: Large Adult) Pulse (!) 114 Temp 97.9 ??F (36.6 ??C) (Tympanic) Resp 20 Ht 5' 5 (1.651 m) Wt 113.4 kg (250 lb) SpO2 98% BMI 41.60 kg/m?? Physical Exam Vitals signs and nursing note reviewed. Constitutional: Appearance: Normal appearance. HENT: Head: Normocephalic. Right Ear: Tympanic membrane, ear canal and external ear normal. Left Ear: Tympanic membrane, ear canal and external ear normal. Mouth/Throat: Mouth: Mucous membranes are moist. Eyes: Extraocular Movements: Extraocular movements intact. Neck: Musculoskeletal: Normal range of motion. Cardiovascular: Rate and Rhythm: Normal rate and regular rhythm. Heart sounds: Normal heart sounds. Pulmonary: Effort: Pulmonary effort is normal. Breath sounds: Normal breath sounds. Musculoskeletal: Normal range of motion. Skin: General: Skin is warm and dry. Neurological: Mental Status: She is alert and oriented to person, place, and time. Procedures Assessment ASSESSMENT and PLAN: ICD-10-CM ICD-9-CM 1. Upper respiratory tract infection, unspecified type Acute: Z-pack, take as directed, until gone. Tylenol/Motrin PRN pain or fever. Gargle with warm salt water. Rest, push fluids. RTC for persistent or worsening symptoms. J06.9 465.9 azithromycin (ZITHROMAX) 250 mg tablet 2. Sore throat J02.9 462 POC RAPID STREP A F OPERATING OFFICER documented in this encounter Plan of Treatment Upcoming Encounters Date Type Department Care Team (Late st Contact Info) Description 06/20/2024 9:30 AM CHIEF OPERATING OFFICER Office Visit [facility] Orthopedic Surgery at the [facility] [address] [place] [phone] [place] [address] [place] [address] 10/27/2024 2:45 PM CDT Office Visit [facility] Gastroenterology [facility] [address] [place] [address] Bebo Benites MD [address] [facility] [address] [place] [address] documented as of this encounter Procedures Procedure Name Priority Date/Time Associated Diagnosis Comments POC RAPID STREP A ANTIGEN Routine 08/09/2019 9:26 AM CHIEF OPERATING OFFICER Sore throat documented in this encounter Results * POC RAPID STREP A (08/09/2019 9:26 AM CHIEF OPERATING OFFICER) RAPID STREP Negative Negative [facility] [place] QC Pass Pass [facility] [place] KIT LOT NUMBER POC [id number] [facility] KIT EXPIRATION DATE POC [phone] [facility] Upper Respiratory SPECIMEN FROM THROAT / Unknown 08/09/2019 9:26 AM CHIEF OPERATING OFFICER Cheyenne Horton NP POINT OF CARE TEST ING Performing Organization Address City/State/[facility] Co de Phone Number [facility] CLIA# [id number] [address] [place] [address] documented in this encounter Visit Diagnoses Diagnosis Upper respiratory tract infection, unspecified type- Primary Sore throat Acute pharyngitis documented in this encounter Additional Health Concerns Assessment Noted Time PHQ-9 Depression Total Score: 6 07/08/19 19 9:00 AM CHIEF OPERATING OFFICER documented as of this encounter Care Teams Sprayer Leather Relationship Specialty Start Date End Date Francis Pereyra MD PCP - General Family Practice 02/08/18 12/08/21 documented as of this encounter
--- OUTSIDE RECORDS SUMMARY | 2024-06-08 20:22 | XMS_ITS | Encounter Summary ---
Author Organization [facility] Address [address] [place] [address] Care Team Providers Care Surgical Instrument Maker Name Role Phone Francis Pereyra MD Primary Care Provider Rishi georges Encounter Details Date Type Department Care Team (Latest Contact Info) Description 11/03/2019 12:43 PM CDT - 11/03/2019 11:59 PM CDT Hospital Encounter [facility] Out[facility] Services [address] [address] Gabbie Wheeler MD NO ADDRESS ON FILE Discharge Disposition: Home or Self Care Social [...] or suspected to have Coronavirus / COVID-19? Unable to assess 11/03/2019 12:41 PM CDT documented as of this encounter Medications at Time of Discharge Medication Sig Dispensed Refills Start Date End Date cetirizine (ZyrTEC) 10 mg tablet Take 10 mg by mouth daily. buPROPion HCL (Wellbutrin XL) 150 mg Extended Release 24 hour tabletIndications:Moder ate episode of recurrent major depressive disorder,Generalized anxiety disorder Take 1 Tablet (150 mg) by mouth daily fence post cutter. 30 Tablet 08/29/2019 01/06/2020 ALPRAZolam (XANAX) 0.25 [...] 05/20/2019 01/06/2020 documented as of this encounter Plan of Treatment Upcoming Encounters Date Type Department Care Team (Late st Contact Info) Description 06/20/2024 9:30 AM UNDERTAKER HELPER Office Visit [facility] Orthopedic Surgery at the [facility] [address] [facility] [address] [place] [phone] [place] [address] [place] [address] 10/27/2024 2:45 PM CDT Office Visit [facility] Gastroenterology [facility] [address] [place] [phone] Bebo Benites MD [address] [place] [address] documented as of this encounter Procedures Procedure Name Priority Date/Time Associated Diagnosis Comments HEPATITIS C RNA PCR, QUANTITATIVE Routine 11/03/2019 2:08 PM CDT Routine general medical examination at a [facility] care facility HEPATITIS B SURFACE ANTIGEN Routine 11/03/2019 2:08 PM CDT Routine general medical examination at a health care facility NEEDLESTICK EXPOSURE PANEL Routine 11/03/2019 1:57 PM CDT Routine general medical examination at a [facility] care facility documented in this encounter Results * HEPATITIS C RNA PCR, QUANTITATIVE (11/03/2019 2:08 PM CDT) HEPATITIS C RNA PCR NOT DETECTED Not detected 11/04/2019 11:41 AM CDT [facility] Blood Venipuncture / Unknown 11/03/2019 2:08 PM CDT 11/03/2019 2:08 PM CDT Narrative [facility] - 11/04/2019 11:41 AM CDT The quantification range of this assay is 10 to 10,000,000 IU/mL (1.00 log to 8.00 log IU/mL). ??Testing was performed using the Aptima HCV RNA Assay ([employer]) with the [employer] System. Gabbie Wheeler MD CHEMISTRY ORDERABL ES Performing Organization Address [facility]/ZIP Co de Phone Number [facility] CLIA# [id number] [address] [place] [address] * HEPATITIS B SURFACE ANTIGEN (11/03/2019 2:08 PM CDT) Pathologist [facility] HEPATITIS B SURFACE AG NON-REACTI VE Non-reacti ve 11/03/2019 2:53 PM CDT [facility] Blood Venipuncture / Unknown 11/03/2019 2:08 PM CDT 11/03/2019 2:08 PM CDT Gabbie Wheeler MD CHEMISTRY ORDERABL ES Performing Organization Address City/[facility]/ZIP Co de Phone Number [facility] CLIA# [id number] [address] [place] [address] * NEEDLESTICK EXPOSURE PANEL (11/03/2019 1:57 PM CDT) HIV-1 AND 2 ABS AND HIV-1 AG Non-reacti ve Non-reacti ve 11/03/2019 2:53 PM CDT [facility] Blood Venipuncture / Unknown 11/03/2019 1:57 PM CDT 11/03/2019 1:57 PM CDT Narrative [facility] - 11/03/2019 2:53 PM CDT Initial HIV testing was performed by [employer] on the [employer] e602 module. Values obtained with different assay methods cannot be used interchangeably. Non- Reactive results does not rule out HIV infection. If acute HIV-1 infection is suspected, submit plasma specimen for HIV-1 RNA quantification test (HIVQU). Gabbie Wheeler MD CHEMISTRY ORDERABL ES COM [facility] CLIA# [id number] [address] [place] [address] documented in this encounter Visit Diagnoses Diagnosis Routine general medical examination at a health care facility- Primary documented in this encounter Additional Health Concerns Assessment Noted Time PHQ-9 Depression Total Score: 6 08/29/19 20 10:00 AM CDT documented as of this encounter Care Teams Surgical Instrument Maker Relationship Specialty Start Date End Date Francis Pereyra MD PCP - General Family Practice 02/08/18 12/08/21 documented as of this encounter
--- OUTSIDE RECORDS SUMMARY | 2024-06-08 20:22 | XMS_ITS | Encounter Summary ---
Author Organization [facility] Address [address] [place] [address] Care Team Providers Care Spin Tank Tender Name Role Phone Francis Pereyra MD Primary Care Provider Unava ilable Reason for Visit * Auth/Cert Specialty Diagnoses / Procedures Referred By Contmaritza t Referred To Contact [facility] Surgical [address] [place] [address] Referral ID Status Reason Start Date Expiration Date Visits Re quested Visits Authorized [id number] 1 1 Encounter Details Date Type Department Care Team (Late st Contact Info) Description 11/03/2019 7:37 AM CDT Anesthesia Event [facility] Operating Room [address] [place] [address] Austin Colin MD [address] [place] [phone] Chalo Max AA-C [address] [place] [phone] Anesthesia Record Procedure Summary Procedure Name Responsible Anesthesiologist Anesthesia Start Time Anesthesia Stop Time OPEN CHOLECYSTECTOMY (Abdomen) Austin Colin MD 11/03/19 0737 11/03/19 1146 Events Date Time Event Comment 11/03/2019 0648 AN Equip Check Anesthesia eq uipment and materials checked in accordance with local policy. 0648 Quick Note 0653 0737 In Room This event disp lays the In Room time documented in the Surgical Log. Deleting this event will not remove it from the log but will remove it from the Grid and Graph timeline. 0737 An Start 0738 An Start Data 0750 Pre-Induction Immediate pre- induction anesthetic assessment performed. Vital signs as noted on graphic. 0751 An Induction 0753 An Intubation 0755 Anesthesia Ready 0822 Procedure Start This event d isplays the Procedure Start time documented in the Surgical Log. Deleting this event will not remove it from the log but will remove it from the Grid and Graph timeline. 1120 Quick Note Blood draw due to surgical needle stick (left radial draw due to poor venous access, attempt times 3) 1127 Procedure Stop This event di splays the Procedure Stop time documented in the Surgical Log. Deleting this event will not remove it from the log but will remove it from the Grid and Graph timeline. 1134 An Extubation Emergence unev entful Awake, spontaneous respirations. Adequate muscle strength demonstrated Adequate tidal volume. Orapharynx suctioned. Extubated with positive pressure ventilation. 1137 an stop data 1139 Out of Room This event disp lays the Out of Room time documented in the Surgical Log. Deleting this event will not remove it from the log but will remove it from the Grid and Graph timeline. 1146 An Stop 1146 Hand-off to Receiving [facility] pavan Post-Anesthetic transfer of care report elements to appropriate post-anesthesia recovery environment completed in accordance with procedure. 1146 Quick Note Transport from OR to recovery area or ICU, continuously present and monitoring ([id number]) 11/04/2019 0900 Follow-up Complete Meds Name Total propofol (DIPRIVAN) 10??mg/mL injection 300 mg propofol (DIPRIVAN) 10??mg/mL injection 1,501.52 mg lidocaine (XYLOCAINE) 2% injection 60 mg rocuronium (ZEMURON) 10 mg/mL 5 mL injec tion 90 mg midazolam PF (VERSED) 1 mg/mL injection 2 mg fentaNYL (SUBLIMAZE) PF 50??mcg/mL injec tion 100 mcg glycopyrrolate (ROBINUL) 0.4 mg/2 mL (0. 2 mg/mL) syringe 1 mg neostigmine (PROSTIGMINE) 1 mg/mL inject ion 5 mg dexamethasone (DECADRON) 4 mg/mL injecti on 4 mg famotidine (pf) (PEPCID) 20 mg/2 mL inje ction 20 mg esmolol (BREVIBLOC) 10??mg/mL injection 30 mg succinycholine (ANECTINE) 140 mg/7 mL iv syringe 120 mg ondansetron (ZOFRAN) 4 mg/2 mL injection 4 mg 4 mg diphenhydrAMINE (BENADRYL) 50 mg/mL inje ction 25 mg piperacillin-tazobactam (ZOS YN) 3.375 gram in dextrose (iso-osmotic) 50 mL IVPB 3.375 Gram hydromorPHONE (DILAUDID) 2 mg/mL injecti on 1 mg ketamine (KETALAR) 50??mg/mL injection 4 5 mg lactated ringers infusion 0 mL * Agents Name N2O Air Sevoflurane % Desflurane % Sevoflurane Desflurane O2 N2O Inspired N2O O2 * Blood No blood administrations on file. Lines, Drains, and Airways Type Details Placement Removal Peripheral IV Pre-Hospital Start: No; Orientation: Left; Location: Hand; Device: Angiocath; Gauge: 22 gauge; Patient Tolerance: tolerated well; Removal Indication: observed not present 11/01/19 0039 by Nyla Daley, SATURNINO 11/04/19 0000 by Venice Jerome RN Peripheral IV Pre-Hospital Start: No; Orientation: Left, Upper; Location: Arm; Gauge: 22 gauge; Insertion Attempts: 1; Patient Tolerance: tolerated well; Removal Indication: site symptomatic; Removal Interventions: direct pressure, catheter intact 11/02/19 0435 by Nuvia Bone RN 11/05/19 2100 by Sanjuana Evans RN NG/OG Tube Type: nasogastric; Location: left nostril 11/03/19 0000 by Delicia Ordonez, SATURNINO 11/06/19 1754 by Sachin Kaur GN Endotracheal Airway Type: ETT; Cuff Pressure: minimal leak technique, minimal occluding volume, cuff inflated; Secured: secured with tape; Verification: Auscultated bilateral breath sounds, Equal chest movement, Continuous waveform capnography 11/03/19 0648 by Chalo Max AA-C 11/03/19 1134 by Chalo Max AA-C Endotracheal Airway Type: Oral, ETT; Cuf f Pressure: cuff inflated; Size: 7; Site: mouth; Attempts: 1; FOV: I; cm: 22; Device: Video Laryngoscope; Blade: 3; Secured: secured with tape; Verification: Auscultated bilateral breath sounds, Equal chest movement, Continuous waveform capnography 11/03/19 0753 by Chalo Max AA-C 11/03/19 1134 by Chalo Max AA-C Indwelling Urethral Catheter 11/03/19; 0839; No; Indwelling double lumen catheter; 16 Fr; inserted; 11/05/19; 1151 11/03/19 0839 by Ariana Severino RN 11/05/19 1151 by Clemencia Dodson GN Drain Present on Admission : No; Tube Number: #1; Orientation: Right:; Location: abdomen; Type: round; Size (Fr): 19 Fr 11/03/19 1022 by Ariana Severino RN 11/08/19 0830 by Mary Shah RN Incision 11/03/19; 1124; surgical incision; Bilateral; abdomen; 11/08/19; 2322 11/03/19 1124 by Ariana Severino RN 11/08/19 2322 by PROVIDER, DISCHARGE PATIENT documented in this encounter Social History Tobacco [...] of this encounter OR Notes * Anesthesia Post-Op Follow-up Note - Zaid Carter PA-C - 11/04/2019 9:00 AM CDT 11/04/2019 9:00 AM Lis Phelan No apparent Anesthesia related complications Zaid Carter PA-C * Anesthesia Postprocedure Evaluation - Austin Colin MD - 11/03/2019 12:32 PM CDT Post Anesthesia Evaluation Vitals: Vitals Value Taken Time BP 124/84 11/03/2019 12:15 PM Temp 35.8 ??C 11/03/2019 11:40 AM Resp 11 11/03/2019 12:29 PM SpO2 96 % 11/03/2019 12:29 PM Pulse 74 11/03/2019 12:29 PM Heart Rate 74 bpm 11/03/2019 12:29 PM Vitals shown include unvalidated device data. Pain Rating: Pain Rating: Rest: 8 (11/03/19 1223) Pain Rating: Activity: 6 (11/01/19 1482) Anesthesia Post Evaluation Patient participation: patient was able to participate in the post op evaluation Level of consciousness: 1 = not alert but arousable by minor stimulation to obey, answer or respond Pain management: adequate Airway patency: patent Nausea or Vomiting: controlled Anesthetic complications: no Cardiovascular status: regular rate and rhythm Respiratory status: no respiratory symptoms Hydration status: well hydrated Comments: Phase I Postanesthesia Evaluation Including Modified Randi Score Patient seen and evaluated: Modified Randi Score: Score: 8 (11/03/19 114) COMMENTS: No apparent Anesthesia related complications RESPIRATORY FUNCTION: Respiration: able to breath and cough freely (11/03/19 114) (2=able to breathe and cough freely, 1=dyspnea, limited breathing or tachypnea, 0=apnea or mechanicventilator) O2 Saturation: needs O2 inhalation to maintain O2 saturation greater than 90% (11/03/19 1146) (2=able to maintain O2 saturation greater than 92% on room air, 1=needs O2 inhalation to maintain O2 saturation greater than 90%, 0=O2 saturation less than 90% even with O2 supplement) Resp: 14 (11/03/19 1215)SpO2: 93 % (11/03/19 1215) CARDIOVASCULAR FUNCTION: Heart Rate: 73 bpm (11/03/19 1215) BP: 124/84 (11/03/19 1215) Circulation: BP within 20% of preanesthetic level (11/03/19 1146) (2=BP within 20% of preanesthetic level, 1=BP within 20-49% of preanesthetic level, 0=BP within 50%of preanesthetic level) MENTAL STATUS, NEURO, ACTIVITY: PATIENT PARTICIPATION IN EVALUATION:yes Consciousness: arousable on calling (11/03/19 1146) (2=fully awake, 1=arousable on calling, 0=not responding) Activity: able to move 4 extremities voluntarily or on command (11/03/19 1146) (2=able to move 4 extremities voluntarily or on command, 1=able to move 2 extremities voluntarily or on command, 0=unable to move extremities voluntarily or on command) TEMPERATURE: Temp: (!) 35.8 ??C (11/03/19 1140) PAIN: Pain Rating: Rest: 8 (11/03/19 1223) Presence of Pain: denies pain/discomfort (11/03/19 0639) NAUSEA AND VOMITING: no nausea and no vomiting Signs/Symptoms: intermittent nausea (11/02/19 2132) POSTOPERATIVE HYDRATION: well hydrated Intake/Output Summary (Last 24 hours) at 11/03/19 1232 Last data filed at 11/03/19 0959 Gross per 24 hour Intake: 978.18 ml Output: 500 ml Net : 478.18 ml Austin Colin MD 11/03/2019 12:32 PM Austin Colin MD * Anesthesia Handoff - Chalo Max AA-Symone - 11/03/2019 11:46 AM CDT Post-Anesthetic transfer of care report elements [...] and acknowledgement of understanding. Vital Signs: BP: 137/72 (11/03/2019 11:40 AM) Pulse: 77 (11/03/2019 11:40 AM) Temp: (!) 35.8 ??C (11/03/2019 11:40 AM) Resp: 20 (11/03/2019 11:40 AM) SpO2: 96 % (11/03/2019 11:40 AM) 11:46 AM SERJIO Prasad * Anesthesia Preprocedure Evaluation - Austin Colin MD - 11/03/2019 6:51 AM CDT Relevant Problems No relevant active problems Anesthesia Evaluation Airway Mallampati: III TM distance: >3 FB Neck ROM: full Dental Comment: No loose dentition Pulmonary breath sounds clear to auscultation (+) asthma (denies recent flares/wheezing), (-) recent URISleep apnea: snores, never tested for sleep apnea, side sleeper. Cardiovascular Exercise tolerance: good (-) angina, murmur Rhythm: regular Rate: normal Neuro/Psych (+) psychiatric history Comments: Notes 2 of 10 pain in RUQ at present GI/Hepatic/Renal (+) GERD, Liver disease: biliary dilatation on imaging. Comments: 34 yo female hospitalized with acute calculous cholecystitis is brought to OR for laparoscopic cholecystectomy. Notes mild nausea at present History of eosinophilic esophagitis Endo/Other (+) diabetes mellitus (glucose 103 this am), arthritis Comments: BMI 40 PCR testing for SARS-COV2 still pending (swabbed yesterday) Abdominal Anesthesia History No history of anesthetic complications. Anesthesia Plan ASA Final: 3 General Intravenous induction Oral ETT airway maintenance NPO status > 8 hours Anesthetic plan and risks discussed with Patient. Plan discussed with Anesthesiologist Hotel Or Motel Receptionist. Post-op Pain Control Plan to use IV or IM medication and Per surgeon for post-op pain control. 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 [facility] [address] [facility] [address] [place] [address] Bebo Benites MD [address] [facility] [address] [place] [address] documented as of this encounter Visit Diagnoses Not on filedocumented in this encounter Administered Medications Inactive Administered Medications - up to 3 most recent administrations Medication Order MAR Action Action Date Dose Rate Site dexamethasone (DECADRON) injection INTRA-PROCEDURE PRN, Starting on Crystal 11/03/19 at 0800, Until Crystal 11/03/19 at 1147, Routine, Anesthesia Intra-op Given 11/03/2019 8:00 AM CDT 4 mg diphenhydrAMINE (BENADRYL) injection INTRA-PROCEDURE PRN, Starting on Crystal 11/03/19 at 0800, Until Crystal 11/03/19 at 1147, Routine, Anesthesia Intra-op Given 11/03/2019 8:00 AM CDT 25 mg esmoloL (BREVIBLOC) 100 mg/10 mL (10 mg/mL) injection INTRA-PROCEDURE PRN, Starting on Crystal 11/03/19 at 0752, Until Crystal 11/03/19 at 1147, Routine, Anesthesia Intra-op Given 11/03/2019 7:52 AM CDT 30 mg famotidine PF (PEPCID) 20 mg/2 mL injection INTRA-PROCEDURE PRN, Starting on Crystal 11/03/19 at 0800, Until Crystal 11/03/19 at 1147, Routine, Anesthesia Intra-op Given 11/03/2019 8:00 AM CDT 20 mg fentaNYL PF (SUBLIMAZE) 50 mcg/mL injection INTRA-PROCEDURE PRN, Starting on Crystal 11/03/19 at 0817, Until Crystal 11/03/19 at 1147, Routine, Anesthesia Intra-op Given 11/03/2019 8:17 AM CDT 100 mcg glycopyrrolate (ROBINUL) injection INTRA-PROCEDURE PRN, Starting on Crystal 11/03/19 at 0938, Until Crystal 11/03/19 at 1147, Routine, Anesthesia Intra-op Given 11/03/2019 11:04 AM CDT 0.8 mg Given 11/03/2019 9:38 AM CDT 0.2 mg HYDROmorphone (DILAUDID) 2 mg/mL injection INTRA-PROCEDURE PRN, Starting on Crystal 11/03/19 at 0838, Until Crystal 11/03/19 at 1147, Routine, Anesthesia Intra-op Given 11/03/2019 11:45 AM CDT 0.4 mg Given 11/03/2019 9:33 AM CDT 0.3 mg Given 11/03/2019 8:38 AM CDT 0.3 mg ketamine (KETALAR) 50 mg/mL injection INTRA-PROCEDURE PRN, Starting on Crystal 11/03/19 at 0927, Until Crystal 11/03/19 at 1147, Routine, Anesthesia Intra-op Given 11/03/2019 9:27 AM CDT 15 mg Given 11/03/2019 7:55 AM CDT 30 mg lactated ringers infusion IV, at 150 mL/hr, PRE-PROCEDURE CONTINUOUS, Starting on Crystal 11/03/19 at 0645, Until Crystal 11/03/19 at 1139, Routine Continue from Pre-Op 11/03/2019 7:37 AM CDT New Bag 11/03/2019 6:45 AM CDT 150 mL/hr lidocaine 2 % (XYLOCAINE) injection INTRA-PROCEDURE PRN, Starting on Crystal 11/03/19 at 0751, Until Crystal 11/03/19 at 1147, Routine, Anesthesia Intra-op Given 11/03/2019 7:51 AM CDT 60 mg midazolam (PF) (VERSED) injection INTRA-PROCEDURE PRN, Starting on Crystal 11/03/19 at 0737, Until Crystal 11/03/19 at 1147, Routine, Anesthesia Intra-op Given 11/03/2019 7:37 AM CDT 2 mg neostigmine (PROSTIGIMINE) 5 mg/5 mL (1 mg/mL) injection INTRA-PROCEDURE PRN, Starting on Crystal 11/03/19 at 1104, Until Crystal 11/03/19 at 1147, Routine, Anesthesia Intra-op Given 11/03/2019 11:04 AM CDT 5 mg ondansetron (ZOFRAN) 4 mg/2 mL injection 4 mg 4 mg, IV, EVERY 6 HOURS PRN, Starting on Thu11/01/19 at 0541, Until Thu11/08/19 at 1328, Nausea/Emesis, Routine Given 11/03/2019 10:11 PM CDT 4 mg Given 11/03/2019 8:00 AM CDT 4 mg Given 11/02/2019 8:23 AM CDT 4 mg piperacillin-tazobactam (ZOSYN) 3.375 gram in dextrose (iso-osmotic) 50 mL IVPB 3.375 Gram, IV, EVERY 6 HOURS, 13 doses, First dose on Thu11/01/19 at 0300, Last dose on Thu11/04/19 at 1000, Routine, Antibiotic Indication: Intra-abdominal infection / Fecal Contamination, Is sepsis suspected? No New Bag 11/04/2019 10:00 AM CDT 3.375 Grams 100 mL/hr New Bag 11/04/2019 5:26 AM CDT 3.375 Grams 100 mL/hr New Bag 11/03/2019 10:07 PM CDT 3.375 Grams 100 mL/hr propofoL (DIPRIVAN) injection INTRA-PROCEDURE PRN, Starting on Crystal 11/03/19 at 0751, Until Crystal 11/03/19 at 1147, Anesthesia Intra-op Given 11/03/2019 7:51 AM CDT 300 mg propofoL (DIPRIVAN) injection INTRA-PROCEDURE CONTINUOUS PRN, Starting on Crystal 11/03/19 at 0755, Until Crystal 11/03/19 at 1147, Anesthesia Intra-op Rate Change 11/03/2019 10:50 AM CDT 40 mcg/kg/min 26.66 mL/hr Rate Change 11/03/2019 8:05 AM CDT 75 mcg/kg/min 50 mL/hr New Bag 11/03/2019 7:55 AM CDT 50 mcg/kg/min 33.33 mL/h r rocuronium injection INTRA-PROCEDURE PRN, Starting on Crystal 11/03/19 at 0756, Until Crystal 11/03/19 at 1147, Routine, Anesthesia Intra-op Given 11/03/2019 9:59 AM CDT 10 mg Given 11/03/2019 9:33 AM CDT 10 mg Given 11/03/2019 9:02 AM CDT 10 mg succinylcholine Chloride (ANECTINE) 140 mg/7 mL (20 mg/mL) injection INTRA-PROCEDURE PRN, Starting on Crystal 11/03/19 at 0751, Until Crystal 11/03/19 at 1147, Routine, Anesthesia Intra-op Given 11/03/2019 7:51 AM CDT 120 mg documented in this encounter Additional Health Concerns Assessment Noted Time PHQ-9 Depression Total Score: 6 08/29/19 20 10:00 AM CDT documented as of this encounter Care Teams Spin Tank Tender Relationship Specialty Start Date End Date Francis Pereyra MD PCP - General Family Practice 02/08/18 12/08/21 documented as of this encounter
--- OUTSIDE RECORDS SUMMARY | 2024-06-08 20:22 | XMS_ITS | Encounter Summary ---
Author Organization [facility] Address [address] [place] [address] Care Team Providers Care Remote Control Assembler Name Role Phone Francis Pereyra MD Primary Care Provider Unava ilable Reason for Visit * Reason Comments Cyst Encounter Details Date Type Department Care Team (Late st Contact Info) Description 07/01/2019 7:30 AM TREE DEADENER Office Visit [facility] [address] [place] [address] Tessa Su, MICHAEL [address] [facility] [address] [place] [address] Acute suppurative otitis media of left ear without spontaneous rupture of tympanic membrane, recurrence not specified (Primary Dx) Social History Tobacco Use Types [...] Sign Reading Time Taken Comments Blood Pressure 126/88 07/01/2019 8:00 AM TREE DEADENER Pulse 99 07/01/2019 8:00 AM TREE DEADENER Temperature 36.6 ??C (97.9 ??F) 07/01/2019 8:00 AM CS T Respiratory Rate 18 07/01/2019 8:00 AM TREE DEADENER Oxygen Saturation 97% 07/01/2019 8:00 AM TREE DEADENER Inhaled Oxygen Concentration - - Weight 113.4 kg (250 lb) 07/01/2019 8:00 AM TREE DEADENER Height 165.1 cm (5' 5 ) 07/01/2019 8:00 AM TREE DEADENER Body Mass Index 41.6 07/01/2019 8:00 AM TREE DEADENER documented in this encounter Progress Notes * Tessa Su, MEDICARE BILLER - 07/05/2019 1:01 PM CST HISTORY OF PRESENT ILLNESS Lis Phelan is a 34 y.o. female who presents for Chief Complaint Patient presents with ??? Cyst States she has a cyst that comes and goes above her left ear. I have seen her in the past for this,treated with Keflex and it resolved. States it then came back, is tender and then resolves again onit's own. Denies inner ear pain but has fullness, feels like it is draining. No fevers. Denies fevers. Awaiting to have lap pipe if the treatment of her eosinophilic esophagitis is not successful with Omeprazole. Past Medical History: Diagnosis Date ??? Arthritis ??? Asthma ??? Depression ??? Diabetes mellitus ??? Difficult intravenous access VERY hard IV stick use requests ultrasound ??? GERD (gastroesophageal reflux disease) ??? Headache ??? History of shingles ??? HTN (hypertension) ??? Hyperlipidemia Current Outpatient Medications Medication Sig Dispense Refill ??? amoxicillin-clavulanate (AUGMENTIN) 875-125 mg tablet Take 1 Tablet by mouth every 12 hours for10 days. 20 Tablet 0 ??? metFORMIN (GLUCOPHAGE) 500 mg tablet 2 times daily. ??? pantoprazole (PROTONIX) 40 mg Tablet, Delayed Release (E.C.) Take 1 Tablet (40 mg) by mouth daily. 60 Tablet 2 ??? albuterol HFA 90 mcg inhaler Take 1-2 Puffs by inhalation every 4 hours as needed for Shortnessof Breath or Wheezing. 6.7 Gram 3 ??? etonogestrel (IMPLANON SDRM) by Subdermal route. No current facility-administered medications for this visit. Allergies Allergen Reactions ??? Chantix [Varenicline] Anaphylaxis ??? Metronidazole Nausea and Vomiting Other reaction(s): Vomiting ??? Demerol [Meperidine] Swelling ??? Tramadol Hives BP 126/88 (BP Location: Left arm, Patient Position (BP): Sitting, BP Cuff Size: Large Adult) Pulse 99 Temp 97.9 ??F (36.6 ??C) (Tympanic) Resp 18 Ht 5' 5 (1.651 m) Wt 113.4 kg (250 lb) SpO2 97% BMI 41.60 kg/m?? MEDICAL RECORD UPDATE Past Medical History: Diagnosis Date ??? Arthritis ??? Asthma ??? Depression ??? Diabetes mellitus ??? Difficult intravenous access VERY hard IV stick use requests ultrasound ??? GERD (gastroesophageal reflux disease) ??? Headache ??? History of shingles ??? HTN (hypertension) ??? Hyperlipidemia Past Surgical History: Procedure Laterality Date ??? HX GASTROSCHISIS CLOSURE ??? HX SURGICAL OTHER 04/2004 adhesion removed ??? AR ESOPHAGOGASTRODUODENOSCOPY TRANSORAL DIAGNOSTIC N/A 05/17/2019 ESOPHAGOGASTRODUODENOSCOPY performed by Jena Cerda MD at [facility] Family History Problem Relation Name [...] reviewed and updated in computerized patient record. [address] Care Providers: Patient Care Team: Francis Pereyra MD as PCP - General (Family Practice) No Patient Care Coordination Note on file. Vital signs/Tobacco use BP 126/88 (BP Location: Left arm, Patient Position (BP): Sitting, BP Cuff Size: Large Adult) Pulse 99 Temp 97.9 ??F (36.6 ??C) (Tympanic) Resp 18 Ht 5' 5 (1.651 m) Wt 113.4 kg (250 lb) SpO2 97% BMI 41.60 kg/m?? Blood Pressure BP Readings from Last 3 Encounters: 07/01/19 126/88 05/30/19 (!) 140/112 05/17/19 136/88 BMI POC (QM) Body mass index is 41.6 kg/m??. Normal BMI range: 18 & older: > or = 18.5 and < 25 Abnormal high BMI: Patient counseled on lifestyle modifications including weight loss and daily exercise. The 10-year CVD risk score (Syeda, et al., 2008) is: 4.2% Values used to calculate the score: Age: 34 years Sex: Female Diabetic: Yes Tobacco smoker: No Systolic Blood Pressure: 126 mmHg Is BP treated: No HDL Cholesterol: 36 mg/dL Total Cholesterol: 193 mg/dL Consider Statins if 10 year risk >7.5-10% Tobacco Use (QM) reports that she quit smoking about 3 years ago. She has never used smokeless tobacco. She is not a tobacco user. EXAMINATION REVIEW OF SYSTEMS Review of Systems Constitutional: Negative for chills and fever. HENT: Negative for congestion, ear pain, sinus pain and sore throat. Respiratory: Negative for cough, shortness of breath and wheezing. Cardiovascular: Negative. Gastrointestinal: Negative for nausea and vomiting. Musculoskeletal: Negative for myalgias. Skin: Lump above her left ear Neurological: Negative for dizziness and headaches. Psychiatric/Behavioral: Negative for depression. The patient is nervous/anxious. Objective PHYSICAL EXAM Physical Exam Constitutional: Appearance: She is well-developed. HENT: Head: Normocephalic and atraumatic. Right Ear: Tympanic membrane and ear canal normal. Left Ear: Ear canal normal. Tympanic membrane is erythematous and bulging. Ears: Comments: Distal TM erythema noted with serous effusion Nose: Nose normal. Mouth/Throat: Lips: Marina. Mouth: Mucous membranes are moist. Eyes: Conjunctiva/sclera: Conjunctivae normal. Cardiovascular: Rate and Rhythm: Normal rate and regular rhythm. Heart sounds: Normal heart sounds, S1 normal and S2 normal. No murmur. No friction rub. No gallop. Pulmonary: Effort: Pulmonary effort is normal. No respiratory distress. Breath sounds: Normal breath sounds. No wheezing or rales. Lymphadenopathy: Head: Right side of head: No submental, submandibular, tonsillar, preauricular, posterior auricular or occipital adenopathy. Left side of head: No submental, submandibular, tonsillar, preauricular, posterior auricular or occipital adenopathy. Cervical: No cervical adenopathy. Right cervical: No superficial cervical adenopathy. Left cervical: No superficial cervical adenopathy. Upper Body: Right upper body: No supraclavicular adenopathy. Left upper body: No supraclavicular adenopathy. Skin: General: Skin is warm and dry. Neurological: Mental Status: She is alert and oriented to person, place, and time. No results found for any visits on 07/01/19 (from the past 24 hour(s)). ASSESSMENT and PLAN: Lis was seen today for cyst. Diagnoses and all orders for this visit: Acute suppurative otitis media of left ear without spontaneous rupture of tympanic membrane, recurrence not specified - amoxicillin-clavulanate (AUGMENTIN) 875-125 mg tablet; Take 1 Tablet by mouth every 12 hours for 10 days. Other orders - Cancel: chlorhexidine gluconate (HIBICLENS) 4 % Liquid; Apply in shower from the neck to feet, avoid genitals, face and head. Wash for 15 sec then rinse off and repeat daily x 7 days. - Cancel: mupirocin (BACTROBAN) 2 % nasal ointment; Apply twice a day inside nares BID for 7 days - metFORMIN (GLUCOPHAGE) 500 mg tablet; 2 times daily. OM with possible intermittent lymph node enlargement. Augmentin. Return to show me lymph node when it enlarges again. It is not present on exam today. DEADENER documented in this encounter Plan of Treatment Upcoming Encounters Date Type Department Care Team (Late st Contact Info) Description 06/20/2024 9:30 AM TREE DEADENER Office Visit [facility] Orth[facility] Surgery at the [facility] [address] [place] [address] [place] [address] [place] [address] 10/27/2024 2:45 PM CDT Office Visit [facility] G[facility] [address] [place] [address] Bebo Benites MD [address] [address] documented as of this encounter Visit Diagnoses Diagnosis Acute suppurative otitis media of left ear without spontaneous rupture of tympanic membrane, recurrence not specified- Primary documented in this encounter Additional Health Concerns Assessment Noted Time PHQ-9 Depression Total Score: 6 07/08/19 19 9:00 AM TREE DEADENER documented as of this encounter Care Teams Remote Control Assembler Relationship Specialty Start Date End Date Francis Pereyra MD PCP - General Family Practice 02/08/18 12/08/21 documented as of this encounter
--- OUTSIDE RECORDS SUMMARY | 2024-06-08 20:22 | XMS_ITS | Encounter Summary ---
Author Organization [facility] Address [address] [place] [address] Care Team Providers Care Esthetics Instructor Name Role Phone Francis Pereyra MD Primary Care Provider Unava ilable Reason for Referral * Eval and Treat (2-4 Days) - Closed Specialty Diagnoses / Procedures Referred By Contac t Referred To Contact Surgery / General Surgery Diagnoses Abnormal findings [place] [address] [facility] [address] [place] [address] [place] [id number] [place] [address] Referral ID Status Reason Start Date Expiration Date V isits Requested Visits Authorized [id number] Closed CRS To Schedule (STL) 05/25/2019 05/24/2020 1 1 GER OF PATIENT Encounter Details Date Type Department Care Team (Late st Contact Info) Description 05/25/2019 Orders Only [facility] [employer] [address] [place] [address] [place] [address] [facility] [address] [place] [address] Abnormal findings on diagnostic imaging of gall bladder (Primary Dx) Social History Tobacco Use Types [...] Contact Info) Description 06/20/2024 9:30 AM MANAGER OF PATIENT Office Visit [facility] Orthopedic Surgery at the [facility] [address] [facility] [place] [address] [place] [address] [place] [address] 10/27/2024 2:45 PM CDT Office Visit [facility] Gastroenterology [facility] [address] [facility] [address] [place] [address] Bebo Benites MD [address] [facility] [address] [place] [address] Scheduled Referrals Name Type Priority Associated Diagnoses Orde r Schedule AMB REFERRAL TO GENERAL SURGERY Outpatient Referral Routine Abnormal findings on diagnostic imaging of gall bladder Ordered: 05/25/2019 documented as of this encounter Visit Diagnoses Diagnosis Abnormal findings on diagnostic imaging of gall bladder- Primary Nonspecific (abnormal) findings on radiological and other examination of biliary tract documented in this encounter Additional Health Concerns Assessment Noted Time PHQ-9 Depression Total Score: 6 07/08/19 19 9:00 AM MANAGER OF PATIENT documented as of this encounter Care Teams Esthetics Instructor Relationship Specialty Start Date End Date Francis Pereyra MD PCP - General Family Practice 02/08/18 12/08/21 documented as of this encounter
--- OUTSIDE RECORDS SUMMARY | 2024-06-08 20:22 | XMS_ITS | Encounter Summary ---
Author Organization [facility] Address [address] [place] [address] Care Team Providers Care Churn Driller Helper Name Role Phone Francis Pereyra MD Primary Care Provider Rishi georges Encounter Details Date Type Department Care Team (Late st Contact Info) Description 07/08/2019 Orders Only [facility] [employer] [place] [address] [place] [address] [place] [address] [facility] [address] [place] [address] Social History Tobacco Use Types [...] as of this encounter Progress Notes * Tessa Su NP - 07/08/2019 8:56 AM CST Pt came by for ear check on 07/05/19 when the nodule above her left ear reappeared. Able to palpate a tender about 1 cm lymph node superior preauricular location. Continue Augmentin, monitor. Follow up as planned if not resolved in 14 post antibiotic. RVISOR LOOPING documented in this encounter Plan of Treatment Upcoming Encounters Date Type Department Care Team (Late st Contact Info) Description 06/20/2024 9:30 AM SUPERVISOR LOOPING Office Visit [facility] [address] [facility] [address] [place] [address] [place] [address] [place] [address] 10/27/2024 2:45 PM CDT Office Visit [facility] G[facility]ology [facility] [address] [facility] [address] [place] [address] Bebo Benites MD [address] [facility] [address] [place] [address] documented as of this encounter Visit Diagnoses Not on filedocumented in this encounter Additional Health Concerns Assessment Noted Time PHQ-9 Depression Total Score: 6 07/08/19 19 9:00 AM SUPERVISOR LOOPING documented as of this encounter Care Teams Churn Driller Helper Relationship Specialty Start Date End Date Francis Pereyra MD PCP - General Family Practice 02/08/18 12/08/21 documented as of this encounter
--- OUTSIDE RECORDS SUMMARY | 2024-06-08 20:22 | XMS_ITS | Encounter Summary ---
Author Organization [id number] [facility] Address [address] [place] [address] Care Team Providers Care Manager Secondary Name Role Phone Francis Pereyra MD Primary Care Provider Unava ilable Reason for Visit * Auth/Cert Specialty Diagnoses / Procedures Referred By Contmaritza t Referred To Contact Multi Specialty Diagnoses Dysphagia Procedures ESOPHAGOGASTRODUODENOSCOPY [facility] [address] [place] [address] Referral ID Status Reason Start Date Expiration Date Visits Re quested Visits Authorized [id number] 1 1 Encounter Details Date Type Department Care Team (Latest Contact Info) Description 05/17/2019 12:45 PM CORPORATE RECEPTIONIST - 05/17/2019 2:36 PM [facility] Hospital [facility] [email or web address] [email or web address] [address] Jena Cerda MD [address] [facility] [address] [place] [address] Dysphagia Discharge Disposition: Home or Self Care Social [...] Sign Reading Time Taken Comments Blood Pressure 136/88 05/17/2019 2:21 PM CORPORATE RECEPTIONIST Pulse 85 05/17/2019 2:21 PM CORPORATE RECEPTIONIST Temperature 35.9 ??C (96.6 ??F) 05/17/2019 2:04 PM CS T Respiratory Rate 18 05/17/2019 2:21 PM CORPORATE RECEPTIONIST Oxygen Saturation 94% 05/17/2019 2:21 PM CORPORATE RECEPTIONIST Inhaled Oxygen Concentration - - Weight 111.1 kg (245 lb) 05/17/2019 12:56 PM CORPORATE RECEPTIONIST Height 167 cm (5' 5.75 ) 05/17/2019 12:56 PM CORPORATE RECEPTIONIST Body Mass Index 39.85 05/17/2019 12:56 PM CORPORATE RECEPTIONIST documented in this encounter Discharge Instructions * Discharge Instructions* Jena Cerda MD - 05/17/2019 1:23 PM CORPORATE RECEPTIONIST Instructions after EGD After an upper endoscopy you may have a minor sore throat. A throat lozenge or Tylenol will help torelieve any discomfort. DO NOT drink alcohol until tomorrow. DO NOT drive, operate machinery, make critical decisions until tomorrow. Limit activities that require coordination or balance for 24 hours. Resume your previous diet unless otherwise instructed. Resume your previous medications unless otherwise instructed. Notify your physician if you develop any of the following: ??? Severe pain ??? Fever of 101 degrees F ??? Redness or soreness at the IV site ??? Large amount of bleeding, passing large blood clots, or black tarry stools If tissue samples were taken during the procedure, you will notified by phone or mail with the results. If you have not been notified within two weeks, please call the office. 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 30 Capsule 05/12/2019 05/22/2019 esomeprazole (NexIUM) 20 mg Capsule, Delayed Release(E.C.)Indicatio ns:Epigastric pain,RUQ pain Take 1 Capsule (20 mg) by mouth daily before breakfast. 30 Capsule 05/09/2019 05/20/2019 albuterol HFA 90 mcg inhalerIndications:Mil d intermittent asthma without complication Take 1-2 Puffs by inhalation every 4 hours as needed for Shortness of Breath or Wheezing. 6.7 Gram 3 07/29/2018 07/19/2019 documented as of this encounter H&P Notes * Jena Cerda MD - 05/17/2019 1:19 PM CST This is a 34 y.o. female who presents for upper endoscopy Pre-procedure indication: Dysphagia Important co-morbidity: no Dysphagia: yes Acid suppression: ppi Diarrhea: no Anti-coagulants/Anti-platelet agents: no ASA Per Anesthesia Examination: Wt Readings from Last 3 Encounters: 05/17/19 111.1 kg (245 lb) 05/12/19 113.9 kg (251 lb) 05/09/19 113.4 kg (250 lb) Temp Readings from Last 3 Encounters: 05/17/19 97.3 ??F (36.3 ??C) (Temporal) 05/12/19 99.2 ??F (37.3 ??C) (Tympanic) 05/09/19 98.7 ??F (37.1 ??C) (Tympanic) BP Readings from Last 3 Encounters: 05/17/19 (!) 137/98 05/12/19 (!) 160/100 05/09/19 (!) 156/92 Pulse Readings from Last 3 Encounters: 05/17/19 95 05/12/19 (!) 116 05/09/19 (!) 106 Mental status: A&O x 3 Cardiac: regular rate and rhythm Lung: normal respiratory effort Abdomen: soft, nontender Consent: yes Prior to Admission Medications Prescriptions Last Dose Informant Patient Reported? Taking? albuterol HFA 90 mcg inhaler No No Sig: Take 1-2 Puffs by inhalation every 4 hours as needed for Shortness of Breath or Wheezing. cephALEXin (KEFLEX) 500 mg capsule 05/17/2019 at Unknown time No Yes Sig: Take 1 Capsule (500 mg) by mouth 3 times daily for 10 days. esomeprazole (NexIUM) 20 mg Capsule, Delayed Release(E.C.) Past Week at Unknown time No Yes Sig: Take 1 Capsule (20 mg) by mouth daily before breakfast. etonogestrel (IMPLANON SDRM) Yes No Sig: by Subdermal route. Facility-Administered Medications: None Allergies Allergen Reactions ??? Chantix [Varenicline] Anaphylaxis ??? Metronidazole Nausea and Vomiting Other reaction(s): Vomiting ??? Demerol [Meperidine] Swelling ??? Tramadol Hives Past Medical History: Diagnosis Date ??? Arthritis ??? Asthma ??? Depression ??? Diabetes mellitus ??? Difficult intravenous access VERY hard IV stick use requests ultrasound ??? GERD (gastroesophageal reflux disease) ??? Headache ??? History of shingles ??? HTN (hypertension) ??? Hyperlipidemia Informed Consent: The patient was informed of the indications for the procedure, the risks/benefits and the alternatives, and agreed to proceed. In particular, the patient was informed of the risk of perforation/, medication side effect, infection, a missed lesion, or incomplete examination. In the case of dilat ation, the patient was informed of the risk of perforation (1 to 5%). There was nothing on history or physical examination precluding the procedure. ORATE RECEPTIONIST documented in this encounter Procedure Notes * Jena Cerda MD - 05/17/2019 2:02 PM CSTAssociated Order(s): UPPER ENDOSCOPY REPORT [facility] Endoscopy Patient Name: Lis Phelan Procedure Date: 05/17/2019 Date of : 1985 Admit Type: Outpatient Attending MD: Jena Cerda , Procedure: Upper GI endoscopy Indications: Dysphagia Providers: Jena Cerda Referring MD: Francis Pereyra MD Medicines: Monitored Anesthesia Care Complications: No immediate complications. Procedure: Informed consent [...] minimal. Findings: Mucosal changes including longitudinal furrows and congestion (edema) were found in the middle third of the esophagus and in the lower third of the esophagus. Biopsies were obtained from the proximal and distal esophagus with cold forceps for histology of suspected eosinophilic esophagitis. A hiatal hernia was found. The proximal extent of the gastric folds (end of tubular esophagus) was 32 cm from the incisors. The hiatal narrowing was 36 cm from the incisors. The Z-line was 33 cm from the incisors. The entire examined stomach was normal. The examined duodenum was normal. Impression: - Esophageal mucosal changes suspicious for eosinophilic esophagitis. Biopsied. - Hiatal hernia. - Normal stomach. - Normal examined duodenum. Recommendation: - Discharge patient to home (with escort). - [...] Return to my office in 4 weeks. Jena Cerda, 05/17/2019 2:02:37 PM This report has been signed electronically. Number of Addenda: [address] ; [place] [address] ORATE RECEPTIONIST * Fabiola Gibbons RN - 05/16/2019 1:16 PM CST [facility] Nurse Assessment Patient: Lis Phelan : 1985 Endoscopist: Surgeon(s): Jena Cerda MD Upcoming Procedure: Procedure to be Performed: Procedure(s): ESOPHAGOGASTRODUODENOSCOPY Procedure Date/Time: 05/17/2019 at 1400 Diagnosis/Indication for procedure: Pre-Op Diagnosis Codes: * Dysphagia [R13.10] Location: [facility] GI LAB Referring Physician: Francis Pereyra Patient's BMI: Body mass index is 40.66 kg/m??. Is patient a candidate for offsite location?no/high BMI/asthma/other diagnoses that patient is not currently taking meds for Medications Type of prep given: pick list of preps: {EGD Anticoagulants: no none Relevant prior procedure/pathology: Procedure:n/aPhysician: n/a Date: n/a Location: na/ Recommended to follow up in: n/a Were Polyps Removed? (If yes please document polyp pathology) no ORATE RECEPTIONIST documented in this encounter OR Notes * Mi-OP - Fabiola Gibbons RN - 05/16/2019 1:16 PM CST Routine Pre-Anesthesia Protocol for GI Lab Procedures ??[facility] Approved by: [facility] - Medical Executive Committee Approval Date: 09/13/2018 ORDERS ARE ENTERED ???PER PROTOCOL?? Enter the protocol in the patient???s electronic health record using Applits: .anestprotocolgilab NURSING ORDERS: Monitoring: o Obtain and record vital signs o Continuous vital signs (Non-invasive blood pressure, pulse oximetry and cardiac monitoring) for all inpatients and all patients currently taking beta-blockers o Place #20 gauge IV in non-dominant, non-operative or not otherwise excluded upper extremity o Contact responsible anesthesiologist if recommending use of a #22 gauge IV o See medication section for local Anesthetic to use to initiate IV LABORATORY ORDERS: Screening Protocol: o Urine bHCG (serum if necessary) Female of menses, or age > 12 y/o Point of Care Testing: FOR PATIENTS WITH A HISTORY OF DIABETES, RECEIVING INSULIN, OR EXHIBITING SIGNS AND SYMPTOMS OF HYPOGLYCEMIA. o POC glucose on initial assessment o POC glucose every 4 hours if NPO o POC glucose within 30 minutes of discharge or transfer to another unit (the time based intra-procedure POC check may be deferred during short procedures at the discretion of the provider) o POC for any patient exhibiting signs and symptoms of hypoglycemia o If POC Glucose results are critical, do not delay treatment. If appropriate, may confirm POC with: Nursing Only [id number] (this lab can be obtained at no cost to the patient when confirming a criticalhigh or critical low POC glucose MEDICATION ORDERS: o Local Anesthetic to use to initiate IV line: Lidocaine 2% 0.3mL intradermal ONE TIME to numb areaof IV catheter insertion PRN. IV Fluid - Adult patients (age 18 years or greater): o Lactated ringer???s solution to infuse at 125mL/hr, may discontinue upon discharge from procedurearea o Patient specific modification as indicated: ? ? If patient is found to have a serum creatinine >2 or history of renal failure, RN may changefluid to NS at 10ml/hr Contact provider to consider dextrose containing fluids for: o NPO patients who have received PO or injectable antihyperglycemic agents and glucose is less [id number] mg/dl o NPO patients who have NOT received PO or injectable antiHYPERglycemic agents and POC glucose is less than 70 mg/dL. o When receiving report on an inpatient, confirm if patient is receiving dextrose containing fluidsto prevent hypoglycemia. Communicate with the anesthesiologist and request glucose containing fluids be continued or added to intraoperative Fluids. o Any time a patient???s enteral or parenteral nutrition is interrupted for longer than four hours and POC glucose or serum glucose is less than 100 mg/dL contact provider for dextrose containing fluids o Notify provider for any POC glucose or serum glucose less than 70 mg/dL. RESCUE MEDICATION ORDERS - entered by the Pharmacist offshore wind turbine technician RESCUE ORDERS - entered by the Pharmacist or the sap manager Orders Patient has IV access and UNCONCIOUS, UNWILLING to swallow or NPO Glucose Level Treatment 40-69 mg/dL Dextrose 50% IV, give 12.5 grams (25 ml), IV push ONE TIME Less than 40 mg/dL Dextrose 50% IV, give 25 grams (50 ml), IV push ONE TIME Patient has no IV access, patient UNCONCIOUS, unable to swallow or NPO Glucose Level Treatment Less than 70 mg/dL Administer IM GLUCAGON 1 mg one time. After administration of glucagon is complete insert peripheral IV and notify physician. Patient is CONCIOUS and able to swallow and no longer NPO Glucose Level Treatment 40-69 mg/dL Give 15 gram food choice such as: Regular soda (6 oz), Apple juice (4 oz), or 1/2 cup regular jello Less Than 40 mg/dL Give 30 gram food choice such as: Regular soda (12 oz), Apple juice (8 oz), or 1cup regular jello Nursing Communication for Subsequent Care: ??? Check POC glucose 15 minutes after rescue. ??? Recheck and retreat every 15 minutes until blood glucose is greater than or equal to 70 mg/dL. ??? Once POC glucose result is 70 mg/dL or greater: o Check POC glucose every 30 minutes for 3 occurrences o Resume previous POC Glucose check orders. After Hypoglycemic Symptoms Subside, Give a Snack or Ask Provider for Dextrose Containing Fluids SNACK CHOICES: 1 carb and 1 fat servin saltine crackers and 2 teaspoons peanut butter; or 1 slice of bread and 2 teaspoons peanut butter; or 1 oz cheese and 6 saltine crackers; or 1 cup 2% milk and 6 saltine crackers. ORATE RECEPTIONIST documented in this encounter Plan of Treatment Upcoming Encounters Date Type Department Care Team (Late st Contact Info) Description 06/20/2024 9:30 AM CORPORATE RECEPTIONIST Office Visit [facility] Orthopedic Surgery at the [facility] [address] [place] [address] [place] [address] [place] [address] 10/27/2024 2:45 PM CDT Office Visit [facility] Gastroenterology [facility] [address] [place] [address] Bebo Benites MD [address] [place] [address] documented as of this encounter Procedures Procedure Name Priority Date/Time Associated Diagnosis Comments UPPER ENDOSCOPY REPORT 9 2:03 PM CORPORATE RECEPTIONIST PATHOLOGY Pathology 05/17/2019 1:55 PM CORPORATE RECEPTIONIST Dysphagia ESOPHAGOGASTRODUODENOSCOPY 05/17 1:29 PM CORPORATE RECEPTIONIST Dysphagia POC , URINE Routine 05/17/2019 1:05 PM CORPORATE RECEPTIONIST documented in this encounter Results * UPPER ENDOSCOPY REPORT (05/17/2019 2:03 PM CORPORATE RECEPTIONIST) Narrative Procedure Note Jena Cerda MD - 05/17/2019 2:02 PM CST [facility] Endoscopy Patient Name: Lis Phelan Procedure Date: 05/17/2019 Date of : 1985 Admit Type: Outpatient Attending MD: Jena Cerda , Procedure: Upper GI endoscopy Indications: Dysphagia Providers: Jena Cerda Referring MD: Francis Pereyra MD Medicines: Monitored Anesthesia Care Complications: No immediate complications. Procedure: Informed consent [...] minimal. Findings: Mucosal changes including longitudinal furrows and congestion (edema) were found in the middle third of the esophagus and in the lower third of the esophagus. Biopsies were obtained from the proximal and distal esophagus with cold forceps for histology of suspected eosinophilic esophagitis. A hiatal hernia was found. The proximal extent of the gastric folds (end of tubular esophagus) was 32 cm from the incisors. The hiatal narrowing was 36 cm from the incisors. The Z-line was 33 cm from the incisors. The entire examined stomach was normal. The examined duodenum was normal. Impression: - Esophageal mucosal changes suspicious for eosinophilic esophagitis. Biopsied. - Hiatal hernia. - Normal stomach. - Normal examined duodenum. Recommendation: - Discharge patient to home (with escort). - [...] Return to my office in 4 weeks. Jena Cerda, 05/17/2019 2:02:37 PM This report has been signed electronically. Number of Addenda: [address]; [place] [address] Jena Cerda MD GI PROCEDURE O RDERABLES * PATHOLOGY (05/17/2019 1:55 PM CORPORATE RECEPTIONIST) CASE REPORT Surgical Pathology Report ? Case: [id number] ? Authorizing Provider: ??Jena Cerda, ?? Collected: ? 05/17/2019 01:55 PM ? Ordering Location: ? [facility] [address] ??Received: ?05/17/2019 04:07 PM ? Pathologist: ? Emily Sahu MD ? Specimens: ?? A) - Esophagus, mid, bx ? B) - Esophagus, distal, bx ? 05/18/2019 10:05 AM [facility] FINAL DIAGNOSIS Esophagus, mid, biopsy: - Esophagitis with marked increase of eosinophils, at least 60 per high-power field. Esophagus, distal, biopsy: - Esophagitis with marked increase of eosinophils, at least 60 per high-power field. 05/18/2019 10:05 AM [facility] IMEN DESCRIPTION (1) Mid esophagus biopsy; (2) distal esophagus biopsy. 05/18/2019 10:05 AM [facility] OPERATIVE PROCEDURE EGD. 05/18/2019 10:05 AM [facility] CLINICAL DIAGNOSIS R13.10, dysphagia. Rule out eosinophilic esophagitis. 05/18/2019 10:05 AM [facility] GROSS DESCRIPTION The specimens are received in two containers, each labeled Lis Phelan. Received in the first container labeled esophagus, mid biopsy are three pieces of irregular, translucent tissue ranging from 0.2 to 0.5 cm in greatest dimension. The specimen is submitted in toto labeled A1. Received in the second container labeled esophagus, distal biopsy are five pieces of irregular, white-arrieta tissue ranging from 0.1 to 0.4 cm in greatest dimension. The specimen is submitted in toto labeled B1. ALG/jmp 05/18/2019 10:05 AM [facility] MICROSCOPIC DESCRIPTION The slides are labeled [id number] and Lis Phelan. Sections from the mid esophagus show esophagitis with marked increase of eosinophils, at least 60 per high-power field. No dysplasia or carcinoma is identified. Sections from the distal esophagus show esophagitis with marked increase of eosinophils, at least 60 per high-power field. No dysplasia or carcinoma is identified. Comment: There is marked increase of eosinophils in both proximal and distal esophagus, suggestive of eosinophilic esophagitis in the appropriate clinical endoscopic settings. Clinical endoscopic correlation is suggested. 05/18/2019 10:05 AM [facility] COMMENT Special stain and/or immunohistochemical results are interpreted with controls that demonstrate appropriate staining reactions. Note on use of immunocytochemistry reagents: This test was developed and its performance characteristics determined by [facility], Department of Laboratory Medicine. It has [...] part or completely in the following laboratories: [facility], CLIA #[id number] [address] [place] [id number] [place] [address], CLIA #[id number] [address] [place] [address] [place] [address]/[place], [place] #[id number] [place] [address]. 05/18/2019 10:05 AM [facility] Tissue (Esophagus, mid) Collection / Unknown 05/17/2019 1:55 PM CORPORATE RECEPTIONIST 05/17/2019 4:07 PM CORPORATE RECEPTIONIST Comment:Rule out eosinophili c esophagitis. Tissue specimen (specimen) (Esophagus, distal) Collection / Unknown 05/17/2019 1:55 PM CORPORATE RECEPTIONIST 05/17/2019 4:07 PM CORPORATE RECEPTIONIST Comment:Rule out eosinophili c esophagitis. Jena Cerda MD PATHOLOGY/CYTO LOGY ORDERABLES [facility] [employer] [facility] CLIA# [id number] [address] [place] [address] * POC , URINE (05/17/2019 1:05 PM CORPORATE RECEPTIONIST) HCG QUAL URINE Negative Negative 05/17/2019 1:05 PM CORPORATE RECEPTIONIST [facility] LABORATORY [facility] DINKER NAME POC LEONA PAIZ 05/17/2019 1:05 PM CORPORATE RECEPTIONIST [facility] [employer] [facility] Urine 05/17/2019 1:05 PM CORPORATE RECEPTIONIST 05/17/2019 1:07 PM CORPORATE RECEPTIONIST Jena Cerda MD POINT OF CARE TESTING Performing Organization Address [facility]/ZIP Co de Phone Number [facility] [employer] [facility] [id number] [address] [place] [address] documented in this encounter Visit Diagnoses Diagnosis Dysphagia Dysphagia, unspecified documented in this encounter Administered Medications Inactive Administered Medications - up to 3 most recent administrations Medication Order MAR Action Action Date Dose Rate Site lactated ringers infusion IV, at 125 mL/hr, PRE-PROCEDURE CONTINUOUS, Starting on Thu05/17/19 at 1300, Until Thu05/17/19 at 1636, Routine, Pre-Procedure Continue from Pre-Op 05/17/2019 1:34 PM CORPORATE RECEPTIONIST New Bag 05/17/2019 1:24 PM CORPORATE RECEPTIONIST 125 mL/hr ondansetron (ZOFRAN) 4 mg/2 mL injection 8 mg 8 mg, IV, ONE TIME ONLY, 1 dose, On Thu05/17/19 at 1415, Routine Given 05/17/2019 2:02 PM CORPORATE RECEPTIONIST 8 mg documented in this encounter Active and Recently Administered Medications Times are shown in CORPORATE RECEPTIONIST. Scheduled Medication Order 05/15/2019 05/16/2019 05/17/2019 ondansetron (ZOFRAN) 4 mg/2 mL injection 8 mg (COMPLETED) 8 mg, IV, ONE TIME ONLY, 1 dose, On Thu05/17/19 at 1415, Routine 1402 (Given - Provid er: Gracilea Balderrama RN) Continuous Medication Order 05/15/2019 05/16/2019 05/17/2019 lactated ringers infusion IV, at 125 mL/hr, PRE-PROCEDURE CONTINUOUS, Starting on Thu05/17/19 at 1300, Until Thu05/17/19 at 1636, Routine, Pre-Procedure 1324 (New Bag - Prov ider: Lara Boone RN)1334 (Continue from Pre-Op - Provider: Telma Alas CRNA)1350 (Fluid Volume - Provider: Telma Alas CRNA)1422 (Stopped - Provider: Graciela Balderrama RN) documented in this encounter Additional Health Concerns Assessment Noted Time PHQ-9 Depression Total Score: 6 07/08/19 19 9:00 AM CORPORATE RECEPTIONIST documented as of this encounter Care Teams Manager Secondary Relationship Specialty Start Date End Date Francis Pereyra MD PCP - General Family Practice 02/08/18 12/08/21 documented as of this encounter
--- OUTSIDE RECORDS SUMMARY | 2024-06-08 20:22 | XMS_ITS | Encounter Summary ---
Author Organization [facility] Address [address] [place] [address] Care Team Providers Care Catholic Priest Name Role Phone Francis Pereyra MD Primary Care Provider Unava ilable Reason for Visit * Reason Onset Date Comments Medication Refill 11/11/2019 Encounter Details Date Type Department Care Team (Late st Contact Info) Description 11/11/2019 Refill [facility] at Work [employer] [place] [address] [place] [address] Tessa Su, ENTERPRISE ARCHITECT MANAGER [address] [facility] [address] [place] [address] Encounter for post surgical wound check (Primary Dx) Social History Tobacco Use Types [...] Contact Info) Description 06/20/2024 9:30 AM MANAGER STAFFING Office Visit [facility] Orthopedic Surgery at the [facility] Medicine [address] [place] [address] [place] [address] [place] [address] 10/27/2024 2:45 PM CDT Office Visit [facility] Gastroenterology [facility] [address] [place] [address] Bebo Benites MD [address] [place] [address] documented as of this encounter Visit Diagnoses Diagnosis Encounter for post surgical wound check- Primary documented in this encounter Additional Health Concerns Assessment Noted Time PHQ-9 Depression Total Score: 6 08/29/19 20 10:00 AM CDT documented as of this encounter Care Teams Catholic Priest Relationship Specialty Start Date End Date Francis Pereyra MD PCP - General Family Practice 02/08/18 12/08/21 documented as of this encounter
--- OUTSIDE RECORDS SUMMARY | 2024-06-08 20:22 | XMS_ITS | Encounter Summary ---
Author Organization [facility] Address [address] [place] [address] Care Team Providers Care Construction Contractor Name Role Phone Francis Pereyra MD Primary Care Provider Unava ilable Reason for Referral * Radiology Services (Routine) - Closed Specialty Diagnoses / Procedures Referred By Contac t Referred To Contact Diagnoses RUQ pain Epigastric pain Procedures NM HEPATOBIL W PHARM INTERV Francis Pereyra MD NO ADDRESS ON FILE [address] [address] Referral ID Status Reason Start Date Expiration Date V isits Requested Visits Authorized [id number] Closed [facility] CTS 05/12/2019 06/10/2019 1 1 ARCH & ANALYTICS MANAGER Reason for Visit * Reason Comments Abdominal Pain Encounter Details Date Type Department Care Team (Late st Contact Info) Description 05/09/2019 11:30 AM RESEARCH & ANALYTICS MANAGER Office Visit [facility]3] at [facility] [employer] [place] [address] [place] [address] Francis Pereyra MD NO ADDRESS ON FILE Epigastric pain (Primary Dx); RUQ pain Social History Tobacco Use Types Packs/Day [...] Sign Reading Time Taken Comments Blood Pressure 156/92 05/09/2019 11:39 AM RESEARCH & ANALYTICS MANAGER Pulse 106 05/09/2019 11:39 AM RESEARCH & ANALYTICS MANAGER Temperature 37.1 ??C (98.7 ??F) 05/09/2019 11:[address] Respiratory Rate 20 05/09/2019 11:39 AM RESEARCH & ANALYTICS MANAGER Oxygen Saturation 98% 05/09/2019 11:39 AM RESEARCH & ANALYTICS MANAGER Inhaled Oxygen Concentration - - Weight 113.4 kg (250 lb) 05/09/2019 11:39 AM RESEARCH & ANALYTICS MANAGER Height 165.1 cm (5' 5 ) 05/09/2019 11:39 AM RESEARCH & ANALYTICS MANAGER Body Mass Index 41.6 05/09/2019 11:39 AM RESEARCH & ANALYTICS MANAGER documented in this encounter Progress Notes * Francis Pereyra MD - 05/09/2019 11:43 AM CST Lis Phelan is a 34 y.o. female Chief Complaint/HPI: Chief Complaint Patient presents with ??? Abdominal Pain Tobacco Intervention She is not a tobacco user. Depression Screen Positive: PHQ-2 score >= 3 or PHQ-9 score >= 9 PHQ-2 Total: 6 (07/08/2018 9:00 AM) DEPRESSION PLAN OF CARE She was scheduled for a future appointment to do an additional evaluation Blood Pressure BP Readings from Last 3 Encounters: 05/09/19 (!) 156/92 12/09/18 122/82 12/02/18 (!) 152/84 Normal BMI Range: 18 & older: > or = 18.5 and < 25 Body mass index is 41.6 kg/m??. Abnormal high BMI: Patient counseled on lifestyle modifications including weight loss and daily exercise. This medical record reflects the history of present illness as obtained by myself in discussion with the patient. SUBJECTIVE: Here for above problems. abd pain mid epigastric this time. Has had similar in past with work up that has been non diagnostic including ct and evaluation of gallbladder. 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 Has known scar tissue. Had surgery in past to remove scar tissue. No one will do additional surgeries. occ gets this type of pain. No n/v with this episode. No stool chagnes with this episode. No blood. No fever. Sharp pain that doubles her over. Today is all but gone. Just remnants of soreness. ROS Review of Systems - History obtained from chart review and the patient General ROS: negative for weight changes, fever Respiratory ROS: negative for cough, shortness of breath, or wheezing Cardiovascular ROS: negative for chest pain or dyspnea on exertion Gastrointestinal ROS: positive for - abdominal pain negative for - blood in stools, change in bowel habits, change in stools, constipation, diarrhea, gas/bloating, heartburn or nausea/vomiting Genito-Urinary ROS: negative for dysuria, trouble voiding, or hematuria Musculoskeletal ROS: negative for back pain, neck pain or joint pain or swelling Allergy and medication list reviewed and updated. OBJECTIVE: She appears well, in no apparent distress. Vital signs documented in vital signs section and are reviewed. Physical Examination: General appearance - alert, well appearing, and in no distress and oriented to person, place, and time Eyes - pupils equal and reactive, extraocular eye movements intact Chest - clear to auscultation, no wheezes, rales or rhonchi, symmetric air entry Heart - normal rate, regular rhythm, normal S1, S2, no murmurs, rubs, clicks or gallops Abdomen - soft with normal bowel sounds. Slight pressure pain to palpation but no rebound or guarding. Suspect functional along with posible scar tissue. As gallbladder was evald with normal sono in past I doubt gallbladder. But could be functional so I will check hida scan. ASSESSMENT AND PLAN: ICD-10-CM ICD-9-CM 1. Epigastric pain R10.13 789.06 esomeprazole (NexIUM) 20 mg Capsule, Delayed Release(E.C.) NM HEPATOBIL W PHARM INTERV 2. RUQ pain R10.11 789.01 esomeprazole (NexIUM) 20 mg Capsule, Delayed Release(E.C.) NM HEPATOBIL W PHARM INTERV Followup visit after results. ARCH & ANALYTICS MANAGER documented in this encounter Miscellaneous Notes * Patient Instructions - Francis Pereyra MD - 05/09/2019 12:00 PM RESEARCH & ANALYTICS MANAGER An After Visit Summary was printed and given to the patient. Please call the number below for help with scheduling your test/imaging referral or physician/therapy referral. [facility] Central test [phone] [facility] Main number and ask for radiology department: [phone] [facility] Main number and ask for department: [phone] [facility] Main number and ask for department: [phone] [facility] Main number and ask for department: [phone] [facility] Main number and ask for department: [phone] ARCH & ANALYTICS MANAGER documented in this encounter Plan of Treatment Upcoming Encounters Date Type Department Care Team (Late st Contact Info) Description 06/20/2024 9:30 AM RESEARCH & ANALYTICS MANAGER Office Visit [facility]3] Orthopedic Surgery at the [facility] [address] [facility] [address] [place] [address] [place] [address] [place] [address] 10/27/2024 2:45 PM CDT Office Visit [facility]3] Gastroenterology [facility] [address] [place] [address] Bebo Benites MD [address] [place] [address] Scheduled Orders Name Type Priority Associated Diagnoses Orde r Schedule NM HEPATOBIL W PHARM INTERV Imaging Routine RUQ pain Epigastric pain 1 Occurrences starting 05/09/2019 until 05/09/2020 documented as of this encounter Visit Diagnoses Diagnosis Epigastric pain- Primary Abdominal pain, epigastric RUQ pain Abdominal pain, right upper quadrant documented in this encounter Additional Health Concerns Assessment Noted Time PHQ-9 Depression Total Score: 6 07/08/19 19 9:00 AM RESEARCH & ANALYTICS MANAGER documented as of this encounter Care Teams Construction Contractor Relationship Specialty Start Date End Date Francis Pereyra MD PCP - General Family Practice 02/08/18 12/08/21 documented as of this encounter
--- OUTSIDE RECORDS SUMMARY | 2024-06-08 20:22 | XMS_ITS | Encounter Summary ---
Author Organization [facility] Address [address] [place] [address] Care Team Providers Care Manager Of Operations Name Role Phone Francis Pereyra MD Primary Care Provider Unawalter ilable Reason for Visit * Reason Onset Date Comments Results 11/11/2019 Encounter Details Date Type Department Care Team (Late st Contact Info) Description 11/11/2019 Telephone [facility] at Work [employer] [place] [address] [place] [address] [place] [address] [facility] [address] [place] [address] Results Social History Tobacco Use Types Packs/Day [...] encounter Miscellaneous Notes * Telephone Encounter - Tessa Su NP - 11/11/2019 3:37 PM CDT Called pt with neg CXR results. Will cont as discussed with deep breathing, splinting incision. Monitor for cough, fevers. Was not able to get refill on pain med. Will request for Dr Pereyra to co-sign - [employer]. documented in this encounter Plan of Treatment Upcoming Encounters Date Type Department Care Team (Late st Contact Info) Description 06/20/2024 9:30 AM SIGNALS ANALYST Office Visit [facility] Orthopedic Surgery at the [facility] Medicine [address] [facility] [address] [place] [address] [place] [address] [place] [address] 10/27/2024 2:45 PM CDT Office Visit [facility] Gastroenterology [facility] [address] [place] [address] Bebo Benites MD [address] [facility] [place] [address] documented as of this encounter Visit Diagnoses Not on filedocumented in this encounter Additional Health Concerns Assessment Noted Time PHQ-9 Depression Total Score: 6 08/29/19 20 10:00 AM CDT documented as of this encounter Care Teams Manager Of Operations Relationship Specialty Start Date End Date Francis Pereyra MD PCP - General Family Practice 02/08/18 12/08/21 documented as of this encounter
--- OUTSIDE RECORDS SUMMARY | 2024-06-08 20:22 | XMS_ITS | Encounter Summary ---
Author Organization [facility] Address [address] [place] [address] Care Team Providers Care Iron Melter Name Role Phone Francis Pereyra MD Primary Care Provider Unava ilable Reason for Visit * Reason Onset Date Comments Abdominal Pain 05/06/2019 Encounter Details Date Type Department Care Team (Late st Contact Info) Description 05/06/2019 Telephone [facility] at Work [employer] [place] [address] [place] [address] Tessa Su, MICHAEL [address] [facility] [address] [place] [address] Abdominal Pain Social History Tobacco Use Types Packs/Day Years [...] Notes * Telephone Encounter - Henrietta Andrade - 05/06/2019 9:07 AM CST Pt called requesting an appointment. I advised pt we are full today and our next available was Thursday05/09/19 at 11:30am. Pt states she is having severe abdominal pain and is wondering if it is her gall bladder or pancreas. I advised pt seek treatment right away at the nearest ED since the pain issevere. Pt states she doesn't want to go to the ED because they will do more testing and last time she had it done everything was normal. I advised pt it wasn't a good idea to wait through the weekend and pt stated she will proceed to the ED if the pain keeps up. RANCE VERIFICATION CLERK documented in this encounter Plan of Treatment Upcoming Encounters Date Type Department Care Team (Late st Contact Info) Description 06/20/2024 9:30 AM INSURANCE VERIFICATION CLERK Office Visit [facility] Orthopedic Surgery at the [facility] [address] [facility] [address] [place] [address] [place] [address] [place] [address] 10/27/2024 2:45 PM CDT Office Visit [facility] Gastroenterology [facility] [address] [facility] [address] [place] [address] Bebo Benites MD [address] [facility] [address] [place] [address] documented as of this encounter Visit Diagnoses Not on filedocumented in this encounter Additional Health Concerns Assessment Noted Time PHQ-9 Depression Total Score: 6 07/08/19 19 9:00 AM INSURANCE VERIFICATION CLERK documented as of this encounter Care Teams Iron Melter Relationship Specialty Start Date End Date Francis Pereyra MD PCP - General Family Practice 02/08/18 12/08/21 documented as of this encounter
--- OUTSIDE RECORDS SUMMARY | 2024-06-08 20:22 | XMS_ITS | Encounter Summary ---
Author Organization [facility] Address [address] [place] [address] Care Team Providers Care Skirt Panel Assembler Name Role Phone Francis Pereyra MD Primary Care Provider Unava ilable Reason for Visit * Reason Comments Medication Refill Encounter Details Date Type Department Care Team (Latest Contact Info) Description 02/01/2019 2:15 PM CDT Procedure visit [facility] at Work [employer] [address] [employer] [place] [address] Issue of repeat prescription (Primary Dx) Social [...] this encounter Progress Notes * Henrietta Andrade - 02/01/2019 2:07 PM CDT Albuterol inhaler #1. Refill 2 of 3. Picked up by pt's mom, Luba. Verbal permission received from pt to give to Luba. documented in this encounter Plan of Treatment Upcoming Encounters Date Type Department Care Team (Late st Contact Info) Description 06/20/2024 9:30 AM BRAIDING OPERATOR Office Visit [facility] Orthopedic Surgery at the [facility] [address] [facility] [address] [place] [address] [place] [address] [place] [address] 10/27/2024 2:45 PM CDT Office Visit [facility] Gastroenterology [facility] [address] [facility] [address] [place] [address] Bebo Benites MD [address] [facility] [address] [place] [address] documented as of this encounter Visit Diagnoses Diagnosis Issue of repeat prescription- Primary Issue of repeat prescriptions documented in this encounter Additional Health Concerns Assessment Noted Time PHQ-9 Depression Total Score: 6 07/08/19 19 9:00 AM BRAIDING OPERATOR documented as of this encounter Care Teams Skirt Panel Assembler Relationship Specialty Start Date End Date Francis Pereyra MD PCP - General Family Practice 02/08/18 12/08/21 documented as of this encounter
--- OUTSIDE RECORDS SUMMARY | 2024-06-08 20:22 | XMS_ITS | Encounter Summary ---
Author Organization [facility] Address [address] [place] [address] Care Team Providers Care Computer Discovery Teacher Name Role Phone Francis Pereyra MD Primary Care Provider Unava ilable Reason for Visit * Reason Onset Date Comments Results 05/25/2019 Encounter Details Date Type Department Care Team (Late st Contact Info) Description 05/25/2019 Telephone [facility] at Work [employer] [place] [address] [place] [address] [place] [address] [facility] [address] [place] [address] Results Social History Tobacco Use [...] Telephone Encounter - Tessa Su NP - 05/25/2019 11:01 AM ASSISTANT TECHNICIAN Thank you, I will place the order. STANT TECHNICIAN * Telephone Encounter - Henrietta Andrade - 05/25/2019 10:52 AM CST Spoke to pt giving this information. Pt verbalized understanding. Pt states she does not have a surgeon in mind so she would like a referral placed. Pt states she has the number for [facility] central scheduling so she will call them if she does not hear anything in the next few days. ----- Message from Tessa Su NP sent at 05/25/2019 8:30 AM ASSISTANT TECHNICIAN ----- Regarding: Hepatobiliary scan Please let pt know her hepatobiliary scan showed her EF is lower than expected at 25% which could be the cause of her symptoms. I recommend seeing a surgeon to discuss having her gall bladder removed. Does she have one she prefers or can I refer her? Recommend low fat diet to avoid precipitating pain. STANT TECHNICIAN documented in this encounter Plan of Treatment Upcoming Encounters Date Type Department Care Team (Late st Contact Info) Description 06/20/2024 9:30 AM ASSISTANT TECHNICIAN Office Visit [facility] Orthopedic Surgery at the [facility] [address] [facility] [address] [place] [address] [place] [address] [place] [address] 10/27/2024 2:45 PM CDT Office Visit [facility] Gastroenterology [facility] [address] [facility] [address] [place] [address] Bebo Benites MD [address] [facility] [address] [place] [address] documented as of this encounter Visit Diagnoses Not on filedocumented in this encounter Additional Health Concerns Assessment Noted Time PHQ-9 Depression Total Score: 6 07/08/19 19 9:00 AM ASSISTANT TECHNICIAN documented as of this encounter Care Teams Computer Discovery Teacher Relationship Specialty Start Date End Date Francis Pereyra MD PCP - General Family Practice 02/08/18 12/08/21 documented as of this encounter
--- OUTSIDE RECORDS SUMMARY | 2024-06-08 20:22 | XMS_ITS | Encounter Summary ---
Author Organization [facility] Address [address] [facility] Attn: [place] [address] Care Team Providers Care Dough Mixing Machine Operator Name Role Phone Francis Pereyra MD Primary Care Provider Rishi georges Encounter Details Date Type Department Care Team (Latest Contact Info) Description 11/11/2019 Travel Social History Tobacco Use Types Packs/Day [...] Contact Info) Description 06/20/2024 9:30 AM DIRECTOR VACCINE Office Visit [facility] Orthopedic Surgery at the [facility] Medicine [address] [facility] [address] [place] [address] [place] [address] [facility] [address] [place] [address] 10/27/2024 2:45 PM CDT Office Visit [facility] Gastroenterology [facility] [address] [facility] [address] [place] [address] Bebo Benites MD [address] [address] documented as of this encounter Visit Diagnoses Not on filedocumented in this encounter Additional Health Concerns Assessment Noted Time PHQ-9 Depression Total Score: 6 08/29/19 20 10:00 AM CDT documented as of this encounter Care Teams Dough Mixing Machine Operator Relationship Specialty Start Date End Date Francis Pereyra MD PCP - General Family Practice 02/08/18 12/08/21 documented as of this encounter
--- OUTSIDE RECORDS SUMMARY | 2024-06-08 20:22 | XMS_ITS | Encounter Summary ---
Author Organization [facility] Address [address] [place] [address] Care Team Providers Care Steam Drier Operator Name Role Phone Francis Pereyra MD Primary Care Provider Unava ilable Reason for Visit * Reason Comments Cyst above ear Encounter Details Date Type Department Care Team (Late st Contact Info) Description 05/12/2019 9:30 AM OUTBOARD MOTORS EXPERIMENTAL MECHANIC Office Visit [facility] [place] [address] [place] [address] Tessa Su, MICHAEL [address] [facility] [address] [place] [address] Cutaneous abscess of head excluding face (Primary Dx); Screening for condition; Type 2 diabetes mellitus [...] Sign Reading Time Taken Comments Blood Pressure 160/100 05/12/2019 9:54 AM OUTBOARD MOTORS EXPERIMENTAL MECHANIC Pulse 116 05/12/2019 9:33 AM OUTBOARD MOTORS EXPERIMENTAL MECHANIC Temperature 37.3 ??C (99.2 ??F) 05/12/2019 9:33 AM CS T Respiratory Rate 20 05/12/2019 9:33 AM OUTBOARD MOTORS EXPERIMENTAL MECHANIC Oxygen Saturation 98% 05/12/2019 9:33 AM OUTBOARD MOTORS EXPERIMENTAL MECHANIC Inhaled Oxygen Concentration - - Weight 113.9 kg (251 lb) 05/12/2019 9:33 AM OUTBOARD MOTORS EXPERIMENTAL MECHANIC Height 165.1 cm (5' 5 ) 05/12/2019 9:33 AM OUTBOARD MOTORS EXPERIMENTAL MECHANIC Body Mass Index 41.77 05/12/2019 9:33 AM OUTBOARD MOTORS EXPERIMENTAL MECHANIC documented in this encounter Progress Notes * Tessa Su, MICHAEL - 05/12/2019 2:22 PM CST HISTORY OF PRESENT ILLNESS Lis Phelan is a 34 y.o. female who presents for Chief Complaint Patient presents with ??? Cyst above ear 2-3 days progressive worsening of tender area above her left ear. Does not recall trauma, injury, dge, fevers. Tender to touch and seems to be causing a headache. Having an UGI at [facility] and then the HIDA scan over the next week. Reviewed last OV note. Had abd pain again this am that was transient and severe across epigastric area. Past Medical History: Diagnosis Date ??? Arthritis ??? Asthma ??? Depression ??? Diabetes mellitus ??? GERD (gastroesophageal reflux disease) ??? Headache ??? History of shingles ??? HTN (hypertension) ??? Hyperlipidemia Current Outpatient Medications Medication Sig Dispense Refill ??? cephALEXin (KEFLEX) 500 mg capsule Take 1 Capsule (500 mg) by mouth 3 times daily for 10 days. 30 Capsule 0 ??? esomeprazole (NexIUM) 20 mg Capsule, Delayed Release(E.C.) Take 1 Capsule (20 mg) by mouth daily before breakfast. 30 Capsule 0 ??? albuterol HFA 90 mcg inhaler Take 1-2 Puffs by inhalation every 4 hours as needed for Shortnessof Breath or Wheezing. 6.7 Gram 3 ??? etonogestrel (IMPLANON SDRM) by Subdermal route. No current facility-administered medications for this visit. Allergies Allergen Reactions ??? Chantix [Varenicline] Anaphylaxis ??? Metronidazole Nausea and Vomiting Other reaction(s): Vomiting ??? Demerol [Meperidine] Swelling ??? Tramadol Hives BP (!) 160/100 Pulse (!) 116 Temp 99.2 ??F (37.3 ??C) (Tympanic) Resp 20 Ht 5' 5 (1.651 m) Wt 113.9 kg (251 lb) SpO2 98% BMI 41.77 kg/m?? MEDICAL RECORD UPDATE Past Medical History: Diagnosis Date ??? Arthritis ??? Asthma ??? Depression ??? Diabetes mellitus ??? GERD (gastroesophageal reflux disease) ??? Headache ??? History of shingles ??? HTN (hypertension) ??? Hyperlipidemia Past Surgical History: Procedure Laterality Date ??? HX GASTROSCHISIS CLOSURE ??? HX SURGICAL OTHER 04/2004 adhesion removed Family History Problem Relation Name Age of Onset ??? Lung Cancer Father ??? Stroke Father ??? Hypertension Mother ??? High Cholesterol Mother ??? Unknown Brother ??? Unknown Maternal Grandmother ??? Unknown Maternal Grandfather ??? Diabetes Paternal Grandmother ??? Kidney Disease Paternal Grandfather ??? No Known Problems Daughter ??? No Known Problems Son Current medications and allergies were reviewed and updated in computerized patient record. [address] Care Providers: Patient Care Team: Francis Pereyra MD as PCP - General (Family Practice) No Patient Care Coordination Note on file. Vital signs/Tobacco use BP (!) 160/100 Pulse (!) 116 Temp 99.2 ??F (37.3 ??C) (Tympanic) Resp 20 Ht 5' 5 (1.651 m) Wt 113.9 kg (251 lb) SpO2 98% BMI 41.77 kg/m?? Blood Pressure BP Readings from Last 3 Encounters: 05/12/19 (!) 160/100 05/09/19 (!) 156/92 12/09/18 122/82 BMI POC (QM) Body mass index is 41.77 kg/m??. Normal BMI range: 18 & older: > or = 18.5 and < 25 Abnormal high BMI: Patient counseled on lifestyle modifications including weight loss and daily exercise. The 10-year CVD risk score (Syeda et al., 2008) is: 7.9% Values used to calculate the score: Age: 34 years Sex: Female Diabetic: Yes Tobacco smoker: No Systolic Blood Pressure: 160 mmHg Is BP treated: No HDL Cholesterol: 36 mg/dL Total Cholesterol: 193 mg/dL Consider Statins if 10 year risk >7.5-10% Tobacco Use (QM) reports that she quit smoking about 3 years ago. She has never used smokeless tobacco. She is not a tobacco user. EXAMINATION REVIEW OF SYSTEMS Review of Systems Constitutional: Negative. HENT: Negative for congestion, ear pain, sinus pain and sore throat. Respiratory: Negative for cough. Gastrointestinal: Positive for abdominal pain. Negative for blood in stool, constipation, diarrhea,nausea and vomiting. Skin: Tender area above right ear Neurological: Positive for headaches. Objective PHYSICAL EXAM Physical Exam Constitutional: Appearance: She is well-developed. HENT: Head: Normocephalic and atraumatic. Right Ear: Tympanic membrane and ear canal normal. Left Ear: Tympanic membrane and ear canal normal. Nose: Nose normal. Mouth/Throat: Lips: [place]. Mouth: Mucous membranes are moist. Eyes: Conjunctiva/sclera: Conjunctivae normal. Cardiovascular: Rate and Rhythm: Normal rate and regular rhythm. Heart sounds: Normal heart sounds, S1 normal and S2 normal. No murmur. No friction rub. No gallop. Pulmonary: Effort: Pulmonary effort is normal. No respiratory distress. Breath sounds: Normal breath sounds. No wheezing or rales. Skin: General: Skin is warm and dry. Findings: Abscess present. Comments: About 2 cm superior to left ear is slightly raised tender nodule about 1 cm diam. Non fluctuant. No erythema or warmth. Has not drained. Neurological: Mental Status: She is alert and oriented to person, place, and time. No results found for any visits on 05/12/19 (from the past 24 hour(s)). ASSESSMENT and PLAN: Lis was seen today for cyst. Diagnoses and all orders for this visit: Cutaneous abscess of head excluding face - cephALEXin (KEFLEX) 500 mg capsule; Take 1 Capsule (500 mg) by mouth 3 times daily for 10 days. Screening for condition - HEMOGLOBIN A1C; Future - COMPREHENSIVE METABOLIC PANEL; Future - CBC WITH DIFFERENTIAL; Future Type 2 diabetes mellitus without complication, without long-term current use of insulin Abscess- Keflex, warm compresses. Follow up if not improved in 3-4 days, sooner if worsening. Does not require I&D today. Labs and follow up in 2 weeks. DM Type 2- Does not take her medication, has not been on Metformin. States she really struggles with taking her medications daily. Advised labs and follow up in 2 weeks to go over POC for diabetes, abd pain and BP. BP has been elevated the last 2 visits. She has had pain at both visits. Need re-evaluation. OARD MOTORS EXPERIMENTAL MECHANIC documented in this encounter Miscellaneous Notes * Patient Instructions - Tessa Su NP - 05/12/2019 9:52 AM OUTBOARD MOTORS EXPERIMENTAL MECHANIC Images from the original note were not included. [email or web address]. Skin Abscess: Care Instructions Your Care Instructions A skin abscess is a bacterial infection that forms a pocket of pus. A boil is a kind of skin abscess. The doctor may have cut an opening in the abscess so that the pus can drain out. You may have gauze in the cut so that the abscess will stay open and keep draining. You may need antibiotics. You will need to follow up with your doctor to make sure the infection has gone away. The doctor has checked you carefully, but problems can develop later. If you notice any problems ornew symptoms, get medical treatment right away. Follow-up care is a barreto part of your treatment and safety. Be sure to make and go to all appointments, and call your doctor if you are having problems. It's also a good idea to know your test resultsand keep a list of the medicines you take. How can you care for yourself at home? ?? Apply warm and dry compresses, a heating pad set on low, or a hot water bottle 3 or 4 times a day for pain. Keep a cloth between the heat source and your skin. ?? If your doctor prescribed antibiotics, take them as directed. Do not stop taking them just because you feel better. You need to take the full course of antibiotics. ?? Take pain medicines exactly as directed. ? If the doctor gave you a prescription medicine for pain, take it as prescribed. ? If you are not taking a prescription pain medicine, ask your doctor if you can take an [id number] medicine. ?? Keep your bandage clean and dry. Change the bandage whenever it gets wet or dirty, or at least one time a day. ?? If the abscess was packed with gauze: ? Keep follow-up appointments to have the gauze changed or removed. If the doctor instructed you toremove the gauze, follow the instructions you were given for how to remove it. ? After the gauze is removed, soak the area in warm water for 15 to 20 minutes 2 times a day, untilthe wound closes. When should you call for help? Call your doctor now or seek immediate medical care if: ? You have signs of worsening infection, such as: ? Increased pain, swelling, warmth, or redness. ? Red streaks leading from the infected skin. ? Pus draining from the wound. ? A fever. ??Watch closely for changes in your health, and be sure to contact your doctor if: ? You do not get better as expected. Where can you learn more? Go to https://www.[employer].net/patientEd Enter D633 in the search box to learn more about Skin Abscess: Care Instructions. Current as of: September 20, 2018 Content Version: 12.2 ?? [id number] [employer]. Care instructions adapted under license by your healthcare professional. If you have questions about a medical condition or this instruction, always ask your healthcare professional. These instructions may not represent the values of this healthcare organization. [employer] disclaims any warranty or liability for your use of this information. OARD MOTORS EXPERIMENTAL MECHANIC documented in this encounter Plan of Treatment Upcoming Encounters Date Type Department Care Team (Late st Contact Info) Description 06/20/2024 9:30 AM OUTBOARD MOTORS EXPERIMENTAL MECHANIC Office Visit [facility] Orthopedic Surgery at the [facility] [address] [facility] [address] [place] [address] [place] [address] [place] [address] 10/27/2024 2:45 PM CDT Office Visit [facility] Gastroenterology [facility] [address] [place] [address] Bebo Benites MD [address] [facility] [address] [place] [address] documented as of this encounter Results * (ABNORMAL) CBC WITH DIFFERENTIAL (07/19/2019 8:40 AM OUTBOARD MOTORS EXPERIMENTAL MECHANIC) WBC 7.0 3.4 - 10.8 x10E3/uL [facility] RBC 4.29 3.77 - 5.28 x10E6/uL [facility] HEMOGLOBIN 13.2 11.1 - 15.9 g/dL [facility] HEMATOCRIT 38.8 34.0 - 46.6 % [facility] MCV 90 79 - 97 fL [facility] MCH 30.8 26.6 - 33.0 pg [facility] MCHC 34.0 31.5 - 35.7 g/dL [facility] RDW 13.5 11.7 - 15.4 % [facility] PLATELETS 315 150 - 450 x10E3/uL [facility] NEUTROPHIL 55 Not Estab. % [facility] LYMPHOCYTES 28 Not Estab. % [facility] MONOCYTE 8 Not Estab. % [facility] EOSINOPHILS 9 Not Estab. % [facility] BASOPHILS 0 Not Estab. % [facility] NEUTROPHIL ABSOLUTE 3.9 1.4 - 7.0 x10E3/uL [facility] LYMPHOCYTE ABSOLUTE 2.0 0.7 - 3.1 x10E3/uL [facility] MONOCYTE ABSOLUTE 0.6 0.1 - 0.9 x10E3/uL [facility] EOSINOPHIL ABSOLUTE 0.6(H) 0.0 - 0.4 x10E3/uL [facility] BASOPHILS ABSOLUTE 0.0 0.0 - 0.2 x10E3/uL [facility] IMMATURE GRANULOCYTES 0 Not Estab. % [facility] IMMATURE GRANULOCYTES ABSOLUTE 0.0 0.0 - 0.1 x10E3/uL [facility] Blood 07/19/2019 8:40 AM OUTBOARD MOTORS EXPERIMENTAL MECHANIC 07/19/2019 Narrative [facility] - 07/20/2019 9:36 AM OUTBOARD MOTORS EXPERIMENTAL MECHANIC Performed at: ??01 - [facility] [address] ??[id number] Skidder Operator: Elan Crawford PhD, Phone: ??[phone] Tessa Su NP HEMATOLOGY ORDE RABLES Performing Organization Address [facility] Co de Phone Number [facility] [phone] * (ABNORMAL) HEMOGLOBIN A1C (07/19/2019 8:40 AM OUTBOARD MOTORS EXPERIMENTAL MECHANIC) HEMOGLOBIN A1C 6.1(H) 4.8 - 5.6 % [facility] Comment: ? Prediabetes: 5.7 - 6.4 ? Diabetes: >6.4 ? Glycemic control for adults with diabetes: <7.0 Blood 07/19/2019 8:40 AM OUTBOARD MOTORS EXPERIMENTAL MECHANIC 07/19/2019 Narrative [facility] - 07/20/2019 4:35 AM OUTBOARD MOTORS EXPERIMENTAL MECHANIC Performed at: ??01 - [facility] [address] ??[id number] Skidder Operator: Elan Crawford PhD, Phone: ??[phone] Tessa Su NP CHEMISTRY ORDER MIGUELITO Performing Organization Address [facility] de Phone Number [facility] [phone] documented in this encounter Visit Diagnoses Diagnosis Cutaneous abscess of head excluding face- Primary Cellulitis and abscess of other specified site Screening for condition Screening for unspecified condition Type 2 diabetes mellitus without complication, without long-term current use of insulin Lymphadenopathy- Primary Enlargement of lymph nodes Mild intermittent asthma without complication Unspecified asthma Screening for condition Screening for unspecified condition Microalbuminuria Proteinuria documented in this encounter Additional Health Concerns Assessment Noted Time PHQ-9 Depression Total Score: 6 07/08/19 19 9:00 AM OUTBOARD MOTORS EXPERIMENTAL MECHANIC documented as of this encounter Care Teams Steam Drier Operator Relationship Specialty Start Date End Date Francis Pereyra MD PCP - General Family Practice 02/08/18 12/08/21 documented as of this encounter
--- OUTSIDE RECORDS SUMMARY | 2024-06-08 20:22 | XMS_ITS | Encounter Summary ---
Author Organization [facility] Address [address] [place] [address] Care Team Providers Care Sciences Dean Name Role Phone Francis Pereyra MD Primary Care Provider Unava ilable Reason for Visit * Reason Comments Abdominal Pain pt arrived to ed wit h co RUQ abdominal pain. +N/V. Pain in the back has been occuring all day and the abdomen started around 8pm. * Auth/Cert Specialty Diagnoses / Procedures Referred By Rodney call Referred To Contact [facility] Surgical [address] [place] [address] Referral ID Status Reason Start Date Expiration Date Visits Re quested Visits Authorized [id number] 1 1 Encounter Details Date Type Department Care Team (Latest Contact Info) Description 11/01/2019 12:04 AM CDT - 11/08/2019 9:28 AM CDT Hospital Encounter [facility] Medicine [address] [place] [address] Demario Koo DO [address] [facility] [place] [address] Shobha Choi MD [address] [place] [address] Ashley Helms MD [address] [facility] [address] [address] Minal Arnold MD NO ADDRESS ON FILE Acute calculous cholecystitis Discharge Disposition: Home or Self Care Social [...] Sign Reading Time Taken Comments Blood Pressure 145/95 11/08/2019 5:46 AM CDT Pulse 83 11/08/2019 5:46 AM CDT Temperature 36.7 ??C (98.1 ??F) 11/08/2019 5:46 AM CD T Respiratory Rate 18 11/08/2019 5:46 AM CDT Oxygen Saturation 97% 11/08/2019 5:46 AM CDT Inhaled Oxygen Concentration - - Weight 111.1 kg (245 lb) 11/01/2019 5:35 AM CDT Height 167.6 cm (5' 6 ) 11/01/2019 5:35 AM CDT Body Mass Index 39.54 11/01/2019 5:35 AM CDT documented in this encounter Discharge Summaries * Jackson Crenshaw MD - 11/08/2019 8:18 AM CDT [facility] Adult Discharge Summary Lis Phelan 34 y.o. 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 Signed by: Francis Pereyra MD Quantity: 30 [...] Your Medications These medications were sent to [address] [address] Hours: Thursday-Thursday: 8 a.m. - 8 p.m., [...] Extended Emergency Contact Information Primary Emergency Contact: onur phelan Address: [address] [place] [address] Mobile Relation: Spouse Signed: Jackson Crenshaw MD 11/08/2019, 8:18 AM Associated attestation - Minal Arnold MD - 11/09/2019 4:53 PM CDT [facility] Adult Hospitalist Attending Note I reviewed the [...] DIABETIC Minal Arnold MD 11/08/2019 1:24 PM [facility] Approximately 25 minutes was spent in [...] If no response you may call the tool honing machine set up operator copywriting intern at zone phone [phone]. If no response you may call the tool honing machine set up operator senior resident at zone phone [phone] If no response please contact the attending of record via secure chat. 7 PM to 7 AM: The long call/night float resident should be listed as Resident on the treatment team and can be reached via secure chat. If no response you may call the tool honing machine set up operator copywriting intern at zone phone [phone]. If no response you may call the tool honing machine set up operator senior resident at zone phone [phone] Thursday and Thursday: 7 AM-12 PM: Please contact the resident via secure chat. The resident responsible for the patient will be on the Treatment Team listed as Resident 12 PM-7 AM: The long call/night float resident should be listed as Resident on the treatment teamand can be reached via secure chat. If no response call the tool honing machine set up operator copywriting intern at zone phone [phone]. If no response you may call the tool honing machine set up operator senior resident at zone phone [phone] If no response please contact the Rapid [...] day of discharge or next working day [phone] If you need to reach a surgeon when the office is closed then, call the hospital mult au matic operator at to contact the trauma surgeon tool honing machine set up operator. We will try to get back to [...] previously Do not go into swimming pools, oceans,cralson or streams the first month post op [...] to call for your follow up appointment [phone] on the day of discharge or the [...] medications lost or stolen willnot be replaced. APR Sign Up Instructions Step 1 How Do I sign Up? - In your Internet browser, go to [email or web address] and click CREATE ACCOUNT - Enter information about yourself (name, e-mail address, date of , etc...) In the future we will use your e-mail address to notify you when information is added to your APR record, such asmedical test results. - Create [...] that appears at the top of your Scannx statement - If the number you enter matches what is in your patient record, your registration will be complete and you can begin using APR - Finally, Verify your E-mail Address. Once the information you entered is matched to your Scannx electronic health record, an e-mail validation message will be sent to the e-mail address you provided. Please click on the link in the e-mail in order to verify your e-mail address. NOTE: Until you click the link in the e-mail validation message, you will see an alert each time you sign into MetaJureeminding you to verify your e-mail address Returning to APR in the future - Go to [email or web address] and simply enter your user ID and password If you have any questions or need additional assistance call us at during normal business hours WE STRONGLY ENCOURAGE YOU TO SEND MESSAGES TO Dr. 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 30 Tablet 08/29/2019 01/06/2020 ALPRAZolam (XANAX) 0.25 [...] Cole MD - 11/08/2019 7:59 AM CDT [facility] GENERAL SURGERY 11/08/2019 Sherrell Cole MD HPI: [...] unable to reach me, please call the mult au matic operator and ask for the On-Call Trauma Surgeon* Associated attestation - Lorna Fontenot MD - 11/08/2019 1:53 PM CDT Agree with below as noted by the resident. In addition I note: Adult woman, recovering well from surgery. Exam: Solway in place, will need to be removed [...] patient's HPI, labs, xrays, and evaluated the automotive service consultant's notes and agree with the assessment as documented below. I have spent no less than 30 minutes involved in the care and evaluation of the patient; >50% ofthis time was spent in counseling and/or coordination of care for this patient. Lorna Fontenot MD - Trauma and Acute Care Surgery - Pager: [phone] *If unable to reach me, please call the mult au matic operator and ask for the On-Call Trauma Surgeon* * Kiana Gill Occupational Therapist - 11/07/2019 10:08 AM CDT Patient/Community Director Visit Coordinated with health care team to facilitate communication between patient and family/support person. Patient declined video/phone conference. Patient declined further assistance with family support person communication. KELLEN Rogers, OTR/L Pediatric Occupational Therapist [facility] [address] [place] [address] * Jackson Crenshaw MD - 11/07/2019 9:17 AM CDT [facility] Resident Progress Note Patient Name: Lis Zhane Supervising Resident: Josafat Attending Physician: Ashley Helms [...] related; Cont to monitor Diabetes mellitus without fine grade operator use of Insulin ?? LIQUID LOADER meformin held during hospital stay; Correctional slide and accu checks Chronic/Stable/Resolved Problems: GERD- Eosinophilic Esophagitis - Continue LIQUID LOADER PPI ?? Hx Biliary Dyskinesia - HIDA scan reported EF 25% 04/2019 from [facility] in [place], [place] - Surgery consulted, appreciate recommendations ?? MDD/MARISABEL - Continue LIQUID LOADER Wellbutrin and Zoloft ?? Obesity BMI 40.35 [...] Subjective/Overnight Pain significantly improved and controlled without CONE MARKER. Tolerating clear liquids in AM and drain [...] GLUCOSE 134* BUN 8 CREAT 0.41* Jackson Terry Crenshaw MD 11/07/2019 9:17 AM I discussed the assessment of plan for the above patient with Ashley Pinto MD This note was transcribed using BodyMedia naturally speaking computerized voice recognition without a human head turbine operator. This report may or may not have been adjusted for typographical, grammaticaland syntax errors. This patient is covered by internal medicine residents To reach Internal Medicine covered patients: Thursday-Thursday 7 AM- 7 PM: Please contact the resident via secure chat. The resident responsible for the patient will be on the Treatment Team listed as Resident If no response you may call the tool honing machine set up operator copywriting intern at zone phone [phone]. If no response you may call the tool honing machine set up operator senior resident at zone phone [phone] If no response please contact the attending of record via secure chat. 7 PM to 7 AM: The long call/night float resident should be listed as Resident on the treatment team and can be reached via secure chat. If no response you may call the tool honing machine set up operator copywriting intern at zone phone [phone]. If no response you may call the tool honing machine set up operator senior resident at zone phone [phone] If no response please contact the Rapid [...] secure chat. If no response call the tool honing machine set up operator copywriting intern at zone phone [phone]. If no response you may call the tool honing machine set up operator senior resident at zone phone [phone] If no response please contact the Rapid Access Hospitalist via secure chat Associated attestation - Ashley Helms MD - 11/07/2019 2:59 PM CDT [facility] Adult Hospitalist Attending Note I reviewed the [...] DIABETIC Ashley Helms MD 11/07/2019 2:52 PM [facility] minutes were spent [...] If no response you may call the tool honing machine set up operator copywriting intern at zone phone [phone]. If no response you may call the tool honing machine set up operator senior resident at zone phone [phone] If no response please contact the attending of record via secure chat. 7 PM to 7 AM: The long call/night float resident should be listed as Resident on the treatment team and can be reached via secure chat. If no response you may call the tool honing machine set up operator copywriting intern at zone phone [phone]. If no response you may call the tool honing machine set up operator senior resident at zone phone [phone] Thursday and Thursday: 7 AM-12 PM: Please contact the resident via secure chat. The resident responsible for the patient will be on the Treatment Team listed as Resident 12 PM-7 AM: The long call/night float resident should be listed as Resident on the treatment teamand can be reached via secure chat. If no response call the tool honing machine set up operator copywriting intern at zone phone [phone]. If no response you may call the tool honing machine set up operator senior resident at zone phone [phone] If no response please contact the Rapid Access Hospitalist via secure chat. * Sherrell Cole MD - 11/07/2019 6:29 AM CDT [facility] GENERAL SURGERY 11/07/2019 Sherrell Cole MD HPI: 34 y.o. s/p open cholecystectomy with small bowel resection and stapled qbra-up-mpda anastomosis on November 02. November 05: NGT [...] unable to reach me, please call the mult au matic operator and ask for the On-Call Trauma [...] patient's HPI, labs, xrays, and evaluated the automotive service consultant's notes and agree with the assessment as documented below. I have spent no less than 35 minutes involved in the care and evaluation of the patient; >50% ofthis time was spent in counseling and/or coordination of care for this patient. Lorna Fontenot MD - Trauma and Acute Care Surgery - Pager: [phone] *If unable to reach me, please call the mult au matic operator and ask for the On-Call Trauma Surgeon* * Ashley Helms MD - 11/06/2019 2:13 PM CDT [facility] Ad[facility] Date: [...] drain and NGT management per surgery -d/c CONE MARKER and provide prns -GERD - continue iv [...] Cole MD - 11/06/2019 10:37 AM CDT [facility] GENERAL SURGERY 11/06/2019 Sherrell Cole MD HPI: 34 y.o. s/p open cholecystectomy with small bowel resection and stapled fvyc-am-gvoy anastomosis on November 02. Active Hospital Problems [...] unable to reach me, please call the mult au matic operator and ask for the On-Call Trauma [...] Helms MD - 11/05/2019 12:57 PM CDT [facility] Admit Date: [...] drain and NGT management per surgery -wean CONE MARKER as tolerated -GERD - continue iv ppi [...] Wheeler MD - 11/05/2019 8:52 AM CDT [facility] GENERAL SURGERY 11/05/2019 ALLAN WHEELER MD HPI: 34 y.o. s/p open cholecystectomy on November 02. Active Hospital Problems Diagnosis ??? Right upper quadrant abdominal pain ??? Acute calculous cholecystitis ??? History of gastroschisis Resolved Hospital Problems No resolved problems to display. Complaints: Pain overnight requiring morphine CONE MARKER LFTs WNL 11/04/2019 AM Review of Systems: [...] AM of POD 2 ord d/c today 11/04 - Nutrition: Current Diet and/or Nutritional Supplementation ordered: DIET NPO I have reviewed this patient's history and physical, family history, acute and chronic diagnoses, all pertinent notes, vitals, labs, medications and images during my development of the above assessment and plan. Disposition: Continue inpatient care ALLAN WHEELER MD, 11/05/2019 8:52 AM *If unable to reach me, please call the mult au matic operator and ask for the On-Call Trauma Surgeon* * Flores Ruelas, Physical Therapist - 11/04/2019 11:50 AM CDT Patient/Community Director Visit Coordinated with health care team to facilitate communication between patient and family/support person. Patient declined video/phone conference. Will continue to provide support via Patient/Community Director rounding. * Sherrell Cole MD - 11/04/2019 8:59 AM CDT [facility] GENERAL SURGERY 11/04/2019 Sherrell Cole MD HPI: 34 y.o. s/p open cholecystectomy on November 02. Active Hospital Problems Diagnosis ??? Right upper quadrant abdominal pain ??? Acute calculous cholecystitis ??? History of gastroschisis Resolved Hospital Problems No resolved problems to display. Complaints: Pain overnight requiring morphine CONE MARKER LFTs WNL this AM Review of Systems: [...] unable to reach me, please call the mult au matic operator and ask for the On-Call Trauma [...] as mobile as possible. I will d/c ordonez tomorrow AM as she is not moving [...] - Antibiotics: Zosyn 3.375g q6h -Analgesic: Morphine CONE MARKER - IVF: LR at 75 mL/h continuous -MRCP without evidence of ductal filling defect, stricture, periampullary mass -Protonix 40 mg IV daily New Onset HTN -likely pain related Chronic/Stable/Resolved Problems: Eosinophilic Esophagitis - Continue LIQUID LOADER PPI ?? Hx Biliary Dyskinesia - HIDA scan reported EF 25% 04/2019 from [facility] in [place], [place] - NPO for now - Surgery consulted, appreciate recommendations ?? MDD/MARISABEL - Continue LIQUID LOADER Wellbutrin and Zoloft ?? Obesity BMI 40.35 [...] 2-3 days Subjective/Overnight on-going RUQ tenderness, on CONE MARKER Objective BP (!) 144/86 (BP Location: Right [...] Pinto MD This note was transcribed using Analiza speaking computerized voice recognition without a human head turbine operator. This report may or may not have been adjusted for typographical, grammaticaland syntax errors. This patient is covered by internal medicine residents To reach Internal Medicine covered patients: Thursday-Thursday 7 AM- 7 PM: Please contact the resident via secure chat. The resident responsible for the patient will be on the Treatment Team listed as Resident If no response you may call the tool honing machine set up operator copywriting intern at zone phone [phone]. If no response you may call the tool honing machine set up operator senior resident at zone phone [phone] If no response please contact the attending of record via secure chat. 7 PM to 7 AM: The long call/night float resident should be listed as Resident on the treatment team and can be reached via secure chat. If no response you may call the tool honing machine set up operator copywriting intern at zone phone [phone]. If no response you may call the tool honing machine set up operator senior resident at zone phone [phone] If no response please contact the Rapid [...] secure chat. If no response call the tool honing machine set up operator copywriting intern at zone phone [phone]. If no response you may call the tool honing machine set up operator senior resident at zone phone [phone] If no response please contact the Rapid Access Hospitalist via secure chat Associated attestation - Ashley Helms MD - 11/05/2019 8:16 AM CDT [facility] Adult Hospitalist Attending Note I reviewed the [...] pain is now better controlled with the CONE MARKER I have reviewed the physical exam findings [...] NPO Ashley Helms MD 11/05/2019 8:13 AM [facility] Approximately 30 minutes were spent [...] If no response you may call the tool honing machine set up operator copywriting intern at zone phone [phone]. If no response you may call the tool honing machine set up operator senior resident at zone phone [phone] If no response please contact the attending of record via secure chat. 7 PM to 7 AM: The long call/night float resident should be listed as Resident on the treatment team and can be reached via secure chat. If no response you may call the tool honing machine set up operator copywriting intern at zone phone [phone]. If no response you may call the tool honing machine set up operator senior resident at zone phone [phone] Thursday and Thursday: 7 AM-12 PM: Please contact the resident via secure chat. The resident responsible for the patient will be on the Treatment Team listed as Resident 12 PM-7 AM: The long call/night float resident should be listed as Resident on the treatment teamand can be reached via secure chat. If no response call the tool honing machine set up operator copywriting intern at zone phone [phone]. If no response you may call the tool honing machine set up operator senior resident at zone phone [phone] If no response please contact the Rapid [...] general surgery resident. Orders placed for morphine CONE MARKER pump by general surgery. Please do not hesitate to call back if there are any other concerns. Jennifer Doe DO Internal Medicine, PGY1 This patient is covered by internal medicine residents To reach Internal Medicine covered patients: Thursday-Thursday 7 AM- 5 PM: Via secure text, if resident does not answer please page via the Can'tWait E-List 5 PM-7 AM: Via secure text (tool honing machine set up operator copywriting intern will place themselves on the treatment team). If the resident does not answer call the zone phone [phone]. If no response please page the senior resident at [phone] Thursday and Thursday: 7 AM-12 PM: Via secure text, if resident does not answer please page via the Can'tWait E-List 12 PM-7 AM: Via secure text (tool honing machine set up operator copywriting intern will place themselves on the treatment team). If the resident does not answer call the zone phone [phone]. If no response please page the senior resident [phone] If no response to the above steps in 10 minutes, please page the attending physician via secure text or via the Oesia-list. * Allan Wheeler MD - 11/03/2019 6:55 AM CDT Images from the original note were not included. DATE: 11/03/2019 NAME: Lis Phelan : 1985 CSN: [id number] [facility] General Surgery Progress Note Last 24 [...] 11/03/2019 6:55 AM TACS Resident On-Call Pager [phone].[facility] TACS Attending On-Call - please refer to Trauma and Acute Care Surgery (TACS) page on [facility] website Admit Date: 11/01/2019 LOS: 1 day [...] Believes her last surgery was done at [facility]. Allergies Allergen Reactions ??? Chantix [Varenicline] Anaphylaxis ??? Metronidazole Nausea and Vomiting Other reaction(s): Vomiting ??? Demerol [Meperidine] Swelling ??? Tramadol Hives Current Facility-Administered Medications: ??? polyethylene glycol (MIRALAX) packet 17 Gram, 17 Gram, Oral, Daily PRN, NusplJennifer, DO, 17 Gram at 11/03/19 0124 ??? [...] Nuspl, Jennifer E, DO, 2 mg at 11/02/19 1718 ??? buPROPion HCL (WELLBUTRIN XL) SR 24 hour tablet 150 mg, 150 mg, Oral, Daily EARLY, Nuspl Jennifer E, DO, 150 mg at 11/01/19 0649 ??? pantoprazole (PROTONIX) tablet 40 mg, 40 mg, Oral, Daily, Nuspl, Jennifer E, DO, 40 mg at 11/02/19 1222 ??? sertraline (ZOLOFT) tablet 100 mg, 100 mg, Oral, Daily, Nuspl, Jennifer E, DO, 100 mg at 11/02/19 1221 ??? naloxone (NARCAN) 0.4 mg/mL injection 0.1 mg, 0.1 mg, IV, See Admin Notes, Jennifer Doe DO ??? acetaminophen (TYLENOL) tablet 650 mg, 650 mg, Oral, q 6 hour PRN, Nuspl Jennifer E, DO, 650 mg at11/02/19 1222 ??? ondansetron (ZOFRAN ODT) tablet 4 mg, 4 mg, Oral, q 6 hour PRN, Nuspl Jennifer E, DO, 4 mg at 11/02/19 1718 ??? [...] HX SURGICAL OTHER 04/2004 adhesion removed ??? IN ESOPHAGOGASTRODUODENOSCOPY TRANSORAL DIAGNOSTIC N/A 05/17/2019 ESOPHAGOGASTRODUODENOSCOPY performed by Jena Cerda MD at [facility] Family History Problem [...] level: Not on file Occupational History Employer: [employer] Social Needs ??? Financial resource strain: [...] file Gets together: Not on file Attends muslim service: Not on file Active member of [...] 99 mg/dL COMMENT, GLU POC Notified RN/MD POSTDOCTORAL FELLOW NAME SANDRA SANCHEZ MRSA PCR RAPID SCREEN Result Value Ref Range MRSA PCR RESULT MRSA not detected MRSA not detected POC GLUCOSE Result Value Ref Range POC GLUCOSE 88 74 - 99 mg/dL COMMENT, GLU POC Notified RN/MD POSTDOCTORAL FELLOW NAME SANDRA SANCHEZ POC GLUCOSE Result Value Ref Range POC GLUCOSE 98 74 - 99 mg/dL COMMENT, GLU POC Notified RN/MD POSTDOCTORAL FELLOW NAME SRIRAM ISIDRO POC GLUCOSE Result Value Ref Range POC GLUCOSE 90 74 - 99 mg/dL POSTDOCTORAL FELLOW NAME SRIRAM ISIDRO POC GLUCOSE Result Value Ref Range POC GLUCOSE 103 (H) 74 - 99 mg/dL POSTDOCTORAL FELLOW NAME SRIRAM ISIDRO I attest that I [...] consulted-- requested that we obtain records from [facility], however [facility] states pt did not have her mesh placed there. They do have records of operative management for intra-abdominal abscess. Requested these records -Had MRCP yesterday without evidence of ductal filling defect, stricture, periampullary mass -Status post open cholecystectomy with small bowel resection and repair 11/03/2019 -Protonix 40 mg IV daily New Onset HTN -likely pain related Chronic/Stable/Resolved Problems: Eosinophilic Esophagitis - Continue LIQUID LOADER PPI ?? Hx Biliary Dyskinesia - HIDA scan reported EF 25% 04/2019 from [facility] in [place], [place] - NPO for now - Surgery consulted, appreciate recommendations ?? MDD/MARISABEL - Continue LIQUID LOADER Wellbutrin and Zoloft ?? Obesity BMI 40.35 [...] Pinto MD This note was transcribed using Analiza speaking computerized voice recognition without a human head turbine operator. This report may or may not have been adjusted for typographical, grammaticaland syntax errors. This patient is covered by internal medicine residents To reach Internal Medicine covered patients: Thursday-Thursday 7 AM- 7 PM: Please contact the resident via secure chat. The resident responsible for the patient will be on the Treatment Team listed as Resident If no response you may call the tool honing machine set up operator copywriting intern at zone phone [phone]. If no response you may call the tool honing machine set up operator senior resident at zone phone [phone] If no response please contact the attending of record via secure chat. 7 PM to 7 AM: The long call/night float resident should be listed as Resident on the treatment team and can be reached via secure chat. If no response you may call the tool honing machine set up operator copywriting intern at zone phone [phone]. If no response you may call the tool honing machine set up operator senior resident at zone phone [phone] If no response please contact the Rapid [...] secure chat. If no response call the tool honing machine set up operator copywriting intern at zone phone [phone]. If no response you may call the tool honing machine set up operator senior resident at [facility] phone [phone] If no response please contact the Rapid Access Hospitalist via secure chat Associated attestation - Ashley Helms MD - 11/04/2019 4:35 PM CDT [facility] Hospitalist Attending Note I reviewed the medical [...] NPO Ashley Helms MD 11/04/2019 4:29 PM [facility] 30 minutes were spent [...] If no response you may call the tool honing machine set up operator copywriting intern at zone phone [phone]. If no response you may call the tool honing machine set up operator senior resident at zone phone [phone] If no response please contact the attending of record via secure chat. 7 PM to 7 AM: The long call/night float resident should be listed as Resident on the treatment team and can be reached via secure chat. If no response you may call the tool honing machine set up operator copywriting intern at zone phone [phone]. If no response you may call the tool honing machine set up operator senior resident at zone phone [phone] Thursday and Thursday: 7 AM-12 PM: Please contact the resident via secure chat. The resident responsible for the patient will be on the Treatment Team listed as Resident 12 PM-7 AM: The long call/night float resident should be listed as Resident on the treatment teamand can be reached via secure chat. If no response call the tool honing machine set up operator copywriting intern at zone phone [phone]. If no response you may call the tool honing machine set up operator senior resident at zone phone [phone] If no response please contact the Rapid Access Hospitalist via secure chat. * Jennifer Doe DO - 11/03/2019 1:15 AM CDT Brief Cross-Cover Note Received call from nurse regarding: patient has not had bowel movement since dose of mag citrate [id number]. Reviewed chart. Offered Miralax or enema- patient [...] does not answer please page via the Can'tWait E-List 5 PM-7 AM: Via secure text (tool honing machine set up operator copywriting intern will place themselves on the treatment team). If the resident does not answer call the zone phone [phone]. If no response please page the senior resident at [phone] Thursday and Thursday: 7 AM-12 PM: Via secure text, if resident does not answer please page via the [facility] 12 PM-7 AM: Via secure text (tool honing machine set up operator copywriting intern will place themselves on the treatment team). If the resident does not answer call the zone phone [phone]. If no response please page the senior resident [phone] If no response to the above steps in 10 minutes, please page the attending physician via secure text or via the [facility] Hospitalist E-list. * Valdez Solis MD - 11/02/2019 1:54 PM CDT [facility] Resident Progress Note Patient Name: Lis [...] consulted-- requested that we obtain records from [facility], however [facility] states pt did not have her mesh placed there. They do have records of operative management for intra-abdominal abscess. Requested these records -MRCP today, NPO@midnight likely OR tomorrow New Onset HTN -likely pain related Chronic/Stable/Resolved Problems: Eosinophilic Esophagitis - Continue LIQUID LOADER PPI ?? Hx Biliary Dyskinesia - HIDA scan reported EF 25% 04/2019 from [facility] in [place], [place] - NPO for now - Surgery consulted, appreciate recommendations ?? MDD/MARISABEL - Continue LIQUID LOADER Wellbutrin and Zoloft ?? Obesity BMI 40.35 [...] Pinto MD This note was transcribed using [employer] computerized voice recognition without a human head turbine operator. This report may or may not have been adjusted for typographical, grammaticaland syntax errors. This patient is covered by internal medicine residents To reach Internal Medicine covered patients: Thursday-Thursday 7 AM- 7 PM: Please contact the resident via secure chat. The resident responsible for the patient will be on the Treatment Team listed as Resident If no response you may call the tool honing machine set up operator copywriting intern at zone phone [phone]. If no response you may call the tool honing machine set up operator senior resident at zone phone [phone] If no response please contact the attending of record via secure chat. 7 PM to 7 AM: The long call/night float resident should be listed as Resident on the treatment team and can be reached via secure chat. If no response you may call the tool honing machine set up operator copywriting intern at zone phone [phone]. If no response you may call the tool honing machine set up operator senior resident at zone phone [phone] If no response please contact the Rapid [...] secure chat. If no response call the tool honing machine set up operator copywriting intern at zone phone [phone]. If no response you may call the tool honing machine set up operator senior resident at zone phone [phone] If no response please contact the Rapid Access Hospitalist via secure chat Associated attestation - Ashley Helms MD - 11/03/2019 8:00 AM CDT [facility] Adult Hospitalist Attending Note I reviewed the [...] NPO Ashley Helms MD 11/03/2019 7:[address] [facility] Hospitalist Approximately 30 minutes were spent [...] If no response you may call the tool honing machine set up operator copywriting intern at zone phone [phone]. If no response you may call the tool honing machine set up operator senior resident at zone phone [phone] If no response please contact the attending of record via secure chat. 7 PM to 7 AM: The long call/night float resident should be listed as Resident on the treatment team and can be reached via secure chat. If no response you may call the tool honing machine set up operator copywriting intern at zone phone [phone]. If no response you may call the tool honing machine set up operator senior resident at zone phone [phone] Thursday and Thursday: 7 AM-12 PM: Please contact the resident via secure chat. The resident responsible for the patient will be on the Treatment Team listed as Resident 12 PM-7 AM: The long call/night float resident should be listed as Resident on the treatment teamand can be reached via secure chat. If no response call the tool honing machine set up operator copywriting intern at zone phone [phone]. If no response you may call the tool honing machine set up operator senior resident at [facility] phone [phone] If no response please contact the Rapid Access Hospitalist via secure chat. * Sherrell Cole MD - 11/02/2019 6:16 AM CDT Images from the original note were not included. DATE: 11/02/2019 NAME: Lis Phelan : 1985 CSN: [id number] [facility] General Surgery Progress Note Last 24 [...] 11/02/2019 6:17 AM TACS Resident On-Call Pager [phone].TACS TACS Attending On-Call - please refer to Trauma and Acute Care Surgery (TACS) page on [facility] website Admit Date: 11/01/2019 LOS: 0 days [...] Believes her last surgery was done at [facility]. Allergies Allergen Reactions ??? Chantix [Varenicline] Anaphylaxis [...] mg, IV, q 4 hour PRN, Jennifer Doe, DO, 2 mg at 11/01/19 1742 ??? buPROPion HCL (WELLBUTRIN XL) SR 24 hour tablet 150 mg, 150 mg, Oral, Daily EARLY, NusplJennifer E, DO, 150 mg at 11/01/19 0649 ??? pantoprazole (PROTONIX) tablet 40 mg, 40 mg, Oral, Daily, Nuspl Jennifer E, DO, 40 mg at 11/01/19 0930 ??? sertraline (ZOLOFT) tablet 100 mg, 100 mg, Oral, Daily, Yanetspraleigh Jennifer E, DO, 100 mg at 11/01/19 0930 ??? naloxone (NARCAN) 0.4 mg/mL injection 0.1 mg, 0.1 mg, IV, See Admin Notes, Jennifer Doe DO ??? acetaminophen (TYLENOL) tablet 650 mg, 650 mg, Oral, q 6 hour PRN, Nuspl Jennifer E, DO ??? ondansetron (ZOFRAN ODT) tablet 4 mg, 4 mg, Oral, q 6 hour PRN, Nuspl Jennifer E, DO, 4 mg at 11/01/19 1742 ??? [...] HX SURGICAL OTHER 04/2004 adhesion removed ??? IN ESOPHAGOGASTRODUODENOSCOPY TRANSORAL DIAGNOSTIC N/A 05/17/2019 ESOPHAGOGASTRODUODENOSCOPY performed by Jena Cerda MD at [facility] GI [facility] Family History Problem [...] level: Not on file Occupational History Employer: [employer] Social Needs ??? Financial resource strain: Not [...] file Gets together: Not on file Attends muslim service: Not on file Active member of [...] GLUCOSE 101 (H) 74 - 99 mg/dL POSTDOCTORAL FELLOW NAME SHAHID BHAKTA POC GLUCOSE Result Value Ref Range POC GLUCOSE 103 (H) 74 - 99 mg/dL POSTDOCTORAL FELLOW NAME SHAHID BHAKTA POC GLUCOSE Result Value Ref Range POC GLUCOSE 92 74 - 99 mg/dL POSTDOCTORAL FELLOW NAME ZAHRA GREGORY POC GLUCOSE Result Value Ref Range POC GLUCOSE 114 (H) 74 - 99 mg/dL COMMENT, GLU POC Notified RN/MD POSTDOCTORAL FELLOW NAME LUH, EDER POC GLUCOSE Result Value Ref Range POC GLUCOSE 138 (H) 74 - 99 mg/dL COMMENT, GLU POC Notified RN/MD POSTDOCTORAL FELLOW NAME LUH, EDER POC GLUCOSE Result Value Ref Range POC GLUCOSE 100 (H) 74 - 99 mg/dL COMMENT, GLU POC Notified RN/MD POSTDOCTORAL FELLOW NAME EDER ARVIZU Sherrell Cole MD Associated [...] consulted-- requested that we obtain records from [facility], no surgery today -[facility] states pt did not have her mesh placed there. They do have records of operative management for intra-abdominal abscess. Requested these records -Pt states she may have had procedure at [facility]-- called and left message but office currently closed ?? Eosinophilic Esophagitis - Continue LIQUID LOADER PPI ?? Hx Biliary Dyskinesia - HIDA scan reported EF 25% 04/2019 from [facility] in [place], [place] - NPO for now - Surgery consulted, appreciate recommendations ?? MDD/MARISABEL - Continue LIQUID LOADER Wellbutrin and Zoloft ?? Obesity BMI 40.35 New Onset HTN -likely pain related Chronic/Stable/Resolved Problems: Eosinophilic Esophagitis - Continue LIQUID LOADER PPI ?? Hx Biliary Dyskinesia - HIDA scan reported EF 25% 04/2019 from [facility] in [place], [place] - NPO for now - Surgery consulted, appreciate recommendations ?? MDD/MARISABEL - Continue LIQUID LOADER Wellbutrin and Zoloft ?? Obesity BMI 40.35 [...] Pinto MD This note was transcribed using [employer] speaking computerized voice recognition without a human head turbine operator. This report may or may not have been adjusted for typographical, grammaticaland syntax errors. This patient is covered by internal medicine residents To reach Internal Medicine covered patients: Thursday-Thursday 7 AM- 7 PM: Please contact the resident via secure chat. The resident responsible for the patient will be on the Treatment Team listed as Resident If no response you may call the tool honing machine set up operator copywriting intern at zone phone [phone]. If no response you may call the tool honing machine set up operator senior resident at zone phone [phone] If no response please contact the attending of record via secure chat. 7 PM to 7 AM: The long call/night float resident should be listed as Resident on the treatment team and can be reached via secure chat. If no response you may call the tool honing machine set up operator copywriting intern at zone phone [phone]. If no response you may call the tool honing machine set up operator senior resident at zone phone [phone] If no response please contact the Rapid [...] secure chat. If no response call the tool honing machine set up operator copywriting intern at zone phone [phone]. If no response you may call the tool honing machine set up operator senior resident at zone phone [phone] If no response please contact the Rapid Access Hospitalist via secure chat documented in this encounter H&P Notes * Jennifer Doe DO - 11/01/2019 4:26 AM CDT [facility] Internal Medicine Teaching Service History & Physical [...] HX SURGICAL OTHER 04/2004 adhesion removed ??? 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 etonogestrel (IMPLANON SDRM) Yes No Sig: by [...] or wheezing Cardiac: No CP, SOB,HX of MD, or angina GI: No n/v, no abdominal [...] Narrative THIS IS A PRELIMINARY REPORT FROM [facility] PROCEDURE INFORMATION: Exam: CT Abdomen And Pelvis [...] consulted, appreciate recommendations Eosinophilic Esophagitis - Continue LIQUID LOADER PPI Hx Biliary Dyskinesia - HIDA scan reported EF 25% 04/2019 from [facility] in [place], [place] - NPO for now - Surgery consulted, appreciate recommendations MDD/MARISABEL - Continue LIQUID LOADER Wellbutrin and Zoloft Obesity BMI 40.35 DVT [...] the above patient with MD Jennifer Yung, 11/01/2019 4:26 AM. Plan discussed with the patient, questions answered; patient agrees with current plan. More than 50 minutes were spent in the care of this patient today Abdominal Pain pathway initiated This note was transcribed using [employer] naturally speaking computerized voice recognition without a human head turbine operator. This report may or may not have been adjusted for typographical, grammaticaland syntax errors. This patient is covered by internal medicine residents To reach Internal Medicine covered patients: Thursday-Thursday 7 AM- 7 PM: Please contact the resident via secure chat. The resident responsible for the patient will be on the Treatment Team listed as Resident If no response you may call the tool honing machine set up operator copywriting intern at zone phone [phone]. If no response you may call the tool honing machine set up operator senior resident at zone phone [phone] If no response please contact the attending of record via secure chat. 7 PM to 7 AM: The long call/night float resident should be listed as Resident on the treatment team and can be reached via secure chat. If no response you may call the tool honing machine set up operator copywriting intern at zone phone [phone]. If no response you may call the tool honing machine set up operator senior resident at zone phone [phone] If no response please contact the Rapid [...] secure chat. If no response call the tool honing machine set up operator copywriting intern at zone phone [phone]. If no response you may call the tool honing machine set up operator senior resident at zone phone [phone] If no response please contact the Rapid Access Hospitalist via secure chat Associated attestation - Shobha Choi MD - 11/01/2019 6:16 AM CDT [facility] Adult Hospitalist Attending Note I reviewed the [...] of gastroschisis s/p 3 intraabdominal surgeries (last [id number] for adhesion lysis), diabetes, asthma, depression, eosinophilic [...] RUQ US - Surgery consulted. 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 Shobha Choi MD [facility] Hospitalist For patients admitted by myself between 9pm-7am, please contact me via [employer] secure message with anyquestions or concerns. Outside above hours, the attending has changed, contact attending listed in epic or locate patient on the hospitalist e-list and contact the current attending. documented in this encounter Consult Notes * Allan Wheeler MD - 11/01/2019 8:44 AM CDTAssociated Order(s): IP CONSULT TO GENERAL SURGERY Images from the original note were not included. DATE: 11/01/2019 NAME: Lis Phelan : 1985 CSN: [id number] I attest that I was present and [...] Supplementation ordered: DIET NPO ALLAN WHEELER MD [facility] General Surgery H&P/Consult ASSESSMENT/PLAN: Lis Phelan is a [...] 11/01/2019 8:45 AM TACS Resident On-Call Pager [phone].TACS TACS Attending On-Call - please refer to Trauma and Acute Care Surgery (TACS) page on [facility] website Subjective: Chief Complaint Patient presents with [...] Believes her last surgery was done at [facility]. Allergies Allergen Reactions ??? 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 30 Tablet 0 10/31/2019 at 0800 ??? [...] HX SURGICAL OTHER 04/2004 adhesion removed ??? IN ESOPHAGOGASTRODUODENOSCOPY TRANSORAL DIAGNOSTIC N/A 05/17/2019 ESOPHAGOGASTRODUODENOSCOPY performed by Jena Cerda MD at [facility] GI [facility] Family History Problem [...] level: Not on file Occupational History Employer: [employer] Social Needs ??? Financial resource strain: Not [...] file Gets together: Not on file Attends muslim service: Not on file Active member of [...] Ref Range HCG QUAL URINE Negative Negative POSTDOCTORAL FELLOW NAME TONIO MALCOLM POC SPECIFIC GRAVITY UA [...] Wheeler MD - 11/03/2019 10:01 PM CDT [place], [place] [address] Operative Report CSN: [id number] DATE OF SERVICE: 11/03/2019 SURGEON Allan Wheeler [...] enterotomy and subsequent repair. ANESTHESIA General endotracheal. CASINO GAMING WORKER Sherrell Cole. OPERATIVE NOTE The patient was [...] hemorrhage with cautery and Tisseel. ALP:MEDQ DID: [id number] Dictated by: Allan Wheeler MD * Operative Report - Allan Wheeler MD - 11/03/2019 11:44 AM CDT 11/03/2019DOS Lis Phelan [id number] Pre Op Diagnosis: Cholelithiasis biliary colic gallstones [...] Wheeler MD, F.A.C.S. Trauma and General Surgery [id number] documented in this encounter ED Notes * [...] AM CDT HISTORY OF PRESENT ILLNESS Lis Phelna, a 34 y.o. female presents to the [...] cm) (11/01/192), Weight: 113.4 kg (250 lb) (05/12/20 0003), BMI (Calculated): 40.37 (11/01/19 0003) No LMP recorded. Patient has had an [...] POC , URINE HCG QUAL URINE Negative POSTDOCTORAL FELLOW NAME TONIO MALCOLM POC SPECIFIC GRAVITY UA 1.020 POC , URINE RADIOLOGY: No orders to display CT ABDOMEN PELVIS W CONTRAST (Results Pending) CT ABDOMEN PELVIS W CONTRAST (In process) Result time 11/01/19 02:53:31 In process by Interface, [facility] Incoming Radiology Results (11/01/19 02:53:31) Narrative: [...] time. 3:08 AM: Discussed with Dr. Choi ([facility] Hospitalist) who will admit to Medical [...] Patient Name: Lis Phelan Admission Date: 11/01/2019 [facility] #: [id number] Dear Doctor, Please continue to document the [...] this coding query please contact me at * Query - Minal Arnold MD - 11/09/2019 2:32 PM CDT Please respond within 48 hours. Thank you! The authenticated query note is part of the Legal Health Record Patient Name: Lis Phelan Admission Date: 11/01/2019 Hospital [facility] #: [id number] Dear Doctor, Clinical indicators and/or treatment for [...] The average wall thickness is 0.2 cm. Correctional Security Officer sections are submitted as follows: B1-bowel margin closest to defect, en face; B2-opposite bowel margin, en face; X8-fned-aupmytava defect (edge of defect inked blue). Microscopic [...] query please contact: Faye Davidson RN,BSN, Medical Solar Manager [facility] Medical Solar Manager Internal Pool [phone] [email or web address] * Care Plan - Mary Shah GN [...] or increased pain. Patient walkedonce with RN SBA this date around unit and multiple times in room independent. Patient void and hadmultiple BM's this date. Patients VSS. Day 1 - Current ([facility]) Patient, family, or healthcare designee is participating in individual care plan process Outcome: Met Day 1 - Current ([facility]) Patient, family, or healthcare designee understands side effects of medications Outcome: Met * Care Plan - Sanjuana Evans RN - 11/07/2019 6:14 AM CDT -Pt voiced only 2/10 pain level throughout shift. She did note that after laying in bed sleeping for awhile her abdomen was more sore with movement, but improved as she moved around. -Pt walked to [facility] this shift x1 -Pt reported decent BM [...] bathroom. Pt complained of very mild pain- CONE MARKER pump discontinued. NGT clamped off this AM [...] control management per nursing. Outcome: Progressing Kellen Rayo, RN, MSN, CRRN [phone] * Care Plan - Sanjuana Evans RN [...] w ambulation noted. Pt remains on Morphine CONE MARKER pump. Additionally, ice packs were applied to [...] pain intervention: Appeared content Living Situation/Functional Level LIQUID LOADER: Pt lives with spouse and four children [...] chart. Debbi Uriostegui MS, OTR/L Zone #: [id number] On weekends--please call [phone] * Care Plan - Sanjuana Evans RN - 11/05/2019 5:40 AM CDT -Pt having right sided abdominal pain this shift. CONE MARKER pump with no issues. -LENA drain checked q4, only drained x1 this shift -NG tube in place with no issues, set to intermittent suction. Flushed q4 -IVF infusing throughout shift -Ordonez with no complaints, ordonez care done and charted. -Pt up to [facility], thought she needed to have a BM, [...] Pt c/o of pain was treated w CONE MARKER morphine and ice packs. Sore throat treated [...] bedside. Notified surgery resident who ordered morphine CONE MARKER pump. Pain appears to be better controlled [...] had some nausea with vomiting; medicated per MAR. * Care Plan - Graciela Sánchez RN [...] complaints of nausea, relief with zofran per MAR. Also complaints of abdominal pain, relief with IV medication per MAR. Does not tolerate clear liquid diet well, [...] continue to follow for discharge planning. [place] LCSW X [phone] Day 1 - Current ([facility]) Patient, family, or [...] nausea relieved with prn meds per the AUG. VSS and pt ambulated without difficulty. Pt NPO in preparation for procedure. Undress and Assess performed by the following two coworkers: Graciela MATAMOROS & Carissa CONE MARKER Admission or upon transfer to:[facility] ~~~~~~~~~~~~~~~~~~~~~~~~~~~~ Is the patient a paraplegic/quadriplegic? N [...] initiated. Is there skin breakdown under any Skylights Assembler (splint, ETT hearn, c-collar)? If yes, please [...] with patient. * Treatment Plan - Francis Matos RT - 11/01/2019 1:52 AM CDT ?STL IMS CT MRI Medication and Flush Protocol [facility] Approved by: [facility] - Medical Executive Committee Approval Date: 01/06/2019 [...] procedure. ??? If at any time the Lubrication Equipment Servicer has a question about which option to [...] Contact Info) Description 06/20/2024 9:30 AM HEALTH INFORMATION TECHNICIAN Office Visit [facility] Orthopedic Surgery at the [facility] [address] [place] [address] [place] [id number] [place] [address] 10/27/2024 2:45 PM CDT Office Visit [facility] Gastroenterology [address]ESH [address] [place] [address] Bebo Benites MD [address] [facility] [address] [place] [address] documented as of this encounter [...] (ABNORMAL) POC GLUCOSE (11/08/2019 7:51 AM CDT) [facility] Signature GLUCOSE POC 123(H) 74 - 99 mg/dL 11/08/2019 7:51 AM CDT [facility] COMMENT, GLU POC Notified RN/ 11/08/2019 7:51 AM CDT [facility] - [facility] POSTDOCTORAL FELLOW NAME POC KYRA WHITE 11/08/2019 7:51 AM CDT [facility] - [facility] Blood, whole 11/08/2019 7:51 AM CDT 11/08/2019 8:10 AM CDT Minal Arnold MD POINT OF CARE TESTIN G [facility] CLIA# [id number] [address] [place] [address] * (ABNORMAL) POC GLUCOSE (11/07/2019 10:45 PM CDT) GLUCOSE POC 117(H) 74 - 99 mg/dL 11/07/2019 10:45 PM CDT [facility] COMMENT, GLU POC Notified RN/ 11/07/2019 10:45 PM CDT [facility] - [facility] POSTDOCTORAL FELLOW NAME POC ELO BANERJEE 11/07/2019 10:45 PM CDT [facility] Blood, whole 11/07/2019 10:4 5 PM CDT 11/07/2019 11:04 PM CDT Ashley Helms MD POINT OF CARE TESTIN G [facility] CLIA# [id number] [address] [place] [address] * POC GLUCOSE (11/07/2019 6:15 PM CDT) GLUCOSE POC 94 74 - 99 mg/dL 11/07/2019 6:15 PM CDT [facility] POSTDOCTORAL FELLOW NAME POC ASHLEY WILLARD 11/07/2019 6:15 PM CDT [facility] Blood, whole 11/07/2019 6:15 PM CDT 11/07/2019 6:22 PM CDT Ashley Helms MD POINT OF CARE TESTKIM Keen Performing Organization Address [facility]/ZIP Co de Phone Number [facility] [id number] [address] [place] [address] * (ABNORMAL) POC GLUCOSE (11/07/2019 1:54 PM CDT) [facility] GLUCOSE POC 102(H) 74 - 99 mg/dL 11/07/2019 1:54 PM CDT [facility] POSTDOCTORAL FELLOW NAME POC ASHLEY WILLARD 11/07/2019 1:54 PM CDT [facility] Blood, whole 11/07/2019 1:54 PM CDT 11/07/2019 2:02 PM CDT Ashley Helms MD POINT OF CARE TESTKIM Keen Performing Organization Address [facility]/ZIP Co de Phone Number [facility] CLIA# [id number] [address] [place] [address] * (ABNORMAL) CBC WITH DIFFERENTIAL (11/07/2019 8:17 AM CDT) [facility] WBC 7.4 4.0 - 9.8 K/uL 11/07/2019 8:48 AM CDT [facility] RBC 4.18 3.90 - 4.90 M/uL 11/07/2019 8:48 AM CDT [facility] HEMOGLOBIN 12.8 11.8 - 14.8 g/dL 11/07/2019 8:48 AM CDT [facility] HEMATOCRIT 38.9 35.5 - 44.0 % 11/07/2019 8:48 AM CDT [facility] MCV 93.1 82.0 - 99.0 fL 11/07/2019 8:48 AM CDT [facility] MCH 30.6 27.2 - 32.6 pg 11/07/2019 8:48 AM CDT [facility] - [facility] MCHC 32.9 31.5 - 35.5 g/dL 11/07/2019 8:48 AM CDT [facility] RDW 13.3 11.5 - 14.5 % 11/07/2019 8:48 AM CDT [facility] RDW-STDEV 45.1 37.1 - 48.7 fL 11/07/2019 8:48 AM [employer] [place] PLATELETS 269 140 - 350 K/uL 11/07/2019 8:48 AM CDT [facility] MPV 9.5 9.3 - 12.4 fL 11/07/2019 8:48 AM [employer] [place] NEUTROPHILS 70 % 11/07/2019 8:48 AM [facility] - [facility] LYMPHOCYTES 19 % 11/07/2019 8:48 AM [facility] MONOCYTES 5 % 11/07/2019 8:48 AM [facility] EOSINOPHILS 4 % 11/07/2019 8:48 AM [facility] BASOPHILS 1 % 11/07/2019 8:48 AM [facility] IMMATURE GRANULOCYTES 1 % 11/07/2019 8:48 AM [facility] Comment:IG (Immature Granulo cyte) count includes Metamyelocytes, Myelocytes, and Promyelocytes NEUTROPHIL ABSOLUTE 5.14 1.90 - 7.00 K/uL 11/07/2019 8:48 AM [facility] - [facility] LYMPHOCYTE ABSOLUTE 1.41 0.70 - 4.50 K/uL 11/07/2019 8:48 AM [facility] - . [facility] MONOCYTE ABSOLUTE 0.40 0.10 - 1.30 K/uL 11/07/2019 8:48 AM [facility] - . [facility] EOSINOPHIL ABSOLUTE 0.28 0.00 - 0.70 K/uL 11/07/2019 8:48 AM [facility] - . [facility] BASOPHILS ABSOLUTE 0.04 0.00 - 0.20 K/uL 11/07/2019 8:48 AM [facility] - [facility] IMMATURE GRANULOCYTES ABSOLUTE 0.08(H) 0.00 - 0.03 K/uL 11/07/2019 8:48 AM T [facility] Blood Venipuncture / Unknown 11/07/2019 8:17 AM CDT 11/07/2019 8:36 AM CDT Ashley Helms MD HEMATOLOGY ORDERABLE S [facility] CLIA# [id number] [address] [facility] [address] [address] * (ABNORMAL) BASIC METABOLIC PANEL (11/07/2019 8:17 AM CDT) SODIUM 138 136 - 145 mmol/L 11/07/2019 9:15 AM T [facility] POTASSIUM 3.5 3.5 - 5.0 mmol/L 11/07/2019 9:15 AM [facility] CHLORIDE 101 98 - 107 mmol/L 11/07/2019 9:15 AM T [facility] CO2 22 22 - 29 mmol/L 11/07/2019 9:15 AM T [facility] CALCIUM 9.1 8.6 - 10.2 mg/dL 11/07/2019 9:15 AM T [facility]. [facility] BUN 8 6 - 20 mg/dL 11/07/2019 9:15 AM [facility] CREATININE 0.41(L) 0.51 - 0.95 mg/dL 11/07/2019 9:15 AM T [facility]. [facility] GLUCOSE 134(H) 74 - 99 mg/dL 11/07/2019 9:15 AM T [facility]. [facility] GFR >60 >=60 mL/min/1.7 3 sq meter 11/07/2019 9:15 AM [facility] Comment: eGFR has not been [...] 3 sq meter 11/07/2019 9:15 AM CDT [facility] - [facility] ANION GAP 15 8 - 16 mmol/L 11/07/2019 9:15 AM CDT [facility] Blood Venipuncture / Unknown 11/07/2019 8:17 AM CDT 11/07/2019 8:36 AM CDT Allan Wheeler MD CHEMISTRY ORDERABL ES [facility] SERVICES [facility]# [id number] [address] [place] [address] * (ABNORMAL) HEPATIC FUNCTION PANEL (11/07/2019 8:17 AM CDT) TOTAL PROTEIN 7.2 6.7 - 8.6 g/dL 11/07/2019 9:15 AM CDT [facility] ALBUMIN 3.9 3.5 - 5.2 g/dL 11/07/2019 9:15 AM T [facility] BILIRUBIN TOTAL 0.8 0.3 - 1.2 mg/dL 11/07/2019 9:15 AM CDT [facility] BILIRUBIN DIRECT <0.2 <0.4 mg/dL 11/07/19 20 9:15 AM CDT [facility] - . [facility] ALKALINE PHOSPHATASE 96 35 - 104 U/L 11/07/2019 9:15 AM CDT [facility] AST 44(H) <33 U/L 11/07/2019 9:15 AM CDT [facility] ALT 71(H) <34 U/L 11/07/2019 9:15 AM CDT [facility] - [facility] Blood Venipuncture / Unknown 11/07/2019 8:17 AM CDT 11/07/2019 8:36 AM CDT Narrative [facility] - 11/07/2019 9:15 AM CDT Samples containing indocyanine green cause interferences on Total and/or Direct Bilirubin and must not be measured. Allan Wheeler MD CHEMISTRY ORDERABL ES Performing Organization Address City/[facility]/ZIP Co de Phone Number [facility]# [id number] [address] [facility] [address] [place] [address] * POC GLUCOSE (11/07/2019 7:28 AM CDT) GLUCOSE POC 94 74 - 99 mg/dL 11/07/2019 7:28 AM CDT [facility] POSTDOCTORAL FELLOW NAME POC ASHLEY WILLARD 11/07/2019 7:28 AM CDT [facility] Blood, whole 11/07/2019 7:28 AM CDT 11/07/2019 7:36 AM CDT Ashley Helms MD POINT OF CARE TESTKIM Keen Performing Organization Address [facility] Co ak Phone Number [facility]# [id number] [address] [facility] [address] * POC GLUCOSE (11/07/2019 5:37 AM CDT) GLUCOSE POC 82 74 - 99 mg/dL 11/07/2019 5:37 AM CDT [facility] POSTDOCTORAL FELLOW NAME POC ASHLEY RICE 11/07/2019 5:37 AM CDT [facility] Blood, whole 11/07/2019 5:37 AM CDT 11/07/2019 5:44 AM CDT Ashley Helms MD POINT OF CARE TESTKIM G Performing Organization Address City/[facility]/ZIP Co de Phone Number [facility]# [id number] [address] [place] [address] * POC GLUCOSE (11/06/2019 11:51 PM CDT) GLUCOSE POC 88 74 - 99 mg/dL 11/06/2019 11:51 PM CDT [facility] SERVICES [facility] POSTDOCTORAL FELLOW NAME POC ASHLEY RICE 11/06/2019 11:51 PM CDT [facility] - [facility] Blood, whole 11/06/2019 11:5 1 PM CDT 11/07/2019 12:27 AM CDT Ashley Helms MD POINT OF CARE TESTIN G [facility] CLIA# [id number] [address] [place] [address] * POC GLUCOSE (11/06/2019 6:28 PM CDT) GLUCOSE POC 89 74 - 99 mg/dL 11/06/2019 6:28 PM CDT [facility] SERVICES [facility] COMMENT, GLU POC Notified RN/ 11/06/2019 6:28 PM CDT [facility] SERVICES [facility] POSTDOCTORAL FELLOW NAME POC COSTA TEJEDA 11/06/2019 6:28 PM CDT [facility] SERVICES [facility] Blood, whole 11/06/2019 6:28 PM CDT 11/06/2019 6:38 PM CDT Ashley Helms MD POINT OF CARE TESTIN G [facility] CLIA# [id number] [address] [place] [address] * POC GLUCOSE (11/06/2019 12:05 PM CDT) GLUCOSE POC 92 74 - 99 mg/dL 11/06/2019 12:05 PM CDT [facility] SERVICES [facility] COMMENT, GLU POC Notified RN/ 11/06/2019 12:05 PM CDT [facility] SERVICES [facility] POSTDOCTORAL FELLOW NAME COSTA AMANDA 11/06/2019 12:05 PM CDT [facility] SERVICES [facility] Blood, whole 11/06/2019 12:0 5 PM CDT 11/06/2019 12:13 PM CDT Ashley Helms MD POINT OF CARE TESTIN G Performing Organization Address [facility]/ZIP Co de Phone Number [facility] CLIA# [id number] [address] [place] [address] * POC GLUCOSE (11/06/2019 8:11 AM CDT) GLUCOSE POC 90 74 - 99 mg/dL 11/06/2019 8:11 AM CDT [facility] SERVICES [facility] COMMENT, GLU POC Notified RN/MD 11/06/2019 8:11 AM CDT [facility] SERVICES [facility] POSTDOCTORAL FELLOW NAME COSTA AMANDA 11/06/2019 8:11 AM CDT [facility] Blood, whole 11/06/2019 8:11 AM CDT 11/06/2019 8:22 AM CDT Ashley Helms MD POINT OF CARE TESTIN G Performing Organization Address [facility]/ZIP Co de Phone Number [facility] CLIA# [id number] [address] [place] [address] * (ABNORMAL) CBC WITH DIFFERENTIAL (11/06/2019 6:37 AM CDT) WBC 9.4 4.0 - 9.8 K/uL 11/06/2019 7:09 AM CDT [facility] SERVICES [facility] RBC 3.91 3.90 - 4.90 M/uL 11/06/2019 7:09 AM CDT [facility] SERVICES [facility] HEMOGLOBIN 11.8 11.8 - 14.8 g/dL 11/06/2019 7:09 AM CDT [facility]ATORY SERVICES [facility] HEMATOCRIT 36.3 35.5 - 44.0 % 11/06/2019 7:09 AM [facility] - [facility] MCV 92.8 82.0 - 99.0 fL 11/06/2019 7:09 AM [facility] - [facility] MCH 30.2 27.2 - 32.6 pg 11/06/2019 7:09 AM [facility] - [facility] MCHC 32.5 31.5 - 35.5 g/dL 11/06/2019 7:09 AM [facility] - [facility] RDW 13.2 11.5 - 14.5 % 11/06/2019 7:09 AM [facility] - [facility] RDW-STDEV 44.6 37.1 - 48.7 fL 11/06/2019 7:09 AM [facility] - [facility] PLATELETS 254 140 - 350 K/uL 11/06/2019 7:09 AM [facility] - [facility] MPV 9.2(L) 9.3 - 12.4 fL 11/06/2019 7:09 AM [facility] - [facility] NEUTROPHILS 74 % 11/06/2019 7:09 AM [facility] - [facility] LYMPHOCYTES 16 % 11/06/2019 7:09 AM [facility] - [facility] MONOCYTES 8 % 11/06/2019 7:09 AM [facility] - [facility] EOSINOPHILS 2 % 11/06/2019 7:09 AM [facility] - [facility] BASOPHILS 0 % 11/06/2019 7:09 AM [facility] - [facility] IMMATURE GRANULOCYTES 1 % 11/06/2019 7:09 AM [facility] Comment:IG (Immature Granulo cyte) count includes Metamyelocytes, Myelocytes, and Promyelocytes NEUTROPHIL ABSOLUTE 6.91 1.90 - 7.00 K/uL 11/06/2019 7:09 AM [facility] - . [facility] LYMPHOCYTE ABSOLUTE 1.51 0.70 - 4.50 K/uL 11/06/2019 7:09 AM [facility] - . [facility] MONOCYTE ABSOLUTE 0.70 0.10 - 1.30 K/uL 11/06/2019 7:09 AM CDT [facility] - [facility] EOSINOPHIL ABSOLUTE 0.20 0.00 - 0.70 K/uL 11/06/2019 7:09 AM CDT [facility] - [facility] BASOPHILS ABSOLUTE 0.01 0.00 - 0.20 K/uL 11/06/2019 7:09 AM CDT [facility] - [facility] IMMATURE GRANULOCYTES ABSOLUTE 0.06(H) 0.00 - 0.03 K/uL 11/06/2019 7:09 AM CDT [facility] - [facility] Blood Venipuncture / Unknown 11/06/2019 6:37 AM CDT 11/06/2019 7:01 AM CDT Allan Wheeler MD HEMATOLOGY ORDERAB LES Performing Organization Address [facility]/State/ZIP Co de Phone Number [facility] CLIA# [id number] [address] [place] [address] * (ABNORMAL) POC GLUCOSE (11/06/2019 4:01 AM CDT) GLUCOSE POC 105(H) 74 - 99 mg/dL 11/06/2019 4:01 AM CDT [facility] POSTDOCTORAL FELLOW NAME POC ASHLEY RICE 11/06/2019 4:01 AM CDT [facility] SERVICES [facility] Blood, whole 11/06/2019 4:01 AM CDT 11/06/2019 4:08 AM CDT Ashley Helms MD POINT OF CARE TESTIN G [facility] CLIA# [id number] [address] [place] [address] * POC GLUCOSE (11/05/2019 11:54 PM CDT) GLUCOSE POC 95 74 - 99 mg/dL 11/05/2019 11:54 PM CDT [facility] POSTDOCTORAL FELLOW NAME POC ASHLEY RICE 11/05/2019 11:54 PM CDT [facility] SERVICES [facility] Blood, whole 11/05/2019 11:5 4 PM CDT 11/06/2019 12:39 AM CDT Ashley Helms MD POINT OF CARE TESTIN Leonila [facility] CLIA# [id number] [address] [place] [address] * POC GLUCOSE (11/05/2019 9:14 PM CDT) GLUCOSE POC 80 74 - 99 mg/dL 11/05/2019 9:14 PM CDT [facility]ORY SERVICES [facility] POSTDOCTORAL FELLOW NAME POC CAROLE LEVY 11/05/2019 9:14 PM CDT [facility] SERVICES [facility] Blood, whole 11/05/2019 9:14 PM CDT 11/05/2019 9:42 PM CDT Ashley Helms MD POINT OF CARE TESTKIM G Performing Organization Address [facility]/ZIP Co de Phone Number [facility] CLIA# [id number] [address] [address] * POC GLUCOSE (11/05/2019 5:09 PM CDT) GLUCOSE POC 89 74 - 99 mg/dL 11/05/2019 5:09 PM CDT [facility] COMMENT, GLU POC Notified RN/MD 11/05/2019 5:09 PM CDT [facility] POSTDOCTORAL FELLOW NAME POC GLENDA VILLANUEVA 11/05/2019 5:09 PM CDT [facility] Blood, whole 11/05/2019 5:09 PM CDT 11/05/2019 5:33 PM CDT Ashley Helms MD POINT OF CARE TESTKIM Keen [facility] CLIA# [id number] [address] [place] [address] * POC GLUCOSE (11/05/2019 12:51 PM CDT) GLUCOSE POC 91 74 - 99 mg/dL 11/05/2019 12:51 PM CDT [facility]ATORY SERVICES [facility] COMMENT, GLU POC Notified RN/ 11/05/2019 12:51 PM CDT [facility]ORY SERVICES [facility] POSTDOCTORAL FELLOW NAME COSTA AMANDA 11/05/2019 12:51 PM CDT [facility] SERVICES [facility] Blood, whole 11/05/2019 12:5 1 PM CDT 11/05/2019 1:00 PM CDT Ashley Helms MD POINT OF CARE TESTKIM Keen Performing Organization Address [facility]/ZIP Co de Phone Number [facility] CLIA# [id number] [address] [place] [address] * POC GLUCOSE (11/05/2019 7:45 AM CDT) GLUCOSE POC 95 74 - 99 mg/dL 11/05/2019 7:45 AM CDT [facility] COMMENT, GLU POC Notified SATURNINO/ 11/05/2019 7:45 AM CDT [facility] POSTDOCTORAL FELLOW NAME COSTA AMANDA 11/05/2019 7:45 AM CDT [facility] SERVICES [facility] Blood, whole 11/05/2019 7:45 AM CDT 11/05/2019 8:21 AM CDT Ashley Helms MD POINT OF CARE TESTIN G Performing Organization Address City/[facility]/ZIP Co de Phone Number [facility] CLIA# [id number] [address] [place] [address] * (ABNORMAL) CBC WITH DIFFERENTIAL (11/05/2019 7:05 AM CDT) WBC 10.9(H) 4.0 - 9.8 K/uL 11/05/2019 7:25 AM CDT [facility] RBC 4.13 3.90 - 4.90 M/uL 11/05/2019 7:25 AM CDT [facility] HEMOGLOBIN 12.7 11.8 - 14.8 g/dL 11/05/2019 7:25 AM [facility] - [facility] HEMATOCRIT 39.7 35.5 - 44.0 % 11/05/2019 7:25 AM CDT [facility] - [facility] MCV 96.1 82.0 - 99.0 fL 11/05/2019 7:25 AM CDT [facility] MCH 30.8 27.2 - 32.6 pg 11/05/2019 7:25 AM CDT [facility] MCHC 32.0 31.5 - 35.5 g/dL 11/05/2019 7:25 AM [facility] - [facility] RDW 13.5 11.5 - 14.5 % 11/05/2019 7:25 AM CDT [facility] RDW-STDEV 47.8 37.1 - 48.7 fL 11/05/2019 7:25 AM [employer] [facility] PLATELETS 239 140 - 350 K/uL 11/05/2019 7:25 AM [facility] MPV 9.3 9.3 - 12.4 fL 11/05/2019 7:25 AM [facility] NEUTROPHILS 70 % 11/05/2019 7:25 AM CDT [facility] LYMPHOCYTES 17 % 11/05/2019 7:25 AM CDT [facility] MONOCYTES 10 % 11/05/2019 7:25 AM CDT [facility] EOSINOPHILS 2 % 11/05/2019 7:25 AM CDT [facility] BASOPHILS 0 % 11/05/2019 7:25 AM CDT [facility] IMMATURE GRANULOCYTES 1 % 11/05/2019 7:25 AM [employer] [facility]AT[facility] - [facility] Comment:IG (Immature Granulo cyte) count includes Metamyelocytes, Myelocytes, and Promyelocytes NEUTROPHIL ABSOLUTE 7.65(H) 1.90 - 7.00 K/uL 11/05/2019 7:25 AM CDT [facility] - . [facility] LYMPHOCYTE ABSOLUTE 1.80 0.70 - 4.50 K/uL 11/05/2019 7:25 AM CDT [facility] - . [facility] MONOCYTE ABSOLUTE 1.10 0.10 - 1.30 K/uL 11/05/2019 7:25 AM CDT [facility] - [facility] EOSINOPHIL ABSOLUTE 0.22 0.00 - 0.70 K/uL 11/05/2019 7:25 AM CDT [facility] - [facility] BASOPHILS ABSOLUTE 0.03 0.00 - 0.20 K/uL 11/05/2019 7:25 AM T [facility] - . [facility] IMMATURE GRANULOCYTES ABSOLUTE 0.09(H) 0.00 - 0.03 K/uL 11/05/2019 7:25 AM CDT [facility] - [facility] Blood Venipuncture / Unknown 11/05/2019 7:05 AM CDT 11/05/2019 7:14 AM CDT Ashley Helms MD HEMATOLOGY ORDERABLE S [facility]# [id number] [address] [place] [address] * POC GLUCOSE (11/05/2019 4:03 AM CDT) [facility] Signature GLUCOSE POC 98 74 - 99 mg/dL 11/05/2019 4:03 AM CDT [facility] POSTDOCTORAL FELLOW NAME POC CAROLE LEVY 11/05/2019 4:03 AM CDT [facility] Blood, whole 11/05/2019 4:03 AM CDT 11/05/2019 6:10 AM CDT Ashley Helms MD POINT OF CARE TESTIN G [facility] CLIA# [id number] [address] [place] [address] * (ABNORMAL) POC GLUCOSE (11/05/2019 12:03 AM CDT) GLUCOSE POC 104(H) 74 - 99 mg/dL 11/05/2019 12:03 AM CDT [facility] POSTDOCTORAL FELLOW NAME CAROLE CALI 11/05/2019 12:03 AM CDT [facility] Blood, whole 11/05/2019 12:0 3 AM CDT 11/05/2019 12:53 AM CDT Ashley Helms MD POINT OF CARE TESTKIM G Performing Organization Address City/[facility]/ZIP Co de Phone Number [facility] CLIA# [id number] [address] [place] [address] * (ABNORMAL) POC GLUCOSE (11/04/2019 8:00 PM CDT) GLUCOSE POC 106(H) 74 - 99 mg/dL 11/04/2019 8:00 PM CDT [facility] POSTDOCTORAL FELLOW NAME CAROLE CALI 11/04/2019 8:00 PM CDT [facility] Blood, whole 11/04/2019 8:00 PM CDT 11/04/2019 9:57 PM CDT Ashley Helms MD POINT OF CARE TESTKIM G [facility] CLIA# [id number] [address] [place] [address] * (ABNORMAL) POC GLUCOSE (11/04/2019 4:10 PM CDT) GLUCOSE POC 105(H) 74 - 99 mg/dL 11/04/2019 4:10 PM CDT [facility] SERVICES [facility] COMMENT, GLU POC Notified RN/MD 11/04/2019 4:10 PM CDT [facility] SERVICES [facility] POSTDOCTORAL FELLOW NAME POC JANAE RAMIREZ 11/04/2019 4:10 PM CDT [facility] - [facility] Blood, whole 11/04/2019 4:10 PM CDT 11/04/2019 6:07 PM CDT Ashley Helms MD POINT OF CARE TESTIN G Performing Organization Address [facility]/ZIP Co de Phone Number [facility]# [id number] [address] [place] [address] * (ABNORMAL) POC GLUCOSE (11/04/2019 12:18 PM CDT) GLUCOSE POC 113(H) 74 - 99 mg/dL 11/04/2019 12:18 PM CDT [facility] SERVICES [facility] POSTDOCTORAL FELLOW NAME POC CLEMENCIA DODSON 11/04/2019 12:18 PM CDT [facility] Blood, whole 11/04/2019 12:1 8 PM CDT 11/04/2019 12:40 PM CDT Ashley Helms MD POINT OF CARE TESTIN G Performing Organization Address [facility] Co de Phone Number [facility]# [id number] [address] [place] [address] * (ABNORMAL) POC GLUCOSE (11/04/2019 8:57 AM CDT) GLUCOSE POC 112(H) 74 - 99 mg/dL 11/04/2019 8:57 AM CDT [facility] COMMENT, GLU POC Notified RN/MD 11/04/2019 8:57 AM CDT [facility] POSTDOCTORAL FELLOW NAME POC JANAE RAMIREZ 11/04/2019 8:57 AM CDT [facility] Blood, whole 11/04/2019 8:57 AM CDT 11/04/2019 9:04 AM CDT Ashley Helms MD POINT OF CARE TESTIN G [place] - [facility] CLIA# [id number] [address] [place] [address] * (ABNORMAL) CBC WITH DIFFERENTIAL (11/04/2019 7:14 AM CDT) WBC 11.6(H) 4.0 - 9.8 K/uL 11/04/2019 8:10 AM CDT [place] [facility] RBC 3.88(L) 3.90 - 4.90 M/uL 11/04/2019 8:10 AM CDT [place] [facility] HEMOGLOBIN 11.8 11.8 - 14.8 g/dL 11/04/2019 8:10 AM CDT [place] [facility] HEMATOCRIT 36.5 35.5 - 44.0 % 11/04/2019 8:10 AM CDT [place] [facility] MCV 94.1 82.0 - 99.0 fL 11/04/2019 8:10 AM CDT [place] [facility] MCH 30.4 27.2 - 32.6 pg 11/04/2019 8:10 AM CDT [place] [facility] MCHC 32.3 31.5 - 35.5 g/dL 11/04/2019 8:10 AM CDT [place] [facility] RDW 13.3 11.5 - 14.5 % 11/04/2019 8:10 AM CDT [place] [facility] RDW-STDEV 45.9 37.1 - 48.7 fL 11/04/2019 8:10 AM CDT [place] [facility] PLATELETS 234 140 - 350 K/uL 11/04/2019 8:10 AM CDT [place] [facility] - . [facility] MPV 9.7 9.3 - 12.4 fL 11/04/2019 8:10 AM CDT [place] [facility] - . [facility] NEUTROPHILS 78 % 11/04/2019 8:10 AM CDT [place] LYMPHOCYTES 12 % 11/04/2019 8:10 AM CDT [place] [facility] MONOCYTES 9 % 11/04/2019 8:10 AM CDT [facility] EOSINOPHILS 0 % 11/04/2019 8:10 AM CDT [facility] BASOPHILS 0 % 11/04/2019 8:10 AM CDT [facility] IMMATURE GRANULOCYTES 0 % 11/04/2019 8:10 AM CDT [facility] NEUTROPHIL ABSOLUTE 9.00(H) 1.90 - 7.00 K/uL 11/04/2019 8:10 AM CDT [facility] - [facility] LYMPHOCYTE ABSOLUTE 1.40 0.70 - 4.50 K/uL 11/04/2019 8:10 AM CDT [facility] MONOCYTE ABSOLUTE 1.09 0.10 - 1.30 K/uL 11/04/2019 8:10 AM CDT [facility] EOSINOPHIL ABSOLUTE 0.01 0.00 - 0.70 K/uL 11/04/2019 8:10 AM CDT [facility] BASOPHILS ABSOLUTE 0.01 0.00 - 0.20 K/uL 11/04/2019 8:10 AM CDT [facility] IMMATURE GRANULOCYTES ABSOLUTE 0.05(H) 0.00 - 0.03 K/uL 11/04/2019 8:10 AM T [facility] Blood Venipuncture / Unknown 11/04/2019 7:14 AM CDT 11/04/2019 7:55 AM CDT Ashley Helms MD HEMATOLOGY ORDERABLE S [facility] [id number] [address] [facility] [address] * (ABNORMAL) BASIC METABOLIC PANEL (11/04/2019 7:14 AM CDT) SODIUM 136 136 - 145 mmol/L 11/04/2019 8:52 AM CDT [facility] - . [facility] POTASSIUM 3.7 3.5 - 5.0 mmol/L 11/04/2019 8:52 AM CDT [facility] CHLORIDE 100 98 - 107 mmol/L 11/04/2019 8:52 AM [facility] CO2 25 22 - 29 mmol/L 11/04/2019 8:52 AM [facility] CALCIUM 8.4(L) 8.6 - 10.2 mg/dL 11/04/2019 8:52 AM [facility] BUN 7 6 - 20 mg/dL 11/04/2019 8:52 AM [facility] CREATININE 0.55 0.51 - 0.95 mg/dL 11/04/2019 8:52 AM [facility] GLUCOSE 115(H) 74 - 99 mg/dL 11/04/2019 8:52 AM [facility] GFR >60 >=60 mL/min/1.7 3 sq meter 11/04/2019 8:52 AM [facility] Comment: eGFR has not been validated for [...] 3 sq meter 11/04/2019 8:52 AM T [facility]ORY SERVICES [facility] ANION GAP 11 8 - 16 mmol/L 11/04/2019 8:52 AM T [facility] Blood Venipuncture / Unknown 11/04/2019 7:14 AM CDT 11/04/2019 7:55 AM CDT Allan Wheeler MD CHEMISTRY ORDERABL ES [facility] CLIA# [id number] [address] [place] [address] * (ABNORMAL) POC GLUCOSE (11/04/2019 4:19 AM CDT) GLUCOSE POC 109(H) 74 - 99 mg/dL 11/04/2019 4:19 AM CDT [facility]ORY [facility] - [facility] COMMENT, GLU POC Notified RN/MD 11/04/2019 4:19 AM CDT [facility]ORY SERVICES [facility] POSTDOCTORAL FELLOW NAME POC CLINT WARE 11/04/2019 4:19 AM CDT [facility] SERVICES [facility] Blood, whole 11/04/2019 4:19 AM CDT 11/04/2019 4:37 AM CDT Ashley Helms MD POINT OF CARE TESTIN G [facility]# [id number] [address] [place] [address] * (ABNORMAL) HEPATIC FUNCTION PANEL (11/04/2019 12:03 AM CDT) Pathologist [facility] TOTAL PROTEIN 7.0 6.7 - 8.6 g/dL 11/04/2019 12:49 AM T [facility]ATORY SERVICES [facility] ALBUMIN 4.0 3.5 - 5.2 g/dL 11/04/2019 12:49 AM T [facility]ORY SERVICES [facility] BILIRUBIN TOTAL 0.7 0.3 - 1.2 mg/dL 11/04/2019 12:49 AM T [facility]ORY SERVICES [facility] BILIRUBIN DIRECT 0.3 <0.4 mg/dL 11/04/19 20 12:49 AM T [facility]ORATORY SERVICES [facility] ALKALINE PHOSPHATASE 72 35 - 104 U/L 11/04/2019 12:49 AM T [facility]ORY SERVICES [facility] AST 51(H) <33 U/L 11/04/2019 12:49 AM T [facility]ORY SERVICES [facility] ALT 55(H) <34 U/L 11/04/2019 12:49 AM T [facility] SERVICES [facility] Blood Venipuncture / Unknown 11/04/2019 12:03 AM CDT 11/04/2019 12:18 AM CDT Narrative [facility] - 11/04/2019 12:49 AM CDT Samples containing indocyanine green cause interferences on Total and/or Direct Bilirubin and must not be measured. Allan Wheeler MD CHEMISTRY ORDERABL ES Performing Organization Address [facility] Co de Phone Number [facility]# [id number] [address] [place] [address] * (ABNORMAL) POC GLUCOSE (11/04/2019 12:02 AM CDT) GLUCOSE POC 123(H) 74 - 99 mg/dL 11/04/2019 12:02 AM CDT [facility] COMMENT, GLU POC Notified RN/ 11/04/2019 12:02 AM CDT [facility] POSTDOCTORAL FELLOW NAME CLINT RUIZ 11/04/2019 12:02 AM CDT [facility] Blood, whole 11/04/2019 12:0 2 AM CDT 11/04/2019 12:08 AM CDT Ashley Helms MD POINT OF CARE TESTIN G Performing Organization Address [facility] Co de Phone Number [facility]# [id number] [address] [place] [address] * (ABNORMAL) POC GLUCOSE (11/03/2019 8:06 PM CDT) GLUCOSE POC 118(H) 74 - 99 mg/dL 11/03/2019 8:06 PM CDT [facility] COMMENT, GLU POC Notified RN/ 11/03/2019 8:06 PM CDT [facility] POSTDOCTORAL FELLOW NAME CLINT RUIZ 11/03/2019 8:06 PM CDT [facility] Blood, whole 11/03/2019 8:06 PM CDT 11/03/2019 8:17 PM CDT Ashley Helms MD POINT OF CARE TESTIN Leonila [facility]# [id number] [address] [place] [address] * (ABNORMAL) POC GLUCOSE (11/03/2019 4:08 PM CDT) GLUCOSE POC 137(H) 74 - 99 mg/dL 11/03/2019 4:08 PM CDT [facility]ATORY SERVICES [facility] POSTDOCTORAL FELLOW NAME POC OLY ARNOLD 11/03/2019 4:08 PM CDT [facility] SERVICES [facility] Blood, whole 11/03/2019 4:08 PM CDT 11/03/2019 4:14 PM CDT Ashley Helms MD POINT OF CARE TESTKIM Leonila Performing Organization Address [facility]/ZIP Co de Phone Number [facility]# [id number] [address] [place] [address] * (ABNORMAL) POC GLUCOSE (11/03/2019 11:45 AM CDT) GLUCOSE POC 152(H) 74 - 99 mg/dL 11/03/2019 11:45 AM CDT [facility] POSTDOCTORAL FELLOW NAME POC NIKKI FIGUEREDO 11/03/2019 11:45 AM CDT [facility]ATORY SERVICES [facility] Blood, whole 11/03/2019 11:4 5 AM CDT 11/03/2019 11:52 AM CDT Ashley Helms MD POINT OF CARE TESTKIM Leonila Performing Organization Address City/[facility]/ZIP Co de Phone Number [facility]# [id number] [address] [place] [address] * PATHOLOGY (11/03/2019 9:28 AM CDT) CASE REPORT Surgical Pathology Report ? Case: [id number] ? Authorizing Provider: ??Allan Wheeler MD ? Collected: ? 11/03/2019 09:28 AM ? Ordering Location: ? [facility] ?Received: ?11/03/2019 11:57 AM ? Operating Room ? Pathologist: ? Nader, Josiah R, DO ? Specimens: ?? A) - Gallbladder ? B) - Small Intestine, SMALL INTESTINE ? 11/04/2019 2:49 PM CDT [facility] FINAL DIAGNOSIS Gallbladder, cholecystectomy: -Cholelithiasis. -Mild chronic cholecystitis with cholesterolosis. Small bowel, resection: -Transmural defect, consistent with enterotomy. -Serosal adhesions. -Mucosal margins viable. 11/04/2019 2:49 PM [facility] IMEN DESCRIPTION (A) gallbladder; (B) small intestine. 11/04/2019 2:49 PM [facility] OPERATIVE PROCEDURE 1: CHOLECYSTECTOMY 11/04/2019 2:49 PM [facility] CLINICAL INFORMATION No Dx found. 11/04/2019 2:49 PM [facility] GROSS DESCRIPTION Received are two containers labeled [...] The average wall thickness is 0.2 cm. Correctional Security Officer sections are submitted as follows: B1-bowel margin closest to defect, en face; B2-opposite bowel margin, en face; S8-[id number]-[id number] defect (edge of defect inked blue). 11/04/2019 2:49 PM [facility] MICROSCOPIC DESCRIPTION The slides are labeled [id number] and Lis Phelan. Sections from the gallbladder [...] surgical margins appears viable. 11/04/2019 2:49 PM [facility] COMMENT Special stain and/or immunohistochemical results are interpreted with controls that demonstrate appropriate staining reactions. Note on use of immunocytochemistry reagents: This test was developed and its performance characteristics determined by [facility], Department of Laboratory Medicine. [...] part or completely in the following laboratories: [facility], CLIA #[id number] [address] [place] [address] [facility], CLIA #[id number] [address] [place] [address] [facility]/[place], CLIA #[id number] [address] [place] [address]. 11/04/2019 2:49 PM [facility] Tissue ENTIRE GALLBLADDER / Unknown Collection / Unknown 11/03/2019 9:28 AM CDT 11/03/2019 11:57 AM CDT Tissue specimen (specimen) (Small Intestine) Collection / Unknown 11/03/2019 10:27 AM CDT 11/03/2019 11:57 AM CDT Allan Wheeler MD PATHOLOGY/CYTOLOGY ORDERABLES Performing Organization Address [facility]/ZIP Co de Phone Number [facility]# [id number] [address] [place] [address] * (ABNORMAL) POC GLUCOSE (11/03/2019 4:47 AM CDT) GLUCOSE POC 103(H) 74 - 99 mg/dL 11/03/2019 4:47 AM CDT [facility] POSTDOCTORAL FELLOW NAME SRIRAM VARGAS 11/03/2019 4:47 AM CDT [facility] Blood, whole 11/03/2019 4:47 AM CDT 11/03/2019 4:54 AM CDT Ashley Helms MD POINT OF CARE TESTKIM G Performing Organization Address [facility] Co de Phone Number [facility]# [id number] [address] [place] [address] * POC GLUCOSE (11/03/2019 12:21 AM CDT) GLUCOSE POC 90 74 - 99 mg/dL 11/03/2019 12:21 AM CDT [facility] POSTDOCTORAL FELLOW NAME POC SRIRAM ISIDRO 11/03/2019 12:21 AM CDT [facility] Blood, whole 11/03/2019 12:2 1 AM CDT 11/03/2019 12:27 AM CDT Ashley Helms MD POINT OF CARE TESTKIM G Performing Organization Address [facility] Co de Phone Number [facility]# [id number] [address] [place] [address] * POC GLUCOSE (11/02/2019 7:23 PM CDT) GLUCOSE POC 98 74 - 99 mg/dL 11/02/2019 7:23 PM CDT [facility]ORATORY SERVICES [facility] COMMENT, GLU POC Notified RN/ 11/02/2019 7:23 PM CDT [facility] LABORATORY SERVICES - [facility] POSTDOCTORAL FELLOW NAME POC SRIRAM ISIDRO 11/02/2019 7:23 PM CDT [facility]ORY SERVICES [facility] Blood, whole 11/02/2019 7:23 PM CDT 11/02/2019 7:30 PM CDT Ashley Helms MD POINT OF CARE TESTIN G [facility] CLIA# [id number] [address] [place] [address] * POC GLUCOSE (11/02/2019 1:46 PM CDT) GLUCOSE POC 88 74 - 99 mg/dL 11/02/2019 1:46 PM CDT [facility]ORY SERVICES [facility] COMMENT, GLU POC Notified [place]/ 11/02/2019 1:46 PM CDT [facility]ORY SERVICES - [facility] POSTDOCTORAL FELLOW NAME POC SANDRA SANCHEZ 11/02/2019 1:46 PM CDT [facility]ORY SERVICES [facility] Blood, whole 11/02/2019 1:46 PM CDT 11/02/2019 2:21 PM CDT Ashley Helms MD POINT OF CARE TESTIN G [facility] CLIA# [id number] [address] [place] [address] * MRSA PCR RAPID SCREEN (11/02/2019 12:39 PM CDT) MRSA PCR RESULT MRSA not detected MRSA not detected 11/02/2019 3:01 PM CDT [facility] Surveillance ANTERIOR NARES SWAB / Unknown Collection / Unknown 11/02/2019 12:39 PM CDT 11/02/2019 12:50 PM CDT [facility] - 11/02/2019 3:01 PM CDT This assay is used to detect Methicillin-Resistant S. aureus (MRSA) colonization of the nares. PLEASE NOTE: ??This test has not been approved to monitor effectiveness of MRSA decolonization. Residual DNA may temporarily be present after successful decolonization. This test was performed using an FDA approved screening methodology. Allan Wheeler MD MICROBIOLOGY - GEN ERAL ORDERABLES [facility] - [facility]# [id number] [address] [place] [address] * 2019 NOVEL CORONAVIRUS (COVID-19) PCR DETECTION (11/02/2019 12:39 PM CDT) [facility] COVID-19 PCR Not Detected Not Detected 11/03/19 10:16 AM CDT [facility] PERFORMING LAB [facility] 11/03/2019 10:16 AM CDT [facility] Upper Respiratory ENTIRE NASOPHARYNX / Unknown Collection / Unknown 11/02/2019 12:39 PM CDT 11/02/2019 12:51 PM CDT [facility] --- [facility] - 11/03/2019 10:16 AM CDT Results called to Sepideh MATAMOROS by Lora Reveles at 10:14 AM on 11/03/2019. Allan Wheeler MD MICROBIOLOGY - GEN ERAL ORDERABLES [facility] [id number] [address], [address] [address] [facility] CLIA# [id number] [address], [address] [address] * MRI MRCP W AND WO CONTRAST (11/02/2019 11:57 AM CDT) Anatomical Region Laterality Modality Abdomen Magnetic Resonan ce 11/02/2019 12:0 0 PM CDT Impressions 11/02/2019 1:08 PM CDT IMPRESSION: Hepatic steatosis. Cholelithiasis. Intrahepatic and extrahepatic biliary ductal dilatation, common bile duct measuring up to 11 mm in diameter. No ductal filling defect, stricture, or periampullary mass. DICTATION LOCATION: [address] 11/02/2019 1:08 PM CDT MRI MRCP W [...] periampullary mass. DICTATION LOCATION: Location 1 - [facility] Allan Wheeler MD MR ORDERABLES * (ABNORMAL) POC GLUCOSE (11/02/2019 8:21 AM CDT) Pathologist [facility] GLUCOSE POC 107(H) 74 - 99 mg/dL 11/02/2019 8:21 AM CDT [facility] COMMENT, GLU POC Notified RN/MD 11/02/2019 8:21 AM CDT [facility] POSTDOCTORAL FELLOW NAME POC SANDRA SANCHEZ 11/02/2019 8:21 AM CDT [facility] Blood, whole 11/02/2019 8:21 AM CDT 11/02/2019 8:29 AM CDT Ashley Helms MD POINT OF CARE TESTIN G [facility]# [id number] [address] [place] [address] [place] [address] * (ABNORMAL) COMPREHENSIVE METABOLIC PANEL (11/02/2019 4:35 AM CDT) Pathologist [facility] SODIUM 140 136 - 145 mmol/L 11/02/2019 6:41 AM T [facility] POTASSIUM 3.5 3.5 - 5.0 mmol/L 11/02/2019 6:41 AM T [facility] Comment:Significant change f rom prior result, correlate clinically and redraw if necessary. CHLORIDE 103 98 - 107 mmol/L 11/02/2019 6:41 AM CDT [facility] CO2 26 22 - 29 mmol/L 11/02/2019 6:41 AM T [facility] CALCIUM 8.5(L) 8.6 - 10.2 mg/dL 11/02/2019 6:41 AM [facility]ATORY SERVICES - [facility] BUN 6 6 - 20 mg/dL 11/02/2019 6:41 AM [facility]ATORY SERVICES - . [facility] CREATININE 0.65 0.51 - 0.95 mg/dL 11/02/2019 6:41 AM [facility] GLUCOSE 104(H) 74 - 99 mg/dL 11/02/2019 6:41 AM [facility] - . [facility] TOTAL PROTEIN 6.6(L) 6.7 - 8.6 g/dL 11/02/2019 6:41 AM [facility]ATORY SERVICES - [facility] ALBUMIN 3.8 3.5 - 5.2 g/dL 11/02/2019 6:41 AM [facility]ATORY SERVICES - . [facility] BILIRUBIN TOTAL 0.5 0.3 - 1.2 mg/dL 11/02/2019 6:41 AM [facility]ATORY SERVICES - . [facility] ALKALINE PHOSPHATASE 72 35 - 104 U/L 11/02/2019 6:41 AM [facility]ATORY SERVICES - . [facility] AST 14 <33 U/L 11/02/2019 6:41 AM [facility]ORY SERVICES - . [facility] ALT 21 <34 U/L 11/02/2019 6:41 AM [facility]ATORY SERVICES - . [facility] GFR >60 >=60 mL/min/1.7 3 sq meter 11/02/2019 6:41 AM [facility]ATORY SERVICES - [facility] Comment: eGFR has not been validated for [...] mL/min/1.7 3 sq meter 11/02/2019 6:41 AM [facility] LABORATORY SERVICES - . [facility] ANION GAP 11 8 - 16 mmol/L 11/02/2019 6:41 AM CDT [facility] Blood Collection / Unknown 11/02/2019 4:35 AM CDT 11/02/2019 5:03 AM CDT Narrative [facility] LABORATORY [facility] - [facility] - 11/02/2019 6:41 AM CDT Samples containing indocyanine green cause interferences on Total and/or Direct Bilirubin and must not be measured. Shobha Choi MD CHEMISTRY ORDERABLES Performing Organization Address City/[facility]/ZIP Co de Phone Number [facility] CLIA# [id number] [address] [place] [address] * (ABNORMAL) POC GLUCOSE (11/02/2019 4:21 AM CDT) GLUCOSE POC 100(H) 74 - 99 mg/dL 11/02/2019 4:21 AM CDT [facility] COMMENT, GLU POC Notified SHERRON 11/02/2019 4:21 AM CDT [facility] POSTDOCTORAL FELLOW NAME POC EDER ARVIZU 11/02/2019 4:21 AM CDT [facility] Blood, whole 11/02/2019 4:21 AM CDT 11/02/2019 5:17 AM CDT Ashley Helms MD POINT OF CARE TESTIN G Performing Organization Address [facility] Co de Phone Number [facility] [id number] [address] [place] [address] * (ABNORMAL) POC GLUCOSE (11/02/2019 12:11 AM CDT) GLUCOSE POC 138(H) 74 - 99 mg/dL 11/02/2019 12:11 AM CDT [facility] COMMENT, GLU POC Notified SATURNINO/ 11/02/2019 12:11 AM CDT [facility] POSTDOCTORAL FELLOW NAME POC EDER ARVIZU 11/02/2019 12:11 AM CDT [facility] Blood, whole 11/02/2019 12:1 1 AM CDT 11/02/2019 12:59 AM CDT Ashley Helms MD POINT OF CARE VIVIANA Keen [facility] CLIA# [id number] [address] [place] [address] * (ABNORMAL) POC GLUCOSE (11/01/2019 8:22 PM CDT) GLUCOSE POC 114(H) 74 - 99 mg/dL 11/01/2019 8:22 PM CDT [facility] COMMENT, GLU POC Notified RN/MD 11/01/2019 8:22 PM CDT [facility] POSTDOCTORAL FELLOW NAME POC EDER ARVIZU 11/01/2019 8:22 PM CDT [facility] Blood, whole 11/01/2019 8:22 PM CDT 11/01/2019 9:55 PM CDT Ashley Helms MD POINT OF CARE TESTKIM Keen Performing Organization Address [facility]/ZIP Co de Phone Number [facility] CLIA# [id number] [address] [place] [address] * POC GLUCOSE (11/01/2019 5:56 PM CDT) GLUCOSE POC 92 74 - 99 mg/dL 11/01/2019 5:56 PM CDT [facility] POSTDOCTORAL FELLOW NAME POC ZAHRA GREGORY 11/01/2019 5:56 PM CDT [facility] Blood, whole 11/01/2019 5:56 PM CDT 11/01/2019 6:04 PM CDT Ashley Helms MD POINT OF CARE TESTKIM Keen [facility] CLIA# [id number] [address] [place] [address] * (ABNORMAL) POC GLUCOSE (11/01/2019 2:22 PM CDT) GLUCOSE POC 103(H) 74 - 99 mg/dL 11/01/2019 2:22 PM CDT [facility] POSTDOCTORAL FELLOW NAME POC SHAHID BHAKTA 11/01/2019 2:22 PM CDT [facility] Blood, whole 11/01/2019 2:22 PM CDT 11/01/2019 2:33 PM CDT Ashley Helms MD POINT OF CARE TESTKIM Keen [facility] CLIA# [id number] [address] [place] [address] * (ABNORMAL) POC GLUCOSE (11/01/2019 10:11 AM CDT) GLUCOSE POC 101(H) 74 - 99 mg/dL 11/01/2019 10:11 AM CDT [facility] POSTDOCTORAL FELLOW NAME POC SHAHID BHAKTA 11/01/2019 10:11 AM CDT [facility] Blood, whole 11/01/2019 10:1 1 AM CDT 11/01/2019 10:25 AM CDT Ashley Helms MD POINT OF CARE VIVIANA Keen [facility] CLIA# [id number] [address] [place] [address] * US ABDOMEN LIMITED (11/01/2019 8:16 AM [...] duct dilatation DICTATION LOCATION: Location 4 Demario Marvwilliam BRAVO ORDERABLES * (ABNORMAL) CBC WITH DIFFERENTIAL (11/01/2019 6:58 AM CDT) WBC 8.9 4.0 - 9.8 K/uL 11/01/2019 7:18 AM CDT [facility] RBC 4.13 3.90 - 4.90 M/uL 11/01/2019 7:18 AM CDT [facility] HEMOGLOBIN 12.6 11.8 - 14.8 g/dL 11/01/2019 7:18 AM CDT [facility] HEMATOCRIT 38.5 35.5 - 44.0 % 11/01/2019 7:18 AM CDT [facility] MCV 93.2 82.0 - 99.0 fL 11/01/2019 7:18 AM CDT [facility] MCH 30.5 27.2 - 32.6 pg 11/01/2019 7:18 AM CDT [facility] MCHC 32.7 31.5 - 35.5 g/dL 11/01/2019 7:18 AM CDT [facility] RDW 13.3 11.5 - 14.5 % 11/01/2019 7:18 AM CDT [facility] RDW-STDEV 45.2 37.1 - 48.7 fL 11/01/2019 7:18 AM CDT [facility] PLATELETS 251 140 - 350 K/uL 11/01/2019 7:18 AM CDT [facility] MPV 9.2(L) 9.3 - 12.4 fL 11/01/2019 7:18 AM CDT [facility] NEUTROPHILS 58 % 11/01/2019 7:18 AM CDT [facility] LYMPHOCYTES 26 % 11/01/2019 7:18 AM CDT [facility] MONOCYTES 8 % 11/01/2019 7:18 AM CDT [facility] EOSINOPHILS 7 % 11/01/2019 7:18 AM CDT [facility] BASOPHILS 0 % 11/01/2019 7:18 AM CDT [facility] IMMATURE GRANULOCYTES 0 % 11/01/2019 7:18 AM CDT [facility] NEUTROPHIL ABSOLUTE 5.14 1.90 - 7.00 K/uL 11/01/2019 7:18 AM CDT [facility] LYMPHOCYTE ABSOLUTE 2.35 0.70 - 4.50 K/uL 11/01/2019 7:18 AM CDT [facility] MONOCYTE ABSOLUTE 0.75 0.10 - 1.30 K/uL 11/01/2019 7:18 AM CDT [facility] EOSINOPHIL ABSOLUTE 0.61 0.00 - 0.70 K/uL 11/01/2019 7:18 AM CDT [facility] BASOPHILS ABSOLUTE 0.04 0.00 - 0.20 K/uL 11/01/2019 7:18 AM CDT [facility] IMMATURE GRANULOCYTES ABSOLUTE 0.02 0.00 - 0.03 K/uL 11/01/2019 7:18 AM CDT [facility] Blood Venipuncture / Unknown 11/01/2019 6:58 AM CDT 11/01/2019 7:10 AM CDT Shobha Choi MD HEMATOLOGY ORDERABLE S [facility]# [id number] [facility] [place] [address] * CT ABDOMEN PELVIS W CONTRAST (11/01/2019 [...] Intestinal malrotation. DICTATION LOCATION: Location 1 - [facility] Narrative 11/01/2019 9:[address] ABDOMEN [...] Intestinal malrotation. DICTATION LOCATION: Location 1 - [facility] Demario Koo DO CT ORDERABLES * POC , URINE (11/01/2019 1:45 AM CDT) Pathologist [facility] HCG QUAL URINE Negative Negative 11/01/2019 1:45 AM CDT [facility] POSTDOCTORAL FELLOW NAME POC TONIO MALCOLM 11/01/2019 1:45 AM CDT [facility] SPECIFIC GRAVITY UA POC 1.020 1.000 - 1.030 11/01/2019 1:45 AM CDT [facility] Urine 11/01/2019 1:45 AM CDT 11/01/2019 1:49 AM CDT Demario Koo DO POINT OF CARE TESTIN G [facility] CLIA# [id number] [address] [address] * URINALYSIS WITH REFLEX MICROSCOPIC (11/01/2019 1:44 AM CDT) COLOR UA Yellow Pale to Dark Yellow 11/01/2019 1:52 AM CDT [facility] CLARITY UA Clear Clear 11/01/2019 1:52 AM CDT [facility] SPECIFIC GRAVITY UA 1.016 1.003 - 1.035 11/01/2019 1:52 AM CDT [facility] PH UA 6.0 5.0 - 8.0 11/01/2019 1:52 AM CDT [facility] LEUKOCYTE ESTERASE UA Negative Negative 11/01/2019 1:52 AM CDT [facility] NITRITE UA Negative Negative 11/01/2019 1:52 AM CDT [facility] PROTEIN UA Negative Negative 11/01/2019 1:52 AM CDT [facility] GLUCOSE UA Negative Negative 11/01/2019 1:52 AM CDT [facility] KETONES UA Negative Negative 11/01/2019 1:52 AM CDT [facility] UROBILINOGEN UA Normal <2.0 mg/dL 0 1:52 AM CDT [facility] BILIRUBIN UA Negative Negative 11/01/2019 1:52 AM CDT [facility] BLOOD UA Negative Negative 11/01/2019 1:52 AM CDT [facility] Urine URINE SPECIMEN OBTAINED BY CLEAN CATCH PROCEDURE / Unknown Collection / Unknown 11/01/2019 1:44 AM CDT 11/01/2019 1:46 AM CDT Demario Koo DO URINE ORDERABLES [id number] [address] [place] [address] * EXTRA TUBE (GREEN) (11/01/2019 12:53 AM CDT) Blood Venipuncture / Unknown 11/01/2019 12:53 AM CDT 11/01/2019 12:56 AM CDT Demario Fairboniwona DO CHEMISTRY ORDERABLES [facility] CLIA# [id number] [address] [place] [address] * (ABNORMAL) CBC WITH DIFFERENTIAL (11/01/2019 12:53 AM CDT) [facility] Signature WBC 11.0(H) 4.0 - 9.8 K/uL 11/01/2019 1:01 AM CDT [facility] RBC 4.15 3.90 - 4.90 M/uL 11/01/2019 1:01 AM CDT [facility] HEMOGLOBIN 12.9 11.8 - 14.8 g/dL 11/01/2019 1:01 AM CDT [facility] HEMATOCRIT 38.1 35.5 - 44.0 % 11/01/2019 1:01 AM CDT [facility] MCV 91.8 82.0 - 99.0 fL 11/01/2019 1:01 AM CDT [facility] MCH 31.1 27.2 - 32.6 pg 11/01/2019 1:01 AM CDT [facility] MCHC 33.9 31.5 - 35.5 g/dL 11/01/2019 1:01 AM CDT [facility] RDW 13.3 11.5 - 14.5 % 11/01/2019 1:01 AM CDT [facility] RDW-STDEV 45.1 37.1 - 48.7 fL 11/01/2019 1:01 AM CDT [facility] PLATELETS 284 140 - 350 K/uL 11/01/2019 1:01 AM CDT [facility] MPV 9.3 9.3 - 12.4 fL 11/01/2019 1:01 AM CDT [facility] NEUTROPHILS 59 % 11/01/2019 1:01 AM CDT [facility] LYMPHOCYTES 26 % 11/01/2019 1:01 AM CDT [facility] MONOCYTES 9 % 11/01/2019 1:01 AM CDT [facility] EOSINOPHILS 6 % 11/01/2019 1:01 AM CDT [facility] BASOPHILS 0 % 11/01/2019 1:01 AM CDT [facility] IMMATURE GRANULOCYTES 1 % 11/01/2019 1:01 AM T [facility] Comment:IG (Immature Granulo cyte) count includes Metamyelocytes, Myelocytes, and Promyelocytes NEUTROPHIL ABSOLUTE 6.45 1.90 - 7.00 K/uL 11/01/2019 1:01 AM T [facility] LYMPHOCYTE ABSOLUTE 2.85 0.70 - 4.50 K/uL 11/01/2019 1:01 AM CDT [facility] MONOCYTE ABSOLUTE 0.94 0.10 - 1.30 K/uL 11/01/2019 1:01 AM T [facility] EOSINOPHIL ABSOLUTE 0.70 0.00 - 0.70 K/uL 11/01/2019 1:01 AM T [facility] BASOPHILS ABSOLUTE 0.04 0.00 - 0.20 K/uL 11/01/2019 1:01 AM T [facility] IMMATURE GRANULOCYTES ABSOLUTE 0.05(H) 0.00 - 0.03 K/uL 11/01/2019 1:01 AM T [facility] Blood Venipuncture / Unknown 11/01/2019 12:53 AM CDT 11/01/2019 12:56 AM CDT Demario Koo DO HEMATOLOGY ORDERABLE S [facility]# [id number] [address] [place] [address] * LIPASE (11/01/2019 12:30 AM CDT) LIPASE 21 13 - 60 U/L 11/01/2019 1:25 AM CDT [facility] Blood Venipuncture / Unknown 11/01/2019 12:30 AM CDT 11/01/2019 12:33 AM CDT Demario Koo DO CHEMISTRY ORDERABLES [facility] JANES# [id number] [address] [place] [address] * (ABNORMAL) COMPREHENSIVE METABOLIC PANEL (11/01/2019 12:30 AM CDT) SODIUM 138 136 - 145 mmol/L 11/01/2019 1:19 AM CDT [facility] POTASSIUM 5.5(H) 3.5 - 5.0 mmol/L 11/01/2019 1:19 AM CDT [facility] Comment:Moderate hemolysis p resent. Can cause significant falsely elevated result. Redraw if indicated. CHLORIDE 103 98 - 107 mmol/L 11/01/2019 1:19 AM T [facility] CO2 20(L) 22 - 29 mmol/L 11/01/2019 1:19 AM CDT [facility] CALCIUM 9.8 8.6 - 10.2 mg/dL 11/01/2019 1:19 AM CDT [facility] BUN 11 6 - 20 mg/dL 11/01/2019 1:19 AM CDT [facility] CREATININE 0.55 0.51 - 0.95 mg/dL 11/01/2019 1:19 AM T [facility] GLUCOSE 143(H) 74 - 99 mg/dL 11/01/2019 1:19 AM CDT [facility] SERVICES [facility] TOTAL PROTEIN 7.5 6.7 - 8.6 g/dL 11/01/2019 1:19 AM CDT [facility] ALBUMIN 4.2 3.5 - 5.2 g/dL 11/01/2019 1:19 AM CDT [facility]. [facility] BILIRUBIN TOTAL 0.3 0.3 - 1.2 mg/dL 11/01/2019 1:19 AM CDT [facility]. [facility] ALKALINE PHOSPHATASE 82 35 - 104 U/L 11/01/2019 1:19 AM CDT [facility]. [facility] AST 27 <33 U/L 11/01/2019 1:19 AM CDT [facility] Comment:Hemolysis present. R esult may be falsely elevated. ALT 26 <34 U/L 11/01/2019 1:19 AM [facility] Comment:Hemolysis present. R esult may be falsely elevated. GFR >60 >=60 mL/min/1.7 3 sq meter 11/01/2019 1:19 AM [facility] Comment: eGFR has not been validated for [...] mL/min/1.7 3 sq meter 11/01/2019 1:19 AM [facility] ANION GAP 15 8 - 16 mmol/L 11/01/2019 1:19 AM [facility] Blood Venipuncture / Unknown 11/01/2019 12:30 AM CDT 11/01/2019 12:33 AM CDT Narrative [facility] - 11/01/2019 1:19 AM CD Samples containing indocyanine green cause interferences on Total and/or Direct Bilirubin and must not be measured. Demario Koo DO CHEMISTRY ORDERABLES [facility]# [id number] [address] [place] [address] [address] [address] documented in this encounter Visit Diagnoses Diagnosis Acute calculous cholecystitis- Primary Calculus of gallbladder with acute cholecystitis, without mention of obstruction Acalculous cholecystitis Cholecystitis, unspecified Right upper quadrant abdominal pain Abdominal pain, right upper quadrant Right upper quadrant abdominal pain Abdominal pain, right upper quadrant History of gastroschisis Ileus Paralytic ileus documented in this encounter Administered Medications Inactive Administered Medications - up to 3 most recent administrations Medication Order MAR Action Action Date Dose Rate Site acetaminophen (TYLENOL) tablet 650 mg 650 mg, Oral, EVERY 6 HOURS PRN, Starting on Thu11/01/19 at 0500, Until Thu11/08/19 at 1328, Other (See Comment), See admin instructions, Routine Given 11/02/2019 12:22 PM CDT 650 mg ivvyvkoziw-mlrtqkz-fbftsqogkvfgv (CEPACOL) lozenge 1 Each 1 Each, Mouth/Throat, [...] 60 mg Ab domen, Left Lower Quadrant fentaNYL PF (SUBLIMAZE) 50 mcg/mL injection 25 mcg 25 mcg, IV, POST-PROCEDURE Q 3 MINUTES PRN, 5 doses, Starting on Crystal 11/03/19 at 0700, Until Crystal 11/03/19 at 1521, Pain, Routine, PACU Given 11/03/2019 12:34 PM CDT 25 mcg Given 11/03/2019 12:10 PM CDT 25 mcg Given 11/03/2019 11:48 AM CDT 25 mcg gadoteridoL (PROHANCE) 279.3 mg/mL injection 20 mL 20 mL, IV, INTRA-PROCEDURE ONCE, 1 dose, Starting on Thu11/02/19 at 1137, Until Thu11/02/19 at 1151, Routine Contrast Given 11/02/2019 11:51 AM CDT 20 mL glucagon HCL 1 mg/mL injection 1 mg 1 mg, IM, SEE ADMIN INSTRUCTIONS, Starting on Thu11/01/19 at 0606, Until Thu11/08/19 at 1328, Routine HYDROmorphone (DILAUDID) 2 mg/mL injection 0.25 mg 0.25 mg, IV, POST-PROCEDURE Q 5 MINUTES PRN, Starting on Crystal 11/03/19 at 1429, Until Crystal 11/03/19 at 1521, Pain (See admin instructions), Routine, PACU Given 11/03/2019 2:53 PM CDT 0.25 mg Given 11/03/2019 2:48 PM CDT 0.25 mg Given 11/03/2019 2:37 PM CDT 0.25 mg iopamidoL (ISOVUE-300) 61 % injection 100 mL 100 mL, IV, INTRA-PROCEDURE ONCE, 1 dose, Starting on Thu11/01/19 at 0151, Until Thu11/01/19 at 0204, Routine Contrast Given 11/01/2019 2:04 AM CDT 100 mL lactated ringers infusion IV, at 150 mL/hr, PRE-PROCEDURE CONTINUOUS, Starting on Crystal 11/03/19 at 0645, Until Thu11/03/19 at 1139, Routine Continue from Pre-Op 11/03/2019 7:37 AM CDT New Bag 11/03/2019 6:45 AM CDT 150 mL/hr lactated ringers infusion IV, at 75 mL/hr, CONTINUOUS, Starting on Thu11/03/19 at 1145, Until Thu11/08/19 at 1328, Routine Rate Verify 11/07/2019 5:52 AM CDT 75 mL/ hr New Bag 11/07/2019 2:28 AM CDT 75 mL/hr Rate Change 11/07/2019 1:14 AM CDT 20 mL/hr magnesium citrate oral solution 296 mL 296 mL, Oral, DAILY PRN, Starting on Thu11/02/19 at 1044, Until Thu11/06/19 at 1024, Constipation, Routine Given 11/02/2019 4:14 PM CDT 296 mL morphine 4 mg/mL injection 2 mg 2 mg, IV, EVERY 4 HOURS PRN, Starting on Thu11/01/19 at 0433, Until Crystal 11/03/19 at 1614, Pain (See admin instructions), Routine Given 11/02/2019 5:18 PM CDT 2 mg Given 11/02/2019 8:23 AM CDT 2 mg Given 11/01/2019 5:42 PM CDT 2 mg morphine 4 mg/mL injection 2 mg 2 mg, IV, POST-PROCEDURE Q 5 MINUTES PRN, 5 doses, Starting on Thu11/03/19 at 0700, Until Crystal 11/03/19 at 1256, Pain, Routine, PACU Given 11/03/2019 12:56 PM CDT 2 mg Given 11/03/2019 12:34 PM CDT 2 mg Given 11/03/2019 12:23 PM CDT 2 mg morphine 4 mg/mL injection 2 mg 2 mg, IV, EVERY 4 HOURS PRN, Starting on Crystal 11/03/19 at 1613, Until Crystal 11/03/19 at 2311, Pain, Severe, Routine Given 11/03/2019 10:11 PM CDT 2 mg Given 11/03/2019 5:37 PM CDT 2 mg morphine 4 mg/mL injection 4 mg 4 mg, IV, ONE TIME ONLY, 1 dose, On Thu11/01/19 at 0030, Routine Given 11/01/2019 12:37 AM CDT 4 mg morphine 4 mg/mL injection 4 mg 4 mg, IV, ONE TIME ONLY, 1 dose, On Thu11/01/19 at 0300, Routine Given 11/01/2019 3:07 AM CDT 4 mg morphine 5 mg/mL CONE MARKER injection (adult opioid naive) IV, CONTINUOUS, Starting on Crystal 11/03/19 at 2315, Until 11/06/19 at 1023, Routine New Bag 11/04/2019 12:06 AM CDT naloxone (NARCAN) 0.4 mg/mL injection 0.1 mg [...] IV, ONE TIME ONLY, 1 dose, On Thu11/01/19 at 0030, Routine Given 11/01/2019 12:36 AM CDT 4 mg ondansetron (ZOFRAN) 4 mg/2 mL injection 4 mg 4 mg, IV, EVERY 6 HOURS PRN, Starting on Thu11/01/19 at 0541, Until Thu11/08/19 at 1328, Nausea/Emesis, Routine Given 11/03/2019 10:11 PM CDT 4 mg Given 11/03/2019 8:00 AM CDT 4 mg Given 11/02/2019 8:23 AM CDT 4 mg ondansetron (ZOFRAN) 4 mg/2 mL injection 4 mg 4 mg, IV, POST-PROCEDURE ONCE PRN, 1 dose, Starting on Thu11/03/19 at 0700, Until Crystal 11/03/19 at 1207, Nausea/Emesis, Routine, PACU Given 11/03/2019 12: 07 PM CDT 4 mg oxyCODONE (ROXICODONE) tablet 5 mg 5 mg, Oral, EVERY 2 HOURS PRN, Starting on Thu11/07/19 at 0641, Until Thu11/08/19 at 1328, Pain (See admin instructions), Routine Given 11/08/2019 5:47 AM CDT 5 mg pantoprazole (PROTONIX) injection 40 mg 40 mg, IV, DAILY, First dose on Thu11/04/19 at 0900, Until Discontinued, Routine, Indication: Gastroesophageal reflux disease (GERD) Given 11/07/2019 8:18 AM CDT 40 mg Given 11/06/2019 8:34 AM CDT 40 mg Given 11/05/2019 9:36 AM CDT 40 mg pantoprazole (PROTONIX) tablet 40 mg 40 mg, Oral, DAILY, First dose on Thu11/01/19 at 0900, Until Discontinued, Routine, Indication: Gastroesophageal reflux disease (GERD) Given 11/02/2019 12:22 PM CDT 40 mg Given 11/01/2019 9:30 AM CDT 40 mg pantoprazole (PROTONIX) tablet 40 mg 40 mg, Oral, DAILY BEFORE BREAKFAST, First dose on Thu11/08/19 at 0745, Until Discontinued, Routine, Indication: Gastroesophageal reflux disease (GERD) Given 11/08/2019 9:22 AM CDT 40 mg piperacillin-tazobactam (ZOSYN) 3.375 gram in dextrose [...] 10:07 PM CDT 3.375 Grams 100 mL/hr polyethylene glycol (MIRALAX) packet 17 Gram 17 [...] 9:30 AM CDT 100 mg sodium chloride 0.9% bolus solution 1,000 mL 1,000 mL, IV, ONE TIME ONLY, 1 dose, On Thu11/01/19 at 0030, at 2,000 mL/hr, Administer over 30 Minutes, Routine Bolus 11/01/2019 12:41 AM CDT 1,000 mL 2000 mL/hr sodium chloride 0.9% infusion IV, at 125 mL/hr, CONTINUOUS, Starting on Thu11/01/19 at 0030, Until Thu11/02/19 at 0029, Routine New Bag 11/01/2019 11:41 PM CDT 125 mL/hr New Bag 11/01/2019 3:43 PM CDT 125 mL/hr New Bag 11/01/2019 3:07 AM CDT 125 mL/hr sodium chloride 0.9% infusion IV, at 50 mL/hr, INTRA-PROCEDURE ONCE, 1 dose, Starting on Thu11/02/19 at 1138, Until Thu11/02/19 at 1152, Routine New Bag 11/02/2019 11:52 AM CDT 20 mL 50 mL/hr sodium chloride flush injection 10 mL 10 mL, IV, ONE TIME ONLY, 1 dose, On Thu11/01/19 at 0200, Routine Given 11/01/2019 2:04 AM CDT 10 mL sodium chloride flush injection 10 mL 10 mL, IV, ONE TIME ONLY, 1 dose, On Thu11/02/19 at 1145, Routine Given 11/02/2019 11:45 AM CDT 10 mL documented in this encounter Active and Recently Administered Medications Times are shown in CDT. Scheduled Medication Order 11/06/2019 11/07/2019 11/08/2019 buPROPion HCL (WELLBUTRIN XL) SR 24 hour tablet 150 mg 150 mg, Oral, DAILY EARLY, First dose on Thu11/01/19 at 0600, Until Discontinued, Routine 0600 (Refused - Provider: Sanjuana Evans RN) 0818 (Given - Provider: Ashley Willard RN - Comment: Pt wants to take with [...] Guo) 1227 (Given - Provider: Ashley Willard, SATURNINO) glucagon HCL 1 mg/mL injection 1 mg [...] GUILLERMO Guo) 0818 (Given - Provider: Ashley Willard, SATURNINO) pantoprazole (PROTONIX) tablet 40 mg 40 mg, Oral, DAILY BEFORE BREAKFAST, First dose on Thu11/08/19 at 0745, Until Discontinued, Routine, Indication: Gastroesophageal reflux disease (GERD) 0922 (Given - Provider: GUILLERMO Pierre) sertraline (ZOLOFT) tablet 100 mg 100 mg, Oral, DAILY, First dose on Thu11/01/19 at 0900, Until Discontinued, Routine 0900 (Refused - Provider: GUILLERMO Guo) 0818 (Given - Provider: Ashley Willard, SATURNINO) 0900 (Due) sugammadex (BRIDION) 100 mg/mL injection 444 mg 444 mg (rounded from 444.4 mg = 4 mg/kg ? 111.1 kg), IV, ONE TIME ONLY, 1 dose, On Thu11/03/19 at 0900, Stat, Intra-Procedure Continuous Medication Order 11/06/2019 11/07/2019 11/08/2019 lactated ringers infusion IV, at 75 mL/hr, CONTINUOUS, Starting on Crystal 11/03/19 at 1145, Until Thu11/08/19 at 1328, Routine 0556 (Paused - Provider: Sanjuana Evans, SATURNINO)0631 (Restarted - Provider: Sanjuana Evans RN) 0114 (Rate Change - Provider: Sanjuana Evans RN)0134 (Paused - Provider: Sanjuana Evans, SATURNINO)0228 (New Bag - Provider: Sanjuana Evans RN)0552 (Rate Verify - Provider: Sanjuana Evans RN) PRN Medication Order 11/06/2019 11/07/2019 11/08/2019 acetaminophen (TYLENOL) tablet 650 mg 650 mg, Oral, EVERY 6 HOURS PRN, Starting on Thu11/01/19 at 0500, Until Thu11/08/19 at 1328, Other (See Comment), See admin instructions, Routine bfbmqfjdrc-hlklzqh-vdsigavnqxwyk (CEPACOL) lozenge 1 Each 1 Each, Mouth/Throat, [...] Routine 0547 (Given - Provid er: Nuvia T Uy, RN) polyethylene glycol (MIRALAX) packet 17 Gram 17 Gram, Oral, DAILY PRN, Starting on Crystal 11/03/19 at 0114, Until 11/08/19 at 1328, Constipation, Routine documented in this encounter Additional Health Concerns Assessment Noted Time PHQ-9 Depression Total Score: 6 08/29/19 20 10:00 AM CDT documented as of this encounter Care Teams Sciences Dean Relationship Specialty Start Date End Date Francis Pereyra MD PCP - General Family Practice 02/08/18 12/08/21 documented as of this encounter
--- OUTSIDE RECORDS SUMMARY | 2024-06-08 20:22 | XMS_ITS | Encounter Summary ---
Author Organization [facility] Address [address] [facility] Attn: [place] [address] Care Team Providers Care Chain Builder Name Role Phone Francis Pereyra MD Primary Care Provider Rishi georges Encounter Details Date Type Department Care Team (Latest Contact Info) Description 11/03/2019 Travel Social History Tobacco Use Types Packs/Day [...] st Contact Info) Description 06/20/2024 9:30 AM CLERK TELEGRAPH SERVICE Office Visit [facility] Orthopedic Surgery at the [facility] Medicine [address] [place] [address] [place] [address] [address] [place] [address] 10/27/2024 2:45 PM CDT Office Visit [facility] G[facility]ology [facility] [address] [place] [address] Bebo Benites MD [address] [address] documented as of this encounter Visit Diagnoses Not on filedocumented in this encounter Additional Health Concerns Assessment Noted Time PHQ-9 Depression Total Score: 6 08/29/19 20 10:00 AM CDT documented as of this encounter Care Teams Chain Builder Relationship Specialty Start Date End Date Francis Pereyra MD PCP - General Family Practice 02/08/18 12/08/21 documented as of this encounter
--- OUTSIDE RECORDS SUMMARY | 2024-06-08 20:22 | XMS_ITS | Encounter Summary ---
Author Organization [facility] Address [address] [place] [address] Care Team Providers Care Print Decorator Name Role Phone Francis Pereyra MD Primary Care Provider Unava ilable Reason for Visit * Reason Comments Follow Up Surgery 11/03/2019 Encounter Details Date Type Department Care Team (Late st Contact Info) Description 11/11/2019 1:30 PM CDT Office [facility] [employer] [place] [address] [place] [address] Tessa Su, PROTOTYPE CARPENTER [address] [facility] [address] [place] [address] Encounter for post surgical wound check (Primary Dx); Breath sounds, abnormal Social History Tobacco Use [...] Sign Reading Time Taken Comments Blood Pressure 138/88 11/11/2019 1:16 PM CDT Pulse 102 11/11/2019 1:16 PM CDT Temperature 37.2 ??C (98.9 ??F) 11/11/2019 1:16 PM CD T Respiratory Rate 18 11/11/2019 1:16 PM CDT Oxygen Saturation 98% 11/11/2019 1:16 PM CDT Inhaled Oxygen Concentration - - Weight 111.1 kg (245 lb) 11/11/2019 1:16 PM CDT Height 165.1 cm (5' 5 ) 11/11/2019 1:16 PM CDT Body Mass Index 40.77 11/11/2019 1:16 PM CDT documented in this encounter Progress Notes * Tessa Su, MICHAEL - 11/11/2019 2:05 PM CDT Images from the original note were not included. HISTORY OF PRESENT ILLNESS Lis Phelan is a 34 y.o. female who presents for Chief Complaint Patient presents with ??? Follow Up Surgery 11/03/2019 Here for incision check post open cholecystectomy. Hx of staph infections in the past. Tested neg for MRSA screening during her recent hospitalization. Denies fevers, salome to abd without wound dge. Has been getting around her home, trying to take deep breaths, has intense pain to abd incision with deep breath and coughing. Eating and drinking well, having loose stools after each meal. C/o right mid back pain that is continuous. Rare cough, non productive. Hx of pna as a teen. Past Medical History: Diagnosis Date ??? Arthritis ??? Asthma ??? Biliary dyskinesia ??? Depression ??? Diabetes mellitus ??? Difficult intravenous access VERY hard IV stick use requests ultrasound ??? Eosinophilic esophagitis ??? GERD (gastroesophageal reflux disease) ??? Headache ??? History of shingles ??? Hyperlipidemia Current Outpatient Medications Medication Sig Dispense Refill ??? oxyCODONE (ROXICODONE) 5 mg tablet Take 1 Tablet (5 mg) by mouth every 8 hours as needed for severe pain. Max Daily Amount: 3 tablets 10 Tablet 0 ??? cetirizine (ZyrTEC) 10 mg tablet Take 10 mg by mouth daily. ??? buPROPion HCL (Wellbutrin XL) 150 mg Extended Release 24 hour tablet Take 1 Tablet (150 mg) by mouth daily fence post cutter. 30 Tablet 0 ??? ALPRAZolam (XANAX) 0.25 [...] Demerol [Meperidine] Swelling ??? Tramadol Hives BP 138/88 (BP Location: Left arm, Patient Position (BP): Sitting, BP Cuff Size: Large Adult) Pulse (!) 102 Temp 98.9 ??F (37.2 ??C) (Tympanic) Resp 18 Ht 5' 5 (1.651 m) Wt 111.1 kg (245 lb) LMP 11/08/2019 (Exact Date) SpO2 98% BMI 40.77 kg/m?? MEDICAL RECORD UPDATE Past Medical History: [...] HX SURGICAL OTHER 04/2004 adhesion removed ??? LA ESOPHAGOGASTRODUODENOSCOPY TRANSORAL DIAGNOSTIC N/A 05/17/2019 ESOPHAGOGASTRODUODENOSCOPY performed by Jena Cerda MD at [facility] GI LAB ??? LA REMOVAL GALLBLADDER N/A 11/03/2019 OPEN CHOLECYSTECTOMY performed by Gabbie Wheeler MD at [facility] OR MAIN Family History [...] reviewed and updated in computerized patient record. [address] Care Providers: Patient Care Team: Francis Pereyra MD as PCP - General (Family Practice) No Patient Care Coordination Note on file. Vital signs/Tobacco use BP 138/88 (BP Location: Left arm, Patient Position (BP): Sitting, BP Cuff Size: Large Adult) Pulse (!) 102 Temp 98.9 ??F (37.2 ??C) (Tympanic) Resp 18 Ht 5' 5 (1.651 m) Wt 111.1 kg (245 lb) LMP 11/08/2019 (Exact Date) SpO2 98% BMI 40.77 kg/m?? Tobacco Use (QM) reports that she quit smoking about 3 years ago. She has a 10.00 pack-year smoking history. She hasnever used smokeless tobacco. She is not a tobacco user. EXAMINATION REVIEW OF SYSTEMS Review of Systems Constitutional: Negative for chills, fever and malaise/fatigue. Respiratory: Positive for cough. Negative for sputum production, shortness of breath and wheezing. Rare cough Cardiovascular: Negative for chest pain and palpitations. Gastrointestinal: Positive for abdominal pain. Negative for nausea and vomiting. Incisional abd pain Genitourinary: Negative for dysuria, frequency and urgency. Musculoskeletal: Positive for back pain. Neurological: Negative for dizziness and headaches. Objective PHYSICAL EXAM Physical Exam [...] distress. Breath sounds: Normal breath sounds. No wheezing, rhonchi or rales. Abdominal: General: Abdomen is protuberant. Bowel sounds are increased. Palpations: Abdomen is soft. Tenderness: There is abdominal tenderness. Hernia: No hernia is present. Comments: Abd incision with intact salome, well approximated incision. Slight erythema around individual salome. No dge, dry. Slight yellow ecchymosis inferior to wound mid section. Soft, no masses Skin: General: Skin is warm and dry. Neurological: Mental Status: She is alert and oriented to person, place, and time. No results found for any visits on 11/11/19 (from the past 24 hour(s)). ASSESSMENT and PLAN: Lis was seen today for follow up. Diagnoses and all orders for this visit: Encounter for post surgical wound check Breath sounds, abnormal - XR CHEST PA AND LATERAL 2 VW; Future Post op wound-appears to be healing as expected without signs of infection. Breath sounds diminished right mid and lower lobes without fevers or cough-CXR suspect atelectasis,discussed DB, incisional splinting. Keep follow up with surgeon as directed. Requested refill on pain med-enc to call surgeon for refill -oxycodone. documented in this encounter Plan of Treatment Upcoming Encounters Date Type Department Care Team (Late st Contact Info) Description 06/20/2024 9:30 AM PERSONNEL ADVISER [facility] at the [facility] [address] [place] [address] [place] [address] [place] [address] 10/27/2024 2:45 PM CDT [facility] [address] [place] [address] Bebo Benites MD [address] [place] [address] Scheduled Orders Name Type Priority Associated Diagnoses Orde r Schedule XR CHEST PA AND LATERAL 2 VW Imaging Routine Breath sounds, abnormal 1 Occurrences starting 11/11/2019 until 11/10/2020 documented as of this encounter Visit Diagnoses Diagnosis Encounter for post surgical wound check- Primary Breath sounds, abnormal Abnormal chest sounds documented in this encounter Additional Health Concerns Assessment Noted Time PHQ-9 Depression Total Score: 6 08/29/19 20 10:00 AM CDT documented as of this encounter Care Teams Print Decorator Relationship Specialty Start Date End Date Francis Pereyra MD PCP - General Family Practice 02/08/18 12/08/21 documented as of this encounter
--- OUTSIDE RECORDS SUMMARY | 2024-06-08 20:22 | XMS_ITS | Encounter Summary ---
Author Organization [facility] Address [address] [place] [address] Care Team Providers Care Cable Tester Name Role Phone Francis Pereyra MD Primary Care Provider Unava ilable Reason for Visit * Reason Onset Date Comments Medication Question 05/18/2019 Encounter Details Date Type Department Care Team (Late st Contact Info) Description 05/18/2019 Telephone [facility] Gastroenterology [place] [address] [address] Jena Cerda MD [address] [place] [address] [place] [address] Medication Question Social History Tobacco Use Types Packs/Day Years [...] encounter Miscellaneous Notes * Telephone Encounter - Michelle Enciso - 05/20/2019 9:10 AM CST Called pt to inform her that script has been sent in. She will call us back to schedule f/u apt. ACE MAINTENANCE * Telephone Encounter - Jena Cerda MD - 05/20/2019 8:14 AM FURNACE MAINTENANCE Please let her know that path shows Eosinophillic esophagitis. Protonix 40 mg twice daily sent to pharmacy. Follow up with me in 4 weeks. ACE MAINTENANCE * Telephone Encounter - Michelle Enciso - 05/18/2019 1:48 PM CST Pt says you were going to send script to pharmacy? I told her I think you were waiting for pathology before anything sent??? ACE MAINTENANCE documented in this encounter Plan of Treatment Upcoming Encounters Date Type Department Care Team (Late st Contact Info) Description 06/20/2024 9:30 AM FURNACE MAINTENANCE Office Visit [facility] Orthopedic Surgery at the [facility] [address] [place] [address] [place] [address] [place] [address] 10/27/2024 2:45 PM CDT Office Visit [facility] Gastroenterology [facility] [address] [place] [phone] Bebo Benites MD [address] [address] [place] [address] documented as of this encounter Visit Diagnoses Not on filedocumented in this encounter Additional Health Concerns Assessment Noted Time PHQ-9 Depression Total Score: 6 07/08/19 19 9:00 AM FURNACE MAINTENANCE documented as of this encounter Care Teams Cable Tester Relationship Specialty Start Date End Date Francis Pereyra MD PCP - General Family Practice 02/08/18 12/08/21 documented as of this encounter
--- OUTSIDE RECORDS SUMMARY | 2024-06-08 20:22 | XMS_ITS | Encounter Summary ---
Author Organization [facility] Address [address] [place] [address] Care Team Providers Care Contractor General Building Name Role Phone Francis Pereyra MD Primary Care Provider Unava ilable Reason for Visit * Reason Comments Immunization/Injection Encounter Details Date Type Department Care Team (Late st Contact Info) Description 03/23/2019 11:15 AM CDT Immunization [facility] at Work [employer] [address] [place] [address] Need for influenza vaccination (Primary Dx) Social History Tobacco Use Types [...] encounter Progress Notes * Kim Chavez - 03/24/2019 11:10 AM CDT Pt received flu shot in left deltoid, pt tolerated well. Given by Rosalba. documented in this encounter Plan of Treatment Upcoming Encounters Date Type Department Care Team (Late st Contact Info) Description 06/20/2024 9:30 AM RECREATION CLERK Office Visit [facility] Orthopedic Surgery at the [facility] Medicine [address] [facility] [address] [place] [address] [place] [address] [place] [address] 10/27/2024 2:45 PM CDT Office Visit [facility] Gastroenterology [place] [address] [address] [facility] [facility] [address] [place] [address] Bebo Benites MD [address] [facility] [address] [place] [address] documented as of this encounter Visit Diagnoses Diagnosis Need for influenza vaccination- Primary Need for prophylactic vaccination and inoculation against influenza documented in this encounter Additional Health Concerns Assessment Noted Time PHQ-9 Depression Total Score: 6 07/08/19 19 9:00 AM RECREATION CLERK documented as of this encounter Care Teams Contractor General Building Relationship Specialty Start Date End Date Francis Pereyra MD PCP - General Family Practice 02/08/18 12/08/21 documented as of this encounter
--- OUTSIDE RECORDS SUMMARY | 2024-06-08 20:22 | XMS_ITS | Encounter Summary ---
Author Organization [facility] Address [address] [place] [address] Care Team Providers Care Marketing Project Manager Name Role Phone Francis Pereyra MD Primary Care Provider Unava ilable Reason for Visit * Reason Comments Depression Encounter Details Date Type Department Care Team (Late st Contact Info) Description 08/29/2019 10:45 AM CDT Office Visit [facility] at [facility] [employer] [place] [address] [place] [phone] Francis Pereyra MD NO ADDRESS ON FILE Moderate episode of recurrent major depressive disorder (Primary Dx); Generalized anxiety disorder Social History [...] Taken Comments Blood Pressure - - Pulse 91 08/29/2019 10:50 AM CDT Temperature - - Respiratory Rate 16 08/29/2019 10:50 AM CDT Oxygen Saturation 97% 08/29/2019 10:50 AM CDT Inhaled Oxygen Concentration - - Weight 113.4 kg (250 lb) 08/29/2019 10:50 AM CDT Height 165.1 cm (5' 5 ) 08/29/2019 10:50 AM CDT Body Mass Index 41.6 08/29/2019 10:50 AM CDT documented in this encounter Progress Notes * Francis Pereyra MD - 08/29/2019 10:51 AM CDT HISTORY OF PRESENT ILLNESS Lis Phelan, a 34 y.o. female presents with a chief complaint of Chief Complaint Patient presents with ??? Depression Subjective HPI Brought by timber supervisor as walk in. Actively crying. Depression worse than ever. Nurse apprpriately recommended timber supervisor take ms phelan immediately to [facility]. Patient refused Tobacco Intervention Clearly not the time to discuss this Depression Screen PHQ-2 Total: 6 (08/29/19 1000) PHQ-9 Total: 25 (08/29/19999) Positive: PHQ-2 score >= 3 or PHQ-9 score >= 9 PHQ-2 Total: 6 (08/29/2019 10:00 AM) PHQ-9 Total: 25 (08/29/2019 10:00 AM) DEPRESSION PLAN OF CARE She was given a prescription for an antidepressant, Her antidepressant medication was reviewed, Shewas scheduled for a future appointment to do an additional evaluation, Her suicide risk assessment was completed and PHQ-9 or PHQ-2 score positive. Referral to [facility] for follow-up Blood Pressure BP Readings from Last 3 Encounters: 08/09/19 134/86 07/19/19 122/80 07/01/19 126/88 Normal BMI Range: 18 & older: > or = 18.5 and < 25 Body mass index is 41.6 kg/m??. Clearly not the day to discuss This medical record reflects the history of present illness as obtained by myself in discussion with the patient. ROS Review of Systems - History obtained from chart review and the patient Psychological ROS: positive for - anxiety, change in sleep, concentration difficulties, crying episodes, decreased motivation, depression, difficulty concentrating, excessive worry, feeling anxious, feeling overwhelmed, mood swings, sleep disturbances and suicidal ideation Objective PHYSICAL EXAM Physical Examination: General appearance - oriented to person, place, and time, in mild to moderatedistress, ill-appearing and crying Mental status - alert, oriented to person, place, and time, depressed mood, anxious SUICIDE CARE: Suicide Screen Little interest or pleasure in doing things:: Nearly every day (08/29/19 1000) Feeling down, depressed, or hopeless:: Nearly every day (08/29/19999) Score - Total of question 1 and 2: 6 (08/29/19999) PHQ-9 Questions Trouble falling or staying asleep, or sleeping too much:: Nearly every day (08/29/19999) Feeling tired or having little energy:: Nearly every day (08/29/19999) Poor appetite or overeating:: Nearly every day (08/29/19999) Feeling bad about yourself-or that you are a failure or have let yourself or your family down:: Nearly every day (08/29/19999) Trouble concentrating on things, such as reading the newspaper or watching television:: Nearly every day (08/29/19999) Moving or speaking so slowly that other people could have noticed. Or the opposite-being so fidgetyor restless that you have been moving around a lot more than usual:: Nearly every day (08/29/19999) Thoughts that you would be better off , or of hurting yourself in some way:: Several Days (08/29/19999) PHQ-9 Total: 25 (08/29/19999) If you checked off any problems, how difficult have these problems made it for you to do your work,take care of things at home, or get along with other people?: (!) Very difficult (08/29/19999) I have identified the following suicide risk and protective factors: Suicide Risk Factors mental illness: depression, anxiety and bipolar disorder and loss of relationship/recent stressor Suicide Protective Factors access to adequate health care, receiving therapy, support from family/friends and support from providers I completed the suicide risk assessment. I considered the patient's risk factors, protective factors, and reviewed all inquiry questions. I determined the patient's risk for suicide to be: low A safety plan (available at .SAFETYPLAN) was completed and reviewed with the patient/wicker molded candles/guardian and scanned into the EHR or included on the AVS. Yes If not already documented in the safety plan, I discussed appropriate interventions to address and reduce the risk for suicide including: Patient will be observed/monitored by family, Patient identified reasons to live: connection to family/community organization and responsibility for others and Encouraged compliance with prescribed medication. I provided the patient with the Suicide Prevention Lifeline number Yes Suicide Resources If unable to maintain safety, the patient/wicker molded candles/guardian verbalized willingness to seek help via our on-call system, Nurse deputy probation officer, calling 911, or by going to the Emergency Department. The patient/wicker molded candles verbalized understanding and showed agreement with this plan. Assessment ASSESSMENT AND PLAN ICD-10-CM ICD-9-CM 1. Moderate episode of recurrent major depressive disorder F33.1 296.32 buPROPion HCL (Wellbutrin XL) 150 mg Extended Release 24 hour tablet ALPRAZolam (XANAX) 0.25 mg tablet 2. Generalized anxiety disorder F41.1 300.02 buPROPion HCL (Wellbutrin XL) 150 mg Extended Release 24 hour tablet ALPRAZolam (XANAX) 0.25 mg tablet Will add wellbutrin Will allow few tabs of xanax Patient to contact [facility] and [facility] Follow before weekend documented in this encounter Miscellaneous Notes * Patient Instructions - Francis Pereyra MD - 08/29/2019 11:23 AM CDT An After Visit Summary was printed and given to the patient. Continue sertraline Begin taking wellbutrin along with sertraline May take xanax for acute anxiety as prescribed. Follow up visit before the weekend I provided the patient with the Suicide Prevention Lifeline number Suicide Resources If unable to maintain safety, the patient/wicker molded candles/guardian verbalized willingness to seek help via calling 911, or by going to the Emergency Department. The patient/wicker molded candles verbalized understanding and showed agreement with this plan. documented in this encounter Plan of Treatment Upcoming Encounters Date Type Department Care Team (Late st Contact Info) Description 06/20/2024 9:30 AM REGIONAL DIRECTOR Office Visit [facility] Orthopedic Surgery at the [facility] [address] [facility] [address] [place] [address] [place] [address] [place] [address] 10/27/2024 2:45 PM CDT Office Visit [facility] G[facility]enterology [facility] [address] [facility] [address] [place] [address] Bebo Benites MD [address] [facility] [address] [place] [address] documented as of this encounter Visit Diagnoses Diagnosis Moderate episode of recurrent major depressive disorder- Primary Generalized anxiety disorder documented in this encounter Additional Health Concerns Assessment Noted Time PHQ-9 Depression Total Score: 6 08/29/19 20 10:00 AM CDT documented as of this encounter Care Teams Marketing Project Manager Relationship Specialty Start Date End Date Francis Pereyra MD PCP - General Family Practice 02/08/18 12/08/21 documented as of this encounter
--- OUTSIDE RECORDS SUMMARY | 2024-06-08 20:22 | XMS_ITS | Encounter Summary ---
Author Organization [facility] Address [address] [place] [address] Care Team Providers Care Grain Blender Name Role Phone Francis Pereyra MD Primary Care Provider Unava ilable Reason for Visit * Reason Comments Follow Up Eye Pain Encounter Details Date Type Department Care Team (Late st Contact Info) Description 07/19/2019 8:00 AM CAMPAIGN MANAGEMENT SPECIALIST Office Visit [facility] at Work [employer] [place] [address] [address] Tessa Su, MICHAEL [address] [facility] [address] [place] [address] Lymphadenopathy (Primary Dx); Mild intermittent asthma without complication; Screening for condition; Microalbuminuria Social History Tobacco Use Types Packs/Day Years [...] Reading Time Taken Comments Blood Pressure 122/80 07/19/2019 8:07 AM CAMPAIGN MANAGEMENT SPECIALIST Pulse 94 07/19/2019 8:07 AM CAMPAIGN MANAGEMENT SPECIALIST Temperature 36.8 ??C (98.3 ??F) 07/19/2019 8:07 AM CS T Respiratory Rate 18 07/19/2019 8:07 AM CAMPAIGN MANAGEMENT SPECIALIST Oxygen Saturation 98% 07/19/2019 8:07 AM CAMPAIGN MANAGEMENT SPECIALIST Inhaled Oxygen Concentration - - Weight 112.5 kg (248 lb) 07/19/2019 8:07 AM CAMPAIGN MANAGEMENT SPECIALIST Height 165.1 cm (5' 5 ) 07/19/2019 8:07 AM CAMPAIGN MANAGEMENT SPECIALIST Body Mass Index 41.27 07/19/2019 8:07 AM CAMPAIGN MANAGEMENT SPECIALIST documented in this encounter Progress Notes * Tessa Su, LINUX CONSULTANT - 07/19/2019 12:35 PM CST HISTORY OF PRESENT ILLNESS Lis Phelan is a 34 y.o. female who presents for Chief Complaint Patient presents with ??? Follow Up ??? Eye Pain Son scratched her left eye-has localized area that was painful yesterday and is better today. Vision clear. No dge. Lesion to left ear area has resolved. It is flat again, no fevers, dge. Non tender to touch. Past Medical History: Diagnosis Date ??? Arthritis ??? Asthma ??? Depression ??? Diabetes mellitus ??? Difficult intravenous access VERY hard IV stick use requests ultrasound ??? GERD (gastroesophageal reflux disease) ??? Headache ??? History of shingles ??? HTN (hypertension) ??? Hyperlipidemia Current Outpatient Medications Medication Sig Dispense Refill ??? rosuvastatin (CRESTOR) 40 mg tablet Take [...] (IMPLANON SDRM) by Subdermal route. ??? [DISCONTINUED] albuterol HFA 90 mcg inhaler Take 1-2 Puffs by inhalation every 4 hours as needed for Shortness of Breath or Wheezing. 6.7 Gram 3 No current facility-administered medications for this visit. Allergies Allergen Reactions ??? Chantix [Varenicline] Anaphylaxis ??? Metronidazole Nausea and Vomiting Other reaction(s): Vomiting ??? Demerol [Meperidine] Swelling ??? Tramadol Hives BP 122/80 (BP Location: Left arm, Patient Position (BP): Sitting, BP Cuff Size: Large Adult) Pulse 94 Temp 98.3 ??F (36.8 ??C) (Tympanic) Resp 18 Ht 5' 5 (1.651 m) Wt 112.5 kg (248 lb) SpO2 98% BMI 41.27 kg/m?? MEDICAL RECORD UPDATE Past Medical History: Diagnosis Date ??? Arthritis ??? Asthma ??? Depression ??? Diabetes mellitus ??? Difficult intravenous access VERY hard IV stick use requests ultrasound ??? GERD (gastroesophageal reflux disease) ??? Headache ??? History of shingles ??? HTN (hypertension) ??? Hyperlipidemia Past Surgical History: Procedure Laterality Date ??? HX GASTROSCHISIS CLOSURE ??? HX SURGICAL OTHER 04/2004 adhesion removed ??? [place] ESOPHAGOGASTRODUODENOSCOPY TRANSORAL DIAGNOSTIC N/A 05/17/2019 ESOPHAGOGASTRODUODENOSCOPY performed by Jena Cerda MD at [facility] Family History Problem Relation [...] reviewed and updated in computerized patient record. [address] Care Providers: Patient Care Team: Francis Pereyra MD as PCP - General (Family Practice) No Patient Care Coordination Note on file. Vital signs/Tobacco use BP 122/80 (BP Location: Left arm, Patient Position (BP): Sitting, BP Cuff Size: Large Adult) Pulse 94 Temp 98.3 ??F (36.8 ??C) (Tympanic) Resp 18 Ht 5' 5 (1.651 m) Wt 112.5 kg (248 lb) SpO2 98% BMI 41.27 kg/m?? Blood Pressure BP Readings from Last 3 Encounters: 07/19/19 122/80 07/01/19 126/88 05/30/19 (!) 140/112 BMI POC (QM) Body mass index is 41.27 kg/m??. Normal BMI range: 18 & older: > or = 18.5 and < 25 Abnormal high BMI: Patient counseled on lifestyle modifications including weight loss and daily exercise. The 10-year CVD risk score (Syeda et al., 2008) is: 3.8% Values used to calculate the score: Age: 34 years Sex: Female Diabetic: Yes Tobacco smoker: No Systolic Blood Pressure: 122 mmHg Is BP treated: No HDL Cholesterol: 36 mg/dL Total Cholesterol: 193 mg/dL Consider Statins if 10 year risk >7.5-10% Tobacco Use (QM) reports that she quit smoking about 3 years ago. She has never used smokeless tobacco. She is not a tobacco user. EXAMINATION REVIEW OF SYSTEMS Review of Systems Constitutional: Negative for chills, fever and malaise/fatigue. Respiratory: Negative for cough, sputum production, shortness of breath and wheezing. Cardiovascular: Negative for chest pain. Neurological: Negative for dizziness and headaches. Objective PHYSICAL EXAM Physical Exam Constitutional: Appearance: She is well-developed. HENT: Head: Normocephalic and atraumatic. Right Ear: Tympanic membrane and ear canal normal. Left Ear: Tympanic membrane and ear canal normal. Nose: Nose normal. Mouth/Throat: Lips: [place]. Mouth: Mucous membranes are moist. Tonsils: Swellin on the right. 0 on the left. [...] Upper Body: Right upper body: No supraclavicular or epitrochlear adenopathy. Left upper body: No supraclavicular or epitrochlear adenopathy. Skin: General: Skin is warm and dry. Neurological: Mental Status: She is alert and oriented to person, place, and time. No results found for any visits on 07/19/19 (from the past 24 hour(s)). ASSESSMENT and PLAN: Lis was seen today for follow up and eye pain. Diagnoses and all orders for this visit: Lymphadenopathy Mild intermittent asthma without complication - albuterol HFA 90 mcg inhaler; Take 1-2 Puffs by inhalation every 4 hours as needed for Shortness of Breath or Wheezing. Screening for condition - Cancel: TSH - TSH; Future - COMPREHENSIVE METABOLIC PANEL; Future - COMPREHENSIVE METABOLIC PANEL - TSH - CBC WITH DIFFERENTIAL - HEMOGLOBIN A1C - Cancel: COMPREHENSIVE METABOLIC PANEL Microalbuminuria - MICROALBUMIN/CREATININE RATIO, RANDOM UR Other orders - rosuvastatin (CRESTOR) 40 mg tablet; Take 40 mg by mouth daily at bedtime. - sertraline (ZOLOFT) 100 mg tablet; Take 100 mg by mouth daily. Lymphadenopathy-resolved. Will check labs. OM-resolved. F/U if lymph node enlargement reappears. AIGN MANAGEMENT SPECIALIST documented in this encounter Plan of Treatment Upcoming Encounters Date Type Department Care Team (Late st Contact Info) Description 06/20/2024 9:30 AM CAMPAIGN MANAGEMENT SPECIALIST Office Visit [facility] Orthopedic Surgery at the [facility] [address] [place] [phone] [place] [address] [place] [address] 10/27/2024 2:45 PM CDT Office Visit [facility] Gastroenterology [facility] [address] [place] [address] Bebo Benites MD [address] [facility] [address] [place] [address] documented as of this encounter Procedures Procedure Name Priority Date/Time Associated Diagnosis Comments MICROALBUMIN/CREATININ E RATIO, RANDOM UR Routine 07/19/2019 8:40 AM CAMPAIGN MANAGEMENT SPECIALIST Microalbuminuria CBC WITH DIFFERENTIAL Routine 07/19/2019 8:40 AM CAMPAIGN MANAGEMENT SPECIALIST Screening for condition TSH Routine 07/19/2019 8:40 AM CAMPAIGN MANAGEMENT SPECIALIST Screening for condition HEMOGLOBIN A1C Routine 07/19/2019 8:40 AM CAMPAIGN MANAGEMENT SPECIALIST Screening for condition COMPREHENSIVE METABOLIC PANEL Routine 07/19/2019 8:40 AM CAMPAIGN MANAGEMENT SPECIALIST Screening for condition documented in this encounter Results * (ABNORMAL) MICROALBUMIN/CREATININE RATIO, RANDOM UR (07/19/2019 8:40 AM CAMPAIGN MANAGEMENT SPECIALIST) Creatinine, Urine 233.0 Not Estab. mg/dL [facility] MICROALBUMIN URINE 89.5 Not Estab. ug/mL [facility] MICROALBUMIN/CREA T RATIO, UR 38(H) 0 - 29 mg/g creat [facility] Comment: ? Normal: ?0 - ??29 ? Moderately increased: 30 - 300 ? Severely increased: ? >300 ?Please note reference interval change Urine URINE SPECIMEN OBTAINED BY CLEAN CATCH PROCEDURE / Unknown 07/19/2019 8:40 AM CAMPAIGN MANAGEMENT SPECIALIST 07/19/2019 Narrative [facility] - 07/20/2019 10:36 AM CAMPAIGN MANAGEMENT SPECIALIST Performed at: ??01 - [facility] [address], [place], [place] ??[id number] Lpn Instructor: Elan Crawford PhD, Phone: ??[phone] Tessa Su LINUX CONSULTANT URINE ORDERABLE S [facility] [phone] * (ABNORMAL) HEMOGLOBIN A1C (07/19/2019 8:40 AM CAMPAIGN MANAGEMENT SPECIALIST) Pathologist [facility] HEMOGLOBIN A1C 6.1(H) 4.8 - 5.6 % [facility] Comment: ? Prediabetes: 5.7 - 6.4 ? Diabetes: >6.4 ? Glycemic control for adults with diabetes: <7.0 Blood 07/19/2019 8:40 AM CAMPAIGN MANAGEMENT SPECIALIST 07/19/2019 Narrative [facility] - 07/20/2019 4:35 AM CAMPAIGN MANAGEMENT SPECIALIST Performed at: ??01 - [facility] ??[id number] Lpn Instructor: Elan Crawford PhD, Phone: ??[phone] Tessa Su NP CHEMISTRY ORDER MIGUELITO Performing Organization Address [facility]/ZIP Co de Phone Number [facility] [phone] * (ABNORMAL) CBC WITH DIFFERENTIAL (07/19/2019 8:40 AM CAMPAIGN MANAGEMENT SPECIALIST) Pathologist [facility] WBC 7.0 3.4 - 10.8 x10E3/uL [facility] [...] x10E3/uL [facility] Blood 07/19/2019 8:40 AM CAMPAIGN MANAGEMENT SPECIALIST 07/19/2019 Narrative [facility] - 07/20/2019 9:36 AM CAMPAIGN MANAGEMENT SPECIALIST Performed at: ??01 - [facility] ??[id number] Lpn Instructor: Elan Crawford PhD, Phone: ??[phone] Tessa Su NP HEMATOLOGY DEVIKA MARTINEZ [facility] [phone] * (ABNORMAL) COMPREHENSIVE METABOLIC PANEL (07/19/2019 8:40 AM CAMPAIGN MANAGEMENT SPECIALIST) GLUCOSE CANCELED mg/dL [facility] Comment: Test not performed. ??Specimen received uncentrifuged or improperly centrifuged. Result canceled by the ancillary. BUN 10 6 - 20 mg/dL [facility] CREATININE 0.63 0.57 - 1.00 mg/dL [facility] GFR 118 >59 mL/min/1. 73 [facility] GFR, 136 >59 mL/min/1. 73 [facility] BUN/CREAT RATIO 16 9 - 23 [facility] SODIUM 141 134 - 144 mmol/L [facility] POTASSIUM CANCELED mmol/L [facility] Comment: Test not performed. ??Specimen received uncentrifuged or improperly centrifuged. Result canceled by the ancillary. CHLORIDE 104 96 - 106 mmol/L [facility] CO2 16(L) 20 - 29 mmol/L [facility] CALCIUM 9.3 8.7 - 10.2 mg/dL [facility] TOTAL PROTEIN 7.2 6.0 - 8.5 g/dL [facility] ALBUMIN 4.4 3.8 - 4.8 g/dL [facility] Comment:Please note refere nce interval change GLOBULIN 2.8 1.5 - 4.5 g/dL [facility] ALBUMIN/GLOBULIN RATIO 1.6 1.2 - 2.2 [facility] BILIRUBIN TOTAL 0.4 0.0 - 1.2 mg/dL [facility] ALKALINE PHOSPHATASE 79 39 - 117 IU/L [facility] AST 27 0 - 40 IU/L [facility] ALT 31 0 - 32 IU/L [facility] Blood 07/19/2019 8:40 AM CAMPAIGN MANAGEMENT SPECIALIST 07/19/2019 Narrative [facility] - 07/20/2019 12:36 PM CAMPAIGN MANAGEMENT SPECIALIST Performed at: ??[address] ??[id number] Lpn Instructor: Elan Crawford PhD, Phone: ??[phone] Tessa Su NP CHEMISTRY ORDER MIGUELITO Performing Organization Address [facility] Co ne Phone Number [facility] [phone] * TSH (07/19/2019 8:40 AM CAMPAIGN MANAGEMENT SPECIALIST) TSH 1.830 0.450 - 4.500 uIU/mL [facility] Blood 07/19/2019 8:40 AM CAMPAIGN MANAGEMENT SPECIALIST 07/19/2019 Narrative [facility] - 07/20/2019 9:36 AM CAMPAIGN MANAGEMENT SPECIALIST Performed at: ?? - [facility] ??[id number] Lpn Instructor: Elan Crawford PhD, Phone: ??[phone] Tessa Su NP CHEMISTRY ORDER MIGUELITO [facility] [phone] documented in this encounter Visit Diagnoses Diagnosis Lymphadenopathy- Primary Enlargement of lymph nodes Mild intermittent asthma without complication Unspecified asthma Screening for condition Screening for unspecified condition Microalbuminuria Proteinuria documented in this encounter Additional Health Concerns Assessment Noted Time PHQ-9 Depression Total Score: 6 07/08/19 19 9:00 AM CAMPAIGN MANAGEMENT SPECIALIST documented as of this encounter Care Teams Grain Blender Relationship Specialty Start Date End Date Francis Pereyra MD PCP - General Family Practice 02/08/18 12/08/21 documented as of this encounter
--- OUTSIDE RECORDS SUMMARY | 2024-06-08 20:22 | XMS_ITS | Encounter Summary ---
Author Organization [facility] Address [address] Attn: [place] [address] Care Team Providers Care Linux Consultant Name Role Phone Francis Pereyra MD Primary Care Provider Rishi georges Encounter Details Date Type Department Care Team (Latest Contact Info) Description 11/01/2019 Travel Social History Tobacco Use Types Packs/Day [...] st Contact Info) Description 06/20/2024 9:30 AM WATER HYDRANT INSTALLER Office Visit [facility] Orthopedic Surgery at the [facility] [address] [place] [address] [place] [address] [place] [address] 10/27/2024 2:45 PM CDT Office Visit [facility] Gastroenterology [facility] [address] [address] [place] [address] Bebo Benites MD [address] [address] documented as of this encounter Visit Diagnoses Not on filedocumented in this encounter Additional Health Concerns Assessment Noted Time PHQ-9 Depression Total Score: 6 08/29/19 20 10:00 AM CDT documented as of this encounter Care Teams Linux Consultant Relationship Specialty Start Date End Date Francis Pereyra MD PCP - General Family Practice 02/08/18 12/08/21 documented as of this encounter
--- OUTSIDE RECORDS SUMMARY | 2024-06-08 20:22 | XMS_ITS | Encounter Summary ---
Author Organization [facility] Address [address] [place] [address] Care Team Providers Care Automobile Mechanic Assistant Name Role Phone Francis Pereyra MD Primary Care Provider Unava ilable Reason for Visit * Reason Onset Date Comments Medication Refill 07/19/2019 Encounter Details Date Type Department Care Team (Late st Contact Info) Description 07/19/2019 Telephone [facility] at Work [employer] [place] [address] [place] [address] [place] [address] [facility] [address] [place] [address] Medication Refill Social History Tobacco Use Types Packs/Day Years [...] Telephone Encounter - Tessa Su NP - 07/19/2019 11:07 AM HEAD TRANSFER CLERK Sent RX for filler picker TRANSFER CLERK * Telephone Encounter - Henrietta Andrade - 07/19/2019 9:42 AM CST Pt asked for a refill of her albuterol inhaler when she left the office today. There are no refillsleft in pt's chart. Please advise. TRANSFER CLERK documented in this encounter Plan of Treatment Upcoming Encounters Date Type Department Care Team (Late st Contact Info) Description 06/20/2024 9:30 AM HEAD TRANSFER CLERK Office Visit [facility] Orthopedic Surgery at the [facility] [address] [facility] [place] [address] [place] [address] [place] [address] 10/27/2024 2:45 PM CDT Office Visit [facility] Gastroenterology [address] [place] [address] Bebo Benites MD [address] [facility] [address] [place] [address] documented as of this encounter Visit Diagnoses Not on filedocumented in this encounter Additional Health Concerns Assessment Noted Time PHQ-9 Depression Total Score: 6 07/08/19 19 9:00 AM HEAD TRANSFER CLERK documented as of this encounter Care Teams Automobile Mechanic Assistant Relationship Specialty Start Date End Date Francis Pereyra MD PCP - General Family Practice 02/08/18 12/08/21 documented as of this encounter
--- OUTSIDE RECORDS SUMMARY | 2024-06-08 20:22 | XMS_ITS | Encounter Summary ---
Author Organization [facility] Address [address] [place] [address] Care Team Providers Care Track Laying Equipment Operator Name Role Phone Francis Pereyra MD Primary Care Provider Rishi georges Encounter Details Date Type Department Care Team (Late Contact Info) Description 05/24/2019 Abstract [facility] Gastroenterology [facility] [address] [place] [address] Jena Cerda MD [address] [place] [address] Social History Tobacco Use Types Packs/Day Years [...] (Late Contact Info) Description 06/20/2024 9:30 AM MAGNETIC HEALER Office Visit [facility] Orthopedic Surgery at the [facility] [address] [place] [address] [place] [address] [place] [address] 10/27/2024 2:45 PM CDT Office Visit [facility] Gastroenterology [facility] [address] [place] [address] Bebo Benites MD [address] [facility] [address] [place] [address] documented as of this encounter Visit Diagnoses Not on filedocumented in this encounter Additional Health Concerns Assessment Noted Time PHQ-9 Depression Total Score: 6 07/08/19 19 9:00 AM MAGNETIC HEALER documented as of this encounter Care Teams Track Laying Equipment Operator Relationship Specialty Start Date End Date Francis Pereyra MD PCP - General Family Practice 02/08/18 12/08/21 documented as of this encounter
--- OUTSIDE RECORDS SUMMARY | 2024-06-08 20:22 | XMS_ITS | Encounter Summary ---
Author Organization [facility] Address [address] [place] [address] Care Team Providers Care Lunch Counter Manager Name Role Phone Daniel Silva MD Primary Care Provider Unava ilable Reason for Visit * Auth/Cert Specialty Diagnoses / Procedures Referred By Contmaritza t Referred To Contact Multi Specialty Diagnoses Dysphagia Procedures ESOPHAGOGASTRODUODENOSCOPY [facility] [address] [place] [address] Referral ID Status Reason Start Date Expiration Date Visits Re quested Visits Authorized [id number] 1 1 Encounter Details Date Type Department Care Team (Late st Contact Info) Description 05/17/2019 2:00 PM REHABILITATOR - 05/17/2019 2:40 PM REHABILITATOR Surgery [facility] GI Lab S [facility] [address] [place] [address] Jena Cerda MD [address] [facility] [place] [place] [address] ESOPHAGOGASTRODUODENOSCOPY Surgery Details Date/Time Status Location OR Service Patient Class Case Class Case Type Trauma Case? 05/17/2019 2:00 PM Posted [facility] GI LAB GI 02 Gastroenterology Outpatient Elective No Panel 1 Procedure LRB Anes Op Region Wound Class Comments ESOPHAGOGASTRODUODENOSCOPY N/A General Mouth DANIEL SILVA Surgeon Surgeon Role Service Panel Jena Cerda MD Primary Gastroenterol ogy 1 documented in this encounter Social History [...] Comments Blood Pressure 136/88 05/17/2019 2:21 PM REHABILITATOR Pulse 85 05/17/2019 2:21 PM REHABILITATOR Temperature 35.9 ??C (96.6 ??F) 05/17/2019 2:04 PM CS T Respiratory Rate 18 05/17/2019 2:21 PM REHABILITATOR Oxygen Saturation 94% 05/17/2019 2:21 PM REHABILITATOR Inhaled Oxygen Concentration - - Weight 111.1 kg (245 lb) 05/17/2019 12:56 PM REHABILITATOR Height 167 cm (5' 5.75 ) 05/17/2019 12:56 PM REHABILITATOR Body Mass Index 39.85 05/17/2019 12:56 PM REHABILITATOR documented in this encounter Discharge Instructions * Discharge Instructions* Jena Cerda MD - 05/17/2019 1:23 PM REHABILITATOR Instructions after EGD After an upper endoscopy [...] weeks, please call the office. Office Phone: [facility] [phone] [place] [phone] Exchange: BILITATOR documented in this encounter Medications at Time [...] history or physical examination precluding the procedure. BILITATOR documented in this encounter Procedure Notes * Jena Cerda MD - 05/17/2019 2:02 PM CSTAssociated Order(s): UPPER ENDOSCOPY REPORT [facility] Endoscopy Patient Name: Lis Phelan Procedure Date: 05/17/2019 Date of : 1985 Admit Type: Outpatient Attending MD: Jena Cerda , Procedure: Upper GI endoscopy Indications: Dysphagia Providers: Jena Cerda Referring MD: Daniel Silva MD Medicines: Monitored Anesthesia Care Complications: No [...] of Addenda: [address] ; [place] [address] BILITATOR * Fabiola Gibbons RN - 05/16/2019 1:16 PM CST [facility] GI Nurse Assessment Patient: Lis Phelan : 1985 Endoscopist: Surgeon(s): Jena Cerda MD Upcoming Procedure: Procedure to be Performed: Procedure(s): ESOPHAGOGASTRODUODENOSCOPY Procedure Date/Time: 05/17/2019 at 1400 Diagnosis/Indication for procedure: Pre-Op Diagnosis Codes: * Dysphagia [R13.10] Location: [facility] GI LAB Referring Physician: Daniel Silva Patient's BMI: Body mass index is 40.66 kg/m??. Is patient a candidate for offsite location?no/high BMI/asthma/other diagnoses that patient is not currently taking meds for Medications Type of prep given: pick list of preps: {EGD Anticoagulants: no none Relevant prior procedure/pathology: Procedure:n/aPhysician: n/a Date: n/a Location: na/ Recommended to follow up in: n/a Were Polyps Removed? (If yes please document polyp pathology) no BILITATOR documented in this encounter OR Notes * Mi-OP - Fabiola Gibbons RN - 05/16/2019 1:16 PM CST Routine Pre-Anesthesia Protocol for GI Lab Procedures ??[facility] Approved by: [facility] - Medical Executive Committee Approval Date: 09/13/2018 ORDERS ARE ENTERED ???PER PROTOCOL?? Enter the protocol in the patient???s electronic health record using GuideITe: .anestprotocolgilab NURSING ORDERS: Monitoring: o Obtain and [...] appropriate, may confirm POC with: Nursing Only [id number] (this lab can be obtained at no [...] injectable antihyperglycemic agents and glucose is less [id number] mg/dl o NPO patients who have NOT [...] MEDICATION ORDERS - entered by the Pharmacist associate director regulatory affairs RESCUE ORDERS - entered by the Pharmacist or the clinic licensed practical nurse Orders Patient has IV access and UNCONCIOUS, [...] cup 2% milk and 6 saltine crackers. BILITATOR documented in this encounter Plan of Treatment Upcoming Encounters Date Type Department Care Team (Late st Contact Info) Description 06/20/2024 9:30 AM REHABILITATOR Office Visit [facility] Orthopedic Surgery at the [facility] Medicine [address] [facility] [address] [place] [address] [place] [address] [place] [address] 10/27/2024 2:45 PM CDT Office Visit [facility] Gastroenterology [facility] [address] [facility] [address] [place] [address] Bebo Benites MD [address] [address] documented as of this encounter Procedures Procedure Name Priority Date/Time Associated Diagnosis Comments UPPER ENDOSCOPY REPORT 9 2:03 PM REHABILITATOR PATHOLOGY Pathology 05/17/2019 1:55 PM REHABILITATOR Dysphagia ESOPHAGOGASTRODUODENOSCOPY 05/17 1:29 PM REHABILITATOR Dysphagia POC , URINE Routine 05/17/2019 1:05 PM REHABILITATOR documented in this encounter Results * UPPER ENDOSCOPY REPORT (05/17/2019 2:03 PM REHABILITATOR) Narrative Procedure Note Jena Cerda MD - 05/17/2019 2:02 PM CST [facility] Endoscopy Patient Name: Lis Phelan Procedure Date: 05/17/2019 Date of : 1985 Admit Type: Outpatient Attending MD: Jena Cerda , Procedure: Upper GI endoscopy Indications: Dysphagia Providers: Jena Cerda Referring MD: Daniel Silva MD Medicines: Monitored Anesthesia Care Complications: No [...] of Addenda: [address]; [place] [address] Jena Cerda MD GI PROCEDURE O RDERABLES * PATHOLOGY (05/17/2019 1:55 PM REHABILITATOR) CASE REPORT Surgical Pathology Report ? Case: [id number] ? Authorizing Provider: ??Jena Cerda, ?? Collected: ? 05/17/2019 01:55 PM ? MD ? Ordering Location: ? [facility] [place] ??Received: ?05/17/2019 04:07 PM ? Pathologist: ? Emily Sahu MD ? Specimens: ?? A) - Esophagus, mid, bx ? B) - Esophagus, distal, bx ? 05/18/2019 10:05 AM [facility] FINAL DIAGNOSIS Esophagus, mid, biopsy: - Esophagitis with marked increase of eosinophils, at least 60 per high-power field. Esophagus, distal, biopsy: - Esophagitis with marked increase of eosinophils, at least 60 per high-power field. 05/18/2019 10:05 AM [facility] (In[facility] IMEN DESCRIPTION (1) Mid esophagus biopsy; (2) distal esophagus biopsy. 05/18/2019 10:05 AM [facility] OPERATIVE PROCEDURE EGD. 05/18/2019 10:05 AM [facility] CLINICAL DIAGNOSIS R13.10, dysphagia. Rule out eosinophilic esophagitis. 05/18/2019 10:05 AM [facility] GROSS DESCRIPTION The specimens are received in [...] specimen is submitted in toto labeled B1. RYLIE/joycelyn 05/18/2019 10:05 AM [facility] MICROSCOPIC DESCRIPTION The slides are labeled [id number] and Lis Phelan. Sections from the mid [...] endoscopic correlation is suggested. 05/18/2019 10:05 AM [facility] COMMENT Special stain and/or immunohistochemical results are interpreted with controls that demonstrate appropriate staining reactions. Note on use of immunocytochemistry reagents: This test was developed and its performance characteristics determined by [facility], Department of Laboratory Medicine. It has [...] part or completely in the following laboratories: [facility], CLIA #[id number] [address] [place] [address] [facility], CLIA #[id number] [address] [place] [address] [facility], CLIA #[id number] [address] [place] [address]. 05/18/2019 10:05 AM [facility] Tissue (Esophagus, mid) Collection / Unknown 05/17/2019 1:55 PM REHABILITATOR 05/17/2019 4:07 PM REHABILITATOR Comment:Rule out eosinophili c esophagitis. Tissue specimen (specimen) (Esophagus, distal) Collection / Unknown 05/17/2019 1:55 PM REHABILITATOR 05/17/2019 4:07 PM REHABILITATOR Comment:Rule out eosinophili c esophagitis. Jena Cerda MD PATHOLOGY/CYTO LOGY ORDERABLES Performing Organization Address [facility]/ZIP Co de Phone Number [facility]# [id number] [address] [place] [address] * POC , URINE (05/17/2019 1:05 PM REHABILITATOR) HCG QUAL URINE Negative Negative 05/17/2019 1:05 PM REHABILITATOR [facility] CHANNEL EXECUTIVE NAME POC LEONA PAIZ 05/17/2019 1:05 PM REHABILITATOR [facility] ([facility] Urine 05/17/2019 1:05 PM REHABILITATOR 05/17/2019 1:07 PM REHABILITATOR Jena Cerda MD POINT OF CARE TESTING Performing Organization Address [facility] Co de Phone Number [facility] (In[facility] Network [facility]# [id number] [address] [place] [address] documented in this encounter Visit Diagnoses Diagnosis Dysphagia Dysphagia, unspecified Dysphagia Dysphagia, unspecified documented in this encounter Administered Medications Inactive Administered Medications - up to 3 most recent administrations Medication Order MAR Action Action Date Dose Rate Site lactated ringers infusion IV, at 125 mL/hr, PRE-PROCEDURE CONTINUOUS, Starting on Thu05/17/19 at 1300, Until Thu05/17/19 at 1636, Routine, Pre-Procedure Continue from Pre-Op 05/17/2019 1:34 PM REHABILITATOR New Bag 05/17/2019 1:24 PM REHABILITATOR 125 mL/hr ondansetron (ZOFRAN) 4 mg/2 mL injection 8 mg 8 mg, IV, ONE TIME ONLY, 1 dose, On Thu05/17/19 at 1415, Routine Given 05/17/2019 2:02 PM REHABILITATOR 8 mg documented in this encounter Active and Recently Administered Medications Times are shown in REHABILITATOR. Scheduled Medication Order 05/15/2019 05/16/2019 05/17/2019 ondansetron (ZOFRAN) 4 mg/2 mL injection 8 mg (COMPLETED) 8 mg, IV, ONE TIME ONLY, 1 dose, On 05/17/19 at 1415, Routine 1402 (Given - Provid er: Graciela Balderrama RN) Continuous Medication Order 05/15/2019 05/16/2019 05/17/2019 lactated ringers infusion IV, at 125 mL/hr, PRE-PROCEDURE CONTINUOUS, Starting on e 05/17/19 at 1300, Until Thu05/17/19 at 1636, Routine, Pre-Procedure 1324 (New Bag - Prov ider: Lara Boone RN)1334 (Continue from Pre-Op - Provider: Telma Alas CRNA)1350 (Fluid Volume - Provider: Telma Alas CRNA)1422 (Stopped - Provider: Graciela Balderrama RN) documented in this encounter Additional Health Concerns Assessment Noted Time PHQ-9 Depression Total Score: 6 07/08/19 19 9:00 AM REHABILITATOR documented as of this encounter Care Teams Lunch Counter Manager Relationship Specialty Start Date End Date Daniel Silva MD PCP - General Family Practice 02/08/18 12/08/21 documented as of this encounter
--- OUTSIDE RECORDS SUMMARY | 2024-06-08 20:22 | XMS_ITS | Encounter Summary ---
Author Organization [facility] Address [address] [place] [address] Care Team Providers Care Highway Research Engineer Name Role Phone Francis Pereyra MD Primary Care Provider Rishi georges Encounter Details Date Type Department Care Team (Late Contact Info) Description 05/23/2019 Orders Only [facility] at Work [employer] [place] [address] [place] [phone] Francis Pereyra MD NO ADDRESS ON FILE RUQ pain; Epigastric pain Social History Tobacco Use Types Packs/Day [...] (Late Contact Info) Description 06/20/2024 9:30 AM DIE DESIGNER APPRENTICE Office Visit [facility] Orthopedic Surgery at the [facility] Medicine [address] [facility] [address] [place] [address] [place] [address] [place] [address] 10/27/2024 2:45 PM CDT Office Visit [facility] Gastroenterology [facility] [address] [facility] [address] [place] [address] Bebo Benites MD [address] [phone] documented as of this encounter Visit Diagnoses Diagnosis RUQ pain Abdominal pain, right upper quadrant Epigastric pain Abdominal pain, epigastric documented in this encounter Additional Health Concerns Assessment Noted Time PHQ-9 Depression Total Score: 6 07/08/19 19 9:00 AM DIE DESIGNER APPRENTICE documented as of this encounter Care Teams Highway Research Engineer Relationship Specialty Start Date End Date Francis Pereyra MD PCP - General Family Practice 02/08/18 12/08/21 documented as of this encounter
--- OUTSIDE RECORDS SUMMARY | 2024-06-08 20:22 | XMS_ITS | Encounter Summary ---
Author Organization [facility] Address [address] [place] [address] Care Team Providers Care Transit Department Clerk Name Role Phone Francis Pereyra MD Primary Care Provider Unava ilable Reason for Visit * Auth/Cert Specialty Diagnoses / Procedures Referred By Contac t Referred To Contact Multi Specialty Diagnoses Dysphagia Procedures ESOPHAGOGASTRODUODENOSCOPY [facility] Gi Lab [address] [place] [address] Referral ID Status Reason Start Date Expiration Date Visits Re quested Visits Authorized [id number] 1 1 Encounter Details Date Type Department Care Team (Late st Contact Info) Description 05/17/2019 1:28 PM BATTERY CHECKER Anesthesia Event [facility] Lab S [facility] [address] [place] [address] Harish Cintron MD [address] [place] [address] Anesthesia Record Procedure Summary Procedure Name Responsible Anesthesiologist Anesthesia Start Time Anesthesia Stop Time ESOPHAGOGASTRODUODENOSCOPY (Mouth) Harish Cintron MD 05/17/19 1328 05/17/19 1359 Events Date Time Event Comment 05/17/2019 1307 1314 AN Equip Check Anesthesia eq uipment and materials checked in accordance with local policy. 1328 An Start 1329 In Room This event disp lays the In Room time documented in the Surgical Log. Deleting this event will not remove it from the log but will remove it from the Grid and Graph timeline. 1329 An Start Data 1329 Pre-Induction Immediate pre- induction anesthetic assessment performed. Vital signs as noted on graphic. 1338 An Induction 1341 Anesthesia Ready 1346 Procedure Start This event d isplays the Procedure Start time documented in the Surgical Log. Deleting this event will not remove it from the log but will remove it from the Grid and Graph timeline. 1354 an stop data 1356 Procedure Stop This event di splays the Procedure Stop time documented in the Surgical Log. Deleting this event will not remove it from the log but will remove it from the Grid and Graph timeline. 1357 Out of Room This event disp lays the Out of Room time documented in the Surgical Log. Deleting this event will not remove it from the log but will remove it from the Grid and Graph timeline. 1359 An Stop 1359 Hand-off to Receiving Clinic pavan Post-Anesthetic transfer of care report elements to appropriate post-anesthesia recovery environment completed in accordance with procedure. Meds Name Total lidocaine (XYLOCAINE) 2% injection 60 mg propofol (DIPRIVAN) 10??mg/mL injection 550 mg lactated ringers infusion 200 mL * Agents Name O2 Inspired O2 N2O Inspired N2O O2 * Blood No blood administrations on file. Lines, Drains, and Airways Type Details Placement Removal Supraglottic Airway Type: nasal cannula; Confirmation: end tidal CO2, satisfactory chest rise 05/17/19 1303 by Garett Anand AA-C 05/18/19 0237 by PROVIDER, DISCHARGE PATIENT Peripheral IV Orientation: Left; Location: Arm; Gauge: 22 gauge; Insertion Attempts: 1; Patient Tolerance: tolerated well 05/17/19 1323 by Lara Boone RN documented in this encounter Social History [...] on file documented as of this encounter OR Notes * Anesthesia Postprocedure Evaluation - Telma Alas CRNA - 05/17/2019 2:00 PM CST Post Anesthesia Evaluation Vitals: Vitals Value Taken Time BP Temp Resp SpO2 Pulse Heart Rate Pain Rating: Anesthesia Post Evaluation [...] no respiratory symptoms Hydration status: well hydrated Telma Alas CRNA ERY CHECKER * Anesthesia Handoff - Telma Alas CRNA - 05/17/2019 1:58 PM CST Post-Anesthetic transfer of care report elements [...] questions and acknowledgement of understanding. Vital Signs: See anesthesia flowsheet. 1:59 PM Telma Alas CRNA ERY CHECKER * Anesthesia Preprocedure Evaluation - Harish Cintron MD - 05/16/2019 4:59 PM CST Relevant Problems No relevant active problems Anesthesia Evaluation Airway Mallampati: II TM distance: >3 FB Neck ROM: full Dental - normal exam Pulmonary - normal exam breath sounds clear to auscultation (+) asthma, Cardiovascular - normal exam (+) hypertension, Rhythm: regular Rate: normal Neuro/Psych (+) headaches, psychiatric history GI/Hepatic/Renal (+) GERD, Endo/Other (+) diabetes mellitus type 2, arthritis Abdominal Anesthesia History Anesthesia Plan ASA Final: 3 MAC (Patient/Family discussion included an explanation that: Standard practice for endoscopists at [facility] includes use of an oral bite block to facilitate upper endoscopy and to prevent you from biting onto the scope or yourself during the procedure. This bite block is placed by a [facility] procedure room nurse/chemical waste management technician prior to the procedure. Pressure that you place on this bite block during the procedure may cause damage to teeth, fillings, and/or dental appliances that may be due to pre-existing dental disease or the age/wear of your dental appliance or structural weakness of teeth or a dental appliance; that may be a known or unknowncondition. Should you experience new dental symptoms or a dental complication, if you choose, an effort will be made to facilitate a same day or prompt dental evaluation by [facility] Dental Medicine. ) Intravenous induction Mask airway maintenance NPO status > 2 hours Anesthetic plan and risks discussed with Patient. Plan discussed with Surgeon, Other and Anesthesiologist Service Planner. Post-op Pain Control Plan to use IV or IM medication for post-op pain control. Smoking Compliance Patient did not smoke on day of surgery ERY CHECKER documented in this encounter Plan of Treatment Upcoming Encounters Date Type Department Care Team (Late st Contact Info) Description 06/20/2024 9:30 AM BATTERY CHECKER Office Visit [facility] Orthopedic Surgery at the [facility] [address] [facility] [address] [place] [address] [place] [address] [place] [address] 10/27/2024 2:45 PM CDT Office Visit [facility] Gastroenterology [facility] [address] [facility] [address] [place] [address] Bebo Benites MD [address] [facility] [address] [place] [address] documented as of this encounter Visit Diagnoses Not on filedocumented in this encounter Administered Medications Inactive Administered Medications - up to 3 most recent administrations Medication Order MAR Action Action Date Dose Rate Site lactated ringers infusion IV, at 125 mL/hr, PRE-PROCEDURE CONTINUOUS, Starting on Thu05/17/19 at 1300, Until Thu05/17/19 at 1636, Routine, Pre-Procedure Continue from Pre-Op 05/17/2019 1:34 PM BATTERY CHECKER New Bag 05/17/2019 1:24 PM BATTERY CHECKER 125 mL/hr lidocaine 2 % (XYLOCAINE) injection INTRA-PROCEDURE PRN, Starting on Thu05/17/19 at 1338, Until Thu05/17/19 at 1401, Routine, Anesthesia Intra-op Given 05/17/2019 1:38 PM BATTERY CHECKER 60 mg propofol (DIPRIVAN) injection INTRA-PROCEDURE PRN, Starting on Thu05/17/19 at 1338, Until Thu05/17/19 at 1401, Anesthesia Intra-op Given 05/17/2019 1:51 PM BATTERY CHECKER 100 mg Given 05/17/2019 1:49 PM BATTERY CHECKER 100 mg Given 05/17/2019 1:47 PM BATTERY CHECKER 100 mg documented in this encounter Additional Health Concerns Assessment Noted Time PHQ-9 Depression Total Score: 6 07/08/19 19 9:00 AM BATTERY CHECKER documented as of this encounter Care Teams Transit Department Clerk Relationship Specialty Start Date End Date Francis Pereyra MD PCP - General Family Practice 02/08/18 12/08/21 documented as of this encounter
--- OUTSIDE RECORDS SUMMARY | 2024-06-08 20:22 | XMS_ITS | Encounter Summary ---
Author Organization [facility] Address [address] [place] [address] Care Team Providers Care Mica Laminating Machine Feeder Name Role Phone Francis Pereyra MD Primary Care Provider Unava ilable Reason for Visit * Reason Onset Date Comments Medication Refill 12/09/2018 Encounter Details Date Type Department Care Team (Late st Contact Info) Description 12/09/2018 Refill [facility] at Work [employer] [address] [employer] [place] [phone] Tessa Su, BODY REPAIRER [address] [facility] [address] [place] [address] Morbid obesity with body mass index of 40.0-49.9 (Primary Dx); Type 2 diabetes mellitus without [...] st Contact Info) Description 06/20/2024 9:30 AM EARLY MORNING BABYSITTER Office Visit [facility] Orthopedic Surgery at the [facility] Medicine [address] [facility] [address] [place] [address] [place] [address] [place] [address] 10/27/2024 2:45 PM CDT Office Visit [facility] Gastroenterology [facility] [address] [facility] [address] [place] [address] Bebo Benites MD [address] [facility] [address] [place] [phone] documented as of this encounter Visit Diagnoses Diagnosis Morbid obesity with body mass index of 40.0-49.9- Primary Type 2 diabetes mellitus without complication, without long-term current use of insulin documented in this encounter Additional Health Concerns Assessment Noted Time PHQ-9 Depression Total Score: 6 07/08/19 19 9:00 AM EARLY MORNING BABYSITTER documented as of this encounter Care Teams Mica Laminating Machine Feeder Relationship Specialty Start Date End Date Francis Pereyra MD PCP - General Family Practice 02/08/18 12/08/21 documented as of this encounter
--- OUTSIDE RECORDS SUMMARY | 2024-06-08 20:23 | XMS_ITS | Encounter Summary ---
Author Organization [facility] Address [address] [place] [address] Care Team Providers Care Plastic Joint Maker Name Role Phone Francis Pereyra MD Primary Care Provider Unava ilable Reason for Visit * Reason Comments Labs Only Blood Pressure Check Encounter Details Date Type Department Care Team (Latest Contact Info) Description 12/02/2018 9:00 AM CDT Procedure visit [facility] [employer] [address] [place] [address] Screening for condition (Primary Dx); Type 2 diabetes mellitus without complication, without long-term current use of insulin; Elevated lipoprotein(a) Social History Tobacco Use Types Packs/Day Years [...] Sign Reading Time Taken Comments Blood Pressure 152/84 12/02/2018 9:20 AM CDT Pulse - - Temperature - - Respiratory Rate - - Oxygen Saturation - - Inhaled Oxygen Concentration - - Weight - - Height - - Body Mass Index - - documented in this encounter Progress Notes * Hadley Chavez - 12/02/2018 9:20 AM CDT Pt came in for blood draw, right AC unsuccessful, Left AC successful, 2 sticks, pt tolerated well. Drawn by Kerline. documented in this encounter Miscellaneous Notes * Addendum Note - Hadley Chavez - 12/02/2018 9:27 AM CDTAddended by: HADLEY CHAVEZ on: 12/02/2018 09:27 AM Modules accepted: Orders documented in this encounter Plan of Treatment Upcoming Encounters Date Type Department Care Team (Late st Contact Info) Description 06/20/2024 9:30 AM PATIENT ACCESS MANAGER Office Visit [facility] Orthopedic Surgery at the [facility] [address] [place] [address] [place] [address] [place] [address] 10/27/2024 2:45 PM CDT Office Visit [facility] Gastroenterology [facility] [address] [place] [address] Bebo Benites MD [address] [place] [address] documented as of this encounter Procedures Procedure Name Priority Date/Time Associated Diagnosis Comments HEMOGLOBIN A1C Routine 12/02/2018 9:27 AM CDT Type 2 diabetes mellitus without complication, without long-term current use of insulin LIPID PANEL Routine 12/02/2018 9:27 AM CDT Elevated lipoprotein(a) documented in this encounter Results * (ABNORMAL) LIPID PANEL (12/02/2018 9:27 AM CDT) CHOLESTEROL 193 100 - 199 mg/dL [facility] TRIGLYCERIDE 146 0 - 149 mg/dL [facility] HDL 36(L) >39 mg/dL [facility] VLDL CHOLESTEROL, CALCULATED 29 5 - 40 mg/dL [facility] LDL CALCULATED 128(H) 0 - 99 mg/dL [facility] Blood 12/02/2018 9:27 AM CDT 12/02/2018 Narrative [facility] - 12/03/2018 7:37 AM CDT Performed at: ??01 - [address] ??[id number] Sloop Captain: Elan Crawford PhD, Phone: ??[phone] Tessa Su COMPATIBILITY TEST ENGINEER CHEMISTRY ORDER MIGUELITO Performing Organization Address City/[facility] Co de Phone Number [facility] [phone] * (ABNORMAL) HEMOGLOBIN A1C (12/02/2018 9:27 AM CDT) HEMOGLOBIN A1C 6.1(H) 4.8 - 5.6 % [facility] Comment: ? Prediabetes: 5.7 - 6.4 ? Diabetes: >6.4 ? Glycemic control for adults with diabetes: <7.0 Blood 12/02/2018 9:27 AM CDT 12/02/2018 Narrative [facility] - 12/03/2018 5:36 AM CDT Performed at: ??01 - [address] ??[id number] Sloop Captain: Elan Crawford PhD, Phone: ??[phone] Tessa Su COMPATIBILITY TEST ENGINEER CHEMISTRY ORDER MIGUELITO Performing Organization Address [facility] Co de Phone Number [facility] [phone] documented in this encounter Visit Diagnoses Diagnosis Screening for condition- Primary Screening for unspecified condition Type 2 diabetes mellitus without complication, without long-term current use of insulin 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
--- OUTSIDE RECORDS SUMMARY | 2024-06-08 20:23 | XMS_ITS | Encounter Summary ---
Author Organization [facility] Address [address] [place] [address] Care Team Providers Care Cleaner Assistant Name Role Phone Bijal Francis APRN Primary Care Provider Reason for Referral * Eval and Treat (Routine) - Closed Specialty Diagnoses / Procedures Referred By Contac t Referred To Contact Otolaryngology Diagnoses Deviated septum Bijal Francis APRN [address] [place] [address] Referral ID Status Reason Start Date Expiration Date V isits Requested Visits Authorized [id number] Closed CRS To Schedule (STL) 05/01/2017 05/02/2018 1 1 HING FOREMAN Reason for Visit * Reason Comments Follow Up lab results and medi cation check Encounter Details Date Type Department Care Team (Late st Contact Info) Description 05/01/2017 7:00 AM CRUSHING FOREMAN Office Visit [facility] [employer] [address] [phone] Bijal Francis APRN [address] [place] [address] Deviated septum (Primary Dx); Recurrent major depressive disorder, in partial remission Social History Tobacco Use Types Packs/Day Years Used Date Smoking Tobacco: Former Cigarettes Q uit: 03/02/2016 Smokeless Tobacco: Never Tobacco Cessation:Counseling Given: No Alcohol Use Standard Drinks/Week Comments No 0 (1 standard drink = 0.6 oz pur e alcohol) Sex and Gender Information Value Date Recorded Sex Assigned at Not on file Gender Identity Not on file Sexual Orientation Not on file documented as of this encounter Last Filed Vital Signs Vital Sign Reading Time Taken Comments Blood Pressure 134/86 05/01/2017 7:09 AM CRUSHING FOREMAN Pulse 101 05/01/2017 7:09 AM CRUSHING FOREMAN Temperature 36.9 ??C (98.5 ??F) 05/01/2017 7:09 AM CS T Respiratory Rate 16 05/01/2017 7:09 AM CRUSHING FOREMAN Oxygen Saturation 98% 05/01/2017 7:09 AM CRUSHING FOREMAN Inhaled Oxygen Concentration - - Weight 107.5 kg (237 lb) 05/01/2017 7:09 AM CRUSHING FOREMAN Height 165.1 cm (5' 5 ) 05/01/2017 7:09 AM CRUSHING FOREMAN Body Mass Index 39.44 05/01/2017 7:09 AM CRUSHING FOREMAN documented in this encounter Progress Notes * Bijal Francis, FIXTURE DESIGNER - 05/01/2017 7:15 AM CST Images from the original note were not included. Lis Phelan is a 32 y.o. female BP 134/86 (BP Location: Left arm, Patient Position (BP): Sitting, BP Cuff Size: Large Adult) Pulse (!) 101 Temp 98.5 ??F (36.9 ??C) (Tympanic) Resp 16 Ht 5' 5 (1.651 m) Wt 107.5 kg (237 lb) SpO2 98% BMI 39.44 kg/m?? SUBJECTIVE: Chief Complaint Patient presents with ??? Follow Up lab results and medication check Denies SI/HI. States still feels like not exactly where it should be. Reports that right side of nare nearly blocked. OBJECTIVE: Physical Exam Constitutional: She is oriented to person, place, and time. She appears well- developed and well-nourished. HENT: Head: Cardiovascular: Normal rate, regular rhythm and normal heart sounds. Pulmonary/Chest: Effort normal and breath sounds normal. Abdominal: Soft. Bowel sounds are normal. Neurological: She is alert and oriented to person, place, and time. Skin: Skin is warm and dry. Vitals reviewed. ASSESSMENT: Depression, deviated septum PLAN: Referral to ENT Zoloft refilled at current dose, 150mg Added Effexor XR low dose. Reviewed labs and advised that somehow lipid panel was omitted, will need to have done Return 3 months, sooner prn. HING FOREMAN documented in this encounter Miscellaneous Notes * Patient Instructions - Bijal Francis APRN - 05/01/2017 7:31 AM CRUSHING FOREMAN PM Pediatrics. Recovering From Depression: Care Instructions Your Care Instructions Taking good care of yourself is important as you recover from depression. In time, your symptoms will fade as your treatment takes hold. Do not give up. Instead, focus your energy on getting better. Your mood will improve. It just takes some time. Focus on things that can help you feel better, such as being with friends and family, eating well, and getting enough rest. But take things slowly. Donot do too much too soon. You will begin to feel better gradually. Follow-up care is a barreto part of your treatment and safety. Be sure to make and go to all appointments, and call your doctor if you are having problems. It's also a good idea to know your test resultsand keep a list of the medicines you take. How can you care for yourself at home? Be realistic ?? If you have a large task to do, break it up into smaller steps you can handle, and just do what you can. ?? You may want to put off important decisions until your depression has lifted. If you have plans that will have a major impact on your life, such as marriage, divorce, or a job change, try to wait a bit. Talk it over with friends and loved ones who can help you look at the overall picture first. ?? Reaching out to people for help is important. Do not isolate yourself. Let your family and friends help you. Find someone you can trust and confide in, and talk to that person. ?? Be patient, and be kind to yourself. Remember that depression is not your fault and is not something you can overcome with willpower alone. Treatment is necessary for depression, just like for anyother illness. Feeling better takes time, and your mood will improve little by little. Stay active ?? Stay busy and get outside. Take a walk, or try some other light exercise. ?? Talk with your doctor about an exercise program. Exercise can help with mild depression. ?? Go to a movie or concert. Take part in a protestant activity or other social gathering. Go to a ballgame. ?? Ask a friend to have dinner with you. Take care of yourself ?? Eat a balanced diet with plenty of fresh fruits and vegetables, whole grains, and lean protein. If you have lost your appetite, eat small snacks rather than large meals. ?? Avoid drinking alcohol or using illegal drugs. Do not take medicines that have not been prescribed for you. They may interfere with medicines you may be taking for depression, or they may make your depression worse. ?? Take your medicines exactly as they are prescribed. You may start to feel better within 1 to 3 weeks of taking antidepressant medicine. But it can take as many as 6 to 8 weeks to see more improvement. If you have questions or concerns about your medicines, or if you do not notice any improvementby 3 weeks, talk to your doctor. ?? If you have any side effects from your medicine, tell your doctor. Antidepressants can make you feel tired, dizzy, or nervous. Some people have dry mouth, constipation, headaches, sexual problems,or diarrhea. Many of these side effects are mild and will go away on their own after you have been taking the medicine for a few weeks. Some may last longer. Talk to your doctor if side effects are bothering you too much. You might be able to try a different medicine. ?? Get enough sleep. If you have problems sleeping: ?? Go to bed at the same time every night, and get up at the same time every morning. ?? Keep your bedroom dark and quiet. ?? Do not exercise after 5:00 p.m. ?? Avoid drinks with caffeine after 5:00 p.m. ?? Avoid sleeping pills unless they are prescribed by the doctor treating your depression. Sleepingpills may make you groggy during the day, and they may interact with other medicine you are taking. ?? If you have any other illnesses, such as diabetes, heart disease, or high blood pressure, make sure to continue with your treatment. Tell your doctor about all of the medicines you take, includingthose with or without a prescription. ?? Keep the numbers for these national suicide hotlines: 8-310-273-TALK ( ) and 1-583-TLOYQCP ( ). If you or someone you know talks about suicide or feeling hopeless, get help right away. When should you call for help? Call 911 anytime you think you may need emergency care. For example, call if: ?? You feel like hurting yourself or someone else. ?? Someone you know has depression and is about to attempt or is attempting suicide. Call your doctor now or seek immediate medical care if: ?? You hear voices. ?? Someone you know has depression and: ?? Starts to give away his or her possessions. ?? Uses illegal drugs or drinks alcohol heavily. ?? Talks or writes about , including writing suicide notes or talking about guns, knives, or pills. ?? Starts to spend a lot of time alone. ?? Acts very aggressively or suddenly appears calm. Watch closely for changes in your health, and be sure to contact your doctor if: ?? You do not get better as expected. Where can you learn more? Go to https://www.[employer].net/patientEd Enter N529 in the search box to learn more about Recovering From Depression: Care Instructions. Current as of: January 15, 2016 Content Version: 11.3 ?? [id number] [employer] (Inspect Manager). Care instructions adapted under license by your healthcare professional. If you have questions about a medical condition or this instruction, always ask your healthcare professional. These instructions may not represent the values of this healthcare organization. [employer] (Inspect Manager) disclaims any warranty or liability for your use of this information. HING FOREMAN documented in this encounter Plan of Treatment Upcoming Encounters Date Type Department Care Team (Late st Contact Info) Description 06/20/2024 9:30 AM CRUSHING FOREMAN Office Visit [facility] Orthopedic Surgery at the [facility] [address] [place] [phone] [place] [address] [place] [address] 10/27/2024 2:45 PM CDT Office Visit [facility] G[facility]enterology [facility] [address] [place] [address] Bebo Benites MD [address] [place] [address] Scheduled Referrals Name Type Priority Associated Diagnoses Orde r Schedule AMB REFERRAL TO ENT Outpatient Referral Routine Deviated septum Ordered: 05/01/2017 documented as of this encounter Visit Diagnoses Diagnosis Deviated septum- Primary Deviated nasal septum Recurrent major depressive disorder, in partial remission documented in this encounter Care Teams Cleaner Assistant Relationship Specialty Start Date End Date Bijal Francis APRN PCP - General NURSE PRACTITIONER 04/01/17 02/07/18 documented as of this encounter
--- OUTSIDE RECORDS SUMMARY | 2024-06-08 20:23 | XMS_ITS | Encounter Summary ---
Author Organization [facility] Address [address] [place] [address] Care Team Providers Care Utility Operator Yarn Name Role Phone Bijal Francis APRN Primary Care Provider Encounter Details Date Type Department Care Team (Late st Contact Info) Description 04/01/2017 Orders Only [facility] at [facility] [employer] [address] [place] [address] Provider, Abstract NO ADDRESS ON FILE Social [...] (Late Contact Info) Description 06/20/2024 9:30 AM SPONSORSHIP COORDINATOR Office Visit [facility] Orthopedic Surgery at the [facility] [address] [place] [address] [place] [address] [place] [address] 10/27/2024 2:45 PM CDT Office Visit [facility] Gastroenterology [facility] [address] [place] [address] Bebo Benites MD [address] [facility] [address] [address] [place] [address] documented as of this encounter Procedures Procedure Name Priority Date/Time Associated Diagnosis Comments MISCELLANEOUS LAB TEST Routine 01/13/2017 documented in this encounter Results * MISCELLANEOUS LAB TEST (01/13/2017) Abstract Provider CHEMISTRY ORDERABLES Performing Organization Address City/State/[facility] Co de Phone Number [facility] CLIA# [id number] [address] [facility] [address] [place] [address] documented in this encounter Visit Diagnoses Not on filedocumented in this encounter Care Teams Utility Operator Yarn Relationship Specialty Start Date End Date Bijal Francis APRN PCP - General NURSE PRACTITIONER 04/01/17 02/07/18 documented as of this encounter
--- OUTSIDE RECORDS SUMMARY | 2024-06-08 20:23 | XMS_ITS | Encounter Summary ---
Author Organization [facility] Address [address] [place] [address] Care Team Providers Care Television Equipment Operator Name Role Phone Bijal Francis APRN Primary Care Provider Reason for Visit * Reason Comments Medication Refill pt states she is in need of sertraline refilled 125mg QD Encounter Details Date Type Department Care Team (Late st Contact Info) Description 04/01/2017 7:00 AM CDT Office Visit [facility] [address] [place] [address] Bijal Francis APRN [address] [place] [address] Moderate episode of recurrent major depressive disorder [...] Sign Reading Time Taken Comments Blood Pressure 120/82 04/01/2017 7:13 AM CDT Pulse 95 04/01/2017 7:13 AM CDT Temperature 36.5 ??C (97.7 ??F) 04/01/2017 7:13 AM C DT Respiratory Rate 18 04/01/2017 7:13 AM CDT Oxygen Saturation 98% 04/01/2017 7:13 AM CDT Inhaled Oxygen Concentration - - Weight 104.8 kg (231 lb) 04/01/2017 7:13 AM CDT Height 165.1 cm (5' 5 ) 04/01/2017 7:13 AM CDT Body Mass Index 38.44 04/01/2017 7:13 AM CDT documented in this encounter Progress Notes * Bijal Francis APRN - 04/01/2017 7:15 AM CDT Lis Phelan is a 31 y.o. female BP 120/82 (BP Location: Left arm, Patient Position (BP): Sitting, BP Cuff Size: Large Adult) Pulse 95 Temp 97.7 ??F (36.5 ??C) (Tympanic) Resp 18 Ht 5' 5 (1.651 m) Wt 104.8 kg (231 lb) SpO2 98% ? No BMI 38.44 kg/m?? SUBJECTIVE: Patient is her for refills on sertraline. She says all she wants to do is sleep, very uninterested in normal activities. OBJECTIVE: Physical Exam Constitutional: She is oriented to person, place, and time. She appears well- developed and well-nourished. Cardiovascular: Normal rate, regular rhythm and normal heart sounds. Pulmonary/Chest: Effort normal and breath sounds normal. Musculoskeletal: Normal range of motion. Neurological: She is alert and oriented to person, place, and time. Skin: Skin is warm and dry. Psychiatric: Her speech is normal and behavior is normal. Judgment and thought content normal. Cognition and memory are normal. She exhibits a depressed mood. She expresses no homicidal and no suicidal ideation. Vitals reviewed. ASSESSMENT: depression PLAN: Increased sertraline to 150mg. Follow up in one month, sooner if worsening. documented in this encounter Miscellaneous Notes * Addendum Note - Hadley Chavez - 04/01/2017 7:00 AM CDTAddended by: HADLEY CHAVEZ on: 04/01/2017 07:50 AM Modules accepted: Orders documented in this encounter Plan of Treatment Upcoming Encounters Date Type Department Care Team (Late st Contact Info) Description 06/20/2024 9:30 AM FISCAL ACCOUNTING CLERK Office Visit [facility] Orthopedic Surgery at the [facility] [address] [facility] [address] [place] [phone] [place] [address] [place] [address] 10/27/2024 2:45 PM CDT Office Visit [facility] [address] [place] [address] Bebo Benites MD [address] [facility] [address] [place] [address] documented as of this encounter Visit Diagnoses Diagnosis Moderate episode of recurrent major depressive disorder- Primary documented in this encounter Care Teams Television Equipment Operator Relationship Specialty Start Date End Date Bijal Francis APRN PCP - General NURSE PRACTITIONER 04/01/17 02/07/18 documented as of this encounter
--- OUTSIDE RECORDS SUMMARY | 2024-06-08 20:23 | XMS_ITS | Encounter Summary ---
Author Organization [facility] Address [address] [place] [address] Care Team Providers Care Chemist Instrumentation Name Role Phone Francis Pereyra MD Primary Care Provider Unava ilable Reason for Visit * Reason Comments Follow Up Encounter Details Date Type Department Care Team (Late st Contact Info) Description 11/05/2018 8:00 AM CDT [facility] [employer] [address] [employer] [place] [address] Tessa Su, MICHAEL [address] [facility] [address] [place] [address] Type 2 diabetes mellitus without complication, without long-term current use of insulin (Primary Dx); Elevated lipoprotein(a); Morbid obesity with body mass index of 40.0-49.9; Need for 23-polyvalent pneumococcal polysaccharide vaccine Social History Tobacco Use Types Packs/Day [...] Sign Reading Time Taken Comments Blood Pressure 124/84 11/05/2018 8:08 AM CDT Pulse 90 11/05/2018 8:08 AM CDT Temperature 36.9 ??C (98.4 ??F) 11/05/2018 8:08 AM CD T Respiratory Rate 16 11/05/2018 8:08 AM CDT Oxygen Saturation 98% 11/05/2018 8:08 AM CDT Inhaled Oxygen Concentration - - Weight 111.6 kg (246 lb) 11/05/2018 8:08 AM CDT Height 165.1 cm (5' 5 ) 11/05/2018 8:08 AM CDT Body Mass Index 40.94 11/05/2018 8:08 AM CDT documented in this encounter Progress Notes * Tessa Su, MICHAEL - 11/05/2018 8:54 AM CDT HISTORY OF PRESENT ILLNESS Lis Phelan is a 33 y.o. female who presents for Chief Complaint Patient presents with ??? Follow Up Pt here for BP follow up. Would like to start Phentermine for wt loss but needed to make sure her BP was not elevated. Has been walking, watching her diet. Healthy diet without wt loss. She has not done well with remembering to take her medications for chol and DM. She has the goal to get off all medications by making lifestyle changes. Right ear pain resolved from last OV. Past Medical History: Diagnosis Date ??? Arthritis ??? Asthma ??? Depression ??? Diabetes mellitus ??? GERD (gastroesophageal reflux disease) ??? Headache ??? History of shingles ??? HTN (hypertension) ??? Hyperlipidemia Current Outpatient Medications Medication Sig Dispense Refill ??? rosuvastatin (CRESTOR) 40 mg tablet Take 1 Tablet (40 mg) by mouth daily at bedtime. 30 Tablet 5 ??? cyanocobalamin, vitamin B-12, (VITAMIN B-12 ORAL) Take by mouth. ??? cetirizine (ZyrTEC) 10 mg tablet ??? fenofibrate (LOFIBRA) 160 mg Tablet Take 1 Tablet by mouth daily. ??? fluticasone propionate (FLONASE) 50 mcg/spray [place], Suspension nasal inhaler Flonase 2 sprays each nostril twice a day x 7-10 days. 16 Gram 0 ??? albuterol HFA 90 mcg inhaler Take 1-2 Puffs by inhalation every 4 hours as needed for Shortnessof Breath or Wheezing. 6.7 Gram 3 ??? metFORMIN (GLUCOPHAGE) 500 mg tablet Take 1 Tablet (500 mg) by mouth 2 times daily with meals. 180 Tablet 1 ??? etonogestrel (IMPLANON SDRM) by Subdermal route. No current facility-administered medications for this visit. Allergies Allergen Reactions ??? Chantix [Varenicline] Anaphylaxis ??? Metronidazole Nausea and Vomiting Other reaction(s): Vomiting ??? Demerol [Meperidine] Swelling ??? Tramadol Hives BP 124/84 (BP Location: Left arm, Patient Position (BP): Sitting, BP Cuff Size: Large Adult) Pulse 90 Temp 98.4 ??F (36.9 ??C) (Tympanic) Resp 16 Ht 5' 5 (1.651 m) Wt 111.6 [...] reviewed and updated in computerized patient record. [address] Care Providers: Patient Care Team: Francis Pereyra MD as PCP - General (Family Practice) No Patient Care Coordination Note on file. Vital signs/Tobacco use BP 124/84 (BP Location: Left arm, Patient Position (BP): Sitting, BP Cuff Size: Large Adult) Pulse 90 Temp 98.4 ??F (36.9 ??C) (Tympanic) Resp 16 Ht 5' 5 (1.651 m) Wt 111.6 kg (246 lb) SpO2 98% BMI 40.94 kg/m?? Blood Pressure BP Readings from Last 3 Encounters: 11/05/18 124/84 11/05/18 124/84 10/22/18 124/76 BMI POC (QM) Body mass index is 40.94 kg/m??. Normal BMI range: 18 & older: > or = 18.5 and < 25 Abnormal high BMI: Patient counseled on lifestyle modifications including weight loss and daily exercise. The 10-year CVD risk score (Syeda, et al., 2008) is: 3.5% Values used to calculate the score: Age: 33 years Sex: Female Diabetic: Yes Tobacco smoker: No Systolic Blood Pressure: 124 mmHg Is BP treated: No HDL Cholesterol: 46 mg/dL Total Cholesterol: 213 mg/dL Consider Statins if 10 year risk >7.5-10% Tobacco Use (QM) reports that she quit smoking about 2 years ago. She has never used smokeless tobacco. She is not a tobacco user. EXAMINATION REVIEW OF SYSTEMS Review of Systems Constitutional: Negative. HENT: Negative. Respiratory: Negative. Negative for shortness of breath and wheezing. Cardiovascular: Negative. Negative for chest pain and palpitations. Gastrointestinal: Negative. Genitourinary: Negative. Musculoskeletal: Negative. Skin: Negative. Neurological: Negative. Psychiatric/Behavioral: Negative. Objective PHYSICAL EXAM Physical Exam Constitutional: She is oriented to person, place, and time. She appears well- developed and well-nourished. HENT: Head: Normocephalic and atraumatic. Right Ear: Tympanic membrane and ear canal normal. Left Ear: Tympanic membrane and ear canal normal. Nose: Nose normal. Right sinus exhibits no maxillary sinus tenderness and no frontal sinus tenderness. Left sinus exhibits no maxillary sinus tenderness and no frontal sinus tenderness. Eyes: Conjunctivae and EOM are normal. Neck: No thyroid mass and no thyromegaly present. Cardiovascular: Normal rate, regular rhythm, S1 normal, S2 normal and normal heart sounds. Exam reveals no gallop and no friction rub. No murmur heard. Pulses: Dorsalis pedis pulses are 2+ on the right side, and 2+ on the left side. Posterior tibial pulses are 2+ on the right side, and 2+ on the left side. Pulmonary/Chest: Effort normal and breath sounds normal. No respiratory distress. She has no wheezes. She has no rales. Musculoskeletal: Right foot: There is normal range of motion and no deformity. Left foot: There is normal range of motion and no deformity. Feet: Right Foot: Protective Sensation: 6 sites tested. 6 sites sensed. Skin Integrity: Positive for callus. Negative for ulcer, blister, skin breakdown, erythema, warmth or dry skin. Left Foot: Protective Sensation: 6 sites tested. 6 sites sensed. Skin Integrity: Positive for callus. Negative for ulcer, blister, skin breakdown, erythema, warmth or dry skin. Neurological: She is alert and oriented to person, place, and time. Skin: Skin is warm and dry. No results found for any visits on 11/05/18 (from the past 24 hour(s)). ASSESSMENT and PLAN: Lis was seen today for follow up. Diagnoses and all orders for this visit: Type 2 diabetes mellitus without complication, without long-term current use of insulin - MICROALBUMIN/CREATININE RATIO, RANDOM UR; Future - HEMOGLOBIN A1C; Future Elevated lipoprotein(a) - rosuvastatin (CRESTOR) 40 mg tablet; Take 1 Tablet (40 mg) by mouth daily at bedtime. - LIPID PANEL; Future Morbid obesity with body mass index of 40.0-49.9 Need for 23-polyvalent pneumococcal polysaccharide vaccine - PNEUMOCOCCAL POLYSACCHARIDE VACC 23 VALENT Stop Pravachol, even when she was taking regularly, the LDL was still elevated. Switch to Crestor. Lipids and hgA1C in 8 weeks. DMT2-foot exam done today. Enc to take Metformin BID, continue. Eye exam done within the last year.Pneumovax given. Discussed Lisinopril for renal protection, declined. Obesity-sent RX request to Dr Pereyra for Phentermine 15 mg daily #30/0. Follow up in in 1 month. documented in this encounter Miscellaneous Notes * Addendum Note - Hadley Chavez - 11/05/2018 9:06 AM CDTAddended by: HADLEY CHAVEZ on: 11/05/2018 09:06 AM Modules accepted: Orders documented in this encounter Plan of Treatment Upcoming Encounters Date Type Department Care Team (Late st Contact Info) Description 06/20/2024 9:30 AM HEAVY DUTY PRESS OPERATOR Office [facility] at the [facility] [address] [place] [address] [place] [address] [place] [address] 10/27/2024 2:45 PM CDT Office Visit [facility] [address] [place] [address] Bebo Benites MD [address] [place] [address] documented as of this encounter Procedures Procedure Name Priority Date/Time Associated Diagnosis Comments MICROALBUMIN/CREATI NINE RATIO, RANDOM UR Routine 11/05/2018 9:06 AM CDT Type 2 diabetes mellitus without complication, without long-term current use of insulin documented in this encounter Results * (ABNORMAL) HEMOGLOBIN A1C (12/02/2018 9:27 AM CDT) HEMOGLOBIN A1C 6.1(H) 4.8 - 5.6 % [facility] Comment: ? Prediabetes: 5.7 - 6.4 ? Diabetes: >6.4 ? Glycemic control for adults with diabetes: <7.0 Blood 12/02/2018 9:27 AM CDT 12/02/2018 Narrative [facility] - 12/03/2018 5:36 AM CDT Performed at: ??01 - [facility] [address], [place], [place] ??[id number] Chlorine Cells Operator: Elan Crawford PhD, Phone: ??[phone] Tessa Su HOUSE NURSE CHEMISTRY ORDER MIGUELITO [facility] [phone] * (ABNORMAL) LIPID PANEL (12/02/2018 9:27 AM [...] 7:37 AM CDT Performed at: ??01 - [facility] [address], [place], [place] ??[id number] Ch[employer]ine Cells Operator: Elan Crawford PhD, Phone: ??[phone] Tessa Su NP CHEMISTRY ORDER MIGUELITO [facility] [phone] * (ABNORMAL) MICROALBUMIN/CREATININE RATIO, RANDOM UR (11/05/2018 9:06 AM CDT) Creatinine, Urine 161.5 Not Estab. mg/dL [facility] MICROALBUMIN URINE 67.0 Not Estab. ug/mL [facility] MICROALBUMIN/CREA T RATIO, UR 41.5(H) 0.0 - 30.0 mg/g creat [facility] Comment: ? Normal: ?0.0 - ??30.0 ? Albuminuria: ?31.0 - 300.0 ? Clinical albuminuria: ? >300.0 Urine URINE SPECIMEN OBTAINED BY CLEAN CATCH PROCEDURE / Unknown 11/05/2018 9:06 AM CDT 11/05/2018 Narrative [facility] - 11/06/2018 9:36 AM CDT Performed at: ??01 - [facility] [address] ??[id number] Chlorine Cells Operator: Elan Crawford PhD, Phone: ??[phone] Tessa Su HOUSE NURSE URINE ORDERABLE S [facility] [[email or web address]] [phone] documented in this encounter Visit Diagnoses Diagnosis Type 2 diabetes mellitus without complication, without long-term current use of insulin- Primary Elevated lipoprotein(a) Other disorders of lipoid metabolism Morbid obesity with body mass index of 40.0-49.9 Need for 23-polyvalent pneumococcal polysaccharide vaccine Screening for condition- Primary Screening for unspecified condition Type 2 diabetes mellitus without complication, without long-term current use of insulin Elevated lipoprotein(a) Other disorders of lipoid metabolism documented in this encounter Additional Health Concerns Assessment Noted Time PHQ-9 Depression Total Score: 6 07/08/19 19 9:00 AM HEAVY DUTY PRESS OPERATOR documented as of this encounter Care Teams Chemist Instrumentation Relationship Specialty Start Date End Date Francis Pereyra MD PCP - General Family Practice 02/08/18 12/08/21 documented as of this encounter
--- OUTSIDE RECORDS SUMMARY | 2024-06-08 20:23 | XMS_ITS | Encounter Summary ---
Author Organization [facility] Address [address] [place] [address] Care Team Providers Care Template Checker Name Role Phone Francis Pereyra MD Primary Care Provider Unawalter ilable Reason for Visit * Reason Comments ER Follow Up went to ER Thursday mo rning after fulling on the ice, needs release to back to work. Labs Only Discuss getting labs done. Encounter Details Date Type Department Care Team (Late st Contact Info) Description 07/08/2018 8:30 AM INSPECTION ENGINEER Office Visit [facility] at Work [facility] [address] [place] [address] Tessa Su, DISABILITY INSURANCE CLAIM EXAMINER [address] [facility] [address] [place] [address] Type 2 diabetes mellitus without complication, without long-term current use of insulin (Primary Dx); Screening for condition; Hyperlipidemia, unspecified hyperlipidemia type; Contusion of left knee, initial encounter; Fall, initial encounter; Nevus Social History Tobacco Use Types Packs/Day Years [...] Sign Reading Time Taken Comments Blood Pressure 138/86 07/08/2018 8:39 AM INSPECTION ENGINEER Pulse 109 07/08/2018 8:39 AM INSPECTION ENGINEER Temperature 37.2 ??C (98.9 ??F) 07/08/2018 8:39 AM CS T Respiratory Rate 18 07/08/2018 8:39 AM INSPECTION ENGINEER Oxygen Saturation 98% 07/08/2018 8:39 AM INSPECTION ENGINEER Inhaled Oxygen Concentration - - Weight 109.8 kg (242 lb) 07/08/2018 8:39 AM INSPECTION ENGINEER Height 165.1 cm (5' 5 ) 07/08/2018 8:39 AM INSPECTION ENGINEER Body Mass Index 40.27 07/08/2018 8:39 AM INSPECTION ENGINEER documented in this encounter Progress Notes * Tessa Su, MICHALE - 07/08/2018 8:50 AM CST HISTORY OF PRESENT ILLNESS Lis Phelan is a 33 y.o. female who presents for Chief Complaint Patient presents with ??? ER Follow Up went to ER Thursday morning after fulling on the ice, needs release to back to work. ??? Labs Only Discuss getting labs done. Pt fell at home with her child in her arms. States she mainly fell onto her left hip, left knee. Seen in the [place], [place] ER, xrays done of left hip, pelvis, left thigh and knee-all negative. Still having soreness to left hip and knee. Able to bear wt, walk and perform all her work duties. Per pt xrays showed Knee OA, fluid on the knee. Hit her head but had sock hat on and there were no concerns with closed head injury. No head imaging done. Denies headaches, n/v, dizziness. Has beenat work starting yesterday without restrictions. Needs note to for work. Would like labs and then get back on her meds. She was on 3 meds - for high cholesterol, depressionand DM type 2. Stopped all her meds after she had her baby. Also has a wart on her right foot, tried OTC wart tx with no change. Feels like the lesion is becoming painful. Denies crusting, bleeding. Past Medical History: Diagnosis Date ??? Arthritis ??? Asthma ??? Depression ??? Diabetes mellitus ??? GERD (gastroesophageal reflux disease) ??? Headache ??? History of shingles ??? HTN (hypertension) ??? Hyperlipidemia Current Outpatient Prescriptions Medication Sig Dispense Refill ??? etonogestrel (IMPLANON SDRM) by Subdermal route. No current facility-administered medications for this visit. Allergies Allergen Reactions ??? Chantix [Varenicline] Anaphylaxis ??? Metronidazole Nausea and Vomiting Other reaction(s): Vomiting ??? Demerol [Meperidine] Swelling ??? Tramadol Hives BP 138/86 (BP Location: Left arm, Patient Position (BP): Sitting, BP Cuff Size: Large Adult) Pulse (!) 109 Temp 98.9 ??F (37.2 ??C) (Tympanic) Resp 18 Ht 5' 5 (1.651 m) Wt 109.8 kg (242 lb) SpO2 98% BMI 40.27 kg/m?? MEDICAL RECORD UPDATE Past Medical History: Diagnosis Date ??? Arthritis ??? Asthma ??? Depression ??? Diabetes mellitus ??? GERD (gastroesophageal reflux disease) ??? Headache ??? History of shingles ??? HTN (hypertension) ??? Hyperlipidemia Past Surgical History: Procedure Laterality Date ??? HX GASTROSCHISIS CLOSURE ??? HX SURGICAL OTHER 04/2004 adhesion removed Family History Problem Relation Age of Onset ??? Lung Cancer Father ??? Stroke Father ??? Hypertension Mother ??? High Cholesterol Mother ??? Unknown Brother ??? Unknown Maternal Grandmother ??? Unknown Maternal Grandfather ??? Diabetes Paternal Grandmother ??? Kidney Disease Paternal Grandfather ??? No Known Problems Daughter ??? No Known Problems Son Current medications and allergies were reviewed and updated in computerized patient record. [address] Care Providers: Patient Care Team: Francis Pereyra MD as PCP - General (Family Practice) No Patient Care Coordination Note on file. DEPRESSION SCREENING (QM) PHQ2: Positive: PHQ-2 score > 2 or PHQ-9 score > 9 PHQ-2 Total: 6 (07/08/18 0900) She was scheduled for a future appointment to do an additional evaluation EXAMINATION BP 138/86 (BP Location: Left arm, Patient Position (BP): Sitting, BP Cuff Size: Large Adult) Pulse (!) 109 Temp 98.9 ??F (37.2 ??C) (Tympanic) Resp 18 Ht 5' 5 (1.651 m) Wt 109.8 kg (242 lb) SpO2 98% BMI 40.27 kg/m?? Blood Pressure BP Readings from Last 3 Encounters: 07/08/18 138/86 02/08/18 134/88 10/07/17 128/86 BMI POC (QM) Body mass index is 40.27 kg/m??. Normal BMI range: 18 & older: > or = 18.5 and < 25 Last 4 BPs: 07/08/18 0839 BP: 138/86 The 10-year CVD risk score (Amishino, et al., 2008) is: 2.5% Values used to calculate the score: Age: 33 years Sex: Female Diabetic: No Tobacco smoker: No Systolic Blood Pressure: 138 mmHg Is BP treated: No HDL Cholesterol: 42 mg/dL Total Cholesterol: 206 mg/dL Consider Statins if 10 year risk >7.5-10% REVIEW OF SYSTEMS Review of Systems Constitutional: Negative. HENT: Negative. Respiratory: Negative. Cardiovascular: Negative. Gastrointestinal: Negative. Genitourinary: Negative. Musculoskeletal: Positive for joint pain and myalgias. Skin: Negative. Neurological: Negative. Objective PHYSICAL EXAM Physical Exam Constitutional: She is oriented to person, place, and time. She appears well- developed and well-nourished. HENT: Head: Normocephalic and atraumatic. Nose: Nose normal. Eyes: Conjunctivae and EOM are normal. Cardiovascular: Normal rate, regular rhythm, S1 normal, S2 normal and normal heart sounds. Exam reveals no gallop and no friction rub. No murmur heard. Pulmonary/Chest: Effort normal and breath sounds normal. No respiratory distress. She has no wheezes. She has no rales. Musculoskeletal: Left hip: Normal. She exhibits normal range of motion, normal strength, no tenderness, no bony tenderness and no swelling. Left knee light ecchymosis, swelling. ROM intact. Generalized tenderness without point tenderness. Neurological: She is alert and oriented to person, place, and time. She has normal strength. No cranial nerve deficit or sensory deficit. She displays a negative Romberg sign. Coordination and gait normal. Reflex Scores: Patellar reflexes are 2+ on the right side and 2+ on the left side. PERRL 3 mm, EOMs intact. Skin: Skin is warm and dry. Right foot slightly raised amooth macule with with mild variation in pigment 5 mm No results found for any visits on 07/08/18 (from the past 24 hour(s)). ASSESSMENT and PLAN: Lis was seen today for er follow up and labs only. Diagnoses and all orders for this visit: Type 2 diabetes mellitus without complication, without long-term current use of insulin - HEMOGLOBIN A1C; Future Screening for condition - CBC WITH DIFFERENTIAL; Future - COMPREHENSIVE METABOLIC PANEL; Future - TSH; Future Hyperlipidemia, unspecified hyperlipidemia type - LIPID PANEL; Future Contusion of left knee, initial encounter Fall, initial encounter Nevus Has been off her antidepressant, Metformin and cholesterol medication. Get labs and follow up in office to restart meds. Was on Zoloft, then Effexor then back on Zoloft. PHQ=6 today. Contusion left knee-Declined isacc wrap for left knee. Advise ice, elevate. Note for work. Labs and follow up in office to discuss, restart meds. Return for shave excision of nevus right foot. ECTION ENGINEER documented in this encounter Plan of Treatment Upcoming Encounters Date Type Department Care Team (Late st Contact Info) Description 06/20/2024 9:30 AM INSPECTION ENGINEER Office Visit [facility] Orthopedic Surgery at the [facility] [address] [place] [address] [place] [address] [place] [address] 10/27/2024 2:45 PM CDT Office Visit [facility] Gastroenterology [facility] [address] [place] [address] Bebo Benites MD [address] [facility] [place] [address] documented as of this encounter Results * (ABNORMAL) HEMOGLOBIN A1C (07/15/2018 7:24 AM INSPECTION ENGINEER) HEMOGLOBIN A1C 5.9(H) 4.8 - 5.6 % [facility] Comment: ? Prediabetes: 5.7 - 6.4 ? Diabetes: >6.4 ? Glycemic control for adults with diabetes: <7.0 Blood 07/15/2018 7:24 AM INSPECTION ENGINEER 07/15/2018 Narrative [facility] - 07/16/2018 5:36 AM INSPECTION ENGINEER Performed at: ??01 - [facility] ??[id number] Director Of Infection Control: Elan Crawford PhD, Phone: ??[phone] Tessa Su DISABILITY INSURANCE CLAIM EXAMINER CHEMISTRY ORDER MIGUELITO Performing Organization Address City/[facility] Co de Phone Number [facility] * TSH (07/15/2018 7:24 AM INSPECTION ENGINEER) TSH 2.960 0.450 - 4.500 uIU/mL [facility] Blood 07/15/2018 7:24 AM INSPECTION ENGINEER 07/15/2018 Narrative [facility] - 07/16/2018 6:37 AM INSPECTION ENGINEER Performed at: ??01 - [facility] ??[id number] Director Of Infection Control: Elan Crawford PhD, Phone: ??[phone] Tessa Su NP CHEMISTRY ORDER MIGUELITO Performing Organization Address [facility]/ZIP Co de Phone Number [facility] * (ABNORMAL) CBC WITH DIFFERENTIAL (07/15/2018 7:24 AM INSPECTION ENGINEER) WBC 8.7 3.4 - 10.8 x10E3/uL [facility] RBC 4.42 3.77 - 5.28 x10E6/uL [facility] HEMOGLOBIN 13.1 11.1 - 15.9 g/dL [facility] HEMATOCRIT 39.8 34.0 - 46.6 % [facility] MCV 90 79 - 97 fL [facility] MCH 29.6 26.6 - 33.0 pg [facility] MCHC 32.9 31.5 - 35.7 g/dL [facility] RDW 14.0 12.3 - 15.4 % [facility] PLATELETS 301 150 - 379 x10E3/uL [facility] NEUTROPHIL 60 Not Estab. % [facility] LYMPHOCYTES 21 Not Estab. % [facility] MONOCYTE 10 Not Estab. % [facility] EOSINOPHILS 9 Not Estab. % [facility] BASOPHILS 0 Not Estab. % [facility] NEUTROPHIL ABSOLUTE 5.1 1.4 - 7.0 x10E3/uL [facility] LYMPHOCYTE ABSOLUTE 1.9 0.7 - 3.1 x10E3/uL [facility] MONOCYTE ABSOLUTE 0.9 0.1 - 0.9 x10E3/uL [facility] EOSINOPHIL ABSOLUTE 0.8(H) 0.0 - 0.4 x10E3/uL [facility] BASOPHILS ABSOLUTE 0.0 0.0 - 0.2 x10E3/uL [facility] IMMATURE GRANULOCYTES 0 Not Estab. % [facility] IMMATURE GRANULOCYTES ABSOLUTE 0.0 0.0 - 0.1 x10E3/uL [facility] Blood 07/15/2018 7:24 AM INSPECTION ENGINEER 07/15/2018 Narrative [facility] - 07/16/2018 4:36 AM INSPECTION ENGINEER Performed at: ?? - [facility] [address] ??[id number] Director Of Infection Control: Elan Crawford PhD, Phone: ??[phone] Tessa Su NP HEMATOLOGY DEVIKA MARTINEZ [facility] documented in this encounter Visit Diagnoses Diagnosis Type 2 diabetes mellitus without complication, without long-term current use of insulin- Primary Screening for condition Screening for unspecified condition Hyperlipidemia, unspecified hyperlipidemia type Contusion of left knee, initial encounter Fall, initial encounter Nevus Benign neoplasm of skin, site unspecified Screening for condition Screening for unspecified condition Hyperlipidemia, unspecified hyperlipidemia type Type 2 diabetes mellitus without complication, without long-term current use of insulin documented in this encounter Additional Health Concerns Assessment Noted Time PHQ-9 Depression Total Score: 6 07/08/19 19 9:00 AM INSPECTION ENGINEER documented as of this encounter Care Teams Template Checker Relationship Specialty Start Date End Date Francis Pereyra MD PCP - General Family Practice 02/08/18 12/08/21 documented as of this encounter
--- OUTSIDE RECORDS SUMMARY | 2024-06-08 20:23 | XMS_ITS | Encounter Summary ---
Author Organization [facility] Address [address] [place] [address] Care Team Providers Care Senior Javascript Engineer Name Role Phone Unavailable Primary Care Provider Unavailabl e Reason for Visit * Reason Onset Date Comments Follow Up 03/20/2017 Needs to be seen for refill Encounter Details Date Type Department Care Team (Late st Contact Info) Description 03/20/2017 Telephone [facility] at Work [employer] [place] [address] [place] [address] Bijal Francis, AUTOMATIC PACKER OPERATOR [address] [place] [address] Follow Up (Needs to be seen for refill ) Social History Tobacco Use Types Packs/Day Years Used Date Smoking Tobacco: Never Assessed Sex and Gender Information Value Date Recorded Sex Assigned at Not on file Gender Identity Not on file Sexual Orientation Not on file documented as of this encounter Miscellaneous Notes * Telephone Encounter - Kim Chavez - 03/20/2017 9:05 AM CDT Pt contacted us during our transition to [facility] stating she will need an appointment to get a refillof her Sertraline, I tried to reach pt today to schedule, LM asking pt to call the [facility] back to schedule. documented in this encounter Plan of Treatment Upcoming Encounters Date Type Department Care Team (Late st Contact Info) Description 06/20/2024 9:30 AM PHOTOGRAPH RETOUCHER Office Visit [facility] Orthopedic Surgery at the [facility] [address] [facility] [address] [place] [phone] [place] [address] [place] [address] 10/27/2024 2:45 PM CDT Office Visit [facility] Gastroenterology [address] [facility] [facility] [address] [place] [address] Bebo Benites MD [address] [facility] [address] [place] [address] documented as of this encounter Visit Diagnoses Not on filedocumented in this encounter
--- OUTSIDE RECORDS SUMMARY | 2024-06-08 20:23 | XMS_ITS | Encounter Summary ---
Author Organization [facility] Address [address] [place] [address] Care Team Providers Care Political Science Chair Name Role Phone Francis Pereyra MD Primary Care Provider Rishi georges Encounter Details Date Type Department Care Team (Late Contact Info) Description 03/25/2018 7:00 AM CDT Immunization [facility] at [facility] Personal Medicine [address] [place] [address] Need for influenza vaccination (Primary Dx) Social [...] (Late Contact Info) Description 06/20/2024 9:30 AM FIREPERSON Office Visit [facility] Orthopedic Surgery at the [facility] [address] [facility] [address] [place] [address] [place] [address] [place] [phone] 10/27/2024 2:45 PM CDT Office Visit [facility] G[facility]ology [facility] [address] [facility] [address] [place] [address] Bebo Benites MD [address] [phone] documented as of this encounter Visit Diagnoses Diagnosis Need for influenza vaccination- Primary Need for prophylactic vaccination and inoculation against influenza documented in this encounter Care Teams Political Science Chair Relationship Specialty Start Date End Date Francis Pereyra MD PCP - General Family Practice 02/08/18 12/08/21 documented as of this encounter
--- OUTSIDE RECORDS SUMMARY | 2024-06-08 20:23 | XMS_ITS | Encounter Summary ---
Author Organization [facility] Address [address] [place] [address] Care Team Providers Care Explosive Ordnance Disposal Specialist Name Role Phone Bijal Francis APRN Primary Care Provider Reason for Visit * Reason Comments Labs Only HRA, a1c Encounter Details Date Type Department Care Team (Latest Contact Info) Description 04/07/2017 7:00 AM CDT Procedure visit [facility] [address] [place] [address] Screening for condition (Primary Dx) Social History [...] encounter Progress Notes * Kim Chavez - 04/07/2017 7:22 AM CDT Pt came in for lab draw, right AC unsuccessful, right hand successful, 2 sticks, pt tolerated well. documented in this encounter Plan of Treatment Upcoming Encounters Date Type Department Care Team (Late st Contact Info) Description 06/20/2024 9:30 AM SYSTEMS SOFTWARE DEVELOPER Office Visit [facility] Orthopedic Surgery at the [facility] [address] [facility] [address] [place] [address] [place] [address] [place] [address] 10/27/2024 2:45 PM CDT Office Visit [facility] Gastroenterology [address]IGNESH [address] [facility] [address] [place] [phone] Bebo Benites MD [address] [facility] [address] [place] [address] documented as of this encounter Procedures Procedure Name Priority Date/Time Associated Diagnosis Comments IRON, TIBC, AND PERCENT SATURATION Routine 04/07/2017 7:05 AM CDT Screening for condition CBC WITH DIFFERENTIAL Routine 04/07/2017 7:05 AM CDT Screening for condition TSH Routine 04/07/2017 7:05 AM CDT Screening for condition HEMOGLOBIN A1C Routine 04/07/2017 7:05 AM CDT Screening for condition COMPREHENSIVE METABOLIC PANEL Routine 04/07/2017 7:05 AM CDT Screening for condition documented in this encounter Results * IRON, TIBC, AND PERCENT SATURATION (04/07/2017 7:05 AM CDT) IRON 81 37 - 145 ug/dL 04/07/2017 5:16 PM CDT [facility] SERVICES - [facility] TIBC 318 250 - 450 ug/dL 04/07/2017 5:16 PM CDT [facility] - [facility] IRON % SATURATION 25 15 - 50 % 04/07/2017 5:16 PM CDT [facility] - [facility] TRANSFERRIN 250 200 - 360 mg/dL 04/07/2017 5:16 PM CDT [facility] LABORATORY SERVICES [facility] Blood Venipuncture / Unknown 04/07/2017 7:05 AM CDT 04/07/2017 4:10 PM CDT Bijal Francis APRN CHEMISTRY ORDER MIGUELITO [facility] [id number] [address] [place] [address] * HEMOGLOBIN A1C (04/07/2017 7:05 AM CDT) HEMOGLOBIN A1C 5.6 4.0 - 6.0 % 04/07/2017 7:46 PM CDT [facility] LAB[facility]ATORY SERVICES [facility] EST. AVG GLUCOSE, A1C 114 mg/dL 04/07/2017 7:46 PM CDT [facility]ATORY SERVICES [facility] Blood Venipuncture / Unknown 04/07/2017 7:05 AM CDT 04/07/2017 4:10 PM CDT Bijal Francis APRN CHEMISTRY ORDER MIGUELITO [facility]ORY [facility]# [id number] [address] [place] [address] * TSH (04/07/2017 7:05 AM CDT) Pathologist [facility] TSH 1.83 0.27 - 4.20 uIU/mL 04/07/2017 5:27 PM CDT [facility] LAB[facility]ATORY [facility] Blood Venipuncture / Unknown 04/07/2017 7:05 AM CDT 04/07/2017 4:10 PM CDT Bijal Naranjobeto Francis APRN CHEMISTRY ORDER MIGUELITO [facility] [facility] [id number] [address] [place] [address] * (ABNORMAL) COMPREHENSIVE METABOLIC PANEL (04/07/2017 7:05 AM CDT) Pathologist [facility] SODIUM 138 136 - 145 mmol/L 04/07/2017 5:16 PM CDT [facility] POTASSIUM 4.2 3.5 - 5.0 mmol/L 04/07/2017 5:16 PM [facility] [facility]AT[facility] SERVICES - [facility] CHLORIDE 104 98 - 107 mmol/L 04/07/2017 5:16 PM [employer] [facility] CO2 18(L) 22 - 29 mmol/L 04/07/2017 5:16 PM [facility] [facility] CALCIUM 9.1 8.6 - 10.2 mg/dL 04/07/2017 5:16 PM [facility] [facility] BUN 13 6 - 20 mg/dL 04/07/2017 5:16 PM [facility] [facility] CREATININE 0.60 0.51 - 0.95 mg/dL 04/07/2017 5:16 PM [facility] - [facility] GLUCOSE 103(H) 74 - 99 mg/dL 04/07/2017 5:16 PM [facility] TOTAL PROTEIN 7.6 6.7 - 8.6 g/dL 04/07/2017 5:16 PM [facility] ALBUMIN 4.2 3.5 - 5.2 g/dL 04/07/2017 5:16 PM [employer] [facility] - [facility] BILIRUBIN TOTAL 0.5 0.3 - 1.2 mg/dL 04/07/2017 5:16 PM [facility] ALKALINE PHOSPHATASE 59 35 - 104 U/L 04/07/2017 5:16 PM [facility] AST 25 <33 U/L 04/07/2017 5:16 PM [facility] ALT 26 <34 U/L 04/07/2017 5:16 PM [facility] GFR >60 >=60 mL/min/1.7 3 sq meter 04/07/2017 5:16 PM [employer] SERVICES - [facility] Comment: eGFR has [...] GFR, >60 >=60 mL/min/1.7 3 sq meter 04/07/2017 5:16 PM CDT [facility]ATORY SERVICES - [facility] ANION GAP 16 8 - 16 mmol/L 04/07/2017 5:16 PM CDT [facility] - [facility] Blood Venipuncture / Unknown 04/07/2017 7:05 AM CDT 04/07/2017 4:10 PM CDT [facility] LABORATORY SERVICES - [facility] - 04/07/2017 5:16 PM CDT Samples containing indocyanine green cause interferences on Total and/or Direct Bilirubin and must not be measured. Bijal Francis APRN CHEMISTRY ORDER MIGUELITO [facility] - [facility]# [id number] [address] [place] [address] * (ABNORMAL) CBC WITH DIFFERENTIAL (04/07/2017 7:05 AM CDT) Pathologist [facility] WBC 7.9 4.0 - 9.8 K/uL 04/07/2017 4:55 PM CDT [facility] LABORATORY SERVICES - [facility] RBC 4.38 3.90 - 4.90 M/uL 04/07/2017 4:55 PM CDT [facility] - [facility] HEMOGLOBIN 12.8 11.8 - 14.8 g/dL 04/07/2017 4:55 PM CDT [facility] - [facility] HEMATOCRIT 39.7 35.5 - 44.0 % 04/07/2017 4:55 PM CDT [facility] MCV 90.6 82.0 - 99.0 fL 04/07/2017 4:55 PM CDT [facility] - [facility] MCH 29.2 27.2 - 32.6 pg 04/07/2017 4:55 PM CDT [facility] - [facility] MCHC 32.2 31.5 - 35.5 g/dL 04/07/2017 4:55 PM CDT [facility] RDW 15.0(H) 11.5 - 14.5 % 04/07/2017 4:55 PM CDT [facility] LABORATORY SERVICES - . [facility] RDW-STDEV 50.1(H) 37.1 - 48.7 fL 04/07/2017 4:55 PM CDT [facility] - [facility] PLATELETS 294 140 - 350 K/uL 04/07/2017 4:55 PM CDT [facility] - . [facility] MPV 9.7 9.3 - 12.4 fL 04/07/2017 4:55 PM CDT [facility] NEUTROPHILS 55 % 04/07/2017 4:55 PM CDT [facility] LYMPHOCYTES 26 % 04/07/2017 4:55 PM CDT [facility] MONOCYTES 8 % 04/07/2017 4:55 PM CDT [facility] EOSINOPHILS 11 % 04/07/2017 4:55 PM CDT [facility] BASOPHILS 1 % 04/07/2017 4:55 PM CDT [facility] IMMATURE GRANULOCYTES 0 % 04/07/2017 4:55 PM CDT [facility] NEUTROPHIL ABSOLUTE 4.37 1.90 - 7.00 K/uL 04/07/2017 4:55 PM CDT [facility] LYMPHOCYTE ABSOLUTE 2.04 0.70 - 4.50 K/uL 04/07/2017 4:55 PM CDT [facility] MONOCYTE ABSOLUTE 0.61 0.10 - 1.30 K/uL 04/07/2017 4:55 PM CDT [facility] - [facility] EOSINOPHIL ABSOLUTE 0.85(H) 0.00 - 0.70 K/uL 04/07/2017 4:55 PM CDT [facility] - [facility] BASOPHILS ABSOLUTE 0.05 0.00 - 0.20 K/uL 04/07/2017 4:55 PM CDT [facility] IMMATURE GRANULOCYTES ABSOLUTE 0.02 0.00 - 0.03 K/uL 04/07/2017 4:55 PM CDT [facility] Blood Venipuncture / Unknown 04/07/2017 7:05 AM CDT 04/07/2017 4:10 PM CDT Bijal Francis APRN HEMATOLOGY SILVAE MICHELLE [facility] Organization Address City/[facility] Co de Phone Number [facility] LAB[facility]ATORY [facility]# [id number] [address] [place] [address] documented in this encounter Visit Diagnoses Diagnosis Screening for condition- Primary Screening for unspecified condition documented in this encounter Care Teams Explosive Ordnance Disposal Specialist Relationship Specialty Start Date End Date Bijal Francis APRN PCP - General NURSE PRACTITIONER 04/01/17 02/07/18 documented as of this encounter
--- OUTSIDE RECORDS SUMMARY | 2024-06-08 20:23 | XMS_ITS | Encounter Summary ---
Author Organization [facility] Address [address] [place] [address] Care Team Providers Care Teleradiologist Name Role Phone Francis Pereyra MD Primary Care Provider Unava ilable Reason for Visit * Reason Comments Labs Only Encounter Details Date Type Department Care Team (Latest Contact Info) Description 08/23/2018 8:00 AM PHYSICIAN RELATIONS SPECIALIST Procedure visit [facility] at Work [employer] [address] [place] [address] Screening for condition (Primary Dx) Social History [...] encounter Progress Notes * Kim Chavez - 08/23/2018 8:15 AM CST Pt came in for blood draw, right AC unsuccessful, Left AC successful, 2 sticks, pt tolerated well. Drawn by Kerline. ICIAN RELATIONS SPECIALIST documented in this encounter Plan of Treatment Upcoming Encounters Date Type Department Care Team (Late st Contact Info) Description 06/20/2024 9:30 AM PHYSICIAN RELATIONS SPECIALIST Office Visit [facility] Orthopedic Surgery at the [facility] [address] [facility] [address] [place] [address] [place] [address] [place] [address] 10/27/2024 2:45 PM CDT Office Visit [facility] Gastroenterology [address]IGNESH [address] [facility] [address] [place] [phone] Bebo Benites MD [address] [facility] [address] [place] [address] documented as of this encounter Procedures Procedure Name Priority Date/Time Associated Diagnosis Comments CBC WITH DIFFERENTIAL Routine 08/23/2018 8:17 AM PHYSICIAN RELATIONS SPECIALIST Screening for condition TSH Routine 08/23/2018 8:17 AM PHYSICIAN RELATIONS SPECIALIST Screening for condition LIPID PANEL Routine 08/23/2018 8:17 AM PHYSICIAN RELATIONS SPECIALIST Screening for condition COMPREHENSIVE METABOLIC PANEL Routine 08/23/2018 8:17 AM PHYSICIAN RELATIONS SPECIALIST Screening for condition documented in this encounter Results * TSH (08/23/2018 8:17 AM PHYSICIAN RELATIONS SPECIALIST) TSH 3.210 0.450 - 4.500 uIU/mL [facility] Blood 08/23/2018 8:17 AM PHYSICIAN RELATIONS SPECIALIST 08/23/2018 Narrative [facility] - 08/24/2018 7:37 AM PHYSICIAN RELATIONS SPECIALIST Performed at: ??01 - [facility] [address] ??[id number] Tool Technician: Elan Crawford PhD, Phone: ??[phone] Tessa Su NP CHEMISTRY ORDER MIGUELITO [facility] [phone] * (ABNORMAL) LIPID PANEL (08/23/2018 8:17 AM PHYSICIAN RELATIONS SPECIALIST) CHOLESTEROL 213(H) 100 - 199 mg/dL [facility] TRIGLYCERIDE 152(H) 0 - 149 mg/dL [facility] HDL 46 >39 mg/dL [facility] VLDL CHOLESTEROL, CALCULATED 30 5 - 40 mg/dL [facility] LDL CALCULATED 137(H) 0 - 99 mg/dL [facility] Blood 08/23/2018 8:17 AM PHYSICIAN RELATIONS SPECIALIST 08/23/2018 Narrative [facility] - 08/24/2018 7:37 AM PHYSICIAN RELATIONS SPECIALIST Performed at: ??01 - [facility] [address] ??[id number] Tool Technician: Elan Crawford PhD, Phone: ??[phone] Tessa Su BILINGUAL INTERPRETER CHEMISTRY ORDER MIGUELITO [facility] [phone] * (ABNORMAL) CBC WITH DIFFERENTIAL (08/23/2018 8:17 AM PHYSICIAN RELATIONS SPECIALIST) WBC 8.3 3.4 - 10.8 x10E3/uL [facility] RBC 4.43 3.77 - 5.28 x10E6/uL [facility] HEMOGLOBIN 13.4 11.1 - 15.9 g/dL [facility] HEMATOCRIT 39.5 34.0 - 46.6 % [facility] MCV 89 79 - 97 fL [facility] MCH 30.2 26.6 - 33.0 pg [facility] MCHC 33.9 31.5 - 35.7 g/dL [facility] RDW 14.7 12.3 - 15.4 % [facility] PLATELETS 319 150 - 379 x10E3/uL [facility] NEUTROPHIL 58 Not Estab. % [facility] LYMPHOCYTES 25 Not Estab. % [facility] MONOCYTE 10 Not Estab. % [facility] EOSINOPHILS 7 Not Estab. % [facility] BASOPHILS 0 Not Estab. % [facility] NEUTROPHIL ABSOLUTE 4.8 1.4 - 7.0 x10E3/uL [facility] LYMPHOCYTE ABSOLUTE 2.1 0.7 - 3.1 x10E3/uL [facility] MONOCYTE ABSOLUTE 0.8 0.1 - 0.9 x10E3/uL [facility] EOSINOPHIL ABSOLUTE 0.6(H) 0.0 - 0.4 x10E3/uL [facility] BASOPHILS ABSOLUTE 0.0 0.0 - 0.2 x10E3/uL [facility] IMMATURE GRANULOCYTES 0 Not Estab. % [facility] IMMATURE GRANULOCYTES ABSOLUTE 0.0 0.0 - 0.1 x10E3/uL [facility] Blood 08/23/2018 8:17 AM PHYSICIAN RELATIONS SPECIALIST 08/23/2018 Narrative [facility] - 08/24/2018 5:36 AM PHYSICIAN RELATIONS SPECIALIST Performed at: ??01 - [facility] [address] ??[id number] Tool Technician: Elan Crawford PhD, Phone: ??[phone] Tessa Su NP HEMATOLOGY DEVIKA MARTINEZ [facility] [phone] * (ABNORMAL) COMPREHENSIVE METABOLIC PANEL (08/23/2018 8:17 AM PHYSICIAN RELATIONS SPECIALIST) GLUCOSE 117(H) 65 - 99 mg/dL [facility] Comment: Specimen received in contact with cells. Hemolysis present. GLUC may be decreased and K increased. Clinical correlation indicated. BUN 12 6 - 20 mg/dL [facility] CREATININE 0.57 0.57 - 1.00 mg/dL [facility] GFR 123 >59 mL/min/1.7 3 [facility] GFR, 142 >59 mL/min/1.7 3 [facility] BUN/CREAT RATIO 21 9 - 23 [facility] SODIUM 141 134 - 144 mmol/L [facility] POTASSIUM 5.0 3.5 - 5.2 mmol/L [facility] Comment: Specimen received in contact with cells. Hemolysis present. GLUC may be decreased and K increased. Clinical correlation indicated. CHLORIDE 108(H) 96 - 106 mmol/L [facility] CO2 14(L) 20 - 29 mmol/L [facility] Comment:Specimen quantity in sufficient for verification by repeat analysis. CALCIUM 9.4 8.7 - 10.2 mg/dL [facility] TOTAL PROTEIN 7.4 6.0 - 8.5 g/dL [facility] ALBUMIN 4.4 3.5 - 5.5 g/dL [facility] GLOBULIN 3.0 1.5 - 4.5 g/dL [facility] ALBUMIN/GLOBULIN RATIO 1.5 1.2 - 2.2 [facility] BILIRUBIN TOTAL 0.4 0.0 - 1.2 mg/dL [facility] ALKALINE PHOSPHATASE 74 39 - 117 IU/L [facility] AST 29 0 - 40 IU/L [facility] ALT 25 0 - 32 IU/L [facility] Blood 08/23/2018 8:17 AM PHYSICIAN RELATIONS SPECIALIST 08/23/2018 Narrative [facility] - 08/24/2018 7:37 AM PHYSICIAN RELATIONS SPECIALIST Performed at: ??01 - [facility] [address] ??[id number] Tool Technician: Elan Crawford PhD, Phone: ??[phone] Tessa Su BILINGUAL INTERPRETER CHEMISTRY ORDER MIGUELTIO Performing Organization Address City/State[place]IP [place] Phone Number [facility] [phone] documented in this encounter Visit Diagnoses Diagnosis Screening for condition- Primary Screening for unspecified condition documented in this encounter Additional Health Concerns Assessment Noted Time PHQ-9 Depression Total Score: 6 07/08/19 19 9:00 AM PHYSICIAN RELATIONS SPECIALIST documented as of this encounter Care Teams Teleradiologist Relationship Specialty Start Date End Date Francis Pereyra MD PCP - General Family Practice 02/08/18 12/08/21 documented as of this encounter
--- OUTSIDE RECORDS SUMMARY | 2024-06-08 20:23 | XMS_ITS | Encounter Summary ---
Author Organization [facility] Address [address] [place] [address] Care Team Providers Care Bottling Attendant Name Role Phone Francis Pereyra MD Primary Care Provider Unava ilable Reason for Visit * Reason Comments Ear Problem Medication Problem She only takes medic ations when she remembers, venaflaxine makes her feel tired Encounter Details Date Type Department Care Team (Late st Contact Info) Description 10/22/2018 8:00 AM CDT Office Visit [facility] [employer] [address] [employer] [place] [address] Tessa Su, COLLECTION SYSTEMS TECHNICIAN [address] [facility] [address] [place] [address] Acute suppurative otitis media of right ear without spontaneous rupture of tympanic membrane, [...] Reading Time Taken Comments Blood Pressure 124/76 10/22/2018 7:56 AM CDT Pulse 99 10/22/2018 7:56 AM CDT Temperature 36.8 ??C (98.3 ??F) 10/22/2018 7:56 AM CD T Respiratory Rate 18 10/22/2018 7:56 AM CDT Oxygen Saturation 98% 10/22/2018 7:56 AM CDT Inhaled Oxygen Concentration - - Weight 110.7 kg (244 lb) 10/22/2018 7:56 AM CDT Height 165.1 cm (5' 5 ) 10/22/2018 7:56 AM CDT Body Mass Index 40.6 10/22/2018 7:56 AM CDT documented in this encounter Progress Notes * Tessa Su, MICHAEL - 10/22/2018 8:08 AM CDT HISTORY OF PRESENT ILLNESS Lis Phelan is a 33 y.o. female who presents for Chief Complaint Patient presents with ??? Ear Problem ??? Medication Problem She only takes medications when she remembers, venaflaxine makes her feel tired 1 week right ear pain, popping, fullness without fevers. She denies recent URI. Off Effexor, feels she is doing ok with depression without her med. She denies suicidal thoughts. Past Medical History: Diagnosis Date ??? Arthritis ??? Asthma ??? Depression ??? Diabetes mellitus ??? GERD (gastroesophageal reflux disease) ??? Headache ??? History of shingles ??? HTN (hypertension) ??? Hyperlipidemia Current Outpatient Medications Medication Sig Dispense Refill ??? amoxicillin (AMOXIL) 875 mg tablet Take 1 Tablet (875 mg) by mouth every 12 hours for 10 days. 20 Tablet 0 ??? fluticasone propionate (FLONASE) 50 mcg/spray [place], Suspension nasal inhaler Flonase 2 sprays each nostril twice a day x 7-10 days. 16 Gram 0 ??? cyanocobalamin, vitamin B-12, (VITAMIN B-12 ORAL) Take by mouth. ??? cetirizine (ZyrTEC) 10 mg tablet ??? fenofibrate (LOFIBRA) 160 mg Tablet Take 1 Tablet by mouth daily. ??? albuterol HFA 90 mcg inhaler Take 1-2 Puffs by inhalation every 4 hours as needed for Shortnessof Breath or Wheezing. 6.7 Gram 3 ??? pravastatin (PRAVACHOL) 40 mg tablet Take 1 Tablet (40 mg) by mouth daily with supper. 90 Tablet 1 ??? metFORMIN (GLUCOPHAGE) 500 mg tablet Take 1 Tablet (500 mg) by mouth 2 times daily with meals. 180 Tablet 1 ??? etonogestrel (IMPLANON SDRM) by Subdermal route. No current facility-administered medications for this visit. Allergies Allergen Reactions ??? Chantix [Varenicline] Anaphylaxis ??? Metronidazole Nausea and Vomiting Other reaction(s): Vomiting ??? Demerol [Meperidine] Swelling ??? Tramadol Hives BP 124/76 (BP Location: Left arm, Patient Position (BP): Sitting, BP Cuff Size: Large Adult) Pulse 99 Temp 98.3 ??F (36.8 ??C) (Tympanic) Resp 18 Ht 5' 5 (1.651 m) Wt 110.7 kg (244 lb) SpO2 98% BMI 40.60 kg/m?? MEDICAL RECORD UPDATE Past Medical History: [...] reviewed and updated in computerized patient record. [address] Care Providers: Patient Care Team: Francis Pereyra MD as PCP - General (Family Practice) No Patient Care Coordination Note on file. Vital signs/Tobacco use BP 124/76 (BP Location: Left arm, Patient Position (BP): Sitting, BP Cuff Size: Large Adult) Pulse 99 Temp 98.3 ??F (36.8 ??C) (Tympanic) Resp 18 Ht 5' 5 (1.651 m) Wt 110.7 kg (244 lb) SpO2 98% BMI 40.60 kg/m?? Blood Pressure BP Readings from Last 3 Encounters: 10/22/18 124/76 08/19/18 (!) 144/90 07/29/18 (!) 144/102 BMI POC (QM) Body mass index is 40.6 kg/m??. Normal BMI range: 18 & older: [...] of Systems Constitutional: Negative. HENT: Positive for ear pain. Respiratory: Negative. Cardiovascular: Negative. Gastrointestinal: Negative. Genitourinary: Negative. Musculoskeletal: Negative. Skin: Negative. Neurological: Negative. Psychiatric/Behavioral: Negative. Objective PHYSICAL EXAM Physical Exam Constitutional: She is oriented to person, place, and time. She appears well- developed and well-nourished. HENT: Head: Normocephalic and atraumatic. Right Ear: Ear canal normal. Tympanic membrane is erythematous and bulging. Left Ear: Tympanic membrane and ear canal normal. Nose: Nose normal. Right sinus exhibits no maxillary sinus tenderness and no frontal sinus tenderness. Left sinus exhibits no frontal sinus tenderness. Mouth/Throat: Uvula is midline, oropharynx is clear and moist and mucous membranes are normal. Eyes: Conjunctivae and EOM are normal. Cardiovascular: Normal rate, regular rhythm, S1 normal, S2 normal and normal heart sounds. Exam reveals no gallop and no friction rub. No murmur heard. Pulmonary/Chest: Effort normal and breath sounds normal. No respiratory distress. She has no wheezes. She has no rales. Lymphadenopathy: She has no cervical adenopathy. Neurological: She is alert and oriented to person, place, and time. Skin: Skin is warm and dry. No results found for any visits on 10/22/18 (from the past 24 hour(s)). ASSESSMENT and PLAN: Lis was seen today for ear problem and medication problem. Diagnoses and all orders for this visit: Acute suppurative otitis media of right ear without spontaneous rupture of tympanic membrane, recurrence not specified - amoxicillin (AMOXIL) 875 mg tablet; Take 1 Tablet (875 mg) by mouth every 12 hours for 10 days. - fluticasone propionate (FLONASE) 50 mcg/spray [place], Suspension nasal inhaler; Flonase 2 sprays each nostril twice a day x 7-10 days. Other orders - cyanocobalamin, vitamin B-12, (VITAMIN B-12 ORAL); Take by mouth. - cetirizine (ZyrTEC) 10 mg tablet - fenofibrate (LOFIBRA) 160 mg Tablet; Take 1 Tablet by mouth daily. You have an ear infection which requires you to take an antibiotic. Be sure to start and finish your antibiotic as prescribed. May use ibuprofen or tylenol for pain or fever. Follow up if not improved in 5-7 days, sooner if fevers or worsening of condition. Next OV Prenar, urine microalbumin, check on last eye exam. documented in this encounter Miscellaneous Notes * Patient Instructions - Tessa Su NP - 10/22/2018 8:17 AM CDT Images from the original note were not included. [facility] Ear Infection (Otitis Media): Care Instructions Your Care Instructions An ear infection may start with a cold and affect the middle ear (otitis media). It can hurt a lot.Most ear infections clear up on their own in a couple of days. Most often you will not need antibiotics. This is because many ear infections are caused by a virus. Antibiotics don't work against a virus. Regular doses of pain medicines are the best way to reduce your fever and help you feel better. Follow-up care is a barreto part of your treatment and safety. Be sure to make and go to all appointments, and call your doctor if you are having problems. It's also a good idea to know your test resultsand keep a list of the medicines you take. How can you care for yourself at home? ?? Take pain medicines exactly as directed. ? If the doctor gave you a prescription medicine for pain, take it as prescribed. ? If you are not taking a prescription pain medicine, take an [id number] medicine, such as acetaminophen (Tylenol), ibuprofen (Advil, Motrin), or naproxen (Aleve). Read and follow all instructions on the label. ? Do not take two or more pain medicines at the same time unless the doctor told you to. Many pain medicines have acetaminophen, which is Tylenol. Too much acetaminophen (Tylenol) can be harmful. ?? Plan to take a full dose of pain reliever before bedtime. Getting enough sleep will help you getbetter. ?? Try a warm, moist washcloth on the ear. It may help relieve pain. ?? If your doctor prescribed antibiotics, take them as directed. Do not stop taking them just because you feel better. You need to take the full course of antibiotics. When should you call for help? Call your doctor now or seek immediate medical care if: ? You have new or increasing ear pain. ? You have new or increasing pus or blood draining from your ear. ? You have a fever with a stiff neck or a severe headache. ??Watch closely for changes in your health, and be sure to contact your doctor if: ? You have new or worse symptoms. ? You are not getting better after taking an antibiotic for 2 days. Where can you learn more? Go to https://www.[employer].net/patientEd Enter X558 in the search box to learn more about Ear Infection (Otitis Media): Care Instructions. Current as of: April 11, 2018 Content Version: 12.0 ?? 9316-9992 [employer] [facility] [employer]. Care instructions adapted under license by your healthcare professional. If you have questions about a medical condition or this instruction, always ask your healthcare professional. These instructions may not represent the values of this healthcare organization. [employer] disclaims any warranty or liability for your use of this information. documented in this encounter Plan of Treatment Upcoming Encounters Date Type Department Care Team (Late st Contact Info) Description 06/20/2024 9:30 AM [employer] Office Visit [facility] Orthopedic Surgery at the [facility] Medicine [address] [place] [id number] [place] [address] [place] [address] 10/27/2024 2:45 PM CDT Office Visit [facility] Gastroenterology [facility] [address] [place] [id number] Bebo Benites MD [address] [place] [address] documented as of this encounter Visit Diagnoses Diagnosis Acute suppurative otitis media of right ear without spontaneous rupture of tympanic membrane, recurrence not specified- Primary documented in this encounter Additional Health Concerns Assessment Noted Time PHQ-9 Depression Total Score: 6 07/08/19 19 9:00 AM [employer] documented as of this encounter Care Teams Bottling Attendant Relationship Specialty Start Date End Date Francis Pereyra MD PCP - General Family Practice 02/08/18 12/08/21 documented as of this encounter
--- OUTSIDE RECORDS SUMMARY | 2024-06-08 20:23 | XMS_ITS | Encounter Summary ---
Author Organization [facility] Address [address] [place] [address] Care Team Providers Care New Account Interviewer Name Role Phone Francis Pereyra MD Primary Care Provider Unava ilable Reason for Visit * Reason Comments Ed Follow-up sore throat, urgent care on 07/27/2018, was prescribed Sterioid, cough meds, allergy med, and Flonase. Pharmacy was out of flonase Medication Refill Inhaler Encounter Details Date Type Department Care Team (Late st Contact Info) Description 07/29/2018 9:00 AM OUTSIDE EVENT SALES SPECIALIST Office Visit [facility] at [facility] [employer] [address] [place] [address] Tessa Su, MICHAEL [id number] [facility] [address] [place] [address] Acute non-recurrent frontal sinusitis (Primary Dx); Mild intermittent asthma without complication; Acute bronchitis, unspecified organism Social History Tobacco Use Types Packs/Day Years [...] Sign Reading Time Taken Comments Blood Pressure 144/102 07/29/2018 9:00 AM OUTSIDE EVENT SALES SPECIALIST Pulse 112 07/29/2018 9:00 AM OUTSIDE EVENT SALES SPECIALIST Temperature 36.9 ??C (98.5 ??F) 07/29/2018 9:00 AM CS T Respiratory Rate 20 07/29/2018 9:00 AM OUTSIDE EVENT SALES SPECIALIST Oxygen Saturation 97% 07/29/2018 9:00 AM OUTSIDE EVENT SALES SPECIALIST Inhaled Oxygen Concentration - - Weight 108.4 kg (239 lb) 07/29/2018 9:00 AM OUTSIDE EVENT SALES SPECIALIST Height 165.1 cm (5' 5 ) 07/29/2018 9:00 AM OUTSIDE EVENT SALES SPECIALIST Body Mass Index 39.77 07/29/2018 9:00 AM OUTSIDE EVENT SALES SPECIALIST documented in this encounter Progress Notes * Tessa Su, MICHAEL - 07/29/2018 9:12 AM CST HISTORY OF PRESENT ILLNESS Lis Phelan is a 33 y.o. female who presents for Chief Complaint Patient presents with ??? Ed Follow-up sore throat, urgent care on 07/27/2018, was prescribed Sterioid, cough meds, allergy med, and Flonase. Pharmacy was out of flonase ??? Medication Refill Inhaler 2 weeks nasal congestion. Loss of voice, sore throat. Tried sudafed with no relief. Went to [facility] 2 days ago prescribed Medrol dose pack, Flonase (did not pharmacy picking tech), Zyrtec. Had loss of voice, sore throat continue. Pt is writing notes to communicate at visit. Feels she is not getting better. Wheezing, SOB. Has used her Albuterol inhaler and is near empty. Denies wheezing now. Right foot healing well from shave bx last OV. Past Medical History: Diagnosis Date ??? Arthritis ??? Asthma ??? Depression ??? Diabetes mellitus ??? GERD (gastroesophageal reflux disease) ??? Headache ??? History of shingles ??? HTN (hypertension) ??? Hyperlipidemia Current Outpatient Prescriptions Medication Sig Dispense Refill ??? doxycycline hyclate (VIBRAMYCIN) 100 mg tablet Take 1 Tablet (100 mg) by mouth 2 times daily for 10 days. 20 Tablet 0 ??? albuterol HFA 90 mcg inhaler Take 1-2 Puffs by inhalation every 4 hours as needed for Shortnessof Breath or Wheezing. 6.7 Gram 3 ??? venlafaxine (EFFEXOR XR) 37.5 mg Extended Release 24 hour capsule Take 1 Capsule (37.5 mg) by mouth daily. 14 Capsule 0 ??? pravastatin (PRAVACHOL) 40 mg tablet Take 1 Tablet (40 mg) by mouth daily with supper. 90 Tablet 1 ??? venlafaxine (EFFEXOR XR) 75 mg Extended Release 24 hour capsule Take 1 Capsule (75 mg) by mouthdaily. 30 Capsule 3 ??? metFORMIN (GLUCOPHAGE) 500 mg tablet [...] [Meperidine] Swelling ??? Tramadol Hives BP (!) 144/102 (BP Location: Left arm, Patient Position (BP): Sitting, BP Cuff Size: Large Adult) Pulse (!) 112 Temp 98.5 ??F (36.9 ??C) (Tympanic) Resp 20 Ht 5' 5 (1.651 m) Wt 108.4 kg (239 lb) SpO2 97% BMI 39.77 kg/m?? MEDICAL RECORD UPDATE Past Medical History: [...] and updated in computerized patient record. [facility] [address] [place] [address] [address] [facility] Care Providers: Patient Care Team: Francis Pereyra MD as PCP - General (Family Practice) No Patient Care Coordination Note on file. EXAMINATION BP (!) 144/102 (BP Location: Left arm, Patient Position (BP): Sitting, BP Cuff Size: Large Adult) Pulse (!) 112 Temp 98.5 ??F (36.9 ??C) (Tympanic) Resp 20 Ht 5' 5 (1.651 m) Wt 108.4 kg (239 lb) SpO2 97% BMI 39.77 kg/m?? Blood Pressure BP Readings from Last 3 Encounters: 07/29/18 (!) 144/102 07/20/18 (!) 132/94 07/08/18 138/86 BMI POC (QM) Body mass index is 39.77 kg/m??. Normal BMI range: 18 & older: > or = 18.5 and < 25 Last 4 BPs: 07/29/18 0900 BP: (!) 144/102 The 10-year CVD risk score (Tay'Agostino, et al., 2008) is: 5% Values used to calculate the score: Age: 33 years Sex: Female Diabetic: Yes Tobacco smoker: No Systolic Blood Pressure: 144 mmHg Is BP treated: No HDL Cholesterol: 48 mg/dL Total Cholesterol: 206 mg/dL Consider Statins if 10 year risk >7.5-10% REVIEW OF SYSTEMS Review of Systems Constitutional: Positive for malaise/fatigue. HENT: Positive for congestion, sinus pain and sore throat. Eyes: Negative. Respiratory: Positive for cough, sputum production and wheezing. Negative for shortness of breath. Cardiovascular: Negative. Gastrointestinal: Negative. Genitourinary: Negative. Musculoskeletal: Negative. Skin: Negative. Neurological: Negative. Psychiatric/Behavioral: Negative. Objective PHYSICAL EXAM Physical Exam Constitutional: She is oriented to person, place, and time. She appears well- developed and well-nourished. HENT: Head: Normocephalic and atraumatic. Right Ear: Tympanic membrane and ear canal normal. Left Ear: Tympanic membrane and ear canal normal. Nose: Rhinorrhea present. Right sinus exhibits maxillary sinus tenderness and frontal sinus tenderness. Left sinus exhibits maxillary sinus tenderness and frontal sinus tenderness. Mouth/Throat: Uvula is midline. Posterior oropharyngeal erythema present. Eyes: Conjunctivae and EOM are normal. Cardiovascular: Normal rate, regular rhythm, S1 normal, S2 normal and normal heart sounds. Exam reveals no gallop and no friction rub. No murmur heard. Pulmonary/Chest: Effort normal and breath sounds normal. No respiratory distress. She has no decreased breath sounds. She has no wheezes. She has no rhonchi. She has no rales. Lymphadenopathy: She has no cervical adenopathy. Neurological: She is alert and oriented to person, place, and time. Skin: Skin is warm and dry. No rash noted. No results found for any visits on 07/29/18 (from the past 24 hour(s)). ASSESSMENT and PLAN: Lis was seen today for ed follow-up and medication refill. Diagnoses and all orders for this visit: Acute non-recurrent frontal sinusitis - doxycycline hyclate (VIBRAMYCIN) 100 mg tablet; Take 1 Tablet (100 mg) by mouth 2 times daily for10 days. Mild intermittent asthma without complication - albuterol HFA 90 mcg inhaler; Take 1-2 Puffs by inhalation every 4 hours as needed for Shortness of Breath or Wheezing. Acute bronchitis, unspecified organism - doxycycline hyclate (VIBRAMYCIN) 100 mg tablet; Take 1 Tablet (100 mg) by mouth 2 times daily for10 days. Finish Medrol dose pack, Albuterol prn. May take Zyrtec prn, Flonase. Add Doxy. Follow up next week. Rest, increase oral fluids. IDE EVENT SALES SPECIALIST documented in this encounter Miscellaneous Notes * Patient Instructions - Tessa Su NP - 07/29/2018 9:29 AM OUTSIDE EVENT SALES SPECIALIST Images from the original note were not included. [employer]. Sinusitis: Care Instructions Your Care Instructions Sinusitis is an infection of the lining of the sinus cavities in your head. Sinusitis often followsa cold. It causes pain and pressure in your head and face. In most cases, sinusitis gets better on its own in 1 to 2 weeks. But some mild symptoms may last for several weeks. Sometimes antibiotics are needed. Follow-up care is a barreto part of your treatment and safety. Be sure to make and go to all appointments, and call your doctor if you are having problems. It's also a good idea to know your test resultsand keep a list of the medicines you take. How can you care for yourself at home? ?? Take an rrwc-dgy-yflkwhw pain medicine, such as acetaminophen (Tylenol), ibuprofen (Advil, Motrin), or naproxen (Aleve). Read and follow all instructions on the label. ?? If the doctor prescribed antibiotics, take them as directed. Do not stop taking them just because you feel better. You need to take the full course of antibiotics. ?? Be careful when taking xrzv-tsc-rbkamox cold or flu medicines and Tylenol at the same time. Manyof these medicines have acetaminophen, which is Tylenol. Read the labels to make sure that you are not taking more than the recommended dose. Too much acetaminophen (Tylenol) can be harmful. ?? Breathe warm, moist air from a steamy shower, a hot bath, or a sink filled with hot water. Avoidcold, dry air. Using a humidifier in your home may help. Follow the directions for cleaning the machine. ?? Use saline (saltwater) nasal washes to help keep your nasal passages open and wash out mucus andbacteria. You can buy saline nose drops at a grocery store or drugstore. Or you can make your own at home by adding 1 teaspoon of salt and 1 teaspoon of baking soda to 2 cups of distilled water. If you make your own, fill a bulb syringe with the solution, insert the tip into your nostril, and squeeze gently. Blow your nose. ?? Put a hot, wet towel or a warm gel pack on your face 3 or 4 times a day for 5 to 10 minutes eachtime. ?? Try a decongestant nasal spray like oxymetazoline (Afrin). Do not use it for more than 3 days miguelito row. Using it for more than 3 days can make your congestion worse. When should you call for help? Call your doctor now or seek immediate medical care if: ? You have new or worse swelling or redness in your face or around your eyes. ? You have a new or higher fever. ??Watch closely for changes in your health, and be sure to contact your doctor if: ? You have new or worse facial pain. ? The mucus from your nose becomes thicker (like pus) or has new blood in it. ? You are not getting better as expected. Where can you learn more? Go to https://www.[employer].net/patientEd Enter I933 in the search box to learn more about Sinusitis: Care Instructions. Current as of: September 16, 2017 Content Version: 11.8 ?? 6253-7779 [employer]. Care instructions adapted under license by your healthcare professional. If you have questions about a medical condition or this instruction, always ask your healthcare professional. These instructions may not represent the values of this healthcare organization. [employer] disclaims any warranty or liability for your use of this information. [employer]. Bronchitis: Care Instructions Your Care Instructions Bronchitis is inflammation of the bronchial tubes, which carry air to the lungs. The tubes swell and produce mucus, or phlegm. The mucus and inflamed bronchial tubes make you cough. You may have trouble breathing. Most cases of bronchitis are caused by viruses like those that cause colds. Antibiotics usually do not help and they may be harmful. Bronchitis usually develops rapidly and lasts about 2 to 3 weeks in otherwise healthy people. Follow-up care is a barreto part of your treatment and safety. Be sure to make and go to all appointments, and call your doctor if you are having problems. It's also a good idea to know your test resultsand keep a list of the medicines you take. How can you care for yourself at home? ?? Take all medicines exactly as prescribed. Call your doctor if you think you are having a problemwith your medicine. ?? Get some extra rest. ?? Take an frhx-xqk-nvkwkuw pain medicine, such as acetaminophen (Tylenol), ibuprofen (Advil, Motrin), or naproxen (Aleve) to reduce fever and relieve body aches. Read and follow all instructions on the label. ?? Do not take two or more pain medicines at the same time unless the doctor told you to. Many painmedicines have acetaminophen, which is Tylenol. Too much acetaminophen (Tylenol) can be harmful. ?? Take an xqxb-txa-snajxee cough medicine that contains dextromethorphan to help quiet a dry, hacking cough so that you can sleep. Avoid cough medicines that have more than one active ingredient. Read and follow all instructions on the label. ?? Breathe moist air from a humidifier, hot shower, or sink filled with hot water. The heat and moisture will thin mucus so you can cough it out. ?? Do not smoke. Smoking can make bronchitis worse. If you need help quitting, talk to your doctor about stop-smoking programs and medicines. These can increase your chances of quitting for good. When should you call for help? Call 911 anytime you think you may need emergency care. For example, call if: ? You have severe trouble breathing. ??Call your doctor now or seek immediate medical care if: ? You have new or worse trouble breathing. ? You cough up dark brown or bloody mucus (sputum). ? You have a new or higher fever. ? You have a new rash. ??Watch closely for changes in your health, and be sure to contact your doctor if: ? You cough more deeply or more often, especially if you notice more mucus or a change in the color of your mucus. ? You are not getting better as expected. Where can you learn more? Go to https://www.[employer].net/patientEd Enter H333 in the search box to learn more about Bronchitis: Care Instructions. Current as of: May 27, 2017 Content Version: 11.8 ?? [id number] [employer]. Care instructions adapted under license by your healthcare professional. If you have questions about a medical condition or this instruction, always ask your healthcare professional. These instructions may not represent the values of this healthcare organization. [employer] disclaims any warranty or liability for your use of this information. IDE EVENT SALES SPECIALIST documented in this encounter Plan of Treatment Upcoming Encounters Date Type Department Care Team (Late st Contact Info) Description 06/20/2024 9:30 AM OUTSIDE EVENT SALES SPECIALIST Office Visit [facility] Orthopedic Surgery at the [facility] [address] [facility] [address] [place] [address] [place] [address] [place] [address] 10/27/2024 2:45 PM CDT Office Visit [facility] Gastroenterology [facility] [address] [facility] [facility] [address] [place] [address] Bebo Benites MD [address] [facility] [address] [place] [address] documented as of this encounter Visit Diagnoses Diagnosis Acute non-recurrent frontal sinusitis- Primary Mild intermittent asthma without complication Unspecified asthma Acute bronchitis, unspecified organism documented in this encounter Additional Health Concerns Assessment Noted Time PHQ-9 Depression Total Score: 6 07/08/19 19 9:00 AM OUTSIDE EVENT SALES SPECIALIST documented as of this encounter Care Teams New Account Interviewer Relationship Specialty Start Date End Date Francis Pereyra MD PCP - General Family Practice 02/08/18 12/08/21 documented as of this encounter
--- OUTSIDE RECORDS SUMMARY | 2024-06-08 20:23 | XMS_ITS | Encounter Summary ---
Author Organization [facility] Address [address] [place] [address] Care Team Providers Care Equipment Tech Name Role Phone Francis Pereyra MD Primary Care Provider Unava ilable Reason for Visit * Reason Comments Follow Up 1 month follow up, h as not been taking medications Abdominal Pain Encounter Details Date Type Department Care Team (Late st Contact Info) Description 08/19/2018 10:00 AM BLAST FURNACE TENDER Office Visit [facility] at Work [employer] [address] [place] [address] Tessa Su, SHEEPSKIN PICKLER [address] [facility] [address] [place] [address] Periumbilical abdominal pain (Primary Dx) Social History Tobacco Use [...] Sign Reading Time Taken Comments Blood Pressure 144/90 08/19/2018 10:02 AM BLAST FURNACE TENDER Pulse 98 08/19/2018 10:02 AM BLAST FURNACE TENDER Temperature 36.8 ??C (98.2 ??F) 08/19/2018 10:[address] Respiratory Rate 20 08/19/2018 10:02 AM BLAST FURNACE TENDER Oxygen Saturation 99% 08/19/2018 10:02 AM BLAST FURNACE TENDER Inhaled Oxygen Concentration - - Weight 111.6 kg (246 lb) 08/19/2018 10:02 AM BLAST FURNACE TENDER Height 165.1 cm (5' 5 ) 08/19/2018 10:02 AM BLAST FURNACE TENDER Body Mass Index 40.94 08/19/2018 10:02 AM BLAST FURNACE TENDER documented in this encounter Progress Notes * Tessa Su, MICHAEL - 08/19/2018 12:28 PM CST Images from the original note were not included. HISTORY OF PRESENT ILLNESS Lis Phelan is a 33 y.o. female who presents for Chief Complaint Patient presents with ??? Follow Up 1 month follow up, has not been taking medications ??? Abdominal Pain Constant pain left mid abd pain that has been severe for 5 days. Constant and worse at times. Doubled at times over since Sun. No diarrhea, constipation, fevers. 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 States her appendix is on the left side. Has had CT ABD done in the past. She thought it was related to her Effexor so she stopped it. Has been on Glucophage but did not take this am. Denies urinary or pelvic symptoms. ? Past Medical History: Diagnosis Date ??? Arthritis ??? Asthma ??? Depression ??? Diabetes mellitus ??? GERD (gastroesophageal reflux disease) ??? Headache ??? History of shingles ??? HTN (hypertension) ??? Hyperlipidemia Current Outpatient Prescriptions Medication Sig Dispense Refill ??? albuterol HFA 90 mcg inhaler Take [...] etonogestrel (IMPLANON SDRM) by Subdermal route. ??? venlafaxine (EFFEXOR XR) 37.5 mg Extended Release 24 hour capsule Take 1 Capsule (37.5 mg) by mouth daily. 14 Capsule 0 ??? venlafaxine (EFFEXOR XR) 75 mg Extended Release 24 hour capsule Take 1 Capsule (75 mg) by mouthdaily. 30 Capsule 3 No current facility-administered medications for this visit. Allergies Allergen Reactions ??? Chantix [Varenicline] Anaphylaxis ??? Metronidazole Nausea and Vomiting Other reaction(s): Vomiting ??? Demerol [Meperidine] Swelling ??? Tramadol Hives BP (!) 144/90 (BP Location: Left arm, Patient Position (BP): Sitting, BP Cuff Size: Large Adult) Pulse 98 Temp 98.2 ??F (36.8 ??C) (Tympanic) Resp 20 Ht 5' 5 (1.651 m) Wt 111.6 kg (246 lb) SpO2 99% BMI 40.94 kg/m?? MEDICAL RECORD UPDATE Past [...] reviewed and updated in computerized [facility] record. [facility] Care Providers: Patient Care Team: Francis Pereyra MD as PCP - General (Family Practice) No Patient Care Coordination Note on file. EXAMINATION BP (!) 144/90 (BP Location: Left arm, Patient Position (BP): Sitting, BP Cuff Size: Large Adult) Pulse 98 Temp 98.2 ??F (36.8 ??C) (Tympanic) Resp 20 Ht 5' 5 (1.651 m) Wt 111.6 kg (246 lb) SpO2 99% BMI 40.94 kg/m?? Blood Pressure BP Readings from Last 3 Encounters: 08/19/18 (!) 144/90 07/29/18 (!) 144/102 07/20/18 (!) 132/94 BMI POC (QM) Body mass index is 40.94 kg/m??. Normal BMI range: 18 & older: > or = 18.5 and < 25 Normal BMI Range: 18 & older: > or = 18.5 and < 25 TOBACCO COUNSELING She is not a tobacco user. Wt Readings from Last 3 Encounters: 08/19/18 111.6 kg (246 lb) 07/29/18 108.4 kg (239 lb) 07/20/18 109.8 kg (242 lb) Last 4 BPs: 08/19/18 1002 BP: (!) 144/90 The 10-year CVD risk score (Tay'Agoino, et al., 2008) is: 5% Values used to calculate the score: Age: 33 years Sex: Female Diabetic: Yes Tobacco smoker: No Systolic Blood Pressure: 144 mmHg Is BP treated: No HDL Cholesterol: 48 mg/dL Total Cholesterol: 206 mg/dL Consider Statins if 10 year risk >7.5-10% REVIEW OF SYSTEMS Review of Systems Constitutional: Negative. HENT: Negative. Respiratory: Negative. Cardiovascular: Negative. Gastrointestinal: Positive for abdominal pain. Negative for blood in stool, constipation, diarrhea,melena, nausea and vomiting. Denies bloating or excessive flatus Musculoskeletal: Negative. Skin: Negative. Neurological: Negative. Psychiatric/Behavioral: [...] has no wheezes. She has no rales. Abdominal: Soft. Normal appearance. Bowel sounds are increased. There is tenderness. Transverse abd scar across umbilical area with left side acute tenderness, soft, no masses palpable. No distension. Neurological: She is alert and oriented to person, place, and time. Skin: Skin is warm and dry. Results for orders placed or performed in visit on 08/19/18 (from the past 24 hour(s)) POC , URINE Result Value Ref Range HCG QUAL URINE Negative Negative INTERNAL KIT QC Pass Pass KIT LOT NUMBER [id number] KIT EXPIRATION DATE 302,020 POC URINALYSIS DIPSTICK AUTOMATED Result Value Ref Range COLOR UA Yellow Pale to Dark Yellow CLARITY UA Clear Clear GLUCOSE UA Negative Negative, Normal BILIRUBIN UA Negative Negative KETONES UA Negative Negative SPECIFIC GRAVITY UA 1.020 1.003 - 1.035 BLOOD UA Negative Negative PH UA 6.0 5.0 - 8.0 PROTEIN UA Negative Negative UROBILINOGEN UA Normal <2.0 mg/dL NITRITE UA Negative Negative LEUKOCYTE ESTERASE UA Negative Negative KIT LOT NUMBER [id number] KIT EXPIRATION DATE 312,019 ASSESSMENT and PLAN: Lis was seen today for follow up and abdominal pain. Diagnoses and all orders for this visit: Periumbilical abdominal pain - POC URINALYSIS DIPSTICK AUTOMATED - POC , URINE Preg and UA neg. Advised to go to ER for eval. Cannot order CT ABD without BMP (with Glucophage use). Advised NPO status. T FURNACE TENDER documented in this encounter Plan of Treatment Upcoming Encounters Date Type Department Care Team (Late st Contact Info) Description 06/20/2024 9:30 AM BLAST FURNACE TENDER Office Visit [facility] Orthopedic Surgery at the [facility] [address] [address] [place] [phone] [place] [address] [place] [address] 10/27/2024 2:45 PM CDT Office Visit [facility] Gastroenterology [facility] [address] [place] [phone] Bebo Benites MD [address] [place] [address] documented as of this encounter Procedures Procedure Name Priority Date/Time Associated Diagnosis Comments POC URINALYSIS DIPSTICK AUTOMATED Routine 08/19/2018 10:36 AM BLAST FURNACE TENDER Periumbilical abdominal pain POC , URINE Routine 08/19/2018 10:34 AM BLAST FURNACE TENDER Periumbilical abdominal pain documented in this encounter Results * POC URINALYSIS DIPSTICK AUTOMATED (08/19/2018 10:36 AM BLAST FURNACE TENDER) COLOR UA Yellow Pale to Dark Yellow [facility] CLARITY UA Clear Clear [facility] GLUCOSE UA Negative Negative, Normal [facility] BILIRUBIN UA Negative Negative [facility] KETONES UA Negative Negative [facility] SPECIFIC GRAVITY UA 1.020 1.003 - 1.035 [facility] BLOOD UA Negative Negative [facility] PH UA 6.0 5.0 - 8.0 [facility] PROTEIN UA Negative Negative [facility] UROBILINOGEN UA Normal <2.0 mg/dL [facility] NITRITE UA Negative Negative [facility] LEUKOCYTE ESTERASE UA Negative Negative [facility] KIT LOT NUMBER POC [id number] [facility] KIT EXPIRATION DATE POC [id number] [facility] Urine 08/19/2018 10:3 6 AM BLAST FURNACE TENDER Tessa Su NP POINT OF CARE T ESTING Performing Organization Address [facility]/ZIP Co de Phone Number [facility] CLIA# [id number] [facility] [place] [address] * POC , URINE (08/19/2018 10:34 AM BLAST FURNACE TENDER) HCG QUAL URINE Negative Negative [facility] INTERNAL KIT QC Pass Pass [facility] KIT LOT NUMBER POC [id number] [facility] KIT EXPIRATION DATE POC [id number] [facility] Urine 08/19/2018 10:3 4 AM BLAST FURNACE TENDER Tessa Su NP POINT OF CARE T ESTING [facility] CLIA# [id number] [facility] [facility] [address] [facility] [place] [address] documented in this encounter Visit Diagnoses Diagnosis Periumbilical abdominal pain- Primary Abdominal pain, periumbilic documented in this encounter Additional Health Concerns Assessment Noted Time PHQ-9 Depression Total Score: 6 07/08/19 19 9:00 AM BLAST FURNACE TENDER documented as of this encounter Care Teams Equipment Tech Relationship Specialty Start Date End Date Francis Pereyra MD PCP - General Family Practice 02/08/18 12/08/21 documented as of this encounter
--- OUTSIDE RECORDS SUMMARY | 2024-06-08 20:23 | XMS_ITS | Encounter Summary ---
Author Organization [facility] Address [address] [place] [address] Care Team Providers Care Prison Teacher Name Role Phone Francis Pereyra MD Primary Care Provider Unava ilable Reason for Visit * Reason Comments Labs Only Encounter Details Date Type Department Care Team (Latest Contact Info) Description 07/15/2018 7:00 AM RELAY MECHANIC Procedure visit [facility] at [facility] [address] [place] [address] Screening for condition; Hyperlipidemia, unspecified hyperlipidemia type; Type 2 diabetes mellitus without complication, without [...] as of this encounter Progress Notes * Hadley Chavez - 07/15/2018 7:20 AM CST Pt came in for blood draw, left AC successful, 1 stick pt tolerated well. Drawn by Kerline. Y MECHANIC documented in this encounter Miscellaneous Notes * Addendum Note - Hadley Chavez - 07/15/2018 7:24 AM CSTAddended by: HADLEY CHAVEZ on: 07/15/2018 07:24 AM Modules accepted: Orders Y MECHANIC documented in this encounter Plan of Treatment Upcoming Encounters Date Type Department Care Team (Late st Contact Info) Description 06/20/2024 9:30 AM RELAY MECHANIC Office Visit [facility] Orthopedic Surgery at the [facility] [address] [facility] [address] [facility] [place] [address] [place] [address] [place] [phone] 10/27/2024 2:45 PM CDT Office Visit [facility] Gastroenterology [facility] [address] [place] [address] Bebo Benites MD [address] [place] [address] Scheduled Orders Name Type Priority Associated Diagnoses Orde r Schedule LIPID PANEL Lab Routine Screening for condition Expected: 07/15/2018, Expires: 07/15/2019 COMPREHENSIVE METABOLIC PANEL Lab Routine Screening for condition Expected: 07/15/2018, Expires: 07/15/2019 documented as of this encounter Procedures Procedure Name Priority Date/Time Associated Diagnosis Comments CBC WITH DIFFERENTIAL Routine 07/15/2018 7:24 AM RELAY MECHANIC Screening for condition TSH Routine 07/15/2018 7:24 AM RELAY MECHANIC Screening for condition HEMOGLOBIN A1C Routine 07/15/2018 7:24 AM RELAY MECHANIC Type 2 diabetes mellitus without complication, without long-term current use of insulin LIPID PANEL Routine 07/15/2018 7:24 AM RELAY MECHANIC Hyperlipidemia, unspecified hyperlipidemia type COMPREHENSIVE METABOLIC PANEL Routine 07/15/2018 7:24 AM RELAY MECHANIC Screening for condition documented in this encounter Results * (ABNORMAL) HEMOGLOBIN A1C (07/15/2018 7:24 AM RELAY MECHANIC) HEMOGLOBIN A1C 5.9(H) 4.8 - 5.6 % [facility] Comment: ? Prediabetes: 5.7 - 6.4 ? Diabetes: >6.4 ? Glycemic control for adults with diabetes: <7.0 Blood 07/15/2018 7:24 AM RELAY MECHANIC 07/15/2018 Narrative [facility] - 07/16/2018 5:36 AM RELAY MECHANIC Performed at: ??01 - [address] ??[id number] Car Worker Helper: Elan Crawford PhD, Phone: ??[phone] Tessa Su GEOLOGICAL SPECIALIST CHEMISTRY ORDER MIGUELITO Performing Organization Address [facility] Co de Phone Number [facility] * TSH (07/15/2018 7:24 AM RELAY MECHANIC) TSH 2.960 0.450 - 4.500 uIU/mL [facility] Blood 07/15/2018 7:24 AM RELAY MECHANIC 07/15/2018 Narrative [facility] - 07/16/2018 6:37 AM RELAY MECHANIC Performed at: ??[address] ??[id number] Car Worker Helper: Elan Crawford PhD, Phone: ??[phone] Tessa Su NP CHEMISTRY ORDER MIGUELITO Performing Organization Address [facility] Co de Phone Number [facility] * (ABNORMAL) LIPID PANEL (07/15/2018 7:24 AM RELAY MECHANIC) CHOLESTEROL 206(H) 100 - 199 mg/dL [facility] TRIGLYCERIDE 120 0 - 149 mg/dL [facility] HDL 48 >39 mg/dL [facility] VLDL CHOLESTEROL, CALCULATED 24 5 - 40 mg/dL [facility] LDL CALCULATED 134(H) 0 - 99 mg/dL [facility] Blood 07/15/2018 7:24 AM RELAY MECHANIC 07/15/2018 Narrative [facility] - 07/16/2018 9:37 AM RELAY MECHANIC Performed at: ??01 - [facility] [address], [place], [place] ??[id number] Car Worker Helper: Elan Crawford PhD, Phone: ??[phone] Tessa Goodman Su GEOLOGICAL SPECIALIST CHEMISTRY ORDER MIGUELITO [facility] * (ABNORMAL) COMPREHENSIVE METABOLIC PANEL (07/15/2018 7:24 AM RELAY MECHANIC) GLUCOSE 130(H) 65 - 99 mg/dL [facility] Comment: Specimen received in contact with cells. No visible hemolysis present. However GLUC may be decreased and K increased. Clinical correlation indicated. BUN 16 6 - 20 mg/dL [facility] CREATININE 0.66 0.57 - 1.00 mg/dL [facility] GFR 117 >59 mL/min/1.7 3 [facility] GFR, 135 >59 mL/min/1.7 3 [facility] BUN/CREAT RATIO 24(H) 9 - 23 [facility] SODIUM 141 134 - 144 mmol/L [facility] POTASSIUM 4.4 3.5 - 5.2 mmol/L [facility] Comment: Specimen received in contact with cells. No visible hemolysis present. However GLUC may be decreased and K increased. Clinical correlation indicated. CHLORIDE 106 96 - 106 mmol/L [facility] CO2 17(L) 20 - 29 mmol/L [facility] CALCIUM 9.4 8.7 - 10.2 mg/dL [facility] TOTAL PROTEIN 6.7 6.0 - 8.5 g/dL [facility] ALBUMIN 4.3 3.5 - 5.5 g/dL [facility] GLOBULIN 2.4 1.5 - 4.5 g/dL [facility] ALBUMIN/GLOBULIN RATIO 1.8 1.2 - 2.2 [facility] BILIRUBIN TOTAL 0.3 0.0 - 1.2 mg/dL [facility] ALKALINE PHOSPHATASE 74 39 - 117 IU/L [facility] AST 16 0 - 40 IU/L [facility] ALT 21 0 - 32 IU/L [facility] Blood 07/15/2018 7:24 AM RELAY MECHANIC 07/15/2018 Narrative [facility] - 07/16/2018 9:37 AM RELAY MECHANIC Performed at: ??01 - [facility] [address] ??[id number] Car Worker Helper: Elan Crawford PhD, Phone: ??[phone] Tessa Su NP CHEMISTRY ORDER MIGUELITO [facility] * (ABNORMAL) CBC WITH DIFFERENTIAL (07/15/2018 7:24 AM RELAY MECHANIC) WBC 8.7 3.4 - 10.8 x10E3/uL [facility] [...] x10E3/uL [facility] Blood 07/15/2018 7:24 AM RELAY MECHANIC 07/15/2018 Narrative [facility] - 07/16/2018 4:36 AM RELAY MECHANIC Performed at: ??01 - [facility] [address] ??[id number] Car Worker Helper: Elan Crawford PhD, Phone: ??[phone] Tessa Su NP HEMATOLOGY DEVIKA MARTINEZ [facility] documented in this encounter Visit Diagnoses Diagnosis Screening for condition Screening for unspecified condition Hyperlipidemia, unspecified hyperlipidemia type Type 2 diabetes mellitus without complication, without long-term current use of insulin documented in this encounter Additional Health Concerns Assessment Noted Time PHQ-9 Depression Total Score: 6 07/08/19 19 9:00 AM RELAY MECHANIC documented as of this encounter Care Teams Prison Teacher Relationship Specialty Start Date End Date Francis Pereyra MD PCP - General Family Practice 02/08/18 12/08/21 documented as of this encounter
--- OUTSIDE RECORDS SUMMARY | 2024-06-08 20:23 | XMS_ITS | Encounter Summary ---
Author Organization [facility] Address [address] [place] [address] Care Team Providers Care Welding Pantograph Machine Operator Name Role Phone Bijal Francis APRN Primary Care Provider Reason for Visit * Reason Comments Labs Only Encounter Details Date Type Department Care Team (Late st Contact Info) Description 10/07/2017 9:40 AM CDT Office Visit [facility] at [facility] [address] [place] [address] Screening for condition (Primary Dx) Social History [...] Sign Reading Time Taken Comments Blood Pressure 128/86 10/07/2017 9:37 AM CDT Pulse 83 10/07/2017 9:37 AM CDT Temperature - - Respiratory Rate - - Oxygen Saturation - - Inhaled Oxygen Concentration - - Weight 109.3 kg (241 lb) 10/07/2017 9:37 AM CDT Height 165.1 cm (5' 5 ) 10/07/2017 9:37 AM CDT Body Mass Index 40.1 10/07/2017 9:37 AM CDT documented in this encounter Progress Notes * Kim Chavez - 10/07/2017 9:56 AM CDT Pt came in for blood draw, right AC successful, 1 stick, pt tolerated well. documented in this encounter Plan of Treatment Upcoming Encounters Date Type Department Care Team (Late st Contact Info) Description 06/20/2024 9:30 AM KENO DEALER Office Visit [facility] Orthopedic Surgery at the [facility] Medicine [address] [facility] [address] [place] [address] [place] [address] [place] [address] 10/27/2024 2:45 PM CDT Office Visit [facility] Gastroenterology [facility] [address] [place] [address] Bebo Benites MD [address] [place] [address] documented as of this encounter Procedures Procedure Name Priority Date/Time Associated Diagnosis Comments CBC WITH DIFFERENTIAL Routine 10/07/2017 9:36 AM CDT Screening for condition TSH Routine 10/07/2017 9:36 AM CDT Screening for condition HEMOGLOBIN A1C Routine 10/07/2017 9:36 AM CDT Screening for condition LIPID PANEL Routine 10/07/2017 9:36 AM CDT Screening for condition COMPREHENSIVE METABOLIC PANEL Routine 10/07/2017 9:36 AM CDT Screening for condition documented in this encounter Results * (ABNORMAL) HEMOGLOBIN A1C (10/07/2017 9:36 AM CDT) HEMOGLOBIN A1C 6.4(H) 4.8 - 5.6 % [facility] Comment: ? Pre-diabetes: 5.7 - 6.4 ? Diabetes: >6.4 ? Glycemic control for adults with diabetes: <7.0 Blood 10/07/2017 9:36 AM CDT 10/07/2017 Narrative [facility] - 10/08/2017 6:37 AM CDT Performed at: ??01 - [address] ??[id number] Ramp Jockey: Elan Crawford PhD, Phone: ??[phone] Tessa Su NP CHEMISTRY ORDER MIGUELITO [facility] * TSH (10/07/2017 9:36 AM CDT) TSH 1.590 0.450 - 4.500 uIU/mL [facility] Blood 10/07/2017 9:36 AM CDT 10/07/2017 Narrative [facility] - 10/08/2017 7:38 AM CDT Performed at: ??01 - [facility] ??[id number] Ramp Jockey: Elan Crawford PhD, Phone: ??[phone] Tessa Su NP CHEMISTRY ORDER MIGUELITO Performing Organization Address City/[facility]/ZIP Co de Phone Number [facility] * (ABNORMAL) LIPID PANEL (10/07/2017 9:36 AM CDT) CHOLESTEROL 206(H) 100 - 199 mg/dL [facility] TRIGLYCERIDE 159(H) 0 - 149 mg/dL [facility] HDL 42 >39 mg/dL [facility] VLDL CHOLESTEROL, CALCULATED 32 5 - 40 mg/dL [facility] LDL CALCULATED 132(H) 0 - 99 mg/dL [facility] Blood 10/07/2017 9:36 AM CDT 10/07/2017 Narrative [facility] - 10/08/2017 9:38 AM CDT Performed at: ??01 - [facility], [place] ??[id number] Ramp Jockey: Elan Crawford PhD, Phone: ??[phone] Tessa Su WEIGHT LOSS PHYSICIAN CHEMISTRY ORDER MIGUELITO [facility] * (ABNORMAL) COMPREHENSIVE METABOLIC PANEL (10/07/2017 9:36 AM CDT) GLUCOSE 99 65 - 99 mg/dL [facility] Comment: Specimen received in contact with cells. No visible hemolysis present. However GLUC may be decreased and K increased. Clinical correlation indicated. BUN 13 6 - 20 mg/dL [facility] CREATININE 0.62 0.57 - 1.00 mg/dL [facility] GFR 121 >59 mL/min/1.7 3 [facility] GFR, 139 >59 mL/min/1.7 3 [facility] BUN/CREAT RATIO 21 9 - 23 [facility] SODIUM 142 134 - 144 mmol/L [facility] POTASSIUM 4.5 3.5 - 5.2 mmol/L [facility] Comment: Specimen received in contact with cells. No visible hemolysis present. However GLUC may be decreased and K increased. Clinical correlation indicated. CHLORIDE 104 96 - 106 mmol/L [facility] CO2 15(L) 18 - 29 mmol/L [facility] Comment:Verified by repeat analysis CALCIUM 9.4 8.7 - 10.2 mg/dL [facility] TOTAL PROTEIN 7.4 6.0 - 8.5 g/dL [facility] ALBUMIN 4.6 3.5 - 5.5 g/dL [facility] GLOBULIN 2.8 1.5 - 4.5 g/dL [facility] ALBUMIN/GLOBULIN RATIO 1.6 1.2 - 2.2 [facility] BILIRUBIN TOTAL 0.4 0.0 - 1.2 mg/dL [facility] ALKALINE PHOSPHATASE 74 39 - 117 IU/L [facility] AST 23 0 - 40 IU/L [facility] ALT 29 0 - 32 IU/L [facility] Blood 10/07/2017 9:36 AM CDT 10/07/2017 Narrative [facility] - 10/08/2017 9:38 AM CDT Performed at: ??01 - [facility], [place], [place] ??[id number] Ramp Jockey: Elan Crawford PhD, Phone: ??[phone] Tessa Maxine Sharlene WEIGHT LOSS PHYSICIAN CHEMISTRY ORDER MIGUELITO [facility] * (ABNORMAL) CBC WITH DIFFERENTIAL (10/07/2017 9:36 AM CDT) WBC 8.0 3.4 - 10.8 x10E3/uL [facility] Comment: Inadequately filled tube received. ??Whole blood to anticoagulant ratio may adversely affect results. RBC 4.51 3.77 - 5.28 x10E6/uL [facility] HEMOGLOBIN 13.7 11.1 - 15.9 g/dL [facility] HEMATOCRIT 40.5 34.0 - 46.6 % [facility] MCV 90 79 - 97 fL [facility] MCH 30.4 26.6 - 33.0 pg [facility] MCHC 33.8 31.5 - 35.7 g/dL [facility] RDW 14.3 12.3 - 15.4 % [facility] PLATELETS 309 150 - 379 x10E3/uL [facility] NEUTROPHIL 56 Not Estab. % [facility] LYMPHOCYTES 28 Not Estab. % [facility] MONOCYTE 6 Not Estab. % [facility] EOSINOPHILS 10 Not Estab. % [facility] BASOPHILS 0 Not Estab. % [facility] NEUTROPHIL ABSOLUTE 4.4 1.4 - 7.0 x10E3/uL [facility] LYMPHOCYTE ABSOLUTE 2.3 0.7 - 3.1 x10E3/uL [facility] MONOCYTE ABSOLUTE 0.5 0.1 - 0.9 x10E3/uL [facility] EOSINOPHIL ABSOLUTE 0.8(H) 0.0 - 0.4 x10E3/uL [facility] BASOPHILS ABSOLUTE 0.0 0.0 - 0.2 x10E3/uL [facility] IMMATURE GRANULOCYTES 0 Not Estab. % [facility] IMMATURE GRANULOCYTES ABSOLUTE 0.0 0.0 - 0.1 x10E3/uL [facility] Blood 10/07/2017 9:36 AM CDT 10/07/2017 Narrative [facility] - 10/08/2017 7:38 AM CDT Performed at: ??01 - [facility] [address] ??[id number] Ramp Jockey: Elan Crawford PhD, Phone: ??[phone] Tessa Su NP HEMATOLOGY DEVIKA MARTINEZ [facility] documented in this encounter Visit Diagnoses Diagnosis Screening for condition- Primary Screening for unspecified condition documented in this encounter Care Teams Welding Pantograph Machine Operator Relationship Specialty Start Date End Date Bijal Francis APRN PCP - General NURSE PRACTITIONER 04/01/17 02/07/18 documented as of this encounter
--- OUTSIDE RECORDS SUMMARY | 2024-06-08 20:23 | XMS_ITS | Encounter Summary ---
Author Organization [facility] Address [address] [place] [address] Care Team Providers Care Finish Saw Operator Name Role Phone Francis Pereyra MD Primary Care Provider Unava ilable Reason for Visit * Reason Comments Labs Only Encounter Details Date Type Department Care Team (Late st Contact Info) Description 11/05/2018 8:00 AM CDT Office Visit [facility] [address] [place] [address] Screening for condition (Primary Dx) [...] Time Taken Comments Blood Pressure 124/84 11/05/2018 8:40 AM CDT Pulse - - Temperature - - Respiratory Rate - - Oxygen Saturation - - Inhaled Oxygen Concentration - - Weight 111.6 kg (246 lb) 11/05/2018 8:40 AM CDT Height 165.1 cm (5' 5 ) 11/05/2018 8:40 AM CDT Body Mass Index 40.94 11/05/2018 8:40 AM CDT documented in this encounter Progress Notes * Kim Chavez - 11/05/2018 9:04 AM CDT Pt came in for annual wellness screening finger stick, right hand 2nd digit, pt tolerate well. ROSINA Churchill Pt has lab follow up in November, then will follow up with Tessa for discussion documented in this encounter Plan of Treatment Upcoming Encounters Date Type Department Care Team (Late st Contact Info) Description 06/20/2024 9:30 AM GARAGE DOOR SERVICE TECHNICIAN Office Visit [facility] Orthopedic Surgery at the [facility] Medicine [address] [place] [address] [place] [address] [place] [address] 10/27/2024 2:45 PM CDT Office Visit [facility] Gastroenterology [facility] [address] [place] [address] Bebo Benites MD [address] [place] [address] documented as of this encounter Procedures Procedure Name Priority Date/Time Associated Diagnosis Comments GLUCOSE LEVEL Routine 11/05/2018 LIPID PANEL Routine 11/05/2018 documented in this encounter Results * (ABNORMAL) GLUCOSE LEVEL (11/05/2018) GLUCOSE 120(A) 74 - 99 mg/dL [facility] Blood 11/05/2018 Abstract Provider CHEMISTRY ORDERABLES [facility] CLIA# [id number] [place] [address] * LIPID PANEL (11/05/2018) CHOLESTEROL 156 200 mg/dL [facility] TRIGLYCERIDE 105 150 mg/dL [facility] HDL 43 40 - 59 mg/dL [facility] LDL CALCULATED 92 100 mg/dL [facility] TC/HDL POC 3.6 3.43 - 4.97 Ratio [facility] Blood 11/05/2018 Abstract Provider CHEMISTRY ORDERABLES [facility] CLIA# [id number] [address] [place] [address] documented in this encounter Visit Diagnoses Diagnosis Screening for condition- Primary Screening for unspecified condition documented in this encounter Additional Health Concerns Assessment Noted Time PHQ-9 Depression Total Score: 6 07/08/19 19 9:00 AM GARAGE DOOR SERVICE TECHNICIAN documented as of this encounter Care Teams Finish Saw Operator Relationship Specialty Start Date End Date Francis Pereyra MD PCP - General Family Practice 02/08/18 12/08/21 documented as of this encounter
--- OUTSIDE RECORDS SUMMARY | 2024-06-08 20:23 | XMS_ITS | Encounter Summary ---
Author Organization [facility] Address [address] [place] [address] Care Team Providers Care Client Service Supervisor Name Role Phone Francis Pereyra MD Primary Care Provider Rishi georges Encounter Details Date Type Department Care Team (Late Contact Info) Description 07/16/2018 Orders Only [facility] at Work [employer] [address] [place] [address] Tessa Su, WIRE SPINNER [address] [facility] [place] [address] [place] [address] Social History Tobacco Use Types [...] (Late Contact Info) Description 06/20/2024 9:30 AM FIELD SALES TRAINER Office Visit [facility] Orthopedic Surgery at the [facility] [address] [address] [facility] [place] [address] [place] [address] [place] [address] 10/27/2024 2:45 PM CDT Office Visit [facility] Gastroenterology [facility] [address] [place] [address] Bebo Benites MD [address] [facility] [address] [place] [address] documented as of this encounter Visit Diagnoses Not on filedocumented in this encounter Additional Health Concerns Assessment Noted Time PHQ-9 Depression Total Score: 6 07/08/19 19 9:00 AM FIELD SALES TRAINER documented as of this encounter Care Teams Client Service Supervisor Relationship Specialty Start Date End Date Francis Pereyra MD PCP - General Family Practice 02/08/18 12/08/21 documented as of this encounter
--- OUTSIDE RECORDS SUMMARY | 2024-06-08 20:23 | XMS_ITS | Encounter Summary ---
Author Organization [facility] Address [address] [place] [address] Care Team Providers Care Ophthalmologist Retina Specialist Name Role Phone Francis Pereyra MD Primary Care Provider Rishi georges Encounter Details Date Type Department Care Team (Late Contact Info) Description 12/03/2018 Orders Only [facility] at Work [employer] [address] [employer] [place] [address] Tessa Su, R D MANAGER [address] [facility] [address] [place] [address] Type 2 diabetes mellitus without complication, without long-term current use of insulin (Primary Dx); Elevated lipoprotein(a) Social History Tobacco Use Types [...] st Contact Info) Description 06/20/2024 9:30 AM MIDDLE SCHOOL MUSIC TEACHER Office Visit [facility] Orthopedic Surgery at the [facility] Medicine [address] [place] [address] [place] [address] [place] [address] 10/27/2024 2:45 PM CDT Office Visit [facility] Gastroenterology [facility] [address] [facility] [address] [place] [address] Bebo Benites MD [address] 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
--- OUTSIDE RECORDS SUMMARY | 2024-06-08 20:23 | XMS_ITS | Encounter Summary ---
Author Organization [facility] Address [address] [place] [address] Care Team Providers Care Mild Disabilities Teacher Name Role Phone Francis Pereyra MD Primary Care Provider Unava ilable Reason for Visit * Reason Comments Follow Up Encounter Details Date Type Department Care Team (Late st Contact Info) Description 12/09/2018 9:00 AM CDT Office Visit [facility] at Work Andre Phillipe [address] [employer] [place] [address] Tessa Su, MICHAEL [address] [facility] [address] [place] [address] Dysphagia, unspecified type (Primary Dx); Type 2 diabetes mellitus without complication, without long-term current use of insulin; Elevated lipoprotein(a); Morbid obesity with body mass index of 40.0-49.9; Microalbuminuria Social History Tobacco Use Types Packs/Day [...] Sign Reading Time Taken Comments Blood Pressure 122/82 12/09/2018 9:00 AM CDT Pulse 105 12/09/2018 9:00 AM CDT Temperature 37.1 ??C (98.8 ??F) 12/09/2018 9:00 AM CD T Respiratory Rate 16 12/09/2018 9:00 AM CDT Oxygen Saturation 97% 12/09/2018 9:00 AM CDT Inhaled Oxygen Concentration - - Weight 111.6 kg (246 lb) 12/09/2018 9:00 AM CDT Height 165.1 cm (5' 5 ) 12/09/2018 9:00 AM CDT Body Mass Index 40.94 12/09/2018 9:00 AM CDT documented in this encounter Progress Notes * Tessa Su, MICHAEL - 12/09/2018 10:47 AM CDT HISTORY OF PRESENT ILLNESS Lis Phelan is a 33 y.o. female who presents for Chief Complaint Patient presents with ??? Follow Up 1 month follow up on Phentermine use for wt loss. No wt loss, she has been taking Phentermine. She denies any side effects. Has been trying to increase exercise, following low carb/sugar/fat diet. Has had about 4 episodes in the past 6 months of choking when eating meat. Has been careful to chewthoroughly. Feels like it gets stuck in the upper chest area. When it happens she cannot talk, vomits to relieve it. Denies epigastric pain. Denies black or bloody stools. Past Medical History: Diagnosis Date ??? Arthritis [...] daily. ??? fluticasone propionate (FLONASE) 50 mcg/spray [place], Suspension nasal inhaler Flonase 2 sprays each [...] Demerol [Meperidine] Swelling ??? Tramadol Hives BP 122/82 (BP Location: Left arm, Patient Position (BP): Sitting, BP Cuff Size: Large Adult) Pulse (!) 105 Temp 98.8 ??F (37.1 ??C) (Tympanic) Resp 16 Ht 5' 5 (1.651 m) Wt 111.6 kg (246 lb) SpO2 97% BMI 40.94 kg/m?? MEDICAL RECORD UPDATE Past [...] reviewed and updated in computerized patient record. [facility] [address] [place] [address] Care Providers: Patient Care Team: Francis Pereyra MD as PCP - General (Family Practice) No Patient Care Coordination Note on file. Vital signs/Tobacco use BP 122/82 (BP Location: Left arm, Patient Position (BP): Sitting, BP Cuff Size: Large Adult) Pulse (!) 105 Temp 98.8 ??F (37.1 ??C) (Tympanic) Resp 16 Ht 5' 5 (1.651 m) Wt 111.6 kg (246 lb) SpO2 97% BMI 40.94 kg/m?? Blood Pressure BP Readings from Last 3 Encounters: 12/09/18 122/82 12/02/18 (!) 152/84 11/05/18 124/84 BMI POC (QM) Body mass index is 40.94 kg/m??. Normal BMI range: 18 & older: > or = 18.5 and < 25 Abnormal high BMI: Patient counseled on lifestyle modifications including weight loss and daily exercise. The 10-year CVD risk score (Tay'Talino, et al., 2008) is: 3.6% Values used to calculate the score: Age: [...] Respiratory: Negative. Cardiovascular: Negative. Gastrointestinal: Positive for vomiting. Negative for abdominal pain, blood in stool, constipation,diarrhea, heartburn, melena and nausea. Choking at times with sensation food caught in upper chest area. Musculoskeletal: Negative. Skin: Negative. Neurological: Negative. Objective [...] She has no rales. Abdominal: Soft. Normal appearance and bowel sounds are normal. There is no hepatosplenomegaly. There is no tenderness. There is no rigidity, no rebound, no guarding, no CVA tenderness, no tendernessat McBurney's point and negative Leal's sign. Neurological: She is alert and oriented to person, place, and time. Skin: Skin is warm and dry. No results found for any visits on 12/09/18 (from the past 24 hour(s)). ASSESSMENT and PLAN: Lis was seen today for follow up. Diagnoses and all orders for this visit: Dysphagia, unspecified type - EGD; Future Type 2 diabetes mellitus without complication, without long-term current use of insulin Elevated lipoprotein(a) Morbid obesity with body mass index of 40.0-49.9 Microalbuminuria Dysphagia-EGD ordered, denies GERD symptoms. Vomits only to relieve food from esophagus. Pt agreeable. Avoid fibrous meat, chew thoroughly. Type 2 DM-Continue plan, remember to take Metformin. She is working on it. Hyperlipidemia-check fasting lipids next OV, on [facility] med. Obesity-BP stable with Phentermine, increase to 37.5 mg daily. RX request sent to Dr Pereyra. Enc to increase aerobic exercise, reduce caloric intake to 1200 sunny/day. Follow up in 1 month. Microalbuminuria-declines start to ACEI, discussed. Wants to take Metformin and reduce her BS, wt and see how things go. Will repeat in 6 mos. documented in this encounter Plan of Treatment Upcoming Encounters Date Type Department Care Team (Late st Contact Info) Description 06/20/2024 9:30 AM BLOW TORCH OPERATOR Office Visit [facility] Orthopedic Surgery at the [facility] [address] [facility] [address] [address] [place] [address] [place] [address] [place] [address] 10/27/2024 2:45 PM CDT Office Visit [facility] Gastroenterology [facility] [address] [facility] [address] [place] [address] Bebo Benites MD [address] [facility] [address] [place] [address] documented as of this encounter Results * (ABNORMAL) MICROALBUMIN/CREATININE RATIO, RANDOM UR (07/19/2019 8:40 AM BLOW TORCH OPERATOR) Creatinine, Urine 233.0 Not Estab. mg/dL [facility] MICROALBUMIN URINE 89.5 Not Estab. ug/mL [facility] MICROALBUMIN/CREA T RATIO, UR 38(H) 0 - 29 mg/g creat [facility] Comment: ? Normal: ?0 - ??29 ? Moderately increased: 30 - 300 ? Severely increased: ? >300 ?Please note reference interval change Urine URINE SPECIMEN OBTAINED BY CLEAN CATCH PROCEDURE / Unknown 07/19/2019 8:40 AM BLOW TORCH OPERATOR 07/19/2019 Narrative [facility] - 07/20/2019 10:36 AM BLOW TORCH OPERATOR Performed at: ??[address] - [address], [place], [place] ??[id number] Die Operator: Elan Crawford PhD, Phone: ??[phone] Tessa Su CAM MILLING MACHINE OPERATOR URINE ORDERABLE S [facility] [phone] documented in this encounter Visit Diagnoses Diagnosis Dysphagia, unspecified type- Primary Type 2 diabetes mellitus without complication, without long-term current use of insulin Elevated lipoprotein(a) Other disorders of lipoid metabolism Morbid obesity with body mass index of 40.0-49.9 Microalbuminuria Proteinuria Lymphadenopathy- Primary Enlargement of lymph nodes Mild intermittent asthma without complication Unspecified asthma Screening for condition Screening for unspecified condition Microalbuminuria Proteinuria documented in this encounter Additional Health Concerns Assessment Noted Time PHQ-9 Depression Total Score: 6 07/08/19 19 9:00 AM BLOW TORCH OPERATOR documented as of this encounter Care Teams Mild Disabilities Teacher Relationship Specialty Start Date End Date Francis Pereyra MD PCP - General Family Practice 02/08/18 12/08/21 documented as of this encounter
--- OUTSIDE RECORDS SUMMARY | 2024-06-08 20:23 | XMS_ITS | Encounter Summary ---
Author Organization [facility] Address [address] [place] [address] Care Team Providers Care Manager Strategic Alliances Name Role Phone Francis Pereyra MD Primary Care Provider Unava ilable Reason for Visit * Reason Comments Follow Up Encounter Details Date Type Department Care Team (Late st Contact Info) Description 07/20/2018 3:00 PM PAINT SPRAYER SANDBLASTER Office Visit [facility] at Work [employer] [address] [place] [address] Jeff Genao, MICHAEL [address] [facility] [address] [place] [address] Changing nevus (Primary Dx); Mild intermittent asthma without complication; Recurrent major [...] Sign Reading Time Taken Comments Blood Pressure 132/94 07/20/2018 2:58 PM PAINT SPRAYER SANDBLASTER Pulse 102 07/20/2018 2:58 PM PAINT SPRAYER SANDBLASTER Temperature 36.7 ??C (98.1 ??F) 07/20/2018 2:58 PM CS T Respiratory Rate 18 07/20/2018 2:58 PM PAINT SPRAYER SANDBLASTER Oxygen Saturation 98% 07/20/2018 2:58 PM PAINT SPRAYER SANDBLASTER Inhaled Oxygen Concentration - - Weight 109.8 kg (242 lb) 07/20/2018 2:58 PM PAINT SPRAYER SANDBLASTER Height 165.1 cm (5' 5 ) 07/20/2018 2:58 PM PAINT SPRAYER SANDBLASTER Body Mass Index 40.27 07/20/2018 2:58 PM PAINT SPRAYER SANDBLASTER documented in this encounter Progress Notes * Jeff Genao, BUTTON SAWYER - 07/20/2018 3:50 PM CSTAssociated Order(s): GENERAL PROCEDURE Post-Procedure Diagnose(s): Changing nevus HISTORY OF PRESENT ILLNESS Lis Phelan is a 33 y.o. female who presents for Chief Complaint Patient presents with ??? Follow Up Wants to restart her Metformin, Effexor. Labs done. Here for excision of lesion to right foot. States she has right foot mild pain surrounding lesion. See last OV note. Hx of IFG, depression. Past Medical History: Diagnosis Date ??? Arthritis ??? Asthma ??? Depression ??? Diabetes mellitus ??? GERD (gastroesophageal reflux disease) ??? Headache ??? History of shingles ??? HTN (hypertension) ??? Hyperlipidemia Current Outpatient Prescriptions Medication Sig Dispense Refill ??? venlafaxine (EFFEXOR XR) 37.5 mg Extended Release 24 hour capsule Take 1 Capsule (37.5 mg) by mouth daily. 14 Capsule 0 ??? pravastatin (PRAVACHOL) 40 mg tablet Take 1 Tablet (40 mg) by mouth daily with supper. 90 Tablet 1 ??? venlafaxine (EFFEXOR XR) 75 mg Extended Release 24 hour capsule Take 1 Capsule (75 mg) by mouthdaily. 30 Capsule 3 ??? albuterol HFA 90 mcg inhaler Take 1-2 Puffs by inhalation every 4 hours as needed for Shortnessof Breath or Wheezing. 6.7 Gram 3 ??? metFORMIN (GLUCOPHAGE) 500 mg tablet Take 1 Tablet (500 mg) by mouth 2 times daily with meals. 180 Tablet 1 ??? etonogestrel (IMPLANON SDRM) by Subdermal route. ??? [DISCONTINUED] pravastatin (PRAVACHOL) 20 mg tablet Take 2 Tablets (40 mg) by mouth daily with supper. 90 Tablet 0 ??? [DISCONTINUED] metFORMIN (GLUCOPHAGE) 500 mg tablet Take 1 Tablet (500 mg) by mouth daily with breakfast. 90 Tablet 0 No current facility-administered medications for this visit. Allergies Allergen Reactions ??? Chantix [Varenicline] Anaphylaxis ??? Metronidazole Nausea and Vomiting Other reaction(s): Vomiting ??? Demerol [Meperidine] Swelling ??? Tramadol Hives BP (!) 132/94 (BP Location: Left arm, Patient Position (BP): Sitting, BP Cuff Size: Large Adult) Pulse (!) 102 Temp 98.1 ??F (36.7 ??C) (Tympanic) Resp 18 Ht 5' 5 [...] reviewed and updated in computerized patient record. [address] Care Providers: Patient Care Team: Francis Pereyra MD as PCP - General (Family Practice) No Patient Care Coordination Note on file. EXAMINATION BP (!) 132/94 (BP Location: Left arm, Patient Position (BP): Sitting, BP Cuff Size: Large Adult) Pulse (!) 102 Temp 98.1 ??F (36.7 ??C) (Tympanic) Resp 18 Ht 5' 5 (1.651 m) Wt 109.8 kg (242 lb) SpO2 98% BMI 40.27 kg/m?? Blood Pressure BP Readings from Last 3 Encounters: 07/20/18 (!) 132/94 07/08/18 138/86 02/08/18 134/88 BMI POC (QM) Body mass index is 40.27 kg/m??. Normal BMI range: 18 & older: > or = 18.5 and < 25 Last 4 BPs: 07/20/18 1458 BP: (!) 132/94 The 10-year CVD risk score (Amishino, et al., 2008) is: 3.9% Values used to calculate the score: Age: 33 years Sex: Female Diabetic: Yes Tobacco smoker: No Systolic Blood Pressure: 132 mmHg Is BP treated: No HDL Cholesterol: 48 mg/dL Total Cholesterol: 206 mg/dL Consider Statins if 10 year risk >7.5-10% REVIEW OF SYSTEMS Review of Systems Constitutional: Negative. HENT: Negative. Eyes: Negative. Respiratory: Negative. Cardiovascular: Negative. Gastrointestinal: Negative. Genitourinary: Negative. Musculoskeletal: Negative. Skin: Right foot lesion Neurological: Negative. Psychiatric/Behavioral: Positive for depression. Negative for substance abuse and suicidal ideas. The patient is nervous/anxious. Objective PHYSICAL EXAM Physical Exam Constitutional: She is oriented to person, place, and time. She appears well- developed and well-nourished. HENT: Head: Normocephalic and atraumatic. Nose: Nose normal. Eyes: Conjunctivae and EOM are normal. Neck: No thyroid mass and no thyromegaly present. Cardiovascular: Normal rate, regular rhythm, S1 normal, S2 normal and normal heart sounds. Exam reveals no gallop and no friction rub. No murmur heard. Pulmonary/Chest: Effort normal and breath sounds normal. No respiratory distress. She has no wheezes. She has no rales. Neurological: She is alert and oriented to person, place, and time. Skin: Skin is warm and dry. Dorsal right foot: 8 mm superficial smooth plaque flesh colored with darker pigmented 2 mm areas - 2. No results found for any visits on 07/20/18 (from the past 24 hour(s)). General Procedure Date/Time: 07/22/2018 8:45 AM Performed by: JEFF GENAO Authorized by: JEFF GENAO Consent: Consent obtained: Verbal Consent given by: Patient Risks discussed: Bleeding, infection and pain Alternatives discussed: Referral Indications: Indications: Changing nevus Pre-procedure details: Skin preparation: Betadine Preparation: Patient was prepped and draped in the usual sterile fashion Anesthesia (see MAR for exact dosages): Anesthesia method: Local infiltration Local anesthetic: Lidocaine 1% WITH epi Post-procedure details: Patient tolerance of procedure: Tolerated well, no immediate complications Comments: Shave excision done. Sent for path. No bleeding, bacitracin to site, dressing applied. ASSESSMENT and PLAN: Lis was seen today for follow up. Diagnoses and all orders for this visit: Changing nevus - PATHOLOGY; Future Mild intermittent asthma without complication - albuterol HFA 90 mcg inhaler; Take 1-2 Puffs by inhalation every 4 hours as needed for Shortness of Breath or Wheezing. Recurrent major depressive disorder, in partial remission - venlafaxine (EFFEXOR XR) 37.5 mg Extended Release 24 hour capsule; Take 1 Capsule (37.5 mg) by mouth daily. - venlafaxine (EFFEXOR XR) 75 mg Extended Release 24 hour capsule; Take 1 Capsule (75 mg) by mouth daily. Type 2 diabetes mellitus without complication, without long-term current use of insulin - metFORMIN (GLUCOPHAGE) 500 mg tablet; Take 1 Tablet (500 mg) by mouth 2 times daily with meals. Elevated lipoprotein(a) - pravastatin (PRAVACHOL) 40 mg tablet; Take 1 Tablet (40 mg) by mouth daily with supper. Other orders - Discontinue: metFORMIN (GLUCOPHAGE) 500 mg tablet; Take 1 Tablet (500 mg) by mouth 2 times daily with meals. Type 2 diabetes-controlled but needs to restart Metformin. 07/15/18 labs: FBS 130, hgA1c 5.9, LDL 134. Elevated LDL-Start Pravachol, dc Fenofibrate. Will recheck labs in 8 weeks. Monitor for muscle aching, pain. Depression restart Effexor-Zoloft did not help. Start 37.5 mg daily for 1 week then 75 mg daily. Asthma- controlled. Refill prn inhaler. Nevus to right foot-mild hyperpigmentation. Shave excision done and sent for path. Follow up in 1 month. T SPRAYER SANDBLASTER documented in this encounter Procedure Notes * Jeff Genao NP - 07/22/2018 8:44 AM CSTAssociated Order(s): EXCISE SKIN LESION, TRUNK, ARM, OR LEG Procedure(s): ND EXC B9 LESION MRGN XCP SK TG T/A/L 0.5 CM/< Pre-Procedure Diagnose(s): Changing nevus T SPRAYER SANDBLASTER documented in this encounter Plan of Treatment Upcoming Encounters Date Type Department Care Team (Late st Contact Info) Description 06/20/2024 9:30 AM PAINT SPRAYER SANDBLASTER Office Visit [facility] Orthopedic Surgery at the [facility] [address] [facility] [address] [address] [place] [phone] [place] [address] [place] [address] 10/27/2024 2:45 PM CDT Office Visit [facility] Gastroenterology [address] [place] [address] Bebo Benites MD [address] [facility] [address] [place] [address] documented as of this encounter Procedures Procedure Name Priority Date/Time Associated Diagnosis Comments ND EXC B9 LESION MRGN XCP SK TG T/A/L 0.5 CM/< Routine 07/22/2018 8:44 AM PAINT SPRAYER SANDBLASTER Changing nevus PATHOLOGY Routine 07/20/2018 3:53 PM PAINT SPRAYER SANDBLASTER Changing nevus GENERAL PROCEDURE Routine 07/20/2018 3:5 0 PM PAINT SPRAYER SANDBLASTER Changing nevus documented in this encounter Results * ND EXC B9 LESION MRGN XCP SK TG T/A/L 0.5 CM/< (07/22/2018 8:44 AM PAINT SPRAYER SANDBLASTER) Narrative [facility] [place] - 07/22/2018 8:44 AM PAINT SPRAYER SANDBLASTER Jeff Genao NP ? 07/22/2018 10:55 AM Jeff Genao NP PROCEDURE/MINOR SURGICAL ORDERABLES [facility] JANES# [id number] [place] [place] [address] * PATHOLOGY (07/20/2018 3:53 PM PAINT SPRAYER SANDBLASTER) PATHOLOGIST INTERPRETATION Comment [facility] Comment: Material submitted: ?. RIGHT FOOT PATHOLOGIST INTERPRETATION Comment [facility] Comment: Diagnosis: SUPERFICIAL SKIN WITH THE SURFACE OF A DERMAL SPINDLE CELL PROLIFERATION; PLEASE SEE COMMENT. COMMENT: THE MAIN DIFFERENTIAL DIAGNOSTIC CONSIDERATIONS INCLUDE THE SURFACE OF A BLUE NEVUS AND THE SURFACE OF A FIBROMA. THE LATTER ENTITY IS SLIGHTLY FAVORED IN THIS CASE. A SITE OF POST- INFLAMMATORY PIGMENT ALTERATION WITH FIBORISS OR SITE OF TRAUMA ARE ALSO PLAUSIBLE. SIGNIFICANT ATYPIA IS NOT APPRECIATED. CORRELATION WITH CLINICAL FINDINGS IS RECOMMENDED. IF THIS IS A MUCH LARGER CLINICALLY APPARENT ATYPICAL LESION, THEN ADDITIONAL TISSUE MAY ADD TO OR ALTER THE DIAGNOSIS. (MULTIPLE DEEPER SECTIONS WERE EXAMINED). REVIEWED BY: PRABHA BROWER M.D. YODIT/07/28/2018 PATHOLOGIST INTERPRETATION Comment [facility] Comment: Electronically signed: ? . Soon MD Felton, Dermatopathologist PATHOLOGIST INTERPRETATION Comment [facility] Comment: Gross description: ? . 1 Container, formalin-filled, labeled with patient identification. RIGHT FOOT: 2 FRAGMENTS OF OLIVA SKIN EACH MEASURING 0.4 X 0.3 X 0.1 CM. THE SURGICAL MARGINS ARE INKED YELLOW. EACH SPECIMEN IS SUBMITTED INTACT. IT IS SUBMITTED ENTIRELY IN CASSETTE(S) A1. /CYS CYS/CYS PATHOLOGIST INTERPRETATION Comment [facility] Comment: Microscopic: ?. THE BIOPSY IS SUPERFICIAL AND TRANSECTS A DERMAL SPINDLE CELL PROLIFERATION. THE PROLIFERATION IS COMPRISED OF BLAND ELONGATE CELLS THAT LACK SIGNIFICANT ATYPIA. A LIZ STAIN (APPROPRIATE CONTROL) HIGHLIGHTS A TINY BIT OF MELANIN PIGMENT IN THE UPPER ASPECTS OF THE PROLIFERATION. PATHOLOGIST PROVIDED ICD10: Comment [facility] Comment: Pathologist provided ICD-10: D22.71 PATHOLOGIST INTERPRETATION Comment [facility] Comment: CPT ?. [id number], [id number] Tissue 07/20/2018 3:53 PM PAINT SPRAYER SANDBLASTER 07/20/2018 Narrative [facility] - 07/28/2018 10:37 AM PAINT SPRAYER SANDBLASTER Performed at: ??01 - [facility] [place], [place] ??[id number] [employer]: Beto Chavez MD, Phone: ??[phone] Performed at: ??02 - [facility] Dermatopathology Consult [address], [place], [place] ??[id number] [employer]: Prabha Brower , Phone: ??[phone] Jeff Genao NP PATHOLOGY/CYTOL OGY ORDERABLES Performing Organization Address City/State/[facility] Co de Phone Number [facility] * GENERAL PROCEDURE (07/20/2018 3:50 PM PAINT SPRAYER SANDBLASTER) Narrative [facility] - 07/20/2018 3:50 PM PAINT SPRAYER SANDBLASTER Jeff Genao NP ? 07/22/2018 10:55 AM General Procedure Date/Time: 07/22/2018 8:45 AM Performed by: JEFF GENAO Authorized by: JEFF GENAO Consent: ??Consent obtained: ??Verbal ??Consent given by: ??Patient ??Risks discussed: ??Bleeding, infection and pain ??Alternatives discussed: ??Referral Indications: ??Indications: ??Changing nevus Pre-procedure details: ??Skin preparation: ??Betadine ??Preparation: Patient was prepped and draped in the usual sterile fashion Anesthesia (see MAR for exact dosages): ??Anesthesia method: ??Local infiltration ??Local anesthetic: ??Lidocaine 1% WITH epi Post-procedure details: ??Patient tolerance of procedure: ??Tolerated well, no immediate complications Comments: ?? Shave excision done. Sent for path. No bleeding, bacitracin to site, dressing applied. Jeff Genao NP PROCEDURE/MINOR SURGICAL ORDERABLES Performing Organization Address [facility] Co de Phone Number [facility] CLIA# [id number] [address] [facility] [address] documented in this encounter Visit Diagnoses Diagnosis Changing nevus- Primary Benign neoplasm of skin, site unspecified Mild intermittent asthma without complication Unspecified asthma Recurrent major depressive disorder, in partial remission Type 2 diabetes mellitus without complication, without long-term current use of insulin Elevated lipoprotein(a) Other disorders of lipoid metabolism documented in this encounter Additional Health Concerns Assessment Noted Time PHQ-9 Depression Total Score: 6 07/08/19 19 9:00 AM PAINT SPRAYER SANDBLASTER documented as of this encounter Care Teams Manager Strategic Alliances Relationship Specialty Start Date End Date Francis Pereyra MD PCP - General Family Practice 02/08/18 12/08/21 documented as of this encounter
--- OUTSIDE RECORDS SUMMARY | 2024-06-08 20:23 | XMS_ITS | Encounter Summary ---
Author Organization [facility] Address [address] [place] [address] Care Team Providers Care Clinical Nursing Director Name Role Phone Francis Pereyra MD Primary Care Provider Unava ilable Reason for Visit * Reason Comments Lesions Pt states that she h as a sore in her left nostril, noticed it Thursday morning, tried to pop it with her fingers and nothing came so she snipped it with some clippers and it bled. Encounter Details Date Type Department Care Team (Late st Contact Info) Description 02/08/2018 2:00 PM CDT Office Visit [facility] at Work [employer] [address] [place] [address] Francis Pereyra MD NO ADDRESS ON FILE Nasal lesion (Primary Dx) Social History Tobacco Use Types [...] Sign Reading Time Taken Comments Blood Pressure 134/88 02/08/2018 2:03 PM CDT Pulse 101 02/08/2018 2:03 PM CDT Temperature 37 ??C (98.6 ??F) 02/08/2018 2:03 PM CDT Respiratory Rate 18 02/08/2018 2:03 PM CDT Oxygen Saturation 98% 02/08/2018 2:03 PM CDT Inhaled Oxygen Concentration - - Weight 106.1 kg (234 lb) 02/08/2018 2:03 PM CDT Height 165.1 cm (5' 5 ) 02/08/2018 2:03 PM CDT Body Mass Index 38.94 02/08/2018 2:03 PM CDT documented in this encounter Progress Notes * Francis Pereyra MD - 02/08/2018 2:10 PM CDT Lis Phelan is a 33 y.o. female Chief Complaint/HPI: Chief Complaint Patient presents with ??? Lesions Pt states that she has a sore in her left nostril, noticed it Thursday morning, tried to pop it with her fingers and nothing came so she snipped it with some clippers and it bled. left nostril just inside. Few days ago. treid to squeeze pop it but nothing. Then plucked it with sharp tweezers and it bled but no pus or other. Now calming down. Had dream she had nose cancer so she is here to be reassured. No pain and no redness visible. Chart reviewed. Tobacco Intervention She is not a tobacco user. Blood Pressure BP Readings from Last 3 Encounters: 02/08/18 134/88 10/07/17 128/86 05/01/17 134/86 This medical record reflects the history of present illness as obtained by myself in discussion with the patient. SUBJECTIVE: Here for above problems. Allergy and medication list reviewed and updated. Review of Systems - History obtained from chart review General ROS: negative for weight changes, fever Dermatological ROS: positive for - skin lesion changes nasal OBJECTIVE: She appears well, in no apparent distress. Vital signs documented in vital signs section are reviewed. Physical Examination: General appearance - alert, well appearing, and in no distress and oriented to person, place, and time Mental status - alert, oriented to person, place, and time, normal mood, behavior, speech, dress, motor activity, and thought processes Ears - bilateral TM's and external ear canals normal Nose - normal and patent, no erythema, discharge or polyps and has small pale appearing lesion approx 1-2 mm diameter just isnde left nostril. No erythema or draiange or blister. Mouth - mucous membranes moist, pharynx normal without lesions ASSESSMENT AND PLAN: ICD-10-CM ICD-9-CM 1. Nasal lesion J34.89 478.19 Followup visit prn documented in this encounter Miscellaneous Notes * Patient Instructions - Francis Pereyra MD - 02/08/2018 2:45 PM CDT An After Visit Summary was printed and given to the patient. Leave alone - do not pick or squeeze May apply neosporin at bedtime for few nights. Call or retrun for changes documented in this encounter Plan of Treatment Upcoming Encounters Date Type Department Care Team (Late st Contact Info) Description 06/20/2024 9:30 AM RESEARCH QUALITY ASSURANCE ANALYST Office Visit [facility] Orthopedic Surgery at the [facility] Medicine [address] [facility] [address] [place] [address] [place] [address] [place] [address] 10/27/2024 2:45 PM CDT Office Visit [facility] [address] [place] [phone] Bebo Benites MD [address] [place] [address] documented as of this encounter Visit Diagnoses Diagnosis Nasal lesion- Primary Other diseases of nasal cavity and sinuses documented in this encounter Care Teams Clinical Nursing Director Relationship Specialty Start Date End Date Francis Pereyra MD PCP - General Family Practice 02/08/18 12/08/21 documented as of this encounter
--- OUTSIDE RECORDS SUMMARY | 2024-06-08 20:23 | XMS_ITS | Encounter Summary ---
Author Organization [facility] Address [address] [place] [address] Care Team Providers Care Harness Installer Name Role Phone Francis Pereyra MD Primary Care Provider Unava ilable Reason for Visit * Reason Onset Date Comments Medication Refill 11/05/2018 Encounter Details Date Type Department Care Team (Late st Contact Info) Description 11/05/2018 Refill [facility] at [employer] [address] [employer] [place] [phone] Tessa Su, BRASS INSTRUMENT REPAIR TECHNICIAN [address] [place] [address] Morbid obesity with body mass [...] st Contact Info) Description 06/20/2024 9:30 AM C DEVELOPER Office Visit [facility] Orthopedic Surgery at the [facility] Medicine [address] [place] [address] [place] [address] [place] [address] 10/27/2024 2:45 PM CDT Office Visit [facility] Gastro[facility]ology [facility] [address] [address] [place] [address] Bebo Benites MD [address] [facility] [address] [place] [address] documented as of this encounter Visit Diagnoses Diagnosis Morbid obesity with body mass index of 40.0-49.9- Primary documented in this encounter Additional Health Concerns Assessment Noted Time PHQ-9 Depression Total Score: 6 07/08/19 19 9:00 AM C DEVELOPER documented as of this encounter Care Teams Harness Installer Relationship Specialty Start Date End Date Francis Pereyra MD PCP - General Family Practice 02/08/18 12/08/21 documented as of this encounter
--- OUTSIDE RECORDS SUMMARY | 2024-06-08 20:24 | XMS_ITS | Encounter Summary ---
Author Organization [facility] Address [address] [place] [address] Care Team Providers Care Hay Sorter Name Role Phone Elma Magaña MD Primary Care Provider [phone] Encounter Details Date Type Department Care Team (Late st Contact Info) Description 07/17/2023 Chart Note [facility] at Work [employer] [place] [address] [place] [address] Beni Kaur [address] [place] [address] Social History Tobacco Use Types [...] encounter Progress Notes * Beni Kaur - 07/17/2023 9:50 AM CST [facility] Psychiatric Staffing Consult and Review The consulting psychiatrist and behavioral health care managers met on 07/17/2023 for Lis. The [facility] team discussed Lis diagnosis, goals, progress being made, additional treatment options and any current issues. R RUNNER documented in this encounter Plan of Treatment Upcoming Encounters Date Type Department Care Team (Late st Contact Info) Description 06/20/2024 9:30 AM ORDER RUNNER Office Visit [facility] Orthopedic Surgery at the [facility] [address] [place] [address] [place] [address] [place] [address] 10/27/2024 2:45 PM CDT Office Visit [facility] Gastroenterology [facility] [address] [facility] [address] [place] [address] Bebo Benites MD [address] [address] [facility] [address] [place] [address] documented as of this encounter Visit Diagnoses Not on filedocumented in this encounter Additional Health Concerns Assessment Noted Time PHQ-9 Depression Total Score: 5 07/10/19 24 1:00 PM ORDER RUNNER documented as of this encounter Care Teams Hay Sorter Relationship Specialty Start Date End Date Elma Magaña MD [address] [place] [phone] PCP - General Family Practice 12/09/21 12/13/23 documented as of this encounter
--- OUTSIDE RECORDS SUMMARY | 2024-06-08 20:24 | XMS_ITS | Encounter Summary ---
Author Organization [facility] Address [address] [place] [address] Care Team Providers Care Galvanizing Pot Runner Name Role Phone Bijal Wolfe MD Primary Care Provider [phone] Reason for Visit * Reason Onset Date Comments FMLA 05/03/2024 Encounter Details Date Type Department Care Team (Late st Contact Info) Description 05/03/2024 Telephone [facility] Gastroenterology [facility] [address] [place] [address] Cheyenne Kendall PA-C [address] [place] [address] FMLA Social History Tobacco Use Types Packs/Day Years [...] encounter Miscellaneous Notes * Telephone Encounter - Kary Hansen RMA - 05/03/2024 9:10 AM CST L/m with patient to fax or drop off FMLA forms to be filled out [employer] LEADERSHIP DEVELOPMENT * Telephone Encounter - Kary Hansen RMA - 05/03/2024 9:10 AM CST ----- Message from Cheyenne Kendall sent at 04/28/2024 8:03 AM MANAGER LEADER[employer]IP DEVELOPMENT ----- Kary, Please let patient know they can drop off FMLA paperwork to be completed -Cheyenne Kendall PA-C ----- Message ----- From: Bebo Benites MD Sent: 04/27/2024 8:55 PM MANAGER LEADERSHIP DEVELOPMENT To: Cheyenne Kendall PA-C Agree with the plan. FMLA could be filled if her symptoms are solely related to GI issues. Thank you. ----- Message ----- From: Cheyenne Kendall PA-C Sent: 04/27/2024 3:55 PM MANAGER LEADERSHIP DEVELOPMENT To: MD Dr. Delmis Hernandez, patient seen today for chronic diarrhea and abdominal pain. 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 You saw her in 2021 to establish care recommendedBentyl never tried this. Here today to discuss intermittent FMLA for her symptoms her employer clinic was completing in the past allowing 2 days 2 times per month as needed for pain and diarrhea as difficult to make it to bathroom. This in November. We discussed she has not failed therapy multiple options to try. Explained GI typically does not complete paperwork rather her PCP. But again they have requested GI complete as she is missing work for GI symptoms. Recommended starting with therapy and ultimately defer decision for FMLA to physician. Let me know your thoughts she will be following up with me in 3 months [employer] LEADERSHIP DEVELOPMENT documented in this encounter Plan of Treatment Upcoming Encounters Date Type Department Care Team (Late st Contact Info) Description 06/20/2024 9:30 AM MANAGER LEADERSHIP DEVELOPMENT Office Visit [facility] Orthopedic Surgery at the [facility] [address] [facility] [address] [place] [phone] [place] [address] [place] [address] 10/27/2024 2:45 PM CDT Office Visit [facility] Gastroenterology [facility] [address] [place] [address] Bebo Benites MD [address] [facility] [address] [place] [address] documented as of this encounter Visit Diagnoses Not on filedocumented in this encounter Additional Health Concerns Assessment Noted Time PHQ-9 Depression Total Score: 4 08/21/19 24 1:00 PM MANAGER LEADERSHIP DEVELOPMENT documented as of this encounter Care Teams Galvanizing Pot Runner Relationship Specialty Start Date End Date Bijal Wolfe MD [address] [place] [id number] PCP - General Internal Medicine 12/14/23 documented as of this encounter
--- OUTSIDE RECORDS SUMMARY | 2024-06-08 20:24 | XMS_ITS | Encounter Summary ---
Author Organization [facility] Address [address] [place] [address] Care Team Providers Care Side Seam Machine Operator Name Role Phone Elma Magaña MD Primary Care Provider [phone] Reason for Visit * Reason Onset Date Comments Medication Refill 07/28/2023 Encounter Details Date Type Department Care Team (Late st Contact Info) Description 07/28/2023 Refill [facility] at [facility] [place] [address] [place] [phone] Luba Vuong, ANP [address] [facility] Rhodarico Scott [address] [place] [address] Type 2 diabetes mellitus without [...] Notes * Telephone Encounter - Ness Kidd E - 07/28/2023 3:40 PM CST Aware scripts will be ready for pickle pumper tomorrow NCIAL SERVICES INTERN * Telephone Encounter - Ness Kidd - 07/28/2023 3:39 PM CST Pt is scheduled for a follow up visit w/ you in august NCIAL SERVICES INTERN * Telephone Encounter - Luba Vuong ANP - 07/28/2023 3:38 PM CST Due now for DM appointment and labs. NCIAL SERVICES INTERN * Telephone Encounter - Gustavo Dunham - 07/28/2023 2:09 PM CST Escitalopram Last refilled:05/07/23 Quantity given:90 Number of refills:0 Last appointment:07/10/23 Next appointment:None Scheduled Last Labs: 03/25/23 Lisinopril Last refilled:12/26/22 Quantity given:90 Number of refills:0 NCIAL SERVICES INTERN documented in this encounter Plan of Treatment Upcoming Encounters Date Type Department Care Team (Late st Contact Info) Description 06/20/2024 9:30 AM FINANCIAL SERVICES INTERN Office Visit [facility] Orthopedic Surgery at the [facility] [address] [place] [address] [place] [address] [place] [address] 10/27/2024 2:45 PM CDT Office Visit [facility] Gastroenterology [facility] [address] [place] [address] Bebo Benites MD [address] [facility] [address] [address] [place] [address] documented as of this encounter Procedures Procedure Name Priority Date/Time Associated Diagnosis Comments CBC WITH DIFFERENTIAL Routine 08/27/2023 2:38 PM FINANCIAL SERVICES INTERN Type 2 diabetes mellitus without complication, without long-term current use of insulin COMPREHENSIVE METABOLIC PANEL Routine 08/27/2023 2:38 PM FINANCIAL SERVICES INTERN Type 2 diabetes mellitus without complication, without long-term current use of insulin documented in this encounter Results * MICROALBUMIN/CREATININE RATIO, RANDOM UR (08/27/2023 2:38 PM FINANCIAL SERVICES INTERN) Creatinine, Urine 162 20 - 275 mg/dL [facility] MICROALBUMIN, URINE 0.9 See Note: mg/dL [facility] Comment: Reference Range: Reference Range Not established MICROALBUMIN/CREAT RATIO, UR 6 <30 mcg/mg creat [facility] Comment: The ADA defines abnormalities in [...] within a diagnostic category. Test Performed at: [facility] [id number] [place] [address] ??[phone] Molina Pascual MD Urine URINE SPECIMEN OBTAINED BY CLEAN CATCH PROCEDURE / Unknown 08/27/2023 2:38 PM FINANCIAL SERVICES INTERN 08/28/2023 3:11 AM FINANCIAL SERVICES INTERN Luba YI URINE ORDERABLES [facility] [phone] [facility] [address] [place] [address] * HEMOGLOBIN A1C (08/27/2023 2:38 PM FINANCIAL SERVICES INTERN) HEMOGLOBIN A1C 5.4 <5.7 % of total Hgb [facility] Comment: For the purpose of screening for the presence of diabetes: <5.7% ? Consistent with the absence of diabetes 5.7-6.4% ?Consistent with increased risk for diabetes ?(prediabetes) > or =6.5% ??Consistent with diabetes This assay result is consistent with a decreased risk of diabetes. Currently, no consensus exists regarding use of hemoglobin A1c for diagnosis of diabetes in children. According to [place] Diabetes Association (ADA) guidelines, hemoglobin A1c <7.0% represents optimal control in non- diabetic patients. Different metrics may apply to specific patient populations. Standards of Medical Care in Diabetes(ADA). ?? ESTIMATED AVERAGE GLUCOSE (MG/DL) 108 mg/dL [facility] ESTIMATED AVERAGE GLUCOSE (MMOL/L) 6.0 mmol/L [facility] Comment: ?? This test was performed on the [employer] c8000 platform. Please be advised that [facility] will move hemoglobin A1c testing to the [employer] platform soon. In general, direct comparison of the results from different platforms is not recommended. Test Performed at: [facility] [address] [place], [place] ??[phone] Carol-Diogenesu Thi Vo Blood 08/27/2023 2:38 PM FINANCIAL SERVICES INTERN 08/28/2023 12:19 AM FINANCIAL SERVICES INTERN Luba Vuong [facility] CHEMISTRY ORDERABLES [facility] [phone] [facility] [address] [place] [address] * CBC WITH DIFFERENTIAL (08/27/2023 2:38 PM FINANCIAL SERVICES INTERN) WBC 8.6 3.8 - 10.8 Thousand/u L [facility] RBC 4.21 3.80 - 5.10 Million/uL [facility] HEMOGLOBIN 13.1 11.7 - 15.5 g/dL [facility] HEMATOCRIT 39.4 35.0 - 45.0 % [facility] MCV 93.6 80.0 - 100.0 fL [facility] MCH 31.1 27.0 - 33.0 pg [facility] MCHC 33.2 32.0 - 36.0 g/dL [facility] RDW 14.1 11.0 - 15.0 % [facility] PLATELETS 178 140 - 400 Thousand/u L [facility] MPV 10.7 7.5 - 12.5 fL [facility] NEUTROPHIL ABSOLUTE 4,403 1,500 - 7,800 cells/uL [facility] LYMPHOCYTE ABSOLUTE 3,096 850 - 3,900 cells/uL [facility] MONOCYTE ABSOLUTE 585 200 - 950 cells/uL [facility] EOSINOPHIL ABSOLUTE 464 15 - 500 cells/uL [facility] BASOPHILS ABSOLUTE 52 0 - 200 cells/uL [facility] NEUTROPHIL 51.2 % [facility] LYMPHOCYTES 36.0 % [facility] MONOCYTE 6.8 % [facility] EOSINOPHILS 5.4 % [facility] BASOPHILS 0.6 % [facility] Comment: Test Performed at: [facility] [address] [place], [place] ??[phone] Molina Pascual Blood 08/27/2023 2:38 PM FINANCIAL SERVICES INTERN 08/28/2023 12:19 AM FINANCIAL SERVICES INTERN Luba YI HEMATOLOGY ORDERABLE S Performing Organization Address City/[facility]/ZIP [facility] Phone Number [facility] [phone] [facility] [address] [place] [address] * TSH REFLEXIVE (08/27/2023 2:38 PM FINANCIAL SERVICES INTERN) TSH TNP mIU/L [facility] Comment: TEST NOT PERFORMED No serum received. Test Performed at: [facility] [address] [address] ??[phone] Molina Pascual MD Blood 08/27/2023 2:38 PM FINANCIAL SERVICES INTERN 08/28/2023 12:19 AM FINANCIAL SERVICES INTERN Luba YI CHEMISTRY ORDERABLES [facility] [phone] [facility] [address] [place] [address] * COMPREHENSIVE METABOLIC PANEL (08/27/2023 2:38 PM FINANCIAL SERVICES INTERN) GLUCOSE TNP mg/dL [facility] Comment: TEST NOT PERFORMED No suitable specimen received. Please review the test requirements at [facility] Test Performed at: [facility] [address] [place] ??[id number] CarolGuy Briseno Vo Blood 08/27/2023 2:38 PM FINANCIAL SERVICES INTERN 08/28/2023 12:19 AM FINANCIAL SERVICES INTERN Luba Vuong [facility] CHEMISTRY ORDERABLES [facility] [phone] [facility] [address] [place] [phone] * LIPID PANEL (08/27/2023 2:38 PM FINANCIAL SERVICES INTERN) CHOLESTEROL TNP mg/dL [facility] Comment: TEST NOT PERFORMED No suitable specimen received. Please review the test requirements at [facility] HDL TNP mg/dL [facility] Comment: TEST NOT PERFORMED No suitable specimen received. Please review the test requirements at [facility] TRIGLYCERIDE TNP mg/dL [facility] Comment: TEST NOT PERFORMED No suitable specimen received. Please review the test requirements at [facility] LDL CALCULATED TNP mg/dL (calc) [facility] Comment: TEST NOT PERFORMED No suitable specimen received. Please review the test requirements at [facility] CHOL/HDL RATIO TNP (calc) [facility] Comment: TEST NOT PERFORMED No suitable specimen received. Please review the test requirements at [facility] TOTAL NON-HDL CHOL(LDL+VLDL) TNP mg/dL (calc) [facility] Comment: TEST NOT PERFORMED No suitable specimen received. Please review the test requirements at [email or web address] Test Performed at: [facility] [address] [place] ??[id number] Molina Pascual Blood 08/27/2023 2:3 8 PM FINANCIAL SERVICES INTERN 08/28/2023 12:19 AM FINANCIAL SERVICES INTERN Luba Martins Yevgeniy [facility] CHEMISTRY ORDERABLES [facility] [phone] [facility] [address] [place] [phone] documented in this encounter Visit Diagnoses Diagnosis Type 2 diabetes mellitus without complication, without long-term current use of insulin- Primary documented in this encounter Additional Health Concerns Assessment Noted Time PHQ-9 Depression Total Score: 5 07/10/19 24 1:00 PM FINANCIAL SERVICES INTERN documented as of this encounter Care Teams Side Seam Machine Operator Relationship Specialty Start Date End Date Elma Magaña MD [address] [place] [address] PCP - General Family Practice 12/09/21 12/13/23 documented as of this encounter
--- OUTSIDE RECORDS SUMMARY | 2024-06-08 20:24 | XMS_ITS | Encounter Summary ---
Author Organization [facility] Address [address] [place] [address] Care Team Providers Care Daycare Worker Name Role Phone Bijal Wolfe MD Primary Care Provider [phone] Reason for Referral * EMG (Routine) - Open Specialty Diagnoses / Procedures Referred By Rodney call Referred To Contact Diagnoses Numbness and tingling in left hand Procedures EMG WITH NERVE CONDUCTION Luba Vuong ANP [address] [place] [address] Referral ID Status Reason Start Date Expiration Date Visits Re quested Visits Authorized [id number] Open 03/07/2024 04/07/2025 1 1 Reason for Visit * Reason Comments Hand Pain Left hand pain, prog ressively worsening over the last 6 months, concerned could be carpal tunnel. Encounter Details Date Type Department Care Team (Late st Contact Info) Description 03/07/2024 11:00 AM CDT Office Visit [facility] at Work [employer] [place] [address] [place] [phone] Luba Vuong ANP [address] [place] [address] Numbness and tingling in left hand (Primary Dx); Pain in right buttock; Mild intermittent asthma without complication; Nightmares associated with chronic post-traumatic stress disorder Social History Tobacco Use Types Packs/Day [...] Reading Time Taken Comments Blood Pressure 124/76 03/07/2024 10:58 AM CDT Pulse 81 03/07/2024 10:58 AM CDT Temperature 37.1 ??C (98.7 ??F) 03/07/2024 10:58 AM C DT Respiratory Rate 18 03/07/2024 10:58 AM CDT Oxygen Saturation 99% 03/07/2024 10:58 AM CDT Inhaled Oxygen Concentration - - Weight 104.8 kg (231 lb) 03/07/2024 10:58 AM CDT Height 167.6 cm (5' 6 ) 03/07/2024 10:58 AM CDT Body Mass Index 37.28 03/07/2024 10:58 AM CDT documented in this encounter Progress Notes * Luba Vuong, ANP - 03/07/2024 11:13 AM CDT HISTORY OF PRESENT ILLNESS Lis Phelan, a 39 y.o. female presents with a Chief Complaint of Hand Pain (Left hand pain, progressively worsening over the last 6 months, concerned could be carpal tunnel.) 6 months of pain L hand palmar aspect shooting into thumb and index finger. Numbness of thumb and index. 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 R hand dominant. 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 No repetitive hobbies. Notes symptoms worsen during evening dinner food prep, riding aakash rcycle using L hand to operate clutch. 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 Dr. Mackey at [facility] did surgery in 2020 DM- Was out of [facility] for insurance issues for 2 months. Restarted 2 weeks ago at 10 mg and tolerating well. Taking all other meds. PTSD nightmares- Did not tolerate the prazosin. [place] unsteady and confused with it during night and several hours Katerina. Stopped medication. Working through the issues on her own. REVIEW OF SYSTEMS Review of Systems Constitutional: Negative. Respiratory: Negative. Cardiovascular: Negative. Musculoskeletal: Negative for arthralgias, myalgias, neck pain and neck stiffness. Neurological: Positive for numbness. Negative for dizziness, weakness and headaches. Psychiatric/Behavioral: Positive for sleep disturbance (wakes wtih full L hand numb). Objective PHYSICAL EXAM BP 124/76 (BP Location: Right arm, Patient Position (BP): Sitting, BP Cuff Size: Adult) Pulse 81 Temp 98.7 ??F (37.1 ??C) (Tympanic) Resp 18 Ht 5' 6 (1.676 m) Wt 104.8 kg (231 lb) SpO2 99% BMI 37.28 kg/m?? Physical Exam Vitals reviewed. Cardiovascular: Rate and Rhythm: Regular rhythm. Heart sounds: Normal heart sounds. Pulmonary: Breath sounds: Normal breath sounds. Musculoskeletal: Cervical back: Normal range of motion and neck supple. No rigidity. Skin: General: Skin is warm and dry. Capillary Refill: Capillary refill takes less than 2 seconds. Neurological: Mental Status: She is alert. Sensory: Sensory deficit (reduced over L thumb and index finger) present. Comments: Phalens test = numbness in L thumb, index and to 3rd finger. Tinel's== positive for pain triggered. Psychiatric: Mood and Affect: Mood normal. Procedures Assessment ASSESSMENT and PLAN: 1. Numbness and tingling in left hand Consistent with CTS. Start with night splint use x 2 weeks consistently. Mobic daily for 2 weeks. EMG testing Referral to Dr. Mackey based on results. - TSH REFLEXIVE; Future - CBC WITH DIFFERENTIAL; Future - COMPREHENSIVE METABOLIC PANEL; Future - MAGNESIUM LEVEL; Future - EMG WITH NERVE CONDUCTION; Future - TSH REFLEXIVE - CBC WITH DIFFERENTIAL - COMPREHENSIVE METABOLIC PANEL - MAGNESIUM LEVEL 2. Pain in right buttock Continue pain mgmt FU. - meloxicam (MOBIC) 7.5 mg tablet; Take 1 Tablet (7.5 mg) by mouth daily. Dispense: 30 Tablet; Refill: 0 3. Mild intermittent asthma without complication Refilled. Last used in 2020. - albuterol sulfate HFA 90 mcg/actuation aerosol inhaler; Take 1-2 Puffs by inhalation every 6 hours as needed for Shortness of Breath or Wheezing. Dispense: 8.5 Gram; Refill: 0 4. Nightmares associated with chronic post-traumatic stress disorder Did not tolerate meds. Continue therapy as needed. FOLLOW UP Return in about 3 months (around 05/24/2024) for FU DM . And based on test results for CTS. Appropriate medications prescribed and pt instructed in risks , benefits and side effects. Appropriate patient instructions provided . See details in AVS Medications and options explained to include common side effects. Understanding of medications, course, diagnosis, and expectations were expressed by patient/guardian. Pt advised to call my office in one week if not contacted with any ordered test results. KD Hoffman 03/07/2024 [facility] AT [address] [address] Some of this encounter may have been transcribed using [employer]cue Speaking Thumb Arcade voicerecognition without a human police superintendent. This report may or may not have been adjusted for typographical or medical and syntax errors. documented in this encounter Miscellaneous Notes * Result Encounter Note - Luba Vuong ANP - 03/08/2024 7:08 AM CDT Thyroid level is normal as are other labs. No concerns to cause her symptoms. Continue with wearing splint every night, medication prescription and the stretches. Get testing asplanned. * Patient Instructions - Luba Vuong ANP - 03/07/2024 11:30 AM CDT Images from the original note were not included. For the Left hand, contact [facility] for the left hand pain. Start daily meloxicam 7.5 mg for inflammation hand. Exercises as below. Wrist splint nightly on Left side. EMG testing ordered. Central Test Scheduling will be contacting you by phone to schedule your test.If you have not received a call within two business days, please call [phone] or , Thursday through Thursday between 8 a.m. and 5 p.m. to schedule your test. Carpal Tunnel Syndrome: Exercises Introduction Here are some examples of exercises for you to try. The exercises may be suggested for a condition or for rehabilitation. Start each exercise slowly. Ease off the exercises if you start to have pain. You will be told when to start these exercises and which ones will work best for you. Warm-up stretches When you no longer have pain or numbness, you can do exercises to help prevent carpal tunnel syndrome from coming back. Do not do any stretch or movement that is uncomfortable or painful. Rotate your wrist up, down, and from side to side. Repeat 4 times. Stretch your fingers far apart. Relax them, and then stretch them again. Repeat 4 times. Stretch your thumb by pulling it back gently, holding it, and then releasing it. Repeat 4 times. How to do the exercises Prayer stretch Put your palms together in front of your chest just below your chin. Slowly lower your hands toward your waistline, keeping your hands close to your stomach and your palms together. You will feel a mild to medium stretch under your forearms. Hold for at least 15 to 30 seconds. Repeat 2 to 4 times. Wrist flexor stretch Extend your affected arm in front of you with your palm facing down. Bend back your wrist on your affected arm, pointing your fingers up. With your other hand, gently bend your wrist farther until you feel a mild to medium stretch in your forearm. Hold for at least 15 to 30 seconds. Repeat 2 to 4 times. Repeat steps 1 through 5. But this time extend your affected arm in front of you with your palm facing up. Then bend back your wrist, pointing your fingers down. It's a good idea to repeat these steps with your other arm. Wrist extensor stretch Extend the arm with the affected wrist in front of you and point your fingers toward the floor. With your other hand, gently bend your wrist farther until you feel a mild to moderate stretch in your forearm. Hold the stretch for at least 15 to 30 seconds. Repeat 2 to 4 times. It's a good idea to repeat these steps with your other wrist. Follow-up care is a barreto part of your treatment and safety. Be sure to make and go to all appointments, and call your doctor if you are having problems. It's also a good idea to know your test resultsand keep a list of the medicines you take. Current as of: January 05, 2023 Content Version: 14.1 ?? [id number] [employer]. Care instructions adapted under license by your healthcare professional. If you have questions about a medical condition or this instruction, always ask your healthcare professional. These instructions may not represent the values of this healthcare organization. [employer] disclaims any warranty or liability for your use of this information. documented in this encounter Plan of Treatment Upcoming Encounters Date Type Department Care Team (Late st Contact Info) Description 06/20/2024 9:30 AM SURGICAL ELASTIC KNITTER Office Visit [facility] Orth[facility] at the [facility] [address] [place] [address] [place] [address] [place] [address] 10/27/2024 2:45 PM CDT Office Visit [facility] [address] [place] [phone] Bebo Benites MD [address] [facility] [address] [place] [address] Scheduled Orders Name Type Priority Associated Diagnoses Orde r Schedule EMG WITH NERVE CONDUCTION Neurology Routine Numbness and tingling in left hand 1 Occurrences starting 03/07/2024 until 03/07/2025 documented as of this encounter Procedures Procedure Name Priority Date/Time Associated Diagnosis Comments TSH REFLEXIVE Routine 03/07/2024 11:46 AM CDT Numbness and tingling in left hand CBC WITH DIFFERENTIAL Routine 03/07/2024 11:46 AM CDT Numbness and tingling in left hand MAGNESIUM LEVEL Routine 03/07/2024 11:46 AM CDT Numbness and tingling in left hand COMPREHENSIVE METABOLIC PANEL Routine 03/07/2024 11:46 AM CDT Numbness and tingling in left hand documented in this encounter Results * MAGNESIUM LEVEL (03/07/2024 11:46 AM CDT) MAGNESIUM 1.9 1.5 - 2.5 mg/dL E[facility] [employer] CommunicationsJean Will Comment: Test Performed at: [facility] [place] [address] [place] ??[id number] Molina Pascual Blood 03/07/2024 11:4 6 AM CDT 03/08/2024 12:59 AM CDT Luba Lakshmi Yevgeniy [facility] CHEMISTRY ORDERABLES [facility] [phone] [facility] [place] [address] [place] [address] * COMPREHENSIVE METABOLIC PANEL (03/07/2024 11:46 AM CDT) GLUCOSE 82 65 - 99 mg/dL E[facility] [employer] Will Comment: ? Fasting reference interval BUN 12 7 - 25 mg/dL [facility] [employer] [employer] Will CREATININE 0.64 0.50 - 0.97 mg/dL [facility] [employer]S oneyda Will GFR 116 > OR = 60 mL/min/1. 73m2 [facility] [employer]Joni Will BUN/CREAT RATIO SEE NOTE: 6 (calc) [facility] [employer] one[facility] Will Comment: ?? Not Reported: BUN and Creatinine are within ?? reference range. ? SODIUM 136 135 - 146 mmol/L [facility] [employer] one[facility] Will POTASSIUM 4.0 3.5 - 5.3 mmol/L Ewa Shahid-S oneyda Will CHLORIDE 102 98 - 110 mmol/L [facility] [employer] one[facility] Will CO2 24 20 - 32 mmol/L E[facility] Som[facility] CommunicationsJorgeS oneyda Will CALCIUM 9.5 8.6 - 10.2 mg/dL Ewa Will TOTAL PROTEIN 7.5 6.1 - 8.1 g/dL [facility] [employer] one[facility]da Will ALBUMIN 4.7 3.6 - 5.1 g/dL [facility] GLOBULIN 2.8 1.9 - 3.7 g/dL (calc) [facility] Will ALBUMIN/GLOBULIN RATIO 1.7 1.0 - 2.5 (calc) [facility] [employer] Will BILIRUBIN TOTAL 0.4 0.2 - 1.2 mg/dL [facility] [employer]era CommunicationsS oneyda Will ALKALINE PHOSPHATASE 68 31 - 125 U/L [facility] [employer] [employer]S oneyda Will AST 13 10 - 30 U/L [facility] [employer] [employer]S oneyda Will ALT 22 6 - 29 U/L [facility] [employer] [employer]S oneyda Will Comment: Test Performed at: [place] [address] [place] ??[phone] Molina Pascual Blood 03/07/2024 11:4 6 AM CDT 03/08/2024 12:59 AM CDT Luba Vuong [facility] CHEMISTRY ORDERABLES [facility] [phone] [place] [address] [place] [address] * (ABNORMAL) CBC WITH DIFFERENTIAL (03/07/2024 11:46 AM CDT) WBC 7.5 3.8 - 10.8 Thousand/ uL [facility] [employer]Joni Will RBC 4.60 3.80 - 5.10 Million/u L [facility] Will HEMOGLOBIN 14.4 11.7 - 15.5 g/dL [facility] [employer]S oneyda Suman HEMATOCRIT 45.3(H) 35.0 - 45.0 % [facility] Suman MCV 98.5 80.0 - 100.0 fL [facility] Will MCH 31.3 27.0 - 33.0 pg [facility] Will MCHC 31.8(L) 32.0 - 36.0 g/dL [facility] Will RDW 13.2 11.0 - 15.0 % [facility] Will PLATELETS 295 140 - 400 Thousand/ uL [facility] [employer]S oneyda Will MPV 9.8 7.5 - 12.5 fL [facility] [employer] one[facility]da Will NEUTROPHIL ABSOLUTE 3,915 1,500 - 7,800 cells/uL [facility]Joni Will LYMPHOCYTE ABSOLUTE 2,663 850 - 3,900 cells/uL [facility]oni Will MONOCYTE ABSOLUTE 525 200 - 950 cells/uL [facility]oni Will EOSINOPHIL ABSOLUTE 368 15 - 500 cells/uL [facility]Joni Will BASOPHILS ABSOLUTE 30 0 - 200 cells/uL [facility] Will NEUTROPHIL 52.2 % [facility] Will LYMPHOCYTES 35.5 % Ewa Will MONOCYTE 7.0 % [facility]Joni Will EOSINOPHILS 4.9 % [facility]Joni Will BASOPHILS 0.4 % [facility] Shahid-S oneyda Will Comment: Test Performed at: [place] [address] [place] ??[phone] Molina Pascual Blood 03/07/2024 11:4 6 AM CDT 03/08/2024 12:59 AM CDT Luba Vuong ANP HEMATOLOGY ORDERABLE S [facility] [phone] [facility] [place] [address] [place] [address] * TSH REFLEXIVE (03/07/2024 11:46 AM CDT) TSH 2.79 mIU/L Ewa [employer] CommunicationsJean Will Comment: ?Reference Range ?> or = 20 Years ??0.40-4.50 ? Ranges ?First trimester ?0.26-2.66 ?Second trimester ?? 0.55-2.73 ?Third trimester ?0.43-2.91 Test Performed at: [facility] [place] [address] [place] ??[id number] Molina Pascual Blood 03/07/2024 11:4 6 AM CDT 03/08/2024 12:59 AM CDT Luba Lakshmi Yevgeniy ANP CHEMISTRY ORDERABLES [facility] [phone] [place] [address] [place] [address] documented in this encounter Visit Diagnoses Diagnosis Numbness and tingling in left hand- Primary Disturbance of skin sensation Pain in right buttock Mylagia and myositis, unspecified Mild intermittent asthma without complication Unspecified asthma Nightmares associated with chronic post-traumatic stress disorder documented in this encounter Additional Health Concerns Assessment Noted Time PHQ-9 Depression Total Score: 4 08/21/19 24 1:00 PM SURGICAL ELASTIC KNITTER documented as of this encounter Care Teams Daycare Worker Relationship Specialty Start Date End Date Bijal Wolfe MD [address] [place] [phone] PCP - General Internal Medicine 12/14/23 documented as of this encounter
--- OUTSIDE RECORDS SUMMARY | 2024-06-08 20:24 | XMS_ITS | Encounter Summary ---
Author Organization [facility] Address [address] [place] [address] Care Team Providers Care Cooking Chef Name Role Phone Elma Magaña MD Primary Care Provider [phone] Reason for Visit * Reason Comments Medication Refill Encounter Details Date Type Department Care Team (Latest Contact Info) Description 07/08/2023 2:30 PM FIRE MARSHAL REFINERY Procedure visit [facility] at Work [employer] [place] [address] [phone] Issue of repeat prescription for medication (Primary [...] encounter Progress Notes * Ness Kidd - 07/08/2023 2:47 PM CST Bupropion xl 300 mg TAB #30 (1 bottle) MARSHAL REFINERY documented in this encounter Plan of Treatment Upcoming Encounters Date Type Department Care Team (Late st Contact Info) Description 06/20/2024 9:30 AM FIRE MARSHAL REFINERY Office Visit [facility] Orthopedic Surgery at the [facility] [address] [facility] [address] [place] [address] [place] [address] [place] [address] 10/27/2024 2:45 PM CDT Office Visit [facility] Gastroenterology [place] [address] [place] [address] Bebo Benites MD [address] [facility] [address] [place] [address] documented as of this encounter Visit Diagnoses Diagnosis Issue of repeat prescription for medication- Primary Issue of repeat prescriptions documented in this encounter Additional Health Concerns Assessment Noted Time PHQ-9 Depression Total Score: 3 07/04/19 23 9:00 AM FIRE MARSHAL REFINERY documented as of this encounter Care Teams Cooking Chef Relationship Specialty Start Date End Date Elma Magaña MD [address] [place] [phone] PCP - General Family Practice 12/09/21 12/13/23 documented as of this encounter
--- OUTSIDE RECORDS SUMMARY | 2024-06-08 20:26 | XMS_ITS | Encounter Summary ---
Author Organization [facility] Address [address] [facility] Attn: [place] [address] Care Team Providers Care Increment Manager Name Role Phone Francis Pereyra MD Primary Care Provider Unawalter ilmary Encounter Details Date Type Department Care Team (Latest Contact Info) Description 08/09/2019 Travel Social History Tobacco Use Types Packs/Day [...] st Contact Info) Description 06/20/2024 9:30 AM BAKE ROOM WORKER Office Visit [facility] Orthopedic Surgery at the [facility] [address] [facility] [address] [place] [address] [place] [address] [place] [address] 10/27/2024 2:45 PM CDT Office Visit [facility] Gastroenterology [facility] [address] [address] [place] [address] Bebo Benites MD [address] [facility] [facility] [address] [place] [address] documented as of this encounter Visit Diagnoses Not on filedocumented in this encounter Additional Health Concerns Assessment Noted Time PHQ-9 Depression Total Score: 6 07/08/19 19 9:00 AM BAKE ROOM WORKER documented as of this encounter Care Teams Increment Manager Relationship Specialty Start Date End Date Francis Pereyra MD PCP - General Family Practice 02/08/18 12/08/21 documented as of this encounter
--- OUTSIDE RECORDS SUMMARY | 2024-06-08 20:26 | XMS_ITS | Encounter Summary ---
Author Organization [facility] Address [address] [place] [address] Care Team Providers Care Window Shade Cutter And Mounter Name Role Phone Francis Pereyra MD Primary Care Provider Unava ilable Reason for Visit * Reason Comments Establish Care gallbladder * Eval and Treat (2-4 Days) - Closed Specialty Diagnoses / Procedures Referred By Contac t Referred To Contact Surgery / General Surgery Diagnoses Abnormal findings on diagnostic imaging of gall bladder Tessa Su, MICHAEL [address] [facility] [address] [place] [address] [place] [address] [address] Referral ID Status Reason Start Date Expiration Date V isits Requested Visits Authorized [id number] Closed CRS To Schedule (STL) 05/25/2019 05/24/2020 1 1 Encounter Details Date Type Department Care Team (Late st Contact Info) Description 05/30/2019 12:30 PM EDGE BRUSHER Office Visit [facility] Surgical Spec [place] [address] [facility] [address] [place] [address] [place] [phone] [address] Biliary dyskinesia (Primary Dx); Eosinophilic esophagitis Social History Tobacco Use Types Packs/Day Years [...] Sign Reading Time Taken Comments Blood Pressure 140/112 05/30/2019 12:28 PM EDGE BRUSHER Pulse 96 05/30/2019 12:28 PM EDGE BRUSHER Temperature - - Respiratory Rate - - Oxygen Saturation - - Inhaled Oxygen Concentration - - Weight 113.9 kg (251 lb) 05/30/2019 12:28 PM EDGE BRUSHER Height 165.1 cm (5' 5 ) 05/30/2019 12:28 PM EDGE BRUSHER Body Mass Index 41.77 05/30/2019 12:28 PM EDGE BRUSHER documented in this encounter Progress Notes * Alma Rosa Todd MD - 05/30/2019 12:31 PM CST Patient: Lis Phelan / 34 y.o. / female : 1985 Assessment: Patient Active Problem List Diagnosis Code ??? Mild intermittent asthma without complication J45.20 ??? Recurrent major depressive disorder, in partial remission F33.41 ??? Type 2 diabetes mellitus without complication, without long-term current use of insulin E11.9 ??? Hyperlipidemia E78.5 ??? Morbid obesity with body mass index of 40.0-49.9 E66.01 ??? Dysphagia R13.10 ??? Microalbuminuria R80.9 Biliary dyskinesia EF25%. Some sxs of epigastric/RUQ pain, intermittent, not associated with meals. Eosinophilic esophagitis, just started treatment. Plan: Because she has just been diagnosed with eosinophilic esophagitis, I do think that she needs to have treatment for 6 to 8 weeks to see what her symptoms do. If she continues to have symptoms of rightupper quadrant pain even after 6 to 8 weeks of treatment for the eosinophilic esophagitis, I can see her back to discuss cholecystectomy. Her symptoms are classic for colic, is not associated with meals. She will see me back in 6 to 8 weeks if she is still having significant symptoms. Chief Complaint: abdominal pain History of Present Illness: Lis Phelan is a 34 y.o. year-old female who presents with a several year history of abdominal pain. The pain is in the RUQ and epigastric area, sharp, intermittent, with radiation to the back. Attacks last from 30 min to several hours. 8/10 severity. No f/c. No n/v. No d/c. No acholic stools ordark urine. nothing makes the pain worse. Nothing makes the pain better. GB US normal (per pt, has had multiple US in past at OSH). HIDA with EF of 25%. Ten point ROS complete. Please refer to ROS for details. Past Medical Hx: Past Medical History: Diagnosis Date ??? Arthritis ??? Asthma ??? Depression ??? Diabetes mellitus ??? Difficult intravenous access VERY hard IV stick use requests ultrasound ??? GERD (gastroesophageal reflux disease) ??? Headache ??? History of shingles ??? HTN (hypertension) ??? Hyperlipidemia Past Surgical Hx: Past Surgical History: Procedure Laterality Date ??? HX GASTROSCHISIS CLOSURE ??? HX SURGICAL OTHER 04/2004 adhesion removed ??? [place] ESOPHAGOGASTRODUODENOSCOPY TRANSORAL DIAGNOSTIC N/A 05/17/2019 ESOPHAGOGASTRODUODENOSCOPY performed by Jena Cerda MD at [facility] Home Medications: Current Outpatient Medications Medication Sig Dispense Refill ??? pantoprazole (PROTONIX) 40 mg Tablet, Delayed Release (E.C.) Take 1 Tablet (40 mg) by mouth daily. 60 Tablet 2 ??? albuterol HFA 90 mcg inhaler Take 1-2 Puffs by inhalation every 4 hours as needed for Shortnessof Breath or Wheezing. 6.7 Gram 3 ??? etonogestrel (IMPLANON SDRM) by Subdermal route. No current facility-administered medications for this visit. Allergies: Allergies Allergen Reactions ??? Chantix [Varenicline] Anaphylaxis ??? Metronidazole Nausea and Vomiting Other reaction(s): Vomiting ??? Demerol [Meperidine] Swelling ??? Tramadol Hives Family Hx: Family History Problem Relation Name Age of Onset ??? Lung Cancer Father ??? Stroke Father ??? Hypertension Mother ??? High Cholesterol Mother ??? Unknown Brother ??? Unknown Maternal Grandmother ??? Unknown Maternal Grandfather ??? Diabetes Paternal Grandmother ??? Kidney Disease Paternal Grandfather ??? No Known Problems Daughter ??? No Known Problems Son ??? Colon Cancer Neg Hx Social Hx: Social History Socioeconomic History ??? Marital status: Spouse name: Not on file ??? Number of children: 2 ??? Years of education: Not on file ??? Highest education level: Not on file Occupational History Employer: [employer] Social Needs ??? Financial resource strain: Not on file ??? Food insecurity: Worry: Not on file Inability: Not on file ??? Transportation needs: Medical: Not on file Non-medical: Not on file Tobacco Use ??? Smoking status: Former Smoker Last attempt to quit: 03/02/2016 Years since quittin.2 ??? Smokeless tobacco: Never Used Substance and Sexual Activity ??? Alcohol use: No ??? Drug use: No ??? Sexual activity: Not on file Lifestyle ??? Physical activity: Days per week: Not on file Minutes per session: Not on file ??? Stress: Not on file Relationships ??? Social connections: Talks on phone: Not on file Gets together: Not on file Attends mosque service: Not on file Active member of [...] Social History Narrative ??? 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 Review of Systems: Constitutional: negative for fevers, chills, anorexia, weight loss. Skin: no new rashes, no skin lesions HEENT: negative for double vision, hearing loss, epistaxis, sore throat Respiratory: negative for cough, SOB or hemoptysis. Cardiovascular: negative for chest pain, VIVAS, orthopnea Gastrointestinal: negative for blood in stool, constipation, diarrhea Genitourinary: negative for dysuria and hematuria. Musculoskeletal: negative for myalgias, arthralgias Hematologic/lymphatic: negative for easy bruising and bleeding Neurological: negative for dizziness, double vision, headache Psychiatric: negative for anxiety and depression Immunological: Denies hx of TB, Hepatitis, HIV Endocrine: No heat or cold intolerance, no polyuria or polydipsia Physical Exam: BP (!) 140/112 Pulse 96 Ht 5' 5 (1.651 m) Wt 113.9 kg (251 lb) BMI 41.77 kg/m?? General appearance: Well developed, well nourished female in no acute distress. Patient is awake, alert, oriented, and answers questions appropriately. Head: atraumatic, normocephalic, without obvious abnormality Eyes: conjunctivae/corneas clear, sclera non icteric Neck: trachea is midline Lungs: normal respiratory effort Heart: normal rate Abdomen: Soft, non-distended. non-tender in RUQ without guarding or rebound Extremities: extremities grossly normal, no cyanosis or edema Neurologic: Grossly normal, no focal deficits. Musculoskeletal: no obvious deformity or swelling Labs: Lab Results Component Value Date/Time WBC 8.3 08/23/2018 08:17 AM WBC 8.0 10/07/2017 09:36 AM HEMOGLOBIN 13.4 08/23/2018 08:17 AM HEMOGLOBIN 13.7 10/07/2017 09:36 AM HEMATOCRIT 39.5 08/23/2018 08:17 AM HEMATOCRIT 40.5 10/07/2017 09:36 AM PLATELETS 319 08/23/2018 08:17 AM PLATELETS 309 10/07/2017 09:36 AM MCV 89 08/23/2018 08:17 AM MCV 90 10/07/2017 09:36 AM Lab Results Component Value Date/Time SODIUM 141 08/23/2018 08:17 AM SODIUM 142 10/07/2017 09:36 AM POTASSIUM 5.0 08/23/2018 08:17 AM POTASSIUM 4.5 10/07/2017 09:36 AM CHLORIDE 108 (H) 08/23/2018 08:17 AM CHLORIDE 104 10/07/2017 09:36 AM CO2 14 (L) 08/23/2018 08:17 AM CO2 15 (L) 10/07/2017 09:36 AM CALCIUM 9.4 08/23/2018 08:17 AM CALCIUM 9.4 10/07/2017 09:36 AM BUN 12 08/23/2018 08:17 AM BUN 13 10/07/2017 09:36 AM CREATININE 0.57 08/23/2018 08:17 AM CREATININE 0.60 04/07/2017 07:05 AM GLUCOSE 120 (A) 11/05/2018 TOTAL PROTEIN 7.4 08/23/2018 08:17 AM TOTAL PROTEIN 7.6 04/07/2017 07:05 AM ALBUMIN 4.4 08/23/2018 08:17 AM ALBUMIN 4.6 10/07/2017 09:36 AM BILIRUBIN TOTAL 0.4 08/23/2018 08:17 AM ALKALINE PHOSPHATASE 74 08/23/2018 08:17 AM ALKALINE PHOSPHATASE 74 10/07/2017 09:36 AM AST 29 08/23/2018 08:17 AM ALT 25 08/23/2018 08:17 AM ANION GAP 16 04/07/2017 07:05 AM BUN/CREAT RATIO 21 08/23/2018 08:17 AM Signed: Alma Rosa Todd MD 05/30/2019, 12:31 PM BRUSHER documented in this encounter Plan of Treatment Upcoming Encounters Date Type Department Care Team (Late st Contact Info) Description 06/20/2024 9:30 AM EDGE BRUSHER Office Visit [facility] Orthopedic Surgery at the [facility] Medicine [address] [facility] [address] [place] [address] [place] [address] [place] [address] 10/27/2024 2:45 PM CDT Office Visit [facility] Gastroenterology [facility] [address] [facility] [address] [place] [phone] Bebo Benites MD [address] [facility] [address] [place] [address] Scheduled Referrals Name Type Priority Associated Diagnoses Orde r Schedule AMB REFERRAL TO GENERAL SURGERY Outpatient Referral Routine Abnormal findings on diagnostic imaging of gall bladder Ordered: 05/25/2019 documented as of this encounter Visit Diagnoses Diagnosis Biliary dyskinesia- Primary Other specified disorder of gallbladder Eosinophilic esophagitis documented in this encounter Additional Health Concerns Assessment Noted Time PHQ-9 Depression Total Score: 6 07/08/19 19 9:00 AM EDGE BRUSHER documented as of this encounter Care Teams Window Shade Cutter And Mounter Relationship Specialty Start Date End Date Francis Pereyra MD PCP - General Family Practice 02/08/18 12/08/21 documented as of this encounter
--- OUTSIDE RECORDS SUMMARY | 2024-06-08 20:26 | XMS_ITS | Encounter Summary ---
Author Organization [facility] Address [address] [facility] Attn: [place] [address] Care Team Providers Care Generator Operator Name Role Phone Francis Pereyra MD Primary Care Provider Rishi georges Encounter Details Date Type Department Care Team (Latest Contact Info) Description 12/02/2019 Travel Social History Tobacco Use Types Packs/Day [...] have Coronavirus / COVID-19? No / Unsure 12/02/2019 10:17 AM CDT documented as of this encounter Plan of Treatment Upcoming Encounters Date Type Department Care Team (Late st Contact Info) Description 06/20/2024 9:30 AM PROCESS DEVELOPMENT ENGINEER Office Visit [facility] Orthopedic Surgery at the [facility] Medicine [address] [facility] [address] [place] [address] [place] [address] [place] [address] 10/27/2024 2:45 PM CDT Office Visit [facility] Gastroenterology [facility] [address] [facility] [address] [place] [address] Bebo Benites MD [address] [address] documented as of this encounter Visit Diagnoses Not on filedocumented in this encounter Additional Health Concerns Assessment Noted Time PHQ-9 Depression Total Score: 6 08/29/19 20 10:00 AM CDT documented as of this encounter Care Teams Generator Operator Relationship Specialty Start Date End Date Francis Pereyra MD PCP - General Family Practice 02/08/18 12/08/21 documented as of this encounter
== END 2024-06-04 15:39 | disposition home or self-care (01) ==
PROVIDERS: Emergency Provider Nurse Practitioner Family
DX: S60.221A Contusion of right hand, initial encounter (principal); X58.XXXA Exposure to other specified factors, initial encounter; E11.9 Type 2 diabetes mellitus without complications; Z79.84 Long term (current) use of oral hypoglycemic drugs; I10 Essential (primary) hypertension; E78.00 Pure hypercholesterolemia, unspecified; J45.909 Unspecified asthma, uncomplicated; Z87.891 Personal history of nicotine dependence
CPT/HCPCS: 73130; 99213; G0463